=== PATIENT | female | born 1935 | race Caucasian/White ===

== ENCOUNTER → 2017-10-18 05:46 | Outpatient (REF) | payer MEDICARE, OTHER, SELFPAY | END | disposition home or self-care (01) | LOC: CVS 05:46 | PROVIDERS: Family Provider Family Medicine; PCP Family Medicine; Visit Provider Internal Medicine Cardiovascular Disease | DX: I47.1 Supraventricular tachycardia (principal); E78.5 Hyperlipidemia, unspecified; R55 Syncope and collapse | CPT/HCPCS: 93270 ==

== ENCOUNTER → 2018-03-06 15:02 | Outpatient (CLI) | payer MEDICARE, OTHER, SELFPAY ==
[2018-03-06 18:15] LABS: ALB/GLOB Ratio 0.8 RATIO (0.9-2.4); AST(SGOT) 15 U/L (15-37); Alanine Aminotransfer ALT/SGPT 19 U/L (13-56); Albumin, Serum 3.2 g/dL (3.2-5.0); Alkaline Phosphatase 104 U/L (45-117); Anion Gap 9 (5-15); BUN 20 mg/dL (7-18); BUN/Creat Ratio 25.6 RATIO (10-20); Calcium,Total 8.8 mg/dL (8.5-10.1); Chloride 105 mmol/L (98-107); Creatinine, Serum 0.78 mg/dL (0.55-1.02); EST Glomerular Filtration Rate 75 mL/min (>60); Est Glom Filt Rate - Afr Amer 91 mL/min (>60); Globulin 4.1 g/dL (2.2-4.2); Glucose 84 mg/dL (74-106); Potassium 4.3 mmol/L (3.5-5.1); Protein, Total 7.3 g/dL (6.4-8.2); Sodium Level 140 mmol/L (136-145); Thyroid Stim Hormone (TSH) 0.18 uIU/mL (0.358-3.74)
[2018-03-07 11:59] LABS: Vitamin D,25 Hydroxy 37.8 ng/mL (29.95-100.01)
== END ==
PROVIDERS: Family Provider Family Medicine; PCP Family Medicine; Visit Provider Internal Medicine Endocrinology, Diabetes & Metabolism
DX: E03.8 Other specified hypothyroidism (principal); E55.9 Vitamin D deficiency, unspecified
CPT/HCPCS: 36415; 80053; 82306; 84443

== ENCOUNTER → 2018-05-06 16:15 | Outpatient (CLI) | payer MEDICARE, OTHER, SELFPAY ==
--- NOTE | 2018-05-06 16:15 | DT_ITS ---
This patient was seen during an EMR downtime May 05, 2018 - May 12, 2018. This patient may have a combination of paper and electronic documentation or all paper documentation. All documentation is viewable within the e-chart portion of [facility] for each patient visit.
[2018-05-12 20:27] LABS: T4 Free Direct 1.04 ng/dL (0.76-1.46); Thyroid Stim Hormone (TSH) 1.36 uIU/mL (0.358-3.74)
== END ==
PROVIDERS: Family Provider Family Medicine; PCP Family Medicine; Visit Provider Internal Medicine Endocrinology, Diabetes & Metabolism
DX: E03.8 Other specified hypothyroidism (principal)
CPT/HCPCS: 36415; 84439; 84443

== ENCOUNTER → 2018-06-14 08:58 | Outpatient (CLI) | payer MEDICARE, OTHER, SELFPAY ==
--- NOTE | 2018-06-14 09:04 | CT_ITS ---
STUDY: CT MAXILLOFACIAL SINUSES REASON FOR EXAM: Female, 82 years old. Sinusitis RADIATION DOSAGE (If Supplied By Facility): CTDIvol = ( 29.38 ) mGy, DLP = ( 349.11 ) mGycm TECHNIQUE: The patient was scanned in a multi detector CT scanner. High resolution axial imaging was performed without the administration of intravenous contrast material. Sagittal and coronal images were reconstructed. Individualized dose optimization techniques were used for this CT. COMPARISON: None. FINDINGS: FRONTAL SINUSES: Clear. ETHMOIDAL SINUSES: There is a single small mucous retention cyst of the mid left ethmoid sinus with minimal ethmoid mucoperiosteal thickening. MAXILLARY SINUSES: There is mild mucoperiosteal thickening of the maxillary sinuses. SPHENOIDAL SINUSES: Mild mucoperiosteal thickening with some bubbly mucoid material in the left sphenoid sinus. The mastoid air cells and middle ear cavities are clear. Craniofacial osseous structures unremarkable. No acute intracranial process is evident in limited evaluation. The extra cranial soft tissues including orbital contents appear normal. CT/Sinus/Facial Bone IMPRESSION: Mild chronic paranasal sinus disease. Electronically Signed: Jose Wallace, at 10:55 EDT Tel , Service support ,
--- NOTE | 2018-06-14 09:04 | RAD_ITS ---
STUDY: X-RAY CHEST REASON FOR EXAM: Female, 82 years old. Cough TECHNIQUE: PA and lateral chest COMPARISON: 07/31/2017 FINDINGS: Pulmonary features of COPD/emphysema, stable. Lungs otherwise clear. No effusion or pneumothorax. Implanted cardiac monitoring device. No cardiomegaly. Normal mediastinal silhouette, toy and pleural margins. No acute osseous or upper abdominal process. Mild kyphoscoliosis. Osteopenia. 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 Electronically Signed: Jose Wallace, at 15:55 EDT Tel , Service support ,
== END ==
PROVIDERS: Family Provider Family Medicine; PCP Family Medicine; Visit Provider Specialist
DX: J32.9 Chronic sinusitis, unspecified (principal); J43.9 Emphysema, unspecified
CPT/HCPCS: 70486; 71046

== ENCOUNTER → 2018-06-20 08:14 | Outpatient (CLI) | payer MEDICARE, OTHER, SELFPAY ==
--- NOTE | 2018-06-20 08:16 | BI_ITS ---
MAMMOGRAPHY - BILATERAL SCREENING REASON FOR EXAM: Female, 82 years old. Routine annual screening examination. PERTINENT HISTORY: Grandmother with breast cancer. TECHNIQUE: Digital bilateral breast driss (3D mammographic acquisition) in the CC and MLO projections. 2-D mediolateral oblique (MLO) and craniocaudad (CC) views of both breasts were obtained. CAD: Full Field Digital Mammography with Computer Added Detection was performed. COMPARISON: Comparison is made with prior study dated June 18, 2017 and June 11, 2016. FINDINGS: Breast Composition: The breasts are almost entirely fatty. There are no dominant masses or suspicious calcifications. Stable asymmetry where more breast tissue is seen in the retroareolar region of the right breast as compared to the left side. This is unchanged. A loop recording device is seen along the deep inferior medial portion of the left breast. A tissue clip marker is once again seen in the superior lateral aspect of the left breast. No other significant abnormalities are identified. There has been no significant change since the prior study. BI/SCREENING MAMM (CAD), BILAT IMPRESSION: Stable bilateral screening mammogram. Yearly follow-up mammogram recommended. (A) ASSESSMENT CATEGORY: BIRADS Category 2: Benign. A letter regarding these results will be sent to the patient by the facility within 30 days. Approximately 10% of breast cancers are not detected by mammography. A normal mammogram should not delay biopsy of a clinically suspicious abnormality. [id number] Electronically Signed: Simeon Tipton MD at 10:48 EDT Tel [phone], Service support ,
== END ==
PROVIDERS: Family Provider Family Medicine; PCP Family Medicine; Visit Provider Family Medicine
DX: Z12.31 Encounter for screening mammogram for malignant neoplasm of breast (principal)
CPT/HCPCS: 77063; 77067

== ENCOUNTER 2018-10-14 06:14 | Day surgery (SDC) | payer MEDICARE, OTHER, SELFPAY ==
[2018-10-14] VITALS (7 sets, daily range): BP systolic 118–142; BP diastolic 64–87; PULSE 18–84; RESP 14–18; TEMP 36.4–36.8; O2SAT 96–100; BMI 26.2
--- NOTE | 2018-10-14 07:53 | OP.ENDO_ITS ---
Patient Name: Sachi Grace Procedure Date: 10/14/2018 7:31 AM Date of : 1935 Age: 83 Procedure: Colonoscopy Indications: High risk colon cancer surveillance: Personal history of colonic polyps, Family history of colon cancer in a first-degree relative Providers: Lon Tabares MD Referring MD: Lon Tabares MD Medicines: See the Anesthesia note for documentation of the administered medications Patient Profile: Last Colonoscopy: August 2013. Complications: No immediate complications. Procedure: Pre-Anesthesia Assessment: - Prior to the procedure, a History and Physical was performed, and patient medications and allergies were reviewed. The patient's tolerance of previous anesthesia was also reviewed. The risks and benefits of the procedure and the sedation options and risks were discussed with the patient. All questions were answered, and informed consent was obtained. Prior Anticoagulants: The patient has taken aspirin, last dose was day of procedure. ASA Grade Assessment: II - A patient with mild systemic disease. After reviewing the risks and benefits, the patient was deemed in satisfactory condition to undergo the procedure. After I obtained informed consent, the scope was passed under direct vision. Throughout the procedure, the patient's blood pressure, pulse, and oxygen saturations were monitored continuously. The pediatric colonoscope was introduced through the anus and advanced to the cecum, identified by appendiceal orifice and ileocecal valve. The colonoscopy was performed without difficulty. The patient tolerated the procedure well. The quality of the bowel preparation was good. The ileocecal valve was photographed. Scope In: 7:33:40 AM Scope Withdrawal Time 0 hours 5 minutes 58 seconds Scope Out: 7:43:59 AM Total Procedure Duration Time 0 hours 10 minutes 19 seconds Findings: Hemorrhoids were found on perianal exam. Multiple diverticula were found in the entire colon. The exam was otherwise without abnormality. Impression: - Hemorrhoids found on perianal exam. - Diverticulosis in the entire examined colon. - The examination was otherwise normal. - No specimens collected. Recommendation: - Discharge patient to home. - Resume previous diet. - Continue present medications. - Repeat colonoscopy in 5 years for surveillance. - Resume aspirin at prior dose today. Procedure Code(s): --- Professional --- 58308, Colonoscopy, flexible; diagnostic, including collection of specimen(s) by brushing or washing, when performed (separate procedure) Diagnosis Code(s): --- Professional --- Z86.010, Personal history of colonic polyps K64.9, Unspecified hemorrhoids Z80.0, Family history of malignant neoplasm of digestive organs K57.30, Diverticulosis of large intestine without perforation or abscess without bleeding CPT copyright 2017 [employer]. All rights reserved. The codes documented in this report are preliminary and upon motor and controls tester review may be revised to meet current compliance requirements. Lon Tabares MD 10/14/2018 7:53:20 AM This report has been signed electronically. Number of Addenda: 0 Note Initiated On: 10/14/2018 7:31 AM
== END 2018-10-14 08:27 | disposition home or self-care (01) ==
LOC: EN 06:15 → AC 06:16
PROVIDERS: Family Provider Family Medicine; PCP Family Medicine; Referring Provider Surgery; Visit Provider Surgery
PROC: 0DJD8ZZ Inspection of Lower Intestinal Tract, Via Natural or Artificial Opening Endoscopic (ICD-10-PCS; CPT 45378; principal; 2018-10-14 07:25)
DX: Z86.010 Personal history of colon polyps (principal); K57.30 Diverticulosis of large intestine without perforation or abscess without bleeding; K64.9 Unspecified hemorrhoids; Z80.0 Family history of malignant neoplasm of digestive organs; I47.1 Supraventricular tachycardia; E03.9 Hypothyroidism, unspecified; E78.2 Mixed hyperlipidemia; F41.9 Anxiety disorder, unspecified; Z90.49 Acquired absence of other specified parts of digestive tract; Z79.82 Long term (current) use of aspirin; Z79.899 Other long term (current) drug therapy
CPT/HCPCS: 45378; J7120

== ENCOUNTER 2019-05-15 09:15 | Day surgery (SDC) | payer MEDICARE, OTHER, SELFPAY ==
--- NOTE | 2019-05-15 09:22 | EKG12_ITS ---
Test Reason : PREOP Blood Pressure : / mmHG Vent. Rate : 072 BPM Atrial Rate : 072 BPM P-R Int : 216 ms QRS Dur : 084 ms QT Int : 400 ms P-R-T Axes : 067 045 053 degrees QTc Int : 438 ms Sinus rhythm with 1st degree A-V block Low voltage QRS Borderline ECG When compared with ECG of 09-MAY-2014 17:26, No significant change was found Confirmed by KATHLEEN HILL ([id number]), web editor EMILY DON ([id number]) on 05/18/2019 1:44:22 PM Referred By: Tony Ruffin Confirmed By:MITRA HILL
[2019-05-15 09:50] VITALS: BP 132/69; PULSE 70; RESP 16; TEMP 36.7; O2SAT 100; BMI 26.6
[2019-05-15 10:03] LABS: Anion Gap 7 (5-15); BUN 17 mg/dL (7-18); BUN/Creat Ratio 25.5 RATIO (10-20); Calcium,Total 9.2 mg/dL (8.5-10.1); Chloride 104 mmol/L (98-107); Creatinine, Serum 0.67 mg/dL (0.55-1.02); EST Glomerular Filtration Rate 90 mL/min (>60); Est Glom Filt Rate - Afr Amer 109 mL/min (>60); Estimated Creatinine Clearance 30.62 ml/min; Glucose 85 mg/dL (74-106); Potassium 3.9 mmol/L (3.5-5.1); Sodium Level 141 mmol/L (136-145)
--- NOTE | 2019-05-15 10:25 | CT_ITS ---
STUDY: CT MAXILLOFACIAL SINUSES REASON FOR EXAM: Female, 83 years old. Headache, facial pain RADIATION DOSAGE (If Supplied By Facility): CTDIvol = ( 33.06 ) mGy, DLP = ( 804.92 ) mGycm TECHNIQUE: The patient was scanned in a multi detector CT scanner. High resolution axial imaging was performed without the administration of intravenous contrast material. Sagittal and coronal images were reconstructed. Individualized dose optimization techniques were used for this CT. COMPARISON: 2011 FINDINGS: FRONTAL SINUSES: Normal aeration, without mucosal inflammatory disease. ETHMOIDAL SINUSES: Normal aeration, with moderate mucosal inflammatory disease MAXILLARY SINUSES: Normal aeration, without moderate mucosal inflammatory disease. SPHENOIDAL SINUSES: Normal aeration, without moderate mucosal inflammatory disease. There is patency of the bilateral maxillary infundibuli with normal uncinate processes, ethmoid bullae, and hiatus semilunaris. Normal bilateral middle turbinates. Normal bilateral inferior turbinates. Normal midline nasal septum. There is patency of the bilateral nasal airways. The visualized osseous structures are normal. The visualized bilateral orbital contents are normal. CT/Sinus/Facial Bone IMPRESSION: Diffuse mucosal thickening in the ethmoid, sphenoid, and maxillary sinuses. Electronically Signed: Chapin Jones MD at 11:54 EDT , Service support ,
--- NOTE | 2019-05-15 11:30 | ETH_PTH ---
PATIENT: MAIA PAYAN [place] [facility] [id number] AGE/SX: 83/F ROOM: RE05/15/[address]: Dr. Tony Ruffin MD : 1935 BED: DIS: 05/15/2019 SPEC #: [id number] RECD: 05/15/19 16:03 STATUS: GARTH ANALI #: [id number] MIRIAM: 05/15/19 11:[address]: Tony Ruffin DEPT: SURGICAL PATHOLOGY RECD BY: Cheng Ernst ENTERED: 05/18/19 10:11 SP TYPE: ETH TISS OTHR DR: Dr. Jesus Tabares III, MD Tissues: A - Ethmoid sinus, NOS B - Ethmoid sinus, NOS C - Ethmoid sinus, NOS Procedures: Decalcification bone/plaque Surgery Specimen Level IV HEADER OPERATION: Endoscopy with removal sphenoid sinus tissue, nasal sinus PRE-OP DIAGNOSIS: Chronic sphenoidal sinusitis; chronic ethmoidal sinusitis TISSUE SUBMITTED: A - Left sinus contents, B - Right sinus contents, C - Left and right sinus contents MICROSCOPIC DIAGNOSIS A. Left sinus contents: Blood, mucinous material, a few inflammatory cells and rare respiratory epithelial cells present. B. Right sinus contents: Fragments of respiratory mucosa with chronic inflammation, increased eosinophils and plasma cells, consistent with chronic sinusitis. Small fragment of bone present. C. Left and right sinus contents: Fragments of bone and respiratory mucosa with moderate chronic inflammation and increased plasma cells, consistent with chronic sinusitis. CE:bryan 05/21/19 MICROSCOPIC DESCRIPTION Slides are reviewed. GROSS DESCRIPTION A - Received in fixative is one container labeled with the patient's name and designated left sinus contents. The specimen consists of multiple irregular fragments of dark cortez soft tissue that in aggregate measure 5 x 3 x 3 cm. Top Waddy portions are submitted in four cassettes. B - Received in fixative is one container labeled with the patient's name and designated right sinus contents. The specimen consists of multiple irregular fragments of dark cortez soft tissue that in aggregate measure 8 x 3.5 x 2 cm. Top Waddy portions are submitted in two cassettes. C - Received in fixative is one container labeled with the patient's name and designated left and right sinus contents. The specimen consists of multiple irregular fragments of gritty cortez tissue that in aggregate measure 2 x 1 x 0.3 cm. The specimen is totally submitted in one cassette after decalcification. / AM:bryan 05/18/19 TC:3 CPT: 99195 x3, 78453
--- NOTE | 2019-05-15 13:12 | PCM.OPRPT ---
Problem List (1) Chronic maxillary sinusitis Status: Chronic (2) Chronic ethmoidal sinusitis Status: Chronic (3) Chronic sphenoidal sinusitis Status: Chronic (4) Decreased sense of taste Status: Chronic Report of Operation Date of Procedure: 05/15/19 Pre-Operative Diagnosis: Chronic sinusitis with polyposis and loss of sense of taste Post-Operative Diagnosis: same Surgery/Procedure Performed:: Bilateral endoscopic maxillary antrostomies, total ethmoidectomies, sphenoidotomies with removal of polyps Description of Surgical Findings:: Sachi is an 83-year-old female who presents with long-standing inability to taste food once it is placed in her mouth. She reports that she is able to smell normally. She is failed to have any improvement despite nasal steroids, saline rinses, and antibiotic therapy. Endoscopic evaluation showed large polyps from the posterior ethmoid and sphenoid sinuses which are felt to be contributing to the reduced airflow from the oral cavity resulting in her loss of sense of taste and the above procedures often hopes of improvement of these complaints. Procedure went as follows: The patient was identified in the preoperative holding and brought to the operating room, was placed under general anesthesia and intubated. When appropriate anesthesia was obtained, the navigational head gear was placed and confirmed to be operational in accordance with the manufacturing machine operator's directions. Pledgets soaked in a 50-50 mixture of oxymetazoline and 4% topical lidocaine were placed to decongest the nasal mucosa. These were then removed and beginning on the left side using a 0? endoscope the nasal cavity examined. The insertion of the middle turbinate and uncinate process was then injected with 1% lidocaine with 100,000 epinephrine for a total of 2 mL, and a similar injection was then carried on the contralateral side. Upon returning to the left side, the middle turbinate was medialized with a Geneva elevator. This allowed examination of the maxillary sinus ostia which was then probed with a double ball seeker. The uncinate process was then outfractured with a J curette and transected with a backbiting forceps. This was then removed with the microdebrider creating a wide maxillary antrostomy. The ethmoid bulla was then entered and a total ethmoidectomy was then carried out working posteriorly to anterior. There is no to be significant polyps posteriorly within the nasal cavity. Any polyps, scar, and mucous secretions were removed. The sphenoid sinus ostium was then identified and opened widely with any polyps, secretions, or other debris removed. Pledgets soaked in oxymetazoline were then placed for hemostasis and attention turned to the contralateral side. Similar procedure and findings were then carried out. Floseal hemostatic agent was then applied. An NG tube was then placed to decompress the stomach and the patient returned to anesthesia, revived and extubated having tolerated the procedure well. Type of Anesthesia:: General Anesthesiologist: Tony Vásquez Special Medications: none Specimen's removed: sinus contents and polyps Drains: none Estimated Blood Loss (mL): 300 mL Fluids Replaced: 800 mL Grafts/Implants Used: none - Complications none - Admit VTE Documentation VTE Present on Admission: No VTE Mechan Device Prophylaxis: SCD's VTE Pharm Prophylaxis ordered?: No
[2019-05-15 13:19] VITALS: BP 126/70; BP 132/69; PULSE 72; RESP 18; TEMP 35.9; O2SAT 99
--- NOTE | 2019-05-15 13:19 | DCINST_ITS ---
- Discharge Diagnoses Current Active Problems: Current Active and Chronic Problems (Last Reviewed 10/07/18 @ 14:16 by Nova Walter) Chronic maxillary sinusitis (Chronic) Chronic ethmoidal sinusitis (Chronic) Chronic sphenoidal sinusitis (Chronic) Decreased sense of taste (Chronic) You will use the following diet at home:: Regular Discharge Activity: Return to Normal Activity Call your doctor if your incision/area has: Sudden Increased Bleeding Call your doctor if you observe: Fever of 101 or Higher, Uncontrolled pain Allergies/Adverse Reactions: Allergies Sulfa (Sulfonamide Antibiotics) Allergy (Verified 05/13/19 15:46) Swelling codeine Adverse Reaction (Verified 05/13/19 15:46) Nausea hydrocodone bitartrate [From Vicodin] Adverse Reaction (Verified 05/13/19 15:46) Nausea oxycodone HCl [From Percocet] Adverse Reaction (Verified 05/13/19 15:46) Nausea tetracycline Adverse Reaction (Verified 05/13/19 15:46) Nausea/Vom/Diarrhea Dust & mold Adverse Reaction (Severe, Uncoded 10/14/18 06:31) Unknown Medications to take at Discharge RX: Acetaminophen [Tylenol] 500 mg PO Q4H PRN PRN 05/04/14 Albuterol Inhaler [Ventolin Hfa] 1 puff INHALATION Q4H PRN PRN 05/09/14 clonazepam 0.25 mg disintegrating tablet 0.25 mg PO DAILY tab 11/22/17 nortriptyline 25 mg capsule 30 mg PO QHS 11/22/17 vit C 250 mg-E 200 unit-zinc 40 mg-copper 1 bm-zhoffr-jhzhiz capsule 1 tab PO BID cap 11/22/17 fluorometholone 0.25 % eye drops,suspension 1 drp OPHTHALMIC Q6H PRN 01/31/18 levothyroxine 75 mcg tablet 75 mcg PO QDAY tab 01/31/18 polyethylene glycol 3350 17 gram/dose oral powder 17 g PO QDAY PRN 01/31/18 Mometasone Furoate [Asmanex 110 mcg Twisthaler] 110 mcg INHALATION DAILY 05/13/19 Primary Care Physician: Jesus Tabares III, MD [Primary Care Provider] - Test Results: Test results from this visit will be discussed in further detail at your follow- up appointment, if applicable. Please Follow Up With: Tony Ruffin MD When: 2 weeks
[2019-05-15 13:30] VITALS: BP 129/87; BP 132/69; PULSE 66; RESP 18; TEMP 36.1; O2SAT 96
[2019-05-15 13:44] VITALS: BP 114/80; BP 132/69; PULSE 67; RESP 18; TEMP 36.2; O2SAT 98
[2019-05-15 15:15] VITALS: BP 132/69; BP 139/57; PULSE 71; RESP 18; TEMP 36.4; O2SAT 100
[2019-05-15] MEDS: Acetaminophen 500 MG Tablet PO (15:47)
[2019-05-15 16:36] VITALS: BP 128/59; BP 132/69; PULSE 70; RESP 16; TEMP 36.6; O2SAT 100
== END 2019-05-15 16:38 | disposition home or self-care (01) ==
LOC: SDC 09:17 → AC 09:18
PROVIDERS: Family Provider Family Medicine; PCP Family Medicine; Referring Provider Otolaryngology; Visit Provider Otolaryngology
DX: J32.0 Chronic maxillary sinusitis (principal); J32.3 Chronic sphenoidal sinusitis; J32.2 Chronic ethmoidal sinusitis; J33.8 Other polyp of sinus; F41.9 Anxiety disorder, unspecified; R43.2 Parageusia; Z85.828 Personal history of other malignant neoplasm of skin
CPT/HCPCS: 31237; 31259; 70486; 80048; 88305; 88311; 93005; J7120; J2405

== ENCOUNTER → 2019-06-12 10:42 | Outpatient (CLI) | payer MEDICARE, OTHER, SELFPAY ==
[2019-05-15 09:50] VITALS: BMI 26.6
[2019-06-12 13:02] LABS: Anion Gap 6 (5-15); BUN 17 mg/dL (7-18); BUN/Creat Ratio 27.8 RATIO (10-20); Chloride 105 mmol/L (98-107); Creatinine, Serum 0.61 mg/dL (0.55-1.02); EST Glomerular Filtration Rate 99 mL/min (>60); Est Glom Filt Rate - Afr Amer 120 mL/min (>60); Glucose 77 mg/dL (74-106); Potassium 4.3 mmol/L (3.5-5.1); Sodium Level 138 mmol/L (136-145)
[2019-06-16 12:18] LABS: Nortriptyline Level 35 ng/mL (50-150)
== END ==
PROVIDERS: Family Provider Family Medicine; PCP Family Medicine; Referring Provider Psychiatry & Neurology Psychiatry; Visit Provider Psychiatry & Neurology Psychiatry
DX: R00.2 Palpitations (principal)
CPT/HCPCS: 36415; 80048; 80335

== ENCOUNTER → 2019-06-26 08:37 | Outpatient (CLI) | payer MEDICARE, OTHER, SELFPAY ==
--- NOTE | 2019-06-26 08:40 | BI_ITS ---
MAMMOGRAPHY - BILATERAL SCREENING 3-D TOMOSYNTHESIS REASON FOR EXAM: Female, 83 years old. Bilateral Screening 3-D tomosynthesis PERTINENT HISTORY: Grandmother with breast cancer.. TECHNIQUE: 2-D mammograms and 3-D Tomosynthesis of the breast (s) were performed. CAD was performed. COMPARISON: 06/20/2018 FINDINGS: The breast composition is almost entirely fat. Scattered benign calcifications are seen. No dense spiculated masses or suspicious microcalcifications are identified. No architectural distortion is identified. There is no skin thickening or retraction. There has been no significant change since the prior study. BI/SCREEN MAMM (CAD) W/FREEDOM BILAT IMPRESSION: No mammographic signs of malignancy. Routine yearly mammograms recommended. ASSESSMENT CATEGORY: BIRADS Category 1: Negative. A letter regarding these results will be sent to the patient by the facility within 30 days. FOLLOW UP RECOMMENDATION: Yearly follow up mammogram recommended. (A) Approximately 10% of breast cancers are not detected by mammography. A normal mammogram should not delay biopsy of a clinically suspicious abnormality. Electronically Signed: Chapin Jones MD at 9:59 EDT , Service support ,
== END ==
PROVIDERS: Family Provider Family Medicine; PCP Family Medicine; Referring Provider Family Medicine; Visit Provider Family Medicine
DX: Z12.31 Encounter for screening mammogram for malignant neoplasm of breast (principal); Z80.3 Family history of malignant neoplasm of breast
CPT/HCPCS: 77063; 77067

== ENCOUNTER 2020-04-04 09:54 | Outpatient (RCR) | payer MEDICARE, OTHER, SELFPAY ==
--- NOTE | 2020-04-04 11:25 | HP.PTEVAL ---
Patient's Visit Information MAIA PAYAN is a 84 year old F referred to Physical Therapy by Tony Ruffin MD with a diagnosis of BPPV LEFT. Date of Evaluation: 04/04/20 Physical Therapist: AILEEN Davidson - Visit Plan Frequency: 1x/Week Duration: 4 Weeks Plan: 1X/ week for advancement of VOR exercises, balance exercises if needed, habituation exercises and re check hallpike if needed with HEP - Subjective Pt has been dizzy and nauseated for 3 weeks. She got up one morning and was dizzy. She went to Dr Ruffin and he thought it was crystals and he gave her some exercises and it made her worse so she stopped after 5 days. He then sent her to PT. Her eyes are bothering her... she gets dizzy watching action on the TV, playing Project Frog on the computer and reading. SHe is on no meds right now. She has asthma and hard to breathe with her mask on. She seldom has a YIN. Sunlight bothers her eyes. Pt reports that he balance is ok. She is nauseated all the time. She did faint 2 months ago but not related to this. He bed does not bother her at all with rolling. When she goes and wipes her butt to the L she gets dizzy. SHe has stiff neck. - Objective -Hallpike R and L for nystagmus or dizziness. pt had upset stomach the entire time. Smooth pursuit.... could only follow on first attempt for about 15 seconds and then had a hard time focusing on the pen tip and increase nausea. VOR X 1 in sitting pt could shake her head slowly horizontal for about 10 seconds and then she got nauseated. On second attempt is was 15 seconds... Third attempt 25 seconds with not feeling any issue with her stomach..... - Goals Goal 1:: I HEP Goal Time Frame: 4-6 Weeks Goal 2:: Be able to complete VOR X 1 in standing without any stomach upset. Goal Time Frame: 4-6 Weeks Goal 3:: Be able to walk and turn head X 4 directions without any nausea Goal Time Frame: 4-6 Weeks Goal 4:: abolish dizziness and feeling of nausea Goal Time Frame: 4-6 Weeks - Rehabilitation Potential Rehabilitation Potential: Good - Anticipated Interventions Patient/Client Instruction: Educate patient on: Condition, Plan of Care For the Purpose of:: To improve muscle performance and motor function, To improve ability to perform ADL's, To increase tolerance to activity/condition/position, To improve performance and independence with ADL's, To improve gait and locomotor functions Therapeutic Exercise to Include: Strength training, Balance training, Gait and locomotor training, Neuromotor development, Active ROM For the Purpose of:: To decrease pain, To increase ROM, To improve nutrient delivery to tissue, To improve muscle performance and motor function, To improve ability to perform ADL's, To improve balance, To improve safety with gait Thank you for the opportunity to evaluate your patient. For Medicare and Medicare HMO plans, please review the plan of care and approve it. It will need to be FAXED BACK to us at [phone] for Medicare purposes. For Medicare only, by signing this I certify the plan of care. Please let me know if there are questions or concerns regarding this plan of care. Physician Signature: Date:
== END 2020-04-04 19:00 | disposition home or self-care (01) ==
LOC: PT 09:54
PROVIDERS: PCP Family Medicine; Referring Provider Otolaryngology; Visit Provider Otolaryngology
DX: H81.12 Benign paroxysmal vertigo, left ear (principal)
CPT/HCPCS: 97161

== ENCOUNTER → 2020-04-22 12:34 | Outpatient (CLI) | payer MEDICARE, OTHER, SELFPAY ==
[2020-04-22 15:59] LABS: Vitamin D,25 Hydroxy 27.7 ng/mL
[2020-04-22 16:01] LABS: ALB/GLOB Ratio 0.7 RATIO (0.9-2.4); AST(SGOT) 21 U/L (15-37); Alanine Aminotransfer ALT/SGPT 18 U/L (13-56); Albumin, Serum 3.1 g/dL (3.2-5.0); Alkaline Phosphatase 107 U/L (45-117); Anion Gap 7 (5-15); BUN 13 mg/dL (7-18); BUN/Creat Ratio 20.9 RATIO (10-20); Calcium,Total 9.1 mg/dL (8.5-10.1); Chloride 104 mmol/L (98-107); Creatinine, Serum 0.62 mg/dL (0.55-1.02); EST Glomerular Filtration Rate 97 mL/min (>60); Est Glom Filt Rate - Afr Amer 117 mL/min (>60); Globulin 4.2 g/dL (2.2-4.2); Glucose 78 mg/dL (74-106); Protein, Total 7.3 g/dL (6.4-8.2); Sodium Level 138 mmol/L (136-145); Thyroid Stim Hormone (TSH) 1.31 uIU/mL (0.358-3.74)
== END ==
PROVIDERS: PCP Family Medicine; Referring Provider Internal Medicine Endocrinology, Diabetes & Metabolism; Visit Provider Internal Medicine Endocrinology, Diabetes & Metabolism
DX: E03.8 Other specified hypothyroidism (principal); E55.9 Vitamin D deficiency, unspecified
CPT/HCPCS: 36415; 80053; 82306; 84443

== ENCOUNTER → 2020-05-31 17:05 | Outpatient (CLI) | payer MEDICARE, OTHER, SELFPAY ==
--- NOTE | 2020-05-31 17:08 | RAD_ITS ---
STUDY: X-RAY CHEST REASON FOR EXAM: Female, 84 years old. dermatitis TECHNIQUE: Frontal and lateral views of the chest. COMPARISON: 06/14/2018 FINDINGS: Cardiac monitoring device on the left. The lungs are clear and expanded. There is no demonstrated pleural abnormality. Normal size heart. Normal mediastinum and toy. Normal visualized pulmonary arteries. Normal visualized aortic arch and descending thoracic aorta. Normal visualized thoracic spine. Normal visualized ribs, clavicles, and shoulders. There is no demonstrated abnormality of the visualized soft tissue structures of the upper abdomen. RAD/Chest PA and Lateral IMPRESSION: No acute pulmonary findings. Electronically Signed: Graham Olson MD at 19:01 EDT Tel , Service support ,
[2020-05-31 17:12] LABS: Bacteria 0 SEEN /hpf (None Seen); Mucous, Urine 0 SEEN /hpf (<or=2+)
[2020-05-31 18:00] LABS: Color, Urine Yellow (Yellow); Glucose, Dipstick Normal (Normal); Ketone-Dipstick Negative (Negative); Leukocyte Esterase-Dipstick 100 /ul (Negative); Nitrite-Dipstick Negative (Negative); Occult Blood-Urine 10 /ul (Negative); Protein-Dipstick Negative (Negative); Urine Bilirubin Dipstick Negative (Negative); Urine Clarity Sl. Cloudy (Clear); Urine Urobilinogen Normal (Normal)
[2020-05-31 18:18] LABS: Red Blood Cells-Urine 0-5 SEEN /hpf (0-5); White Blood Cells 10-25 SEEN /hpf (0-5)
[2020-05-31 18:19] LABS: Squamous Epithelial Cells - UA 0-5 SEEN /hpf (5-10)
[2020-06-05 09:07] LABS: Immunoglobulin A 380 mg/dL (64-422); Immunoglobulin G 975 mg/dL (586-1602); Immunoglobulin M 66 mg/dL (26-217); PROEL- A/G Ratio 1.1 (0.7-1.7); PROEL- Albumin 3.7 g/dL (2.9-4.4); PROEL- Alpha-1 Globulin 0.3 g/dL (0.0-0.4); PROEL- Alpha-2 Globulin 0.9 g/dL (0.4-1.0); PROEL- Beta Globulin 1.3 g/dL (0.7-1.3); PROEL- Globulin, Total 3.5 g/dL (2.2-3.9); PROEL- TOTAL PROTEIN 7.2 g/dL (6.0-8.5)
[2020-06-05 23:45] LABS: Immunoglobulin E 41 IU/mL (6-495)
== END ==
PROVIDERS: PCP Family Medicine; Referring Provider Dermatology Pediatric Dermatology; Visit Provider Dermatology Pediatric Dermatology
DX: L30.9 Dermatitis, unspecified (principal)
CPT/HCPCS: 36415; 71046; 81001; 82784; 82785; 84165

== ENCOUNTER → 2020-06-28 13:52 | Outpatient (CLI) | payer MEDICARE, OTHER, SELFPAY ==
--- NOTE | 2020-06-28 13:56 | BI_ITS ---
MAMMOGRAPHY - BILATERAL SCREENING REASON FOR EXAM: Female, 84 years old. Routine annual screening examination. PERTINENT HISTORY: Grandmother with breast cancer. Remote left stereotactic breast biopsy. TECHNIQUE: Digital bilateral breast freedom (3D mammographic acquisition) in the CC and MLO projections. 2-D mediolateral oblique (MLO) and craniocaudad (CC) views of both breasts were obtained. CAD: Full Field Digital Mammography with Computer Added Detection was performed. COMPARISON: Comparison is made with prior study dated 06-26-19 and 06-20-18. FINDINGS: Breast Composition: The breasts are almost entirely fatty. There are no dominant masses or suspicious calcifications. Stable asymmetric breast tissue where more breast tissue is seen in the retroareolar region of the right breast as compared to the left side. A loop recording device is once again seen overlying the inferior medial portion of the left breast. No other significant abnormalities are identified. There has been no significant change since the prior study. BI/SCREEN MAMM (CAD) W/FREEDOM BILAT IMPRESSION: Stable bilateral screening mammogram. Yearly follow-up mammogram recommended. (A) ASSESSMENT CATEGORY: BIRADS Category 2: Benign. A letter regarding these results will be sent to the patient by the facility within 30 days. Approximately 10% of breast cancers are not detected by mammography. A normal mammogram should not delay biopsy of a clinically suspicious abnormality. [id number] Electronically Signed: Simeon Tipton, at 15:04 EDT , Service support ,
== END ==
PROVIDERS: PCP Family Medicine; Referring Provider Registered Nurse; Visit Provider Family Medicine
DX: Z12.31 Encounter for screening mammogram for malignant neoplasm of breast (principal)
CPT/HCPCS: 77063; 77067

== ENCOUNTER 2020-07-18 20:34 | Emergency (ER) | payer MEDICARE, OTHER, SELFPAY ==
[2020-07-18 20:35] VITALS: BP 156/77; PULSE 84; RESP 17; TEMP 37.1; O2SAT 98; BMI 25.4
--- NOTE | 2020-07-18 21:25 | ED.VIS.GEN ---
History of Present Illness Chief Complaint: Abd Pain Narrative: 84-year-old female presenting for evaluation of left-sided abdominal pain. She noticed that there was a protruding area in her stomach on this left side since April. She states that it does not ever really go back in. She states that today after eating she had pain in this area. It has not stopped since then. Patient states she is making normal urine and stool. She is eating and drinking normally. She is not had any fever, chills, nausea, vomiting. She states that her only medical problems are anxiety and low thyroid. - Past Medical History (1) Syncope and collapse Status: Chronic (2) Chronic sphenoidal sinusitis Status: Chronic Past Medical History - Allergies and Home Meds Allergies/Adverse Reactions: Allergies Sulfa (Sulfonamide Antibiotics) Allergy (Verified 07/18/20 20:38) Swelling codeine Adverse Reaction (Verified 07/18/20 20:38) Nausea hydrocodone bitartrate [From Vicodin] Adverse Reaction (Verified 07/18/20 20:38) Nausea oxycodone HCl [From Percocet] Adverse Reaction (Verified 07/18/20 20:38) Nausea tetracycline Adverse Reaction (Verified 07/18/20 20:38) Nausea/Vom/Diarrhea Dust & mold Adverse Reaction (Severe, Uncoded 07/18/20 20:38) Unknown Primary Care Physician: Aiyana Tabares III, MD [Primary Care Provider] - Prior records reviewed: Yes Past Medical History: - - Reviewed Surgical History: noncontributory Smoking Status: Never smoker Review of Systems General: Denies: Chills, Fever, Sweats Eyes: Denies: Visual changes - bilaterally, Diplopia ENT: Denies: Rhinorrhea, Sore throat Cardiovascular: Denies: Chest pain, Palpitations Respiratory: Denies: Dyspnea, Cough, Dyspnea on exertion Gastrointestinal: Reports: Abdominal pain, - - Left-sided abdominal wall mass.. Denies: Nausea, Vomiting, Diarrhea, Melena, Hematochezia Genitourinary: Denies: Dysuria, Hematuria, Frequency Musculoskeletal: Denies: Back pain, Extremity Pain Skin: Denies: Rash, Wounds Neurological: Denies: Headache, Weakness, Numbness Physical Exam Vital Signs/Narrative: Vital Signs Temp Pulse Resp BP Pulse Ox 07/18/20 20:35 98.7 F 84 17 156/77 H 98 Inital Vital Signs reviewed: Yes General: Well nourished, Well developed Head: Normocephalic Eyes: Perrl, EOMI ENT: Moist mucous membranes Cardiovascular: Regular rate, Regular rhythm Respiratory: No distress Abdomen: Soft, - - Tenderness to palpation mid and left upper abdomen. Abdomen is non-peritoneal. There is no other tenderness elicited. Extremities: No edema Skin: Normal color, No rash Neurological: Alert, Oriented x3 Psychological: Normal affect Diagnostic/Tx/Re-eval Laboratory Data 07/18/20 07/18/20 07/18/20 20:46 20:46 21:45 WBC 9.9 RBC 4.45 Hgb 12.5 Hct 39.6 MCV 89.0 MCH 28.1 MCHC 31.6 L RDW Std Deviation 52.4 H RDW Coeff of Collin 16.2 H Plt Count 374 MPV 10.3 Immature Gran % (Auto) 0.400 Neut % (Auto) 73.9 H Lymph % (Auto) 7.1 L Wheeler % (Auto) 12.9 H Eos % (Auto) 5.1 H Baso % (Auto) 0.6 Absolute Neuts (auto) 7.3 Absolute Lymphs (auto) 0.70 L Nucleated RBC % 0 Sodium 140 Potassium 4.1 Chloride 105 Carbon Dioxide 31.0 Anion Gap 4 L BUN 19 H Creatinine 0.75 Estim Creat Clear Calc 31.60 Est GFR (MDRD) Af Amer 94 Est GFR (MDRD) Non-Af 78 BUN/Creatinine Ratio 25.2 H Glucose 101 Lactic Acid 1.3 Calcium 9.3 Total Bilirubin 0.40 AST 19 ALT 20 Alkaline Phosphatase 114 Total Protein 7.8 Albumin 3.4 Globulin 4.4 H Albumin/Globulin Ratio 0.8 L Urine Color Urine Clarity Urine pH Ur Specific [place] Urine Protein Urine Glucose (UA) Urine Ketones Urine Occult Blood Urine Nitrite Urine Bilirubin Urine Urobilinogen Ur Leukocyte Esterase Urine RBC Urine WBC Ur Squamous Epith Cells Urine Bacteria Urine Mucus 07/18/20 22:00 WBC RBC Hgb Hct MCV MCH MCHC RDW Std Deviation RDW Coeff of Collin Plt Count MPV Immature Gran % (Auto) Neut % (Auto) Lymph % (Auto) Wheeler % (Auto) Eos % (Auto) Baso % (Auto) Absolute Neuts (auto) Absolute Lymphs (auto) Nucleated RBC % Sodium Potassium Chloride Carbon Dioxide Anion Gap BUN Creatinine Estim Creat Clear Calc Est GFR (MDRD) Af Amer Est GFR (MDRD) Non-Af BUN/Creatinine Ratio Glucose Lactic Acid Calcium Total Bilirubin AST ALT Alkaline Phosphatase Total Protein Albumin Globulin Albumin/Globulin Ratio Urine Color Straw Urine Clarity Clear Urine pH 8.0 Ur Specific [place] 1.015 Urine Protein Negative Urine Glucose (UA) Normal Urine Ketones Negative Urine Occult Blood 10 H Urine Nitrite Negative Urine Bilirubin Negative Urine Urobilinogen Normal Ur Leukocyte Esterase 100 H Urine RBC 0-5 SEEN Urine WBC 0-5 SEEN Ur Squamous Epith Cells 0 SEEN Urine Bacteria 1+ Urine Mucus 0 SEEN - Medical Decision Making Was seen and evaluated for abdominal pain. She believes she might have a hernia. She is tender in the region she is pointing to although I do not feel a aiyana hernia. Patient's lab work is all normal. Lactic acid is negative. Patient given morphine and Zofran for pain and nausea. She was then given Ativan to go to CT due to anxiety. CT scan is pending currently. Patient will be signed out to coming ED physician for follow-up on CT. Impression: 1. Abdominal pain ED Disposition - Plan for ED Patient: Referrals: Aiyana Tabares III, MD [Primary Care Provider] -
--- NOTE | 2020-07-18 21:36 | CT_ITS ---
HISTORY: ABD PAIN RELATED TO HERNIA, HX APPY, COLON SX EXAMINATION: CT Abdomen And Pelvis W/ Contrast Injection TECHNIQUE: Helically acquired images were obtained of the abdomen and pelvis following IV contrast. A radiation dose optimization technique was used for this scan. IV Contrast dosage and agent: 100mL [id number] Oral contrast: Yes COMPARISON: None FINDINGS: Lower thorax: Clear. No pleural effusion or pericardial effusion. No radiopaque gallstones and no biliary dilatation. Normal liver, spleen, and pancreas. Both kidneys appear normal for age. No hydronephrosis or pyelonephritis. The adrenal glands are not enlarged. Abdominal aorta is atherosclerotic and normal in caliber. No ascites or retroperitoneal lymph node enlargement. GI tract: No obstruction. Constipation pattern with colonic large stool content. Nonvisualization of the appendix. Pelvis: Atrophic uterus. Poor distention of the urinary bladder. No free fluid or lymph node enlargement. Bilateral small fat-containing inguinal hernias. Bones: No acute osseous abnormality. Benign hemangiomas of the L1 and L3 vertebrae. Lumbar spine multilevel degenerative disc disease and facet joint arthritis. Ventral abdominal Wall: Upper midline abdomen small fat-containing ventral wall hernia. CT/Abdomen/Pelvis WITH Contrast IMPRESSION: 1. Constipation pattern. No acute abdominal disease identified. 2. Bilateral small fat-containing inguinal hernias together with small fat-containing hernia of the upper midline ventral wall. 3. Additional nonacute findings, as above. Individualized dose optimization techniques were used for this CT. at 0049 Reported and signed by: Bharath Benito MD Electronically Signed: Bharath Benito, at 0:48 EDT Tel , Service support ,
[2020-07-18] MEDS: Morphine 2 MG/ML Syringe IV (21:47)
[2020-07-18] MEDS: Ondansetron 4 MG/2 ML Vial IV (21:47)
[2020-07-18 21:59] LABS: Absolute Neutrophil Count 7.3 X10^3/uL (2.0-7.7); Basophil# 0.06 X10^3/uL; Basophil% 0.6 % (0-1); Eosinophils% 5.1 % (0-5); Hematocrit 39.6 % (37-47); Hemoglobin 12.5 g/dL (12.0-15.0); Lymphocyte % 7.1 % (19-41); Mean Corp Hgb Conc 31.6 g/dL (32-36); Mean Corpuscular Hgb 28.1 pg (27.0-32.0); Mean Platelet Vol. 10.3 fl (6.2-12.0); Monocyte# 1.27 X10^3/uL; Monocyte% 12.9 % (0-10); NRBC Flagged by Analyzer 0 % (0-5); Neutrophil # 7.28 X10^3/uL (2.7-7.7); Neutrophil % 73.9 % (47-70); Platelet Count 374 K/mm3 (150-450); RBC Distribution Width CV 16.2 % (11.6-14.6); RBC Distribution Width SD 52.4 fl (35.1-43.9); Red Blood Count 4.45 M/mm3 (4.2-5.4); White Blood Count 9.9 K/mm3 (4.4-11.0)
[2020-07-18 22:03] LABS: ALB/GLOB Ratio 0.8 RATIO (0.9-2.4); AST(SGOT) 19 U/L (15-37); Alanine Aminotransfer ALT/SGPT 20 U/L (13-56); Albumin, Serum 3.4 g/dL (3.2-5.0); Alkaline Phosphatase 114 U/L (45-117); Anion Gap 4 (5-15); BUN 19 mg/dL (7-18); BUN/Creat Ratio 25.2 RATIO (10-20); Calcium,Total 9.3 mg/dL (8.5-10.1); Chloride 105 mmol/L (98-107); Creatinine, Serum 0.75 mg/dL (0.55-1.02); EST Glomerular Filtration Rate 78 mL/min (>60); Est Glom Filt Rate - Afr Amer 94 mL/min (>60); Globulin 4.4 g/dL (2.2-4.2); Glucose 101 mg/dL (74-106); Potassium 4.1 mmol/L (3.5-5.1); Protein, Total 7.8 g/dL (6.4-8.2); Sodium Level 140 mmol/L (136-145)
[2020-07-18 22:03] LABS: Mucous, Urine 0 SEEN /hpf (<or=2+); Squamous Epithelial Cells - UA 0 SEEN /hpf (5-10)
[2020-07-18 22:05] LABS: Color, Urine Straw (Yellow); Glucose, Dipstick Normal (Normal); Ketone-Dipstick Negative (Negative); Leukocyte Esterase-Dipstick 100 /ul (Negative); Nitrite-Dipstick Negative (Negative); Occult Blood-Urine 10 /ul (Negative); Protein-Dipstick Negative (Negative); Specific Gravity, Urine 1.015 (1.002-1.030); Urine Bilirubin Dipstick Negative (Negative); Urine Clarity Clear (Clear); Urine Urobilinogen Normal (Normal)
[2020-07-18 22:13] LABS: Bacteria 1+ /hpf (None Seen); Red Blood Cells-Urine 0-5 SEEN /hpf (0-5); White Blood Cells 0-5 SEEN /hpf (0-5)
[2020-07-18 22:36] LABS: Lactic Acid 1.3 mmol/L (0.4-1.9)
[2020-07-18] MEDS: LORazepam 2 MG/ML Syringe 0.5 MG IV (23:17)
--- NOTE | 2020-07-19 01:06 | ED.VIS.GEN ---
History of Present Illness Chief Complaint: Abd Pain Past Medical History - Allergies and Home Meds Allergies/Adverse Reactions: Allergies Sulfa (Sulfonamide Antibiotics) Allergy (Verified 07/18/20 20:38) Swelling codeine Adverse Reaction (Verified 07/18/20 20:38) Nausea hydrocodone bitartrate [From Vicodin] Adverse Reaction (Verified 07/18/20 20:38) Nausea oxycodone HCl [From Percocet] Adverse Reaction (Verified 07/18/20 20:38) Nausea tetracycline Adverse Reaction (Verified 07/18/20 20:38) Nausea/Vom/Diarrhea Dust & mold Adverse Reaction (Severe, Uncoded 07/18/20 20:38) Unknown Primary Care Physician: Jesus Tabares III, MD [Primary Care Provider] - Surgical History: noncontributory Smoking Status: Never smoker ED Disposition - Plan for ED Patient: Disposition: Home or Assisted Living Diagnosis: Hernia Instructions: What Is a Hiatal Hernia? Referrals: Lon Tabares MD [STAFF PHYSICIAN] - Jesus Tabares III, MD [Primary Care Provider] -
[2020-07-19 01:19] VITALS: BP 145/80; PULSE 72; RESP 16; O2SAT 98
== END 2020-07-19 01:20 | disposition home or self-care (01) ==
PROVIDERS: Student in an Organized Health Care Education/Training Program; Emergency Provider Emergency Medicine; PCP Family Medicine
DX: R10.9 Unspecified abdominal pain (principal)
CPT/HCPCS: 74177; 80053; 81001; 83605; 85025; 96374; 96375; 99283; Q9967; A4216; J2405

== ENCOUNTER → 2020-08-02 07:40 | Outpatient (CLI) | payer MEDICARE, OTHER, SELFPAY ==
[2020-07-26 14:45] VITALS: BMI 25.4
[2020-08-02 10:15] LABS: Hematocrit 36.6 % (37-47); Hemoglobin 11.8 g/dL (12.0-15.0); Mean Corp Hgb Conc 32.2 g/dL (32-36); Mean Corpuscular Hgb 29.1 pg (27.0-32.0); Mean Corpuscular Volume 90.1 fL (81-99); Mean Platelet Vol. 10.3 fl (6.2-12.0); Platelet Count 384 K/mm3 (150-450); RBC Distribution Width CV 16.8 % (11.6-14.6); RBC Distribution Width SD 54.9 fl (35.1-43.9); Red Blood Count 4.06 M/mm3 (4.2-5.4); White Blood Count 6.4 K/mm3 (4.4-11.0)
[2020-08-02 10:46] LABS: Anion Gap 4 (5-15); BUN 16 mg/dL (7-18); BUN/Creat Ratio 24.7 RATIO (10-20); Calcium,Total 8.9 mg/dL (8.5-10.1); Chloride 105 mmol/L (98-107); Creatinine, Serum 0.65 mg/dL (0.55-1.02); EST Glomerular Filtration Rate 92 mL/min (>60); Est Glom Filt Rate - Afr Amer 112 mL/min (>60); Glucose 71 mg/dL (74-106); Potassium 3.9 mmol/L (3.5-5.1); Sodium Level 138 mmol/L (136-145)
[2020-08-05 04:20] LABS: Nortriptyline Level 35 ng/mL (50-150)
== END ==
PROVIDERS: PCP Family Medicine; Referring Provider Psychiatry & Neurology Psychiatry; Visit Provider Psychiatry & Neurology Psychiatry
DX: Z79.899 Other long term (current) drug therapy (principal)
CPT/HCPCS: 36415; 80048; 80335; 85027

== ENCOUNTER → 2020-08-22 06:41 | Outpatient (CLI) | payer MEDICARE, OTHER, SELFPAY ==
[2020-08-10 13:31] VITALS: BMI 25.5
--- NOTE | 2020-08-22 06:41 | ECHOD_ITS ---
Reason For Study: MVP Procedure This was a 2D Doppler, Color Flow transthoracic echocardiogram. The exam was of adequate technical quality. Exam performed in department. Left Ventricle Normal LV size. Sigmoid septum. Left ventricular systolic function is normal. The estimated ejection fraction is 65 %. No evidence for diastolic dysfunction. No regional wall motion abnormalities noted. Right Ventricle Normal RV size. Normal systolic function. Atria The left atrium is mildly enlarged. Normal right atrium. No doppler evidence for ASD. Mitral Valve There is no mitral annular calcification. Anterior leaflet diffuse mitral valve thickening. The mitral valve chordae are thickened and/or calcified. Mild mitral valve prolapse. Mild (1+) eccentric mitral valve insufficiency. Tricuspid Valve Mild diffuse thickening of the tricuspid valve. Mild to moderate (1-2+) tricuspid valve insufficiency. Right ventricular systolic pressure estimated to be 39 mmHg. Aortic Valve Trisinus/trileaflet aortic valve. Mild diffuse aortic valve thickening. Pulmonic Valve The pulmonic valve is not well visualized. Trivial pulmonic valve insufficiency. Great Vessels Normal sized aortic root. Pericardium/Pleural No pericardial effusion. MMode/2D Measurements & Calculations LVIDd: 4.1 cm IVSd: 0.57 cm Ao root diam: 3.6 cm LVIDs: 2.7 cm LVPWd: 0.63 cm RVDd: 3.5 cm FS: 33.5 % LAV(MOD-bp): 48.4 ml LA A4 area: 13.8 cm2 LA dimension(2D): 3.6 cm LAV(MOD-bp) Indexed: 30.3 ml/m2 LAV(MOD-sp2): 53.4 ml LAV(MOD-sp4): 36.9 ml RA A4 area: 13.9 cm2 Time Measurements MV dec time: 0.22 sec Doppler Measurements & Calculations MV E max dangelo: 85.9 cm/sec Lat Peak E' Dangelo: 9.9 cm/sec Med Peak E' Dangelo: 7.9 cm/sec MV A max dangelo: 100.6 cm/sec E/E' lat: 8.7 E/E' med: 10.9 MV E/A: 0.85 MV V2 max: 113.7 cm/sec Ao V2 max: 155.4 cm/sec LV V1 max: 85.2 cm/sec MV max P.2 mmHg Ao max P.7 mmHg LV V1 max P.9 mmHg MV V2 mean: 73.5 cm/sec MV mean P.4 mmHg MV V2 VTI: 34.0 cm TR max dangelo: 299.3 cm/sec MV P1/2t-pr_phl: 54.8 msec TR max P.8 mmHg Interpretation Summary Left ventricular systolic function is normal. The estimated ejection fraction is 65 %. Sigmoid septum. The left atrium is mildly enlarged. Anterior leaflet diffuse mitral valve thickening. The mitral valve chordae are thickened and/or calcified. Mild mitral valve prolapse. Mild (1+) eccentric mitral valve insufficiency. Mild diffuse thickening of the tricuspid valve. Mild to moderate (1-2+) tricuspid valve insufficiency. Mild diffuse aortic valve thickening. Trivial pulmonic valve insufficiency. Right ventricular systolic pressure estimated to be 39 mmHg. No evidence for diastolic dysfunction. Ordering Physician: Nawaf Jurado Referring Physician: DEMETRIS PETERS III Performed By: Dottie Calloway, HUGO, RVT
== END ==
PROVIDERS: PCP Family Medicine; Referring Provider Internal Medicine Cardiovascular Disease; Visit Provider Internal Medicine Cardiovascular Disease
DX: Z01.818 Encounter for other preprocedural examination (principal); I34.1 Nonrheumatic mitral (valve) prolapse; I47.1 Supraventricular tachycardia; E78.5 Hyperlipidemia, unspecified; R55 Syncope and collapse; R06.09 Other forms of dyspnea; Z98.890 Other specified postprocedural states
CPT/HCPCS: 93306

== ENCOUNTER → 2020-08-31 12:23 | Outpatient (CLI) | payer MEDICARE, OTHER, SELFPAY ==
[2020-08-10 13:31] VITALS: BMI 25.5
--- NOTE | 2020-08-31 12:24 | STE_ITS ---
Reason For Study: PREOP EVALUATION Stress Results Protocol: Dobutamine Stress Protocol Maximum Predicted HR: 135 bpm Target HR: 115 bpm % Maximum Predicted HR: 87 % DurationHeart Rate Stage (mm:ss) (bpm) BP Dose BASELINE 76 143/80 STAGE 1 3:00 81 135/7510.00 STAGE 2 3:41 112 141/6920.00 STAGE 3 1:17 118 / 30.00 RECOVERY 89 137/78 Stress Duration: 7:58 mm:ss Maximum Stress HR: 118 bpm Baseline Echocardiogram Findings Stress Echo Wall motion Data Resting WM Intermediate WM Stress WM Interpretation Summary Dobutamine stress echocardiogram. Preoperative evaluation. 85-year-old lady with a history of SVT ablation. Rest protocol. Resting EKG demonstrates normal sinus rhythm with a rate of 80 bpm normal intervals are noted resting blood pressure is 143/80 mmHg right bundle branch block is noted. Dobutamine was infused starting at 10 mcg/kg/min increasing in 3-minute increments to a peak of 30 mcg/kg/min. The maximum heart rate attained was 118 bpm which was 87% of max impacted heart rate the maximum workload was 1 metabolic equivalent. The patient maintained sinus rhythm throughout the recording. At rest there were no ST or T wave changes noted to suggest ischemia at peak infusion nonspecific ST-T wave changes were noted. The peak blood pressure was 141/69. No clinical angina was noted no arrhythmias were noted. Stress echocardiographic images. The resting echocardiogram demonstrated an ejection fraction of 60%. During low dose infusion there was reduction in low ventricular cavity size and at peak infusion there was near cavity obliteration. The peak ejection fraction was approximately 75%. There was thickening of all mcgrath with reduction in left ventricular cavity size. No angina was noted. The above is not suggestive of ischemia. Conclusion: Normal pharmacologic dobutamine stress echo with no evidence of ischemia. Right bundle branch block noted. Ordering Physician: Nawaf Jurado Referring Physician: Nawaf Jurado Performed By: Leesa Gunderson, HUGO
== END ==
PROVIDERS: PCP Family Medicine; Referring Provider Internal Medicine Cardiovascular Disease; Visit Provider Internal Medicine Cardiovascular Disease
DX: Z01.818 Encounter for other preprocedural examination (principal); R06.00 Dyspnea, unspecified; R55 Syncope and collapse; I47.1 Supraventricular tachycardia; Z98.890 Other specified postprocedural states
CPT/HCPCS: 93017; 93350; J7040; A4216

== ENCOUNTER 2020-09-26 05:52 | Day surgery (SDC) | payer MEDICARE, OTHER, SELFPAY ==
[2020-08-10 13:31] VITALS: BMI 25.5
--- NOTE | 2020-09-20 09:31 | EKG12_ITS ---
Test Reason : PREOP Blood Pressure : / mmHG Vent. Rate : 073 BPM Atrial Rate : 073 BPM P-R Int : 198 ms QRS Dur : 122 ms QT Int : 412 ms P-R-T Axes : 043 009 036 degrees QTc Int : 453 ms Normal sinus rhythm Right bundle branch block Abnormal ECG Confirmed by RICARDO AMARAL, JUJU ([id number]), digital editor EHSAN SONG ([id number]) on 09/21/2020 7:21:41 AM Referred By: Lon Tabares Confirmed By:JUJU SILVA MD
[2020-09-20 10:17] LABS: Hematocrit 40.1 % (37-47); Hemoglobin 12.2 g/dL (12.0-15.0); Mean Corp Hgb Conc 30.4 g/dL (32-36); Mean Corpuscular Hgb 26.9 pg (27.0-32.0); Mean Corpuscular Volume 88.5 fL (81-99); Mean Platelet Vol. 9.4 fl (6.2-12.0); Platelet Count 369 K/mm3 (150-450); RBC Distribution Width SD 49.3 fl (35.1-43.9); Red Blood Count 4.53 M/mm3 (4.2-5.4); White Blood Count 6.6 K/mm3 (4.4-11.0)
[2020-09-20 10:48] LABS: Anion Gap 4 (5-15); BUN 14 mg/dL (7-18); BUN/Creat Ratio 22.5 RATIO (10-20); Calcium,Total 9.1 mg/dL (8.5-10.1); Chloride 104 mmol/L (98-107); Creatinine, Serum 0.62 mg/dL (0.55-1.02); EST Glomerular Filtration Rate 97 mL/min (>60); Est Glom Filt Rate - Afr Amer 117 mL/min (>60); Glucose 71 mg/dL (74-106); Potassium 4.1 mmol/L (3.5-5.1); Sodium Level 139 mmol/L (136-145)
[2020-09-20 10:54] LABS: Thyroid Stim Hormone (TSH) 1.62 uIU/mL (0.358-3.74)
[2020-09-22 09:42] VITALS: BMI 25.7
[2020-09-26] VITALS (8 sets, daily range): BP systolic 101–143; BP diastolic 56–91; PULSE 51–83; RESP 16; TEMP 36.1–36.8; O2SAT 97–100; BMI 25.4
--- NOTE | 2020-09-26 06:19 | PCM.HP.BLA ---
Problem List (1) Ventral incisional hernia without obstruction or gangrene Status: Acute History and Physical Date of Admission: 09/26/20 [facility] [address] [place], [place] [id number] OFFICE VISIT Date of Service: 09/22/20 MR#:[id number] Name: MAIA PAYAN [facility] #:[id number] : 1935 Provider: TABITHA Hairston Age/Sex: 85/F Location:[facility] [address] Status:Signed Intake Vital Signs 09/22/20 Height 5 ft 1 in 09/22/20 Weight: 136 lb 09/22/20 BP 114/70 09/22/20 Blood Pressure Location Rt brachial 09/22/20 Position Sitting 09/22/20 Respiration 16 09/22/20 Pulse 77 09/22/20 Pulse Source Monitor 09/22/20 Temp 98.2 F 09/22/20 Temp Source Temporal 09/22/20 Pulse Oximetry (%) 99 09/22/20 Oxygen Delivery Method room air Intake Visit Reasons: update H&P for hernia with Cash Applications Clerk Required: No Is patient in pain?: No Allergies cocamidopropyl betaine Allergy (Intermediate, Verified 09/22/20 09:43) Rash Sulfa (Sulfonamide Antibiotics) Allergy (Verified 09/22/20 09:43) Swelling codeine Adverse Reaction (Verified 09/22/20 09:43) Nausea hydrocodone bitartrate [From Vicodin] Adverse Reaction (Verified 09/22/20 09:43) Nausea oxycodone HCl [From Percocet] Adverse Reaction (Verified 09/22/20 09:43) Nausea tetracycline Adverse Reaction (Verified 09/22/20 09:43) Nausea/Vom/Diarrhea Dust & mold Adverse Reaction (Severe, Uncoded 09/22/20 09:43) Unknown Medications Albuterol Inhaler [Ventolin Hfa] 1 puff INHALATION Q4H PRN PRN 05/09/14 [History Confirmed 09/22/20] clonazepam 0.25 mg disintegrating tablet 0.25 mg PO DAILY tab 11/22/17 [History Confirmed 09/22/20] nortriptyline 25 mg capsule 25 mg PO QHS 11/22/17 [History Confirmed 09/22/20] vit C 250 mg-E 200 unit-zinc 40 mg-copper 1 ip-bqtctf-jvwtyt capsule 1 tab PO BID cap 11/22/17 [History Confirmed 09/22/20] polyethylene glycol 3350 17 gram/dose oral powder 17 g PO QDAY PRN 01/31/18 [History Confirmed 09/22/20] Mometasone Furoate [Asmanex 110 mcg Twisthaler] 110 mcg INHALATION DAILY 05/13/19 [History Confirmed 09/22/20] Acetaminophen [Tylenol Tablet] 500 mg PO Q4H PRN PRN tab 05/15/19 [Rx Confirmed 09/22/20] Dupilumab [Dupixent Pen] 300 mg SQ .QOWEEK 09/19/20 [History Confirmed 09/22/20] Vit C/E/Zn/Coppr/Lutein/Zeaxan [Preservision Areds 2 Softgel] 2 ea PO DAILY 09/19/20 [History Confirmed 09/22/20] levothyroxine 50 mcg tablet 50 mcg PO DAILY tab 09/22/20 [History Confirmed 09/22/20] PFSH Medical History Ventral incisional hernia without obstruction or gangrene (Acute) Chronic maxillary sinusitis (Chronic) Chronic ethmoidal sinusitis (Chronic) Chronic sphenoidal sinusitis (Chronic) Decreased sense of taste (Chronic) Family history of colon cancer in father (Acute) Pre-op evaluation (Acute) Hyperlipidemia (Chronic) Syncope and collapse (Chronic) Mixed hyperlipidemia (Chronic) PSVT (paroxysmal supraventricular tachycardia) (Chronic) Asthma (Chronic) Hypothyroidism (Chronic) Palpitations (Chronic) Chest discomfort (Acute) Surgical History History of bilateral knee replacement (Acute) Hx of rotator cuff surgery (Acute) History of tonsillectomy (Resolved) History of appendectomy (Resolved) H/O prior ablation treatment (Resolved) S/P partial colectomy (Acute) S/P carpal tunnel release (Acute) History of loop recorder (Chronic) Family History Father Colon cancer CAD (coronary artery disease) Mother CAD (coronary artery disease) Sister CVA (cerebral vascular accident) Brother Cancer Lung cancer Social History (Updated 09/26/20 @ 06:18 by Alix GARCIA PAThierry) Smoking Status: Never smoker alcohol intake: never substance use type: does not use caffeine: No what type of physical activity do you participate in: bicycling frequency: daily duration: 15-30 minutes/day seatbelt use: always do you feel safe at home: Yes HPI HPI Surgical H&P: Yes HPI: MAIA PAYAN, is a 85 F who presents to the office today for an update history and physical. Patient denies recent hospitalizations or illnesses since her last office visit with Dr. Tabares. She denies increased pain or discomfort at the hernia site. She denies recent change in bowels. She denies notes having a loop recorder. She denies previous myocardial infarction, stroke, and blood clots. She denies previous complications from anesthesia. She notes a side effect of nausea from anesthesia. Patient had followed up with Dr. Jurado who cleared the patient from a cardiac standpoint for surgery. Patient's previous history per Dr. Tabares: MAIA PAYAN, is a 84 F who presents to the office today for surgical consultation regarding an episode of incarcerated ventral incisional hernia that required emergency room visit on July 18, 2020. The patient is referred by Dr. Swenson had a written copy my surgical consult recommendations were returned to Dr. Alvin Swenson. That was able to be reduced in the emergency room. Fortunately her lactic acid level was 1.3 and her CBC was normal. She had a CT scan demonstrating a epigastric midline ventral hernia. The description is very brief however on my review it appears that there is actually likely more than 1 defect and disruption of the fascia at that site. There is also a separate ventral midline hernia inferior to that most likely consistent with a umbilical hernia. There is also description of bilateral fat-containing inguinal hernias. These are not symptomatic to her. Since the time that her hernia was reduced in the emergency room she has been more comfortable. The patient goes on to describe however recently 2 episodes of syncope. The most recent just 5 days ago causing a laceration to her left arm. She did not seek emergency attention at that time simply had a neighbor who is a physician put Steri-Strips on. She states that she has had another syncopal episode January 2020. She states 2 years ago she had a syncopal episode and at that point claims that she had a cardiac work-up and had a loop recorder placed. As far she is aware she has not been provided an etiology CT [facility] [address] [place] [address] Abdomen/Pelvis WITH Contrast MR#: [id number] Name: MAIA PAYAN [facility] #:[id number] : 1935F 84 From: Bharath Benito MD PCP:Dr. Jesus Tabares III, MD Status:REG ER Study:Abdomen/Pelvis WITH Contrast Date of Exam:07/18/20 Exam#[id number] Ordering Dr: Alvin Swenson DO HISTORY: ABD PAIN RELATED TO HERNIA, HX APPY, COLON SX EXAMINATION: CT Abdomen And Pelvis W/ Contrast Injection TECHNIQUE: Helically acquired images were obtained of the abdomen and pelvis following IV contrast. A radiation dose optimization technique was used for this scan. IV Contrast dosage and agent: 100mL [id number] Oral contrast: Yes COMPARISON: None FINDINGS: Lower thorax: Clear. No pleural effusion or pericardial effusion. No radiopaque gallstones and no biliary dilatation. Normal liver, spleen, and pancreas. Both kidneys appear normal for age. No hydronephrosis or pyelonephritis. The adrenal glands are not enlarged. Abdominal aorta is atherosclerotic and normal in caliber. No ascites or retroperitoneal lymph node enlargement. GI tract: No obstruction. Constipation pattern with colonic large stool content. Nonvisualization of the appendix. Pelvis: Atrophic uterus. Poor distention of the urinary bladder. No free fluid or lymph node enlargement. Bilateral small fat-containing inguinal hernias. Bones: No acute osseous abnormality. Benign hemangiomas of the L1 and L3 vertebrae. Lumbar spine multilevel degenerative disc disease and facet joint arthritis. Ventral abdominal Wall: Upper midline abdomen small fat-containing ventral wall hernia. CT/Abdomen/Pelvis WITH Contrast IMPRESSION: 1. Constipation pattern. No acute abdominal disease identified. 2. Bilateral small fat-containing inguinal hernias together with small fat-containing hernia of the upper midline ventral wall. 3. Additional nonacute findings, as above. Individualized dose optimization techniques were used for this CT. at 0049 Reported and signed by: Bharath Benito MD Electronically Signed: Bharath Benito, at 0:48 EDT Tel , Service support , ROS General General: No weight change, appetite, fatigue, colon cancer, breast cancer or weakness HEENT HEENT: No difficulty swallowing, eye injury, eye surgery, swollen glands or hoarseness Endo Endocrine: No thyroid disease, diabetes mellitus, thyroid cancer, Hair loss, heat intolerance or cold intolerance Skin Skin: Yes rash; no changing moles Musc Musculoskeletal: Yes arthritis; no back problems, rheumatoid arthritis, gout or joint pain Cardio Cardiovascular: No murmur, pacemaker, heart disease, atrial fibrillation, high blood pressure, heart attack, heart stent, palpitations, shortness of breat with exertion or chest pain Psych Psychiatric: Yes anxiety; no depression or hearing voices Resp Respiratory: No shortness of breath, No sleep apnea, No cough, No COPD, Yes asthma, No emphysema, No wheezing Gastro Gastrointestinal: No abdominal pain, No nausea or vomiting, No diarrhea, No constipation, No blood in stool, No acid reflux, No hemorrhoids, No ulcers, No gallbladder problem, No black,tarry stools Jac Hematologic: No blood thinners, No blood disorders, No bleeding, No anemia, No blood clots Neuro Neurologic: No system reviewed and no additional complaints, except as docu, No as per HPI, No abnormal walking, No abnormal hearing, No abnormal movements, No abnormal speech, No behavioral changes, No burning sensations, No confusion, No seizure-like activity, No unsteadiness, No dizziness, No localized weakness, No frequent falls, No headache(s), No lack of coordination, No loss of vision, No memory loss, No numbness, No other visual disturbances, No radiating pain, No restless legs, No sensory deficit, No fainting, No tingling, No tremor(s), No weakness, No other Exam Const General: cooperative, comfortable, no acute distress [facility] Head: normal to inspection Eyes General: appearance normal, both eyes and all related structures Neck Neck: normal visual inspection Neck mass: No Resp Effort & Inspection: normal respiratory effort Auscultation: clear to auscultation bilaterally Cardio Rate: regular rate Rhythm: regular rhythm Heart Sounds: no murmurs GI Inspection: normal to inspection Palpation: soft Other: Midline incision from previous colectomy for diverticular disease. Palpable hernia at the left epigastrium, weakness at the umbilicus. Hernia is reducible. Musc Cervical Spine: normal cervical lordosis Skin General: no rashes or lesions noted Neuro General: no focal motor deficits Extrem General: normal to inspection Psych Appearance: grossly normal Affect: normal affect Assessment & Plan Problems 1. Ventral incisional hernia without obstruction or gangrene K43.[address] Tabares will plan to perform an open probable laparoscopic conversion ventral incisional hernia repair, lysis of adhesions and inspection of the entire abdomen with additional hernia repairs if noted. Patient has had the opportunity to ask and have questions answered. Patient verbally understands and agrees with the plan. Details, risks and benefits of the procedure were reviewed with the patient. Coding Level of Care Code No Charge Diagnoses Ventral incisional hernia without obstruction or gangrene K43.2 Comment Update H&P 09/26/20 0618<Electronically signed by Alix GARCIA PA-C> Date Alix GARCIA PA-C
--- NOTE | 2020-09-26 06:59 | PCM.DC.GS ---
Discharge Diet: Light diet - advance as tolerated - if you have questions about your diet instructions, please talk to you doctor. Discharge Activity: May Not Drive - for 1 week or while taking narcotic pain medicine. May shower in (days): 1 Lifting Restrictions: 10 pounds Call your doctor if your incision/area has: Continuous Slow Oozing, Sudden Increased Bleeding, Increased Pain/ Swelling, Increased Redness, Foul Smelling Discharge Call your doctor if you observe: Fever of 101 or Higher Suture Line Care: Avoid Pulling/Pushing, Avoid Pinching/Bending Additional Dressing/Incision Instructions:: Change or remove dressing in 4 days. Leave steri-strips in place for 1 week. Allergies/Adverse Reactions: Allergies cocamidopropyl betaine Allergy (Intermediate, Verified 09/22/20 09:43) Rash Sulfa (Sulfonamide Antibiotics) Allergy (Verified 09/22/20 09:43) Swelling codeine Adverse Reaction (Verified 09/22/20 09:43) Nausea hydrocodone bitartrate [From Vicodin] Adverse Reaction (Verified 09/22/20 09:43) Nausea oxycodone HCl [From Percocet] Adverse Reaction (Verified 09/22/20 09:43) Nausea tetracycline Adverse Reaction (Verified 09/22/20 09:43) Nausea/Vom/Diarrhea Dust & mold Adverse Reaction (Severe, Uncoded 09/22/20 09:43) Unknown Medications to take at Discharge Albuterol Inhaler [Ventolin Hfa] 1 puff INHALATION Q4H PRN PRN 05/09/14 clonazepam 0.25 mg disintegrating tablet 0.25 mg PO DAILY tab 11/22/17 nortriptyline 25 mg capsule 25 mg PO QHS 11/22/17 vit C 250 mg-E 200 unit-zinc 40 mg-copper 1 ao-lhdxaj-cxneen capsule 1 tab PO BID cap 11/22/17 polyethylene glycol 3350 17 gram/dose oral powder 17 g PO QDAY PRN 01/31/18 Mometasone Furoate [Asmanex 110 mcg Twisthaler] 110 mcg INHALATION DAILY 05/13/19 Acetaminophen [Tylenol Tablet] 500 mg PO Q4H PRN PRN tab 05/15/19 Dupilumab [Dupixent Pen] 300 mg SQ .QOWEEK 09/19/20 Vit C/E/Zn/Coppr/Lutein/Zeaxan [Preservision Areds 2 Softgel] 2 ea PO DAILY 09/19/20 levothyroxine 50 mcg tablet 50 mcg PO DAILY tab 09/22/20 Primary Care Physician: Jesus Tabares III, MD [Primary Care Provider] - Test Results: Test results from this visit will be discussed in further detail at your follow-up appointment, if applicable. Please Follow Up With: Lon Tabares MD - [phone] When: Call to make an appointment to be seen in about 10 days.
[2020-09-26] MEDS: BUPIVACAINE LIPOSOME/PF 20 ML VIAL OPERA.SITE (07:00)
[2020-09-26] MEDS: 0.9% Normal Saline (Pres. free 10 ML Vial (07:00)
[2020-09-26] MEDS: Lactated Ringers 1,000 ML 100 ML IV ×2 (07:00→10:16)
[2020-09-26] MEDS: Bupivacaine Mpf 0.5% 30 ML VIAL (07:01)
[2020-09-26] MEDS: Cefazolin 2 GM in 0.9% Normal Saline 100 ML IV (07:16)
[2020-09-26] MEDS: Bupivacaine 0.25% 30 ML Vial (08:31)
--- NOTE | 2020-09-26 08:47 | OP.PCM_ITS ---
Problem List (1) Ventral incisional hernia without obstruction or gangrene Status: Acute Report of Operation Date of Procedure: 09/26/20 Pre-Operative Diagnosis: Epigastric multidefect ventral incisional hernia and umbilical hernia Post-Operative Diagnosis: Epigastric multidefect ventral incisional hernia and umbilical hernia Surgery/Procedure Performed:: Hybrid open and laparoscopic ventral incisional herniorrhaphy and umbilical herniorrhaphy with Ventralex ST hernia patch. [id number]. Lot [id number]. Expiry date 01/29/2022. 0.25% Marcaine bilateral tap block Description of Surgical Findings:: Timeout and informed consent was obtained. 85-year-old female was taken to the operating placed supine on the table and underwent general endotracheal intubation and anesthesia. Ancef 2 g were given intravenously. The abdomen was sterilely prepped draped. Ioban draping was used as well. At the palpable area supraumbilically 0.25% Marcaine was instilled and a vertical incision was created sharp dissection carried down through the subcu tissue a fascial defect identified the sac was incised and Aceves catheter was inserted the abdomen was insufflated with CO2 to a pressure of 10 mmHg pressure under laparoscopic visualization a 5 mm port was placed on the right upper quadrant. Inspection initially did not reveal any additional defects. The falciform ligament was transected using hot cautery. Fortunately is no evidence of bowel involvement in the hernia. I then allowed the abdomen to deflate through an antiviral valve. I was gaining access to the preperitoneal space when it became apparent that there was an additional defect left of the midline. This measured about 1.5 cm in diameter. There was a known infra incisional hernia umbilical hernia as well. I gained access to the umbilical hernia and internally placed a icizrg-ur-sybql suture of 0 Nurolon. That secured that nicely. I took the 0 Nurolon and secured in a aihhfj-pi-mqghp fashion the separate fascial defect to the left of the midline. I then placed a [address] mesh. The tails were secured with interrupted 0 Nurolon and then the fascia was approximated transversely with the same using sutures to grab the mesh. I then converted back to a laparoscopic visualization and at the periphery of the mesh secured with a secure strap. I then partially covered the mesh with the available pr eperitoneal tissue. Excellent positioning and securement of the mesh was achieved. Then utilizing 0.25% Marcaine I performed a tap block laparoscopically. That was done with the 0.25% Marcaine. Bilaterally this was performed. The abdomen was allowed to deflate of the CO2. The subcutaneous tissue was approximated running 0 Vicryl. Skin edges approximated with a running subicular 4-0 Monocryl. I placed an additional port site in the low mid abdomen during the procedure to facilitate visualization and manipulation. Both port sites closed. Sponge and instrument and needle counts were reported the surgeon to be correct. Blood loss minimal. Specimens none. Drains none. Blood loss minimal. The patient was taken to recovery area in satisfactory edition without apparent complication. Lon Tabares M.D., F.A.C.S. Type of Anesthesia:: General Anesthesiologist: Jose Bravo
[2020-09-26] MEDS: Acetaminophen 325 MG Tablet 650 MG PO (11:29)
== END 2020-09-26 12:56 | disposition home or self-care (01) ==
LOC: SDC 05:53 → AC 05:53
PROVIDERS: Anesthesiology; PCP Family Medicine; Referring Provider Surgery; Visit Provider Surgery
PROC: 0WQF4ZZ Repair Abdominal Wall, Percutaneous Endoscopic Approach (ICD-10-PCS; CPT 49560; principal; 2020-09-26 07:15)
DX: K43.2 Incisional hernia without obstruction or gangrene (principal); K42.9 Umbilical hernia without obstruction or gangrene; K59.00 Constipation, unspecified; I45.10 Unspecified right bundle-branch block; J45.909 Unspecified asthma, uncomplicated; E03.9 Hypothyroidism, unspecified; E78.2 Mixed hyperlipidemia; Z95.818 Presence of other cardiac implants and grafts; Z88.5 Allergy status to narcotic agent; Z88.1 Allergy status to other antibiotic agents; Z79.51 Long term (current) use of inhaled steroids; Z79.899 Other long term (current) drug therapy; Z20.828 Contact with and (suspected) exposure to other viral communicable diseases
CPT/HCPCS: 00752; 49560; 49568; 49585; 36415; 80048; 84443; 85027; 87635; 93005; C9803; J7120; C1781; J2405; J3490; U0003

== ENCOUNTER → 2021-07-04 12:56 | Outpatient (CLI) | payer MEDICARE, OTHER, SELFPAY ==
[2020-09-26 06:33] VITALS: BMI 25.4
--- NOTE | 2021-07-04 12:58 | BI_ITS ---
MAMMOGRAPHY - BILATERAL SCREENING REASON FOR EXAM: Female, 85 years old. Routine annual screening examination. PERTINENT HISTORY: Screening TECHNIQUE: Digital bilateral breast freedom (3D mammographic acquisition) in the CC and MLO projections. 2-D mediolateral oblique (MLO) and craniocaudad (CC) views of both breasts were obtained. CAD: Full Field Digital Mammography with Computer Added Detection was performed. COMPARISON: Previous mammogram from 06/20/2020 FINDINGS: Breast Composition: Fatty There are no dominant masses or suspicious calcifications. No other significant abnormalities are identified. A loop recorder is noted in the medial aspect of the left breast. BI/SCRN MAMM (CAD)W/FREEDOM BILAT IMPRESSION: Stable bilateral screening mammogram. Yearly follow-up mammogram recommended. (A) ASSESSMENT CATEGORY: BIRADS Category 1: Negative. A letter regarding these results will be sent to the patient by the facility within 30 days. Approximately 10% of breast cancers are not detected by mammography. A normal mammogram should not delay biopsy of a clinically suspicious abnormality. [id number] Electronically Signed: Joby Quevedo DO at 14:57 EDT Tel , Service support ,
== END ==
PROVIDERS: PCP Family Medicine; Referring Provider Family Medicine; Visit Provider Family Medicine
DX: Z12.31 Encounter for screening mammogram for malignant neoplasm of breast (principal)
CPT/HCPCS: 77063; 77067

== ENCOUNTER → 2022-11-07 | Outpatient (CLI) | payer MEDICARE, OTHER, SELFPAY ==
--- NOTE | 2022-11-07 13:43 | BI_ITS ---
MAMMOGRAPHY - BILATERAL SCREENING REASON FOR EXAM: Female, 87 years old. Routine annual screening examination. PERTINENT HISTORY: Grandmother with breast cancer. History of prior left stereotactic breast biopsy. TECHNIQUE: Digital bilateral breast freedom (3D mammographic acquisition) in the CC and MLO projections. 2-D mediolateral oblique (MLO) and craniocaudad (CC) views of both breasts were obtained. CAD: Full Field Digital Mammography with Computer Added Detection was performed. COMPARISON: Comparison is made with prior study dated 07/04/2021 and 06/28/2020. FINDINGS: Breast Composition: The breasts are almost entirely fatty. There are no dominant masses or suspicious calcifications. Stable asymmetry of breast tissue with more breast tissue is seen in the retroareolar region of the right breast as compared to the left side. Once again, a loop recording device is seen in overlying the inferior medial portion of the left breast. Once again, a tissue clip marker is seen in the anterior slightly upper lateral aspect of the left breast. No other significant abnormalities are identified. There has been no significant change since the prior study. BI/SCRN MAMM (CAD)W/FREEDOM BILAT IMPRESSION: Stable bilateral screening mammogram. Yearly follow-up mammogram recommended. (A) ASSESSMENT CATEGORY: BIRADS Category 2: Benign. A letter regarding these results will be sent to the patient by the facility within 30 days. Approximately 10% of breast cancers are not detected by mammography. A normal mammogram should not delay biopsy of a clinically suspicious abnormality. [id number] Electronically Signed: Simeon Tipton MD at 14:16 EST ,
== END | disposition home or self-care (01) ==
PROVIDERS: PCP Physician Assistant; Referring Provider Physician Assistant; Visit Provider Physician Assistant
DX: Z12.31 Encounter for screening mammogram for malignant neoplasm of breast (principal); Z80.3 Family history of malignant neoplasm of breast
CPT/HCPCS: 77063; 77067

== ENCOUNTER → 2023-11-08 | Outpatient (CLI) | payer MEDICARE, OTHER, SELFPAY ==
--- NOTE | 2023-11-08 09:41 | BI_ITS ---
MAMMOGRAPHY - BILATERAL SCREENING REASON FOR EXAM: Female, 88 years old. Routine annual screening examination. PERTINENT HISTORY: Grandmother with breast cancer. Remote Left stereotactic breast biopsy. TECHNIQUE: Digital bilateral breast freedom (3D mammographic acquisition) in the CC and MLO projections. 2-D mediolateral oblique (MLO) and craniocaudad (CC) views of both breasts were obtained. CAD: Full Field Digital Mammography with Computer Added Detection was performed. COMPARISON: Comparison is made with prior study November 07, 2022 and July 04, 2021. FINDINGS: Breast Composition: The breasts are almost entirely fatty. There are no dominant masses or suspicious calcifications. Once again, a loop recorder device is seen in the inferior medial aspect of the left breast. Stable asymmetry of breast tissue where more breast tissue is seen in the retroareolar region of the right breast as compared to the left side. A tissue clip marker is seen in the anterior slightly upper lateral aspect of the left breast No other significant abnormalities are identified. There has been no significant change since the prior study. BI/SCRN MAMM (CAD)W/FREEDOM BILAT IMPRESSION: Stable bilateral screening mammogram. Yearly follow-up mammogram recommended. (A) ASSESSMENT CATEGORY: BIRADS Category 2: Benign. A letter regarding these results will be sent to the patient by the facility within 30 days. Approximately 10% of breast cancers are not detected by mammography. A normal mammogram should not delay biopsy of a clinically suspicious abnormality. [id number] Electronically Signed: Simeon Tipton MD at 11:20 EST ,
== END | disposition home or self-care (01) ==
LOC: OPBI 09:38
PROVIDERS: PCP Physician Assistant; Referring Provider Physician Assistant; Visit Provider Physician Assistant
DX: Z12.31 Encounter for screening mammogram for malignant neoplasm of breast (principal)
CPT/HCPCS: 77063; 77067

== ENCOUNTER 2023-11-15 10:05 | Day surgery (SDC) | payer MEDICARE, OTHER, SELFPAY ==
--- NOTE | 2023-11-14 17:10 | NURSING ---
pt called in about colonoscopy for vera. 11/15 and arrival time- nothing noted on schedule. discussed with dr garza- pt has been prepped and clear liquids for the last two days. leny surgery charge nurse called and she will look at schedule and call pt in the am for an arrival time.
--- NOTE | 2023-11-15 10:24 | PCM.HP.BLA ---
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 Is patient in pain?: No Allergies cocamidopropyl betaine Allergy (Intermediate, Verified 10/08/23 13:04) RashSulfa (Sulfonamide Antibiotics) Allergy (Verified 10/08/23 13:04) SwellingEnvironmental Allergies: Uncoded [dust] Adverse Reaction (Severe, Verified 10/08/23 13:04) NEEDS FOLLOW-UPmold Adverse Reaction (Severe, Verified 10/08/23 13:04) NEEDS FOLLOW-UPmetoprolol Adverse Reaction (Intermediate, Verified 10/08/23 13:04) I feel awfulcodeine Adverse Reaction (Verified 10/08/23 13:04) Nauseahydrocodone bitartrate [From Vicodin] Adverse Reaction (Verified 10/08/23 13:04) Nauseaoxycodone HCl [From Percocet] Adverse Reaction (Verified 10/08/23 13:04) Nauseatetracycline Adverse Reaction (Verified 10/08/23 13:04) Nausea/Vom/Diarrhea Medications albuterol sulfate 90 mcg/actuation aerosol inhaler 1 puff inhalation Q4H PRN PRN Wheezing 05/09/14 [History Confirmed 10/08/23] vit C 250 mg-vit E 90 mg-zinc 40 mg-copper 1 nq-uywdqe-mrodab capsule (PreserVision AREDS-2) 1 tab PO BID 11/22/17 [History Confirmed 10/08/23] polyethylene glycol 3350 17 gram/dose oral powder (Miralax) 17 g PO QDAY PRN Constipation 01/31/18 [History Confirmed 10/08/23] acetaminophen 325 mg tablet 500 mg (1.5385 x 325 mg) PO Q4H PRN PRN Mild-Moderate Pain (1-5/10) 05/15/19 [Rx Confirmed 10/08/23] levothyroxine 50 mcg tablet 50 mcg PO DAILY 09/22/20 [History Confirmed 10/08/23] clonazepam 0.5 mg tablet 0.5 mg PO QHS #30 tabs 07/16/23 [Rx Confirmed 10/08/23] ferrous sulfate 325 mg (65 mg iron) tablet (FeroSul) mg PO 07/16/23 [History Confirmed 10/08/23] nortriptyline 10 mg capsule 30 mg (3 x 10 mg) PO QHS 90 days #270 caps 07/16/23 [Rx Confirmed 10/08/23] nortriptyline 10 mg capsule mg PO 07/16/23 [History Confirmed 10/08/23] PFSH Medical History (Updated 10/08/23 @ 05:[address] Lon Tabares MD) Asthma Chest discomfort Chronic ethmoidal sinusitis Chronic maxillary sinusitis Chronic sphenoidal sinusitis Decreased sense of taste Family history of colon cancer in father Hyperlipidemia Hypothyroidism Medication monitoring encounter Mixed hyperlipidemia Palpitations Panic disorder Pre-op evaluation PSVT (paroxysmal supraventricular tachycardia) Syncope and collapse Ventral incisional hernia without obstruction or gangrene Surgical History (Updated 10/08/23 @ 13:02 by Nova Walter) H/O prior ablation treatment History of appendectomy History of bilateral knee replacement History of loop recorder History of tonsillectomy Hx of rotator cuff surgery S/P carpal tunnel release S/P partial colectomy S/P ventral herniorrhaphy Family History Father Colon cancer CAD (coronary artery disease)Mother CAD (coronary artery disease)Sister CVA (cerebral vascular accident)Brother Cancer Lung cancer Social History Smoking Status: Never smoker alcohol intake: never substance use type: does not use caffeine: No what type of physical activity do you participate in: bicycling frequency: daily duration: 15-30 minutes/day seatbelt use: always do you feel safe at home: Yes HPI HPI HPI: 88-year-old female presents to discuss follow-up colonoscopy. Because of a multi defect ventral incisional hernia and umbilical hernia on September 26, 2020 I performed a hybrid open laparoscopic repair. Previously on October 14, 2018 and performed a colonoscopy as she has a family history of colon cancer in her father and she has a personal history of colon polyps. I found hemorrhoids and diverticulosis. Consider possible repeat at 5 years pending patient health. She is enjoying good health. She was on iron supplementation causing some severe constipation but having had the iron stopped that is improved. Sometimes she has smaller caliber stools. Her history is notable for father had colon cancer. She has previously had a polyp removed on a previous colonoscopy. ROS General General: No weight change, appetite, fatigue, colon cancer, breast cancer or weakness HEENT HEENT: Yes eye injury and eye surgery; No difficulty swallowing, swollen glands or hoarseness Endo Endocrine: Yes thyroid disease; No diabetes mellitus, thyroid cancer, Hair loss, heat intolerance or cold intolerance Skin Skin: No rash or changing moles Breast Breast: No left breast lump, right breast lump, nipple discharge, breast pain, abnormal mammogram, abnormal US or breast enlargement Musc Musculoskeletal: Yes arthritis; No back problems, rheumatoid arthritis, gout or joint pain Cardio Cardiovascular: No murmur, pacemaker, heart disease, atrial fibrillation, high blood pressure, heart attack, heart stent, palpitations, shortness of breat with exertion or chest pain Psych Psychiatric: Yes anxiety; No depression or hearing voices Resp Respiratory: No shortness of breath, No sleep apnea, No cough, No COPD, Yes asthma, No emphysema and No wheezing Gastro Gastrointestinal: No abdominal pain, No nausea or vomiting, No diarrhea, Yes constipation, No blood in stool, No acid reflux, No hemorrhoids, No ulcers, No gallbladder problem and No black,tarry stools Jac Hematologic: No blood thinners, No blood disorders, No bleeding, No anemia and No blood clots Neuro Neurologic: No system reviewed and no additional complaints, except as documented, No as per HPI, No abnormal gait, No abnormal hearing, No abnormal movements, No abnormal speech, No behavioral changes, No burning sensations, No confusion, No convulsions, No disequilibrium, No dizziness, No localized weakness, No frequent falls, No headache(s), No lack of coordination, No loss of vision, No memory loss, Yes numbness, No other visual disturbances, No radicular pain, No restless legs, No sensory deficit, No syncope, Yes tingling, No tremor(s), No weakness and No other Exam Const General: cooperative, healthy appearing, comfortable and no acute distress [facility] Head: normal to inspection Eyes General: appearance normal, both eyes and all related structures Neck Neck: normal visual inspection Resp Effort & Inspection: normal respiratory effort Auscultation: clear to auscultation bilaterally Cardio Rate: regular rate Rhythm: regular rhythm GI Inspection: normal to inspection Palpation: soft and no hepatosplenomegaly Musc Cervical Spine: normal cervical lordosis Skin General: no rashes or lesions noted Neuro General: patient alert and patient awake Extrem General: no calf tenderness Other: 2+ bilateral extremity edema Psych Appearance: grossly normal Assessment and Plan Assessment and Plan (1) S/P partial colectomy: Status: Acute (2) Family history of colon cancer in father: Status: Acute (3) Personal history of colonic polyps: Status: Acute Plan: After discussion with the patient and her she is interested in pursuing a colonoscopy with possible biopsy or polypectomy as indicated. She is aware of technique, benefit, risk, alternatives however she is currently continue to enjoy very good quality of life. We will schedule and proceed at her discretion. I appreciate the ongoing opportunity of assisting with her surgical care. Copy: TABITHA Robison M.D., F.A.C.S I have examined the patient and the H&P has been reviewed. There are no clinical changes since date of exam. Lon Tabares M.D., F.A.C.S.
[2023-11-15] MEDS: Lactated Ringers 1,000 ML 15 ML IV (10:26)
[2023-11-15 10:34] VITALS: BP 126/92; PULSE 66; RESP 16; TEMP 36.1; O2SAT 98; BMI 19.4
[2023-11-15 12:12] VITALS: BP 119/79; BP 126/92; PULSE 75; RESP 16; TEMP 36.4; O2SAT 100
--- NOTE | 2023-11-15 12:12 | OP.COLON_ITS ---
Patient Name: Sachi Grace Procedure Date: 11/15/2023 11:45 AM Date of : 1935 Age: 88 Procedure: Colonoscopy Indications: High risk colon cancer surveillance: Personal history of colonic polyps, Family history of colon cancer in a first-degree relative before age 60 years Providers: Lon Tabares MD Medicines: See the Anesthesia note for documentation of the administered medications Patient Profile: Last Colonoscopy: 5 years ago. Complications: No immediate complications. Procedure: Pre-Anesthesia Assessment: - Prior to the procedure, a History and Physical was performed, and patient medications and allergies were reviewed. The patient's tolerance of previous anesthesia was also reviewed. The risks and benefits of the procedure and the sedation options and risks were discussed with the patient. All questions were answered, and informed consent was obtained. Prior Anticoagulants: The patient has taken no anticoagulant or antiplatelet agents. ASA Grade Assessment: II - A patient with mild systemic disease. After reviewing the risks and benefits, the patient was deemed in satisfactory condition to undergo the procedure. After I obtained informed consent, the scope was passed under direct vision. Throughout the procedure, the patient's blood pressure, pulse, and oxygen saturations were monitored continuously. The Colonoscope was introduced through the anus and advanced to the cecum, identified by appendiceal orifice and ileocecal valve. The colonoscopy was performed without difficulty. The patient tolerated the procedure well. The quality of the bowel preparation was good. The ileocecal valve and the appendiceal orifice were photographed. Scope In: 11:56:07 AM Scope Withdrawal Time 0 hours 8 minutes 9 seconds Scope Out: 12:07:53 PM Total Procedure Duration Time 0 hours 11 minutes 46 seconds Findings: Hemorrhoids were found on perianal exam. A few diverticula were found in the sigmoid colon. The exam was otherwise without abnormality. Impression: - Hemorrhoids found on perianal exam. - Diverticulosis in the sigmoid colon. - The examination was otherwise normal. - No specimens collected. Recommendation: - Discharge patient to home. - Resume previous diet. - Continue present medications. - Repeat colonoscopy is not recommended due to current age (66 years or older) for screening purposes. Procedure Code(s): --- Professional --- 78139, Colonoscopy, flexible; diagnostic, including collection of specimen(s) by brushing or washing, when performed (separate procedure) Diagnosis Code(s): --- Professional --- Z86.010, Personal history of colonic polyps K64.9, Unspecified hemorrhoids Z80.0, Family history of malignant neoplasm of digestive organs K57.30, Diverticulosis of large intestine without perforation or abscess without bleeding CPT copyright 2021 [employer]. All rights reserved. The codes documented in this report are preliminary and upon auditing coder review may be revised to meet current compliance requirements. Lon Tabares MD 11/15/2023 12:12:19 PM This report has been signed electronically. Number of Addenda: 0 Note Initiated On: 11/15/2023 11:45 AM
--- NOTE | 2023-11-15 12:12 | OP.CCLET_ITS ---
11/15/2023 Kevin Andersen Re : Colonoscopy procedure for Sachi Grace Dear Ganesh This procedure was performed on Wednesday, November 15, 2023. My impressions and recommendations are as follows: Impressions : - Hemorrhoids found on perianal exam. - Diverticulosis in the sigmoid colon. - The examination was otherwise normal. - No specimens collected. Recommendations : - Discharge patient to home. - Resume previous diet. - Continue present medications. - Repeat colonoscopy is not recommended due to current age (66 years or older) for screening purposes. My findings are described in the full procedure note, which is enclosed. If I can be of further assistance, please feel free to contact me at Doctor phone number(s): Work: . Sincerely, Lon Tabares MD 11/15/2023 12:12:19 PM This report has been signed electronically.
[2023-11-15 12:15] VITALS: BP 119/79; BP 126/92; PULSE 78; RESP 16; O2SAT 100
[2023-11-15 12:20] VITALS: BP 119/90; BP 126/92; PULSE 80; RESP 16; O2SAT 100
[2023-11-15 12:23] VITALS: BP 122/77; BP 126/92; PULSE 69; RESP 16; TEMP 37.1; O2SAT 100
[2023-11-15 12:33] VITALS: BP 126/92
== END 2023-11-15 12:53 | disposition home or self-care (01) ==
LOC: EN 10:06 → AC 10:07
PROVIDERS: PCP Physician Assistant; Referring Provider Physician Assistant; Visit Provider Surgery
PROC: 0DJD8ZZ Inspection of Lower Intestinal Tract, Via Natural or Artificial Opening Endoscopic (ICD-10-PCS; CPT 45378; principal; 2023-11-15 11:25)
DX: Z12.11 Encounter for screening for malignant neoplasm of colon (principal); K57.30 Diverticulosis of large intestine without perforation or abscess without bleeding; K64.9 Unspecified hemorrhoids; E03.9 Hypothyroidism, unspecified; M79.7 Fibromyalgia; Z90.49 Acquired absence of other specified parts of digestive tract; Z79.899 Other long term (current) drug therapy; Z86.010 Personal history of colon polyps; Z80.0 Family history of malignant neoplasm of digestive organs
CPT/HCPCS: 45378; J7120; J2405

== ENCOUNTER → 2024-01-30 | Outpatient (CLI) | payer MEDICARE, OTHER, SELFPAY ==
--- NOTE | 2024-01-30 17:25 | STRESSREP ---
Stress Test Report Pharmacologic myocardial perfusion stress test. 88-year-old with history of palpitations Resting EKG demonstrates sinus rhythm with a rate of 70 bpm. Resting blood pressure is 108/62 mmHg. 0.4 mg of regadenoson was infused per usual protocol followed by rapid intravenous saline flush injection. Continuous EKG monitoring was performed. The maximum heart rate was 91 bpm which was 68 %of max impacted heart rate the maximum workload was 1 metabolic equivalent. At rest there were no ST or T wave changes noted to suggest ischemia and at peak infusion nonspecific ST changes were noted which did not meet the criteria for ischemia. No clinical angina is noted. The final blood pressure was 112/70 mmHg. Myocardial perfusion protocol. 11.6 mCi of technetium 99m sestamibi was injected at rest. 0.4 mg of regadenoson was infused per usual protocol. At peak infusion 33.8 mCi of technetium 99m sestamibi was injected stress images were obtained stress and rest images were reconstructed and compared in the short axis vertical long and horizontal long axis. Gated images were also obtained. Perfusion SPECT analysis: Review of the stress images demonstrate normal uptake of tracer noted in all areas of the myocardium. The resting images similar demonstrated normal uptake of tracer noted in all areas of the myocardium. No areas of reversibility are noted to suggest ischemia and no previous infarct is noted. Gated SPECT analysis: The gated ejection fraction is 93%. Conclusion: Normal pharmacologic myocardial perfusion stress test. Preserved ejection fraction.
== END | disposition home or self-care (01) ==
PROVIDERS: PCP Physician Assistant; Referring Provider Clinical Nurse Specialist Adult Health; Visit Provider Clinical Nurse Specialist Adult Health
DX: R06.02 Shortness of breath (principal); R00.2 Palpitations
CPT/HCPCS: 78452; 93017; A9500; A4216; J2785

== ENCOUNTER 2024-02-19 15:27 | Emergency (ER) | payer MEDICARE, OTHER, SELFPAY ==
[2024-02-19 15:28] VITALS: BP 145/78; PULSE 74; RESP 18; TEMP 36.6; O2SAT 95
[2024-02-19 16:26] LABS: Absolute Lymphocyte Count 0.71 X10^3/uL (0.83-4.51); Absolute Neutrophil Count 2.5 X10^3/uL (2.0-7.7); Basophil# 0.02 X10^3/uL; Basophil% 0.5 % (0-1); Eosinophil# 0.24 X10^3/uL; Eosinophils% 5.9 % (0-5); Hemoglobin 12.9 g/dL (12.0-15.0); Lymphocyte # 0.71 X10^3/ul (0.83-4.51); Lymphocyte % 17.4 % (19-41); Mean Corp Hgb Conc 32.3 g/dL (32-36); Mean Corpuscular Hgb 28.4 pg (27.0-32.0); Mean Corpuscular Volume 88.1 fL (81-99); Mean Platelet Vol. 9.2 fl (6.2-12.0); Monocyte# 0.59 X10^3/uL; Monocyte% 14.4 % (0-10); NRBC Flagged by Analyzer 0 % (0-5); Neutrophil # 2.52 X10^3/uL (2.7-7.7); Neutrophil % 61.6 % (47-70); Platelet Count 332 K/mm3 (150-450); RBC Distribution Width CV 14.7 % (11.6-14.6); RBC Distribution Width SD 47.8 fl (35.1-43.9); Red Blood Count 4.54 M/mm3 (4.2-5.4); White Blood Count 4.1 K/mm3 (4.4-11.0)
[2024-02-19 16:51] LABS: ALB/GLOB Ratio 0.9 RATIO (0.9-2.4); AST(SGOT) 33 U/L (15-37); Alanine Aminotransfer ALT/SGPT 25 U/L (13-56); Albumin, Serum 3.7 g/dL (3.2-5.0); Alkaline Phosphatase 85 U/L (45-117); Anion Gap 5 (5-15); BUN 9 mg/dL (7-18); BUN/Creat Ratio 15.3 RATIO (10-20); Calcium,Total 9.3 mg/dL (8.5-10.1); Chloride 104 mmol/L (98-107); Creatinine, Serum 0.59 mg/dL (0.55-1.02); EST Glomerular Filtration Rate 102 mL/min (>60); Est Glom Filt Rate - Afr Amer 124 mL/min (>60); Globulin 3.9 g/dL (2.2-4.2); Glucose 86 mg/dL (74-106); Potassium 4.3 mmol/L (3.5-5.1); Protein, Total 7.6 g/dL (6.4-8.2); Sodium Level 139 mmol/L (136-145)
--- NOTE | 2024-02-19 17:03 | EDS_ITS ---
HPI History of Present Illness Chief Complaint: General Illness Detail of Chief Complaint: Generalized weakness, anxiety, intractable nausea and constipation Informant: patient and spouse/S.O. Onset/Context/Timing Onset: Month(s) Context: Gradual Onset Timing: Continuous and Waxes and wanes Quality: Nausea without vomiting or diarrhea, reported anxiety and constipation Location: GI and psychological Current Severity: Moderate Maximum Severity: Moderate Worsened by: Nothing Relieved by: Nothing Associated Symptoms Associated Symptoms: Anxiety per patient Narrative Narrative: Patient is a 88-year-old woman who was seen and had flexible sigmoidoscopy by Dr. Lon Tabares this past November. There was no significant abnormality other than hemorrhoids. Patient has seen her PCP. She has been told that her nausea is due to anxiety. She stopped the BuSpar she was prescribed. She took her last dose Saturday. She also stopped the Zofran she was prescribed because reportedly it did not work and she felt it made her symptoms worse. Her last dose was this past as well. Patient denies fever, chills night sweats. She does endorse 6 pound weight loss over the past several weeks because of nausea and decreased appetite. She denies change in color, consistency or caliber of her stool. She denies cardiac or respiratory symptoms. She denies abdominal pain. She denies vomiting or diarrhea. Denies black or maroon-colored stool. She denies dysuria, frequency, urgency or hematuria. She denies low back pain or flank pain. She denies swelling of her legs, discoloration or pain. Prior similar symptoms: Yes Recent Illness/Hospitalization: Yes [facility] Medical History Arthritis Asthma Chest discomfort Chronic ethmoidal sinusitis Chronic maxillary sinusitis Chronic sphenoidal sinusitis Decreased sense of taste Family history of colon cancer in father Fibromyalgia History of diverticulitis History of ulceration Hyperlipidemia Hypothyroidism Medication monitoring encounter Mixed hyperlipidemia Palpitations Panic disorder Pre-op evaluation PSVT (paroxysmal supraventricular tachycardia) Syncope and collapse Ventral incisional hernia without obstruction or gangrene Wears partial dentures Home Medications albuterol sulfate 90 mcg/actuation aerosol inhaler 1 puff inhalation Q4H PRN PRN Wheezing 05/09/14 [History Last Taken 09/26/20 05:30] vit C 250 mg-vit E 90 mg-zinc 40 mg-copper 1 [id number]-eodvvf capsule (PreserVision AREDS-2) 1 tab PO BID 11/22/17 [History Last Taken Unknown] polyethylene glycol 3350 17 gram/dose oral powder (Miralax) 17 g PO QDAY PRN Constipation 01/31/18 [History Last Taken Unknown] acetaminophen 325 mg tablet 500 mg (1.5385 x 325 mg) PO Q4H PRN PRN Mild-Moderate Pain (1-5/10) 05/15/19 [Rx Last Taken Unknown] levothyroxine 50 mcg tablet 50 mcg PO DAILY 09/22/20 [History Last Taken 09/26/20 05:30] ropinirole 0.5 mg tablet 0.75 mg PO DAILY 11/11/23 [History Last Taken Unknown] clonazepam 0.5 mg tablet 0.5 mg PO QHS #30 tabs 01/14/24 [Rx Last Taken Unknown] propranolol 10 mg tablet 10 mg PO BID PRN anxiety #60 tabs 01/14/24 [Rx Last Taken Unknown] escitalopram oxalate 5 mg tablet 2.5 mg (1/2 x 5 mg) PO DAILY 30 days #15 tabs 02/12/24 [Rx Last Taken Unknown] clorazepate dipotassium 3.75 mg tablet 3.75 mg PO TID 5 days #15 tabs 02/19/24 [Rx Last Taken Unknown] Allergy/AdvReac Type Severity Reaction Status Date / Time cocamidopropyl betaine Allergy Intermediate Rash Verified 02/19/24 15:33 Sulfa (Sulfonamide Allergy Swelling Verified 02/19/24 15:33 Antibiotics) Environmental Allergies: AdvReac Severe NEEDS Verified 02/19/24 15:33 Uncoded FOLLOW-UP [dust] mold AdvReac Severe NEEDS Verified 02/19/24 15:33 FOLLOW-UP metoprolol AdvReac Intermediate I feel Verified 02/19/24 15:33 awful codeine AdvReac Nausea Verified 02/19/24 15:33 diphenhydramine AdvReac Nausea Verified 02/19/24 15:33 [From Benadryl] hydrocodone bitartrate AdvReac Nausea Verified 02/19/24 15:33 [From Vicodin] oxycodone HCl [From Percocet] AdvReac Nausea Verified 02/19/24 15:33 tetracycline AdvReac Nausea/Vom/ Verified 02/19/24 15:33 Diarrhea Family History Father Colon cancer CAD (coronary artery disease) Mother CAD (coronary artery disease) Sister CVA (cerebral vascular accident) Brother Cancer Lung cancer Surgical History H/O prior ablation treatment History of appendectomy History of bilateral knee replacement History of loop recorder History of tonsillectomy Hx of rotator cuff surgery S/P carpal tunnel release S/P partial colectomy S/P ventral herniorrhaphy Social History (Updated 02/19/24 @ 17:[address] Naren Sheridan MD) household members: spouse Smoking Status: Never smoker alcohol intake: never substance use type: does not use caffeine: No what type of physical activity do you participate in: bicycling frequency: daily duration: 15-30 minutes/day seatbelt use: always do you feel safe at home: Yes ROS ROS ED Constitutional Constitutional ED: Denies chills, fever(s), subjective, sweats or weight loss Eyes Eyes: Denies blurry vision, change in vision or diplopia ENT ENT ED: Denies ear pain, rhinorrhea or sore throat Cardiovascular Cardiovascular: Denies chest pain, orthopnea, palpitations, paroxysmal nocturnal dyspnea or racing heartbeat Respiratory/Chest Respiratory/Chest: Denies cough, dyspnea, dyspnea on exertion, orthopnea or paroxysmal nocturnal dyspnea Gastrointestinal Gastrointestinal: Reports constipation, nausea and other Details: Reports constipation however she states this morning she had a normal bowel movement. Furthermore she states if she takes a full cap of Metamucil/MiraLAX she has diarrhea if she does only teaspoon she has no results. ; Denies abdominal pain, diarrhea, melena or vomiting Genitourinary Genitourinary ED: Denies dysuria, hematuria or urinary frequency Musculoskeletal Musculoskeletal: Denies back pain, myalgias or neck pain Integumentary Denies rash Neurologic Neurologic: Denies headache(s), paresthesias or weakness Psychiatric Psychiatric: Reports anxiety and other Details: Reports anxiety for the past 3 years. She states it has been worse for the past 3 years. She has had anxiety for some time. EXAM Physical Exam Const Vital Signs: 02/19/24 15:28 02/19/24 17:18 02/19/24 17:31 Temperature 97.8 F Temperature Source Temporal Pulse Rate 74 73 Respiratory Rate 18 14 Respiratory Effort Normal Non-Labored Respiratory Pattern Normal Blood Pressure 145/78 H 144/79 H Blood Pressure Mean 100 100 Pulse Ox 95 96 Oxygen Delivery Method Room Air Room Air Positive well nourished and well developed General Appearance ED: well developed and NAD; Negative for pallor HEENT Reports moist mucous membranes HEENT Narrative: Head is atraumatic and normocephalic. Nares patent. Posterior pharynx normal. Mucosa moist. Eyes PERRL and EOMs intact bilaterally General Eye ED: Negative for pale conjunctiva or scleral icterus Neck no lymphadenopathy, supple and no JVD Chest Wall inspection of chest normal and palpation of chest normal Resp normal respiratory effort and clear to auscultation bilaterally Cardio regular rate, regular rhythm, S1 normal heart sound, S2 normal heart sound and no murmurs GI normal to inspection, nondistended, normoactive bowel sounds, non-tender, non- distended and no masses; Negative for hepatosplenomegaly GI Narrative: There is no palpable pulsatile mass. Back/Spine no CVA tenderness Extremity normal to inspection General Extremety ED: Negative for edema or tenderness General Extremity: Negative for edema Neuro oriented x3 and CN's II-XII intact bilaterally Sensorium / Orientation: alert Psych Mood & Affect: depressed Skin no rashes or lesions noted, no wounds and skin turgor normal General Skin Exam: Negative for jaundice or pallor MDM MDM MDM Narrative Medical decision making narrative: With reported weight loss poor appetite will obtain basic metabolic panel to assess renal function, electrolytes. Liver profile was obtained to assess alkaline phosphatase and albumin. CBC to assess white count and more importantly H&H. Prior records were reviewed and document in the [facility] narrative History & Record Review Additional record(s) reviewed:: Prior outpatient record, Prior ED visit and Prior labs Lab Data Attestation: I reviewed the patient's lab results. Lab results narrative: CBC is normal. Electrolyte panel is normal. Liver enzymes are normal. Labs: Laboratory Results - last 24 hr 02/19/24 16:10 WBC 4.1 L RBC 4.54 Hgb 12.9 Hct 40.0 MCV 88.1 MCH 28.4 MCHC 32.3 RDW Std Deviation 47.8 H RDW Coeff of Collin 14.7 H Plt Count 332 MPV 9.2 Immature Gran % (Auto) 0.200 Neut % (Auto) 61.6 Lymph % (Auto) 17.4 L Citrus % (Auto) 14.4 H Eos % (Auto) 5.9 H Baso % (Auto) 0.5 Absolute Neuts (auto) 2.5 Absolute Lymphs (auto) 0.71 L Nucleated RBC % 0 Sodium 139 Potassium 4.3 Chloride 104 Carbon Dioxide 30.0 Anion Gap 5 BUN 9 Creatinine 0.59 Est GFR (MDRD) Af Amer 124 Est GFR (MDRD) Non-Af 102 BUN/Creatinine Ratio 15.3 Glucose 86 Calcium 9.3 Total Bilirubin 0.60 AST 33 ALT 25 Alkaline Phosphatase 85 Total Protein 7.6 Albumin 3.7 Globulin 3.9 Albumin/Globulin Ratio 0.9 Treatment and Re-Evaluation :: Patient was treated with Reglan for her nausea. At 1715 went to see patient to see how she was doing problems informed that she just received the Reglan. She was informed of her laboratory results. Patient was reassessed at 1757. She states she has had no improvement after Reglan. She believes this to be anxiety. Will prescribe Discharge Plan Triage Chief Complaint: General Illness ED Provider: Naren Sheridan Dx/Rx/DC Orders Clinical Impression: History of anxiety, Chronic constipation, Chronic nausea Instructions: ED Anxiety Reaction Prescriptions: New clorazepate dipotassium 3.75 mg tablet 3.75 mg PO TID 5 Days Qty: 15 0RF No Action vit C,W-Tw-zvkxe-lutein-zeaxan [PreserVision AREDS-2] 264-524-19-1 px-hkqi-xy-mg capsule 1 tab PO BID polyethylene glycol 3350 [Miralax] 17 gram/dose powder 17 g PO QDAY PRN (Reason: Constipation) levothyroxine 50 mcg tablet 50 mcg PO DAILY Patient Comments: 1.5 TABS SUN AND TH 1 TAB ALL OTHER DAYS propranolol 10 mg tablet 10 mg PO BID PRN (Reason: anxiety) Qty: 60 0RF clonazepam 0.5 mg tablet 0.5 mg PO QHS Qty: 30 2RF escitalopram oxalate 5 mg tablet 2.5 mg PO DAILY 30 Days Qty: 15 2RF albuterol sulfate 1 INHALER inhaler 1 puff INHALATION Q4H PRN PRN (Reason: Wheezing) acetaminophen 325 MG tablet 500 mg PO Q4H PRN PRN (Reason: Mild-Moderate Pain (1-04/10)) 0RF ropinirole 0.5 mg tablet 0.75 mg PO DAILY Primary Care Provider: Kevin Andersen Referrals: Kevin Andersen, PA [Primary Care Provider] - Disposition Disposition: Home, Self Care
[2024-02-19] MEDS: Metoclopramide 10 MG/2 ML Vial 5 MG IV (17:13)
[2024-02-19 17:31] VITALS: BP 144/79; PULSE 73; RESP 14; O2SAT 96
[2024-02-19 18:21] VITALS: BP 132/71; PULSE 70; RESP 16; TEMP 36.4; O2SAT 98
== END 2024-02-19 18:24 | disposition home or self-care (01) ==
PROVIDERS: Emergency Provider Emergency Medicine; PCP Physician Assistant; Visit Provider Emergency Medicine
DX: F41.9 Anxiety disorder, unspecified (principal); K59.09 Other constipation; R11.0 Nausea; Z79.899 Other long term (current) drug therapy
CPT/HCPCS: 80053; 85025; 96374; 99282; A4216

== ENCOUNTER → 2024-11-10 | Outpatient (CLI) | payer MEDICARE, OTHER, SELFPAY ==
--- NOTE | 2024-11-10 09:38 | BI_ITS ---
MAMMOGRAPHY - BILATERAL SCREENING REASON FOR EXAM: Female, 89 years old. Routine annual screening examination. PERTINENT HISTORY: Grandmother with breast cancer. Prior left stereotactic breast biopsy. TECHNIQUE: Digital bilateral breast freedom (3D mammographic acquisition) in the CC and MLO projections. 2-D mediolateral oblique (MLO) and craniocaudad (CC) views of both breasts were obtained. CAD: Full Field Digital Mammography with Computer Added Detection was performed. COMPARISON: Comparison is made with prior study dated November 08, 2023 and November 07, 2022. FINDINGS: Breast Composition: The breasts are almost entirely fatty. There are no dominant masses or suspicious calcifications. Stable asymmetry of breast tissue with more breast tissue is seen in the retroareolar region of the right breast as compared to the left side. A tissue clip marker is seen along the anterior slightly upper lateral aspect of the left breast. A loop recorder device is once again seen overlying the inferior medial aspect of the left breast. No other significant abnormalities are identified. There has been no significant change since the prior study. BI/SCRN MAMM (CAD)W/FREEDOM BILAT IMPRESSION: Stable bilateral screening mammogram. Yearly follow-up mammogram recommended. (A) ASSESSMENT CATEGORY: BIRADS Category 2: Benign. A letter regarding these results will be sent to the patient by the facility within 30 days. Approximately 10% of breast cancers are not detected by mammography. A normal mammogram should not delay biopsy of a clinically suspicious abnormality. [id number] Electronically Signed: Simeon Tipton MD at 10:19 EST ,
== END | disposition home or self-care (01) ==
LOC: OPBI 09:37
PROVIDERS: PCP Physician Assistant; Referring Provider Clinical Nurse Specialist Adult Health; Visit Provider Clinical Nurse Specialist Adult Health
DX: Z12.31 Encounter for screening mammogram for malignant neoplasm of breast (principal)
CPT/HCPCS: 77063; 77067

== ENCOUNTER 2024-12-10 19:33 | Emergency (ER) | payer MEDICARE, OTHER, SELFPAY ==
[2024-12-10 19:34] VITALS: BP 148/84; PULSE 118; RESP 18; TEMP 36.5; O2SAT 96; BMI 24.9
--- NOTE | 2024-12-10 20:36 | CT_ITS ---
EXAM: CT ABDOMEN AND PELVIS WITH INTRAVENOUS CONTRAST CLINICAL INDICATION: Pain TECHNIQUE: Helically acquired images were obtained of the abdomen and pelvis with intravenous contrast. This CT exam was performed using one or more of the following dose reduction techniques: automated exposure control, adjustment of the mA and/or kV according to patient size, and/or use of iterative reconstruction technique. CONTRAST: IV 75mL Isovue-370 COMPARISON: No relevant prior studies available. FINDINGS: LOWER THORAX: Coronary artery calcifications and/or stents. Centrilobular emphysema. No cardiomegaly. No significant pericardial effusion. ABDOMEN: LIVER: No significant abnormality. Homogeneous. No focal mass. GALLBLADDER AND BILE DUCTS: No significant abnormality. No calcified gallstones. No gallbladder distention or wall edema. No intra- or extrahepatic biliary ductal dilation. PANCREAS: Pancreatic atrophy and pancreatic ductal dilatation. In the body of the pancreas, there is a 2.8 cm cystic lesion with ill-defined margins. SPLEEN: No significant abnormality. Normal size without focal cystic or solid mass. ADRENALS: No significant abnormality. No nodules. KIDNEYS AND URETERS: No significant abnormality. Normal renal size and position. No hydronephrosis. STOMACH AND BOWEL: Moderate to large amount of colorectal stool retention. Colonic diverticulosis without evidence of acute diverticulitis. No stomach or bowel distention. PELVIS: APPENDIX: No evidence of acute appendicitis. BLADDER: No significant abnormality. REPRODUCTIVE: Normal as visualized. No mass. ABDOMEN and PELVIS: INTRAPERITONEAL SPACE: No significant abnormality. No ascites or other fluid collection. No free air. BONES/JOINTS: Extensive degenerative changes in the spine and degenerative changes of the visualized appendicular structures. No suspicious lytic or blastic abnormality. SOFT TISSUES: Small fat-containing bilateral inguinal hernias. VASCULATURE: Atherosclerosis. LYMPH NODES: No significant abnormality. No enlarged lymph nodes. CT/Abdomen/Pelvis W IV Cont ONLY IMPRESSION: 1. Pancreatic atrophy and pancreatic ductal dilatation. In the body of the pancreas, there is a 2.8 cm cystic lesion with ill-defined margins. ACR White Paper guidelines (Joe et al. JACR 2017; 14(7):911-923) suggest endoscopic ultrasound with fine needle aspiration and surgical consultation. 2. Moderate to large amount of colorectal stool retention. 3. Centrilobular emphysema. 4. Colonic diverticulosis without evidence of acute diverticulitis. Electronically Signed: Denny Rm DO at 21:57 EST ,
--- NOTE | 2024-12-10 20:38 | EDS_ITS ---
HPI HPI - GI History of Present Illness Chief Complaint: Abd Pain Informant: patient Abdominal Pain/Flank Pain Onset: Weeks Context: Gradual Onset Timing: Intermittent Quality: Aching Location: Epigastric Worsened by: Food Relieved by: Nothing Nausea/Vomiting/Emesis GI Symptom: Positive for Nausea; Negative for Vomiting Diarrhea/Melena/Hematochezia GI Symptom: Negative for Diarrhea, Melena or Hematochezia Associated Symptoms Associated Symptoms: Negative for Dysuria, Frequency or Hematuria Narrative Narrative: Patient presents with abdominal pain that has been getting worse over the past couple weeks. Patient states it is gradually getting worse. Patient states it is intermittent. Patient describes her pain as aching. Patient states her pain is over the upper abdomen. Patient states that sometimes food makes it worse. Patient admits to some nausea but denies any vomiting. Patient denies any diarrhea, melena, or hematochezia. Patient states she recently completed treatment for H. pylori infection. Patient admits to some constipation. Patient denies any urinary complaints. 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 Family history of colon cancer in father Pre-op evaluation Hyperlipidemia Syncope and collapse Mixed hyperlipidemia PSVT (paroxysmal supraventricular tachycardia) Chest discomfort Palpitations Hypothyroidism Asthma Home Medications ?Medication ?Instructions ?Recorded ?Last Taken ?Type albuterol sulfate 90 mcg/actuation 1 puff inhalation Q4H PRN PRN 05/09/14 09/26/20 05:30 History aerosol inhaler Wheezing vit C 250 mg-vit E 90 mg-zinc 40 1 tab PO BID 11/22/17 Unknown History mg-copper 1 [id number] capsule (PreserVision AREDS-2) polyethylene glycol 3350 17 17 g PO QDAY PRN Constipation 01/31/18 Unknown History gram/dose oral powder (Miralax) acetaminophen 325 mg tablet 500 mg (1.5385 x 325 mg) PO Q4H 05/15/19 Unknown Rx PRN PRN Mild-Moderate Pain (1-5/10) levothyroxine 50 mcg tablet 50 mcg PO DAILY 09/22/20 09/26/20 05:30 History ropinirole 0.5 mg tablet 0.75 mg PO DAILY 11/11/23 Unknown History nortriptyline 10 mg capsule 10 mg PO BID #120 caps 09/24/24 Unknown Rx CBD Oral (INFORMATIONAL USE 11/10/24 Unknown History ONLY-PT USES ORAL CBD) clonazepam 0.5 mg tablet 0.5 mg PO QHS #30 tabs 11/10/24 Unknown Rx gabapentin 100 mg capsule 100 mg PO TID 11/10/24 Unknown History Allergy/AdvReac Type Severity Reaction Status Date / Time cocamidopropyl betaine Allergy Intermediate Rash Verified 12/10/24 19:37 Sulfa (Sulfonamide Allergy Swelling Verified 12/10/24 19:37 Antibiotics) Environmental Allergies: AdvReac Severe NEEDS Verified 12/10/24 19:37 Uncoded (dust) FOLLOW-UP mold AdvReac Severe NEEDS Verified 12/10/24 19:37 FOLLOW-UP metoprolol AdvReac Intermediate I feel Verified 12/10/24 19:37 awful codeine AdvReac Nausea Verified 12/10/24 19:37 diphenhydramine (From AdvReac Nausea Verified 12/10/24 19:37 Benadryl) hydrocodone bitartrate (From AdvReac Nausea Verified 12/10/24 19:37 Vicodin) oxycodone HCl (From Percocet) AdvReac Nausea Verified 12/10/24 19:37 tetracycline AdvReac Nausea/Vom/ Verified 12/10/24 19:37 Diarrhea Family History Father Colon cancer CAD (coronary artery disease) Mother CAD (coronary artery disease) Sister CVA (cerebral vascular accident) Brother Cancer Lung cancer Surgical History S/P ventral herniorrhaphy History of bilateral knee replacement Hx of rotator cuff surgery S/P carpal tunnel release S/P partial colectomy History of loop recorder H/O prior ablation treatment History of appendectomy History of tonsillectomy Social History household members: spouse Smoking Status: Never smoker alcohol intake: never substance use type: does not use caffeine: No what type of physical activity do you participate in: bicycling frequency: daily duration: 15-30 minutes/day seatbelt use: always do you feel safe at home: Yes ROS ROS ED Constitutional Constitutional ED: Reports chills; Denies fever(s) Eyes Eyes: Denies blurry vision or change in vision ENT ENT ED: Denies rhinorrhea or sore throat Cardiovascular Cardiovascular: Denies chest pain or palpitations Respiratory/Chest Respiratory/Chest: Denies cough or dyspnea Gastrointestinal Gastrointestinal: Reports abdominal pain, constipation and nausea; Denies diarrhea, melena or vomiting Genitourinary Genitourinary ED: Denies dysuria or hematuria Musculoskeletal Musculoskeletal: Denies back pain or neck pain Integumentary Denies abscess or rash Neurologic Neurologic: Denies headache(s) or weakness Allergic/Immunologic Allergic/Immunologic ED: Denies mouth swelling or urticaria EXAM Physical Exam Const Vital Signs: 12/10/24 19:34 12/10/24 21:33 Temperature 97.7 F L Temperature Source Oral Pulse Rate 118 H 78 Respiratory Rate 18 16 Blood Pressure 148/84 H 142/85 H Blood Pressure Mean 105 104 Pulse Ox 96 97 Oxygen Delivery Method Room Air Room Air Positive well nourished and well developed General Appearance ED: well developed and NAD HEENT Reports moist mucous membranes Neck supple and no JVD Resp normal respiratory effort and clear to auscultation bilaterally Cardio regular rate and regular rhythm GI non-distended Palpation: soft and tender epigastric, LUQ and RUQ; Negative for guarding or rebound tenderness present Neuro CN's II-XII intact bilaterally, moves all extremities and no sensory deficits noted Sensorium / Orientation: alert Motor Exam: strength 5/5 throughout Psych mental status grossly normal MDM MDM MDM Narrative Medical decision making narrative: Differential diagnosis includes gastritis, peptic ulcer disease, pancreatitis, cholecystitis, cholelithiasis, gastroesophageal reflux disease, colitis, diverticulitis, urinary tract infection, and viral illness. CBC will be obtained to assess for leukocytosis and anemia. Comprehensive metabolic profile will be obtained to assess for hepatic function, renal function, and electrolyte abnormality. Urinalysis will be obtained assess for urinary tract infection and hematuria. Lipase will be obtained to assess for pancreatitis. CT scan of the abdomen and pelvis will be obtained to assess for bowel obstruction, perforation, cholecystitis, and pancreatitis. Lab Data Attestation: I reviewed the patient's lab results. Lab results narrative: CBC was reviewed and was within normal limits. Comprehensive metabolic profile was reviewed and was within normal limits. Lipase was reviewed and was normal at 25. Urinalysis was reviewed. There is no evidence of urinary tract infection or hematuria. Labs: Laboratory Results - last 24 hr 12/10/24 12/10/24 21:00 21:05 WBC 5.2 RBC 4.43 Hgb 12.8 Hct 39.3 MCV 88.7 MCH 28.9 MCHC 32.6 RDW Std Deviation 50.5 H RDW Coeff of [place] 15.4 H Plt Count 353 MPV 9.2 Immature Gran % (Auto) 0.200 Neut % (Auto) 62.8 Lymph % (Auto) 13.3 L [place] % (Auto) 15.7 H Eos % (Auto) 6.8 H Baso % (Auto) 1.2 H Absolute Neuts (auto) 3.3 Absolute Lymphs (auto) 0.69 L Nucleated RBC % 0 Sodium 136 Potassium 3.8 Chloride 100 Carbon Dioxide 31.0 Anion Gap 5 BUN 13 Creatinine 0.65 Estim Creat Clear Calc 39.61 Est GFR (MDRD) Af Amer 110 Est GFR (MDRD) Non-Af 91 BUN/Creatinine Ratio 19.9 Glucose 100 Calcium 9.1 Total Bilirubin 0.30 AST 47 H ALT 39 Alkaline Phosphatase 95 Total Protein 7.5 Albumin 3.4 Globulin 4.1 Albumin/Globulin Ratio 0.8 L Lipase 25 Urine Color Yellow Urine Clarity Clear Urine pH 7.0 Ur Specific [place] 1.010 Urine Protein 15 H Urine Glucose (UA) Normal Urine Ketones Negative Urine Occult Blood 10 H Urine Nitrite Negative Urine Bilirubin Negative Urine Urobilinogen Normal Ur Leukocyte Esterase 100 H Urine RBC 0-5 SEEN Urine WBC 0-5 SEEN Ur Squamous Epith Cells 0 SEEN Urine Bacteria 0 SEEN Urine Mucus 0 SEEN Radiography Diagnostic Testing: Clinical Impression(s) from Imaging Studies Abdomen/Pelvis CT 12/10/24 20:36 IMPRESSION: 1. Pancreatic atrophy and pancreatic ductal dilatation. In the body of the pancreas, there is a 2.8 cm cystic lesion with ill-defined margins. ACR White Paper guidelines (amado Diaz al. JACR 2017; 14(7):911-923) suggest endoscopic ultrasound with fine needle aspiration and surgical consultation. 2. Moderate to large amount of colorectal stool retention. 3. Centrilobular emphysema. 4. Colonic diverticulosis without evidence of acute diverticulitis. Electronically Signed: Denny Rm, at 21:57 EST , CT scan of the abdomen pelvis was obtained. There is pancreatic atrophy and d uctal dilatation. There is a 2.8 cm cystic lesion with ill-defined margins. There is moderate to large amount of stool retention. There is diverticulosis but no evidence of diverticulitis. This was interpreted by the radiologist and was also independently reviewed by myself. Treatment and Re-Evaluation :: Patient was given a GI cocktail here. Patient was advised of her findings. Patient states she had a prior MRI which showed the pancreatic cyst. Patient was instructed to follow-up with her primary care physician in 5 to 7 days. Patient understood and was agreeable with the plan. All questions were answered. Discharge Plan Triage Chief Complaint: Abd Pain ED Provider: Tony Villanueva Dx/Rx/DC Orders Clinical Impression: Abdominal pain, Asthma, Hypothyroidism Instructions: ED Abdominal Pain Unkn Cause Fem Prescriptions: No Action vit C,P-Rz-oehmo-lutein-zeaxan [PreserVision AREDS-2] 844-835-51-1 lz-whcr-hm-mg capsule 1 tab PO BID polyethylene glycol 3350 [Miralax] 17 gram/dose powder 17 g PO QDAY PRN (Reason: Constipation) levothyroxine 50 mcg tablet 50 mcg PO DAILY Patient Comments: 1.5 TABS SUN AND TH 1 TAB ALL OTHER DAYS gabapentin 100 mg capsule 100 mg PO TID (DME) CBD Oral (INFORMATIONAL USE ONLY-PT USES ORAL CBD) Oil See Rx Instructions .ROUTE Rx Instructions: As directed clonazepam 0.5 mg tablet 0.5 mg PO QHS Qty: 30 1RF albuterol sulfate 1 INHALER inhaler 1 puff INHALATION Q4H PRN PRN (Reason: Wheezing) acetaminophen 325 MG tablet 500 mg PO Q4H PRN PRN (Reason: Mild-Moderate Pain (1-5/10)) 0RF ropinirole 0.5 mg tablet 0.75 mg PO DAILY nortriptyline 10 mg capsule 10 mg PO BID Qty: 120 1RF Primary Care Provider: Anitra Hummel Referrals: Anitra Hummel, LEXIE [Primary Care Provider] - 5-7 Days Kevin Andersen PA [Non-Staff] - 5-7 Days Print Language: Bulgarian Disposition Disposition: Home, Self Care
[2024-12-10] MEDS: 0.9% Normal Saline (1000mL) 1,000 ML 999 ML IV (20:59)
[2024-12-10] MEDS: Lidocaine 2% Viscous15 ML UDC 15 ML PO (20:59)
[2024-12-10] MEDS: Mag Hydrox/Al Hydrox/Simeth 30 ML UDC PO (20:59)
[2024-12-10 21:10] LABS: Bacteria 0 SEEN /hpf (None Seen); Mucous, Urine 0 SEEN /hpf (<or=2+); Squamous Epithelial Cells - UA 0 SEEN /hpf (5-10)
[2024-12-10 21:11] LABS: Absolute Lymphocyte Count 0.69 X10^3/uL (0.83-4.51); Absolute Neutrophil Count 3.3 X10^3/uL (2.0-7.7); Basophil# 0.06 X10^3/uL; Basophil% 1.2 % (0-1); Eosinophil# 0.35 X10^3/uL; Eosinophils% 6.8 % (0-5); Hematocrit 39.3 % (37-47); Hemoglobin 12.8 g/dL (12.0-15.0); Lymphocyte # 0.69 X10^3/ul (0.83-4.51); Lymphocyte % 13.3 % (19-41); Mean Corp Hgb Conc 32.6 g/dL (32-36); Mean Corpuscular Hgb 28.9 pg (27.0-32.0); Mean Corpuscular Volume 88.7 fL (81-99); Mean Platelet Vol. 9.2 fl (6.2-12.0); Monocyte# 0.81 X10^3/uL; Monocyte% 15.7 % (0-10); NRBC Flagged by Analyzer 0 % (0-5); Neutrophil # 3.25 X10^3/uL (2.7-7.7); Neutrophil % 62.8 % (47-70); Platelet Count 353 K/mm3 (150-450); RBC Distribution Width CV 15.4 % (11.6-14.6); RBC Distribution Width SD 50.5 fl (35.1-43.9); Red Blood Count 4.43 M/mm3 (4.2-5.4); White Blood Count 5.2 K/mm3 (4.4-11.0)
[2024-12-10 21:17] LABS: Color, Urine Yellow (Yellow); Glucose, Dipstick Normal (Normal); Ketone-Dipstick Negative (Negative); Leukocyte Esterase-Dipstick 100 /ul (Negative); Nitrite-Dipstick Negative (Negative); Occult Blood-Urine 10 /ul (Negative); Protein-Dipstick 15 mg/dl (Negative); Urine Bilirubin Dipstick Negative (Negative); Urine Clarity Clear (Clear); Urine Urobilinogen Normal (Normal)
[2024-12-10 21:24] LABS: Red Blood Cells-Urine 0-5 SEEN /hpf (0-5); White Blood Cells 0-5 SEEN /hpf (0-5)
[2024-12-10 21:28] LABS: ALB/GLOB Ratio 0.8 RATIO (0.9-2.4); AST(SGOT) 47 U/L (15-37); Alanine Aminotransfer ALT/SGPT 39 U/L (13-56); Albumin, Serum 3.4 g/dL (3.2-5.0); Alkaline Phosphatase 95 U/L (45-117); Anion Gap 5 (5-15); BUN 13 mg/dL (7-18); BUN/Creat Ratio 19.9 RATIO (10-20); Calcium,Total 9.1 mg/dL (8.5-10.1); Chloride 100 mmol/L (98-107); Creatinine, Serum 0.65 mg/dL (0.55-1.02); EST Glomerular Filtration Rate 91 mL/min (>60); Est Glom Filt Rate - Afr Amer 110 mL/min (>60); Estimated Creatinine Clearance 39.61 ml/min; Globulin 4.1 g/dL (2.2-4.2); Glucose 100 mg/dL (74-106); Lipase 25 U/L (13-75); Potassium 3.8 mmol/L (3.5-5.1); Protein, Total 7.5 g/dL (6.4-8.2); Sodium Level 136 mmol/L (136-145)
[2024-12-10 21:33] VITALS: BP 142/85; PULSE 78; RESP 16; O2SAT 97
[2024-12-10 22:32] VITALS: BP 132/74; PULSE 85; RESP 16; TEMP 36.6; O2SAT 97
== END 2024-12-10 22:33 | disposition home or self-care (01) ==
PROVIDERS: Emergency Provider Emergency Medicine; PCP Clinical Nurse Specialist Adult Health; Visit Provider Emergency Medicine
DX: R10.9 Unspecified abdominal pain (principal); J45.909 Unspecified asthma, uncomplicated; E03.9 Hypothyroidism, unspecified
CPT/HCPCS: 74177; 80053; 81001; 83690; 85025; 96360; 99282; Q9967

== ENCOUNTER 2025-05-12 15:07 | Outpatient (RCR) | payer MEDICARE, OTHER, SELFPAY | END 2025-05-31 23:59 | LOC: NS 15:07 | PROVIDERS: PCP Clinical Nurse Specialist Adult Health; Visit Provider Internal Medicine Medical Oncology | DX: Z71.3 Dietary counseling and surveillance (principal); C25.9 Malignant neoplasm of pancreas, unspecified ==

== ENCOUNTER 2025-05-14 20:58 | Emergency (ER) | payer MEDICARE, OTHER, SELFPAY ==
[2025-05-14 20:59] VITALS: BP 160/91; PULSE 92; RESP 16; TEMP 36.4; O2SAT 100; BMI 21.9
[2025-05-14 22:10] LABS: Absolute Lymphocyte Count 0.59 X10^3/uL (0.83-4.51); Absolute Neutrophil Count 2.7 X10^3/uL (2.0-7.7); Basophil# 0.05 X10^3/uL; Basophil% 1.1 % (0-1); Eosinophil# 0.33 X10^3/uL; Eosinophils% 7.6 % (0-5); Hematocrit 33.6 % (37-47); Hemoglobin 11.3 g/dL (12.0-15.0); Lymphocyte # 0.59 X10^3/ul (0.83-4.51); Lymphocyte % 13.5 % (19-41); Mean Corp Hgb Conc 33.6 g/dL (32-36); Mean Corpuscular Hgb 30.6 pg (27.0-32.0); Mean Corpuscular Volume 91.1 fL (81-99); Mean Platelet Vol. 8.9 fl (6.2-12.0); Monocyte# 0.68 X10^3/uL; Monocyte% 15.6 % (0-10); NRBC Flagged by Analyzer 0 % (0-5); Neutrophil # 2.69 X10^3/uL (2.7-7.7); Neutrophil % 61.5 % (47-70); POSITIVE DIFFERENTIAL YES; Platelet Count 338 K/mm3 (150-450); RBC Distribution Width CV 14.8 % (11.6-14.6); RBC Distribution Width SD 49.6 fl (35.1-43.9); Red Blood Count 3.69 M/mm3 (4.2-5.4); White Blood Count 4.4 K/mm3 (4.4-11.0)
--- OUTSIDE RECORDS SUMMARY | 2025-05-14 22:11 | XMS RPT_ITS | CCD ---
Author Organization [facility] Care Team Providers Care Account Service Associate Name Role Phone VITEBSKIY, KRYS Referring Unavailable CEBUL, DEMETRIS Primary Care Unavailable VITEBSKIY, KRYS Referring Unavailable CEBUL, DEMETRIS Primary Care Unavailable VITEBSKIY, KRYS Referring Unavailable CEBUL, DEMETRIS Primary Care Unavailable VITEBSKIY, KRYS Referring Unavailable CEBUL, DEMETRIS Primary Care Unavailable VITEBSKIY, KRYS Referring Unavailable CEBUL, DEMETRIS Primary Care Unavailable VITEBSKIY, KRYS Referring Unavailable CEBUL, DEMETRIS Primary Care Unavailable VITEBSKIY, KRYS Referring Unavailable CEBUL, DEMETRIS Primary Care Unavailable VITEBSKIY, KRYS Referring Unavailable CEBUL, DEMETRIS Primary Care Unavailable VITEBSKIY, KRYS Referring Unavailable CEBUL, DEMETRIS Primary Care Unavailable VITEBSKIY, KRYS Referring Unavailable CEBUL, DEMETRIS Primary Care Unavailable VITEBSKIY, KRYS Referring Unavailable CEBUL, DEMETRIS Primary Care Unavailable VITEBSKIY, KRYS Referring Unavailable CEBUL, DEMETRIS Primary Care Unavailable SHASHANK FARIA Referring Unavailable CEBUL, DEMETRIS Primary Care Unavailable Cebul, Demetris A Primary Care Provider Troy Mckeon MD Primary Care Provider Troy Mckeon MD Primary Care Provider Troy Mckeon MD Primary Care Provider Kevin Andersen PA-C Primary Care Provider [phone] Kevin Andersen PA-C Primary Care Provider [phone] Kevin Andersen PA-C Primary Care Provider [phone] Raysa COOK MD, Demetris Avery Primary Care Provider Letha vailable Suppan COMPUTER SYSTEM SPECIALIST.AUTOMOBILE RENTAL AGENT, Anitra A Primary Care Provi vlad Yanely Andersen PA-C Primary Care Provider Unavailable Suppan COMPUTER SYSTEM SPECIALIST.AUTOMOBILE RENTAL AGENT, Anitra A Primary Care Provi vlad Suppan COMPUTER SYSTEM SPECIALIST.AUTOMOBILE RENTAL AGENT, Anitra A Primary Care Provi vlad Unavailable Primary Care Provider Unavailabl e Suppan, Anitra A Primary Care Provider Oneyda Kaplan RN Unavailable Unavailabl e QUINTEN FRANCO Attending Unavailable QUINTEN FRANCO Admitting Unavailable SUPPAN, ANITRA Primary Care Unavailable CLIFF TRONCOSO Attending Unavailable MARQUES KING. Referring Unavailable Suppan, Anitra Referring Unavailable Suppan, Anitra Attending Unavailable Kevin Granado Primary Care Unavailable Tony Villanueva Attending Unavailable Suppan, Anitra Primary Care Unavailable Grupo Mohan Referring Unavailable Suppan, Anitra Primary Care Unavailable Marques King Attending Unavailable Suppan, Anitra Referring Unavailable Grupo Mohan Attending Unavailable Suppan, Anitra Primary Care Unavailable Suppan, Anitra Primary Care Unavailable Suppan, Anitra Referring Unavailable Marques King Attending Unavailable Suppan, Anitra Primary Care Unavailable Suppan, Anitra Referring Unavailable Marques King Attending Unavailable Suppan, Anitra Primary Care Unavailable Suppan, Anitra Referring Unavailable Av De Lunae Attending Unavailable Annamarie, Andi Referring Unavailable Suppan, Anitra Primary Care Unavailable Annamarie Andi Attending Unavailable Suppan, Anitra Primary Care Unavailable Annamarie, Andi Attending Unavailable Annamarie, Andi Referring Unavailable Suppan, Anitra Primary Care Unavailable Annamarie, Andi Attending Unavailable Ananmarie, Andi Referring Unavailable Suppan, Anitra Primary Care Unavailable Annamarie, Andi Attending Unavailable Annamarie, Andi Referring Unavailable Suppan, Anitra Primary Care Unavailable Annamarie, Andi Attending Unavailable Whitney Mays Attending Unavailable Suppan, Anitra Primary Care Unavailable Kevin Granado Primary Care Unavailable Hugh De Anda Attending Unavailable Suppan, Anitra Referring Unavailable Kendra Hahn NP Attending Unavailable Suppan, Anitra Primary Care Unavailable Suppan, Anitra Primary Care Unavailable Hugh De Anda Attending Unavailable Grupo Mohan Referring Unavailable Grupo Mohan Attending Unavailable Suppan, Anitra Primary Care Unavailable Suppan, Anitra Primary Care Unavailable Andi De Luna Unavailable Marques King Referring Unavailable Marques King Attending Unavailable SUPPAN, ANITRA A Primary Care Unavailable SUPPAN, ANITRA A Attending Unavailable SUPPAN, ANITRA A Primary Care Unavailable DAWIT PHELAN Attending Unavailable SUPPAN, ANITRA A Primary Care Unavailable DAWIT PHELAN Referring Unavailable SUPPAN, ANITRA A Primary Care Unavailable SUPPAN, ANITRA A Primary Care Unavailable SUPPAN, ANITRA A Attending Unavailable YANELY ANDERSEN Primary Care Unavailable SUPPAN, ANITRA A Attending Unavailable YANELY ANDERSEN Primary Care Unavailable SUPPAN, ANITRA A Referring Unavailable YANELY ANDERSEN Primary Care Unavailable SUPPAN, ANITRA A Attending Unavailable SUPPAN, ANITRA A Primary Care Unavailable SUPPAN, ANITRA A Attending Unavailable YANELY ANDERSEN Primary Care Unavailable LINDSEY STAPLETON Attending Unavailable SUPPAN, ANITRA A Primary Care Unavailable SUPPAN, ANITRA A Referring Unavailable SUPPAN, ANITRA A Primary Care Unavailable SHIRA ORDONEZ Attending Unavailable SUPPAN, ANITRA A Primary Care Unavailable SUPPAN, ANITRA A Referring Unavailable DASIA FUNES Attending Unavaila ble YANELY ANDERSEN Primary Care Unavailable SUPPAN, ANITRA A Referring Unavailable SHOSHANA CHAMBERS Attending Unavailable YANELY ANDERSEN Primary Care Unavailable SHOSHANA CHAMBERS Referring Unavailable YANELY ANDERSEN Primary Care Unavailable SUPPAN, ANITRA A Primary Care Unavailable SUPPAN, ANITRA A Attending Unavailable SUPPAN, ANITRA A Primary Care Unavailable SELF Referring Unavailable SUPPAN, ANITRA A Primary Care Unavailable GRUPO MOHAN Referring Unavailable SUPPAN, ANITRA A Primary Care Unavailable SUPPAN, ANITRA A Primary Care Unavailable SUPPAN, ANITRA A Attending Unavailable SUPPAN, ANITRA A Primary Care Unavailable SUPPAN, ANITRA A Referring Unavailable SUPPAN, ANITRA A Primary Care Unavailable SUPPAN, ANITRA A Referring Unavailable YANEYL ANDERSEN Primary Care Unavailable SUPPAN, ANITRA A Referring Unavailable ANDERSEN, YANELY MARY Primary Care Unavailable MARY JO STAPLETONISTEN Referring Unavailable ANITRA MANCERA Primary Care Unavailable Allergies Allergy Classification Reported Allergen(s) Allergy Type Date of Onset Reaction(s) Facility (20 sources) Acetaminophen / HYDROcodone; Translations: [HYDROCODONE-ACETA MINOPHEN] Drug Allergy 05-04-20 13 Nausea Only, GI Upset, Other [facility] Repository (20 sources) Acetaminophen / oxyCODONE; Translations: [OXYCODONE-ACETAMI NOPHEN] Drug Allergy 04-22-20 13 Nausea Only, GI Upset, Other [facility] Repository (20 sources) Codeine; Translations: [CODEINE] Drug Allergy 03-19-20 07 Swelling, GI Upset, Other [facility] Repository (20 sources) Sulfonamides (Antibiotic); Translations: [SULFA (SULFONAMIDE ANTIBIOTICS)] Propensity to adverse reactions (disorder) 03-19-20 07 Hives, Swelling [facility] Repository (2 sources) Sulfonamides (Antibiotic) Propensity to adverse reactions to drug 03-19-20 07 Hives, Swelling [place], [place] (2 sources) Tetracyclines & Related Propensity to adverse reactions to drug 08-07-20 19 Nausea Only [place], [place] (20 sources) Tetracycline; Translations: [TETRACYCLINE] Drug Allergy 04-29-20 19 GI Upset [facility] (20 sources) Cocamidopropyl Betaine; Translations: [COCAMIDOPROPYL BETAINE] Drug Intolerance 07-27-20 20 Rash [facility] (2 sources) HYDROcodone; Translations: [hydrocodone bitartrate] Drug Allergy 10-06-[address] [facility] Repository (1 source) Mold Extract Drug Allergy 09-07-[address] [facility] Work Phone: (2 sources) oxyCODONE; Translations: [oxycodone HCl] Drug Allergy 10-06-[address] [facility] Repository (2 sources) Environmental Allergies: Uncoded; Translations: [Environmental Allergies: Uncoded] Propensity to adverse reactions 09-07-[address] [facility] Repository (20 sources) busPIRone; Translations: [BUSPIRONE] Drug Allergy 04-21-20 24 Intolerance, Other [facility] (20 sources) pantoprazole; Translations: [PANTOPRAZOLE] Drug Allergy 12-18-19 25 GI Upset, Other [facility] (4 sources) Sulfonamides (Antibiotic) Propensity to adverse reactions 03-19-20 07 Hives, Swelling [facility] (4 sources) Tetracycline (class of antibiotic) Drug Intolerance 04-29-20 19 Other, Nausea Only [facility] (4 sources) Cocamidopropyl Betaine Propensity to adverse reactions 07-27-20 Rash [facility] (1 source) diphenhydrAMINE Drug Allergy 04-14-20 [facility] Repository (1 source) Metoprolol Drug Allergy 04-14-20 [facility] Repository (1 source) Mold Extract Drug Allergy 04-14-20 [facility] Repository (1 source) Tetracycline Drug Allergy 04-14-20 [facility] Repository (1 source) cocamidopropyl betaine Drug allergy (disorder) 04-14-20 [facility] Repository Medications Current Medications Medication Drug Class(es) Dates Sig (Normalized) Sig (Original) acetaminophen 325 mg oral tablet (20 sources) Start: 05-15-2019 take 500 mg by mouth every four hours as needed Acetaminophen Active 500 MG PO EVERY 4 HOURS NEEDED May 14, 2019 11:00pm Start: 04-12-2010 take 2 tablets by [facility] every eight hours as needed ACETAMINOPHEN 500 MG TAB Take 1,000 mg by mouth every 8 hours as needed for pain. 0 04/12/2010 Active Start: 04-12-2010 ACETAMINOPHEN 500 MG TAB Take one(1) tablet every four(4) to six(6) hours as needed for pain. 0 04/12/2010 Active acetaminophen (T ylenol) 500 MG tablet Take 500 mg by mouth if needed. Active Comment on above: Take one(1) tablet e very four(4) to six(6) hours as needed for pain. 200 actuat albuterol 0.09 mg/actuat metered dose inhaler (14 sources) beta2-Adrenergic Agonist Start: 11-08-2017 albuterol sulfate HFA (VENTOLIN HFA) 108 (90 Base) MCG/ACT inhaler Ventolin HFA 90 mcg/actuation aerosol inhaler 0 11/08/2017 Active Start: 11-08-2017 End: 10-01-2022 take 2 puff(s) by inhalation every four hours as needed for wheezing albuterol HFA (PROVENTIL HFA, VENTOLIN HFA) 90 mcg/actuation inhaler Inhale 2 Puffs as instructed every 4 hours as needed for Wheezing/Shortness of Breath. 1 Inhaler 11 11/08/2017 10/01/2022 Discontinued Start: 05-09-2014 take 1 puff(s) by in halation every four hours as needed Albuterol Sulfate Active 1 PUFF INHALATION EVERY 4 HOURS NEEDED May 08, 2014 11:00pm Comment on above: Inhale 2 Puffs as in structed every 4 hours as needed for Wheezing/Shortness of Breath. ALPRAZolam 0.5 mg oral tablet (7 sources) Benzodiazepine Start: 06-05-2024 End: 06-05-2024 ALPRAZolam (XANAX) 0.5 mg tablet Indications: Anxiety Take 2 tablets by mouth one time only for 1 dose. Take 30 minutes prior to MRI. 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 14 tablet 0 12/25/2022 01/01/2023 Active Comment on above: Take 1 tablet by mouth twice daily for 7 days. amylase 82967 unt / lipase 3000 unt / protease 9500 unt delayed release oral capsule (1 source) Start: 05-13-2025 End: 11-09-2025 take 1 capsule by mouth three times daily at mealtime ddalhy-kgisjxkl-iqvoxcp (CREON) 3,000-9,500- 15,000 unit delayed release capsule Indications: Pancreatic insufficiency (HCC) Take 1 capsule by mouth three times a day with meals. 90 capsule 5 05/13/2025 11/09/2025 Active ascorbic acid 113 mg / beta carotene 7160 mg / cuprous oxide 0.4 mg / dl-alpha tocopheryl acetate 100 unt / zinc oxide 17.4 mg oral tablet (20 sources) Vitamin C Start: 09-23-2015 take 1 tablet by mouth once daily vit A,C,K-Rrzj-Tufoql (PRESERVISION AREDS) 7,160-113-100 yqyg-ac-lujq tab Take 1 tablet by mouth once daily. 0 09/23/2015 Active Start: 09-23-2015 vit A,C,E-Zinc -Copper (PRESERVISION AREDS) 7,160-113-100 qhvg-kd-zbbw tab Take by mouth. 0 09/23/2015 Active Comment on above: Take by mouth. B Pzhnguk-Btoyah-GS (GNP B-100 Complex) tablet controlled-release (4 sources) Start: 08-21-2024 End: 08-21-2025 take 1 tablet by mouth once daily B Cqulqfn-Pfrcmm-[place] (GNP B-100 Complex) tablet controlled-release Take 100 mg by mouth daily. 08/21/2024 08/21/2025 Active clonazePAM 0.25 mg disintegrating oral tablet (20 sources) Benzodiazepine Start: 05-04-2014 End: 11-22-2017 take 0.25 mg by mouth once daily Clonazepam Active 0.25 MG PO DAILY November 22, 2017 8:13am take 1 tablet by laura th every twenty-four hours as needed clonazePAM (KLONOPIN) 0.5 mg tablet Take 0.5 mg by mouth at bedtime as needed. Dr Dupree Active End: 04-11-2021 take 1 tablet by mouth every twelve hours as needed clonazePAM orally disintegrating (KLONOPIN WAFER) 0.25 mg disintegrating tablet Take 0.25 mg by mouth twice daily as needed. 04/11/2021 Discontinued (Dosage adjustment) clonazePAM (KLON OPIN) 0.5 MG tablet 0.25 mg daily. 0 Active Comment on above: Take 0.5 mg by mouth at bedtime as needed. Dr Dupree doxycycline hyclate 100 mg oral capsule (2 sources) Tetracycline-class Drug Start: 11-26-20 End: 12-06-19 take 1 capsule by mouth twice daily doxycycline hyclate (VIBRAMYCIN) 100 mg capsule Indications: H pylori ulcer Take 1 capsule (100 mg) by mouth two times a day for 10 days. 20 capsule 11/26/2024 12/06/2024 Active 2 ml dupilumab 150 mg/ml auto-injector (2 sources) Interleukin-4 Receptor alpha Antagonist Start: 09-19-20 End: 04-11-20 Dupilumab Active 300 MG SQ .QOWEEK September 18, 2020 11:00pm enteric contrast (will be provided with radiology test) (2 sources) Start: 04-02-20 End: 04-03-20 enteric contrast (will be provided with radiology test) Indications: Acute constipation , Abnormal weight loss , Constipation, unspecified constipation type For CT ABD/PEL W IVCON Routine order Administer, As Directed One Time Only, via Oral, Rectal, both Oral and Rectal, Enteric Tube, Stoma or Indwelling Catheter, Enteric Contrast as designated per enteric contrast guidelines 1 Each 0 04/02/2024 04/03/2024 Active fluconazole 100 mg oral tablet (4 sources) Azole Antifungal Start: 08-04-20 End: 09-17-20 take 1 tablet by mouth once fluconazole (DIFLUCAN) 100 mg tablet Take 1 tablet by mouth every afternoon. 08/04/2024 09/17/2024 Discontinued (Course of therapy completed) fluticasone propionate (ARMONAIR DIGIHALER) 232 mcg/actuation inhaler (20 sources) Start: 03-24-20 take 1 puff(s) by inhalation twice daily fluticasone propionate (ARMONAIR DIGIHALER) 232 mcg/actuation inhaler Inhale 1 Puff as instructed two times a day. 03/24/2024 Active Start: 03-24-2024 take 1 puff(s) by in halation twice daily fluticasone propionate (ARMONAIR DIGIHALER) 232 mcg/actuation inhaler Inhale 1 Puff as instructed two times a day. 0 03/24/2024 Active fluticasone, sensor, (ArmonAir Digihaler) 232 MCG/ACT inhaler (4 sources) Start: 03-24-2024 take 1 puff(s) by inhalation twice daily fluticasone, sensor, (ArmonAir Digihaler) 232 MCG/ACT inhaler Inhale 1 puff twice a day. 03/24/2024 Active 200 actuat levalbuterol 0.045 mg/actuat metered dose inhaler (20 sources) beta2-Adrenerg ic Agonist Start: 03-24-2024 take 1-2 puff(s) by inhalation every four hours as needed for wheezing levalbuterol tartrate HFA 45 mcg/actuation inhaler Inhale 1-2 Puffs as instructed every 4 hours as needed for wheezing/shortness of breath. 03/24/2024 Active Start: 03-24-2024 take 1-2 puff(s) by inhalation every four hours as needed levalbuterol (Xopenex) 45 MCG/ACT inhaler Inhale 1-2 puffs every 4 hours as needed. 03/24/2024 Active levothyroxine sodium 0.075 mg oral tablet (20 sources) l-Thyroxine Start: 02-08-2025 take 1 tablet by mouth once daily before breakfast levothyroxine (SYNTHROID) 75 mcg tablet Take 75 mcg by mouth daily before breakfast. 02/08/2025 Active Start: 05-01-2024 End: 05-13-2025 levothyroxine (SYNTHROID) 50 mcg tablet Take 50 mcg by mouth. Take 50 mcg on Saturday, and 75 mcg all other days of the week, per ENDO 05/01/2024 05/13/2025 Discontinued (Duplicate Entry) Start: 09-22-2020 take 50 ug by mouth once daily Levothyroxine Active 50 MCG PO DAILY September 21, 2020 11:00pm Start: 01-31-2018 End: 09-22-2020 take 50 ug by mouth once daily Levothyroxine Discontin ued 50 MCG PO daily January 31, 2018 12:00am September 22, 2020 8:45am Start: 10-04-2017 End: 06-18-2024 take 1 tablet by mouth once daily for thyroid dysfunction levothyroxine (SYNTHROID) 75 mcg tablet Indications: Acquired hypothyroidism Take 1 tablet by mouth once daily. Take on empty stomach. For Thyroid 30 tablet 11 10/04/2017 05/29/2023 Discontinued Start: 05-04-2014 End: 01-31-2018 take 50 ug by mouth once daily Levothyroxine Discontin ued 50 MCG PO DAILY May 03, 2014 11:00pm January 31, 2018 9:56am Comment on above: Take 1 tablet by laura th once daily. Take on empty stomach. For Thyroid Take 75 mcg on empty stomach Thurs & Sun; 50 mcg on an empty stomach all other days methylPREDNISolone 4 mg oral tablet (1 source) Corticosteroid Start : 08-07 methylPREDNISolone (MEDROL DOSEPACK) 4 MG tablet Take 1 tablet by mouth See Admin Instructions Take as directed on package. 1 kit 0 08/07/2019 Active metroNIDAZOLE 250 mg oral tablet (2 sources) Nitroimidazole Antimicrobial Start : 11-26 End: 12-06 take 1 tablet by mouth four times daily metroNIDAZOLE (FLAGYL) 250 mg tablet Indications: H pylori ulcer Take 1 tablet by mouth four times daily for 10 days. 40 tablet 11/26/2024 12/06/2024 Active 30 actuat mometasone furoate 0.11 mg/actuat dry powder inhaler (2 sources) Corticosteroid Start : 05-13 take 110 ug by inhalation once daily Mometasone Active 110 MCG INHALATION DAILY May 12, 2019 11:00pm Mometasone Furoa te (ASMANEX HFA IN) Inhale into the lungs daily 0 Active Multiple Vitamins-Minerals (PRESERVISION AREDS 2 PO) (1 source) Multiple Vitamins-Minerals (PRESERVISION AREDS 2 PO) Take by mouth 0 Active nitrofurantoin, macrocrystals 25 mg / nitrofurantoin, monohydrate 75 mg oral capsule (6 sources) Nitrofuran Antibacterial Start: 2024 End: 2024 take 1 capsule by mouth twice daily at mealtime nitrofurantoin monohydrate and macrocrystal (MACROBID) 100 mg capsule Indications: Urinary urgency Take 1 capsule by mouth two times a day with meals for 5 days. 10 capsule 03/15/2025 03/20/2025 Active ondansetron 4 mg oral tablet (20 sources) Serotonin-3 Receptor Antagonist Start: 2024 End: 2024 take 1 tablet by mouth every eight hours as needed for nausea ondansetron (ZOFRAN) 4 mg tablet Indications: 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) Take 1 tablet by mouth every 8 hours as needed for nausea/vomiting. 90 tablet 2 03/15/2025 06/13/2025 Active Start: 11-23-2024 End: 12-23-2024 take 1 tablet by mouth every eight hours as needed for nausea ondansetron (ZOFRAN) 4 mg tablet Indications: Belching , Epigastric pain Take 1 tablet by mouth every 8 hours as needed for nausea/vomiting. 60 tablet 11/23/2024 12/23/2024 Active Start: 02-07-2024 End: 05-07-2024 take 1 tablet by mouth every six hours as needed for nausea and nausea ondansetron orally disintegrating (ZOFRAN ODT) 4 mg disintegrating tablet Indications: Nausea Take 1 tablet by mouth every 6 hours as needed for nausea/vomiting. 60 tablet 2 02/07/2024 03/24/2024 Discontinued Start: 05-09-2014 End: 11-07-2017 take 4 mg by mouth every eight hours as needed Ondansetron Discontinued 4 MG PO EVERY 8 HOURS NEEDED May 08, 2014 11:00pm November 07, 2017 1:49pm Comment on above: Take 1 tablet by laura every 6 hours as needed for nausea/vomiting. polyethylene glycol 3350 75967 mg powder for oral solution (1 source) Osmotic Laxative Start: 02-01-20 18 Polyethylene Glycol 3350 (Miralax) 17 gram/dose powder Active 17 GM PO daily January 31, 2018 12:00am polyethylene glycol 3350 176529 mg / potassium chloride 2970 mg / sodium bicarbonate 6740 mg / sodium chloride 5860 mg / sodium sulfate 65673 mg powder for oral solution (1 source) Osmotic Laxative Start: 04-02-20 24 End: 04-02-20 24 peg 3350-Electrolytes (GOLYTELY) 236-22.74-6.74 -5.86 gram suspension Indications: Acute constipation , Abnormal weight loss , Constipation, unspecified constipation type Take 4,000 mL by mouth one time only for 1 dose. Refer to printed prep instructions from your provider. 4000 mL 0 04/02/2024 04/02/2024 Active rOPINIRole 0.5 mg oral tablet (20 sources) Nonergot Dopamine Agonist Start: 02-16-20 25 take 1.5 tablets by mouth once daily at bedtime rOPINIRole (REQUIP) 0.5 mg tablet Indications: RLS (restless legs syndrome) Take 1.5 tablets by mouth daily at bedtime. 135 tablet 1 02/15/2025 Active Start: 08-19-2023 End: 01-22-2025 take 1.5 tablets by mouth once daily at bedtime rOPINIRole (REQUIP) 0.5 mg tablet Indications: RLS (restless legs syndrome) Take 1.5 tablets by mouth daily at bedtime. 135 tablet 1 11/16/2024 01/22/2025 Discontinued (Discontinued by Patient) Start: 08-14-2022 End: 08-19-2023 take 1 tablet by mouth once daily at bedtime rOPINIRole (REQUIP) 0.5 mg tablet Indications: RLS (restless legs syndrome) Take 1 tablet by mouth daily at bedtime. 30 tablet 2 08/14/2022 12/13/2022 Discontinued Start: 08-14-2022 End: 08-14-2022 take 2 tablets by mouth once daily at bedtime rOPINIRole (REQUIP) 0.25 mg tablet Take 2 tablets by mouth daily at bedtime. 30 tablet 5 08/14/2022 08/14/2022 Discontinued Start: 03-05-2022 End: 08-14-2022 take 0.5 tablet by mouth once daily at bedtime rOPINIRole (REQUIP) 0.25 mg tablet Take 0.5 tablets by mouth daily at bedtime. 30 tablet 5 07/30/2022 08/14/2022 Discontinued Comment on above: Take 0.5 tablets by mouth daily at bedtime. Take 1 tablet by laura th daily at bedtime. Take 2 tablets by mo uth daily at bedtime. Take 1.5 tablets by mouth daily at bedtime. Vit B Complex 100 Combo No.2 (B-100 COMPLEX) 100 mg TbER (20 sources) Start: 08-21-2024 End: 08-21-2025 take 1 tablet by mouth once daily Vit B Complex 100 Combo No.2 (B-100 COMPLEX) 100 mg TbER Indications: Burning mouth syndrome Take 1 tablet by mouth once daily. 30 tablet 11 08/21/2024 08/21/2025 Active Vit C,Z-Zv-Mmagc-Lutein -Zeaxan (1 source) Start: 09-19-2020 Vit C,X-Gr-Xpuyr-Lutein -Zeaxan Active 2 EACH PO DAILY September 18, 2020 11:00pm Vit C,R-Lk-Zwmef-Lutein -Zeaxan (Preservision Areds-2) 533-904-24-1 rw-kscb-va-mg capsule (1 source) Start: 11-22-2017 take 1 tablet by mouth twice daily Vit C,Y-Jp-Djdwo-Lutein -Zeaxan (Preservision Areds-2) 722-252-87-1 dp-fbmd-mt-mg capsule Active 1 TABLET PO TWICE A DAY November 22, 2017 12:00am Completed/Discontinued Medications Medication Drug Class(es) Dates Sig (Normalized) Sig (Original) amoxicillin 500 mg oral capsule (10 sources) Penicillin-class Antibacterial Start: 04-05-2022 End: 10-01-2022 amoxicillin (POLYMOX, AMOXIL) 500 mg capsule Indications: History of knee replacement, total, bilateral 2000mg by mouth 1 hour prior to procedure 4 capsule 1 04/05/2022 10/01/2022 Discontinued (Course of therapy completed) Comment on above: 2000mg by mouth 1 ho ur prior to procedure ascorbic acid 500 mg oral tablet (5 sources) Vitamin C take 1 tablet by mouth twice daily ascorbic acid, vitamin C, (VITAMIN C) 500 mg tablet Take 500 mg by mouth twice daily. 0 Active Comment on above: Take 500 mg by mouth twice daily. aspirin 81 mg delayed release oral tablet (14 sources) Platelet Aggregation Inhibitor, Nonsteroidal Anti-inflammatory Drug Start: 01-17-2024 End: 04-02-2024 take 1 tablet by mouth once daily aspirin, enteric coated (ASPIRIN, ENTERIC COATED) 81 mg EC tablet Indications: Palpitations , Shortness of breath Take 1 tablet by mouth once daily. 30 tablet 01/17/2024 04/02/2024 Discontinued take 1 tablet by mouth once donald y aspirin 81 MG tablet Take 81 mg by mouth daily 0 Active Comment on above: Take 1 tablet by laura th once daily. azithromycin 250 mg oral tablet (2 sources) Macrolide Antimicrobial Start: End: azithromycin (ZITHROMAX Z-LUDY) 250 mg tablet Take 2 tablets day one, then, 1 tablet daily until gone. 6 tablet 10/01/2022 10/06/2022 Comment on above: Take 2 tablets day o ne, then, 1 tablet daily until gone. bismuth subsalicylate 262 mg chewable tablet (4 sources) Bismuth Start: 024 End: take 2 tablets by mouth four times daily bismuth subsalicylate (PEPTO-BISMOL) 262 mg chewable tablet Indications: H pylori ulcer Take 2 tablets by mouth four times daily for 10 days. 80 tablet 11/26/2024 12/18/2024 Discontinued (Course of therapy completed) cholecalciferol 0.025 mg oral capsule (20 sources) Vitamin D End: Cholecalciferol, Vitamin D3, (VITAMIN D) 25 mcg (1,000 unit) cap Take 1,000 Units by mouth once daily. 05/13/2025 Discontinued (Discontinued by Patient) cholecalciferol (D 1000) 25 MCG (1000 UT) capsule Take 1,000 Units by mouth daily. Active Comment on above: Take 1,000 Units by mouth once daily. cholecalciferol, vitamin D3, (VITAMIN D3 ORAL) (10 sources) End: 10-01-2022 cholecalciferol, vitamin D3, (VITAMIN D3 ORAL) Take 2,000 Units by mouth. 0 10/01/2022 Discontinued (Discontinued by Patient) cholecalciferol, vitamin D3, (VITAMIN D3 ORAL) Take 2,000 Units by mouth. 0 Active Comment on above: Take 2,000 Units by mouth. dilTIAZem (9 sources) Calcium Channel Grzegorz Start: 11-13-2022 End: 11-13-2022 dilTIAZem ointment 2% (CPD) Indications: Acute midline low back pain without sciatica by RECTAL route twice daily. 30 g 11/13/2022 11/13/2022 Discontinued Start: 11-13-2022 End: 01-22-2023 dilTIAZem ointment 2% (CPD) Indications: Acute midline low back pain without sciatica by RECTAL route twice daily. 30 g 0 11/13/2022 01/22/2023 Discontinued Start: 11-13-2022 dilTIAZem oint ment 2% (CPD) Indications: Acute midline low back pain without sciatica by RECTAL route twice daily. 30 g 0 11/13/2022 Active Start: 11-13-2022 End: 11-13-2022 dilTIAZem ointment 2% (CPD) Indications: Acute midline low back pain without sciatica by RECTAL route twice daily. 30 g 0 11/13/2022 11/13/2022 Discontinued Comment on above: by RECTAL route twic e daily. docusate sodium 100 mg oral tablet (1 source) Start: 2017 End: 2017 take 100 mg by mouth twice daily Docusate Sodium Discontinued 100 MG PO TWICE A DAY December 26, 2017 12:00am January 31, 2018 9:55am escitalopram 5 mg oral tablet (2 sources) Serotonin Reuptake Inhibitor Start: 2024 End: 2024 take 2.5 mg by mouth once daily escitalopram oxalate (LEXAPRO) 5 mg tablet Take 2.5 mg by mouth once daily. 04/12/2025 05/13/2025 Discontinued (Discontinued by Patient) ferrous gluconate 324 mg oral tablet (5 sources) Start: 2022 take 1 tablet by mouth once daily ferrous gluconate 324 mg (37.5 mg iron) tablet Take 1 tablet by mouth once daily. 90 tablet 1 07/05/2023 Active Comment on above: Take 1 tablet by laura th once daily. ferrous sulfate 325 mg oral tablet (20 sources) Start: 2021 End: 2022 take 1 tablet by mouth once daily at breakfast ferrous sulfate 325 mg (65 mg iron) tablet Take 1 tablet by mouth daily with breakfast. 30 tablet 1 10/15/2022 12/13/2022 Discontinued Comment on above: Take 1 tablet by laura th daily with breakfast. fluorometholone 2.5 mg/ml ophthalmic suspension (2 sources) Corticosteroid Start: 2017 End: 2019 Fluorometholone (Fml Forte) 0.25 % drops,suspension Discontinued 1 DRP OPHTHALMIC EVERY 6 HOURS January 31, 2018 9:55am August 10, 2020 12:34pm Start: 11-22-2017 End: 01-31-2018 Fluorometholone (Fml Forte) 0.25 % drops,suspension Discontinued 1 DRP OPHTHALMIC EVERY 6 HOURS November 22, 2017 12:00am January 31, 2018 9:57am FLUoxetine 10 mg oral capsule (1 source) Serotonin Reuptake Inhibitor Start: 06-22-2020 End: 04-11-2021 take 1 capsule by mouth once daily FLUoxetine (PROZAC) 10 mg capsule Take 1 capsule by mouth once daily. 30 capsule 11 06/22/2020 04/11/2021 Discontinued (Discontinued by Patient) fluticasone propionate 0.05 mg/actuat metered dose nasal spray (20 sources) Corticosteroid Start: 12-25-2022 End: 01-22-2023 take 2 spray(s) by mouth once daily fluticasone (FLONASE) 50 mcg/actuation nasal spray Use 2 Sprays in each nostril once daily. Rinse mouth after use. 1 Each 0 12/25/2022 01/22/2023 Discontinued End: 04-11-2021 take 2 spray(s) nasal route once daily Fluticasone Furoate (FLONASE SENSIMIST) 27.5 mcg/actuation nasal spray Use 2 Sprays in each nostril once daily. 04/11/2021 Discontinued (Discontinued by Patient) End: 04-02-2024 fluticasone propionate (ARMO BOONE DIGIHALER INHALATION) Inhale as instructed. 04/02/2024 Discontinued End: 04-02-2024 fluticasone propionate (ARMO BOONE DIGIHALER INHALATION) Inhale as instructed. 0 04/02/2024 Discontinued fluticasone prop ionate (ARMONAIR DIGIHALER INHALATION) Inhale as instructed. 0 Active take 1 spray(s) nasa l route once daily fluticasone (FLONASE) 50 MCG/ACT nasal spray 1 spray by Each Nostril route daily 0 Active Comment on above: Inhale as instructed . Use 2 Sprays in each nostril once daily. Rinse mouth after use. 60 actuat formoterol fumarate 0.005 mg/actuat / mometasone furoate 0.1 mg/actuat metered dose inhaler (13 sources) Corticosteroid, beta2-Adrenergic Agonist Start: 021 End: take 2 puff(s) by inhalation twice daily mometasone-formotero l (DULERA) 100-5 mcg/actuation inhaler Inhale 2 Puffs as instructed twice daily. 06/14/2021 11/06/2022 Discontinued Comment on above: Inhale 2 Puffs as in structed twice daily. gabapentin 100 mg oral capsule (8 sources) Anti-epileptic Agent Start: 09 End: take 1 capsule by mouth three times daily gabapentin (NEURONTIN) 100 mg capsule Indications: Burning mouth syndrome Take 1 capsule by mouth three times a day for 180 days. 90 capsule 5 11/05/2024 11/23/2024 Discontinued (Discontinued by Patient) hydrocortisone 25 mg/ml topical cream (5 sources) Corticosteroid Start: End: apply 15 g rectal route twice daily hydrocortisone (ANUSOL-HC) 2.5 % rectal cream by RECTAL route twice daily. 15 g 1 11/09/2022 12/09/2022 Comment on above: by RECTAL route twic e daily. ibuprofen 200 mg oral tablet (1 source) Nonsteroidal Anti-inflammatory Drug Start: End: take 200 mg by mouth every six hours as needed Ibuprofen Discontinued 200 MG PO EVERY 6 HOURS NEEDED May 14, 2019 11:00pm August 10, 2020 12:34pm iv contrast (will be provided with radiology test) (4 sources) Start: End: iv contrast (will be provided with radiology test) Indications: Abnormal weight loss , Pancreatic lesion MRI PANC/JENNIFER Inject, intravenously, once for 1 dose. No IV access, insert saline lock prior to the beginning of sedation, infusion, injection of imaging exam. Discontinue saline lock post exam. If Pt. has a central line or IVAD, may access for administration according to line specific nursing protocol. Once exam is complete flush line and de-access according to line specific nursing protocol in the MR contrast administration guidelines link. 1 Each 0 04/28/2024 04/29/2024 Start: 04-28-2024 End: 04-29-2024 iv contrast (will be provide d with radiology test) Indications: Abnormal weight loss , Pancreatic lesion MRI PANC/JENNIFER Inject, intravenously, once for 1 dose. No IV access, insert saline lock prior to the beginning of sedation, infusion, injection of imaging exam. Discontinue saline lock post exam. If Pt. has a central line or IVAD, may access for administration according to line specific nursing protocol. Once exam is complete flush line and de-access according to line specific nursing protocol in the MR contrast administration guidelines link. 1 Each 0 04/28/2024 04/29/2024 Active Start: 04-02-2024 End: 04-03-2024 iv contrast (will be provide d with radiology test) Indications: Acute constipation , Abnormal weight loss , Constipation, unspecified constipation type CT ABD/PEL -Inject, intravenously, once for 1 dose.No IV access, insert saline lock prior to the beginning of sedation, infusion, injection of imaging exam. Discontinue saline lock post exam. If Pt. has a central line or IVAD, may access for administration according to line specific nursing protocol. Once exam is complete flush line and de-access according to line specific nursing protocol in the CT contrast administration guidelines link. 1 Each 0 04/02/2024 04/03/2024 Active lactulose 667 mg/ml oral solution (7 sources) Osmotic Laxative Start: 02-06-2024 End: 08-04-2024 take 30 mL by mouth once daily lactulose 10 gram/15 mL solution Indications: Chronic constipation Take 30 mL by mouth once daily. 473 mL 5 02/06/2024 04/02/2024 Discontinued Comment on above: Take 30 mL by mouth once daily. 10 ml lidocaine hydrochloride 20 mg/ml injection (2 sources) Antiarrhythmic, Amide Local Anesthetic Start: 02-10-2025 End: 02-10-2025 IntraVENous, As needed, Starting on Sat02/10/25 at 1204, Anesthesia Intraprocedure Start: 08-21-2024 End: 09-05-2024 LIDOCAINE VISCOUS 2 % soluti on Indications: Burning mouth syndrome Take 15 mL by mouth as needed for up to 15 days. 300 mL 1 08/21/2024 09/05/2024 Active LORazepam 0.5 mg oral tablet (1 source) Benzodiazepine Start: 05-09-2014 End: 11-07-2017 take 0.5 mg by mouth three times daily as needed Lorazepam Discontinued 0.5 MG PO 3 TIMES DAILY NEEDED May 08, 2014 11:00pm November 07, 2017 1:46pm MEDICATION, NON-DATABASE (20 sources) End: 05-13-2025 MEDICATION, NON-DATABASE CBD oil 05/13/2025 Discontinued (Clinical Decision) MEDICATION, NON- DATABASE CBD oil Active MEDICATION, NON- DATABASE CBD oil 0 Active melatonin 10 mg oral capsule (19 sources) End: 08-21-2024 melatonin 10 mg cap Take by mouth. 08/21/2024 Discontinued (Discontinued by Patient) Jilekyrkfnuh-Ar-Fcq n-Minerals (1 source) Start: 05-04-2014 End: 01-31-2018 take 1 tablet by mouth once daily Oeogfglbclin-Td-Kw on-Minerals Discontinued 1 TABLET PO DAILY May 03, 2014 11:00pm January 31, 2018 9:56am naproxen sodium 220 mg oral tablet (10 sources) Nonsteroidal Anti-inflammatory Drug End: 10-01-2022 take 1 tablet by mouth once daily naproxen sodium (ALEVE) 220 mg tablet Take 220 mg by mouth once daily. 0 10/01/2022 Discontinued (Discontinued by Patient) Comment on above: Take 220 mg by mouth once daily. nortriptyline 10 mg oral capsule (20 sources) Tricyclic Antidepressant Start: 11-23-2024 End: 11-23-2024 take 2 capsules by mouth once daily at bedtime nortriptyline (PAMELOR) 10 mg capsule Indications: neuropathic pain Take 20 mg by mouth daily at bedtime. 11/23/2024 11/23/2024 Start: 03-03-2024 End: 11-12-2024 take 2 capsules by mouth once daily at bedtime nortriptyline (PAMELOR) 10 mg capsule Indications: neuropathic pain Take 20 mg by mouth daily at bedtime. 03/03/2024 11/12/2024 Discontinued (Discontinued by Patient) Start: 03-03-2024 take 5 capsules by m outh once daily at bedtime nortriptyline (PAMELOR) 10 mg capsule Indications: neuropathic pain Take 50 mg by mouth daily at bedtime. 03/03/2024 Active Start: 03-03-2024 take 1 capsule by mo uth every twelve hours nortriptyline (PAMELOR) 10 mg capsule Take 1 capsule by mouth every 12 hours. 03/03/2024 Active Start: 05-13-2023 End: 01-01-2024 take 3 tablets by mouth once daily at bedtime nortriptyline (PAMELOR) 10 mg capsule Take 10 mg by mouth. 3 tabs daily at bedtime 0 05/13/2023 01/01/2024 Discontinued Start: 11-22-2017 End: 05-29-2023 take 1 capsule by mouth at bedtime nortriptyline (PAMELOR) 25 MG capsule TAKE 1 CAPSULE BY MOUTH AT BEDTIME 2 06/16/2019 Active take 1 capsule by mo uth once daily nortriptyline (Pamelor) 10 MG capsule Take 10 mg by mouth Nightly. Active Comment on above: Take 25 mg by mouth daily at bedtime. Take 25 mg by mouth daily at bedtime. Taking 30 mg Take 10 mg by mouth. 3 tabs daily at bedtime Take 1 capsule by mo ut every 12 hours. nystatin [id number] unt/ml oral suspension (1 source) Polyene Antifungal Start: 1 End: nystatin (MYCOSTATIN) 100,000 unit/mL suspension Take 5 mL by mouth four times daily. 1tsp swish in mouth for several minutes, then swallow (or expectorate) 4 times daily until gone. 200 mL 03/10/2021 04/11/2021 Discontinued (Course of therapy completed) pantoprazole 40 mg delayed release oral tablet (6 sources) Proton Pump Inhibitor Start: 4 End: 5 take 1 tablet by mouth once daily pantoprazole DR (PROTONIX) 40 mg tablet Indications: Belching , Epigastric pain Take 1 tablet by mouth once daily. 30 tablet 2 11/23/2024 12/18/2024 Discontinued (Discontinued by Patient) piperacillin-tazobact am (Zosyn) 3,375 mg in sodium chloride 0.9 % 50 mL IVPB Mini-Bag Plus (1 source) Start: 5 End: 5 3,375 mg, IntraVENous, at 100 mL/hr, Administer over 0.5 Hours, Once, On Sat02/10/25 at 1200, For 1 dose, Mini-Bag Plus bag, Suspected Indication (Select all that apply): Surgical Site Infection Polyethylene Glycols (20 sources) End: polyethylene glycol 3350 (CLEARLAX ORAL) Take by mouth. 02/06/2024 Discontinued (Changing Therapy/Dosage Form) End: 02-06-2024 polyethylene glycol 3350 (CL EARLAX ORAL) Take by mouth. 0 02/06/2024 Discontinued (Changing Therapy/Dosage Form) polyethylene gly col 3350 (CLEARLAX ORAL) Take by mouth. 0 Active Polyethylene Gly col 3350 (CLEARLAX PO) Take by mouth as needed 0 Active Comment on above: Take by mouth. predniSONE 20 mg oral tablet (2 sources) Start: 2 End: 2 take 2 tablets by mouth once daily predniSONE (DELTASONE) 20 mg tablet Take 2 tablets by mouth once daily for 5 days. 10 tablet 10/01/2022 10/06/2022 Comment on above: Take 2 tablets by [facility] once daily for 5 days. 100 ml propofol 10 mg/ml injection (2 sources) General Anesthetic Start: 5 End: 5 IntraVENous, Continuous PRN, Starting on Sat02/10/25 at 1204, Anesthesia Intraprocedure Start: 02-10-2025 End: 02-10-2025 IntraVENous, As needed, Star ting on Sat02/10/25 at 1204, Anesthesia Intraprocedure propranolol hydrochloride 10 mg oral tablet (20 sources) beta-Adrenergic Grzegorz Start: 03-15-2025 End: 06-13-2025 take 1 tablet by mouth three times daily as needed propranolol (INDERAL) 10 mg tablet Indications: Anxiety with depression Take 1 tablet by mouth three times a day as needed. For palpitations 90 tablet 2 03/15/2025 05/13/2025 Discontinued (Discontinued by Patient) Start: 01-14-2024 End: 04-02-2024 propranolol (INDERAL) 10 mg tablet 01/14/2024 04/02/2024 Discontinued sertraline 25 mg oral tablet (5 sources) Serotonin Reuptake Inhibitor Start: 01-22-2023 End: 05-29-2023 sertraline (ZOLOFT) 25 mg tablet Indications: Generalized anxiety disorder First week 1/2 tab daily and then increase to 1 whole tab daily 30 tablet 2 01/22/2023 05/29/2023 Discontinued Comment on above: First week 1/2 tab d aily and then increase to 1 whole tab daily 1000 ml sodium chloride 9 mg/ml injection (1 source) Start: 02-10-2025 End: 02-10-2025 IntraVENous, Continuous PRN, Starting on Sat02/10/25 at 1201, Anesthesia Intraprocedure tenapanor 50 mg oral tablet (10 sources) Start: 04-07-2024 End: 01-02-2025 take 1 tablet by mouth twice daily at mealtime tenapanor (IBSRELA) 50 mg tablet Indications: Acute constipation , Irritable bowel syndrome with constipation Take 1 tablet (50 mg) by mouth two times a day. With food. 180 tablet 2 04/07/2024 06/16/2024 Discontinued (Discontinued by Patient) tiZANidine 4 mg oral tablet (8 sources) Central alpha-2 Adrenergic Agonist Start: 11-13-2022 End: 01-22-2023 take 0.5 tablet by mouth every eight hours as needed for muscle spasms tiZANidine (ZANAFLEX) 4 mg tablet Indications: Acute midline low back pain without sciatica Take 0.5 tablets by mouth every 8 hours as needed (muscle spasms). 15 tablet 1 11/13/2022 01/22/2023 Discontinued (Course of therapy completed) Comment on above: Take 0.5 tablets by mouth every 8 hours as needed (muscle spasms). triamcinolone acetonide 0.001 mg/mg oral paste (17 sources) Corticosteroid Start: 10-03-2023 End: 04-02-2024 triamcinolone (KENALOG IN ORABASE) 0.1 % paste 0.25 Inches by DENTAL route two times a day. 2 g 10/03/2023 04/02/2024 Discontinued Comment on above: 0.25 Inches by DENTA L route two times a day. Problems Active Problems Problem Classification Problem Date Documented Da te Episodic/Chronic Anal and rectal conditions (2 sources) Rectal pain; Translations: [Other specified diseases of anus and rectum] Episodic Anxiety disorders (20 sources) Generalized anxiety disorder; Translations: [Generalized anxiety disorder] Onset: 9 09-16-2019 Chronic Asthma (20 sources) Mild intermittent asthma; Translations: [Mild intermittent asthma, uncomplicated] Onset: 6 09-16-2019 Chronic Cancer of pancreas (5 sources) Malignant tumor of head of pancreas; Translations: [Malignant neoplasm of head of pancreas] Onset: 5 03-15-2025 Chronic Cardiac dysrhythmias (20 sources) Paroxysmal supraventricular tachycardia; Translations: [Supraventricular tachycardia] Onset: 9 Resolved: 7 09-16-2019 Chronic Deficiency and other anemia (5 sources) Iron deficiency anemia; Translations: [Iron deficiency anemia, unspecified] Episodic Deficiency and other anemia (1 source) Iron deficiency anemia secondary to inadequate dietary iron intake; Translations: [Other iron deficiency anemias] Episodic Disorders of lipid metabolism (20 sources) Hyperlipidemia; Translations: [Hyperlipidemia, unspecified] Onset: 9 09-16-2019 Chronic Diverticulosis and diverticulitis (20 sources) Diverticulosis of large intestine; Translations: [Diverticulosis of large intestine without perforation or abscess without bleeding] Onset: 9 05-22-2017 Chronic Diverticulosis and diverticulitis (1 source) Diverticulosis of large intestine; Translations: [Diverticulosis of large intestine] Onset: 9 09-16-2019 Gastroduodenal ulcer (except hemorrhage) (20 sources) Peptic ulcer; Translations: [Peptic ulcer, site unspecified, unspecified as acute or chronic, without hemorrhage or perforation] Resolved: 7 03-19-2007 Chronic Genitourinary symptoms and ill-defined conditions (2 sources) Urgent desire to urinate; Translations: [Urgency of urination] Onset: 5 03-15-2025 Episodic Intestinal infection (2 sources) Infection caused by Helicobacter pylori; Translations: [Other specified bacterial intestinal infections] 12-18-2024 Episodic Nonspecific chest pain (1 source) Chest discomfort; Translations: [Other chest pain] Episodic Nutritional deficiencies (2 sources) Vitamin D deficiency; Translations: [Vitamin D deficiency, unspecified] Onset: 4 11-03-2024 Chronic Nutritional deficiencies (3 sources) Iron deficiency; Translations: [Iron deficiency] Episodic Open wounds of extremities (1 source) Laceration of upper limb; Translations: [Laceration without foreign body of left upper arm, initial encounter] 03-17-2024 Episodic Osteoarthritis (20 sources) Bilateral primary osteoarthritis of knee; Translations: [Bilateral osteoarthritis of knees] Onset: 4 Resolved: 6 09-16-2019 Chronic Other bone disease and musculoskeletal deformities (1 source) Disorder of skeletal system; Translations: [Disorder of bone and cartilage] Onset: 9 09-16-2019 Chronic Other bone disease and musculoskeletal deformities (20 sources) Disorder of skeletal system; Translations: [Disorder of bone, unspecified] Onset: 9 12-23-2015 Episodic Other connective tissue disease (20 sources) History of total knee arthroplasty; Translations: [Presence of unspecified artificial knee joint] Onset: 6 09-16-2019 Chronic Other connective tissue disease (2 sources) History of bilateral total knee replacement; Translations: [Presence of artificial knee joint, bilateral] Chronic Other connective tissue disease (1 source) Cramp in lower limb; Translations: [Cramp and spasm] 03-18-2025 Episodic Other connective tissue disease (1 source) Cramp and spasm; Translations: [Leg cramps] Onset: 5 Episodic Other gastrointestinal disorders (4 sources) Decreased stool caliber; Translations: [Other fecal abnormalities] Episodic Other gastrointestinal disorders (3 sources) Altered bowel function; Translations: [Change in bowel habit] 07-02-2023 Episodic Other gastrointestinal disorders (6 sources) Acute constipation; Translations: [Constipation, unspecified] 02-07-2024 Episodic Other gastrointestinal disorders (2 sources) Chronic constipation; Translations: [Other constipation] 02-06-2024 Episodic Other gastrointestinal disorders (2 sources) Burping; Translations: [Eructation] 11-23-2024 Episodic Other hematologic conditions (2 sources) ESR raised; Translations: [Elevated erythrocyte sedimentation rate] Episodic Other hereditary and degenerative nervous system conditions (20 sources) Restless legs; Translations: [Restless legs syndrome] 07-26-2021 Chronic Other lower respiratory disease (3 sources) Lower respiratory tract infection; Translations: [Unspecified acute lower respiratory infection] Episodic Other lower respiratory disease (3 sources) Dyspnea; Translations: [Shortness of breath] Episodic Other nervous system disorders (1 source) Mononeuropathy; 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, unspecified] 11-23-2024 Chronic Other nervous system disorders (1 source) Neoplasm related pain (acute) (chronic); Translations: [Neoplasm related pain (acute) (chronic)] Onset: 5 Chronic Other nervous system disorders (1 source) Mononeuropathy, unspecified; 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] Onset: 4 Chronic Other nervous system disorders (1 source) Hypogeusia; Translations: [Parageusia] Episodic Other nervous system disorders (3 sources) Paresthesia; Translations: [Paresthesia of skin] 08-19-2023 Episodic Other non-traumatic joint disorders (1 source) Multiple joint pain; Translations: [Pain in unspecified joint] 07-02-2023 Episodic Other nutritional; endocrine; and metabolic disorders (3 sources) Abnormal weight loss; Translations: [Abnormal weight loss] 04-02-2024 Episodic Other nutritional; endocrine; and metabolic disorders (1 source) Anorexia; Translations: [Anorexia] Onset: 5 Episodic Other upper respiratory infections (20 sources) Chronic maxillary sinusitis; Translations: [Chronic maxillary sinusitis] Onset: 8 Resolved: 7 Chronic Pancreatic disorders (not diabetes) (11 sources) Disorder of pancreas; Translations: [Disease of pancreas, unspecified] Onset: 4 06-26-2024 Episodic Residual codes; unclassified (1 source) Menopause present; Translations: [Asymptomatic menopausal state] Episodic Residual codes; unclassified (1 source) Family history of disorder; Translations: [Family history of diseases of the blood and blood-forming organs and certain disorders involving the immune mechanism] 08-19-2023 Episodic Spondylosis; intervertebral disc disorders; other back problems (20 sources) Degeneration of lumbar intervertebral disc; Translations: [Other intervertebral disc degeneration, lumbar region] Onset: 1 01-01-2024 Chronic Substance-related disorders (20 sources) Benzodiazepine dependence; Translations: [Sedative, hypnotic or anxiolytic dependence, uncomplicated] Onset: 3 05-29-2023 Chronic Thyroid disorders (20 sources) Hypothyroidism; Translations: [Multinodular goiter] Onset: 6 09-16-2019 Chronic Unclassified (2 sources) New Patient; Translations: [New Patient] Onset: 5 Unclassified (1 source) Acute bilateral low back pain without sciatica; Translations: [Acute bilateral low back pain without sciatica] Onset: 4 Past or Other Problems Problem Classification Problem Date Documented Da te Episodic/Chronic Abdominal hernia (20 sources) Hernia of anterior abdominal wall; Translations: [Ventral hernia without obstruction or gangrene] Onset: 04-18-2020 04-18-2020 Episodic Abdominal pain (3 sources) Epigastric pain; Translations: [Epigastric pain] Onset: 11-23-2024 11-23-2024 Episodic Allergic reactions (20 sources) Contact dermatitis; Translations: [Unspecified contact dermatitis, unspecified cause] Onset: 04-18-2020 04-18-2020 Episodic Cardiac dysrhythmias (20 sources) Tachycardia; Translations: [Tachycardia, unspecified] Onset: 01-01-2024 Episodic Conditions associated with dizziness or vertigo (20 sources) Meniere's disease; Translations: [Meniere's disease, unspecified ear] Onset: 05-20-2008 Resolved: 03-16-2016 03-16-2016 Chronic Conditions associated with dizziness or vertigo (20 sources) Benign paroxysmal positional vertigo; Translations: [Benign paroxysmal vertigo, unspecified ear] Onset: 05-13-2009 Resolved: 12-23-2015 04-22-2020 Episodic Diseases of mouth; excluding dental (20 sources) Burning mouth syndrome ; Translations: [Glossodynia] Onset: 02-23-2016 Resolved: 05-22-2017 Episodic Gastroduodenal ulcer (except hemorrhage) (2 sources) Acute peptic ulcer without hemorrhage AND without perforation; Translations: [Acute peptic ulcer, site unspecified, without hemorrhage or perforation] Onset: 11-23-2024 11-23-2024 Episodic Gout and other crystal arthropathies (20 sources) Gout; Translations: [Gout, unspecified] Resolved: 12-23-2015 12-23-2015 Chronic Malaise and fatigue (2 sources) Fatigue; Translations: [Other fatigue] Onset: 06-16-2024 06-16-2024 Episodic Nausea and vomiting (20 sources) Nausea; Translations: [Nausea] Onset: 03-20-2018 Resolved: 04-29-2019 02-07-2024 Episodic Neoplasms of unspecified nature or uncertain behavior (3 sources) 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; Translations: [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] Onset: 07-08-2024 06-16-2024 Episodic Other circulatory disease (20 sources) Syncope due to orthostatic hypotension; Translations: [Orthostatic hypotension] Onset: 07-27-2020 07-27-2020 Episodic Other connective tissue disease (20 sources) Disorder of bursa of shoulder region; Translations: [Bursopathy, unspecified] Onset: 01-24-2012 01-01-2024 Episodic Other connective tissue disease (20 sources) Neurological deficit; Translations: [Other symptoms and signs involving the nervous system] Onset: 01-01-2024 01-01-2024 Episodic Other connective tissue disease (20 sources) Muscle pain; Translations: [Myalgia and myositis] Resolved: 05-22-2017 05-22-2017 Episodic Other gastrointestinal disorders (20 sources) Constipation; Translations: [Constipation, unspecified] Onset: 04-30-2006 Resolved: 03-16-2016 03-16-2016 Episodic Other gastrointestinal disorders (1 source) Eructation; Translations: [Belching] Onset: 11-23-2024 Episodic Other inflammatory condition of skin (20 sources) Itching ; Translations: [Pruritus, unspecified] Onset: 07-27-2020 07-27-2020 Episodic Other liver diseases (1 source) Abnormal levels of other serum enzymes; Translations: [Abnormal serum level of lipase] Onset: 11-23-2024 Episodic Other nervous system disorders (20 sources) Sensory disorder of smell and/or taste; Translations: [Unspecified disturbances of smell and taste] Onset: 02-13-2008 Resolved: 05-22-2017 05-22-2017 Episodic Other nervous system disorders (20 sources) Loss of taste; Translations: [Parageusia] Onset: 02-23-2016 Resolved: 05-22-2017 05-22-2017 Episodic Other non-traumatic joint disorders (3 sources) Pain in right knee; Translations: [Pain in joint, lower leg] Onset: 11-23-2024 11-23-2024 Episodic Other non-traumatic joint disorders (1 source) Pain in left knee; Translations: [Pain in both knees, unspecified chronicity] Onset: 11-23-2024 Episodic Other nutritional; endocrine; and metabolic disorders (1 source) Abnormal weight loss; Translations: [Abnormal weight loss] Onset: 06-26-2024 Episodic Other screening for suspected conditions (not mental disorders or infectious disease) (9 sources) Patient encounter status; Translations: [Encounter for screening mammogram for malignant neoplasm of breast] Onset: 11-03-2024 10-03-2023 Episodic Residual codes; unclassified (20 sources) History of partial resection of colon; Translations: [Acquired absence of other specified parts of digestive tract] Onset: 10-08-2023 01-01-2024 Episodic Residual codes; unclassified (20 sources) Family history of cancer of colon; Translations: [Family history of malignant neoplasm of digestive organs] Onset: 10-08-2023 01-01-2024 Episodic Spondylosis; intervertebral disc disorders; other back problems (20 sources) Acute low back pain; Translations: [Acute midline low back pain without sciatica] Onset: 05-13-2009 Resolved: 12-23-2015 Episodic Sprains and strains (20 sources) Sprain of lateral collateral ligament of knee; Translations: [Sprain of lateral collateral ligament of unspecified knee, initial encounter] Onset: 05-27-2012 01-01-2024 Episodic Syncope (20 sources) Syncope and collapse; Translations: [Syncope and collapse] Onset: 04-30-2014 Resolved: 12-23-2015 11-27-2021 Episodic Syncope (1 source) Syncope Onset: 04-23-2018 Results Test Name Value Interpretation Reference Range Facility [facility] 05-11-2025 [facility] SACHI GRACE ([id number]) 1935 F NFR Date Time Provider Department 05/11/25 ANITRA MANCERA [facility] During your visit today, we recorded the following information about you: Anitra Mancera, COMPUTER SYSTEM SPECIALIST.[facility] 05/11/2025 9:07 AM Signed Patient saw pulmonary PATIENT CARE TECHNICIAN. She underwent a pulmonary function test: FEV1/FVC 83% of predicted, FEF % of predicted, FVC 96% of predicted reflecting mild obstruction. Patient was given levalbuterol prescription. Allergies As of Date: 05/11/2025 Noted Allergy Reaction VICODIN (HYDROCODONE-ACETAMINOPHE*01/2013 8 - GI Upset BUSPIRONE 04/21/2024 5 - Intolerance Comments: Anxious, jittery, felt worse, RLS worse. COCAMIDOPROPYL BETAINE 07/27/2020 2 - Rash Comments: itching, rash CODEINE 03/19/2007 8 - GI Upset PANTOPRAZOLE 12/18/2024 8 - GI Upset Comments: Bloating, constipation, increase in abd pain PERCOCET (OXYCODONE-ACETAMINOPHEN)04/02 8 - GI Upset SULFA (SULFONAMIDE ANTIBIOTICS) 03/19/2007 4 - Hives 7 - Swelling Comments: lips swelled up TETRACYCLINE 04/29/2019 8 - GI Upset Date Reviewed: 05/04/2025 Reviewed by: Regina Boyer, YARY - Fully Assessed Prescriptions as of 05/11/2025 - escitalopram oxalate (LEXAPRO) 5 mg tablet Take 2.5 mg by mouth once daily. - levothyroxine (SYNTHROID) 75 mcg tablet Take 75 mcg by mouth daily before breakfast. - ondansetron (ZOFRAN) 4 mg tablet Take 1 tablet by mouth every 8 hours as needed for nausea/vomiting. - propranolol (INDERAL) 10 mg tablet Take 1 tablet by mouth three times a day as needed. For palpitations - rOPINIRole (REQUIP) 0.5 mg tablet Take 1.5 tablets by mouth daily at bedtime. - Vit B Complex 100 Combo No.2 (B-100 COMPLEX) 100 mg TbER Take 1 tablet by mouth once daily. - levothyroxine (SYNTHROID) 50 mcg tablet Take 50 mcg by mouth. Take 50 mcg on Saturday, and 75 mcg all other days of the week, per ENDO - MEDICATION, NON-DATABASE CBD oil - fluticasone propionate (ARMONAIR DIGIHALER) 232 mcg/actuation inhaler Inhale 1 Puff as instructed two times a day. - levalbuterol tartrate HFA 45 mcg/actuation inhaler Inhale 1-2 Puffs as instructed every 4 hours as needed for wheezing/shortness of breath. - Cholecalciferol, Vitamin D3, (VITAMIN D) 25 mcg (1,000 unit) cap Take 1,000 Units by mouth once daily. - clonazePAM (KLONOPIN) 0.5 mg tablet Take 0.5 mg by mouth at bedtime as needed. Dr Dupree - vit A,C,Z-Viaz-Bksocc (PRESERVISION AREDS) 7,160-113-100 ffgy-qc-vhjs tab Take 1 tablet by mouth once daily. - ACETAMINOPHEN 500 MG TAB Take 1,000 mg by mouth every 8 hours as needed for pain. Problem List As Of Date 05/11/2025 Noted Resolved Unspecified constipation [K59.00] 04/30/2006 03/16/2016 PEPTIC ULCER NOS [K27.9] 03/19/2007 GENERALIZED ANXIETY DIS [F41.1] Generalized osteoarthrosis, unspecified site [M* 12/23/2015 Myalgia and myositis [VYW4291] 05/22/2017 Diverticulosis of large intestine [K57.30] Disorder of bone and cartilage [M89.9, M94.9] Hypothyroidism [E03.9] Hyperlipidemia LDL goal <130 [E78.5] Gout, unspecified [M10.9] 12/23/2015 PEPTIC ULCER NOS [K27.9] 03/19/2007 PAROX ATRIAL TACHYCARDIA [I47.10] 03/19/2007 Disturbances of sensation of smell and taste [R*02/13/2008 05/22/2017 Chronic maxillary sinusitis [J32.0] 02/13/2008 05/22/2017 Meniere's disease, unspecified [H81.09] 05/20/2008 03/16/2016 Dizziness and giddiness [R42] 05/13/2009 12/23/2015 Cervicalgia [M54.2] 05/13/2009 12/23/2015 Osteoarthritis of both knees [M17.0] Multinodular goiter [E04.2] Syncope and collapse [R55] 04/30/2014 12/23/2015 History of knee replacement, total [Z96.659] 12/23/2015 Ageusia [R43.2] 02/23/2016 05/22/2017 Glossitis [K14.0] 02/23/2016 05/22/2017 Mild intermittent asthma without complication [*03/16/2016 Paroxysmal supraventricular tachycardia (HCC) [* Nausea [R11.0] 03/20/2018 04/29/2019 Hernia of anterior abdominal wall [K43.9] 04/18/2020 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] 04/18/2020 BPPV (benign paroxysmal positional vertigo), un*04/22/2020 Itching [L29.9] 07/27/2020 Orthostatic syncope [I95.1] 07/27/2020 RLS (restless legs syndrome) [G25.81] Asthma [J45.909] Benzodiazepine dependence (HCC) [F13.20] 05/29/2023 Anxiety [F41.9] 01/01/2024 Diagnosed: 01/01/2024 Chronic ethmoidal sinusitis [J32.2] 01/01/2024 Diagnosed: 01/01/2024 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*05/27/2012 Diagnosed: 01/01/2024 Disorder of bursae of shoulder region [M71.9] 01/24/2012 Diagnosed: 01/01/2024 Encounter for pre-operative examination [Z01.81*01/01/2024 Diagnosed: 01/01/2024 Family history of malignant neoplasm of colon [*10/08/2023 Diagnosed: 01/01/2024 History of appendectomy [Z90.49] 01/01/2024 Diagnosed: 01/01/2024 Hernia [K46.9] 01/01/2024 Diagnosed: 01/01/2024 History of partial surgical removal of colon [Z*10/08/2023 Diagnosed: more content not included)... Normal [facility] Carbohydrate AG 19-9on 05-05 CA 19-9 463 U/mL High 0-35 [facility] Comment on above: Result Comment: [employer] Electrochemiluminescence Immunoassay (ECLIA) Values obtained with different assay methods or kits cannot be used interchangeably. Results cannot be interpreted as absolute evidence of the presence or absence of malignant disease. Performed at: [address] [id number] Branch Operation Evaluation Manager: Quintin Barba PhD, Phone: [phone] Performed By: #### L 1266.1597 #### [facility] [address] [place], [address] CNOVon 05-04-2025 CNOV Office Visit (ENWSTR ) SACHI GRACE ([id number]) 1935 F NFR Date Time Provider Department 05/04/25 10:00 AM DASIA FUNESWSTR During your visit today, we recorded the following information about you: Pulse Respiration Blood pressure Weight 92/minute 17/minute 110/64 53.2 kg Height 1.549 m Dasia Funes MD 05/04/2025 4:37 PM Signed [facility] Initial Clinic Visit Note CONSULTING PROVIDER: Anitra Mancera APRN. RUSTY My final recommendations will be communicated back to the requesting provider by way of shared Medical record or a letter via [place] mail Subjective: Sachi Grace is a 89 year old female here to establish care for hypothyroidism. She is accompanied by her today Also reports to have a hx of thyroid nodules - Diagnosed approximately 25 years ago. How hypothyroidism was discovered: 25 years ago - Managed by Dr. Angulo at [facility] Endocrinology since diagnosis. - Current medication dosage has been consistent for over a year. Current treatment: 75 mcg of levothyroxine daily Prior treatment: does not remember General symptoms: - Recent weight loss of 17 lbs attributed to pancreatic cancer (as per chart review, ductal adenocarcinoma of pancreas). She underwent radiation for this, surgery not feasible, and no chemotherapy recommended - No recent changes in appetite or bowel habits Reports she might not be around for long but it is difficult for her to see Dr. Angulo due to distance and hence is transferring care - No known family history of thyroid issues. REVIEW OF SYSTEMS: GENERAL:No weight loss, malaise or fevers HEENT:Negative for frequent or significant headaches, No changes in hearing or vision, no nose bleeds or other nasal problems NECK:Negative for lumps, goiter, pain and significant neck swelling RESPIRATORY: Negative for cough, hemoptysis, wheezing or shortness of breath CARDIOVASCULAR: Negative for chest pain, leg swelling or palpitations GASTROINTESTINAL: No nausea, vomiting, or persistent diarrhea GENITOURINARY: no dysuria, Polyuria, no changes in urinary frequency MUSCULOSKELETAL:no muscle aches, arthralgia NEUROLOGIC: no numbness, tingling, no Paresthesias, no headaches SKIN:Negative for lesions, rash, and itching PSYCHIATRIC: Negative for sleep disturbance, mood disorder and recent psychosocial stressors. HEMATOLOGIC/LYMPHATIC/IMMUNOL OGIC:Negative for prolonged bleeding, bruising easily ENDOCRINE: Negative for cold or heat intolerance or goiter ALLERGIES: ALLERGIES Allergen Reactions Vicodin [Hydrocodon* GI Upset Buspirone Intolerance Anxious, jittery, felt worse, RLS worse. Cocamidopropyl Beta* Rash itching, rash Codeine GI Upset Pantoprazole GI Upset Bloating, constipation, increase in abd pain Percocet [Oxycodone* GI Upset Sulfa (Sulfonamide * Hives, Swelling lips swelled up Tetracycline GI Upset MEDICATIONS: Current Outpatient Medications on File Prior to Visit Medication Sig escitalopram oxalate (LEXAPRO) 5 mg tablet Take 2.5 mg by mouth once daily. levothyroxine (SYNTHROID) 75 mcg tablet Take 75 mcg by mouth daily before breakfast. ondansetron (ZOFRAN) 4 mg tablet Take 1 tablet by mouth every 8 hours as needed for nausea/vomiting. propranolol (INDERAL) 10 mg tablet Take 1 tablet by mouth three times a day as needed. For palpitations Vit B Complex 100 Combo No.2 (B-100 COMPLEX) 100 mg TbER Take 1 tablet by mouth once daily. MEDICATION, NON-DATABASE CBD oil fluticasone propionate (ARMONAIR DIGIHALER) 232 mcg/actuation inhaler Inhale 1 Puff as instructed two times a day. levalbuterol tartrate HFA 45 mcg/actuation inhaler Inhale 1-2 Puffs as instructed every 4 hours as needed for wheezing/shortness of breath. Cholecalciferol, Vitamin D3, (VITAMIN D) 25 mcg (1,000 unit) cap Take 1,000 Units by mouth once daily. clonazePAM (KLONOPIN) 0.5 mg tablet Take 0.5 mg by mouth at bedtime as needed. Dr Dupree vit A,C,L-Vopm-Kvkmpz (PRESERVISION AREDS) 7,160-113-100 tnxx-vs-ornr tab Take 1 tablet by mouth once daily. ACETAMINOPHEN 500 MG TAB Take 1,000 mg by mouth every 8 hours as needed for pain. rOPINIRole (REQUIP) 0.5 mg tablet Take 1.5 tablets by mouth daily at bedtime. levothyroxine (SYNTHROID) 50 mcg tablet Take 50 mcg by mouth. Take 50 mcg on Saturday, and 75 mcg all other days of the week, per ENDO (Patient not taking: Reported on 05/04/2025) No current facility-administered medications on file prior to visit. PAST MEDICAL HISTORY: PAST MEDICAL HISTORY Diagnosis Date Anosmia loss of taste, not smell Asthma (HCC) moderate persistant Bilateral sensorineural hearing loss Disorder of bone and cartilage, unspecified osteopenia, on actonel (Wietecha) Diverticulitis s/p partial colectomy Family history of colon cancer in father Jacoby (more content not included)... Normal [facility] Urine Cultureon 04-16-2025 URC #1 Below infection l evel. PROBABLE PROTEUS SPECIES. #2 Below infection level. Gram negative laurel [place] Count <1000 Mixed Gram Positive Organisms Mixed Gram Positive Organisms MIXC Mixed contaminants. Submit a new specimen if indicated. Normal [facility] Comment on above: Performed By: #### M 100.2200 ####[facility] [id number] [place], [address] Oncology Visit Reporton 04-[address] [facility] [address] [place] [address] OFFICE VISIT Date of Service: 04/14/25 0957 MR#: [id number] Acct: [id number] Name: SACHI GRACE Lila Rep #: [id number] : 1935 From: Kendra Hahn NP PATIENT CARE TECHNICIAN -C Age/Sex: 89/F Location[place] [facility] Status: Signed HPI Subjective Date of Service 04/14/25 Chief Complaint Acute visit- nausea History of Present Illness 89-year-old woman was found to have head/body pancreatic mass. Presented with abdominal pain to [facility], CT of the abdomen and pelvis on 12/10/2024 showed 2.8 cm mass with ill-defined margins in the body of the pancreas. She was seen by GI on 01/01/2025 and was referred for EUS and biopsy. She had EUS and biopsy at [facility] on 02/10/2025 which showed 3.6 cm pancreatic head mass with invasion into the portal vein SMV and SMA which was staged as T4 by endoscopic standards, no abdominal lymph adenopathy or evidence of liver metastasis. Pathology of head of pancreas FNA was positive for malignant cells, with cellular features consistent with ductal adenocarcinoma. She was referred for further management of pancreatic cancer. PET/CT on 03/02/2025 showed Hypermetabolic mass in the head of pancreas. CA19-9 was 602 on 02/24/2025. Saw Surgical Oncologist on 03/16/2025. Patient elected palliative radiation therapy. Received 2500 cGy delivered in 5 fractions with a simultaneous boost to the GTV of 3000 cGy in 5 fractions 04/05/25-04/09/25. Interval History The patient is presenting to clinic accompanied by for an acute visit at her request with c/o nausea, anorexia, and generalized weakness and fatigue. Reports nausea has been mild and intermittent for months associated with decreased appetite. No vomiting. + taste disturbance for years, cause unknown. However, nausea became severe on 04/12/25. Nutritional intake the last 24 hours has been limited to 1/2 banana, 1 c milk, 1 c ritchie soup, 1/2 baked potato, small piece of sausage. Has not been able to take Ensure/Boost as they increase nausea. PO fluid intake minimal, < 20 oz per day. Admits to urinary frequency (which is unusual for her and increase in the frequency of urinary incontinence. C/o bilat mid back pain x 2 weeks. C/o light colored, malodorous stool. Typically producing 1-4 BMs per day. Denies diarrhea. Has not taken Percocet at all. Denies abd pain at this time. Denies fever/chills, sweats, headache, dizziness, CP, palpitations,swelling of her extremities. [facility] Medical History (Updated 04/14/25 @ 13:17 by Kendra Hahn NP, PATIENT CARE TECHNICIAN-C) Costovertebral angle tenderness Anorexia Back pain RUY (generalized anxiety disorder) Panic Wears partial dentures Fibromyalgia Arthritis History of ulceration History of diverticulitis Panic disorder Medication monitoring encounter Ventral incisional hernia without obstruction or gangrene Decreased sense of taste Chronic sphenoidal sinusitis Chronic ethmoidal sinusitis Chronic maxillary sinusitis Family history of colon cancer in father Pre-op evaluation Hyperlipidemia Syncope and collapse Mixed hyperlipidemia PSVT (paroxysmal supraventricular tachycardia) Chest discomfort Palpitations Hypothyroidism Asthma Surgical History S/P ventral herniorrhaphy History of bilateral knee replacement Hx of rotator cuff surgery S/P carpal tunnel release S/P partial colectomy History of loop recorder H/O prior ablation treatment History of appendectomy History of tonsillectomy Family History Father Colon cancer CAD (coronary artery disease) Mother CAD (coronary artery disease) Sister CVA (cerebral vascular accident) Brother Cancer Lung cancer Social History household members: spouse Smoking Status: Never smoker alcohol intake: never substance use type: does not use caffeine: No what type of physical activity do you participate in: bicycling frequency: daily duration: 15-30 minutes/day seatbelt use: always do you feel safe at home: Yes ROS ROS Narrative Negative except as documented in the interval HPI Intake Vital Signs 04/07/25 10:40 04/14/25 10:01 Height 5 ft 1 in 5 ft 1 in Weight: 119 lb 7 oz 119 lb 3 oz BMI 22.5 22.5 BP 147/88 H 137/81 H Blood Pressure Location Lt brachial Lt brachial Position Sitting Sitting Respiration 16 18 Pulse 75 78 Pulse Source Monitor Monitor Temp 98.0 F 98.3 F Temperature Source Temporal Artery Temporal Artery Pulse Oximetry (%) 97 97 Oxygen Delivery Method room air room air Intake Is patient in pain?: No (stomach/back) Allergies cocamidopropyl betaine Allergy (Intermediate, Verified 04/14/25 10:18) Rash Sulfa (Sulfon (more content not included)... Normal [facility] Urinalysis, Routine (Dipstic k)on 04-14-2025 BILIRUBIN URINE Negative Normal Negative [facility] Comment on above: Order Comment: MARICEL BECKOR TO SPECIFY Performed By: #### L 400.2010 #### [facility] [address] [place], [place], [id number] Clarity (U) Sl. Cloudy Normal Clear [facility] Comment on above: Order Comment: COLLE CTOR TO SPECIFY Performed By: #### L 400.2010 #### [facility] [address] [place], [address] Color (U) Yellow Normal Yellow [facility] Comment on above: Order Comment: COLLE CTOR TO SPECIFY Performed By: #### L 400.2010 #### [facility] [address] [place], [address] GLUCOSE, UR Normal Normal Normal [facility] Comment on above: Order Comment: COLLE CTOR TO SPECIFY Performed By: #### L 400.2010 #### [facility] [address] [place], [address] KETONE UR 15 mg/dl Abnormal Negative [facility] Comment on above: Order Comment: COLLE CTOR TO SPECIFY Performed By: #### L 400.2010 #### [facility] [address] [place], [address] LEUK ESTERASE Negative Normal Negative [facility] Comment on above: Order Comment: COLLE CTOR TO SPECIFY Performed By: #### L 400.2010 #### [facility] [address] [place], [address] Nitrite Ql (U) Negative Normal Negative [facility] Comment on above: Order Comment: COLLE CTOR TO SPECIFY Performed By: #### L 400.2010 #### [facility] [address] [place], [address] OCCULT BLOOD-UR 10 /ul Abnormal Negative [facility] Comment on above: Order Comment: COLLE CTOR TO SPECIFY Performed By: #### L 400.2010 #### [facility] [address] [place], [address] pH UR 7.0 Normal 5.0 - 8.0 [facility] Comment on above: Order Comment: COLLE CTOR TO SPECIFY Performed By: #### L 400.2010 #### [facility] [address] [place], [address] PROT DIPSTX 15 mg/dl Abnormal Negative [facility] Comment on above: Order Comment: MARICEL CTOR TO SPECIFY Performed By: #### L 400.2010 #### [facility] [address] [place], [place], [address] SP.GR. DIPSTX 1.010 Normal 1.002-1.030 [facility] Comment on above: Order Comment: MARICEL CTOR TO SPECIFY Performed By: #### L 400.2010 #### [facility] [address] [place], [place], [address] UROBILI Normal Normal Normal [facility] Comment on above: Order Comment: MARICEL CTOR TO SPECIFY Performed By: #### L 400.2010 #### [facility] [address] [place], [place], [address] Radiation Oncology Visiton 0 04-09-2025 Radiation Oncology Visit [facility] [address] [place] [address] OFFICE VISIT Date of Service: 04/09/25 0956 MR#: [id number] Acct: [id number] Name: SACHI GRACE Rep #: [id number] : 1935 From: Andi De Luna DO Age/Sex: 89/F [place] [facility] [place] Status: Signed End of Treatment Summary: Diagnosis: Sachi Grace is an 89 year-old female diagnosed with clinical stage III (cT4 cN0 M0) status post CT abdomen/pelvis with contrast (12/10/2024), MRI of the abdomen with and without contrast (01/15/2025), completion of the upper EUS and biopsy of pancreatic mass (02/10/2025), PET scan (03/02/2025), evaluation by surgery (03/16/2025), and follow-up to discuss treatment options with medical oncology (03/17/2025). Oncologic History: 12/10/2024: Patient was evaluated in the emergency room due to having abdominal pain.??? CT abdomen/pelvis with contrast was performed.??? This demonstrated that there is a 2.8 cystic lesion in the body of the pancreas with ill-defined margins.??? No other abnormalities are appreciated. 01/15/2025: Patient completed MRI of the abdomen without and with IV contrast.??? This demonstrated a cystic mass with restricted diffusion and progressive enhancement in the pancreatic head measuring approximately 3.4 x 3 cm which is highly suspicious for pancreatic adenocarcinoma.??? This mass has 360 degrees interface and severe narrowing of the portal mesenteric confluence and SMV and also has 180 degrees interface with the SMA and approximately 90 degrees interface with the abdominal aorta and causes pancreatic ductal obstruction and upstream dilation.??? No metastatic disease is appreciated and no other abnormalities are noted. 02/10/2025: Patient completed upper EUS.??? A rounded mass was identified in the pancreatic head which was hypoechoic with mixed solid and cystic components and measured 35 x 36 mm.??? There is evidence of potential invasion of the superior mesenteric artery and the portal vein as well as the superior mesenteric vein.??? No other abnormalities are appreciated.??? Pancreatic head biopsy was positive for malignant cells consistent with ductal adenocarcinoma. 03/02/2025: Patient completed PET scan.??? This demonstrated increased hypermetabolic activity located to the mass in the pancreatic head worrisome for pancreatic malignancy, incidental discovery of 3 hypermetabolic thyroid nodules.??? No evidence of metastatic disease. 03/16/2025: Patient was seen by hepatobiliary surgery and surgical oncology.??? Stage is having T4 N0 clinical disease and discussed neoadjuvant chemotherapy followed by surgical resection. 03/17/2025: Patient had follow-up with medical oncology and options were discussed.??? Patient desires not to proceed with definitive management but prefers palliative treatment only. Radiation Treatment History: None The patient completed a course of external beam radiotherapy in our department. This treatment was delivered for palliative intent. Treatment was given according to the following parameters: SACHI GRACE received palliative radiation therapy consisting of 2500 cGy delivered in 5 fractions with a simultaneous boost to the GTV of 3000 cGy delivered in 5 fractions. She was treated with a VMAT plan. The patient did not receive concurrent chemotherapy. Date of First Treatment: 04/05/2025 Date of Last Treatment: 04/09/2025 Total Elapsed Days (including weekend and holidays): 4 Missed Treatments: none Response and Tolerance: The patient tolerated this course of radiotherapy well overall. The following radiation related toxicities developed during the course of radiation therapy: * Grade 1 nausea which was treated with zofran * Grade 1 fatigue Total weight change during therapy: N/A Disposition: The patient tolerated the planned course of radiation therapy well without unexpected toxicity in an appropriate time course. I reviewed management of potential toxicities and discussed expected timing for toxicity resolution. I will have SACHI follow-up in one month for a routine visit. SACHI will maintain follow up with all other providers. SACHI was instructed to call with any further questions or concerns in the interim. If we can provide any further information on this patient's course of care, please do not hesitate to ask. We would like to thank you very much for allowing us to participate in the care of this maya ent. Sincerely, Andi De Luna DO, MS Director Of Instruction, Department of Radiation Oncology [facility] 04/09/25 1048 Date Andi De Luna DO Cosigner Signature: Date (if applicable) CC: CONSUMER LOAN OFFICER Anitra Emerson Dr. (more content not included)... Normal [facility] Radiation Oncology Visiton 0 04-07-2025 Radiation Oncology Visit [facility] [address] [place] [address] OFFICE VISIT Date of Service: 04/07/25 1039 MR#: [id number] Acct: [id number] Name: SACHI GRACE Lila Rep #: [id number] : 1935 From: Andi De Luna DO Age/Sex: 89/F Location[facility] Status: Signed Intake Vital Signs 03/24/25 13:05 04/07/25 10:40 Height 5 ft 1 in 5 ft 1 in Weight: 119 lb 7 oz BMI 22.5 BP 147/88 H Blood Pressure Location Lt brachial Position Sitting Respiration 16 Pulse 75 Pulse Source Monitor Temp 98.0 F Temperature Source Temporal Artery Pulse Oximetry (%) 97 Oxygen Delivery Method room air Intake Visit Reasons: OTV Allergies cocamidopropyl betaine Allergy (Intermediate, Verified 04/07/25 10:39) Rash Sulfa (Sulfonamide Antibiotics) Allergy (Verified 04/07/25 10:39) Swelling Environmental Allergies: Uncoded (dust) Adverse Reaction (Severe, Verified 04/07/25 10:39) NEEDS FOLLOW-UP mold Adverse Reaction (Severe, Verified 04/07/25 10:39) NEEDS FOLLOW-UP metoprolol Adverse Reaction (Intermediate, Verified 04/07/25 10:39) I feel awful codeine Adverse Reaction (Verified 04/07/25 10:39) Nausea diphenhydramine (From Benadryl) Adverse Reaction (Verified 04/07/25 10:39) Nausea hydrocodone bitartrate (From Vicodin) Adverse Reaction (Verified 04/07/25 10:39) Nausea oxycodone HCl (From Percocet) Adverse Reaction (Verified 04/07/25 10:39) Nausea tetracycline Adverse Reaction (Verified 04/07/25 10:39) Nausea/Vom/Diarrhea Medications ???Medication ???Instructions ???Recorded ???Confirmed ???Type albuterol sulfate 90 mcg/actuation 1 puff inhalation Q4H PRN PRN 04/07/25 History aerosol inhaler Wheezing vit C 250 mg-vit E 90 mg-zinc 40 1 tab PO BID 11/22/17 04/07/25 His tory mg-copper 1 dw-zgefkx-tmdofx capsule (PreserVision AREDS-2) polyethylene glycol 3350 17 17 g PO QDAY PRN Constipation 03/0 01/1904/07/25 History gram/dose oral powder (Miralax) acetaminophen 325 mg tablet 500 mg (1.5385 x 325 mg) PO Q4H 04/07/25 Rx PRN PRN Mild-Moderate Pain (1-5/10) CBD Oral (INFORMATIONAL USE 11/10/24 04/07/25 History ONLY-PT USES ORAL CBD) nortriptyline 10 mg capsule 10 mg PO BID #120 caps 01/20/25 Rx levalbuterol tartrate 45 2 puff inhalation Q4 PRN 02/24/25 04/07/25 History mcg/actuation aerosol inhaler levothyroxine 50 mcg tablet 75 mcg PO DAILY 02/24/25 04/07/25 History ropinirole 0.5 mg tablet 0.5 mg PO DAILY 02/24/25 04/07/25 History lorazepam 0.5 mg tablet 0.5 mg PO BID PRN anxiety #60 tabs 03/12/25 04/07/25 Rx nitrofurantoin 1 cap PO BID 03/17/25 04/07/25 His tory monohydrate/macrocrystals 100 mg capsule ondansetron 8 mg disintegrating 8 mg PO Q12H PRN nausea and 04/07/25 Rx tablet vomiting #30 tabs Have you fallen in the past year?: No PFSH PFSH Medical History RUY (generalized anxiety disorder) Panic Wears partial dentures Fibromyalgia Arthritis History of ulceration History of diverticulitis Panic disorder Medication monitoring encounter Ventral incisional hernia without obstruction or gangrene Decreased sense of taste Chronic sphenoidal sinusitis Chronic ethmoidal sinusitis Chronic maxillary sinusitis Family history of colon cancer in father Pre-op evaluation Hyperlipidemia Syncope and collapse Mixed hyperlipidemia PSVT (paroxysmal supraventricular tachycardia) Chest discomfort Palpitations Hypothyroidism Asthma Home Medications ???Medication ???Instructions ???Recorded ???Last Taken ???Type albuterol sulfate 90 mcg/actuation 1 puff inhalation Q4H PRN PRN 09/26/20 05:30 History aerosol inhaler Wheezing vit C 250 mg-vit E 90 mg-zinc 40 1 tab PO BID 11/22/17 Unknown Hist ory mg-copper 1 mz-vipycd-nnvwkz capsule (PreserVision AREDS-2) polyethylene glycol 3350 17 17 g PO QDAY PRN Constipation 01/19 Unknown History gram/dose oral powder (Miralax) acetaminophen 325 mg tablet 500 mg (1.5385 x 325 mg) PO Q4H Unknown Rx PRN PRN Mild-Moderate Pain (1-5/10) CBD Oral (INFORMATIONAL USE 11/10/24 Unknown History ONLY-PT USES ORAL CBD) nortriptyline 10 mg capsule 10 mg PO BID #120 caps 01/20/25 Un known Rx levalbuterol tartrate 45 2 puff inhalation Q4 PRN 02/24/25 Unknown History mcg/actuation aerosol inhaler levothyroxine 50 mcg tablet 75 mcg PO DAILY 02/24/25 Unknown H istory ropinirole 0.5 mg tablet 0.5 mg PO DAILY 02/24/25 Unknown H istory lorazepam 0.5 mg tablet 0.5 mg PO BID PRN anxiety #60 tabs 03/12/25 Unknown Rx nitrofurantoin 1 cap PO BID 03/17/25 Unknown Hist ory monohydrate/macrocrystals 100 mg capsule ondansetron 8 mg disintegrat (more content not included)... [facility] Visit (FAMPWS ) SACHI GRACE ([id number]) 1935 F NFR Date Time Provider Department 03/31/25 1:20 PM SHIRA ORDONEZ During your visit today, we recorded the following information about you: Pulse Respiration Blood pressure Weight 77/minute 18/minute 98/66 55.1 kg Shira Ordonez APRN.CNP 03/31/2025 1:54 PM Signed 03/31/2025 Patient presents with: Pain, Back: Low back pain x2 weeks, recently diagnosed with pancreatic cancer SUBJECTIVE: This is a 89 year old that is here today for Above Complaints. 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 Dupree-every 6 months Gout, unspecified late 1990s great toe, several episodes Hypothyroidism, unspecified Multinodular goiter Dr Boateng Osteoarthritis of both knees Other and unspecified hyperlipidemia diet therapy as of 03/08 Paroxysmal supraventricular tachycardia (HCC) ablation 01/2002 ( in [place], [facility]), follows with Dr. Moreno (prn only) RLS (restless legs syndrome) Tinnitus, unspecified ear Unspecified constipation ALLERGIES Vicodin [Hydrocodone-Acetaminophen], Buspirone, Cocamidopropyl Betaine, Codeine, Pantoprazole, Percocet [Oxycodone-Acetaminophen], Sulfa (Sulfonamide Antibiotics), and Tetracycline MEDICATIONS Current Outpatient Medications Medication Sig ondansetron (ZOFRAN) 4 mg tablet Take 1 tablet by mouth every 8 hours as needed for nausea/vomiting. propranolol (INDERAL) 10 mg tablet Take 1 tablet by mouth three times a day as needed. For palpitations rOPINIRole (REQUIP) 0.5 mg tablet Take 1.5 tablets by mouth daily at bedtime. Vit B Complex 100 Combo No.2 (B-100 COMPLEX) 100 mg TbER Take 1 tablet by mouth once daily. levothyroxine (SYNTHROID) 50 mcg tablet Take 50 mcg by mouth. Take 50 mcg on Saturday, and 75 mcg all other days of the week, per ENDO MEDICATION, NON-DATABASE CBD oil fluticasone propionate (ARMONAIR DIGIHALER) 232 mcg/actuation inhaler Inhale 1 Puff as instructed two times a day. levalbuterol tartrate HFA 45 mcg/actuation inhaler Inhale 1-2 Puffs as instructed every 4 hours as needed for wheezing/shortness of breath. Cholecalciferol, Vitamin D3, (VITAMIN D) 25 mcg (1,000 unit) cap Take 1,000 Units by mouth once daily. clonazePAM (KLONOPIN) 0.5 mg tablet Take 0.5 mg by mouth at bedtime as needed. Dr Joon vit A,C,H-Xmuc-Nybted (PRESERVISION AREDS) 7,160-113-100 wamr-dv-btxw tab Take by mouth. ACETAMINOPHEN 500 MG TAB Take one(1) tablet every four(4) to six(6) hours as needed for pain. No current facility-administered medications for this visit. Medications and allergies reviewed by this provider. SOCIAL HISTORY Social History Tobacco Use Smoking status: Never Smokeless tobacco: Never Vaping Use Vaping status: Never Used Substance Use Topics Alcohol use: No Drug use: No REVIEW OF SYSTEMS All other reviewed and negative other than HPI. OBJECTIVE: BP 98/66 Pulse 77 Resp 18 Wt 55.1 kg (121 lb 6.4 oz) BMI 23.71 kg/m? . Vital signs reviewed by this provider. APPEARANCE Well appearing, alert, in no acute distress, well-hydrated, well nourished. EYES PERRLA, conjunctiva and sclera normal. BACK: Normal exam, no pain to palpation, good flexion and extension, negative SLR test. No changes in skin NEURO Awake, alert and oriented x 3, Reflexes symmetrical, Normal gait, No involuntary motions., and negative findings: muscle tone normal, muscle strength normal, sensation to light touch and pinprick normal, reflexes normal and symmetric, plantar response downgoing bilaterally SKIN Skin color, texture, turgor normal, no suspicious rashes or lesions to expose skin Shingrix Vaccine(1 of 2) Never done Advance Directive Discussion due on 12/02/2024 Covid-19 Vaccine( season) due on 04/12/2025 Depression Screening due on 03/15/2026 Diabetes Screening due on 03/18/2028 DTaP,Tdap,Td Vaccine(3 - Td or Tdap) due on 03/17/2034 Influenza Vaccine Completed RSV Vaccine Completed Pneumococcal Vaccine: 50+ Completed Bone Density Screening Addressed ASSESSMENT/PLAN: 1. Acute bilateral low back pain without sciatica - ICD9: 724.2, 338.19, ICD10: M54.50 - possible related to (more content not included)... Normal [facility] Ur[facility] complete panel (U )on 03-29-2025 Bacteria LM.HPF (Urine sed) [#/Area] Negative Normal Negative [facility] Comment on above: Order Comment: Speci men Type: URINE SPECIMENOrdering Facility: [facility] Address: [address] [place] [address] Performed By: #### 2 4356-8 ####[facility] LABCLIA [id number] [address], [place] [address] [place] Bilirubin Ql (U) Negative Normal Negative [facility] Comment on above: Order Comment: Speci men Type: URINE SPECIMENOrdering Facility: [facility] Address: [address] [place] [address] Performed By: #### 2 4356-8 ####[facility] LABCLIA [id number] [place] [address] [place] Clarity (Unsp spec) Clear Normal Clear [facility] Comment on above: Order Comment: Speci men Type: URINE SPECIMENOrdering Facility: [facility] Address: [address] [place] [address] Performed By: #### 2 4356-8 ####[facility] LABCLIA [id number] [place] [address] [place] Color (U) Yellow Normal Yellow [facility] Comment on above: Order Comment: Speci men Type: URINE SPECIMENOrdering Facility: [facility] Address: [address] [place] [address] Performed By: #### 2 4356-8 ####[facility] LABCLIA [id number] [place] [address] [place] Epithelial cells LM.HPF (Urine sed) [#/Area] None Seen Normal [facility] Comment on above: Order Comment: Speci men Type: URINE SPECIMENOrdering Facility: [facility] Address: [address] [place] [address] Performed By: #### 2 4356-8 ####[facility] LABCLIA [id number] [place] [id number] [place] Glucose Test strip (U) [Mass/Vol] Negative Normal Negative [facility] Comment on above: Order Comment: Speci men Type: URINE SPECIMENOrdering Facility: [facility] Address: [address] [place] [address] Performed By: #### 2 4356-8 ####[facility] LABCLIA [id number] [facility] [address] [place] [address] [place] Hemoglobin Ql (U) Negative Normal Negative [facility] Comment on above: Order Comment: Speci men Type: URINE SPECIMENOrdering Facility: [facility] Address: [address] [place] [address] Performed By: #### 2 4356-8 ####[facility] LABCLIA [id number] [address], [place] [address] [place] Hyaline casts (Urine sed) [#/Area] 0 /[LPF] Normal 0 /LPF [facility] Comment on above: Order Comment: Speci men Type: URINE SPECIMENOrdering Facility: [facility] Address: [address] [place] [address] Performed By: #### 2 4356-8 ####[facility] LABCLIA [id number] [address], [place] [address] [place] Ketones Ql (U) Negative Normal Negative [facility] Comment on above: Order Comment: Speci men Type: URINE SPECIMENOrdering Facility: [facility] Address: [address] [place] [address] Performed By: #### 2 4356-8 ####[facility] LABCLIA [id number] [address] [place] [address] [place] Leukocyte esterase Test strip Ql (U) Trace Abnormal Negative [facility] Comment on above: Order Comment: Speci men Type: URINE SPECIMENOrdering Facility: [facility] Address: [address] [place], [place] [id number] Performed By: #### 2 4356-8 ####[facility] LABCLIA [id number] [place] [address] [place] Nitrite Ql (U) Negative Normal Negative [facility] Comment on above: Order Comment: Speci men Type: URINE SPECIMENOrdering Facility: [facility] Address: [address] [place] [address] Performed By: #### 2 4356-8 ####[facility] LABIA [id number] [place] [address] [place] pH (U) 6.5 [pH] Normal <8.5 [facility] Comment on above: Order Comment: Speci men Type: URINE SPECIMENOrdering Facility: [facility] Address: [address] [place] [address] Performed By: #### 2 4356-8 ####[facility] LABIA [id number] [place] [address] [place] Protein (U) [Mass/Vol] Negative Normal Negative [facility] Comment on above: Order Comment: Speci men Type: URINE SPECIMENOrdering Facility: [facility] Address: [address] [place] [address] Performed By: #### 2 4356-8 ####[facility] LABIA [id number] [place] [address] [place] RBC LM.HPF (Urine sed) [#/Area] 0-2 /HPF Normal 0-2 /HPF [facility] Comment on above: Order Comment: Speci men Type: URINE SPECIMENOrdering Facility: [facility] Address: [address] [place] [address] Performed By: #### 2 4356-8 ####[facility] LABIA [id number] [place] [address] [place] Specific gravity (U) [Rel density] 1.013 Normal 1.005-1.030 [facility] Comment on above: Order Comment: Speci men Type: URINE SPECIMENOrdering Facility: [facility] Address: [address] [place] [address] Performed By: #### 2 4356-8 ####[facility] LABIA [id number] [place] [id number] [place] Urobilinogen Ql (U) 1.0 EU/dL Normal 0.2-1.0 EU/dL [facility] Comment on above: Order Comment: Speci men Type: URINE SPECIMENOrdering Facility: [facility] Address: [address] [place] [address] Performed By: #### 2 4356-8 ####[facility] LABIA [id number] [place] [id number] [place] WBC LM.HPF (Urine sed) [#/Area] 0-5 /HPF Normal 0-5 /HPF [facility] Comment on above: Order Comment: Speci men Type: URINE SPECIMENOrdering Facility: [facility] Address: [address] [place] [address] Performed By: #### 2 4356-8 ####[facility] LABIA [id number] [place] [id number] [place] Radiation Oncology Visiton 0 03-24-2025 Radiation Oncology Visit [facility] [address] [place] [address] OFFICE VISIT Date of Service: 03/24/25 1300 MR#: [id number] Acct: [id number] Name: SACHI GRACE Rep #: [id number] : 1935 From: Andi De Luna DO Age/Sex: 89/F Location: [facility] [place] Status: Signed Intake Vital Signs 03/17/25 13:29 03/24/25 13:05 Height 5 ft 1 in 5 ft 1 in Weight: 121 lb 8 oz 120 lb 8 oz BMI 22.9 22.7 BP 116/73 116/73 Blood Pressure Location Lt brachial Lt brachial Position Sitting Sitting Respiration 18 18 Pulse 98 92 Pulse Source Monitor Monitor Temp 98.3 F 99.2 F H Temperature Source Temporal Artery Temporal Artery Pulse Oximetry (%) 96 94 Oxygen Delivery Method room air room air Intake Visit Reasons: CONSULT - PANCREATIC CANCER Is patient in pain?: No Allergies cocamidopropyl betaine Allergy (Intermediate, Verified 03/24/25 13:05) Rash Sulfa (Sulfonamide Antibiotics) Allergy (Verified 03/24/25 13:05) Swelling Environmental Allergies: Uncoded (dust) Adverse Reaction (Severe, Verified 03/24/25 13:05) NEEDS FOLLOW-UP mold Adverse Reaction (Severe, Verified 03/24/25 13:05) NEEDS FOLLOW-UP metoprolol Adverse Reaction (Intermediate, Verified 03/24/25 13:05) I feel awful codeine Adverse Reaction (Verified 03/24/25 13:05) Nausea diphenhydramine (From Benadryl) Adverse Reaction (Verified 03/24/25 13:05) Nausea hydrocodone bitartrate (From Vicodin) Adverse Reaction (Verified 03/24/25 13:05) Nausea oxycodone HCl (From Percocet) Adverse Reaction (Verified 03/24/25 13:05) Nausea tetracycline Adverse Reaction (Verified 03/24/25 13:05) Nausea/Vom/Diarrhea Medications ???Medication ???Instructions ???Recorded ???Confirmed ???Type albuterol sulfate 90 mcg/actuation 1 puff inhalation Q4H PRN PRN 03/24/25 History aerosol inhaler Wheezing vit C 250 mg-vit E 90 mg-zinc 40 1 tab PO BID 11/22/17 03/24/25 His tory mg-copper 1 hl-rzflpq-xoefbs capsule (PreserVision AREDS-2) polyethylene glycol 3350 17 17 g PO QDAY PRN Constipation 03/0 01/1903/24/25 History gram/dose oral powder (Miralax) acetaminophen 325 mg tablet 500 mg (1.5385 x 325 mg) PO Q4H 03/24/25 Rx PRN PRN Mild-Moderate Pain (1-5/10) CBD Oral (INFORMATIONAL USE 11/10/24 03/24/25 History ONLY-PT USES ORAL CBD) nortriptyline 10 mg capsule 10 mg PO BID #120 caps 01/20/25 Rx levalbuterol tartrate 45 2 puff inhalation Q4 PRN 02/24/25 03/24/25 History mcg/actuation aerosol inhaler levothyroxine 50 mcg tablet 75 mcg PO DAILY 02/24/25 03/24/25 History ropinirole 0.5 mg tablet 0.5 mg PO DAILY 02/24/25 03/24/25 History lorazepam 0.5 mg tablet 0.5 mg PO BID PRN anxiety #60 tabs 03/12/25 03/24/25 Rx nitrofurantoin 1 cap PO BID 03/17/25 03/24/25 His tory monohydrate/macrocrystals 100 mg capsule ondansetron 8 mg disintegrating 8 mg PO Q12H PRN nausea and 03/24/25 Rx tablet vomiting #30 tabs Have you fallen in the past year?: No PFSH PFSH Medical History RUY (generalized anxiety disorder) Panic Wears partial dentures Fibromyalgia Arthritis History of ulceration History of diverticulitis Panic disorder Medication monitoring encounter Ventral incisional hernia without obstruction or gangrene Decreased sense of taste Chronic sphenoidal sinusitis Chronic ethmoidal sinusitis Chronic maxillary sinusitis Family history of colon cancer in father Pre-op evaluation Hyperlipidemia Syncope and collapse Mixed hyperlipidemia PSVT (paroxysmal supraventricular tachycardia) Chest discomfort Palpitations Hypothyroidism Asthma Home Medications ???Medication ???Instructions ???Recorded ???Last Taken ???Type albuterol sulfate 90 mcg/actuation 1 puff inhalation Q4H PRN PRN 09/26/20 05:30 History aerosol inhaler Wheezing vit C 250 mg-vit E 90 mg-zinc 40 1 tab PO BID 11/22/17 Unknown Hist ory mg-copper 1 th-hrqfwu-weujzu capsule (PreserVision AREDS-2) polyethylene glycol 3350 17 17 g PO QDAY PRN Constipation 01/19 Unknown History gram/dose oral powder (Miralax) acetaminophen 325 mg tablet 500 mg (1.5385 x 325 mg) PO Q4H Unknown Rx PRN PRN Mild-Moderate Pain (1-5/10) CBD Oral (INFORMATIONAL USE 11/10/24 Unknown History ONLY-PT USES ORAL CBD) nortriptyline 10 mg capsule 10 mg PO BID #120 caps 01/20/25 Un known Rx levalbuterol tartrate 45 2 puff inhalation Q4 PRN 02/24/25 Unknown History mcg/actuation aerosol inhaler levothyroxine 50 mcg tablet 75 mcg PO DAILY 02/24/25 Unknown H istory ropinirole 0.5 mg tablet 0.5 mg PO DAILY 02/24/25 Unknown H istory lorazepam 0.5 mg tablet 0.5 mg PO BID PRN anxiety #60 tabs 03/12/25 Unknown R (more content not included)... Normal [facility] PATH SENDOUT (SENDOUT)o n 03-22-2025 [facility] MISCELLANEOUS LAB TEST RESULT Normal [facility] Comment on above: Result Comment: KARIN Esquivel COMMENTS: CPT Codes: K86.9; K86.89 Results are attached to pathology report, case # [id number], and scanned into [employer]. Performed By: #### L [id number] ####Knit Goods Mender: ARIEL MARY ([id number])[address] CNOVon 03-18-2025 CNOV Office Visit (FAMPWS ) SACHI GRACE ([id number]) 1935 F NFR Date Time Provider Department 03/18/25 2:20 PM DAWIT PHELAN FAMPWS During your visit today, we recorded the following information about you: Pulse Blood pressure Weight 88/minute 124/78 55 kg Dawit Phelan APRN.AUTOMOBILE RENTAL AGENT 03/18/2025 2:41 PM Signed Chief Complaint Patient presents with: Follow Up HPI Sachi Grace is a 89 year old female who presents here today for Above Complaints.. Patient presents for continued dry mouth, back pain worse at night. Patient was diagnosed with UTI and started on macrobid 03/15. Patient was also recently diagnosed with pancreatic cancer and will be starting radiation. Also reports leg cramps during the night. Past medical history, appointments, medications, allergies reviewed. 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 Dupree-every 6 months Gout, unspecified late great toe, several episodes Hypothyroidism, unspecified Multinodular goiter Dr Boateng Osteoarthritis of both knees Other and unspecified hyperlipidemia diet therapy as of 03/08 Paroxysmal supraventricular tachycardia (HCC) ablation 01/2002 ( in [place], [facility]), follows with Dr. Moreno (prn only) RLS (restless legs syndrome) Tinnitus, unspecified ear Unspecified constipation Previous Surgical History PAST SURGICAL HISTORY Procedure Laterality Date APPENDECTOMY ARTHRP KNE CONDYLEANDPLATU MEDIALANDLAT COMPARTMENTS 2011 Knee replacement, total bilateral CARPAL TUNNEL 2004 bilateral COLONOSCOPY FLX DX W/COLLJ SPEC WHEN PFRMD 12/14/2002 Colonoscopy COLONOSCOPY FLX DX W/COLLJ SPEC WHEN PFRMD 06/10/2007 COLONOSCOPY FLX DX W/COLLJ SPEC WHEN PFRMD 08/04/2013 Colonoscopy COLONOSCOPY FLX DX W/COLLJ SPEC WHEN PFRMD 10/14/2018 [facility]. [facility]-Repeat 5 years COLONOSCOPY SCREENING 11/15/2023 R Cebul no repeat due to age CORRECT BUNION,SIMPLE left ECHOCARDIOGRAM 10/18/2017 EGD 1985 bleeding ulcer EPS: SVT/VT ABLATION 2001 [facility] ESOPHAGOGASTRODUODENOSCOPY TRANSORAL DIAGNOSTIC 03/24/2018 EGD HERNIA REPAIR HX 09/2020 ventral hernia repair HOLTER 24 HR 10/2017 LOOP RECORDER IMPLANT 01/23/2018 NASAL/SINUS ENDOSCOPY WITH SPHENOIDOTOMY Bilateral 05/15/2019 Dr. Ruffin NASAL/SINUS ENDOSCPY W/MAXILL ANTROSTOMY Bilateral 05/15/2019 Dr. Ruffin NASAL/SINUS ENDOSCPY W/TOTAL ETHMOIDECTOMY Bilateral 05/15/2019 Dr. Ruffin OPEN REPAIR OF ROTATOR CUFF ACUTE 04/2005 Dr. Mejias PAST SURGICAL HISTORY OF 10/1997 partial colectomy ([place], [facility]) PAST SURGICAL HISTORY OF 2011 nerves cut in my back STEREO LOC FOR CORE BRST BX LT 04/24/2010 left STRESS TEST 12/17/2017 TONSILLECTOMY PRIMARY/SECONDARY Family History FAMILY HISTORY Problem Relation Age of Onset Heart Mother rheumatic; 73 Colon Cancer Father dx'd age 50's Coronary Artery Disease Father age 40s, CABG (among the first done at in [place]) Stroke Sister at 58 of ruptured aneurysm Cancer Brother at 55 (tobacco, agent orange) DVT Sister Patient Allergies ALLERGIES Allergen Reactions Vicodin [Hydrocodon* GI Upset Buspirone Intolerance Anxious, jittery, felt worse, RLS worse. Cocamidopropyl Beta* Rash itching, rash Codeine GI Upset Pantoprazole GI Upset Bloating, constipation, increase in abd pain Percocet [Oxycodone* GI Upset Sulfa (Sulfonamide * Hives, Swelling lips swelled up Tetracycline GI Upset Current Medications Current Outpatient Medications on File Prior to Visit Medication Sig ondansetron (ZOFRAN) 4 mg tablet Take 1 tablet by mouth every 8 hours as needed for nausea/vomiting. propranolol (INDERAL) 10 mg tablet Take 1 tablet by mouth three times a day as needed. For palpitations nitrofurantoin monohydrate and macrocrystal (MACROBID) 100 mg capsule Take 1 capsule by mouth two times a day with meals for 5 days. rOPINIRole (REQUIP) 0.5 mg tablet Take 1.5 tablets by mouth daily at bedtime. Vit B Complex 100 Combo No.2 (B-100 COMPLEX) 100 mg TbER Take 1 tablet by mouth once daily. levothyroxine (SYNTHROID) 50 mcg tablet Take 50 mcg by mouth. Take 50 mcg on Saturday, and 75 mcg all other days of the week, per ENDO MEDICATION, NON-DATABASE CBD oil fluticasone propionate (ARMONAIR DIGIHALER) 232 mcg/actuation inhaler Inhale 1 Puff as instructed two times a day. levalbuterol tartrate HFA 45 mcg/actuation inhaler Inhale 1-2 Puffs as instructed every 4 hours as needed for wheezing/shortness of breath. Cholecalciferol, Vitamin D3, (VITAMIN D) 25 (more content not included)... Normal [facility] CNPNon [facility]-18-20[facility] SAHCI GRACE ([id number]) 1935 F NFR Date Time Provider Department 03/18/25 ANITRA MANCERA During your visit today, we recorded the following information about you: Anitra Mancera, COMPUTER SYSTEM SPECIALIST.AUTOMOBILE RENTAL AGENT 03/18/2025 2:43 PM Signed Patient was seen by hematology for pancreatic mass. Presented with abdominal pain to [facility], CT of the abdomen and pelvis done December 10, 2024 showed 2.8 cm mass ill-defined margins in the body of the pancreas. She was seen by GI on January 01, 2025 and referred for EUS and biopsy. That was done at [facility] on February 10, 2025 showed a 3.6 cm pancreatic head mass with invasion into the portal vein, S MV and SMA which was staged to T4 by endoscopic standard, no abdominal lymphadenopathy or evidence of liver metastasis. Pathology of the head of the pancreas fine-needle aspiration positive for malignant cells. Cellular features consistent with ductal adenocarcinoma. Referred for management of pancreatic cancer. PET and CT on March 02 showed hypermetabolic mass in the head of the pancreas CA 19-9 was 602 on February 24. Patient saw surgical oncologist on March 16 and comes for follow-up. Getting nausea and bloating. 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 CA 19-9 was 602. Neoadjuvant chemotherapy followed surgery/radiation combined with chemotherapy and radiation or chemotherapy. After meeting with the surgeon she has decided to not do surgery or chemotherapy and wants palliative radiation therapy. Patient will continue Percocet 5 mg every 6 hours as needed and to start Zofran as needed. CHARBEL avery today. Allergies As of Date: 03/18/2025 Noted Allergy Reaction VICODIN (HYDROCODONE-ACETAMINOPHE*01/2013 8 - GI Upset BUSPIRONE 04/21/2024 5 - Intolerance Comments: Anxious, jittery, felt worse, RLS worse. COCAMIDOPROPYL BETAINE 07/27/2020 2 - Rash Comments: itching, rash CODEINE 03/19/2007 8 - GI Upset PANTOPRAZOLE 12/18/2024 8 - GI Upset Comments: Bloating, constipation, increase in abd pain PERCOCET (OXYCODONE-ACETAMINOPHEN)04/02 8 - GI Upset SULFA (SULFONAMIDE ANTIBIOTICS) 03/19/2007 4 - Hives 7 - Swelling Comments: lips swelled up TETRACYCLINE 04/29/2019 8 - GI Upset Date Reviewed: 03/18/2025 Reviewed by: Federica Aggarwal MA - Fully Assessed Prescriptions as of 03/18/2025 - ondansetron (ZOFRAN) 4 mg tablet Take 1 tablet by mouth every 8 hours as needed for nausea/vomiting. - propranolol (INDERAL) 10 mg tablet Take 1 tablet by mouth three times a day as needed. For palpitations - nitrofurantoin monohydrate and macrocrystal (MACROBID) 100 mg capsule Take 1 capsule by mouth two times a day with meals for 5 days. - rOPINIRole (REQUIP) 0.5 mg tablet Take 1.5 tablets by mouth daily at bedtime. - Vit B Complex 100 Combo No.2 (B-100 COMPLEX) 100 mg TbER Take 1 tablet by mouth once daily. - levothyroxine (SYNTHROID) 50 mcg tablet Take 50 mcg by mouth. Take 50 mcg on Saturday, and 75 mcg all other days of the week, per ENDO - MEDICATION, NON-DATABASE CBD oil - fluticasone propionate (ARMONAIR DIGIHALER) 232 mcg/actuation inhaler Inhale 1 Puff as instructed two times a day. - levalbuterol tartrate HFA 45 mcg/actuation inhaler Inhale 1-2 Puffs as instructed every 4 hours as needed for wheezing/shortness of breath. - Cholecalciferol, Vitamin D3, (VITAMIN D) 25 mcg (1,000 unit) cap Take 1,000 Units by mouth once daily. - clonazePAM (KLONOPIN) 0.5 mg tablet Take 0.5 mg by mouth at bedtime as needed. Dr Dupree - vit A,C,U-Hrvv-Koxind (PRESERVISION AREDS) 7,160-113-100 hmkt-uc-pwyp tab Take by mouth. - ACETAMINOPHEN 500 MG TAB Take one(1) tablet every four(4) to six(6) hours as needed for pain. 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 Normal [facility] Comprehensive metabolic 2000 panelon 03-18-2025 Albumin [Mass/Vol] 4.2 g/dL Normal 3.9-4.9 [facility] Comment on above: Order Comment: Speci men Type: BLOOD SPECIMEN Ordering Facility: [facility] Address: [address] [place], [place] [address] [address] Performed By: #### 1 9123-9, 00319-3 #### [facility] CLIA [id number] [address] [place] [address] [place] ALP [Catalytic activity/Vol] 78 U/L Normal 34-123 [facility] Comment on above: Order Comment: Speci men Type: BLOOD SPECIMEN Ordering Facility: [facility] Address: [address] [place] [address] Performed By: #### 1 9123-9, 71284-2 #### [facility] CLIA [id number] [address] [place], [place] [address] [place] ALT [Catalytic activity/Vol] 21 U/L Normal 7-38 [facility] Comment on above: Order Comment: Speci men Type: BLOOD SPECIMEN Ordering Facility: [facility] Address: [address] [place] [address] Performed By: #### 1 9123-9, 16300-8 #### [facility] CLIA [id number] [address] [place] [address] [place] Anion gap [Moles/Vol] 11 mmol/L Normal 8-15 [facility] Comment on above: Order Comment: Speci men Type: BLOOD SPECIMEN Ordering Facility: [facility] Address: [address] [place] [address] Performed By: #### 1 9123-9, 88584-7 #### [facility] CLIA [id number] [address] [place] [address] [place] AST [Catalytic activity/Vol] 29 U/L Normal 13-35 [facility] Comment on above: Order Comment: Speci men Type: BLOOD SPECIMEN Ordering Facility: [facility] Address: [address] [place] [address] Performed By: #### 1 9123-9, 49290-0 #### [facility] CLIA [id number] [address] [place], [place] [address] [place] Bilirubin [Mass/Vol] 0.4 mg/dL Normal 0.2-1.3 [facility] Comment on above: Order Comment: Speci men Type: BLOOD SPECIMEN Ordering Facility: [facility] Address: [address] [place] [address] Performed By: #### 1 9123-9, #### [facility] CLIA [id number] [address] [place] [address] [place] Calcium [Mass/Vol] 9.8 mg/dL Normal 8.5-10.2 [facility] Comment on above: Order Comment: Speci men Type: BLOOD SPECIMEN Ordering Facility: [facility] Address: [address] [place] [address] Performed By: #### 1 9123-9, #### [facility] CLIA [id number] [address] [place] [address] [place] Chloride [Moles/Vol] 96 mmol/L Low 98-107 [facility] Comment on above: Order Comment: Speci men Type: BLOOD SPECIMEN Ordering Facility: [facility] Address: [address] [place] [address] Performed By: #### 1 9123-9, #### [facility] CLIA [id number] [address] [place] [address] [place] CO2 [Moles/Vol] 27 mmol/L Normal 22-30 [facility] Comment on above: Order Comment: Speci men Type: BLOOD SPECIMEN Ordering Facility: [facility] Address: [address] [place] [address] Performed By: #### 1 9123-9, #### [facility] CLIA [id number] [address] [place] [address] [place] Creatinine [Mass/Vol] 0.59 mg/dL Normal 0.58-0.96 [facility] Comment on above: Order Comment: Speci men Type: BLOOD SPECIMEN Ordering Facility: [facility] Address: [address] [place], [place] [address] Performed By: #### 1 9123-9, 42857-5 #### [facility] CLIA [id number] [address] [place] [address] [place] Creatinine and Glomerular filtration rate.predicted panel (S/P/Bld) 86 mL/min/1.73m??? Normal >=60 [facility] Comment on above: Order Comment: Pearl color[place] Type: BLOOD SPECIMEN Ordering Facility: [facility] Address: [address] [place] [address] Result Comment: Solitario mated Glomerular Filtration Rate (eGFR) is calculated using the 2020 CKD-EPI creatinine equation. This equation utilizes serum creatinine, sex, and age as parameters. The creatinine assay has traceable calibration to isotope dilution-mass spectrometry. Refer to KDIGO guidelines for clinical interpretation. In patients with unstable renal function, e.g. those with acute kidney injury, the eGFR may not accurately reflect actual GFR. Performed By: #### 1 9123-9, 93750-5 #### [facility] CLIA [id number] [address] [place] [address] [place] Glucose [Mass/Vol] 94 mg/dL Normal 74-99 [facility] Comment on above: Order Comment: Pearl colorado Type: BLOOD SPECIMEN Ordering Facility: [facility] Address: [address] [place] [address] Result Comment: The [place] Diabetes Association (ADA) provides guidance for cutoff values for fasting glucose and random glucose. The ADA defines fasting as no caloric intake for at least 8 hours. Fasting plasma glucose results between 100 to 125 mg/dL indicate increased risk for diabetes (prediabetes). Fasting plasma glucose results greater than or equal to 126 mg/dL meet the criteria for diagnosis of diabetes. In the absence of unequivocal hyperglycemia, results should be confirmed by repeat testing. In a patient with classic symptoms of hyperglycemia or hyperglycemic crisis, random plasma glucose results greater than or equal to 200 mg/dL meet the criteria for diagnosis of diabetes. Reference: Standards of Medical Care in Diabetes 2016, [place] [employer] Association. Diabetes Care. 2016.39(Suppl 1). Performed By: #### 1 9123-9, #### [facility] CLIA [id number] [address] [place] [address] [place] Potassium [Moles/Vol] 4.6 mmol/L Normal 3.7-5.1 [facility] Comment on above: Order Comment: Speci men Type: BLOOD SPECIMEN Ordering Facility: [facility] Address: [address] [place] [address] Performed By: #### 1 9123-9, #### [facility] CLIA [id number] [address] [place], [place] [address] [place] Protein [Mass/Vol] 6.8 g/dL Normal 6.3-8.0 [facility] Comment on above: Order Comment: Speci men Type: BLOOD SPECIMEN Ordering Facility: [facility] Address: [address] [place] [address] Performed By: #### 1 [address]12[address], #### [facility] CLIA [id number] [address] [place], [place] [address] [place] Sodium [Moles/Vol] 134 mmol/L Low 136-144 [facility] Comment on above: Order Comment: Speci men Type: BLOOD SPECIMEN Ordering Facility: [facility] Address: [address] [place] [address] Performed By: #### 1 9123-9, #### [facility] CLIA [id number] [address] [place], [place] [address] [place] Urea nitrogen [Mass/Vol] 15 mg/dL Normal 7-21 [facility] Comment on above: Order Comment: Speci men Type: BLOOD SPECIMEN Ordering Facility: [facility] Address: [address] [place] [address] Performed By: #### 1 9123-9, #### [facility] CLIA [id number] [address] [place] [address] [place] Magnesium SerPl-mCncon 03-18 Magnesium [Mass/Vol] 2.2 mg/dL Normal 1.7-2.3 [facility] Comment on above: Order Comment: Speci men Type: BLOOD SPECIMEN Ordering Facility: [facility] Address: [address] [place] [address] Performed By: #### 1 9123-9, 59118-7 #### [facility] CLIA [id number] [address] [place] [address] [place] NATERAon 03-17-2025 NATURA SEE SCANNED REPORT Normal [facility] Comment on above: Performed By: #### L 900.0098 ####[facility] [address] [facility] [place], [address] Oncology Visit Reporton 03-02 Oncology Visit Report [facility] [address] [facility] [facility] [place] [address] OFFICE VISIT Date of Service: 03/17/25 1329 MR#: [id number] Acct: [id number] Name: SACHI GRACE Lila Rep #: [id number] : 1935 From: Marques King MD Age/Sex: 89/F Location[place] [facility] Status: Signed HPI Subjective Date of Service 03/17/25 Chief Complaint F/u for Pancreatic cancer. History of Present Illness 89-year-old woman was found to have head/body pancreatic mass. Presented with abdominal pain to [facility], CT of the abdomen and pelvis on 12/10/2024 showed 2.8 cm mass with ill-defined margins in the body of the pancreas. She was seen by GI on 01/01/2025 and was referred for EUS and biopsy. She had EUS and biopsy at [facility] on 02/10/2025 which showed 3.6 cm pancreatic head mass with invasion into the portal vein SMV and SMA which was staged as T4 by endoscopic standards, no abdominal lymph adenopathy or evidence of liver metastasis. Pathology of head of pancreas FNA was positive for malignant cells, with cellular features consistent with ductal adenocarcinoma. She was referred for further management of pancreatic cancer. PET/CT on 03/02/2025 showed Hypermetabolic mass in the head of pancreas. CA19-9 was 602 on 02/24/2025. Saw Surgical Oncologist on 03/16/2025 and comes for follow up. Still getting nausea, bloating. [facility] Medical History RUY (generalized anxiety disorder) Panic Wears partial dentures Fibromyalgia Arthritis History of ulceration History of diverticulitis Panic disorder Medication monitoring encounter Ventral incisional hernia without obstruction or gangrene Decreased sense of taste Chronic sphenoidal sinusitis Chronic ethmoidal sinusitis Chronic maxillary sinusitis Family history of colon cancer in father Pre-op evaluation Hyperlipidemia Syncope and collapse Mixed hyperlipidemia PSVT (paroxysmal supraventricular tachycardia) Chest discomfort Palpitations Hypothyroidism Asthma Surgical History S/P ventral herniorrhaphy History of bilateral knee replacement Hx of rotator cuff surgery S/P carpal tunnel release S/P partial colectomy History of loop recorder H/O prior ablation treatment History of appendectomy History of tonsillectomy Family History Father Colon cancer CAD (coronary artery disease) Mother CAD (coronary artery disease) Sister CVA (cerebral vascular accident) Brother Cancer Lung cancer Social History household members: spouse Smoking Status: Never smoker alcohol intake: never substance use type: does not use caffeine: No what type of physical activity do you participate in: bicycling frequency: daily duration: 15-30 minutes/day seatbelt use: always do you feel safe at home: Yes Intake Vital Signs 03/04/25 09:42 03/17/25 13:29 Height 5 ft 1 in 5 ft 1 in Weight: 55.14 kg 55.111 kg BMI 22.9 22.9 BP 122/76 H 116/73 Blood Pressure Location Lt brachial Lt brachial Position Sitting Sitting Respiration 16 18 Pulse 92 98 Pulse Source Monitor Monitor Temp 98.4 F 98.3 F Temperature Source Temporal Artery Temporal Artery Pulse Oximetry (%) 99 96 Oxygen Delivery Method room air room air Intake Is patient in pain?: No Allergies cocamidopropyl betaine Allergy (Intermediate, Verified 03/17/25 13:33) Rash Sulfa (Sulfonamide Antibiotics) Allergy (Verified 03/17/25 13:33) Swelling Environmental Allergies: Uncoded (dust) Adverse Reaction (Severe, Verified 03/17/25 13:33) NEEDS FOLLOW-UP mold Adverse Reaction (Severe, Verified 03/17/25 13:33) NEEDS FOLLOW-UP metoprolol Adverse Reaction (Intermediate, Verified 03/17/25 13:33) I feel awful codeine Adverse Reaction (Verified 03/17/25 13:33) Nausea diphenhydramine (From Benadryl) Adverse Reaction (Verified 03/17/25 13:33) Nausea hydrocodone bitartrate (From Vicodin) Adverse Reaction (Verified 03/17/25 13:33) Nausea oxycodone HCl (From Percocet) Adverse Reaction (Verified 03/17/25 13:33) Nausea tetracycline Adverse Reaction (Verified 03/17/25 13:33) Nausea/Vom/Diarrhea Medications ???Medication ???Instructions ???Recorded ???Confirmed ???Type albuterol sulfate 90 mcg/actuation 1 puff inhalation Q4H PRN PRN 03/17/25 History aerosol inhaler Wheezing vit C 250 mg-vit E 90 mg-zinc 40 1 tab PO BID 11/22/17 03/17/25 His tory mg-copper 1 [id number]-asvukp capsule (PreserVision AREDS-2) polyethylene glycol 3350 17 17 g PO QDAY PRN Constipation 03/0 01/1903/17/25 History gram/dose oral powder (Miralax) acetaminophen 325 mg tablet 500 mg (1.5385 x 325 mg) PO Q4H 03/17 (more content not included)... Normal [facility] 37on 03-16-2025 37 -Patient nauseated, pain, anxiety, cries frequently -healthy, never smoked nor drink, remains active, self sufficient -family history of cancer, colon, breast and lung -treatment options for pancreatic cancer -chemotherapy, to see if cancer shrinks -surgery, seven hour surgery (hospital stay up to two weeks) -Palliative Care (Quality of Life) -Discuss with family, follow up with Dr. Prah -follow up as needed Normal [facility] 03-16-2025 CNPN Telephone (FAMPWS) SACHI GRACE ([id number]) 1935 F NFR Date Time Provider Department 03/16/25 ANITRA MANCERA FAMPWS During your visit today, we recorded the following information about you: Halima Diaz RN 03/16/2025 2:44 PM Signed Patient was seen by provider yesterday for anxiety/depression. During visit it was noted patient had abnormal urine test and was placed on macrobid. (There was not enough urine for culture). Pt to recheck urine once Macrobid is complete Patient calling in and states she has noticed a terrible back ache and pain in both of her sides over the last few days and wonders if it is related to the urine infection or also related to her pancreatic cancer. Rates it about 6 out of 10. Took tylenol about 30 minutes ago. No other new or worsening sx's. This nurse advised pt to continue taking all medications, including the macrobid, as prescribed, and to call provider's office if pain worsens. Also informed patient that provider would be updated of this call. Please call patient if provider has additional advise. YARY Patel Jacqueline A, COMPUTER SYSTEM SPECIALIST.[facility] 03/16/2025 2:56 PM Signed There was no blood in her urine. She did have a small amount of leukocytes indicating probable infection. The protein level was slightly elevated, meaning some dehydration. I do not think she has any kidney stones or anything like that since there is no blood in her urine. Could be related to the pancreatic cancer. If it was low in her pelvis, may be a bladder infection. Yarelis Oliva MA 03/16/2025 3:01 PM Signed Pt notified. Pain is around the belt line. Pain to touch and soreness. Pain with laying down. She is still on the Macrobid currently, started yesterday has had 2 pills so far. Call pt back with any further advise or recommendations. SABRINA Wan Jacqueline A, APRN.[employer] 03/16/2025 3:45 PM Signed Sounds like abdominal bloating. I know that she has had some of that with the pancreatic cancer. If she develops vomiting or pain is extremely uncomfortable, go to the emergency room. She was to see surgeon today. Wondering how that went or what they recommended? Zulma Benites MA 03/16/2025 5:22 PM Signed Spoke with patient and relayed provider message. She verbalizes understanding. Surgeon said she needs 3 month of chemo before she can have surgery. She sees oncologist tomorrow. Zulma Benites MA March 16, 2025 5:22 PM Allergies As of Date: 03/16/2025 Noted Allergy Reaction VICODIN (HYDROCODONE-ACETAMINOPHE*01/2013 8 - GI Upset BUSPIRONE 04/21/2024 5 - Intolerance Comments: Anxious, jittery, felt worse, RLS worse. COCAMIDOPROPYL BETAINE 07/27/2020 2 - Rash Comments: itching, rash CODEINE 03/19/2007 8 - GI Upset PANTOPRAZOLE 12/18/2024 8 - GI Upset Comments: Bloating, constipation, increase in abd pain PERCOCET (OXYCODONE-ACETAMINOPHEN)04/02 8 - GI Upset SULFA (SULFONAMIDE ANTIBIOTICS) 03/19/2007 4 - Hives 7 - Swelling Comments: lips swelled up TETRACYCLINE 04/29/2019 8 - GI Upset Date Reviewed: 03/15/2025 Reviewed by: Zulma Benites MA - Fully Assessed Reason for Visit: Patient Update [1234] Prescriptions as of 03/16/2025 - ondansetron (ZOFRAN) 4 mg tablet Take 1 tablet by mouth every 8 hours as needed for nausea/vomiting. - propranolol (INDERAL) 10 mg tablet Take 1 tablet by mouth three times a day as needed. For palpitations - nitrofurantoin monohydrate and macrocrystal (MACROBID) 100 mg capsule Take 1 capsule by mouth two times a day with meals for 5 days. - rOPINIRole (REQUIP) 0.5 mg tablet Take 1.5 tablets by mouth daily at bedtime. - Vit B Complex 100 Combo No.2 (B-100 COMPLEX) 100 mg TbER Take 1 tablet by mouth once daily. - levothyroxine (SYNTHROID) 50 mcg tablet Take 50 mcg by mouth. Take 50 mcg on Saturday, and 75 mcg all other days of the week, per ENDO - MEDICATION, NON-DATABASE CBD oil - fluticasone propionate (ARMONAIR DIGIHALER) 232 mcg/actuation inhaler Inhale 1 Puff as instructed two times a day. - levalbuterol tartrate HFA 45 mcg/actuation inhaler Inhale 1-2 Puffs as instructed every 4 hours as needed for wheezing/shortness of breath. - Cholecalciferol, Vitamin D3, (VITAMIN D) 25 mcg (1,000 unit) cap Take 1,000 Units by mouth once daily. - clonazePAM (KLONOPIN) 0.5 mg tablet Take 0.5 mg by mouth at bedtime as needed. Dr Dupree - vit A,C,X-Hvic-Bsqmij (PRESERVISION AREDS) 7,160-113-100 qcav-qk-xmry tab Take by mouth. - ACETAMINOPHEN 500 MG TAB Take one(1) tablet every four(4) to six(6) hours as needed for pain. Problem List As Of Date 03/16/2025 Noted Resolved Unspecified constipation [K59.00] 04/30/2006 03/16/2016 PEPTIC ULCER NOS [K27.9] 03/19/2007 GENERALIZED ANXIETY DIS [F41.1] Generalized osteoarthrosis, unspecified site [M* 12/23/2015 Myalgia and myositis [TBU9979] 05/22/2017 Diverticulosi (more content not included)... Normal [facility] Office Visiton 03-16-2025 Follow-up visit [id number] Dariana Grace 1935 F Date Provider Department Center 03/16/2025 [id number], AMIT [facility] HEP None No family history on file Level of Service:20849 RI OFFICE/OUTPATIENT NEW MODERATE MDM 45 MINUTES Reason for Visit and Comments: New Patient [542] - Evaluation of malignant neoplasm of head of pancreas, Pet Imaging pushed to [facility]-Referred (Dr. King) [facility] Progress Noteon 03-16-2025 Progress Note Met patient in Dr Sa aranda's office after OV. Introduced myself, reviewed my role and supportive care services. Needs assessment. Gave Ensure Max Pro samples and Clear Ensures. Gave recipe book, super shake and small frequent meals. States she has pain, early satiety and bloating when eating. Has had issues with constipation. Will be seeing Dr King tomorrow in [place]. Encouraged to get care there since it is so close to where she lives. Patient has been very anxious and tearful. Explained this is normal. She is seeing a counselor. Not sure what she wants to do for treatment at this time. Emotional support given. Encouraged to discuss genetic testing with Dr King and if they need to get appointment [facility] come here. Gave contact information and encouraged to reach out to me if there is anything she needs. Family at chair side and they were also given contact information. [facility] CNOVon 03-15-2025 CNOV Office Visit (FAMPWS ) SACHI GRACE ([id number]) 1935 F NFR Date Time Provider Department 03/15/25 10:20 AM ANITRA MANCERA FAMPWS During your visit today, we recorded the following information about you: Temperature Pulse Blood pressure Weight 98.5 degrees 94/minute 104/58 54 kg Anitra Mancera APRN.[employer] 03/15/2025 10:41 AM Addendum This is a 89 year old female who presents today with: Patient presents with: Acute Visit: Dry mouth, heart racing last night(115 bpm), one episode of diarrhea this morning. Feels like she might be having a panic attack. HISTORY OF PRESENT ILLNESS: Sachi Grace is a 89 year old female. Patient presents with: Acute Visit: Dry mouth, heart racing last night(115 bpm), one episode of diarrhea this morning. Feels like she might be having a panic attack. 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 Increased clonazepam. Can't tolerate because it makes her too sleepy. Dry mouth. Not getting restful sleep. + Nausea. No vomiting. + diarrhea today. + Chills. No fever. 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 Dupree-every 6 months Gout, unspecified late great toe, several episodes Hypothyroidism, unspecified Multinodular goiter Dr Boateng Osteoarthritis of both knees Other and unspecified hyperlipidemia diet therapy as of 03/08 Paroxysmal supraventricular tachycardia (HCC) ablation 01/2002 ( in [place], [facility]), follows with Dr. Moreno (prn only) RLS (restless legs syndrome) Tinnitus, unspecified ear Unspecified constipation PAST SURGICAL HISTORY Procedure Laterality Date APPENDECTOMY ARTHRP KNE CONDYLEANDPLATU MEDIALANDLAT COMPARTMENTS 2011 Knee replacement, total bilateral CARPAL TUNNEL 2004 bilateral COLONOSCOPY FLX DX W/COLLJ SPEC WHEN PFRMD 12/14/2002 Colonoscopy COLONOSCOPY FLX DX W/COLLJ SPEC WHEN PFRMD 06/10/2007 COLONOSCOPY FLX DX W/COLLJ SPEC WHEN PFRMD 08/04/2013 Colonoscopy COLONOSCOPY FLX DX W/COLLJ SPEC WHEN PFRMD 10/14/2018 [facility]. [facility]-Repeat 5 years COLONOSCOPY SCREENING 11/15/2023 R Ceb[facility] no repeat due to age CORRECT BUNION,SIMPLE left ECHOCARDIOGRAM 10/18/2017 EGD 1985 bleeding ulcer EPS: SVT/VT ABLATION 2001 [facility] ESOPHAGOGASTRODUODENOSCOPY TRANSORAL DIAGNOSTIC 03/24/2018 EGD HERNIA REPAIR HX 09/2020 ventral hernia repair HOLTER 24 HR 10/2017 LOOP RECORDER IMPLANT 01/23/2018 NASAL/SINUS ENDOSCOPY WITH SPHENOIDOTOMY Bilateral 05/15/2019 Dr. Ruffin NASAL/SINUS ENDOSCPY W/MAXILL ANTROSTOMY Bilateral 05/15/2019 Dr. Ruffin NASAL/SINUS ENDOSCPY W/TOTAL ETHMOIDECTOMY Bilateral 05/15/2019 Dr. Ruffin OPEN REPAIR OF ROTATOR CUFF ACUTE 04/2005 Dr. Mejias PAST SURGICAL HISTORY OF 10/1997 partial colectomy ([place], [facility]) PAST SURGICAL HISTORY OF 2011 nerves cut in my back STEREO LOC FOR CORE BRST BX LT 04/24/2010 left STRESS TEST 12/17/2017 TONSILLECTOMY PRIMARY/SECONDARY ALLERGIES Vicodin [Hydrocodone-Acetaminophen], Buspirone, Cocamidopropyl Betaine, Codeine, Pantoprazole, Percocet [Oxycodone-Acetaminophen], Sulfa (Sulfonamide Antibiotics), and Tetracycline MEDICATIONS Current Outpatient Medications Medication Sig rOPINIRole (REQUIP) 0.5 mg tablet Take 1.5 tablets by mouth daily at bedtime. Vit B Complex 100 Combo No.2 (B-100 COMPLEX) 100 mg TbER Take 1 tablet by mouth once daily. levothyroxine (SYNTHROID) 50 mcg tablet Take 50 mcg by mouth. Take 50 mcg on Saturday, and 75 mcg all other days of the week, per ENDO MEDICATION, NON-DATABASE CBD oil fluticasone propionate (ARMONAIR DIGIHALER) 232 mcg/actuation inhaler Inhale 1 Puff as instructed two times a day. levalbuterol tartrate HFA 45 mcg/actuation inhaler Inhale 1-2 Puffs as instructed every 4 hours as needed for wheezing/shortness of breath. Cholecalciferol, Vitamin D3, (VITAMIN D) 25 mcg (1,000 unit) cap Take 1,000 Units by mouth once daily. clonazePAM (KLONOPIN) 0.5 mg tablet Take 0.5 mg by mouth at bedtime as needed. Dr Dupree vit A,C,H-Ojji-Cwdfgm (PRESERVISION AREDS) 7,160-113-100 cmjf-si-rfgw tab Take by mouth. ACETAMINOPHEN 500 MG TAB Take one(1) tablet every four(4) to six(6) hours as needed for pain. No current facility-administered medications for this visit. FAMILY HISTORY Problem Relation Age of Onset Heart Mother rheumatic; 73 Colon Cancer Father dx'd age 50's Coronary Artery Disease Father age 40s, CABG (among the first done at in [place]) Stroke Sister di (more content not included)... Normal [facility] CNOV Office Visit (WSTR ) SACHI GRACE ([id number]) 1935 F NFR Date Time Provider Department 03/15/25 9:45 AM [facility] During your visit today, we recorded the following information about you: Nathalia Jay APRN.[employer]ENTAL [employer]ENT 03/15/2025 9:41 AM Signed Patient came in tearful. Patient says she was recently diagnosed with pancreatic cancer. Patient says she wakes up with a lot of anxiety throughout the night. Patient says she feels like her heart is racing and her mouth is dry. Patient said they did increase one of her anxiety medications but it is not helping. At this time patient should be evaluated by primary care for possible treatments to help patient. Patient agreeable was able to get her in at 10 AM. Allergies As of Date: 03/15/2025 Noted Allergy Reaction VICODIN (HYDROCODONE-ACETAMINOPHE*01/2013 8 - GI Upset BUSPIRONE 04/21/2024 5 - Intolerance Comments: Anxious, jittery, felt worse, RLS worse. COCAMIDOPROPYL BETAINE 07/27/2020 2 - Rash Comments: itching, rash CODEINE 03/19/2007 8 - GI Upset PANTOPRAZOLE 12/18/2024 8 - GI Upset Comments: Bloating, constipation, increase in abd pain PERCOCET (OXYCODONE-ACETAMINOPHEN)04/02 8 - GI Upset SULFA (SULFONAMIDE ANTIBIOTICS) 03/19/2007 4 - Hives 7 - Swelling Comments: lips swelled up TETRACYCLINE 04/29/2019 8 - GI Upset Date Reviewed: 12/18/2024 Reviewed by: Zulma Benites MA - Fully Assessed Primary Visit Diagnosis:Anxious mood [F41.9] Prescriptions as of 03/15/2025 - rOPINIRole (REQUIP) 0.5 mg tablet Take 1.5 tablets by mouth daily at bedtime. - Vit B Complex 100 Combo No.2 (B-100 COMPLEX) 100 mg TbER Take 1 tablet by mouth once daily. - levothyroxine (SYNTHROID) 50 mcg tablet Take 50 mcg by mouth. Take 50 mcg on Saturday, and 75 mcg all other days of the week, per ENDO - MEDICATION, NON-DATABASE CBD oil - fluticasone propionate (ARMONAIR DIGIHALER) 232 mcg/actuation inhaler Inhale 1 Puff as instructed two times a day. - levalbuterol tartrate HFA 45 mcg/actuation inhaler Inhale 1-2 Puffs as instructed every 4 hours as needed for wheezing/shortness of breath. - Cholecalciferol, Vitamin D3, (VITAMIN D) 25 mcg (1,000 unit) cap Take 1,000 Units by mouth once daily. - clonazePAM (KLONOPIN) 0.5 mg tablet Take 0.5 mg by mouth at bedtime as needed. Dr Dupree - vit A,C,R-Qzij-Ptolhi (PRESERVISION AREDS) 7,160-113-100 yfsx-wv-htyl tab Take by mouth. - ACETAMINOPHEN 500 MG TAB Take one(1) tablet every four(4) to six(6) hours as needed for pain. Problem List As Of Date 03/15/2025 Noted Resolved Unspecified constipation [K59.00] 04/30/2006 03/16/2016 PEPTIC ULCER NOS [K27.9] 03/19/2007 GENERALIZED ANXIETY DIS [F41.1] Generalized osteoarthrosis, unspecified site [M* 12/23/2015 Myalgia and myositis [[id number]] 05/22/2017 Diverticulosis of large intestine [K57.30] Disorder of bone and cartilage [M89.9, M94.9] Hypothyroidism [E03.9] Hyperlipidemia LDL goal <130 [E78.5] Gout, unspecified [M10.9] 12/23/2015 PEPTIC ULCER NOS [K27.9] 03/19/2007 PAROX ATRIAL TACHYCARDIA [I47.10] 03/19/2007 Disturbances of sensation of smell and taste [R*02/13/2008 05/22/2017 Chronic maxillary sinusitis [J32.0] 02/13/2008 05/22/2017 Meniere's disease, unspecified [H81.09] 05/20/2008 03/16/2016 Dizziness and giddiness [R42] 05/13/2009 12/23/2015 Cervicalgia [M54.2] 05/13/2009 12/23/2015 Osteoarthritis of both knees [M17.0] Multinodular goiter [E04.2] Syncope and collapse [R55] 04/30/2014 12/23/2015 History of knee replacement, total [Z96.659] 12/23/2015 Ageusia [R43.2] 02/23/2016 05/22/2017 Glossitis [K14.0] 02/23/2016 05/22/2017 Mild intermittent asthma without complication [*03/16/2016 Paroxysmal supraventricular tachycardia (HCC) [* Nausea [R11.0] 03/20/2018 04/29/2019 Hernia of anterior abdominal wall [K43.9] 04/18/2020 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] 04/18/2020 BPPV (benign paroxysmal positional vertigo), un*04/22/2020 Itching [L29.9] 07/27/2020 Orthostatic syncope [I95.1] 07/27/2020 RLS (restless legs syndrome) [G25.81] Asthma [J45.909] Benzodiazepine dependence (HCC) [F13.20] 05/29/2023 Anxiety [F41.9] 01/01/2024 Diagnosed: 01/01/2024 Chronic ethmoidal sinusitis [J32.2] 01/01/2024 Diagnosed: 01/01/2024 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*05/27/2012 Diagnosed: 01/01/2024 Disorder of bursae of shoulder region [M71.9] 01/24/2012 Diagnosed: 01/01/2024 Encounter for pre-operative examination [Z01.81*01/01/2024 Diagnosed: 01/01/2024 Family history of malignant neoplasm of colon [*10/08/2023 Diagnosed: 01/01/2024 History of appendectomy [Z90.49] 01/01/2024 Diagnosed: 01/01/2024 Hernia [K46.9] 01/01/2024 Diagnosed: 01/01/2024 History of partial surgical removal of colon [Z*10/08/2023 Diagnosed: 01/01/2024 Low back pain [M54.50] 09/18/2011 Diagnosed: 01/01/2024 Lumbosacral spondylosis witho (more content not included)... Normal [facility] UA DIP, URINE (POC)on 2024 BILIRUBIN UA (POCT) Negative Negative [facility] CLARITY UA (POCT) Clear [facility] COLOR UA (POCT) Yellow [facility] GLUCOSE UA (POCT) Negative Negative mg/dL [facility] Hemoglobin Ql (U) Negative Negative [facility] Interpretation and review of laboratory results Abnormal [facility] KETONE UA (POCT) Negative Negative mg/dL [facility] LEUKOCYTES UA (POCT) Small Abnormal Negative [facility] NITRITE UA (POCT) Negative Negative [facility] PH UA (POCT) 6 4.5 - 8.0 [facility] Protein Ql (U) 30 mg/dL Abnormal Negative [facility] SPECIFIC GRAVITY UA (POCT) 1.015 1.005 - 1.030 [facility] UROBILINOGEN UA (POCT) 0.2 Normal E.U./dL [facility] Location:[address], [place], [place], [id number] [place] [address] POINT OF CARE [facility] 36on 03-09-2025 36 Message received req uesting a sooner appointment with Dr. Troncoso. Appointment moved up to 03/16/25 @ 10:30 am. New appointment date & time provided to the patient, verbalizes understanding. roll line operator updated with new appointment date & time. Normal [facility] Oncology Visit Reporton Oncology Visit Report [facility] [address] [place] [address] OFFICE VISIT Date of Service: 03/04/25 0938 MR#: [id number] Acct: [id number] Name: SACHI GRACE Lila Rep #: [id number] : 1935 From: Marques King MD Age/Sex: 89/F [place] [facility] [place] Status: Signed [facility] Subjective Date of Service 03/04/25 Chief Complaint Referred for Pancreatic cancer. History of Present Illness 89-year-old woman was found to have head/body pancreatic mass. Presented with abdominal pain to [place] [facility], CT of the abdomen and pelvis on 12/10/2024 showed 2.8 cm mass with ill-defined margins in the body of the pancreas. She was seen by GI on 01/01/2025 and was referred for EUS and biopsy. She had EUS and biopsy at [facility] on 02/10/2025 which showed 3.6 cm pancreatic head mass with invasion into the portal vein SMV and SMA which was staged as T4 by endoscopic standards, no abdominal lymph adenopathy or evidence of liver metastasis. Pathology of head of pancreas FNA was positive for malignant cells, with cellular features consistent with ductal adenocarcinoma. She was referred for further management of pancreatic cancer. She had PET/CT and CA19-9 done and comes for follow up. [facility] Medical History RUY (generalized anxiety disorder) Panic Wears partial dentures Fibromyalgia Arthritis History of ulceration History of diverticulitis Panic disorder Medication monitoring encounter Ventral incisional hernia without obstruction or gangrene Decreased sense of taste Chronic sphenoidal sinusitis Chronic ethmoidal sinusitis Chronic maxillary sinusitis Family history of colon cancer in father Pre-op evaluation Hyperlipidemia Syncope and collapse Mixed hyperlipidemia PSVT (paroxysmal supraventricular tachycardia) Chest discomfort Palpitations Hypothyroidism Asthma Surgical History S/P ventral herniorrhaphy History of bilateral knee replacement Hx of rotator cuff surgery S/P carpal tunnel release S/P partial colectomy History of loop recorder H/O prior ablation treatment History of appendectomy History of tonsillectomy Family History Father Colon cancer CAD (coronary artery disease) Mother CAD (coronary artery disease) Sister CVA (cerebral vascular accident) Brother Cancer Lung cancer Social History household members: spouse Smoking Status: Never smoker alcohol intake: never substance use type: does not use caffeine: No what type of physical activity do you participate in: bicycling frequency: daily duration: 15-30 minutes/day seatbelt use: always do you feel safe at home: Yes Intake Vital Signs 02/24/25 08:41 03/03/25 10:06 03/04/25 09:39 03/04/25 09:42 Height 5 ft 1 in 5 ft 1 in 5 ft 1 in 5 ft 1 in Weight: 55.14 kg BMI 22.9 BP 122/76 H Blood Pressure Location Lt brachial Position Sitting Respiration 16 Pulse 92 Pulse Source Monitor Temp 98.4 F Temperature Source Temporal Artery Pulse Oximetry (%) 99 Oxygen Delivery Method room air Intake Is patient in pain?: No Allergies cocamidopropyl betaine Allergy (Intermediate, Verified 03/04/25 09:41) Rash Sulfa (Sulfonamide Antibiotics) Allergy (Verified 03/04/25 09:41) Swelling Environmental Allergies: Uncoded (dust) Adverse Reaction (Severe, Verified 03/04/25 09:41) NEEDS FOLLOW-UP mold Adverse Reaction (Severe, Verified 03/04/25 09:41) NEEDS FOLLOW-UP metoprolol Adverse Reaction (Intermediate, Verified 03/04/25 09:41) I feel awful codeine Adverse Reaction (Verified 03/04/25 09:41) Nausea diphenhydramine (From Benadryl) Adverse Reaction (Verified 03/04/25 09:41) Nausea hydrocodone bitartrate (From Vicodin) Adverse Reaction (Verified 03/04/25 09:41) Nausea oxycodone HCl (From Percocet) Adverse Reaction (Verified 03/04/25 09:41) Nausea tetracycline Adverse Reaction (Verified 03/04/25 09:41) Nausea/Vom/Diarrhea Medications ???Medication ???Instructions ???Recorded ???Confirmed ???Type albuterol sulfate 90 mcg/actuation 1 puff inhalation Q4H PRN PRN 03/04/25 History aerosol inhaler Wheezing vit C 250 mg-vit E 90 mg-zinc 40 1 tab PO BID 11/22/17 03/04/25 His tory mg-copper 1 wg-gocoqp-vnhzak capsule (PreserVision AREDS-2) polyethylene glycol 3350 17 17 g PO QDAY PRN Constipation 03/01/1903/04/25 History gram/dose oral powder (Miralax) acetaminophen 325 mg tablet 500 mg (1.5385 x 325 mg) PO Q4H 03/04/25 Rx PRN PRN Mild-Moderate Pain (1-5/10) CBD Oral (INFORMATIONAL USE 11/10/24 03/04/25 History ONLY-PT USES ORAL CBD) nortriptyline 10 mg capsule 10 mg PO BID #120 caps 01/02 (more content not included)... Normal [facility] MR/BMS.BPon 03-03-2025 MR/BMS.BP [facility] [address], [address] [place] [address] OFFICE VISIT Date of Service: 03/03/25 MR#: [id number] Acct: [id number] Name: SACHI GRACE Rep #: [id number] : 1935 Provider: Dr. Hugh Moss se, Age/Sex: 89/F [place] [facility] [place] Status: Signed Intake Vital Signs 02/24/25 08:41 03/03/25 10:06 Height 5 ft 1 in 5 ft 1 in Weight: 122 lb 3 oz BMI 23.1 BP 138/84 H Blood Pressure Location Lt brachial Position Sitting Respiration 18 Pulse 94 Pulse Source Monitor BP Intake Visit Reasons: follow up Accompanied by: Allergies cocamidopropyl betaine Allergy (Intermediate, Verified 03/03/25 10:08) Rash Sulfa (Sulfonamide Antibiotics) Allergy (Verified 03/03/25 10:08) Swelling Environmental Allergies: Uncoded (dust) Adverse Reaction (Severe, Verified 03/03/25 10:08) NEEDS FOLLOW-UP mold Adverse Reaction (Severe, Verified 03/03/25 10:08) NEEDS FOLLOW-UP metoprolol Adverse Reaction (Intermediate, Verified 03/03/25 10:08) I feel awful codeine Adverse Reaction (Verified 03/03/25 10:08) Nausea diphenhydramine (From Benadryl) Adverse Reaction (Verified 03/03/25 10:08) Nausea hydrocodone bitartrate (From Vicodin) Adverse Reaction (Verified 03/03/25 10:08) Nausea oxycodone HCl (From Percocet) Adverse Reaction (Verified 03/03/25 10:08) Nausea tetracycline Adverse Reaction (Verified 03/03/25 10:08) Nausea/Vom/Diarrhea Medications ???Medication ???Instructions ???Recorded ???Confirmed ???Type albuterol sulfate 90 mcg/actuation 1 puff inhalation Q4H PRN PRN 03/03/25 History aerosol inhaler Wheezing vit C 250 mg-vit E 90 mg-zinc 40 1 tab PO BID 11/22/17 03/03/25 His tory mg-copper 1 yw-xzdzrg-cibxvs capsule (PreserVision AREDS-2) polyethylene glycol 3350 17 17 g PO QDAY PRN Constipation 01/1903/03/25 History gram/dose oral powder (Miralax) acetaminophen 325 mg tablet 500 mg (1.5385 x 325 mg) PO Q4H 03/03/25 Rx PRN PRN Mild-Moderate Pain (1-5/10) CBD Oral (INFORMATIONAL USE 11/10/24 03/03/25 History ONLY-PT USES ORAL CBD) nortriptyline 10 mg capsule 10 mg PO BID #120 caps 01/20/25 Rx levalbuterol tartrate 45 2 puff inhalation Q4 PRN 02/24/25 03/03/25 History mcg/actuation aerosol inhaler levothyroxine 50 mcg tablet 75 mcg PO DAILY 02/24/25 03/03/25 History lorazepam 0.5 mg tablet 0.5 mg PO .COMPLEX PRN anxiety #1 02/24/25 03/03/25 Rx TAB oxycodone-acetaminophen 5 mg-325 1 tab PO Q4-6H PRN pain 15 days 03/03/25 Rx mg tablet (Percocet) #30 tabs ropinirole 0.5 mg tablet 0.5 mg PO DAILY 02/24/25 03/03/25 History clonazepam 0.5 mg tablet 0.5 mg PO BID PRN panic #60 tabs 0 03/03/25 03/03/25 Rx Have you fallen in the past year?: No PFSH Medical History Wears partial dentures Fibromyalgia Arthritis History of ulceration History of diverticulitis Panic disorder Medication monitoring encounter Ventral incisional hernia without obstruction or gangrene Decreased sense of taste Chronic sphenoidal sinusitis Chronic ethmoidal sinusitis Chronic maxillary sinusitis Family history of colon cancer in father Pre-op evaluation Hyperlipidemia Syncope and collapse Mixed hyperlipidemia PSVT (paroxysmal supraventricular tachycardia) Chest discomfort Palpitations Hypothyroidism Asthma Surgical History S/P ventral herniorrhaphy History of bilateral knee replacement Hx of rotator cuff surgery S/P carpal tunnel release S/P partial colectomy History of loop recorder H/O prior ablation treatment History of appendectomy History of tonsillectomy Family History Father Colon cancer CAD (coronary artery disease) Mother CAD (coronary artery disease) Sister CVA (cerebral vascular accident) Brother Cancer Lung cancer Social History household members: spouse Smoking Status: Never smoker alcohol intake: never substance use type: does not use caffeine: No what type of physical activity do you participate in: bicycling frequency: daily duration: 15-30 minutes/day seatbelt use: always do you feel safe at home: Yes HPI History of Present Illness History provided by: patient HPI: Sachi Grace is an 89 year old female who presents today for follow up evaluation. Patient presents today with her , Shashank. Patient presents today secondary to having recently been diagnosed with pancreatic cancer. Had a PET scan yesterday and is awaiting results. Follows with Dr. King tomorrow regarding this. Has been crying much more recently since being diagnosed with cancer. (more content not included)... Normal [facility] PET/CT Tumor Base -Thigh Ini ton 03-02-2025 PET/CT Tumor Base -Thigh Init [facility] Imaging Services [address] [place] [address] PET/CT Tumor Base -Thigh Init MR#: [id number] Acct: [id number] Name: SACHI GRACE Rep #: [id number] : 1935 F 89 From: Subhash Hwang DO PCP: Anitra Mancera, CONSUMER LOAN OFFICER Status: REG RCR Study: PET/CT Tumor Base -Thigh Init Date of Exam: Exam# [id number] Ordering Dr: Marques King MD EXAM: PET-CT of the skull base to the mid thigh CLINICAL HISTORY: Pancreatic cancer COMPARISON: CT abdomen and pelvis TECHNIQUE: Agent: F 18 fluorodeoxyglucose. Dose: 14.49 mCi Blood glucose: 99 mg/dL CT images for attenuation correction and anatomic localization followed by PET images from the skull base to the thighs were obtained. No previous PET scans. No prior images. Report of CT of abdomen and pelvis from 12/10/2024 was reviewed. FINDINGS: Neck: Soft tissue chest wall background activity is 0.73 SUV. Mediastinal blood pool background activity is 1.55 SUV 3 hypermetabolic foci are seen in the thyroid gland. 2 left thyroid nodules are identified with hypermetabolism of for 4.7 SUV single right thyroid nodule displays 3.3 SUV. Remaining soft tissues of the neck and glandular structures are without areas of abnormal increased metabolism. Chest: No hilar or mediastinal adenopathy. No hypermetabolic pulmonary nodules or masses are identified. Abdomen/pelvis: Focus of increased uptake is seen in the region of the pancreatic head measuring 5.4 SUV there is normal distribution of the radiotracer within the gastrointestinal and genitourinary system otherwise without focal areas of abnormal metabolism no evidence of adenopathy. PET/PET/CT Tumor Base -Thigh Init IMPRESSION: 1. Markedly abnormal hypermetabolic mass in the pancreatic head worrisome for primary pancreatic malignancy. 2. Incidental discovery of 3 hypermetabolic thyroid nodules Reading Location: [facility], [facility]1983 CC: [facility] Anitra Mancera; Dr. Marques King MD Horse Racer: Signed Normal [facility] Carbohydrate AG 19-9on 02-25 CA 19-9 602 U/mL High 0-35 [facility] Comment on above: Result Comment: [employer] Electrochemiluminescence Immunoassay (ECLIA) Values obtained with different assay methods or kits cannot be used interchangeably. Results cannot be interpreted as absolute evidence of the presence or absence of malignant disease. Performed at: [employer] [address] [id number] Branch Operation Evaluation Manager: Quintin Barba PhD, Phone: [phone] Performed By: #### L [id number] #### [facility] [address] [place], [place] [address]. [place], [place], [address] 36on 02-24-[address] Lagunas ' office phoned regarding patient. Dr. King would like to discuss patient with you today. Could you please call him @ [phone]. Press option 2 and someone will come and get him. Patient had an EUS by Dr. Franco on 02/10/2025/FNA path positive ductal adenocarcinoma Normal [facility] [address] Dr. King would like to speak with you regarding this patient. Can you please call him @ [phone] press option 2 and someone will get him. Patient had EUS by Dr. Franco on 02/10/2025 [facility] Oncology Visit Reporton 01-31 Oncology Visit Report [facility] [address] [place], [place] [address] OFFICE VISIT Date of Service: 02/24/25 0833 MR#: [id number] Acct: [id number] Name: SACHI GRACE Rep #: [id number] : 1935 From: Marques King MD Age/Sex: 89/F Location[place] [facility] Status: Signed HPI Subjective Date of Service 02/24/25 Chief Complaint Referred for Pancreatic cancer. History of Present Illness 89-year-old woman was found to have head/body pancreatic mass. Presented with abdominal pain to [facility], CT of the abdomen and pelvis on 12/10/2024 showed 2.8 cm mass with ill-defined margins in the body of the pancreas. She was seen by GI on 01/01/2025 and was referred for EUS and biopsy. She had EUS and biopsy at [facility] on 02/10/2025 which showed 3.6 cm pancreatic head mass with invasion into the portal vein SMV and SMA which was staged as T4 by endoscopic standards, no abdominal lymph adenopathy or evidence of liver metastasis. Pathology of head of pancreas FNA was positive for malignant cells, with cellular features consistent with ductal adenocarcinoma. She is now referred for further management of pancreatic cancer. Still has central abdominal pain on and off, has nausea, no vomiting or diarrhea or constipation. [facility] Medical History Wears partial dentures Fibromyalgia Arthritis History of ulceration History of diverticulitis Panic disorder Medication monitoring encounter Ventral incisional hernia without obstruction or gangrene Decreased sense of taste Chronic sphenoidal sinusitis Chronic ethmoidal sinusitis Chronic maxillary sinusitis Family history of colon cancer in father Pre-op evaluation Hyperlipidemia Syncope and collapse Mixed hyperlipidemia PSVT (paroxysmal supraventricular tachycardia) Chest discomfort Palpitations Hypothyroidism Asthma Surgical History S/P ventral herniorrhaphy History of bilateral knee replacement Hx of rotator cuff surgery S/P carpal tunnel release S/P partial colectomy History of loop recorder H/O prior ablation treatment History of appendectomy History of tonsillectomy Family History Father Colon cancer CAD (coronary artery disease) Mother CAD (coronary artery disease) Sister CVA (cerebral vascular accident) Brother Cancer Lung cancer Social History household members: spouse Smoking Status: Never smoker alcohol intake: never substance use type: does not use caffeine: No what type of physical activity do you participate in: bicycling frequency: daily duration: 15-30 minutes/day seatbelt use: always do you feel safe at home: Yes Intake Vital Signs 12/10/24 19:34 02/24/25 08:38 02/24/25 08:40 02/24/25 08:41 Height 5 ft 1 in 5 ft 1 in 5 ft 1 in 5 ft 1 in Weight: 55.423 kg 55.423 kg BMI 23.1 23.1 BP 130/82 H Blood Pressure Location Rt brachial Position Sitting Respiration 18 Pulse 92 Pulse Source Monitor Temp 98.3 F Temperature Source Temporal Artery Pulse Oximetry (%) 97 Oxygen Delivery Method room air Intake Is patient in pain?: Yes (belly) Pain scale (1-10): 7 Allergies cocamidopropyl betaine Allergy (Intermediate, Verified 02/24/25 08:34) Rash Sulfa (Sulfonamide Antibiotics) Allergy (Verified 02/24/25 08:34) Swelling Environmental Allergies: Uncoded (dust) Adverse Reaction (Severe, Verified 02/24/25 08:34) NEEDS FOLLOW-UP mold Adverse Reaction (Severe, Verified 02/24/25 08:34) NEEDS FOLLOW-UP metoprolol Adverse Reaction (Intermediate, Verified 02/24/25 08:34) I feel awful codeine Adverse Reaction (Verified 02/24/25 08:34) Nausea diphenhydramine (From Benadryl) Adverse Reaction (Verified 02/24/25 08:34) Nausea hydrocodone bitartrate (From Vicodin) Adverse Reaction (Verified 02/24/25 08:34) Nausea oxycodone HCl (From Percocet) Adverse Reaction (Verified 02/24/25 08:34) Nausea tetracycline Adverse Reaction (Verified 02/24/25 08:34) Nausea/Vom/Diarrhea Medications ???Medication ???Instructions ???Recorded ???Confirmed ???Type albuterol sulfate 90 mcg/actuation 1 puff inhalation Q4H PRN PRN 02/24/25 History aerosol inhaler Wheezing vit C 250 mg-vit E 90 mg-zinc 40 1 tab PO BID 11/22/17 02/24/25 His tory mg-copper 1 mg-djdvus-vzttme capsule (PreserVision AREDS-2) polyethylene glycol 3350 17 17 g PO QDAY PRN Constipation 03/01/1902/24/25 History gram/dose oral powder (Miralax) acetaminophen 325 mg tablet 500 mg (1.5385 x 325 mg) PO Q4H 02/24/25 Rx PRN PRN Mild-Moderate Pain (1-5/10) CBD Oral (INFORMATIONAL USE 11/10/24 01/01/25 History ONLY-PT USES O (more content not included)... Normal [facility] 02-15-2025 [facility] Telephone (FAMPWS) SACHI GRACE ([id number]) 1935 F NFR Date Time Provider Department 02/15/25 ANITRA MANCERA During your visit today, we recorded the following information about you: Zulma Benites MA 02/15/2025 9:54 AM Signed PCP was asking for update on patient about GI consult. Spoke with patient, she had biopsy done at [facility]. She said she has pancreatic cancer. She is going to see [facility] oncology office. They are waiting for final pathology results to make her appointment. Zulma Benites MA February 15, 2025 9:54 AM Allergies As of Date: 02/15/2025 Noted Allergy Reaction VICODIN (HYDROCODONE-ACETAMINOPHE*01/2013 8 - GI Upset BUSPIRONE 04/21/2024 5 - Intolerance Comments: Anxious, jittery, felt worse, RLS worse. COCAMIDOPROPYL BETAINE 07/27/2020 2 - Rash Comments: itching, rash CODEINE 03/19/2007 8 - GI Upset PANTOPRAZOLE 12/18/2024 8 - GI Upset Comments: Bloating, constipation, increase in abd pain PERCOCET (OXYCODONE-ACETAMINOPHEN)04/02 8 - GI Upset SULFA (SULFONAMIDE ANTIBIOTICS) 03/19/2007 4 - Hives 7 - Swelling Comments: lips swelled up TETRACYCLINE 04/29/2019 8 - GI Upset Date Reviewed: 12/18/2024 Reviewed by: Zulma Benites MA - Fully Assessed Reason for Visit: Patient Update [1234] Prescriptions as of 02/15/2025 - rOPINIRole (REQUIP) 0.5 mg tablet Take 1.5 tablets by mouth daily at bedtime. - Vit B Complex 100 Combo No.2 (B-100 COMPLEX) 100 mg TbER Take 1 tablet by mouth once daily. - levothyroxine (SYNTHROID) 50 mcg tablet Take 50 mcg by mouth. Take 50 mcg on Saturday, and 75 mcg all other days of the week, per ENDO - MEDICATION, NON-DATABASE CBD oil - fluticasone propionate (ARMONAIR DIGIHALER) 232 mcg/actuation inhaler Inhale 1 Puff as instructed two times a day. - levalbuterol tartrate HFA 45 mcg/actuation inhaler Inhale 1-2 Puffs as instructed every 4 hours as needed for wheezing/shortness of breath. - Cholecalciferol, Vitamin D3, (VITAMIN D) 25 mcg (1,000 unit) cap Take 1,000 Units by mouth once daily. - clonazePAM (KLONOPIN) 0.5 mg tablet Take 0.5 mg by mouth at bedtime as needed. Dr Dupree - vit A,C,Z-Xdnp-Hqtrot (PRESERVISION AREDS) 7,160-113-100 zbxx-pd-wokp tab Take by mouth. - ACETAMINOPHEN 500 MG TAB Take one(1) tablet every four(4) to six(6) hours as needed for pain. Problem List As Of Date 02/15/2025 Noted Resolved Unspecified constipation [K59.00] 04/30/2006 03/16/2016 PEPTIC ULCER NOS [K27.9] 03/19/2007 GENERALIZED ANXIETY DIS [F41.1] Generalized osteoarthrosis, unspecified site [M* 12/23/2015 Myalgia and myositis [[id number]] 05/22/2017 Diverticulosis of large intestine [K57.30] Disorder of bone and cartilage [M89.9, M94.9] Hypothyroidism [E03.9] Hyperlipidemia LDL goal <130 [E78.5] Gout, unspecified [M10.9] 12/23/2015 PEPTIC ULCER NOS [K27.9] 03/19/2007 PAROX ATRIAL TACHYCARDIA [I47.10] 03/19/2007 Disturbances of sensation of smell and taste [R*02/13/2008 05/22/2017 Chronic maxillary sinusitis [J32.0] 02/13/2008 05/22/2017 Meniere's disease, unspecified [H81.09] 05/20/2008 03/16/2016 Dizziness and giddiness [R42] 05/13/2009 12/23/2015 Cervicalgia [M54.2] 05/13/2009 12/23/2015 Osteoarthritis of both knees [M17.0] Multinodular goiter [E04.2] Syncope and collapse [R55] 04/30/2014 12/23/2015 History of knee replacement, total [Z96.659] 12/23/2015 Ageusia [R43.2] 02/23/2016 05/22/2017 Glossitis [K14.0] 02/23/2016 05/22/2017 Mild intermittent asthma without complication [*03/16/2016 Paroxysmal supraventricular tachycardia (HCC) [* Nausea [R11.0] 03/20/2018 04/29/2019 Hernia of anterior abdominal wall [K43.9] 04/18/2020 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] 04/18/2020 BPPV (benign paroxysmal positional vertigo), un*04/22/2020 Itching [L29.9] 07/27/2020 Orthostatic syncope [I95.1] 07/27/2020 RLS (restless legs syndrome) [G25.81] Asthma [J45.909] Benzodiazepine dependence (HCC) [F13.20] 05/29/2023 Anxiety [F41.9] 01/01/2024 Diagnosed: 01/01/2024 Chronic ethmoidal sinusitis [J32.2] 01/01/2024 Diagnosed: 01/01/2024 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*05/27/2012 Diagnosed: 01/01/2024 Disorder of bursae of shoulder region [M71.9] 01/24/2012 Diagnosed: 01/01/2024 Encounter for pre-operative examination [Z01.81*01/01/2024 Diagnosed: 01/01/2024 Family history of malignant neoplasm of colon [*10/08/2023 Diagnosed: 01/01/2024 History of appendectomy [Z90.49] 01/01/2024 Diagnosed: 01/01/2024 Hernia [K46.9] 01/01/2024 Diagnosed: 01/01/2024 History of partial surgical removal of colon [Z*10/08/2023 Diagnosed: 01/01/2024 Low back pain [M54.50] 09/18/2011 Diagnosed: 01/01/2024 Lumbosacral spondylosis without myelopathy [M47*11/01/2011 Diagnosed: 01/01/2024 Neurological deficit present [R29.818] 01/01/2024 Diagnosed: 01/01/2024 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] 07/20/2014 (more content not included)... Normal [address] 02-10-2025 29 Addendum created 11/25 1333 by Devin Ehsan Azucena, COMPUTER SYSTEM SPECIALIST - TEST DESIGN ENGINEER Clinical Note Signed Normal [facility] T4 Free SerPl-mCncon 01-26- 025 Free T4 [Mass/Vol] 1.5 ng/dL Normal 0.9-1.7 [facility] Comment on above: Order Comment: Pearl [place] Type: BLOOD SPECIMENOrdering Facility: [facility] Address: [address] [place] [address] [place] [address] Performed By: #### 3 024-7, 3016-3 ####[facility]ationsJ[facility] LABORATORYCLIA [id number] [place] [id number] [place] TSH SerPl-aCncon 01-26-2025 TSH Qn 0.871 m[IU]/L Normal 0.270-4.200 [facility] Comment on above: Order Comment: Pearl [place] Type: BLOOD SPECIMENOrdering Facility: [facility] Address: [address] [place] [address] [place] [address] Performed By: #### 3 024-7, 3016-3 ####[facility]ationsJ[facility] LABORATORYCLIA [id number] [address] [place] CNPNon 01-21-2025 CNPN Telephone (4CQ) SACHI GRACE ([id number]) 1935 F NFR Date Time Provider Department 01/21/25 ANITRA MANCERA 4CQ During your visit today, we recorded the following information about you: Halima Hernandez 01/21/2025 4:10 PM Signed Patient is calling stating she seen [facility] and they are stating patient is to call PCP office for additional testing and they was to fax notes to our office. Please advise patient Zulma Benites MA 01/21/2025 4:55 PM Signed Office did not receive records from GI Zulma Benites MA January 21, 2025 4:55 PM Alix Garcia, YARY 01/22/2025 4:19 PM Signed Pt called in asking about MRI results. I let her know providers office has not received them yet. She states they told her they have sent them twice. She states she will call them to send them again. Zulma Benites MA 01/22/2025 5:12 PM Signed MRI results scanned Anitra Mancera APRN.RUSTY 01/22/2025 5:25 PM Signed MRI results reviewed with her. Concerning cyst and solid- possible cancer. [facility] referring her to somewhere in [place]. Appreciates call. Allergies As of Date: 01/21/2025 Noted Allergy Reaction VICODIN (HYDROCODONE-ACETAMINOPHE*01/2013 8 - GI Upset BUSPIRONE 04/21/2024 5 - Intolerance Comments: Anxious, jittery, felt worse, RLS worse. COCAMIDOPROPYL BETAINE 07/27/2020 2 - Rash Comments: itching, rash CODEINE 03/19/2007 8 - GI Upset PANTOPRAZOLE 12/18/2024 8 - GI Upset Comments: Bloating, constipation, increase in abd pain PERCOCET (OXYCODONE-ACETAMINOPHEN)04/02 8 - GI Upset SULFA (SULFONAMIDE ANTIBIOTICS) 03/19/2007 4 - Hives 7 - Swelling Comments: lips swelled up TETRACYCLINE 04/29/2019 8 - GI Upset Date Reviewed: 12/18/2024 Reviewed by: Zulma Benites MA - Fully Assessed Reason for Visit: Patient Question [3867] Prescriptions as of 01/22/2025 - Vit B Complex 100 Combo No.2 (B-100 COMPLEX) 100 mg TbER Take 1 tablet by mouth once daily. - levothyroxine (SYNTHROID) 50 mcg tablet Take 50 mcg by mouth. Take 50 mcg on Saturday, and 75 mcg all other days of the week, per ENDO - MEDICATION, NON-DATABASE CBD oil - fluticasone propionate (ARMONAIR DIGIHALER) 232 mcg/actuation inhaler Inhale 1 Puff as instructed two times a day. - levalbuterol tartrate HFA 45 mcg/actuation inhaler Inhale 1-2 Puffs as instructed every 4 hours as needed for wheezing/shortness of breath. - Cholecalciferol, Vitamin D3, (VITAMIN D) 25 mcg (1,000 unit) cap Take 1,000 Units by mouth once daily. - clonazePAM (KLONOPIN) 0.5 mg tablet Take 0.5 mg by mouth at bedtime as needed. Dr Dupree - vit A,C,B-Qvbj-Ezlkdc (PRESERVISION AREDS) 7,160-113-100 qtyt-gc-wedf tab Take by mouth. - ACETAMINOPHEN 500 MG TAB Take one(1) tablet every four(4) to six(6) hours as needed for pain. Problem List As Of Date 01/21/2025 Noted Resolved Unspecified constipation [K59.00] 04/30/2006 03/16/2016 PEPTIC ULCER NOS [K27.9] 03/19/2007 GENERALIZED ANXIETY DIS [F41.1] Generalized osteoarthrosis, unspecified site [M* 12/23/2015 Myalgia and myositis [[id number]] 05/22/2017 Diverticulosis of large intestine [K57.30] Disorder of bone and cartilage [M89.9, M94.9] Hypothyroidism [E03.9] Hyperlipidemia LDL goal <130 [E78.5] Gout, unspecified [M10.9] 12/23/2015 PEPTIC ULCER NOS [K27.9] 03/19/2007 PAROX ATRIAL TACHYCARDIA [I47.10] 03/19/2007 Disturbances of sensation of smell and taste [R*02/13/2008 05/22/2017 Chronic maxillary sinusitis [J32.0] 02/13/2008 05/22/2017 Meniere's disease, unspecified [H81.09] 05/20/2008 03/16/2016 Dizziness and giddiness [R42] 05/13/2009 12/23/2015 Cervicalgia [M54.2] 05/13/2009 12/23/2015 Osteoarthritis of both knees [M17.0] Multinodular goiter [E04.2] Syncope and collapse [R55] 04/30/2014 12/23/2015 History of knee replacement, total [Z96.659] 12/23/2015 Ageusia [R43.2] 02/23/2016 05/22/2017 Glossitis [K14.0] 02/23/2016 05/22/2017 Mild intermittent asthma without complication [*03/16/2016 Paroxysmal supraventricular tachycardia (HCC) [* Nausea [R11.0] 03/20/2018 04/29/2019 Hernia of anterior abdominal wall [K43.9] 04/18/2020 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] 04/18/2020 BPPV (benign paroxysmal positional vertigo), un*04/22/2020 Itching [L29.9] 07/27/2020 Orthostatic syncope [I95.1] 07/27/2020 RLS (restless legs syndrome) [G25.81] Asthma [J45.909] Benzodiazepine dependence (HCC) [F13.20] 05/29/2023 Anxiety [F41.9] 01/01/2024 Diagnosed: 01/01/2024 Chronic ethmoidal sinusitis [J32.2] 01/01/2024 Diagnosed: 01/01/2024 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*05/27/2012 Diagnosed: 01/01/2024 Disorder of bursae of shoulder region [M71.9] 01/24/2012 Diagnosed: 01/01/2024 Encounter for pre-operative examination [Z01.81*01/01/2024 Diagnosed: 01/01/2024 Family history of malignant neoplasm of colon [*10/08/2023 Diagnosed: 01/01/2024 History of appendect (more content not included)... Normal [facility] MRI ABDOMEN WO/W IVCONon MRI ABDOMEN WO/W IVCON * * *Final Report* * * DATE OF EXAM: Jan 15 2025 9:35AM [facility] 0689 - MRI ABDOMEN WO/W IVCON / PROCEDURE REASON: k. 86.2 cyst of pancreas * * * * Physician Interpretation * * * * MRI ABDOMEN WITHOUT AND WITH IV CONTRAST , 3D REFORMATTED IMAGES CLINICAL HISTORY: Pancreatic cystic lesion TECHNIQUE: Magnet: 1.5T scanner. Multiplanar MRI of the abdomen with multiple sequences, including both pre- and post-contrast imaging. Additional MR cholangiopancreatography sequences were performed. Image post-processing {Maximum intensity Projection (MIP)} images were created at an off-line workstation by the interpreting physician or with concurrent physician supervision, with images created, reviewed and archived. Contrast: Intravenous: 6 ml of Elucirem COMPARISON: MRI 06/26/2024 RESULT: Liver: Normal morphology. No hepatic steatosis. Small T2 hyperintense lesion in segment 4 measuring 0.8 cm (4:23) with progressive enhancement, most compatible with a hemangioma. It is unchanged from prior. Biliary: No intrahepatic or extrahepatic bile duct dilation. No biliary filling defect. Mildly dilated gallbladder, without cholelithiasis or findings of acute cholecystitis. Spleen: No mass. No splenomegaly. Pancreas: No solid and cystic mass with restricted diffusion and progressive enhancement in the pancreatic head measuring approximately 3.4 x 3 cm (4:39), highly suspicious for pancreatic ductal adenocarcinoma. The mass has a 360 degrees interface with severe narrowing of the portal mesenteric confluence and SMV. It also has a likely 180 degrees interface with the SMA. Because an approximately 90 degrees interface with the abdominal aorta. It causes pancreatic ductal obstruction with upstream dilation. Adrenals: No mass. Kidneys: No solid or cystic mass. No hydronephrosis. GI: No dilated bowel or wall thickening along imaged segments. Lymph nodes: No abdominal lymphadenopathy. Mesentery / Peritoneum / Retroperitoneum: No ascites or mass. Vasculature: The celiac axis and SMA are patent. Tumor vascular interfaces as above. Abdominal aortic atherosclerosis without aneurysm. Bones/Soft Tissues: Unchanged vertebral body hemangioma. Lower chest: Unremarkable. IMPRESSION: 1. Cystic and solid mass in the pancreatic head with diffusion restriction and progressive enhancement, highly suspicious for pancreatic ductal adenocarcinoma. Extensive tumor vascular interfaces as above, with severe narrowing of the portal mesenteric confluence and SMV. 2. No metastatic disease in the abdomen. Horse Racer: [facility] Transcribe Date/Time: Jan 21 2025 10:12A Dictated by : SILVIO ROBLES MD This examination was interpreted and the report reviewed and electronically signed by: SILVIO ROBLES MD on Jan 21 2025 10:33AM EST [id number] Normal [facility] 01-14-2025 ANA CRISTINA Telephone (FAMPWS) SACHI GRACE ([id number]) 1935 F NFR Date Time Provider Department 01/14/25 ANITRA MANCERA During your visit today, we recorded the following information about you: Bridgette Shaw 01/14/2025 8:50 AM Signed Patient calling for status update on MRI being ordered. Please contact patient to advise. Sharon Stoddard 01/14/2025 11:23 AM Signed Spoke with patient and scheduled MRI for 01/15/25 at 9:00 AM. Sharon Stoddard Allergies As of Date: 01/14/2025 Noted Allergy Reaction VICODIN (HYDROCODONE-ACETAMINOPHE*01/2013 8 - GI Upset BUSPIRONE 04/21/2024 5 - Intolerance Comments: Anxious, jittery, felt worse, RLS worse. COCAMIDOPROPYL BETAINE 07/27/2020 2 - Rash Comments: itching, rash CODEINE 03/19/2007 8 - GI Upset PANTOPRAZOLE 12/18/2024 8 - GI Upset Comments: Bloating, constipation, increase in abd pain PERCOCET (OXYCODONE-ACETAMINOPHEN)04/02 8 - GI Upset SULFA (SULFONAMIDE ANTIBIOTICS) 03/19/2007 4 - Hives 7 - Swelling Comments: lips swelled up TETRACYCLINE 04/29/2019 8 - GI Upset Date Reviewed: 12/18/2024 Reviewed by: Zulma Benites MA - Fully Assessed Reason for Visit: Orders [681] Cmt: MRI Prescriptions as of 01/14/2025 - rOPINIRole (REQUIP) 0.5 mg tablet Take 1.5 tablets by mouth daily at bedtime. - Vit B Complex 100 Combo No.2 (B-100 COMPLEX) 100 mg TbER Take 1 tablet by mouth once daily. - levothyroxine (SYNTHROID) 50 mcg tablet Take 50 mcg by mouth. Take 50 mcg on Saturday, and 75 mcg all other days of the week, per ENDO - MEDICATION, NON-DATABASE CBD oil - fluticasone propionate (ARMONAIR DIGIHALER) 232 mcg/actuation inhaler Inhale 1 Puff as instructed two times a day. - levalbuterol tartrate HFA 45 mcg/actuation inhaler Inhale 1-2 Puffs as instructed every 4 hours as needed for wheezing/shortness of breath. - Cholecalciferol, Vitamin D3, (VITAMIN D) 25 mcg (1,000 unit) cap Take 1,000 Units by mouth once daily. - clonazePAM (KLONOPIN) 0.5 mg tablet Take 0.5 mg by mouth at bedtime as needed. Dr Dupree - vit A,C,P-Sxbe-Jdghdv (PRESERVISION AREDS) 7,160-113-100 rzzp-ud-apnw tab Take by mouth. - ACETAMINOPHEN 500 MG TAB Take one(1) tablet every four(4) to six(6) hours as needed for pain. Problem List As Of Date 01/14/2025 Noted Resolved Unspecified constipation [K59.00] 04/30/2006 03/16/2016 PEPTIC ULCER NOS [K27.9] 03/19/2007 GENERALIZED ANXIETY DIS [F41.1] Generalized osteoarthrosis, unspecified site [M* 12/23/2015 Myalgia and myositis [[id number]] 05/22/2017 Diverticulosis of large intestine [K57.30] Disorder of bone and cartilage [M89.9, M94.9] Hypothyroidism [E03.9] Hyperlipidemia LDL goal <130 [E78.5] Gout, unspecified [M10.9] 12/23/2015 PEPTIC ULCER NOS [K27.9] 03/19/2007 PAROX ATRIAL TACHYCARDIA [I47.10] 03/19/2007 Disturbances of sensation of smell and taste [R*02/13/2008 05/22/2017 Chronic maxillary sinusitis [J32.0] 02/13/2008 05/22/2017 Meniere's disease, unspecified [H81.09] 05/20/2008 03/16/2016 Dizziness and giddiness [R42] 05/13/2009 12/23/2015 Cervicalgia [M54.2] 05/13/2009 12/23/2015 Osteoarthritis of both knees [M17.0] Multinodular goiter [E04.2] Syncope and collapse [R55] 04/30/2014 12/23/2015 History of knee replacement, total [Z96.659] 12/23/2015 Ageusia [R43.2] 02/23/2016 05/22/2017 Glossitis [K14.0] 02/23/2016 05/22/2017 Mild intermittent asthma without complication [*03/16/2016 Paroxysmal supraventricular tachycardia (HCC) [* Nausea [R11.0] 03/20/2018 04/29/2019 Hernia of anterior abdominal wall [K43.9] 04/18/2020 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] 04/18/2020 BPPV (benign paroxysmal positional vertigo), un*04/22/2020 Itching [L29.9] 07/27/2020 Orthostatic syncope [I95.1] 07/27/2020 RLS (restless legs syndrome) [G25.81] Asthma [J45.909] Benzodiazepine dependence (HCC) [F13.20] 05/29/2023 Anxiety [F41.9] 01/01/2024 Diagnosed: 01/01/2024 Chronic ethmoidal sinusitis [J32.2] 01/01/2024 Diagnosed: 01/01/2024 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*05/27/2012 Diagnosed: 01/01/2024 Disorder of bursae of shoulder region [M71.9] 01/24/2012 Diagnosed: 01/01/2024 Encounter for pre-operative examination [Z01.81*01/01/2024 Diagnosed: 01/01/2024 Family history of malignant neoplasm of colon [*10/08/2023 Diagnosed: 01/01/2024 History of appendectomy [Z90.49] 01/01/2024 Diagnosed: 01/01/2024 Hernia [K46.9] 01/01/2024 Diagnosed: 01/01/2024 History of partial surgical removal of colon [Z*10/08/2023 Diagnosed: 01/01/2024 Low back pain [M54.50] 09/18/2011 Diagnosed: 01/01/2024 Lumbosacral spondylosis without myelopathy [M47*11/01/2011 Diagnosed: 01/01/2024 Neurological deficit present [R29.818] 01/01/2024 Diagnosed: 01/01/2024 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] 07/20/2014 Diagnosed: 01/01/2024 Palpitations [R00.2] 01/01/2024 Diagnosed: 01/01/2024 Sprain of (more content not included)... Normal [facility] Gastroenterology Visit Repor ton 01-01-2025 Gastroenterology Visit Report [facility] [address] [place] [address] OFFICE VISIT Date of Service: 01/01/25 MR#: [id number] Acct: [id number] Name: SACHI GRACE Rep #: [id number] : 1935 Provider: JOSE Wesley Age/Sex: 89/F [place] [facility] [place] Status: Signed Intake Vital Signs 12/10/24 19:34 Height 5 ft 1 in Intake Visit Reasons: Pancreatic cyst Chief Complaint: bloating Allergies cocamidopropyl betaine Allergy (Intermediate, Verified 01/01/25 12:45) Rash Sulfa (Sulfonamide Antibiotics) Allergy (Verified 01/01/25 12:45) Swelling Environmental Allergies: Uncoded (dust) Adverse Reaction (Severe, Verified 01/01/25 12:45) NEEDS FOLLOW-UP mold Adverse Reaction (Severe, Verified 01/01/25 12:45) NEEDS FOLLOW-UP metoprolol Adverse Reaction (Intermediate, Verified 01/01/25 12:45) I feel awful codeine Adverse Reaction (Verified 01/01/25 12:45) Nausea diphenhydramine (From Benadryl) Adverse Reaction (Verified 01/01/25 12:45) Nausea hydrocodone bitartrate (From Vicodin) Adverse Reaction (Verified 01/01/25 12:45) Nausea oxycodone HCl (From Percocet) Adverse Reaction (Verified 01/01/25 12:45) Nausea tetracycline Adverse Reaction (Verified 01/01/25 12:45) Nausea/Vom/Diarrhea Medications ???Medication ???Instructions ???Recorded ???Confirmed ???Type albuterol sulfate 90 mcg/actuation 1 puff inhalation Q4H PRN PRN 01/01/25 History aerosol inhaler Wheezing vit C 250 mg-vit E 90 mg-zinc 40 1 tab PO BID 11/22/17 01/01/25 His tory mg-copper 1 tq-sjjzmn-myhztd capsule (PreserVision AREDS-2) polyethylene glycol 3350 17 17 g PO QDAY PRN Constipation 03/0 01/1901/01/25 History gram/dose oral powder (Miralax) acetaminophen 325 mg tablet 500 mg (1.5385 x 325 mg) PO Q4H 01/01/25 Rx PRN PRN Mild-Moderate Pain (1-5/10) levothyroxine 50 mcg tablet 50 mcg PO DAILY 09/22/20 01/01/25 History ropinirole 0.5 mg tablet 0.75 mg PO DAILY 11/11/23 01/01/25 History nortriptyline 10 mg capsule 10 mg PO BID #120 caps 09/24/24 Rx CBD Oral (INFORMATIONAL USE 11/10/24 01/01/25 History ONLY-PT USES ORAL CBD) clonazepam 0.5 mg tablet 0.5 mg PO QHS #30 tabs 11/10/24 Rx gabapentin 100 mg capsule 100 mg PO TID 11/10/24 01/01/25 Hi story alprazolam 0.5 mg tablet 0.5 mg PO ONCE #1 TAB 01/01/25 Rx Have you fallen in the past year?: No PFSH Medical History Wears partial dentures Fibromyalgia Arthritis History of ulceration History of diverticulitis Panic disorder Medication monitoring encounter Ventral incisional hernia without obstruction or gangrene Decreased sense of taste Chronic sphenoidal sinusitis Chronic ethmoidal sinusitis Chronic maxillary sinusitis Family history of colon cancer in father Pre-op evaluation Hyperlipidemia Syncope and collapse Mixed hyperlipidemia PSVT (paroxysmal supraventricular tachycardia) Chest discomfort Palpitations Hypothyroidism Asthma Surgical History S/P ventral herniorrhaphy History of bilateral knee replacement Hx of rotator cuff surgery S/P carpal tunnel release S/P partial colectomy History of loop recorder H/O prior ablation treatment History of appendectomy History of tonsillectomy Family History Father Colon cancer CAD (coronary artery disease) Mother CAD (coronary artery disease) Sister CVA (cerebral vascular accident) Brother Cancer Lung cancer Social History household members: spouse Smoking Status: Never smoker alcohol intake: never substance use type: does not use caffeine: No what type of physical activity do you participate in: bicycling frequency: daily duration: 15-30 minutes/day seatbelt use: always do you feel safe at home: Yes HPI HPI Chief Complaint: bloating Details: SACHI GRACE, is a 89 F who presents to the office today for establishment with [facility] 1 w/ complaints of aching upper abd pain. Recently finished tx for H.pylori infection. Endorses some constipation. 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 Pt is aware and prior MRI showed this as well. GI cocktail given and discharged. CT abd/pelvis 12.10.24; 1. Pancreatic atrophy and pancreatic ductal dilatation. In the body of the pancreas, there is a 2.8 cm cystic lesion with ill-defined margins. ACR White Paper guidelines (Joe, et al. JACR 2017; 14(7):911-923) suggest endoscopic ultrasound with fine needle aspiration and surgical consultation. 2. Moderate to large amount of colorectal stool retention. 3. Centrilobular emphys (more content not included)... Normal [facility] 12[facility]30-2024 [facility] (F[facility]) SACHI GRACE ([id number]) 1935 F NFR Date Time Provider Department 12/30/24 9:45 AM [place] NURSE FAMPWS During your visit today, we recorded the following information about you: Arcelia Vu LPN 12/30/2024 10:18 AM Signed Patient presented for H. Pylori Breath testing per Dayna Mancera CNP. Obtained baseline sample at 9:56am. Patient then drank Pranactin-Citric solution. Waited full 15 minutes and obtained second sample at 10:16am. Patient tolerated testing well with no problems. LOT # [id number] EXP 05/31/2025 Arcelia Vu LPN Referring Provider: SELF [200] Allergies As of Date: 12/30/2024 Noted Allergy Reaction VICODIN (HYDROCODONE-ACETAMINOPHE*01/2013 8 - GI Upset BUSPIRONE 04/21/2024 5 - Intolerance Comments: Anxious, jittery, felt worse, RLS worse. COCAMIDOPROPYL BETAINE 07/27/2020 2 - Rash Comments: itching, rash CODEINE 03/19/2007 8 - GI Upset PANTOPRAZOLE 12/18/2024 8 - GI Upset Comments: Bloating, constipation, increase in abd pain PERCOCET (OXYCODONE-ACETAMINOPHEN)04/02 8 - GI Upset SULFA (SULFONAMIDE ANTIBIOTICS) 03/19/2007 4 - Hives 7 - Swelling Comments: lips swelled up TETRACYCLINE 04/29/2019 8 - GI Upset Date Reviewed: 12/18/2024 Reviewed by: Zulma Benites MA - Fully Assessed Reason for Visit: H. Pylori Breath Test [477] Visit Diagnosis:H. pylori infection [A04.8] Order(s):BREATH TEST FOR HELICOBACTER PYLORI [SQHPYLBR] Order #: [id number]. #:[id number] Prescriptions as of 12/30/2024 - rOPINIRole (REQUIP) 0.5 mg tablet Take 1.5 tablets by mouth daily at bedtime. - Vit B Complex 100 Combo No.2 (B-100 COMPLEX) 100 mg TbER Take 1 tablet by mouth once daily. - levothyroxine (SYNTHROID) 50 mcg tablet Take 50 mcg by mouth. Take 50 mcg on Saturday, and 75 mcg all other days of the week, per ENDO - MEDICATION, NON-DATABASE CBD oil - fluticasone propionate (ARMONAIR DIGIHALER) 232 mcg/actuation inhaler Inhale 1 Puff as instructed two times a day. - levalbuterol tartrate HFA 45 mcg/actuation inhaler Inhale 1-2 Puffs as instructed every 4 hours as needed for wheezing/shortness of breath. - Cholecalciferol, Vitamin D3, (VITAMIN D) 25 mcg (1,000 unit) cap Take 1,000 Units by mouth once daily. - clonazePAM (KLONOPIN) 0.5 mg tablet Take 0.5 mg by mouth at bedtime as needed. Dr Dupree - vit A,C,M-Jzpg-Wlmvzw (PRESERVISION AREDS) 7,160-113-100 afga-xi-kkfj tab Take by mouth. - ACETAMINOPHEN 500 MG TAB Take one(1) tablet every four(4) to six(6) hours as needed for pain. Problem List As Of Date 12/30/2024 Noted Resolved Unspecified constipation [K59.00] 04/30/2006 03/16/2016 PEPTIC ULCER NOS [K27.9] 03/19/2007 GENERALIZED ANXIETY DIS [F41.1] Generalized osteoarthrosis, unspecified site [M* 12/23/2015 Myalgia and myositis [[id number]] 05/22/2017 Diverticulosis of large intestine [K57.30] Disorder of bone and cartilage [M89.9, M94.9] Hypothyroidism [E03.9] Hyperlipidemia LDL goal <130 [E78.5] Gout, unspecified [M10.9] 12/23/2015 PEPTIC ULCER NOS [K27.9] 03/19/2007 PAROX ATRIAL TACHYCARDIA [I47.10] 03/19/2007 Disturbances of sensation of smell and taste [R*02/13/2008 05/22/2017 Chronic maxillary sinusitis [J32.0] 02/13/2008 05/22/2017 Meniere's disease, unspecified [H81.09] 05/20/2008 03/16/2016 Dizziness and giddiness [R42] 05/13/2009 12/23/2015 Cervicalgia [M54.2] 05/13/2009 12/23/2015 Osteoarthritis of both knees [M17.0] Multinodular goiter [E04.2] Syncope and collapse [R55] 04/30/2014 12/23/2015 History of knee replacement, total [Z96.659] 12/23/2015 Ageusia [R43.2] 02/23/2016 05/22/2017 Glossitis [K14.0] 02/23/2016 05/22/2017 Mild intermittent asthma without complication [*03/16/2016 Paroxysmal supraventricular tachycardia (HCC) [* Nausea [R11.0] 03/20/2018 04/29/2019 Hernia of anterior abdominal wall [K43.9] 04/18/2020 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] 04/18/2020 BPPV (benign paroxysmal positional vertigo), un*04/22/2020 Itching [L29.9] 07/27/2020 Orthostatic syncope [I95.1] 07/27/2020 RLS (restless legs syndrome) [G25.81] Asthma [J45.909] Benzodiazepine dependence (HCC) [F13.20] 05/29/2023 Anxiety [F41.9] 01/01/2024 Diagnosed: 01/01/2024 Chronic ethmoidal sinusitis [J32.2] 01/01/2024 Diagnosed: 01/01/2024 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*05/27/2012 Diagnosed: 01/01/2024 Disorder of bursae of shoulder region [M71.9] 01/24/2012 Diagnosed: 01/01/2024 Encounter for pre-operative examination [Z01.81*01/01/2024 Diagnosed: 01/01/2024 Family history of malignant neoplasm of colon [*10/08/2023 Diagnosed: 01/01/2024 History of appendectomy [Z90.49] 01/01/2024 Diagnosed: 01/01/2024 Hernia [K46.9] 01/01/2024 Diagnosed: 01/01/2024 History of partial surgical removal of colon [Z*10/08/2023 Diagnosed: 01/01/2024 Low back pain [M54.50] 09/18/2011 Diagnosed: 01/01/2024 Lumbosacr (more content not included)... Normal [facility] Urea Breath Test-aCncon 12-03 CO2 post dose urea Qn (Exhl gas) Negative Normal Negative [facility] Comment on above: Order Comment: Speci men Type: BREATH Ordering Facility: [facility] Address: [address] [place] [address] Result Comment: Urea Breath Test is used as an aid in diagnosis of current infection with Helicobacter pylori. False positive results may occur in infection with Helicobacter heilmannii or contamination with other urease-producing bacteria. False negative results may be seen in patients with hypochlorhydria. Clinical correlation is required. Performed By: #### 2 [id number] #### [facility] CLIA [id number] [address] [place] [address] [place] 12-22-20[facility] SACHI GRACE ([id number]) 1935 F NFR Date Time Provider Department 12/22/24 ANITRA MANCERA [facility] During your visit today, we recorded the following information about you: Skylar Spears LPN 12/22/2024 2:12 PM Signed Pt called and asked to have referral and supporting information be faxed to Dr. Rm at [facility]. {Pt has apt on 01-01-25. Done. Skylar Spears LPN Allergies As of Date: 12/22/2024 Noted Allergy Reaction VICODIN (HYDROCODONE-ACETAMINOPHE*01/2013 8 - GI Upset BUSPIRONE 04/21/2024 5 - Intolerance Comments: Anxious, jittery, felt worse, RLS worse. COCAMIDOPROPYL BETAINE 07/27/2020 2 - Rash Comments: itching, rash CODEINE 03/19/2007 8 - GI Upset PANTOPRAZOLE 12/18/2024 8 - GI Upset Comments: Bloating, constipation, increase in abd pain PERCOCET (OXYCODONE-ACETAMINOPHEN)04/02 8 - GI Upset SULFA (SULFONAMIDE ANTIBIOTICS) 03/19/2007 4 - Hives 7 - Swelling Comments: lips swelled up TETRACYCLINE 04/29/2019 8 - GI Upset Date Reviewed: 12/18/2024 Reviewed by: Zulma Benites MA - Fully Assessed Reason for Visit: fax referral to [facility] Dr. Rm [Other] Prescriptions as of 12/22/2024 - ondansetron (ZOFRAN) 4 mg tablet Take 1 tablet by mouth every 8 hours as needed for nausea/vomiting. - rOPINIRole (REQUIP) 0.5 mg tablet Take 1.5 tablets by mouth daily at bedtime. - Vit B Complex 100 Combo No.2 (B-100 COMPLEX) 100 mg TbER Take 1 tablet by mouth once daily. - levothyroxine (SYNTHROID) 50 mcg tablet Take 50 mcg by mouth. Take 50 mcg on Saturday, and 75 mcg all other days of the week, per ENDO - MEDICATION, NON-DATABASE CBD oil - fluticasone propionate (ARMONAIR DIGIHALER) 232 mcg/actuation inhaler Inhale 1 Puff as instructed two times a day. - levalbuterol tartrate HFA 45 mcg/actuation inhaler Inhale 1-2 Puffs as instructed every 4 hours as needed for wheezing/shortness of breath. - Cholecalciferol, Vitamin D3, (VITAMIN D) 25 mcg (1,000 unit) cap Take 1,000 Units by mouth once daily. - clonazePAM (KLONOPIN) 0.5 mg tablet Take 0.5 mg by mouth at bedtime as needed. Dr Dupree - vit A,C,Q-Hnrt-Iraqlw (PRESERVISION AREDS) 7,160-113-100 gwac-wf-jqpg tab Take by mouth. - ACETAMINOPHEN 500 MG TAB Take one(1) tablet every four(4) to six(6) hours as needed for pain. Problem List As Of Date 12/22/2024 Noted Resolved Unspecified constipation [K59.00] 04/30/2006 03/16/2016 PEPTIC ULCER NOS [K27.9] 03/19/2007 GENERALIZED ANXIETY DIS [F41.1] Generalized osteoarthrosis, unspecified site [M* 12/23/2015 Myalgia and myositis [[id number]] 05/22/2017 Diverticulosis of large intestine [K57.30] Disorder of bone and cartilage [M89.9, M94.9] Hypothyroidism [E03.9] Hyperlipidemia LDL goal <130 [E78.5] Gout, unspecified [M10.9] 12/23/2015 PEPTIC ULCER NOS [K27.9] 03/19/2007 PAROX ATRIAL TACHYCARDIA [I47.10] 03/19/2007 Disturbances of sensation of smell and taste [R*02/13/2008 05/22/2017 Chronic maxillary sinusitis [J32.0] 02/13/2008 05/22/2017 Meniere's disease, unspecified [H81.09] 05/20/2008 03/16/2016 Dizziness and giddiness [R42] 05/13/2009 12/23/2015 Cervicalgia [M54.2] 05/13/2009 12/23/2015 Osteoarthritis of both knees [M17.0] Multinodular goiter [E04.2] Syncope and collapse [R55] 04/30/2014 12/23/2015 History of knee replacement, total [Z96.659] 12/23/2015 Ageusia [R43.2] 02/23/2016 05/22/2017 Glossitis [K14.0] 02/23/2016 05/22/2017 Mild intermittent asthma without complication [*03/16/2016 Paroxysmal supraventricular tachycardia (HCC) [* Nausea [R11.0] 03/20/2018 04/29/2019 Hernia of anterior abdominal wall [K43.9] 04/18/2020 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] 04/18/2020 BPPV (benign paroxysmal positional vertigo), un*04/22/2020 Itching [L29.9] 07/27/2020 Orthostatic syncope [I95.1] 07/27/2020 RLS (restless legs syndrome) [G25.81] Asthma [J45.909] Benzodiazepine dependence (HCC) [F13.20] 05/29/2023 Anxiety [F41.9] 01/01/2024 Diagnosed: 01/01/2024 Chronic ethmoidal sinusitis [J32.2] 01/01/2024 Diagnosed: 01/01/2024 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*05/27/2012 Diagnosed: 01/01/2024 Disorder of bursae of shoulder region [M71.9] 01/24/2012 Diagnosed: 01/01/2024 Encounter for pre-operative examination [Z01.81*01/01/2024 Diagnosed: 01/01/2024 Family history of malignant neoplasm of colon [*10/08/2023 Diagnosed: 01/01/2024 History of appendectomy [Z90.49] 01/01/2024 Diagnosed: 01/01/2024 Hernia [K46.9] 01/01/2024 Diagnosed: 01/01/2024 History of partial surgical removal of colon [Z*10/08/2023 Diagnosed: 01/01/2024 Low back pain [M54.50] 09/18/2011 Diagnosed: 01/01/2024 Lumbosacral spondylosis without myelopathy [M47*11/01/2011 Diagnosed: 01/01/2024 Neurological deficit present [R29.818] 01/01/2024 Diagnosed: 01/01/2024 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] 07/20/2014 Diagnosed: (more content not included)... Normal [facility] CNPNon 12-21-2024 CNPN Telephone (FAMPWS) SACHI GRACE ([id number]) 1935 F NFR Date Time Provider Department 12/21/24 [facility] During your visit today, we recorded the following information about you: Marcia Sue RN 12/21/2024 11:39 AM Signed Patient calls to request an appointment with Dr. Flores to review her abdominal bloating. Patient has tried Gas-X as recommended at last appointment with no relief. Patient reports that abdomen remains bloated and hard in the middle and above the navel. Bowels are moving daily and appetite is good. No change in symptoms patient just doesn't feel like she is receiving any treatment. Reviewed previous TE and OV notes and patient's consult to general surgery is scheduled February 15, 2025 and patient is seeing gastro February 09, 2025. Offered several appointments to patient and patient declined all appointments until January 12, [address] Flores. Patient requested to be added to the wait list despite declining numerous appointments offered. Placed on wait list per request. Patient to call back if any questions or concerns until then. Marcia Sue RN Allergies As of Date: 12/21/2024 Noted Allergy Reaction VICODIN (HYDROCODONE-ACETAMINOPHE*01/2013 8 - GI Upset BUSPIRONE 04/21/2024 5 - Intolerance Comments: Anxious, jittery, felt worse, RLS worse. COCAMIDOPROPYL BETAINE 07/27/2020 2 - Rash Comments: itching, rash CODEINE 03/19/2007 8 - GI Upset PANTOPRAZOLE 12/18/2024 8 - GI Upset Comments: Bloating, constipation, increase in abd pain PERCOCET (OXYCODONE-ACETAMINOPHEN)04/02 8 - GI Upset SULFA (SULFONAMIDE ANTIBIOTICS) 03/19/2007 4 - Hives 7 - Swelling Comments: lips swelled up TETRACYCLINE 04/29/2019 8 - GI Upset Date Reviewed: 12/18/2024 Reviewed by: Zulma Benites MA - Fully Assessed Reason for Visit: Patient Update [1234] Prescriptions as of 12/21/2024 - ondansetron (ZOFRAN) 4 mg tablet Take 1 tablet by mouth every 8 hours as needed for nausea/vomiting. - rOPINIRole (REQUIP) 0.5 mg tablet Take 1.5 tablets by mouth daily at bedtime. - Vit B Complex 100 Combo No.2 (B-100 COMPLEX) 100 mg TbER Take 1 tablet by mouth once daily. - levothyroxine (SYNTHROID) 50 mcg tablet Take 50 mcg by mouth. Take 50 mcg on Saturday, and 75 mcg all other days of the week, per ENDO - MEDICATION, NON-DATABASE CBD oil - fluticasone propionate (ARMONAIR DIGIHALER) 232 mcg/actuation inhaler Inhale 1 Puff as instructed two times a day. - levalbuterol tartrate HFA 45 mcg/actuation inhaler Inhale 1-2 Puffs as instructed every 4 hours as needed for wheezing/shortness of breath. - Cholecalciferol, Vitamin D3, (VITAMIN D) 25 mcg (1,000 unit) cap Take 1,000 Units by mouth once daily. - clonazePAM (KLONOPIN) 0.5 mg tablet Take 0.5 mg by mouth at bedtime as needed. Dr Dupree - vit A,C,I-Jgka-Dtjwkt (PRESERVISION AREDS) 7,160-113-100 tbrb-sh-gamc tab Take by mouth. - ACETAMINOPHEN 500 MG TAB Take one(1) tablet every four(4) to six(6) hours as needed for pain. Problem List As Of Date 12/21/2024 Noted Resolved Unspecified constipation [K59.00] 04/30/2006 03/16/2016 PEPTIC ULCER NOS [K27.9] 03/19/2007 GENERALIZED ANXIETY DIS [F41.1] Generalized osteoarthrosis, unspecified site [M* 12/23/2015 Myalgia and myositis [[id number]] 05/22/2017 Diverticulosis of large intestine [K57.30] Disorder of bone and cartilage [M89.9, M94.9] Hypothyroidism [E03.9] Hyperlipidemia LDL goal <130 [E78.5] Gout, unspecified [M10.9] 12/23/2015 PEPTIC ULCER NOS [K27.9] 03/19/2007 PAROX ATRIAL TACHYCARDIA [I47.10] 03/19/2007 Disturbances of sensation of smell and taste [R*02/13/2008 05/22/2017 Chronic maxillary sinusitis [J32.0] 02/13/2008 05/22/2017 Meniere's disease, unspecified [H81.09] 05/20/2008 03/16/2016 Dizziness and giddiness [R42] 05/13/2009 12/23/2015 Cervicalgia [M54.2] 05/13/2009 12/23/2015 Osteoarthritis of both knees [M17.0] Multinodular goiter [E04.2] Syncope and collapse [R55] 04/30/2014 12/23/2015 History of knee replacement, total [Z96.659] 12/23/2015 Ageusia [R43.2] 02/23/2016 05/22/2017 Glossitis [K14.0] 02/23/2016 05/22/2017 Mild intermittent asthma without complication [*03/16/2016 Paroxysmal supraventricular tachycardia (HCC) [* Nausea [R11.0] 03/20/2018 04/29/2019 Hernia of anterior abdominal wall [K43.9] 04/18/2020 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] 04/18/2020 BPPV (benign paroxysmal positional vertigo), un*04/22/2020 Itching [L29.9] 07/27/2020 Orthostatic syncope [I95.1] 07/27/2020 RLS (restless legs syndrome) [G25.81] Asthma [J45.909] Benzodiazepine dependence (HCC) [F13.20] 05/29/2023 Anxiety [F41.9] 01/01/2024 Diagnosed: 01/01/2024 Chronic ethmoidal sinusitis [J32.2] 01/01/2024 Diagnosed: 01/01/2024 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*05/27/2012 Diagnosed: 01/01/2024 Disorder of bursae of shoulder region [M7 (more content not included)... Normal [facility] CNOVon 12-18-2024 CNOV Office Visit (FAMPWS ) SACHI GRACE ([id number]) 1935 F NFR Date Time Provider Department 12/18/24 9:40 AM ANITRA MANCERA FAMPWS During your visit today, we recorded the following information about you: Temperature Pulse Blood pressure Weight 98.2 degrees 79/minute 118/76 58.4 kg Anitra Mancera APRN.[employer] 12/18/2024 10:20 AM Signed This is a 89 year old female who presents today with: Patient presents with: Abdominal Pain: Bloating, pain, nausea HISTORY OF PRESENT ILLNESS: Sachi Grace is a 89 year old female. Patient presents with: Abdominal Pain: Bloating, pain, nausea Patient seen at [facility] ER for the persistent nausea. She did undergo evaluation for tenderness epigastric, left upper quadrant and right upper quadrant pain. Negative guarding or rebound tenderness. WBC 5.2, hemoglobin 12.8, hematocrit 39.3, platelet count 353. Absolute lymphocytes slightly low at 0.69 Sodium 136, potassium 3.8, BUN 13, creatinine 0.65, glucose 100. Calcium 9.1 AST 47, ALT 39, alkaline phosphatase [address] of the abdomen and pelvis showed pancreatic atrophy and pancreatic duct dilatation. In the body of the pancreas there is a 2.8 cm cystic lesion with ill defined margins. Endoscopic ultrasound with fine-needle aspiration surgical consultation is recommended. Also noted a moderate to large amount of stool. Centrilobular emphysema. Diverticulosis without diverticulitis. Usually takes fiber and Miralax. Still having nausea and bloating. No vomiting. No pain all day yesterday. After eating, stomach ache. Pantoprazole making pain worse. She stopped it 3 days ago and pain is better. No fever but chilling. 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 Dupree-every 6 months Gout, unspecified late great toe, several episodes Hypothyroidism, unspecified Multinodular goiter Dr Boateng Osteoarthritis of both knees Other and unspecified hyperlipidemia diet therapy as of 03/08 Paroxysmal supraventricular tachycardia (HCC) ablation 01/2002 ( in [place], [facility]), follows with Dr. Moreno (prn only) RLS (restless legs syndrome) Tinnitus, unspecified ear Unspecified constipation PAST SURGICAL HISTORY Procedure Laterality Date APPENDECTOMY ARTHRP KNE CONDYLEANDPLATU MEDIALANDLAT COMPARTMENTS 2012 Knee replacement, total bilateral CARPAL TUNNEL 2005 bilateral COLONOSCOPY FLX DX W/COLLJ SPEC WHEN PFRMD 12/14/2002 Colonoscopy COLONOSCOPY FLX DX W/COLLJ SPEC WHEN PFRMD 06/10/2007 COLONOSCOPY FLX DX W/COLLJ SPEC WHEN PFRMD 08/04/2013 Colonoscopy COLONOSCOPY FLX DX W/COLLJ SPEC WHEN PFRMD 10/14/2018 [facility]-R. Cebul-Repeat 5 years COLONOSCOPY SCREENING 11/15/2023 R Cebul no repeat due to age CORRECT BUNION,SIMPLE left ECHOCARDIOGRAM 10/18/2017 EGD 1985 bleeding ulcer EPS: SVT/VT ABLATION 2001 [facility] ESOPHAGOGASTRODUODENOSCOPY TRANSORAL DIAGNOSTIC 03/24/2018 EGD HERNIA REPAIR HX 09/2020 ventral hernia repair HOLTER 24 HR 10/2017 LOOP RECORDER IMPLANT 01/23/2018 NASAL/SINUS ENDOSCOPY WITH SPHENOIDOTOMY Bilateral 05/15/2019 Dr. Ruffin NASAL/SINUS ENDOSCPY W/MAXILL ANTROSTOMY Bilateral 05/15/2019 Dr. Ruffin NASAL/SINUS ENDOSCPY W/TOTAL ETHMOIDECTOMY Bilateral 05/15/2019 Dr. Ruffin OPEN REPAIR OF ROTATOR CUFF ACUTE 04/2005 Dr. Mejias PAST SURGICAL HISTORY OF 10/1997 partial colectomy ([place], [facility]) PAST SURGICAL HISTORY OF 2011 nerves cut in my back STEREO LOC FOR CORE BRST BX LT 04/24/2010 left STRESS TEST 12/17/2017 TONSILLECTOMY PRIMARY/SECONDARY ALLERGIES Vicodin [Hydrocodone-Acetaminophen], Buspirone, Cocamidopropyl Betaine, Codeine, Percocet [Oxycodone-Acetaminophen], Sulfa (Sulfonamide Antibiotics), and Tetracycline MEDICATIONS Current Outpatient Medications Medication Sig ondansetron (ZOFRAN) 4 mg tablet Take 1 tablet by mouth every 8 hours as needed for nausea/vomiting. rOPINIRole (REQUIP) 0.5 mg tablet Take 1.5 tablets by mouth daily at bedtime. Vit B Complex 100 Combo No.2 (B-100 COMPLEX) 100 mg TbER Take 1 tablet by mouth once daily. levothyroxine (SYNTHROID) 50 mcg tablet Take 50 mcg by mouth. Take 50 mcg on Saturday, and 75 mcg all other days of the week, per ENDO MEDICATION, NON-DATABASE CBD oil fluticasone propionate (ARMONAIR DIGIHALER) 232 mcg/actuation inhaler Inhale 1 Puff as instructed two times a day. levalbuterol tartrate HFA 45 mcg/actuation inhaler Inhale 1-2 Puffs as instructed every 4 hours as needed for wheezing/shortness of breath. Cholecalciferol, Madina (more content not included)... Normal [facility] CNPLydia 12-15-2024 CNPN Telephone (FAMPWS) SACHI GRACE ([id number]) 1935 F NFR Date Time Provider Department 12/15/24 ANITRA MANCERA During your visit today, we recorded the following information about you: Halima Diaz RN 01/06/2025 9:35 AM Signed Opened in error. Halima Diaz RN Allergies As of Date: 12/15/2024 Noted Allergy Reaction VICODIN (HYDROCODONE-ACETAMINOPHE*01/2013 8 - GI Upset BUSPIRONE 04/21/2024 5 - Intolerance Comments: Anxious, jittery, felt worse, RLS worse. COCAMIDOPROPYL BETAINE 07/27/2020 2 - Rash Comments: itching, rash CODEINE 03/19/2007 8 - GI Upset PERCOCET (OXYCODONE-ACETAMINOPHEN)04/02 8 - GI Upset SULFA (SULFONAMIDE ANTIBIOTICS) 03/19/2007 4 - Hives 7 - Swelling Comments: lips swelled up TETRACYCLINE 04/29/2019 8 - GI Upset Date Reviewed: 11/27/2024 Reviewed by: Anitra Mancera APRN.AUTOMOBILE RENTAL AGENT - Fully Assessed Prescriptions as of 01/06/2025 - rOPINIRole (REQUIP) 0.5 mg tablet Take 1.5 tablets by mouth daily at bedtime. - Vit B Complex 100 Combo No.2 (B-100 COMPLEX) 100 mg TbER Take 1 tablet by mouth once daily. - levothyroxine (SYNTHROID) 50 mcg tablet Take 50 mcg by mouth. Take 50 mcg on Saturday, and 75 mcg all other days of the week, per ENDO - MEDICATION, NON-DATABASE CBD oil - fluticasone propionate (ARMONAIR DIGIHALER) 232 mcg/actuation inhaler Inhale 1 Puff as instructed two times a day. - levalbuterol tartrate HFA 45 mcg/actuation inhaler Inhale 1-2 Puffs as instructed every 4 hours as needed for wheezing/shortness of breath. - Cholecalciferol, Vitamin D3, (VITAMIN D) 25 mcg (1,000 unit) cap Take 1,000 Units by mouth once daily. - clonazePAM (KLONOPIN) 0.5 mg tablet Take 0.5 mg by mouth at bedtime as needed. Dr Dupree - vit A,C,X-Hiau-Afvcwg (PRESERVISION AREDS) 7,160-113-100 rclt-fy-pjjn tab Take by mouth. - ACETAMINOPHEN 500 MG TAB Take one(1) tablet every four(4) to six(6) hours as needed for pain. Problem List As Of Date 12/15/2024 Noted Resolved Unspecified constipation [K59.00] 04/30/2006 03/16/2016 PEPTIC ULCER NOS [K27.9] 03/19/2007 GENERALIZED ANXIETY DIS [F41.1] Generalized osteoarthrosis, unspecified site [M* 12/23/2015 Myalgia and myositis [TLO6302] 05/22/2017 Diverticulosis of large intestine [K57.30] Disorder of bone and cartilage [M89.9, M94.9] Hypothyroidism [E03.9] Hyperlipidemia LDL goal <130 [E78.5] Gout, unspecified [M10.9] 12/23/2015 PEPTIC ULCER NOS [K27.9] 03/19/2007 PAROX ATRIAL TACHYCARDIA [I47.10] 03/19/2007 Disturbances of sensation of smell and taste [R*02/13/2008 05/22/2017 Chronic maxillary sinusitis [J32.0] 02/13/2008 05/22/2017 Meniere's disease, unspecified [H81.09] 05/20/2008 03/16/2016 Dizziness and giddiness [R42] 05/13/2009 12/23/2015 Cervicalgia [M54.2] 05/13/2009 12/23/2015 Osteoarthritis of both knees [M17.0] Multinodular goiter [E04.2] Syncope and collapse [R55] 04/30/2014 12/23/2015 History of knee replacement, total [Z96.659] 12/23/2015 Ageusia [R43.2] 02/23/2016 05/22/2017 Glossitis [K14.0] 02/23/2016 05/22/2017 Mild intermittent asthma without complication [*03/16/2016 Paroxysmal supraventricular tachycardia (HCC) [* Nausea [R11.0] 03/20/2018 04/29/2019 Hernia of anterior abdominal wall [K43.9] 04/18/2020 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] 04/18/2020 BPPV (benign paroxysmal positional vertigo), un*04/22/2020 Itching [L29.9] 07/27/2020 Orthostatic syncope [I95.1] 07/27/2020 RLS (restless legs syndrome) [G25.81] Asthma [J45.909] Benzodiazepine dependence (HCC) [F13.20] 05/29/2023 Anxiety [F41.9] 01/01/2024 Diagnosed: 01/01/2024 Chronic ethmoidal sinusitis [J32.2] 01/01/2024 Diagnosed: 01/01/2024 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*05/27/2012 Diagnosed: 01/01/2024 Disorder of bursae of shoulder region [M71.9] 01/24/2012 Diagnosed: 01/01/2024 Encounter for pre-operative examination [Z01.81*01/01/2024 Diagnosed: 01/01/2024 Family history of malignant neoplasm of colon [*10/08/2023 Diagnosed: 01/01/2024 History of appendectomy [Z90.49] 01/01/2024 Diagnosed: 01/01/2024 Hernia [K46.9] 01/01/2024 Diagnosed: 01/01/2024 History of partial surgical removal of colon [Z*10/08/2023 Diagnosed: 01/01/2024 Low back pain [M54.50] 09/18/2011 Diagnosed: 01/01/2024 Lumbosacral spondylosis without myelopathy [M47*11/01/2011 Diagnosed: 01/01/2024 Neurological deficit present [R29.818] 01/01/2024 Diagnosed: 01/01/2024 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] 07/20/2014 Diagnosed: 01/01/2024 Palpitations [R00.2] 01/01/2024 Diagnosed: 01/01/2024 Sprain of lateral collateral ligament of knee [*05/27/2012 Diagnosed: 01/01/2024 Thoracic and lumbosacral neuritis [M54.14, M54.*09/18/2011 Diagnosed: 01/01/2024 Encounter Status:Closed by HALIMA DIAZ on 01/06/25 Normal [facility] Abdomen/Pelvis W IV Cont ONL Yon 12-10-2024 Abdomen/Pelvis W IV Cont ONLY [facility] Imaging Services [address] [place], [place] [address] Abdomen/Pelvis W IV Cont ONLY MR#: [id number] Acct: [id number] Name: SACHI GRACE Rep #: [id number] : 1935 F 89 From: Denny magdaleno DO PCP: Anitra Mancera, CONSUMER LOAN OFFICER Status: REG ER Study: Abdomen/Pelvis W IV Cont ONLY Date of Exam: Exam# [id number] Ordering Dr: Tony Villanueva DO [id number] EXAM: CT ABDOMEN AND PELVIS WITH INTRAVENOUS CONTRAST CLINICAL INDICATION: Pain TECHNIQUE: Helically acquired images were obtained of the abdomen and pelvis with intravenous contrast. This CT exam was performed using one or more of the following dose reduction techniques: automated exposure control, adjustment of the mA and/or kV according to patient size, and/or use of iterative reconstruction technique. CONTRAST: IV 75mL Isovue-370 COMPARISON: No relevant prior studies available. FINDINGS: LOWER THORAX: Coronary artery calcifications and/or stents. Centrilobular emphysema. No cardiomegaly. No significant pericardial effusion. ABDOMEN: LIVER: No significant abnormality. Homogeneous. No focal mass. GALLBLADDER AND BILE DUCTS: No significant abnormality. No calcified gallstones. No gallbladder distention or wall edema. No intra- or extrahepatic biliary ductal dilation. PANCREAS: Pancreatic atrophy and pancreatic ductal dilatation. In the body of the pancreas, there is a 2.8 cm cystic lesion with ill-defined margins. SPLEEN: No significant abnormality. Normal size without focal cystic or solid mass. ADRENALS: No significant abnormality. No nodules. KIDNEYS AND URETERS: No significant abnormality. Normal renal size and position. No hydronephrosis. STOMACH AND BOWEL: Moderate to large amount of colorectal stool retention. Colonic diverticulosis without evidence of acute diverticulitis. No stomach or bowel distention. PELVIS: APPENDIX: No evidence of acute appendicitis. BLADDER: No significant abnormality. REPRODUCTIVE: Normal as visualized. No mass. ABDOMEN and PELVIS: INTRAPERITONEAL SPACE: No significant abnormality. No ascites or other fluid collection. No free air. BONES/JOINTS: Extensive degenerative changes in the spine and degenerative changes of the visualized appendicular structures. No suspicious lytic or blastic abnormality. SOFT TISSUES: Small fat-containing bilateral inguinal hernias. VASCULATURE: Atherosclerosis. LYMPH NODES: No significant abnormality. No enlarged lymph nodes. CT/Abdomen/Pelvis W IV Cont ONLY IMPRESSION: 1. Pancreatic atrophy and pancreatic ductal dilatation. In the body of the pancreas, there is a 2.8 cm cystic lesion with ill-defined margins. ACR White Paper guidelines (Joe et al. JACR 2017; 14(7):911-923) suggest endoscopic ultrasound with fine needle aspiration and surgical consultation. 2. Moderate to large amount of colorectal stool retention. 3. Centrilobular emphysema. 4. Colonic diverticulosis without evidence of acute diverticulitis. Electronically Signed: Denny Rm DO at 21:57 EST , CC: LEXIE Mancera; Dr. Tony Villanueva DO Horse Racer: Signed Normal [facility] CBC W/Diff, Automatedon Absolute Lymph 0.69 X10 3/uL Low 0.83-4.51 [facility] Comment on above: Performed By: #### L 100.0100, L500.4050, L501.2450 #### [facility] [address] [place], [address] Absolute Neut 3.3 X10 3/uL Normal 2.0-7.7 [facility] Comment on above: Performed By: #### L 100.0100, L500.4050, L501.2450 #### [facility] [address] [place], [address] Basophils/100 WBC (Bld) 1.2 % High 0-1 [facility] Comment on above: Performed By: #### L 100.0100, L500.4050, L501.2450 #### [facility] [address] [place], [address] Eosinophils/100 WBC (Bld) 6.8 % High 0-5 [facility] Comment on above: Performed By: #### L 100.0100, L500.4050, L501.2450 #### [facility] [address] [place], [address] Erythrocyte distribution width (RBC) [Ratio] 15.4 % High 11.6-14.6 [facility] Comment on above: Performed By: #### L 100.0100, L500.4050, L501.2450 #### [facility] [address] [place], [address] Hematocrit (Bld) [Volume fraction] 39.3 % Normal 37-47 [facility] Comment on above: Performed By: #### L 100.0100, L500.4050, L501.2450 #### [facility] [address] [place], [address] Hemoglobin (Bld) [Mass/Vol] 12.8 g/dL Normal 12.0-15.0 [facility] Comment on above: Performed By: #### L 100.0100, L500.4050, L501.2450 #### [facility] [address] [place], [address] IG% 0.200 Normal 0.0-0.9 [facility] Comment on above: Result Comment: IG% - Immature Granulocytes (promyelocytes, myelocytes and metamyelocytes) > 1% indicates that a LEFT SHIFT is Present. Performed By: #### L 100.0100, L500.4050, L501.2450 #### [facility] [address] [place], [address] Lymphocytes/100 WBC (Bld) 13.3 % Low 19-41 [facility] Comment on above: Performed By: #### L 100.0100, L500.4050, L501.2450 #### [facility] [address] [place], [address] MCH (RBC) [Entitic mass] 28.9 pg Normal 27.0-32.0 [facility] Comment on above: Performed By: #### L 100.0100, L500.4050, L501.2450 #### [facility] [address] [place], [address] MCHC (RBC) [Mass/Vol] 32.6 g/dL Normal 32-36 [facility] Comment on above: Performed By: #### L 100.0100, L500.4050, L501.2450 #### [facility] [address] [place], [address] MCV (RBC) [Entitic vol] 88.7 fL Normal 81-99 [facility] Comment on above: Performed By: #### L 100.0100, L500.4050, L501.2450 #### [facility] [address] [place], [address] Monocytes/100 WBC (Bld) 15.7 % High 0-10 [facility] Comment on above: Performed By: #### L 100.0100, L500.4050, L501.2450 #### [facility] [address] [place], [address] Neutrophils/100 WBC (Bld) 62.8 % Normal 47-70 [facility] Comment on above: Performed By: #### L 100.0100, L500.4050, L501.2450 #### [facility] [address] [place], [address] Nucleated RBC (Bld) [#/Vol] 0 10*3/uL Normal 0-5 [facility] Comment on above: Performed By: #### L 100.0100, L500.4050, L501.2450 #### [facility] [address] [place], [address] Platelet mean volume (Bld) [Entitic vol] 9.2 fL Normal 6.2-12.0 [facility] Comment on above: Performed By: #### L 100.0100, L500.4050, L501.2450 #### [facility] [address] [place], [address] Platelets (Bld) [#/Vol] 353 10*3/uL Normal 150-450 [facility] Comment on above: Performed By: #### L 100.0100, L500.4050, L501.2450 #### [facility] [address] [place], [address] RBC (Bld) [#/Vol] 4.43 10*6/uL Normal 4.2-5.4 [facility] Comment on above: Performed By: #### L 100.0100, L500.4050, L501.2450 #### [facility] [address] [place], [address] RDW SD 50.5 fl High 35.1-43.9 [facility] Comment on above: Performed By: #### L 100.0100, L500.4050, L501.2450 #### [facility] [address] [place], [address] WBC (Bld) [#/Vol] 5.2 10*3/uL Normal 4.4-11.0 [facility] Comment on above: Performed By: #### L 100.0100, L500.4050, L501.2450 #### [facility] [address] [place], [address] [place] 12-10-2024 RUSTYN Telephone (FAMPWS) SACHI GRACE ([id number]) 1935 F NFR Date Time Provider Department 12/10/24 ANITRA MANCERA During your visit today, we recorded the following information about you: Kevin Vang, YARY 12/10/2024 11:35 AM Signed Pt reports she is concerned b/c her abdomin is bloated and hard between the ribs and the naval, since Sat or . Reports it is usually flat. Reports she completed all the medication prescribed for H-pylori / ulcer that Dayna prescribed. Is still taking pantoprazole. Completed the antibiotic on . Takes fiber every night (missed 2 days b/c concerned about the bloating- took it last night). Reports she had a normal BM today, is voiding ok, no fever, eating plenty- eats a little bit of everything. Not passing gas, but burping a lot. Asking provider to advise patient. Reports she has appt with Dayna on Sat12/18/24. Anitra Mancera, COMPUTER SYSTEM SPECIALIST.AUTOMOBILE RENTAL AGENT 12/10/2024 12:13 PM Signed Go to ER. Ulcer could perforate. Would need Ct scan Zulma Benites MA 12/10/2024 12:59 PM Signed Left message on home number, attempted to call cell, no answer, no voicemail. Kevin Vang RN 12/10/2024 2:03 PM Signed Left vm for patient to return call to triage nurse for provider instructions. Kevin Vang, YARY 12/10/2024 4:30 PM Signed Left vm for patient to return call to triage nurse for providers instructions. Kevin Vang, YARY 12/10/2024 5:01 PM Signed Left vm for pt to return call. Alix Garcia RN 12/10/2024 6:52 PM Signed Pt called and is notified of providers message and instructions. Pt voices understanding and will be going to [facility] ER. Alix Garcia RN Allergies As of Date: 12/10/2024 Noted Allergy Reaction VICODIN (HYDROCODONE-ACETAMINOPHE*01/2013 8 - GI Upset BUSPIRONE 04/21/2024 5 - Intolerance Comments: Anxious, jittery, felt worse, RLS worse. COCAMIDOPROPYL BETAINE 07/27/2020 2 - Rash Comments: itching, rash CODEINE 03/19/2007 8 - GI Upset PERCOCET (OXYCODONE-ACETAMINOPHEN)04/02 8 - GI Upset SULFA (SULFONAMIDE ANTIBIOTICS) 03/19/2007 4 - Hives 7 - Swelling Comments: lips swelled up TETRACYCLINE 04/29/2019 8 - GI Upset Date Reviewed: 11/27/2024 Reviewed by: Anitra Mancera APRN.AUTOMOBILE RENTAL AGENT - Fully Assessed Reason for Visit: Patient concern [Other] Prescriptions as of 12/10/2024 - bismuth subsalicylate (PEPTO-BISMOL) 262 mg chewable tablet Take 2 tablets by mouth four times daily for 10 days. - pantoprazole DR (PROTONIX) 40 mg tablet Take 1 tablet by mouth once daily. - ondansetron (ZOFRAN) 4 mg tablet Take 1 tablet by mouth every 8 hours as needed for nausea/vomiting. - rOPINIRole (REQUIP) 0.5 mg tablet Take 1.5 tablets by mouth daily at bedtime. - Vit B Complex 100 Combo No.2 (B-100 COMPLEX) 100 mg TbER Take 1 tablet by mouth once daily. - levothyroxine (SYNTHROID) 50 mcg tablet Take 50 mcg by mouth. Take 50 mcg on Saturday, and 75 mcg all other days of the week, per ENDO - MEDICATION, NON-DATABASE CBD oil - fluticasone propionate (ARMONAIR DIGIHALER) 232 mcg/actuation inhaler Inhale 1 Puff as instructed two times a day. - levalbuterol tartrate HFA 45 mcg/actuation inhaler Inhale 1-2 Puffs as instructed every 4 hours as needed for wheezing/shortness of breath. - Cholecalciferol, Vitamin D3, (VITAMIN D) 25 mcg (1,000 unit) cap Take 1,000 Units by mouth once daily. - clonazePAM (KLONOPIN) 0.5 mg tablet Take 0.5 mg by mouth at bedtime as needed. Dr Dupree - vit A,C,W-Mhii-Ffwufk (PRESERVISION AREDS) 7,160-113-100 aizo-jy-krrd tab Take by mouth. - ACETAMINOPHEN 500 MG TAB Take one(1) tablet every four(4) to six(6) hours as needed for pain. 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] 03/19/2007 Disturbances of sensation of smell and taste [R*02/13/2008 05/22/2017 Chronic maxillary sinusitis [J32.0] 02/13/2008 05/22/2017 Meniere's disease, unspecified [H81.09] 05/20/2008 03/16/2016 Dizziness and giddiness [R42] 05/13/2009 12/23/2015 Cervicalgia [M54.2] 05/13/2009 12/23/2015 Osteoarthritis of both knees [M17.0] Multinodular goiter [E04.2] Syncope and collapse [R55] 04/30/2014 12/23/2015 History of knee replacement, total [Z96.659] 12/23/2015 Ageusia [R43.2] 02/23/2016 05/22/2017 Glossitis [K14.0] 02/23/2016 05/22/2017 Mild intermittent asthma without complication [*03/16/2016 Paroxysmal supraventricular tachycardia (HCC) [* N (more content not included)... Normal [facility] Metabolic Prof tello 12-10-2024 Albumin [Mass/Vol] 3.4 g/dL Normal 3.2-5.0 [facility] Comment on above: Performed By: #### L 100.0100, L500.4050, L501.2450 ####[facility] [address] [place], [address] Albumin/Globulin [Mass ratio] 0.8 {ratio} Low 0.9-2.4 [facility] Comment on above: Performed By: #### L 100.0100, L500.4050, L501.2450 ####[facility] [address] [place], [address] ALK P 95 U/L Normal 45-117 [facility] Comment on above: Performed By: #### L 100.0100, L500.4050, L501.2450 ####[facility] [address] [place], [address] ALT [Catalytic activity/Vol] 39 U/L Normal 13-56 [facility] Comment on above: Performed By: #### L 100.0100, L500.4050, L501.2450 ####[facility] [address] [place], [address] AST [Catalytic activity/Vol] 47 U/L High 15-37 [facility] Comment on above: Performed By: #### L 100.0100, L500.4050, L501.2450 ####[facility] [address] [place], [address] Bilirubin [Mass/Vol] 0.30 mg/dL Normal 0.20-1.00 [facility] Comment on above: Result Comment: For patients on eltrombopag therapy, use of Dimension [place] TBIL is not recommended. Performed By: #### L 100.0100, L500.4050, L501.2450 ####[facility] [address] [place], [address] BUN/CRE 19.9 RATIO Normal 10-20 [facility] Comment on above: Performed By: #### L 100.0100, L500.4050, L501.2450 ####[facility] [address] [place], [address] CA,Total 9.1 mg/dL Normal 8.5-10.1 [facility] Comment on above: Performed By: #### L 100.0100, L500.4050, L501.2450 ####[facility] [address] [place], [address] Chloride [Moles/Vol] 100 mmol/L Normal 98-107 [facility] Comment on above: Performed By: #### L 100.0100, L500.4050, L501.2450 ####[facility] [address] [place], [address] CO2 [Moles/Vol] 31.0 mmol/L Normal 21.0-32.0 [facility] Comment on above: Performed By: #### L 100.0100, L500.4050, L501.2450 ####[facility] [address] [place], [address] Creatinine [Mass/Vol] 0.65 mg/dL Normal 0.55-1.02 [facility] Comment on above: Result Comment: The validity of the calculated GFR GFRAA in patients over 70 years has not been determined. Clinical correlation is essential. Performed By: #### L 100.0100, L500.4050, L501.2450 ####[facility] [address] [place], [address] ECRCL 39.61 ml/min Normal [facility] Comment on above: Performed By: #### L 100.0100, L500.4050, L501.2450 ####[facility] [address] [place], [address] EST GFR - AA 110 mL/min Normal >60 [facility] Comment on above: Result Comment: Afri can [place] GFR Calc Performed By: #### L 100.0100, L500.4050, L501.2450 ####[facility] [address] [place], [address] GAP 5 Normal 5-15 [facility] Comment on above: Performed By: #### L 100.0100, L500.4050, L501.2450 ####[facility] [address] [place], [address] GFR/1.73 sq M.predicted among non-blacks MDRD (S/P/Bld) [Vol rate/Area] 91 mL/min/{1.73_m2} Normal >60 [facility] Comment on above: Result Comment: Non- GFR Calc Performed By: #### L 100.0100, L500.4050, L501.2450 ####[facility] [address] [place], [address] Globulin (S) [Mass/Vol] 4.1 g/dL Normal 2.2-4.2 [facility] Comment on above: Performed By: #### L 100.0100, L500.4050, L501.2450 ####[facility] [address] [place], [address] Glucose [Mass/Vol] 100 mg/dL Normal 74-106 [facility] Comment on above: Result Comment: Fast ing Glucose result from 100 to 125 mg/dL suggests IMPAIRED HOMEOSTASIS per A.D.A. criteria. Performed By: #### L 100.0100, L500.4050, L501.2450 ####[facility] [address] [place], [address] Potassium [Moles/Vol] 3.8 mmol/L Normal 3.5-5.1 [facility] Comment on above: Performed By: #### L 100.0100, L500.4050, L501.2450 ####[facility] [address] [place], [address] Sodium [Moles/Vol] 136 mmol/L Normal 136-145 [facility] Comment on above: Performed By: #### L 100.0100, L500.4050, L501.2450 ####[facility] [address] [place], [address] T PROT 7.5 g/dL Normal 6.4-8.2 [facility] Comment on above: Performed By: #### L 100.0100, L500.4050, L501.2450 ####[facility] [address] [place], [address] Urea nitrogen [Mass/Vol] 13 mg/dL Normal 7-18 [facility] Comment on above: Performed By: #### L 100.0100, L500.4050, L501.2450 ####[facility] [address] [place], [address] Emergency Department Summary on 12-10-2024 Emergency Department Summary [facility] Medical Records Department [address] [place] [address] Emergency Department Summary 12/10/24 MR#: [id number] Acct: [id number] Name: SACHI GRACE Rep #: [id number] : 1935 89 From: Tony Villanueva DO PCP: Anitra Mancera, [employer]ICER Status:DEP ER Location: ED HPI HPI - GI History of Present Illness Chief Complaint: Abd Pain Informant: patient Abdominal Pain/Flank Pain Onset: Weeks Context: Gradual Onset Timing: Intermittent Quality: Aching Location: Epigastric Worsened by: Food Relieved by: Nothing Nausea/Vomiting/Emesis GI Symptom: Positive for Nausea; Negative for Vomiting Diarrhea/Melena/Hematochezia GI Symptom: Negative for Diarrhea, Melena or Hematochezia Associated Symptoms Associated Symptoms: Negative for Dysuria, Frequency or Hematuria Narrative Narrative: Patient presents with abdominal pain that has been getting worse over the past couple weeks. Patient states it is gradually getting worse. Patient states it is intermittent. Patient describes her pain as aching. Patient states her pain is over the upper abdomen. Patient states that sometimes food makes it worse. Patient admits to some nausea but denies any vomiting. Patient denies any diarrhea, melena, or hematochezia. Patient states she recently completed treatment for H. pylori infection. Patient admits to some constipation. Patient denies any urinary complaints. [facility] Medical History Wears partial dentures Fibromyalgia Arthritis History of ulceration History of diverticulitis Panic disorder Medication monitoring encounter Ventral incisional hernia without obstruction or gangrene Decreased sense of taste Chronic sphenoidal sinusitis Chronic ethmoidal sinusitis Chronic maxillary sinusitis Family history of colon cancer in father Pre-op evaluation Hyperlipidemia Syncope and collapse Mixed hyperlipidemia PSVT (paroxysmal supraventricular tachycardia) Chest discomfort Palpitations Hypothyroidism Asthma Home Medications ???Medication ???Instructions ???Recorded ???Last Taken ???Type albuterol sulfate 90 mcg/actuation 1 puff inhalation Q4H PRN PRN 05/09/14 09/26/20 05:30 History aerosol inhaler Wheezing vit C 250 mg-vit E 90 mg-zinc 40 1 tab PO BID 11/22/17 Unknown History mg-copper 1 tq-jmeefn-ccyeri capsule (PreserVision AREDS-2) polyethylene glycol 3350 17 17 g PO QDAY PRN Constipation 01/31/18 Unknown History gram/dose oral powder (Miralax) acetaminophen 325 mg tablet 500 mg (1.5385 x 325 mg) PO Q4H 05/15/19 Unknown Rx PRN PRN Mild-Moderate Pain (1-5/10) levothyroxine 50 mcg tablet 50 mcg PO DAILY 09/22/20 09/26/20 05:30 History ropinirole 0.5 mg tablet 0.75 mg PO DAILY 11/11/23 Unknown History nortriptyline 10 mg capsule 10 mg PO BID #120 caps 09/24/24 Unknown Rx CBD Oral (INFORMATIONAL USE 11/10/24 Unknown History ONLY-PT USES ORAL CBD) clonazepam 0.5 mg tablet 0.5 mg PO QHS #30 tabs 11/10/24 Unknown Rx gabapentin 100 mg capsule 100 mg PO TID 11/10/24 Unknown History Allergy/AdvReac Type Severity Reaction Status Date / Time cocamidopropyl betaine Allergy Intermediate Rash Verified 12/10/24 19:37 Sulfa (Sulfonamide Allergy Swelling Verified 12/10/24 19:37 Antibiotics) Environmental Allergies: AdvReac Severe NEEDS Verified 12/10/24 19:37 Uncoded (dust) FOLLOW-UP mold AdvReac Severe NEEDS Verified 12/10/24 19:37 FOLLOW-UP metoprolol AdvReac Intermediate I feel Verified 12/10/24 19:37 awful codeine AdvReac Nausea Verified 12/10/24 19:37 diphenhydramine (From AdvReac Nausea Verified 12/10/24 19:37 Benadryl) hydrocodone bitartrate (From AdvReac Nausea Verified 12/10/24 19:37 Vicodin) oxycodone HCl (From Percocet) AdvReac Nausea Verified 12/10/24 19:37 tetracycline AdvReac Nausea/Vom/ Verified 12/10/24 19:37 Diarrhea Family History Father Colon cancer CAD (coronary artery disease) Mother CAD (coronary artery disease) Sister CVA (cerebral vascular accident) Brother Cancer Lung cancer Surgical History S/P ventral herniorrhaphy History of bilateral knee replacement Hx of rotator cuff surgery S/P carpal tunnel release S/P partial colectomy History of loop recorder H/O prior ablation treatment History of appendectomy History of tonsillectomy Social History household members: spouse Smoking Status: Never smoker alcohol intake: never substance use type: does not use caffeine: No what type of physical activity do you participate in: bicycling frequency: daily duration: 15-30 minutes/day seatbelt use: always do you feel safe at h (more content not included)... Normal [facility] Lipaseon 12-10-2024 Lipase [Catalytic activity/Vol] 25 U/L Normal 13-75 [facility] Comment on above: Result Comment: Sandeep bhandari note: LIPASE revised reference range effective 23. New Lipase methodology. Expected to produce lower values than the previous assay method. NEW Reference Range: 13 - 75 U/L Performed By: #### L 100.0100, L500.4050, L501.2450 ####[facility] [address] [place], [address] Urinalysis, Completeon 12-10 RBC 0-5 SEEN Normal 0-5 [facility] Comment on above: Order Comment: CLEAN CATCH Performed By: #### L 400.0001 #### [facility] [address] [place], [address] WBC 0-5 SEEN Normal 0-5 [facility] Comment on above: Order Comment: CLEAN CATCH Performed By: #### L 400.0001 #### [facility] [address] [place], [address] BACTERIA 0 SEEN Normal None Seen [facility] Comment on above: Order Comment: CLEAN CATCH Performed By: #### L 400.0001 #### [facility] [address] [place], [address] EPI,SQUAMOUS 0 SEEN Normal 5-10 [facility] Comment on above: Order Comment: CLEAN CATCH Performed By: #### L 400.0001 #### [facility] [address] [place], [address] Mucus Ql (Urine sed) [address] [facility] Comment on above: Order Comment: CLEAN CATCH Performed By: #### L 400.0001 #### [facility] [address] [place], [address] CNPLydia 11-30-2024 CNPN Telephone (FAMPWS) SACHI GRACE ([id number]) 1935 F NFR Date Time Provider Department 11/30/24 ANITRA MANCERAHUSSAIN During your visit today, we recorded the following information about you: Arlen Black LPN 11/30/2024 10:39 AM Signed Patient calling with complaints of nausea after starting the doxycycline, which she did stop taking. Did mention had a similar reaction to tetracycline in the past and this is on her list of allergies. She is asking if she should be on a different antibiotic and has been able to take amoxicillin in the past with no adverse reactions. ANITRA MANCERA 11/30/2024 1:01 PM Signed Nausea is not an allergy. I gave her Zofran to take for nausea when she takes the doxycycline. It does not matter what antibiotic she has taken in the past, we have to take 1 that specifically is indicated for ulcers and that is the 2 that I gave her. I would just refer her to GI. We cannot get rid of her ulcer or her H. pylori without the appropriate medication. Lily Soriano LPN 11/30/2024 2:07 PM Signed Spoke with patient and explained that she needs to stick with the treatment. Some of her symptoms may even be coming from the H pylori. Patient is going to try to stick with the treatment and will let us know if she can't do it. Allergies As of Date: 11/30/2024 Noted Allergy Reaction VICODIN (HYDROCODONE-ACETAMINOPHE*01/2013 8 - GI Upset BUSPIRONE 04/21/2024 5 - Intolerance Comments: Anxious, jittery, felt worse, RLS worse. COCAMIDOPROPYL BETAINE 07/27/2020 2 - Rash Comments: itching, rash CODEINE 03/19/2007 8 - GI Upset PERCOCET (OXYCODONE-ACETAMINOPHEN)04/02 8 - GI Upset SULFA (SULFONAMIDE ANTIBIOTICS) 03/19/2007 4 - Hives 7 - Swelling Comments: lips swelled up TETRACYCLINE 04/29/2019 8 - GI Upset Date Reviewed: 11/27/2024 Reviewed by: ANITRA MANCERA - Fully Assessed Reason for Visit: Medication Problem [65] Primary Visit Diagnosis:H pylori ulcer [K27.9, B96.81] Order(s):CONSULT TO GASTROENTEROLOGY [0324] Order #: [id number]: 1 FUTURE Prescriptions as of 11/30/2024 - bismuth subsalicylate (PEPTO-BISMOL) 262 mg chewable tablet Take 2 tablets by mouth four times daily for 10 days. - doxycycline hyclate (VIBRAMYCIN) 100 mg capsule Take 1 capsule (100 mg) by mouth two times a day for 10 days. - metroNIDAZOLE (FLAGYL) 250 mg tablet Take 1 tablet by mouth four times daily for 10 days. - pantoprazole DR (PROTONIX) 40 mg tablet Take 1 tablet by mouth once daily. - ondansetron (ZOFRAN) 4 mg tablet Take 1 tablet by mouth every 8 hours as needed for nausea/vomiting. - rOPINIRole (REQUIP) 0.5 mg tablet Take 1.5 tablets by mouth daily at bedtime. - Vit B Complex 100 Combo No.2 (B-100 COMPLEX) 100 mg TbER Take 1 tablet by mouth once daily. - levothyroxine (SYNTHROID) 50 mcg tablet Take 50 mcg by mouth. Take 50 mcg on Saturday, and 75 mcg all other days of the week, per ENDO - MEDICATION, NON-DATABASE CBD oil - fluticasone propionate (ARMONAIR DIGIHALER) 232 mcg/actuation inhaler Inhale 1 Puff as instructed two times a day. - levalbuterol tartrate HFA 45 mcg/actuation inhaler Inhale 1-2 Puffs as instructed every 4 hours as needed for wheezing/shortness of breath. - Cholecalciferol, Vitamin D3, (VITAMIN D) 25 mcg (1,000 unit) cap Take 1,000 Units by mouth once daily. - clonazePAM (KLONOPIN) 0.5 mg tablet Take 0.5 mg by mouth at bedtime as needed. Dr Dupree - vit A,C,X-Iaqx-Zknmxu (PRESERVISION AREDS) 7,160-113-100 mhgj-wu-lmwd tab Take by mouth. - ACETAMINOPHEN 500 MG TAB Take one(1) tablet every four(4) to six(6) hours as needed for pain. Problem List As Of Date 11/30/2024 Noted Resolved Unspecified constipation [K59.00] 04/30/2006 03/16/2016 PEPTIC ULCER NOS [K27.9] 03/19/2007 GENERALIZED ANXIETY DIS [F41.1] Generalized osteoarthrosis, unspecified site [M* 12/23/2015 Myalgia and myositis [ATA1526] 05/22/2017 Diverticulosis of large intestine [K57.30] Disorder of bone and cartilage [M89.9, M94.9] Hypothyroidism [E03.9] Hyperlipidemia LDL goal <130 [E78.5] Gout, unspecified [M10.9] 12/23/2015 PEPTIC ULCER NOS [K27.9] 03/19/2007 PAROX ATRIAL TACHYCARDIA [I47.10] 03/19/2007 Disturbances of sensation of smell and taste [R*02/13/2008 05/22/2017 Chronic maxillary sinusitis [J32.0] 02/13/2008 05/22/2017 Meniere's disease, unspecified [H81.09] 05/20/2008 03/16/2016 Dizziness and giddiness [R42] 05/13/2009 12/23/2015 Cervicalgia [M54.2] 05/13/2009 12/23/2015 Osteoarthritis of both knees [M17.0] Multinodular goiter [E04.2] Syncope and collapse [R55] 04/30/2014 12/23/2015 History of knee replacement, total [Z96.659] 12/23/2015 Ageusia [R43.2] 02/23/2016 05/22/2017 Glossitis [K14.0] 02/23/2016 05/22/2017 Mild intermittent asthma without complication [*03/16/2016 Paroxysmal supraventricular tachycardia (HCC) [* Nausea [ (more content not included)... Normal [facility] CNOVon 11-27-2024 CNOV Office Visit (FAMPWS ) SACHI GRACE ([id number]) 1935 F NFR Date Time Provider Department 11/27/24 11:00 AM ANITRA MANCERA During your visit today, we recorded the following information about you: Temperature Pulse Blood pressure Weight 97.5 degrees 74/minute 102/58 59 kg Anitra Mancera APRN.CNP 11/27/2024 11:42 AM Signed This is a 89 year old female who presents today with: Patient presents with: Follow Up HISTORY OF PRESENT ILLNESS: Sachi Grace is a 89 year old female. Patient presents with: Follow Up Has not picked up antibiotics or started pepto-bismol. Will pick them up today Stomach pain is improved. Some nausea. No fever but chills Mouth is sore but bearable. Burning pain. Area where incision was upper lip, is painful. Eating ok. Gained 3 lb. Since Saturday Constipation from holding stool softener and laxative Sleep is broken by getting up at night once to urinate Dr. Dupree retired and now following with Dr. 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 Dupree-every 6 months Gout, unspecified late great toe, several episodes Hypothyroidism, unspecified Multinodular goiter Dr Boateng Osteoarthritis of both knees Other and unspecified hyperlipidemia diet therapy as of 03/08 Paroxysmal supraventricular tachycardia (HCC) ablation 01/2002 ( in [facility]), follows with Dr. Moreno (prn only) RLS (restless legs syndrome) Tinnitus, unspecified ear Unspecified constipation PAST SURGICAL HISTORY Procedure Laterality Date APPENDECTOMY ARTHRP KNE CONDYLEANDPLATU MEDIALANDLAT COMPARTMENTS 2012 Knee replacement, total bilateral CARPAL TUNNEL 2005 bilateral COLONOSCOPY FLX DX W/COLLJ SPEC WHEN PFRMD 12/14/2002 Colonoscopy COLONOSCOPY FLX DX W/COLLJ SPEC WHEN PFRMD 06/10/2007 COLONOSCOPY FLX DX W/COLLJ SPEC WHEN PFRMD 08/04/2013 Colonoscopy COLONOSCOPY FLX DX W/COLLJ SPEC WHEN PFRMD 10/14/2018 [facility]-R. [place]-Repeat 5 years COLONOSCOPY SCREENING 11/15/2023 R Cebul no repeat due to age CORRECT BUNION,SIMPLE left ECHOCARDIOGRAM 10/18/2017 EGD 1985 bleeding ulcer EPS: SVT/VT ABLATION 2001 [facility] ESOPHAGOGASTRODUODENOSCOPY TRANSORAL DIAGNOSTIC 03/24/2018 EGD HERNIA REPAIR HX 09/2020 ventral hernia repair HOLTER 24 HR 10/2017 LOOP RECORDER IMPLANT 01/23/2018 NASAL/SINUS ENDOSCOPY WITH SPHENOIDOTOMY Bilateral 05/15/2019 Dr. Ruffin NASAL/SINUS ENDOSCPY W/MAXILL ANTROSTOMY Bilateral 05/15/2019 Dr. Ruffin NASAL/SINUS ENDOSCPY W/TOTAL ETHMOIDECTOMY Bilateral 05/15/2019 Dr. Ruffin OPEN REPAIR OF ROTATOR CUFF ACUTE 04/2005 Dr. Mejias PAST SURGICAL HISTORY OF 10/1997 partial colectomy ([place], [facility]) PAST SURGICAL HISTORY OF 2011 nerves cut in my back STEREO LOC FOR CORE BRST BX LT 04/24/2010 left STRESS TEST 12/17/2017 TONSILLECTOMY PRIMARY/SECONDARY ALLERGIES Vicodin [Hydrocodone-Acetaminophen], Buspirone, Cocamidopropyl Betaine, Codeine, Percocet [Oxycodone-Acetaminophen], Sulfa (Sulfonamide Antibiotics), and Tetracycline MEDICATIONS Current Outpatient Medications Medication Sig bismuth subsalicylate (PEPTO-BISMOL) 262 mg chewable tablet Take 2 tablets by mouth four times daily for 10 days. doxycycline hyclate (VIBRAMYCIN) 100 mg capsule Take 1 capsule (100 mg) by mouth two times a day for 10 days. metroNIDAZOLE (FLAGYL) 250 mg tablet Take 1 tablet by mouth four times daily for [address] (PROTONIX) 40 mg tablet Take 1 tablet by mouth once daily. ondansetron (ZOFRAN) 4 mg tablet Take 1 tablet by mouth every 8 hours as needed for nausea/vomiting. rOPINIRole (REQUIP) 0.5 mg tablet Take 1.5 tablets by mouth daily at bedtime. Vit B Complex 100 Combo No.2 (B-100 COMPLEX) 100 mg TbER Take 1 tablet by mouth once daily. levothyroxine (SYNTHROID) 50 mcg tablet Take 50 mcg by mouth. Take 50 mcg on Saturday, and 75 mcg all other days of the week, per ENDO MEDICATION, NON-DATABASE CBD oil fluticasone propionate (ARMONAIR DIGIHALER) 232 mcg/actuation inhaler Inhale 1 Puff as instructed two times a day. levalbuterol tartrate HFA 45 mcg/actuation inhaler Inhale 1-2 Puffs as instructed every 4 hours as needed for wheezing/shortness of breath. Cholecalciferol, Vitamin D3, (VITAMIN D) 25 mcg (1,000 unit) cap Take 1,000 Units by mouth once daily. clonazePAM (KLONOPIN) 0.5 mg tablet Take 0.5 mg by mouth at bedtime as needed. Dr Joon Avery,Ann,T-Zorj-Twhkbv (PRESERVISION AREDS) 7,160-113-100 hkcv-jl-umth tab Take by mouth. ACETAMINOPHEN 500 MG TAB Take one (more content not included)... Normal [facility] 11-26-2024 ANA CRISTINA Telephone (MARY) SACHI GRACE ([id number]) 1935 F NFR Date Time Provider Department 11/26/24 ANITRA MANCERA During your visit today, we recorded the following information about you: Anitra Mancera APRN.CNP 11/26/2024 7:47 AM Signed Please let patient know that she is positive for H. pylori, the bacteria that causes ulcers. I have to give her 2 different antibiotics that she will take both for 10 days. Doxycycline twice a day for 10 days and metronidazole 4 times a day for 10 days. She will also take bismuth chews. Take all of them with the pantoprazole to heal the ulcer and eradicate that bacteria. She has nausea medicine if she needs to take that along with it. Lily Soriano LPN 11/26/2024 11:54 AM Signed States that her stools are still black. Asking what she should do for this? She does have appt to follow up with you tomorrow. Aintra Mancera APRN.CNP 11/26/2024 11:56 AM Signed We need to treat the H. pylori. She may be having a little bit of bleeding or it may be the Pepto-Bismol. We need to get the stomach to heal. Zulma Benites MA 11/26/2024 12:06 PM Signed Patient notified of provider message and will come to the appointment tomorrow Allergies As of Date: 11/26/2024 Noted Allergy Reaction VICODIN (HYDROCODONE-ACETAMINOPHE*01/2013 8 - GI Upset BUSPIRONE 04/21/2024 5 - Intolerance Comments: Anxious, jittery, felt worse, RLS worse. COCAMIDOPROPYL BETAINE 07/27/2020 2 - Rash Comments: itching, rash CODEINE 03/19/2007 8 - GI Upset PERCOCET (OXYCODONE-ACETAMINOPHEN)04/02 8 - GI Upset SULFA (SULFONAMIDE ANTIBIOTICS) 03/19/2007 4 - Hives 7 - Swelling Comments: lips swelled up TETRACYCLINE 04/29/2019 8 - GI Upset Date Reviewed: 11/23/2024 Reviewed by: Anitra Mancera APRN.[employer] - Fully Assessed Reason for Visit: Results [95] Primary Visit Diagnosis:H pylori ulcer [K27.9, B96.81] Order(s):bismuth subsalicylate (PEPTO-BISMOL) 262 mg chewable tabletTake 2 tablets by mouth four times daily for 10 days.Disp: 80 tabletRfl: 0 doxycycline hyclate (VIBRAMYCIN) 100 mg capsuleTake 1 capsule (100 mg) by mouth two times a day for 10 days.Disp: 20 capsuleRfl: 0 metroNIDAZOLE (FLAGYL) 250 mg tabletTake 1 tablet by mouth four times daily for 10 days.Disp: 40 tabletRfl: 0 Prescriptions as of 11/26/2024 - bismuth subsalicylate (PEPTO-BISMOL) 262 mg chewable tablet Take 2 tablets by mouth four times daily for 10 days. - doxycycline hyclate (VIBRAMYCIN) 100 mg capsule Take 1 capsule (100 mg) by mouth two times a day for 10 days. - metroNIDAZOLE (FLAGYL) 250 mg tablet Take 1 tablet by mouth four times daily for 10 days. - pantoprazole DR (PROTONIX) 40 mg tablet Take 1 tablet by mouth once daily. - ondansetron (ZOFRAN) 4 mg tablet Take 1 tablet by mouth every 8 hours as needed for nausea/vomiting. - rOPINIRole (REQUIP) 0.5 mg tablet Take 1.5 tablets by mouth daily at bedtime. - Vit B Complex 100 Combo No.2 (B-100 COMPLEX) 100 mg TbER Take 1 tablet by mouth once daily. - levothyroxine (SYNTHROID) 50 mcg tablet Take 50 mcg by mouth. Take 50 mcg on Saturday, and 75 mcg all other days of the week, per ENDO - MEDICATION, NON-DATABASE CBD oil - fluticasone propionate (ARMONAIR DIGIHALER) 232 mcg/actuation inhaler Inhale 1 Puff as instructed two times a day. - levalbuterol tartrate HFA 45 mcg/actuation inhaler Inhale 1-2 Puffs as instructed every 4 hours as needed for wheezing/shortness of breath. - Cholecalciferol, Vitamin D3, (VITAMIN D) 25 mcg (1,000 unit) cap Take 1,000 Units by mouth once daily. - clonazePAM (KLONOPIN) 0.5 mg tablet Take 0.5 mg by mouth at bedtime as needed. Dr Dupree - vit A,C,Y-Facn-Yobpev (PRESERVISION AREDS) 7,160-113-100 lght-rx-xcqy tab Take by mouth. - ACETAMINOPHEN 500 MG TAB Take one(1) tablet every four(4) to six(6) hours as needed for pain. Problem List As Of Date 11/26/2024 Noted Resolved Unspecified constipation [K59.00] 04/30/2006 03/16/2016 PEPTIC ULCER NOS [K27.9] 03/19/2007 GENERALIZED ANXIETY DIS [F41.1] Generalized osteoarthrosis, unspecified site [M* 12/23/2015 Myalgia and myositis [QEW8078] 05/22/2017 Diverticulosis of large intestine [K57.30] Disorder of bone and cartilage [M89.9, M94.9] Hypothyroidism [E03.9] Hyperlipidemia LDL goal <130 [E78.5] Gout, unspecified [M10.9] 12/23/2015 PEPTIC ULCER NOS [K27.9] 03/19/2007 PAROX ATRIAL TACHYCARDIA [I47.10] 03/19/2007 Disturbances of sensation of smell and taste [R*02/13/2008 05/22/2017 Chronic maxillary sinusitis [J32.0] 02/13/2008 05/22/2017 Meniere's disease, unspecified [H81.09] 05/20/2008 03/16/2016 Dizziness and giddiness [R42] 05/13/2009 12/23/2015 Cervicalgia [M54.2] 05/13/2009 12/23/2015 Osteoarthritis of both knees [M17.0] Multinodular goiter [E04.2] Syncope and collapse [R55] 04/30/2014 12/23/2015 History of knee replacement, (more content not included)... Normal [facility] Amylase SerPl-cCncon 024 Amylase [Catalytic activity/Vol] 40 U/L Normal 30-104 [facility] Comment on above: Order Comment: Speci men Type: BLOOD SPECIMEN Ordering Facility: [facility] Address: [address] [place] [address] Performed By: #### 3 016-3, 87228-4, 17740-9, LIPNF #### [facility] CLIA [id number] [address] [place] [address] [place] Basic metabolic 2000 panelon 11-23-2024 Anion gap [Moles/Vol] 12 mmol/L Normal 8-15 [facility] Comment on above: Order Comment: Speci men Type: BLOOD SPECIMEN Ordering Facility: [facility] Address: [address] [place] [address] Performed By: #### 3 016-3, 86555-3, 08099-8, LIPNF #### [facility] CLIA [id number] [address] [place] [address] [place] Calcium [Mass/Vol] 9.4 mg/dL Normal 8.5-10.2 [facility] Comment on above: Order Comment: Speci men Type: BLOOD SPECIMEN Ordering Facility: [facility] Address: [address] [place] [address] Performed By: #### 3 016-3, 07865-1, 89159-8, LIPNF #### [facility] CLIA [id number] [address] [place] [address] [place] Chloride [Moles/Vol] 101 mmol/L Normal 98-107 [facility] Comment on above: Order Comment: Speci men Type: BLOOD SPECIMEN Ordering Facility: [facility] Address: [address] [place] [address] Performed By: #### 3 016-3, 23077-4, 09191-8, LIPNF #### [facility] CLIA [id number] [address] [place] [address] [place] CO2 [Moles/Vol] 27 mmol/L Normal 22-30 [facility] Comment on above: Order Comment: Speci men Type: BLOOD SPECIMEN Ordering Facility: [facility] Address: [address] [place] [address] Performed By: #### 3 016-3, 26683-7, 19782-1, LIPNF #### [facility] CLIA [id number] [address] [place] [address] [place] Creatinine [Mass/Vol] 0.53 mg/dL Low 0.58-0.96 [facility] Comment on above: Order Comment: Speci men Type: BLOOD SPECIMEN Ordering Facility: [facility] Address: [address] [place] [address] Performed By: #### 3 016-3, , , LIPNF #### [facility] CLIA [id number] [address] [place] [address] [place] Creatinine and Glomerular filtration rate.predicted panel (S/P/Bld) 89 mL/min/1.73m??? Normal >=60 [facility] Comment on above: Order Comment: Speci men Type: BLOOD SPECIMEN Ordering Facility: [facility] Address: [address] [place] [address] Result Comment: Solitario mated Glomerular Filtration Rate (eGFR) is calculated using the 2020 CKD-EPI creatinine equation. This equation utilizes serum creatinine, sex, and age as parameters. The creatinine assay has traceable calibration to isotope dilution-mass spectrometry. Refer to KDIGO guidelines for clinical interpretation. In patients with unstable renal function, e.g. those with acute kidney injury, the eGFR may not accurately reflect actual GFR. Performed By: #### 3 016-3, , , LIPNF #### [facility] CLIA [id number] [address] [place] [address] [place] Glucose [Mass/Vol] 92 mg/dL Normal 74-99 [facility] Comment on above: Order Comment: Pearl colorado Type: BLOOD SPECIMEN Ordering Facility: [facility] Address: [address] [place] [address] Result Comment: The [place] Diabetes [employer] (ADA) provides guidance for cutoff values for fasting glucose and random glucose. The ADA defines fasting as no caloric intake for at least 8 hours. Fasting plasma glucose results between 100 to 125 mg/dL indicate increased risk for diabetes (prediabetes). Fasting plasma glucose results greater than or equal to 126 mg/dL meet the criteria for diagnosis of diabetes. In the absence of unequivocal hyperglycemia, results should be confirmed by repeat testing. In a patient with classic symptoms of hyperglycemia or hyperglycemic crisis, random plasma glucose results greater than or equal to 200 mg/dL meet the criteria for diagnosis of diabetes. Reference: Standards of Medical Care in Diabetes 2016, [place] [employer]. Diabetes Care. 2016.39(Suppl 1). Performed By: #### 3 016-3, 93402-8, , LIPNF #### [facility] CLIA [id number] [address] [place] [address] [place] Potassium [Moles/Vol] 4.2 mmol/L Normal 3.7-5.1 [facility] Comment on above: Order Comment: Pearl colorado Type: BLOOD SPECIMEN Ordering Facility: [facility] Address: [address] [place] [address] Performed By: #### 3 016-3, 85598-2, , LIPNF #### [facility] CLIA [id number] [address] [place] [address] [place] Sodium [Moles/Vol] 140 mmol/L Normal 136-144 [facility] Comment on above: Order Comment: Speci men Type: BLOOD SPECIMEN Ordering Facility: [facility] Address: [address] [place] [address] Performed By: #### 3 016-3, 61165-4, 42898-5, LIPNF #### [facility] CLIA [id number] [address] [place] [address] [place] Urea nitrogen [Mass/Vol] 12 mg/dL Normal 7-21 [facility] Comment on above: Order Comment: Speci men Type: BLOOD SPECIMEN Ordering Facility: [facility] Address: [address] [place] [address] Performed By: #### 3 016-3, 02961-2, 95008-2, LIPNF #### [facility] CLIA [id number] [address] [place] [address] [place] CBC W Auto Differential pane l (Bld)on 11-23-2024 Basophils (Bld) [#/Vol] 0.03 10*3/uL [facility] Basophils/100 WBC (Bld) 0.6 % [facility] Differential cell count method Nom (Bld) Auto [facility] Eosinophils (Bld) [#/Vol] 0.26 10*3/uL [facility] Eosinophils/100 WBC (Bld) 5.6 % [facility] Erythrocyte distribution width (RBC) [Ratio] 14.6 % 11.5 - 15.0 % [facility] Hematocrit (Bld) [Volume fraction] 40.7 % 36.0 - 46.0 % [facility] Hemoglobin (Bld) [Mass/Vol] 12.8 g/dL 11.5 - 15.5 g/dL [facility] Immature granulocytes (Bld) [#/Vol] [facility] Immature granulocytes/100 WBC (Bld) 0.2 % [facility] Interpretation and review of laboratory results Abnormal [facility] Lymphocytes (Bld) [#/Vol] 0.73 10*3/uL Low [facility] Lymphocytes/100 WBC (Bld) 15.6 % [facility] MCH (RBC) [Entitic mass] 28.4 pg 26.0 - 34.0 pg [facility] MCHC (RBC) [Mass/Vol] 31.4 g/dL 30.5 - 36.0 g/dL [facility] MCV (RBC) [Entitic vol] 90.4 fL 80.0 - 100.0 fL [facility] Monocytes (Bld) [#/Vol] 0.60 10*3/uL [facility] Monocytes/100 WBC (Bld) 12.8 % [facility] Neutrophils (Bld) [#/Vol] 3.04 10*3/uL [facility] Neutrophils/100 WBC (Bld) 65.2 % [facility] Nucleated RBC (Bld) [#/Vol] NINF [facility] Nucleated RBC/100 WBC (Bld) [Ratio] 0.0 % /100 WBC [facility] Platelet mean volume (Bld) [Entitic vol] 9.7 fL 9.0 - 12.7 fL [facility] Platelets (Bld) [#/Vol] 378 10*3/uL [facility] RBC (Bld) [#/Vol] 4.50 10*6/uL 3.90 - 5.2 0 m/uL [facility] WBC (Bld) [#/Vol] 4.67 10*3/uL [facility] Basophils (Bld) [#/Vol] 0.03 10*3/uL Normal <0.11 [facility] Comment on above: Order Comment: Speci men Type: BLOOD SPECIMEN Ordering Facility: [facility] Address: [address] [place] [address] Performed By: #### 3 016-3, 51319-4, 83188-3, LIPNF #### [facility] CLIA [id number] [address] [place] [address] [place] Basophils/100 WBC (Bld) 0.6 % Normal [facility] Comment on above: Order Comment: Speci men Type: BLOOD SPECIMEN Ordering Facility: [facility] Address: [address] [place] [address] Performed By: #### 3 016-3, 52687-2, 81037-4, LIPNF #### [facility] CLIA [id number] [address] [place] [address] [place] Differential cell count method Nom (Bld) Auto Normal [facility] Comment on above: Order Comment: Speci men Type: BLOOD SPECIMEN Ordering Facility: [facility] Address: [address] [place] [address] Performed By: #### 3 016-3, 22178-1, 65541-5, LIPNF #### [facility] CLIA [id number] [address] [place] [address] [place] Eosinophils (Bld) [#/Vol] 0.26 10*3/uL Normal <0.46 [facility] Comment on above: Order Comment: Speci men Type: BLOOD SPECIMEN Ordering Facility: [facility] Address: [address] [place] [address] Performed By: #### 3 016-3, 24857-5, 98781-0, LIPNF #### [facility] CLIA [id number] [address] [place] [address] [place] Eosinophils/100 WBC (Bld) 5.6 % Normal [facility] Comment on above: Order Comment: Speci men Type: BLOOD SPECIMEN Ordering Facility: [facility] Address: [address] [place] [address] Performed By: #### 3 016-3, 76146-9, 02283-8, LIPNF #### [facility] CLIA [id number] [address] [place] [address] [place] Erythrocyte distribution width (RBC) [Ratio] 14.6 % Normal 11.5-15.0 [facility] Comment on above: Order Comment: Speci men Type: BLOOD SPECIMEN Ordering Facility: [facility] Address: [address] [place] [address] Performed By: #### 3 016-3, 49001-3, 15375-5, LIPNF #### [facility] CLIA [id number] [address] [place] [address] [place] Hematocrit (Bld) [Volume fraction] 40.7 % Normal 36.0-46.0 [facility] Comment on above: Order Comment: Speci men Type: BLOOD SPECIMEN Ordering Facility: [facility] Address: [address] [place] [address] Performed By: #### 3 016-3, 18676-3, 13097-1, LIPNF #### [facility] CLIA [id number] [address] [place] [address] [place] Hemoglobin (Bld) [Mass/Vol] 12.8 g/dL Normal 11.5-15.5 [facility] Comment on above: Order Comment: Speci men Type: BLOOD SPECIMEN Ordering Facility: [facility] Address: [address] [place] [address] Performed By: #### 3 016-3, 66076-7, 96681-2, LIPNF #### [facility] CLIA [id number] [address] [place] [address] [place] Immature granulocytes (Bld) [#/Vol] 10*3/uL Normal <0.10 [facility] Comment on above: Order Comment: Speci men Type: BLOOD SPECIMEN Ordering Facility: [facility] Address: [address] [place] [address] Performed By: #### 3 016-3, 91759-9, 04747-8, LIPNF #### [facility] CLIA [id number] [address] [place] [address] [place] Immature granulocytes/100 WBC (Bld) 0.2 % Normal [facility] Comment on above: Order Comment: Speci men Type: BLOOD SPECIMEN Ordering Facility: [facility] Address: [address] [place] [address] Performed By: #### 3 016-3, 72903-2, 07871-1, LIPNF #### [facility] CLIA [id number] [address] [place] [address] [place] Lymphocytes (Bld) [#/Vol] 0.73 10*3/uL Low 1.00-4.00 [facility] Comment on above: Order Comment: Speci men Type: BLOOD SPECIMEN Ordering Facility: [facility] Address: [address] [place] [address] Performed By: #### 3 016-3, , 88332-8, LIPNF #### [facility] CLIA [id number] [address] [place] [address] [place] Lymphocytes/100 WBC (Bld) 15.6 % Normal [facility] Comment on above: Order Comment: Speci men Type: BLOOD SPECIMEN Ordering Facility: [facility] Address: [address] [place] [address] Performed By: #### 3 016-3, , , LIPNF #### [facility] CLIA [id number] [address] [place] [address] [place] MCH (RBC) [Entitic mass] 28.4 pg Normal 26.0-34.0 [facility] Comment on above: Order Comment: Speci men Type: BLOOD SPECIMEN Ordering Facility: [facility] Address: [address] [place] [address] Performed By: #### 3 016-3, , , LIPNF #### [facility] CLIA [id number] [address] [place] [address] [place] MCHC (RBC) [Mass/Vol] 31.4 g/dL Normal 30.5-36.0 [facility] Comment on above: Order Comment: Speci men Type: BLOOD SPECIMEN Ordering Facility: [facility] Address: [address] [place] [address] Performed By: #### 3 016-3, 16715-2, 90827-0, LIPNF #### [facility] CLIA [id number] [address] [place] [address] [place] MCV (RBC) [Entitic vol] 90.4 fL Normal 80.0-100.0 [facility] Comment on above: Order Comment: Speci men Type: BLOOD SPECIMEN Ordering Facility: [facility] Address: [address] [place] [address] Performed By: #### 3 016-3, 05841-1, 73295-6, LIPNF #### [facility] CLIA [id number] [address] [place] [address] [place] Monocytes (Bld) [#/Vol] 0.60 10*3/uL Normal <0.87 [facility] Comment on above: Order Comment: Speci men Type: BLOOD SPECIMEN Ordering Facility: [facility] Address: [address] [place] [address] Performed By: #### 3 016-3, , , LIPNF #### [facility] CLIA [id number] [address] [place] [address] [place] Monocytes/100 WBC (Bld) 12.8 % Normal [facility] Comment on above: Order Comment: Speci men Type: BLOOD SPECIMEN Ordering Facility: [facility] Address: [address] [place] [address] Performed By: #### 3 016-3, 20883-0, 56889-3, LIPNF #### [facility] CLIA [id number] [address] [place] [address] [place] Neutrophils (Bld) [#/Vol] 3.04 10*3/uL Normal 1.45-7.50 [facility] Comment on above: Order Comment: Speci men Type: BLOOD SPECIMEN Ordering Facility: [facility] Address: [address] [place] [address] Performed By: #### 3 016-3, , , LIPNF #### [facility] CLIA [id number] [address] [place] [address] [place] Neutrophils/100 WBC (Bld) 65.2 % Normal [facility] Comment on above: Order Comment: Speci men Type: BLOOD SPECIMEN Ordering Facility: [facility] Address: [address] [place] [address] Performed By: #### 3 016-3, , , LIPNF #### [facility] CLIA [id number] [address] [place] [address] [place] Nucleated RBC (Bld) [#/Vol] 10*3/uL Normal <0.01 [facility] Comment on above: Order Comment: Speci men Type: BLOOD SPECIMEN Ordering Facility: [facility] Address: [address] [place] [address] Performed By: #### 3 016-3, , , LIPNF #### [facility] CLIA [id number] [address] [place] [address] [place] Nucleated RBC/100 WBC (Bld) [Ratio] 0.0 /100 WBC Normal [facility] Comment on above: Order Comment: Speci men Type: BLOOD SPECIMEN Ordering Facility: [facility] Address: [address] [place] [address] Performed By: #### 3 016-3, , , LIPNF #### [facility] CLIA [id number] [address] [place] [address] [place] Platelet mean volume (Bld) [Entitic vol] 9.7 fL Normal 9.0-12.7 [facility] Comment on above: Order Comment: Speci men Type: BLOOD SPECIMEN Ordering Facility: [facility] Address: [address] [place] [address] Performed By: #### 3 016-3, , , LIPNF #### [facility] CLIA [id number] [address] [place] [address] [place] Platelets (Bld) [#/Vol] 378 10*3/uL Normal 150-400 [facility] Comment on above: Order Comment: Speci men Type: BLOOD SPECIMEN Ordering Facility: [facility] Address: [address] [place] [address] Performed By: #### 3 016-3, , , LIPNF #### [facility] CLIA [id number] [address] [place] [address] [place] RBC (Bld) [#/Vol] 4.50 10*6/uL Normal 3.90-5.20 [facility] Comment on above: Order Comment: Speci men Type: BLOOD SPECIMEN Ordering Facility: [facility] Address: [address] [place] [address] Performed By: #### 3 016-3, , , LIPNF #### [facility] CLIA [id number] [address] [place] [address] [place] WBC (Bld) [#/Vol] 4.67 10*3/uL Normal 3.70-11.00 [facility] Comment on above: Order Comment: Speci men Type: BLOOD SPECIMEN Ordering Facility: [facility] Address: [address] [place] [address] Performed By: #### 3 016-3, , , LIPNF #### [facility] CLIA [id number] [address] [place] [address] [place] CNOVon 11-23-2024 CNOV Office Visit (FAMPWS ) SACHI GRACE ([id number]) 1935 F NFR Date Time Provider Department 11/23/24 11:20 AM ANITRA MANCERA During your visit today, we recorded the following information about you: Temperature Pulse Blood pressure Weight 97.9 degrees 72/minute 114/68 57.6 kg Anitra Mancera, [employer] 11/23/2024 11:57 AM Signed This is a 89 year old female who presents today with: Patient presents with: Abdominal Pain: Abdominal pain for 1 week, nausea since Saturday. Dark stools HISTORY OF PRESENT ILLNESS: Sachi Grace is a 89 year old female. Patient presents with: Abdominal Pain: Abdominal pain for 1 week, nausea since Saturday. Dark stools Epigastric pain. Belching often. Ulcer in 1984. Took a dose of pepto-bismol last night and stool darker than usual this morning. Epigstric pain increases after she eats. Pain started over a week ago. No fever, but chills No vomiting. No dyspnea. Feet are numb. 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 Dupree-every 6 months Gout, unspecified late great toe, several episodes Hypothyroidism, unspecified Multinodular goiter Dr Boateng Osteoarthritis of both knees Other and unspecified hyperlipidemia diet therapy as of 03/08 Paroxysmal supraventricular tachycardia (HCC) ablation 01/2002 ( in [place], [facility]), follows with Dr. Moreno (prn only) RLS (restless legs syndrome) Tinnitus, unspecified ear Unspecified constipation PAST SURGICAL HISTORY Procedure Laterality Date APPENDECTOMY ARTHRP KNE CONDYLEANDPLATU MEDIALANDLAT COMPARTMENTS 2012 Knee replacement, total bilateral CARPAL TUNNEL 2005 bilateral COLONOSCOPY FLX DX W/COLLJ SPEC WHEN PFRMD 12/14/2002 Colonoscopy COLONOSCOPY FLX DX W/COLLJ SPEC WHEN PFRMD 06/10/2007 COLONOSCOPY FLX DX W/COLLJ SPEC WHEN PFRMD 08/04/2013 Colonoscopy COLONOSCOPY FLX DX W/COLLJ SPEC WHEN PFRMD 10/14/2018 [facility]-R. Cebul-Repeat 5 years COLONOSCOPY SCREENING 11/15/2023 R Cebul no repeat due to age CORRECT BUNION,SIMPLE left ECHOCARDIOGRAM 10/18/2017 EGD 1985 bleeding ulcer EPS: SVT/VT ABLATION 2001 [facility] ESOPHAGOGASTRODUODENOSCOPY TRANSORAL DIAGNOSTIC 03/24/2018 EGD HERNIA REPAIR HX 09/2020 ventral hernia repair HOLTER 24 HR 10/2017 LOOP RECORDER IMPLANT 01/23/2018 NASAL/SINUS ENDOSCOPY WITH SPHENOIDOTOMY Bilateral 05/15/2019 Dr. Ruffin NASAL/SINUS ENDOSCPY W/MAXILL ANTROSTOMY Bilateral 05/15/2019 Dr. Ruffin NASAL/SINUS ENDOSCPY W/TOTAL ETHMOIDECTOMY Bilateral 05/15/2019 Dr. Ruffin OPEN REPAIR OF ROTATOR CUFF ACUTE 04/2005 Dr. Mejias PAST SURGICAL HISTORY OF 10/1997 partial colectomy ([place], [facility]) PAST SURGICAL HISTORY OF 2011 nerves cut in my back STEREO LOC FOR CORE BRST BX LT 04/24/2010 left STRESS TEST 12/17/2017 TONSILLECTOMY PRIMARY/SECONDARY ALLERGIES Vicodin [Hydrocodone-Acetaminophen], Buspirone, Cocamidopropyl Betaine, Codeine, Percocet [Oxycodone-Acetaminophen], Sulfa (Sulfonamide Antibiotics), and Tetracycline MEDICATIONS Current Outpatient Medications Medication Sig nortriptyline (PAMELOR) 10 mg capsule Take 20 mg by mouth daily at bedtime. rOPINIRole (REQUIP) 0.5 mg tablet Take 1.5 tablets by mouth daily at bedtime. Vit B Complex 100 Combo No.2 (B-100 COMPLEX) 100 mg TbER Take 1 tablet by mouth once daily. levothyroxine (SYNTHROID) 50 mcg tablet Take 50 mcg by mouth. Take 50 mcg on Saturday, and 75 mcg all other days of the week, per ENDO MEDICATION, NON-DATABASE CBD oil fluticasone propionate (ARMONAIR DIGIHALER) 232 mcg/actuation inhaler Inhale 1 Puff as instructed two times a day. levalbuterol tartrate HFA 45 mcg/actuation inhaler Inhale 1-2 Puffs as instructed every 4 hours as needed for wheezing/shortness of breath. Cholecalciferol, Vitamin D3, (VITAMIN D) 25 mcg (1,000 unit) cap Take 1,000 Units by mouth once daily. clonazePAM (KLONOPIN) 0.5 mg tablet Take 0.5 mg by mouth at bedtime as needed. Dr Dupree vit A,C,M-Jrbi-Atdcbe (PRESERVISION AREDS) 7,160-113-100 nyhe-dj-weyc tab Take by mouth. ACETAMINOPHEN 500 MG TAB Take one(1) tablet every four(4) to six(6) hours as needed for pain. gabapentin (NEURONTIN) 100 mg capsule Take 1 capsule by mouth three times a day for 180 days. (Patient not taking: Reported on 11/23/2024) No current facility-administered medications for this visit. FAMILY HISTORY Problem Relation Age of Onset Heart Mother rheumatic; 73 Colon Cancer Father dx'd age 50's Coronary Artery Diseas (more content not included)... Normal [facility] H. pylori IgG IA Qlon 2023 H. PYLORI IGG, QUAL Positive Abnormal Negative [facility] Comment on above: Order Comment: Speci stanislav Type: BLOOD SPECIMEN Ordering Facility: [facility] Address: [address] [place] [address] Result Comment: The result suggests recent or past infection with H. pylori. Clinical correlation is required. Where clinically warranted, follow up testing is suggested including Urea Breath Test or H. pylori stool antigen test. Performed By: #### 3 016-3, 59956-5, 38169-1, LIPNF #### [facility] CLIA [id number] [address] [place], [place] [address] [address] [place] Iron and Iron binding capaci ty panelon 11-23-2024 Iron [Mass/Vol] 46 ug/dL Normal 41-186 [facility] Comment on above: Order Comment: Pearl colorado Type: BLOOD SPECIMEN Ordering Facility: [facility] Address: [address] [place] [address] Performed By: #### 3 016-3, 83719-0, 84895-7, LIPNF #### [facility] CLIA [id number] [address] [place] [address] [place] Iron binding capacity [Mass/Vol] 264 ug/dL Normal 232-386 [facility] Comment on above: Order Comment: Speci men Type: BLOOD SPECIMEN Ordering Facility: [facility] Address: [address] [place] [address] Performed By: #### 3 016-3, 77205-2, 72011-0, LIPNF #### [facility] CLIA [id number] [address] [place] [address] [place] Iron/TIBC [Molar ratio] 17.4 % Normal 15.0-57.0 [facility] Comment on above: Order Comment: Speci men Type: BLOOD SPECIMEN Ordering Facility: [facility] Address: [address] [place] [address] Performed By: #### 3 016-3, 62745-1, 09714-2, LIPNF #### [facility] CLIA [id number] [address] [place] [address] [place] Lipase SerPl-cCncon 11-23-20 24 Lipase [Catalytic activity/Vol] 23 U/L Normal 16-61 [facility] Comment on above: Order Comment: Speci men Type: BLOOD SPECIMEN Ordering Facility: [facility] Address: [address] [place] [address] Performed By: #### 3 016-3, 86304-7, 48741-7, LIPNF #### [facility] CLIA [id number] [address] [place] [address] [place] XR KNEE 4V AP/PA/LAT/MERCH B ILon 11-23-2024 XR KNEE 4V AP/PA/LAT/MERCH JENNIFER * * *Final Report* * * DATE OF EXAM: Nov 23 2024 12:45PM WOX [id number] - XR KNEE 4V AP/PA/LAT/MERCH JENNIFER / PROCEDURE REASON: multiple diagnoses * * * * Physician Interpretation * * * * EXAMINATION / TECHNIQUE: XR KNEE 4V AP/PA/LAT/MERCH JENNIFER HISTORY: Pt. states bilat knee pain. No injury. Pain in both knees, unspecified chronicity Pain in both knees, unspecified chronicity . COMPARISON: None RESULT: Right knee: Total knee arthroplasty with satisfactory alignment. No hardware migration or significant perihardware lucency. Possible thinning of the polyethylene spacer. No significant joint effusion. Vascular calcifications of the leg. Left knee: Total knee arthroplasty with satisfactory alignment. No hardware migration or significant perihardware lucency. No significant joint effusion. Vascular calcifications of the leg. IMPRESSION: Right knee: Possible thinning of the polyethylene spacer of the right knee arthroplasty. Further workup as clinically warranted. Left knee: Total arthroplasty without radiographic evidence of complication. Horse Racer: PSCB Transcribe Date/Time: Nov 29 2024 4:53P Dictated by : LEANA CONTRERAS MD This examination was interpreted and the report reviewed and electronically signed by: LEANA CONTRERAS MD on Nov 29 2024 4:59PM EST [id number] Normal [facility] 11[facility]11[facility]20[facility] SACHI GRACE ([id number]) 1935 F NFR Date Time Provider Department 11/11/24 ANITRA MANCERA [facility] During your visit today, we recorded the following information about you: Skylar Spears LPN 11/11/2024 8:51 AM Signed 1)FYI: Pt wanted you to know last week pt's Nortriptyline was increased to 50 mg at bed time. Pt felt this was to much so last Saturday she took 30 mg and also on Saturday she took 30 mg and had to get up during the night and passed out. Pt reports she stopped the Nortriptyline and just taking the Gabapentin and doing fine. 2) Pt requesting a referral to Endocrinolgy. She has a doctor she sees in [place] and has an apt today. Pt will keep this apt but with her age she does not want to continue to travel to [place] and wants to go to Dr. Dempsey. Please review and approve referral, then contact pt back and help her get an apt . Skylar Spears, Anitra Xiao APRN.RUSTY 11/12/2024 7:59 AM Signed Order placed for endo Please facilitate Allergies As of Date: 11/11/2024 Noted Allergy Reaction VICODIN (HYDROCODONE-ACETAMINOPHE*01/2013 8 - GI Upset BUSPIRONE 04/21/2024 5 - Intolerance Comments: Anxious, jittery, felt worse, RLS worse. COCAMIDOPROPYL BETAINE 07/27/2020 2 - Rash Comments: itching, rash CODEINE 03/19/2007 8 - GI Upset PERCOCET (OXYCODONE-ACETAMINOPHEN)04/02 8 - GI Upset SULFA (SULFONAMIDE ANTIBIOTICS) 03/19/2007 4 - Hives 7 - Swelling Comments: lips swelled up TETRACYCLINE 04/29/2019 8 - GI Upset Date Reviewed: 11/03/2024 Reviewed by: Anitra Mancera APRN.AUTOMOBILE RENTAL AGENT - Fully Assessed Reason for Visit: Referral Request [124] Primary Visit Diagnosis:Hypothyroidism, acquired [E03.9] Order(s):CONSULT TO ENDOCRINOLOGY [9007] Order #: [id number]: 1 FUTURE Prescriptions as of 11/16/2024 - rOPINIRole (REQUIP) 0.5 mg tablet Take 1.5 tablets by mouth daily at bedtime. - gabapentin (NEURONTIN) 100 mg capsule Take 1 capsule by mouth three times a day for 180 days. - Vit B Complex 100 Combo No.2 (B-100 COMPLEX) 100 mg TbER Take 1 tablet by mouth once daily. - levothyroxine (SYNTHROID) 50 mcg tablet Take 50 mcg by mouth. Take 50 mcg on Saturday, and 75 mcg all other days of the week, per ENDO - MEDICATION, NON-DATABASE CBD oil - fluticasone propionate (ARMONAIR DIGIHALER) 232 mcg/actuation inhaler Inhale 1 Puff as instructed two times a day. - levalbuterol tartrate HFA 45 mcg/actuation inhaler Inhale 1-2 Puffs as instructed every 4 hours as needed for wheezing/shortness of breath. - Cholecalciferol, Vitamin D3, (VITAMIN D) 25 mcg (1,000 unit) cap Take 1,000 Units by mouth once daily. - clonazePAM (KLONOPIN) 0.5 mg tablet Take 0.5 mg by mouth at bedtime as needed. Dr Dupree - vit A,C,I-Bztj-Xddvgv (PRESERVISION AREDS) 7,160-113-100 vdce-ub-umto tab Take by mouth. - ACETAMINOPHEN 500 MG TAB Take one(1) tablet every four(4) to six(6) hours as needed for pain. Problem List As Of Date 11/11/2024 Noted Resolved Unspecified constipation [K59.00] 04/30/2006 03/16/2016 PEPTIC ULCER NOS [K27.9] 03/19/2007 GENERALIZED ANXIETY DIS [F41.1] Generalized osteoarthrosis, unspecified site [M* 12/23/2015 Myalgia and myositis [[id number]] 05/22/2017 Diverticulosis of large intestine [K57.30] Disorder of bone and cartilage [M89.9, M94.9] Hypothyroidism [E03.9] Hyperlipidemia LDL goal <130 [E78.5] Gout, unspecified [M10.9] 12/23/2015 PEPTIC ULCER NOS [K27.9] 03/19/2007 PAROX ATRIAL TACHYCARDIA [I47.10] 03/19/2007 Disturbances of sensation of smell and taste [R*02/13/2008 05/22/2017 Chronic maxillary sinusitis [J32.0] 02/13/2008 05/22/2017 Meniere's disease, unspecified [H81.09] 05/20/2008 03/16/2016 Dizziness and giddiness [R42] 05/13/2009 12/23/2015 Cervicalgia [M54.2] 05/13/2009 12/23/2015 Osteoarthritis of both knees [M17.0] Multinodular goiter [E04.2] Syncope and collapse [R55] 04/30/2014 12/23/2015 History of knee replacement, total [Z96.659] 12/23/2015 Ageusia [R43.2] 02/23/2016 05/22/2017 Glossitis [K14.0] 02/23/2016 05/22/2017 Mild intermittent asthma without complication [*03/16/2016 Paroxysmal supraventricular tachycardia (HCC) [* Nausea [R11.0] 03/20/2018 04/29/2019 Hernia of anterior abdominal wall [K43.9] 04/18/2020 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] 04/18/2020 BPPV (benign paroxysmal positional vertigo), un*04/22/2020 Itching [L29.9] 07/27/2020 Orthostatic syncope [I95.1] 07/27/2020 RLS (restless legs syndrome) [G25.81] Asthma [J45.909] Benzodiazepine dependence (HCC) [F13.20] 05/29/2023 Anxiety [F41.9] 01/01/2024 Diagnosed: 01/01/2024 Chronic ethmoidal sinusitis [J32.2] 01/01/2024 Diagnosed: 01/01/2024 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*05/27/2012 Diagnosed: 01/01/2024 Disorder of bursae of shoulder region [M71.9] 01/24/2012 Diagnosed: 01/01/2024 Encounter for pre-ope (more content not included)... Normal [facility] 11-10-2024 [facility] Tele[facility] ([facility]) SACHI GRACE ([id number]) 1935 F NFR Date Time Provider Department 11/10/24 [facility] During your visit today, we recorded the following information about you: Grupo Cervantes MA 11/10/2024 2:36 PM Signed Scan on 11/10/2024 10:26 AM by Provider, External, PABarbC: Mammography Anitra Mancera APRN.[facility] 11/10/2024 2:44 PM Signed Please let pt. Know that mammogram was negative. Recheck in 1 year. Alix Garcia RN 11/10/2024 3:45 PM Signed Called and left a voicemail for the Patient to call back and ask for a nurse to receive the providers message. YARY Moreno Laurie Lynn, LPN 11/11/2024 8:35 AM Signed Spoke with pt and information listed below given. Pt verbalizes understanding. Skylar Speasr LPN Allergies As of Date: 11/10/2024 Noted Allergy Reaction VICODIN (HYDROCODONE-ACETAMINOPHE*01/2013 8 - GI Upset BUSPIRONE 04/21/2024 5 - Intolerance Comments: Anxious, jittery, felt worse, RLS worse. COCAMIDOPROPYL BETAINE 07/27/2020 2 - Rash Comments: itching, rash CODEINE 03/19/2007 8 - GI Upset PERCOCET (OXYCODONE-ACETAMINOPHEN)04/02 8 - GI Upset SULFA (SULFONAMIDE ANTIBIOTICS) 03/19/2007 4 - Hives 7 - Swelling Comments: lips swelled up TETRACYCLINE 04/29/2019 8 - GI Upset Date Reviewed: 11/03/2024 Reviewed by: Anitra Mancera APRN.AUTOMOBILE RENTAL AGENT - Fully Assessed Reason for Visit: Results [95] Prescriptions as of 11/11/2024 - gabapentin (NEURONTIN) 100 mg capsule Take 1 capsule by mouth three times a day for 180 days. - Vit B Complex 100 Combo No.2 (B-100 COMPLEX) 100 mg TbER Take 1 tablet by mouth once daily. - levothyroxine (SYNTHROID) 50 mcg tablet Take 50 mcg by mouth. Take 50 mcg on Saturday, and 75 mcg all other days of the week, per ENDO - rOPINIRole (REQUIP) 0.5 mg tablet Take 1.5 tablets by mouth daily at bedtime. - MEDICATION, NON-DATABASE CBD oil - fluticasone propionate (ARMONAIR DIGIHALER) 232 mcg/actuation inhaler Inhale 1 Puff as instructed two times a day. - levalbuterol tartrate HFA 45 mcg/actuation inhaler Inhale 1-2 Puffs as instructed every 4 hours as needed for wheezing/shortness of breath. - nortriptyline (PAMELOR) 10 mg capsule Take 20 mg by mouth daily at bedtime. - Cholecalciferol, Vitamin D3, (VITAMIN D) 25 mcg (1,000 unit) cap Take 1,000 Units by mouth once daily. - clonazePAM (KLONOPIN) 0.5 mg tablet Take 0.5 mg by mouth at bedtime as needed. Dr Dupree - vit A,C,Z-Nwwv-Keogia (PRESERVISION AREDS) 7,160-113-100 fwhk-je-xvnw tab Take by mouth. - ACETAMINOPHEN 500 MG TAB Take one(1) tablet every four(4) to six(6) hours as needed for pain. Problem List As Of Date 11/10/2024 Noted Resolved Unspecified constipation [K59.00] 04/30/2006 03/16/2016 PEPTIC ULCER NOS [K27.9] 03/19/2007 GENERALIZED ANXIETY DIS [F41.1] Generalized osteoarthrosis, unspecified site [M* 12/23/2015 Myalgia and myositis [[id number]] 05/22/2017 Diverticulosis of large intestine [K57.30] Disorder of bone and cartilage [M89.9, M94.9] Hypothyroidism [E03.9] Hyperlipidemia LDL goal <130 [E78.5] Gout, unspecified [M10.9] 12/23/2015 PEPTIC ULCER NOS [K27.9] 03/19/2007 PAROX ATRIAL TACHYCARDIA [I47.10] 03/19/2007 Disturbances of sensation of smell and taste [R*02/13/2008 05/22/2017 Chronic maxillary sinusitis [J32.0] 02/13/2008 05/22/2017 Meniere's disease, unspecified [H81.09] 05/20/2008 03/16/2016 Dizziness and giddiness [R42] 05/13/2009 12/23/2015 Cervicalgia [M54.2] 05/13/2009 12/23/2015 Osteoarthritis of both knees [M17.0] Multinodular goiter [E04.2] Syncope and collapse [R55] 04/30/2014 12/23/2015 History of knee replacement, total [Z96.659] 12/23/2015 Ageusia [R43.2] 02/23/2016 05/22/2017 Glossitis [K14.0] 02/23/2016 05/22/2017 Mild intermittent asthma without complication [*03/16/2016 Paroxysmal supraventricular tachycardia (HCC) [* Nausea [R11.0] 03/20/2018 04/29/2019 Hernia of anterior abdominal wall [K43.9] 04/18/2020 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] 04/18/2020 BPPV (benign paroxysmal positional vertigo), un*04/22/2020 Itching [L29.9] 07/27/2020 Orthostatic syncope [I95.1] 07/27/2020 RLS (restless legs syndrome) [G25.81] Asthma [J45.909] Benzodiazepine dependence (HCC) [F13.20] 05/29/2023 Anxiety [F41.9] 01/01/2024 Diagnosed: 01/01/2024 Chronic ethmoidal sinusitis [J32.2] 01/01/2024 Diagnosed: 01/01/2024 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*05/27/2012 Diagnosed: 01/01/2024 Disorder of bursae of shoulder region [M71.9] 01/24/2012 Diagnosed: 01/01/2024 Encounter for pre-operative examination [Z01.81*01/01/2024 Diagnosed: 01/01/2024 Family history of malignant neoplasm of colon [*10/08/2023 Diagnosed: 01/01/2024 History of appendectomy [Z90.49] 01/01/2024 Diagnosed: 01/01/2024 Hernia [K46.9] 01/01/2024 Diagnosed: 01/01/2024 History of partial surgical (more content not included)... Normal [facility] MR/BMS.BPon 11-10-2024 MR/BMS.BP [address], [address] [place] [id number] OFFICE VISIT Date of Service: 11/10/24 MR#: [id number] Acct: [id number] Name: SACHI GRACE Rep #: [id number] : 1935 Provider: Dr. Hugh Moss se, DO Age/Sex: 89/F [place] [facility] [place] Status: Signed Intake Vital Signs 03/31/24 09:51 11/10/24 15:33 Height 5 ft 8 in 5 ft 8 in BP 139/81 H Blood Pressure Location Rt brachial Position Sitting Respiration 18 Pulse 84 Pulse Source Monitor BP Intake Visit Reasons: follow up Accompanied by: Self Allergies cocamidopropyl betaine Allergy (Intermediate, Verified 11/10/24 15:35) Rash Sulfa (Sulfonamide Antibiotics) Allergy (Verified 11/10/24 15:35) Swelling Environmental Allergies: Uncoded (dust) Adverse Reaction (Severe, Verified 11/10/24 15:35) NEEDS FOLLOW-UP mold Adverse Reaction (Severe, Verified 11/10/24 15:35) NEEDS FOLLOW-UP metoprolol Adverse Reaction (Intermediate, Verified 11/10/24 15:35) I feel awful codeine Adverse Reaction (Verified 11/10/24 15:35) Nausea diphenhydramine (From Benadryl) Adverse Reaction (Verified 11/10/24 15:35) Nausea hydrocodone bitartrate (From Vicodin) Adverse Reaction (Verified 11/10/24 15:35) Nausea oxycodone HCl (From Percocet) Adverse Reaction (Verified 11/10/24 15:35) Nausea tetracycline Adverse Reaction (Verified 11/10/24 15:35) Nausea/Vom/Diarrhea Medications ???Medication ???Instructions ???Recorded ???Confirmed ???Type albuterol sulfate 90 mcg/actuation 1 puff inhalation Q4H PRN PRN 05/09/14 11/10/24 History aerosol inhaler Wheezing vit C 250 mg-vit E 90 mg-zinc 40 1 tab PO BID 11/22/17 03/03/24 History mg-copper 1 uj-xgkzmp-soywzr capsule (PreserVision AREDS-2) polyethylene glycol 3350 17 17 g PO QDAY PRN Constipation 01/31/18 03/03/24 History gram/dose oral powder (Miralax) acetaminophen 325 mg tablet 500 mg (1.5385 x 325 mg) PO Q4H 05/15/19 11/10/24 Rx PRN PRN Mild-Moderate Pain (1-5/10) levothyroxine 50 mcg tablet 50 mcg PO DAILY 09/22/20 11/10/24 History ropinirole 0.5 mg tablet 0.75 mg PO DAILY 11/11/23 11/10/24 History nortriptyline 10 mg capsule 10 mg PO BID #120 caps 09/24/24 11/10/24 Rx CBD Oral (INFORMATIONAL USE 11/10/24 11/10/24 History ONLY-PT USES ORAL CBD) clonazepam 0.5 mg tablet 0.5 mg PO QHS #30 tabs 11/10/24 11/10/24 Rx gabapentin 100 mg capsule 100 mg PO TID 11/10/24 11/10/24 History Have you fallen in the past year?: Yes PFSH Medical History Arthritis Asthma Chest discomfort Chronic ethmoidal sinusitis Chronic maxillary sinusitis Chronic sphenoidal sinusitis Decreased sense of taste Family history of colon cancer in father Fibromyalgia History of diverticulitis History of ulceration Hyperlipidemia Hypothyroidism Medication monitoring encounter Mixed hyperlipidemia Palpitations Panic disorder Pre-op evaluation PSVT (paroxysmal supraventricular tachycardia) Syncope and collapse Ventral incisional hernia without obstruction or gangrene Wears partial dentures Surgical History H/O prior ablation treatment History of appendectomy History of bilateral knee replacement History of loop recorder History of tonsillectomy Hx of rotator cuff surgery S/P carpal tunnel release S/P partial colectomy S/P ventral herniorrhaphy Family History Father Colon cancer CAD (coronary artery disease) Mother CAD (coronary artery disease) Sister CVA (cerebral vascular accident) Brother Cancer Lung cancer Social History household members: spouse Smoking Status: Never smoker alcohol intake: never substance use type: does not use caffeine: No what type of physical activity do you participate in: bicycling frequency: daily duration: 15-30 minutes/day seatbelt use: always do you feel safe at home: Yes HPI History of Present Illness History provided by: patient HPI: Sachi Grace is an 89 year old female who presents today for follow up evaluation. Patient reports that she has gone to a lot of doctor's appointments since June. 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 Feels like the roof of her mouth hurts and her tongue is tender. Feels like this is all the time, and thinks that this is related to lip resection. Recently her PA increased her nortriptyline from 20 mg to 50 mg. Sachi thought that this was too much of an increase in her mind so only took 30 mg. With the increased dose she was dizzy and even had an episode of reported syncope. Now has (more content not included)... Normal [facility] SCRN MAMM (CAD)W/DRISS BILATo n 11-10-2024 SCRN MAMM (CAD)W/DRISS BILAT [facility] Imaging Services [address] [place] [address] SCRN MAMM (CAD)W/DRISS BILAT MR#: [id number] Acct: [id number] Name: SACHI GRACE Rep #: [id number] : 1935 F 89 From: Simeon castellanos MD PCP: JOSE tSreeter Status: [facility] Study: SCRN MAMM (CAD)W/DRISS BILAT Date of Exam: 11/01 Exam# [id number] Ordering Dr: Anitra Mancera [id number] MAMMOGRAPHY - BILATERAL SCREENING REASON FOR EXAM: Female, 89 years old. Routine annual screening examination. PERTINENT HISTORY: Grandmother with breast cancer. Prior left stereotactic breast biopsy. TECHNIQUE: Digital bilateral breast driss (3D mammographic acquisition) in the CC and MLO projections. 2-D mediolateral oblique (MLO) and craniocaudad (CC) views of both breasts were obtained. CAD: Full Field Digital Mammography with Computer Added Detection was performed. COMPARISON: Comparison is made with prior study dated November 08, 2023 and November 07, 2022. FINDINGS: Breast Composition: The breasts are almost entirely fatty. There are no dominant masses or suspicious calcifications. Stable asymmetry of breast tissue with more breast tissue is seen in the retroareolar region of the right breast as compared to the left side. A tissue clip marker is seen along the anterior slightly upper lateral aspect of the left breast. A loop recorder device is once again seen overlying the inferior medial aspect of the left breast. No other significant abnormalities are identified. There has been no significant change since the prior study. BI/SCRN MAMM (CAD)W/DRISS BILAT IMPRESSION: Stable bilateral screening mammogram. Yearly follow-up mammogram recommended. (A) ASSESSMENT CATEGORY: BIRADS Category 2: Benign. A letter regarding these results will be sent to the patient by the facility within 30 days. Approximately 10% of breast cancers are not detected by mammography. A normal mammogram should not delay biopsy of a clinically suspicious abnormality. [id number] Electronically Signed: Simeon Tipton MD at 10:19 EST , CC: LEXIE Mancera; JOSE Streeter Horse Racer: Signed Normal [facility] 11-05-2024 [facility] Telephone (FAMP[facility]) SACHI GRACE ([id number]) 1935 F NFR Date Time Provider Department 11/05/24 ANITRA MANCERA During your visit today, we recorded the following information about you: Bridgette Shaw 11/05/2024 10:13 AM Signed Patient calling wanting to make sure that the TSH, CMP, and Vitamin D lab results have been sent to Dr. Angulo. External order in scanned docs from 11/03/24. Zulma Benites MA 11/05/2024 11:04 AM Signed Unsure how to check. I can see order was scanned. I just faxed results to provider. Zulma Benites MA November 05, 2024 11:04 AM Allergies As of Date: 11/05/2024 Noted Allergy Reaction VICODIN (HYDROCODONE-ACETAMINOPHE*01/2013 8 - GI Upset BUSPIRONE 04/21/2024 5 - Intolerance Comments: Anxious, jittery, felt worse, RLS worse. COCAMIDOPROPYL BETAINE 07/27/2020 2 - Rash Comments: itching, rash CODEINE 03/19/2007 8 - GI Upset PERCOCET (OXYCODONE-ACETAMINOPHEN)04/02 8 - GI Upset SULFA (SULFONAMIDE ANTIBIOTICS) 03/19/2007 4 - Hives 7 - Swelling Comments: lips swelled up TETRACYCLINE 04/29/2019 8 - GI Upset Date Reviewed: 11/03/2024 Reviewed by: Anitra Mancera APRN.AUTOMOBILE RENTAL AGENT - Fully Assessed Reason for Visit: Release Of Medical Records [2017] Cmt: Lab Results Prescriptions as of 11/05/2024 - Vit B Complex 100 Combo No.2 (B-100 COMPLEX) 100 mg TbER Take 1 tablet by mouth once daily. - levothyroxine (SYNTHROID) 50 mcg tablet Take 50 mcg by mouth. Take 50 mcg on Saturday, and 75 mcg all other days of the week, per ENDO - rOPINIRole (REQUIP) 0.5 mg tablet Take 1.5 tablets by mouth daily at bedtime. - MEDICATION, NON-DATABASE CBD oil - fluticasone propionate (ARMONAIR DIGIHALER) 232 mcg/actuation inhaler Inhale 1 Puff as instructed two times a day. - levalbuterol tartrate HFA 45 mcg/actuation inhaler Inhale 1-2 Puffs as instructed every 4 hours as needed for wheezing/shortness of breath. - nortriptyline (PAMELOR) 10 mg capsule Take 20 mg by mouth daily at bedtime. - Cholecalciferol, Vitamin D3, (VITAMIN D) 25 mcg (1,000 unit) cap Take 1,000 Units by mouth once daily. - clonazePAM (KLONOPIN) 0.5 mg tablet Take 0.5 mg by mouth at bedtime as needed. Dr Joon Day vit A,C,D-Itqw-Penefx (PRESERVISION AREDS) 7,160-113-100 vsbv-gc-jnym tab Take by mouth. - ACETAMINOPHEN 500 MG TAB Take one(1) tablet every four(4) to six(6) hours as needed for pain. Problem List As Of Date 11/05/2024 Noted Resolved Unspecified constipation [K59.00] 04/30/2006 03/16/2016 PEPTIC ULCER NOS [K27.9] 03/19/2007 GENERALIZED ANXIETY DIS [F41.1] Generalized osteoarthrosis, unspecified site [M* 12/23/2015 Myalgia and myositis [[id number]] 05/22/2017 Diverticulosis of large intestine [K57.30] Disorder of bone and cartilage [M89.9, M94.9] Hypothyroidism [E03.9] Hyperlipidemia LDL goal <130 [E78.5] Gout, unspecified [M10.9] 12/23/2015 PEPTIC ULCER NOS [K27.9] 03/19/2007 PAROX ATRIAL TACHYCARDIA [I47.10] 03/19/2007 Disturbances of sensation of smell and taste [R*02/13/2008 05/22/2017 Chronic maxillary sinusitis [J32.0] 02/13/2008 05/22/2017 Meniere's disease, unspecified [H81.09] 05/20/2008 03/16/2016 Dizziness and giddiness [R42] 05/13/2009 12/23/2015 Cervicalgia [M54.2] 05/13/2009 12/23/2015 Osteoarthritis of both knees [M17.0] Multinodular goiter [E04.2] Syncope and collapse [R55] 04/30/2014 12/23/2015 History of knee replacement, total [Z96.659] 12/23/2015 Ageusia [R43.2] 02/23/2016 05/22/2017 Glossitis [K14.0] 02/23/2016 05/22/2017 Mild intermittent asthma without complication [*03/16/2016 Paroxysmal supraventricular tachycardia (HCC) [* Nausea [R11.0] 03/20/2018 04/29/2019 Hernia of anterior abdominal wall [K43.9] 04/18/2020 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] 04/18/2020 BPPV (benign paroxysmal positional vertigo), un*04/22/2020 Itching [L29.9] 07/27/2020 Orthostatic syncope [I95.1] 07/27/2020 RLS (restless legs syndrome) [G25.81] Asthma [J45.909] Benzodiazepine dependence (HCC) [F13.20] 05/29/2023 Anxiety [F41.9] 01/01/2024 Diagnosed: 01/01/2024 Chronic ethmoidal sinusitis [J32.2] 01/01/2024 Diagnosed: 01/01/2024 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*05/27/2012 Diagnosed: 01/01/2024 Disorder of bursae of shoulder region [M71.9] 01/24/2012 Diagnosed: 01/01/2024 Encounter for pre-operative examination [Z01.81*01/01/2024 Diagnosed: 01/01/2024 Family history of malignant neoplasm of colon [*10/08/2023 Diagnosed: 01/01/2024 History of appendectomy [Z90.49] 01/01/2024 Diagnosed: 01/01/2024 Hernia [K46.9] 01/01/2024 Diagnosed: 01/01/2024 History of partial surgical removal of colon [Z*10/08/2023 Diagnosed: 01/01/2024 Low back pain [M54.50] 09/18/2011 Diagnosed: 01/01/2024 Lumbosacral spondylosis without myelopathy [M47*11/01/2011 Diagnosed: 01/01/2024 Neurological deficit present [R29.818] 01/01/2024 Diagnosed: 01/01/20 (more content not included)... Normal [facility] Telephone (FAMPWS) SACHI GRACE ([id number]) 1935 F NFR Date Time Provider Department 11/05/24 ANITRA MANCERA During your visit today, we recorded the following information about you: Emi Santiago 11/05/2024 11:44 AM Signed Patient is requesting medication that is : Patient last seen: 11-03-24 Future visit scheduled: yes PHARMACY: Sherrell/Anitra Navarro APRN.CNP 11/05/2024 3:53 PM Signed Sent Allergies As of Date: 11/05/2024 Noted Allergy Reaction VICODIN (HYDROCODONE-ACETAMINOPHE*01/2013 8 - GI Upset BUSPIRONE 04/21/2024 5 - Intolerance Comments: Anxious, jittery, felt worse, RLS worse. 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 - Vit B Complex 100 Combo No.2 (B-100 COMPLEX) 100 mg TbER Take 1 tablet by mouth once daily. - levothyroxine (SYNTHROID) 50 mcg tablet Take 50 mcg by mouth. Take 50 mcg on Saturday, and 75 mcg all other days of the week, per ENDO - rOPINIRole (REQUIP) 0.5 mg tablet Take 1.5 tablets by mouth daily at bedtime. - MEDICATION, NON-DATABASE CBD oil - fluticasone propionate (ARMONAIR DIGIHALER) 232 mcg/actuation inhaler Inhale 1 Puff as instructed two times a day. - levalbuterol tartrate HFA 45 mcg/actuation inhaler Inhale 1-2 Puffs as instructed every 4 hours as needed for wheezing/shortness of breath. - nortriptyline (PAMELOR) 10 mg capsule Take 20 mg by mouth daily at bedtime. - Cholecalciferol, Vitamin D3, (VITAMIN D) 25 mcg (1,000 unit) cap Take 1,000 Units by mouth once daily. - clonazePAM (KLONOPIN) 0.5 mg tablet Take 0.5 mg by mouth at bedtime as needed. Dr Dupree - vit A,C,O-Uhyo-Lhuijk (PRESERVISION AREDS) 7,160-113-100 uswd-cm-uqwi tab Take by mouth. - ACETAMINOPHEN 500 MG TAB Take one(1) tablet every four(4) to six(6) hours as needed for pain. Problem List As Of Date 11/05/2024 Noted Resolved Unspecified constipation [K59.00] 04/30/2006 03/16/2016 PEPTIC ULCER NOS [K27.9] 03/19/2007 GENERALIZED ANXIETY DIS [F41.1] Generalized osteoarthrosis, unspecified site [M* 12/23/2015 Myalgia and myositis [[id number]] 05/22/2017 Diverticulosis of large intestine [K57.30] Disorder of bone and cartilage [M89.9, M94.9] Hypothyroidism [E03.9] Hyperlipidemia LDL goal <130 [E78.5] Gout, unspecified [M10.9] 12/23/2015 PEPTIC ULCER NOS [K27.9] 03/19/2007 PAROX ATRIAL TACHYCARDIA [I47.10] 03/19/2007 Disturbances of sensation of smell and taste [R*02/13/2008 05/22/2017 Chronic maxillary sinusitis [J32.0] 02/13/2008 05/22/2017 Meniere's disease, unspecified [H81.09] 05/20/2008 03/16/2016 Dizziness and giddiness [R42] 05/13/2009 12/23/2015 Cervicalgia [M54.2] 05/13/2009 12/23/2015 Osteoarthritis of both knees [M17.0] Multinodular goiter [E04.2] Syncope and collapse [R55] 04/30/2014 12/23/2015 History of knee replacement, total [Z96.659] 12/23/2015 Ageusia [R43.2] 02/23/2016 05/22/2017 Glossitis [K14.0] 02/23/2016 05/22/2017 Mild intermittent asthma without complication [*03/16/2016 Paroxysmal supraventricular tachycardia (HCC) [* Nausea [R11.0] 03/20/2018 04/29/2019 Hernia of anterior abdominal wall [K43.9] 04/18/2020 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] 04/18/2020 BPPV (benign paroxysmal positional vertigo), un*04/22/2020 Itching [L29.9] 07/27/2020 Orthostatic syncope [I95.1] 07/27/2020 RLS (restless legs syndrome) [G25.81] Asthma [J45.909] Benzodiazepine dependence (HCC) [F13.20] 05/29/2023 Anxiety [F41.9] 01/01/2024 Diagnosed: 01/01/2024 Chronic ethmoidal sinusitis [J32.2] 01/01/2024 Diagnosed: 01/01/2024 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*05/27/2012 Diagnosed: 01/01/2024 Disorder of bursae of shoulder region [M71.9] 01/24/2012 Diagnosed: 01/01/2024 Encounter for pre-operative examination [Z01.81*01/01/2024 Diagnosed: 01/01/2024 Family history of malignant neoplasm of colon [*10/08/2023 Diagnosed: 01/01/2024 History of appendectomy [Z90.49] 01/01/2024 Diagnosed: 01/01/2024 Hernia [K46.9] 01/01/2024 Diagnosed: 01/01/2024 History of partial surgical removal of colon [Z*10/08/2023 Diagnosed: 01/01/2024 Low back pain [M54.50] 09/18/2011 Diagnosed: 01/01/2024 Lumbosacral spondylos (more content not included)... Normal [facility] Telephone (FAMPWS) SACHI GRACE ([id number]) 1935 F NFR Date Time Provider Department [facility]/05[facility] During your visit today, we recorded the following information about you: Sharon Paul RN 11/05/2024 10:10 AM Signed Patient calls and states that she increased nortriptyline from 20 mg to 30 mg on Saturday night and Saturday night. Patient reports that last night (Saturday) she got dizzy and she fell. Patient has left arm bruising. Patient denies hitting head and other injuries. Patient does not want to take increase dose of medication due to this. Patient is asking about Gabapentin. Please review and advise, YARY Krueger Jacqueline A, COMPUTER SYSTEM SPECIALIST.[facility] 11/05/2024 10:41 AM Signed Ok. She has not tolerated gabapentin in past either. She can retry and let me know if working but had the same complaints on gabapentin Zulma Benites MA 11/05/2024 11:16 AM Signed Patient notified of provider message that it is ok to retry Gabapentin, but let her know if she has similar reaction, to call back. She is agreeable and verbalizes understanding. Zulma Benites MA November 05, 2024 11:15 AM Allergies As of Date: 11/05/2024 Noted Allergy Reaction VICODIN (HYDROCODONE-ACETAMINOPHE*01/2013 8 - GI Upset BUSPIRONE 04/21/2024 5 - Intolerance Comments: Anxious, jittery, felt worse, RLS worse. COCAMIDOPROPYL BETAINE 07/27/2020 2 - Rash Comments: itching, rash CODEINE 03/19/2007 8 - GI Upset PERCOCET (OXYCODONE-ACETAMINOPHEN)04/02 8 - GI Upset SULFA (SULFONAMIDE ANTIBIOTICS) 03/19/2007 4 - Hives 7 - Swelling Comments: lips swelled up TETRACYCLINE 04/29/2019 8 - GI Upset Date Reviewed: 11/03/2024 Reviewed by: Anitra Mancera APRN.CNP - Fully Assessed Reason for Visit: Patient Update [1234] Prescriptions as of 11/05/2024 - Vit B Complex 100 Combo No.2 (B-100 COMPLEX) 100 mg TbER Take 1 tablet by mouth once daily. - levothyroxine (SYNTHROID) 50 mcg tablet Take 50 mcg by mouth. Take 50 mcg on Saturday, and 75 mcg all other days of the week, per ENDO - rOPINIRole (REQUIP) 0.5 mg tablet Take 1.5 tablets by mouth daily at bedtime. - MEDICATION, NON-DATABASE CBD oil - fluticasone propionate (ARMONAIR DIGIHALER) 232 mcg/actuation inhaler Inhale 1 Puff as instructed two times a day. - levalbuterol tartrate HFA 45 mcg/actuation inhaler Inhale 1-2 Puffs as instructed every 4 hours as needed for wheezing/shortness of breath. - nortriptyline (PAMELOR) 10 mg capsule Take 20 mg by mouth daily at bedtime. - Cholecalciferol, Vitamin D3, (VITAMIN D) 25 mcg (1,000 unit) cap Take 1,000 Units by mouth once daily. - clonazePAM (KLONOPIN) 0.5 mg tablet Take 0.5 mg by mouth at bedtime as needed. Dr Dupree - vit A,C,E-Jcfj-Tnhcop (PRESERVISION AREDS) 7,160-113-100 dwlz-yg-wwvj tab Take by mouth. - ACETAMINOPHEN 500 MG TAB Take one(1) tablet every four(4) to six(6) hours as needed for pain. Problem List As Of Date 11/05/2024 Noted Resolved Unspecified constipation [K59.00] 04/30/2006 03/16/2016 PEPTIC ULCER NOS [K27.9] 03/19/2007 GENERALIZED ANXIETY DIS [F41.1] Generalized osteoarthrosis, unspecified site [M* 12/23/2015 Myalgia and myositis [TRH1624] 05/22/2017 Diverticulosis of large intestine [K57.30] Disorder of bone and cartilage [M89.9, M94.9] Hypothyroidism [E03.9] Hyperlipidemia LDL goal <130 [E78.5] Gout, unspecified [M10.9] 12/23/2015 PEPTIC ULCER NOS [K27.9] 03/19/2007 PAROX ATRIAL TACHYCARDIA [I47.10] 03/19/2007 Disturbances of sensation of smell and taste [R*02/13/2008 05/22/2017 Chronic maxillary sinusitis [J32.0] 02/13/2008 05/22/2017 Meniere's disease, unspecified [H81.09] 05/20/2008 03/16/2016 Dizziness and giddiness [R42] 05/13/2009 12/23/2015 Cervicalgia [M54.2] 05/13/2009 12/23/2015 Osteoarthritis of both knees [M17.0] Multinodular goiter [E04.2] Syncope and collapse [R55] 04/30/2014 12/23/2015 History of knee replacement, total [Z96.659] 12/23/2015 Ageusia [R43.2] 02/23/2016 05/22/2017 Glossitis [K14.0] 02/23/2016 05/22/2017 Mild intermittent asthma without complication [*03/16/2016 Paroxysmal supraventricular tachycardia (HCC) [* Nausea [R11.0] 03/20/2018 04/29/2019 Hernia of anterior abdominal wall [K43.9] 04/18/2020 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] 04/18/2020 BPPV (benign paroxysmal positional vertigo), un*04/22/2020 Itching [L29.9] 07/27/2020 Orthostatic syncope [I95.1] 07/27/2020 RLS (restless legs syndrome) [G25.81] Asthma [J45.909] Benzodiazepine dependence (HCC) [F13.20] 05/29/2023 Anxiety [F41.9] 01/01/2024 Diagnosed: 01/01/2024 Chronic ethmoidal sinusitis [J32.2] 01/01/2024 Diagnosed: 01/01/2024 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 Normal [facility] 25(OH)D3 SerPl-mCncon 2023 25-hydroxyvitamin D3 [Mass/Vol] 39.5 ng/mL Normal 31.0-80.0 [facility] Comment on above: Order Comment: Speci men Type: BLOOD SPECIMEN Ordering Facility: [facility] Address: [address] [place] [address] Performed By: #### 3 016-3, 38577-8, 58204-9, LIPNF #### [facility] CLIA [id number] [address] [place] [address] [place] CBC W Auto Differential pane l (Bld)on 11-03-2024 Basophils (Bld) [#/Vol] 0.05 10*3/uL Normal <0.11 [facility] Comment on above: Order Comment: Speci men Type: BLOOD SPECIMEN Ordering Facility: [facility] Address: [address] [place] [address] Performed By: #### 3 016-3, 80242-5, 43950-6, LIPNF #### [facility] CLIA [id number] [address] [place] [address] [place] Basophils/100 WBC (Bld) 1.0 % Normal [facility] Comment on above: Order Comment: Speci men Type: BLOOD SPECIMEN Ordering Facility: [facility] Address: [address] [place] [address] Performed By: #### 3 016-3, 43495-2, 57322-6, LIPNF #### [facility] CLIA [id number] [address] [place] [address] [place] Differential cell count method Nom (Bld) Auto Normal [facility] Comment on above: Order Comment: Speci men Type: BLOOD SPECIMEN Ordering Facility: [facility] Address: [address] [place] [address] Performed By: #### 3 016-3, 42593-7, 64600-0, LIPNF #### [facility] CLIA [id number] [address] [place] [address] [place] Eosinophils (Bld) [#/Vol] 0.58 10*3/uL High <0.46 [facility] Comment on above: Order Comment: Speci men Type: BLOOD SPECIMEN Ordering Facility: [facility] Address: [address] [place] [address] Performed By: #### 3 016-3, , 86176-0, LIPNF #### [facility] CLIA [id number] [address] [place] [address] [place] Eosinophils/100 WBC (Bld) 11.1 % Normal [facility] Comment on above: Order Comment: Speci men Type: BLOOD SPECIMEN Ordering Facility: [facility] Address: [address] [place] [address] Performed By: #### 3 016-3, , , LIPNF #### [facility] CLIA [id number] [address] [place] [address] [place] Erythrocyte distribution width (RBC) [Ratio] 14.4 % Normal 11.5-15.0 [facility] Comment on above: Order Comment: Speci men Type: BLOOD SPECIMEN Ordering Facility: [facility] Address: [address] [place] [address] Performed By: #### 3 016-3, , , LIPNF #### [facility] CLIA [id number] [address] [place] [address] [place] Hematocrit (Bld) [Volume fraction] 40.0 % Normal 36.0-46.0 [facility] Comment on above: Order Comment: Speci men Type: BLOOD SPECIMEN Ordering Facility: [facility] Address: [address] [place] [address] Performed By: #### 3 016-3, , 12978-2, LIPNF #### [facility] CLIA [id number] [address] [place] [address] [place] Hemoglobin (Bld) [Mass/Vol] 12.4 g/dL Normal 11.5-15.5 [facility] Comment on above: Order Comment: Speci men Type: BLOOD SPECIMEN Ordering Facility: [facility] Address: [address] [place] [address] Performed By: #### 3 016-3, , 97083-9, LIPNF #### [facility] CLIA [id number] [address] [place] [address] [place] Immature granulocytes (Bld) [#/Vol] 10*3/uL Normal <0.10 [facility] Comment on above: Order Comment: Speci men Type: BLOOD SPECIMEN Ordering Facility: [facility] Address: [address] [place] [address] Performed By: #### 3 016-3, , , LIPNF #### [facility] CLIA [id number] [address] [place] [address] [place] Immature granulocytes/100 WBC (Bld) 0.2 % Normal [facility] Comment on above: Order Comment: Speci men Type: BLOOD SPECIMEN Ordering Facility: [facility] Address: [address] [place] [address] Performed By: #### 3 016-3, , 09199-0, LIPNF #### [facility] CLIA [id number] [address] [place] [address] [place] Lymphocytes (Bld) [#/Vol] 0.92 10*3/uL Low 1.00-4.00 [facility] Comment on above: Order Comment: Speci men Type: BLOOD SPECIMEN Ordering Facility: [facility] Address: [address] [place] [address] Performed By: #### 3 016-3, , , LIPNF #### [facility] CLIA [id number] [address] [place] [address] [place] Lymphocytes/100 WBC (Bld) 17.6 % Normal [facility] Comment on above: Order Comment: Speci men Type: BLOOD SPECIMEN Ordering Facility: [facility] Address: [address] [place] [address] Performed By: #### 3 016-3, , , LIPNF #### [facility] CLIA [id number] [address] [place] [address] [place] MCH (RBC) [Entitic mass] 27.6 pg Normal 26.0-34.0 [facility] Comment on above: Order Comment: Speci men Type: BLOOD SPECIMEN Ordering Facility: [facility] Address: [address] [place] [address] Performed By: #### 3 016-3, , , LIPNF #### [facility] CLIA [id number] [address] [place] [address] [place] MCHC (RBC) [Mass/Vol] 31.0 g/dL Normal 30.5-36.0 [facility] Comment on above: Order Comment: Speci men Type: BLOOD SPECIMEN Ordering Facility: [facility] Address: [address] [place] [address] Performed By: #### 3 016-3, , , LIPNF #### [facility] CLIA [id number] [address] [place] [address] [place] MCV (RBC) [Entitic vol] 88.9 fL Normal 80.0-100.0 [facility] Comment on above: Order Comment: Speci men Type: BLOOD SPECIMEN Ordering Facility: [facility] Address: [address] [place] [address] Performed By: #### 3 016-3, , , LIPNF #### [facility] CLIA [id number] [address] [place] [address] [place] Monocytes (Bld) [#/Vol] 0.78 10*3/uL Normal <0.87 [facility] Comment on above: Order Comment: Speci men Type: BLOOD SPECIMEN Ordering Facility: [facility] Address: [address] [place] [address] Performed By: #### 3 016-3, , , LIPNF #### [facility] CLIA [id number] [address] [place] [address] [place] Monocytes/100 WBC (Bld) 14.9 % Normal [facility] Comment on above: Order Comment: Speci men Type: BLOOD SPECIMEN Ordering Facility: [facility] Address: [address] [place] [address] Performed By: #### 3 016-3, , , LIPNF #### [facility] CLIA [id number] [address] [place] [address] [place] Neutrophils (Bld) [#/Vol] 2.88 10*3/uL Normal 1.45-7.50 [facility] Comment on above: Order Comment: Speci men Type: BLOOD SPECIMEN Ordering Facility: [facility] Address: [address] [place] [address] Performed By: #### 3 016-3, , , LIPNF #### [facility] CLIA [id number] [address] [place] [address] [place] Neutrophils/100 WBC (Bld) 55.2 % Normal [facility] Comment on above: Order Comment: Speci men Type: BLOOD SPECIMEN Ordering Facility: [facility] Address: [address] [place] [address] Performed By: #### 3 016-3, , 83360-3, LIPNF #### [facility] CLIA [id number] [address] [place] [address] [place] Nucleated RBC (Bld) [#/Vol] 10*3/uL Normal <0.01 [facility] Comment on above: Order Comment: Speci men Type: BLOOD SPECIMEN Ordering Facility: [facility] Address: [address] [place] [address] Performed By: #### 3 016-3, 18565-6, , LIPNF #### [facility] CLIA [id number] [address] [place] [address] [place] Nucleated RBC/100 WBC (Bld) [Ratio] 0.0 /100 WBC Normal [facility] Comment on above: Order Comment: Speci men Type: BLOOD SPECIMEN Ordering Facility: [facility] Address: [address] [place] [address] Performed By: #### 3 016-3, , , LIPNF #### [facility] CLIA [id number] [address] [place] [address] [place] Platelet mean volume (Bld) [Entitic vol] 9.9 fL Normal 9.0-12.7 [facility] Comment on above: Order Comment: Speci men Type: BLOOD SPECIMEN Ordering Facility: [facility] Address: [address] [place] [address] Performed By: #### 3 016-3, , , LIPNF #### [facility] CLIA [id number] [address] [place] [address] [place] Platelets (Bld) [#/Vol] 350 10*3/uL Normal 150-400 [facility] Comment on above: Order Comment: Speci men Type: BLOOD SPECIMEN Ordering Facility: [facility] Address: [address] [place] [address] Performed By: #### 3 016-3, , 98807-6, LIPNF #### [facility] CLIA [id number] [address] [place] [address] [place] RBC (Bld) [#/Vol] 4.50 10*6/uL Normal 3.90-5.20 [facility] Comment on above: Order Comment: Speci men Type: BLOOD SPECIMEN Ordering Facility: [facility] Address: [address] [place] [address] Performed By: #### 3 016-3, 56045-6, 60074-7, LIPNF #### [facility] CLIA [id number] [address] [place] [address] [place] WBC (Bld) [#/Vol] 5.22 10*3/uL Normal 3.70-11.00 [facility] Comment on above: Order Comment: Speci men Type: BLOOD SPECIMEN Ordering Facility: [facility] Address: [address] [place] [address] Performed By: #### 3 016-3, 39970-8, 85776-8, LIPNF #### [facility] CLIA [id number] [address] [place] [address] OF NURYS CNOVon 11-03-2024 CNOV Office Visit (FAMPWS ) SACHI GRACE ([id number]) 1935 F NFR Date Time Provider Department 11/03/24 2:40 PM ANITRA MANCERA FAMPWS During your visit today, we recorded the following information about you: Pulse Respiration Blood pressure Weight 64/minute 16/minute 122/68 57.6 kg Anitra Mancera, COMPUTER SYSTEM SPECIALIST.[employer]ENT[employer] 11/03/2024 3:14 PM Signed This is a 89 year old female who presents today with: Patient presents with: Mouth/Lip Problem: Burning Mouth HISTORY OF PRESENT ILLNESS: Sachi Grace is a 89 year old female. Patient presents with: Mouth/Lip Problem: Burning Mouth Saw ENT, told he doesn't think mouth pain is burning mouth. Burning sensation upper lip, + behind teeth, and tip tongue. Ongoing since July. Nystatin doesn't help. Pain varies in intensity. Eating makes it worse. Drinking doesn't seem to affect it. Cold makes it worse. 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 Dupree-every 6 months Gout, unspecified late great toe, several episodes Hypothyroidism, unspecified Multinodular goiter Dr Boateng Osteoarthritis of both knees Other and unspecified hyperlipidemia diet therapy as of 03/08 Paroxysmal supraventricular tachycardia (HCC) ablation 01/2002 ( in [place], [facility]), follows with Dr. Moreno (prn only) RLS (restless legs syndrome) Tinnitus, unspecified ear Unspecified constipation PAST SURGICAL HISTORY Procedure Laterality Date APPENDECTOMY ARTHRP KNE CONDYLEANDPLATU MEDIALANDLAT COMPARTMENTS 2012 Knee replacement, total bilateral CARPAL TUNNEL 2005 bilateral COLONOSCOPY FLX DX W/COLLJ SPEC WHEN PFRMD 12/14/2002 Colonoscopy COLONOSCOPY FLX DX W/COLLJ SPEC WHEN PFRMD 06/10/2007 COLONOSCOPY FLX DX W/COLLJ SPEC WHEN PFRMD 08/04/2013 Colonoscopy COLONOSCOPY FLX DX W/COLLJ SPEC WHEN PFRMD 10/14/2018 [facility]. [facility]-Repeat 5 years COLONOSCOPY SCREENING 11/15/2023 R Cebul no repeat due to age CORRECT BUNION,SIMPLE left ECHOCARDIOGRAM 10/18/2017 EGD 1985 bleeding ulcer EPS: SVT/VT ABLATION 2001 [facility] ESOPHAGOGASTRODUODENOSCOPY TRANSORAL DIAGNOSTIC 03/24/2018 EGD HERNIA REPAIR HX 09/2020 ventral hernia repair HOLTER 24 HR 10/2017 LOOP RECORDER IMPLANT 01/23/2018 NASAL/SINUS ENDOSCOPY WITH SPHENOIDOTOMY Bilateral 05/15/2019 Dr. Ruffin NASAL/SINUS ENDOSCPY W/MAXILL ANTROSTOMY Bilateral 05/15/2019 Dr. Ruffin NASAL/SINUS ENDOSCPY W/TOTAL ETHMOIDECTOMY Bilateral 05/15/2019 Dr. Ruffin OPEN REPAIR OF ROTATOR CUFF ACUTE 04/2005 Dr. Mejias PAST SURGICAL HISTORY OF 10/1997 partial colectomy ([place], [facility]) PAST SURGICAL HISTORY OF 2011 nerves cut in my back STEREO LOC FOR CORE BRST BX LT 04/24/2010 left STRESS TEST 12/17/2017 TONSILLECTOMY PRIMARY/SECONDARY ALLERGIES Vicodin [Hydrocodone-Acetaminophen], Buspirone, Cocamidopropyl Betaine, Codeine, Percocet [Oxycodone-Acetaminophen], Sulfa (Sulfonamide Antibiotics), and Tetracycline MEDICATIONS Current Outpatient Medications Medication Sig Vit B Complex 100 Combo No.2 (B-100 COMPLEX) 100 mg TbER Take 1 tablet by mouth once daily. levothyroxine (SYNTHROID) 50 mcg tablet Take 50 mcg by mouth. Take 50 mcg on Saturday, and 75 mcg all other days of the week, per ENDO rOPINIRole (REQUIP) 0.5 mg tablet Take 1.5 tablets by mouth daily at bedtime. MEDICATION, NON-DATABASE CBD oil fluticasone propionate (ARMONAIR DIGIHALER) 232 mcg/actuation inhaler Inhale 1 Puff as instructed two times a day. levalbuterol tartrate HFA 45 mcg/actuation inhaler Inhale 1-2 Puffs as instructed every 4 hours as needed for wheezing/shortness of breath. nortriptyline (PAMELOR) 10 mg capsule Take 1 capsule by mouth every 12 hours. Cholecalciferol, Vitamin D3, (VITAMIN D) 25 mcg (1,000 unit) cap Take 1,000 Units by mouth once daily. clonazePAM (KLONOPIN) 0.5 mg tablet Take 0.5 mg by mouth at bedtime as needed. Dr Dupree vit A,C,E-Uhrf-Oecbow (PRESERVISION AREDS) 7,160-113-100 qyqy-jz-wzlb tab Take by mouth. ACETAMINOPHEN 500 MG TAB Take one(1) tablet every four(4) to six(6) hours as needed for pain. No current facility-administered medications for this visit. FAMILY HISTORY Problem Relation Age of Onset Heart Mother rheumatic; 73 Colon Cancer Father dx'd age 50's Coronary Artery Disease Father age 40s, CABG (among the first done at in [place]) Stroke Sister at 58 of ruptured aneurysm Cancer Brother at 55 (tobacco, agent orange) DVT Sister Social History Tobacco Use Smoking status: Never Smokeless tobacco: Never Vaping (more content not included)... Normal [facility] Comprehensive metabolic 2000 panelon 11-03-2024 Albumin [Mass/Vol] 4.0 g/dL Normal 3.9-4.9 [facility] Comment on above: Order Comment: Speci men Type: BLOOD SPECIMEN Ordering Facility: [facility] Address: [address] [place] [address] Performed By: #### 3 016-3, 99455-9, 77416-5, LIPNF #### [facility] CLIA [id number] [address] [place] [address] [place] ALP [Catalytic activity/Vol] 102 U/L Normal 34-123 [facility] Comment on above: Order Comment: Speci men Type: BLOOD SPECIMEN Ordering Facility: [facility] Address: [address] [place] [address] Performed By: #### 3 016-3, 08563-6, 83813-1, LIPNF #### [facility] CLIA [id number] [address] [place] [address] [place] ALT [Catalytic activity/Vol] 17 U/L Normal 7-38 [facility] Comment on above: Order Comment: Speci men Type: BLOOD SPECIMEN Ordering Facility: [facility] Address: [address] [place] [address] Performed By: #### 3 016-3, 83510-2, 46465-9, LIPNF #### [facility] CLIA [id number] [address] [place] [address] [place] Anion gap [Moles/Vol] 11 mmol/L Normal 8-15 [facility] Comment on above: Order Comment: Speci men Type: BLOOD SPECIMEN Ordering Facility: [facility] Address: [address] [place] [place] [address] Performed By: #### 3 016-3, 41436-0, 42855-9, LIPNF #### [facility] CLIA [id number] [address] [place] [address] [place] AST [Catalytic activity/Vol] 25 U/L Normal 13-35 [facility] Comment on above: Order Comment: Speci men Type: BLOOD SPECIMEN Ordering Facility: [facility] Address: [address] [place] [address] Performed By: #### 3 016-3, 83437-6, 46388-2, LIPNF #### [facility] CLIA [id number] [address] [place] [address] [place] Bilirubin [Mass/Vol] 0.3 mg/dL Normal 0.2-1.3 [facility] Comment on above: Order Comment: Speci men Type: BLOOD SPECIMEN Ordering Facility: [facility] Address: [address] [place] [address] Performed By: #### 3 016-3, 01176-2, 17869-4, LIPNF #### [facility] CLIA [id number] [address] [place] [address] [place] Calcium [Mass/Vol] 9.4 mg/dL Normal 8.5-10.2 [facility] Comment on above: Order Comment: Speci men Type: BLOOD SPECIMEN Ordering Facility: [facility] Address: [address] [place] [address] Performed By: #### 3 016-3, 67630-9, 78371-6, LIPNF #### [facility] CLIA [id number] [address] [place] [address] [place] Chloride [Moles/Vol] 98 mmol/L Normal 98-107 [facility] Comment on above: Order Comment: Speci men Type: BLOOD SPECIMEN Ordering Facility: [facility] Address: [address] [place] [address] Performed By: #### 3 016-3, 25457-0, 86583-1, LIPNF #### [facility] CLIA [id number] [address] [place] [address] [place] CO2 [Moles/Vol] 27 mmol/L Normal 22-30 [facility] Comment on above: Order Comment: Speci men Type: BLOOD SPECIMEN Ordering Facility: [facility] Address: [address] [place] [address] Performed By: #### 3 016-3, 90056-9, 55806-5, LIPNF #### [facility] CLIA [id number] [address] [place] [address] [place] Creatinine [Mass/Vol] 0.62 mg/dL Normal 0.58-0.96 [facility] Comment on above: Order Comment: Speci men Type: BLOOD SPECIMEN Ordering Facility: [facility] Address: [address] [place] [address] Performed By: #### 3 016-3, 95930-3, 14919-8, LIPNF #### [facility] CLIA [id number] [address] [place] [address] [place] Creatinine and Glomerular filtration rate.predicted panel (S/P/Bld) 85 mL/min/1.73m??? Normal >=60 [facility] Comment on above: Order Comment: Speci men Type: BLOOD SPECIMEN Ordering Facility: [facility] Address: [address] [place] [address] Result Comment: Solitario mated Glomerular Filtration Rate (eGFR) is calculated using the 2020 CKD-EPI creatinine equation. This equation utilizes serum creatinine, sex, and age as parameters. The creatinine assay has traceable calibration to isotope dilution-mass spectrometry. Refer to KDIGO guidelines for clinical interpretation. In patients with unstable renal function, e.g. those with acute kidney injury, the eGFR may not accurately reflect actual GFR. Performed By: #### 3 016-3, 46825-2, 18036-7, LIPNF #### [facility] CLIA [id number] [address] [place] [address] [place] Glucose [Mass/Vol] 87 mg/dL Normal 74-99 [facility] Comment on above: Order Comment: Speci men Type: BLOOD SPECIMEN Ordering Facility: [facility] Address: [address] [place] [address] Result Comment: The [place] Diabetes Association (ADA) provides guidance for cutoff values for fasting glucose and random glucose. The ADA defines fasting as no caloric intake for at least 8 hours. Fasting plasma glucose results between 100 to 125 mg/dL indicate increased risk for diabetes (prediabetes). Fasting plasma glucose results greater than or equal to 126 mg/dL meet the criteria for diagnosis of diabetes. In the absence of unequivocal hyperglycemia, results should be confirmed by repeat testing. In a patient with classic symptoms of hyperglycemia or hyperglycemic crisis, random plasma glucose results greater than or equal to 200 mg/dL meet the criteria for diagnosis of diabetes. Reference: Standards of Medical Care in Diabetes 2016, [place] Diabetes Association. Diabetes Care. 2016.39(Suppl 1). Performed By: #### 3 016-3, 04573-5, , LIPNF #### [facility] CLIA [id number] [address] [place] [address] [place] Potassium [Moles/Vol] 4.6 mmol/L Normal 3.7-5.1 [facility] Comment on above: Order Comment: Pearl men Type: BLOOD SPECIMEN Ordering Facility: [facility] Address: [address] [place] [address] Performed By: #### 3 016-3, 12985-6, , LIPNF #### [facility] CLIA [id number] [address] [place] [address] [place] Protein [Mass/Vol] 7.1 g/dL Normal 6.3-8.0 [facility] Comment on above: Order Comment: Pearl colorado Type: BLOOD SPECIMEN Ordering Facility: [facility] Address: [address] [place] [address] Performed By: #### 3 016-3, 19910-2, 71841-3, LIPNF #### [facility] CLIA [id number] [address] [place] [address] [place] Sodium [Moles/Vol] 136 mmol/L Normal 136-144 [facility] Comment on above: Order Comment: Speci men Type: BLOOD SPECIMEN Ordering Facility: [facility] Address: [address] [place] [address] Performed By: #### 3 016-3, 34789-9, , LIPNF #### [facility] CLIA [id number] [address] [place] [address] [place] Urea nitrogen [Mass/Vol] 18 mg/dL Normal 7-21 [facility] Comment on above: Order Comment: Speci men Type: BLOOD SPECIMEN Ordering Facility: [facility] Address: [address] [place] [address] Performed By: #### 3 016-3, 15974-9, , LIPNF #### [facility] CLIA [id number] [address] [place] [address] [place] HbA1c (Bld)on 11-03-2024 Average glucose Estimated from glycated hemoglobin (Bld) [Mass/Vol] 105 mg/dL Normal [facility] Comment on above: Order Comment: Speci men Type: BLOOD SPECIMENOrdering Facility: [facility] Address: [address] [place] [address] Result Comment: eAG: (Estimated average glucose) is a calculated value from HgbA1c and is electroplating sales representative of the average blood glucose level in the last 2-3 month period. Performed By: #### 5 5454-3 ####[facility] [id number] [place] [address] [place] HbA1c (Bld) [Mass fraction] 5.3 % Normal 4.3-5.6 [facility] Comment on above: Order Comment: Speci men Type: BLOOD SPECIMENOrdering Facility: [facility] Address: [address] [place] [address] Result Comment: [place] Diabetes Association guidelines indicate that patients with HgbA1c in the range 5.7-6.4% are at increased risk for development of diabetes, and intervention by lifestyle modification may be beneficial. HgbA1c greater or equal to 6.5% is considered diagnostic of diabetes. Performed By: #### 5 5454-3 ####[facility] [id number] [place] [address] [place] LIPID PANEL, NONFASTINGon Cholesterol [Mass/Vol] 189 mg/dL Normal <200 [facility] Comment on above: Order Comment: Pearl colorado Type: BLOOD SPECIMEN Ordering Facility: [facility] Address: [address] [place] [address] Result Comment: <200 mg/dL, Desirable 200-239 mg/dL, Borderline high >239 mg/dL, High Performed By: #### 3 016-3, 18198-4, 46269-6, LIPNF #### [facility] CLIA [id number] [address] [place] [address] [place] HDL CHOLESTEROL, NF 68 mg/dL Normal >39 [facility] Comment on above: Order Comment: Pearl colorado Type: BLOOD SPECIMEN Ordering Facility: [facility] Address: [address] [place] [address] Result Comment: 40-5 9 mg/dL, Acceptable >59 mg/dL, High: Negative risk factor for coronary heart disease <40 mg/dL, Low: Positive risk factor for coronary heart disease Performed By: #### 3 016-3, 63087-0, 55938-4, LIPNF #### [facility] CLIA [id number] [facility] [place] [address] [place] LDL CHOLESTEROL, NF 101 mg/dL High <100 [facility] Comment on above: Order Comment: Pearl colorado Type: BLOOD SPECIMEN Ordering Facility: [facility] Address: [address] [place] [address] Result Comment: <100 mg/dL, Optimal 100-129 mg/dL, Near optimal/above optimal 130-159 mg/dL, Borderline high 160-189 mg/dL, High >189 mg/dL, Very high Secondary prevention optimal LDL Cholesterol levels are recommended to be < 70 mg/dL Performed By: #### 3 016-3, 39029-3, , LIPNF #### [facility] CLIA [id number] [address] [place], [place] [address] [address] STATES OF [facility] LDL/HDL RATIO, NF 1.49 mg/dL Normal <2.54 [facility] Comment on above: Order Comment: Pearl colorado Type: BLOOD SPECIMEN Ordering Facility: [facility] Address: [address] [place] [address] Result Comment: Yasir dodson: 1. National Cholesterol Education Program ATP III Guideline At-A-Glance Quick Desk Reference: National Heart, Lung, and Blood [place]. National Institutes of Health. 2001: NIH Publication No. 01-3305. 2. An International Atherosclerosis Society position paper: global recommendations for the management of dyslipidemia: executive summary, Atherosclerosis. 2014: 232(2):410-413. Performed By: #### 3 016-3, 43069-9, , LIPNF #### [facility] CLIA [id number] [address] [place] [address] [place] NON HDL CHOL, NF 121 mg/dL Normal <130 [facility] Comment on above: Order Comment: Pearl colorado Type: BLOOD SPECIMEN Ordering Facility: [facility] Address: [address] [place] [address] Result Comment: <130 mg/dL, Optimal 130-159 mg/dL, Near optimal/above optimal 160-189 mg/dL, Borderline high 190-219 mg/dL, High >219 mg/dL, Very high Secondary prevention optimal non HDL Cholesterol levels are recommended to be <100 mg/dL Performed By: #### 3 016-3, 18629-9, 67571-7, LIPNF #### [facility] CLIA [id number] [address] [place], [place] [id number] [address] [place] T CHOL/HDL RATIO NF 2.78 mg/dL Normal <5.10 [facility] Comment on above: Order Comment: Speci men Type: BLOOD SPECIMEN Ordering Facility: [facility] Address: [address] [place] [address] Performed By: #### 3 016-3, 18686-6, 00388-1, LIPNF #### [facility] CLIA [id number] [address] [place] [address] [place] TRIGLYCERIDES, NF 98 mg/dL Normal <150 [facility] Comment on above: Order Comment: Speci men Type: BLOOD SPECIMEN Ordering Facility: [facility] Address: [address] [place] [address] Result Comment: <150 mg/dL, Normal 150-199 mg/dL, Borderline high 200-499 mg/dL, High >499 mg/dL, Very high Performed By: #### 3 016-3, , , LIPNF #### [facility] CLIA [id number] [address] [place] [address] [place] VLDL CHOLESTEROL, NF 20 mg/dL Normal <30 [facility] Comment on above: Order Comment: Speci men Type: BLOOD SPECIMEN Ordering Facility: [facility] Address: [address] [place] [address] Performed By: #### 3 016-3, , , LIPNF #### [facility] CLIA [id number] [address] [place] [address] [place] Magnesium SerPl-mCncon 11-03 Magnesium [Mass/Vol] 2.3 mg/dL Normal 1.7-2.3 [facility] Comment on above: Order Comment: Speci men Type: BLOOD SPECIMEN Ordering Facility: [facility] Address: [address] [place] [address] Performed By: #### 3 016-3, 86199-0, , LIPNF #### [facility] CLIA [id number] [address] [place] [address] [place] TSH SerPl-aCncon 11-03-2024 TSH Qn 3.220 m[IU]/L Normal 0.270-4.200 [facility] Comment on above: Order Comment: Speci men Type: BLOOD SPECIMEN Ordering Facility: [facility] Address: [address] [place] [address] Performed By: #### 3 016-3, 58089-1, 31903-5, LIPNF #### [facility] CLIA [id number] [address] [place] [address] [place] Vit B12 SerPl-mCncon 024 Cobalamin (Vitamin B12) [Mass/Vol] 843 pg/mL Normal 232-1245 [facility] Comment on above: Order Comment: Specranda colorado Type: BLOOD SPECIMEN Ordering Facility: [facility] Address: [address] [place] [address] Performed By: #### 3 016-3, 29175-5, 93973-3, LIPNF #### [facility] CLIA [id number] [address] [place] [address] [place] CNPLydia 11-02-2024 [facility] SACHI GRACE ([id number]) 1935 F NFR Date Time Provider Department 11/02/24 ANITRA MANCERA During your visit today, we recorded the following information about you: Kevin Vang, RN 11/02/2024 4:55 PM Signed Patient reports she's had a sore burning mouth since July. Reports she saw Lucero Mancera, then referred to dentist- dentist referred her to minute clerk for basic traffic- and referred to another doctor. Reports she's had nystatin for weeks, finished it today- did nothing. Reports she took fluconazole pills for 7 days- did nothing. Reports she did a mouth rinse with dexa-something, which had a steroid in it- didn't help. Reports she uses a special tooth paste b/c all the other ones have Cocamidopropyl betaine in them- which she is allergic to. 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 States she couldn't even see the spot, and the drafter plumbing removed a spot the size of a dime. Patient scheduled appt with Lucero Mancera for tomorrow to discuss next steps. Allergies As of Date: 11/02/2024 Noted Allergy Reaction VICODIN (HYDROCODONE-ACETAMINOPHE*01/2013 8 - GI Upset BUSPIRONE 04/21/2024 5 - Intolerance Comments: Anxious, jittery, felt worse, RLS worse. COCAMIDOPROPYL BETAINE 07/27/2020 2 - Rash Comments: itching, rash CODEINE 03/19/2007 8 - GI Upset PERCOCET (OXYCODONE-ACETAMINOPHEN)04/02 8 - GI Upset SULFA (SULFONAMIDE ANTIBIOTICS) 03/19/2007 4 - Hives 7 - Swelling Comments: lips swelled up TETRACYCLINE 04/29/2019 8 - GI Upset Date Reviewed: 08/21/2024 Reviewed by: Anitra Mancera APRN.AUTOMOBILE RENTAL AGENT - Fully Assessed Reason for Visit: Sore burning mouth since July [Other] Prescriptions as of 11/05/2024 - Vit B Complex 100 Combo No.2 (B-100 COMPLEX) 100 mg TbER Take 1 tablet by mouth once daily. - levothyroxine (SYNTHROID) 50 mcg tablet Take 50 mcg by mouth. Take 50 mcg on Saturday, and 75 mcg all other days of the week, per ENDO - rOPINIRole (REQUIP) 0.5 mg tablet Take 1.5 tablets by mouth daily at bedtime. - MEDICATION, NON-DATABASE CBD oil - fluticasone propionate (ARMONAIR DIGIHALER) 232 mcg/actuation inhaler Inhale 1 Puff as instructed two times a day. - levalbuterol tartrate HFA 45 mcg/actuation inhaler Inhale 1-2 Puffs as instructed every 4 hours as needed for wheezing/shortness of breath. - nortriptyline (PAMELOR) 10 mg capsule Take 50 mg by mouth daily at bedtime. - Cholecalciferol, Vitamin D3, (VITAMIN D) 25 mcg (1,000 unit) cap Take 1,000 Units by mouth once daily. - clonazePAM (KLONOPIN) 0.5 mg tablet Take 0.5 mg by mouth at bedtime as needed. Dr Dupree - vit A,C,P-Dwjn-Ykqdpa (PRESERVISION AREDS) 7,160-113-100 urcq-vy-klyy tab Take by mouth. - ACETAMINOPHEN 500 MG TAB Take one(1) tablet every four(4) to six(6) hours as needed for pain. Problem List As Of Date 11/02/2024 Noted Resolved Unspecified constipation [K59.00] 04/30/2006 03/16/2016 PEPTIC ULCER NOS [K27.9] 03/19/2007 GENERALIZED ANXIETY DIS [F41.1] Generalized osteoarthrosis, unspecified site [M* 12/23/2015 Myalgia and myositis [[id number]] 05/22/2017 Diverticulosis of large intestine [K57.30] Disorder of bone and cartilage [M89.9, M94.9] Hypothyroidism [E03.9] Hyperlipidemia LDL goal <130 [E78.5] Gout, unspecified [M10.9] 12/23/2015 PEPTIC ULCER NOS [K27.9] 03/19/2007 PAROX ATRIAL TACHYCARDIA [I47.10] 03/19/2007 Disturbances of sensation of smell and taste [R*02/13/2008 05/22/2017 Chronic maxillary sinusitis [J32.0] 02/13/2008 05/22/2017 Meniere's disease, unspecified [H81.09] 05/20/2008 03/16/2016 Dizziness and giddiness [R42] 05/13/2009 12/23/2015 Cervicalgia [M54.2] 05/13/2009 12/23/2015 Osteoarthritis of both knees [M17.0] Multinodular goiter [E04.2] Syncope and collapse [R55] 04/30/2014 12/23/2015 History of knee replacement, total [Z96.659] 12/23/2015 Ageusia [R43.2] 02/23/2016 05/22/2017 Glossitis [K14.0] 02/23/2016 05/22/2017 Mild intermittent asthma without complication [*03/16/2016 Paroxysmal supraventricular tachycardia (HCC) [* Nausea [R11.0] 03/20/2018 04/29/2019 Hernia of anterior abdominal wall [K43.9] 04/18/2020 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] 04/18/2020 BPPV (benign paroxysmal positional vertigo), un*04/22/2020 Itching [L29.9] 07/27/2020 Orthostatic syncope [I95.1] 07/27/2020 RLS (restless legs syndrome) [G25.81] Asthma [J45.909] Benzodiazepine dependence (HCC) [F13.20] 05/29/2023 Anxiety [F41.9] 01/01/2024 Diagnosed: 01/01/2024 Chronic ethmoidal sinusitis [J32.2] 01/01/2024 Diagnosed: 01/01/2024 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 [facility] ([facility]) SACHI GRACE ([id number]) 1935 F NFR Date Time Provider Department 09/16/24 [facility] During your visit today, we recorded the following information about you: Soha Azevedo LPN 09/16/2024 9:37 AM Signed Pt. is taking Gabapentin for burning mouth syndrome. She feels dizziness and palpitations at times. Should she continue to take this. Not really helping with pain. Seeing a specialist in 3 weeks. Please advise. Anitra Mancera APRN.CNP 09/17/2024 7:58 AM Signed Yes. Go ahead and stop. We can't reduce it if it hasn't helped. Sorry. Alix Garcia, YARY 09/17/2024 8:29 AM Signed Pt called and is notified of providers message and instructions. Pt voices understanding and states she is going to stop the Gabapentin. Looks like it was already removed from her medication list. Alix Garcia RN Allergies As of Date: 09/16/2024 Noted Allergy Reaction VICODIN (HYDROCODONE-ACETAMINOPHE*01/2013 8 - GI Upset BUSPIRONE 04/21/2024 5 - Intolerance Comments: Anxious, jittery, felt worse, RLS worse. COCAMIDOPROPYL BETAINE 07/27/2020 2 - Rash Comments: itching, rash CODEINE 03/19/2007 8 - GI Upset PERCOCET (OXYCODONE-ACETAMINOPHEN)04/02 8 - GI Upset SULFA (SULFONAMIDE ANTIBIOTICS) 03/19/2007 4 - Hives 7 - Swelling Comments: lips swelled up TETRACYCLINE 04/29/2019 8 - GI Upset Date Reviewed: 08/21/2024 Reviewed by: Anitra Mancera APRN.AUTOMOBILE RENTAL AGENT - Fully Assessed Reason for Visit: Patient Question [2057] Prescriptions as of 09/17/2024 - Vit B Complex 100 Combo No.2 (B-100 COMPLEX) 100 mg TbER Take 1 tablet by mouth once daily. - levothyroxine (SYNTHROID) 50 mcg tablet Take 50 mcg by mouth. Take 50 mcg on Saturday, and 75 mcg all other days of the week, per ENDO - rOPINIRole (REQUIP) 0.5 mg tablet Take 1.5 tablets by mouth daily at bedtime. - MEDICATION, NON-DATABASE CBD oil - fluticasone propionate (ARMONAIR DIGIHALER) 232 mcg/actuation inhaler Inhale 1 Puff as instructed two times a day. - levalbuterol tartrate HFA 45 mcg/actuation inhaler Inhale 1-2 Puffs as instructed every 4 hours as needed for wheezing/shortness of breath. - nortriptyline (PAMELOR) 10 mg capsule Take 1 capsule by mouth every 12 hours. - Cholecalciferol, Vitamin D3, (VITAMIN D) 25 mcg (1,000 unit) cap Take 1,000 Units by mouth once daily. - clonazePAM (KLONOPIN) 0.5 mg tablet Take 0.5 mg by mouth at bedtime as needed. Dr Dupree - vit A,C,U-Nkwn-Vhkzwd (PRESERVISION AREDS) 7,160-113-100 rtws-tv-ywwi tab Take by mouth. - ACETAMINOPHEN 500 MG TAB Take one(1) tablet every four(4) to six(6) hours as needed for pain. Problem List As Of Date 09/16/2024 Noted Resolved Unspecified constipation [K59.00] 04/30/2006 03/16/2016 PEPTIC ULCER NOS [K27.9] 03/19/2007 GENERALIZED ANXIETY DIS [F41.1] Generalized osteoarthrosis, unspecified site [M* 12/23/2015 Myalgia and myositis [BNI2645] 05/22/2017 Diverticulosis of large intestine [K57.30] Disorder of bone and cartilage [M89.9, M94.9] Hypothyroidism [E03.9] Hyperlipidemia LDL goal <130 [E78.5] Gout, unspecified [M10.9] 12/23/2015 PEPTIC ULCER NOS [K27.9] 03/19/2007 PAROX ATRIAL TACHYCARDIA [I47.10] 03/19/2007 Disturbances of sensation of smell and taste [R*02/13/2008 05/22/2017 Chronic maxillary sinusitis [J32.0] 02/13/2008 05/22/2017 Meniere's disease, unspecified [H81.09] 05/20/2008 03/16/2016 Dizziness and giddiness [R42] 05/13/2009 12/23/2015 Cervicalgia [M54.2] 05/13/2009 12/23/2015 Osteoarthritis of both knees [M17.0] Multinodular goiter [E04.2] Syncope and collapse [R55] 04/30/2014 12/23/2015 History of knee replacement, total [Z96.659] 12/23/2015 Ageusia [R43.2] 02/23/2016 05/22/2017 Glossitis [K14.0] 02/23/2016 05/22/2017 Mild intermittent asthma without complication [*03/16/2016 Paroxysmal supraventricular tachycardia (HCC) [* Nausea [R11.0] 03/20/2018 04/29/2019 Hernia of anterior abdominal wall [K43.9] 04/18/2020 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] 04/18/2020 BPPV (benign paroxysmal positional vertigo), un*04/22/2020 Itching [L29.9] 07/27/2020 Orthostatic syncope [I95.1] 07/27/2020 RLS (restless legs syndrome) [G25.81] Asthma [J45.909] Benzodiazepine dependence (HCC) [F13.20] 05/29/2023 Anxiety [F41.9] 01/01/2024 Diagnosed: 01/01/2024 Chronic ethmoidal sinusitis [J32.2] 01/01/2024 Diagnosed: 01/01/2024 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*05/27/2012 Diagnosed: 01/01/2024 Disorder of bursae of shoulder region [M71.9] 01/24/2012 Diagnosed: 01/01/2024 Encounter for pre-operative examination [Z01.81*01/01/2024 Diagnosed: 01/01/2024 Family history of malignant neoplasm of colon [*10/08/2023 Diagnosed: 01/01/2024 History of appendectomy [Z90.49] 01/01/2024 Diagnosed: 01/01/2024 Hernia [K46.9] 01/01/2024 Diagnosed: 01/01/2024 History of partial surgical r (more content not included)... Normal [facility] 09-09-2024 [facility] Telephone ([facility]) SACHI GRACE ([id number]) 1935 F NFR Date Time Provider Department 09/09/24 ANITRA MANCERA During your visit today, we recorded the following information about you: Jenn Nelson 09/09/2024 2:37 PM Signed Pt called states she gets her Mammograms done at the [facility]. She would like the order sent over there. Lily Soriano LPN 09/09/2024 3:07 PM Signed Please file so we can route to [facility]. Anitra Mancera APRN.CNP 09/10/2024 7:53 AM Signed Mammogram ordered Jeyson Snowden MA 09/10/2024 9:22 AM Signed Order faxed to [facility] [phone] Patient notified via voicemail Jeyson Snowden MA Allergies As of Date: 09/09/2024 Noted Allergy Reaction VICODIN (HYDROCODONE-ACETAMINOPHE*01/2013 8 - GI Upset BUSPIRONE 04/21/2024 5 - Intolerance Comments: Anxious, jittery, felt worse, RLS worse. COCAMIDOPROPYL BETAINE 07/27/2020 2 - Rash Comments: itching, rash CODEINE 03/19/2007 8 - GI Upset PERCOCET (OXYCODONE-ACETAMINOPHEN)04/02 8 - GI Upset SULFA (SULFONAMIDE ANTIBIOTICS) 03/19/2007 4 - Hives 7 - Swelling Comments: lips swelled up TETRACYCLINE 04/29/2019 8 - GI Upset Date Reviewed: 08/21/2024 Reviewed by: Anitra Mancera APRN.AUTOMOBILE RENTAL AGENT - Fully Assessed Reason for Visit: Orders [681] Primary Visit Diagnosis:Encounter for screening mammogram for malignant neoplasm of breast [Z12.31] Order(s):KIP SCREENING Ingrid LOJA [[id number]] Order #: [id number] FUTURE Prescriptions as of 09/10/2024 - gabapentin (NEURONTIN) 100 mg capsule Take 1 capsule by mouth three times a day for 180 days. - Vit B Complex 100 Combo No.2 (B-100 COMPLEX) 100 mg TbER Take 1 tablet by mouth once daily. - fluconazole (DIFLUCAN) 100 mg tablet Take 1 tablet by mouth every afternoon. - levothyroxine (SYNTHROID) 50 mcg tablet Take 50 mcg by mouth. Take 50 mcg on Saturday, and 75 mcg all other days of the week, per ENDO - rOPINIRole (REQUIP) 0.5 mg tablet Take 1.5 tablets by mouth daily at bedtime. - MEDICATION, NON-DATABASE CBD oil - fluticasone propionate (ARMONAIR DIGIHALER) 232 mcg/actuation inhaler Inhale 1 Puff as instructed two times a day. - levalbuterol tartrate HFA 45 mcg/actuation inhaler Inhale 1-2 Puffs as instructed every 4 hours as needed for wheezing/shortness of breath. - nortriptyline (PAMELOR) 10 mg capsule Take 1 capsule by mouth every 12 hours. - Cholecalciferol, Vitamin D3, (VITAMIN D) 25 mcg (1,000 unit) cap Take 1,000 Units by mouth once daily. - clonazePAM (KLONOPIN) 0.5 mg tablet Take 0.5 mg by mouth at bedtime as needed. Dr Dupree - vit A,C,Q-Csmf-Unwbcz (PRESERVISION AREDS) 7,160-113-100 ptwy-hc-undq tab Take by mouth. - ACETAMINOPHEN 500 MG TAB Take one(1) tablet every four(4) to six(6) hours as needed for pain. Problem List As Of Date 09/09/2024 Noted Resolved Unspecified constipation [K59.00] 04/30/2006 03/16/2016 PEPTIC ULCER NOS [K27.9] 03/19/2007 GENERALIZED ANXIETY DIS [F41.1] Generalized osteoarthrosis, unspecified site [M* 12/23/2015 Myalgia and myositis [MBI1207] 05/22/2017 Diverticulosis of large intestine [K57.30] Disorder of bone and cartilage [M89.9, M94.9] Hypothyroidism [E03.9] Hyperlipidemia LDL goal <130 [E78.5] Gout, unspecified [M10.9] 12/23/2015 PEPTIC ULCER NOS [K27.9] 03/19/2007 PAROX ATRIAL TACHYCARDIA [I47.10] 03/19/2007 Disturbances of sensation of smell and taste [R*02/13/2008 05/22/2017 Chronic maxillary sinusitis [J32.0] 02/13/2008 05/22/2017 Meniere's disease, unspecified [H81.09] 05/20/2008 03/16/2016 Dizziness and giddiness [R42] 05/13/2009 12/23/2015 Cervicalgia [M54.2] 05/13/2009 12/23/2015 Osteoarthritis of both knees [M17.0] Multinodular goiter [E04.2] Syncope and collapse [R55] 04/30/2014 12/23/2015 History of knee replacement, total [Z96.659] 12/23/2015 Ageusia [R43.2] 02/23/2016 05/22/2017 Glossitis [K14.0] 02/23/2016 05/22/2017 Mild intermittent asthma without complication [*03/16/2016 Paroxysmal supraventricular tachycardia (HCC) [* Nausea [R11.0] 03/20/2018 04/29/2019 Hernia of anterior abdominal wall [K43.9] 04/18/2020 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] 04/18/2020 BPPV (benign paroxysmal positional vertigo), un*04/22/2020 Itching [L29.9] 07/27/2020 Orthostatic syncope [I95.1] 07/27/2020 RLS (restless legs syndrome) [G25.81] Asthma [J45.909] Benzodiazepine dependence (HCC) [F13.20] 05/29/2023 Anxiety [F41.9] 01/01/2024 Diagnosed: 01/01/2024 Chronic ethmoidal sinusitis [J32.2] 01/01/2024 Diagnosed: 01/01/2024 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*05/27/2012 Diagnosed: 01/01/2024 Disorder of bursae of shoulder region [M71.9] 01/24/2012 Diagnosed: 01/01/2024 Encounter for pre-operative examination [Z01.81*01/01/2024 Diagnosed: 01/01/2024 Family history of malignant neoplasm of colon [*10/08/2023 Diagnosed: 01/01/2024 History o (more content not included)... Normal [facility] CNOVon 08-21-2024 CNOV Office Visit (FAMPWS ) SACHI GRACE ([id number]) 1935 F NFR Date Time Provider Department 08/21/24 9:20 AM ANITRA MANCERA During your visit today, we recorded the following information about you: Pulse Respiration Blood pressure Weight 68/minute 16/minute 110/68 58.2 kg Anitar Mancera, COMPUTER SYSTEM SPECIALIST.AUTOMOBILE RENTAL AGENT 08/21/2024 9:45 AM Signed This is a 89 year old female who presents today with: Patient presents with: Mouth/Lip Problem HISTORY OF PRESENT ILLNESS: Sachi Grace is a 89 year old female. Patient presents with: Mouth/Lip Problem Tongue was burning and dentist treated with nystatin. Seemed to get better. 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 Now entire mouth and lips are burning. 05/11 burning. Given Diflucan, that did not help. Has an appt. With oral surgeon but not until October. On clonazepam by Dr. De Anda. 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 Dupree-every 6 months Gout, unspecified late great toe, several episodes Hypothyroidism, unspecified Multinodular goiter Dr Boateng Osteoarthritis of both knees Other and unspecified hyperlipidemia diet therapy as of 03/08 Paroxysmal supraventricular tachycardia (HCC) ablation 01/2002 ( in [place], [facility]), follows with Dr. Moreno (prn only) RLS (restless legs syndrome) Tinnitus, unspecified ear Unspecified constipation PAST SURGICAL HISTORY Procedure Laterality Date APPENDECTOMY ARTHRP KNE CONDYLEANDPLATU MEDIALANDLAT COMPARTMENTS 2012 Knee replacement, total bilateral CARPAL TUNNEL 2004 bilateral COLONOSCOPY FLX DX W/COLLJ SPEC WHEN PFRMD 12/14/2002 Colonoscopy COLONOSCOPY FLX DX W/COLLJ SPEC WHEN PFRMD 06/10/2007 COLONOSCOPY FLX DX W/COLLJ SPEC WHEN PFRMD 08/04/2013 Colonoscopy COLONOSCOPY FLX DX W/COLLJ SPEC WHEN PFRMD 10/14/2018 [facility]. [facility]-Repeat 5 years COLONOSCOPY SCREENING 11/15/2023 R Cebul no repeat due to age CORRECT BUNION,SIMPLE left ECHOCARDIOGRAM 10/18/2017 EGD 1985 bleeding ulcer EPS: SVT/VT ABLATION 2001 [facility] ESOPHAGOGASTRODUODENOSCOPY TRANSORAL DIAGNOSTIC 03/24/2018 EGD HERNIA REPAIR HX 09/2020 ventral hernia repair [facility]TER 24 HR 10/2017 LOOP RECORDER IMPLANT 01/23/2018 NASAL/SINUS ENDOSCOPY WITH SPHENOIDOTOMY Bilateral 05/15/2019 Dr. Ruffin NASAL/SINUS ENDOSCPY W/MAXILL ANTROSTOMY Bilateral 05/15/2019 Dr. Ruffin NASAL/SINUS ENDOSCPY W/TOTAL ETHMOIDECTOMY Bilateral 05/15/2019 Dr. Ruffin OPEN REPAIR OF ROTATOR CUFF ACUTE 04/2005 Dr. Mejias PAST SURGICAL HISTORY OF 10/1997 partial colectomy ([place], [facility]) PAST SURGICAL HISTORY OF 2011 nerves cut in my back STEREO LOC FOR CORE BRST BX LT 04/24/2010 left STRESS TEST 12/17/2017 TONSILLECTOMY PRIMARY/SECONDARY ALLERGIES Vicodin [Hydrocodone-Acetaminophen], Buspirone, Cocamidopropyl Betaine, Codeine, Percocet [Oxycodone-Acetaminophen], Sulfa (Sulfonamide Antibiotics), and Tetracycline MEDICATIONS Current Outpatient Medications Medication Sig levothyroxine (SYNTHROID) 50 mcg tablet Take 50 mcg by mouth. Take 50 mcg on Saturday, and 75 mcg all other days of the week, per ENDO rOPINIRole (REQUIP) 0.5 mg tablet Take 1.5 tablets by mouth daily at bedtime. MEDICATION, NON-DATABASE CBD oil fluticasone propionate (ARMONAIR DIGIHALER) 232 mcg/actuation inhaler Inhale 1 Puff as instructed two times a day. levalbuterol tartrate HFA 45 mcg/actuation inhaler Inhale 1-2 Puffs as instructed every 4 hours as needed for wheezing/shortness of breath. nortriptyline (PAMELOR) 10 mg capsule Take 1 capsule by mouth every 12 hours. Cholecalciferol, Vitamin D3, (VITAMIN D) 25 mcg (1,000 unit) cap Take 1,000 Units by mouth once daily. clonazePAM (KLONOPIN) 0.5 mg tablet Take 0.5 mg by mouth at bedtime as needed. Dr Dupree vit A,C,S-Ljgg-Dvfonf (PRESERVISION AREDS) 7,160-113-100 eqki-iu-tunt tab Take by mouth. ACETAMINOPHEN 500 MG TAB Take one(1) tablet every four(4) to six(6) hours as needed for pain. fluconazole (DIFLUCAN) 100 mg tablet Take 1 tablet by mouth every afternoon. (Patient not taking: Reported on 08/21/2024) melatonin 10 mg cap Take by mouth. (Patient not taking: Reported on 08/21/2024) No current facility-administered medications for this visit. FAMILY HISTORY Problem Relation Age of Onset Heart Mother rheumatic; 73 Colon Cancer Father dx'd age 50's Coronary Artery Disease Father age 40s, CABG (among the first done at in [place]) Stroke Sister at 58 of ruptured aneurysm Cancer Brother at 55 (tobacco, agent orange) (more content not included)... Normal [facility] CNOVon 08-12-2024 CNOV Office Visit ([facility]ST[facility] ) SACHI GRACE ([id number]) 1935 F NFR Date Time Provider Department 08/12/24 1:50 PM LINDSEY STAPLETON GSTNOR During your visit today, we recorded the following information about you: Pulse Blood pressure Weight Height 80/minute 108/62 57.2 kg 1.524 m Lindsey Stapleton PA-C 08/12/2024 2:06 PM Signed CHIEF COMPLAINT: Patient presents with: Constipation HPI Sachi Grace is a 89 year old female here today for Constipation. Surg hx pos for partial colectomy (2/2 diverticulitis), appendectomy, ventral hernia repair. Seen last for h/o constipation, weight loss. Tried Linzess 145 mcg w/o improvement so was advised to change to Ibsrela. Pt contacted office 04/2024 and reported she didn't want to try new medication at that time. Weight is stable. Currently taking Miralax in the morning, fiber powder in pm with good relief. Bms are daily, formed consistency, no blood. Father w/ hx of colon CA dx in 60s MRCP 06/2024 IMPRESSION: 1.4 CM CYSTIC LESION WITH SEPTATIONS IN THE PANCREATIC HEAD. A FOLLOW-UP STUDY COULD BE OBTAINED IN ONE YEAR TO ASSESS FOR ANY CHANGE IN SIZE. CT abd 04/2024 IMPRESSION: No acute findings in the abdomen or pelvis. 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 Stable asymmetrically RIGHT adnexa compared to LEFT, stable from prior. Consider further evaluation dedicated pelvic ultrasound. KUB 03/2024 moderate/large stool burden IMPRESSION: NO ACUTE ABDOMINAL PATHOLOGY VISUALIZED Colon 11/2023 [facility] Impression: - Hemorrhoids found on perianal exam. - Diverticulosis in the sigmoid colon. - The examination was otherwise normal. - No specimens collected. OV 04/2024 Sachi Grace is a 88 year old female with PMHx pos for asthma, fibromyalgia, SVT who presents for Constipation (XR 03/24/24. Dulcolax somewhat helps). Surg hx pos for partial colectomy (2/2 diverticulitis), appendectomy, ventral hernia repair. Admits to constipation since 12/2023, states prior to change in Bms was typically going regularly. Stopped buspar 01/2024 due to suspected S/Es constipation but reports constipation persisted even after discontinuation. Lost 7 lbs since sx started and includes weight has been difficult for her to maintain. Will go several weeks without a BM. Has recently started probiotics 2 days ago. Previously tried fibers, regular Miralax w/o any improvement. Notes excessive flatulence daily. Denies abd pain, N/V, bloating, melena. Current Outpatient Medications Medication Sig fluconazole (DIFLUCAN) 100 mg tablet Take 1 tablet by mouth every afternoon. levothyroxine (SYNTHROID) 50 mcg tablet Take 50 mcg by mouth. Take 50 mcg on Saturday, and 75 mcg all other days of the week, per ENDO rOPINIRole (REQUIP) 0.5 mg tablet Take 1.5 tablets by mouth daily at bedtime. melatonin 10 mg cap Take by mouth. MEDICATION, NON-DATABASE CBD oil fluticasone propionate (ARMONAIR DIGIHALER) 232 mcg/actuation inhaler Inhale 1 Puff as instructed two times a day. levalbuterol tartrate HFA 45 mcg/actuation inhaler Inhale 1-2 Puffs as instructed every 4 hours as needed for wheezing/shortness of breath. nortriptyline (PAMELOR) 10 mg capsule Take 1 capsule by mouth every 12 hours. Cholecalciferol, Vitamin D3, (VITAMIN D) 25 mcg (1,000 unit) cap Take 1,000 Units by mouth once daily. clonazePAM (KLONOPIN) 0.5 mg tablet Take 0.5 mg by mouth at bedtime as needed. Dr Dupree vit A,C,Y-Ndrh-Ngvgqg (PRESERVISION AREDS) 7,160-113-100 tqsn-bg-yjmb tab Take by mouth. ACETAMINOPHEN 500 MG TAB Take one(1) tablet every four(4) to six(6) hours as needed for pain. No current facility-administered medications for this visit. ALLERGIES Allergen Reactions Vicodin [Hydrocodon* GI Upset Buspirone Intolerance Anxious, jittery, felt worse, RLS worse. Cocamidopropyl Beta* Rash itching, rash Codeine GI Upset Percocet [Oxycodone* GI Upset Sulfa (Sulfonamide * Hives, Swelling lips swelled up Tetracycline GI Upset Social History Tobacco Use Smoking status: Never Smokeless tobacco: Never Vaping Use Vaping status: Never Used Substance Use Topics Alcohol use: No Drug use: No PAST MEDICAL HISTORY No date: Anosmia Comment: loss of taste, not smell No date: Asthma Comment: moderate persistant No date: Bilateral sensorineural hearing loss No date: Disorder of bone and cartilage, unspecified Comment: osteopenia, on actonel (Wietecha) No date: Diverticulitis Comment: s/p partial colectomy No date: Family history of colon cancer in father No date: Fibromyalgia 1994: Generalized anxiety disorder Comment: Dr. Dupree-every 6 months late : Gout, unspecified Comment: great toe, several episodes No date: Hypothyroidism, unspecified No date: Multinodular goiter Comment: (more content not included)... [facility] TSH SerPl-aCncon 07-29-2024 TSH Qn 1.820 m[IU]/L Normal 0.270-4.200 [facility] Comment on above: Order Comment: Speci men Type: BLOOD SPECIMENOrdering Facility: [facility] Address: [facility] [place] [address] Performed By: #### 3 016-3 ####[facility] LAB[facility]IA [id number] [place] [address] [place] 125on 07-09-2024 Cancer Ag 125 Qn 10 [arb'U]/mL NINF - 39 U/mL [facility] Comment on above: CA 125 test methodol ogy used is the Electrochemiluminescence Immunoassay by [facility]. Results obtained with different methods or kits cannot be used interchangeably. The reference interval is based on the 95th percentile of 240 apparently healthy premenopausal and postmenopausal women. At a cutoff value of 65 U/mL, the test sensitivity to distinguish ovarian carcinoma (FIGO stage I to IV) versus benign gynecological disease is 79%, with a specificity of 82%. Reference: Cancer Antigen 125 (CA 125 II) [package insert V 1.0 Tunisian]. [facility], [place], [place] (September 2015) Cancer Ag 125 Qnon Interpretation and review of laboratory results Normal [facility] CNOVon 07-08-2024 CNOV Office Visit (OBGYWM ) SACHI GRACE ([id number]) 1935 F NFR Date Time Provider Department 07/08/24 2:00 PM SHOSHANA CHAMBERS OBMARVINWKevin During your visit today, we recorded the following information about you: Blood pressure Weight 112/74 58.5 kg Shoshana Chambers APRN.AILYN 07/17/2024 8:29 AM Signed Sachi Grace is a 88 year old female who presents for problem visit HPI: Patient presents today for follow-up ultrasound and MRI. On MRI there is a stable asymmetric right adnexa compared to the left but stable from prior imaging. Patient denies any pain, any vaginal bleeding, or other concerns today. Denies any bloating, early satiety. Referral due to imaging. 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 Dupree-every 6 months late : Gout, unspecified Comment: great toe, several episodes No date: Hypothyroidism, unspecified No date: Multinodular goiter Comment: Dr Boateng No date: Osteoarthritis of both knees No date: Other and unspecified hyperlipidemia Comment: diet therapy as of 03/08 No date: Paroxysmal supraventricular tachycardia (HCC) Comment: ablation 01/2002 ( in [place], [facility]), follows with Dr. Moreno (prn only) No date: RLS (restless legs syndrome) No date: Tinnitus, unspecified ear No date: Unspecified constipation PAST SURGICAL HISTORY No date: APPENDECTOMY 2012: ARTHRP KNE CONDYLEANDPLATU MEDIALANDLAT COMPARTMENTS Comment: Knee replacement, total bilateral 2005: CARPAL TUNNEL Comment: bilateral 12/14/2002: COLONOSCOPY FLX DX W/COLLJ SPEC WHEN PFRMD Comment: Colonoscopy 06/10/2007: COLONOSCOPY FLX DX W/COLLJ SPEC WHEN PFRMD 08/04/2013: COLONOSCOPY FLX DX W/COLLJ SPEC WHEN PFRMD Comment: Colonoscopy 10/14/2018: COLONOSCOPY FLX DX W/COLLJ SPEC WHEN [facility]: COLONOSCOPY SCREENING Comment: Alvin Tabares no repeat due to age No date: CORRECT BUNION,SIMPLE Comment: left 10/18/2017: ECHOCARDIOGRAM 1985: EGD Comment: bleeding ulcer 2001: EPS: SVT/VT ABLATION Comment: [facility] 03/24/2018: ESOPHAGOGASTRODUODENOSCOPY TRANSORAL DIAGNOSTIC Comment: EGD 09/2020: HERNIA REPAIR HX Comment: ventral hernia repair 10/2017: [facility] 24 HR 01/23/2018: LOOP RECORDER IMPLANT 05/15/2019: NASAL/SINUS ENDOSCOPY WITH SPHENOIDOTOMY; Bilateral Comment: Dr. Ruffin 05/15/2019: NASAL/SINUS ENDOSCPY W/MAXILL ANTROSTOMY; Bilateral Comment: Dr. Ruffin 05/15/2019: NASAL/SINUS ENDOSCPY W/TOTAL ETHMOIDECTOMY; Bilateral Comment: Dr. Ruffin 04/2005: OPEN REPAIR OF ROTATOR CUFF ACUTE Comment: Dr. Mejias 10/1997: PAST SURGICAL HISTORY OF Comment: partial colectomy ([place], [facility]) 2011: PAST SURGICAL HISTORY OF Comment: nerves cut in my back 04/24/2010: STEREO LOC FOR CORE BRST BX LT Comment: left 12/17/2017: STRESS TEST No date: TONSILLECTOMY PRIMARY/SECONDARY FAMILY HISTORY Problem Relation Age of Onset Heart Mother rheumatic; 73 Colon Cancer Father dx'd age 50's Coronary Artery Disease Father age 40s, CABG (among the first done at in [place]) Stroke Sister at 58 of ruptured aneurysm Cancer Brother at 55 (tobacco, agent orange) DVT Sister Social History Tobacco Use Smoking status: Never Smokeless tobacco: Never Vaping Use Vaping Use: Never used Substance Use Topics Alcohol use: No Drug use: No Current Outpatient Medications Medication Sig levothyroxine (SYNTHROID) 50 mcg tablet Take 50 mcg by mouth. Take 50 mcg on Saturday, and 75 mcg all other days of the week, per ENDO rOPINIRole (REQUIP) 0.5 mg tablet Take 1.5 tablets by mouth daily at bedtime. melatonin 10 mg cap Take by mouth. MEDICATION, NON-DATABASE CBD oil fluticasone propionate (ARMONAIR DIGIHALER) 232 mcg/actuation inhaler Inhale 1 Puff as instructed two times a day. levalbuterol tartrate HFA 45 mcg/actuation inhaler Inhale 1-2 Puffs as instructed every 4 hours as needed for wheezing/shortness of breath. nortriptyline (PAMELOR) 10 mg capsule Take 1 capsule by mouth every 12 hours. Cholecalciferol, Vitamin D3, (VITAMIN D) 25 mcg (1,000 unit) cap Take 1,000 Units by mouth (more content not included)... Normal [facility] Cancer Ag125 SerPl-aCncon Cancer Ag 125 Qn 10 [arb'U]/mL Normal <39 [facility] Comment on above: Order Comment: Speci men Type: BLOOD SPECIMEN Ordering Facility: [facility] Address: [address] [place] [address] Result Comment: CA 1 25 test methodology used is the Electrochemiluminescence Immunoassay by [facility]. Results obtained with different methods or kits cannot be used interchangeably. The reference interval is based on the 95th percentile of 240 apparently healthy premenopausal and postmenopausal women. At a cutoff value of 65 U/mL, the test sensitivity to distinguish ovarian carcinoma (FIGO stage I to IV) versus benign gynecological disease is 79%, with a specificity of 82%. Reference: Cancer Antigen 125 (CA 125 II) [package insert V 1.0 [place]ian]. [facility], [place], [place] (September 2015) Performed By: #### 3 016-3, 92327-2, 96910-0, LIPNF #### [facility] CLIA [id number] [address] [place] [address] [place] MRI 3D POST PROCESSINGon MRI 3D POST PROCESSING * * *Final Report* * * DATE OF EXAM: Jun 26 2024 9:50AM JEFFREY 0280 - MRI 3D POST PROCESSING / PROCEDURE REASON: multiple diagnoses * * * * Physician Interpretation * * * * MRI/MRCP ABDOMEN WITHOUT AND WITH CONTRAST, WITH 3-D RECONSTRUCTIONS 06/26/2024 9:50 AM HISTORY: Abnormal weight loss Pancreatic lesion TECHNIQUE: Multisequential, multiplanar MR imaging of the abdomen was performed both prior to and following the administration of intravenous gadolinium-based contrast. 3D image post-processing was performed at the request of the referring physician, on the MR scanner workstation under physician supervision. Contrast: IV: 12 mL of Dotarem COMPARISON: CT abdomen and pelvis 04/23/2024 RESULT: Pancreas: 1.4 cm cystic lesion with septations in the head of the pancreas (4:39). There are a few subcentimeter cystic lesions in the body and tail of the pancreas. No duct dilation. No divisum. Biliary: No duct dilation or filling defect. Gallbladder is unremarkable. 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 Normal morphology. Spleen: No mass. No splenomegaly. Adrenals: No mass. Kidneys: The kidneys enhance symmetrically. No hydronephrosis. No enhancing renal mass. GI tract: No bowel dilatation or wall thickening. Lymph nodes: No abdominal lymphadenopathy Mesentery/peritoneum: No mass or ascites Vasculature: No abdominal aortic aneurysm. Celiac axis and SMA are patent. Portal vein and branches, splenic vein, superior mesenteric vein and hepatic veins are patent. - - IMPRESSION: 1.4 CM CYSTIC LESION WITH SEPTATIONS IN THE PANCREATIC HEAD. A FOLLOW-UP STUDY COULD BE OBTAINED IN ONE YEAR TO ASSESS FOR ANY CHANGE IN SIZE. [facility] Trans[facility] Date/Time: Jun 30 2024 7:49A Dictated by : ARCELIA DENISE MD This examination was interpreted and the report reviewed and electronically signed by: ARCELIA DENISE MD on Jun 30 2024 8:11AM EST [id number] Normal [facility] MRI PANC/JENNIFER WO/W IVCONon MRI PANC/JENNIFER WO/W IVCON * * *Final Report* * * DATE OF EXAM: Jun 26 2024 9:50AM [facility] 0730 - MRI PANC/JENNIFER WO/W IVCON / PROCEDURE REASON: multiple diagnoses * * * * Physician Interpretation * * * * MRI/MRCP ABDOMEN WITHOUT AND WITH CONTRAST, WITH 3-D RECONSTRUCTIONS 06/26/2024 9:50 AM HISTORY: Abnormal weight loss Pancreatic lesion TECHNIQUE: Multisequential, multiplanar MR imaging of the abdomen was performed both prior to and following the administration of intravenous gadolinium-based contrast. 3D image post-processing was performed at the request of the referring physician, on the MR scanner workstation under physician supervision. Contrast: IV: 12 mL of Dotarem COMPARISON: CT abdomen and pelvis 04/23/2024 RESULT: Pancreas: 1.4 cm cystic lesion with septations in the head of the pancreas (4:39). There are a few subcentimeter cystic lesions in the body and tail of the pancreas. No duct dilation. No divisum. Biliary: No duct dilation or filling defect. Gallbladder is unremarkable. 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 Normal morphology. Spleen: No mass. No splenomegaly. Adrenals: No mass. Kidneys: The kidneys enhance symmetrically. No hydronephrosis. No enhancing renal mass. GI tract: No bowel dilatation or wall thickening. Lymph nodes: No abdominal lymphadenopathy Mesentery/peritoneum: No mass or ascites Vasculature: No abdominal aortic aneurysm. Celiac axis and SMA are patent. Portal vein and branches, splenic vein, superior mesenteric vein and hepatic veins are patent. - - IMPRESSION: 1.4 CM CYSTIC LESION WITH SEPTATIONS IN THE PANCREATIC HEAD. A FOLLOW-UP STUDY COULD BE OBTAINED IN ONE YEAR TO ASSESS FOR ANY CHANGE IN SIZE. Horse Racer: BINTA Transcribe Date/Time: Jun 30 2024 7:49A Dictated by : ARCELIA DENISE MD This examination was interpreted and the report reviewed and electronically signed by: ARCELIA DENISE MD on Jun 30 2024 8:11AM EST [id number] Normal [facility] 06-18-2024 [facility] Telephone ([facility]) SACHI GRACE ([id number]) 1935 F NFR Date Time Provider Department 06/18/24 ANITRA MANCERA [facility] During your visit today, we recorded the following information about you: Anitra Mancera APRN.[facility] 06/18/2024 12:46 PM Signed Please let patient know that she is still getting a little too much levothyroxine. Take 2 tablets every only with 1 tablet on all other days of the week. We will recheck her TSH when she sees gastroenterology in August. She may have it drawn the same day. Yarelis Oliva MA 06/18/2024 1:48 PM Signed Message left for pt to call back for results. Halima Hyman MA, RN 06/18/2024 4:25 PM Signed Patient returned call and given message below. She reports her Endo specialist in [place] contacted her yesterday and made changes to her thyroid medication and she plans to follow that. She states she is now taking one and a half pills 6 days per week and one pill on Sundays onlyMs. YARY Patel Lisa, MA 06/18/2024 5:19 PM Signed Pt has 50 mcg tablet dispensed by the [facility], so that would make dosage 75 mcg 6 days a week and 50 mcg on Saturday. Med chart updated Allergies As of Date: 06/18/2024 Noted Allergy Reaction VICODIN (HYDROCODONE-ACETAMINOPHE*01/2013 8 - GI Upset BUSPIRONE 04/21/2024 5 - Intolerance Comments: Anxious, jittery, felt worse, RLS worse. COCAMIDOPROPYL BETAINE 07/27/2020 2 - Rash Comments: itching, rash CODEINE 03/19/2007 8 - GI Upset PERCOCET (OXYCODONE-ACETAMINOPHEN)04/02 8 - GI Upset SULFA (SULFONAMIDE ANTIBIOTICS) 03/19/2007 4 - Hives 7 - Swelling Comments: lips swelled up TETRACYCLINE 04/29/2019 8 - GI Upset Date Reviewed: 06/16/2024 Reviewed by: Anitra Mancera APRN.AUTOMOBI[employer] RENTAL [employer]ENT - Fully Assessed Reason for Visit: Results [95] Visit Diagnosis:Acquired hypothyroidism [E03.9] Order(s):THYROID STIMULATING HORMONE [SQTSH] Order #: [id number] FUTURE Prescriptions as of 06/18/2024 - levothyroxine (SYNTHROID) 50 mcg tablet Take 50 mcg by mouth. Take 50 mcg on Saturday, and 75 mcg all other days of the week, per ENDO - rOPINIRole (REQUIP) 0.5 mg tablet Take 1.5 tablets by mouth daily at bedtime. - melatonin 10 mg cap Take by mouth. - MEDICATION, NON-DATABASE CBD oil - fluticasone propionate (ARMONAIR DIGIHALER) 232 mcg/actuation inhaler Inhale 1 Puff as instructed two times a day. - levalbuterol tartrate HFA 45 mcg/actuation inhaler Inhale 1-2 Puffs as instructed every 4 hours as needed for wheezing/shortness of breath. - nortriptyline (PAMELOR) 10 mg capsule Take 1 capsule by mouth every 12 hours. - Cholecalciferol, Vitamin D3, (VITAMIN D) 25 mcg (1,000 unit) cap Take 1,000 Units by mouth once daily. - clonazePAM (KLONOPIN) 0.5 mg tablet Take 0.5 mg by mouth at bedtime as needed. Dr Dupree - vit A,C,M-Pjfz-Mzvlja (PRESERVISION AREDS) 7,160-113-100 lnot-ps-vkhe tab Take by mouth. - ACETAMINOPHEN 500 MG TAB Take one(1) tablet every four(4) to six(6) hours as needed for pain. Problem List As Of Date 06/18/2024 Noted Resolved Unspecified constipation [K59.00] 04/30/2006 03/16/2016 PEPTIC ULCER NOS [K27.9] 03/19/2007 GENERALIZED ANXIETY DIS [F41.1] Generalized osteoarthrosis, unspecified site [M* 12/23/2015 Myalgia and myositis [IHC9083] 05/22/2017 Diverticulosis of large intestine [K57.30] Disorder of bone and cartilage [M89.9, M94.9] Hypothyroidism [E03.9] Hyperlipidemia LDL goal <130 [E78.5] Gout, unspecified [M10.9] 12/23/2015 PEPTIC ULCER NOS [K27.9] 03/19/2007 PAROX ATRIAL TACHYCARDIA [I47.10] 03/19/2007 Disturbances of sensation of smell and taste [R*02/13/2008 05/22/2017 Chronic maxillary sinusitis [J32.0] 02/13/2008 05/22/2017 Meniere's disease, unspecified [H81.09] 05/20/2008 03/16/2016 Dizziness and giddiness [R42] 05/13/2009 12/23/2015 Cervicalgia [M54.2] 05/13/2009 12/23/2015 Osteoarthritis of both knees [M17.0] Multinodular goiter [E04.2] Syncope and collapse [R55] 04/30/2014 12/23/2015 History of knee replacement, total [Z96.659] 12/23/2015 Ageusia [R43.2] 02/23/2016 05/22/2017 Glossitis [K14.0] 02/23/2016 05/22/2017 Mild intermittent asthma without complication [*03/16/2016 Paroxysmal supraventricular tachycardia (HCC) [* Nausea [R11.0] 03/20/2018 04/29/2019 Hernia of anterior abdominal wall [K43.9] 04/18/2020 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] 04/18/2020 BPPV (benign paroxysmal positional vertigo), un*04/22/2020 Itching [L29.9] 07/27/2020 Orthostatic syncope [I95.1] 07/27/2020 RLS (restless legs syndrome) [G25.81] Asthma [J45.909] Benzodiazepine dependence (HCC) [F13.20] 05/29/2023 Anxiety [F41.9] 01/01/2024 Chronic ethmoidal sinusitis [J32.2] 01/01/2024 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 Normal [facility] Basic metabolic 2000 panelon 06-16-2024 Anion gap [Moles/Vol] 11 mmol/L Normal 8-15 [facility] Comment on above: Order Comment: Speci men Type: BLOOD SPECIMENOrdering Facility: [facility] Address: [address] [place] [address] Performed By: #### 2 4321-2, 3016-3 ####[facility] LABCLIA [id number] [facility] [place] [address] [place] Calcium [Mass/Vol] 9.7 mg/dL Normal 8.5-10.2 [facility] Comment on above: Order Comment: Speci men Type: BLOOD SPECIMENOrdering Facility: [facility] Address: [address] [id number] Performed By: #### 2 4321-2, 6-3 ####[facility] LABCLIA [id number] [facility] [place] [address] [place] Chloride [Moles/Vol] 99 mmol/L Normal 98-107 [facility] Comment on above: Order Comment: Speci men Type: BLOOD SPECIMENOrdering Facility: [facility] Address: [address] [place] [address] Performed By: #### 2 4321-2, 3015-3 ####[facility] LABCLIA [id number] [place] [address] [place] CO2 [Moles/Vol] 27 mmol/L Normal 22-30 [facility] Comment on above: Order Comment: Speci men Type: BLOOD SPECIMENOrdering Facility: [facility] Address: [address] [place], [place] [address] Performed By: #### 2 4321-2, 3015-3 ####[facility] LABCLIA [id number] [place] [address] [place] Creatinine [Mass/Vol] 0.59 mg/dL Normal 0.58-0.96 [facility] Comment on above: Order Comment: Speci men Type: BLOOD SPECIMENOrdering Facility: [facility] Address: [address] [place] [address] Performed By: #### 2 4321-2, 6-3 ####[facility] LABCLIA [id number] [place] [address] [place] Creatinine and Glomerular filtration rate.predicted panel (S/P/Bld) 87 mL/min/1.73m??? Normal >=60 [facility] Comment on above: Order Comment: Speci men Type: BLOOD SPECIMENOrdering Facility: [facility] Address: [address] [place] [address] Result Comment: Solitario mated Glomerular Filtration Rate (eGFR) is calculated using the 2020 CKD-EPI creatinine equation. This equation utilizes serum creatinine, sex, and age as parameters. The creatinine assay has traceable calibration to isotope dilution-mass spectrometry. Refer to KDIGO guidelines for clinical interpretation. In patients with unstable renal function, e.g. those with acute kidney injury, the eGFR may not accurately reflect actual GFR. Performed By: #### 2 4321-2, 3016-3 ####[facility] LABIA [id number] [place] [address] [place] Glucose [Mass/Vol] 78 mg/dL Normal 74-99 [facility] Comment on above: Order Comment: [place] Type: BLOOD SPECIMENOrdering Facility: [facility] Address: [address] [place] [address] Result Comment: The [place] Diabetes Association (ADA) provides guidance for cutoff values for fasting glucose and random glucose. The ADA defines fasting as no caloric intake for at least 8 hours. Fasting plasma glucose results between 100 to 125 mg/dL indicate increased risk for diabetes (prediabetes). Fasting plasma glucose results greater than or equal to 126 mg/dL meet the criteria for diagnosis of diabetes. In the absence of unequivocal hyperglycemia, results should be confirmed by repeat testing. In a patient with classic symptoms of hyperglycemia or hyperglycemic crisis, random plasma glucose results greater than or equal to 200 mg/dL meet the criteria for diagnosis of diabetes. Reference: Standards of Medical Care in Diabetes 2016, [place] [employer] Association. Diabetes Care. 2016.39(Suppl 1). Performed By: #### 2 4321-2, 3016-3 ####[facility] LABIA [id number] [place] [id number] [place] Potassium [Moles/Vol] 4.6 mmol/L Normal 3.7-5.1 [facility] Comment on above: Order Comment: Pearl [place] Type: BLOOD SPECIMENOrdering Facility: [facility] Address: [address] [place] [address] Performed By: #### 2 4321-2, 3016-3 ####[facility] LABCLIA [id number] [place] [address] [place] Sodium [Moles/Vol] 137 mmol/L Normal 136-144 [facility] Comment on above: Order Comment: Speci men Type: BLOOD SPECIMENOrdering Facility: [facility] Address: [address] [place] [address] Performed By: #### 2 4321-2, 6-3 ####[facility] LABCLIA [id number] [place] [address] [place] Urea nitrogen [Mass/Vol] 14 mg/dL Normal 7-21 [facility] Comment on above: Order Comment: Speci men Type: BLOOD SPECIMENOrdering Facility: [facility] Address: [address] [place] [address] Performed By: #### 2 4321-2, 3015-3 ####[facility] LABCLIA [id number] [place] [address] [place] CBC W Auto Differential pane l (Bld)on 06-16-2024 Basophils (Bld) [#/Vol] 0.06 10*3/uL [facility] Basophils/100 WBC (Bld) 1.3 % [facility] Differential cell count method Nom (Bld) Auto [facility] Eosinophils (Bld) [#/Vol] 0.52 10*3/uL High [facility] Eosinophils/100 WBC (Bld) 11.2 % [facility] Erythrocyte distribution width (RBC) [Ratio] 15.1 % High 11.5 - 15.0 % [facility] Hematocrit (Bld) [Volume fraction] 41.1 % 36.0 - 46.0 % [facility] Hemoglobin (Bld) [Mass/Vol] 13.0 g/dL 11.5 - 15.5 g/dL [facility] Immature granulocytes (Bld) [#/Vol] [facility] Immature granulocytes/100 WBC (Bld) 0.2 % [facility] Interpretation and review of laboratory results Abnormal [facility] Lymphocytes (Bld) [#/Vol] 0.77 10*3/uL Low [facility] Lymphocytes/100 WBC (Bld) 16.6 % [facility] MCH (RBC) [Entitic mass] 28.4 pg 26.0 - 34.0 pg [facility] MCHC (RBC) [Mass/Vol] 31.6 g/dL 30.5 - 36.0 g/dL [facility] MCV (RBC) [Entitic vol] 89.9 fL 80.0 - 100.0 fL [facility] Monocytes (Bld) [#/Vol] 0.74 10*3/uL [facility] Monocytes/100 WBC (Bld) 15.9 % [facility] Neutrophils (Bld) [#/Vol] 2.55 10*3/uL [facility] Neutrophils/100 WBC (Bld) 54.8 % [facility] Nucleated RBC (Bld) [#/Vol] NINF [facility] Nucleated RBC/100 WBC (Bld) [Ratio] 0.0 % /100 WBC [facility] Platelet mean volume (Bld) [Entitic vol] 10.0 fL 9.0 - 12.7 fL [facility] Platelets (Bld) [#/Vol] 356 10*3/uL [facility] RBC (Bld) [#/Vol] 4.57 10*6/uL 3.90 - 5.2 0 m/uL [facility] WBC (Bld) [#/Vol] 4.65 10*3/uL [facility] Basophils (Bld) [#/Vol] 0.06 10*3/uL Normal <0.11 [facility] Comment on above: Order Comment: Speci men Type: BLOOD SPECIMEN Ordering Facility: [facility] Address: [address] [place] [address] Performed By: #### 3 016-3, 58146-2, 75841-8, LIPNF #### [facility] CLIA [id number] [address] [place] [address] [place] Basophils/100 WBC (Bld) 1.3 % Normal [facility] Comment on above: Order Comment: Speci men Type: BLOOD SPECIMEN Ordering Facility: [facility] Address: [address] [place] [address] Performed By: #### 3 016-3, 28232-1, 74736-3, LIPNF #### [facility] CLIA [id number] [address] [place] [address] [place] Differential cell count method Nom (Bld) Auto Normal [facility] Comment on above: Order Comment: Speci men Type: BLOOD SPECIMEN Ordering Facility: [facility] Address: [address] [place] [address] Performed By: #### 3 016-3, 58870-9, 35677-5, LIPNF #### [facility] CLIA [id number] [address] [place] [address] [place] Eosinophils (Bld) [#/Vol] 0.52 10*3/uL High <0.46 [facility] Comment on above: Order Comment: Speci men Type: BLOOD SPECIMEN Ordering Facility: [facility] Address: [address] [place] [address] Performed By: #### 3 016-3, 54323-3, 73493-2, LIPNF #### [facility] CLIA [id number] [address] [place] [address] [place] Eosinophils/100 WBC (Bld) 11.2 % Normal [facility] Comment on above: Order Comment: Speci men Type: BLOOD SPECIMEN Ordering Facility: [facility] Address: [address] [place] [address] Performed By: #### 3 016-3, 48777-7, 94419-1, LIPNF #### [facility] CLIA [id number] [address] [place] [address] [place] Erythrocyte distribution width (RBC) [Ratio] 15.1 % High 11.5-15.0 [facility] Comment on above: Order Comment: Speci men Type: BLOOD SPECIMEN Ordering Facility: [facility] Address: [address] [place] [address] Performed By: #### 3 016-3, 30326-5, 82397-2, LIPNF #### [facility] CLIA [id number] [address] [place] [address] [place] Hematocrit (Bld) [Volume fraction] 41.1 % Normal 36.0-46.0 [facility] Comment on above: Order Comment: Speci men Type: BLOOD SPECIMEN Ordering Facility: [facility] Address: [address] [place] [address] Performed By: #### 3 016-3, 87057-0, 40906-4, LIPNF #### [facility] CLIA [id number] [address] [place] [address] [place] Hemoglobin (Bld) [Mass/Vol] 13.0 g/dL Normal 11.5-15.5 [facility] Comment on above: Order Comment: Speci men Type: BLOOD SPECIMEN Ordering Facility: [facility] Address: [address] [place] [address] Performed By: #### 3 016-3, 15660-0, 81640-0, LIPNF #### [facility] CLIA [id number] [address] [place] [address] [place] Immature granulocytes (Bld) [#/Vol] 10*3/uL Normal <0.10 [facility] Comment on above: Order Comment: Speci men Type: BLOOD SPECIMEN Ordering Facility: [facility] Address: [address] [place] [address] Performed By: #### 3 016-3, 86027-5, 40344-6, LIPNF #### [facility] CLIA [id number] [address] [place] [address] [place] Immature granulocytes/100 WBC (Bld) 0.2 % Normal [facility] Comment on above: Order Comment: Speci men Type: BLOOD SPECIMEN Ordering Facility: [facility] Address: [address] [place] [address] Performed By: #### 3 016-3, 15506-4, 06658-6, LIPNF #### [facility] CLIA [id number] [address] [place] [address] [place] Lymphocytes (Bld) [#/Vol] 0.77 10*3/uL Low 1.00-4.00 [facility] Comment on above: Order Comment: Speci men Type: BLOOD SPECIMEN Ordering Facility: [facility] Address: [address] [place] [address] Performed By: #### 3 016-3, , 35411-6, LIPNF #### [facility] CLIA [id number] [address] [place] [address] [place] Lymphocytes/100 WBC (Bld) 16.6 % Normal [facility] Comment on above: Order Comment: Speci men Type: BLOOD SPECIMEN Ordering Facility: [facility] Address: [address] [place] [address] Performed By: #### 3 016-3, 31428-6, , LIPNF #### [facility] CLIA [id number] [address] [place] [address] [place] MCH (RBC) [Entitic mass] 28.4 pg Normal 26.0-34.0 [facility] Comment on above: Order Comment: Speci men Type: BLOOD SPECIMEN Ordering Facility: [facility] Address: [address] [place] [address] Performed By: #### 3 016-3, , , LIPNF #### [facility] CLIA [id number] [address] [place] [address] [place] MCHC (RBC) [Mass/Vol] 31.6 g/dL Normal 30.5-36.0 [facility] Comment on above: Order Comment: Speci men Type: BLOOD SPECIMEN Ordering Facility: [facility] Address: [address] [place] [address] Performed By: #### 3 016-3, 42044-1, 61693-5, LIPNF #### [facility] CLIA [id number] [address] [place] [address] [place] MCV (RBC) [Entitic vol] 89.9 fL Normal 80.0-100.0 [facility] Comment on above: Order Comment: Speci men Type: BLOOD SPECIMEN Ordering Facility: [facility] Address: [address] [place] [address] Performed By: #### 3 016-3, 82101-8, 24221-9, LIPNF #### [facility] CLIA [id number] [address] [place] [address] [place] Monocytes (Bld) [#/Vol] 0.74 10*3/uL Normal <0.87 [facility] Comment on above: Order Comment: Speci men Type: BLOOD SPECIMEN Ordering Facility: [facility] Address: [address] [place] [address] Performed By: #### 3 016-3, , , LIPNF #### [facility] CLIA [id number] [address] [place] [address] [place] Monocytes/100 WBC (Bld) 15.9 % Normal [facility] Comment on above: Order Comment: Speci men Type: BLOOD SPECIMEN Ordering Facility: [facility] Address: [address] [place] [address] Performed By: #### 3 016-3, 05943-8, 19442-6, LIPNF #### [facility] CLIA [id number] [address] [place] [address] [place] Neutrophils (Bld) [#/Vol] 2.55 10*3/uL Normal 1.45-7.50 [facility] Comment on above: Order Comment: Speci men Type: BLOOD SPECIMEN Ordering Facility: [facility] Address: [address] [place] [address] Performed By: #### 3 016-3, , , LIPNF #### [facility] CLIA [id number] [address] [place] [address] [place] Neutrophils/100 WBC (Bld) 54.8 % Normal [facility] Comment on above: Order Comment: Speci men Type: BLOOD SPECIMEN Ordering Facility: [facility] Address: [address] [place] [address] Performed By: #### 3 016-3, , , LIPNF #### [facility] CLIA [id number] [address] [place] [address] [place] Nucleated RBC (Bld) [#/Vol] 10*3/uL Normal <0.01 [facility] Comment on above: Order Comment: Speci men Type: BLOOD SPECIMEN Ordering Facility: [facility] Address: [address] [place] [address] Performed By: #### 3 016-3, , , LIPNF #### [facility] CLIA [id number] [address] [place] [address] [place] Nucleated RBC/100 WBC (Bld) [Ratio] 0.0 /100 WBC Normal [facility] Comment on above: Order Comment: Speci men Type: BLOOD SPECIMEN Ordering Facility: [facility] Address: [address] [place] [address] Performed By: #### 3 016-3, , , LIPNF #### [facility] CLIA [id number] [address] [place] [address] [place] Platelet mean volume (Bld) [Entitic vol] 10.0 fL Normal 9.0-12.7 [facility] Comment on above: Order Comment: Speci men Type: BLOOD SPECIMEN Ordering Facility: [facility] Address: [address] [place] [address] Performed By: #### 3 016-3, , , LIPNF #### [facility] CLIA [id number] [address] [place] [address] [place] Platelets (Bld) [#/Vol] 356 10*3/uL Normal 150-400 [facility] Comment on above: Order Comment: Speci men Type: BLOOD SPECIMEN Ordering Facility: [facility] Address: [address] [place] [address] Performed By: #### 3 016-3, , , LIPNF #### [facility] CLIA [id number] [address] [place] [address] [place] RBC (Bld) [#/Vol] 4.57 10*6/uL Normal 3.90-5.20 [facility] Comment on above: Order Comment: Speci men Type: BLOOD SPECIMEN Ordering Facility: [facility] Address: [address] [place] [address] Performed By: #### 3 016-3, , , LIPNF #### [facility] CLIA [id number] [address] [place] [address] [place] WBC (Bld) [#/Vol] 4.65 10*3/uL Normal 3.70-11.00 [facility] Comment on above: Order Comment: Speci men Type: BLOOD SPECIMEN Ordering Facility: [facility] Address: [address] [place] [address] Performed By: #### 3 016-3, , , LIPNF #### [facility] CLIA [id number] [address] [place] [address] [place] CNOVon 06-16-2024 CNOV Office Visit (FAMPWS ) SACHI GRACE ([id number]) 1935 F NFR Date Time Provider Department 06/16/24 9:20 AM ANITRA MANCERA During your visit today, we recorded the following information about you: Pulse Respiration Blood pressure Weight 84/minute 18/minute 114/72 58.1 kg Anitra Mancera, COMPUTER SYSTEM SPECIALIST.AUTOMOBILE RENTAL AGENT 06/16/2024 9:47 AM Signed This is a 88 year old female who presents today with: Patient presents with: Follow Up: Review CT results HISTORY OF PRESENT ILLNESS: Sachi Grace is a 88 year old female. Patient presents with: Follow Up: Review CT results Bowels moving every day, little pieces. No pain. CT showed right adnexal neoplasm, pt. Aware. Weight loss- 8 lb., no appetite. No fever or chills. No bloating or belching. No pain in back. Tired. Lost sense of taste the last 5 years, smell is disappearing. 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 Dupree-every 6 months Gout, unspecified late great toe, several episodes Hypothyroidism, unspecified Multinodular goiter Dr Boateng Osteoarthritis of both knees Other and unspecified hyperlipidemia diet therapy as of 03/08 Paroxysmal supraventricular tachycardia (HCC) ablation 01/2002 ( in [place], [facility]), follows with Dr. Moreno (prn only) RLS (restless legs syndrome) Tinnitus, unspecified ear Unspecified constipation PAST SURGICAL HISTORY Procedure Laterality Date APPENDECTOMY ARTHRP KNE CONDYLEANDPLATU MEDIALANDLAT COMPARTMENTS 2012 Knee replacement, total bilateral CARPAL TUNNEL 2005 bilateral COLONOSCOPY FLX DX W/COLLJ SPEC WHEN PFRMD 12/14/2002 Colonoscopy COLONOSCOPY FLX DX W/COLLJ SPEC WHEN PFRMD 06/10/2007 COLONOSCOPY FLX DX W/COLLJ SPEC WHEN PFRMD 08/04/2013 Colonoscopy COLONOSCOPY FLX DX W/COLLJ SPEC WHEN PFRMD 10/14/2018 [facility]. [place]-Repeat 5 years COLONOSCOPY SCREENING 11/15/2023 R Cebul no repeat due to age CORRECT BUNION,SIMPLE left ECHOCARDIOGRAM 10/18/2017 EGD 1985 bleeding ulcer EPS: SVT/VT ABLATION 2001 [facility] ESOPHAGOGASTRODUODENOSCOPY TRANSORAL DIAGNOSTIC 03/24/2018 EGD HERNIA REPAIR HX 09/2020 ventral hernia repair HOLTER 24 HR 10/2017 LOOP RECORDER IMPLANT 01/23/2018 NASAL/SINUS ENDOSCOPY WITH SPHENOIDOTOMY Bilateral 05/15/2019 Dr. Ruffin NASAL/SINUS ENDOSCPY W/MAXILL ANTROSTOMY Bilateral 05/15/2019 Dr. Ruffin NASAL/SINUS ENDOSCPY W/TOTAL ETHMOIDECTOMY Bilateral 05/15/2019 Dr. Ruffin OPEN REPAIR OF ROTATOR CUFF ACUTE 04/2005 Dr. Mejias PAST SURGICAL HISTORY OF 10/1997 partial colectomy ([place], [facility]) PAST SURGICAL HISTORY OF 2011 nerves cut in my back STEREO LOC FOR CORE BRST BX LT 04/24/2010 left STRESS TEST 12/17/2017 TONSILLECTOMY PRIMARY/SECONDARY ALLERGIES Vicodin [Hydrocodone-Acetaminophen], Buspirone, Cocamidopropyl Betaine, Codeine, Percocet [Oxycodone-Acetaminophen], Sulfa (Sulfonamide Antibiotics), and Tetracycline MEDICATIONS Current Outpatient Medications Medication Sig rOPINIRole (REQUIP) 0.5 mg tablet Take 1.5 tablets by mouth daily at bedtime. melatonin 10 mg cap Take by mouth. MEDICATION, NON-DATABASE CBD oil fluticasone propionate (ARMONAIR DIGIHALER) 232 mcg/actuation inhaler Inhale 1 Puff as instructed two times a day. levalbuterol tartrate HFA 45 mcg/actuation inhaler Inhale 1-2 Puffs as instructed every 4 hours as needed for wheezing/shortness of breath. nortriptyline (PAMELOR) 10 mg capsule Take 1 capsule by mouth every 12 hours. Cholecalciferol, Vitamin D3, (VITAMIN D) 25 mcg (1,000 unit) cap Take 1,000 Units by mouth once daily. levothyroxine (SYNTHROID) 75 mcg tablet Take 75 mcg on empty stomach Thurs AND Sun; 50 mcg on an empty stomach all other days clonazePAM (KLONOPIN) 0.5 mg tablet Take 0.5 mg by mouth at bedtime as needed. Dr Joon Avery,Ann,K-Xfre-Lguiqa (PRESERVISION AREDS) 7,160-113-100 lqon-en-ijyv tab Take by mouth. ACETAMINOPHEN 500 MG TAB Take one(1) tablet every four(4) to six(6) hours as needed for pain. tenapanor (IBSRELA) 50 mg tablet Take 1 tablet (50 mg) by mouth two times a day. With food. No current facility-administered medications for this visit. FAMILY HISTORY Problem Relation Age of Onset Heart Mother rheumatic; 73 Colon Cancer Father dx'd age 50's Coronary Artery Disease Father age 40s, CABG (among the first done at in [place]) Stroke Sister at 58 of ruptured aneurysm Cancer Brother at 55 (tobacco, agent orange) DVT Sister Social History Tobacco Use Smoking status: Never Smokeless tobacco: Nev (more content not included)... Normal [facility] CNPNon 06-16-2024 CNPN Telephone (FAMPWS) VERNON GRACEETTA ([id number]) 1935 F NFR Date Time Provider Department 06/16/24 ANITRA MANCERA During your visit today, we recorded the following information about you: Zulma Benites MA 06/16/2024 2:45 PM Signed ----- Message from Anitra Mancera APRN.AUTOMOBILE RENTAL AGENT sent at 06/16/2024 2:35 PM EDT ----- Please let patient know that right ovary is enlarged but no mass noted. I see that she has an appointment with gynecology on the . Please keep that and have them weigh in on it. Zulma Benites MA 06/16/2024 4:12 PM Signed Patient was made aware of the results. Patient verbalizes understanding. Zulma Benites Ma Allergies As of Date: 06/16/2024 Noted Allergy Reaction VICODIN (HYDROCODONE-ACETAMINOPHE*01/2013 8 - GI Upset BUSPIRONE 04/21/2024 5 - Intolerance Comments: Anxious, jittery, felt worse, RLS worse. COCAMIDOPROPYL BETAINE 07/27/2020 2 - Rash Comments: itching, rash CODEINE 03/19/2007 8 - GI Upset PERCOCET (OXYCODONE-ACETAMINOPHEN)04/02 8 - GI Upset SULFA (SULFONAMIDE ANTIBIOTICS) 03/19/2007 4 - Hives 7 - Swelling Comments: lips swelled up TETRACYCLINE 04/29/2019 8 - GI Upset Date Reviewed: 06/16/2024 Reviewed by: Anitra Mancera APRN.AUTOMOBILE RENTAL AGENT - Fully Assessed Reason for Visit: Results [95] Prescriptions as of 06/16/2024 - rOPINIRole (REQUIP) 0.5 mg tablet Take 1.5 tablets by mouth daily at bedtime. - melatonin 10 mg cap Take by mouth. - MEDICATION, NON-DATABASE CBD oil - fluticasone propionate (ARMONAIR DIGIHALER) 232 mcg/actuation inhaler Inhale 1 Puff as instructed two times a day. - levalbuterol tartrate HFA 45 mcg/actuation inhaler Inhale 1-2 Puffs as instructed every 4 hours as needed for wheezing/shortness of breath. - nortriptyline (PAMELOR) 10 mg capsule Take 1 capsule by mouth every 12 hours. - Cholecalciferol, Vitamin D3, (VITAMIN D) 25 mcg (1,000 unit) cap Take 1,000 Units by mouth once daily. - levothyroxine (SYNTHROID) 75 mcg tablet Take 75 mcg on empty stomach Th AND Sat; 50 mcg on an empty stomach all other days - clonazePAM (KLONOPIN) 0.5 mg tablet Take 0.5 mg by mouth at bedtime as needed. Dr Dupree - vit A,C,M-Fflj-Ebopvw (PRESERVISION AREDS) 7,160-113-100 onox-uw-kipl tab Take by mouth. - ACETAMINOPHEN 500 MG TAB Take one(1) tablet every four(4) to six(6) hours as needed for pain. Problem List As Of Date 06/16/2024 Noted Resolved Unspecified constipation [K59.00] 04/30/2006 03/16/2016 PEPTIC ULCER NOS [K27.9] 03/19/2007 GENERALIZED ANXIETY DIS [F41.1] Generalized osteoarthrosis, unspecified site [M* 12/23/2015 Myalgia and myositis [AVO2793] 05/22/2017 Diverticulosis of large intestine [K57.30] Disorder of bone and cartilage [M89.9, M94.9] Hypothyroidism [E03.9] Hyperlipidemia LDL goal <130 [E78.5] Gout, unspecified [M10.9] 12/23/2015 PEPTIC ULCER NOS [K27.9] 03/19/2007 PAROX ATRIAL TACHYCARDIA [I47.10] 03/19/2007 Disturbances of sensation of smell and taste [R*02/13/2008 05/22/2017 Chronic maxillary sinusitis [J32.0] 02/13/2008 05/22/2017 Meniere's disease, unspecified [H81.09] 05/20/2008 03/16/2016 Dizziness and giddiness [R42] 05/13/2009 12/23/2015 Cervicalgia [M54.2] 05/13/2009 12/23/2015 Osteoarthritis of both knees [M17.0] Multinodular goiter [E04.2] Syncope and collapse [R55] 04/30/2014 12/23/2015 History of knee replacement, total [Z96.659] 12/23/2015 Ageusia [R43.2] 02/23/2016 05/22/2017 Glossitis [K14.0] 02/23/2016 05/22/2017 Mild intermittent asthma without complication [*03/16/2016 Paroxysmal supraventricular tachycardia (HCC) [* Nausea [R11.0] 03/20/2018 04/29/2019 Hernia of anterior abdominal wall [K43.9] 04/18/2020 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] 04/18/2020 BPPV (benign paroxysmal positional vertigo), un*04/22/2020 Itching [L29.9] 07/27/2020 Orthostatic syncope [I95.1] 07/27/2020 RLS (restless legs syndrome) [G25.81] Asthma [J45.909] Benzodiazepine dependence (HCC) [F13.20] 05/29/2023 Anxiety [F41.9] 01/01/2024 Chronic ethmoidal sinusitis [J32.2] 01/01/2024 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*05/27/2012 Disorder of bursae of shoulder region [M71.9] 01/24/2012 Encounter for pre-operative examination [Z01.81*01/01/2024 Family history of malignant neoplasm of colon [*10/08/2023 History of appendectomy [Z90.49] 01/01/2024 Hernia [K46.9] 01/01/2024 History of partial surgical removal of colon [Z*10/08/2023 Low back pain [M54.50] 09/18/2011 Lumbosacral spondylosis without myelopathy [M47*11/01/2011 Neurological deficit present [R29.818] 01/01/2024 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] 07/20/2014 Palpitations [R00.2] 01/01/2024 Sprain of lateral collateral ligament of knee [*05/27/2012 Thoracic and lumbosacral neuritis [M54.14, M54.*09/18/2011 Encounter Status:Closed by ZULMA BENITES on 06/16/24 Normal [facility] TSH SerPl-aCncon 06-16-2024 TSH Qn 4.830 m[IU]/L High 0.270-4.200 [facility] Comment on above: Order Comment: Speci men Type: BLOOD SPECIMEN Ordering Facility: [facility] Address: [address] [place] [address] Performed By: #### 2 [id number], [id number] #### [facility] CLIA [id number] [address] [place] [address] [place] [address] [place] US FEM PEL NON-OB NON-TORS N O TVon 06-16-2024 FEM PEL NON-OB NON-TORS NO TV * * *Final Report* * * DATE OF EXAM: Jun 16 2024 2:02PM WRU 1243 - US FEM PEL NON-OB NON-TORS NO TV / 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 Details of the uterus are obscured by overlying bowel gas and small size. The endometrium measures 0.4 cm in thickness, also suboptimally seen detailed. The right ovary measures 3.4 x 2.7 x 2.6 cm and the left ovary was not visible as it was obscured by overlying bowel gas. The bladder is distended without focal abnormality. IMPRESSION: Limited examination due to small uterine size and overlying bowel gas shadowing. No mass lesion is identified. The right ovary may be prominent in size without focal lesion. The left ovary is not visualized. Horse Racer: [facility] Transcribe Date/Time: Jun 16 2024 2:10P Dictated by : GIRISH RANGEL MD This examination was interpreted and the report reviewed and electronically signed by: GIRISH RANGEL MD on Jun 16 2024 2:13PM EST [id number] Normal [facility] US Pelvison 06-16-2024 Radiology Study observation (narrative) [facility] IMPRESSION: Limited examination due to small uterine size and overlying bowel gas shadowing. No mass lesion is identified. The right ovary may be prominent in size without focal lesion. The left ovary is not visualized. 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 Details of the uterus are obscured by overlying bowel gas and small size. The endometrium measures 0.4 cm in thickness, also suboptimally seen detailed. The right ovary measures 3.4 x 2.7 x 2.6 cm and the left ovary was not visible as it was obscured by overlying bowel gas. The bladder is distended without focal abnormality. 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 Details of the uterus are obscured by overlying bowel gas and small size. The endometrium measures 0.4 cm in thickness, also suboptimally seen detailed. The right ovary measures 3.4 x 2.7 x 2.6 cm and the left ovary was not visible as it was obscured by overlying bowel gas. The bladder is distended without focal abnormality. IMPRESSION IMPRESSION: Limited examination due to small uterine size and overlying bowel gas shadowing. No mass lesion is identified. The right ovary may be prominent in size without focal lesion. The left ovary is not visualized. Horse Racer: [facility] Transcribe Date/Time: Jun 16 2024 2:10P Dictated by : GIRISH RANGEL MD This examination was interpreted and the report reviewed and electronically signed by: GIRISH RANGEL MD on Jun 16 2024 2:13PM [facility] US PelvisOrdered By: Ant Pro vider on 06-16-2024 [facility] CNPLydia 06-05-2024 CNPN Telephone (GSTNOR) SACHI GRACE ([id number]) 1935 F NFR Date Time Provider Department 06/05/24 LINDSEY STAPLETON GSTNOR During your visit today, we recorded the following information about you: Javid Mcghee MA 06/05/2024 11:42 AM Signed Spoke with patient about CT results. She will contact the Farm Technician prior to having MRI done. She also states that she usually has 2 0.5 tabs of Xanax prior to MRI's. This can be srnt to the [facility] in [place]. Thank you Lindsey Stapleton PA-C 06/05/2024 11:50 AM Signed Script sent to pharmacy TABITHA Freire Kristen, PA-C 06/05/2024 11:50 AM Signed Addended by: LINDSEY STAPLETON on: 06/05/2024 11:50 AM Modules accepted: Orders Allergies As of Date: 06/05/2024 Noted Allergy Reaction VICODIN (HYDROCODONE-ACETAMINOPHE*01/2013 8 - GI Upset BUSPIRONE 04/21/2024 5 - Intolerance Comments: Anxious, jittery, felt worse, RLS worse. COCAMIDOPROPYL BETAINE 07/27/2020 2 - Rash Comments: itching, rash CODEINE 03/19/2007 8 - GI Upset PERCOCET (OXYCODONE-ACETAMINOPHEN)04/02 8 - GI Upset SULFA (SULFONAMIDE ANTIBIOTICS) 03/19/2007 4 - Hives 7 - Swelling Comments: lips swelled up TETRACYCLINE 04/29/2019 8 - GI Upset Date Reviewed: 04/22/2024 Reviewed by: Mandy Caba, RT(R) - Fully Assessed Reason for Visit: Results [95] Primary Visit Diagnosis:Anxiety [F41.9] Order(s):ALPRAZolam (XANAX) 0.5 mg tabletTake 2 tablets by mouth one time only for 1 dose. Take 30 minutes prior to MRI.Disp: 2 tabletRfl: 0 Prescriptions as of 06/05/2024 - ALPRAZolam (XANAX) 0.5 mg tablet Take 2 tablets by mouth one time only for 1 dose. Take 30 minutes prior to MRI. - rOPINIRole (REQUIP) 0.5 mg tablet Take 1.5 tablets by mouth daily at bedtime. - tenapanor (IBSRELA) 50 mg tablet Take 1 tablet (50 mg) by mouth two times a day. With food. - melatonin 10 mg cap Take by mouth. - MEDICATION, NON-DATABASE CBD oil - fluticasone propionate (ARMONAIR DIGIHALER) 232 mcg/actuation inhaler Inhale 1 Puff as instructed two times a day. - levalbuterol tartrate HFA 45 mcg/actuation inhaler Inhale 1-2 Puffs as instructed every 4 hours as needed for wheezing/shortness of breath. - nortriptyline (PAMELOR) 10 mg capsule Take 1 capsule by mouth every 12 hours. - Cholecalciferol, Vitamin D3, (VITAMIN D) 25 mcg (1,000 unit) cap Take 1,000 Units by mouth once daily. - levothyroxine (SYNTHROID) 75 mcg tablet Take 75 mcg on empty stomach Th AND Sat; 50 mcg on an empty stomach all other days - clonazePAM (KLONOPIN) 0.5 mg tablet Take 0.5 mg by mouth at bedtime as needed. Dr Dupree - vit A,C,E-Kyqc-Pcnuhn (PRESERVISION AREDS) 7,160-113-100 xeds-yt-srzt tab Take by mouth. - ACETAMINOPHEN 500 MG TAB Take one(1) tablet every four(4) to six(6) hours as needed for pain. Problem List As Of Date 06/05/2024 Noted Resolved Unspecified constipation [K59.00] 04/30/2006 03/16/2016 PEPTIC ULCER NOS [K27.9] 03/19/2007 GENERALIZED ANXIETY DIS [F41.1] Generalized osteoarthrosis, unspecified site [M* 12/23/2015 Myalgia and myositis [HLG7042] 05/22/2017 Diverticulosis of large intestine [K57.30] Disorder of bone and cartilage [M89.9, M94.9] Hypothyroidism [E03.9] Hyperlipidemia LDL goal <130 [E78.5] Gout, unspecified [M10.9] 12/23/2015 PEPTIC ULCER NOS [K27.9] 03/19/2007 PAROX ATRIAL TACHYCARDIA [I47.10] 03/19/2007 Disturbances of sensation of smell and taste [R*02/13/2008 05/22/2017 Chronic maxillary sinusitis [J32.0] 02/13/2008 05/22/2017 Meniere's disease, unspecified [H81.09] 05/20/2008 03/16/2016 Dizziness and giddiness [R42] 05/13/2009 12/23/2015 Cervicalgia [M54.2] 05/13/2009 12/23/2015 Osteoarthritis of both knees [M17.0] Multinodular goiter [E04.2] Syncope and collapse [R55] 04/30/2014 12/23/2015 History of knee replacement, total [Z96.659] 12/23/2015 Ageusia [R43.2] 02/23/2016 05/22/2017 Glossitis [K14.0] 02/23/2016 05/22/2017 Mild intermittent asthma without complication [*03/16/2016 Paroxysmal supraventricular tachycardia (HCC) [* Nausea [R11.0] 03/20/2018 04/29/2019 Hernia of anterior abdominal wall [K43.9] 04/18/2020 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] 04/18/2020 BPPV (benign paroxysmal positional vertigo), un*04/22/2020 Itching [L29.9] 07/27/2020 Orthostatic syncope [I95.1] 07/27/2020 RLS (restless legs syndrome) [G25.81] Asthma [J45.909] Benzodiazepine dependence (HCC) [F13.20] 05/29/2023 Anxiety [F41.9] 01/01/2024 Chronic ethmoidal sinusitis [J32.2] 01/01/2024 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*05/27/2012 Disorder of bursae of shoulder region [M71.9] 01/24/2012 Encounter for pre-operative examination [Z01.81*01/01/2024 Family history of malignant neoplasm of colon [*10/08/2023 History of appendectomy [Z90.49] 01/01/2024 Hernia [K46.9] 01/01/2024 History of partial surgical removal of colon [Z*10/08/2023 Low back pain [M54 (more content not included)... [facility]ine [facility] Uprigh ton 03-27-2024 IMPRESSION: NO ACUTE ABDOMINAL PATHOLOGY VISUALIZED Horse Racer: [facility] Transcribe Date/Time: Mar 27 2024 4:22P Dictated by : ARCELIA DENISE MD This examination was interpreted and the report reviewed and electronically signed by: ARCELIA DENISE MD on Mar 27 2024 4:23PM EST DIVISION OF RADIOLOGY * * *Final Report* * * DATE OF EXAM: Mar 24 2024 12:22PM WOX [id number] - XR ABDOMEN 1V SUPINE / PROCEDURE REASON: Acute constipation * * * * Physician Interpretation * * * * Indication: Constipation Comparison: X-ray abdomen 05/26/2023 2 x-rays of the abdomen are obtained. There is a non-obstructed bowel gas pattern. Moderate fecal material in the colon. There is no hepatomegaly or splenomegaly. No abnormal calcifications are visualized. There are no acute osseous abnormalities. DIVISION OF RADIOLOGY Provider, [facility] - 03/27/2024 * * *Final Report* * * DATE OF EXAM: Mar 24 2024 12:22PM WOX [id number] - XR ABDOMEN 1V SUPINE / PROCEDURE REASON: Acute constipation * * * * Physician Interpretation * * * * Indication: Constipation Comparison: X-ray abdomen 05/26/2023 2 x-rays of the abdomen are obtained. There is a non-obstructed bowel gas pattern. Moderate fecal material in the colon. There is no hepatomegaly or splenomegaly. No abnormal calcifications are visualized. There are no acute osseous abnormalities. IMPRESSION IMPRESSION: NO ACUTE ABDOMINAL PATHOLOGY VISUALIZED [facility] Transcribe Date/Time: Mar 27 2024 4:22P Dictated by : ARCELIA DENISE MD This examination was interpreted and the report reviewed and electronically signed by: ARCELIA DENISE MD on Mar 27 2024 4:23PM EST [facility] XR Abdomen Supine and Uprigh tOrdered By: [facility]cf Provider on 03-27-2024 [facility] XR Abdomen Supine and Uprigh ton 03-24-2024 Radiology Study observation (narrative) [facility] EMG(NEURO/NI)on 09-23-2023 [facility] CBC W Auto Differential pane l (Bld)on 07-02-2023 Basophils (Bld) [#/Vol] 0.08 10*3/uL <0.11 k/uL [facility] Basophils/100 WBC (Bld) 1.2 % [facility] Differential cell count method Nom (Bld) Auto [facility] Eosinophils (Bld) [#/Vol] 0.34 10*3/uL <0.46 k/uL [facility] Eosinophils/100 WBC (Bld) 5.3 % [facility] Erythrocyte distribution width (RBC) [Ratio] 14.8 % 11.5 - 15.0 % [facility] Hematocrit (Bld) [Volume fraction] 39.9 % 36.0 - 46.0 % [facility] Hemoglobin (Bld) [Mass/Vol] 12.6 g/dL 11.5 - 15.5 g/dL [facility] Immature granulocytes (Bld) [#/Vol] 0.03 10*3/uL <0.10 k/uL [facility] Immature granulocytes/100 WBC (Bld) 0.5 % [facility] Lymphocytes (Bld) [#/Vol] 0.80 10*3/uL Low 1.00 - 4.00 k/uL [facility] Lymphocytes/100 WBC (Bld) 12.4 % [facility] MCH (RBC) [Entitic mass] 27.9 pg 26.0 - 34.0 pg [facility] MCHC (RBC) [Mass/Vol] 31.6 g/dL 30.5 - 36.0 g/dL [facility] MCV (RBC) [Entitic vol] 88.5 fL 80.0 - 100.0 fL [facility] Monocytes (Bld) [#/Vol] 0.72 10*3/uL <0.87 k/uL [facility] Monocytes/100 WBC (Bld) 11.2 % [facility] Neutrophils (Bld) [#/Vol] 4.48 10*3/uL 1.45 - 7.50 k/uL [facility] Neutrophils/100 WBC (Bld) 69.4 % [facility] Nucleated RBC (Bld) [#/Vol] <0.01 k/uL [facility] Nucleated RBC/100 WBC (Bld) [Ratio] 0.0 /100 WBC [facility] Platelet mean volume (Bld) [Entitic vol] 9.0 fL 9.0 - 12.7 fL [facility] Platelets (Bld) [#/Vol] 431 10*3/uL High 150 - 400 k/uL [facility] RBC (Bld) [#/Vol] 4.51 10*6/uL 3.90 - 5.2 0 m/uL [facility] WBC (Bld) [#/Vol] 6.45 10*3/uL 3.70 - 11.00 k/uL [facility] Comprehensive metabolic 2000 panelon 07-02-2023 Albumin [Mass/Vol] 3.8 g/dL Low 3.9 - 4.9 g/dL [facility] ALP [Catalytic activity/Vol] 109 U/L 34 - 123 U/L [facility] ALT [Catalytic activity/Vol] 7 U/L 7 - 38 U/L [facility] Anion gap [Moles/Vol] 12 mmol/L 9 - 18 mmol/L [facility] AST [Catalytic activity/Vol] 16 U/L 13 - 35 U/L [facility] Bilirubin [Mass/Vol] 0.5 mg/dL 0.2 - 1.3 mg/dL [facility] Calcium [Mass/Vol] 9.7 mg/dL 8.5 - 10. 2 mg/dL [facility] Chloride [Moles/Vol] 101 mmol/L 97 - 105 mmol/L [facility] CO2 [Moles/Vol] 26 mmol/L 22 - 30 mmol/L [facility] Creatinine [Mass/Vol] 0.58 mg/dL 0.58 - 0.96 mg/dL [facility] Estimated Glomerular Filtration Rate 88 mL/min/1.73m >=60 mL/min/1.73 m [facility] Glucose [Mass/Vol] 107 mg/dL High 74 - 99 mg/dL [facility] Potassium [Moles/Vol] 4.1 mmol/L 3.7 - 5.1 mmol/L [facility] Protein [Mass/Vol] 7.1 g/dL 6.3 - 8.0 g/dL [facility] Sodium [Moles/Vol] 139 mmol/L 136 - 144 mmol/L [facility] Urea nitrogen [Mass/Vol] 14 mg/dL 7 - 21 mg/dL [facility] ESR Westergren method (Bld) [Velocity]on 07-02-2023 ESR (Bld) [Velocity] 57 mm/h High 0 - 20 mm/hr [facility] URIC ACID BLOODon 07-02-2023 Urate [Mass/Vol] 3.8 mg/dL 2.5 - 6.6 mg/dL [facility] XR Abdomen Supine and Uprigh ton 05-31-2023 IMPRESSION: Nonspecific nonobstructive bowel gas pattern. Horse Racer: [facility] Transcribe Date/Time: May 31 2023 8:58P Dictated by : DEMETRIS CARR MD This examination was interpreted and the report reviewed and electronically signed by: DEMETRIS CARR MD on May 31 2023 9:08PM [facility] DIVISION OF RADIOLOGY * * *Final Report* * * DATE OF EXAM: May 28 2023 12:39PM WOX [id number] - XR ABDOMEN 1V SUPINE / PROCEDURE REASON: Pencilling of stools * * * * Physician Interpretation * * * * CLINICAL: TECHNIQUE: Single KUB of the abdomen. FINDINGS: A nonspecific nonobstructive bowel gas pattern is present. No pathologic calcifications are seen. The osseous structures are grossly normal. DIVISION OF RADIOLOGY Provider, [facility] - 05/31/2023 * * *Final Report* * * DATE OF EXAM: May 28 2023 12:39PM WOX [id number] - XR ABDOMEN 1V SUPINE / PROCEDURE REASON: Pencilling of stools * * * * Physician Interpretation * * * * CLINICAL: TECHNIQUE: Single KUB of the abdomen. FINDINGS: A nonspecific nonobstructive bowel gas pattern is present. No pathologic calcifications are seen. The osseous structures are grossly normal. IMPRESSION IMPRESSION: Nonspecific nonobstructive bowel gas pattern. Horse Racer: [facility] Transcribe Date/Time: May 31 2023 8:58P Dictated by : DEMETRIS CARR MD This examination was interpreted and the report reviewed and electronically signed by: DEMETRIS CARR MD on May 31 2023 9:08PM EST [facility] XR Abdomen Supine and Uprigh tOrdered By: [facility] Provider on 05-31-2023 [facility] XR Abdomen Supine and Uprigh ton 05-28-2023 Radiology Study observation (narrative) [facility] XR Lumbar spine 3 Viewson IMPRESSION: Lumbar s pine degenerative changes as described above. Horse Racer: [facility] Transcribe Date/Time: Nov 14 2022 4:39P Dictated by : SONALI GARCIA MD This examination was interpreted and the report reviewed and electronically signed by: SONALI GARCIA MD on Nov 14 2022 4:42PM [facility] [facility] DIV[facility] * * *Final Report* * * DATE OF EXAM: Nov 13 2022 4:35PM WOX 5228 - XR LUMBAR 3V AP/LAT/L5-S1 / PROCEDURE REASON: Acute midline low back pain without sciatica * * * * Physician Interpretation * * * * EXAM TITLE: XR LUMBAR 3V AP/LAT/L5-S1 EXAM DATE/TIME: 11/13/2022 4:35 PM COMPARISON: None. CLINICAL INDICATION/HISTORY: Low back pain. TECHNIQUE: AP, lateral and cone down lateral views of the lumbar spine are presented. FINDINGS: There are five ori-isf-hylrqrp lumbar vertebrae. No acute fracture seen. There is mild S shaped deformity. There is grade 1 L3 on L4 anterolisthesis. There appears be L1-2, L2-3, L3-4 and L5-S1 disc space narrowing. Questionable coarse trabeculations in L1 and L3 vertebral bodies, not fully characterized. There is mild osteophyte formation, with facet arthrosis. Kissing spine seen on lateral view. The bones are osteopenic. DIVISION OF RADIOLOGY Provider, [facility] - 11/14/2022 * * *Final Report* * * DATE OF EXAM: Nov 13 2022 4:35PM WOX 5228 - XR LUMBAR 3V AP/LAT/L5-S1 / PROCEDURE REASON: Acute midline low back pain without sciatica * * * * Physician Interpretation * * * * EXAM TITLE: XR LUMBAR 3V AP/LAT/L5-S1 EXAM DATE/TIME: 11/13/2022 4:35 PM COMPARISON: None. CLINICAL INDICATION/HISTORY: Low back pain. TECHNIQUE: AP, lateral and cone down lateral views of the lumbar spine are presented. FINDINGS: There are five zla-vep-mzehlvk lumbar vertebrae. No acute fracture seen. There is mild S shaped deformity. There is grade 1 L3 on L4 anterolisthesis. There appears be L1-2, L2-3, L3-4 and L5-S1 disc space narrowing. Questionable coarse trabeculations in L1 and L3 vertebral bodies, not fully characterized. There is mild osteophyte formation, with facet arthrosis. Kissing spine seen on lateral view. The bones are osteopenic. IMPRESSION IMPRESSION: Lumbar spine degenerative changes as described above. Horse Racer: BINTA Transcribe Date/Time: Nov 14 2022 4:39P Dictated by : SONALI GARCIA MD This examination was interpreted and the report reviewed and electronically signed by: SONALI GARCIA MD on Nov 14 2022 4:42PM EST [facility] XR Lumbar spine 3 ViewsOrder ed By: [facility]cf Provider on 11-14-2022 [facility] XR Lumbar spine 3 Viewson Radiology Study observation (narrative) [facility] FECAL OCCULT BLOOD TESTon Lower GI hemoglobin IA Ql (Stl) Negative Negative [facility] XR CHEST 2V FRONTAL/LATon [facility] XR Chest PA and Lateralon IMPRESSION: No acute radiographic abnormality. Horse Racer: PSCB Transcribe Date/Time: Oct 01 2022 4:51P Dictated by : MARIA ELENA DRAPER MD This examination was interpreted and the report reviewed and electronically signed by: MARIA ELENA DRAPER MD on Oct 01 2022 4:51PM EST DIVISION OF RADIOLOGY * * *Final Report* * * DATE OF EXAM: Oct 01 2022 4:37PM WOX 5291 - XR CHEST 2V FRONTAL/LAT / PROCEDURE REASON: Lower respiratory infection * * * * Physician Interpretation * * * * EXAMINATION: CHEST RADIOGRAPH (2 VIEW FRONTAL & LATERAL) CLINICAL HISTORY: Lower respiratory infection MQ: XC2_6 EXAM DATE/TIME: 10/01/2022 4:37 PM COMPARISON: 04/21/2014 RESULT: Lines, tubes, and devices: None. Lungs and pleura: No consolidation. No lung mass. No pleural effusion. No pneumothorax. Cardiomediastinal silhouette: Normal cardiomediastinal silhouette. Bones and soft tissues: Degenerative change and osteophytosis throughout the dorsal spine. Osteopenia. Stable. DIVISION OF RADIOLOGY Provider, [facility] - 10/01/2022 * * *Final Report* * * DATE OF EXAM: Oct 01 2022 4:37PM WOX 5291 - XR CHEST 2V FRONTAL/LAT / PROCEDURE REASON: Lower respiratory infection * * * * Physician Interpretation * * * * EXAMINATION: CHEST RADIOGRAPH (2 VIEW FRONTAL & LATERAL) CLINICAL HISTORY: Lower respiratory infection MQ: XC2_6 EXAM DATE/TIME: 10/01/2022 4:37 PM COMPARISON: 04/21/2014 RESULT: Lines, tubes, and devices: None. Lungs and pleura: No consolidation. No lung mass. No pleural effusion. No pneumothorax. Cardiomediastinal silhouette: Normal cardiomediastinal silhouette. Bones and soft tissues: Degenerative change and osteophytosis throughout the dorsal spine. Osteopenia. Stable. IMPRESSION IMPRESSION: No acute radiographic abnormality. Horse Racer: BINTA Transcribe Date/Time: Oct 01 2022 4:51P Dictated by : MARIA ELENA DRAPER MD This examination was interpreted and the report reviewed and electronically signed by: MARIA ELENA DRAPER MD on Oct 01 2022 4:51PM EST [facility] Radiology Study observation (narrative) [facility] XR Chest PA and LateralOrder ed By: [facility] Provider on 10-01-2022 [facility] CBC W Auto Differential pane l (Bld)on 08-14-2022 Abs Immature Gran <0.10 k/uL [facility] Basophils (Bld) [#/Vol] 0.06 10*3/uL <0.11 k/uL [facility] Basophils/100 WBC (Bld) 1.1 % [facility] Differential cell count method Nom (Bld) Auto [facility] Eosinophils (Bld) [#/Vol] 0.41 10*3/uL <0.46 k/uL [facility] Eosinophils/100 WBC (Bld) 7.2 % [facility] Erythrocyte distribution width (RBC) [Ratio] 15.5 % High 11.5 - 15.0 % [facility] Hematocrit (Bld) [Volume fraction] 37.5 % 36.0 - 46.0 % [facility] Hemoglobin (Bld) [Mass/Vol] 12.3 g/dL 11.5 - 15.5 g/dL [facility] Immature Gran % 0.2 % [facility] Lymphocytes (Bld) [#/Vol] 0.92 10*3/uL Low 1.00 - 4.00 k/uL [facility] Lymphocytes/100 WBC (Bld) 16.2 % [facility] MCH (RBC) [Entitic mass] 28.3 pg 26.0 - 34.0 pg [facility] MCHC (RBC) [Mass/Vol] 32.8 g/dL 30.5 - 36.0 g/dL [facility] MCV (RBC) [Entitic vol] 86.4 fL 80.0 - 100.0 fL [facility] Monocytes (Bld) [#/Vol] 0.77 10*3/uL <0.87 k/uL [facility] Monocytes/100 WBC (Bld) 13.6 % [facility] Neutrophils (Bld) [#/Vol] 3.51 10*3/uL 1.45 - 7.50 k/uL [facility] Neutrophils/100 WBC (Bld) 61.7 % [facility] Nucleated RBC (Bld) [#/Vol] <0.01 k/uL [facility] Nucleated RBC/100 WBC (Bld) [Ratio] 0.0 /100 WBC [facility] Platelet mean volume (Bld) [Entitic vol] 9.2 fL 9.0 - 12.7 fL [facility] Platelets (Bld) [#/Vol] 344 10*3/uL 150 - 400 k/uL [facility] RBC (Bld) [#/Vol] 4.34 10*6/uL 3.90 - 5.2 0 m/uL [facility] WBC (Bld) [#/Vol] 5.68 10*3/uL 3.70 - 11.00 k/uL [facility] CNPNon 04-12-2021 CNPN Telephone (AGCARDPOB ) SACHI GRACE ([id number]) 1935 F NFR Date Time Provider Department 04/12/21 KRYS REEDKSANDROVICHAGCARDPOB During your visit today, we recorded the following information about you: Precious Fuentes RN 04/12/2021 11:11 AM Signed ----- Message from Kevin Goss RN sent at 04/11/2021 1:28 PM EDT ----- Patient called in today stating she has had problems with her monitor in the past. Does not want to have Loop Recorder followed any longer. Dr Reed said this monitor should last 3 years and she has done follow up for 3 years. Does not want to continue. Advised we could still get data from this Loop Recorder ,if needed,because battery status in Jan was OK. Will not make another appt. Tatum PRINGLE Allergies As of Date: 04/12/2021 Noted Allergy Reaction VICODIN (HYDROCODONE-ACETAMINOPHE*01/2013 8 - GI Upset COCAMIDOPROPYL BETAINE 07/27/2020 2 - Rash Comments: itching, rash CODEINE 03/19/2007 8 - GI Upset PERCOCET (OXYCODONE-ACETAMINOPHEN)04/02 8 - GI Upset SULFA (SULFONAMIDE ANTIBIOTICS) 03/19/2007 4 - Hives 7 - Swelling Comments: lips swelled up TETRACYCLINE 04/29/2019 8 - GI Upset Date Reviewed: 04/02/2021 Reviewed by: Sena Mcfarlane APRN.[employer]ENT[employer]ENT - Fully Assessed Reason for Visit: Follow Up [171] Prescriptions as of 04/12/2021 Sig: CLONAZEPAM 0.5 MG TABLET Take 0.5 mg by mouth at bedti* NAPROXEN SODIUM 220 MG TABLET Take 220 mg by mouth once fidel* VITAMIN D3 ORAL Take 2,000 Units by mouth. FLUCONAZOLE 150 MG TABLET Take 1 tablet by mouth once d* PREDNISONE 10 MG TABLET three(3) tablets daily for th* NORTRIPTYLINE 25 MG CAPSULE Take 25 mg by mouth daily at * ALBUTEROL SULFATE HFA 90 MCG/* Inhale 2 Puffs as instructed * LEVOTHYROXINE 75 MCG TABLET Take 1 tablet by mouth once d* Patient taking differently: Take 50 mcg by mouth once fidel* VITAMINS A,C,O-YCDO-QNZIKA 7* Take by mouth. ACETAMINOPHEN 500 MG TABLET Take one(1) tablet every four* Problem List As Of Date 04/12/2021 Noted Resolved Unspecified constipation [K59.00] 04/30/2006 03/16/2016 PEPTIC ULCER NOS [K27.9] 03/19/2007 GENERALIZED ANXIETY DIS [F41.1] Generalized osteoarthrosis, unspecified site [M* 12/23/2015 Myalgia and myositis [[id number]] 05/22/2017 Diverticulosis of large intestine [K57.30] Disorder of bone and cartilage [M89.9, M94.9] Hypothyroidism [E03.9] Hyperlipidemia LDL goal <130 [E78.5] Gout, unspecified [M10.9] 12/23/2015 PEPTIC ULCER NOS [K27.9] 03/19/2007 PAROX ATRIAL TACHYCARDIA [I47.1] 03/19/2007 Disturbances of sensation of smell and taste [R*02/13/2008 05/22/2017 Chronic maxillary sinusitis [J32.0] 02/13/2008 05/22/2017 Meniere's disease, unspecified [H81.09] 05/20/2008 03/16/2016 Dizziness and giddiness [R42] 05/13/2009 12/23/2015 Cervicalgia [M54.2] 05/13/2009 12/23/2015 Osteoarthritis of both knees [M17.0] Multinodular goiter [E04.2] Syncope and collapse [R55] 04/30/2014 12/23/2015 History of knee replacement, total [Z96.659] 12/23/2015 Ageusia [R43.2] 02/23/2016 05/22/2017 Glossitis [K14.0] 02/23/2016 05/22/2017 Mild intermittent asthma without complication [*03/16/2016 Paroxysmal supraventricular tachycardia (HCC) [* Nausea [R11.0] 03/20/2018 04/29/2019 Hernia of anterior abdominal wall [K43.9] 04/18/2020 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] 04/18/2020 BPPV (benign paroxysmal positional vertigo), un*04/22/2020 Itching [L29.9] 07/27/2020 Orthostatic syncope [I95.1] 07/27/2020 Encounter Status:Closed by PRECIOUS FUENTES on 04/12/21 Normal [facility] XR Abdomen Supine and Uprigh ton 04-03-2021 IMPRESSION: Refer to the result. Horse Racer: PSCB Transcribe Date/Time: Apr 03 2021 9:11A Dictated by : JEYSON NATHAN MD This examination was interpreted and the report reviewed and electronically signed by: JEYSON NATHAN MD on Apr 03 2021 9:13AM [facility] DIVISION OF RADIOLOGY * * *Final Report* * * DATE OF EXAM: Apr 03 2021 9:09AM WOX 5289 - XR ABDOMEN 1V SUPINE / PROCEDURE REASON: Change in bowel movement * * * * Physician Interpretation * * * * EXAMINATION: XR ABDOMEN 1V SUPINE CLINICAL HISTORY: pt states for the last couple of weeks is having very small bowel movements no other complaints Change in bowel movement Technique: XR ABDOMEN 1V SUPINE --abdomen with 1 views on 2 images Comparison: Correlation was made with CT abdomen and pelvis 05/04/2020 RESULT: Nonspecific bowel gas pattern. No gaseously dilated loops of bowel are appreciated with gas overlying the level the rectum. The included lung bases are clear. No acute osseous abnormality. DIVISION OF RADIOLOGY Provider, [facility] - 04/03/2021 * * *Final Report* * * DATE OF EXAM: Apr 03 2021 9:09AM WOX 5289 - XR ABDOMEN 1V SUPINE / PROCEDURE REASON: Change in bowel movement * * * * Physician Interpretation * * * * EXAMINATION: XR ABDOMEN 1V SUPINE CLINICAL HISTORY: pt states for the last couple of weeks is having very small bowel movements no other complaints Change in bowel movement Technique: XR ABDOMEN 1V SUPINE --abdomen with 1 views on 2 images Comparison: Correlation was made with CT abdomen and pelvis 05/04/2020 RESULT: Nonspecific bowel gas pattern. No gaseously dilated loops of bowel are appreciated with gas overlying the level the rectum. The included lung bases are clear. No acute osseous abnormality. IMPRESSION IMPRESSION: Refer to the result. Horse Racer: PSCRodrigue Transcribe Date/Time: Apr 03 2021 9:11A Dictated by : JEYSON NATHAN MD This examination was interpreted and the report reviewed and electronically signed by: JEYSON NATHAN MD on Apr 03 2021 9:13AM EST [facility] Radiology Study observation (narrative) [facility] XR Abdomen Supine and Uprigh tOrdered By: Ccf Provider on 04-03-2021 [facility] CNNURSEon 01-19-2021 CNNURSE Nurse Visit (COVAMD) SACHI GRACE ([id number]) 1935 F NFR Date Time Provider Department 01/19/21 SHYANNE CUADRA, SHASHANK DENISE During your visit today, we recorded the following information about you: Allergies As of Date: 01/19/2021 Noted Allergy Reaction VICODIN (HYDROCODONE-ACETAMINOPHE*01/2013 8 - GI Upset COCAMIDOPROPYL BETAINE 07/27/2020 2 - Rash Comments: itching, rash CODEINE 03/19/2007 8 - GI Upset PERCOCET (OXYCODONE-ACETAMINOPHEN)04/02 8 - GI Upset SULFA (SULFONAMIDE ANTIBIOTICS) 03/19/2007 4 - Hives 7 - Swelling Comments: lips swelled up TETRACYCLINE 04/29/2019 8 - GI Upset Date Reviewed: 11/01/2020 Reviewed by: Dolores Brown (Julia) JULIA Gaytan - Fully Assessed Order(s):[employer] SARS-COV-2 VACCINE 2D DOSE APPT [[id number]] Order #: [id number] Prescriptions as of 01/19/2021 Sig: CLONAZEPAM 0.25 MG DISINTEGRA* Take 0.25 mg by mouth twice d* DUPIXENT 300 MG/2 ML SUBCUTAN* Inject 300 mg subcutaneously * FLUOXETINE 10 MG CAPSULE Take 1 capsule by mouth once * Patient not taking: Reported on 11/01/2020 NORTRIPTYLINE 25 MG CAPSULE Take 25 mg by mouth daily at * FLUTICASONE FUROATE 27.5 MCG/* Use 2 Sprays in each nostril * ALBUTEROL SULFATE HFA 90 MCG/* Inhale 2 Puffs as instructed * LEVOTHYROXINE 75 MCG TABLET Take 1 tablet by mouth once d* Patient taking differently: Take 50 mcg by mouth once fidel* VITAMINS A,C,P-EUUJ-YAAYUZ 7* Take by mouth. ACETAMINOPHEN 500 MG TABLET Take one(1) tablet every four* Problem List As Of Date 01/19/2021 Noted Resolved Unspecified constipation [K59.00] 04/30/2006 03/16/2016 PEPTIC ULCER NOS [K27.9] 03/19/2007 GENERALIZED ANXIETY DIS [F41.1] Generalized osteoarthrosis, unspecified site [M* 12/23/2015 Myalgia and myositis [[id number]] 05/22/2017 Diverticulosis of large intestine [K57.30] Disorder of bone and cartilage [M89.9, M94.9] Hypothyroidism [E03.9] Hyperlipidemia LDL goal <130 [E78.5] Gout, unspecified [M10.9] 12/23/2015 PEPTIC ULCER NOS [K27.9] 03/19/2007 PAROX ATRIAL TACHYCARDIA [I47.1] 03/19/2007 Disturbances of sensation of smell and taste [R*02/13/2008 05/22/2017 Chronic maxillary sinusitis [J32.0] 02/13/2008 05/22/2017 Meniere's disease, unspecified [H81.09] 05/20/2008 03/16/2016 Dizziness and giddiness [R42] 05/13/2009 12/23/2015 Cervicalgia [M54.2] 05/13/2009 12/23/2015 Osteoarthritis of both knees [M17.0] Multinodular goiter [E04.2] Syncope and collapse [R55] 04/30/2014 12/23/2015 History of knee replacement, total [Z96.659] 12/23/2015 Ageusia [R43.2] 02/23/2016 05/22/2017 Glossitis [K14.0] 02/23/2016 05/22/2017 Mild intermittent asthma without complication [*03/16/2016 Paroxysmal supraventricular tachycardia (HCC) [* Nausea [R11.0] 03/20/2018 04/29/2019 Hernia of anterior abdominal wall [K43.9] 04/18/2020 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] 04/18/2020 BPPV (benign paroxysmal positional vertigo), un*04/22/2020 Itching [L29.9] 07/27/2020 Orthostatic syncope [I95.1] 07/27/2020 Encounter Status:Open [facility] CR Spine Lumbosacral 2 or 3 Viewson 09-17-2019 CR Spine Lumbosacral 2 or 3 Views Patient Name: SACHI GRACE Diagnostic Radiology Exam Date/Time 09/16/2019 13:58:52 EDT Exam CR Spine Lumbosacral 2 or 3 Views Ordering Physician MD ELDER DONALD L. 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 The bone mineral density is diminished. There are 5 lumbar type vertebrae. The vertebral body heights are within normal limits. There is disc space narrowing at L3-L4 and L5-S1. There is 9 mm of anterolisthesis at L3-L4 and 5 mm of anterolisthesis of L5-S1. IMPRESSION: Arthritic changes. Osseous demineralization. No acute process Report Dictated on Workstation: [id number] Final Dictating Physician: DO ALONSO ALFRED Signed Date and Time: 09/17/2019 10:00 am Signed by: DO ALONSO ALFRED Transcribed Date and Time: 09/17/2019 10:01 [facility] CR Hip w/ Pelvis 1 View Rig ton 09-02-2019 CR Hip w/ Pelvis 1 View Right Patient Name: SACHI GRACE Diagnostic Radiology Exam Date/Time 08/07/2019 09:07:07 EDT Exam CR Hip w/ Pelvis 1 View Right n Ordering Physician MD ELDER DONALD L. Accession Number [id number] CPT4 Codes 84015 () Reason For Exam pain Addendum Pelvis one view and right hip one view Report Dictated on Workstation: [email or web address] Final Addendum Addendum Dictating Physician: MD VELASCO MALAY Signed Date and Time: 09/02/2019 1:45 pm Signed by: MD VELASCO MALAY Transcribed Date and Time: 09/02/2019 1:47 Report Pelvis one view and right hip two views HISTORY: Pain No fracture or dislocation. 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 Report Dictated on Workstation: [email or web address] Final Dictating Physician: MD VELASCO MALAY Signed Date and Time: 08/07/2019 1:41 pm Signed by: MD VELASCO MALAY Transcribed Date and Time: 08/07/2019 1:42 Normal [facility] CR Knee 1 or 2 Views Righton 08-07-2019 CR Knee 1 or 2 Views Right Patient Name: SACHI GRACE Diagnostic Radiology Exam Date/Time 08/07/2019 09:07:07 EDT Exam CR Knee 1 or 2 Views Right Ordering Physician MD ELDER DONALD L. Accession Number [id number] CPT4 Codes 63151 () Reason For Exam pain Report Bilateral knees standing one view and right knee two views HISTORY: Pain Bilateral knee prostheses. No evidence of prosthesis loosening. No fracture or dislocation. No right knee joint effusion. IMPRESSION: No abnormal findings. Report Dictated on Workstation: [email or web address] Final Dictating Physician: MD VELASCO MALAY Signed Date and Time: 08/07/2019 1:42 pm Signed by: MD VELASCO MALAY Transcribed Date and Time: 08/07/2019 1:43 Normal [facility] CR Knee Standing Bilateralon 08-07-2019 CR Knee Standing Bilateral Patient Name: SACHI GRACE Diagnostic Radiology Exam Date/Time 08/07/2019 09:07:07 EDT Exam CR Knee Standing AP Bilateral Ordering Physician MD ELDER DONALD L. Accession Number [id number] CPT4 Codes 91791 () Reason For Exam pain Report Bilateral knees standing one view and right knee two views HISTORY: Pain Bilateral knee prostheses. No evidence of prosthesis loosening. No fracture or dislocation. No right knee joint effusion. IMPRESSION: No abnormal findings. Report Dictated on Workstation: [email or web address] Final Dictating Physician: MD VELASCO MALAY Signed Date and Time: 08/07/2019 1:42 pm Signed by: MD VELASCO MALAY Transcribed Date and Time: 08/07/2019 1:43 Normal [facility] XR HIP 1 VW W PELVIS RIGHTon 08-07-2019 Patient Name: SACHI GRACE ---Diagnostic Radiology--- Exam Date/Time 08/07/2019 09:07:07 EDT Exam CR Hip w/ Pelvis 1 View Right n Ordering Physician MD GUALBERTO, BC Arriaga Accession Number [id number] CPT4 Codes 04182 () Reason For Exam pain Report Pelvis one view and right hip two views HISTORY: Pain No fracture or dislocation. 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 Report Dictated on Workstation: [email or web address] --- Final --- Dictating Physician: MD VELASCO MALAY Signed Date and Time: 08/07/2019 1:41 pm Signed by: MD VELASCO MALAY Transcribed Date and Time: 08/07/2019 1:42 [facility] [place], [facility] Incoming Radiology Results From [facility] - 08/07/2019 1:42 PM EDT Patient Name: SACHI GRACE ---Diagnostic Radiology--- Exam Date/Time 08/07/2019 09:07:07 EDT Exam CR Hip w/ Pelvis 1 View Right n Ordering Physician MD GUALBERTO, BC Parrish. Accession Number [id number] CPT4 Codes 06447 () Reason For Exam pain Report Pelvis one view and right hip two views HISTORY: Pain No fracture or dislocation. 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 Report Dictated on Workstation: [email or web address] --- Final --- Dictating Physician: MD VELASCO MALAY Signed Date and Time: 08/07/2019 1:41 pm Signed by: MD VELASCO MALAY Transcribed Date and Time: 08/07/2019 1:42 [facility], [place] XR KNEE RIGHT (1-2 VIEWS)on 08-07-2019 Patient Name: SACHI GRACE ---Diagnostic Radiology--- Exam Date/Time 08/07/2019 09:07:07 EDT Exam CR Knee 1 or 2 Views Right Ordering Physician MD ELDER DONALD L. Accession Number [id number] CPT4 Codes 15594 () Reason For Exam pain Report Bilateral knees standing one view and right knee two views HISTORY: Pain Bilateral knee prostheses. No evidence of prosthesis loosening. No fracture or dislocation. No right knee joint effusion. IMPRESSION: No abnormal findings. Report Dictated on Workstation: [email or web address] --- Final --- Dictating Physician: MD VELASCO MALAY Signed Date and Time: 08/07/2019 1:42 pm Signed by: MD VELASCO MALAY Transcribed Date and Time: 08/07/2019 1:43 [facility] [place] [facility], [facility] Incoming Radiology Results From [facility] - 08/07/2019 1:43 PM EDT Patient Name: SACHI GRACE ---Diagnostic Radiology--- Exam Date/Time 08/07/2019 09:07:07 EDT Exam CR Knee 1 or 2 Views Right Ordering Physician MD ELDER DONALD L. Accession Number [id number] CPT4 Codes 44007 () Reason For Exam pain Report Bilateral knees standing one view and right knee two views HISTORY: Pain Bilateral knee prostheses. No evidence of prosthesis loosening. No fracture or dislocation. No right knee joint effusion. IMPRESSION: No abnormal findings. Report Dictated on Workstation: [email or web address] --- Final --- Dictating Physician: MD VELASCO MALAY Signed Date and Time: 08/07/2019 1:42 pm Signed by: MD VELASCO MALAY Transcribed Date and Time: 08/07/2019 1:43 [facility], [place] XR Knee Bilateral Standingon 08-07-2019 Patient Name: SACHI GRACE ---Diagnostic Radiology--- Exam Date/Time 08/07/2019 09:07:07 EDT Exam CR Knee Standing AP Bilateral Ordering Physician MD ELDER DONALD L. Accession Number [id number] CPT4 Codes 27568 () Reason For Exam pain Report Bilateral knees standing one view and right knee two views HISTORY: Pain Bilateral knee prostheses. No evidence of prosthesis loosening. No fracture or dislocation. No right knee joint effusion. IMPRESSION: No abnormal findings. Report Dictated on Workstation: [email or web address] --- Final --- Dictating Physician: MD VELASCO MALAY Signed Date and Time: 08/07/2019 1:42 pm Signed by: MD VELASCO MALAY Transcribed Date and Time: 08/07/2019 1:43 [place], [place] [facility] Incoming Radiology Results From [facility] - 08/07/2019 1:43 PM EDT Patient Name: SACHI GRACE ---Diagnostic Radiology--- Exam Date/Time 08/07/2019 09:07:07 EDT Exam CR Knee Standing AP Bilateral Ordering Physician MD GUALBERTO, BC Arriaga Accession Number [id number] CPT4 Codes 36353 () Reason For Exam pain Report Bilateral knees standing one view and right knee two views HISTORY: Pain Bilateral knee prostheses. No evidence of prosthesis loosening. No fracture or dislocation. No right knee joint effusion. IMPRESSION: No abnormal findings. Report Dictated on Workstation: [email or web address] --- Final --- Dictating Physician: MD VELASCO MALAY Signed Date and Time: 08/07/2019 1:42 pm Signed by: MD VELASCO MALAY Transcribed Date and Time: 08/07/2019 1:43 [facility] Vital Signs Date Time Vital Sign Value Performing Clinician Lo negron 03-31-2025 13:27-0400 Body mass index (BMI) [Ratio] 23.71 kg/m2 Shira Podlogar COMPUTER SYSTEM SPECIALIST.RUSTY Work Phone: [facility] 03-31-2025 13:27-0400 Body weight 55.07 kg Shira Podlogar COMPUTER SYSTEM SPECIALIST.RUSTY Work Phone: [facility] 03-31-2025 13:27-0400 Diastolic blood pressure 66 mm[Hg] Shira Podlogar COMPUTER SYSTEM SPECIALIST.RUSTY Work Phone: [facility] 03-31-2025 13:27-0400 Heart rate 77 /min Shira Podlogar COMPUTER SYSTEM SPECIALIST.RSUTY Work Phone: [facility] 03-31-2025 13:27-0400 Respiratory rate 18 /min Shira Ordonez COMPUTER SYSTEM SPECIALIST.AUTOMOBILE RENTAL AGENT Work Phone: [facility] 03-31-2025 13:27-0400 Systolic blood pressure 98 mm[Hg] Shira Ordonez COMPUTER SYSTEM SPECIALIST.AUTOMOBILE RENTAL AGENT Work Phone: [facility] 03-18-2025 14:17-0400 Body mass index (BMI) [Ratio] 23.68 kg/m2 Dawit Phelan COMPUTER SYSTEM SPECIALIST.AUTOMOBILE RENTAL AGENT Work Phone: [facility] 03-18-2025 14:17-0400 Body weight 55 kg Dawit Phelan COMPUTER SYSTEM SPECIALIST.AUTOMOBILE RENTAL AGENT Work Phone: [facility] 03-18-2025 14:17-0400 Diastolic blood pressure 78 mm[Hg] Dawit Phelan COMPUTER SYSTEM SPECIALIST.AUTOMOBILE RENTAL AGENT Work Phone: [facility] 03-18-2025 14:17-0400 Heart rate 88 /min Dawit Phelan COMPUTER SYSTEM SPECIALIST.AUTOMOBILE RENTAL AGENT Work Phone: [facility] 03-18-2025 14:17-0400 Systolic blood pressure 124 mm[Hg] Dawit Phelan COMPUTER SYSTEM SPECIALIST.AUTOMOBILE RENTAL AGENT Work Phone: [facility] 03-16-2025 10:27-0400 Body height 154.9 cm Cilff Troncoso MD Work Phone: [facility] 03-16-2025 10:27-0400 Body mass index (BMI) [Ratio] 22.67 kg/m2 Cliff Troncoso MD Work Phone: [facility] 03-16-2025 10:27-0400 Body temperature 97.9 [degF] Cliff Troncoso MD Work Phone: [facility] [employer] 03-16-2025 10:27-0400 Body weight 54.43 kg Cliff Troncoso MD Work Phone: [facility] 03-16-2025 10:27-0400 Diastolic blood pressure 85 mm[Hg] Cliff Troncoso MD Work Phone: [facility] 03-16-2025 10:27-0400 Heart rate 91 /min Cliff Troncoso MD Work Phone: [facility] 03-16-2025 10:27-0400 Systolic blood pressure 125 mm[Hg] Cliff Troncoso MD Work Phone: [facility] 03-15-2025 10:04-0400 Body mass index (BMI) [Ratio] 23.24 kg/m2 Anitra Suppan COMPUTER SYSTEM SPECIALIST.AUTOMOBILE RENTAL AGENT Work Phone: [facility] 03-15-2025 10:04-0400 Body temperature 98.49 [degF] Anitra Suppan COMPUTER SYSTEM SPECIALIST.AUTOMOBILE RENTAL AGENT Work Phone: [facility] 03-15-2025 10:04-0400 Body weight 53.98 kg Anitra Suppan COMPUTER SYSTEM SPECIALIST.AUTOMOBILE RENTAL AGENT Work Phone: [facility] 03-15-2025 10:04-0400 Diastolic blood pressure 58 mm[Hg] Anitra Suppan COMPUTER SYSTEM SPECIALIST.AUTOMOBILE RENTAL AGENT Work Phone: [facility] 03-15-2025 10:04-0400 Heart rate 94 /min Anitra Suppan COMPUTER SYSTEM SPECIALIST.AUTOMOBILE RENTAL AGENT Work Phone: [facility] 03-15-2025 10:04-0400 SaO2% (BldA) [Mass fraction] 97 % Anitra Suppan COMPUTER SYSTEM SPECIALIST.AUTOMOBILE RENTAL AGENT Work Phone: [facility] 03-15-2025 10:04-0400 Systolic blood pressure 104 mm[Hg] Anitra Suppan COMPUTER SYSTEM SPECIALIST.AUTOMOBILE RENTAL AGENT Work Phone: [facility] 02-10-2025 13:00-0400 Diastolic blood pressure 78 mm[Hg] Quinten Franco MD Work Phone: [facility] 02-10-2025 13:00-0400 Heart rate 80 /min Quinten Franco MD Work Phone: [facility] 02-10-2025 13:00-0400 Respiratory rate 20 /min Quinten Franco MD Work Phone: [facility] 02-10-2025 13:00-0400 SaO2% (BldA) [Mass fraction] 96 % Quinten Franco MD Work Phone: [facility] 02-10-2025 13:00-0400 Systolic blood pressure 135 mm[Hg] Quinten Franco MD Work Phone: [facility] 02-10-2025 12:40-0400 Body temperature 97.59 [degF] Quinten Franco MD Work Phone: [facility] 02-10-2025 10:41-0400 Body height 154.9 cm Quinten Franco MD Work Phone: [facility] 02-10-2025 10:41-0400 Body mass index (BMI) [Ratio] 23.62 kg/m2 Quinten Franco MD Work Phone: [facility] 02-10-2025 10:41-0400 Body weight 56.7 kg Quinten Franco MD Work Phone: [facility] 12-18-2024 09:37-0500 Body mass index (BMI) [Ratio] 25.14 kg/m2 Anitra Suppmariia COMPUTER SYSTEM SPECIALIST.AUTOMOBILE RENTAL AGENT Work Phone: [facility] 12-18-2024 09:37-0500 Body temperature 98.2 [degF] Anitra Suppan COMPUTER SYSTEM SPECIALIST.AUTOMOBILE RENTAL AGENT Work Phone: [facility] 12-18-2024 09:37-0500 Body weight 58.4 kg Anitra Suppmariia COMPUTER SYSTEM SPECIALIST.AUTOMOBILE RENTAL AGENT Work Phone: [facility] 12-18-2024 09:37-0500 Diastolic blood pressure 76 mm[Hg] Anitra Suppan COMPUTER SYSTEM SPECIALIST.AUTOMOBILE RENTAL AGENT Work Phone: [facility] 12-18-2024 09:37-0500 Heart rate 79 /min Anitra Suppmariia COMPUTER SYSTEM SPECIALIST.AUTOMOBILE RENTAL AGENT Work Phone: [facility] 12-18-2024 09:37-0500 SaO2% (BldA) [Mass fraction] 95 % Anitra Suppan COMPUTER SYSTEM SPECIALIST.AUTOMOBILE RENTAL AGENT Work Phone: [facility] 12-18-2024 09:37-0500 Systolic blood pressure 118 mm[Hg] Anitra Suppan COMPUTER SYSTEM SPECIALIST.AUTOMOBILE RENTAL AGENT Work Phone: [facility] 11-27-2024 11:03-0500 Body mass index (BMI) [Ratio] 25.39 kg/m2 Anitra Suppan COMPUTER SYSTEM SPECIALIST.AUTOMOBILE RENTAL AGENT Work Phone: [facility] 11-27-2024 11:03-0500 Body temperature 97.5 [degF] Anitra Suppan COMPUTER SYSTEM SPECIALIST.AUTOMOBILE RENTAL AGENT Work Phone: [facility] 11-27-2024 11:03-0500 Body weight 58.97 kg Anitra Suppan COMPUTER SYSTEM SPECIALIST.AUTOMOBILE RENTAL AGENT Work Phone: [facility] 11-27-2024 11:03-0500 Diastolic blood pressure 58 mm[Hg] Anitra Suppan COMPUTER SYSTEM SPECIALIST.AUTOMOBILE RENTAL AGENT Work Phone: [facility] 11-27-2024 11:03-0500 Heart rate 74 /min Anitra Suppan COMPUTER SYSTEM SPECIALIST.AUTOMOBILE RENTAL AGENT Work Phone: [facility] 11-27-2024 11:03-0500 SaO2% (BldA) [Mass fraction] 93 % Anitra Suppan COMPUTER SYSTEM SPECIALIST.AUTOMOBILE RENTAL AGENT Work Phone: [facility] 11-27-2024 11:03-0500 Systolic blood pressure 102 mm[Hg] Anitra Suppan COMPUTER SYSTEM SPECIALIST.AUTOMOBILE RENTAL AGENT Work Phone: [facility] 11-23-2024 11:26-0500 Body mass index (BMI) [Ratio] 24.8 kg/m2 Anitra Suppan COMPUTER SYSTEM SPECIALIST.AUTOMOBILE RENTAL AGENT Work Phone: [facility] 11-23-2024 11:26-0500 Body temperature 97.9 [degF] Anitra Suppan COMPUTER SYSTEM SPECIALIST.AUTOMOBILE RENTAL AGENT Work Phone: [facility] 11-23-2024 11:26-0500 Body weight 57.61 kg Anitra Suppan COMPUTER SYSTEM SPECIALIST.AUTOMOBILE RENTAL AGENT Work Phone: [facility] 11-23-2024 11:26-0500 Diastolic blood pressure 68 mm[Hg] Anitra Suppan COMPUTER SYSTEM SPECIALIST.AUTOMOBILE RENTAL AGENT Work Phone: [facility] 11-23-2024 11:26-0500 Heart rate 72 /min Anitra Suppan COMPUTER SYSTEM SPECIALIST.AUTOMOBILE RENTAL AGENT Work Phone: [facility] 11-23-2024 11:26-0500 SaO2% (BldA) [Mass fraction] 94 % Anitra Suppan COMPUTER SYSTEM SPECIALIST.AUTOMOBILE RENTAL AGENT Work Phone: [facility] 11-23-2024 11:26-0500 Systolic blood pressure 114 mm[Hg] Anitra Suppan COMPUTER SYSTEM SPECIALIST.AUTOMOBILE RENTAL AGENT Work Phone: [facility] 11-03-2024 14:44-0500 Body mass index (BMI) [Ratio] 24.8 kg/m2 Anitra Suppan COMPUTER SYSTEM SPECIALIST.AUTOMOBILE RENTAL AGENT Work Phone: [facility] 11-03-2024 14:44-0500 Body weight 57.61 kg Anitra Suppan COMPUTER SYSTEM SPECIALIST.AUTOMOBILE RENTAL AGENT Work Phone: [facility] 11-03-2024 14:44-0500 Diastolic blood pressure 68 mm[Hg] Anitra Suppan COMPUTER SYSTEM SPECIALIST.AUTOMOBILE RENTAL AGENT Work Phone: [facility] 11-03-2024 14:44-0500 Heart rate 64 /min Anitra Suppan COMPUTER SYSTEM SPECIALIST.AUTOMOBILE RENTAL AGENT Work Phone: [facility] 11-03-2024 14:44-0500 Respiratory rate 16 /min Anitra Suppan COMPUTER SYSTEM SPECIALIST.AUTOMOBILE RENTAL AGENT Work Phone: [facility] 11-03-2024 14:44-0500 Systolic blood pressure 122 mm[Hg] Anitra Suppan COMPUTER SYSTEM SPECIALIST.AUTOMOBILE RENTAL AGENT Work Phone: [facility] 08-21-2024 09:24-0400 Body mass index (BMI) [Ratio] 25.06 kg/m2 Anitra Suppan COMPUTER SYSTEM SPECIALIST.AUTOMOBILE RENTAL AGENT Work Phone: [facility] 08-21-2024 09:24-0400 Body weight 58.2 kg Anitra Suppan COMPUTER SYSTEM SPECIALIST.AUTOMOBILE RENTAL AGENT Work Phone: [facility] 08-21-2024 09:24-0400 Diastolic blood pressure 68 mm[Hg] Anitra Suppan COMPUTER SYSTEM SPECIALIST.AUTOMOBILE RENTAL AGENT Work Phone: [facility] 08-21-2024 09:24-0400 Heart rate 68 /min Anitra Suppan COMPUTER SYSTEM SPECIALIST.AUTOMOBILE RENTAL AGENT Work Phone: [facility] 08-21-2024 09:24-0400 Respiratory rate 16 /min Anitra Suppan COMPUTER SYSTEM SPECIALIST.AUTOMOBILE RENTAL AGENT Work Phone: [facility] 08-21-2024 09:24-0400 Systolic blood pressure 110 mm[Hg] Anitra Suppan COMPUTER SYSTEM SPECIALIST.AUTOMOBILE RENTAL AGENT Work Phone: [facility] 08-12-2024 13:32-0400 Body height 152.4 cm Lindsey Kalka PA-C Work Phone: [facility] 08-12-2024 13:32-0400 Body mass index (BMI) [Ratio] 24.61 kg/m2 Lindsey Kalka PA-C Work Phone: [facility] 08-12-2024 13:32-0400 Body weight 57.15 kg Lindsey Kalka PA-C Work Phone: [facility] 08-12-2024 13:32-0400 Diastolic blood pressure 62 mm[Hg] Lindsey Kalka PA-C Work Phone: [facility] 08-12-2024 13:32-0400 Heart rate 80 /min Lindsey Kalka PA-C Work Phone: [facility] 08-12-2024 13:32-0400 Systolic blood pressure 108 mm[Hg] Lindsey Kalka PA-C Work Phone: [facility] 07-08-2024 13:58-0400 Body mass index (BMI) [Ratio] 25.19 kg/m2 Shoshana Chambers APRN.CNM Work Phone: [facility] 07-08-2024 13:58-0400 Body weight 58.51 kg Shoshana Chambers COMPUTER SYSTEM SPECIALIST.CNM Work Phone: [facility] 07-08-2024 13:58-0400 Diastolic blood pressure 74 mm[Hg] Shoshana Chambers COMPUTER SYSTEM SPECIALIST.CNM Work Phone: [facility] 07-08-2024 13:58-0400 Systolic blood pressure 112 mm[Hg] Shoshana Chambers COMPUTER SYSTEM SPECIALIST.CNM Work Phone: [facility] 06-16-2024 09:20-0400 Body mass index (BMI) [Ratio] 25 kg/m2 Anitra Suppan COMPUTER SYSTEM SPECIALIST.AUTOMOBILE RENTAL AGENT Work Phone: [facility] 06-16-2024 09:20-0400 Body weight 58.06 kg Anitra Suppan COMPUTER SYSTEM SPECIALIST.AUTOMOBILE RENTAL AGENT Work Phone: [facility] 06-16-2024 09:20-0400 Diastolic blood pressure 72 mm[Hg] Anitra Suppan COMPUTER SYSTEM SPECIALIST.AUTOMOBILE RENTAL AGENT Work Phone: [facility] 06-16-2024 09:20-0400 Heart rate 84 /min Anitra Suppan COMPUTER SYSTEM SPECIALIST.AUTOMOBILE RENTAL AGENT Work Phone: [facility] 06-16-2024 09:20-0400 Respiratory rate 18 /min Anitra Suppan COMPUTER SYSTEM SPECIALIST.AUTOMOBILE RENTAL AGENT Work Phone: [facility] 06-16-2024 09:20-0400 SaO2% (BldA) [Mass fraction] 99 % Anitra Suppan COMPUTER SYSTEM SPECIALIST.AUTOMOBILE RENTAL AGENT Work Phone: [facility] 06-16-2024 09:20-0400 Systolic blood pressure 114 mm[Hg] Anitra Suppan COMPUTER SYSTEM SPECIALIST.AUTOMOBILE RENTAL AGENT Work Phone: [facility] 04-21-2024 14:12-0400 Body mass index (BMI) [Ratio] 25.58 kg/m2 NA Andersen PA-C Work Phone: [facility] 04-21-2024 14:12-0400 Body weight 59.42 kg NA Andersen PA-C Work Phone: [facility] 04-21-2024 14:12-0400 Diastolic blood pressure 65 mm[Hg] NA Andersen PA-C Work Phone: [facility] 04-21-2024 14:12-0400 Heart rate 82 /min NA Andersen PA-C Work Phone: [facility] 04-21-2024 14:12-0400 Respiratory rate 16 /min NA Andersen PA-C Work Phone: [facility] 04-21-2024 14:12-0400 SaO2% (BldA) [Mass fraction] 95 % NA Andersen PA-C Work Phone: [facility] 04-21-2024 14:12-0400 Systolic blood pressure 110 mm[Hg] NA Andersen PA-C Work Phone: [facility] 04-02-2024 09:34-0400 Body height 152.4 cm Lindsey Kalka PA-C Work Phone: [facility] 04-02-2024 09:34-0400 Body mass index (BMI) [Ratio] 25 kg/m2 Lindsey Kalka PA-C Work Phone: [facility] 04-02-2024 09:34-0400 Body weight 58.06 kg Lindsey Kalka PA-C Work Phone: [facility] 04-02-2024 09:34-0400 Diastolic blood pressure 72 mm[Hg] Lindsey Kalka PA-C Work Phone: [facility] 04-02-2024 09:34-0400 Heart rate 82 /min Lindsey Kalka PA-C Work Phone: [facility] 04-02-2024 09:34-0400 Systolic blood pressure 112 mm[Hg] Lindsey Kalka PA-C Work Phone: [facility] 03-24-2024 11:05-0400 Body mass index (BMI) [Ratio] 25.03 kg/m2 NA Andersen PA-C Work Phone: [facility] 03-24-2024 11:05-0400 Body weight 58.97 kg NA Andersen PA-C Work Phone: [facility] 03-24-2024 11:05-0400 Diastolic blood pressure 70 mm[Hg] NA Andersen PA-C Work Phone: [facility] 03-24-2024 11:05-0400 Heart rate 74 /min NA Andersen PA-C Work Phone: [facility] 03-24-2024 11:05-0400 Respiratory rate 18 /min NA Andersen PA-C Work Phone: [facility] 03-24-2024 11:05-0400 SaO2% (BldA) [Mass fraction] 98 % NA Andersen PA-C Work Phone: [facility] 03-24-2024 11:05-0400 Systolic blood pressure 110 mm[Hg] NA Andersen PA-C Work Phone: [facility] 03-17-2024 18:51-0400 Body temperature 97.9 [degF] Shoshana Perry COMPUTER SYSTEM SPECIALIST.AUTOMOBILE RENTAL AGENT Work Phone: [facility] 03-17-2024 18:51-0400 Body weight 60.5 kg Shoshana Perry COMPUTER SYSTEM SPECIALIST.AUTOMOBILE RENTAL AGENT Work Phone: [facility] 03-17-2024 18:51-0400 Diastolic blood pressure 83 mm[Hg] Shoshana Perry COMPUTER SYSTEM SPECIALIST.AUTOMOBILE RENTAL AGENT Work Phone: [facility] 03-17-2024 18:51-0400 Heart rate 87 /min Shoshana Perry COMPUTER SYSTEM SPECIALIST.AUTOMOBILE RENTAL AGENT Work Phone: [facility] 03-17-2024 18:51-0400 Respiratory rate 18 /min Shoshana Perry COMPUTER SYSTEM SPECIALIST.AUTOMOBILE RENTAL AGENT Work Phone: [facility] 03-17-2024 18:51-0400 SaO2% (BldA) [Mass fraction] 93 % Shoshana Perry COMPUTER SYSTEM SPECIALIST.AUTOMOBILE RENTAL AGENT Work Phone: [facility] 03-17-2024 18:51-0400 Systolic blood pressure 139 mm[Hg] Shoshana Perry COMPUTER SYSTEM SPECIALIST.AUTOMOBILE RENTAL AGENT Work Phone: [facility] 02-07-2024 10:37-0500 Body temperature 97.9 [degF] Anitra Suppan COMPUTER SYSTEM SPECIALIST.CONSUMER LOAN OFFICER Work Phone: [facility] 02-07-2024 10:37-0500 Body weight 60.33 kg Anitra Suppan COMPUTER SYSTEM SPECIALIST.CONSUMER LOAN OFFICER Work Phone: [facility] 02-07-2024 10:37-0500 Diastolic blood pressure 62 mm[Hg] Anitra Suppan COMPUTER SYSTEM SPECIALIST.CONSUMER LOAN OFFICER Work Phone: [facility] 02-07-2024 10:37-0500 Heart rate 71 /min Anitra Suppan COMPUTER SYSTEM SPECIALIST.CONSUMER LOAN OFFICER Work Phone: [facility] 02-07-2024 10:37-0500 Respiratory rate 18 /min Anitra Suppan COMPUTER SYSTEM SPECIALIST.CONSUMER LOAN OFFICER Work Phone: [facility] 02-07-2024 10:37-0500 SaO2% (BldA) [Mass fraction] 97 % Anitra Suppan COMPUTER SYSTEM SPECIALIST.CONSUMER LOAN OFFICER Work Phone: [facility] 02-07-2024 10:37-0500 Systolic blood pressure 112 mm[Hg] Anitra Suppan COMPUTER SYSTEM SPECIALIST.CONSUMER LOAN OFFICER Work Phone: [facility] 01-17-2024 15:01-0500 Body weight 61.24 kg Anitra Suppan COMPUTER SYSTEM SPECIALIST.CONSUMER LOAN OFFICER Work Phone: [facility] 01-17-2024 15:01-0500 Diastolic blood pressure 66 mm[Hg] Anitra Suppan COMPUTER SYSTEM SPECIALIST.CONSUMER LOAN OFFICER Work Phone: [facility] 01-17-2024 15:01-0500 Heart rate 74 /min Anitra Suppan COMPUTER SYSTEM SPECIALIST.CONSUMER LOAN OFFICER Work Phone: [facility] 01-17-2024 15:01-0500 SaO2% (BldA) [Mass fraction] 95 % Anitra Suppan COMPUTER SYSTEM SPECIALIST.CONSUMER LOAN OFFICER Work Phone: [facility] 01-17-2024 15:01-0500 Systolic blood pressure 128 mm[Hg] Anitra Ortizmariia CHACKOCONSUMER LOAN OFFICER Work Phone: [facility] 08-19-2023 18:51-0400 Body weight 60.78 kg Graham Flores MD Work Phone: [facility] 08-19-2023 18:51-0400 Diastolic blood pressure 82 mm[Hg] Graham Flores MD Work Phone: [facility] 08-19-2023 18:51-0400 Heart rate 80 /min Graham Flores MD Work Phone: [facility] 08-19-2023 18:51-0400 Systolic blood pressure 122 mm[Hg] Graham Flores MD Work Phone: [facility] 07-02-2023 10:21-0400 Body weight 61.69 kg NA Andersen PA-C Work Phone: [facility] 07-02-2023 10:21-0400 Diastolic blood pressure 62 mm[Hg] NA Andersen PA-C Work Phone: [facility] 07-02-2023 10:21-0400 Heart rate 79 /min NA Andersen PA-C Work Phone: [facility] 07-02-2023 10:21-0400 Respiratory rate 16 /min NA Andersen PA-C Work Phone: [facility] 07-02-2023 10:21-0400 SaO2% (BldA) [Mass fraction] 95 % NA Andersen PA-C Work Phone: [facility] 07-02-2023 10:21-0400 Systolic blood pressure 112 mm[Hg] NA Andersen PA-C Work Phone: [facility] 05-28-2023 11:36-0400 Body weight 61.69 kg NA Andersen PA-C Work Phone: [facility] 05-28-2023 11:36-0400 Diastolic blood pressure 72 mm[Hg] NA Andersen PA-C Work Phone: [facility] 05-28-2023 11:36-0400 Heart rate 74 /min NA Andersen PA-C Work Phone: [facility] 05-28-2023 11:36-0400 Respiratory rate 16 /min NA Andersen PA-C Work Phone: [facility] 05-28-2023 11:36-0400 SaO2% (BldA) [Mass fraction] 98 % NA Andersen PA-C Work Phone: [facility] 05-28-2023 11:36-0400 Systolic blood pressure 118 mm[Hg] NA Andersen PA-C Work Phone: [facility] 01-22-2023 11:45-0500 Body weight 62.14 kg NA Andersen PA-C Work Phone: [facility] 01-22-2023 11:45-0500 Diastolic blood pressure 70 mm[Hg] NA Andersen PA-C Work Phone: [facility] 01-22-2023 11:45-0500 Heart rate 70 /min NA Andersen PA-C Work Phone: [facility] 01-22-2023 11:45-0500 Respiratory rate 16 /min NA Andersen PA-C Work Phone: [facility] 01-22-2023 11:45-0500 SaO2% (BldA) [Mass fraction] 94 % NA Andersen PA-C Work Phone: [facility] 01-22-2023 11:45-0500 Systolic blood pressure 130 mm[Hg] NA Andersen PA-C Work Phone: [facility] 01-04-2023 16:36-0500 Body height 153.5 cm NA Andersen PA-C Work Phone: [facility] 01-04-2023 16:36-0500 Body weight 62.6 kg NA Andersen PA-C Work Phone: [facility] 01-04-2023 16:36-0500 Diastolic blood pressure 74 mm[Hg] NA Andersen PA-C Work Phone: [facility] 01-04-2023 16:36-0500 Heart rate 66 /min NA Andersen PA-C Work Phone: [facility] 01-04-2023 16:36-0500 Respiratory rate 16 /min NA Andersen PA-C Work Phone: [facility] 01-04-2023 16:36-0500 Systolic blood pressure 120 mm[Hg] NA Andersen PA-C Work Phone: [facility] 12-25-2022 11:10-0500 Body temperature 97.81 [degF] Kimberly Athy PA-C Work Phone: [facility] 12-25-2022 11:10-0500 Body weight 61.87 kg Kimberly Athy PA-C Work Phone: [facility] 12-25-2022 11:10-0500 Diastolic blood pressure 78 mm[Hg] Kimberly Athy PA-C Work Phone: [facility] 12-25-2022 11:10-0500 Heart rate 83 /min Kimberly Athy PA-C Work Phone: [facility] 12-25-2022 11:10-0500 Respiratory rate 18 /min Kimberly Athy PA-C Work Phone: [facility] 12-25-2022 11:10-0500 SaO2% (BldA) [Mass fraction] 97 % Kimberly Athy PA-C Work Phone: [facility] 12-25-2022 11:10-0500 Systolic blood pressure 134 mm[Hg] Kimberly Athy PA-C Work Phone: [facility] 11-13-2022 15:38-0500 Body height 152.4 cm NA Andersen PA-C Work Phone: [facility] 11-13-2022 15:38-0500 Body temperature 98.01 [degF] NA Andersen PA-C Work Phone: [facility] 11-13-2022 15:38-0500 Body weight 61.69 kg NA Andersen PA-C Work Phone: [facility] 11-13-2022 15:38-0500 Diastolic blood pressure 82 mm[Hg] NA Andersen PA-C Work Phone: [facility] 11-13-2022 15:38-0500 Heart rate 81 /min NA Andersen PA-C Work Phone: [facility] 11-13-2022 15:38-0500 SaO2% (BldA) [Mass fraction] 97 % NA Andersen PA-C Work Phone: [facility] 11-13-2022 15:38-0500 Systolic blood pressure 130 mm[Hg] NA Andersen PA-C Work Phone: [facility] 11-06-2022 11:59-0500 Body weight 61.69 kg NA Andersen PA-C Work Phone: [facility] 11-06-2022 11:59-0500 Diastolic blood pressure 70 mm[Hg] NA Andersen PA-C Work Phone: [facility] 11-06-2022 11:59-0500 Heart rate 85 /min NA Andersen PA-C Work Phone: [facility] 11-06-2022 11:59-0500 Respiratory rate 16 /min NA Andersen PA-C Work Phone: [facility] 11-06-2022 11:59-0500 SaO2% (BldA) [Mass fraction] 97 % NA Andersen PA-C Work Phone: [facility] 11-06-2022 11:59-0500 Systolic blood pressure 136 mm[Hg] NA Andersen PA-C Work Phone: [facility] 10-01-2022 15:43-0400 Body temperature 98.01 [degF] NA Andersen PA-C Work Phone: [facility] 10-01-2022 15:43-0400 Body weight 62.14 kg NA Andersen PA-C Work Phone: [facility] 10-01-2022 15:43-0400 Diastolic blood pressure 72 mm[Hg] NA Andersen PA-C Work Phone: [facility] 10-01-2022 15:43-0400 Heart rate 74 /min NA Andersen PA-C Work Phone: [facility] 10-01-2022 15:43-0400 Respiratory rate 20 /min NA Andersen PA-C Work Phone: [facility] 10-01-2022 15:43-0400 SaO2% (BldA) [Mass fraction] 97 % NA Andersen PA-C Work Phone: [facility] 10-01-2022 15:43-0400 Systolic blood pressure 138 mm[Hg] NA Andersen PA-C Work Phone: [facility] 08-14-2022 10:45-0400 Body weight 61.87 kg Shira Podlogar COMPUTER SYSTEM SPECIALIST.AUTOMOBILE RENTAL AGENT Work Phone: [facility] 08-14-2022 10:45-0400 Diastolic blood pressure 78 mm[Hg] Shira Podlogar COMPUTER SYSTEM SPECIALIST.AUTOMOBILE RENTAL AGENT Work Phone: [facility] 08-14-2022 10:45-0400 Heart rate 78 /min Shira Podlogar COMPUTER SYSTEM SPECIALIST.AUTOMOBILE RENTAL AGENT Work Phone: [facility] 08-14-2022 10:45-0400 Respiratory rate 16 /min Shira Podlogar COMPUTER SYSTEM SPECIALIST.AUTOMOBILE RENTAL AGENT Work Phone: [facility] 08-14-2022 10:45-0400 SaO2% (BldA) [Mass fraction] 96 % Shira Podlogar COMPUTER SYSTEM SPECIALIST.AUTOMOBILE RENTAL AGENT Work Phone: [facility] 08-14-2022 10:45-0400 Systolic blood pressure 114 mm[Hg] Shira Podlogar COMPUTER SYSTEM SPECIALIST.AUTOMOBILE RENTAL AGENT Work Phone: [facility] 04-06-2022 09:49-0400 Body weight 61.51 kg Shira Podlogar COMPUTER SYSTEM SPECIALIST.AUTOMOBILE RENTAL AGENT Work Phone: [facility] 04-06-2022 09:49-0400 Heart rate 75 /min Shira Podlogar COMPUTER SYSTEM SPECIALIST.AUTOMOBILE RENTAL AGENT Work Phone: [facility] 04-06-2022 09:49-0400 Respiratory rate 18 /min Shira Podlogar COMPUTER SYSTEM SPECIALIST.AUTOMOBILE RENTAL AGENT Work Phone: [facility] 04-06-2022 09:49-0400 SaO2% (BldA) [Mass fraction] 99 % Shira Podlogar COMPUTER SYSTEM SPECIALIST.AUTOMOBILE RENTAL AGENT Work Phone: [facility] Encounters Encounter Date Encounter Type Care Provider Facility Start: 05-13-2025 End: 05-13-2025 Telephone encounter Anitra A Suppan COMPUTER SYSTEM SPECIALIST.AUTOMOBILE RENTAL AGENT Work Phone: [facility] Start: 05-11-2025 End: 05-11-2025 Telephone encounter Anitra A Suppan COMPUTER SYSTEM SPECIALIST.AUTOMOBILE RENTAL AGENT Work Phone: [facility] Start: 05-04-2025 End: 05-04-2025 ambulatory Anitra Suppan Facility:[facility] Start: 04-14-2025 End: 04-14-2025 ambulatory Anitra Suppan Facility:[facility] Start: 04-09-2025 ambulatory Anitra Suppan Facil ity:[facility] Start: 04-07-2025 End: 04-07-2025 ambulatory Andi Seville Facility:[facility] Start: 03-31-2025 End: 03-31-2025 ambulatory ANITRA A SUPPAN Facility:[facility] Start: 03-31-2025 End: 03-31-2025 Patient encounter procedure Shira Podlogar COMPUTER SYSTEM SPECIALIST.AUTOMOBILE RENTAL AGENT Work Phone: [facility] Comment on above: Acute bilateral low back pain without sciatica (Primary Dx) Start: 03-31-2025 ambulatory Anitra Suppan [facility] Start: 03-30-2025 ambulatory Anitra Suppan [facility] Start: 03-29-2025 End: 03-29-2025 ambulatory ANITRA A SUPPAN Facility:[facility] Start: 03-26-2025 ambulatory Anitra Suppan [facility] Start: 03-24-2025 End: 03-24-2025 ambulatory Anitra Suppan [facility] Start: 03-19-2025 End: 03-20-2025 Follow-up encounter Dawit Phelan APRN.CNP Work Phone: [facility] [place] Comment on above: Results Start: 03-18-2025 End: 03-18-2025 Patient encounter procedure Dawit Phelan APRN.AUTOMOBILE RENTAL AGENT Work Phone: [facility] [place] Comment on above: Dry mouth (Primary D x); Leg cramps Start: 03-18-2025 End: 03-18-2025 ambulatory ANITRA A SUPPAN Facility:[facility] Start: 03-18-2025 End: 03-18-2025 Telephone encounter Anitra A Suppan RIGO.AUTOMOBILE RENTAL AGENT Work Phone: [facility] [place] Start: 03-17-2025 End: 03-17-2025 ambulatory Anitra Suppan [facility] Start: 03-16-2025 End: 03-16-2025 Telephone encounter Anitra A Suppan RIGO.AUTOMOBILE RENTAL AGENT Work Phone: [facility] [place] Comment on above: Patient Update Start: 03-16-2025 End: 03-16-2025 Office outpatient new 45 minutes Cliff Troncoso MD Work Phone: [facility] [place] Comment on above: Pancreatic adenocarc inoma (HCC) (Primary Dx) Start: 03-16-2025 End: 03-16-2025 ambulatory ANITRA SUPPAN [facility] Start: 03-15-2025 End: 03-15-2025 Office outpatient visit 15 minutes Anitra A Suppan COMPUTER SYSTEM SPECIALIST.AUTOMOBILE RENTAL AGENT Work Phone: [facility] [place] Comment on above: Anxiety with depress ion (Primary Dx); 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); Screening for depression; Urinary urgency Start: 03-15-2025 End: 03-15-2025 ambulatory ANITRA A SUPPAN Facility:[facility] Start: 03-15-2025 End: 03-15-2025 Patient encounter procedure Nathalia Jay APRN.AUTOMOBILE RENTAL AGENT Work Phone: [facility] Comment on above: Anxious mood (Primar y Dx) Start: 03-04-2025 End: 03-04-2025 ambulatory Anitra Suppan [facility] Start: 03-03-2025 End: 03-03-2025 ambulatory Anitra Suppan [facility] Start: 02-24-2025 End: 02-24-2025 Patient encounter procedure Sena Hahn MA [facility] [place] Start: 02-24-2025 End: 02-24-2025 ambulatory Sena Shivani Hahn MA [facility] Start: 02-18-2025 ambulatory Vellaura Mays Facility :[facility] Start: 02-15-2025 End: 02-15-2025 Refill Anitra A Suppan COMPUTER SYSTEM SPECIALIST.AUTOMOBILE RENTAL AGENT Work Phone: [facility] Comment on above: Refill Request Patient Update Start: 02-10-2025 End: 02-10-2025 Anesthesia consultation Flaquito Pineda MD Work Phone: [facility] Endoscopy Start: 02-10-2025 End: 02-10-2025 ambulatory QUINTEN FRANCO [facility] Start: 02-10-2025 End: 02-10-2025 Subsequent hospital visit by physician Quinten Franco MD Work Phone: [facility] Endoscopy Comment on above: Other specified dise ases of pancreas Start: 02-10-2025 ambulatory [employer] Facili ty:[facility] Start: 01-26-2025 End: 01-26-2025 ambulatory ANITRA A SUPPAN Facility:[facility] Start: 01-21-2025 End: 01-22-2025 Telephone encounter Anitra A Suppan COMPUTER SYSTEM SPECIALIST.AUTOMOBILE RENTAL AGENT Work Phone: [address] [place] [address] Comment on above: Patient Question Start: 01-15-2025 End: 01-15-2025 ambulatory ANITRA A SUPPAN Facility:[facility] Start: 01-15-2025 End: 01-15-2025 Subsequent hospital visit by physician Mri [employer] [facility] (I-Stat/1.5t) Work Phone: Radiology Start: 01-14-2025 End: 01-14-2025 Telephone encounter Anitra A Suppan COMPUTER SYSTEM SPECIALIST.AUTOMOBILE RENTAL AGENT Work Phone: [facility] Comment on above: Orders (MRI) Start: 01-05-2025 End: 01-05-2025 ambulatory Sena Hahn MA [facility] [place] [facility] Start: 01-05-2025 End: 01-05-2025 Patient encounter procedure Sena Hahn MA [facility] [place] Comment on above: Population Health Na vigation Outreach (ACO WORKBENC NAIN PCSA) Start: 01-01-2025 End: 01-01-2025 ambulatory Anitra Suppan [facility] Start: 12-30-2024 End: 12-30-2024 ambulatory ANITRA A SUPPAN Facility:[facility] Start: 12-30-2024 End: 12-30-2024 Nursing evaluation of patient and report Mi Nurse Work Phone: [facility] Comment on above: H. pylori infection Start: 12-22-2024 End: 12-22-2024 Telephone encounter Anitra A Suppan COMPUTER SYSTEM SPECIALIST.AUTOMOBILE RENTAL AGENT Work Phone: [facility] Comment on above: fax referral to [facility] Dr. Rm Start: 12-18-2024 End: 12-18-2024 ambulatory ANITRA A SUPPAN Facility:[facility] Start: 12-18-2024 End: 12-18-2024 Office outpatient visit 15 minutes Anitra A Suppan COMPUTER SYSTEM SPECIALIST.AUTOMOBILE RENTAL AGENT Work Phone: [facility] Comment on above: Pancreatic cyst (Erma ashtyn Dx); H. pylori infection Start: 12-15-2024 End: 01-06-2025 Telephone encounter Anitra A Suppan COMPUTER SYSTEM SPECIALIST.AUTOMOBILE RENTAL AGENT Work Phone: [facility] Start: 12-10-2024 End: 12-10-2024 Emergency department patient visit Tony Villanueva Facility:[facility] Start: 12-10-2024 End: 12-10-2024 Telephone encounter Anitra A Suppan COMPUTER SYSTEM SPECIALIST.AUTOMOBILE RENTAL AGENT Work Phone: [facility] Comment on above: Patient concern Start: 11-27-2024 End: 11-27-2024 ambulatory ANITRA A SUPPAN Facility:[facility] Start: 11-27-2024 End: 11-27-2024 Office outpatient visit 15 minutes Anitra A Suppan COMPUTER SYSTEM SPECIALIST.AUTOMOBILE RENTAL AGENT Work Phone: [facility] [place] Comment on above: PUD (peptic ulcer di sease) (Primary Dx); H pylori ulcer; Belching; Hypothyroidism, acquired; Burning mouth syndrome Start: 11-26-2024 End: 11-26-2024 Telephone encounter Anitra A Suppan COMPUTER SYSTEM SPECIALIST.AUTOMOBILE RENTAL AGENT Work Phone: [facility] Comment on above: Results Start: 11-23-2024 End: 11-23-2024 Subsequent hospital visit by physician Nazanin [facility] [place] Work Phone: Radiology Comment on above: Pain in both knees, unspecified chronicity [M25.561, M25.562] Start: 11-23-2024 End: 11-23-2024 Office outpatient visit 15 minutes Anitra A Suppan COMPUTER SYSTEM SPECIALIST.AUTOMOBILE RENTAL AGENT Work Phone: [facility] Comment on above: Mononeuropathy (Prim cole Dx); Abnormal serum level of lipase; Belching; Epigastric pain; Acute peptic ulcer, site unspecified, without hemorrhage or perforation; Pain in both knees, unspecified chronicity Start: 11-23-2024 End: 11-23-2024 ambulatory ANITRA A SUPPAN Facility:[facility] Start: 11-16-2024 End: 11-16-2024 Refill Anitra A Suppan COMPUTER SYSTEM SPECIALIST.AUTOMOBILE RENTAL AGENT Work Phone: [facility] Comment on above: Refill Request Start: 11-11-2024 End: 11-16-2024 Telephone encounter Anitra A Suppan COMPUTER SYSTEM SPECIALIST.AUTOMOBILE RENTAL AGENT Work Phone: [facility] Comment on above: Referral Request Start: 11-10-2024 End: 11-10-2024 ambulatory Kevin GARCIA Facility:[facility] Start: 11-10-2024 End: 11-10-2024 Telephone encounter Anitra A Suppan COMPUTER SYSTEM SPECIALIST.AUTOMOBILE RENTAL AGENT Work Phone: [facility] Comment on above: Results Start: 11-10-2024 End: 11-10-2024 ambulatory Anitra Suppan Facility:[facility] Start: 11-05-2024 End: 11-05-2024 Telephone encounter Anitra Mancera COMPUTER SYSTEM SPECIALIST.AUTOMOBILE RENTAL AGENT Work Phone: [facility] Comment on above: Patient Update Release Of Medical R ecords (Lab Results) requesting medicatio n that is Start: 11-03-2024 End: 11-03-2024 Office outpatient visit 15 minutes Anitra A Suppan COMPUTER SYSTEM SPECIALIST.AUTOMOBILE RENTAL AGENT Work Phone: [facility] Comment on above: Multinodular goiter (Primary Dx); Painful mouth; Screening for lipid disorders; Screening for diabetes mellitus; Vitamin D deficiency; Dyslipidemia Start: 11-03-2024 End: 11-03-2024 ambulatory ANITRA A SUPPAN Facility:[facility] Start: 11-02-2024 End: 11-05-2024 Telephone encounter Anitra Mancera COMPUTER SYSTEM SPECIALIST.AUTOMOBILE RENTAL AGENT Work Phone: [facility] Comment on above: Sore burning mouth s tiff [place] Start: 09-16-2024 End: 09-17-2024 Telephone encounter Anitra A Shaheed COMPUTER SYSTEM SPECIALIST.AUTOMOBILE RENTAL AGENT Work Phone: [facility] Comment on above: Patient Question Start: 09-09-2024 End: 09-10-2024 Telephone encounter Anitra A Angelan COMPUTER SYSTEM SPECIALIST.AUTOMOBILE RENTAL AGENT Work Phone: [facility] Comment on above: Orders Start: 08-21-2024 End: 08-21-2024 ambulatory YANELY ANDERSEN Facility:[facility] Start: 08-21-2024 End: 08-21-2024 Office outpatient visit 15 minutes Anitra A Suppan COMPUTER SYSTEM SPECIALIST.AUTOMOBILE RENTAL AGENT Work Phone: [facility] Comment on above: Burning mouth syndro me (Primary Dx) Start: 08-12-2024 End: 08-12-2024 ambulatory YANELY ANDERSEN Facility:[facility] Start: 08-12-2024 End: 08-12-2024 Patient encounter procedure Lindsey Stapleton PA-C Work Phone: [facility] [place] Comment on above: Chronic constipation (Primary Dx); Pancreatic lesion Start: 07-29-2024 End: 07-29-2024 ambulatory YANELY ANDERSEN Facility:[facility] Start: 07-08-2024 End: 07-08-2024 ambulatory YANELY ANDERSEN Facility:[facility] Start: 07-08-2024 End: 07-08-2024 Patient encounter procedure Shoshana Chambers APRN.CNM Work Phone: OB/Gynecology Comment on above: 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 Start: 06-26-2024 End: 06-26-2024 ambulatory YANELY ANDERSEN Facility:[facility] Start: 06-26-2024 End: 06-26-2024 [facility] Work Phone: Radiology Comment on above: Abnormal weight loss [R63.4] Start: 06-18-2024 Telephone encounter Anitra Mancera COMPUTER SYSTEM SPECIALIST.AUTOMOBILE RENTAL AGENT Work Phone: [facility] [place] Comment on above: Results Start: 06-16-2024 End: 06-16-2024 ambulatory YANELY ANDERSEN Facility:[facility] Start: 06-16-2024 Telephone encounter Anitra Mancera COMPUTER SYSTEM SPECIALIST.AUTOMOBILE RENTAL AGENT Work Phone: [facility] [place] Comment on above: Results Start: 06-16-2024 End: 06-16-2024 [facility] Work Phone: Radiology Comment on above: 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] Start: 06-16-2024 End: 06-16-2024 ambulatory YANELY ANDERSEN Facility:[facility] Start: 06-16-2024 End: 06-16-2024 Office outpatient visit 15 minutes Anitra Mancera COMPUTER SYSTEM SPECIALIST.AUTOMOBILE RENTAL AGENT Work Phone: [facility] [place] Comment on above: 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); Hypothyroidism, acquired; Fatigue, unspecified type Start: 06-09-2024 E-mail encounter fro m caregiver Jeyson Mcdowell COMPUTER SYSTEM SPECIALIST.AUTOMOBILE RENTAL AGENT Work Phone: [facility] Start: 06-09-2024 Follow-up encounter Jeyson Mcdowell COMPUTER SYSTEM SPECIALIST.AUTOMOBILE RENTAL AGENT Work Phone: [facility] Comment on above: Actionable Finding F ollow up Start: 06-05-2024 Telephone encounter Lindsey nagy PA-C [facility] Comment on above: Results Start: 05-18-2024 Refill Kevin Mary calvin PA-C Work Phone: [facility] [place] Comment on above: Refill Request Start: 04-30-2024 Telephone encounter Lindsey [facility]agy PA-C [facility]: Ardely[facility] Start: 04-29-2024 Telephone encounter Kevin Mary Andersen PA-C Work Phone: [facility] [place] Comment on above: Results Start: 04-28-2024 Telephone encounter Lindseykenney nagy PA-C [facility] Comment on above: Results Start: 04-23-2024 End: 04-23-2024 Subsequent hospital visit by physician Ct Prep [facility] Comment on above: Acute constipation [ K59.00] Start: 04-21-2024 End: 04-21-2024 Patient encounter procedure Kevin Mary Andersen PA-C Work Phone: [facility] [place] Comment on above: Acute constipation ( Primary Dx); Anxiety due to invasive procedure; RLS (restless legs syndrome); Benzodiazepine dependence (HCC) Start: 04-03-2024 Telephone encounter Lindsey nagy PA-C [facility] Comment on above: Prep instructions Start: 04-02-2024 End: 04-02-2024 Patient encounter procedure Lindsey Stapleton PA-C [facility] Comment on above: Acute constipation ( Primary Dx); Abnormal weight loss; Constipation, unspecified constipation type Start: 03-24-2024 End: 03-24-2024 Subsequent hospital visit by physician Nazanin [facility] [place] Work Phone: Radiology Comment on above: Acute constipation [ K59.00] Start: 03-24-2024 End: 03-24-2024 Patient encounter procedure Kevin Andersen PA-C Work Phone: [facility] [place] Comment on above: Acute constipation ( Primary Dx); SVT (supraventricular tachycardia) (HCC); RUY (generalized anxiety disorder); Benzodiazepine dependence (HCC) Start: 03-17-2024 End: 03-17-2024 Patient encounter procedure Shoshana Perry APRN.AUTOMOBILE RENTAL AGENT Work Phone: [facility] Comment on above: Arm laceration, left , initial encounter (Primary Dx); Encounter for immunization Start: 03-11-2024 Telephone encounter Kevin Andersen PA-C Work Phone: [facility] [place] Comment on above: Patient Question Start: 02-07-2024 End: 02-07-2024 Office outpatient visit 15 minutes Anitra Mancera APRN.CONSUMER LOAN OFFICER Work Phone: [facility] [place] Comment on above: SVT (supraventricula r tachycardia) (HCC) (Primary Dx); Acute constipation; Nausea Start: 02-06-2024 Telephone encounter Anitra Mancera APRN.CONSUMER LOAN OFFICER Work Phone: [facility] [place] Start: 02-05-2024 ambulatory Kevin calvin PA-C Work Phone: [facility] [place] Comment on above: Patient Question (St ill constipated/) Start: 01-31-2024 Telephone encounter Anitra Mancera APRN.CONSUMER LOAN OFFICER Work Phone: [facility] [place] Comment on above: Results Start: 01-30-2024 Telephone encounter Anitra Mancera APRN.CONSUMER LOAN OFFICER Work Phone: [facility] [place] Start: 01-18-2024 Telephone encounter Kevin Andersen PA-C Work Phone: [facility] [place] Comment on above: Electronic Communica tion Start: 01-17-2024 End: 01-17-2024 Office outpatient visit 15 minutes Anitra Mancera APRN.CONSUMER LOAN OFFICER Work Phone: [facility] [place] Comment on above: Palpitations (Primar y Dx); Shortness of breath Start: 01-15-2024 Telephone encounter Kevin Mary GARCIA-C Work Phone: [facility] [place] Comment on above: Patient Update (From 01/01/24) Start: 01-01-2024 Preprocedural examination done Graham Flores MD Work Phone: [facility] Start: 12-27-2023 Telephone encounter Graham Flores MD Work Phone: [facility] [place] Comment on above: Patient Update Start: 11-15-2023 Refill Kevin Mary GARCIA-C Work Phone: [facility] [place] Comment on above: Refill Request Start: 10-03-2023 Telephone encounter Kevin Mary GARCIA-C Work Phone: [facility] [place] Comment on above: Orders Start: 09-23-2023 End: 09-23-2023 ambulatory Emg 850) Neurology Start: 09-23-2023 End: 09-23-2023 Patient encounter procedure Emg 1 Neur [facility] (Max Weight: 850) [facility] Start: 08-20-2023 Telephone encounter Kevin GARCIA-C Work Phone: [facility] [place] Comment on above: Patient Request Start: 08-19-2023 End: 08-19-2023 Patient encounter procedure Graham Flores MD Work Phone: [facility] [place] Comment on above: RLS (restless legs s yndrome) (Primary Dx); History of total bilateral knee replacement; Paresthesia; Family history of iron deficiency Start: 07-30-2023 Telephone encounter Kevin GARCIA-C Work Phone: [facility] [place] Comment on above: constipation problem ; Patient Question Start: 07-05-2023 Telephone encounter Kevin Andersen JOSEBarbAnn Work Phone: [facility] [place] Comment on above: Patient Question Start: 07-02-2023 End: 07-02-2023 Patient encounter procedure Kevin GEORGESAnn Work Phone: [facility] [place] Comment on above: Pencilling of stools (Primary Dx); Altered bowel habits; Generalized anxiety disorder; Benzodiazepine dependence (HCC); Orthostatic syncope; BPPV (benign paroxysmal positional vertigo), unspecified laterality; Paroxysmal supraventricular tachycardia (HCC); Mild intermittent asthma without complication; Acquired hypothyroidism; Polyarthralgia; Iron deficiency anemia, unspecified iron deficiency anemia type; RLS (restless legs syndrome) Start: 06-10-2023 Telephone encounter Kevin Andersen JOSEBarbAnn Work Phone: [facility] [place] Comment on above: Refill Request; Refe rral Request (Dr. Tabares Referral) Start: 06-03-2023 Telephone encounter Kevin Andersen JOSEBarbAnn Work Phone: [facility] [place] Comment on above: Constipation Start: 05-30-2023 Telephone encounter Kevin Andersen JOSEBarbAnn Work Phone: [facility] [place] Comment on above: Appointment; Results Start: 05-28-2023 End: 05-28-2023 Subsequent hospital visit by physician Nazanin [facility] [place] Work Phone: Radiology Comment on above: Pencilling of stools [R19.5] Start: 05-28-2023 End: 05-28-2023 Patient encounter procedure Kevin Andersen JOSEBarbAnn Work Phone: [facility] [place] Comment on above: Pencilling of stools (Primary Dx); Acquired hypothyroidism; Elevated sed rate Start: 05-24-2023 Telephone encounter Kevin Andersen JOSEBarbAnn Work Phone: [facility] [place] Comment on above: Results Start: 02-13-2023 Telephone encounter Kevin Andersen JOSEBarbAnn Work Phone: [facility] [place] Comment on above: Patient Question Start: 01-22-2023 End: 01-22-2023 Patient encounter procedure Kevin Andersen PA-C Work Phone: [facility] [place] Comment on above: Generalized anxiety disorder (Primary Dx); Palpitations; Lightheadedness; SOB (shortness of breath) Start: 01-07-2023 Telephone encounter Kevin Andersen PA-C Work Phone: [facility] [place] Comment on above: Orders Start: 01-04-2023 End: 01-04-2023 Patient encounter procedure Kevin Mary Andersen PA-C Work Phone: [facility] [place] Comment on above: Disorder of bone and cartilage (Primary Dx); Moderate persistent asthma without complication; Paroxysmal supraventricular tachycardia (HCC); Orthostatic syncope; Hyperlipidemia LDL goal <130; Acute midline low back pain without sciatica; Rectal pain; Iron deficiency anemia, unspecified iron deficiency anemia type; Lower respiratory infection; Acquired hypothyroidism; Anxiety with depression; BPPV (benign paroxysmal positional vertigo), unspecified laterality; RLS (restless legs syndrome); BMS (burning mouth syndrome); Hernia of anterior abdominal wall; History of total bilateral knee replacement; Asymptomatic menopausal state ; Iron deficiency anemia secondary to inadequate dietary iron intake ; Iron deficiency Start: 12-25-2022 End: 12-25-2022 Patient encounter procedure Kimberly Gómez PA-C Work Phone: [facility] Comment on above: Bacterial sinusitis (Primary Dx) Start: 12-13-2022 Refill Kevin calvin PA-C Work Phone: [facility] [place] Comment on above: Refill Request Start: 11-19-2022 Telephone encounter Kevin Andersen PA-C Work Phone: [facility] [place] Comment on above: Results Start: 11-13-2022 End: 11-13-2022 Subsequent hospital visit by physician Nazanin [facility] [place] Work Phone: Radiology Comment on above: Acute midline low ba ck pain without sciatica [M54.50] Start: 11-13-2022 End: 11-13-2022 Patient encounter procedure Kevin Andersen PA-C Work Phone: [facility] [place] Comment on above: Acute midline low ba ck pain without sciatica (Primary Dx); Rectal pain Start: 11-13-2022 Telephone encounter Kevin Andersen TABITHA Work Phone: [facility] [place] Comment on above: Medication Problem Start: 11-09-2022 Telephone encounter Kevin Andersen TABITHA Work Phone: [facility] [place] Comment on above: Patient Update Start: 11-07-2022 Telephone encounter Kevin Andersen TABITHA Work Phone: [facility] [place] Comment on above: Medication Update Start: 11-07-2022 End: 11-07-[address] [facility] Work Phone: Start: 11-07-2022 End: 11-07-[address] [facility] Start: 11-06-2022 End: 11-06-2022 Patient encounter procedure Kevin Miranda Ganesh LU Work Phone: [facility] [place] Comment on above: Rapid heart rate (Pr imary Dx); SOB (shortness of breath); Iron deficiency Start: 10-15-2022 Refill Kevin Castillo nikunj LU Work Phone: [facility] [place] Comment on above: Refill Request Start: 10-04-2022 Telephone encounter Kevin Andersen TABITHA Work Phone: [facility] [place] Comment on above: Patient Update; Maya ent Question Start: 10-01-2022 End: 10-01-2022 Subsequent hospital visit by physician Nazanin [facility] Work Phone: Radiology Comment on above: Lower respiratory in fection [J22] Start: 10-01-2022 End: 10-01-2022 Patient encounter procedure Kevin Mary Ganesh LU Work Phone: [facility] [place] Comment on above: Lower respiratory in fection (Primary Dx); Iron deficiency anemia, unspecified iron deficiency anemia type Start: 08-17-2022 Telephone encounter Shira arnold APRN.CNP Work Phone: [facility] [place] Comment on above: Results Start: 08-14-2022 End: 08-14-2022 Patient encounter procedure Shira Ordonez COMPUTER SYSTEM SPECIALIST.AUTOMOBILE RENTAL AGENT Work Phone: [facility] [place] Comment on above: RLS (restless legs s yndrome) (Primary Dx); Iron deficiency; Generalized anxiety disorder Start: 08-09-2022 Telephone encounter Jonnie Mckeon MD Work Phone: [facility] [place] Comment on above: Patient Question Start: 07-30-2022 Refill Troy Mckeon MD Work Phone: [facility] [place] Comment on above: Medication Problem Start: 06-19-2022 Telephone encounter Jonnie Mckeon MD Work Phone: [facility] [place] Comment on above: Mammogram Order Start: 04-23-2022 Telephone encounter Megan GILW Work Phone: Psycholgy Comment on above: Returning Patient's Call Start: 04-18-2022 Telephone encounter Megan Saab AUTOMOTIVE MECHANIC Work Phone: Psycholgy Comment on above: outreach Start: 04-06-2022 Chart abstracting Megan Saab AUTOMOTIVE MECHANIC Work Phone: Psycholgy Start: 04-06-2022 End: 04-06-2022 Patient encounter procedure Shira Ordonez COMPUTER SYSTEM SPECIALIST.AUTOMOBILE RENTAL AGENT Work Phone: [facility] [place] Comment on above: Anxiety with depress ion (Primary Dx) Start: 04-03-2021 End: 04-03-2021 Subsequent hospital visit by physician Nazanin [facility] [place] Work Phone: Radiology Comment on above: Change in bowel move ment [R19.8] Start: 09-16-2019 End: 09-16-2019 Subsequent hospital visit by physician Bc Elder Work Phone: [facility] Start: 08-07-2019 End: 08-07-2019 Subsequent hospital visit by physician Bc Elder Work Phone: [facility] Start: 04-18-2019 Patient encounter procedure SHASHANK FARIA Facility:[facility] Start: 03-19-2019 End: 03-19-2019 Patient encounter procedure KRYS VITEBSKIY Facility:[facility] Start: 02-17-2019 End: 02-17-2019 Patient encounter procedure KRYS VITEBSKIY Facility:[facility] Start: 01-18-2019 End: 01-19-2019 Patient encounter procedure KRYS VITEBSKIY Facility:[facility] Start: 12-19-2018 End: 12-20-2018 Patient encounter procedure KRYS VITEBSKIY Facility:[facility] Start: 11-19-2018 End: 11-20-2018 Patient encounter procedure KRYS VITEBSKIY Facility:[facility] Start: 10-20-2018 End: 10-21-2018 Patient encounter procedure KRYS VITBASILSKIY Facility:[facility] Start: 09-20-2018 End: 09-21-2018 Patient encounter procedure KRYS VITEBSKIY Facility:[facility] Start: 08-21-2018 End: 08-22-2018 Patient encounter procedure KRYS SITASKIY Facility:[facility] Start: 07-22-2018 End: 07-23-2018 Patient encounter procedure KRYS VITBASILSKIY Facility:[facility] Start: 06-22-2018 Patient encounter procedure KRYS VITBASILSKIY Facility:[facility] Start: 05-23-2018 End: 05-23-2018 Patient encounter procedure KRYS VITEBSKIY Facility:[facility] Start: 04-23-2018 Patient encounter procedure KRYS SITASKIY Facility:[facility] Start: 01-31-[address] [facility] Work Phone: Start: 04-30-2012 Evaluation and management of inpatient [facility]- Procedures Date Procedure Procedure Detail Performing Clinician Start: 03-15-2025 Urnls dip stick/tablet rgnt auto w/o microscopy Anitra Mancera APRN.AUTOMOBILE RENTAL AGENT Work Phone: Start: 03-15-2025 Adult depression screening assessment Nathalia Jay APRN.AUTOMOBILE RENTAL AGENT Work Phone: Start: 01-26-2025 Thyrotropin [Units/volume] in Serum or Plasma Quinten Franco MD Work Phone: Start: 06-16-2024 Us pelvic nonobstetric real-time image complete Anitra Mancera APRN.AUTOMOBILE RENTAL AGENT Work Phone: Start: 03-24-2024 Radiologic exam abdomen 1 view M Mary Ganesh PA-C Work Phone: Start: 01-17-2024 Ecg routine ecg w/least 12 lds i&r only Anitra Mancera APRN.CONSUMER LOAN OFFICER Work Phone: Start: 01-01-2024 History of appendectomy History of appendectomy Graham Flores MD Work Phone: Start: 09-23-2023 Nerve conduction studies 5-6 studies Graham Flores MD Work Phone: Start: 05-28-2023 Radiologic exam abdomen 1 view M Mary Andersen PA-C Work Phone: Start: 01-22-2023 Ecg routine ecg w/least 12 lds i&r only [facility] Start: 11-13-2022 Radex spine lumbosacral 2/3 views M Mary Andersen PA-C Work Phone: Start: 11-07-2022 Screening mammography Start: 11-06-2022 Ecg routine ecg w/least 12 lds i&r only [facility] Start: 10-05-2022 Blood occult fecal hgb deter ia qual feces 1-3 M Mary Andersen PA-C Work Phone: Start: 10-01-2022 Radiologic exam chest 2 views M Mary Andersen PA-C Work Phone: Start: 04-03-2021 Radiologic exam abdomen 1 view Sena Mcfarlane APRN.AUTOMOBILE RENTAL AGENT Work Phone: Start: 08-07-2019 Radex hip unilateral with pelvis 1 view Bc Elder Work Phone: Start: 08-07-2019 Radiologic exam both knees standing anteropost Bc Elder Work Phone: Start: 08-07-2019 Radiologic examination knee 1/2 views Bc Elder Work Phone: H/O: surgery History of loop recorder H/O: surgery H/O prior ablati on treatment History of appendectomy History of append ectomy History of decompres live of median nerve S/P carpal tunnel release History of operative procedure on knee History of bilateral knee replacement History of repair of musculotendinous cuff of shoulder Hx of rotator cuff surgery History of tonsillectomy History of tonsillectomy Laboratory test resu lt abnormal Abnormal serum level of lipase Anitra Mancera COMPUTER SYSTEM SPECIALIST.AUTOMOBILE RENTAL AGENT Work Phone: Plan of Treatment Date Care Activity Detail Author Start: 03-17-2034 DTaP/Tdap/Td Vaccines (3 - Td or Tdap) DTaP/Tdap/Td Vaccines (3 - Td or Tdap) [facility] Start: 03-17-2034 Urine microalbumin profile DTaP,Tdap,Td Vaccine (3 - Td or Tdap) [facility] Start: 03-18-2028 Diabetes Screening Diabetes Screening [facility] Start: 11-23-2027 Diabetes Screening Diabetes Screening [facility] Start: 11-03-2027 Diabetes Screening Diabetes Screening [facility] Start: 06-16-2027 Diabetes Screening Diabetes Screening [facility] Start: 04-23-2027 Diabetes Screening Diabetes Screening [facility] Start: 01-01-2027 Diabetes Screening Diabetes Screening [facility] Start: 10-29-2026 Diabetes Screening Diabetes Screening [facility] Start: 07-02-2026 DIABETES SCREEN DIABETES SCREEN [facility] Start: 07-02-2026 Diabetes Screening Diabetes Screening [facility] Start: 05-01-2026 DIABETES SCREEN DIABETES SCREEN [facility] Start: 03-15-2026 Depression Screening Depression Screening [facility] Start: 01-26-2026 Thyroid stimulating hormone measurement TSH Level [facility] Start: 01-08-2026 DIABETES SCREEN DIABETES SCREEN [facility] Start: 01-01-2026 DIABETES SCREEN DIABETES SCREEN [facility] Start: 12-23-2025 DTaP/Tdap/Td vaccine (2 - Td) DTaP/Tdap/Td vaccine (2 - Td) [email or web address] Start: 12-23-2025 Urine microalbumin profile [facility] Start: 11-06-2025 DIABETES SCREEN DIABETES SCREEN [facility] Start: 09-18-2025 DIABETES SCREEN DIABETES SCREEN [facility] Start: 09-07-2025 End: 09-07-2025 Patient encounter procedure 09/07/2025 10:40 AM EDT Office Visit Endocrinology [address] [place] [address] Dasia Funes MD [address] [place] [address] Hypothyroidism follow up Endocrinology Comment on above: Hypothyroidism follow up Start: 06-14-2025 End: 06-14-2025 Patient encounter procedure 06/14/2025 10:40 AM EDT Office Visit [facility] [place] [address] [place] [address] Anitra Mancera APRN.AUTOMOBILE RENTAL AGENT [address] [place] [address] 3 month exam, pancreatic cancer [facility] Comment on above: 3 month exam, pancreatic cancer Start: 05-31-2025 Influenza vaccination Influenza Vaccine (#1) [place] [facility] Comment on above: Postponed from 08/02/2024 (Declined at t his time) Start: 05-14-2025 End: 05-14-2025 Patient encounter procedure 05/14/2025 11:40 AM EDT Office Visit Endocrinology [address] [place] [address] Dasia Funes MD [address] [place] [address] follow up to further discuss Hypothyroidism Endocrinology Comment on above: follow up to further discuss Hypothyroid ism Start: 05-08-2025 DIABETES SCREEN DIABETES SCREEN [facility] Start: 05-04-2025 End: 05-04-2025 Patient encounter procedure 05/04/2025 10:00 AM EDT Office Visit Endocrinology [address] [place] [address] Dasia Funes MD [address] [place] [address] Hypothyroidism, acquired [E03.9] Endocrinology Comment on above: Hypothyroidism, acquired [E03.9] Start: 04-12-2025 Covid-19 Vaccine ( season) Covid-19 Vaccine () [facility] Start: 03-29-2025 End: 06-28-2025 Urinalysis complete panel - Urine URINALYSIS (WITH MICROSCOPIC) WITH CULTURE IF INDICATED Lab Routine Urinary urgency Expected: 03/29/2025, Expires: 06/28/2025 [facility] Work Phone: Comment on above: Expected: 03/29/2025, Expires: Start: 03-29-2025 End: 03-29-2025 ambulatory 03/29/2025 10:15 AM EDT Results Only [facility] [address] [place] [address] [facility] Start: 03-18-2025 End: 06-17-2025 Comprehensive metabolic 2000 panel - Serum or Plasma [facility] Work Phone: Comment on above: Expected: 03/18/2025, Expires: Start: 03-18-2025 End: 06-17-2025 Magnesium [Mass/volume] in Serum or Plasma [facility] Comment on above: Expected: 03/18/2025, Expires: Start: 02-15-2025 End: 02-15-2025 Patient encounter procedure General Surgery Comment on above: 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 Ongoing nausea and bloating. Completed TX for positive H pylori. [facility] ER CT scan read by radiology and recommended surgical FNA Pancreas Cystic Lesi on - Refer from PCP Start: 02-10-2025 End: 02-10-2025 Esophagoscopy flexible transoral ultrasound exam ESOPHAGOSCOPIC ULTRASOUND EXAM Other specified diseases of pancreas 02/10/2025 11:55 AM EDT [facility] Gastroenterology Start: 02-09-2025 End: 02-09-2025 Patient encounter procedure 02/09/2025 1:50 PM EDT Office Visit Gastroenterology [place] [address] [place] [id number] Lindsey Stapleton PA-C [address] [place] [address] 6 month follow up office visit, chronic constipation, pancreatic lesion Gastroenterology [facility] Comment on above: 6 month follow up office visit, chronic constipation, pancreatic lesion Start: 02-05-2025 DIABETES SCREEN DIABETES SCREEN [facility] Start: 01-15-2025 End: 01-15-2025 Patient encounter procedure 01/15/2025 9:00 AM EST Appointment Radiology [address] [place], [place] [id number] CYST OF PANCREAS - OUTSIDE ORDER SCANNED INTO [facility] Comment on above: CYST OF PANCREAS - OUTSIDE ORDER SCANNED INTO [facility] Start: 01-01-2025 Shingrix Vaccine (1 of 2) Shingrix Vaccine (1 of 2) [facility] Comment on above: Postponed from 1985 (Declined at t his time) Start: 12-30-2024 End: 12-30-2024 Nursing evaluation of patient and report 12/30/2024 9:45 AM EST Nurse Visit [facility] [address] [place], [place] [id number] [place] [address] [facility] [place] [id number] H. pylori infection [A04.8] [facility] Comment on above: H. pylori infection [A04.8] Start: 12-18-2024 End: 03-19-2025 Helicobacter pylori [Quantitative] in Stomach by urea breath test BREATH TEST FOR HELICOBACTER PYLORI Lab Routine H. pylori infection Expected: 12/18/2024, Expires: 03/19/2025 [facility] Work Phone: Comment on above: Expected: 12/18/2024, Expires: Start: 12-18-2024 End: 12-18-2024 Patient encounter procedure 12/18/2024 10:00 AM EST Office Visit [facility] [address] [place] [address] Anitra Mancera APRN.AUTOMOBILE RENTAL AGENT [address] [place] [address] [facility] month f/u Start: 12-02-2024 Advance Directive Discussion Advance Directive Discussion [facility] Start: 11-27-2024 End: 11-27-2024 Patient encounter procedure 11/27/2024 11:00 AM EST Office Visit [facility] [place] [address] [place] [address] Anitra Mancera APRN.AUTOMOBILE RENTAL AGENT [address] [place] [address] 4 week medication/mouth f/u [facility] Comment on above: 4 week medication/mouth f/u Start: 11-23-2024 End: 02-22-2025 Amylase [Enzymatic activity/volume] in Serum or Plasma [facility] Comment on above: Expected: 11/23/2024, Expires: Start: 11-23-2024 End: 02-22-2025 Basic metabolic 2000 panel - Serum or Plasma [facility] Work Phone: Comment on above: Expected: 11/23/2024, Expires: Start: 11-23-2024 End: 02-22-2025 Helicobacter pylori IgG Ab [Presence] in Serum or Plasma by Immunoassay [facility] Comment on above: Expected: 11/23/2024, Expires: Start: 11-23-2024 End: 02-22-2025 Iron and Iron binding capacity panel - Serum or Plasma [facility] Comment on above: Expected: 11/23/2024, Expires: Start: 11-23-2024 End: 02-22-2025 Lipase [Enzymatic activity/volume] in Serum or Plasma [facility] Comment on above: Expected: 11/23/2024, Expires: Start: 11-23-2024 End: 12-23-2025 XR Knee - bilateral 4 Views [facility] Comment on above: Expected: 11/23/2024, Expires: 6 Start: 11-03-2024 End: 02-02-2025 25-hydroxyvitamin D3 [Mass/volume] in Serum or Plasma [facility] Comment on above: Expected: 11/03/2024, Expires: 5 Start: 11-03-2024 End: 02-02-2025 CBC W Auto Differential panel - Blood [facility] Work Phone: Comment on above: Expected: 11/03/2024, Expires: Start: 11-03-2024 End: 02-02-2025 Cobalamin (Vitamin B12) [Mass/volume] in Serum or Plasma [facility] Comment on above: Expected: 11/03/2024, Expires: Start: 11-03-2024 End: 02-02-2025 Comprehensive metabolic 2000 panel - Serum or Plasma [facility] Comment on above: Expected: 11/03/2024, Expires: 5 Start: 11-03-2024 End: 02-02-2025 Hemoglobin A1c in Blood [facility] Comment on above: Expected: 11/03/2024, Expires: Start: 11-03-2024 End: 02-02-2025 LIPID PANEL, NONFASTING [facility] Comment on above: Expected: 11/03/2024, Expires: Start: 11-03-2024 End: 02-02-2025 Magnesium [Mass/volume] in Serum or Plasma [facility] Comment on above: Expected: 11/03/2024, Expires: Start: 10-03-2024 Covid-19 Vaccine () Covid-19 Vaccine () [facility] Comment on above: Postponed from 08/02/2023 (Declined at t his time) Start: 08-21-2024 End: 08-21-2024 Patient encounter procedure 08/21/2024 9:20 AM EDT Office Visit [facility] [place] [address] [place] [address] Anitra Mancera APRN.AUTOMOBILE RENTAL AGENT [address] [place], [place] [address] burning mouth syndrome, 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 [facility] Comment on above: burning mouth syndrome, unable to see sp ecialist until October Start: 08-19-2024 End: 11-18-2024 Thyrotropin [Units/volume] in Serum or Plasma THYROID STIMULATING HORMONE Lab Routine Acquired hypothyroidism Expected: 08/19/2024, Expires: 11/18/2024 [facility] Work Phone: Comment on above: Expected: 08/19/2024, Expires: Start: 08-12-2024 End: 08-12-2024 Patient encounter procedure 08/12/2024 1:50 PM EDT Office Visit Gastroenterology [place] [address] [facility] [place] [phone] Lindsey Stapleton PA-C [address] [place] [address] 2 month follow up, (first avialable ok'd Lindsey Stapleton), acute constipation, abnormal weight loss, ct done at [facility] Gastroenterology [place] Comment on above: 2 month follow up, (first avialable ok'd Lindsey Stapleton), acute constipation, abnormal weight loss, ct done at [facility] Start: 08-02-2024 COVID-19 Vaccine ( season) COVID-19 Vaccine ( season) [facility] Start: 08-02-2024 Covid-19 Vaccine ( season) Covid-19 Vaccine ( season) [facility] Start: 08-02-2024 Covid-19 Vaccine ( season) Covid-19 Vaccine () [facility] Start: 08-02-2024 Influenza [facility] Start: 07-08-2024 End: 07-08-2024 Patient encounter procedure 07/08/2024 2:00 PM EDT Office Visit OB/Gynecology [address] [place] [address] Shoshana Chambers APRN.CNM [address] 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] Start: 06-26-2024 End: 06-26-2024 Patient encounter procedure 06/26/2024 9:20 AM EDT Appointment Radiology [address] [place] [address] MRI PANC/JENNIFER WO/W IVCON Radiology Comment on above: MRI PANC/JENNIFER WO/W IVCON Start: 06-16-2024 End: 09-15-2024 Basic metabolic 2000 panel - Serum or Plasma [facility] Comment on above: Expected: 06/16/2024, Expires: Start: 06-16-2024 End: 09-15-2024 Thyrotropin [Units/volume] in Serum or Plasma [facility] Work Phone: Comment on above: Expected: 06/16/2024, Expires: Start: 04-23-2024 End: 04-23-2024 Patient encounter procedure Cat Scan Comment on above: Acute constipation [K59.00] Start: 04-21-2024 End: 04-21-2024 Patient encounter procedure 04/21/2024 2:00 PM EDT Office Visit [facility] [place] [address] [place] [address] Kevin Andersen PA-C [address] [facility] [address] 4 week follow up [facility] Comment on above: 4 week follow up Start: 04-12-2024 Covid-19 Vaccine () Covid-19 Vaccine () [facility] Start: 04-02-2024 End: 07-02-2024 CREATININE BLD CREATININE BLD Lab Routine Acute constipation Abnormal weight loss Constipation, unspecified constipation type Expected: 04/02/2024, Expires: 07/02/2024 [facility] Comment on above: Expected: 04/02/2024, Expires: Start: 04-02-2024 End: 04-02-2024 Patient encounter procedure 04/02/2024 9:40 AM EDT Office Visit Gastroenterology [place] [address] [place] [phone] Lindsey Stapleton PA-C [address] [facility] [place] [place] [address] Acute constipation [K59.00] Gastroenterology [place] Comment on above: Acute constipation [K59.00] Start: 12-02-2023 Behavioral Health Screening Behavioral Health Screening [facility] Start: 08-19-2023 End: 10-19-2023 CBC W Auto Differential panel - Blood CBC + DIFF Lab Routine Family history of iron deficiency Expected: 08/19/2023, Expires: 10/19/2023 [facility] Work Phone: Comment on above: Expected: 08/19/2023, Expires: 3 Start: 08-19-2023 End: 10-19-2023 Iron and Iron binding capacity panel - Serum or Plasma IRON + TIBC Lab Routine Family history of iron deficiency Expected: 08/19/2023, Expires: 10/19/2023 [facility] Work Phone: Comment on above: Expected: 08/19/2023, Expires: 3 Start: 08-02-2023 Covid-19 Vaccine () Covid-19 Vaccine () [facility] Start: 08-02-2023 Influenza vaccination [facility] Start: 07-02-2023 End: 09-01-2023 JUAN J BY IFA WITH REFLEX [facility] Work Phone: Comment on above: Expected: 07/02/2023, Expires: Start: 07-02-2023 End: 09-01-2023 C reactive protein [Mass/volume] in Serum or Plasma [facility] Work Phone: Comment on above: Expected: 07/02/2023, Expires: Start: 07-02-2023 End: 09-01-2023 Ferritin [Mass/volume] in Serum or Plasma [facility] Work Phone: Comment on above: Expected: 07/02/2023, Expires: Start: 07-02-2023 End: 09-01-2023 Iron and Iron binding capacity panel - Serum or Plasma [facility] Work Phone: Comment on above: Expected: 07/02/2023, Expires: Start: 02-07-2023 COVID-19 VACCINE (6 - Pfizer series) COVID-19 VACCINE (6 - Pfizer series) [facility] Start: 01-04-2023 End: 03-06-2023 CBC W Auto Differential panel - Blood CBC + DIFF Lab Routine RLS (restless legs syndrome) Anxiety with depression Acquired hypothyroidism Paroxysmal supraventricular tachycardia (HCC) Expected: 01/04/2023, Expires: 03/06/2023 [facility] Work Phone: Comment on above: Expected: 01/04/2023, Expires: 3 Start: 01-04-2023 End: 03-06-2023 Comprehensive metabolic 2000 panel - Serum or Plasma COMP METABOLIC PANEL Lab Routine RLS (restless legs syndrome) Anxiety with depression Acquired hypothyroidism Paroxysmal supraventricular tachycardia (HCC) Expected: 01/04/2023, Expires: 03/06/2023 [facility] Work Phone: Comment on above: Expected: 01/04/2023, Expires: 3 Start: 01-04-2023 End: 03-06-2023 Ferritin [Mass/volume] in Serum or Plasma FERRITIN BLD Lab Routine RLS (restless legs syndrome) Iron deficiency Expected: 01/04/2023, Expires: 03/06/2023 [facility] Work Phone: Comment on above: Expected: 01/04/2023, Expires: 3 Start: 01-04-2023 End: 03-06-2023 Iron and Iron binding capacity panel - Serum or Plasma IRON + TIBC Lab Routine RLS (restless legs syndrome) Iron deficiency anemia secondary to inadequate dietary iron intake Expected: 01/04/2023, Expires: 03/06/2023 [facility] Work Phone: Comment on above: Expected: 01/04/2023, Expires: 3 Start: 01-04-2023 End: 03-06-2023 Magnesium [Mass/volume] in Serum or Plasma MAGNESIUM BLD Lab Routine RLS (restless legs syndrome) Paroxysmal supraventricular tachycardia (HCC) Expected: 01/04/2023, Expires: 03/06/2023 [facility] Work Phone: Comment on above: Expected: 01/04/2023, Expires: 3 Start: 01-04-2023 End: 03-06-2023 Thyrotropin [Units/volume] in Serum or Plasma TSH BLD Lab Routine Acquired hypothyroidism Expected: 01/04/2023, Expires: 03/06/2023 [facility] Work Phone: Comment on above: Expected: 01/04/2023, Expires: 3 Start: 12-02-2022 ADVANCE DIRECTIVE DISCUSSION ADVANCE DIRECTIVE DISCUSSION [facility] Start: 12-02-2022 DEPRESSION ASSESSMENT DEPRESSION ASSESSMENT [facility] Start: 11-06-2022 End: 01-06-2023 Basic metabolic 2000 panel - Serum or Plasma [facility] Work Phone: Comment on above: Expected: 11/06/2022, Expires: 3 Start: 11-06-2022 End: 01-06-2023 CBC W Auto Differential panel - Blood [facility] Work Phone: Comment on above: Expected: 11/06/2022, Expires: 3 Start: 11-06-2022 End: 01-06-2023 Ferritin [Mass/volume] in Serum or Plasma [facility] Work Phone: Comment on above: Expected: 11/06/2022, Expires: 3 Start: 11-06-2022 End: 01-06-2023 Iron and Iron binding capacity panel - Serum or Plasma [facility] Work Phone: Comment on above: Expected: 11/06/2022, Expires: 3 Start: 11-06-2022 End: 01-06-2023 Magnesium [Mass/volume] in Serum or Plasma [facility] Work Phone: Comment on above: Expected: 11/06/2022, Expires: 3 Start: 11-06-2022 End: 01-06-2023 Natriuretic peptide.B prohormone N-Terminal [Mass/volume] in Serum or Plasma [facility] Work Phone: Comment on above: Expected: 11/06/2022, Expires: 3 Start: 11-06-2022 End: 01-06-2023 Thyrotropin [Units/volume] in Serum or Plasma [facility] Work Phone: Comment on above: Expected: 11/06/2022, Expires: 3 Start: 10-01-2022 End: 12-01-2022 CBC W Auto Differential panel - Blood [facility] Work Phone: Comment on above: Expected: 10/01/2022, Expires: 2 Start: 10-01-2022 End: 12-01-2022 Ferritin [Mass/volume] in Serum or Plasma [facility] Work Phone: Comment on above: Expected: 10/01/2022, Expires: 2 Start: 10-01-2022 End: 12-01-2022 Iron and Iron binding capacity panel - Serum or Plasma [facility] Work Phone: Comment on above: Expected: 10/01/2022, Expires: 2 Start: 09-28-2022 End: 11-28-2022 Ferritin [Mass/volume] in Serum or Plasma FERRITIN BLD Lab Routine Iron deficiency anemia, unspecified iron deficiency anemia type Expected: 09/28/2022, Expires: 11/28/2022 [facility] Work Phone: Comment on above: Expected: 09/28/2022, Expires: 2 Start: 08-29-2022 End: 10-29-2022 Iron and Iron binding capacity panel - Serum or Plasma IRON + TIBC Lab Routine Iron deficiency anemia, unspecified iron deficiency anemia type Expected: 08/29/2022, Expires: 10/29/2022 [facility] Work Phone: Comment on above: Expected: 08/29/2022, Expires: 2 Start: 08-14-2022 End: 10-14-2022 Ferritin [Mass/volume] in Serum or Plasma [facility] Work Phone: Comment on above: Expected: 08/14/2022, Expires: 2 Start: 08-14-2022 End: 10-14-2022 Iron and Iron binding capacity panel - Serum or Plasma [facility] Work Phone: Comment on above: Expected: 08/14/2022, Expires: 2 Start: 08-02-2022 Influenza vaccination INFLUENZA (#1) [facility] Start: 06-01-2022 COVID-19 VACCINE (5 - Booster for Pfizer series) COVID-19 VACCINE (5 - Booster for Pfizer series) [facility] Start: 12-02-2021 ADVANCE DIRECTIVE DISCUSSION ADVANCE DIRECTIVE DISCUSSION [facility] Start: 12-02-2021 DEPRESSION ASSESSMENT DEPRESSION ASSESSMENT [facility] Start: 08-07-2019 Annual Wellness Visit (AWV) Annual Wellness Visit (AWV) [place], [place] Start: 08-02-2019 Influenza vaccination Flu vaccine (#1) [place], [place] Start: 2010 RSV Immunization for Adults (1 - 1-dose 75+ series) RSV Immunization for Adults (1 - 1-dose 75+ series) [facility] Start: 2000 DEXA (modify frequency per FRAX score) DEXA (modify frequency per FRAX score) [place], [place] Start: 2000 Pneumococcal 65+ years Vaccine (1 of 2 - PCV13) Pneumococcal 65+ years Vaccine (1 of 2 - PCV13) [place], [place] Start: 2000 Pneumococcal 65+ years Vaccine (2 of 2 - PPSV23) Pneumococcal 65+ years Vaccine (2 of 2 - PPSV23) [place], [place] Start: 08-02-2000 Medicare Annual Wellness Visit Medicare Annual Wellness Visit [facility] Start: 1998 Annual Wellness Visit (AWV) Annual Wellness Visit (AWV) [place], [place] Start: 1995 RSV Vaccine (1 - 1-dose 60+ series) RSV Vaccine (1 - 1-dose 60+ series) [facility] Start: 1985 Shingles Vaccine (1 of 2) Shingles Vaccine (1 of 2) [place], [place] Start: 1985 SHINGRIX VACCINE (1 of 2) SHINGRIX VACCINE (1 of 2) [facility] Start: 1985 Zoster Vaccines (1 of 2) Zoster Vaccines (1 of 2) [facility] Start: 1954 DTaP/Tdap/Td vaccine (1 - Tdap) DTaP/Tdap/Td vaccine (1 - Tdap) [place], [place] Start: 1953 Depression Screening Depression Screening [facility] Start: 1953 SPIROMETRY SPIROMETRY [facility] Start: 1947 Depression Monitoring Depression Monitoring [facility] Start: 1935 Medicare Annual Wellness (AWV) Medicare Annual Wellness (AWV) [facility] Start: 1935 Screening for osteoporosis Bone Density Scan [facility] Start: 1935 Thyroid Nodule Ultrasound Thyroid Nodule Ultrasound [facility] Start: 1935 TSH testing TSH testing [place], [place] End: 05-02-2025 CT Abdomen and Pelvis W contrast IV CT ABD/PEL W IVCON Radiology Routine Acute constipation Abnormal weight loss Constipation, unspecified constipation type 1 Occurrences starting 04/02/2024 until 05/02/2025 [facility] Work Phone: Comment on above: 1 Occurrences starting 04/02/2024 until 05/02/2025 CT Abdomen and Pelvi s W contrast IV CT ABD/PEL W IVCON Radiology Routine Acute constipation Abnormal weight loss Constipation, unspecified constipation type 04/23/2024 10:23 AM EDT [facility] Work Phone: End: 10-09-2025 DBT Breast - bilateral screening KIP SCREENING W DRISS Radiology Routine Encounter for screening mammogram for malignant neoplasm of breast 1 Occurrences starting 09/10/2024 until 10/09/2025 [facility] Work Phone: Comment on above: 1 Occurrences starting 09/10/2024 until 10/09/2025 End: 02-03-2024 DXA-AXIAL SKELETON DXA-AXIAL SKELETON Radiology Routine Asymptomatic menopausal state 1 Occurrences starting 01/04/2023 until 02/03/2024 [facility] Work Phone: Comment on above: 1 Occurrences starting 01/04/2023 until 02/03/2024 End: 11-06-2023 ECG COMPLETE ECG COMPLETE ECG Routine Rapid heart rate SOB (shortness of breath) 1 Occurrences starting 11/06/2022 until 11/06/2023 [facility] Work Phone: Comment on above: 1 Occurrences starting 11/06/2022 until 11/06/2023 ECG COMPLETE ECG COMPLETE ECG 11/06/2022 12:25 PM EST [facility] End: 01-22-2024 ECG COMPLETE ECG COMPLETE ECG Routine Palpitations Lightheadedness SOB (shortness of breath) 1 Occurrences starting 01/22/2023 until 01/22/2024 [facility] Work Phone: Comment on above: 1 Occurrences starting 01/22/2023 until 01/22/2024 ECG COMPLETE ECG COMPLETE ECG 01/22/2023 12:48 PM EST [facility] ECG COMPLETE ECG COMPLETE ECG Routine Palpitations 01/17/2024 3:18 PM EST [facility] Work Phone: End: 01-17-2025 Echocardiography ECHO Cardiology Routine Palpitations Shortness of breath 1 Occurrences starting 01/17/2024 until 01/17/2025 [facility] Work Phone: Comment on above: 1 Occurrences starting 01/17/2024 until 01/17/2025 End: 08-19-2024 EMG(NEURO/NI) EMG(NEURO/NI) EMG Routine Paresthesia 1 Occurrences starting 08/19/2023 until 08/19/2024 [facility] Work Phone: Comment on above: 1 Occurrences starting 08/19/2023 until 08/19/2024 Fine needle aspiration [facility] Work Phone: Comment on above: Release Upon Ordering for 1 Occurrences starting 02/10/2025, 1 completed Helicobacter pylori [Quantitative] in Stomach by urea breath test BREATH TEST FOR HELICOBACTER PYLORI Lab Routine H. pylori infection 12/30/2024 10:17 AM EST [facility] Work Phone: HEMOCCULT SINGLE B/O HEMOCCULT S LONG B/O Lab Routine Rectal pain Ordered: 11/13/2022 [facility] Work Phone: Comment on above: Ordered: 11/13/2022 Hemoglobin.gastroint solitario nal.lower [Presence] in Stool by Immunoassay FECAL OCCULT BLOOD TEST Lab Routine Family history of iron deficiency Ordered: 08/19/2023 [facility] Work Phone: Comment on above: Ordered: 08/19/2023 End: 11-01-2024 KIP SCREENING KIP SCREENING Radiology Routine Encounter for screening mammogram for malignant neoplasm of breast 1 Occurrences starting 10/03/2023 until 11/01/2024 [facility] Work Phone: Comment on above: 1 Occurrences starting 10/03/2023 until 11/01/2024 MR Biliary ducts and Pancreatic duct WO and W contrast IV MRI PANC/JENNIFER WO/W IVCON Radiology Routine Abnormal weight loss Pancreatic lesion 06/26/2024 10:29 AM EDT [facility] Work Phone: MR Unspecified body region 3D post processing MRI 3D POST PROCESSING Radiology Routine Abnormal weight loss Pancreatic lesion 06/26/2024 10:29 AM EDT [facility] End: 02-15-2025 NM Heart Perfusion W stress and W radionuclide IV NM CARDIAC PERF STRESS/PHARM Radiology Routine Palpitations Shortness of breath 1 Occurrences starting 01/17/2024 until 02/15/2025 [facility] Work Phone: Comment on above: 1 Occurrences starting 01/17/2024 until 02/15/2025 OUTSIDE VENDOR CARDI AC OUTPATIENT EXTENDED RHYTHM RECORDING (WITHOUT TELEMETRY) OUTSIDE VENDOR CARDIAC OUTPATIENT EXTENDED RHYTHM RECORDING (WITHOUT TELEMETRY) Holter Routine Palpitations Lightheadedness SOB (shortness of breath) Ordered: 01/22/2023 [facility] Work Phone: Comment on above: Ordered: 01/22/2023 End: 12-13-2023 Radex spine lumbosacral 2/3 views XR LUMBAR GENERAL 3V AP/LAT/L5-S1 Radiology Routine Acute midline low back pain without sciatica 1 Occurrences starting 11/13/2022 until 12/13/2023 [facility] Work Phone: Comment on above: 1 Occurrences starting 11/13/2022 until 12/13/2023 Radex spine lumbosac ral 2/3 views XR LUMBAR GENERAL 3V AP/LAT/L5-S1 Radiology Routine Acute midline low back pain without sciatica 11/13/2022 4:35 PM EST [facility] Work Phone: End: 06-26-2024 XR ABDOMEN 1V SUPINE XR ABDOMEN 1V SUPINE Radiology Routine Pencilling of stools 1 Occurrences starting 05/28/2023 until 06/26/2024 [facility] Work Phone: Comment on above: 1 Occurrences starting 05/28/2023 until 06/26/2024 XR ABDOMEN 1V SUPINE XR ABDOMEN 1V SUPINE Radiology Routine Pencilling of stools 05/28/2023 12:39 PM EDT [facility] Work Phone: End: 04-23-2025 XR Abdomen Supine and Upright XR ABDOMEN 1V SUPINE Radiology Routine Acute constipation 1 Occurrences starting 03/24/2024 until 04/23/2025 [facility] Work Phone: Comment on above: 1 Occurrences starting 03/24/2024 until 04/23/2025 XR Abdomen Supine an d Upright XR ABDOMEN 1V SUPINE Radiology Routine Acute constipation 03/24/2024 12:22 PM EDT [facility] End: 09-16-2019 XR LUMBAR SPINE (2-3 VIEWS) XR LUMBAR SPINE (2-3 VIEWS) Imaging Routine Once for 1 Occurrences starting 09/16/2019 until 09/16/2019 [place] Comment on above: Once for 1 Occurrences starting 09/16/20 19 until 09/16/2019 XR LUMBAR SPINE (2-3 VIEWS) XR LUMBAR SPINE (2-3 VIEWS) Imaging Routine 09/16/2019 1:45 PM EDT [facility] Immunizations Immunization Date Immunization Notes Care Provider Annette shell 10-13-2024 COVID-19 vaccine, ag e 12+ yr (Metastorm COMIRNATJDCPhosphate) Anitra Suppan COMPUTER SYSTEM SPECIALIST.[facility] Work Phone: [facility] 09-01-2024 influenza, high dose seasonal, preservative-free Anitra Suppan COMPUTER SYSTEM SPECIALIST.AUTOMOBILE RENTAL [employer]ENT Work Phone: [facility] 03-17-2024 TD(adult) unspecifie d formulation Shoshana Perry COMPUTER SYSTEM SPECIALIST.AUTOMOBILE RENTAL AGENT Work Phone: [facility] Work Phone: 03-17-2024 tetanus and diphther ia toxoids, adsorbed, preservative free, for adult use (5 Lf of tetanus toxoid and 2 Lf of diphtheria toxoid) Shoshana Perry COMPUTER SYSTEM SPECIALIST.AUTOMOBILE RENTAL AGENT Work Phone: [facility] 12-18-2023 respiratory syncytia l virus (RSV) vaccine, bivalent (ABRYSVO) Graham Flores MD Work Phone: [facility] 09-03-2023 influenza (HD-IIV4) vaccine, age 65+ yr, high dose, quadrivalent, PF (FLUZONE HIGH-DOSE) NA Ganesh LU Work Phone: [facility] 09-03-2023 influenza virus vaccine, unspecified formulation Lindsey Stapleton PA-C Work Phone: [facility] 09-11-2022 influenza (HD-IIV4) vaccine, age 65+ yr, high dose, quadrivalent, PF (FLUZONE HIGH-DOSE) NA Andersen PA-C Work Phone: [facility] 09-11-2022 influenza, high dose seasonal, preservative-free NA Andersen PA-C Work Phone: [facility] 09-11-2022 influenza virus vaccine, unspecified formulation NA Andersen PA-C Work Phone: [facility] 04-06-2022 COVID-19 vaccine, ag e 12+ yr (PFIZER-BIONTECH - HODGES TOP) Megan Saab AUTOMOTIVE MECHANIC Work Phone: [facility] 08-30-2021 influenza (HD-IIV4) vaccine, age 65+ yr, high dose, quadrivalent, PF (FLUZONE HIGH-DOSE) NA Andersen PA-C Work Phone: [facility] 01-19-2021 COVID-19 vaccine, ag e 12+ yr (PFIZER-BIONTECH - PURPLE TOP) Megan Saab AUTOMOTIVE MECHANIC Work Phone: [facility] 12-29-2020 COVID-19 vaccine, ag e 12+ yr (PFIZER-BIONTECH - PURPLE TOP) Megan Saab AUTOMOTIVE MECHANIC Work Phone: [facility] Work Phone: 08-30-2020 influenza (HD-IIV4) vaccine, age 65+ yr, high dose, quadrivalent, PF (FLUZONE HIGH-DOSE) NA Andersen PA-C Work Phone: [facility] 08-30-2020 influenza, high dose seasonal, preservative-free Megan Saab AUTOMOTIVE MECHANIC Work Phone: [facility] 09-20-2019 influenza, high dose seasonal, preservative-free Megan Saab AUTOMOTIVE MECHANIC Work Phone: [facility] 09-20-2019 pneumococcal polysaccharide vaccine, 23 valent Megan Saab AUTOMOTIVE MECHANIC Work Phone: [facility] 09-11-2018 influenza, high dose seasonal, preservative-free Megan Saab AUTOMOTIVE MECHANIC Work Phone: [facility] 09-11-2018 pneumococcal conjuga te vaccine, 13 valent Megan Saab AUTOMOTIVE MECHANIC Work Phone: [facility] 08-15-2017 influenza, high dose seasonal, preservative-free Megan Saab AUTOMOTIVE MECHANIC Work Phone: [facility] 10-14-2016 influenza, high dose seasonal, preservative-free Megan Saab AUTOMOTIVE MECHANIC Work Phone: [facility] 12-23-2015 pneumococcal conjuga te vaccine, 13 valent Megan Saab AUTOMOTIVE MECHANIC Work Phone: [facility] 12-23-2015 tetanus toxoid, redu leticia diphtheria toxoid, and acellular pertussis vaccine, adsorbed Megan Saab AUTOMOTIVE MECHANIC Work Phone: [facility] 09-01-2015 influenza, high dose seasonal, preservative-free NA Andersen PA-C Work Phone: [facility] 07-10-2015 influenza, high dose seasonal, preservative-free Megan Saab AUTOMOTIVE MECHANIC Work Phone: [facility] Work Phone: 09-25-2013 influenza, seasonal, injectable NA Andersen PA-C Work Phone: [facility] 10-18-2008 influenza virus vaccine, whole virus NA Andersen PA-C Work Phone: [facility] 2000 pneumococcal polysaccharide vaccine, 23 valent Megan Saab AUTOMOTIVE MECHANIC Work Phone: [facility] Payers Date Payer Category Payer Self-pay [id number] 2019 Other [employer] [place] [id number] 2019 Private Health Insurance [place] [id number] 2019-Present [phone] [place] [address] Indemnity [id number] 2019 Private Health Insurance [id number] 2019 Private Health Insurance [facility] [id number] 2019 Medicare MEDICARE MEDICAR E PART A AND B xxxxxxxxxxx 2019-Present [phone] [place] [address] xxxxxxxxxxx [id number] 2019 Private Health Insurance [employer] [place] CO [employer] [place] COMP xxxxxxxxx 2019-Present [address] [place] [address] xxxxxxxxx [id number] 2000 Medicare MEDICARE MEDICAR E A AND B [id number] 2000-Present [phone] [place] [address] Medicare [id number] 2000 Medicare [id number] 2000 Medicare [id number] 1935 Unknown [id number] 2.16.840.1.539386.3.579.2 .278 1935 Unknown [id number] 2.16.840.1.018498.3.579.2 .278 1935 Unknown [id number] 2.16.840.1.737960.3.579.2 .278 1935 Unknown [id number] 2.16.840.1.292095.3.579.2 .278 1935 Unknown [id number] 2.16.840.1.061644.3.579.2 .278 1935 Unknown [id number] 2.840.1.417153.3.579.2 .278 1935 Unknown [id number] 2.16.840.1.432436.3.579.2 .278 1935 Unknown [id number] 2.16.840.1.057674.3.579.2 .278 1935 Unknown [id number] 2.16.840.1.638339.3.579.2 .278 1935 Unknown [id number] 2.840.1.516210.3.579.2 .278 1935 Unknown [id number] 2.16.840.1.596889.3.579.2 .278 1935 Unknown [id number] 2.16.840.1.996705.3.579.2 .278 1935 Unknown [id number] 2.16.840.1.283738.3.579.2 .278 Medicare [id number] Private Health Insurance [id number] Unknown [id number] 2.16840.1.554493.3.579.2 .462 Unknown [id number] 2.16.840.1.009129.3.579.2 .462 Unknown [id number] 2.16.840.1.890485.3.579.2 .462 Unknown [id number] 2.16.840.1.015122.3.579.2 .462 Unknown [id number] 2.16.840.1.137505.3.579.2 .462 Unknown [id number] 2.16.840.1.211476.3.579.2 .462 Unknown [id number] 2.16.840.1.921107.3.579.2 .462 Unknown [id number] 2.16.840.1.430747.3.579.2 .462 Unknown [id number] 2.16.840.1.295367.3.579.2 .462 Unknown [id number] 2.16.840.1.924821.3.579.2 .462 Unknown [id number] 2.16.840.1.103607.3.579.2 .462 Unknown [id number] 2.16.840.1.184117.3.579.2 .462 Unknown [id number] 2.16.840.1.342984.3.579.2 .462 Unknown [id number] 2.16.840.1.413145.3.579.2 .462 Unknown [id number] 2.16840.1.342448.3.579.2 .462 Unknown [id number] 2.16840.1.728094.3.579.2 .462 Unknown [id number] 2.16840.1.773935.3.579.2 .462 Unknown [id number] 2.16840.1.651985.3.579.2 .462 Social History Date Type Detail Facility Start: 08-07-2019 End: 05-04-2025 Tobacco smoking status RUST Never smoker [facility] Work Phone: Start: 08-07-2019 End: 05-28-2023 Alcohol intake Never [facility] Start: 08-07-2019 End: 11-02-2022 History SDOH [facility] Start: 1935 [facility] Start: 01-31-2022 End: 05-04-2025 Alcohol intake Current non-drinker of alcohol (finding) [facility] Start: 06-14-2021 End: 11-02-2022 History SDOH Social Connections Phone 3 [facility] Start: 06-14-2021 End: 11-02-2022 History SDOH Social Connections Membership 2 [facility] Start: 06-14-2021 End: 11-02-2022 History SDOH Physical Activity DPW 0 [facility] Start: 06-14-2021 End: 11-02-2022 History SDOH Stress 5 [facility] Start: 06-14-2021 Education 12 [facility] Start: 1935 Sex Assigned At Female C [facility] Work Phone: Start: 03-03-2021 End: 10-01-2022 Exposure to SARS-CoV-2 (event) Not sure [facility] Work Phone: Start: 05-04-2013 End: 05-04-2025 Tobacco use and exposure Smokeless tobacco non-user [facility] Start: 07-30-2022 End: 08-09-2022 Exposure to SARS-CoV-2 (event) Unable to assess [facility] Work Phone: Start: 10-01-2022 End: 11-02-2022 History SDOH Social Connections Phone 98 [facility] Start: 11-02-2022 History SDOH Stress 4 [facility] Start: 09-26-2020 Tobacco smoking stat us AZIS Unknown if ever smoked [facility] Work Phone: Start: 05-04-2014 None [facility] Work Phone: Start: 05-04-2014 Spouse/ Signif icant Other [facility] Work Phone: Start: 09-19-2020 Non-smoker [facility] Work Phone: Start: 11-02-2022 End: 05-28-2023 History of Social function [facility] In a typical week, h ow many times do you talk on the telephone with family, friends, or neighbors? Patient refused [facility] Are you now , , , , never or living with a partner? [facility] How often to you hav e a drink containing alcohol? Never [facility] Do you feel stress - tense, restless, nervous, or anxious, or unable to sleep at night because your mind is troubled all the time - these days [OSQ] Rather much [facility] (I/We) worried wheth er (my/our) food would run out before (I/we) got money to buy more. Never true [facility] Start: 04-14-2020 Gender identity Identifies as female gender (finding) [facility] Work Phone: Start: 04-14-2020 Sexual orientation Heterosexual (fin alek) [facility] Work Phone: Do you feel stress - tense, restless, nervous, or anxious, or unable to sleep at night because your mind is troubled all the time - these days [OSQ] To some extent [facility] Do you feel stress - tense, restless, nervous, or anxious, or unable to sleep at night because your mind is troubled all the time - these days [OSQ] Very much [facility] Start: 02-10-2025 End: 03-16-2025 Alcoholic beverage intake Lifetime non-drinker (finding) [facility] Start: 07-02-2022 Sex Female (finding) [facility] NEGATED: Highlighted rowStart: NINF History of tobacco use Passive smoker [facility] Medical Equipment Procedure Code Equipment Code Equipment Origin al Text Equipment Identifier Dates Repair, hernia, ventral or umbilical, laparoscopic MESH,VENTLEX ST ,LG 8CM FDA Start: 09-26-2020 Repair, hernia, ventral or umbilical, laparoscopic TACKER,SECURE STRAP FDA Start: 09-26-2020 FESS (functional endoscopic sinus surgery) SEALANT,FLOSEAL HEMOSTATIC 5ML FDA Start: 05-15-2019 Functional Status Date Assessment Result Facility 06-22-2014 Are you deaf, or do you have serious difficulty hearing No 06/22/2014 10:26 AM EDT Pita Dumont MA [facility] 06-22-2014 Are you blind, or do you have serious difficulty seeing, even when wearing glasses No 06/22/2014 10:26 AM EDT Pita Dumont MA [facility] 06-22-2014 Do you have serious difficulty walking or climbing stairs No 06/22/2014 10:26 AM EDT Pita Dumont MA [facility] 06-22-2014 Do you have difficul ty dressing or bathing No 06/22/2014 10:26 AM EDT Pita Dumont MA [facility] 06-22-2014 Because of a physica l, mental, or emotional condition, do you have difficulty doing errands alone such as visiting a physician's office or shopping No 06/22/2014 10:26 AM EDT Pita Dumont MA [facility] Mental Status Date Assessment Result Facility 06-22-2014 Because of a physica l, mental, or emotional condition, do you have serious difficulty concentrating, remembering, or making decisions No 06/22/2014 10:26 AM EDT Pita Dumont MA [facility] Clinical Notes 03-20-2018 to 05-13-2025 Telephone Encounter - Anitra Mancera APRN.[facility] - 05/13/2025 5:22 PM EDTTelephone Encounter - Anitra Mancera APRN.[employer]ENTAL [employer] - 05/13/2025 5:22 PM Tyler Troncoso MD - 03/16/2025 10:30 AM EDT Note Date & Type Note Facility 05-13-2025 Telephone encounter Note Patient saw esthetician makeup artist/oncologist at [facility] on May 12, 2025 Dr. Vigil for follow-up on her pancreatic mass. In December 2024 mass was 2.8 cm mass with ill-defined margins in the body of the pancreas. On February 10, 2025 the mass was 3.6 cm but the head of the pancreas with invasion into the portal vein S MV and SMA which was staged as T4 by endoscopic standard. No abdominal lymphadenopathy or evidence of liver metastasis. 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 She was referred for further management. PET scan done March 02, 2025 showed hypermetabolic mass in the head of the pancreas. CA 19-9 was 602 on February 24. Surgical oncology March 16, 2025. Patient elected palliative radiation therapy. She received 2500 small CGY delivered in 5 fractions with simultaneous boost to the GTV. Abdominal pain has resolved. Has loose stools 6-7 times a day, losing weight, eating well. Anxious. Diagnosis: Malignant neoplasm head of pancreas Cancer related pain Pancreatic insufficiency. CBC with differential, CMP, LDH, carbohydrate AG 19-9 Creon [id number] unit Creon 3 times daily with 1 refill [facility] 05-13-2025 Miscellaneous Notes Patient saw esthetician makeup artist/oncologist at [facility] on May 12, 2025 Dr. Vigil for follow-up on her pancreatic mass. In December 2024 mass was 2.8 cm mass with ill-defined margins in the body of the pancreas. On February 10, 2025 the mass was 3.6 cm but the head of the pancreas with invasion into the portal vein S MV and SMA which was staged as T4 by endoscopic standard. No abdominal lymphadenopathy or evidence of liver metastasis. 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 She was referred for further management. PET scan done March 02, 2025 showed hypermetabolic mass in the head of the pancreas. CA 19-9 was 602 on February 24. Surgical oncology March 16, 2025. Patient elected palliative radiation therapy. She received 2500 small CGY delivered in 5 fractions with simultaneous boost to the GTV. Abdominal pain has resolved. Has loose stools 6-7 times a day, losing weight, eating well. Anxious. Diagnosis: Malignant neoplasm head of pancreas Cancer related pain Pancreatic insufficiency. CBC with differential, CMP, LDH, carbohydrate AG 19-9 Creon [id number] unit Creon 3 times daily with 1 refill documented in this encounter [facility] 05-11-2025 Telephone encounter Note Patient saw pulmonary PATIENT CARE TECHNICIAN. She underwent a pulmonary function test: FEV1/FVC 83% of predicted, FEF % of predicted, FVC 96% of predicted reflecting mild obstruction. Patient was given levalbuterol prescription. [facility] 05-11-2025 Miscellaneous Notes Patient saw pulmonary PATIENT CARE TECHNICIAN. She underwent a pulmonary function test: FEV1/FVC 83% of predicted, FEF % of predicted, FVC 96% of predicted reflecting mild obstruction. Patient was given levalbuterol prescription. documented in this encounter [facility] 05-04-2025 Note HNO ID: [id number] Author: DASIA FUNES MD Service: ? Author Type: Physician Type: Progress Notes Filed: 05/04/2025 16:37 Note Text: [facility] Initial Clinic Visit Note CONSULTING PROVIDER: Anitra Mancera APRN. CNP My final recommendations will be communicated back to the requesting provider by way of shared Medical record or a letter via [place] mail Subjective: Sachi Grace is a 89 year old female here to establish care for hypothyroidism. She is accompanied by her today Also reports to have a hx of thyroid nodules - Diagnosed approximately 25 years ago. How hypothyroidism was discovered: 25 years ago - Managed by Dr. Angulo at [facility] Endocrinology since diagnosis. - Current medication dosage has been consistent for over a year. Current treatment: 75 mcg of levothyroxine daily Prior treatment: does not remember General symptoms: - Recent weight loss of 17 lbs attributed to pancreatic cancer (as per chart review, ductal adenocarcinoma of pancreas). She underwent radiation for this, surgery not feasible, and no chemotherapy recommended - No recent changes in appetite or bowel habits Reports she might not be around for long but it is difficult for her to see Dr. Angulo due to distance and hence is transferring care - No known family history of thyroid issues. REVIEW OF SYSTEMS: GENERAL:No weight loss, malaise or fevers HEENT:Negative for frequent or significant headaches, No changes in hearing or vision, no nose bleeds or other nasal problems NECK:Negative for lumps, goiter, pain and significant neck swelling RESPIRATORY: Negative for cough, hemoptysis, wheezing or shortness of breath CARDIOVASCULAR: Negative for chest pain, leg swelling or palpitations GASTROINTESTINAL: No nausea, vomiting, or persistent diarrhea GENITOURINARY: no dysuria, Polyuria, no changes in urinary frequency MUSCULOSKELETAL:no muscle aches, arthralgia NEUROLOGIC: no numbness, tingling, no Paresthesias, no headaches SKIN:Negative for lesions, rash, and itching PSYCHIATRIC: Negative for sleep disturbance, mood disorder and recent psychosocial stressors. HEMATOLOGIC/LYMPHATIC/IMMUNOLOGI C:Negative for prolonged bleeding, bruising easily ENDOCRINE: Negative for cold or heat intolerance or goiter ALLERGIES: ALLERGIES Allergen Reactions Vicodin [Hydrocodon* GI Upset Buspirone Intolerance Anxious, jittery, felt worse, RLS worse. Cocamidopropyl Beta* Rash itching, rash Codeine GI Upset Pantoprazole GI Upset Bloating, constipation, increase in abd pain Percocet [Oxycodone* GI Upset Sulfa (Sulfonamide * Hives, Swelling lips swelled up Tetracycline GI Upset MEDICATIONS: Current Outpatient Medications on File Prior to Visit Medication Sig escitalopram oxalate (LEXAPRO) 5 mg tablet Take 2.5 mg by mouth once daily. levothyroxine (SYNTHROID) 75 mcg tablet Take 75 mcg by mouth daily before breakfast. ondansetron (ZOFRAN) 4 mg tablet Take 1 tablet by mouth every 8 hours as needed for nausea/vomiting. propranolol (INDERAL) 10 mg tablet Take 1 tablet by mouth three times a day as needed. For palpitations Vit B Complex 100 Combo No.2 (B-100 COMPLEX) 100 mg TbER Take 1 tablet by mouth once daily. MEDICATION, NON-DATABASE CBD oil fluticasone propionate (ARMONAIR DIGIHALER) 232 mcg/actuation inhaler Inhale 1 Puff as instructed two times a day. levalbuterol tartrate HFA 45 mcg/actuation inhaler Inhale 1-2 Puffs as instructed every 4 hours as needed for wheezing/shortness of breath. Cholecalciferol, Vitamin D3, (VITAMIN D) 25 mcg (1,000 unit) cap Take 1,000 Units by mouth once daily. clonazePAM (KLONOPIN) 0.5 mg tablet Take 0.5 mg by mouth at bedtime as needed. Dr Dupree vit A,C,M-Pdnq-Chxtjd (PRESERVISION AREDS) 7,160-113-100 dlai-jo-sawj tab Take 1 tablet by mouth once daily. ACETAMINOPHEN 500 MG TAB Take 1,000 mg by mouth every 8 hours as needed for pain. rOPINIRole (REQUIP) 0.5 mg tablet Take 1.5 tablets by mouth daily at bedtime. levothyroxine (SYNTHROID) 50 mcg tablet Take 50 mcg by mouth. Take 50 mcg on Saturday, and 75 mcg all other days of the week, per ENDO (Patient not taking: Reported on 05/04/2025) No current facility-administered medications on file prior to visit. 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 Dupree-every 6 months Gout, unspecified late great toe, several episodes Hypothyroidism, unspecified Multinodular goiter Dr Boateng Osteoarthritis of both knees Other and unspecified hyperlipidemia diet therapy as of 03/08 Paroxysmal s (more content not included)... [facility] 03-31-2025 Note HNO ID: [id number] Author: SHIRA ORDONEZ APRN.[employer] Service: ? Author Type: Nurse Practitioner Type: Progress Notes Filed: 03/31/2025 13:54 Note Text: 03/31/2025 Patient presents with: Pain, Back: Low back pain x2 weeks, recently diagnosed with pancreatic cancer SUBJECTIVE: This is a 89 year old that is here today for Above Complaints. 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 Dupree-every 6 months Gout, unspecified late great toe, several episodes Hypothyroidism, unspecified Multinodular goiter Dr Boateng Osteoarthritis of both knees Other and unspecified hyperlipidemia diet therapy as of 03/08 Paroxysmal supraventricular tachycardia (HCC) ablation 01/2002 ( in [place], [facility]), follows with Dr. Moreno (prn only) RLS (restless legs syndrome) Tinnitus, unspecified ear Unspecified constipation ALLERGIES Vicodin [Hydrocodone-Acetaminophen], Buspirone, Cocamidopropyl Betaine, Codeine, Pantoprazole, Percocet [Oxycodone-Acetaminophen], Sulfa (Sulfonamide Antibiotics), and Tetracycline MEDICATIONS Current Outpatient Medications Medication Sig ondansetron (ZOFRAN) 4 mg tablet Take 1 tablet by mouth every 8 hours as needed for nausea/vomiting. propranolol (INDERAL) 10 mg tablet Take 1 tablet by mouth three times a day as needed. For palpitations rOPINIRole (REQUIP) 0.5 mg tablet Take 1.5 tablets by mouth daily at bedtime. Vit B Complex 100 Combo No.2 (B-100 COMPLEX) 100 mg TbER Take 1 tablet by mouth once daily. levothyroxine (SYNTHROID) 50 mcg tablet Take 50 mcg by mouth. Take 50 mcg on Saturday, and 75 mcg all other days of the week, per ENDO MEDICATION, NON-DATABASE CBD oil fluticasone propionate (ARMONAIR DIGIHALER) 232 mcg/actuation inhaler Inhale 1 Puff as instructed two times a day. levalbuterol tartrate HFA 45 mcg/actuation inhaler Inhale 1-2 Puffs as instructed every 4 hours as needed for wheezing/shortness of breath. Cholecalciferol, Vitamin D3, (VITAMIN D) 25 mcg (1,000 unit) cap Take 1,000 Units by mouth once daily. clonazePAM (KLONOPIN) 0.5 mg tablet Take 0.5 mg by mouth at bedtime as needed. Dr Dupree vit A,C,D-Ozoo-Dzfiry (PRESERVISION AREDS) 7,160-113-100 idax-kc-sswl tab Take by mouth. ACETAMINOPHEN 500 MG TAB Take one(1) tablet every four(4) to six(6) hours as needed for pain. No current facility-administered medications for this visit. Medications and allergies reviewed by this provider. SOCIAL HISTORY Social History Tobacco Use Smoking status: Never Smokeless tobacco: Never Vaping Use Vaping status: Never Used Substance Use Topics Alcohol use: No Drug use: No REVIEW OF SYSTEMS All other reviewed and negative other than HPI. OBJECTIVE: BP 98/66 Pulse 77 Resp 18 Wt 55.1 kg (121 lb 6.4 oz) BMI 23.71 kg/m? . Vital signs reviewed by this provider. APPEARANCE Well appearing, alert, in no acute distress, well-hydrated, well nourished. EYES PERRLA, conjunctiva and sclera normal. BACK: Normal exam, no pain to palpation, good flexion and extension, negative SLR test. No changes in skin NEURO Awake, alert and oriented x 3, Reflexes symmetrical, Normal gait, No involuntary motions., and negative findings: muscle tone normal, muscle strength normal, sensation to light touch and pinprick normal, reflexes normal and symmetric, plantar response downgoing bilaterally SKIN Skin color, texture, turgor normal, no suspicious rashes or lesions to expose skin Shingrix Vaccine(1 of 2) Never done Advance Directive Discussion due on 12/02/2024 Covid-19 Vaccine( season) due on 04/12/2025 Depression Screening due on 03/15/2026 Diabetes Screening due on 03/18/2028 DTaP,Tdap,Td Vaccine(3 - Td or Tdap) due on 03/17/2034 Influenza Vaccine Completed RSV Vaccine Completed Pneumococcal Vaccine: 50+ Completed Bone Density Screening Addressed ASSESSMENT/PLAN: 1. Acute bilateral low back pain without sciatica - ICD9: 724.2, 338.19, ICD10: M54.50 - possible related to pancreatic cancer - no red flag symptoms or exam finds - red flag symptoms discussed, verbalizes understanding - she can a whole tab of percocet to see of that helps, discussed max dose of tylenol in a day, verbalizes understanding - also discussed not t (more content not included)... [facility] 03-31-2025 History of Presen t illness Narrative 03/31/2025 Patient presents with: Pain, Back: Low back pain x2 weeks, recently diagnosed with pancreatic cancer SUBJECTIVE: This is a 89 year old that is here today for Above Complaints. 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 Dupree-every 6 months Gout, unspecified late great toe, several episodes Hypothyroidism, unspecified Multinodular goiter Dr Boateng Osteoarthritis of both knees Other and unspecified hyperlipidemia diet therapy as of 03/08 Paroxysmal supraventricular tachycardia (HCC) ablation 01/2002 ( in [place], [facility]), follows with Dr. Moreno (prn only) RLS (restless legs syndrome) Tinnitus, unspecified ear Unspecified constipation ALLERGIES Vicodin [Hydrocodone-Acetaminophen], Buspirone, Cocamidopropyl Betaine, Codeine, Pantoprazole, Percocet [Oxycodone-Acetaminophen], Sulfa (Sulfonamide Antibiotics), and Tetracycline MEDICATIONS Current Outpatient Medications Medication Sig ondansetron (ZOFRAN) 4 mg tablet Take 1 tablet by mouth every 8 hours as needed for nausea/vomiting. propranolol (INDERAL) 10 mg tablet Take 1 tablet by mouth three times a day as needed. For palpitations rOPINIRole (REQUIP) 0.5 mg tablet Take 1.5 tablets by mouth daily at bedtime. Vit B Complex 100 Combo No.2 (B-100 COMPLEX) 100 mg TbER Take 1 tablet by mouth once daily. levothyroxine (SYNTHROID) 50 mcg tablet Take 50 mcg by mouth. Take 50 mcg on Saturday, and 75 mcg all other days of the week, per ENDO MEDICATION, NON-DATABASE CBD oil fluticasone propionate (ARMONAIR DIGIHALER) 232 mcg/actuation inhaler Inhale 1 Puff as instructed two times a day. levalbuterol tartrate HFA 45 mcg/actuation inhaler Inhale 1-2 Puffs as instructed every 4 hours as needed for wheezing/shortness of breath. Cholecalciferol, Vitamin D3, (VITAMIN D) 25 mcg (1,000 unit) cap Take 1,000 Units by mouth once daily. clonazePAM (KLONOPIN) 0.5 mg tablet Take 0.5 mg by mouth at bedtime as needed. Dr Dupree vit A,C,E-Xxgt-Pdhtew (PRESERVISION AREDS) 7,160-113-100 kxft-im-tcwr tab Take by mouth. ACETAMINOPHEN 500 MG TAB Take one(1) tablet every four(4) to six(6) hours as needed for pain. No current facility-administered medications for this visit. Medications and allergies reviewed by this provider. SOCIAL HISTORY Social History Tobacco Use Smoking status: Never Smokeless tobacco: Never Vaping Use Vaping status: Never Used Substance Use Topics Alcohol use: No Drug use: No REVIEW OF SYSTEMS All other reviewed and negative other than HPI. OBJECTIVE: BP 98/66 Pulse 77 Resp 18 Wt 55.1 kg (121 lb 6.4 oz) BMI 23.71 kg/m . Vital signs reviewed by this provider. APPEARANCE Well appearing, alert, in no acute distress, well-hydrated, well nourished. EYES PERRLA, conjunctiva and sclera normal. BACK: Normal exam, no pain to palpation, good flexion and extension, negative SLR test. No changes in skin NEURO Awake, alert and oriented x 3, Reflexes symmetrical, Normal gait, No involuntary motions., and negative findings: muscle tone normal, muscle strength normal, sensation to light touch and pinprick normal, reflexes normal and symmetric, plantar response downgoing bilaterally SKIN Skin color, texture, turgor normal, no suspicious rashes or lesions to expose skin Shingrix Vaccine(1 of 2) Never done Advance Directive Discussion due on 12/02/2024 Covid-19 Vaccine() due on 04/12/2025 Depression Screening due on 03/15/2026 Diabetes Screening due on 03/18/2028 DTaP,Tdap,Td Vaccine(3 - Td or Tdap) due on 03/17/2034 Influenza Vaccine Completed RSV Vaccine Completed Pneumococcal Vaccine: 50+ Completed Bone Density Screening Addressed ASSESSMENT/PLAN: 1. Acute bilateral low back pain without sciatica - ICD9: 724.2, 338.19, ICD10: M54.50 - possible related to pancreatic cancer - no red flag symptoms or exam finds - red flag symptoms discussed, verbalizes understanding - she can a whole tab of percocet to see of that helps, discussed max dose of tylenol in a day, verbalizes understanding - also discussed not to take percocet with klonopin, verbalizes understanding - discussed possibly trying PT- she declines at this time - follow-up with PCP care team as needed Shira Ordonez APRN.[employer] Prescription instructions reviewed with patient as applicable. Patient advised if symptoms do not improve or if symptoms worsen sooner, to contact their primary care physician. Potential red flag symptoms discussed with the patient. Reviewed appropriate action plan to take if red flag symptoms occur. Patient agreeable to treatment plan. Medical Decision Making: Problems: Moderate: New problem with uncertain prognosis Risk: Moderate: Moderate risk from testing/treatment Medical Decision Making Level: 4 - Moderate documented in this encounter [facility] 03-20-2025 Telephone encounter Note Patient informed and verbalized understanding. [employer] Cerv[employer] MA [facility] 03-20-2025 Miscellaneous Notes Patient informed and verbalized understanding. [employer]erv[employer] MA Please let patient know her labs show a slightly low sodium level but she her labs are other navarrete normal. documented in this encounter [facility] 03-19-2025 Telephone encounter Note Please let patient know her labs show a slightly low sodium level but she her labs are other navarrete normal. T [facility] Work Phone: 03-18-2025 Telephone encounter Note Patient was seen by hematology for pancreatic mass. Presented with abdominal pain to [facility], CT of the abdomen and pelvis done December 10, 2024 showed 2.8 cm mass ill-defined margins in the body of the pancreas. She was seen by GI on January 01, 2025 and referred for EUS and biopsy. That was done at [facility] on February 10, 2025 showed a 3.6 cm pancreatic head mass with invasion into the portal vein, S MV and SMA which was staged to T4 by endoscopic standard, no abdominal lymphadenopathy or evidence of liver metastasis. Pathology of the head of the pancreas fine-needle aspiration positive for malignant cells. Cellular features consistent with ductal adenocarcinoma. Referred for management of pancreatic cancer. PET and CT on March 02 showed hypermetabolic mass in the head of the pancreas CA 19-9 was 602 on February 24. Patient saw surgical oncologist on March 16 and comes for follow-up. Getting nausea and bloating. 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 CA 19-9 was 602. Neoadjuvant chemotherapy followed surgery/radiation combined with chemotherapy and radiation or chemotherapy. After meeting with the surgeon she has decided to not do surgery or chemotherapy and wants palliative radiation therapy. Patient will continue Percocet 5 mg every 6 hours as needed and to start Zofran as needed. CHARBEL avery today. T [facility] 03-18-2025 Miscellaneous Notes Patient was seen by hematology for pancreatic mass. Presented with abdominal pain to [facility], CT of the abdomen and pelvis done December 10, 2024 showed 2.8 cm mass ill-defined margins in the body of the pancreas. She was seen by GI on January 01, 2025 and referred for EUS and biopsy. That was done at [facility] on February 10, 2025 showed a 3.6 cm pancreatic head mass with invasion into the portal vein, S MV and SMA which was staged to T4 by endoscopic standard, no abdominal lymphadenopathy or evidence of liver metastasis. Pathology of the head of the pancreas fine-needle aspiration positive for malignant cells. Cellular features consistent with ductal adenocarcinoma. Referred for management of pancreatic cancer. PET and CT on March 02 showed hypermetabolic mass in the head of the pancreas CA 19-9 was 602 on February 24. Patient saw surgical oncologist on March 16 and comes for follow-up. Getting nausea and bloating. 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 CA 19-9 was 602. Neoadjuvant chemotherapy followed surgery/radiation combined with chemotherapy and radiation or chemotherapy. After meeting with the surgeon she has decided to not do surgery or chemotherapy and wants palliative radiation therapy. Patient will continue Percocet 5 mg every 6 hours as needed and to start Zofran as needed. CHARBEL avery today. documented in this encounter [facility] 03-18-2025 Note HNO ID: [id number] Author: DAWIT PHELAN APRN.RUSTY Service: ? Author Type: Nurse Practitioner Type: Progress Notes Filed: 03/18/2025 14:41 Note Text: Chief Complaint Patient presents with: Follow Up HPI Sachi Grace is a 89 year old female who presents here today for Above Complaints.. Patient presents for continued dry mouth, back pain worse at night. Patient was diagnosed with UTI and started on macrobid 03/15. Patient was also recently diagnosed with pancreatic cancer and will be starting radiation. Also reports leg cramps during the night. Past medical history, appointments, medications, allergies reviewed. 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 Dupree-every 6 months Gout, unspecified late great toe, several episodes Hypothyroidism, unspecified Multinodular goiter Dr Boateng Osteoarthritis of both knees Other and unspecified hyperlipidemia diet therapy as of 03/08 Paroxysmal supraventricular tachycardia (HCC) ablation 01/2002 ( in [place], [facility]), follows with Dr. Moreno (prn only) RLS (restless legs syndrome) Tinnitus, unspecified ear Unspecified constipation Previous Surgical History PAST SURGICAL HISTORY Procedure Laterality Date APPENDECTOMY ARTHRP KNE CONDYLEANDPLATU MEDIALANDLAT COMPARTMENTS 2012 Knee replacement, total bilateral CARPAL TUNNEL 2005 bilateral COLONOSCOPY FLX DX W/COLLJ SPEC WHEN PFRMD 12/14/2002 Colonoscopy COLONOSCOPY FLX DX W/COLLJ SPEC WHEN PFRMD 06/10/2007 COLONOSCOPY FLX DX W/COLLJ SPEC WHEN PFRMD 08/04/2013 Colonoscopy COLONOSCOPY FLX DX W/COLLJ SPEC WHEN PFRMD 10/14/2018 [facility]-Repeat 5 years COLONOSCOPY SCREENING 11/15/2023 R Cebul no repeat due to age CORRECT BUNION,SIMPLE left ECHOCARDIOGRAM 10/18/2017 EGD 1985 bleeding ulcer EPS: SVT/VT ABLATION 2001 [facility] ESOPHAGOGASTRODUODENOSCOPY TRANSORAL DIAGNOSTIC 03/24/2018 EGD HERNIA REPAIR HX 09/2020 ventral hernia repair HOLTER 24 HR 10/2017 LOOP RECORDER IMPLANT 01/23/2018 NASAL/SINUS ENDOSCOPY WITH SPHENOIDOTOMY Bilateral 05/15/2019 Dr. Ruffin NASAL/SINUS ENDOSCPY W/MAXILL ANTROSTOMY Bilateral 05/15/2019 Dr. Ruffin NASAL/SINUS ENDOSCPY W/TOTAL ETHMOIDECTOMY Bilateral 05/15/2019 Dr. Ruffin OPEN REPAIR OF ROTATOR CUFF ACUTE 04/2005 Dr. Mejias PAST SURGICAL HISTORY OF 10/1997 partial colectomy ([place], [facility]) PAST SURGICAL HISTORY OF 2011 nerves cut in my back STEREO LOC FOR CORE BRST BX LT 04/24/2010 left STRESS TEST 12/17/2017 TONSILLECTOMY PRIMARY/SECONDARY Family History FAMILY HISTORY Problem Relation Age of Onset Heart Mother rheumatic; 73 Colon Cancer Father dx'd age 50's Coronary Artery Disease Father age 40s, CABG (among the first done at in [place]) Stroke Sister at 58 of ruptured aneurysm Cancer Brother at 55 (tobacco, agent orange) DVT Sister Patient Allergies ALLERGIES Allergen Reactions Vicodin [Hydrocodon* GI Upset Buspirone Intolerance Anxious, jittery, felt worse, RLS worse. Cocamidopropyl Beta* Rash itching, rash Codeine GI Upset Pantoprazole GI Upset Bloating, constipation, increase in abd pain Percocet [Oxycodone* GI Upset Sulfa (Sulfonamide * Hives, Swelling lips swelled up Tetracycline GI Upset Current Medications Current Outpatient Medications on File Prior to Visit Medication Sig ondansetron (ZOFRAN) 4 mg tablet Take 1 tablet by mouth every 8 hours as needed for nausea/vomiting. propranolol (INDERAL) 10 mg tablet Take 1 tablet by mouth three times a day as needed. For palpitations nitrofurantoin monohydrate and macrocrystal (MACROBID) 100 mg capsule Take 1 capsule by mouth two times a day with meals for 5 days. rOPINIRole (REQUIP) 0.5 mg tablet Take 1.5 tablets by mouth daily at bedtime. Vit B Complex 100 Combo No.2 (B-100 COMPLEX) 100 mg TbER Take 1 tablet by mouth once daily. levothyroxine (SYNTHROID) 50 mcg tablet Take 50 mcg by mouth. Take 50 mcg on Saturday, and 75 mcg all other days of the week, per ENDO MEDICATION, NON-DATABASE CBD oil fluticasone propionate (ARMONAIR DIGIHALER) 232 mcg/actuation inhaler Inhale 1 Puff as instructed two times a day. levalbuterol tartrate HFA 45 mcg/actuation inhaler Inhale 1-2 Puffs as instructed every 4 hours as needed for wheezing/shortness of breath. Cholecalciferol, Vitamin D3, (VITAMIN D) 25 mcg (1,000 unit) cap Take 1,000 Units by mouth once daily. clonazePAM (KLONOPIN) 0.5 mg tablet Take 0.5 mg by mouth at bedtime as needed. Dr Dupree vit A,C,T-Sgsq-Qfnkub (PRESERVISION AREDS) 7,160-113-100 qlqr-bq-qfdt tab Take by m (more content not included)... [facility] 03-18-2025 History of Presen t illness Narrative Chief Complaint Patient presents with: Follow Up HPI Sachi Grace is a 89 year old female who presents here today for Above Complaints.. Patient presents for continued dry mouth, back pain worse at night. Patient was diagnosed with UTI and started on macrobid 03/15. Patient was also recently diagnosed with pancreatic cancer and will be starting radiation. Also reports leg cramps during the night. Past medical history, appointments, medications, allergies reviewed. 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 Dupree-every 6 months Gout, unspecified late great toe, several episodes Hypothyroidism, unspecified Multinodular goiter Dr Boateng Osteoarthritis of both knees Other and unspecified hyperlipidemia diet therapy as of 03/08 Paroxysmal supraventricular tachycardia (HCC) ablation 01/2002 ( in [place], [facility]), follows with Dr. Moreno (prn only) RLS (restless legs syndrome) Tinnitus, unspecified ear Unspecified constipation Previous Surgical History PAST SURGICAL HISTORY Procedure Laterality Date APPENDECTOMY ARTHRP KNE CONDYLE&PLATU MEDIAL&LAT COMPARTMENTS 2012 Knee replacement, total bilateral CARPAL TUNNEL 2004 bilateral COLONOSCOPY FLX DX W/COLLJ SPEC WHEN PFRMD 12/14/2002 Colonoscopy COLONOSCOPY FLX DX W/COLLJ SPEC WHEN PFRMD 06/10/2007 COLONOSCOPY FLX DX W/COLLJ SPEC WHEN PFRMD 08/04/2013 Colonoscopy COLONOSCOPY FLX DX W/COLLJ SPEC WHEN PFRMD 10/14/2018 [facility]. [place]-Repeat 5 years COLONOSCOPY SCREENING 11/15/2023 R Cebul no repeat due to age CORRECT BUNION,SIMPLE left ECHOCARDIOGRAM 10/18/2017 EGD 1985 bleeding ulcer EPS: SVT/VT ABLATION 2001 [facility] ESOPHAGOGASTRODUODENOSCOPY TRANSORAL DIAGNOSTIC 03/24/2018 EGD HERNIA REPAIR HX 09/2020 ventral hernia repair HOLTER 24 HR 10/2017 LOOP RECORDER IMPLANT 01/23/2018 NASAL/SINUS ENDOSCOPY WITH SPHENOIDOTOMY Bilateral 05/15/2019 Dr. Ruffin NASAL/SINUS ENDOSCPY W/MAXILL ANTROSTOMY Bilateral 05/15/2019 Dr. Ruffin NASAL/SINUS ENDOSCPY W/TOTAL ETHMOIDECTOMY Bilateral 05/15/2019 Dr. Ruffin OPEN REPAIR OF ROTATOR CUFF ACUTE 04/2005 Dr. Mejias PAST SURGICAL HISTORY OF 10/1997 partial colectomy ([place], [facility]) PAST SURGICAL HISTORY OF 2011 nerves cut in my back STEREO LOC FOR CORE BRST BX LT 04/24/2010 left STRESS TEST 12/17/2017 TONSILLECTOMY PRIMARY/SECONDARY <AGE 12 Family History FAMILY HISTORY Problem Relation Age of Onset Heart Mother rheumatic; 73 Colon Cancer Father dx'd age 50's Coronary Artery Disease Father age 40s, CABG (among the first done at in [place]) Stroke Sister at 58 of ruptured aneurysm Cancer Brother at 55 (tobacco, agent orange) DVT Sister Patient Allergies ALLERGIES Allergen Reactions Vicodin [Hydrocodon* GI Upset Buspirone Intolerance Anxious, jittery, felt worse, RLS worse. Cocamidopropyl Beta* Rash itching, rash Codeine GI Upset Pantoprazole GI Upset Bloating, constipation, increase in abd pain Percocet [Oxycodone* GI Upset Sulfa (Sulfonamide * Hives, Swelling lips swelled up Tetracycline GI Upset Current Medications Current Outpatient Medications on File Prior to Visit Medication Sig ondansetron (ZOFRAN) 4 mg tablet Take 1 tablet by mouth every 8 hours as needed for nausea/vomiting. propranolol (INDERAL) 10 mg tablet Take 1 tablet by mouth three times a day as needed. For palpitations nitrofurantoin monohydrate and macrocrystal (MACROBID) 100 mg capsule Take 1 capsule by mouth two times a day with meals for 5 days. rOPINIRole (REQUIP) 0.5 mg tablet Take 1.5 tablets by mouth daily at bedtime. Vit B Complex 100 Combo No.2 (B-100 COMPLEX) 100 mg TbER Take 1 tablet by mouth once daily. levothyroxine (SYNTHROID) 50 mcg tablet Take 50 mcg by mouth. Take 50 mcg on Saturday, and 75 mcg all other days of the week, per ENDO MEDICATION, NON-DATABASE CBD oil fluticasone propionate (ARMONAIR DIGIHALER) 232 mcg/actuation inhaler Inhale 1 Puff as instructed two times a day. levalbuterol tartrate HFA 45 mcg/actuation inhaler Inhale 1-2 Puffs as instructed every 4 hours as needed for wheezing/shortness of breath. Cholecalciferol, Vitamin D3, (VITAMIN D) 25 mcg (1,000 unit) cap Take 1,000 Units by mouth once daily. clonazePAM (KLONOPIN) 0.5 mg tablet Take 0.5 mg by mouth at bedtime as needed. Dr Dupree vit A,C,H-Xwgk-Ojrkpr (PRESERVISION AREDS) 7,160-113-100 pykp-kx-qghw tab Take by mouth. ACETAMINOPHEN 500 MG TAB Take one(1) tablet every four(4) to six(6) hours as needed for pain. No current facility-administered medications on file prior to visit. Social History Social History Tobacco Use Smoking status: Never Smokeless tobacco: Never Vaping Use Vaping status: Never Used Substance Use Topics Alcohol use: No Drug use: No Review of Symptoms REVIEW OF SYSTEMS SEE HPI EXAM: BP 124/78 Pulse 88 Wt 55 kg (121 lb 4.1 oz) BMI 23.68 kg/m General Appearance: Well appearing, alert, in no acute distress, well-hydrated, well nourished.. Nose/Sinuses: Positive findings: clear rhinorrhea, dry mucous membranes. Oropharynx: Negative findings: lips normal without lesions, dry mucous membranes. Abdomen: Positive findings: tenderness moderate generalized. Health Maintenance List Spirometry Never done Shingrix Vaccine(1 of 2) Never done Advance Directive Discussion due on 12/02/2024 Covid-19 Vaccine( season) due on 04/12/2025 Depression Screening due on 03/15/2026 Diabetes Screening due on 11/23/2027 DTaP,Tdap,Td Vaccine(3 - Td or Tdap) due on 03/17/2034 Influenza Vaccine Completed RSV Vaccine Completed Pneumococcal Vaccine: 50+ Completed Bone Density Screening Addressed ASSESSMENT/PLAN: 1. Dry mouth - ICD9: 527.7, ICD10: R68.2 (primary diagnosis) - COMPREHENSIVE METABOLIC PANEL - MAGNESIUM 2. Leg cramps - ICD9: 729.82, ICD10: R25.2 - COMPREHENSIVE METABOLIC PANEL - MAGNESIUM Encouraged patient to start electrolyte solution daily along with increasing PO water intake, verbalized understanding. Dawit Phelan APRN.AUTOMOBILE RENTAL AGENT documented in this encounter [facility] 03-16-2025 Telephone encounter Note Spoke with patient and relayed provider message. She verbalizes understanding. Surgeon said she needs 3 month of chemo before she can have surgery. She sees oncologist tomorrow. Zulma Benites MA March 16, 2025 5:22 PM [facility] 03-16-2025 Miscellaneous Notes Spoke with patient and relayed provider message. She verbalizes understanding. Surgeon said she needs 3 month of chemo before she can have surgery. She sees oncologist tomorrow. Zulma Benites MA March 16, 2025 5:22 PM Sounds like abdominal bloating. I know that she has had some of that with the pancreatic cancer. If she develops vomiting or pain is extremely uncomfortable, go to the emergency room. She was to see surgeon today. Wondering how that went or what they recommended? Pt notified. Pain is around the belt line. Pain to touch and soreness. Pain with laying down. She is still on the Macrobid currently, started yesterday has had 2 pills so far. Call pt back with any further advise or recommendations. Yarelis Oliva MA There was no blood in her urine. She did have a small amount of leukocytes indicating probable infection. The protein level was slightly elevated, meaning some dehydration. I do not think she has any kidney stones or anything like that since there is no blood in her urine. Could be related to the pancreatic cancer. If it was low in her pelvis, may be a bladder infection. Patient was seen by provider yesterday for anxiety/depression. During visit it was noted patient had abnormal urine test and was placed on macrobid. (There was not enough urine for culture). Pt to recheck urine once Macrobid is complete Patient calling in and states she has noticed a terrible back ache and pain in both of her sides over the last few days and wonders if it is related to the urine infection or also related to her pancreatic cancer. Rates it about 6 out of 10. Took tylenol about 30 minutes ago. No other new or worsening sx's. This nurse advised pt to continue taking all medications, including the macrobid, as prescribed, and to call provider's office if pain worsens. Also informed patient that provider would be updated of this call. Please call patient if provider has additional advise. Halima Diaz RN documented in this encounter [facility] 03-16-2025 Telephone encounter Note Sounds like abdominal bloating. I know that she has had some of that with the pancreatic cancer. If she develops vomiting or pain is extremely uncomfortable, go to the emergency room. She was to see surgeon today. Wondering how that went or what they recommended? [facility] 03-16-2025 Telephone encounter Note Pt notified. Pain is around the belt line. Pain to touch and soreness. Pain with laying down. She is still on the Macrobid currently, started yesterday has had 2 pills so far. Call pt back with any further advise or recommendations. Yarelis Oliva MA [facility] 03-16-2025 Telephone encounter Note There was no blood in her urine. She did have a small amount of leukocytes indicating probable infection. The protein level was slightly elevated, meaning some dehydration. I do not think she has any kidney stones or anything like that since there is no blood in her urine. Could be related to the pancreatic cancer. If it was low in her pelvis, may be a bladder infection. [facility] 03-16-2025 Telephone encounter Note Patient was seen by provider yesterday for anxiety/depression. During visit it was noted patient had abnormal urine test and was placed on macrobid. (There was not enough urine for culture). Pt to recheck urine once Macrobid is complete Patient calling in and states she has noticed a terrible back ache and pain in both of her sides over the last few days and wonders if it is related to the urine infection or also related to her pancreatic cancer. Rates it about 6 out of 10. Took tylenol about 30 minutes ago. No other new or worsening sx's. This nurse advised pt to continue taking all medications, including the macrobid, as prescribed, and to call provider's office if pain worsens. Also informed patient that provider would be updated of this call. Please call patient if provider has additional advise. Halima Diaz RN [facility] 03-16-2025 History of Presen t illness Narrative Hepatobiliary Surgery (HPB) & Surgical Oncology Consultation Chief complaint: abdominal pain HPI: 89 F with borderline resectable pancreatic adenocarcinoma 03/16/2025 -89-year-old female presenting with borderline resectable pancreatic carcinoma. Patient presented to her family medical doctor last May with chronic abdominal pain. 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 She has progressively had weight loss, loss of appetite and progressive pain. Eventually she had further workup with an endoscopic ultrasound which demonstrated a 3.6 cm lesion in the head of the pancreas with portal vein involvement biopsy positive for adenocarcinoma. She is here for evaluation. She states that she is in fairly good health. No medical problems. No hospitalizations over the past 20 years. Carries all to his daily living including mowing her lawn and taking care of her home. She also looks after her at home. Has less energy than before but otherwise feels well. PMH: Past Medical History: Diagnosis Date Asthma Fibromyalgia Thyroid activity decreased PSH: Past Surgical History: Procedure Laterality Date APPENDECTOMY ARM SURGERY (HISTORICAL) CARPAL TUNNEL RELEASE Bilateral CHOLECYSTECTOMY COLON SURGERY ROTATOR CUFF REPAIR TOTAL KNEE ARTHROPLASTY Bilateral FH: No family history on file. Social: Social Drivers of Health Tobacco Use: Low Risk (03/16/2025) Patient History Smoking Tobacco Use: Never Smokeless Tobacco Use: Never Passive Exposure: Not on file Alcohol Use: Not At Risk (04/16/2024) Received from [facility] AUDIT-C Frequency of Alcohol Consumption: Never Average Number of Drinks: Patient does not drink Frequency of Binge Drinking: Never Financial Resource Strain: Patient Declined (04/16/2024) Received from [facility] Overall Financial Resource Strain (CARDIA) Difficulty of Paying Living Expenses: Patient declined Food Insecurity: Patient Declined (04/16/2024) Received from [facility] Hunger Vital Sign Worried About Running Out of Food in the Last Year: Patient declined Ran Out of Food in the Last Year: Patient declined Transportation Needs: Unknown (04/16/2024) Received from [facility] PRAPARE - Transportation Lack of Transportation (Medical): Patient declined Lack of Transportation (Non-Medical): Not on file Physical Activity: Patient Declined (04/16/2024) Received from [facility] Exercise Vital Sign Days of Exercise per Week: Patient declined Minutes of Exercise per Session: Patient declined Stress: Stress Concern Present (04/16/2024) Received from [facility] [employer] [place] [employer] - Occupational Stress Questionnaire Feeling of Stress : To some extent Social Connections: Patient Declined (04/16/2024) Received from [facility] Social Connection and Isolation Panel [NHANES] Frequency of Communication with Friends and Family: Patient declined Frequency of Social Gatherings with Friends and Family: Patient declined Attends Temple Services: Patient declined Active Member of Clubs or Organizations: Patient declined Attends Club or Organization Meetings: Patient declined Marital Status: Patient declined Intimate Partner Violence: Not on file Depression: At risk (03/15/2025) Received from [facility] PHQ-2 PHQ-2 score: 4 Housing Stability: Patient Declined (04/16/2024) Received from [facility] Housing Stability Vital Sign Unable to Pay for Housing in the Last Year: Patient declined Number of Places Lived in the Last Year: Not on file Unstable Housing in the Last Year: Patient declined Utilities: Patient Declined (04/16/2024) Received from [facility] Utilities Threatened with loss of utilities: Patient declined Health Literacy: Not on file Medications: Medication Documentation Review Audit Reviewed by Soha Uriostegui MA (Hydrocrane Operator) on 03/16/25 at 1033 Medication Order Taking? Sig Documenting Provider Last Dose Status acetaminophen (Tylenol) 500 MG tablet [id number] Yes Take 500 mg by mouth if needed. Historical ProviderMD Active B Foyewxr-Cjreis-QS (GNP B-100 Complex) tablet controlled-release [id number] Take 100 mg by mouth daily. Patient not taking: Reported on 03/16/2025 Historical ProviderMD Active cholecalciferol (D 1000) 25 MCG (1000 UT) capsule [id number] Take 1,000 Units by mouth daily. Patient not taking: Reported on 03/16/2025 Historical ProviderMD Active clonazePAM (KlonoPIN) 0.5 MG tablet [id number] Yes Take 0.5 mg by mouth Nightly as needed. Historical ProviderMD Active fluticasone, sensor, (ArmonAir Digihaler) 232 MCG/ACT inhaler [id number] Yes Inhale 1 puff twice a day. Historical ProviderMD Active levalbuterol (Xopenex) 45 MCG/ACT inhaler [id number] Yes Inhale 1-2 puffs every 4 hours as needed. Historical ProviderMD Active levothyroxine (Synthroid, Levoxyl) 50 MCG tablet [id number] Yes Take 50 mcg by mouth. Historical ProviderMD Active nitrofurantoin, macrocrystal-monohydrate, (Macrobid) 100 MG capsule [id number] Yes Take 100 mg by mouth. Historical ProviderMD Active nortriptyline (Pamelor) 10 MG capsule [id number] Yes Take 10 mg by mouth Nightly. Historical ProviderMD Active rOPINIRole (Requip) 0.5 MG tablet [id number] Yes Take 0.5 mg by mouth Once. Historical ProviderMD Active Allergies: Allergies Allergen Reactions Sulfa Antibiotics Hives and Swelling lips swelled up Hydrocodone-Acetaminophen Other and Nausea Only Buspirone Other Anxious, jittery, felt worse, RLS worse. Codeine Other and Swelling Swelling of lips Oxycodone-Acetaminophen Other and Nausea Only Pantoprazole Other Bloating, constipation, increase in abd pain Tetracyclines & Related Other and Nausea Only Cocamidopropyl Betaine Rash itching, rash ROS: Negative unless otherwise noted in HPI Physical Exam: General - patient awake alert oriented x 3 no acute distress Cardiovascular - normal rate and rhythm pulses intact Respiratory -airway intact, respirations no tachypnea or use of accessory muscles Abdominal - abdomen is soft nontender nondistended Musculoskeletal - normal range of motion of bilateral upper and lower extremities Lymphatic - no palpable lymphadenopathy Neurologic -gross motor and sensory intact Skin/wound -normal inspection of skin without any rashes Diagnostics: No results found for: GLUCOSE, CALCIUM, NA, K, CO2, CL, BUN, CREATININE No results found for: WBC, HGB, HCT, MCV, PLT No results found for: ALT, AST, GGT, ALKPHOS, BILITOT No results found for: PTT No results found for: INR, PROTIME Assessment/Plan: 89 F with borderline resectable pancreatic adenocarcinoma 03/16/2025 -cross-sectional imaging personally reviewed by myself as well as the endoscopic ultrasound which reveals lesion in the head of the pancreas with SMV portal vein involvement consistent with a borderline resectable pancreatic adenocarcinoma. Generally speaking the standard of care would be for neoadjuvant chemotherapy followed by surgical resection and candidates that are suitable for this. Patient is 89 years old but fully functional without many comorbidities. We had a long discussion regarding the risks and benefits of proceeding down the therapeutic route. Patient is not entirely sure how she would like to proceed. Her options did include the after mentioned maximal treatment effort versus the palliative care scenario which would focus on quality of life should she wish to avoid extravagant treatment and perhaps undue suffering. Patient will be meeting with medical oncology tomorrow. Will decide on how she would like to proceed in the ensuing days to weeks. I have spent 45 minutes reviewing the patient's record performing medically appropriate history and examination, and independently interpreting results, communicating results to patient, reviewing separately obtained history, counseling and education of the patient documenting clinical information and coordination of care for the patient. Cliff Troncoso MD FACS Hepatobiliary Surgery (HPB) and Surgical Oncology Department of Surgery [facility] documented in this encounter [facility] 03-16-2025 Instructions Ellyn Vuong MA - 03/16/2025 10:30 AM EDT -Patient nauseated, pain, anxiety, cries frequently -healthy, never smoked nor drink, remains active, self sufficient -family history of cancer, colon, breast and lung -treatment options for pancreatic cancer -chemotherapy, to see if cancer shrinks -surgery, seven hour surgery (hospital stay up to two weeks) -Palliative Care (Quality of Life) -Discuss with family, follow up with Dr. King -follow up as needed documented in this encounter [facility] 03-16-2025 Note Hepatobiliary Surger y (HPB) & Surgical Oncology Consultation Chief complaint: abdominal pain HPI: 89 F with borderline resectable pancreatic adenocarcinoma 03/16/2025 -89-year-old female presenting with borderline resectable pancreatic carcinoma. Patient presented to her family medical doctor last May with chronic abdominal pain. 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 She has progressively had weight loss, loss of appetite and progressive pain. Eventually she had further workup with an endoscopic ultrasound which demonstrated a 3.6 cm lesion in the head of the pancreas with portal vein involvement biopsy positive for adenocarcinoma. She is here for evaluation. She states that she is in fairly good health. No medical problems. No hospitalizations over the past 20 years. Carries all to his daily living including mowing her lawn and taking care of her home. She also looks after her at home. Has less energy than before but otherwise feels well. PMH: Past Medical History: Diagnosis Date Asthma Fibromyalgia Thyroid activity decreased PSH: Past Surgical History: Procedure Laterality Date APPENDECTOMY ARM SURGERY (HISTORICAL) CARPAL TUNNEL RELEASE Bilateral CHOLECYSTECTOMY COLON SURGERY ROTATOR CUFF REPAIR TOTAL KNEE ARTHROPLASTY Bilateral FH: No family history on file. Social: Social Drivers of Health Tobacco Use: Low Risk (03/16/2025) Patient History Smoking Tobacco Use: Never Smokeless Tobacco Use: Never Passive Exposure: Not on file Alcohol Use: Not At Risk (04/16/2024) Received from [facility] AUDIT-C Frequency of Alcohol Consumption: Never Average Number of Drinks: Patient does not drink Frequency of Binge Drinking: Never Financial Resource Strain: Patient Declined (04/16/2024) Received from [facility] Overall Financial Resource Strain (CARDIA) Difficulty of Paying Living Expenses: Patient declined Food Insecurity: Patient Declined (04/16/2024) Received from [facility] Hunger Vital Sign Worried About Running Out of Food in the Last Year: Patient declined Ran Out of Food in the Last Year: Patient declined Transportation Needs: Unknown (04/16/2024) Received from [facility] PRAPARE - Transportation Lack of Transportation (Medical): Patient declined Lack of Transportation (Non-Medical): Not on file Physical Activity: Patient Declined (04/16/2024) Received from [facility] Exercise Vital Sign Days of Exercise per Week: Patient declined Minutes of Exercise per Session: Patient declined Stress: Stress Concern Present (04/16/2024) Received from [facility] [employer] [employer] - Occupational Stress Questionnaire Feeling of Stress : To some extent Social Connections: Patient Declined (04/16/2024) Received from [facility] Social Connection and Isolation Panel [NHANES] Frequency of Communication with Friends and Family: Patient declined Frequency of Social Gatherings with Friends and Family: Patient declined Attends Temple Services: Patient declined Active Member of Clubs or Organizations: Patient declined Attends Club or Organization Meetings: Patient declined Marital Status: Patient declined Intimate Partner Violence: Not on file Depression: At risk (03/15/2025) Received from [facility] PHQ-2 PHQ-2 score: 4 Housing Stability: Patient Declined (04/16/2024) Received from [facility] Housing Stability Vital Sign Unable to Pay for Housing in the Last Year: Patient declined Number of Places Lived in the Last Year: Not on file Unstable Housing in the Last Year: Patient declined Utilities: Patient Declined (04/16/2024) Received from [facility] Utilities Threatened with loss of utilities: Patient declined Health Literacy: Not on file Medications: Medication Documentation Review Audit Reviewed by Soha Uriostegui MA (Hydrocrane Operator) on 03/16/25 at 1033 Medication Order Taking? Sig Documenting Provider Last Dose Status acetaminophen (Tylenol) 500 MG tablet [id number] Yes Take 500 mg by mouth if needed. Historical Provider, MD Vega B Zxwfolm-Molypo-WZ (GNP B-100 Complex) tablet controlled-release [id number] Take 100 mg by mouth daily. Patient not taking: Reported on 03/16/2025 Historical Provider, MD Active cholecalciferol (D 1000) 25 MCG (1000 UT) capsule [id number] Take 1,000 Units by mouth daily. Patient not taking: Reported on 03/16/2025 Historical Provider, Active clonazePAM (KlonoPIN) 0.5 MG tablet [id number] Yes Take 0.5 mg by mouth Nightly as needed. Historical Provider, Active fluticasone, sensor, (ArmonAir Digihaler) 232 MCG/ACT inhaler [id number] Yes Inhale 1 puff twice a day. Historical Provider, Active levalbuterol (Xopenex) 45 MCG/ACT inhaler [id number] Yes Inhale 1-2 puffs every 4 hours as needed. Historical Provider, Active levothyroxine (Synthroid, Levoxyl) 50 MCG tablet [id number] Y (more content not included)... [facility] 03-15-2025 Note Addended by: ANITRA MANCERA on: 03/15/2025 10:41 AM Modules accepted: Orders [facility] 03-15-2025 Miscellaneous Notes Addended by: ANITRA MANCERA on: 03/15/2025 10:41 AM Modules accepted: Orders documented in this encounter [facility] 03-15-2025 Instructions Anitra Mancera APRN.CNP - 03/15/2025 10:26 AM EDT 1) ondansetron 4 mg every 8 hours as needed for nausea 2) propranolol 10 mg up to 3 x day as needed for palpitations and anxiety 3) check urine and culture 4) Follow up in 3 months documented in this encounter [facility] 03-15-2025 Note HNO ID: [id number] Author: ANITRA MANCERA APRN.AUTOMOBILE RENTAL AGENT Service: ? Author Type: Nurse Practitioner Type: Progress Notes Filed: 03/15/2025 10:41 Note Text: This is a 89 year old female who presents today with: Patient presents with: Acute Visit: Dry mouth, heart racing last night(115 bpm), one episode of diarrhea this morning. Feels like she might be having a panic attack. HISTORY OF PRESENT ILLNESS: Sachi Grace is a 89 year old female. Patient presents with: Acute Visit: Dry mouth, heart racing last night(115 bpm), one episode of diarrhea this morning. Feels like she might be having a panic attack. 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 Increased clonazepam. Can't tolerate because it makes her too sleepy. Dry mouth. Not getting restful sleep. + Nausea. No vomiting. + diarrhea today. + Chills. No fever. 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 Dupree-every 6 months Gout, unspecified late great toe, several episodes Hypothyroidism, unspecified Multinodular goiter Dr Boateng Osteoarthritis of both knees Other and unspecified hyperlipidemia diet therapy as of 03/08 Paroxysmal supraventricular tachycardia (HCC) ablation 01/2002 ( in [place], [facility]), follows with Dr. Moreno (prn only) RLS (restless legs syndrome) Tinnitus, unspecified ear Unspecified constipation PAST SURGICAL HISTORY Procedure Laterality Date APPENDECTOMY ARTHRP KNE CONDYLEANDPLATU MEDIALANDLAT COMPARTMENTS 2012 Knee replacement, total bilateral CARPAL TUNNEL 2005 bilateral COLONOSCOPY FLX DX W/COLLJ SPEC WHEN PFRMD 12/14/2002 Colonoscopy COLONOSCOPY FLX DX W/COLLJ SPEC WHEN PFRMD 06/10/2007 COLONOSCOPY FLX DX W/COLLJ SPEC WHEN PFRMD 08/04/2013 Colonoscopy COLONOSCOPY FLX DX W/COLLJ SPEC WHEN PFRMD 10/14/2018 [facility]-Repeat 5 years COLONOSCOPY SCREENING 11/15/2023 R Cebul no repeat due to age CORRECT BUNION,SIMPLE left ECHOCARDIOGRAM 10/18/2017 EGD 1985 bleeding ulcer EPS: SVT/VT ABLATION 2001 [facility] ESOPHAGOGASTRODUODENOSCOPY TRANSORAL DIAGNOSTIC 03/24/2018 EGD HERNIA REPAIR HX 09/2020 ventral hernia repair HOLTER 24 HR 10/2017 LOOP RECORDER IMPLANT 01/23/2018 NASAL/SINUS ENDOSCOPY WITH SPHENOIDOTOMY Bilateral 05/15/2019 Dr. Ruffin NASAL/SINUS ENDOSCPY W/MAXILL ANTROSTOMY Bilateral 05/15/2019 Dr. Ruffin NASAL/SINUS ENDOSCPY W/TOTAL ETHMOIDECTOMY Bilateral 05/15/2019 Dr. Ruffin OPEN REPAIR OF ROTATOR CUFF ACUTE 04/2005 Dr. Mejias PAST SURGICAL HISTORY OF 10/1997 partial colectomy ([place], [facility]) PAST SURGICAL HISTORY OF 2011 nerves cut in my back STEREO LOC FOR CORE BRST BX LT 04/24/2010 left STRESS TEST 12/17/2017 TONSILLECTOMY PRIMARY/SECONDARY ALLERGIES Vicodin [Hydrocodone-Acetaminophen], Buspirone, Cocamidopropyl Betaine, Codeine, Pantoprazole, Percocet [Oxycodone-Acetaminophen], Sulfa (Sulfonamide Antibiotics), and Tetracycline MEDICATIONS Current Outpatient Medications Medication Sig rOPINIRole (REQUIP) 0.5 mg tablet Take 1.5 tablets by mouth daily at bedtime. Vit B Complex 100 Combo No.2 (B-100 COMPLEX) 100 mg TbER Take 1 tablet by mouth once daily. levothyroxine (SYNTHROID) 50 mcg tablet Take 50 mcg by mouth. Take 50 mcg on Saturday, and 75 mcg all other days of the week, per ENDO MEDICATION, NON-DATABASE CBD oil fluticasone propionate (ARMONAIR DIGIHALER) 232 mcg/actuation inhaler Inhale 1 Puff as instructed two times a day. levalbuterol tartrate HFA 45 mcg/actuation inhaler Inhale 1-2 Puffs as instructed every 4 hours as needed for wheezing/shortness of breath. Cholecalciferol, Vitamin D3, (VITAMIN D) 25 mcg (1,000 unit) cap Take 1,000 Units by mouth once daily. clonazePAM (KLONOPIN) 0.5 mg tablet Take 0.5 mg by mouth at bedtime as needed. Dr Dupree vit A,C,N-Gtsh-Xaelpu (PRESERVISION AREDS) 7,160-113-100 ddmw-gu-vkxx tab Take by mouth. ACETAMINOPHEN 500 MG TAB Take one(1) tablet every four(4) to six(6) hours as needed for pain. No current facility-administered medications for this visit. FAMILY HISTORY Problem Relation Age of Onset Heart Mother rheumatic; 73 Colon Cancer Father dx'd age 50's Coronary Artery Disease Father age 40s, CABG (among the first done at in [place]) Stroke Sister at 58 of ruptured aneurysm Cancer Brother at 55 (tobacco, agent orange) DVT Sister Social History Tobacco Use Smoking status: Never Smokeless tobacco: Never Vaping Use Vaping status: Never Used Substance Use Topics Alcohol use: No Drug use: No (more content not included)... [facility] 03-15-2025 History of Presen t illness Narrative This is a 89 year old female who presents today with: Patient presents with: Acute Visit: Dry mouth, heart racing last night(115 bpm), one episode of diarrhea this morning. Feels like she might be having a panic attack. HISTORY OF PRESENT ILLNESS: Sachi Grace is a 89 year old female. Patient presents with: Acute Visit: Dry mouth, heart racing last night(115 bpm), one episode of diarrhea this morning. Feels like she might be having a panic attack. 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 Increased clonazepam. Can't tolerate because it makes her too sleepy. Dry mouth. Not getting restful sleep. + Nausea. No vomiting. + diarrhea today. + Chills. No fever. 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 Dupree-every 6 months Gout, unspecified late great toe, several episodes Hypothyroidism, unspecified Multinodular goiter Dr Boateng Osteoarthritis of both knees Other and unspecified hyperlipidemia diet therapy as of 03/08 Paroxysmal supraventricular tachycardia (HCC) ablation 01/2002 ( in [place], [facility]), follows with Dr. Moreno (prn only) RLS (restless legs syndrome) Tinnitus, unspecified ear Unspecified constipation PAST SURGICAL HISTORY Procedure Laterality Date APPENDECTOMY ARTHRP KNE CONDYLE&PLATU MEDIAL&LAT COMPARTMENTS 2011 Knee replacement, total bilateral CARPAL TUNNEL 2005 bilateral COLONOSCOPY FLX DX W/COLLJ SPEC WHEN PFRMD 12/14/2002 Colonoscopy COLONOSCOPY FLX DX W/COLLJ SPEC WHEN PFRMD 06/10/2007 COLONOSCOPY FLX DX W/COLLJ SPEC WHEN PFRMD 08/04/2013 Colonoscopy COLONOSCOPY FLX DX W/COLLJ SPEC WHEN PFRMD 10/14/2018 [facility]. C[facility]-Repeat 5 years COLONOSCOPY SCREENING 11/15/2023 R Cebul no repeat due to age CORRECT BUNION,SIMPLE left ECHOCARDIOGRAM 10/18/2017 EGD 1985 bleeding ulcer EPS: SVT/VT ABLATION 2001 [facility] ESOPHAGOGASTRODUODENOSCOPY TRANSORAL DIAGNOSTIC 03/24/2018 EGD HERNIA REPAIR HX 09/2020 ventral hernia repair HOLTER 24 HR 10/2017 LOOP RECORDER IMPLANT 01/23/2018 NASAL/SINUS ENDOSCOPY WITH SPHENOIDOTOMY Bilateral 05/15/2019 Dr. Ruffin NASAL/SINUS ENDOSCPY W/MAXILL ANTROSTOMY Bilateral 05/15/2019 Dr. Ruffin NASAL/SINUS ENDOSCPY W/TOTAL ETHMOIDECTOMY Bilateral 05/15/2019 Dr. Ruffin OPEN REPAIR OF ROTATOR CUFF ACUTE 04/2005 Dr. Mejias PAST SURGICAL HISTORY OF 10/1997 partial colectomy ([place], [facility]) PAST SURGICAL HISTORY OF 2011 nerves cut in my back STEREO LOC FOR CORE BRST BX LT 04/24/2010 left STRESS TEST 12/17/2017 TONSILLECTOMY PRIMARY/SECONDARY <AGE 12 ALLERGIES Vicodin [Hydrocodone-Acetaminophen], Buspirone, Cocamidopropyl Betaine, Codeine, Pantoprazole, Percocet [Oxycodone-Acetaminophen], Sulfa (Sulfonamide Antibiotics), and Tetracycline MEDICATIONS Current Outpatient Medications Medication Sig rOPINIRole (REQUIP) 0.5 mg tablet Take 1.5 tablets by mouth daily at bedtime. Vit B Complex 100 Combo No.2 (B-100 COMPLEX) 100 mg TbER Take 1 tablet by mouth once daily. levothyroxine (SYNTHROID) 50 mcg tablet Take 50 mcg by mouth. Take 50 mcg on Saturday, and 75 mcg all other days of the week, per ENDO MEDICATION, NON-DATABASE CBD oil fluticasone propionate (ARMONAIR DIGIHALER) 232 mcg/actuation inhaler Inhale 1 Puff as instructed two times a day. levalbuterol tartrate HFA 45 mcg/actuation inhaler Inhale 1-2 Puffs as instructed every 4 hours as needed for wheezing/shortness of breath. Cholecalciferol, Vitamin D3, (VITAMIN D) 25 mcg (1,000 unit) cap Take 1,000 Units by mouth once daily. clonazePAM (KLONOPIN) 0.5 mg tablet Take 0.5 mg by mouth at bedtime as needed. Dr Joon nolasco A,C,I-Rrxm-Kjqrkk (PRESERVISION AREDS) 7,160-113-100 omou-be-drcq tab Take by mouth. ACETAMINOPHEN 500 MG TAB Take one(1) tablet every four(4) to six(6) hours as needed for pain. No current facility-administered medications for this visit. FAMILY HISTORY Problem Relation Age of Onset Heart Mother rheumatic; 73 Colon Cancer Father dx'd age 50's Coronary Artery Disease Father age 40s, CABG (among the first done at in [place]) Stroke Sister at 58 of ruptured aneurysm Cancer Brother at 55 (tobacco, agent orange) DVT Sister Social History Tobacco Use Smoking status: Never Smokeless tobacco: Never Vaping Use Vaping status: Never Used Substance Use Topics Alcohol use: No Drug use: No EXAM: BP 104/58 Pulse 94 Temp 36.9 C (98.5 F) (Right Tympanic) Wt 54 kg (119 lb) SpO2 97% BMI 23.24 kg/m PHYSICAL EXAM: Physical Exam Vitals reviewed. Constitutional: Appearance: Normal appearance. HENT: Head: Normocephalic. Cardiovascular: Rate and Rhythm: Normal rate and regular rhythm. Pulses: Normal pulses. Heart sounds: Normal heart sounds. Pulmonary: Effort: Pulmonary effort is normal. Breath sounds: Normal breath sounds. Abdominal: General: Bowel sounds are normal. Palpations: Abdomen is soft. Tenderness: There is no abdominal tenderness. There is no guarding or rebound. Musculoskeletal: General: Normal range of motion. Right lower leg: No edema. Left lower leg: No edema. Comments: Walks w/o assistive device, moves all ext. Without difficulty Skin: General: Skin is warm and dry. Neurological: Mental Status: She is alert and oriented to person, place, and time. LABS: urinalysis & culture ASSESSMENT/PLAN: 1. Anxiety with depression - ICD9: 300.4, ICD10: F41.8 (primary diagnosis) Worsened by cancer Dx - PROPRANOLOL 10 MG TABLET as needed for palpiations and anxiety 2. 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) - ICD9: 157.0, ICD10: C25.0 Having surgical consult tomorrow - ONDANSETRON HCL 4 MG TABLET as needed for nausea or vomiting 3. Screening for depression - ICD9: V79.0, ICD10: Z13.31 ongoing - DEPRESSION SCREENING 4. Urinary urgency - ICD9: 788.63, ICD10: R39.15 Check urine - UA DIP, URINE (POC) positive for leukocytes,, negative for nitrates- treat with Macrobid for 5 days - BACTERIAL CULTURE, URINE not enough urine for culture, recheck urine once Macrobid is complete Discussed treatment plan and patient voices understanding. Patient's questions answered appropriately. Medications and potential side effects were discussed and patient voices understanding. Return to the office as scheduled or as needed for worsening/no improvement. Anitra Mancera APRN.RUSTY documented in this encounter [facility] 03-15-2025 Note HNO ID: [id number] Author: NATHALIA JAY APRN.CNP Service: ? Author Type: Nurse Practitioner Type: Progress Notes Filed: 03/15/2025 09:41 Note Text: Patient came in tearful. Patient says she was recently diagnosed with pancreatic cancer. Patient says she wakes up with a lot of anxiety throughout the night. Patient says she feels like her heart is racing and her mouth is dry. Patient said they did increase one of her anxiety medications but it is not helping. At this time patient should be evaluated by primary care for possible treatments to help patient. Patient agreeable was able to get her in at 10 AM. [facility] 03-15-2025 History of Presen t illness Narrative Patient came in tearful. Patient says she was recently diagnosed with pancreatic cancer. Patient says she wakes up with a lot of anxiety throughout the night. Patient says she feels like her heart is racing and her mouth is dry. Patient said they did increase one of her anxiety medications but it is not helping. At this time patient should be evaluated by primary care for possible treatments to help patient. Patient agreeable was able to get her in at 10 AM. documented in this encounter [facility] 02-24-2025 Note HNO ID: [id number] Author: SENA HAHN MA Service: ? Author Type: Hydrocrane Operator Type: Progress Notes Filed: 02/24/2025 16:08 Note Text: POPULATION HEALTH NAVIGATION OUTREACH Action/LabotecRanda Karimi called and she was dx with pancreatic cancer. Patient declined. Reason for Outreach Care Gap/HCC or Scheduling Wellness Visits Care Gaps due: Medicare Annual Wellness Visit Patient Contacted: Spoke to patient/parent/or legal guardian Patient identified by name and : Yes Care Gap/HCC/Scheduling Wellness actions taken: Patient declined: Patient Declines Navigation Scheduling / Outreach HCC related Navigation Signature: Sena Hahn MA February 24, 2025 4:06 PM [facility] 02-24-2025 History of Presen t illness Narrative POPULATION HEALTH NAVIGATION OUTREACH Action/FYI Sachi called and she was dx with pancreatic cancer. Patient declined. Reason for Outreach Care Gap/HCC or Scheduling Wellness Visits Care Gaps due: Medicare Annual Wellness Visit Patient Contacted: Spoke to patient/parent/or legal guardian Patient identified by name and : Yes Care Gap/HCC/Scheduling Wellness actions taken: Patient declined: Patient Declines Navigation Scheduling / Outreach HCC related Navigation Signature: Sena Hahn MA February 24, 2025 4:06 PM POPULATION HEALTH NAVIGATION OUTREACH Action/FYI NO ANSWER MYCHART MESSAGE SENT Topic Due (Y or N) Comments Medicare Wellness Y PCP Follow up Colorectal Cancer Screening Controlling Blood Pressure A1C HCC Y Flu Vaccine Care Everywhere Reviewed MyChart Activation Updated Appointment Note Reason for Outreach Care Gap/HCC or Scheduling Wellness Visits Care Gaps due: Medicare Annual Wellness Visit Patient Contacted: Unable or unnecessary to reach patient: Unable to leave message MyChart message sent HCC related Navigation Signature: Sena Hahn MA February 24, 2025 3:07 PM documented in this encounter [facility] 02-24-2025 Note HNO ID: [id number] Author: SENA HAHN MA Service: ? Author Type: Hydrocrane Operator Type: Progress Notes Filed: 02/24/2025 16:06 Note Text: POPULATION HEALTH NAVIGATION OUTREACH Action/FYI NO ANSWER MYCHART MESSAGE SENT Topic Due (Y or N) Comments Medicare Wellness Y PCP Follow up Colorectal Cancer Screening Controlling Blood Pressure A1C HCC Y Flu Vaccine Care Everywhere Reviewed MyChart Activation Updated Appointment Note Reason for Outreach Care Gap/HCC or Scheduling Wellness Visits Care Gaps due: Medicare Annual Wellness Visit Patient Contacted: Unable or unnecessary to reach patient: Unable to leave message MyChart message sent HCC related Navigation Signature: Sena Hahn MA February 24, 2025 3:07 PM [facility] 02-24-2025 Note Patient Outreach (NE TNAV) SACHI GRACE ([id number]) 1935 F NFR Date Time Provider Department 02/24/25 SENA HAHN NETNAV During your visit today, we recorded the following information about you: Sena Hahn MA 02/24/2025 4:06 PM Addendum POPULATION HEALTH NAVIGATION OUTREACH Action/FYI NO ANSWER MYCHART MESSAGE SENT Topic Due (Y or N) Comments Medicare Wellness Y PCP Follow up Colorectal Cancer Screening Controlling Blood Pressure A1C HCC Y Flu Vaccine Care Everywhere Reviewed MyChart Activation Updated Appointment Note Reason for Outreach Care Gap/HCC or Scheduling Wellness Visits Care Gaps due: Medicare Annual Wellness Visit Patient Contacted: Unable or unnecessary to reach patient: Unable to leave message MyChart message sent HCC related Navigation Signature: Sena Hahn MA February 24, 2025 3:07 PM Sena Hahn MA 02/24/2025 4:08 PM Signed POPULATION HEALTH NAVIGATION OUTREACH Action/FYI Sachi called and she was dx with pancreatic cancer. Patient declined. Reason for Outreach Care Gap/HCC or Scheduling Wellness Visits Care Gaps due: Medicare Annual Wellness Visit Patient Contacted: Spoke to patient/parent/or legal guardian Patient identified by name and : Yes Care Gap/HCC/Scheduling Wellness actions taken: Patient declined: Patient Declines Navigation Scheduling / Outreach HCC related Navigation Signature: Sena Hahn MA February 24, 2025 4:06 PM Allergies As of Date: 02/24/2025 Noted Allergy Reaction VICODIN (HYDROCODONE-ACETAMINOPHE*2012 8 - GI Upset BUSPIRONE 04/21/2024 5 - Intolerance Comments: Anxious, jittery, felt worse, RLS worse. COCAMIDOPROPYL BETAINE 07/27/2020 2 - Rash Comments: itching, rash CODEINE 03/19/2007 8 - GI Upset PANTOPRAZOLE 12/18/2024 8 - GI Upset Comments: Bloating, constipation, increase in abd pain PERCOCET (OXYCODONE-ACETAMINOPHEN) 013 8 - GI Upset SULFA (SULFONAMIDE ANTIBIOTICS) 03/19/2007 4 - Hives 7 - Swelling Comments: lips swelled up TETRACYCLINE 04/29/2019 8 - GI Upset Date Reviewed: 12/18/2024 Reviewed by: Zulma Benites MA - Fully Assessed Prescriptions as of 02/24/2025 - rOPINIRole (REQUIP) 0.5 mg tablet Take 1.5 tablets by mouth daily at bedtime. - Vit B Complex 100 Combo No.2 (B-100 COMPLEX) 100 mg TbER Take 1 tablet by mouth once daily. - levothyroxine (SYNTHROID) 50 mcg tablet Take 50 mcg by mouth. Take 50 mcg on Saturday, and 75 mcg all other days of the week, per ENDO - MEDICATION, NON-DATABASE CBD oil - fluticasone propionate (ARMONAIR DIGIHALER) 232 mcg/actuation inhaler Inhale 1 Puff as instructed two times a day. - levalbuterol tartrate HFA 45 mcg/actuation inhaler Inhale 1-2 Puffs as instructed every 4 hours as needed for wheezing/shortness of breath. - Cholecalciferol, Vitamin D3, (VITAMIN D) 25 mcg (1,000 unit) cap Take 1,000 Units by mouth once daily. - clonazePAM (KLONOPIN) 0.5 mg tablet Take 0.5 mg by mouth at bedtime as needed. Dr Dupree - vit A,C,K-Ekfq-Xgxvbj (PRESERVISION AREDS) 7,160-113-100 voxt-va-epia tab Take by mouth. - ACETAMINOPHEN 500 MG TAB Take one(1) tablet every four(4) to six(6) hours as needed for pain. Problem List As Of Date 02/24/2025 Noted Resolved Unspecified constipation [K59.00] 04/30/2006 03/16/2016 PEPTIC ULCER NOS [K27.9] 03/19/2007 GENERALIZED ANXIETY DIS [F41.1] Generalized osteoarthrosis, unspecified site [M* 12/23/2015 Myalgia and myositis [TSX1954] 05/22/2017 Diverticulosis of large intestine [K57.30] Disorder of bone and cartilage [M89.9, M94.9] Hypothyroidism [E03.9] Hyperlipidemia LDL goal <130 [E78.5] Gout, unspecified [M10.9] 12/23/2015 PEPTIC ULCER NOS [K27.9] 03/19/2007 PAROX ATRIAL TACHYCARDIA [I47.10] 03/19/2007 Disturbances of sensation of smell and taste [R*02/13/2008 05/22/2017 Chronic maxillary sinusitis [J32.0] 02/13/2008 05/22/2017 Meniere's disease, unspecified [H81.09] 05/20/2008 03/16/2016 Dizziness and giddiness [R42] 05/13/2009 12/23/2015 Cervicalgia [M54.2] 05/13/2009 12/23/2015 Osteoarthritis of both knees [M17.0] Multinodular goiter [E04.2] Syncope and collapse [R55] 04/30/2014 12/23/2015 History of knee replacement, total [Z96.659] 12/23/2015 Ageusia [R43.2] 02/23/2016 05/22/2017 Glossitis [K14.0] 02/23/2016 05/22/2017 Mild intermittent asthma without complication [*03/16/2016 Paroxysmal supraventricular tachycardia (HCC) [* Nausea [R11.0] 03/20/2018 04/29/2019 Hernia of anterior abdominal wall [K43.9] 04/18/2020 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 [facility] 02-15-2025 Telephone encounter Note PCP was asking for update on patient about GI consult. Spoke with patient, she had biopsy done at [facility]. She said she has pancreatic cancer. She is going to see [facility] oncology office. They are waiting for final pathology results to make her appointment. Zulma Benites MA February 15, 2025 9:54 AM [facility] 02-15-2025 Miscellaneous Notes PCP was asking for update on patient about GI consult. Spoke with patient, she had biopsy done at [facility]. She said she has pancreatic cancer. She is going to see [facility] oncology office. They are waiting for final pathology results to make her appointment. Zulma Benites MA February 15, 2025 9:54 AM documented in this encounter [facility] 02-15-2025 Telephone encounter Note The following approved medication requests have been transmitted electronically. Requested Prescriptions Pending Prescriptions Disp Refills rOPINIRole (REQUIP) 0.5 mg tablet 135 tablet 1 Sig: Take 1.5 tablets by mouth daily at bedtime. Anitra Mancera APRN.CNP [facility] 02-15-2025 Miscellaneous Notes The following approved medication requests have been transmitted electronically. Requested Prescriptions Pending Prescriptions Disp Refills rOPINIRole (REQUIP) 0.5 mg tablet 135 tablet 1 Sig: Take 1.5 tablets by mouth daily at bedtime. Anitra Mancera APRN.CNP Patient calls to request refill or ropinirole 0.5 mg take 1.5 mg tablet daily at bedtime. Medication discontinued. Note says patient discontinued. Patient says that is not true she has been taking medication and wants it refilled. Pended per request. Last OV: 01/21/2025 Next OV: None Marcia Sue RN documented in this encounter [facility] 02-15-2025 Telephone encounter Note Patient calls to request refill or ropinirole 0.5 mg take 1.5 mg tablet daily at bedtime. Medication discontinued. Note says patient discontinued. Patient says that is not true she has been taking medication and wants it refilled. Pended per request. Last OV: 01/21/2025 Next OV: None Marcia Sue RN [facility] 02-10-2025 Procedure anesthe elidia Narrative Procedure Name Responsible Anesthesiologist Anesthesia Start Time Anesthesia Stop Time ESOPHAGOSCOPIC ULTRASOUND EXAM Flaquito Pineda MD 02/10/25 1201 02/10/25 1240 Events Date Time Event Comment 02/10/2025 1128 1155 In Room 1201 An Start 1201 An Start Data 1201 Start Auxiliary O2 1204 An Induction The patient was reevaluated immediately before moderate or deep sedation use and before anesthesia induction. 1237 an stop data 1238 Out of Room 1240 An Stop Meds Name Total lidocaine PF (Xylocaine-MPF) local injec tion 2 % 50 mg propofol (Diprivan) injection 10 mg/mL 1 00 mg piperacillin-tazobactam (Zos yn) 3,375 mg in sodium chloride 0.9 % 50 mL IVPB Mini-Bag Plus 3,375 mg propofol (Diprivan) infusion 10 mg/mL 15 3.09 mg sodium chloride 0.9 % infusion 200 mL * Agents Name O2 N2O Air * Blood No blood administrations on file. Lines, Drains, and Airways Type Details Placement Removal Peripheral IV Placement Date: 02/10/25; Placement Time: 1043; Catheter Size: 22 G; Orientation: Posterior, Right; Location: Forearm; Site Prep: Alcohol; Local Anesth: None; Inserted by: EARLENE; Insertion Attempts: 1; Difficult Venous Access? No; Removal Date: 02/10/25; Removal Time: 1320 02/10/25 1043 by Troy Yap RN 02/10/25 1320 by Alyse Campos RN [id number]* Addendum Note - RIGO Mora CRNA - 02/10/2025 1:33 PM EDT Addendum created 02/10/25 1333 by RIGO Mora CRNA Clinical Note Signed [id number] Miscellaneous Notes* Addendum Note - RIGO Mora CRNA - 02/10/2025 1:33 PM EDT Addendum created 02/10/25 1333 by RIGO Mora CRNA Clinical Note Signed * Anesthesia Discharge Note - RIGO Mora CRNA - 02/10/2025 12:47 PM EDT Patient: Sachi Grace Procedure Summary Date: 02/10/25 Room / Location: [place] [id number] / [facility] Gastroenterology Anesthesia Start: 1201 Anesthesia Stop: 1240 Procedure: ESOPHAGOSCOPIC ULTRASOUND EXAM Diagnosis: Other specified diseases of pancreas Providers: Quinten Franco MD Responsible Provider: Flaquito Pineda MD Anesthesia Type: TIVA ASA Status: 2 Anesthesia Type: TIVA Vitals Value Taken Time BP 120/60 02/10/25 1240 Temp 36.4 C (97.6 F) 02/10/25 1240 Pulse 79 02/10/25 1240 Resp 18 02/10/25 1240 SpO2 97 % 02/10/25 1240 Anesthesia Post Evaluation Patient location during evaluation: PACU Patient participation: complete - patient participated Level of consciousness: awake and alert Pain management: satisfactory to patient Airway patency: patent Dental Injury: no Cardiovascular status: acceptable, blood pressure returned to baseline and hemodynamically stable Respiratory status: acceptable and spontaneous ventilation Hydration status: euvolemic Nausea/Vomiting: controlled No notable events documented. Patient can be discharged once all PACU criteria has been met. documented in this [facility]03-12-2025 Note* Anesthesia Discharge Note - RIGO Mora CRNA - 02/10/2025 12:47 PM EDT Patient: Sachi Grace Procedure Summary Date: 02/10/25 Room / Location: [place] [address] / [facility] Gastroenterology Anesthesia Start: 1201 Anesthesia Stop: 1240 Procedure: ESOPHAGOSCOPIC ULTRASOUND EXAM Diagnosis: Other specified diseases of pancreas Providers: Quinten Franco MD Responsible Provider: Flaquito Pineda MD Anesthesia Type: TIVA ASA Status: 2 Anesthesia Type: TIVA Vitals Value Taken Time BP 120/60 02/10/25 1240 Temp 36.4 C (97.6 F) 02/10/25 1240 Pulse 79 02/10/25 1240 Resp 18 02/10/25 1240 SpO2 97 % 02/10/25 1240 Anesthesia Post Evaluation Patient location during evaluation: PACU Patient participation: complete - patient participated Level of consciousness: awake and alert Pain management: satisfactory to patient Airway patency: patent Dental Injury: no Cardiovascular status: acceptable, blood pressure returned to baseline and hemodynamically stable Respiratory status: acceptable and spontaneous ventilation Hydration status: euvolemic Nausea/Vomiting: controlled No notable events documented. Patient can be discharged once all PACU criteria has been met. [id number] NotePatient: Sachi Grace Procedure Summary Date: 02/10/25 Room / Location: [address] Gastroenterology Anesthesia Start: 1201 Anesthesia Stop: 1240 Procedure: ESOPHAGOSCOPIC ULTRASOUND EXAM Diagnosis: Other specified diseases of pancreas Providers: Quinten Franco MD Responsible Provider: Flaquito Pineda MD Anesthesia Type: TIVA ASA Status: 2 Anesthesia Type: TIVA Vitals Value Taken Time BP 120/60 02/10/25 1240 Temp 36.4 ?C (97.6 ?F) 02/10/25 1240 Pulse 79 02/10/25 1240 Resp 18 02/10/25 1240 SpO2 97 % 02/10/25 1240 Anesthesia Post Evaluation Patient location during evaluation: PACU Patient participation: complete - patient participated Level of consciousness: awake and alert Pain management: satisfactory to patient Airway patency: patent Dental Injury: no Cardiovascular status: acceptable, blood pressure returned to baseline and hemodynamically stable Respiratory status: acceptable and spontaneous ventilation Hydration status: euvolemic Nausea/Vomiting: controlled No notable events documented. Patient can be discharged once all PACU criteria has been met.[facility]03-12-2025 Anesthesiology Postoperative evaluation and management note * Anesthesia Postprocedure Evaluation - RIGO Mora CRNA - 02/10/2025 12:46 PM EDT Patient: Sachi Grace Procedure Summary Date: 02/10/25 Room / Location: [place] [address] / [facility] Gastroenterology Anesthesia Start: 1200 Anesthesia Stop: 124 Procedure: ESOPHAGOSCOPIC ULTRASOUND EXAM Diagnosis: Other specified diseases of pancreas Providers: Quinten Franco MD Responsible Provider: Flaquito Pineda MD Anesthesia Type: TIVA ASA Status: 2 Anesthesia Type: TIVA Vitals Value Taken Time BP 120/60 02/10/25 1240 Temp 36.4 C (97.6 F) 02/10/25 1240 Pulse 79 02/10/25 1240 Resp 18 02/10/25 1240 SpO2 97 % 02/10/25 1240 Anesthesia Post Evaluation Patient location during evaluation: PACU Patient participation: complete - patient participated Level of consciousness: awake and alert Pain management: satisfactory to patient Airway patency: patent Two or more strategies used to mitigate risk of obstructive sleep apnea Cardiovascular status: acceptable and hemodynamically stable Respiratory status: acceptable Hydration status: acceptable No notable events documented. MIPS #430 PONV Patient did not receive an inhalational anesthetic (XX430) MIPS # 424 Perioperative Temperature Management Anesthesia time was less than 60 minutes (4256F) MIPS #477 Multimodal Pain Management Not emergent case Patient was not administered multimodal pain management (G2149) Patient reports no pain in PACU (G2149) MIPS #404 Anesthesiology Smoking Abstinence The patient is not a current smoker (e.g. cigarette, cigar, pipe, e- cigarette/vaping/marijuana) If no stop here (XX404) I completed my handoff to the receiving clinician during which we: 1. Identified the patient 2. Identified the responsible provider 3. Reviewed the pertinent medical history 4. Discussed the surgical course 5. Reviewed intra-op anesthesia management and issues during anesthesia 6. Set expectations for post-procedure period 7. Allowed opportunity for questions and acknowledgement of understanding. [facility]03-12-2025 NotePatient: Sachi Grace Procedure Summary Date: 02/10/25 Room / Location: [place] [address] / [facility] Gastroenterology Anesthesia Start: 1200 Anesthesia Stop: 1240 Procedure: ESOPHAGOSCOPIC ULTRASOUND EXAM Diagnosis: Other specified diseases of pancreas Providers: Quinten Franco MD Responsible Provider: Flaquito Pineda MD Anesthesia Type: TIVA ASA Status: 2 Anesthesia Type: TIVA Vitals Value Taken Time BP 120/60 02/10/25 1240 Temp 36.4 ?C (97.6 ?F) 02/10/25 1240 Pulse 79 02/10/25 1240 Resp 18 02/10/25 1240 SpO2 97 % 02/10/25 1240 Anesthesia Post Evaluation Patient location during evaluation: PACU Patient participation: complete - patient participated Level of consciousness: awake and alert Pain management: satisfactory to patient Airway patency: patent Two or more strategies used to mitigate risk of obstructive sleep apnea Cardiovascular status: acceptable and hemodynamically stable Respiratory status: acceptable Hydration status: acceptable No notable events documented. MIPS #430 PONV Patient did not receive an inhalational anesthetic (XX430) MIPS # 424 Perioperative Temperature Management Anesthesia time was less than 60 minutes (4256F) MIPS #477 Multimodal Pain Management Not emergent case Patient was not administered multimodal pain management (G2149) Patient reports no pain in PACU (G2149) MIPS #404 Anesthesiology Smoking Abstinence The patient is not a current smoker (e.g. cigarette, cigar, pipe, e-cigarette/vaping/marijuana) If no stop here (XX404) I completed my handoff to the receiving clinician during which we: 1. Identified the patient 2. Identified the responsible provider 3. Reviewed the pertinent medical history 4. Discussed the surgical course 5. Reviewed intra-op anesthesia management and issues during anesthesia 6. Set expectations for post-procedure period 7. Allowed opportunity for questions and acknowledgement of understanding.[facility]03-12-2025 Surgical operation note* Anesthesia Postprocedure Evaluation - Devin Zeng APRN - ANNA - 02/10/2025 12:46 PM EDT Patient: Sachi Grace Procedure Summary Date: 02/10/25 Room / Location: [facility] / [facility] Gastroenterology Anesthesia Start: 1201 Anesthesia Stop: 1240 Procedure: ESOPHAGOSCOPIC ULTRASOUND EXAM Diagnosis: Other specified diseases of pancreas Providers: Quinten Franco MD Responsible Provider: Flaquito Pineda MD Anesthesia Type: TIVA ASA Status: 2 Anesthesia Type: TIVA Vitals Value Taken Time BP 120/60 02/10/25 1240 Temp 36.4 C (97.6 F) 02/10/25 1240 Pulse 79 02/10/25 1240 Resp 18 02/10/25 1240 SpO2 97 % 02/10/25 1240 Anesthesia Post Evaluation Patient location during evaluation: PACU Patient participation: complete - patient participated Level of consciousness: awake and alert Pain management: satisfactory to patient Airway patency: patent Two or more strategies used to mitigate risk of obstructive sleep apnea Cardiovascular status: acceptable and hemodynamically stable Respiratory status: acceptable Hydration status: acceptable No notable events documented. MIPS #430 PONV Patient did not receive an inhalational anesthetic (XX430) MIPS # 424 Perioperative Temperature Management Anesthesia time was less than 60 minutes (4256F) MIPS #477 Multimodal Pain Management Not emergent case Patient was not administered multimodal pain management (G2149) Patient reports no pain in PACU (G2149) MIPS #404 Anesthesiology Smoking Abstinence The patient is not a current smoker (e.g. cigarette, cigar, pipe, e- cigarette/vaping/marijuana) If no stop here (XX404) I completed my handoff to the receiving clinician during which we: 1. Identified the patient 2. Identified the responsible provider 3. Reviewed the pertinent medical history 4. Discussed the surgical course 5. Reviewed intra-op anesthesia management and issues during anesthesia 6. Set expectations for post-procedure period 7. Allowed opportunity for questions and acknowledgement of understanding. * Anesthesia Preprocedure Evaluation - RIGO Mora CRNA - 02/10/2025 11:27 AM EDT Patient: Sachi Grace Procedure Information Date/Time: 02/10/25 1130 Procedure: ESOPHAGOSCOPIC ULTRASOUND EXAM Location: [place] [address] / [facility] Gastroenterology Providers: Quinten Franco MD Relevant Problems Cardio (+) Hyperlipidemia LDL goal <130 (+) Paroxysmal supraventricular tachycardia (HCC) Endo (+) Hypothyroidism Neuro/Psych (+) Generalized anxiety disorder Pulmonary (+) Mild intermittent asthma without complication Past Medical History: Past Medical History: No date: Asthma No date: Fibromyalgia No date: Thyroid activity decreased Past Surgical History: Past Surgical History: No date: APPENDECTOMY No date: ARM SURGERY (HISTORICAL) No date: CARPAL TUNNEL RELEASE; Bilateral No date: CHOLECYSTECTOMY No date: COLON SURGERY No date: ROTATOR CUFF REPAIR No date: TOTAL KNEE ARTHROPLASTY; Bilateral Social History: TOBACCO: reports that she has never smoked. She has never used smokeless tobacco. ETOH: reports no history of alcohol use. Social History Substance and Sexual Activity Drug Use Never Family History: No family history on file. Screening: Postmenopausal Clinical information reviewed: Tobacco Allergies Meds Med Hx Surg Hx OB Status Fam Hx Soc Hx Physical Exam Airway Mallampati: II TM distance: >3 FB Neck ROM: full Mouth Open: normal Cardiovascular Dental (+) Upper Partials, Poor Pulmonary Abdominal Anesthesia Plan patient is NPO appropriate Any family history or previous problems with anesthesia no ASA 2 TIVA Any family history or previous problems with anesthesia no The patient is not a current smoker. Anesthetic plan and risks discussed with patient. LILIBETH Screening Labs: No results found for: WBC, HGB, HCT, MCV, PLT No results found for: SODIUM, NA, POTASSIUM, K, CHLORIDE, CL, CO2, BUN, CREATININE, GLUCOSE, CALCIUM, PROT, BILIRUBINFL, ALKPHOS, AST, ALT, EGFR, GLOB No echocardiogram results found for the past 14 days No results found for this or any previous visit. Equipment Requests: Additional Equipment Requests documented in this [facility]03-12-2025 History and physical note* Quinten Franco MD - 02/10/2025 11:49 AM EDT Images from the original note were not included. GASTROENTEROLOGY PREPROCEDURE H&P 02/10/2025 Patient: Sachi Grace : 1935 Primary Care Physician: No primary care provider on file. HISTORY OF PRESENT ILLNESS: Sachi Grace is a 89 y.o. female who is referred by [facility] for further evaluation with EUSof a pancreatic mass seen on MRI. She reports a 2-3 month history of abdominal pain, nausea, and weight loss. No jaundice or elevated LFTs. REVIEW OF SYSTEMS: A complete 10 point review of systems was obtained. Please see the HPI for pertinent positives and negatives. All other systems reviewed were found to be negative or noncontributory. PAST MEDICAL HISTORY: Past Medical History: Diagnosis Date Asthma Fibromyalgia Thyroid activity decreased PAST SURGICAL HISTORY: Past Surgical History: Procedure Laterality Date APPENDECTOMY ARM SURGERY (HISTORICAL) CARPAL TUNNEL RELEASE Bilateral CHOLECYSTECTOMY COLON SURGERY ROTATOR CUFF REPAIR TOTAL KNEE ARTHROPLASTY Bilateral SOCIAL HISTORY: TOBACCO: reports that she has never smoked. She has never used smokeless tobacco. ETOH: reports no history of alcohol use. DRUGS: reports no history of drug use. FAMILY HISTORY: No family history on file. MEDICATIONS: Prior to Admission medications Medication Sig Start Date End Date Taking? Authorizing Provider acetaminophen (Tylenol) 500 MG tablet Take 500 mg by mouth if needed. Yes Historical Provider, clonazePAM (KlonoPIN) 0.5 MG tablet Take 0.5 mg by mouth Nightly as needed. Yes Historical Provider, fluticasone sensor, (ArmonAir Digihaler) 232 MCG/ACT inhaler Inhale 1 puff twice a day. 03/24/24 Yes Historical Provider, levalbuterol (Xopenex) 45 MCG/ACT inhaler Inhale 1-2 puffs every 4 hours as needed. 03/24/24 Yes Historical Provider, levothyroxine (Synthroid, Levoxyl) 50 MCG tablet Take 50 mcg by mouth. 05/01/24 Yes Historical Provider, nortriptyline (Pamelor) 10 MG capsule Take 10 mg by mouth Nightly. Yes Historical Provider, rOPINIRole (Requip) 0.5 MG tablet Take 0.5 mg by mouth Once. Yes Historical Provider, B Gvqplnq-Cfvzhj-BJ (GNP B-100 Complex) tablet controlled-release Take 100 mg by mouth daily. Patient not taking: Reported on 02/10/2025 08/21/24 08/21/25 Historical Provider, cholecalciferol (D 1000) 25 MCG (1000 UT) capsule Take 1,000 Units by mouth daily. Patient not taking: Reported on 02/10/2025 Historical Provider, No current facility-administered medications for this encounter. ALLERGIES: Allergies Allergen Reactions Sulfa Antibiotics Hives and Swelling lips swelled up Hydrocodone-Acetaminophen Other and Nausea Only Buspirone Other Anxious, jittery, felt worse, RLS worse. Codeine Other and Swelling Swelling of lips Oxycodone-Acetaminophen Other and Nausea Only Pantoprazole Other Bloating, constipation, increase in abd pain Tetracyclines & Related Other and Nausea Only Cocamidopropyl Betaine Rash itching, rash OBJECTIVE: Vitals: Blood pressure (!) 146/83, pulse 86, temperature 36.4 C (97.6 F), temperature source Temporal, resp. rate 18, height 5' 1 (1.549 m), weight 125 lb (56.7 kg), SpO2 97%. General appearance: Alert and oriented, NAD, conversational HEENT: NC/AT, PERRL, sclera anicteric Neck: Supple, normal ROM Respiratory: Normal respiratory effort. CTA Cardiovascular: Regular rate and rhythm Abdomen: Soft, non-tender, non-distended Skin: Skin color, texture, turgor normal. No rashes or lesions. Neurologic: Grossly intact LABS: Reviewed IMAGING/PROCEDURES Reviewed ASSESSMENT Sachi Grace is a 89 y.o. 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 Here for EUS PLAN EGD/EUS The benefits, alternatives, and risks of the procedure(s) including (but not exclusive to) pain, sore throat, bleeding, perforation, infection, nausea, vomiting, aspiration, hypoxia/hypotension/allergic reaction(s) due to sedatives, phlebitis, need for hospitalization, need for transfusions, need for antibiotic therapy, need for surgery, and likelihood of missing a lesion, were explained to the patient/guardian/responsible accompanying adult who is agreeable. Quinten Franco MD [employer] Phone: [phone] 749-464703-12-2025 NoteGASTROENTEROLOGY PREPROCEDURE H&P 02/10/2025 Patient: Sachi Grace : 1935 Primary Care Physician: No primary care provider on file. HISTORY OF PRESENT ILLNESS: Sachi Grace is a 89 y.o. female who is referred by [facility] for further evaluation with EUS of a pancreatic mass seen on MRI. She reports a 2-3 month history of abdominal pain, nausea, and weight loss. No jaundice or elevated LFTs. REVIEW OF SYSTEMS: A complete 10 point review of systems was obtained. Please see the HPI for pertinent positives and negatives. All other systems reviewed were found to be negative or noncontributory. PAST MEDICAL HISTORY: Past Medical History: Diagnosis Date Asthma Fibromyalgia Thyroid activity decreased PAST SURGICAL HISTORY: Past Surgical History: Procedure Laterality Date APPENDECTOMY ARM SURGERY (HISTORICAL) CARPAL TUNNEL RELEASE Bilateral CHOLECYSTECTOMY COLON SURGERY ROTATOR CUFF REPAIR TOTAL KNEE ARTHROPLASTY Bilateral SOCIAL HISTORY: TOBACCO: reports that she has never smoked. She has never used smokeless tobacco. ETOH: reports no history of alcohol use. DRUGS: reports no history of drug use. FAMILY HISTORY: No family history on file. MEDICATIONS: Prior to Admission medications Medication Sig Start Date End Date Taking? Authorizing Provider acetaminophen (Tylenol) 500 MG tablet Take 500 mg by mouth if needed. Yes Historical Provider, clonazePAM (KlonoPIN) 0.5 MG tablet Take 0.5 mg by mouth Nightly as needed. Yes Historical Provider, fluticasone sensor, (ArmonAir Digihaler) 232 MCG/ACT inhaler Inhale 1 puff twice a day. 03/24/24 Yes Historical Provider, levalbuterol (Xopenex) 45 MCG/ACT inhaler Inhale 1-2 puffs every 4 hours as needed. 03/24/24 Yes Historical Provider, levothyroxine (Synthroid, Levoxyl) 50 MCG tablet Take 50 mcg by mouth. 05/01/24 Yes Historical Provider, nortriptyline (Pamelor) 10 MG capsule Take 10 mg by mouth Nightly. Yes Historical Provider, rOPINIRole (Requip) 0.5 MG tablet Take 0.5 mg by mouth Once. Yes Historical Provider, B Skliygj-Dkpnzm-QA (GNP B-100 Complex) tablet controlled-release Take 100 mg by mouth daily. Patient not taking: Reported on 02/10/2025 08/21/24 08/21/25 Historical Provider, cholecalciferol (D 1000) 25 MCG (1000 UT) capsule Take 1,000 Units by mouth daily. Patient not taking: Reported on 02/10/2025 Historical Provider, No current facility-administered medications for this encounter. ALLERGIES: Allergies Allergen Reactions Sulfa Antibiotics Hives and Swelling lips swelled up Hydrocodone-Acetaminophen Other and Nausea Only Buspirone Other Anxious, jittery, felt worse, RLS worse. Codeine Other and Swelling Swelling of lips Oxycodone-Acetaminophen Other and Nausea Only Pantoprazole Other Bloating, constipation, increase in abd pain Tetracyclines & Related Other and Nausea Only Cocamidopropyl Betaine Rash itching, rash OBJECTIVE: Vitals: Blood pressure (!) 146/83, pulse 86, temperature 36.4 ?C (97.6 ?F), temperature source Temporal, resp. rate 18, height 5' 1 (1.549 m), weight 125 lb (56.7 kg), SpO2 97%. General appearance: Alert and oriented, NAD, conversational HEENT: NC/AT, PERRL, sclera anicteric Neck: Supple, normal ROM Respiratory: Normal respiratory effort. CTA Cardiovascular: Regular rate and rhythm Abdomen: Soft, non-tender, non-distended Skin: Skin color, texture, turgor normal. No rashes or lesions. Neurologic: Grossly intact LABS: Reviewed IMAGING/PROCEDURES Reviewed ASSESSMENT Sachi Grace is a 89 y.o. 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 Here for EUS PLAN EGD/EUS The benefits, alternatives, and risks of the procedure(s) including (but not exclusive to) pain, sore throat, bleeding, perforation, infection, nausea, vomiting, aspiration, hypoxia/hypotension/allergic reaction(s) due to sedatives, phlebitis, need for hospitalization, need for transfusions, need for antibiotic therapy, need for surgery, and likelihood of missing a lesion, were explained to the patient/guardian/responsible accompanying adult who is agreeable. Quinten Franco [facility]03-12-2025 History and physical note* Quinten Franco MD - 02/10/2025 11:49 AM EDT Images from the original note were not included. GASTROENTEROLOGY PREPROCEDURE H&P 02/10/2025 Patient: Sachi Grace : 1935 Primary Care Physician: No primary care provider on file. HISTORY OF PRESENT ILLNESS: Sachi Grace is a 89 y.o. female who is referred by [facility] for further evaluation with EUSof a pancreatic mass seen on MRI. She reports a 2-3 month history of abdominal pain, nausea, and weight loss. No jaundice or elevated LFTs. REVIEW OF SYSTEMS: A complete 10 point review of systems was obtained. Please see the HPI for pertinent positives and negatives. All other systems reviewed were found to be negative or noncontributory. PAST MEDICAL HISTORY: Past Medical History: Diagnosis Date Asthma Fibromyalgia Thyroid activity decreased PAST SURGICAL HISTORY: Past Surgical History: Procedure Laterality Date APPENDECTOMY ARM SURGERY (HISTORICAL) CARPAL TUNNEL RELEASE Bilateral CHOLECYSTECTOMY COLON SURGERY ROTATOR CUFF REPAIR TOTAL KNEE ARTHROPLASTY Bilateral SOCIAL HISTORY: TOBACCO: reports that she has never smoked. She has never used smokeless tobacco. ETOH: reports no history of alcohol use. DRUGS: reports no history of drug use. FAMILY HISTORY: No family history on file. MEDICATIONS: Prior to Admission medications Medication Sig Start Date End Date Taking? Authorizing Provider acetaminophen (Tylenol) 500 MG tablet Take 500 mg by mouth if needed. Yes Historical Provider, clonazePAM (KlonoPIN) 0.5 MG tablet Take 0.5 mg by mouth Nightly as needed. Yes Historical Provider, fluticasone sensor, (ArmonAir Digihaler) 232 MCG/ACT inhaler Inhale 1 puff twice a day. 03/24/24 Yes Historical Provider, levalbuterol (Xopenex) 45 MCG/ACT inhaler Inhale 1-2 puffs every 4 hours as needed. 03/24/24 Yes Historical Provider, levothyroxine (Synthroid, Levoxyl) 50 MCG tablet Take 50 mcg by mouth. 05/01/24 Yes Historical Provider, nortriptyline (Pamelor) 10 MG capsule Take 10 mg by mouth Nightly. Yes Historical Provider, rOPINIRole (Requip) 0.5 MG tablet Take 0.5 mg by mouth Once. Yes Historical Provider, B Xfjxcpk-Pcmgzs-IK (GNP B-100 Complex) tablet controlled-release Take 100 mg by mouth daily. Patient not taking: Reported on 02/10/2025 08/21/24 08/21/25 Historical Provider, cholecalciferol (D 1000) 25 MCG (1000 UT) capsule Take 1,000 Units by mouth daily. Patient not taking: Reported on 02/10/2025 Historical Provider, No current facility-administered medications for this encounter. ALLERGIES: Allergies Allergen Reactions Sulfa Antibiotics Hives and Swelling lips swelled up Hydrocodone-Acetaminophen Other and Nausea Only Buspirone Other Anxious, jittery, felt worse, RLS worse. Codeine Other and Swelling Swelling of lips Oxycodone-Acetaminophen Other and Nausea Only Pantoprazole Other Bloating, constipation, increase in abd pain Tetracyclines & Related Other and Nausea Only Cocamidopropyl Betaine Rash itching, rash OBJECTIVE: Vitals: Blood pressure (!) 146/83, pulse 86, temperature 36.4 C (97.6 F), temperature source Temporal, resp. rate 18, height 5' 1 (1.549 m), weight 125 lb (56.7 kg), SpO2 97%. General appearance: Alert and oriented, NAD, conversational HEENT: NC/AT, PERRL, sclera anicteric Neck: Supple, normal ROM Respiratory: Normal respiratory effort. CTA Cardiovascular: Regular rate and rhythm Abdomen: Soft, non-tender, non-distended Skin: Skin color, texture, turgor normal. No rashes or lesions. Neurologic: Grossly intact LABS: Reviewed IMAGING/PROCEDURES Reviewed ASSESSMENT Sachi Grace is a 89 y.o. 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 Here for EUS PLAN EGD/EUS The benefits, alternatives, and risks of the procedure(s) including (but not exclusive to) pain, sore throat, bleeding, perforation, infection, nausea, vomiting, aspiration, hypoxia/hypotension/allergic reaction(s) due to sedatives, phlebitis, need for hospitalization, need for transfusions, need for antibiotic therapy, need for surgery, and likelihood of missing a lesion, were explained to the patient/guardian/responsible accompanying adult who is agreeable. Quinten Franco MD documented in this [facility]03-12-2025 [facility] Name: Sachi Grace Procedure Date: 02/10/2025 11:46 AM Gender: Female Date of : 1935 Age: 89 Admit Type: Outpatient Note Status: Finalized Endoscopist: Quinten Franco MD, [id number] Procedure: Upper EUS Indications: Suspected mass in pancreas on CT scan This is an 89 y/o F who has been having abdominal pain, nausea and weight loss since November. She had MRI abd/pelvis for further evaluation with findings of a suspected mass in the head of the pancreas. No prior h/o pancreatitis and no known FH of pancreatic cancer. She is referred for EUS. Findings: ENDOSCOPIC FINDING: : The examined esophagus was normal. There is no endoscopic evidence of Burrell's esophagus, esophagitis, stenosis or ulcerations in the entire esophagus. The Z-line was regular and was found 40 cm from the incisors. The entire examined stomach was normal. There is no endoscopic evidence of bleeding, ulceration or tumor in the stomach. The duodenal bulb, first portion of the duodenum and second portion of the duodenum were normal. ENDOSONOGRAPHIC FINDING: : A round mass was identified in the pancreatic head. The mass was hypoechoic, with mixed solid and cystic components. The mass measured 35 mm by 36 mm in maximal cross-sectional diameter. The endosonographic borders were well-defined. There was sonographic evidence suggesting invasion into the superior mesenteric artery (manifested by encasement), the portal vein (manifested by encasement) and the superior mesenteric vein (manifested by interface loss greater than or equal to 15 mm). The remainder of the pancreas was examined. The endosonographic appearance of parenchyma and the upstream pancreatic duct indicated duct dilation, a maximum duct diameter of 6 mm and parenchymal atrophy. Fine needle biopsy was performed. Color Doppler imaging was utilized prior to needle puncture to confirm a lack of significant vascular structures within the needle path. Five passes were made with the 22 gauge Acquire biopsy needle using a transduodenal approach. A visible core of tissue was obtained. Preliminary cytologic examination and touch preps were performed. Preliminary cytology is suspicious for malignancy (final results are pending). Verification of patient identification for the specimen was done. Estimated blood loss was minimal. There was no sign of significant endosonographic abnormality in the common bile duct. The maximum diameter of the duct was 6 mm. An unremarkable gallbladder was identified. There was no sign of significant endosonographic abnormality in the visualized portion of the liver. No focal pathology was identified. No abdominal lymphadenopathy was seen. Impression: - Normal esophagus. - Z-line regular, 40 cm from the incisors. - Normal stomach. - Normal duodenal bulb, first portion of the duodenum and second portion of the duodenum. 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 This was staged T4 by endosonographic criteria. Fine needle biopsy performed. - There is upstream ductal dilation and pancreatic atrophy. - There was no evidence of significant pathology in the visualized portion of the liver. - No biliary ductal dilation. - No abdominal lymphadenopathy was seen Recommendation: - The patient will be observed post-procedure, until all discharge criteria are met. - Discharge patient to home. - Observe patient's clinical course following today's procedure with therapeutic intervention. - Watch for complications post-procedure, including fevers, infection, bleeding and perforation. - Resume regular diet today. - Continue present medications. - Await cytology results. - Return to JOSE Shane in the GI clinic at appointment to be scheduled for follow-up. - Follow-up with your PCP. - The findings and recommendations were discussed with the patient and their family. - Patient has a contact number available for emergencies. The signs and symptoms of potential delayed complications were discussed with the patient. Return to normal activities tomorrow. Written discharge instructions were provided to the patient. Referring MD: JOSE Shane, Anitra Mancera Medicines: Monitored Anesthesia Care Procedure: Pre-Anesthesia Assessment: - Prior to the procedure, a History and Physical was performed, and patient medications and allergies were reviewed. The patient's tolerance of previous anesthesia was also reviewed. The risks and benefits of the procedure and the sedation options and risks were discussed with the patient. All questions were answered, and informed consent was obtained. Prior Anticoagulants: The patient has taken no anticoagulant or antiplatelet agents. ASA Grade Assessment: III - (more content not included)... [facility]03-12-2025 Procedure note* Op Note - Quinten Franco MD - 02/10/2025 11:46 AM [facility] Name: Sachi Grace Procedure Date: 02/10/2025 11:46 AM Gender: Female Date of : 1935 Age: 89 Admit Type: Outpatient Note Status: Finalized Endoscopist: Quinten Fracno MD, [id number] Procedure: Upper EUS Indications: Suspected mass in pancreas on CT scan This is an 89 y/o F who has been having abdominal pain, nausea and weight loss since November. She had MRI abd/pelvis for further evaluation with findings of a suspected mass in the head of the pancreas. No prior h/o pancreatitis and no known FH of pancreatic cancer. She is referred for EUS. Findings: ENDOSCOPIC FINDING: : The examined esophagus was normal. There is no endoscopic evidence of Burrell's esophagus, esophagitis, stenosis or ulcerations in the entire esophagus. The Z-line was regular and was found 40 cm from the incisors. The entire examined stomach was normal. There is no endoscopic evidence of bleeding, ulceration or tumor in the stomach. The duodenal bulb, first portion of the duodenum and second portion of the duodenum were normal. ENDOSONOGRAPHIC FINDING: : A round mass was identified in the pancreatic head. The mass was hypoechoic, with mixed solid and cystic components. The mass measured 35 mm by 36 mm in maximal cross-sectional diameter. The endosonographic borders were well-defined. There was sonographic evidence suggesting invasion into the superior mesenteric artery (manifested by encasement), the portal vein (manifested by encasement) and the superior mesenteric vein (manifested by interface loss greater than or equal to 15 mm). The remainder of the pancreas was examined. The endosonographic appearance of parenchyma and the upstream pancreatic duct indicated duct dilation, a maximum duct diameter of 6 mm and parenchymal atrophy. Fine needle biopsy was performed. Color Doppler imaging was utilized prior to needle puncture to confirm a lack of significant vascular structures within the needle path. Five passes were made with the 22 gauge Acquire biopsy needle using a transduodenal approach. A visible core of tissue was obtained. Preliminary cytologic examination and touch preps were performed. Preliminary cytology is suspicious for malignancy (final results are pending). Verification of patient identification for the specimen was done. Estimated blood loss was minimal. There was no sign of significant endosonographic abnormality in the common bile duct. The maximum diameter of the duct was 6 mm. An unremarkable gallbladder was identified. There was no sign of significant endosonographic abnormality in the visualized portion of the liver. No focal pathology was identified. No abdominal lymphadenopathy was seen. Impression: - Normal esophagus. - Z-line regular, 40 cm from the incisors. - Normal stomach. - Normal duodenal bulb, first portion of the duodenum and second portion of the duodenum. 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 This was staged T4 by endosonographic criteria. Fine needle biopsy performed. - There is upstream ductal dilation and pancreatic atrophy. - There was no evidence of significant pathology in the visualized portion of the liver. - No biliary ductal dilation. - No abdominal lymphadenopathy was seen Recommendation: - The patient will be observed post-procedure, until all discharge criteria are met. - Discharge patient to home. - Observe patient's clinical course following today's procedure with therapeutic intervention. - Watch for complications post-procedure, including fevers, infection, bleeding and perforation. - Resume regular diet today. - Continue present medications. - Await cytology results. - Return to JOSE Shane in the GI clinic at appointment to be scheduled for follow-up. - Follow-up with your PCP. - The findings and recommendations were discussed with the patient and their family. - Patient has a contact number available for emergencies. The signs and symptoms of potential delayed complications were discussed with the patient. Return to normal activities tomorrow. Written discharge instructions were provided to the patient. Referring MD: JOSE Shane, Anitra Mancera Medicines: Monitored Anesthesia Care Procedure: Pre-Anesthesia Assessment: - Prior to the procedure, a History and Physical was performed, and patient medications and allergies were reviewed. The patient's tolerance of previous anesthesia was also reviewed. The risks and benefits of the procedure and the sedation options and risks were discussed with the patient. All questions were answered, and informed consent was obtained. Prior Anticoagulants: The patient has taken no anticoagulant or antiplatelet agents. ASA Grade Assessment: III - A patient with severe systemic disease. After reviewing the risks and benefits, the patient was deemed in satisfactory condition to undergo the procedure. After obtaining informed consent, the endoscope was passed under direct vision. Throughout the procedure, the patient's blood pressure, pulse, and oxygen saturations were monitored continuously. The Endoscope was introduced through the mouth, and advanced to the second part of duodenum. The Endosonoscope was introduced through the mouth, and advanced to the second part of duodenum. After obtaining informed consent, the endoscope was passed under direct vision. Throughout the procedure, the patient's blood pressure, pulse, and oxygen saturations were monitored continuously.The upper EUS was accomplished without difficulty. The patient tolerated the procedure well. Complications: No immediate complications. Procedure Code(s): --- Professional --- 67126, Esophagogastroduodenoscopy, flexible, transoral; with transendoscopic ultrasound-guided intramural or transmural fine needle aspiration/biopsy(s) (includes endoscopic ultrasound examination of the esophagus, stomach, and either the duodenum or a surgically altered stomach where the jejunum is examined distal to the anastomosis) --- Technical --- 28231, Esophagogastroduodenoscopy, flexible, transoral; with transendoscopic ultrasound-guided intramural or transmural fine needle aspiration/biopsy(s) (includes endoscopic ultrasound examination of the esophagus, stomach, and either the duodenum or a surgically altered stomach where the jejunum is examined distal to the anastomosis) Diagnosis Code(s): --- Professional --- K86.89, Other specified diseases of pancreas R93.3, Abnormal findings on diagnostic imaging of other parts of digestive tract --- Technical --- K86.89, Other specified diseases of pancreas R93.3, Abnormal findings on diagnostic imaging of other parts of digestive tract CPT copyright 2021 [employer]. All rights reserved. The codes documented in this report are preliminary and upon business objects consultant review may be revised to meet current compliance requirements. Attending Participation: I personally performed the entire procedure. Quinten Franco MD 02/10/2025 12:54:01 PM This report has been signed electronically. Number of Addenda: 0 Note Initiated On: 02/10/2025 11:46 AM [id number] Miscellaneous Notes* Op Note - Quinten Franco MD - 02/10/2025 11:46 AM EDT [facility] Patient Name: Sachi Grace Procedure Date: 02/10/2025 11:46 AM Gender: Female Date of : 1935 Age: 89 Admit Type: Outpatient Note Status: Finalized Endoscopist: Quinten Franco MD, [id number] Procedure: Upper EUS Indications: Suspected mass in pancreas on CT scan This is an 89 y/o F who has been having abdominal pain, nausea and weight loss since November. She had MRI abd/pelvis for further evaluation with findings of a suspected mass in the head of the pancreas. No prior h/o pancreatitis and no known FH of pancreatic cancer. She is referred for EUS. Findings: ENDOSCOPIC FINDING: : The examined esophagus was normal. There is no endoscopic evidence of Burrell's esophagus, esophagitis, stenosis or ulcerations in the entire esophagus. The Z-line was regular and was found 40 cm from the incisors. The entire examined stomach was normal. There is no endoscopic evidence of bleeding, ulceration or tumor in the stomach. The duodenal bulb, first portion of the duodenum and second portion of the duodenum were normal. ENDOSONOGRAPHIC FINDING: : A round mass was identified in the pancreatic head. The mass was hypoechoic, with mixed solid and cystic components. The mass measured 35 mm by 36 mm in maximal cross-sectional diameter. The endosonographic borders were well-defined. There was sonographic evidence suggesting invasion into the superior mesenteric artery (manifested by encasement), the portal vein (manifested by encasement) and the superior mesenteric vein (manifested by interface loss greater than or equal to 15 mm). The remainder of the pancreas was examined. The endosonographic appearance of parenchyma and the upstream pancreatic duct indicated duct dilation, a maximum duct diameter of 6 mm and parenchymal atrophy. Fine needle biopsy was performed. Color Doppler imaging was utilized prior to needle puncture to confirm a lack of significant vascular structures within the needle path. Five passes were made with the 22 gauge Acquire biopsy needle using a transduodenal approach. A visible core of tissue was obtained. Preliminary cytologic examination and touch preps were performed. Preliminary cytology is suspicious for malignancy (final results are pending). Verification of patient identification for the specimen was done. Estimated blood loss was minimal. There was no sign of significant endosonographic abnormality in the common bile duct. The maximum diameter of the duct was 6 mm. An unremarkable gallbladder was identified. There was no sign of significant endosonographic abnormality in the visualized portion of the liver. No focal pathology was identified. No abdominal lymphadenopathy was seen. Impression: - Normal esophagus. - Z-line regular, 40 cm from the incisors. - Normal stomach. - Normal duodenal bulb, first portion of the duodenum and second portion of the duodenum. 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 This was staged T4 by endosonographic criteria. Fine needle biopsy performed. - There is upstream ductal dilation and pancreatic atrophy. - There was no evidence of significant pathology in the visualized portion of the liver. - No biliary ductal dilation. - No abdominal lymphadenopathy was seen Recommendation: - The patient will be observed post-procedure, until all discharge criteria are met. - Discharge patient to home. - Observe patient's clinical course following today's procedure with therapeutic intervention. - Watch for complications post-procedure, including fevers, infection, bleeding and perforation. - Resume regular diet today. - Continue present medications. - Await cytology results. - Return to JOSE Shane in the GI clinic at appointment to be scheduled for follow-up. - Follow-up with your PCP. - The findings and recommendations were discussed with the patient and their family. - Patient has a contact number available for emergencies. The signs and symptoms of potential delayed complications were discussed with the patient. Return to normal activities tomorrow. Written discharge instructions were provided to the patient. Referring MD: JOSE Shane, Anitra Mancera Medicines: Monitored Anesthesia Care Procedure: Pre-Anesthesia Assessment: - Prior to the procedure, a History and Physical was performed, and patient medications and allergies were reviewed. The patient's tolerance of previous anesthesia was also reviewed. The risks and benefits of the procedure and the sedation options and risks were discussed with the patient. All questions were answered, and informed consent was obtained. Prior Anticoagulants: The patient has taken no anticoagulant or antiplatelet agents. ASA Grade Assessment: III - A patient with severe systemic disease. After reviewing the risks and benefits, the patient was deemed in satisfactory condition to undergo the procedure. After obtaining informed consent, the endoscope was passed under direct vision. Throughout the procedure, the patient's blood pressure, pulse, and oxygen saturations were monitored continuously. The Endoscope was introduced through the mouth, and advanced to the second part of duodenum. The Endosonoscope was introduced through the mouth, and advanced to the second part of duodenum. After obtaining informed consent, the endoscope was passed under direct vision. Throughout the procedure, the patient's blood pressure, pulse, and oxygen saturations were monitored continuously.The upper EUS was accomplished without difficulty. The patient tolerated the procedure well. Complications: No immediate complications. Procedure Code(s): --- Professional --- 27829, Esophagogastroduodenoscopy, flexible, transoral; with transendoscopic ultrasound-guided intramural or transmural fine needle aspiration/biopsy(s) (includes endoscopic ultrasound examination of the esophagus, stomach, and either the duodenum or a surgically altered stomach where the jejunum is examined distal to the anastomosis) --- Technical --- 68070, Esophagogastroduodenoscopy, flexible, transoral; with transendoscopic ultrasound-guided intramural or transmural fine needle aspiration/biopsy(s) (includes endoscopic ultrasound examination of the esophagus, stomach, and either the duodenum or a surgically altered stomach where the jejunum is examined distal to the anastomosis) Diagnosis Code(s): --- Professional --- K86.89, Other specified diseases of pancreas R93.3, Abnormal findings on diagnostic imaging of other parts of digestive tract --- Technical --- K86.89, Other specified diseases of pancreas R93.3, Abnormal findings on diagnostic imaging of other parts of digestive tract CPT copyright 2021 [employer]. All rights reserved. The codes documented in this report are preliminary and upon business objects consultant review may be revised to meet current compliance requirements. Attending Participation: I personally performed the entire procedure. Quinten Franco MD 02/10/2025 12:54:01 PM This report has been signed electronically. Number of Addenda: 0 Note Initiated On: 02/10/2025 11:46 AM documented in this [facility]03-12-2025 Anesthesiology Preoperative evaluation and management note* Anesthesia Preprocedure Evaluation - Devin Zeng APRN - TEST DESIGN ENGINEER - 02/10/2025 11:27 AM EDT Patient: Sachi Grace Procedure Information Date/Time: 02/10/25 1130 Procedure: ESOPHAGOSCOPIC ULTRASOUND EXAM Location: [place] [address] / [facility] Gastroenterology Providers: Quinten Franco MD Relevant Problems Cardio (+) Hyperlipidemia LDL goal <130 (+) Paroxysmal supraventricular tachycardia (HCC) Endo (+) Hypothyroidism Neuro/Psych (+) Generalized anxiety disorder Pulmonary (+) Mild intermittent asthma without complication Past Medical History: Past Medical History: No date: Asthma No date: Fibromyalgia No date: Thyroid activity decreased Past Surgical History: Past Surgical History: No date: APPENDECTOMY No date: ARM SURGERY (HISTORICAL) No date: CARPAL TUNNEL RELEASE; Bilateral No date: CHOLECYSTECTOMY No date: COLON SURGERY No date: ROTATOR CUFF REPAIR No date: TOTAL KNEE ARTHROPLASTY; Bilateral Social History: TOBACCO: reports that she has never smoked. She has never used smokeless tobacco. ETOH: reports no history of alcohol use. Social History Substance and Sexual Activity Drug Use Never Family History: No family history on file. Screening: Postmenopausal Clinical information reviewed: Tobacco Allergies Meds Med Hx Surg Hx OB Status Fam Hx Soc Hx Physical Exam Airway Mallampati: II TM distance: >3 FB Neck ROM: full Mouth Open: normal Cardiovascular Dental (+) Upper Partials, Poor Pulmonary Abdominal Anesthesia Plan patient is NPO appropriate Any family history or previous problems with anesthesia no ASA 2 TIVA Any family history or previous problems with anesthesia no The patient is not a current smoker. Anesthetic plan and risks discussed with patient. LILIBETH Screening Labs: No results found for: WBC, HGB, HCT, MCV, PLT No results found for: SODIUM, NA, POTASSIUM, K, CHLORIDE, CL, CO2, BUN, CREATININE, GLUCOSE, CALCIUM, PROT, BILIRUBINFL, ALKPHOS, AST, ALT, EGFR, GLOB No echocardiogram results found for the past 14 days No results found for this or any previous visit. Equipment Requests: Additional Equipment Requests [facility] [id number] NotePatient: Sachi Grace Procedure Information Date/Time: 02/10/25 1130 Procedure: ESOPHAGOSCOPIC ULTRASOUND EXAM Location: [place] [address] / [facility] Gastroenterology Providers: Quinten Franco MD Relevant Problems Cardio (+) Hyperlipidemia LDL goal <130 (+) Paroxysmal supraventricular tachycardia (HCC) Endo (+) Hypothyroidism Neuro/Psych (+) Generalized anxiety disorder Pulmonary (+) Mild intermittent asthma without complication Past Medical History: Past Medical History: No date: Asthma No date: Fibromyalgia No date: Thyroid activity decreased Past Surgical History: Past Surgical History: No date: APPENDECTOMY No date: ARM SURGERY (HISTORICAL) No date: CARPAL TUNNEL RELEASE; Bilateral No date: CHOLECYSTECTOMY No date: COLON SURGERY No date: ROTATOR CUFF REPAIR No date: TOTAL KNEE ARTHROPLASTY; Bilateral Social History: TOBACCO: reports that she has never smoked. She has never used smokeless tobacco. ETOH: reports no history of alcohol use. Social History Substance and Sexual Activity Drug Use Never Family History: No family history on file. Screening: Postmenopausal Clinical information reviewed: Tobacco Allergies Meds Med Hx Surg Hx OB Status Fam Hx Soc Hx Physical Exam Airway Mallampati: II TM distance: >3 FB Neck ROM: full Mouth Open: normal Cardiovascular Dental (+) Upper Partials, Poor Pulmonary Abdominal Anesthesia Plan patient is NPO appropriate Any family history or previous problems with anesthesia no ASA 2 TIVA Any family history or previous problems with anesthesia no The patient is not a current smoker. Anesthetic plan and risks discussed with patient. LILIBETH Screening Labs: No results found for: WBC, HGB, HCT, MCV, PLT No results found for: SODIUM, NA, POTASSIUM, K, CHLORIDE, CL, CO2, BUN, CREATININE, GLUCOSE, CALCIUM, PROT, BILIRUBINFL, ALKPHOS, AST, ALT, EGFR, GLOB No echocardiogram results found for the past 14 days No results found for this or any previous visit. Equipment [facility]s: [facility] Telephone encounter Note* Telephone Encounter - Anitra Mancera APRN.CNP - 01/22/2025 5:23 PM EST MRI results reviewed with her. Concerning cyst and solid- possible cancer. [facility] referring her somewhere in [place]. Appreciates call. [facility]02-21-2025 Miscellaneous Notes* Telephone Encounter - Anitra Mancera APRN.CNP - 01/22/2025 5:23 PM EST MRI results reviewed with her. Concerning cyst and solid- possible cancer. [facility] referring herto somewhere in [place]. Appreciates call. * Telephone Encounter - Zulma Benites MA - 01/22/2025 5:12 PM EST MRI results scanned * Telephone Encounter - Alix Garcia RN - 01/22/2025 4:18 PM EST Pt called in asking about MRI results. I let her know providers office has not received them yet. She states they told her they have sent them twice. She states she will call them to send them again. * Telephone Encounter - Zulma Benites MA - 01/21/2025 4:54 PM EST Office did not receive records from TAYLOR Benites MA January 21, 2025 4:55 PM * Telephone Encounter - Halima Hernandez - 01/21/2025 4:08 PM EST Patient is calling stating she seen [facility] and they are stating patient is tocall PCP office for additional testing and they was to fax notes to our office. Please advise [facility] Telephone encounter Note * Telephone Encounter - Zulma Benites MA - 01/22/2025 5:12 PM EST MRI results scanned [facility]02-21-2025 Telephone encounter Note* Telephone Encounter - Alix Garcia RN - 01/22/2025 4:18 PM EST Pt called in asking about MRI results. I let her know providers office has not received them yet. She states they told her they have sent them twice. She states she will call them to send them again. [facility]02-20-2025 Telephone encounter Note* Telephone Encounter - Zulma Benites MA - 01/21/2025 4:54 PM EST Office did not receive records from TAYLOR Benites MA January 21, 2025 4:55 PM [facility]02-20-2025 Telephone encounter Note* Telephone Encounter - Halima Hernandez - 01/21/2025 4:08 PM EST Patient is calling stating she seen [facility] and they are stating patient is tocall PCP office for additional testing and they was to fax notes to our office. Please advise patient [facility]02-14-2025 History of Present illness Narrative* Zulma Packer RT(Alvin) - 01/15/2025 9:00 AM EST Radiology Service Progress Note DATE OF SERVICE: January 15, 2025 TIME: 9:10 AM PATIENT IDENTITY VERIFICATION COMPLETED USING TWO (2) STANDARD IDENTIFIERS: Name and Date of confirmed by patient verbally. FALL SCREENING: Has the patient had 2 falls in the last year or 1 fall with injury or currently using an Ambulatory Assistive Device (Walker, Cane, Wheelchair, Crutches, etc.)? No PATIENT GENDER DATA: Assigned female at . status: : No status:NO. PATIENT RELEVANT IMPLANT DATA REVIEWED: Yes PATIENT PRESENTS WITH AN IMPLANTABLE OR ATTACHED SPECIAL LIBRARY LIBRARIAN: No ALLERGIES: Reviewed and unchanged CONTRAST ALLERGY: NO. EXAM: MRI - CONTRAST TYPE: GROUP II PERIPHERAL IV DATA: Ambulatory: A peripheral IV was started in the Left antecubital site with a Angio cath: 22 gauge. RADIOLOGY DEPARTMENT: MR; Exam(s) Completed: Body: Pancreas/Biliary SIGNATURE: RT Salvador(Alvin) PATIENT NAME: Sachi Grace DATE: January 15, 2025 TIME: 9:10 AM documented [facility] NoteHNO ID: [id number] Author: ZULMA PACKER RT(Alvin) Service: ? Author Type: Technologist Type: Progress Notes Filed: 01/15/2025 09:11 Note Text: Radiology Service Progress Note DATE OF SERVICE: January 15, 2025 TIME: 9:10 AM PATIENT IDENTITY VERIFICATION COMPLETED USING TWO (2) STANDARD IDENTIFIERS: Name and Date of confirmed by patient verbally. FALL SCREENING: Has the patient had 2 falls in the last year or 1 fall with injury or currently using an Ambulatory Assistive Device (Walker, Cane, Wheelchair, Crutches, etc.)? No PATIENT GENDER DATA: Assigned female at . status: : No status: NO. PATIENT RELEVANT IMPLANT DATA REVIEWED: Yes PATIENT PRESENTS WITH AN IMPLANTABLE OR ATTACHED SPECIAL LIBRARY LIBRARIAN: No ALLERGIES: Reviewed and unchanged CONTRAST ALLERGY: NO. EXAM: MRI - CONTRAST TYPE: GROUP II PERIPHERAL IV DATA: Ambulatory: A peripheral IV was started in the Left antecubital site with a Angio cath: 22 gauge. RADIOLOGY DEPARTMENT: MR; Exam(s) Completed: Body: Pancreas/Biliary SIGNATURE: RT Salvador(R) PATIENT NAME: Sachi Grace DATE: January 15, 2025 TIME: 9:10 [facility]02-13-2025 Telephone encounter Note* Telephone Encounter - Sharon Stoddard - 01/14/2025 11:22 AM EST Spoke with patient and scheduled MRI for 01/15/25 at 9:00 AM. Sharon Stoddard [facility]02-13-2025 Miscellaneous Notes* Telephone Encounter - Sharon Stoddard - 01/14/2025 11:22 AM EST Spoke with patient and scheduled MRI for 01/15/25 at 9:00 AM. Sharon Stoddard * Telephone Encounter - Bridgette Shaw - 01/14/2025 8:50 AM EST Patient calling for status update on MRI being ordered. Please contact patient to advise. [facility] Telephone encounter Note * Telephone Encounter - Bridgette Shaw - 01/14/2025 8:50 AM EST Patient calling for status update on MRI being ordered. Please contact patient to advise. [facility]02-05-2025 Telephone encounter Note* Telephone Encounter - Halima Diaz RN - 01/06/2025 8:48 AM EST Opened in error. Halima Diaz RN [facility]02-05-2025 Miscellaneous Notes* Telephone Encounter - Halima Diaz RN - 01/06/2025 8:48 AM EST Opened in error. Halima Diaz RN documented in this encounterThe [facility]25 NoteHNO ID: [id number] Author: SENA HAHN MA Service: ? Author Type: Hydrocrane Operator Type: Progress Notes Filed: 01/05/2025 08:57 Note Text: POPULATION HEALTH NAVIGATION OUTREACH Action/JOSLYNRanda Sachi returned call. She declined wellness exam Reason for Outreach Care Gap/HCC or Scheduling Wellness Visits Care Gaps due: Medicare Annual Wellness Visit Patient Contacted: Spoke to patient/parent/or legal guardian Patient identified by name and : Yes Care Gap/HCC/Scheduling Wellness actions taken: Patient declined: Doesn't feel it's necessary Navigation Signature: Sena Hahn MA January 05, 2025 8:55 [facility]02-04-2025 History of Present illness Narrative* Sena Hahn MA - 01/05/2025 8:55 AM EST POPULATION HEALTH NAVIGATION OUTREACH Action/FYI Sachi returned call. She declined wellness exam Reason for Outreach Care Gap/HCC or Scheduling Wellness Visits Care Gaps due: Medicare Annual Wellness Visit Patient Contacted: Spoke to patient/parent/or legal guardian Patient identified by name and : Yes Care Gap/HCC/Scheduling Wellness actions taken: Patient declined: Doesn't feel it's necessary Navigation Signature: Sena Hahn MA January 05, 2025 8:55 AM * Sena Hahn MA - 01/05/2025 7:31 AM EST POPULATION HEALTH NAVIGATION OUTREACH Action/FYI LVM Topic Due (Y or N) Comments Medicare Wellness Y PCP Follow up Mammogram Colorectal Cancer Screening A1C Dilated Retinal Exam ([place]) KED (UACR and eGFR) HCC Y Flu Vaccine Care Everywhere Reviewed MyChart Activation Updated Appointment Note Reason for Outreach Care Gap/HCC or Scheduling Wellness Visits Care Gaps due: Medicare Annual Wellness Visit Patient Contacted: Unable or unnecessary to reach patient: Left message HCC related Navigation Signature: Sena Hahn MA January 05, 2025 7:31 AM documented in [facility] encounterThe [facility]25 NoteHNO ID: [id number] Author: SENA HAHN MA Service: ? Author Type: Hydrocrane Operator Type: Progress Notes Filed: 01/05/2025 08:57 Note Text: POPULATION HEALTH NAVIGATION OUTREACH Action/FYI LVM Topic Due (Y or N) Comments Medicare Wellness Y PCP Follow up Mammogram Colorectal Cancer Screening A1C Dilated Retinal Exam ([place]) KED (UACR and eGFR) HCC Y Flu Vaccine Care Everywhere Reviewed MyChart Activation Updated Appointment Note Reason for Outreach Care Gap/HCC or Scheduling Wellness Visits Care Gaps due: Medicare Annual Wellness Visit Patient Contacted: Unable or unnecessary to reach patient: Left message HCC related Navigation Signature: Sena Hahn MA January 05, 2025 7:31 [facility]02-04-2025 NotePatient Outreach (NETNAV) [place] ([id number]) 1935 F NFR Date Time Provider Department 01/05/25 SENA HAHN NETNAV During your visit today, we recorded the following information about you: Sena Hahn MA 01/05/2025 8:57 AM Signed POPULATION HEALTH NAVIGATION OUTREACH Action/Randa [facility] Topic Due (Y or N) Comments Medicare Wellness Y PCP Follow up Mammogram Colorectal Cancer Screening A1C Dilated Retinal Exam ([place]) KED (UACR and eGFR) HCC Y Flu Vaccine Care Everywhere Reviewed MyChart Activation Updated Appointment Note Reason for Outreach Care Gap/HCC or Scheduling Wellness Visits Care Gaps due: Medicare Annual Wellness Visit Patient Contacted: Unable or unnecessary to reach patient: Left message HCC related Navigation Signature: Sena Hahn MA January 05, 2025 7:31 AM Sena Hahn MA 01/05/2025 8:57 AM Signed POPULATION HEALTH NAVIGATION OUTREACH Action/EVELIO Karimi returned call. She declined wellness exam Reason for Outreach Care Gap/HCC or Scheduling Wellness Visits Care Gaps due: Medicare Annual Wellness Visit Patient Contacted: Spoke to patient/parent/or legal guardian Patient identified by name and : Yes Care Gap/HCC/Scheduling Wellness actions taken: Patient declined: Doesn't feel it's necessary Navigation Signature: Sena Hahn MA January 05, 2025 8:55 AM Allergies As of Date: 01/05/2025 Noted Allergy Reaction VICODIN (HYDROCODONE-ACETAMINOPHE*05/04/2013 8 - GI Upset BUSPIRONE 04/21/2024 5 - Intolerance Comments: Anxious, jittery, felt worse, RLS worse. COCAMIDOPROPYL BETAINE 07/27/2020 2 - Rash Comments: itching, rash CODEINE 03/19/2007 8 - GI Upset PANTOPRAZOLE 12/18/2024 8 - GI Upset Comments: Bloating, constipation, increase in abd pain PERCOCET (OXYCODONE-ACETAMINOPHEN)04/22/2013 8 - GI Upset SULFA (SULFONAMIDE ANTIBIOTICS) 03/19/2007 4 - Hives 7 - Swelling Comments: lips swelled up TETRACYCLINE 04/29/2019 8 - GI Upset Date Reviewed: 12/18/2024 Reviewed by: Zulma Benites MA - Fully Assessed Reason for Visit: Population Health Navigation Outreach [3910] Cmt: ARYA GILLETTE PCSA Prescriptions as of 01/05/2025 - rOPINIRole (REQUIP) 0.5 mg tablet Take 1.5 tablets by mouth daily at bedtime. - Vit B Complex 100 Combo No.2 (B-100 COMPLEX) 100 mg TbER Take 1 tablet by mouth once daily. - levothyroxine (SYNTHROID) 50 mcg tablet Take 50 mcg by mouth. Take 50 mcg on Saturday, and 75 mcg all other days of the week, per ENDO - MEDICATION, NON-DATABASE CBD oil - fluticasone propionate (ARMONAIR DIGIHALER) 232 mcg/actuation inhaler Inhale 1 Puff as instructed two times a day. - levalbuterol tartrate HFA 45 mcg/actuation inhaler Inhale 1-2 Puffs as instructed every 4 hours as needed for wheezing/shortness of breath. - Cholecalciferol, Vitamin D3, (VITAMIN D) 25 mcg (1,000 unit) cap Take 1,000 Units by mouth once daily. - clonazePAM (KLONOPIN) 0.5 mg tablet Take 0.5 mg by mouth at bedtime as needed. Dr Dupree - vit A,C,N-Octc-Nenjmp (PRESERVISION AREDS) 7,160-113-100 rpde-hq-oqzl tab Take by mouth. - ACETAMINOPHEN 500 MG TAB Take one(1) tablet every four(4) to six(6) hours as needed for pain. Problem List As Of Date 01/05/2025 Noted Resolved Unspecified constipation [K59.00] 04/30/2006 03/16/2016 PEPTIC ULCER NOS [K27.9] 03/19/2007 GENERALIZED ANXIETY DIS [F41.1] Generalized osteoarthrosis, unspecified site [M* 12/23/2015 Myalgia and myositis [RVC6106] 05/22/2017 Diverticulosis of large intestine [K57.30] Disorder of bone and cartilage [M89.9, M94.9] Hypothyroidism [E03.9] Hyperlipidemia LDL goal <130 [E78.5] Gout, unspecified [M10.9] 12/23/2015 PEPTIC ULCER NOS [K27.9] 03/19/2007 PAROX ATRIAL TACHYCARDIA [I47.10] 03/19/2007 Disturbances of sensation of smell and taste [R*02/13/2008 05/22/2017 Chronic maxillary sinusitis [J32.0] 02/13/2008 05/22/2017 Meniere's disease, unspecified [H81.09] 05/20/2008 03/16/2016 Dizziness and giddiness [R42] 05/13/2009 12/23/2015 Cervicalgia [M54.2] 05/13/2009 12/23/2015 Osteoarthritis of both knees [M17.0] Multinodular goiter [E04.2] Syncope and collapse [R55] 04/30/2014 12/23/2015 History of knee replacement, total [Z96.659] 12/23/2015 Ageusia [R43.2] 02/23/2016 05/22/2017 Glossitis [K14.0] 02/23/2016 05/22/2017 Mild intermittent asthma without complication [*03/16/2016 Paroxysmal supraventricular tachycardia (HCC) [* Nausea [R11.0] 03/20/2018 04/29/2019 Hernia of anterior abdominal wall [K43.9] 04/18/2020 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 Author Type: LICENSED NURSE Type: Progress Notes Filed: 12/30/2024 10:18 Note Text: Patient presented for H. Pylori Breath testing per Dayna Mancera CNP. Obtained baseline sample at 9:56am. Patient then drank Pranactin-Citric solution. Waited full 15 minutes and obtained second sample at 10:16am. Patient tolerated testing well with no problems. LOT # [id number] EXP 05/31/2025 [facility] History of Present illness Narrative* Arcelia Vu LPN - 12/30/2024 9:56 AM EST Patient presented for H. Pylori Breath testing per Dayna Mancera CNP. Obtained baseline sample at 9:56am. Patient then drank Pranactin-Citric solution. Waited full 15 minutes and obtained second sample at 10:16am. Patient tolerated testing well with no problems. LOT # [id number] EXP 05/31/2025 Arcelia Vu LPN [facility] Telephone encounter Note * Telephone Encounter - Skylar Spears LPN - 12/22/2024 2:11 PM EST Pt called and asked to have referral and supporting information be faxed to Dr. Rm at [facility]. {Pt has apt on 01-01-25. Done. Skylar Spears LPN [facility]01-21-2025 Miscellaneous Notes* Telephone Encounter - Skylar Spears LPN - 12/22/2024 2:11 PM EST Pt called and asked to have referral and supporting information be faxed to Dr. Rm at [facility]. {Pt has apt on 01-01-25. Done. Skylar Spears LPN documented in this encounterCleveland [id number] Instructions* Patient Instructions* Anitra Mancera APRN.CNP - 12/18/2024 10:20 AM EST - CONSULT TO GENERAL SURGERY - BREATH TEST FOR HELICOBACTER PYLORI - Follow up in 3 months documented in [facility]The [facility]25 NoteHNO ID: [id number] Author: ANITRA MANCERA APRN.CNP Service: ? Author Type: Physician Type: Progress Notes Filed: 12/18/2024 10:20 Note Text: This is a 89 year old female who presents today with: Patient presents with: Abdominal Pain: Bloating, pain, nausea HISTORY OF PRESENT ILLNESS: Sachi Grace is a 89 year old female. Patient presents with: Abdominal Pain: Bloating, pain, nausea Patient seen at [facility] ER for the persistent nausea. She did undergo evaluation for tenderness epigastric, left upper quadrant and right upper quadrant pain. Negative guarding or rebound tenderness. WBC 5.2, hemoglobin 12.8, hematocrit 39.3, platelet count 353. Absolute lymphocytes slightly low at 0.69 Sodium 136, potassium 3.8, BUN 13, creatinine 0.65, glucose 100. Calcium 9.1 AST 47, ALT 39, alkaline phosphatase [address] of the abdomen and pelvis showed pancreatic atrophy and pancreatic duct dilatation. In the body of the pancreas there is a 2.8 cm cystic lesion with ill defined margins. Endoscopic ultrasound with fine-needle aspiration surgical consultation is recommended. Also noted a moderate to large amount of stool. Centrilobular emphysema. Diverticulosis without diverticulitis. Usually takes fiber and Miralax. Still having nausea and bloating. No vomiting. No pain all day yesterday. After eating, stomach ache. Pantoprazole making pain worse. She stopped it 3 days ago and pain is better. No fever but chilling. 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 Dupree-every 6 months Gout, unspecified late great toe, several episodes Hypothyroidism, unspecified Multinodular goiter Dr Boateng Osteoarthritis of both knees Other and unspecified hyperlipidemia diet therapy as of 03/08 Paroxysmal supraventricular tachycardia (HCC) ablation 01/2002 ( in [facility]), follows with Dr. Moreno (prn only) RLS (restless legs syndrome) Tinnitus, unspecified ear Unspecified constipation PAST SURGICAL HISTORY Procedure Laterality Date APPENDECTOMY ARTHRP KNE CONDYLEANDPLATU MEDIALANDLAT COMPARTMENTS 2012 Knee replacement, total bilateral CARPAL TUNNEL 2005 bilateral COLONOSCOPY FLX DX W/COLLJ SPEC WHEN PFRMD 12/14/2002 Colonoscopy COLONOSCOPY FLX DX W/COLLJ SPEC WHEN PFRMD 06/10/2007 COLONOSCOPY FLX DX W/COLLJ SPEC WHEN PFRMD 08/04/2013 Colonoscopy COLONOSCOPY FLX DX W/COLLJ SPEC WHEN PFRMD 10/14/2018 [facility]-Repeat 5 years COLONOSCOPY SCREENING 11/15/2023 R Cebul no repeat due to age CORRECT BUNION,SIMPLE left ECHOCARDIOGRAM 10/18/2017 EGD 1985 bleeding ulcer EPS: SVT/VT ABLATION 2001 [facility] ESOPHAGOGASTRODUODENOSCOPY TRANSORAL DIAGNOSTIC 03/24/2018 EGD HERNIA REPAIR HX 09/2020 ventral hernia repair HOLTER 24 HR 10/2017 LOOP RECORDER IMPLANT 01/23/2018 NASAL/SINUS ENDOSCOPY WITH SPHENOIDOTOMY Bilateral 05/15/2019 Dr. Ruffin NASAL/SINUS ENDOSCPY W/MAXILL ANTROSTOMY Bilateral 05/15/2019 Dr. Ruffin NASAL/SINUS ENDOSCPY W/TOTAL ETHMOIDECTOMY Bilateral 05/15/2019 Dr. Ruffin OPEN REPAIR OF ROTATOR CUFF ACUTE 04/2005 Dr. Mejias PAST SURGICAL HISTORY OF 10/1997 partial colectomy ([place], [facility]) PAST SURGICAL HISTORY OF 2011 nerves cut in my back STEREO LOC FOR CORE BRST BX LT 04/24/2010 left STRESS TEST 12/17/2017 TONSILLECTOMY PRIMARY/SECONDARY ALLERGIES Vicodin [Hydrocodone-Acetaminophen], Buspirone, Cocamidopropyl Betaine, Codeine, Percocet [Oxycodone-Acetaminophen], Sulfa (Sulfonamide Antibiotics), and Tetracycline MEDICATIONS Current Outpatient Medications Medication Sig ondansetron (ZOFRAN) 4 mg tablet Take 1 tablet by mouth every 8 hours as needed for nausea/vomiting. rOPINIRole (REQUIP) 0.5 mg tablet Take 1.5 tablets by mouth daily at bedtime. Vit B Complex 100 Combo No.2 (B-100 COMPLEX) 100 mg TbER Take 1 tablet by mouth once daily. levothyroxine (SYNTHROID) 50 mcg tablet Take 50 mcg by mouth. Take 50 mcg on Saturday, and 75 mcg all other days of the week, per ENDO MEDICATION, NON-DATABASE CBD oil fluticasone propionate (ARMONAIR DIGIHALER) 232 mcg/actuation inhaler Inhale 1 Puff as instructed two times a day. levalbuterol tartrate HFA 45 mcg/actuation inhaler Inhale 1-2 Puffs as instructed every 4 hours as needed for wheezing/shortness of breath. Cholecalciferol, Vitamin D3, (VITAMIN D) 25 mcg (1,000 unit) cap Take 1,000 Units by mouth once daily. clonazePAM (KLONOPIN) 0.5 mg tablet Take 0.5 mg by mouth at bedtime as needed. Dr Dupree vit A,C,P-Lelz-Geszex (PRESERVISION AREDS) 7,160-113-100 jqud-xu-yihj tab Take by mouth. ACETAMINOPHE (more content not included)...[facility]01-17-2025 History of Present illness Narrative* Anitra Mancera APRN.[facility] - 12/18/2024 9:39 AM EST This is a 89 year old female who presents today with: Patient presents with: Abdominal Pain: Bloating, pain, nausea HISTORY OF PRESENT ILLNESS: Sachi Grace is a 89 year old female. Patient presents with: Abdominal Pain: Bloating, pain, nausea Patient seen at [facility] ER for the persistent nausea. She did undergo evaluationfor tenderness epigastric, left upper quadrant and right upper quadrant pain. Negative guarding or rebound tenderness. WBC 5.2, hemoglobin 12.8, hematocrit 39.3, platelet count 353. Absolute lymphocytes slightly low at 0.69 Sodium 136, potassium 3.8, BUN 13, creatinine 0.65, glucose 100. Calcium 9.1 AST 47, ALT 39, alkaline phosphatase [address] of the abdomen and pelvis showed pancreatic atrophy and pancreatic duct dilatation. In the body of the pancreas there is a 2.8 cm cystic lesion with ill defined margins. Endoscopic ultrasound withfine-needle aspiration surgical consultation is recommended. Also noted a moderate to large amount of stool. Centrilobular emphysema. Diverticulosis without diverticulitis. Usually takes fiber and Miralax. Still having nausea and bloating. No vomiting. No pain all day yesterday. After eating, stomach ache. Pantoprazole making pain worse.She stopped it 3 days ago and pain is better. No fever but chilling. 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 Dupree-every 6 months Gout, unspecified late great toe, several episodes Hypothyroidism, unspecified Multinodular goiter Dr Boateng Osteoarthritis of both knees Other and unspecified hyperlipidemia diet therapy as of 03/08 Paroxysmal supraventricular tachycardia (HCC) ablation 01/2002 ( in [place], [facility]), follows with Dr. Moreno (prn only) RLS (restless legs syndrome) Tinnitus, unspecified ear Unspecified constipation PAST SURGICAL HISTORY Procedure Laterality Date APPENDECTOMY ARTHRP KNE CONDYLE&PLATU MEDIAL&LAT COMPARTMENTS 2011 Knee replacement, total bilateral CARPAL TUNNEL 2005 bilateral COLONOSCOPY FLX DX W/COLLJ SPEC WHEN PFRMD 12/14/2002 Colonoscopy COLONOSCOPY FLX DX W/COLLJ SPEC WHEN PFRMD 06/10/2007 COLONOSCOPY FLX DX W/COLLJ SPEC WHEN PFRMD 08/04/2013 Colonoscopy COLONOSCOPY FLX DX W/COLLJ SPEC WHEN PFRMD 10/14/2018 [facility]-Repeat 5 years COLONOSCOPY SCREENING 11/15/2023 R Cebul no repeat due to age CORRECT BUNION,SIMPLE left ECHOCARDIOGRAM 10/18/2017 EGD 1985 bleeding ulcer EPS: SVT/VT ABLATION 2001 [facility] ESOPHAGOGASTRODUODENOSCOPY TRANSORAL DIAGNOSTIC 03/24/2018 EGD HERNIA REPAIR HX 09/2020 ventral hernia repair HOLTER 24 HR 10/2017 LOOP RECORDER IMPLANT 01/23/2018 NASAL/SINUS ENDOSCOPY WITH SPHENOIDOTOMY Bilateral 05/15/2019 Dr. Ruffin NASAL/SINUS ENDOSCPY W/MAXILL ANTROSTOMY Bilateral 05/15/2019 Dr. Ruffin NASAL/SINUS ENDOSCPY W/TOTAL ETHMOIDECTOMY Bilateral 05/15/2019 Dr. Ruffin OPEN REPAIR OF ROTATOR CUFF ACUTE 04/2005 Dr. Mejias PAST SURGICAL HISTORY OF 10/1997 partial colectomy ([place], [facility]) PAST SURGICAL HISTORY OF 2011 nerves cut in my back STEREO LOC FOR CORE BRST BX LT 04/24/2010 left STRESS TEST 12/17/2017 TONSILLECTOMY PRIMARY/SECONDARY <AGE 12 ALLERGIES Vicodin [Hydrocodone-Acetaminophen], Buspirone, Cocamidopropyl Betaine, Codeine, Percocet[Oxycodone-Acetaminophen], Sulfa (Sulfonamide Antibiotics), and Tetracycline MEDICATIONS Current Outpatient Medications Medication Sig ondansetron (ZOFRAN) 4 mg tablet Take 1 tablet by mouth every 8 hours as needed for nausea/vomiting. rOPINIRole (REQUIP) 0.5 mg tablet Take 1.5 tablets by mouth daily at bedtime. Vit B Complex 100 Combo No.2 (B-100 COMPLEX) 100 mg TbER Take 1 tablet by mouth once daily. levothyroxine (SYNTHROID) 50 mcg tablet Take 50 mcg by mouth. Take 50 mcg on Saturday, and 75 mcg allother days of the week, per ENDO MEDICATION, NON-DATABASE CBD oil fluticasone propionate (ARMONAIR DIGIHALER) 232 mcg/actuation inhaler Inhale 1 Puff as instructed two times a day. levalbuterol tartrate HFA 45 mcg/actuation inhaler Inhale 1-2 Puffs as instructed every 4 hours as needed for wheezing/shortness of breath. Cholecalciferol, Vitamin D3, (VITAMIN D) 25 mcg (1,000 unit) cap Take 1,000 Units by mouth once daily. clonazePAM (KLONOPIN) 0.5 mg tablet Take 0.5 mg by mouth at bedtime as needed. Dr Dupree vit A,C,N-Nnnl-Pyhyrp (PRESERVISION AREDS) 7,160-113-100 oghm-xb-bqvr tab Take by mouth. ACETAMINOPHEN 500 MG TAB Take one(1) tablet every four(4) to six(6) hours as needed for pain. bismuth subsalicylate (PEPTO-BISMOL) 262 mg chewable tablet Take 2 tablets by mouth four times daily for [address] (PROTONIX) 40 mg tablet Take 1 tablet by mouth once daily. (Patient not taking: Reported on 12/18/2024) No current facility-administered medications for this visit. FAMILY HISTORY Problem Relation Age of Onset Heart Mother rheumatic; 73 Colon Cancer Father dx'd age 50's Coronary Artery Disease Father age 40s, CABG (among the first done at in [place]) Stroke Sister at 58 of ruptured aneurysm Cancer Brother at 55 (tobacco, agent orange) DVT Sister Social History Tobacco Use Smoking status: Never Smokeless tobacco: Never Vaping Use Vaping status: Never Used Substance Use Topics Alcohol use: No Drug use: No EXAM: BP 118/76 Pulse 79 Temp 36.8 C (98.2 F) Wt 58.4 kg (128 lb 12 oz) SpO2 95% BMI 25.14 kg/m PHYSICAL EXAM: Physical Exam Vitals reviewed. Constitutional: Appearance: Normal appearance. Cardiovascular: Rate and Rhythm: Normal rate and regular rhythm. Pulses: Normal pulses. Heart sounds: Normal heart sounds. Pulmonary: Effort: Pulmonary effort is normal. Breath sounds: Normal breath sounds. Abdominal: Comments: Epigastric bloating- firm. No RUQ or LUQ tenderness today. Positive ROLO. Musculoskeletal: General: Normal range of motion. Comments: Walks w/o assistive device Skin: General: Skin is warm and dry. Neurological: Mental Status: She is alert and oriented to person, place, and time. LABS: ASSESSMENT/PLAN: 1. 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 Also noting pancreastic duct dilatation - CONSULT TO GENERAL SURGERY 2. H. pylori infection - ICD9: 041.86, ICD10: A04.8 Completed therapy- off all medications for this including pantoprazole - BREATH TEST FOR HELICOBACTER PYLORI Discussed treatment plan and patient voices understanding. Patient's questions answered appropriately. Medications and potential side effects were discussed and patient voices understanding. Return to the office as scheduled or as needed for worsening/no improvement. Anitra Mancera, RIGO.AUTOMOBILE RENTAL AGENT [facility] Telephone encounter Note * Telephone Encounter - Alix Garcia RN - 12/10/2024 6:51 PM EST Pt called and is notified of providers message and instructions. Pt voices understanding and will be going to [facility] ER. Alix Garcia RN [facility]01-09-2025 Miscellaneous Notes* Telephone Encounter - Alix Garcia RN - 12/10/2024 6:51 PM EST Pt called and is notified of providers message and instructions. Pt voices understanding and will be going to [facility] ER. Alix Garcia RN * Telephone Encounter - Kevin Vang RN - 12/10/2024 5:01 PM EST Left vm for pt to return call. * Telephone Encounter - Kevin Vang RN - 12/10/2024 4:29 PM EST Left vm for patient to return call to triage nurse for providers instructions. * Telephone Encounter - Kevin Vang RN - 12/10/2024 2:02 PM EST Left vm for patient to return call to triage nurse for provider instructions. * Telephone Encounter - Zulma Benites MA - 12/10/2024 12:59 PM EST Left message on home number, attempted to call cell, no answer, no voicemail. * Telephone Encounter - Anitra Mancera APRN.RUSTY - 12/10/2024 12:12 PM EST Go to ER. Ulcer could perforate. Would need Ct scan * Telephone Encounter - Kevin Vang RN - 12/10/2024 11:28 AM EST Pt reports she is concerned b/c her abdomin is bloated and hard between the ribs and the naval, since Sat or . Reports it is usually flat. Reports she completed all the medication prescribed for H-pylori / ulcer that Dayna prescribed. Isstill taking pantoprazole. Completed the antibiotic on . Takes fiber every night (missed 2 daysb/c concerned about the bloating- took it last night). Reports she had a normal BM today, is voiding ok, no fever, eating plenty- eats a little bit of everything. Not passing gas, but burping a lot. Asking provider to advise patient. Reports she has appt with Dayna on Sat12/18/24. documented in [facility] Telephone encounter Note * Telephone Encounter - Kevin Vang RN - 12/10/2024 5:01 PM EST Left vm for pt to return call. [facility] Telephone encounter Note* Telephone Encounter - Kevin Vang RN - 12/10/2024 4:29 PM EST Left vm for patient to return call to triage nurse for providers instructions. [facility]01-09-2025 Telephone encounter Note* Telephone Encounter - Kevin Vang RN - 12/10/2024 2:02 PM EST Left vm for patient to return call to triage nurse for provider instructions. [facility]01-09-2025 Telephone encounter Note* Telephone Encounter - Zulma Benites MA - 12/10/2024 12:59 PM EST Left message on home number, attempted to call cell, no answer, no voicemail. [facility]01-09-2025 Telephone encounter Note* Telephone Encounter - Anitra Mancera APRN.RUSTY - 12/10/2024 12:12 PM EST Go to ER. Ulcer could perforate. Would need Ct scan [facility]01-09-2025 Telephone encounter Note* Telephone Encounter - Kevin Vang RN - 12/10/2024 11:28 AM EST Pt reports she is concerned b/c her abdomin is bloated and hard between the ribs and the naval, since Sat or . Reports it is usually flat. Reports she completed all the medication prescribed for H-pylori / ulcer that Dayna prescribed. Isstill taking pantoprazole. Completed the antibiotic on . Takes fiber every night (missed 2 daysb/c concerned about the bloating- took it last night). Reports she had a normal BM today, is voiding ok, no fever, eating plenty- eats a little bit of everything. Not passing gas, but burping a lot. Asking provider to advise patient. Reports she has appt with Dayna on Sat12/18/24. [facility]12-27-2024 Instructions* Patient Instructions* Anitra Mancera APRN.CNP - 11/27/2024 11:41 AM EST 1) Start metronidazole and doxycyline- may use ondansetron if needed for nausea to complete both antibiotics for 10 days 2) Use bismuth chews for 10 days- 4 x day\ 3) continue pantoprazole for another 30 days 4) See you in Dec. documented in [facility] encounterThe [facility]12-27-[facility]24 NoteHNO ID: [id number] Author: ANITRA MANCERA APRN.CNP Service: ? Author Type: Clinical Nurse Specialist Type: Progress Notes Filed: 11/27/2024 11:42 Note Text: This is a 89 year old female who presents today with: Patient presents with: Follow Up HISTORY OF PRESENT ILLNESS: Sachi Grace is a 89 year old female. Patient presents with: Follow Up Has not picked up antibiotics or started pepto-bismol. Will pick them up today Stomach pain is improved. Some nausea. No fever but chills Mouth is sore but bearable. Burning pain. Area where incision was upper lip, is painful. Eating ok. Gained 3 lb. Since Saturday Constipation from holding stool softener and laxative Sleep is broken by getting up at night once to urinate Dr. Dupree retired and now following with Dr. 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 Dupree-every 6 months Gout, unspecified late great toe, several episodes Hypothyroidism, unspecified Multinodular goiter Dr Boateng Osteoarthritis of both knees Other and unspecified hyperlipidemia diet therapy as of 03/08 Paroxysmal supraventricular tachycardia (HCC) ablation 01/2002 ( in [facility]), follows with Dr. Moreno (prn only) RLS (restless legs syndrome) Tinnitus, unspecified ear Unspecified constipation PAST SURGICAL HISTORY Procedure Laterality Date APPENDECTOMY ARTHRP KNE CONDYLEANDPLATU MEDIALANDLAT COMPARTMENTS 2012 Knee replacement, total bilateral CARPAL TUNNEL 2005 bilateral COLONOSCOPY FLX DX W/COLLJ SPEC WHEN PFRMD 12/14/2002 Colonoscopy COLONOSCOPY FLX DX W/COLLJ SPEC WHEN PFRMD 06/10/2007 COLONOSCOPY FLX DX W/COLLJ SPEC WHEN PFRMD 08/04/2013 Colonoscopy COLONOSCOPY FLX DX W/COLLJ SPEC WHEN PFRMD 10/14/2018 [facility]-Selam Tabares-Repeat 5 years COLONOSCOPY SCREENING 11/15/2023 R Cebul no repeat due to age CORRECT BUNION,SIMPLE left ECHOCARDIOGRAM 10/18/2017 EGD 1985 bleeding ulcer EPS: SVT/VT ABLATION 2001 [facility] ESOPHAGOGASTRODUODENOSCOPY TRANSORAL DIAGNOSTIC 03/24/2018 EGD HERNIA REPAIR HX 09/2020 ventral hernia repair HOLTER 24 HR 10/2017 LOOP RECORDER IMPLANT 01/23/2018 NASAL/SINUS ENDOSCOPY WITH SPHENOIDOTOMY Bilateral 05/15/2019 Dr. Ruffin NASAL/SINUS ENDOSCPY W/MAXILL ANTROSTOMY Bilateral 05/15/2019 Dr. Ruffin NASAL/SINUS ENDOSCPY W/TOTAL ETHMOIDECTOMY Bilateral 05/15/2019 Dr. Ruffin OPEN REPAIR OF ROTATOR CUFF ACUTE 04/2005 Dr. Mejias PAST SURGICAL HISTORY OF 10/1997 partial colectomy ([place], [facility]) PAST SURGICAL HISTORY OF 2011 nerves cut in my back STEREO LOC FOR CORE BRST BX LT 04/24/2010 left STRESS TEST 12/17/2017 TONSILLECTOMY PRIMARY/SECONDARY ALLERGIES Vicodin [Hydrocodone-Acetaminophen], Buspirone, Cocamidopropyl Betaine, Codeine, Percocet [Oxycodone-Acetaminophen], Sulfa (Sulfonamide Antibiotics), and Tetracycline MEDICATIONS Current Outpatient Medications Medication Sig bismuth subsalicylate (PEPTO-BISMOL) 262 mg chewable tablet Take 2 tablets by mouth four times daily for 10 days. doxycycline hyclate (VIBRAMYCIN) 100 mg capsule Take 1 capsule (100 mg) by mouth two times a day for 10 days. metroNIDAZOLE (FLAGYL) 250 mg tablet Take 1 tablet by mouth four times daily for [address] (PROTONIX) 40 mg tablet Take 1 tablet by mouth once daily. ondansetron (ZOFRAN) 4 mg tablet Take 1 tablet by mouth every 8 hours as needed for nausea/vomiting. rOPINIRole (REQUIP) 0.5 mg tablet Take 1.5 tablets by mouth daily at bedtime. Vit B Complex 100 Combo No.2 (B-100 COMPLEX) 100 mg TbER Take 1 tablet by mouth once daily. levothyroxine (SYNTHROID) 50 mcg tablet Take 50 mcg by mouth. Take 50 mcg on Saturday, and 75 mcg all other days of the week, per ENDO MEDICATION, NON-DATABASE CBD oil fluticasone propionate (ARMONAIR DIGIHALER) 232 mcg/actuation inhaler Inhale 1 Puff as instructed two times a day. levalbuterol tartrate HFA 45 mcg/actuation inhaler Inhale 1-2 Puffs as instructed every 4 hours as needed for wheezing/shortness of breath. Cholecalciferol, Vitamin D3, (VITAMIN D) 25 mcg (1,000 unit) cap Take 1,000 Units by mouth once daily. clonazePAM (KLONOPIN) 0.5 mg tablet Take 0.5 mg by mouth at bedtime as needed. Dr Dupree vit A,C,T-Tupr-Jvzfii (PRESERVISION AREDS) 7,160-113-100 kjrh-ia-wvne tab Take by mouth. ACETAMINOPHEN 500 MG TAB Take one(1) tablet every four(4) to six(6) hours as needed for pain. No current facility-administered medications for this visit. FAMILY HISTORY Problem Relation Age of Onset Heart Mother rheumatic; 73 Colon Cancer Father dx'd age 50's Coronary Artery Dis (more content not included)...[facility] 11-27-2024 History of Present illness Narrative* Anitra Mancera APRN.AUTOMOBILE RENTAL AGENT - 11/27/2024 11:12 AM EST This is a 89 year old female who presents today with: Patient presents with: Follow Up HISTORY OF PRESENT ILLNESS: Sachi Grace is a 89 year old female. Patient presents with: Follow Up Has not picked up antibiotics or started pepto-bismol. Will pick them up today Stomach pain is improved. Some nausea. No fever but chills Mouth is sore but bearable. Burning pain. Area where incision was upper lip, is painful. Eating ok. Gained 3 lb. Since Saturday Constipation from holding stool softener and laxative Sleep is broken by getting up at night once to urinate Dr. Dupree retired and now following with Dr. 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 Dupree-every 6 months Gout, unspecified late great toe, several episodes Hypothyroidism, unspecified Multinodular goiter Dr Boateng Osteoarthritis of both knees Other and unspecified hyperlipidemia diet therapy as of 03/08 Paroxysmal supraventricular tachycardia (HCC) ablation 01/2002 ( in [place], [facility]), follows with Dr. Moreno (prn only) RLS (restless legs syndrome) Tinnitus, unspecified ear Unspecified constipation PAST SURGICAL HISTORY Procedure Laterality Date APPENDECTOMY ARTHRP KNE CONDYLE&PLATU MEDIAL&LAT COMPARTMENTS 2011 Knee replacement, total bilateral CARPAL TUNNEL 2005 bilateral COLONOSCOPY FLX DX W/COLLJ SPEC WHEN PFRMD 12/14/2002 Colonoscopy COLONOSCOPY FLX DX W/COLLJ SPEC WHEN PFRMD 06/10/2007 COLONOSCOPY FLX DX W/COLLJ SPEC WHEN PFRMD 08/04/2013 Colonoscopy COLONOSCOPY FLX DX W/COLLJ SPEC WHEN PFRMD 10/14/2018 [facility]. [facility]-Repeat 5 years COLONOSCOPY SCREENING 11/15/2023 R Cebul no repeat due to age CORRECT BUNION,SIMPLE left ECHOCARDIOGRAM 10/18/2017 EGD 1985 bleeding ulcer EPS: SVT/VT ABLATION 2001 [facility] ESOPHAGOGASTRODUODENOSCOPY TRANSORAL DIAGNOSTIC 03/24/2018 EGD HERNIA REPAIR HX 09/2020 ventral hernia repair HOLTER 24 HR 10/2017 LOOP RECORDER IMPLANT 01/23/2018 NASAL/SINUS ENDOSCOPY WITH SPHENOIDOTOMY Bilateral 05/15/2019 Dr. Ruffin NASAL/SINUS ENDOSCPY W/MAXILL ANTROSTOMY Bilateral 05/15/2019 Dr. Ruffin NASAL/SINUS ENDOSCPY W/TOTAL ETHMOIDECTOMY Bilateral 05/15/2019 Dr. Ruffin OPEN REPAIR OF ROTATOR CUFF ACUTE 04/2005 Dr. Mejias PAST SURGICAL HISTORY OF 10/1997 partial colectomy ([place], [facility]) PAST SURGICAL HISTORY OF 2011 nerves cut in my back STEREO LOC FOR CORE BRST BX LT 04/24/2010 left STRESS TEST 12/17/2017 TONSILLECTOMY PRIMARY/SECONDARY <AGE 12 ALLERGIES Vicodin [Hydrocodone-Acetaminophen], Buspirone, Cocamidopropyl Betaine, Codeine, Percocet[Oxycodone-Acetaminophen], Sulfa (Sulfonamide Antibiotics), and Tetracycline MEDICATIONS Current Outpatient Medications Medication Sig bismuth subsalicylate (PEPTO-BISMOL) 262 mg chewable tablet Take 2 tablets by mouth four times daily for 10 days. doxycycline hyclate (VIBRAMYCIN) 100 mg capsule Take 1 capsule (100 mg) by mouth two times a day for 10 days. metroNIDAZOLE (FLAGYL) 250 mg tablet Take 1 tablet by mouth four times daily for [address] (PROTONIX) 40 mg tablet Take 1 tablet by mouth once daily. ondansetron (ZOFRAN) 4 mg tablet Take 1 tablet by mouth every 8 hours as needed for nausea/vomiting. rOPINIRole (REQUIP) 0.5 mg tablet Take 1.5 tablets by mouth daily at bedtime. Vit B Complex 100 Combo No.2 (B-100 COMPLEX) 100 mg TbER Take 1 tablet by mouth once daily. levothyroxine (SYNTHROID) 50 mcg tablet Take 50 mcg by mouth. Take 50 mcg on Saturday, and 75 mcg allother days of the week, per ENDO MEDICATION, NON-DATABASE CBD oil fluticasone propionate (ARMONAIR DIGIHALER) 232 mcg/actuation inhaler Inhale 1 Puff as instructed two times a day. levalbuterol tartrate HFA 45 mcg/actuation inhaler Inhale 1-2 Puffs as instructed every 4 hours as needed for wheezing/shortness of breath. Cholecalciferol, Vitamin D3, (VITAMIN D) 25 mcg (1,000 unit) cap Take 1,000 Units by mouth once daily. clonazePAM (KLONOPIN) 0.5 mg tablet Take 0.5 mg by mouth at bedtime as needed. Dr Dupree vit A,C,J-Pclh-Seyqzg (PRESERVISION AREDS) 7,160-113-100 oglx-zh-efdx tab Take by mouth. ACETAMINOPHEN 500 MG TAB Take one(1) tablet every four(4) to six(6) hours as needed for pain. No current facility-administered medications for this visit. FAMILY HISTORY Problem Relation Age of Onset Heart Mother rheumatic; 73 Colon Cancer Father dx'd age 50's Coronary Artery Disease Father age 40s, CABG (among the first done at in [place]) Stroke Sister at 58 of ruptured aneurysm Cancer Brother at 55 (tobacco, agent orange) DVT Sister Social History Tobacco Use Smoking status: Never Smokeless tobacco: Never Vaping Use Vaping status: Never Used Substance Use Topics Alcohol use: No Drug use: No EXAM: BP 102/58 Pulse 74 Temp 36.4 C (97.5 F) (Tympanic) Wt 59 kg (130 lb) SpO2 93% BMI 25.39 kg/m PHYSICAL EXAM: Physical Exam Vitals reviewed. Constitutional: Appearance: Normal appearance. HENT: Head: Normocephalic. Cardiovascular: Rate and Rhythm: Normal rate and regular rhythm. Pulses: Normal pulses. Heart sounds: Normal heart sounds. Pulmonary: Effort: Pulmonary effort is normal. Breath sounds: Normal breath sounds. Abdominal: General: Bowel sounds are normal. Palpations: Abdomen is soft. Tenderness: There is no abdominal tenderness. There is no guarding or rebound. Musculoskeletal: General: Normal range of motion. Right lower leg: No edema. Left lower leg: No edema. Skin: General: Skin is warm and dry. Neurological: Mental Status: She is alert and oriented to person, place, and time. LABS: ASSESSMENT/PLAN: 1. PUD (peptic ulcer disease) - ICD9: 533.90, ICD10: K27.9 (primary diagnosis) Treating with pantoprazole daily 2. H pylori ulcer - ICD9: 533.90, 041.86, ICD10: K27.9, B96.81 Treating with doxy, bismuth, and flagyl 3. Belching - ICD9: 787.3, ICD10: R14.2 Resolved 4. Hypothyroidism, acquired - ICD9: 244.9, ICD10: E03.9 - Instructed patient on importance of taking on an empty stomach either first thing in the morning or at bedtime. 5. 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 Patient's questions answered appropriately. Medications and potential side effects were discussed and patient voices understanding. Return to the office as scheduled or as needed for worsening/no improvement. Anitra Mancera APRN.CNP documented in [facility]12-[facility] Telephone encounter Note * Telephone Encounter - Zulma Benites MA - 11/26/2024 12:06 PM EST Patient notified of provider message and will come to the appointment tomorrow [facility]12-26-20[facility] Miscellaneous Notes* Telephone Encounter - Zulma Benites MA - 11/26/2024 12:06 PM EST Patient notified of provider message and will come to the appointment tomorrow * Telephone Encounter - Anitra Mancera APRN.CNP - 11/26/2024 11:55 AM EST We need to treat the H. pylori. She may be having a little bit of bleeding or it may be the Pepto-Bismol. We need to get the stomach to heal. * Telephone Encounter - Lily Soriano LPN - 11/26/2024 11:51 AM EST States that her stools are still black. Asking what she should do for this? She does have appt to follow up with you tomorrow. * Telephone Encounter - Anitra Mancera APRN.CNP - 11/26/2024 7:44 AM EST Please let patient know that she is positive for H. pylori, the bacteria that causes ulcers. I haveto give her 2 different antibiotics that she will take both for 10 days. Doxycycline twice a day for 10 days and metronidazole 4 times a day for 10 days. She will also take bismuth chews. Take all ofthem with the pantoprazole to heal the ulcer and eradicate that bacteria. She has nausea medicine if she needs to take that along with it. documented in this encounterThe [facility]12-26-[facility]24 Telephone encounter Note * Telephone Encounter - Anitra Mancera APRN.CNP - 11/26/2024 11:55 AM EST We need to treat the H. pylori. She may be having a little bit of bleeding or it may be the Pepto-Bismol. We need to get the stomach to heal. [facility] Telephone encounter Note* Telephone Encounter - Lily Soriano LPN - 11/26/2024 11:51 AM EST States that her stools are still black. Asking what she should do for this? She does have appt to follow up with you tomorrow. [facility] Telephone encounter Note* Telephone Encounter - Anitra Mancera APRN.CNP - 11/26/2024 7:44 AM EST Please let patient know that she is positive for H. pylori, the bacteria that causes ulcers. I haveto give her 2 different antibiotics that she will take both for 10 days. Doxycycline twice a day for 10 days and metronidazole 4 times a day for 10 days. She will also take bismuth chews. Take all ofthem with the pantoprazole to heal the ulcer and eradicate that bacteria. She has nausea medicine if she needs to take that along with it. [facility]12[facility] History of Present illness Narrative* Ed Nichols RT(R) - 11/23/2024 12:30 PM EST Radiology Service Progress Note PATIENT NAME: Sachi Grace DATE OF SERVICE: November 23, 2024 TIME: 12:34 PM PATIENT IDENTITY VERIFICATION COMPLETED USING TWO (2) IDENTIFIERS: Name and Date of confirmedby patient verbally. FALL SCREENING: Has the patient had 2 falls in the last year or 1 fall with injury or currently using an Ambulatory Assistive Device (Walker, Cane, Wheelchair, Crutches, etc.)? No PATIENT GENDER DATA: Female. status: : No status: NO. PATIENT RELEVANT IMPLANT DATA REVIEWED: Not Applicable PATIENT PRESENTS WITH AN IMPLANTABLE OR ATTACHED SPECIAL LIBRARY LIBRARIAN: No RADIOLOGY DEPARTMENT: General X-ray: Exam(s) Completed: Lower Extremity X- Ray(s): Knee, AP / Lat / Tunne / Merchant Bilateral and Wt. Bearing PERIPHERAL IV DATA: Not applicable SIGNED BY: RT Ania(R) November 23, 2024 12:34 PM documented in this encounterThe [facility]12-23-2024 NoteHNO ID: [id number] Author: ED NICHOLS RT(Alvin) Service: ? Author Type: Technologist Type: Progress Notes Filed: 11/23/2024 12:45 Note Text: Radiology Service Progress Note PATIENT NAME: Sachi Grace DATE OF SERVICE: November 23, 2024 TIME: 12:34 PM PATIENT IDENTITY VERIFICATION COMPLETED USING TWO (2) IDENTIFIERS: Name and Date of confirmed by patient verbally. FALL SCREENING: Has the patient had 2 falls in the last year or 1 fall with injury or currently using an Ambulatory Assistive Device (Walker, Cane, Wheelchair, Crutches, etc.)? No PATIENT GENDER DATA: Female. status: : No status: NO. PATIENT RELEVANT IMPLANT DATA REVIEWED: Not Applicable PATIENT PRESENTS WITH AN IMPLANTABLE OR ATTACHED SPECIAL LIBRARY LIBRARIAN: No RADIOLOGY DEPARTMENT: General X-ray: Exam(s) Completed: Lower Extremity X-Ray(s): Knee, AP / Lat / Tunne / Merchant Bilateral and Wt. Bearing PERIPHERAL IV DATA: Not applicable SIGNED BY: RT Ania(R) November 23, 2024 12:34 [facility]12-23-2024 Instructions* Patient Instructions* Anitra Mancera APRN.CNP - 11/23/2024 11:50 AM EST 1) Labs today 2) Xray on knees 3) Pantoprazole 40 mg daily 4) Ondasetron 4 mg as needed up to 3 x day 5) Has appt. Saturday documented in this encounterThe [facility]12-23-2024 NoteHNO ID: [id number] Author: ANITRA MANCERA APRN.CNP Service: ? Author Type: Clinical Nurse Specialist Type: Progress Notes Filed: 11/23/2024 11:57 Note Text: This is a 89 year old female who presents today with: Patient presents with: Abdominal Pain: Abdominal pain for 1 week, nausea since Saturday. Dark stools HISTORY OF PRESENT ILLNESS: Sachi Grace is a 89 year old female. Patient presents with: Abdominal Pain: Abdominal pain for 1 week, nausea since Saturday. Dark stools Epigastric pain. Belching often. Ulcer in 1984. Took a dose of pepto-bismol last night and stool darker than usual this morning. Epigstric pain increases after she eats. Pain started over a week ago. No fever, but chills No vomiting. No dyspnea. Feet are numb. 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 Dupree-every 6 months Gout, unspecified late great toe, several episodes Hypothyroidism, unspecified Multinodular goiter Dr Boateng Osteoarthritis of both knees Other and unspecified hyperlipidemia diet therapy as of 03/08 Paroxysmal supraventricular tachycardia (HCC) ablation 01/2002 ( in [place], [facility]), follows with Dr. Moreno (prn only) RLS (restless legs syndrome) Tinnitus, unspecified ear Unspecified constipation PAST SURGICAL HISTORY Procedure Laterality Date APPENDECTOMY ARTHRP KNE CONDYLEANDPLATU MEDIALANDLAT COMPARTMENTS 2012 Knee replacement, total bilateral CARPAL TUNNEL 2005 bilateral COLONOSCOPY FLX DX W/COLLJ SPEC WHEN PFRMD 12/14/2002 Colonoscopy COLONOSCOPY FLX DX W/COLLJ SPEC WHEN PFRMD 06/10/2007 COLONOSCOPY FLX DX W/COLLJ SPEC WHEN PFRMD 08/04/2013 Colonoscopy COLONOSCOPY FLX DX W/COLLJ SPEC WHEN PFRMD 10/14/2018 [facility] Stuartl-Repeat 5 years COLONOSCOPY SCREENING 11/15/2023 R Cebul no repeat due to age CORRECT BUNION,SIMPLE left ECHOCARDIOGRAM 10/18/2017 EGD 1985 bleeding ulcer EPS: SVT/VT ABLATION 2001 [facility] ESOPHAGOGASTRODUODENOSCOPY TRANSORAL DIAGNOSTIC 03/24/2018 EGD HERNIA REPAIR HX 09/2020 ventral hernia repair HOLTER 24 HR 10/2017 LOOP RECORDER IMPLANT 01/23/2018 NASAL/SINUS ENDOSCOPY WITH SPHENOIDOTOMY Bilateral 05/15/2019 Dr. Ruffin NASAL/SINUS ENDOSCPY W/MAXILL ANTROSTOMY Bilateral 05/15/2019 Dr. Ruffin NASAL/SINUS ENDOSCPY W/TOTAL ETHMOIDECTOMY Bilateral 05/15/2019 Dr. Ruffin OPEN REPAIR OF ROTATOR CUFF ACUTE 04/2005 Dr. Mejias PAST SURGICAL HISTORY OF 10/1997 partial colectomy ([place], [facility]) PAST SURGICAL HISTORY OF 2011 nerves cut in my back STEREO LOC FOR CORE BRST BX LT 04/24/2010 left STRESS TEST 12/17/2017 TONSILLECTOMY PRIMARY/SECONDARY ALLERGIES Vicodin [Hydrocodone-Acetaminophen], Buspirone, Cocamidopropyl Betaine, Codeine, Percocet [Oxycodone-Acetaminophen], Sulfa (Sulfonamide Antibiotics), and Tetracycline MEDICATIONS Current Outpatient Medications Medication Sig nortriptyline (PAMELOR) 10 mg capsule Take 20 mg by mouth daily at bedtime. rOPINIRole (REQUIP) 0.5 mg tablet Take 1.5 tablets by mouth daily at bedtime. Vit B Complex 100 Combo No.2 (B-100 COMPLEX) 100 mg TbER Take 1 tablet by mouth once daily. levothyroxine (SYNTHROID) 50 mcg tablet Take 50 mcg by mouth. Take 50 mcg on Saturday, and 75 mcg all other days of the week, per ENDO MEDICATION, NON-DATABASE CBD oil fluticasone propionate (ARMONAIR DIGIHALER) 232 mcg/actuation inhaler Inhale 1 Puff as instructed two times a day. levalbuterol tartrate HFA 45 mcg/actuation inhaler Inhale 1-2 Puffs as instructed every 4 hours as needed for wheezing/shortness of breath. Cholecalciferol, Vitamin D3, (VITAMIN D) 25 mcg (1,000 unit) cap Take 1,000 Units by mouth once daily. clonazePAM (KLONOPIN) 0.5 mg tablet Take 0.5 mg by mouth at bedtime as needed. Dr Joon Avery,C,M-Nsdj-Cynjmb (PRESERVISION AREDS) 7,160-113-100 xerd-os-hojp tab Take by mouth. ACETAMINOPHEN 500 MG TAB Take one(1) tablet every four(4) to six(6) hours as needed for pain. gabapentin (NEURONTIN) 100 mg capsule Take 1 capsule by mouth three times a day for 180 days. (Patient not taking: Reported on 11/23/2024) No current facility-administered medications for this visit. FAMILY HISTORY Problem Relation Age of Onset Heart Mother rheumatic; 73 Colon Cancer Father dx'd age 50's Coronary Artery Disease Father age 40s, CABG (among the first done at in [place]) Stroke Sister at 58 of ruptured aneurysm Cancer Brother at 55 (tobacco, agent orange) DVT Sister Social History Tobacco Use Smoking status: Never Smokeless tobacco: Never Vapi (more content not included)...[facility]12[facility] History of Present illness Narrative* Anitra Mancera APRN.AUTOMOBILE RENTAL AGENT - 11/23/2024 11:35 AM EST This is a 89 year old female who presents today with: Patient presents with: Abdominal Pain: Abdominal pain for 1 week, nausea since Saturday. Dark stools HISTORY OF PRESENT ILLNESS: Sachi Grace is a 89 year old female. Patient presents with: Abdominal Pain: Abdominal pain for 1 week, nausea since Saturday. Dark stools Epigastric pain. Belching often. Ulcer in 1984. Took a dose of pepto-bismol last night and stool darker than usual this morning. Epigstric pain increases after she eats. Pain started over a week ago. No fever, but chills No vomiting. No dyspnea. Feet are numb. 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 Dupree-every 6 months Gout, unspecified late great toe, several episodes Hypothyroidism, unspecified Multinodular goiter Dr Boateng Osteoarthritis of both knees Other and unspecified hyperlipidemia diet therapy as of 03/08 Paroxysmal supraventricular tachycardia (HCC) ablation 01/2002 ( in [place], [facility]), follows with Dr. Moreno (prn only) RLS (restless legs syndrome) Tinnitus, unspecified ear Unspecified constipation PAST SURGICAL HISTORY Procedure Laterality Date APPENDECTOMY ARTHRP KNE CONDYLE&PLATU MEDIAL&LAT COMPARTMENTS 2011 Knee replacement, total bilateral CARPAL TUNNEL 2005 bilateral COLONOSCOPY FLX DX W/COLLJ SPEC WHEN PFRMD 12/14/2002 Colonoscopy COLONOSCOPY FLX DX W/COLLJ SPEC WHEN PFRMD 06/10/2007 COLONOSCOPY FLX DX W/COLLJ SPEC WHEN PFRMD 08/04/2013 Colonoscopy COLONOSCOPY FLX DX W/COLLJ SPEC WHEN PFRMD 10/14/2018 [facility]-Repeat 5 years COLONOSCOPY SCREENING 11/15/2023 R Cebul no repeat due to age CORRECT BUNION,SIMPLE left ECHOCARDIOGRAM 10/18/2017 EGD 1985 bleeding ulcer EPS: SVT/VT ABLATION 2001 [facility] ESOPHAGOGASTRODUODENOSCOPY TRANSORAL DIAGNOSTIC 03/24/2018 EGD HERNIA REPAIR HX 09/2020 ventral hernia repair HOLTER 24 HR 10/2017 LOOP RECORDER IMPLANT 01/23/2018 NASAL/SINUS ENDOSCOPY WITH SPHENOIDOTOMY Bilateral 05/15/2019 Dr. Ruffin NASAL/SINUS ENDOSCPY W/MAXILL ANTROSTOMY Bilateral 05/15/2019 Dr. Ruffin NASAL/SINUS ENDOSCPY W/TOTAL ETHMOIDECTOMY Bilateral 05/15/2019 Dr. Ruffin OPEN REPAIR OF ROTATOR CUFF ACUTE 04/2005 Dr. Mejias PAST SURGICAL HISTORY OF 10/1997 partial colectomy ([place], [facility]) PAST SURGICAL HISTORY OF 2011 nerves cut in my back STEREO LOC FOR CORE BRST BX LT 04/24/2010 left STRESS TEST 12/17/2017 TONSILLECTOMY PRIMARY/SECONDARY <AGE 12 ALLERGIES Vicodin [Hydrocodone-Acetaminophen], Buspirone, Cocamidopropyl Betaine, Codeine, Percocet[Oxycodone-Acetaminophen], Sulfa (Sulfonamide Antibiotics), and Tetracycline MEDICATIONS Current Outpatient Medications Medication Sig nortriptyline (PAMELOR) 10 mg capsule Take 20 mg by mouth daily at bedtime. rOPINIRole (REQUIP) 0.5 mg tablet Take 1.5 tablets by mouth daily at bedtime. Vit B Complex 100 Combo No.2 (B-100 COMPLEX) 100 mg TbER Take 1 tablet by mouth once daily. levothyroxine (SYNTHROID) 50 mcg tablet Take 50 mcg by mouth. Take 50 mcg on Saturday, and 75 mcg allother days of the week, per ENDO MEDICATION, NON-DATABASE CBD oil fluticasone propionate (ARMONAIR DIGIHALER) 232 mcg/actuation inhaler Inhale 1 Puff as instructed two times a day. levalbuterol tartrate HFA 45 mcg/actuation inhaler Inhale 1-2 Puffs as instructed every 4 hours as needed for wheezing/shortness of breath. Cholecalciferol, Vitamin D3, (VITAMIN D) 25 mcg (1,000 unit) cap Take 1,000 Units by mouth once daily. clonazePAM (KLONOPIN) 0.5 mg tablet Take 0.5 mg by mouth at bedtime as needed. Dr Dupree vit A,C,A-Tnoq-Mvbglb (PRESERVISION AREDS) 7,160-113-100 qprf-at-kxnt tab Take by mouth. ACETAMINOPHEN 500 MG TAB Take one(1) tablet every four(4) to six(6) hours as needed for pain. gabapentin (NEURONTIN) 100 mg capsule Take 1 capsule by mouth three times a day for 180 days. (Patient not taking: Reported on 11/23/2024) No current facility-administered medications for this visit. FAMILY HISTORY Problem Relation Age of Onset Heart Mother rheumatic; 73 Colon Cancer Father dx'd age 50's Coronary Artery Disease Father age 40s, CABG (among the first done at in [place]) Stroke Sister at 58 of ruptured aneurysm Cancer Brother at 55 (tobacco, agent orange) DVT Sister Social History Tobacco Use Smoking status: Never Smokeless tobacco: Never Vaping Use Vaping status: Never Used Substance Use Topics Alcohol use: No Drug use: No EXAM: BP 114/68 Pulse 72 Temp 36.6 C (97.9 F) (Tympanic) Wt 57.6 kg (127 lb) SpO2 94% BMI 24.80kg/m PHYSICAL EXAM: Physical Exam Vitals reviewed. Constitutional: Appearance: Normal appearance. Cardiovascular: Rate and Rhythm: Normal rate and regular rhythm. Pulses: Normal pulses. Heart sounds: Normal heart sounds. Pulmonary: Effort: Pulmonary effort is normal. Breath sounds: Normal breath sounds. Abdominal: General: Bowel sounds are normal. There is no distension. Palpations: Abdomen is soft. Tenderness: There is no abdominal tenderness. There is no guarding or rebound. Musculoskeletal: Comments: Both knees hurting medially, no instability Neurological: Mental Status: She is alert and oriented to person, place, and time. LABS: ASSESSMENT/PLAN: 1. 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 Abnormal serum level of lipase - ICD9: 790.5, ICD10: R74.8 Epigastric pain 3. Belching - ICD9: 787.3, ICD10: R14.2 Check labs form PUD - COMPLETE BLOOD COUNT AND DIFFERENTIAL - BASIC METABOLIC PANEL - H PYLORI IGG AB - LIPASE - AMYLASE - PANTOPRAZOLE 40 MG TABLET,DELAYED RELEASE - IRON AND TIBC - ONDANSETRON HCL 4 MG TABLET 4. Epigastric pain - ICD9: 789.06, ICD10: R10.13 Differential Diagnosis includes GERD, PUD, and Gastritis - Continue treatment with Pantoprazole 40 mg QD - COMPLETE BLOOD COUNT AND DIFFERENTIAL - BASIC METABOLIC PANEL - H PYLORI IGG AB - LIPASE - AMYLASE - PANTOPRAZOLE 40 MG TABLET,DELAYED RELEASE - IRON AND TIBC - ONDANSETRON HCL 4 MG TABLET 5. Acute peptic ulcer, site unspecified, without hemorrhage or perforation - ICD9: 533.30, ICD10: K27.3 Check labs - IRON AND TIBC 6. Pain in both knees, unspecified chronicity - ICD9: 719.46, ICD10: M25.561, M25.562 Check Xrays - XR KNEE GENERAL 4V AP BOTH/PA BOTH/LAT/MERC BILATERAL Discussed treatment plan and patient voices understanding. Patient's questions answered appropriately. Medications and potential side effects were discussed and patient voices understanding. Return to the office as scheduled or as needed for worsening/no improvement. Anitra Mancera APRN.CNP [facility] Tele[facility] Note * Telephone Encounter - Anitra Mancera APRN.CNP - 11/16/2024 11:38 AM EST The following approved medication requests have been transmitted electronically. Requested Prescriptions Pending Prescriptions Disp Refills rOPINIRole (REQUIP) 0.5 mg tablet 135 tablet 1 Sig: Take 1.5 tablets by mouth daily at bedtime. Anitra Mancera APRN.CNP [facility]12-16-2024 Miscellaneous Notes* Telephone Encounter - Anitra Mancera APRN.CNP - 11/16/2024 11:38 AM EST The following approved medication requests have been transmitted electronically. Requested Prescriptions Pending Prescriptions Disp Refills rOPINIRole (REQUIP) 0.5 mg tablet 135 tablet 1 Sig: Take 1.5 tablets by mouth daily at bedtime. Anitra Mancera APRN.CNP * Telephone Encounter - Emi Santiago - 11/16/2024 8:37 AM EST Prescription Refill Information The patient has been identified by name and date of : Yes Caregiver verified no other encounters exist for this prescription request: Yes Caregiver confirmed with patient/requestor that no other refills are due, in the near future, with this provider at this time: Yes The last office visit in the department: 11-03-24 Does the patient have a future office visit with this provider/department: Yes Requested Prescriptions Pending Prescriptions Disp Refills rOPINIRole (REQUIP) 0.5 mg tablet 135 tablet 1 Sig: Take 1.5 tablets by mouth daily at bedtime. Emi Santiago November 16, 2024 8:38 AM [facility] Telephone encounter Note * Telephone Encounter - Emi Santiago - 11/16/2024 8:37 AM EST Prescription Refill Information The patient has been identified by name and date of : Yes Caregiver verified no other encounters exist for this prescription request: Yes Caregiver confirmed with patient/requestor that no other refills are due, in the near future, with this provider at this time: Yes The last office visit in the department: 11-03-24 Does the patient have a future office visit with this provider/department: Yes Requested Prescriptions Pending Prescriptions Disp Refills rOPINIRole (REQUIP) 0.5 mg tablet 135 tablet 1 Sig: Take 1.5 tablets by mouth daily at bedtime. Emi Santiago November 16, 2024 8:38 AM [facility]12-12-[facility] Telephone encounter Note* Telephone Encounter - Anitra Mancera APRN.CNP - 11/12/2024 7:57 AM EST Order placed for endo Please facilitate [facility]12-12-[facility] Miscellaneous Notes* Telephone Encounter - Anitra Mancera APRN.CNP - 11/12/2024 7:57 AM EST Order placed for endo Please facilitate * Telephone Encounter - Skylar Spears LPN - 11/11/2024 8:35 AM EST 1)FYI: Pt wanted you to know last week pt's Nortriptyline was increased to 50 mg at bed time. Pt felt this was to much so last Saturday she took 30 mg and also on Saturday she took 30 mg and had to get up during the night and passed out. Pt reports she stopped the Nortriptyline and just taking the Gabapentin and doing fine. 2) Pt requesting a referral to Endocrinolgy. She has a doctor she sees in [place] and has an apt today. Pt will keep this apt but with her age she does not want to continue to travel to [place] and wants to go to Dr. Dempsey. Please review and approve referral, then contact pt back and help her get an apt . Skylar Spears LPN [facility]12[facility] Telephone encounter Note * Telephone Encounter - Skylar Spears LPN - 11/11/2024 8:35 AM EST 1)FYI: Pt wanted you to know last week pt's Nortriptyline was increased to 50 mg at bed time. Pt felt this was to much so last Saturday she took 30 mg and also on Saturday she took 30 mg and had to get up during the night and passed out. Pt reports she stopped the Nortriptyline and just taking the Gabapentin and doing fine. 2) Pt requesting a referral to Endocrinolgy. She has a doctor she sees in [place] and has an apt today. Pt will keep this apt but with her age she does not want to continue to travel to [place] and wants to go to Dr. Dempsey. Please review and approve referral, then contact pt back and help her get an apt . Skylar Spears LPN [facility]12-10-2024 Telephone encounter Note* Telephone Encounter - Alix Garcia RN - 11/10/2024 3:45 PM EST Called and left a voicemail for the Patient to call back and ask for a nurse to receive the providers message. Alix Garcia RN [facility]12-10-2024 Miscellaneous Notes* Telephone Encounter - Alix Garcia RN - 11/10/2024 3:45 PM EST Called and left a voicemail for the Patient to call back and ask for a nurse to receive the providers message. Alix Garcia RN * Telephone Encounter - Anitra Mancera APRN.CNP - 11/10/2024 2:43 PM EST Please let pt. Know that mammogram was negative. Recheck in 1 year. * Telephone Encounter - Grupo Cervantes MA - 11/10/2024 2:19 PM EST Scan on 11/10/2024 10:26 AM by Provider, TABITHA Arce: Mammography documented [facility]The [facility]12-[facility] Telephone encounter Note * Telephone Encounter - Anitra Mancera APRN.CNP - 11/10/2024 2:43 PM EST Please let pt. Know that mammogram was negative. Recheck in 1 year. [facility]12-10-[facility] Telephone encounter Note* Telephone Encounter - Grupo Cervantes MA - 11/10/2024 2:19 PM EST Scan on 11/10/2024 10:26 AM by Provider, TABITHA Arce: Mammography [facility]12-05-[facility] Telephone encounter Note* Telephone Encounter - Anitra Mancera APRN.CNP - 11/05/2024 3:53 PM EST Sent [facility]12-05-20[facility] Miscellaneous Notes* Telephone Encounter - Anitra Mancera APRN.CNP - 11/05/2024 3:53 PM EST Sent * Telephone Encounter - Emi Santiago - 11/05/2024 11:41 AM EST Patient is requesting medication that is : Patient last seen: 11-03-24 Future visit scheduled: yes PHARMACY: [facility] [facility]12[facility] Telephone encounter Note * Telephone Encounter - Emi Santiago - 11/05/2024 11:41 AM EST Patient is requesting medication that is : Patient last seen: 11-03-24 Future visit scheduled: yes PHARMACY: [facility] [facility] Telephone encounter Note* Telephone Encounter - Zulma Benites MA - 11/05/2024 11:11 AM EST Patient notified of provider message that it is ok to retry Gabapentin, but let her know if she hassimilar reaction, to call back. She is agreeable and verbalizes understanding. Zulma Benites MA November 05, 2024 11:15 AM [facility] Miscellaneous Notes* Telephone Encounter - Zulma Benites MA - 11/05/2024 11:11 AM EST Patient notified of provider message that it is ok to retry Gabapentin, but let her know if she hassimilar reaction, to call back. She is agreeable and verbalizes understanding. Zulma Benites MA November 05, 2024 11:15 AM * Telephone Encounter - Anitra Mancera APRN.RUSTY - 11/05/2024 10:40 AM EST Ok. She has not tolerated gabapentin in past either. She can retry and let me know if working but had the same complaints on gabapentin * Telephone Encounter - Sharon Paul RN - 11/05/2024 10:07 AM EST Patient calls and states that she increased nortriptyline from 20 mg to 30 mg on Saturday night and Saturday night. Patient reports that last night (Saturday) she got dizzy and she fell. Patient hasleft arm bruising. Patient denies hitting head and other injuries. Patient does not want to take increase dose of medication due to this. Patient is asking about Gabapentin. Please review and advise, Sharon Paul RN [facility]12-[facility] Telephone encounter Note * Telephone Encounter - Zulma Benites MA - 11/05/2024 11:03 AM EST Unsure how to check. I can see order was scanned. I just faxed results to provider. Zulma Benites MA November 05, 2024 11:04 AM [facility] Miscellaneous Notes* Telephone Encounter - Zulma Benites MA - 11/05/2024 11:03 AM EST Unsure how to check. I can see order was scanned. I just faxed results to provider. Zulma Benites MA November 05, 2024 11:04 AM * Telephone Encounter - Bridgette Shaw - 11/05/2024 10:12 AM EST Patient calling wanting to make sure that the TSH, CMP, and Vitamin D lab results have been sent toDr. Angulo. External order in scanned docs from 11/03/24. documented in [facility] encounterThe [facility]12-[facility] Telephone encounter Note * Telephone Encounter - Anitra Mancera APRN.CNP - 11/05/2024 10:40 AM EST Ok. She has not tolerated gabapentin in past either. She can retry and let me know if working but had the same complaints on gabapentin [facility] Telephone encounter Note* Telephone Encounter - Bridgette Shaw - 11/05/2024 10:12 AM EST Patient calling wanting to make sure that the TSH, CMP, and Vitamin D lab results have been sent toDr. Angulo. External order in scanned docs from 11/03/24. [facility] Tele[facility] encounter Note* Telephone Encounter - Sharon Paul RN - 11/05/2024 10:07 AM EST Patient calls and states that she increased nortriptyline from 20 mg to 30 mg on Saturday night and Saturday night. Patient reports that last night (Saturday) she got dizzy and she fell. Patient hasleft arm bruising. Patient denies hitting head and other injuries. Patient does not want to take increase dose of medication due to this. Patient is asking about Gabapentin. Please review and advise, Sharon Paul RN [facility]12-03-2024 Instructions* Patient Instructions* Anitra Mancera APRN.CNP - 11/03/2024 3:14 PM EST 1) nortriptyline 50 mg at bedtime 2) labs today documented in [facility] encounterThe [facility]12-[facility]24 NoteHNO ID: [id number] Author: ANITRA MANCERA APRN.RUSTY Service: ? Author Type: Clinical Nurse Specialist Type: Progress Notes Filed: 11/03/2024 15:14 Note Text: This is a 89 year old female who presents today with: Patient presents with: Mouth/Lip Problem: Burning Mouth HISTORY OF PRESENT ILLNESS: Sachi Grace is a 89 year old female. Patient presents with: Mouth/Lip Problem: Burning Mouth Saw ENT, told he doesn't think mouth pain is burning mouth. Burning sensation upper lip, + behind teeth, and tip tongue. Ongoing since July. Nystatin doesn't help. Pain varies in intensity. Eating makes it worse. Drinking doesn't seem to affect it. Cold makes it worse. 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 Dupree-every 6 months Gout, unspecified late great toe, several episodes Hypothyroidism, unspecified Multinodular goiter Dr Boateng Osteoarthritis of both knees Other and unspecified hyperlipidemia diet therapy as of 03/08 Paroxysmal supraventricular tachycardia (HCC) ablation 01/2002 ( in [place], [facility]), follows with Dr. Moreno (prn only) RLS (restless legs syndrome) Tinnitus, unspecified ear Unspecified constipation PAST SURGICAL HISTORY Procedure Laterality Date APPENDECTOMY ARTHRP KNE CONDYLEANDPLATU MEDIALANDLAT COMPARTMENTS 2011 Knee replacement, total bilateral CARPAL TUNNEL 2005 bilateral COLONOSCOPY FLX DX W/COLLJ SPEC WHEN PFRMD 12/14/2002 Colonoscopy COLONOSCOPY FLX DX W/COLLJ SPEC WHEN PFRMD 06/10/2007 COLONOSCOPY FLX DX W/COLLJ SPEC WHEN PFRMD 08/04/2013 Colonoscopy COLONOSCOPY FLX DX W/COLLJ SPEC WHEN PFRMD 10/14/2018 [facility]-Repeat 5 years COLONOSCOPY SCREENING 11/15/2023 R [place] no repeat due to age CORRECT BUNION,SIMPLE left ECHOCARDIOGRAM 10/18/2017 EGD 1985 bleeding ulcer EPS: SVT/VT ABLATION 2001 [facility] ESOPHAGOGASTRODUODENOSCOPY TRANSORAL DIAGNOSTIC 03/24/2018 EGD HERNIA REPAIR HX 09/2020 ventral hernia repair HOLTER 24 HR 10/2017 LOOP RECORDER IMPLANT 01/23/2018 NASAL/SINUS ENDOSCOPY WITH SPHENOIDOTOMY Bilateral 05/15/2019 Dr. Ruffin NASAL/SINUS ENDOSCPY W/MAXILL ANTROSTOMY Bilateral 05/15/2019 Dr. Ruffin NASAL/SINUS ENDOSCPY W/TOTAL ETHMOIDECTOMY Bilateral 05/15/2019 Dr. Ruffin OPEN REPAIR OF ROTATOR CUFF ACUTE 04/2005 Dr. Mejias PAST SURGICAL HISTORY OF 10/1997 partial colectomy ([place], [facility]) PAST SURGICAL HISTORY OF 2011 nerves cut in my back STEREO LOC FOR CORE BRST BX LT 04/24/2010 left STRESS TEST 12/17/2017 TONSILLECTOMY PRIMARY/SECONDARY ALLERGIES Vicodin [Hydrocodone-Acetaminophen], Buspirone, Cocamidopropyl Betaine, Codeine, Percocet [Oxycodone-Acetaminophen], Sulfa (Sulfonamide Antibiotics), and Tetracycline MEDICATIONS Current Outpatient Medications Medication Sig Vit B Complex 100 Combo No.2 (B-100 COMPLEX) 100 mg TbER Take 1 tablet by mouth once daily. levothyroxine (SYNTHROID) 50 mcg tablet Take 50 mcg by mouth. Take 50 mcg on Saturday, and 75 mcg all other days of the week, per ENDO rOPINIRole (REQUIP) 0.5 mg tablet Take 1.5 tablets by mouth daily at bedtime. MEDICATION, NON-DATABASE CBD oil fluticasone propionate (ARMONAIR DIGIHALER) 232 mcg/actuation inhaler Inhale 1 Puff as instructed two times a day. levalbuterol tartrate HFA 45 mcg/actuation inhaler Inhale 1-2 Puffs as instructed every 4 hours as needed for wheezing/shortness of breath. nortriptyline (PAMELOR) 10 mg capsule Take 1 capsule by mouth every 12 hours. Cholecalciferol, Vitamin D3, (VITAMIN D) 25 mcg (1,000 unit) cap Take 1,000 Units by mouth once daily. clonazePAM (KLONOPIN) 0.5 mg tablet Take 0.5 mg by mouth at bedtime as needed. Dr Joon nolasco A,C,B-Vuds-Yiljgo (PRESERVISION AREDS) 7,160-113-100 lpzy-nz-cwih tab Take by mouth. ACETAMINOPHEN 500 MG TAB Take one(1) tablet every four(4) to six(6) hours as needed for pain. No current facility-administered medications for this visit. FAMILY HISTORY Problem Relation Age of Onset Heart Mother rheumatic; 73 Colon Cancer Father dx'd age 50's Coronary Artery Disease Father age 40s, CABG (among the first done at in [place]) Stroke Sister at 58 of ruptured aneurysm Cancer Brother at 55 (tobacco, agent orange) DVT Sister Social History Tobacco Use Smoking status: Never Smokeless tobacco: Never Vaping Use Vaping status: Never Used Substance Use Topics Alcohol use: No Drug use: No EXAM: BP 122/68 Pulse 64 Resp 16 Wt 57.6 kg (127 lb) BMI 24.80 kg/m? PHYSICAL EXAM: Physical Exam Vitals reviewed. Constitutional: Appearance: Normal appe (more content not included)...[facility] 11-03-2024 History of Present illness Narrative* Anitra Mancera APRN.AUTOMOBILE RENTAL AGENT - 11/03/2024 2:50 PM EST This is a 89 year old female who presents today with: Patient presents with: Mouth/Lip Problem: Burning Mouth HISTORY OF PRESENT ILLNESS: Sachi Grace is a 89 year old female. Patient presents with: Mouth/Lip Problem: Burning Mouth Saw ENT, told he doesn't think mouth pain is burning mouth. Burning sensation upper lip, + behindteeth, and tip tongue. Ongoing since July. Nystatin doesn't help. Pain varies in intensity. Eating makes it worse. Drinking doesn't seem to affect it. Cold makes it worse. 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 Dupree-every 6 months Gout, unspecified late great toe, several episodes Hypothyroidism, unspecified Multinodular goiter Dr Boateng Osteoarthritis of both knees Other and unspecified hyperlipidemia diet therapy as of 03/08 Paroxysmal supraventricular tachycardia (HCC) ablation 01/2002 ( in [place], [facility]), follows with Dr. Moreno (prn only) RLS (restless legs syndrome) Tinnitus, unspecified ear Unspecified constipation PAST SURGICAL HISTORY Procedure Laterality Date APPENDECTOMY ARTHRP KNE CONDYLE&PLATU MEDIAL&LAT COMPARTMENTS 2012 Knee replacement, total bilateral CARPAL TUNNEL 2004 bilateral COLONOSCOPY FLX DX W/COLLJ SPEC WHEN PFRMD 12/14/2002 Colonoscopy COLONOSCOPY FLX DX W/COLLJ SPEC WHEN PFRMD 06/10/2007 COLONOSCOPY FLX DX W/COLLJ SPEC WHEN PFRMD 08/04/2013 Colonoscopy COLONOSCOPY FLX DX W/COLLJ SPEC WHEN PFRMD 10/14/2018 [facility]-R. Cebul-Repeat 5 years COLONOSCOPY SCREENING 11/15/2023 R Cebul no repeat due to age CORRECT BUNION,SIMPLE left ECHOCARDIOGRAM 10/18/2017 EGD 1985 bleeding ulcer EPS: SVT/VT ABLATION 2001 [facility] ESOPHAGOGASTRODUODENOSCOPY TRANSORAL DIAGNOSTIC 03/24/2018 EGD HERNIA REPAIR HX 09/2020 ventral hernia repair HOLTER 24 HR 10/2017 LOOP RECORDER IMPLANT 01/23/2018 NASAL/SINUS ENDOSCOPY WITH SPHENOIDOTOMY Bilateral 05/15/2019 Dr. Ruffin NASAL/SINUS ENDOSCPY W/MAXILL ANTROSTOMY Bilateral 05/15/2019 Dr. Ruffin NASAL/SINUS ENDOSCPY W/TOTAL ETHMOIDECTOMY Bilateral 05/15/2019 Dr. Ruffin OPEN REPAIR OF ROTATOR CUFF ACUTE 04/2005 Dr. Mejias PAST SURGICAL HISTORY OF 10/1997 partial colectomy ([place], [facility]) PAST SURGICAL HISTORY OF 2011 nerves cut in my back STEREO LOC FOR CORE BRST BX LT 04/24/2010 left STRESS TEST 12/17/2017 TONSILLECTOMY PRIMARY/SECONDARY <AGE 12 ALLERGIES Vicodin [Hydrocodone-Acetaminophen], Buspirone, Cocamidopropyl Betaine, Codeine, Percocet[Oxycodone-Acetaminophen], Sulfa (Sulfonamide Antibiotics), and Tetracycline MEDICATIONS Current Outpatient Medications Medication Sig Vit B Complex 100 Combo No.2 (B-100 COMPLEX) 100 mg TbER Take 1 tablet by mouth once daily. levothyroxine (SYNTHROID) 50 mcg tablet Take 50 mcg by mouth. Take 50 mcg on Saturday, and 75 mcg allother days of the week, per ENDO rOPINIRole (REQUIP) 0.5 mg tablet Take 1.5 tablets by mouth daily at bedtime. MEDICATION, NON-DATABASE CBD oil fluticasone propionate (ARMONAIR DIGIHALER) 232 mcg/actuation inhaler Inhale 1 Puff as instructed two times a day. levalbuterol tartrate HFA 45 mcg/actuation inhaler Inhale 1-2 Puffs as instructed every 4 hours as needed for wheezing/shortness of breath. nortriptyline (PAMELOR) 10 mg capsule Take 1 capsule by mouth every 12 hours. Cholecalciferol, Vitamin D3, (VITAMIN D) 25 mcg (1,000 unit) cap Take 1,000 Units by mouth once daily. clonazePAM (KLONOPIN) 0.5 mg tablet Take 0.5 mg by mouth at bedtime as needed. Dr Dupree vit A,C,U-Byqt-Nazzup (PRESERVISION AREDS) 7,160-113-100 jjps-ti-fkui tab Take by mouth. ACETAMINOPHEN 500 MG TAB Take one(1) tablet every four(4) to six(6) hours as needed for pain. No current facility-administered medications for this visit. FAMILY HISTORY Problem Relation Age of Onset Heart Mother rheumatic; 73 Colon Cancer Father dx'd age 50's Coronary Artery Disease Father age 40s, CABG (among the first done at in [place]) Stroke Sister at 58 of ruptured aneurysm Cancer Brother at 55 (tobacco, agent orange) DVT Sister Social History Tobacco Use Smoking status: Never Smokeless tobacco: Never Vaping Use Vaping status: Never Used Substance Use Topics Alcohol use: No Drug use: No EXAM: BP 122/68 Pulse 64 Resp 16 Wt 57.6 kg (127 lb) BMI 24.80 kg/m PHYSICAL EXAM: Physical Exam Vitals reviewed. Constitutional: Appearance: Normal appearance. HENT: Head: Normocephalic. Mouth/Throat: Comments: No redness, lesions, ecchymosis or drainage from roof of mouth or tip of tongue Cardiovascular: Rate and Rhythm: Normal rate and regular rhythm. Pulses: Normal pulses. Heart sounds: Normal heart sounds. Pulmonary: Effort: Pulmonary effort is normal. Breath sounds: Normal breath sounds. Abdominal: Palpations: Abdomen is soft. Tenderness: There is no abdominal tenderness. There is no guarding. Musculoskeletal: General: Normal range of motion. Skin: General: Skin is warm and dry. Neurological: Mental Status: She is alert and oriented to person, place, and time. LABS: ASSESSMENT/PLAN: 1. Multinodular goiter - ICD9: 241.1, ICD10: E04.2 (primary diagnosis) Seeing endocrinology - COMPLETE BLOOD COUNT AND DIFFERENTIAL - COMPREHENSIVE METABOLIC PANEL - THYROID STIMULATING HORMONE - VITAMIN D 25 HYDROXY - LIPID PANEL, NONFASTING 2. Painful mouth - ICD9: 528.9, ICD10: K13.79 Intolerant of gabapentin, increase nortriptyline 50 mg at bedtime - VITAMIN B12 - MAGNESIUM - LIPID PANEL, NONFASTING 3. Screening for lipid disorders - ICD9: V77.91, ICD10: Z13.220 Check labs - LIPID PANEL, NONFASTING 4. Screening for diabetes mellitus - ICD9: V77.1, ICD10: Z13.1 Check labs - HEMOGLOBIN A1C - LIPID PANEL, NONFASTING 5. Vitamin D deficiency - ICD9: 268.9, ICD10: E55.9 Check labs - VITAMIN D 25 HYDROXY 6. Dyslipidemia - ICD9: 272.4, ICD10: E78.5 - Control undetermined, due for labs - Counseled on healthy diet and regular exercise - LIPID PANEL, NONFASTING Discussed treatment plan and patient voices understanding. Patient's questions answered appropriately. Medications and potential side effects were discussed and patient voices understanding. Return to the office as scheduled or as needed for worsening/no improvement. Anitra Mancera APRN.RUSTY [facility] Telephone encounter Note * Telephone Encounter - Kevin Vang RN - 11/02/2024 4:48 PM EST Patient reports she's had a sore burning mouth since July. Reports she saw Lcuero Mancera, then referred to dentist- dentist referred her to minute clerk for basic traffic- and referred to another doctor. Reports she's had nystatin for weeks, finished it today- did nothing. Reports she took fluconazole pills for 7 days- did nothing. Reports she did a mouth rinse with dexa-something, which had a steroid in it- didn't help. Reports she uses a special tooth paste b/c all the other ones have Cocamidopropyl betaine in them- which she is allergic to. 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 States she couldn't even see the spot, and the drafter plumbing removed a spot the size of a dime. Patient scheduled appt with Lucero Mancera for tomorrow to discuss next steps. [facility]12-02-2024 Miscellaneous Notes* Telephone Encounter - Kevin Vang RN - 11/02/2024 4:48 PM EST Patient reports she's had a sore burning mouth since July. Reports she saw Lucero Mancera, then referred to dentist- dentist referred her to minute clerk for basic traffic- and referred to another doctor. Reports she's had nystatin for weeks, finished it today- did nothing. Reports she took fluconazole pills for 7 days- did nothing. Reports she did a mouth rinse with dexa-something, which had a steroid in it- didn't help. Reports she uses a special tooth paste b/c all the other ones have Cocamidopropyl betaine in them- which she is allergic to. 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 States she couldn't even see the spot, and the drafter plumbing removed a spot the size of a dime. Patient scheduled appt with Lucero Mancera for tomorrow to discuss next steps. documented [facility]The [facility]10-[facility] Telephone encounter Note * Telephone Encounter - Alix Garcia RN - 09/17/2024 8:28 AM EDT Pt called and is notified of providers message and instructions. Pt voices understanding and statesshe is going to stop the Gabapentin. Looks like it was already removed from her medication list. Alix Garcia RN [facility]10-17-2024 Miscellaneous Notes* Telephone Encounter - Alix Garcia RN - 09/17/2024 8:28 AM EDT Pt called and is notified of providers message and instructions. Pt voices understanding and statesshe is going to stop the Gabapentin. Looks like it was already removed from her medication list. Alix Garcia RN * Telephone Encounter - Anitra Mancera APRN.CNP - 09/17/2024 7:57 AM EDT Yes. Go ahead and stop. We can't reduce it if it hasn't helped. Sorry. * Telephone Encounter - Soha Azevedo LPN - 09/16/2024 9:33 AM EDT Pt. is taking Gabapentin for burning mouth syndrome. She feels dizziness and palpitations at times.Should she continue to take this. Not really helping with pain. Seeing a specialist in 3 weeks. Please advise. documented in [facility]The [facility]10-17-[facility]24 Telephone encounter Note * Telephone Encounter - Anitra Mancera APRN.CNP - 09/17/2024 7:57 AM EDT Yes. Go ahead and stop. We can't reduce it if it hasn't helped. Sorry. [facility] Telephone encounter Note* Telephone Encounter - Soha Azevedo LPN - 09/16/2024 9:33 AM EDT Pt. is taking Gabapentin for burning mouth syndrome. She feels dizziness and palpitations at times.Should she continue to take this. Not really helping with pain. Seeing a specialist in 3 weeks. Please advise. [facility] Work Phone: [phone] 537-956310-10-2024 Telephone encounter Note* Telephone Encounter - Jeyson Snowden MA - 09/10/2024 9:22 AM EDT Order faxed to [facility] [phone] Patient notified via voicemail Jeyson Snowden MA [facility]10-10-2024 Miscellaneous Notes* Telephone Encounter - Jeyson Snowden MA - 09/10/2024 9:22 AM EDT Order faxed to [facility] [phone] Patient notified via voicemail Jeyson Snowden MA * Telephone Encounter - Anitra Mancera APRN.CNP - 09/10/2024 7:53 AM EDT Mammogram ordered * Telephone Encounter - Lily Soriano LPN - 09/09/2024 3:06 PM EDT Please file so we can route to [facility]. * Telephone Encounter - Jenn Nelson - 09/09/2024 2:36 PM EDT Pt called states she gets her Mammograms done at the [facility]. She would like theorder sent over there. documented in [facility] encounterThe [facility]10-10-2024 Telephone encounter Note * Telephone Encounter - Anitra Mancera APRN.CNP - 09/10/2024 7:53 AM EDT Mammogram ordered [facility]10-09-[facility] Telephone encounter Note* Telephone Encounter - Lily Soriano LPN - 09/09/2024 3:06 PM EDT Please file so we can route to [facility]. [facility] Telephone encounter Note* Telephone Encounter - Jenn Nelson - 09/09/2024 2:36 PM EDT Pt called states she gets her Mammograms done at the [facility]. She would like theorder sent over there. [facility] Work Phone: [phone] 773-339909-20-2024 Instructions* Patient Instructions* Anitra Mancera APRN.CNP - 08/21/2024 9:43 AM EDT 1) Gabapentin 100 mg 3 x day- send me a message if we need to increase dose 2) Lidocaine viscus 1 Tbs as needed to numb mouth 3) B complex that contains B6 4) Keep appt. In December documented in [facility] encounterThe [facility]09-20-2024 NoteHNO ID: [id number] Author: ANITRA MANCERA APRN.CNP Service: ? Author Type: Clinical Nurse Specialist Type: Progress Notes Filed: 08/21/2024 09:45 Note Text: This is a 89 year old female who presents today with: Patient presents with: Mouth/Lip Problem HISTORY OF PRESENT ILLNESS: Sachi Grace is a 89 year old female. Patient presents with: Mouth/Lip Problem Tongue was burning and dentist treated with nystatin. Seemed to get better. 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 Now entire mouth and lips are burning. 05/11 burning. Given Diflucan, that did not help. Has an appt. With oral surgeon but not until October. On clonazepam by Dr. De Anda. 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 Dupree-every 6 months Gout, unspecified late great toe, several episodes Hypothyroidism, unspecified Multinodular goiter Dr Boateng Osteoarthritis of both knees Other and unspecified hyperlipidemia diet therapy as of 03/08 Paroxysmal supraventricular tachycardia (HCC) ablation 01/2002 ( in [place], [facility]), follows with Dr. Moreno (prn only) RLS (restless legs syndrome) Tinnitus, unspecified ear Unspecified constipation PAST SURGICAL HISTORY Procedure Laterality Date APPENDECTOMY ARTHRP KNE CONDYLEANDPLATU MEDIALANDLAT COMPARTMENTS 2011 Knee replacement, total bilateral CARPAL TUNNEL 2005 bilateral COLONOSCOPY FLX DX W/COLLJ SPEC WHEN PFRMD 12/14/2002 Colonoscopy COLONOSCOPY FLX DX W/COLLJ SPEC WHEN PFRMD 06/10/2007 COLONOSCOPY FLX DX W/COLLJ SPEC WHEN PFRMD 08/04/2013 Colonoscopy COLONOSCOPY FLX DX W/COLLJ SPEC WHEN PFRMD 10/14/2018 [facility]-Selam Meyersbul-Repeat 5 years COLONOSCOPY SCREENING 11/15/2023 R Cebul no repeat due to age CORRECT BUNION,SIMPLE left ECHOCARDIOGRAM 10/18/2017 EGD 1985 bleeding ulcer EPS: SVT/VT ABLATION 2001 [facility] ESOPHAGOGASTRODUODENOSCOPY TRANSORAL DIAGNOSTIC 03/24/2018 EGD HERNIA REPAIR HX 09/2020 ventral hernia repair HOLTER 24 HR 10/2017 LOOP RECORDER IMPLANT 01/23/2018 NASAL/SINUS ENDOSCOPY WITH SPHENOIDOTOMY Bilateral 05/15/2019 Dr. Ruffin NASAL/SINUS ENDOSCPY W/MAXILL ANTROSTOMY Bilateral 05/15/2019 Dr. Ruffin NASAL/SINUS ENDOSCPY W/TOTAL ETHMOIDECTOMY Bilateral 05/15/2019 Dr. Ruffin OPEN REPAIR OF ROTATOR CUFF ACUTE 04/2005 Dr. Mejias PAST SURGICAL HISTORY OF 10/1997 partial colectomy ([place], [facility]) PAST SURGICAL HISTORY OF 2011 nerves cut in my back STEREO LOC FOR CORE BRST BX LT 04/24/2010 left STRESS TEST 12/17/2017 TONSILLECTOMY PRIMARY/SECONDARY ALLERGIES Vicodin [Hydrocodone-Acetaminophen], Buspirone, Cocamidopropyl Betaine, Codeine, Percocet [Oxycodone-Acetaminophen], Sulfa (Sulfonamide Antibiotics), and Tetracycline MEDICATIONS Current Outpatient Medications Medication Sig levothyroxine (SYNTHROID) 50 mcg tablet Take 50 mcg by mouth. Take 50 mcg on Saturday, and 75 mcg all other days of the week, per ENDO rOPINIRole (REQUIP) 0.5 mg tablet Take 1.5 tablets by mouth daily at bedtime. MEDICATION, NON-DATABASE CBD oil fluticasone propionate (ARMONAIR DIGIHALER) 232 mcg/actuation inhaler Inhale 1 Puff as instructed two times a day. levalbuterol tartrate HFA 45 mcg/actuation inhaler Inhale 1-2 Puffs as instructed every 4 hours as needed for wheezing/shortness of breath. nortriptyline (PAMELOR) 10 mg capsule Take 1 capsule by mouth every 12 hours. Cholecalciferol, Vitamin D3, (VITAMIN D) 25 mcg (1,000 unit) cap Take 1,000 Units by mouth once daily. clonazePAM (KLONOPIN) 0.5 mg tablet Take 0.5 mg by mouth at bedtime as needed. Dr Dupree vit A,C,N-Ewxn-Bzohsm (PRESERVISION AREDS) 7,160-113-100 hvfh-hm-bnqh tab Take by mouth. ACETAMINOPHEN 500 MG TAB Take one(1) tablet every four(4) to six(6) hours as needed for pain. fluconazole (DIFLUCAN) 100 mg tablet Take 1 tablet by mouth every afternoon. (Patient not taking: Reported on 08/21/2024) melatonin 10 mg cap Take by mouth. (Patient not taking: Reported on 08/21/2024) No current facility-administered medications for this visit. FAMILY HISTORY Problem Relation Age of Onset Heart Mother rheumatic; 73 Colon Cancer Father dx'd age 50's Coronary Artery Disease Father age 40s, CABG (among the first done at in [place]) Stroke Sister at 58 of ruptured aneurysm Cancer Brother at 55 (tobacco, agent orange) DVT Sister Social History Tobacco Use Smoking status: Never Smokeless tobacco: Never Vaping Use Vaping status: Never Used Substance Use Topics Alcohol use: No Drug use: No EXAM: BP 110/68 Pulse 68 Resp 16 Wt 58.2 kg (128 lb 4.9 oz) BMI (more content not included)...[facility]09-20-2024 History of Present illness Narrative* Anitra Mancera APRN.AUTOMOBILE RENTAL AGENT - 08/21/2024 9:28 AM EDT This is a 89 year old female who presents today with: Patient presents with: Mouth/Lip Problem HISTORY OF PRESENT ILLNESS: Sachi Grace is a 89 year old female. Patient presents with: Mouth/Lip Problem Tongue was burning and dentist treated with nystatin. Seemed to get better. 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 Now entire mouth and lips are burning. 6/10 burning. Given Diflucan, that did not help. Has an appt. With oral surgeon but not until October. On clonazepam by Dr. Seese. 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 Dupree-every 6 months Gout, unspecified late great toe, several episodes Hypothyroidism, unspecified Multinodular goiter Dr Boateng Osteoarthritis of both knees Other and unspecified hyperlipidemia diet therapy as of 03/08 Paroxysmal supraventricular tachycardia (HCC) ablation 01/2002 ( in [facility]), follows with Dr. Moreno (prn only) RLS (restless legs syndrome) Tinnitus, unspecified ear Unspecified constipation PAST SURGICAL HISTORY Procedure Laterality Date APPENDECTOMY ARTHRP KNE CONDYLE&PLATU MEDIAL&LAT COMPARTMENTS 2011 Knee replacement, total bilateral CARPAL TUNNEL 2004 bilateral COLONOSCOPY FLX DX W/COLLJ SPEC WHEN PFRMD 12/14/2002 Colonoscopy COLONOSCOPY FLX DX W/COLLJ SPEC WHEN PFRMD 06/10/2007 COLONOSCOPY FLX DX W/COLLJ SPEC WHEN PFRMD 08/04/2013 Colonoscopy COLONOSCOPY FLX DX W/COLLJ SPEC WHEN PFRMD 10/14/2018 [facility]-R. Cebul-Repeat 5 years COLONOSCOPY SCREENING 11/15/2023 R Cebul no repeat due to age CORRECT BUNION,SIMPLE left ECHOCARDIOGRAM 10/18/2017 EGD 1985 bleeding ulcer EPS: SVT/VT ABLATION 2001 [facility] ESOPHAGOGASTRODUODENOSCOPY TRANSORAL DIAGNOSTIC 03/24/2018 EGD HERNIA REPAIR HX 09/2020 ventral hernia repair HOLTER 24 HR 10/2017 LOOP RECORDER IMPLANT 01/23/2018 NASAL/SINUS ENDOSCOPY WITH SPHENOIDOTOMY Bilateral 05/15/2019 Dr. Ruffin NASAL/SINUS ENDOSCPY W/MAXILL ANTROSTOMY Bilateral 05/15/2019 Dr. Ruffin NASAL/SINUS ENDOSCPY W/TOTAL ETHMOIDECTOMY Bilateral 05/15/2019 Dr. Ruffin OPEN REPAIR OF ROTATOR CUFF ACUTE 04/2005 Dr. Mejias PAST SURGICAL HISTORY OF 10/1997 partial colectomy ([place], [facility]) PAST SURGICAL HISTORY OF 2011 nerves cut in my back STEREO LOC FOR CORE BRST BX LT 04/24/2010 left STRESS TEST 12/17/2017 TONSILLECTOMY PRIMARY/SECONDARY <AGE 12 ALLERGIES Vicodin [Hydrocodone-Acetaminophen], Buspirone, Cocamidopropyl Betaine, Codeine, Percocet[Oxycodone-Acetaminophen], Sulfa (Sulfonamide Antibiotics), and Tetracycline MEDICATIONS Current Outpatient Medications Medication Sig levothyroxine (SYNTHROID) 50 mcg tablet Take 50 mcg by mouth. Take 50 mcg on Saturday, and 75 mcg allother days of the week, per ENDO rOPINIRole (REQUIP) 0.5 mg tablet Take 1.5 tablets by mouth daily at bedtime. MEDICATION, NON-DATABASE CBD oil fluticasone propionate (ARMONAIR DIGIHALER) 232 mcg/actuation inhaler Inhale 1 Puff as instructed two times a day. levalbuterol tartrate HFA 45 mcg/actuation inhaler Inhale 1-2 Puffs as instructed every 4 hours as needed for wheezing/shortness of breath. nortriptyline (PAMELOR) 10 mg capsule Take 1 capsule by mouth every 12 hours. Cholecalciferol, Vitamin D3, (VITAMIN D) 25 mcg (1,000 unit) cap Take 1,000 Units by mouth once daily. clonazePAM (KLONOPIN) 0.5 mg tablet Take 0.5 mg by mouth at bedtime as needed. Dr Dupree vit A,C,Z-Rwnf-Oxjzoc (PRESERVISION AREDS) 7,160-113-100 mqza-ti-ozuu tab Take by mouth. ACETAMINOPHEN 500 MG TAB Take one(1) tablet every four(4) to six(6) hours as needed for pain. fluconazole (DIFLUCAN) 100 mg tablet Take 1 tablet by mouth every afternoon. (Patient not taking: Reported on 08/21/2024) melatonin 10 mg cap Take by mouth. (Patient not taking: Reported on 08/21/2024) No current facility-administered medications for this visit. FAMILY HISTORY Problem Relation Age of Onset Heart Mother rheumatic; 73 Colon Cancer Father dx'd age 50's Coronary Artery Disease Father age 40s, CABG (among the first done at in [place]) Stroke Sister at 58 of ruptured aneurysm Cancer Brother at 55 (tobacco, agent orange) DVT Sister Social History Tobacco Use Smoking status: Never Smokeless tobacco: Never Vaping Use Vaping status: Never Used Substance Use Topics Alcohol use: No Drug use: No EXAM: BP 110/68 Pulse 68 Resp 16 Wt 58.2 kg (128 lb 4.9 oz) BMI 25.06 kg/m PHYSICAL EXAM: Physical Exam Vitals reviewed. Constitutional: Appearance: Normal appearance. HENT: Head: Normocephalic. Mouth/Throat: Mouth: Mucous membranes are dry. Pharynx: No oropharyngeal exudate or posterior oropharyngeal erythema. Comments: No open sores, redness, swelling. Mouth appears normal. Cardiovascular: Rate and Rhythm: Normal rate and regular rhythm. Pulses: Normal pulses. Heart sounds: Normal heart sounds. Pulmonary: Effort: Pulmonary effort is normal. Breath sounds: Normal breath sounds. Neurological: General: No focal deficit present. Mental Status: She is alert and oriented to person, place, and time. Psychiatric: Mood and Affect: Mood normal. Behavior: Behavior normal. LABS: reviewed previous labs ASSESSMENT/PLAN: 1. 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 Patient's questions answered appropriately. Medications and potential side effects were discussed and patient voices understanding. Return to the office as scheduled or as needed for worsening/no improvement. Anitra Mancera APRN.RUSTY documented in [facility] encounter[facility]09-[facility]24 NoteHNO ID: [id number] Author: LINDSEY STAPLETON PA-C Service: ? Author Type: Physician Industrial Design Engineer Type: Progress Notes Filed: 08/12/2024 14:06 Note Text: CHIEF COMPLAINT: Patient presents with: Constipation HPI Sachi Grace is a 89 year old female here today for Constipation. Surg hx pos for partial colectomy (2/2 diverticulitis), appendectomy, ventral hernia repair. Seen last for h/o constipation, weight loss. Tried Linzess 145 mcg w/o improvement so was advised to change to Ibsrela. Pt contacted office 04/2024 and reported she didn't want to try new medication at that time. Weight is stable. Currently taking Miralax in the morning, fiber powder in pm with good relief. Bms are daily, formed consistency, no blood. Father w/ hx of colon CA dx in 60s MRCP 06/2024 IMPRESSION: 1.4 CM CYSTIC LESION WITH SEPTATIONS IN THE PANCREATIC HEAD. A FOLLOW-UP STUDY COULD BE OBTAINED IN ONE YEAR TO ASSESS FOR ANY CHANGE IN SIZE. CT abd 04/2024 IMPRESSION: No acute findings in the abdomen or pelvis. 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 Stable asymmetrically RIGHT adnexa compared to LEFT, stable from prior. Consider further evaluation dedicated pelvic ultrasound. KUB 03/2024 moderate/large stool burden IMPRESSION: NO ACUTE ABDOMINAL PATHOLOGY VISUALIZED Colon 11/2023 WC Impression: - Hemorrhoids found on perianal exam. - Diverticulosis in the sigmoid colon. - The examination was otherwise normal. - No specimens collected. OV 04/2024 Scahi Grace is a 88 year old female with PMHx pos for asthma, fibromyalgia, SVT who presents for Constipation (XR 03/24/24. Dulcolax somewhat helps). Surg hx pos for partial colectomy (2/2 diverticulitis), appendectomy, ventral hernia repair. Admits to constipation since 12/2023, states prior to change in Bms was typically going regularly. Stopped buspar 01/2024 due to suspected S/Es constipation but reports constipation persisted even after discontinuation. Lost 7 lbs since sx started and includes weight has been difficult for her to maintain. Will go several weeks without a BM. Has recently started probiotics 2 days ago. Previously tried fibers, regular Miralax w/o any improvement. Notes excessive flatulence daily. Denies abd pain, N/V, bloating, melena. Current Outpatient Medications Medication Sig fluconazole (DIFLUCAN) 100 mg tablet Take 1 tablet by mouth every afternoon. levothyroxine (SYNTHROID) 50 mcg tablet Take 50 mcg by mouth. Take 50 mcg on Saturday, and 75 mcg all other days of the week, per ENDO rOPINIRole (REQUIP) 0.5 mg tablet Take 1.5 tablets by mouth daily at bedtime. melatonin 10 mg cap Take by mouth. MEDICATION, NON-DATABASE CBD oil fluticasone propionate (ARMONAIR DIGIHALER) 232 mcg/actuation inhaler Inhale 1 Puff as instructed two times a day. levalbuterol tartrate HFA 45 mcg/actuation inhaler Inhale 1-2 Puffs as instructed every 4 hours as needed for wheezing/shortness of breath. nortriptyline (PAMELOR) 10 mg capsule Take 1 capsule by mouth every 12 hours. Cholecalciferol, Vitamin D3, (VITAMIN D) 25 mcg (1,000 unit) cap Take 1,000 Units by mouth once daily. clonazePAM (KLONOPIN) 0.5 mg tablet Take 0.5 mg by mouth at bedtime as needed. Dr Dupree vit A,C,W-Ozyv-Jvazbj (PRESERVISION AREDS) 7,160-113-100 docf-qd-bxfb tab Take by mouth. ACETAMINOPHEN 500 MG TAB Take one(1) tablet every four(4) to six(6) hours as needed for pain. No current facility-administered medications for this visit. ALLERGIES Allergen Reactions Vicodin [Hydrocodon* GI Upset Buspirone Intolerance Anxious, jittery, felt worse, RLS worse. Cocamidopropyl Beta* Rash itching, rash Codeine GI Upset Percocet [Oxycodone* GI Upset Sulfa (Sulfonamide * Hives, Swelling lips swelled up Tetracycline GI Upset Social History Tobacco Use Smoking status: Never Smokeless tobacco: Never Vaping Use Vaping status: Never Used Substance Use Topics Alcohol use: No Drug use: No PAST MEDICAL HISTORY No date: Anosmia Comment: loss of taste, not smell No date: Asthma Comment: moderate persistant No date: Bilateral sensorineural hearing loss No date: Disorder of bone and cartilage, unspecified Comment: osteopenia, on actonel (Kilo) No date: Diverticulitis Comment: s/p partial colectomy No date: Family history of colon cancer in father No date: Fibromyalgia 1994: Generalized anxiety disorder Comment: Dr. Dupree-every 6 months late : Gout, unspecified Comment: great toe, several episodes No date: Hypothyroidism, unspecified No date: Multinodular goiter Comment: Dr Boateng No date: Osteoarthritis of both knees No date: Other and unspecified hyperlipidemia Comment: diet therapy as of 03/08 No date: Paroxysmal supraventricular tachycardia (HCC) Comment: ablation 01/2002 ( in [place], [facility]), follows with (more content not included)...[facility]09-11-2024 History of Present illness Narrative* Lindsey Stapleton PA-C - 08/12/2024 1:30 PM EDT CHIEF COMPLAINT: Patient presents with: Constipation HPI Sachi Grace is a 89 year old female here today for Constipation. Surg hx pos for partial colectomy (2/2 diverticulitis), appendectomy, ventral hernia repair. Seen last for h/o constipation, weight loss. Tried Linzess 145 mcg w/o improvement so was advised to change to Ibsrela. Pt contacted juigfo68/[id number] and reported she didn't want to try new medication at that time. Weight is stable. Currently taking Miralax in the morning, fiber powder in pm with good relief. Bms are daily, formed consistency, no blood. Father w/ hx of colon CA dx in 60s MRCP 06/2024 IMPRESSION: 1.4 CM CYSTIC LESION WITH SEPTATIONS IN THE PANCREATIC HEAD. A FOLLOW-UP STUDY COULD BE OBTAINED IN ONE YEAR TO ASSESS FOR ANY CHANGE IN SIZE. CT abd 04/2024 IMPRESSION: No acute findings in the abdomen or pelvis. 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 Stable asymmetrically RIGHT adnexa compared to LEFT, stable from prior. Consider further evaluation dedicated pelvic ultrasound. KUB 03/2024 moderate/large stool burden IMPRESSION: NO ACUTE ABDOMINAL PATHOLOGY VISUALIZED Colon 11/2023 [facility] Impression: - Hemorrhoids found on perianal exam. - Diverticulosis in the sigmoid colon. - The examination was otherwise normal. - No specimens collected. OV 04/2024 Sachi Grace is a 88 year old female with PMHx pos for asthma, fibromyalgia, SVT who presents for Constipation (XR 03/24/24. Dulcolax somewhat helps). Surg hx pos for partial colectomy (2/2 diverticulitis), appendectomy, ventral hernia repair. Admits to constipation since 12/2023, states prior to change in Bms was typically going regularly. Stopped buspar 01/2024 due to suspected S/Es constipation but reports constipation persisted even after discontinuation. Lost 7 lbs since sx started and includes weight has been difficult for her to maintain. Will go several weeks without a BM. Has recently started probiotics 2 days ago. Previously tried fibers, regular Miralax w/o any improvement. Notes excessive flatulence daily. Denies abd pain, N/V, bloating, melena. Current Outpatient Medications Medication Sig fluconazole (DIFLUCAN) 100 mg tablet Take 1 tablet by mouth every afternoon. levothyroxine (SYNTHROID) 50 mcg tablet Take 50 mcg by mouth. Take 50 mcg on Saturday, and 75 mcg allother days of the week, per ENDO rOPINIRole (REQUIP) 0.5 mg tablet Take 1.5 tablets by mouth daily at bedtime. melatonin 10 mg cap Take by mouth. MEDICATION, NON-DATABASE CBD oil fluticasone propionate (ARMONAIR DIGIHALER) 232 mcg/actuation inhaler Inhale 1 Puff as instructed two times a day. levalbuterol tartrate HFA 45 mcg/actuation inhaler Inhale 1-2 Puffs as instructed every 4 hours as needed for wheezing/shortness of breath. nortriptyline (PAMELOR) 10 mg capsule Take 1 capsule by mouth every 12 hours. Cholecalciferol, Vitamin D3, (VITAMIN D) 25 mcg (1,000 unit) cap Take 1,000 Units by mouth once daily. clonazePAM (KLONOPIN) 0.5 mg tablet Take 0.5 mg by mouth at bedtime as needed. Dr Dupree vit A,C,F-Syej-Ksrvwx (PRESERVISION AREDS) 7,160-113-100 szrm-ne-lwaq tab Take by mouth. ACETAMINOPHEN 500 MG TAB Take one(1) tablet every four(4) to six(6) hours as needed for pain. No current facility-administered medications for this visit. ALLERGIES Allergen Reactions Vicodin [Hydrocodon* GI Upset Buspirone Intolerance Anxious, jittery, felt worse, RLS worse. Cocamidopropyl Beta* Rash itching, rash Codeine GI Upset Percocet [Oxycodone* GI Upset Sulfa (Sulfonamide * Hives, Swelling lips swelled up Tetracycline GI Upset Social History Tobacco Use Smoking status: Never Smokeless tobacco: Never Vaping Use Vaping status: Never Used Substance Use Topics Alcohol use: No Drug use: No PAST MEDICAL HISTORY No date: Anosmia Comment: loss of taste, not smell No date: Asthma Comment: moderate persistant No date: Bilateral sensorineural hearing loss No date: Disorder of bone and cartilage, unspecified Comment: osteopenia, on actonel (Kilo) No date: Diverticulitis Comment: s/p partial colectomy No date: Family history of colon cancer in father No date: Fibromyalgia 1994: Generalized anxiety disorder Comment: Dr. Dupree-every 6 months late : Gout, unspecified Comment: great toe, several episodes No date: Hypothyroidism, unspecified No date: Multinodular goiter Comment: Dr Boateng No date: Osteoarthritis of both knees No date: Other and unspecified hyperlipidemia Comment: diet therapy as of 03/08 No date: Paroxysmal supraventricular tachycardia (HCC) Comment: ablation 01/2002 (Dr. joseph pandey, [facility]), follows with Dr. Moreno (prn only) No date: RLS (restless legs syndrome) No date: Tinnitus, unspecified ear No date: Unspecified constipation PAST SURGICAL HISTORY No date: APPENDECTOMY 2012: ARTHRP KNE CONDYLE&PLATU MEDIAL&LAT COMPARTMENTS Comment: Knee replacement, total bilateral 2004: CARPAL TUNNEL Comment: bilateral 12/14/2002: COLONOSCOPY FLX DX W/COLLJ SPEC WHEN PFRMD Comment: Colonoscopy 06/10/2007: COLONOSCOPY FLX DX W/COLLJ SPEC WHEN PFRMD 08/04/2013: COLONOSCOPY FLX DX W/COLLJ SPEC WHEN PFRMD Comment: Colonoscopy 10/14/2018: COLONOSCOPY FLX DX W/COLLJ SPEC [facility]: COLONOSCOPY SCREENING Comment: R Cebul no repeat due to age No date: CORRECT BUNION,SIMPLE Comment: left 10/18/2017: ECHOCARDIOGRAM 1985: EGD Comment: bleeding ulcer 2001: EPS: SVT/VT ABLATION Comment: [facility] 03/24/2018: ESOPHAGOGASTRODUODENOSCOPY TRANSORAL DIAGNOSTIC Comment: EGD 09/2020: HERNIA REPAIR HX Comment: ventral hernia repair 10/2017: HOLTER 24 HR 01/23/2018: LOOP RECORDER IMPLANT 05/15/2019: NASAL/SINUS ENDOSCOPY WITH SPHENOIDOTOMY; Bilateral Comment: Dr. Ruffin 05/15/2019: NASAL/SINUS ENDOSCPY W/MAXILL ANTROSTOMY; Bilateral Comment: Dr. Ruffin 05/15/2019: NASAL/SINUS ENDOSCPY W/TOTAL ETHMOIDECTOMY; Bilateral Comment: Dr. Ruffin 04/2005: OPEN REPAIR OF ROTATOR CUFF ACUTE Comment: Dr. Mejias 10/1997: PAST SURGICAL HISTORY OF Comment: partial colectomy ([place], [facility]) 2012: PAST SURGICAL HISTORY OF Comment: nerves cut in my back 04/24/2010: STEREO LOC FOR CORE BRST BX LT Comment: left 12/17/2017: STRESS TEST No date: TONSILLECTOMY PRIMARY/SECONDARY <AGE 12 FAMILY HISTORY Problem Relation Age of Onset Heart Mother rheumatic; 73 Colon Cancer Father dx'd age 50's Coronary Artery Disease Father age 40s, CABG (among the first done at in [place]) Stroke Sister at 58 of ruptured aneurysm Cancer Brother at 55 (tobacco, agent orange) DVT Sister REVIEW OF SYSTEMS Review of Systems HENT: Positive for mouth sores. All other systems reviewed and are negative. PHYSICAL EXAM BP 108/62 Pulse 80 Ht 152.4 cm (5') Wt 57.2 kg (126 lb) BMI 24.61 kg/m Physical Exam Constitutional: General: She is not in acute distress. Appearance: Normal appearance. She is normal weight. She is not ill-appearing, toxic-appearing or diaphoretic. HENT: Head: Normocephalic and atraumatic. Nose: Nose normal. Eyes: General: No scleral icterus. Right eye: No discharge. Left eye: No discharge. Extraocular Movements: Extraocular movements intact. Conjunctiva/sclera: Conjunctivae normal. Pupils: Pupils are equal, round, and reactive to light. Cardiovascular: Rate and Rhythm: Normal rate and regular rhythm. Pulses: Normal pulses. Heart sounds: Normal heart sounds. No murmur heard. No friction rub. No gallop. Pulmonary: Effort: No respiratory distress. Breath sounds: Normal breath sounds. No stridor. No wheezing, rhonchi or rales. Chest: Chest wall: No tenderness. Abdominal: General: Abdomen is flat. Bowel sounds are normal. There is no distension. Palpations: Abdomen is soft. There is no mass. Tenderness: There is no abdominal tenderness. There is no right CVA tenderness, left CVA tenderness, guarding or rebound. Hernia: No hernia is present. Musculoskeletal: General: Normal range of motion. Cervical back: Normal range of motion and neck supple. Skin: General: Skin is warm and dry. Neurological: General: No focal deficit present. Mental Status: She is alert and oriented to person, place, and time. Psychiatric: Mood and Affect: Mood normal. Behavior: Behavior normal. Assessment/Plan (K59.09) Chronic constipation (primary encounter diagnosis) (K86.9) Pancreatic lesion 1. Chronic constipation - Currently taking Miralax in the morning, fiber powder in pm with good relief - Continue plenty of fluid intake 2. Pancreatic lesion - Advised repeat MRI/CT pancreas 06/2025 for continued surveillance. Pt states it is hard for her to come to [facility] due to location from home so will follow up with PCP to obtain order Follow up in office 6 months/PRN. I spent a total of 15 minutes on the date of the service which included preparing to see the patient, odwe-to-fosf patient care, completing clinical documentation, obtaining and/or reviewing separately obtained history, performing a medically appropriate examination, counseling and educating the pat ient/family/caregiver, ordering medications, tests, or procedures, communicating with other HCPs (not separately reported), independently interpreting results (not separately reported), communicatingresults to the patient/family/caregiver, and care coordination (not separately reported). Lindsey Stapleton PA-C August 12, 2024 1:55 PM documented in this encounterThe [facility]24 NoteHNO ID: [id number] Author: SHOSHANA CHAMBERS APRN.CNM Service: ? Author Type: Content Curator Type: Progress Notes Filed: 07/17/2024 08:29 Note Text: Sachi Grace is a 88 year old female who presents for problem visit HPI: Patient presents today for follow-up ultrasound and MRI. On MRI there is a stable asymmetric right adnexa compared to the left but stable from prior imaging. Patient denies any pain, any vaginal bleeding, or other concerns today. Denies any bloating, early satiety. Referral due to imaging. 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 Dupree-every 6 months late : Gout, unspecified Comment: great toe, several episodes No date: Hypothyroidism, unspecified No date: Multinodular goiter Comment: Dr Boateng No date: Osteoarthritis of both knees No date: Other and unspecified hyperlipidemia Comment: diet therapy as of 03/08 No date: Paroxysmal supraventricular tachycardia (HCC) Comment: ablation 01/2002 (Dr. joseph pandey, [facility]), follows with Dr. Moreno (prn only) No date: RLS (restless legs syndrome) No date: Tinnitus, unspecified ear No date: Unspecified constipation PAST SURGICAL HISTORY No date: APPENDECTOMY 2012: ARTHRP KNE CONDYLEANDPLATU MEDIALANDLAT COMPARTMENTS Comment: Knee replacement, total bilateral 2004: CARPAL TUNNEL Comment: bilateral 12/14/2002: COLONOSCOPY FLX DX W/COLLJ SPEC WHEN PFRMD Comment: Colonoscopy 06/10/2007: COLONOSCOPY FLX DX W/COLLJ SPEC WHEN PFRMD 08/04/2013: COLONOSCOPY FLX DX W/COLLJ SPEC WHEN PFRMD Comment: Colonoscopy 10/14/2018: COLONOSCOPY FLX DX W/COLLJ SPEC WHEN [facility]FRMD [facility]20[facility]: COLONOSCOPY SCREENING Comment: R Cebul no repeat due to age No date: CORRECT BUNION,SIMPLE Comment: left 10/18/2017: ECHOCARDIOGRAM 1985: EGD Comment: bleeding ulcer 2001: EPS: SVT/VT ABLATION Comment: [facility] 03/24/2018: ESOPHAGOGASTRODUODENOSCOPY TRANSORAL DIAGNOSTIC Comment: EGD 09/2020: HERNIA REPAIR HX Comment: ventral hernia repair 10/2017: HOLTER 24 HR 01/23/2018: LOOP RECORDER IMPLANT 05/15/2019: NASAL/SINUS ENDOSCOPY WITH SPHENOIDOTOMY; Bilateral Comment: Dr. Ruffin 05/15/2019: NASAL/SINUS ENDOSCPY W/MAXILL ANTROSTOMY; Bilateral Comment: Dr. Ruffin 05/15/2019: NASAL/SINUS ENDOSCPY W/TOTAL ETHMOIDECTOMY; Bilateral Comment: Dr. Ruffin 04/2005: OPEN REPAIR OF ROTATOR CUFF ACUTE Comment: Dr. Mejias 10/1997: PAST SURGICAL HISTORY OF Comment: partial colectomy ([place], [facility]) 2011: PAST SURGICAL HISTORY OF Comment: nerves cut in my back 04/24/2010: STEREO LOC FOR CORE BRST BX LT Comment: left 12/17/2017: STRESS TEST No date: TONSILLECTOMY PRIMARY/SECONDARY FAMILY HISTORY Problem Relation Age of Onset Heart Mother rheumatic; 73 Colon Cancer Father dx'd age 50's Coronary Artery Disease Father age 40s, CABG (among the first done at in [place]) Stroke Sister at 58 of ruptured aneurysm Cancer Brother at 55 (tobacco, agent orange) DVT Sister Social History Tobacco Use Smoking status: Never Smokeless tobacco: Never Vaping Use Vaping Use: Never used Substance Use Topics Alcohol use: No Drug use: No Current Outpatient Medications Medication Sig levothyroxine (SYNTHROID) 50 mcg tablet Take 50 mcg by mouth. Take 50 mcg on Saturday, and 75 mcg all other days of the week, per ENDO rOPINIRole (REQUIP) 0.5 mg tablet Take 1.5 tablets by mouth daily at bedtime. melatonin 10 mg cap Take by mouth. MEDICATION, NON-DATABASE CBD oil fluticasone propionate (ARMONAIR DIGIHALER) 232 mcg/actuation inhaler Inhale 1 Puff as instructed two times a day. levalbuterol tartrate HFA 45 mcg/actuation inhaler Inhale 1-2 Puffs as instructed every 4 hours as needed for wheezing/shortness of breath. nortriptyline (PAMELOR) 10 mg capsule Take 1 capsule by mouth every 12 hours. Cholecalciferol, Vitamin D3, (VITAMIN D) 25 mcg (1,000 unit) cap Take 1,000 Units by mouth once daily. clonazePAM (KLONOPIN) 0.5 mg tablet Take 0.5 mg by mouth at bedtime as needed. Dr Dupree vit A,C,Y-Hwkz-Cpojom (PRESERVISION AREDS) 7,160-113-100 tudc-hz-sgbx tab Take by mouth. ACETAMINOPHEN 500 MG TAB Take one(1 (more content not included)...[facility]08-07-20[facility] History of Present illness Narrative* Shoshana Chambers APRN.KVNGM - 07/08/2024 1:54 PM EDT Sachi Grace is a 88 year old female who presents for problem visit HPI: Patient presents today for follow-up ultrasound and MRI. On MRI there is a stable asymmetric right adnexa compared to the left but stable from prior imaging. Patient denies any pain, any vaginalbleeding, or other concerns today. Denies any bloating, early satiety. Referral due to imaging. 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 Dupree-every 6 months late : Gout, unspecified Comment: great toe, several episodes No date: Hypothyroidism, unspecified No date: Multinodular goiter Comment: Dr Boateng No date: Osteoarthritis of both knees No date: Other and unspecified hyperlipidemia Comment: diet therapy as of 03/08 No date: Paroxysmal supraventricular tachycardia (HCC) Comment: ablation 01/2002 (Dr. joseph pandey, [facility]), follows with Dr. Moreno (prn only) No date: RLS (restless legs syndrome) No date: Tinnitus, unspecified ear No date: Unspecified constipation PAST SURGICAL HISTORY No date: APPENDECTOMY 2012: ARTHRP KNE CONDYLE&PLATU MEDIAL&LAT COMPARTMENTS Comment: Knee replacement, total bilateral 2005: CARPAL TUNNEL Comment: bilateral 12/14/2002: COLONOSCOPY FLX DX W/COLLJ SPEC WHEN PFRMD Comment: Colonoscopy 06/10/2007: COLONOSCOPY FLX DX W/COLLJ SPEC WHEN PFRMD 08/04/2013: COLONOSCOPY FLX DX W/COLLJ SPEC WHEN PFRMD Comment: Colonoscopy 10/14/2018: COLONOSCOPY FLX DX W/COLLJ SPEC WHEN PFRMD Comment: [facility] Tabares-Repeat 5 years 11/15/2023: COLONOSCOPY SCREENING Comment: R Cebul no repeat due to age No date: CORRECT BUNION,SIMPLE Comment: left 10/18/2017: ECHOCARDIOGRAM 1985: EGD Comment: bleeding ulcer 2001: EPS: SVT/VT ABLATION Comment: [facility] 03/24/2018: ESOPHAGOGASTRODUODENOSCOPY TRANSORAL DIAGNOSTIC Comment: EGD 09/2020: HERNIA REPAIR HX Comment: ventral hernia repair 10/2017: HOLTER 24 HR 01/23/2018: LOOP RECORDER IMPLANT 05/15/2019: NASAL/SINUS ENDOSCOPY WITH SPHENOIDOTOMY; Bilateral Comment: Dr. Ruffin 05/15/2019: NASAL/SINUS ENDOSCPY W/MAXILL ANTROSTOMY; Bilateral Comment: Dr. Ruffin 05/15/2019: NASAL/SINUS ENDOSCPY W/TOTAL ETHMOIDECTOMY; Bilateral Comment: Dr. Ruffin 04/2005: OPEN REPAIR OF ROTATOR CUFF ACUTE Comment: Dr. Mejias 10/1997: PAST SURGICAL HISTORY OF Comment: partial colectomy ([place] [facility]) 2011: PAST SURGICAL HISTORY OF Comment: nerves cut in my back 04/24/2010: STEREO LOC FOR CORE BRST BX LT Comment: left 12/17/2017: STRESS TEST No date: TONSILLECTOMY PRIMARY/SECONDARY <AGE 12 FAMILY HISTORY Problem Relation Age of Onset Heart Mother rheumatic; 73 Colon Cancer Father dx'd age 50's Coronary Artery Disease Father age 40s, CABG (among the first done at in [place]) Stroke Sister at 58 of ruptured aneurysm Cancer Brother at 55 (tobacco, agent orange) DVT Sister Social History Tobacco Use Smoking status: Never Smokeless tobacco: Never Vaping Use Vaping Use: Never used Substance Use Topics Alcohol use: No Drug use: No Current Outpatient Medications Medication Sig levothyroxine (SYNTHROID) 50 mcg tablet Take 50 mcg by mouth. Take 50 mcg on Saturday, and 75 mcg allother days of the week, per ENDO rOPINIRole (REQUIP) 0.5 mg tablet Take 1.5 tablets by mouth daily at bedtime. melatonin 10 mg cap Take by mouth. MEDICATION, NON-DATABASE CBD oil fluticasone propionate (ARMONAIR DIGIHALER) 232 mcg/actuation inhaler Inhale 1 Puff as instructed two times a day. levalbuterol tartrate HFA 45 mcg/actuation inhaler Inhale 1-2 Puffs as instructed every 4 hours as needed for wheezing/shortness of breath. nortriptyline (PAMELOR) 10 mg capsule Take 1 capsule by mouth every 12 hours. Cholecalciferol, Vitamin D3, (VITAMIN D) 25 mcg (1,000 unit) cap Take 1,000 Units by mouth once daily. clonazePAM (KLONOPIN) 0.5 mg tablet Take 0.5 mg by mouth at bedtime as needed. Dr Dupree vit A,C,S-Sjoj-Fvmosa (PRESERVISION AREDS) 7,160-113-100 drgo-fe-dytd tab Take by mouth. ACETAMINOPHEN 500 MG TAB Take one(1) tablet every four(4) to six(6) hours as needed for pain. No current facility-administered medications for this visit. Allergies As of Date: 07/08/2024 Allergen Noted Reaction VICODIN [HYDROCODONE-ACETAMINOPHE*05/04/2013 GI Upset BUSPIRONE 04/21/2024 Intolerance COCAMIDOPROPYL BETAINE 07/27/2020 Rash CODEINE 03/19/2007 GI Upset PERCOCET [OXYCODONE-ACETAMINOPHEN]04/22/2013 GI Upset SULFA (SULFONAMIDE ANTIBIOTICS) 03/19/2007 Hives and Swelling TETRACYCLINE 04/29/2019 GI Upset Fully Assessed 07/08/2024 REVIEW OF SYSTEMS Abdomen: No bloating, early satiety, indigestion, or increased flatulence. No abdominal pain, nausea, vomiting, diarrhea, or constipation. Bladder: No dysuria, gross hematuria, urinary frequency, urinary urgency, or incontinence. Breast: No breast lumps, nipple d/c, overlying skin changes, redness or skin retraction. Expanded ROS: N/A Allergies and current medication updated:Yes EXAM: BP 112/74 Wt 129 lb (58.5kg) GENERAL: pleasant, female in no apparent distress HEENT: Normocephalic and atraumatic NECK: Supple and full range of motion DERMATOLOGY: Normal and without lesions CHEST: Normal inspiratory effort ABDOMEN: soft, non-tender, and no masses PELVIC: deferred BIMANUAL: deferred NEURO: alert and oriented x3,exam grossly non-focal EXTREMITIES: normal 04/27/24 MRI Impression IMPRESSION: No acute findings in the abdomen or pelvis. 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 Stable asymmetrically RIGHT adnexa compared to LEFT, stable from prior. Consider further evaluation dedicated pelvic ultrasound. Pelvis: * Right adnexa measures 3.1 x 2.3 cm (5:92) and is asymmetrically enlarged compared to LEFT. * 2.3 x 1.0 cm RIGHT external iliac chain lymph node (5:90) 06/16/24 Pelvic US, no TV Impression IMPRESSION: Limited examination due to small uterine size and overlying bowel gas shadowing. No mass lesion is identified. The right ovary may be prominent in size without focal lesion. The left ovary is not visualized. ASSESSMENT AND PLAN: 1. 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 Consulted with Dr. Art and reviewed imaging and agrees with plan. Patient asymptomatic. Discussed with patientadditional follow-up if symptoms begin. She is agreeable to plan. Shoshana Chambers APRN.CNM documented in [facility] encounterThe [facility]07-[facility] History of Present illness Narrative* Zulma Packer, RT(R) - 06/26/2024 9:20 AM EDT Radiology Service Progress Note DATE OF SERVICE: June 26, 2024 TIME: 9:21 AM PATIENT IDENTITY VERIFICATION COMPLETED USING TWO (2) STANDARD IDENTIFIERS: Name and Date of confirmed by patient verbally. FALL SCREENING: Has the patient had 2 falls in the last year or 1 fall with injury or currently using an Ambulatory Assistive Device (Walker, Cane, Wheelchair, Crutches, etc.)? No PATIENT GENDER DATA: Female. status: : No status: NO. PATIENT RELEVANT IMPLANT DATA REVIEWED: Yes PATIENT PRESENTS WITH AN IMPLANTABLE OR ATTACHED SPECIAL LIBRARY LIBRARIAN: No ALLERGIES: Reviewed and unchanged CONTRAST ALLERGY: NO. EXAM: MRI - CONTRAST TYPE: GROUP II PERIPHERAL IV DATA: Ambulatory: A peripheral IV was started in the Left antecubital site with a Angio cath: 22 gauge. RADIOLOGY DEPARTMENT: MR; Exam(s) Completed: Body: Pancreas/Biliary SIGNATURE: RT Salvador(Alvin) PATIENT NAME: Sachi Grace DATE: June 26, 2024 TIME: 9:21 AM documented in this encounterThe [facility]07-26-[facility]24 NoteHNO ID: [id number] Author: ZULMA PACKER RT (R) Service: ? Author Type: Technologist Type: Progress Notes Filed: 06/26/2024 09:22 Note Text: Radiology Service Progress Note DATE OF SERVICE: June 26, 2024 TIME: 9:21 AM PATIENT IDENTITY VERIFICATION COMPLETED USING TWO (2) STANDARD IDENTIFIERS: Name and Date of confirmed by patient verbally. FALL SCREENING: Has the patient had 2 falls in the last year or 1 fall with injury or currently using an Ambulatory Assistive Device (Walker, Cane, Wheelchair, Crutches, etc.)? No PATIENT GENDER DATA: Female. status: : No status: NO. PATIENT RELEVANT IMPLANT DATA REVIEWED: Yes PATIENT PRESENTS WITH AN IMPLANTABLE OR ATTACHED SPECIAL LIBRARY LIBRARIAN: No ALLERGIES: Reviewed and unchanged CONTRAST ALLERGY: NO. EXAM: MRI - CONTRAST TYPE: GROUP II PERIPHERAL IV DATA: Ambulatory: A peripheral IV was started in the Left antecubital site with a Angio cath: 22 gauge. RADIOLOGY DEPARTMENT: MR; Exam(s) Completed: Body: Pancreas/Biliary SIGNATURE: RT Salvador(Alvin) PATIENT NAME: Sachi Grace DATE: June 26, 2024 TIME: 9:21 [facility]07-18-2024 Telephone encounter Note* Telephone Encounter - Zulma Benites MA - 06/18/2024 5:16 PM EDT Pt has 50 mcg tablet dispensed by the [facility], so that would make dosage 75 mcg 6 days a week and 50 mcg on Saturday. Med chart updated [facility]07-18[facility] Miscellaneous Notes* Telephone Encounter - Zulma Benites MA - 06/18/2024 5:16 PM EDT Pt has 50 mcg tablet dispensed by the [facility], so that would make dosage 75 mcg 6 days a week and 50 mcg on Saturday. Med chart updated * Telephone Encounter - Halima Diaz RN - 06/18/2024 4:22 PM EDT Patient returned call and given message below. She reports her Endo specialist in [place] contacted her yesterday and made changes to her thyroid medication and she plans to follow that. She states she is now taking one and a half pills 6 days per week and one pill on Sundays onlyMs. Halima Diaz RN * Telephone Encounter - Yarelis Oliva MA - 06/18/2024 1:48 PM EDT Message left for pt to call back for results. Yarelis Oliva MA * Telephone Encounter - Anitra Mancera APRN.CNP - 06/18/2024 12:43 PM EDT Please let patient know that she is still getting a little too much levothyroxine. Take 2 tablets every only with 1 tablet on all other days of the week. We will recheck her TSH when she sees gastroenterology in August. She may have it drawn the same day. documented in this encounterThe [facility]07-18-[facility]24 Telephone encounter Note * Telephone Encounter - Halima Diaz RN - 06/18/2024 4:22 PM EDT Patient returned call and given message below. She reports her Endo specialist in [place] contacted her yesterday and made changes to her thyroid medication and she plans to follow that. She states she is now taking one and a half pills 6 days per week and one pill on Sundays onlyMs. Halima Diaz RN [facility] Telephone encounter Note* Telephone Encounter - Yarelis Oliva MA - 06/18/2024 1:48 PM EDT Message left for pt to call back for results. Yarelis Oliva MA [facility]07-18-[facility]24 Telephone encounter Note* Telephone Encounter - Anitra Mancera APRN.CNP - 06/18/2024 12:43 PM EDT Please let patient know that she is still getting a little too much levothyroxine. Take 2 tablets every only with 1 tablet on all other days of the week. We will recheck her TSH when she sees gastroenterology in August. She may have it drawn the same day. [facility] Telephone encounter Note* Telephone Encounter - Zulma Benites MA - 06/16/2024 4:12 PM EDT Patient was made aware of the results. Patient verbalizes understanding. Zulma Benites Ma [facility]07-16-[facility]24 Miscellaneous Notes* Telephone Encounter - Zulma Benites MA - 06/16/2024 4:12 PM EDT Patient was made aware of the results. Patient verbalizes understanding. Zulma Benites Ma * Telephone Encounter - Zulma Benites MA - 06/16/2024 2:45 PM EDT ----- Message from Anitra Mancera APRN.CNP sent at 06/16/2024 2:35 PM EDT ----- Please let patient know that right ovary is enlarged but no mass noted. I see that she has an appointment with gynecology on the seventh. Please keep that and have them weigh in on it. documented in this encounterThe [facility]07-16-[facility]24 Telephone encounter Note * Telephone Encounter - Zulma Benites MA - 06/16/2024 2:45 PM EDT ----- Message from Anitra Mancera APRN.AUTOMOBILE RENTAL AGENT sent at 06/16/2024 2:35 PM EDT ----- Please let patient know that right ovary is enlarged but no mass noted. I see that she has an appointment with gynecology on the seventh. Please keep that and have them weigh in on it. [facility] Progress note* Result Encounter Note - Anitra Mancera APRN.CNP - 06/16/2024 2:35 PM EDT Please let patient know that right ovary is enlarged but no mass noted. I see that she has an appointment with gynecology on the seventh. Please keep that and have them weigh in on it. [facility] Miscellaneous Notes* Result Encounter Note - Anitra Mancera APRN.CNP - 06/16/2024 2:35 PM EDT Please let patient know that right ovary is enlarged but no mass noted. I see that she has an appointment with gynecology on the seventh. Please keep that and have them weigh in on it. documented in this encounterThe [facility]07-16-2024 Instructions* Patient Instructions* Anitra Mancera APRN.CNP - 06/16/2024 9:47 AM EDT 1) Consult DIVIDER OPERATOR 2) Ordered vaginal ultrasound 3) Labs today 4) Follow up in 6 months documented in this encounterThe [facility]07-16-2024 NoteHNO ID: [id number] Author: ANITRA MANCERA APRN.CNP Service: ? Author Type: Clinical Nurse Specialist Type: Progress Notes Filed: 06/16/2024 09:47 Note Text: This is a 88 year old female who presents today with: Patient presents with: Follow Up: Review CT results HISTORY OF PRESENT ILLNESS: Sachi Grace is a 88 year old female. Patient presents with: Follow Up: Review CT results Bowels moving every day, little pieces. No pain. CT showed right adnexal neoplasm, pt. Aware. Weight loss- 8 lb., no appetite. No fever or chills. No bloating or belching. No pain in back. Tired. Lost sense of taste the last 5 years, smell is disappearing. 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 Dupree-every 6 months Gout, unspecified late great toe, several episodes Hypothyroidism, unspecified Multinodular goiter Dr Boateng Osteoarthritis of both knees Other and unspecified hyperlipidemia diet therapy as of 03/08 Paroxysmal supraventricular tachycardia (HCC) ablation 01/2002 ( in [place], [facility]), follows with Dr. Moreno (prn only) RLS (restless legs syndrome) Tinnitus, unspecified ear Unspecified constipation PAST SURGICAL HISTORY Procedure Laterality Date APPENDECTOMY ARTHRP KNE CONDYLEANDPLATU MEDIALANDLAT COMPARTMENTS 2012 Knee replacement, total bilateral CARPAL TUNNEL 2004 bilateral COLONOSCOPY FLX DX W/COLLJ SPEC WHEN PFRMD 12/14/2002 Colonoscopy COLONOSCOPY FLX DX W/COLLJ SPEC WHEN PFRMD 06/10/2007 COLONOSCOPY FLX DX W/COLLJ SPEC WHEN PFRMD 08/04/2013 Colonoscopy COLONOSCOPY FLX DX W/COLLJ SPEC WHEN PFRMD 10/14/2018 [facility]-Selam Stuartl-Repeat 5 years COLONOSCOPY SCREENING 11/15/2023 R [facility]eb[facility] no repeat due to age CORRECT BUNION,SIMPLE left ECHOCARDIOGRAM 10/18/2017 EGD 1985 bleeding ulcer EPS: SVT/VT ABLATION 2001 [facility] ESOPHAGOGASTRODUODENOSCOPY TRANSORAL DIAGNOSTIC 03/24/2018 EGD HERNIA REPAIR HX 09/2020 ventral hernia repair HOLTER 24 HR 10/2017 LOOP RECORDER IMPLANT 01/23/2018 NASAL/SINUS ENDOSCOPY WITH SPHENOIDOTOMY Bilateral 05/15/2019 Dr. Ruffin NASAL/SINUS ENDOSCPY W/MAXILL ANTROSTOMY Bilateral 05/15/2019 Dr. Ruffin NASAL/SINUS ENDOSCPY W/TOTAL ETHMOIDECTOMY Bilateral 05/15/2019 Dr. Ruffin OPEN REPAIR OF ROTATOR CUFF ACUTE 04/2005 Dr. Mejias PAST SURGICAL HISTORY OF 10/1997 partial colectomy ([place], [facility]) PAST SURGICAL HISTORY OF 2011 nerves cut in my back STEREO LOC FOR CORE BRST BX LT 04/24/2010 left STRESS TEST 12/17/2017 TONSILLECTOMY PRIMARY/SECONDARY ALLERGIES Vicodin [Hydrocodone-Acetaminophen], Buspirone, Cocamidopropyl Betaine, Codeine, Percocet [Oxycodone-Acetaminophen], Sulfa (Sulfonamide Antibiotics), and Tetracycline MEDICATIONS Current Outpatient Medications Medication Sig rOPINIRole (REQUIP) 0.5 mg tablet Take 1.5 tablets by mouth daily at bedtime. melatonin 10 mg cap Take by mouth. MEDICATION, NON-DATABASE CBD oil fluticasone propionate (ARMONAIR DIGIHALER) 232 mcg/actuation inhaler Inhale 1 Puff as instructed two times a day. levalbuterol tartrate HFA 45 mcg/actuation inhaler Inhale 1-2 Puffs as instructed every 4 hours as needed for wheezing/shortness of breath. nortriptyline (PAMELOR) 10 mg capsule Take 1 capsule by mouth every 12 hours. Cholecalciferol, Vitamin D3, (VITAMIN D) 25 mcg (1,000 unit) cap Take 1,000 Units by mouth once daily. levothyroxine (SYNTHROID) 75 mcg tablet Take 75 mcg on empty stomach Thurs AND Sat; 50 mcg on an empty stomach all other days clonazePAM (KLONOPIN) 0.5 mg tablet Take 0.5 mg by mouth at bedtime as needed. Dr Joon Avery,C,K-Pzdp-Vosext (PRESERVISION AREDS) 7,160-113-100 [id number]-gq-xzjf tab Take by mouth. ACETAMINOPHEN 500 MG TAB Take one(1) tablet every four(4) to six(6) hours as needed for pain. tenapanor (IBSRELA) 50 mg tablet Take 1 tablet (50 mg) by mouth two times a day. With food. No current facility-administered medications for this visit. FAMILY HISTORY Problem Relation Age of Onset Heart Mother rheumatic; 73 Colon Cancer Father dx'd age 50's Coronary Artery Disease Father age 40s, CABG (among the first done at in [place]) Stroke Sister at 58 of ruptured aneurysm Cancer Brother at 55 (tobacco, agent orange) DVT Sister Social History Tobacco Use Smoking status: Never Smokeless tobacco: Never Vaping Use Vaping Use: Never used Substance Use Topics Alcohol use: No Drug use: No EXAM: BP 114/72 Pulse 84 Resp 18 Wt 58.1 kg (128 lb) SpO2 99% BMI 25.00 kg/m? PHYSICAL EXAM: Physical Exam Vitals reviewed. Constitutional: Ap (more content not included)...[facility]07-16-2024 History of Present illness Narrative* Anitra Mancera APRN.AUTOMOBILE RENTAL AGENT - 06/16/2024 9:24 AM EDT This is a 88 year old female who presents today with: Patient presents with: Follow Up: Review CT results HISTORY OF PRESENT ILLNESS: Sachi Grace is a 88 year old female. Patient presents with: Follow Up: Review CT results Bowels moving every day, little pieces. No pain. CT showed right adnexal neoplasm, pt. Aware. Weight loss- 8 lb., no appetite. No fever or chills. No bloating or belching. No pain in back. Tired. Lost sense of taste the last 5 years, smell is disappearing. 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 Dupree-every 6 months Gout, unspecified late great toe, several episodes Hypothyroidism, unspecified Multinodular goiter Dr Boateng Osteoarthritis of both knees Other and unspecified hyperlipidemia diet therapy as of 03/08 Paroxysmal supraventricular tachycardia (HCC) ablation 01/2002 ( in [place], [facility]), follows with Dr. Moreno (prn only) RLS (restless legs syndrome) Tinnitus, unspecified ear Unspecified constipation PAST SURGICAL HISTORY Procedure Laterality Date APPENDECTOMY ARTHRP KNE CONDYLE&PLATU MEDIAL&LAT COMPARTMENTS 2011 Knee replacement, total bilateral CARPAL TUNNEL 2005 bilateral COLONOSCOPY FLX DX W/COLLJ SPEC WHEN PFRMD 12/14/2002 Colonoscopy COLONOSCOPY FLX DX W/COLLJ SPEC WHEN PFRMD 06/10/2007 COLONOSCOPY FLX DX W/COLLJ SPEC WHEN PFRMD 08/04/2013 Colonoscopy COLONOSCOPY FLX DX W/COLLJ SPEC WHEN PFRMD 10/14/2018 [facility]-Repeat 5 years COLONOSCOPY SCREENING 11/15/2023 R Cebul no repeat due to age CORRECT BUNION,SIMPLE left ECHOCARDIOGRAM 10/18/2017 EGD 1985 bleeding ulcer EPS: SVT/VT ABLATION 2001 [facility] ESOPHAGOGASTRODUODENOSCOPY TRANSORAL DIAGNOSTIC 03/24/2018 EGD HERNIA REPAIR HX 09/2020 ventral hernia repair HOLTER 24 HR 10/2017 LOOP RECORDER IMPLANT 01/23/2018 NASAL/SINUS ENDOSCOPY WITH SPHENOIDOTOMY Bilateral 05/15/2019 Dr. Ruffin NASAL/SINUS ENDOSCPY W/MAXILL ANTROSTOMY Bilateral 05/15/2019 Dr. Ruffin NASAL/SINUS ENDOSCPY W/TOTAL ETHMOIDECTOMY Bilateral 05/15/2019 Dr. Ruffin OPEN REPAIR OF ROTATOR CUFF ACUTE 04/2005 Dr. Mejias PAST SURGICAL HISTORY OF 10/1997 partial colectomy ([place], [facility]) PAST SURGICAL HISTORY OF 2011 nerves cut in my back STEREO LOC FOR CORE BRST BX LT 04/24/2010 left STRESS TEST 12/17/2017 TONSILLECTOMY PRIMARY/SECONDARY <AGE 12 ALLERGIES Vicodin [Hydrocodone-Acetaminophen], Buspirone, Cocamidopropyl Betaine, Codeine, Percocet[Oxycodone-Acetaminophen], Sulfa (Sulfonamide Antibiotics), and Tetracycline MEDICATIONS Current Outpatient Medications Medication Sig rOPINIRole (REQUIP) 0.5 mg tablet Take 1.5 tablets by mouth daily at bedtime. melatonin 10 mg cap Take by mouth. MEDICATION, NON-DATABASE CBD oil fluticasone propionate (ARMONAIR DIGIHALER) 232 mcg/actuation inhaler Inhale 1 Puff as instructed two times a day. levalbuterol tartrate HFA 45 mcg/actuation inhaler Inhale 1-2 Puffs as instructed every 4 hours as needed for wheezing/shortness of breath. nortriptyline (PAMELOR) 10 mg capsule Take 1 capsule by mouth every 12 hours. Cholecalciferol, Vitamin D3, (VITAMIN D) 25 mcg (1,000 unit) cap Take 1,000 Units by mouth once daily. levothyroxine (SYNTHROID) 75 mcg tablet Take 75 mcg on empty stomach Thurs & Sun; 50 mcg on an empty stomach all other days clonazePAM (KLONOPIN) 0.5 mg tablet Take 0.5 mg by mouth at bedtime as needed. Dr Dupree vit A,C,G-Wbkd-Eirmrj (PRESERVISION AREDS) 7,160-113-100 uxpo-iq-kbaj tab Take by mouth. ACETAMINOPHEN 500 MG TAB Take one(1) tablet every four(4) to six(6) hours as needed for pain. tenapanor (IBSRELA) 50 mg tablet Take 1 tablet (50 mg) by mouth two times a day. With food. No current facility-administered medications for this visit. FAMILY HISTORY Problem Relation Age of Onset Heart Mother rheumatic; 73 Colon Cancer Father dx'd age 50's Coronary Artery Disease Father age 40s, CABG (among the first done at in [place]) Stroke Sister at 58 of ruptured aneurysm Cancer Brother at 55 (tobacco, agent orange) DVT Sister Social History Tobacco Use Smoking status: Never Smokeless tobacco: Never Vaping Use Vaping Use: Never used Substance Use Topics Alcohol use: No Drug use: No EXAM: BP 114/72 Pulse 84 Resp 18 Wt 58.1 kg (128 lb) SpO2 99% BMI 25.00 kg/m PHYSICAL EXAM: Physical Exam Vitals reviewed. Constitutional: Appearance: Normal appearance. HENT: Head: Normocephalic. Cardiovascular: Rate and Rhythm: Normal rate and regular rhythm. Heart sounds: Normal heart sounds. Pulmonary: Effort: Pulmonary effort is normal. Breath sounds: Normal breath sounds. Abdominal: General: There is no distension. Palpations: Abdomen is soft. Tenderness: There is no abdominal tenderness. There is no guarding or rebound. Musculoskeletal: General: Normal range of motion. Cervical back: Neck supple. Skin: General: Skin is warm and dry. 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 LABS: TSH due today ASSESSMENT/PLAN: 1. 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 Hypothyroidism, acquired - ICD9: 244.9, ICD10: E03.9 - Instructed patient on importance of taking on an empty stomach either first thing in the morning or at bedtime. - Get TSH - Stable thyroid nodules 3. Fatigue, unspecified type - ICD9: 780.79, ICD10: R53.83 Check TSH Check CBC and BMP 6 months follow up Discussed treatment plan and patient voices understanding. Patient's questions answered appropriately. Medications and potential side effects were discussed and patient voices understanding. Return to the office as scheduled or as needed for worsening/no improvement. Anitra Mancera APRN.AUTOMOBILE RENTAL AGENT documented in [facility]07-[facility] Note* Addendum Note - Lindsey Stapleton PA-C - 06/05/2024 11:50 AM EDTAddended by: LINDSEY STAPLETON on: 06/05/2024 11:50 AM Modules accepted: Orders [facility]07-05-2024 Telephone encounter Note* Telephone Encounter - Lindsey Stapleton PA-C - 06/05/2024 11:50 AM EDT Script sent to pharmacy Lindsey Stapleton PA-C [facility]07-05-2024 Miscellaneous Notes* Addendum Note - Lindsey Stapleton PA-C - 06/05/2024 11:50 AM EDTAddended by: LINDSEY STAPLETON on: 06/05/2024 11:50 AM Modules accepted: Orders * Telephone Encounter - Lindsey Stapleton PA-C - 06/05/2024 11:50 AM EDT Script sent to pharmacy Lindsey Stapleton PA-C * Telephone Encounter - Javid Mcghee MA - 06/05/2024 11:41 AM EDT Spoke with patient about CT results. She will contact the Farm Technician prior to having MRI done. She also states that she usually has 2 0.5 tabs of Xanax prior to MRI's. This can be srnt to the [facility] in [place]. Thank you documented in this encounterThe [facility]07-[facility]24 Telephone encounter Note * Telephone Encounter - Javid Mcghee MA - 06/05/2024 11:41 AM EDT Spoke with patient about CT results. She will contact the Farm Technician prior to having MRI done. She also states that she usually has 2 0.5 tabs of Xanax prior to MRI's. This can be srnt to the [facility] in [place]. Thank you [facility]-17-[facility] Telephone encounter Note* Telephone Encounter - Jenn Tsai - 05/18/2024 9:15 AM EDT Prescription Refill Information Patient is requesting 90 days at a time, instead of 30 days. Request pended to show 90 day script. The patient has been identified by name and date of : Yes Caregiver verified no other encounters exist for this prescription request: Yes Caregiver confirmed with patient/requestor that no other refills are due, in the near future, with this provider at this time: Yes The last office visit in the department: 04-21-24 Does the patient have a future office visit with this provider/department: No Requested Prescriptions Pending Prescriptions Disp Refills rOPINIRole (REQUIP) 0.5 mg tablet 135 tablet 1 Sig: Take 1.5 tablets by mouth daily at bedtime. Jenn Morales May 18, 2024 9:17 AM [facility]-17-20[facility] Miscellaneous Notes* Telephone Encounter - Jenn Tsai - 05/18/2024 9:15 AM EDT Prescription Refill Information Patient is requesting 90 days at a time, instead of 30 days. Request pended to show 90 day script. The patient has been identified by name and date of : Yes Caregiver verified no other encounters exist for this prescription request: Yes Caregiver confirmed with patient/requestor that no other refills are due, in the near future, with this provider at this time: Yes The last office visit in the department: 04-21-24 Does the patient have a future office visit with this provider/department: No Requested Prescriptions Pending Prescriptions Disp Refills rOPINIRole (REQUIP) 0.5 mg tablet 135 tablet 1 Sig: Take 1.5 tablets by mouth daily at bedtime. Jenn M Venancio Morales May 18, 2024 9:17 AM documented in this encounterThe [facility]05-30-2024 Telephone encounter Note * Telephone Encounter - Javid Mcghee MA - 04/30/2024 9:22 AM EDT [email or web address] gave us a call stating that patient is approved for patient assistance. After speaking withthe patient she does not want to start the new medication at this time. A new script will have to be sent to [email or web address] if she wants to start this medication later on. [facility] Miscellaneous Notes* Telephone Encounter - Javid Mcghee MA - 04/30/2024 9:22 AM EDT [email or web address] gave us a call stating that patient is approved for patient assistance. After speaking withthe patient she does not want to start the new medication at this time. A new script will have to be sent to [email or web address] if she wants to start this medication later on. documented in this encounterThe [facility]05-29-[facility]24 Telephone encounter Note * Telephone Encounter - Marcia Sue RN - 04/29/2024 2:46 PM EDT Stacy with Dr. Boateng (endocrinology) calls to request copy of TSH drawn on 04/23/2024. Faxed to [phone] per request. Marcia Sue RN [facility]-29-[facility] Miscellaneous Notes* Telephone Encounter - Marcia Sue RN - 04/29/2024 2:46 PM EDT Stacy with Dr. Boateng (endocrinology) calls to request copy of TSH drawn on 04/23/2024. Faxed to [phone] per request. Marcia Sue RN documented in this encounterThe [facility]05-28-2024 Telephone encounter Note * Telephone Encounter - Javid Mcghee MA - 04/28/2024 1:36 PM EDT Tried to call patient to see if she had questions about her CT results. Unable to LVM due to it notbeing set up. [facility] Miscellaneous Notes* Telephone Encounter - Javid Mcghee MA - 04/28/2024 1:36 PM EDT Tried to call patient to see if she had questions about her CT results. Unable to LVM due to it notbeing set up. documented in this encounterThe [facility]05-[facility] History of Present illness Narrative* Mandy Caba RT(R) - 04/23/2024 10:00 AM EDT Radiology Service Progress Note DATE OF SERVICE: April 23, 2024 TIME: 3:12 PM PATIENT IDENTITY VERIFICATION COMPLETED USING TWO (2) STANDARD IDENTIFIERS: Name and Date of confirmed by patient verbally. FALL SCREENING: Has the patient had 2 falls in the last year or 1 fall with injury or currently using an Ambulatory Assistive Device (Walker, Cane, Wheelchair, Crutches, etc.)? No PATIENT GENDER DATA: Female. status: : No status: NO. PATIENT RELEVANT IMPLANT DATA REVIEWED: Yes PATIENT PRESENTS WITH AN IMPLANTABLE OR ATTACHED SPECIAL LIBRARY LIBRARIAN: No ALLERGIES: Reviewed and unchanged CONTRAST ALLERGY: NO. EXAM: CT -CONTRAST INDUCED NEPHROPATHY RISK FACTORS: Patient age > 60 years CREATININE: Creatinine Date Value Ref Range Status 04/23/2024 0.55 (L) 0.58 - 0.96 mg/dL Final 01/01/2024 0.68 0.58 - 0.96 mg/dL Final 10/29/2023 0.62 0.58 - 0.96 mg/dL Final Estimated Glomerular Filtration Rate Date Value Ref Range Status 04/23/2024 88 >=60 mL/min/1.73m Final Comment: Estimated Glomerular Filtration Rate (eGFR) is calculated using the 2020 CKD-EPI creatinine equation. This equation utilizes serum creatinine, sex, and age as parameters. The creatinine assay has traceable calibration to isotope dilution- mass spectrometry. Refer to KDIGO guidelines for clinical interpretation. In patients with unstable renal function, e.g. those with acute kidney injury, the eGFRmay not accurately reflect actual GFR. eGFR- Date Value Ref Range Status 08/30/2021 >60 Final P.O.C.T. RESULTS: POC done: Yes, See Lab Tab April 23, 2024 TREATMENT: N/A PERIPHERAL IV DATA: Ambulatory: A peripheral IV was started in the Left antecubital site with a Angio cath: 22 gauge. RADIOLOGY DEPARTMENT: CT; Exam(s) Completed: Abdomen/Pelvis SIGNATURE: RT Johan(R) PATIENT NAME: Sachi Grace DATE: April 23, 2024 TIME: 3:12 PM documented in [facility]The [facility] History of Present illness Narrative* Kevin Andersen PA-C - 04/21/2024 2:00 PM EDT 88 year old female with c/o 4 week follow up Saw TAYLOR Stapleton PA-C Started on Go-lytely Scheduled CT abd/pel w IVCON 03/24/2024 XR abd : non-obstructed bowel gas pattern, moderate fecal material in colon. Started Tenapanor 50mg two times a day: didn't help at all, very expensive Currently back to using Miralax and fiber which seems to be working currently. states she was afraid to eat. RLS has been worse lately, taking Ropinerole 1 tab at HS and then 1/2 tab a few hours later. Seeing Dr. Muñoz, had xrays donesaid she needed TKR Went to [facility] Dr. Barajas, told her didn't need surgery. No chest pain, SOB, dyspnea, orthopnea, racing or irregular heartbeats, palpitations, syncopal sx, leg swelling, nausea, diaphoresis or heartburn. 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 Dupree-every 6 months Gout, unspecified late great toe, several episodes Hypothyroidism, unspecified Multinodular goiter Dr Boateng Osteoarthritis of both knees Other and unspecified hyperlipidemia diet therapy as of 03/08 Paroxysmal supraventricular tachycardia (HCC) ablation 01/2002 ( in [place], [facility]), follows with Dr. Moreno (prn only) RLS (restless legs syndrome) Tinnitus, unspecified ear Unspecified constipation PAST SURGICAL HISTORY Procedure Laterality Date APPENDECTOMY ARTHRP KNE CONDYLE&PLATU MEDIAL&LAT COMPARTMENTS 2011 Knee replacement, total bilateral CARPAL TUNNEL 2005 bilateral COLONOSCOPY FLX DX W/COLLJ SPEC WHEN PFRMD 12/14/2002 Colonoscopy COLONOSCOPY FLX DX W/COLLJ SPEC WHEN PFRMD 06/10/2007 COLONOSCOPY FLX DX W/COLLJ SPEC WHEN PFRMD 08/04/2013 Colonoscopy COLONOSCOPY FLX DX W/COLLJ SPEC WHEN PFRMD 10/14/2018 [facility]-Repeat 5 years COLONOSCOPY SCREENING 11/15/2023 R Cebul no repeat due to age CORRECT BUNION,SIMPLE left ECHOCARDIOGRAM 10/18/2017 EGD 1985 bleeding ulcer EPS: SVT/VT ABLATION 2001 [facility] ESOPHAGOGASTRODUODENOSCOPY TRANSORAL DIAGNOSTIC 03/24/2018 EGD HERNIA REPAIR HX 09/2020 ventral hernia repair HOLTER 24 HR 10/2017 LOOP RECORDER IMPLANT 01/23/2018 NASAL/SINUS ENDOSCOPY WITH SPHENOIDOTOMY Bilateral 05/15/2019 Dr. Ruffin NASAL/SINUS ENDOSCPY W/MAXILL ANTROSTOMY Bilateral 05/15/2019 Dr. Ruffin NASAL/SINUS ENDOSCPY W/TOTAL ETHMOIDECTOMY Bilateral 05/15/2019 Dr. Ruffin OPEN REPAIR OF ROTATOR CUFF ACUTE 04/2005 Dr. Mejias PAST SURGICAL HISTORY OF 10/1997 partial colectomy ([place], [facility]) PAST SURGICAL HISTORY OF 2011 nerves cut in my back STEREO LOC FOR CORE BRST BX LT 04/24/2010 left STRESS TEST 12/17/2017 TONSILLECTOMY PRIMARY/SECONDARY <AGE 12 Social History Tobacco Use Smoking status: Never Smokeless tobacco: Never Vaping Use Vaping Use: Never used Substance Use Topics Alcohol use: No Drug use: No ACTIVE PROBLEM LIST Generalized Anxiety Disorder Diverticulosis of Large Intestine Disorder of Bone and Cartilage Hypothyroidism Hyperlipidemia Ldl Goal <130 Osteoarthritis of Both Knees Multinodular Goiter History of Knee Replacement, Total Mild Intermittent Asthma Without Complication Paroxysmal Supraventricular Tachycardia (Hcc) Hernia of Anterior 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 Vertigo), Unspecified Laterality Itching Orthostatic Syncope Rls (Restless Legs Syndrome) Asthma Benzodiazepine Dependence (Hcc) Anxiety 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 With food. 180 tablet 2 melatonin 10 mg cap Take by mouth. MEDICATION, NON-DATABASE CBD oil fluticasone propionate (ARMONAIR DIGIHALER) 232 mcg/actuation inhaler Inhale 1 Puff as instructed two times a day. levalbuterol tartrate HFA 45 mcg/actuation inhaler Inhale 1-2 Puffs as instructed every 4 hours as needed for wheezing/shortness of breath. nortriptyline (PAMELOR) 10 mg capsule Take 1 capsule by mouth every 12 hours. rOPINIRole (REQUIP) 0.5 mg tablet Take 1.5 tablets by mouth daily at bedtime. 45 tablet 5 Cholecalciferol, Vitamin D3, (VITAMIN D) 25 mcg (1,000 unit) cap Take 1,000 Units by mouth once daily. levothyroxine (SYNTHROID) 75 mcg tablet Take 75 mcg on empty stomach Thurs & Sun; 50 mcg on an empty stomach all other days clonazePAM (KLONOPIN) 0.5 mg tablet Take 0.5 mg by mouth at bedtime as needed. Dr Dupree vit A,C,Z-Cnzm-Fbtaaw (PRESERVISION AREDS) 7,160-113-100 [id number]-mx-yptc tab Take by mouth. 0 ACETAMINOPHEN 500 MG TAB Take one(1) tablet every four(4) to six(6) hours as needed for pain. 0 No current facility-administered medications for this visit. Spirometry Never done Behavioral Health Screening Never done Covid-19 Vaccine( season) due on 04/12/2024 EXAM: BP 110/65 Pulse 82 Resp 16 Wt 59.4 kg (131 lb) SpO2 95% BMI 25.58 kg/m Pleasant elderly woman in no acute distress. Alert and oriented all spheres. Normal affect and cognition. Speech normal. No deficits to learning or comprehension. Skin warm, dry, pink to lips and nailbeds. Normal turgor. Respirations regular and unlabored. HEENT: NCAT. No scleral icterus or conjunctival injection. TM's clear. Nose and oropharynx free from injection or lesion. Oral membranes moist and pink. No cervical lymph nodes. Thyroid non-tender, no masses, or enlargement. Carotids pulses 2+/4+ without bruits. Neck veins flat. Chest is normal shape. Lungs are clear to all heredia with good air exchange through out. HRRR without murmur or gallop. No lifts, heaves, or rubs. Abdomen: active bowel sounds throughout, soft, nontender, no masses or organomegaly. No CVAT. Extrem: no clubbing or cyanosis. Edema: none. Extremities are warm and pink with prompt capillary refill. ASSESSMENT/PLAN: 1. Acute constipation - ICD9: 564.00, ICD10: K59.00 (primary diagnosis) Currently doing fine with fiberand Miralax 2. Anxiety due to invasive procedure - ICD9: 300.00, ICD10: F41.9 Prior to scans - ALPRAZOLAM 0.25 MG TABLET 3. RLS (restless legs syndrome) - ICD9: 333.94, ICD10: G25.81 Cautioned increasing Ropinerole may cause augmentation and worse RSL. Has outstanding labs- with monitor iron. Some of this note may have been copied and pasted for the purpose of history context and comparison. All questions listed were asked and adjusted for changes in prior data. Kevin Andersen PA-C documented in this encounterThe [facility] Telephone encounter Note * Telephone Encounter - Lindsey Stapleton PA-C - 04/03/2024 11:45 AM EDT Called pt to check in. She has drank three glasses of prep this morning so far. Advised to now try drinking 8 oz of prep every 30 minutes as tolerated to help induce BM over the next few hours. She is to call me back around 2 to discuss updates. Advised I want her to drink pep slower than standard bowel cleanse to try limit GI upset. Lindsey Stapleton PA-C [facility]05-03-[facility] Miscellaneous Notes* Telephone Encounter - Lindsey Stapleton PA-C - 04/03/2024 11:45 AM EDT Called pt to check in. She has drank three glasses of prep this morning so far. Advised to now try drinking 8 oz of prep every 30 minutes as tolerated to help induce BM over the next few hours. She is to call me back around 2 to discuss updates. Advised I want her to drink pep slower than standard bowel cleanse to try limit GI upset. Lindsey Stapleton PA-C * Telephone Encounter - Javid Mcghee MA - 04/03/2024 8:34 AM EDT Patient called in because she was not sure of how to take the Golytely prep. She wants to know how much and how often she is supposed to take the prep. She is ok with mychart response. Please advise thank you. documented in this encounterThe [facility]05-03-[facility]24 Telephone encounter Note * Telephone Encounter - Javid Mcghee MA - 04/03/2024 8:34 AM EDT Patient called in because she was not sure of how to take the Golytely prep. She wants to know how much and how often she is supposed to take the prep. She is ok with mychart response. Please advise thank you. [facility]-02-[facility] Instructions* Patient Instructions* Lindsey Stapleton PA-C - 04/02/2024 9:55 AM EDT Images from the original note were not included. Start Linzess 145 mcg on empty stomach in morning at least 30 minutes before eating. Bowel Preparation Instructions for: Golytely, Nulytely, Trilyte or Colyte (polyethylene glycol 3350and electrolytes) IF YOU DO NOT FOLLOW THESE DIRECTIONS, YOUR COLONOSCOPY WILL BE CANCELLED. Mak Instructions: Your bowel must be empty so that your doctor can clearly view your colon. Follow all of the instructions in this handout EXACTLY as they are written. Do NOT eat any solid food the ENTIRE day before your colonoscopy. Drink only clear liquids. Buy your bowel preparation at least 5 days before your colonoscopy. TRANSPORTATION on the Day of Your Exam A responsible person MUST be present with you at Check In prior to your colonoscopy and REMAIN in the endoscopy area until you are discharged. You are NOT ALLOWED to drive, take a taxi or bus, or leave the Endoscopy Center ALONE. If you do not have a responsible solo truck driver (family member or friend) with you to take you home, your exam cannot be done with sedation and will be cancelled. Please bring a list of all of your current medications, including any Over-the Counter medications with you. Medications If you take insulin, diabetic medications or blood thinners such as Coumadin (warfarin), Plavix (clopidogrel), Ticlid (ticlopidine hydrochloride), Agrylin (anagrelide), Xarelto (Rivaroxaban), Pradaxa(Dabigatran), Eliquis (Apixaban), and Effient (Prasugrel). You MUST call the doctors who orders those medicines for instructions on altering the dosage before your colonoscopy. All other medications should be taken the day of the exam with a sip of water including ASPIRIN. Five (5) Days Before Your Colonoscopy Do NOT take medicines that stop diarrhea - such as Imodium, Kaopectate, or Pepto Bismol. Do NOT take fiber supplements - such as Metamucil, Citrucel, or Perdiem. Do NOT take products that contain iron - such as multi-vitamins (the label lists what is in the products). Do NOT take Vitamin E. Buy the prescription bowel preparation solution at your local pharmacy or drugstore pharmacy. 11/2019 Bowel Preparation Instructions for: Golytely, Nulytely, Trilyte or Colyte (polyethylene glycol 3350and electrolytes) Three (3) Days Before Your Colonoscopy Do NOT eat high-fiber foods - such as popcorn, beans, seeds (flax, sunflower, quinoa), multigrain bread, nuts, salad/vegetables, or fresh and dried fruit. One (1) Day Before Your Colonoscopy Only drink clear liquids the ENTIRE DAY before your colonoscopy. Do NOT eat any solid foods. Drink at least 8 ounces of clear liquids every hour after waking up. The clear liquids you can drink include: Clear Liquid (NO RED LIQUIDS) DO NOT DRINK Gatorade, Pedialyte or Powerade Clear broth or bouillon Coffee or tea (no milk or non-dairy creamer) Carbonated and non-carbonated soft drinks Yohannes-Aid or other fruit flavored drinks Strained fruit juices (no pulp) Jell-O, popsicles, hard candy Water Alcohol Milk or non-dairy creamers Noodles or vegetables in soup Juice with pulp Liquid you cannot see through Do not use tobacco/vaping products The bowel preparation solution will be consumed in two parts. Mix the solution the evening before your colonoscopy and refrigerate before drinking. You may add the flavor pack that came with the bowel preparation. Do NOT add ice, sugar or any other flavorings to the solution. Part 1 At 6:00 PM - Evening before your colonoscopy Drink an 8-oz glass of bowel preparation every 10 minutes for a total of 8 glasses. You may continue to drink clear liquids until midnight. Part 2 On the day of your colonoscopy you may drink clear liquids up to (three) 3 hours before your procedure. 4 1/2 hours before your colonoscopy Drink an 8-oz glass of bowel preparation every 10 minutes for a total of 8 glasses. Fifteen (15) minutes later, drink an 8-oz glass of clear liquids every 15 minutes for a total of 2 glasses. You may continue to drink clear liquids up to (three) 3 hours before your exam. 2 11/2019 documented in this encounterThe [facility]05-[facility] History of Present illness Narrative* Lindsey Stapleton PA-C - 04/02/2024 9:32 AM EDT CHIEF COMPLAINT: Patient presents with: Constipation: XR 03/24/24. Dulcolax somewhat helps HPI: Sachi Grace is a 88 year old female with PMHx pos for asthma, fibromyalgia, SVT who presents for Constipation (XR 03/24/24. Dulcolax somewhat helps). Surg hx pos for partial colectomy (2/2 diverticulitis), appendectomy, ventral hernia repair. Admits to constipation since 12/2023, states prior to change in Bms was typically going regularly. Stopped buspar 01/2024 due to suspected S/Es constipation but reports constipation persisted even after discontinuation. Lost 7 lbs since sx started and includes weight has been difficult for her to maintain. Will go several weeks without a BM. Has recently started probiotics 2 days ago. Previously tried fibers, regular Miralax w/o any improvement. Notes excessive flatulence daily. Denies abd pain, N/V, bloating, melena. Father w/ hx of colon CA dx in 60s KUB 03/2024 moderate/large stool burden IMPRESSION: NO ACUTE ABDOMINAL PATHOLOGY VISUALIZED Colon 11/2023 [facility] Impression: - Hemorrhoids found on perianal exam. - Diverticulosis in the sigmoid colon. - The examination was otherwise normal. - No specimens collected. Latest Ref Rng 01/01/2024 WBC 3.70 - 11.00 k/uL 4.76 RBC 3.90 - 5.20 m/uL 4.56 Hemoglobin 11.5 - 15.5 g/dL 13.2 Hematocrit 36.0 - 46.0 % 41.1 MCV 80.0 - 100.0 fL 90.1 MCH 26.0 - 34.0 pg 28.9 MCHC 30.5 - 36.0 g/dL 32.1 RDW-CV 11.5 - 15.0 % 15.3 (H) Platelet Count 150 - 400 k/uL 366 MPV 9.0 - 12.7 fL 9.9 Neut% % 53.1 Abs Neut (ANC) 1.45 - 7.50 k/uL 2.53 Lymph% % 20.8 Abs Lymph 1.00 - 4.00 k/uL 0.99 (L) Cloud% % 14.7 Abs Cloud <0.87 k/uL 0.70 Eosin% % 9.5 Abs Eosin <0.46 k/uL 0.45 Baso% % 1.5 Abs Baso <0.11 k/uL 0.07 Immature Gran % % 0.4 IMMATURE GRANS (ABS) <0.10 k/uL <0.03 NRBC /100 WBC 0.0 Absolute nRBC <0.01 k/uL <0.01 DTYPE Auto Protein, Total 6.3 - 8.0 g/dL 7.2 Albumin 3.9 - 4.9 g/dL 4.2 Calcium 8.5 - 10.2 mg/dL 9.6 Bilirubin, Total 0.2 - 1.3 mg/dL 0.7 Alkaline Phosphatase 34 - 123 U/L 85 AST 13 - 35 U/L 26 ALT 7 - 38 U/L 16 Glucose 74 - 99 mg/dL 80 BUN 7 - 21 mg/dL 15 Creatinine 0.58 - 0.96 mg/dL 0.68 Sodium 136 - 144 mmol/L 141 Potassium 3.7 - 5.1 mmol/L 4.2 Chloride 97 - 105 mmol/L 101 CO2 22 - 30 mmol/L 29 Anion Gap 9 - 18 mmol/L 11 eGFR >=60 mL/min/1.73m 84 Iron 41 - 186 ug/dL 72 TIBC 232 - 386 ug/dL 262 Transferrin Saturation 15.0 - 57.0 % 27.5 Magnesium 1.7 - 2.3 mg/dL 2.3 Legend: (H) High (L) Low Record Review: [facility] / Outside records reviewed. PAST MEDICAL HISTORY Diagnosis Date Anosmia loss of taste, not smell Asthma moderate persistant Bilateral sensorineural hearing loss Disorder of bone and cartilage, unspecified osteopenia, on actonel (Kilo) Diverticulitis s/p partial colectomy Family history of colon cancer in father Fibromyalgia Generalized anxiety disorder 1994 Dr. Dupree-every 6 months Gout, unspecified late great toe, several episodes Hypothyroidism, unspecified Multinodular goiter Dr Boateng Osteoarthritis of both knees Other and unspecified hyperlipidemia diet therapy as of 03/08 Paroxysmal supraventricular tachycardia (HCC) ablation 01/2002 ( in [place], [facility]), follows with Dr. Moreno (prn only) RLS (restless legs syndrome) Tinnitus, unspecified ear Unspecified constipation PAST SURGICAL HISTORY Procedure Laterality Date APPENDECTOMY ARTHRP KNE CONDYLE&PLATU MEDIAL&LAT COMPARTMENTS 2011 Knee replacement, total bilateral CARPAL TUNNEL 2005 bilateral COLONOSCOPY FLX DX W/COLLJ SPEC WHEN PFRMD 12/14/2002 Colonoscopy COLONOSCOPY FLX DX W/COLLJ SPEC WHEN PFRMD 06/10/2007 COLONOSCOPY FLX DX W/COLLJ SPEC WHEN PFRMD 08/04/2013 Colonoscopy COLONOSCOPY FLX DX W/COLLJ SPEC WHEN PFRMD 10/14/2018 [facility]-Repeat 5 years COLONOSCOPY SCREENING 11/15/2023 R Ceb[facility] no repeat due to age CORRECT BUNION,SIMPLE left ECHOCARDIOGRAM 10/18/2017 EGD 1985 bleeding ulcer EPS: SVT/VT ABLATION 2001 [facility] ESOPHAGOGASTRODUODENOSCOPY TRANSORAL DIAGNOSTIC 03/24/2018 EGD HERNIA REPAIR HX 09/2020 ventral hernia repair HOLTER 24 HR 10/2017 LOOP RECORDER IMPLANT 01/23/2018 NASAL/SINUS ENDOSCOPY WITH SPHENOIDOTOMY Bilateral 05/15/2019 Dr. Ruffin NASAL/SINUS ENDOSCPY W/MAXILL ANTROSTOMY Bilateral 05/15/2019 Dr. Ruffin NASAL/SINUS ENDOSCPY W/TOTAL ETHMOIDECTOMY Bilateral 05/15/2019 Dr. Ruffin OPEN REPAIR OF ROTATOR CUFF ACUTE 04/2005 Dr. Mejias PAST SURGICAL HISTORY OF 10/1997 partial colectomy ([facility]) PAST SURGICAL HISTORY OF 2011 nerves cut in my back STEREO LOC FOR CORE BRST BX LT 04/24/2010 left STRESS TEST 12/17/2017 TONSILLECTOMY PRIMARY/SECONDARY <AGE 12 Allergies: ALLERGIES Allergen Reactions Vicodin [Hydrocodon* GI Upset Cocamidopropyl Beta* Rash itching, rash Codeine GI Upset Percocet [Oxycodone* GI Upset Sulfa (Sulfonamide * Hives, Swelling lips swelled up Tetracycline GI Upset Medications: melatonin 10 mg cap Take by mouth. MEDICATION, NON-DATABASE CBD oil fluticasone propionate (ARMONAIR DIGIHALER) 232 mcg/actuation inhaler Inhale 1 Puff as instructed two times a day. levalbuterol tartrate HFA 45 mcg/actuation inhaler Inhale 1-2 Puffs as instructed every 4 hours as needed for wheezing/shortness of breath. nortriptyline (PAMELOR) 10 mg capsule Take 1 capsule by mouth every 12 hours. rOPINIRole (REQUIP) 0.5 mg tablet Take 1.5 tablets by mouth daily at bedtime. Cholecalciferol, Vitamin D3, (VITAMIN D) 25 mcg (1,000 unit) cap Take 1,000 Units by mouth once daily. levothyroxine (SYNTHROID) 75 mcg tablet Take 75 mcg on empty stomach Thurs & Sun; 50 mcg on an empty stomach all other days clonazePAM (KLONOPIN) 0.5 mg tablet Take 0.5 mg by mouth at bedtime as needed. Dr Dupree vit A,C,C-Okrq-Kcnqfo (PRESERVISION AREDS) 7,160-113-100 tdcr-pj-ngnv tab Take by mouth. ACETAMINOPHEN 500 MG TAB Take one(1) tablet every four(4) to six(6) hours as needed for pain. FAMILY HISTORY Problem Relation Age of Onset Heart Mother rheumatic; 73 Colon Cancer Father dx'd age 50's Coronary Artery Disease Father age 40s, CABG (among the first done at in [place]) Stroke Sister at 58 of ruptured aneurysm Cancer Brother at 55 (tobacco, agent orange) DVT Sister Employer And Job Title: No employer specified (Retired) Years Of Education Completed: Not specified Marital Status: with 5 children Social History Tobacco Use Smoking status: Never Smokeless tobacco: Never Vaping Use Vaping Use: Never used Substance Use Topics Alcohol use: No Drug use: No Review of Systems: Review of Systems Constitutional: Positive for unexpected weight change. Respiratory: Positive for shortness of breath. Cardiovascular: Positive for palpitations. Gastrointestinal: Change in bowel habits, Gas All other systems reviewed and are negative. Are you taking any blood thinners? No Physical Examination: BP 112/72 Pulse 82 Ht 152.4 cm (5') Wt 58.1 kg (128 lb) BMI 25.00 kg/m Physical Exam Constitutional: General: She is not in acute distress. Appearance: Normal appearance. She is normal weight. She is not ill-appearing, toxic-appearing or diaphoretic. HENT: Head: Normocephalic and atraumatic. Nose: Nose normal. Eyes: General: No scleral icterus. Right eye: No discharge. Left eye: No discharge. Extraocular Movements: Extraocular movements intact. Conjunctiva/sclera: Conjunctivae normal. Pupils: Pupils are equal, round, and reactive to light. Cardiovascular: Rate and Rhythm: Normal rate and regular rhythm. Pulses: Normal pulses. Heart sounds: Normal heart sounds. No murmur heard. No friction rub. No gallop. Pulmonary: Effort: No respiratory distress. Breath sounds: Normal breath sounds. No stridor. No wheezing, rhonchi or rales. Chest: Chest wall: No tenderness. Abdominal: General: Bowel sounds are normal. There is distension (Lower abdominal distension). Palpations: Abdomen is soft. There is no mass. Tenderness: There is no abdominal tenderness. There is no right CVA tenderness, left CVA tenderness, guarding or rebound. Hernia: No hernia is present. Musculoskeletal: General: Normal range of motion. Cervical back: Normal range of motion and neck supple. Skin: General: Skin is warm and dry. Neurological: General: No focal deficit present. Mental Status: She is alert and oriented to person, place, and time. Psychiatric: Mood and Affect: Mood normal. Behavior: Behavior normal. Assessment/Plan (K59.00) Acute constipation (primary encounter diagnosis) (R63.4) Abnormal weight loss (K59.00) Constipation, unspecified constipation type 1. Acute constipation - peg 3350-Electrolytes (GOLYTELY) 236-22.74-6.74 -5.86 gram suspension; Take 4,000 mL by mouth onetime only for 1 dose. Refer to printed prep instructions from your provider. Dispense: 4000 mL; Refill: 0 - CT ABD/PEL W IVCON; Future - iv contrast (will be provided with radiology test); CT ABD/PEL -Inject, intravenously, once for 1dose.No IV access, insert saline lock prior to the beginning of sedation, infusion, injection of imaging exam. Discontinue saline lock post exam. If Pt. has a central line or IVAD, may access for administration according to line specific nursing protocol. Once exam is complete flush line and de-access according to line specific nursing protocol in the CT contrast administration guidelines link. Dispense: 1 Each; Refill: 0 - enteric contrast (will be provided with radiology test); For CT ABD/PEL W IVCON Routine order Administer, As Directed One Time Only, via Oral, Rectal, both Oral and Rectal, Enteric Tube, Stoma or Indwelling Catheter, Enteric Contrast as designated per enteric contrast guidelines Dispense: 1 Each;Refill: 0 - CREATININE BLD; Future - Significant stool burden noted on KUB 03/2024 - Will check CT abd to r/o acute process, GI malignancy - No obstructive sx, flatulent daily. Will plan to provide bowel cleanse with GoLytely. Advised to stay at home for bowel prep and start with small sips regularly to help tolerate solution. Is to call me day of prep as well to give me updates on status - Start 12 day trial Linzess 145 mcg daily after bowel cleanse - Continue plenty of oral hydration as tolerated. Encouraged daily high protein ensure shakes to help with nutritional support 2. Abnormal weight loss - peg 3350-Electrolytes (GOLYTELY) 236-22.74-6.74 -5.86 gram suspension; Take 4,000 mL by mouth onetime only for 1 dose. Refer to printed prep instructions from your provider. Dispense: 4000 mL; Refill: 0 - CT ABD/PEL W IVCON; Future - iv contrast (will be provided with radiology test); CT ABD/PEL -Inject, intravenously, once for 1dose.No IV access, insert saline lock prior to the beginning of sedation, infusion, injection of imaging exam. Discontinue saline lock post exam. If Pt. has a central line or IVAD, may access for administration according to line specific nursing protocol. Once exam is complete flush line and de-access according to line specific nursing protocol in the CT contrast administration guidelines link. Dispense: 1 Each; Refill: 0 - enteric contrast (will be provided with radiology test); For CT ABD/PEL W IVCON Routine order Administer, As Directed One Time Only, via Oral, Rectal, both Oral and Rectal, Enteric Tube, Stoma or Indwelling Catheter, Enteric Contrast as designated per enteric contrast guidelines Dispense: 1 Each;Refill: 0 - CREATININE BLD; Future I spent a total of 30 minutes on the date of the service which included preparing to see the patient, [id number] patient care, completing clinical documentation, obtaining and/or reviewing separately obtained history, performing a medically appropriate examination, counseling and educating the pat ient/family/caregiver, ordering medications, tests, or procedures, communicating with other HCPs (not separately reported), independently interpreting results (not separately reported), communicatingresults to the patient/family/caregiver, and care coordination (not separately reported). Lindsey Stapleton PA-C April 02, 2024 10:03 AM documented in this encounterThe [facility]04-[facility] History of Present illness Narrative* Kaleigh Lamas RT(R) - 03/24/2024 12:10 PM EDT Radiology Service Progress Note PATIENT NAME: Sachi Grace DATE OF SERVICE: March 24, 2024 TIME: 12:04 PM PATIENT IDENTITY VERIFICATION COMPLETED USING TWO (2) IDENTIFIERS: Name and Date of confirmedby patient verbally. FALL SCREENING: Has the patient had 2 falls in the last year or 1 fall with injury or currently using an Ambulatory Assistive Device (Walker, Cane, Wheelchair, Crutches, etc.)? No PATIENT GENDER DATA: Female. status: : No status: NO. PATIENT RELEVANT IMPLANT DATA REVIEWED: Yes PATIENT PRESENTS WITH AN IMPLANTABLE OR ATTACHED SPECIAL LIBRARY LIBRARIAN: No RADIOLOGY DEPARTMENT: General X-ray: Exam(s) Completed: Abdomen X-Ray: Abdomen PERIPHERAL IV DATA: Not applicable SIGNED BY: RT Puja(R) March 24, 2024 12:04 PM documented in this encounterThe [facility]04-23-2024 History of Present illness Narrative* Kevin Andersen PA-C - 03/24/2024 11:00 AM EDT 88 year old female with c/o here for follow-up Bowels are moving. LBM last Saturday with dulcolax suppository. Has no feeling she needs to have a bowel movement. States no BM in months Had diarrhea after taking 2 dulcalox tabs Recent events: 01/10/2024 pharmacologic myocardial perfusion stress test [facility] for palpitations: EKG demonstrated normal sinus rhythm at 70 bpm. Resting blood pressure 108/62. Maximum heart rate 91 bpm, 68% of NTR, [address] or T wave changes to suggest ischemia atpeak infusion. Final blood pressure 112/70. SPECT analysis demonstrated normal tracer uptake in all areas of myocardium without reversibility to suggest ischemia or prior infarct. Gated ejection fraction 93% Current: Notes tachycardia on waking. Slows down after gets up and moves. 01/22/2023 -02/05/2023 ZIO: HR of 60 bpm-144 bpm, and avg HR of 75bpm. Predominant underlying rhythm was Sinus Rhythm. First Degree AV Block was present. 15 Supraventricular Tachycardia runs occurred, the run with the fastest interval lasting 8 beats with a max rate of 144 bpm, the longest lasting 11 beats with an avg rate of 112 bpm. Isolated SVEs were rare (<1.0%), SVE Couplets were rare (<1.0%), and SVE Triplets were rare (<1.0%). Isolated VEs were rare (<1.0%), VE Couplets were rare (<1.0%), and no VE Triplets were present. Ventricular Trigeminy was present. 2 triggered events correspond to sinus and short (5 beats) Nonsustained SVT/PACs. 02/07/2024 visit with Anitra OWEN, from records: Complaining of nausea and constipation despite use of MiraLAX: Switch to lactulose and added Zofran Heart racing in the morning when she wakes up: Holter monitor demonstrated SVT in the past, offeredcardiology consult Allergic rhinitis: Recommended use of home Flonase 02/19/[address] [facility] ER with complaint of generalized illness with weakness, anxiety, intractable nausea, constipation. Notes indicate she had flexible sigmoidoscopy which was normal in November from Dr. Shashank Tabares. Stopped BuSpar which increased her anxiety. Stopped Zofran because it did not work Endorses 6 pound weight loss over the last several weeks because of nausea and decreased appetite without changes in stool pattern, no abdominal pain. Vital signs: 97.8-74-18-145/78-95% Exam documents no acute distress, relatively normal exam. CBC abnormals: WBC 4.1L, RDW 47.8, 1% 70.4 L, mono percent 40.4 H, BLS 5.9H, absolute lymphs 0.71L Chemistries all within normal limits, EGFR 102 Patient was given Reglan without improvement, believes it is related to anxiety. Discharged with prescription for clorazepate potassium 3.75 mg, #15/0 03/19/2024 ENT f/u consult with Argelia Stearns CNP in [place] who she apparently sees routinely from notes: - Responds favorably to Al air 2 three 2 mcg 1 puff as needed, averaging about twice a week. Postnasal drainage settles in throat and chest and this seems to break it up. -Stop montelukast because she has difficulty swallowing pills - Anxiety is not controlled, granddaughter started on CBD drop -Spirometry demonstrated FEV1/FVC of 83% predicted, FEF 25 to 75% of 57% predicted, FVC of 82% predicted indicating mild obstruction. -Collaborative plan with Dr. Jenkins Medications attached to encounter: ArmonAir Digihaler 232 mcg per actuation 1 puff orally 1-2 times daily levalbuterol tartrate 45 mcg per actuation inhaler aerosol 2 puffs inhale orally every 4 hours as needed HISTORIES FAMILY HISTORY Problem Relation Age of Onset Heart Mother rheumatic; 73 Colon Cancer Father dx'd age 50's Coronary Artery Disease Father age 40s, CABG (among the first done at in [place]) Stroke Sister at 58 of ruptured aneurysm Cancer Brother at 55 (tobacco, agent orange) DVT Sister PAST MEDICAL HISTORY Diagnosis Date Anosmia loss of taste, not smell Asthma moderate persistant Bilateral sensorineural hearing loss Disorder of bone and cartilage, unspecified osteopenia, on actonel (Kilo) Diverticulitis s/p partial colectomy Family history of colon cancer in father Fibromyalgia Generalized anxiety disorder 1994 Dr. Dupree-every 6 months Gout, unspecified late great toe, several episodes Hypothyroidism, unspecified Multinodular goiter Dr Boateng Osteoarthritis of both knees Other and unspecified hyperlipidemia diet therapy as of 03/08 Paroxysmal supraventricular tachycardia (HCC) ablation 01/2002 ( in [place], [facility]), follows with Dr. Moreno (prn only) RLS (restless legs syndrome) Tinnitus, unspecified ear Unspecified constipation PAST SURGICAL HISTORY Procedure Laterality Date APPENDECTOMY ARTHRP KNE CONDYLE&PLATU MEDIAL&LAT COMPARTMENTS 2011 Knee replacement, total bilateral CARPAL TUNNEL 2004 bilateral COLONOSCOPY FLX DX W/COLLJ SPEC WHEN PFRMD 12/14/2002 Colonoscopy COLONOSCOPY FLX DX W/COLLJ SPEC WHEN PFRMD 06/10/2007 COLONOSCOPY FLX DX W/COLLJ SPEC WHEN PFRMD 08/04/2013 Colonoscopy COLONOSCOPY FLX DX W/COLLJ SPEC WHEN PFRMD 10/14/2018 [facility]. [facility]-Repeat 5 years COLONOSCOPY SCREENING 11/15/2023 R Cebul no repeat due to age CORRECT BUNION,SIMPLE left ECHOCARDIOGRAM 10/18/2017 EGD 1985 bleeding ulcer EPS: SVT/VT ABLATION 2001 [facility] ESOPHAGOGASTRODUODENOSCOPY TRANSORAL DIAGNOSTIC 03/24/2018 EGD HERNIA REPAIR HX 09/2020 ventral hernia repair HOLTER 24 HR 10/2017 LOOP RECORDER IMPLANT 01/23/2018 NASAL/SINUS ENDOSCOPY WITH SPHENOIDOTOMY Bilateral 05/15/2019 Dr. Ruffin NASAL/SINUS ENDOSCPY W/MAXILL ANTROSTOMY Bilateral 05/15/2019 Dr. Ruffin NASAL/SINUS ENDOSCPY W/TOTAL ETHMOIDECTOMY Bilateral 05/15/2019 Dr. Ruffin OPEN REPAIR OF ROTATOR CUFF ACUTE 04/2005 Dr. Mejias PAST SURGICAL HISTORY OF 10/1997 partial colectomy ([place], [facility]) PAST SURGICAL HISTORY OF 2011 nerves cut in my back STEREO LOC FOR CORE BRST BX LT 04/24/2010 left STRESS TEST 12/17/2017 TONSILLECTOMY PRIMARY/SECONDARY <AGE 12 Social History Tobacco Use Smoking status: Never Smokeless tobacco: Never Vaping Use Vaping Use: Never used Substance Use Topics Alcohol use: No Drug use: No ACTIVE PROBLEM LIST Generalized Anxiety Disorder Diverticulosis of Large Intestine Disorder of Bone and Cartilage Hypothyroidism Hyperlipidemia Ldl Goal <130 Osteoarthritis of Both Knees Multinodular Goiter History of Knee Replacement, Total Mild Intermittent Asthma Without Complication Paroxysmal Supraventricular Tachycardia (Hcc) Hernia of Anterior 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 Vertigo), Unspecified Laterality Itching Orthostatic Syncope Rls (Restless Legs Syndrome) Asthma Benzodiazepine Dependence (Hcc) Anxiety 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 ondansetron orally disintegrating (ZOFRAN ODT) 4 mg disintegrating tablet Take 1 tablet by mouth every 6 hours as needed for nausea/vomiting. 60 tablet 2 lactulose 10 gram/15 mL solution Take 30 mL by mouth once daily. 473 mL 5 propranolol (INDERAL) 10 mg tablet aspirin, enteric coated (ASPIRIN, ENTERIC COATED) 81 mg EC tablet Take 1 tablet by mouth once daily. 30 tablet rOPINIRole (REQUIP) 0.5 mg tablet Take 1.5 tablets by mouth daily at bedtime. 45 tablet 5 triamcinolone (KENALOG IN ORABASE) 0.1 % paste 0.25 Inches by DENTAL route two times a day. 2 g 0 Cholecalciferol, Vitamin D3, (VITAMIN D) 25 mcg (1,000 unit) cap Take 1,000 Units by mouth once daily. levothyroxine (SYNTHROID) 75 mcg tablet Take 75 mcg on empty stomach Thurs & Sun; 50 mcg on an empty stomach all other days fluticasone propionate (ARMONAIR DIGIHALER INHALATION) Inhale as instructed. clonazePAM (KLONOPIN) 0.5 mg tablet Take 0.5 mg by mouth at bedtime as needed. Dr Dupree vit A,C,M-Hoek-Dgnecv (PRESERVISION AREDS) 7,160-113-100 [id number]-[id number] tab Take by mouth. 0 ACETAMINOPHEN 500 MG TAB Take one(1) tablet every four(4) to six(6) hours as needed for pain. 0 No current facility-administered medications for this visit. Spirometry Never done Behavioral Health Screening Never done EXAM: BP 110/70 Pulse 74 Resp 18 Wt 59 kg (130 lb) SpO2 98% BMI 25.03 kg/m 01/17/2024 01/27/2024 02/07/2024 03/17/2024 03/24/2024 Vitals WEIGHT in POUNDS 135 lb 133 lb 133 lb 133 lb 6.1 oz 130 lb WEIGHT in KILOGRAMS 61.236 kg 60.328 kg 60.328 kg 60.5 kg 58.968 kg Pleasant adult in no acute distress. Alert and oriented all spheres. Normal affect and cognition. Speech normal. No deficits to learning or comprehension. Skin warm, dry, pink to lips and nailbeds. Normal turgor. Respirations regular and unlabored. HEENT: NCAT. No scleral icterus or conjunctival injection. TM's clear. Nose and oropharynx free from injection or lesion. Oral membranes moist and pink. No cervical lymph nodes. Thyroid non-tender, no masses, or enlargement. Carotids pulses 2+/4+ without bruits. No JVD with HOB at 30 degrees. Chest is normal shape. Lungs are clear to all heredia with good air exchange through out. HRRR without murmur or gallop. No lifts, heaves, or rubs. Abdomen: active bowel sounds throughout, soft, nontender, no masses or organomegaly. No CVAT. Deferred rectal due to pain with last exam. Extrem: no clubbing or cyanosis. Edema: none. Extremities are warm and pink with prompt capillary refill. ASSESSMENT/PLAN: 1. Acute constipation - ICD9: 564.00, ICD10: K59.00 (primary diagnosis) Claims no BM in 30 days with fiber, miralax, lactulose though identifies on small turd after Fleets enema. Recently started on Nortriptyiline, also on Klonopin, and recently from ER clorazepate which she says she hasn't used. Encouraged discussion with psychiatrist regarding her current constipation issues. - XR ABDOMEN 1V SUPINE - CONSULT TO GASTROENTEROLOGY 2. SVT (supraventricular tachycardia) (HCC) - ICD9: 427.89, ICD10: I47.10 Following with [place] [facility]: recent nuclear pharm stress WNL. Heart flutters when she lays down, asymptomatic otherwise. Discussed levalbuterol with less tachycardia but still can exacerbate. Not taking propranolol 3. RUY (generalized anxiety disorder) - ICD9: 300.02, ICD10: F41.1 Feels it remains uncontrolled. Identifies heart flutters as anxiety, discussed SVT as more likely an aberrant pathway in heart conduction. Should discuss with j2ee consultant. Some of this note may have been copied and pasted for the purpose of history context and comparison. All questions listed were asked and adjusted for changes in prior data. Kevin Andersen PA-C documented in this encounterThe [facility]04-16-[facility] History of Present illness Narrative* Shoshana Perry APRN.AUTOMOBILE RENTAL AGENT - 03/17/2024 6:58 PM EDT This note was created using HypePointsriter. Subjective Sachi Grace is a 88 year old female. 88 year old female with PMH RLS, hyperlipidemia, asthma, and anxiety presents for wound. Acute onset one hour ago Left forearm Cut on ra[place] luna Denies head injury Denies neck pain Denies LOC. States that she used rubbing alcohol Denies blood thinners Last Tdap 2017 The history is provided by the patient. No fuel pilot engineer was used. Laceration The incident occurred 1 to 3 hours ago. Pain location: left forearm. The laceration is 1 cm in size. The pain is at a severity of 5/10. The pain is moderate. The pain has been Constant since onset. She reports no foreign bodies present. Tetanus status: last tetanus 2017. PAST MEDICAL HISTORY Diagnosis Date Anosmia loss of taste, not smell Asthma moderate persistant Bilateral sensorineural hearing loss Disorder of bone and cartilage, unspecified osteopenia, on actonel (Kilo) Diverticulitis s/p partial colectomy Family history of colon cancer in father Fibromyalgia Generalized anxiety disorder 1994 Dr. Dupree-every 6 months Gout, unspecified late great toe, several episodes Hypothyroidism, unspecified Multinodular goiter Dr Boateng Osteoarthritis of both knees Other and unspecified hyperlipidemia diet therapy as of 03/08 Paroxysmal supraventricular tachycardia (HCC) ablation 01/2002 ( in [place], [facility]), follows with Dr. Moreno (prn only) RLS (restless legs syndrome) Tinnitus, unspecified ear Unspecified constipation PAST SURGICAL HISTORY Procedure Laterality Date APPENDECTOMY ARTHRP KNE CONDYLE&PLATU MEDIAL&LAT COMPARTMENTS 2011 Knee replacement, total bilateral CARPAL TUNNEL 2005 bilateral COLONOSCOPY FLX DX W/COLLJ SPEC WHEN PFRMD 12/14/2002 Colonoscopy COLONOSCOPY FLX DX W/COLLJ SPEC WHEN PFRMD 06/10/2007 COLONOSCOPY FLX DX W/COLLJ SPEC WHEN PFRMD 08/04/2013 Colonoscopy COLONOSCOPY FLX DX W/COLLJ SPEC WHEN PFRMD 10/14/2018 [facility]-Repeat 5 years COLONOSCOPY SCREENING 11/15/2023 R [place] no repeat due to age CORRECT BUNION,SIMPLE left ECHOCARDIOGRAM 10/18/2017 EGD 1985 bleeding ulcer EPS: SVT/VT ABLATION 2001 [facility] ESOPHAGOGASTRODUODENOSCOPY TRANSORAL DIAGNOSTIC 03/24/2018 EGD HERNIA REPAIR HX 09/2020 ventral hernia repair HOLTER 24 HR 10/2017 LOOP RECORDER IMPLANT 01/23/2018 NASAL/SINUS ENDOSCOPY WITH SPHENOIDOTOMY Bilateral 05/15/2019 Dr. Ruffin NASAL/SINUS ENDOSCPY W/MAXILL ANTROSTOMY Bilateral 05/15/2019 Dr. Ruffin NASAL/SINUS ENDOSCPY W/TOTAL ETHMOIDECTOMY Bilateral 05/15/2019 Dr. Ruffin OPEN REPAIR OF ROTATOR CUFF ACUTE 04/2005 Dr. Mejias PAST SURGICAL HISTORY OF 10/1997 partial colectomy ([place], [facility]) PAST SURGICAL HISTORY OF 2011 nerves cut in my back STEREO LOC FOR CORE BRST BX LT 04/24/2010 left STRESS TEST 12/17/2017 TONSILLECTOMY PRIMARY/SECONDARY <AGE 12 ALLERGIES Vicodin [Hydrocodone-Acetaminophen], Cocamidopropyl Betaine, Codeine, Percocet [Oxycodone-Acetaminophen], Sulfa (Sulfonamide Antibiotics), and Tetracycline MEDICATIONS nortriptyline (PAMELOR) 10 mg capsule Take 1 capsule by mouth every 12 hours. ondansetron orally disintegrating (ZOFRAN ODT) 4 mg disintegrating tablet Take 1 tablet by mouth every 6 hours as needed for nausea/vomiting. lactulose 10 gram/15 mL solution Take 30 mL by mouth once daily. propranolol (INDERAL) 10 mg tablet aspirin, enteric coated (ASPIRIN, ENTERIC COATED) 81 mg EC tablet Take 1 tablet by mouth once daily. rOPINIRole (REQUIP) 0.5 mg tablet Take 1.5 tablets by mouth daily at bedtime. triamcinolone (KENALOG IN ORABASE) 0.1 % paste 0.25 Inches by DENTAL route two times a day. Cholecalciferol, Vitamin D3, (VITAMIN D) 25 mcg (1,000 unit) cap Take 1,000 Units by mouth once daily. levothyroxine (SYNTHROID) 75 mcg tablet Take 75 mcg on empty stomach Thurs & Sun; 50 mcg on an empty stomach all other days fluticasone propionate (ARMONAIR DIGIHALER INHALATION) Inhale as instructed. clonazePAM (KLONOPIN) 0.5 mg tablet Take 0.5 mg by mouth at bedtime as needed. Dr Joon Avery,C,O-Evmm-Qollvt (PRESERVISION AREDS) 7,160-113-100 [id number]-ji-fxyw tab Take by mouth. ACETAMINOPHEN 500 MG TAB Take one(1) tablet every four(4) to six(6) hours as needed for pain. FAMILY HISTORY Problem Relation Age of Onset Heart Mother rheumatic; 73 Colon Cancer Father dx'd age 50's Coronary Artery Disease Father age 40s, CABG (among the first done at in [place]) Stroke Sister at 58 of ruptured aneurysm Cancer Brother at 55 (tobacco, agent orange) DVT Sister Social History Tobacco Use Smoking status: Never Smokeless tobacco: Never Vaping Use Vaping Use: Never used Substance Use Topics Alcohol use: No Drug use: No Review of Systems Constitutional: Negative for activity change, appetite change, chills, fatigue and fever. Eyes: Negative for pain, discharge, redness and itching. Respiratory: Negative for apnea, cough, choking and chest tightness. Cardiovascular: Negative for chest pain, palpitations and leg swelling. Gastrointestinal: Negative for abdominal pain, diarrhea, nausea and vomiting. Musculoskeletal: Negative for back pain. Skin: Positive for wound. Negative for color change and pallor. Allergic/Immunologic: Negative for environmental allergies, food allergies and immunocompromised state. Neurological: Negative for dizziness, facial asymmetry, light-headedness and headaches. Hematological: Negative for adenopathy. Does not bruise/bleed easily. Psychiatric/Behavioral: Negative for agitation and behavioral problems. Objective BP 139/83 Pulse 87 Temp 36.6 C (97.9 F) Resp 18 Wt 60.5 kg (133 lb 6.1 oz) SpO2 93% BMI25.68 kg/m Physical Exam Vitals and nursing note reviewed. Constitutional: General: She is not in acute distress. Appearance: Normal appearance. She is normal weight. She is not ill-appearing, toxic-appearing or diaphoretic. HENT: Head: Normocephalic and atraumatic. Right Ear: Ear canal and external ear normal. Left Ear: Ear canal and external ear normal. Nose: Nose normal. No congestion or rhinorrhea. Mouth/Throat: Mouth: Mucous membranes are moist. Pharynx: No oropharyngeal exudate or posterior oropharyngeal erythema. Eyes: General: Right eye: No discharge. Left eye: No discharge. Extraocular Movements: Extraocular movements intact. Conjunctiva/sclera: Conjunctivae normal. Pupils: Pupils are equal, round, and reactive to light. Cardiovascular: Rate and Rhythm: Normal rate and regular rhythm. Pulses: Normal pulses. Heart sounds: Normal heart sounds. No murmur heard. No friction rub. Pulmonary: Effort: Pulmonary effort is normal. No respiratory distress. Breath sounds: Normal breath sounds. No stridor. No wheezing, rhonchi or rales. Chest: Chest wall: No tenderness. Abdominal: General: Abdomen is flat. There is no distension. Palpations: Abdomen is soft. There is no mass. Tenderness: There is no abdominal tenderness. There is no right CVA tenderness, left CVA tenderness, guarding or rebound. Hernia: No hernia is present. Musculoskeletal: General: No swelling, tenderness, deformity or signs of injury. Normal range of motion. Cervical back: Normal range of motion and neck supple. No rigidity. Right lower leg: No edema. Left lower leg: No edema. Lymphadenopathy: Cervical: No cervical adenopathy. Skin: General: Skin is warm and dry. Capillary Refill: Capillary refill takes less than 2 seconds. Coloration: Skin is not jaundiced or pale. Findings: Erythema present. No bruising, lesion or rash. Comments: Left forearm with superficial laceration. No FB No active bleeding. Neurological: General: No focal deficit present. Mental Status: She is alert and oriented to person, place, and time. Cranial Nerves: No cranial nerve deficit. Sensory: No sensory deficit. Motor: No weakness. Coordination: Coordination normal. Gait: Gait normal. Psychiatric: Mood and Affect: Mood normal. Behavior: Behavior normal. Thought Content: Thought content normal. Judgment: Judgment normal. Assessment and Plan ASSESSMENT/PLAN: 1. Arm laceration, left, initial encounter - ICD9: 884.0, ICD10: S41.112A (primary diagnosis) Superficial Wound cleansed ATB ointment applied 2. Encounter for immunization - ICD9: V03.89, ICD10: Z23 Tenivac updated Shoshana Perry APRN.AUTOMOBILE RENTAL AGENT documented in this encounterThe [facility]04-10-[facility]24 Miscellaneous Notes* Telephone Encounter - Jeyson Snowden MA - 03/11/2024 1:58 PM EDT Patient was notified Jeyson Snowden MA * Telephone Encounter - Graham Flores MD - 03/11/2024 1:50 PM EDT It has not been studied so difficult to say but is unlikley. 90 is a little higher than she normally runs but is still a normal heart rate. If any chest pain, shortness of breath or palpitations, would need seen * Telephone Encounter - Sharon Paul RN - 03/11/2024 1:38 PM EDT Patient calls and states that heart rate is in the 90s. Patient has issues with anxiety so a friendrecommended that she try CBD drop. Patient reports that she took half a drop on Saturday, Saturday, and Saturday. Patient took a whole drop on Saturday and Saturday. Patient asking if CBD could be causing this? Please review and advise, Sharon Paul, RN documented in this encounterThe [facility]03-08-2024 Instructions* Patient Instructions* Anitra Mancera APRN.CNS - 02/07/2024 11:14 AM EST 1) Stop miralax 2) Take lactulose 1 Tbsp daily for constipation 3) Zofran 4mg every 6 hr as needed for nausea 4) Flonase OTC for nasal congestion documented in this encounterThe [facility]03-08-2024 History of Present illness Narrative* Anitra Mancera APRN.CNS - 02/07/2024 10:47 AM EST This is a 88 year old female who presents today with: Patient presents with: Constipation Sinusitis HISTORY OF PRESENT ILLNESS: Sachi Grace is a 88 year old female. Patient presents with: Constipation Sinusitis Heart racing in the morning when she awakens. 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 Dupree-every 6 months Gout, unspecified late great toe, several episodes Hypothyroidism, unspecified Multinodular goiter Dr Boateng Osteoarthritis of both knees Other and unspecified hyperlipidemia diet therapy as of 03/08 Paroxysmal supraventricular tachycardia (HCC) ablation 01/2002 ( in [place], [facility]), follows with Dr. Moreno (prn only) RLS (restless legs syndrome) Tinnitus, unspecified ear Unspecified constipation PAST SURGICAL HISTORY Procedure Laterality Date APPENDECTOMY ARTHRP KNE CONDYLE&PLATU MEDIAL&LAT COMPARTMENTS 2011 Knee replacement, total bilateral CARPAL TUNNEL 2004 bilateral COLONOSCOPY FLX DX W/COLLJ SPEC WHEN PFRMD 12/14/2002 Colonoscopy COLONOSCOPY FLX DX W/COLLJ SPEC WHEN PFRMD 06/10/2007 COLONOSCOPY FLX DX W/COLLJ SPEC WHEN PFRMD 08/04/2013 Colonoscopy COLONOSCOPY FLX DX W/COLLJ SPEC WHEN PFRMD 10/14/2018 [facility]. [place]-Repeat 5 years COLONOSCOPY SCREENING 11/15/2023 R [place] no repeat due to age CORRECT BUNION,SIMPLE left ECHOCARDIOGRAM 10/18/2017 EGD 1985 bleeding ulcer EPS: SVT/VT ABLATION 2001 [facility] ESOPHAGOGASTRODUODENOSCOPY TRANSORAL DIAGNOSTIC 03/24/2018 EGD HERNIA REPAIR HX 09/2020 ventral hernia repair HOLTER 24 HR 10/2017 LOOP RECORDER IMPLANT 01/23/2018 NASAL/SINUS ENDOSCOPY WITH SPHENOIDOTOMY Bilateral 05/15/2019 Dr. Ruffin NASAL/SINUS ENDOSCPY W/MAXILL ANTROSTOMY Bilateral 05/15/2019 Dr. Ruffin NASAL/SINUS ENDOSCPY W/TOTAL ETHMOIDECTOMY Bilateral 05/15/2019 Dr. Ruffin OPEN REPAIR OF ROTATOR CUFF ACUTE 04/2005 Dr. Mejias PAST SURGICAL HISTORY OF 10/1997 partial colectomy ([place], [facility]) PAST SURGICAL HISTORY OF 2011 nerves cut in my back STEREO LOC FOR CORE BRST BX LT 04/24/2010 left STRESS TEST 12/17/2017 TONSILLECTOMY PRIMARY/SECONDARY <AGE 12 ALLERGIES Vicodin [Hydrocodone-Acetaminophen], Cocamidopropyl Betaine, Codeine, Percocet [Oxycodone-Acetaminophen], Sulfa (Sulfonamide Antibiotics), and Tetracycline MEDICATIONS Current Outpatient Medications Medication Sig propranolol (INDERAL) 10 mg tablet aspirin, enteric coated (ASPIRIN, ENTERIC COATED) 81 mg EC tablet Take 1 tablet by mouth once daily. rOPINIRole (REQUIP) 0.5 mg tablet Take 1.5 tablets by mouth daily at bedtime. triamcinolone (KENALOG IN ORABASE) 0.1 % paste 0.25 Inches by DENTAL route two times a day. Cholecalciferol, Vitamin D3, (VITAMIN D) 25 mcg (1,000 unit) cap Take 1,000 Units by mouth once daily. levothyroxine (SYNTHROID) 75 mcg tablet Take 75 mcg on empty stomach Thurs & Sun; 50 mcg on an empty stomach all other days fluticasone propionate (ARMONAIR DIGIHALER INHALATION) Inhale as instructed. clonazePAM (KLONOPIN) 0.5 mg tablet Take 0.5 mg by mouth at bedtime as needed. Dr Joon nolasco A,C,Q-Hgkq-Ljsidb (PRESERVISION AREDS) 7,160-113-100 ernv-tp-deem tab Take by mouth. ACETAMINOPHEN 500 MG TAB Take one(1) tablet every four(4) to six(6) hours as needed for pain. lactulose 10 gram/15 mL solution Take 30 mL by mouth once daily. No current facility-administered medications for this visit. FAMILY HISTORY Problem Relation Age of Onset Heart Mother rheumatic; 73 Colon Cancer Father dx'd age 50's Coronary Artery Disease Father age 40s, CABG (among the first done at in [place]) Stroke Sister at 58 of ruptured aneurysm Cancer Brother at 55 (tobacco, agent orange) DVT Sister Social History Tobacco Use Smoking status: Never Smokeless tobacco: Never Vaping Use Vaping Use: Never used Substance Use Topics Alcohol use: No Drug use: No EXAM: BP 112/62 Pulse 71 Temp 36.6 C (97.9 F) (Left Tympanic) Resp 18 Wt 60.3 kg (133 lb) SpO2 97% BMI 25.61 kg/m PHYSICAL EXAM: General Appearance: Well appearing, alert, in no acute distress, well-hydrated, well nourished. HEENT: ears free of cerumen, no erythema, nasal turbinates smooth and slightly red Head: Normocephalic, no masses, lesions, tenderness or abnormalities. Lungs: Lungs clear to auscultation. No wheezing, rhonchi, rales.. Heart: RRR without murmur, gallop, or rubs. No ectopy. Abdomen: Normal abdominal exam, Abdomen soft, non-tender. Bowel sounds normal. No masses, organomegaly. Musculoskeletal: No joint swelling, deformity, or tenderness. Holter monitor showed SVT- 15 events, 8-11 beats ASSESSMENT/PLAN: 1. SVT (supraventricular tachycardia) (HCC) - ICD9: 427.89, ICD10: I47.10 (primary diagnosis) - Offered cardiology reconsult 2. Acute constipation - ICD9: 564.00, ICD10: K59.00 - BM today- treated with d/c miralax - Will switch to lactulose 1 Tbsp daily 3. Nausea - ICD9: 787.02, ICD10: R11.0 Chronic - Treat with Zofran prn 4. Allergic rhinitis - Has OTC Flonase at home Discussed treatment plan and patient voices understanding. Patient's questions answered appropriately. Medications and potential side effects were discussed and patient voices understanding. Return to the office as scheduled or as needed for worsening/no improvement. Anitra Mancera APRN.CNS The patient indicates understanding of these issues and agrees with the plan. documented in [facility]The [facility]03-[facility]24 Miscellaneous Notes* Telephone Encounter - Zulma Benites Ma - 02/06/2024 6:44 PM EST Pt is scheduled for tomorrow for provider, will discuss at visit * Telephone Encounter - Zulma Benites Ma - 02/06/2024 2:14 PM EST No answer * Telephone Encounter - Zulma Benites Ma - 02/06/2024 9:18 AM EST Called cell, no answer, voicemail not set up * Telephone Encounter - Zulma Benites Ma - 02/06/2024 8:58 AM EST Attempted to call home line, line busy * Telephone Encounter - Anitra Mancera APRN.CNS - 02/06/2024 8:01 AM EST I would like to switch her to lactulose 1 Tablespoon daily and refer to stock manager. She canstop other bowel treatments other than drinking her water. Stop miralax. documented in this encounterThe [facility]03-06-2024 Miscellaneous Notes* Telephone Encounter - Marcia Sue RN - 02/05/2024 4:29 PM EST Patient triaged for chronic constipation. Stools are pencil like. Current treatment is not effective. Patient reports that she is taking Miralax but not metamucil as recommended. I don't see metamucil on current medication list. Nurse triage completed. Protocol recommends see provider within 3 days. Care advice reviewed. Patient verbalizes understanding. Patient going to try milk of magnesia per care advice. Requested an appointment for Saturday. Scheduled per request. Reason for Disposition Pencil-like, narrow stools Answer Assessment - Initial Assessment Questions 1. STOOL PATTERN OR FREQUENCY: Patient reports that she continues to have infrequent bowel movements that are smaller than she previously had. Patient reports that stool is 1 inch in length and pencil thickness in diameter. Last bowel movement this afternoon 2. STRAINING: No straining. 3. RECTAL PAIN: No rectal pain 4. STOOL COMPOSITION: No hardness. No firmness. She reports she just feels like her colon quit working. 5. BLOOD ON STOOLS:No 6. CHRONIC CONSTIPATION: Yes, years. Takes Miralax and Metamucil but quit taking the Metamucil because she thought maybe it was causing constipation. 7. CHANGES IN DIET OR HYDRATION: No diet changes. Drinks about 6 oz glasses of fluids daily. 8. MEDICINES: Buspirone 9. LAXATIVES: Miralax daily. Stopped the Metamucil 10. ACTIVITY: No change in activity level. 11. CAUSE: Patient not certain 12. OTHER SYMPTOMS: No abdominal pain, bloating, fever, or vomiting. Reports a queasy stomach at times and anxiety which is on-going. 13. MEDICAL HISTORY: Diverticulosis. Family history of malignant neoplasm of colon. No history of hemorrhoids, rectal fissures, or rectal surgery or rectal abscess. 11/2023 Colonoscopy with external hemorrhoids and diverticulosis of the sigmoid colon. Protocols used: [id number] * Telephone Encounter - Precious Burden - 02/05/2024 3:02 PM EST Patient called requesting to speak to a nurse as she is still constipated Please advise documented in this encounterThe [facility]03-01-2024 Miscellaneous Notes* Telephone Encounter - Zulma Benites Ma - 01/31/2024 2:23 PM EST Patient was made aware of the results. Patient verbalizes understanding. Zulma Benites Ma * Telephone Encounter - Zulma Benites Ma - 01/31/2024 2:21 PM EST ----- Message from Anitra Mancera APRN.CNS sent at 01/30/2024 5:18 PM EST ----- Echocardiogram showed a good strong heart. Tricuspid and mitral valves have a little bit of leakingdue to age. Cannot determine how effectively the heart is relaxing. This likely is not the reason for her shortness of breath. documented in this encounterThe [facility]03-01-2024 Miscellaneous Notes* Telephone Encounter - Alix Garcia RN - 01/31/2024 1:30 PM EST Pt called and is notified of providers results. Pt voices understanding. Alix Garcia RN * Telephone Encounter - Anitra Mancera APRN.CNS - 01/31/2024 1:09 PM EST Please let patient know that her stress test was normal. Heart function is very good and strong. Noareas of her heart that are lacking blood flow. This was a normal test. documented in this encounterThe [facility]02-29-2024 Miscellaneous Notes* Telephone Encounter - Anitra Mancera APRN.CNS - 01/30/2024 5:20 PM EST Nurse to call patient regarding echocardiogram results. Heart function good and strong. Stress testis still pending. documented in this encounterThe [facility]02-17-2024 Miscellaneous Notes* Telephone Encounter - Zulma Benites Ma - 01/18/2024 9:50 AM EST Will fax message to [facility] and advise that patient would like Joby Zhang to take over care, but keep current appointments scheduled until notified otherwise. Zulma Benites Ma * Telephone Encounter - Bart Lazar - 01/18/2024 9:20 AM EST Patient is requesting to do Nuc Med stress test with at [facility], please call [phone] for fax number to send order. Thank you. documented in this encounterThe [facility] Hospital02-16-2024 Instructions* Patient Instructions* Anitra Mancera APRN.CNS - 01/17/2024 3:43 PM EST 1) aspirin 81 mg daily 2) may hold propranolol due to wheezing 3) echocardiogram schedule 4) stress test needs scheduled 5) follow up in 1 month documented in this encounterThe [facility]02-16-2024 History of Present illness Narrative* Anitra Mancera APRN.CNS - 01/17/2024 3:12 PM EST This is a 88 year old female who presents today with: Patient presents with: Palpitations: 3 weeks. Worse with exertion Shortness of Breath: With exertion HISTORY OF PRESENT ILLNESS: Sachi Grace is a 88 year old female. Patient presents with: Palpitations: 3 weeks. Worse with exertion Shortness of Breath: With exertion Pt. Informed nurse that psychiatrist gave her propranolol short acting on the . She did not take it today because she wasn't having blood pressure or heart rate problems. During her intake, she complained of terrible racing heart. Her rate and rhythm did not reflect tachycardia. Palpitations started [address] Hirsch and wore a monitor. Dx. with anxiety. Nothing has helped. Recent episodes started 3 weeks ago. These are different. + Nauseated. No weakness. No headache. Nodiaphoresis. Not dizzy but a little lightheadedness. Activity makes it worse. Anxiety makes it worse, too. Nothing makes it better, maybe relieved with rest. Does not take a baby aspirin. + SOB with episodes. REVIEW OF SYSTEMS HEENT: Negative for frequent or significant headaches, No changes in hearing or vision. RESPIRATORY: Some dry cough, no hemoptysis, yes wheezing, yes dyspnea or shortness of breath CARDIOVASCULAR: Negative for chest pain, yes leg swelling, no orthopnea, yes palpitations GI: Yes nausea, no vomiting MUSCULOSKELETAL: Long history of fibromyalgia MOOD: Negative for depression, yes anxiety PAST MEDICAL HISTORY: PAST MEDICAL HISTORY Diagnosis Date Anosmia loss of taste, not smell Asthma moderate persistant Bilateral sensorineural hearing loss Disorder of bone and cartilage, unspecified osteopenia, on actonel (Kilo) Diverticulitis s/p partial colectomy Family history of colon cancer in father Fibromyalgia Generalized anxiety disorder 1994 Dr. Dupree-every 6 months Gout, unspecified late great toe, several episodes Hypothyroidism, unspecified Multinodular goiter Dr Boateng Osteoarthritis of both knees Other and unspecified hyperlipidemia diet therapy as of 03/08 Paroxysmal supraventricular tachycardia ablation 01/2002 ( in [place], [facility]), follows with Dr. Moreno (prn only) RLS (restless legs syndrome) Tinnitus, unspecified ear Unspecified constipation PAST SURGICAL HISTORY Procedure Laterality Date APPENDECTOMY ARTHRP KNE CONDYLE&PLATU MEDIAL&LAT COMPARTMENTS 2011 Knee replacement, total bilateral CARPAL TUNNEL 2004 bilateral COLONOSCOPY FLX DX W/COLLJ SPEC WHEN PFRMD 12/14/2002 Colonoscopy COLONOSCOPY FLX DX W/COLLJ SPEC WHEN PFRMD 06/10/2007 COLONOSCOPY FLX DX W/COLLJ SPEC WHEN PFRMD 08/04/2013 Colonoscopy COLONOSCOPY FLX DX W/COLLJ SPEC WHEN PFRMD 10/14/2018 [facility]. [place]-Repeat 5 years COLONOSCOPY SCREENING 11/15/2023 R [place] no repeat due to age CORRECT BUNION,SIMPLE left ECHOCARDIOGRAM 10/18/2017 EGD 1985 bleeding ulcer EPS: SVT/VT ABLATION 2001 [facility] ESOPHAGOGASTRODUODENOSCOPY TRANSORAL DIAGNOSTIC 03/24/2018 EGD HERNIA REPAIR HX 09/2020 ventral hernia repair HOLTER 24 HR 10/2017 LOOP RECORDER IMPLANT 01/23/2018 NASAL/SINUS ENDOSCOPY WITH SPHENOIDOTOMY Bilateral 05/15/2019 Dr. Ruffin NASAL/SINUS ENDOSCPY W/MAXILL ANTROSTOMY Bilateral 05/15/2019 Dr. Ruffin NASAL/SINUS ENDOSCPY W/TOTAL ETHMOIDECTOMY Bilateral 05/15/2019 Dr. Ruffin OPEN REPAIR OF ROTATOR CUFF ACUTE 04/2005 Dr. Mejias PAST SURGICAL HISTORY OF 10/1997 partial colectomy ([place], [facility]) PAST SURGICAL HISTORY OF 2011 nerves cut in my back STEREO LOC FOR CORE BRST BX LT 04/24/2010 left STRESS TEST 12/17/2017 TONSILLECTOMY PRIMARY/SECONDARY <AGE 12 ALLERGIES Vicodin [Hydrocodone-Acetaminophen], Cocamidopropyl Betaine, Codeine, Percocet [Oxycodone-Acetaminophen], Sulfa (Sulfonamide Antibiotics), and Tetracycline MEDICATIONS Current Outpatient Medications Medication Sig rOPINIRole (REQUIP) 0.5 mg tablet Take 1.5 tablets by mouth daily at bedtime. triamcinolone (KENALOG IN ORABASE) 0.1 % paste 0.25 Inches by DENTAL route two times a day. Cholecalciferol, Vitamin D3, (VITAMIN D) 25 mcg (1,000 unit) cap Take 1,000 Units by mouth once daily. levothyroxine (SYNTHROID) 75 mcg tablet Take 75 mcg on empty stomach Thurs & Sun; 50 mcg on an empty stomach all other days fluticasone propionate (ARMONAIR DIGIHALER INHALATION) Inhale as instructed. polyethylene glycol 3350 (CLEARLAX ORAL) Take by mouth. clonazePAM (KLONOPIN) 0.5 mg tablet Take 0.5 mg by mouth at bedtime as needed. Dr Joon nolasco A,C,B-Uyjh-Esorhm (PRESERVISION AREDS) 7,160-113-100 fjdn-nj-iviz tab Take by mouth. ACETAMINOPHEN 500 MG TAB Take one(1) tablet every four(4) to six(6) hours as needed for pain. propranolol (INDERAL) 10 mg tablet (Patient not taking: Reported on 01/17/2024) No current facility-administered medications for this visit. FAMILY HISTORY Problem Relation Age of Onset Heart Mother rheumatic; 73 Colon Cancer Father dx'd age 50's Coronary Artery Disease Father age 40s, CABG (among the first done at in [place]) Stroke Sister at 58 of ruptured aneurysm Cancer Brother at 55 (tobacco, agent orange) DVT Sister Social History Tobacco Use Smoking status: Never Smokeless tobacco: Never Vaping Use Vaping Use: Never used Substance Use Topics Alcohol use: No Drug use: No EKG shows first-degree AV block, heart rate 80, early R wave progression, may be LVH. No ischemic changes EXAM: BP 128/66 Pulse 74 Wt 61.2 kg (135 lb) SpO2 95% BMI 25.99 kg/m PHYSICAL EXAM: General Appearance: well appearing, alert and oriented. Skin: no suspicious lesion, no rash, no open sores Head: normocephalic, no obvious masses, lesions, tenderness or abnormalities. Neck: trachea midline, no regional lymphadenopathy. Lungs: Chest rise & fall symmetrical, expiratory wheezing throughout. Abdomen: normal bowel sounds, no mass, non-tender Heart: S1S2, no gallop, soft systolic ejection murmur at lower sternal border and 1+ lower extremity edema Ext: no clubbing, cyanosis or edema. Mood: Anxious, speech clear, answers questions appropriately LABS: Reviewed recent labs ASSESSMENT/PLAN: 1. Palpitations - ICD9: 785.1, ICD10: R00.2 (primary diagnosis) These palpitations are not related to a heart rate change. Associated with shortness of breath and nausea. Occur with activity and subside with rest - ECG COMPLETE - ECHO PED W/O CONTRAST - NM CARDIAC PERF STRESS/PHARM - REGADENOSON 0.4 MG/5 ML INTRAVENOUS SYRINGE - AMINOPHYLLINE 250 MG/10 ML INTRAVENOUS SOLUTION - METOPROLOL TARTRATE 5 MG/5 ML INTRAVENOUS SOLUTION - ASPIRIN 81 MG TABLET,DELAYED RELEASE - ECHO - PERFLUTREN LIPID MICROSPHERES 1.1 MG/ML INJECTION IN NS 10 ML - SODIUM CHLORIDE 0.9 % (FLUSH) INJECTION SYRINGE 2. Shortness of breath - ICD9: 786.05, ICD10: R06.02 Expiratory wheezing throughout. - History of asthma, hold propranolol until follow-up poststress test - NM CARDIAC PERF STRESS/PHARM - ASPIRIN 81 MG TABLET,DELAYED RELEASE - ECHO Discussed treatment plan and patient voices understanding. Patient's questions answered appropriately. Medications and potential side effects were discussed and patient voices understanding. Return to the office as scheduled or as needed for worsening/no improvement. Anitra Mancera APRN.CONSUMER LOAN OFFICER The patient indicates understanding of these issues and agrees with the plan. documented in this encounterThe [facility]02-14-2024 Miscellaneous Notes* Telephone Encounter - Lily Soriano LPN - 01/15/2024 4:15 PM EST Patient is scheduled on Saturday per her request. * Telephone Encounter - Graham Flores MD - 01/15/2024 4:04 PM EST Needs to talk about psych about the anxiety meds. We had discussed considering redoing her cardiac work up while here, she had declined. If she wants, reschedule with one of us to discuss. * Telephone Encounter - Precious Chambers LPN - 01/15/2024 3:56 PM EST Pt seen in the office 01/01/24. Pt calling to report she is still feeling the same, no improvement at all. States she still feels her heart pounding in her chest, SOB, nausea & feels shaky. And has numbness in toes. No new symptoms. Pt reports her BP yest am was 95/52 & later in the day was 116/72. Pt saw Dr De Anda yesterday & was started on propanolol 10mg twice daily as needed for anxiety. Pt states she took one tab this am & it did nothing. Also taking Buspar 5mg twice daily & clonazepam, pt states it helps some but not much. Sleeps until about 3 am then is up. Please advise. Precious Chambers LPN documented in this encounterThe [facility] Hospital01-26-2024 Miscellaneous Notes* Telephone Encounter - Bart Kyle LPN - 12/27/2023 11:44 AM EST Pt scheduled with PATIENT CARE TECHNICIAN for consultation regarding ongoing symptoms. Phoned pt for clarification. Pt states she has been dealing with anxiety symptoms- racing heart, shortness of breath, shaky feeling for 3 years. She denies CP. Pt states she starts to feel this way when she is sitting down playing [employer], she states I just get worked up. She states she has had cardiac work up and it's been negative. She also notes that she sees psych and is on 6 different pills. Pt states she would prefer appt with Dr. Flores if possible. Advised there is nothing available today. 1st available is Saturday. Pt would like appt on Saturday with Dr. Flores. Appt scheduled. Advised pt that if she were to develop any CP or worsening of symptoms to go directly to ER. Bart Kyle LPN documented in this encounterThe [facility]12-15-2023 Miscellaneous Notes* Telephone Encounter - Venancio MoralesLoniJenn M - 11/15/2023 9:33 AM EST Pharmacy verified in [facility] Patient has been identified by name and date of : Yes Patient aware RX will be sent to pharmacy. No need to notify patient. Patient phones for refill(s): Requested Prescriptions Pending Prescriptions Disp Refills rOPINIRole (REQUIP) 0.5 mg tablet 45 tablet 2 Sig: Take 1.5 tablets by mouth daily at bedtime. Date of last office visit : 10/03/2023 Date of next office visit : Visit date not found Last 2 Encounter Wt Readings: Date: Wt: 10/03/2023 61.2 kg (135 lb) 08/19/2023 60.8 kg (134 lb) Not applicable Please advise. Jenn Craft Pss documented in this encounterThe [facility] Hospital11-03-2023 Miscellaneous Notes* Telephone Encounter - Sharon Paul RN - 10/04/2023 10:00 AM EDT Order faxed to [facility]. Sharon Paul RN * Telephone Encounter - Kevin Andersen PA-C - 10/03/2023 6:44 PM EDT Telephone on 10/03/23 KIP SCREENING Please send to [facility] ThanksYao PA-C * Telephone Encounter - Sharon Paul RN - 10/03/2023 4:25 PM EDT Patient calls and is asking for mammogram order to be placed and faxed to [facility]. Please review and advise, Sharon Paul RN documented in this encounterThe [facility] Hospital10-23-2023 History of Present illness Narrative* Berlin Ruiz MD - 09/23/2023 9:02 AM EDT UNIVERSAL PROTOCOL / SAFETY CHECKLIST Procedure to be Performed: EMG Sign In: A Moment of CARE was completed. Personnel directly involved with the procedure wore the appropriate PPE (Personal Protective Equipment). Patient/Surrogate Stated/Verified: PATIENT VERIFIED(optional for EMERGENT procedures): Patient name, Date of , Relevant allergies, and The intended procedure Time Out Communication: Intended patient and procedure match the source documents. Correct side/site marked and visible. Sign Out: SIGN OUT (optional for EMERGENT procedures): Post-procedure follow-up management communicated and Plan of Care Visit completed when applicable. [facility] Mora [facility] Berlin Ruiz MD documented in this encounterThe [facility] Hospital09-19-2023 Miscellaneous Notes* Telephone Encounter - Halima Diaz RN - 08/20/2023 3:04 PM EDT Patient calling to request EMG order be faxed to [facility]. Faxed as requested. Halima Diaz RN documented in this encounterThe Christ Hospital09-18-2023 History of Present illness Narrative* Graham Flores MD - 08/19/2023 6:45 PM EDT Patient presents with: restless legs HPI: Patient presents today for office visit for follow up. Reports that iron levels are low and has restless legs. Trouble taking iron pills as they cause constipation. Trouble with swelling in bilateral knees. Swell during the day and better in the morning.Numbness in great toe and 2-3 beside it bilateral feet. Numbness in her toes has been there since May. No numbness in her feet. No weakness in the legs. Is in both toes equally. Has seen eleonora for her knees. Yao Andersen recently did work up for arthralgia. Was referred to rheumatology. Would recommend that she keep that. Saw Dr. Lopez today who hanna fluid out for her knees and he sent the fluid out. He thinks her knee replacements may be wearing out. He also thinks her feet numbness is coming from her back. Discussed that we could her emg. Iron was low last year. However, her current iron is ok so is unlikely to be causing any issues. She stopped the iron on her own due to constipation a few weeks ago. Without the iron her bowels are working well. No heartburn or stomach pain. No bloody or black stools. Seeing Dr. Tabares in October. Did not do her ifobt as ordered. Treating her iron deficiency made no difference in the RLS so doubt it is related. She did discuss apparently over the phone increasing her ropinarole to 0.75 mg a day but has run out. She does feel that dose helps. Sees psych and is on requip, pamelor and klonopin MEDICATIONS: Current Outpatient Medications Medication Sig ferrous gluconate 324 mg (37.5 mg iron) tablet Take 1 tablet by mouth once daily. rOPINIRole (REQUIP) 0.5 mg tablet Take 1 tablet by mouth daily at bedtime. levothyroxine (SYNTHROID) 75 mcg tablet Take 75 mcg on empty stomach Thurs & Sun; 50 mcg on an empty stomach all other days nortriptyline (PAMELOR) 10 mg capsule Take 10 mg by mouth. 3 tabs daily at bedtime fluticasone propionate (ARMONAIR DIGIHALER INHALATION) Inhale as instructed. polyethylene glycol 3350 (CLEARLAX ORAL) Take by mouth. clonazePAM (KLONOPIN) 0.5 mg tablet Take 0.5 mg by mouth at bedtime as needed. Dr Dupree vit A,C,M-Uedn-Pzrxgu (PRESERVISION AREDS) 7,160-113-100 ydtq-ge-tsja tab Take by mouth. ACETAMINOPHEN 500 MG TAB Take one(1) tablet every four(4) to six(6) hours as needed for pain. No current facility-administered medications for this visit. ALLERGIES: ALLERGIES Allergen Reactions Vicodin [Hydrocodon* GI Upset Cocamidopropyl Beta* Rash itching, rash Codeine GI Upset Percocet [Oxycodone* GI Upset Sulfa (Sulfonamide * Hives, Swelling lips swelled up Tetracycline GI Upset PAST MEDICAL HISTORY Diagnosis Date Anosmia loss of taste, not smell Asthma moderate persistant Bilateral sensorineural hearing loss Disorder of bone and cartilage, unspecified osteopenia, on actonel (Kilo) Diverticulitis s/p partial colectomy Family history of colon cancer in father Fibromyalgia Generalized anxiety disorder 1994 Dr. Dupree-every 6 months Gout, unspecified late great toe, several episodes Hypothyroidism, unspecified Multinodular goiter Dr Boateng Osteoarthritis of both knees Other and unspecified hyperlipidemia diet therapy as of 4/07 Paroxysmal supraventricular tachycardia (HCC) ablation 01/2002 ( in [place], [facility]), follows with Dr. Moreno (prn only) RLS (restless legs syndrome) Tinnitus, unspecified ear Unspecified constipation PAST SURGICAL HISTORY Procedure Laterality Date APPENDECTOMY ARTHRP KNE CONDYLE&PLATU MEDIAL&LAT COMPARTMENTS 2012 Knee replacement, total bilateral CARPAL TUNNEL 2005 bilateral COLONOSCOPY FLX DX W/COLLJ SPEC WHEN PFRMD 12/14/2002 Colonoscopy COLONOSCOPY FLX DX W/COLLJ SPEC WHEN PFRMD 06/10/2007 COLONOSCOPY FLX DX W/COLLJ SPEC WHEN PFRMD 08/04/2013 Colonoscopy COLONOSCOPY FLX DX W/COLLJ SPEC WHEN PFRMD 10/14/2018 [facility] Tabares-Repeat 5 years CORRECT BUNION,SIMPLE left ECHOCARDIOGRAM 10/18/2017 EGD 1985 bleeding ulcer EPS: SVT/VT ABLATION 2001 [facility] ESOPHAGOGASTRODUODENOSCOPY TRANSORAL DIAGNOSTIC 03/24/2018 EGD HERNIA REPAIR HX 09/2020 ventral hernia repair HOLTER 24 HR 10/2017 LOOP RECORDER IMPLANT 01/23/2018 NASAL/SINUS ENDOSCOPY WITH SPHENOIDOTOMY Bilateral 05/15/2019 Dr. Ruffin NASAL/SINUS ENDOSCPY W/MAXILL ANTROSTOMY Bilateral 05/15/2019 Dr. Ruffin NASAL/SINUS ENDOSCPY W/TOTAL ETHMOIDECTOMY Bilateral 05/15/2019 Dr. Ruffin OPEN REPAIR OF ROTATOR CUFF ACUTE 04/2005 Dr. Mejias PAST SURGICAL HISTORY OF 10/1997 partial colectomy ([place], [facility]) PAST SURGICAL HISTORY OF 2011 nerves cut in my back STEREO LOC FOR CORE BRST BX LT 04/24/2010 left STRESS TEST 12/17/2017 TONSILLECTOMY PRIMARY/SECONDARY <AGE 12 FAMILY HISTORY Problem Relation Age of Onset Heart Mother rheumatic; 73 Colon Cancer Father dx'd age 50's Coronary Artery Disease Father age 40s, CABG (among the first done at in [place]) Stroke Sister at 58 of ruptured aneurysm Cancer Brother at 55 (tobacco, agent orange) DVT Sister Social History Tobacco Use Smoking status: Never Smokeless tobacco: Never Vaping Use Vaping Use: Never used Substance Use Topics Alcohol use: No Drug use: No Reviewed current medications, allergies, past medical history, surgical history, family history andsocial history today. REVIEW OF SYSTEMS All other reviewed and negative other than HPI. VITALS: BP 122/82 Pulse 80 Wt 60.8 kg (134 lb) BMI 25.80 kg/m Last 4 Encounter Wt Readings: Date: Wt: 07/02/2023 61.7 kg (136 lb) 05/28/2023 61.7 kg (136 lb) 04/27/2023 62.9 kg (138 lb 9.6 oz) 01/22/2023 62.1 kg (137 lb) PHYSICAL EXAMINATION: General appearance: Well appearing, alert, in no acute distress, well-hydrated, well nourished. Skin: Skin color, texture, turgor normal, no suspicious rashes or lesions Head: Normocephalic, no masses, lesions, tenderness or abnormalities Lungs: Lungs clear to auscultation. No wheezing, rhonchi, rales Heart: RRR without murmur, gallop, or rubs. No ectopy Abdomen: Normal abdominal exam, Abdomen soft, non-tender. Bowel sounds normal. No masses, organomegaly Extremities: No deformities, skin discoloration, clubbing or cyanosis. Good capillary refill. Slight edema. Knees unremarkable. Musculoskeletal: No joint swelling, deformity, or tenderness Peripheral pulses: Normal Neuro: subjective decreased sensation to monofilament in both feet over medial side of plantar aspect of foot. Hammer toe on left. ASSESSMENT/PLAN: 1. RLS (restless legs syndrome) - ICD9: 333.94, ICD10: G25.81 (primary diagnosis) - can continue to higher dose. Related that if her iron has been ok that it is unlikely to be the cause. - ROPINIROLE 0.5 MG TABLET 2. History of total bilateral knee replacement - ICD9: V43.65, ICD10: Z96.653 - defer to Dr. Muñoz. 3. Paresthesia - ICD9: 782.0, ICD10: R20.2 - offered her emg - EMG(NEURO/NI) 4. Family history of iron deficiency - ICD9: V18.2, ICD10: Z83.2 - see Dr Tabares. - FECAL OCCULT BLOOD TEST - CBC + DIFF - IRON + TIBC Graham Flores MD documented in [facility] encounterThe [facility] Miscellaneous Notes* Telephone Encounter - Runkle, Lily MEDICAL BILLING COORDINATOR - 07/31/2023 1:46 PM EDT Spoke with patient and she will try this. Discussed foods to try eating. When should she checked iron levels again? * Telephone Encounter - Kevin Andersen PA-C - 07/31/2023 12:05 PM EDT As provided last discharge papers, try to increase food sources for iron. Try taking the iron supplement 3 times a week. If unable we can consider iron transfusions. ' Thanks, Yao Andersen PA-C * Telephone Encounter - Arin Lewis LPN - 07/30/2023 4:50 PM EDT Patient calling she had taken the new iron Ferrous gluconate and had gotten constipated and bowels stopped working. She stopped taking the iron on 07/25 and now her bowels are working again with her usual routine things, fiber and clear lax. Patient asking what did you want her to take for iron ? Patient [facility]. Please advise documented in this encounterThe [facility]08-04-2023 Miscellaneous Notes* Telephone Encounter - Zulma Benites Ma - 07/05/2023 5:11 PM EDT Pt notified of provider message * Telephone Encounter - Kevin Andersen PA-C - 07/05/2023 4:47 PM EDT Trial ferrous gluconate. Consult rheum per patient request Telephone on 07/05/23 CONSULT TO RHEUM/IMMUN DISEASE The following approved medication requests have been transmitted electronically. Requested Prescriptions Signed Prescriptions Disp Refills ferrous gluconate 324 mg (37.5 mg iron) tablet 90 tablet 1 Sig: Take 1 tablet by mouth once daily. Authorizing Provider: Kevin ANDERSEN PA-C * Telephone Encounter - Cathryn Rodriguez RN - 07/05/2023 10:35 AM EDT Pt calling in saying she saw her iron results on MyChart and noticed they were low again. States she had been on iron for 2 years but recently she had constipation issues which have resolved since she stopped it. Concerned about low iron and asking what Yao wants her to take now. Also wanting to let him know her restless legs are worse and that the swelling on her knees is getting worse and bothering her more. Wonders who she should see for that. States she has had bilat TKR but her orthopedicsurgeon has retired. Saw Dr. Muñoz recently but he said her sed rate was high and it came back higher. Pt wondering about a rubber tubing backer. documented in this encounterThe [facility]08-01-2023 Instructions* Patient Instructions* Kevni Andersen PA-C - 07/02/2023 10:52 AM EDT Foods Rich in Iron Foods Rich in Iron Please eat three servings a day from the foods listed below. You should note that the iron from fruits, vegetables, cereals, and eggs is not absorbed as efficiently as iron from meat, fish, and poultry. Adding vitamin C to your diet helps iron absorption from these foods. You may therefore want to take up to 1000 mg of vitamin C to help your body absorb the iron in your diet. The following foods, in the proportions listed, will provide you with more than 15 mg of iron. Apricots (dried) 5 halves-Beans (cooked) 1/2 cup-Beef (cooked) 2 oz-Beet greens (cooked) 1/2 cup-Bracey nuts 5 medium-Cereals 1 oz-Chicken (cooked) 3 oz - Cider (sweet) 10 oz - Clams 1 oz -Egg (Whole) 2- Ham (cooked) 2 oz - Heart (cooked) 2 oz- Kidney (cooked) 1 oz- Rick (cooked) 2 oz- Liver (cooked) 1 oz- Liver sausage 1 oz- Maple syrup 3 tbsp. Molasses 2 tbsp.- Oysters 1 oz- Peaches (dried) 3 halves- Peas (cooked) 1/2 cup- Pork (cooked) 2 oz-Prunes 4 medium - Prune juice 1/4 cup - Raisins 1 1/2 oz- Sardines 2 oz- Scallops 2 oz- Shrimp 2 oz- Spinach (cooked) 1/2 cup- Strawberries 1 cup- Tomato juice 3/4 cup- Tongue 2 oz- Tuna 1/2 cup- [place] (cooked) 1 oz- Veal (cooked) 1 oz- Watermelon (6 x11/2) 1 slice-Wheat Germ 2 tbsp. Iron supplements are absorbed best when taken between meals, not with food, with liquids other thanmilk, coffee, or tea. Taking them at bedtime often helps reduce the chance of nausea. They should not be taken within 2 hours before or 4 hours after taking acid reducing medications (including all antacids, PPIs like Prilosec, Protonix, Nexium, or Prevacid, or H2 blockers such Pepcid, Tagamet, or Axid). documented in this encounterThe [facility]08-01-2023 History of Present illness Narrative* Kevin Andersen PA-C - 07/02/2023 10:20 AM EDT 87 year old female with c/o here for follow up Tired. Old. Doesn't sleep well. RLS more bothersome Taking ropinerole as directed Elevated sed rate: told by Dr. Muñoz that I should be looking for source No pain in knees, just stiff Has pain in both CMC joints, left hip, left shoulder. No swelling, erythema. Penciling of stools Altered bowel habits Stools are back to normal off iron, took 3-4 days. Generalized anxiety disorder Benzodiazepine dependence (hcc) Anxiety not good. Same pill for [address] De Anda [place] psychiatry Dr. Mckenzie retired. Identifies has been on Klonopin a long time. We discussed tapering but would be challenging. Orthostatic syncope Bppv (benign paroxysmal positional vertigo), unspecified laterality Paroxysmal supraventricular tachycardia (hcc) Gets lightheaded but no syncope. No vertigo Occasionally car sick. Does get some palpitations with anxiety Mild intermittent asthma without complication Has been really good, no issues. No using fluticasone Acquired hypothyroidism Compliant with synthroid as directed AC . 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 Dupree-every 6 months Gout, unspecified late great toe, several episodes Hypothyroidism, unspecified Multinodular goiter Dr Boateng Osteoarthritis of both knees Other and unspecified hyperlipidemia diet therapy as of 03/08 Paroxysmal supraventricular tachycardia (HCC) ablation 01/2002 ( in [place], [facility]), follows with Dr. Moreno (prn only) RLS (restless legs syndrome) Tinnitus, unspecified ear Unspecified constipation PAST SURGICAL HISTORY Procedure Laterality Date APPENDECTOMY ARTHRP KNE CONDYLE&PLATU MEDIAL&LAT COMPARTMENTS 2012 Knee replacement, total bilateral CARPAL TUNNEL 2005 bilateral COLONOSCOPY FLX DX W/COLLJ SPEC WHEN PFRMD 12/14/2002 Colonoscopy COLONOSCOPY FLX DX W/COLLJ SPEC WHEN PFRMD 06/10/2007 COLONOSCOPY FLX DX W/COLLJ SPEC WHEN PFRMD 08/04/2013 Colonoscopy COLONOSCOPY FLX DX W/COLLJ SPEC WHEN PFRMD 10/14/2018 [facility]-Repeat 5 years CORRECT BUNION,SIMPLE left ECHOCARDIOGRAM 10/18/2017 EGD 1985 bleeding ulcer EPS: SVT/VT ABLATION 2001 [facility] ESOPHAGOGASTRODUODENOSCOPY TRANSORAL DIAGNOSTIC 03/24/2018 EGD HERNIA REPAIR HX 09/2020 ventral hernia repair HOLTER 24 HR 10/2017 LOOP RECORDER IMPLANT 01/23/2018 NASAL/SINUS ENDOSCOPY WITH SPHENOIDOTOMY Bilateral 05/15/2019 Dr. Ruffin NASAL/SINUS ENDOSCPY W/MAXILL ANTROSTOMY Bilateral 05/15/2019 Dr. Ruffin NASAL/SINUS ENDOSCPY W/TOTAL ETHMOIDECTOMY Bilateral 05/15/2019 Dr. Ruffin OPEN REPAIR OF ROTATOR CUFF ACUTE 04/2005 Dr. Mejias PAST SURGICAL HISTORY OF 10/1997 partial colectomy ([place], [facility]) PAST SURGICAL HISTORY OF 2011 nerves cut in my back STEREO LOC FOR CORE BRST BX LT 04/24/2010 left STRESS TEST 12/17/2017 TONSILLECTOMY PRIMARY/SECONDARY <AGE 12 Social History Tobacco Use Smoking status: Never Smokeless tobacco: Never Vaping Use Vaping Use: Never used Substance Use Topics Alcohol use: No Drug use: No ACTIVE PROBLEM LIST Generalized Anxiety Disorder Diverticulosis of Large Intestine Disorder of Bone and Cartilage Hypothyroidism Hyperlipidemia Ldl Goal <130 Osteoarthritis of Both Knees Multinodular Goiter History of Knee Replacement, Total Mild Intermittent Asthma Without Complication Paroxysmal Supraventricular Tachycardia (Hcc) Hernia of Anterior 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 Vertigo), Unspecified Laterality Itching Orthostatic Syncope Rls (Restless Legs Syndrome) Asthma Benzodiazepine Dependence (Hcc) Current Outpatient Medications Medication Sig Dispense Refill ferrous sulfate 325 mg (65 mg iron) tablet Take 1 tablet by mouth daily with breakfast. 90 tablet 1 rOPINIRole (REQUIP) 0.5 mg tablet Take 1 tablet by mouth daily at bedtime. 90 tablet 1 levothyroxine (SYNTHROID) 75 mcg tablet Take 75 mcg on empty stomach Thurs & Sun; 50 mcg on an empty stomach all other days nortriptyline (PAMELOR) 10 mg capsule Take 10 mg by mouth. 3 tabs daily at bedtime fluticasone propionate (ARMONAIR DIGIHALER INHALATION) Inhale as instructed. polyethylene glycol 3350 (CLEARLAX ORAL) Take by mouth. (Patient not taking: Reported on 04/27/2023) clonazePAM (KLONOPIN) 0.5 mg tablet Take 0.5 mg by mouth at bedtime as needed. Dr Dupree vit A,C,N-Ribx-Samnkg (PRESERVISION AREDS) [id number],160-113-100 ukih-iy-dcuy tab Take by mouth. 0 ACETAMINOPHEN 500 MG TAB Take one(1) tablet every four(4) to six(6) hours as needed for pain. 0 No current facility-administered medications for this visit. SPIROMETRY Never done SHINGRIX VACCINE(1 of 2) Never done ADVANCE DIRECTIVE DISCUSSION Never done COVID-19 VACCINE(6 - Pfizer series) due on 02/07/2023 EXAM: BP 112/62 Pulse 79 Resp 16 Wt 61.7 kg (136 lb) SpO2 95% BMI 26.18 kg/m Pleasant older womn in no acute distress. Alert and oriented all spheres. Normal affect and cognition. Speech normal. No deficits to learning or comprehension. Skin warm, dry, pink to lips and nailbeds. Normal turgor. Respirations regular and unlabored. HEENT: NCAT. No scleral icterus or conjunctival injection. TM's clear. Nose and oropharynx free from injection or lesion. Oral membranes moist and pink. No cervical lymph nodes. Thyroid non-tender, no masses, or enlargement. Carotids pulses 2+/4+ without bruits. Neck veins flat. Abdomen: active bowel sounds throughout, soft, nontender, no masses or organomegaly. No CVAT. Extrem: no clubbing or cyanosis. Edema: none. Extremities are warm and pink with prompt capillary refill. Arthritic nodules in bilateral fingers. CMC joints bilaterally restricted. Left knee with popliteal swelling, no other swelling either knee. Walks stiffly. ASSESSMENT/PLAN: 1. Pencilling of stools - ICD9: 787.7, ICD10: R19.5 (primary diagnosis) Resolved with stopping iron 2. Altered bowel habits - ICD9: 787.99, ICD10: R19.4 Improved, back to normal 3. Generalized anxiety disorder - ICD9: 300.02, ICD10: F41.1 Following with psych 4. Benzodiazepine dependence (HCC) - ICD9: 304.10, ICD10: F13.20 As above 5. Orthostatic syncope - ICD9: 458.0, ICD10: I95.1 No syncope in last few years. Some lightheadedness. No falls. 6. BPPV (benign paroxysmal positional vertigo), unspecified laterality - ICD9: 386.11, ICD10: H81.10 Occasional brief almost vertigo experiences without loss of balance 7. Paroxysmal supraventricular tachycardia (HCC) - ICD9: 427.0, ICD10: I47.1 Controlled. No recent sx. 8. Mild intermittent asthma without complication - ICD9: 493.90, ICD10: J45.20 - Mild intermittent asthma stable - Continue current medications - Avoidance of triggers recommended 9. Acquired hypothyroidism - ICD9: 244.9, ICD10: E03.9 - Instructed patient on importance of taking on an empty stomach either first thing in the morning or at bedtime. Stable 10. Polyarthralgia - ICD9: 719.49, ICD10: M25.50 Screen borderline/ moderate ESR elevation though sings most consistent with OA, DJD - SED RATE WESTERGREN - COMP METABOLIC PANEL - JUAN J BY IFA WITH REFLEX - URIC ACID BLOOD - C-REACTIVE PROTEIN (CRP) 11. Iron deficiency anemia, unspecified iron deficiency anemia type - ICD9: 280.9, ICD10: D50.9 Recheck of iron - CBC + DIFF - IRON + TIBC - FERRITIN BLD 12. RLS (restless legs syndrome) - ICD9: 333.94, ICD10: G25.81 Continue ropinerole which helps. Encourage dietary iron sources. If iron low consider FeSO4 three days a week or alternative iron options - CBC + DIFF - IRON + TIBC - FERRITIN BLD Follow 3 months or as needed Kevin Andersen PA-C Some of this note may have been copied and pasted for the purpose of history context and comparison. documented in this encounterThe [facility]07-11-[facility]23 Telephone encounter Note * Telephone Encounter - Zulma Benites MA - 06/11/2023 3:53 PM EDT Pt did an enema on Saturday. Has small BM's everyday. Does not have the urge to go, which is concerning her. She will discontinue the iron. She still wants the referral to Dr Tabares. She was told to repeat colonoscopy in 5 years, last one 10/14/18. Referral faxed [place] [id number] Miscellaneous Notes* Telephone Encounter - Zulma Benites MA - 06/11/2023 3:53 PM EDT Pt did an enema on Saturday. Has small BM's everyday. Does not have the urge to go, which is concerning her. She will discontinue the iron. She still wants the referral to Dr Tabares. She was told to repeat colonoscopy in 5 years, last one 10/14/18. Referral faxed * Telephone Encounter - Kevin Andersen PA-C - 06/11/2023 1:25 PM EDT I have received no recent information. Did she do any of the recommended interventions 06/07/2023? What has her bowel pattern been in the last week. How many stools has she had, including little tiny ones? We could consider stopping iron and following levels. Iron constipates. Telephone on 06/10/23 CONSULT TO GENERAL SURGERY Rls (restless legs syndrome) Benzodiazepine dependence (hcc) (primary encounter diagnosis) Pencilling of stools Altered bowel habits The following approved medication requests have been transmitted electronically. Requested Prescriptions Signed Prescriptions Disp Refills ferrous sulfate 325 mg (65 mg iron) tablet 90 tablet 1 Sig: Take 1 tablet by mouth daily with breakfast. Authorizing Provider: Kevin ANDERSEN Ordering User: BRIDGETTE BHARDWAJ rOPINIRole (REQUIP) 0.5 mg tablet 90 tablet 1 Sig: Take 1 tablet by mouth daily at bedtime. Authorizing Provider: Kevin ANDERSEN Ordering User: BRIDGETTE BHARDWAJ PA-C * Telephone Encounter - Sharon Paul RN - 06/11/2023 9:11 AM EDT Patient calls and states that at last appointment provider had discussed with her about seeing Dr. Tabares for her bowel issues. Patient asking if referral can be placed and then faxed to . Please review and advise, Sharon Paul RN * Telephone Encounter - Bridgette Bhardwaj APRN.CNP - 06/10/2023 12:19 PM EDT The following approved medication requests have been transmitted electronically. Requested Prescriptions Pending Prescriptions Disp Refills ferrous sulfate 325 mg (65 mg iron) tablet 90 tablet 1 Sig: Take 1 tablet by mouth daily with breakfast. rOPINIRole (REQUIP) 0.5 mg tablet 90 tablet 1 Sig: Take 1 tablet by mouth daily at bedtime. Bridgette Bhardwaj APRN.RUSTY * Telephone Encounter - Soha Azevedo LPN - 06/10/2023 9:09 AM EDT Pt. would like a referral to Dr. Tabares's office for her bowels that was discussed during office visit. Please call Pt. back wisth information. documented in this encounterThe [facility]07-[facility]23 Telephone encounter Note * Telephone Encounter - Kevin Andersen PA-C - 06/11/2023 1:25 PM EDT I have received no recent information. Did she do any of the recommended interventions 06/07/2023? What has her bowel pattern been in the last week. How many stools has she had, including little tiny ones? We could consider stopping iron and following levels. Iron constipates. Telephone on 06/10/23 CONSULT TO GENERAL SURGERY Rls (restless legs syndrome) Benzodiazepine dependence (hcc) (primary encounter diagnosis) Pencilling of stools Altered bowel habits The following approved medication requests have been transmitted electronically. Requested Prescriptions Signed Prescriptions Disp Refills ferrous sulfate 325 mg (65 mg iron) tablet 90 tablet 1 Sig: Take 1 tablet by mouth daily with breakfast. Authorizing Provider: Keivn ANDERSEN Ordering User: TANNHOF, BRIDGETTE rOPINIRole (REQUIP) 0.5 mg tablet 90 tablet 1 Sig: Take 1 tablet by mouth daily at bedtime. Authorizing Provider: Kevin ANDERSEN Ordering User: BRIDGETTE BHARDWAJ PA-C T [facility] Telephone encounter Note* Telephone Encounter - Sharon Paul RN - 06/11/2023 9:11 AM EDT Patient calls and states that at last appointment provider had discussed with her about seeing Dr. Tabares for her bowel issues. Patient asking if referral can be placed and then faxed to . Please review and advise, Sharon Paul RN T [facility] Telephone encounter Note* Telephone Encounter - Bridgette Bhardwaj APRN.CNP - 06/10/2023 12:19 PM EDT The following approved medication requests have been transmitted electronically. Requested Prescriptions Pending Prescriptions Disp Refills ferrous sulfate 325 mg (65 mg iron) tablet 90 tablet 1 Sig: Take 1 tablet by mouth daily with breakfast. rOPINIRole (REQUIP) 0.5 mg tablet 90 tablet 1 Sig: Take 1 tablet by mouth daily at bedtime. Bridgette Bhardwaj APRN.RUSTY T [facility] Work Phone: 1(101) 920-296207-10-2023 Telephone encounter Note* Telephone Encounter - Soha Azevedo LPN - 06/10/2023 9:09 AM EDT Pt. would like a referral to Dr. Tabares's office for her bowels that was discussed during office visit. Please call Pt. back wisth information. [facility]07-07-2023 Miscellaneous Notes* Telephone Encounter - Cathryn Rodriguez RN - 06/07/2023 4:58 PM EDT Called pt and let her know the below advice and regimens were copied and sent to her through her MyChart. * Telephone Encounter - Precious Stapleton LPN - 06/07/2023 4:55 PM EDT Phoned patient and reviewed the message with her and advised her to write the instructions down. Patient voiced understanding and stated she wrote instructions down and read them back. * Telephone Encounter - Kevin Andersen PA-C - 06/07/2023 4:32 PM EDT My advice remains the same. If she is not bloated, nauseated, or in pain and has a normal appetite,continue current regimen. If she is determined to make herself have a BM she can follow this regimen: Magnesium Citrate 1/2 bottle now and repeat in 8h if no BM If no BM over night, Dulcolax suppository or [place]. If no BM in 8 hours: Fleet's enema. If no BM and unconfortable go to ED. Thanks, Yao Andersen PA-C * Telephone Encounter - Cathryn Rodriguez RN - 06/07/2023 4:13 PM EDT Pt calling in again very concerned about her bowels. States last normal BM was last Sat. Pt denies cramping, pain or bloating. States her abdomen is soft on palpation. Feels slightly nauseated but she feels this is due to her nerves. She is very upset because she has no urge to go, she is eating 3 good meals a day and is wondering where all her stool is going. She is passing gas and burping. States today she had to strain extremely hard to get out some soft brown stool about the size of her finger. She is supposed to be taking fiber twice daily which she has been doing up until todayas she did not take a morning dose because she took Miralax for the first time since Saturday. Re instructed pt several times that she is to continue her fiber both morning and evening and is to take Miralax every other day. Pt is very concerned and upset and wonders if she needs a laxative or something else ordered to get her bowels moving again? * Telephone Encounter - Bart Kyle LPN - 06/03/2023 6:33 PM EDT Left message to return call to office. Bart Kyle LPN * Telephone Encounter - Kevin Andersen PA-C - 06/03/2023 5:51 PM EDT My advice has not changed. See prior message Thanks, Kevin Andersen PA-C * Telephone Encounter - Skylar Spears LPN - 06/03/2023 4:32 PM EDT Pt called back. She received the message left on Her machine. Pt resumed Miralax yesterday and today. And she restarted fiber. Pt has increased her water intake.Pt wondering where the stool may be going since she has only had 2 small pcs come out since last Sat. Last Saturday she had a good BM. She is eating 3 regular meals since last Saturday. Again pt isconcerned with the stool not coming out. Please advise. Skylar Spears LPN documented [facility]The [facility] Miscellaneous Notes* Telephone Encounter - Zulma Benites Ma - 06/03/2023 1:59 PM EDT Detailed message left as advised by pt * Telephone Encounter - Kevin Andersen PA-C - 06/03/2023 1:09 PM EDT She was told to hold ClearLax a day or two to see if stool would stiffen up. I did not tell her to stop fiber but to continue it. Please advise memory and difficulty following instructions is concerning. This was written on her discharge instruction sheet. Please have her resume fiber as previously taking, and Clearlax every other day. Notify if bloating, loss of appetite or increasing pain. Please have her write down and repeat instructions. Thanks, Yao Andersen PA-C * Telephone Encounter - Skylar Spears LPN - 06/03/2023 10:56 AM EDT Pt called in and reports she was seen on 05/28/23. Pt was instructed to stop her Miralax and fiber. Pt has not had a BM since last Saturday05-27-23. Pt reports she may of had a couple small pcs of stool come out. She reports straining but nothing happening. Pt is not having pain, no urgency to go and not feeling full. Pt reports she has been told she has a lazy colon. Pt not sure what to do. Please advise. Skylar Spears LPN documented in [facility]The [facility]06-[facility] Miscellaneous Notes* Telephone Encounter - Cathryn Rodriguez RN - 05/30/2023 11:34 AM EDT Pt returned call and given results of x ray. Pt does not want to schedule 3 month f/u at this time.She will call back or schedule on her MyChart. Cathryn Rodriguez RN * Telephone Encounter - Zulma Benites Ma - 05/30/2023 8:37 AM EDT Left message for patient to return call. Please schedule 40 min f/u Zulma Benites Ma * Telephone Encounter - Zulma Benites Ma - 05/30/2023 8:35 AM EDT Please schedule follow up in 3 months and let her know flatplate abd shows a lot of gas and stool but no signs of obstruction. Thanks, Yao Andersen PA-C documented in this encounterThe [facility]06-27-[facility]23 History of Present illness Narrative* Kaleigh Lamas RT(R) - 05/28/2023 12:30 PM EDT Radiology Service Progress Note PATIENT NAME: Sachi Grace DATE OF SERVICE: May 28, 2023 TIME: 12:26 PM PATIENT IDENTITY VERIFICATION COMPLETED USING TWO (2) IDENTIFIERS: Name and Date of confirmedby patient verbally. FALL SCREENING: Has the patient had 2 falls in the last year or 1 fall with injury or currently using an Ambulatory Assistive Device (Walker, Cane, Wheelchair, Crutches, etc.)? No PATIENT GENDER DATA: Female. status: : No status: NO. PATIENT RELEVANT IMPLANT DATA REVIEWED: Yes RADIOLOGY DEPARTMENT: General X-ray: Exam(s) Completed: Abdomen X-Ray: Abdomen PERIPHERAL IV DATA: Not applicable SIGNED BY: RT Puja(R) May 28, 2023 12:26 PM documented in this encounterThe [facility]06-27-2023 Instructions* Patient Instructions* Kevin Andersen PA-C - 05/28/2023 12:07 PM EDT Hold off on Clear Lax a day or two ands see if there is a change in the stool. documented in this encounterThe [facility]06-27-[facility]23 History of Present illness Narrative* Kevin Andersen PA-C - 05/28/2023 11:40 AM EDT 87 year old female with c/o bowel problems, worried she has diverticulitis. Claims this was found on her last colonoscopy with Dr. Tabares 2017 Hx diverticulitis in 1996 and colon polypps. Some days having pencil sized soft stools about Taking fiber every night and Clearlax in the morning. Was going everyday. Change coming on for several weeks. Hasn't been eating because bowels aren't working, has normal appetite. Feels concerned about eating because bowels BMs are smaller No abdominal pain, bloating, nausea, rectal pain. Strains to empty due to somewhat mushy/ soft texture but has small 1 x3 in formed stools. Has had very similar events in past with same pattern with 03/09/2020 CT abd/pel demonstrating diverticulosis without diverticulitis 10/30/[address] Selam Tabares: - Non-bleeding internal hemorrhoids. - Diverticulosis in the distal descending colon. - Patent end-to-end colo-colonic anastomosis. No specimens taken. 03/08/2023 f/u with cardiology Joby Zhang [facility] States he noted swelling of legs, not found in records in records. Notes identify she continues c/o syncopal events standing in the middle of the night but on my questioning, she admits dizziness but not loss of consciousness, usually getting up at night. No loss of consciousness reported, gets dizzy. Currently doing well. Mentions concern elevated ESR, CRP from outside script- ? endo Sees Dr. Mal Boateng [facility] Latest Ref Rng & Units 05/01/2023 05/22/2023 WBC 3.70 - 11.00 k/uL 5.31 RBC 3.90 - 5.20 m/uL 4.18 Hemoglobin 11.5 - 15.5 g/dL 12.0 Hematocrit 36.0 - 46.0 % 36.4 MCV 80.0 - 100.0 fL 87.1 MCH 26.0 - 34.0 pg 28.7 MCHC 30.5 - 36.0 g/dL 33.0 RDW-CV 11.5 - 15.0 % 15.1 (H) Platelet Count 150 - 400 k/uL 347 MPV 9.0 - 12.7 fL 9.0 Neut% % 62.2 Abs Neut (ANC) 1.45 - 7.50 k/uL 3.30 Lymph% % 13.7 Abs Lymph 1.00 - 4.00 k/uL 0.73 (L) Cloud% % 13.6 Abs Cloud <0.87 k/uL 0.72 Eosin% % 9.2 Abs Eosin <0.46 k/uL 0.49 (H) Baso% % 0.9 Abs Baso <0.11 k/uL 0.05 Immature Gran % % 0.4 IMMATURE GRANS (ABS) <0.10 k/uL <0.03 NRBC /100 WBC 0.0 Absolute nRBC <0.01 k/uL <0.01 DTYPE Auto Protein, Total 6.3 - 8.0 g/dL 6.6 Albumin 3.9 - 4.9 g/dL 3.8 (L) Calcium 8.5 - 10.2 mg/dL 9.0 Bilirubin, Total 0.2 - 1.3 mg/dL 0.5 Alkaline Phosphatase 34 - 123 U/L 106 AST 13 - 35 U/L 16 ALT 7 - 38 U/L 6 (L) Glucose 74 - 99 mg/dL 84 BUN 7 - 21 mg/dL 14 Creatinine 0.58 - 0.96 mg/dL 0.59 Sodium 136 - 144 mmol/L 137 Potassium 3.7 - 5.1 mmol/L 4.4 Chloride 97 - 105 mmol/L 100 CO2 22 - 30 mmol/L 28 Anion Gap 9 - 18 mmol/L 9 eGFR >=60 mL/min/1.73m 87 TSH 0.270 - 4.200 mIU/L 3.390 Free T4 0.9 - 1.7 ng/dL 1.3 Vitamin D 25 Hydroxy 31.0 - 80.0 ng/mL 47.0 CRP <0.9 mg/dL 2.5 (H) WSR 0 - 20 mm/hr 48 (H) HISTORIES FAMILY HISTORY Problem Relation Age of Onset Heart Mother rheumatic; 73 Colon Cancer Father dx'd age 50's Coronary Artery Disease Father age 40s, CABG (among the first done at in [place]) Stroke Sister at 58 of ruptured aneurysm Cancer Brother at 55 (tobacco, agent orange) DVT Sister PAST MEDICAL HISTORY Diagnosis Date Anosmia loss of taste, not smell Asthma moderate persistant Bilateral sensorineural hearing loss Disorder of bone and cartilage, unspecified osteopenia, on actonel (Kilo) Diverticulitis s/p partial colectomy Family history of colon cancer in father Fibromyalgia Generalized anxiety disorder 1994 Dr. Dupree-every 6 months Gout, unspecified late great toe, several episodes Hypothyroidism, unspecified Multinodular goiter Dr Boateng Osteoarthritis of both knees Other and unspecified hyperlipidemia diet therapy as of 03/08 Paroxysmal supraventricular tachycardia (HCC) ablation 01/2002 ( in [place], [facility]), follows with Dr. Moreno (prn only) RLS (restless legs syndrome) Tinnitus, unspecified ear Unspecified constipation PAST SURGICAL HISTORY Procedure Laterality Date APPENDECTOMY ARTHRP KNE CONDYLE&PLATU MEDIAL&LAT COMPARTMENTS 2011 Knee replacement, total bilateral CARPAL TUNNEL 2004 bilateral COLONOSCOPY FLX DX W/COLLJ SPEC WHEN PFRMD 12/14/2002 Colonoscopy COLONOSCOPY FLX DX W/COLLJ SPEC WHEN PFRMD 06/10/2007 COLONOSCOPY FLX DX W/COLLJ SPEC WHEN PFRMD 08/04/2013 Colonoscopy COLONOSCOPY FLX DX W/COLLJ SPEC WHEN PFRMD 10/14/2018 [facility]-Selam Tabares-Repeat 5 years CORRECT BUNION,SIMPLE left ECHOCARDIOGRAM 10/18/2017 EGD 1985 bleeding ulcer EPS: SVT/VT ABLATION 2001 [facility] ESOPHAGOGASTRODUODENOSCOPY TRANSORAL DIAGNOSTIC 03/24/2018 EGD HERNIA REPAIR HX 09/2020 ventral hernia repair HOLTER 24 HR 10/2017 LOOP RECORDER IMPLANT 01/23/2018 NASAL/SINUS ENDOSCOPY WITH SPHENOIDOTOMY Bilateral 05/15/2019 Dr. Ruffin NASAL/SINUS ENDOSCPY W/MAXILL ANTROSTOMY Bilateral 05/15/2019 Dr. Ruffin NASAL/SINUS ENDOSCPY W/TOTAL ETHMOIDECTOMY Bilateral 05/15/2019 Dr. Ruffin OPEN REPAIR OF ROTATOR CUFF ACUTE 04/2005 Dr. Mejias PAST SURGICAL HISTORY OF 10/1997 partial colectomy ([place], [facility]) PAST SURGICAL HISTORY OF 2011 nerves cut in my back STEREO LOC FOR CORE BRST BX LT 04/24/2010 left STRESS TEST 12/17/2017 TONSILLECTOMY PRIMARY/SECONDARY <AGE 12 Social History Tobacco Use Smoking status: Never Smokeless tobacco: Never Vaping Use Vaping Use: Never used Substance Use Topics Alcohol use: No Drug use: No ACTIVE PROBLEM LIST Generalized Anxiety Disorder Diverticulosis of Large Intestine Disorder of Bone and Cartilage Hypothyroidism Hyperlipidemia Ldl Goal <130 Osteoarthritis of Both Knees Multinodular Goiter History of Knee Replacement, Total Mild Intermittent Asthma Without Complication Paroxysmal Supraventricular Tachycardia (Hcc) 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 30 tablet 5 rOPINIRole (REQUIP) 0.5 mg tablet Take 1 tablet by mouth daily at bedtime. 30 tablet 5 fluticasone propionate (ARMONAIR DIGIHALER INHALATION) Inhale as instructed. polyethylene glycol 3350 (CLEARLAX ORAL) Take by mouth. (Patient not taking: Reported on 04/27/2023) clonazePAM (KLONOPIN) 0.5 mg tablet Take 0.5 mg by mouth at bedtime as needed. Dr Dupree nortriptyline (PAMELOR) 25 mg capsule Take 25 mg by mouth daily at bedtime. Taking 30 mg levothyroxine (SYNTHROID) 75 mcg tablet Take 1 tablet by mouth once daily. Take on empty stomach. For Thyroid (Patient taking differently: Take 75 mcg by mouth once daily. Take 75 mcg on empty stomach Thurs & Sun; 50 mcg on an empty stomach all other days) 30 tablet 11 vit A,C,A-Mgfy-Imjprt (PRESERVISION AREDS) 7,160-113-100 dqck-xp-trpt tab Take by mouth. 0 ACETAMINOPHEN 500 MG TAB Take one(1) tablet every four(4) to six(6) hours as needed for pain. 0 No current facility-administered medications for this visit. SPIROMETRY Never done SHINGRIX VACCINE(1 of 2) Never done ADVANCE DIRECTIVE DISCUSSION Never done EXAM: BP 118/72 Pulse 74 Resp 16 Wt 61.7 kg (136 lb) SpO2 98% BMI 26.18 kg/m Pleasant elderly woman in no acute distress. Alert and oriented all spheres. Normal affect and cognition. Speech normal. No deficits to learning or comprehension. Skin warm, dry, pink to lips and nailbeds. Normal turgor. Respirations regular and unlabored. HEENT: NCAT. No scleral icterus or conjunctival injection. TM's clear. Nose and oropharynx free from injection or lesion. Oral membranes moist and pink. No cervical lymph nodes. Thyroid non-tender, no masses, or enlargement. Carotids pulses 2+/4+ without bruits. No JVD with HOB at 30 degrees. Chest is normal shape. Lungs are clear to all heredia with good air exchange through out. HRRR without murmur or gallop. No lifts, heaves, or rubs. Abdomen: active bowel sounds throughout, soft, nontender, no masses or organomegaly. No CVAT. Extrem: no clubbing or cyanosis. Edema: none. Extremities are warm and pink with prompt capillary refill. ASSESSMENT/PLAN: 1. Pencilling of stools - ICD9: 787.7, ICD10: R19.5 (primary diagnosis) Check flatplate abd. Educated on the difference between diverticulitis and diverticulosis. Counseled on patient's concerns regarding her bowel change, withholding food as not a good option. As long as she is not having pain or bloating she should continue to eat normally. Because stools are mushy I would recommend that she hold ClearLax every other day until stools start to firm. She has no current symptoms of diverticulitis of which I reassured her. If she starts to have pain, loss of appetite, fever or chills she is to notify me immediately. - XR ABDOMEN 1V SUPINE 2. Acquired hypothyroidism - ICD9: 244.9, ICD10: E03.9 Updated current medication regimen on review of endocrinology notes. - LEVOTHYROXINE 75 MCG TABLET 3. Elevated sed rate - ICD9: 790.1, ICD10: R70.0 Borderline range, patient has been in this range in the past multiple times, at this point I do notthink it is serious but we will continue to follow. Orders from Ca Andersen, PA-C documented in this encounterThe [facility]06-23-[facility]23 Miscellaneous Notes* Telephone Encounter - Soha Azevedo LPN - 05/24/2023 9:42 AM EDT Pt. calling wanting Lab results done by Ortho. Explained that she should call the provider that ordered tests for results.Pt. will call Ortho. documented in this encounterThe [facility]03-15-2023 Miscellaneous Notes* Telephone Encounter - Bart Kyle LPN - 02/13/2023 2:41 PM EDT Pt notified. She verbalized understanding. Bart Kyle LPN * Telephone Encounter - Kevin Andersen PA-C - 02/13/2023 12:14 PM EDT I think it would be good for cardiology to review for stress test. 2. There are very RARE instances with pamelor with QT prolongation (relaxation phase of heart) which can cause the heart to stop suddenly or go into a dangerous rhythm, unlikely at these low doses. (I believe we reviewed this at her visit). I usually check periodically to see if there is a change in QTc on EKG: she is normal so not likelyto have an issue but we will check periodically. There are also cautions with Pamelor and Klonopin being mixed together with debility. Thanks, Yao Andersen PA-C * Telephone Encounter - Sharon Paul RN - 02/13/2023 10:06 AM EDT Patient calls and states that she did see provider's message in regards to Zio Monitor Patient states that she was reading that if she is on nortriptyline then she should not be taking Zoloft. Patient asking if this is correct or is Zoloft safe to take with nortriptyline? Patient states she thoughtthat provider wanted her to get a stress test done? Patient does have an appointment with [facility] next week. Please review and advise, Sharon Paul RN documented in this encounterThe [facility]02-21-2023 Instructions* Patient Instructions* M Mary Andersen PA-C - 01/22/2023 12:32 PM EST Chest pain: When to seek help -- If you have chest pain that is new, severe, prolonged, or if chest pain causesconcern, call 911 immediately. The emergency medical services (EMS) personnel in your community areprepared to respond rapidly, and will take you to the nearest hospital. For a patient having a heart attack, every minute is important. Remember, the faster you get to a hospital, the sooner you can receive treatment. Do not drive yourself to the hospital and do not ask someone else to drive you. Calling 911 is safer than driving for two reasons: From the moment EMS personnel arrive, they can begin evaluating and treating chest pain. If you drive to the hospital, treatment cannot begin until you arrive in the emergency department. If a dangerous complication of a heart attack (eg, a serious irregular heart rhythm) occurs on the way to the hospital, EMS personnel are trained to treat the problem immediately. While waiting for the squad, rest sitting or laying down and try to remain calm. If you are not allergic: chew 4 Baby Aspirin or 2 adult aspirin. Aspirin has been shown to reduce incidence and severity with heart attacks. Heart Palpitations What are palpitations? Palpitations are an uncomfortable awareness of your heartbeat. You may feel that your heart is beating harder or faster than usual or that it is skipping beats. Palpitations are common and often normal. They are a symptom, not a disease. However, it is important to figure out what is causing them. How do they occur? Palpitations may be brought on by: exercise stress, anxiety, or fear smoking alcohol too much caffeine from coffee, estefania, or tea anemia heart problems, such as mitral valve prolapse a thyroid problem medicines, such as diet pills and decongestants premenstrual syndrome (PMS) a lack of certain vitamins or minerals low blood sugar, or an insulin reaction in diabetics. What are the symptoms? Symptoms may include: a thumping, pounding, or racing feeling in your chest or neck fluttering sensation in your chest feeling of irregular beating or skipped beats. How are they diagnosed? Your healthcare provider will review your symptoms and examine you. You may have an electrocardiogram (ECG) or other tests to help find the cause. You may be given a heart monitor to wear at home. You may have an ultrasound test of the heart called an echocardiogram or an exercise stress test to see if heart problems are causing the palpitations. How are they treated? Treatment of palpitations depends on the cause. Most often, no treatment is needed because the heart is otherwise normal. Drinking less coffee or alcohol or none at all may be all you need to do. Trying to reduce the stress in your life may help. Some medicines can decrease or prevent the palpitations. Talk with your healthcare provider about this. How can I take care of myself? Take the medicine prescribed and follow your healthcare provider's advice for lifestyle changes. Keep a record of when, how often, and for how long you have each episode of palpitations. It is helpful for your provider to know if the palpitations start suddenly or gradually and whether they stopsuddenly or gradually. Note what you are doing and whether you notice any other symptoms when you have palpitations. Don't smoke. Tell your provider if you need help quitting. Don't drink alcohol. Talk with your provider if you have problems with this. If you are overweight, talk to your provider about losing weight. Exercise regularly, according to your provider's advice. Learn to relax. Reduce stress and anxiety in your life. Call your healthcare provider right away if: You have palpitations that last a few hours. They occur often. You also have sweating; shortness of breath; lightheadedness; nausea; vomiting; or pain in the chest, arm, back, or jaw. If the palpitations happen often, particularly if you also have chest pain, breathlessness, or dizziness, you may have another medical problem that your healthcare provider can identify and treat. Published by [employer]. This content is reviewed periodically and is subject to change as new health information becomes available. The information is intended to inform and educate and is not a replacement for medical evaluation, advice, diagnosis or treatment by a healthcare professional. Developed by Leonor Chua MD, for [employer] Copyright 2007 [employer] and/or one of its subsidiaries. All Rights Reserved. Special Instructions: Zoledronic acid: Patient drug information Access [employer] Online for additional drug information, tools, and databases. Copyright [employer]. All rights reserved. Contributor Disclosures (For additional information see Zoledronic acid: Drug information and see Zoledronic acid: Pediatric drug information) You must carefully read the Consumer Information Use and Disclaimer below in order to understand and correctly use this information. Brand Names: Reclast; Zometa [DSC] Brand Names: [place] Aclasta; JAMP-Zoledronic Acid; PMS-Zoledronic Acid [DSC]; TARO-Zoledronic Acid; Zoledronic Acid - Z; Zometa What is this drug used for? It is used to treat high calcium levels in patients with cancer. It is used when treating some cancers. It is used to treat Paget's disease. It is used to prevent or treat soft, brittle bones (osteoporosis). It may be given to you for other reasons. Talk with the doctor. What do I need to tell my doctor BEFORE I take this drug? If you are allergic to this drug; any part of this drug; or any other drugs, foods, or substances. Tell your doctor about the allergy and what signs you had. If you have any of these health problems: Kidney disease, low calcium levels, malabsorption syndrome, or underactive parathyroid gland. If you have had thyroid surgery, parathyroid surgery, or your small bowel removed. If you are taking another drug that has the same drug in it. If you are using another drug like this one. If you are not sure, ask your doctor or pharmacist. If you are or may be . Do not take this drug if you are . If you are breast-feeding. Do not breast-feed while you take this drug. You may also need to avoid breast-feeding for some time after your last dose. Talk with your doctor to see if you need to avoidbreast-feeding after your last dose. This is not a list of all drugs or health problems that interact with this drug. Tell your doctor and pharmacist about all of your drugs (prescription or OTC, natural products, vitamins) and health problems. You must check to make sure that it is safe for you to take this drug with all of your drugs and health problems. Do not start, stop, or change the dose of any drug withoutchecking with your doctor. What are some things I need to know or do while I take this drug? For all uses of this drug: Tell all of your health care providers that you take this drug. This includes your doctors, nurses,pharmacists, and dentists. Worsening of asthma has happened in people taking drugs like this one. Talk with the doctor. This drug may raise the chance of a broken leg. Talk with the doctor. Have blood work checked as you have been told by the doctor. Talk with the doctor. Have a bone density test as you have been told by your doctor. Talk with your doctor. Take calcium and vitamin D as you were told by your doctor. This drug may cause jawbone problems. The risk may be higher with longer use, cancer, dental problems, ill-fitting dentures, anemia, blood clotting problems, or infection. It may also be higher if you have dental work, chemo, radiation, or take other drugs that may cause jawbone problems. Many drugs can do this. Talk with your doctor if any of these apply to you, or if you have questions. Call your doctor right away if you have jaw swelling or pain. Have a dental exam before starting this drug. Take good care of your teeth. See a dentist often. You will need to be sure that you are not dehydrated before getting this drug. Check with your doctor to see if you need to drink extra fluids before getting this drug. If you are 65 or older, use this drug with care. You could have more side effects. This drug may cause fertility problems. This may affect being able to have children. Talk with the doctor. A test may need to be done before you start this drug to show that you are NOT . You may need to use control while taking this drug and for some time after the last dose. Talkwith your doctor about using control. If you get , call your doctor right away. Using this drug for bone health: This drug works best when used with calcium/vitamin D and weight-bearing workouts like walking or PT (physical therapy). Follow the diet and workout plan that your doctor told you about. What are some side effects that I need to call my doctor about right away? WARNING/CAUTION: Even though it may be rare, some people may have very bad and sometimes deadly side effects when taking a drug. Tell your doctor or get medical help right away if you have any of thefollowing signs or symptoms that may be related to a very bad side effect: For all uses of this drug: Signs of an allergic reaction, like rash; hives; itching; red, swollen, blistered, or peeling skin with or without fever; wheezing; tightness in the chest or throat; trouble breathing, swallowing, ortalking; unusual hoarseness; or swelling of the mouth, face, lips, tongue, or throat. Signs of fluid and electrolyte problems like mood changes, confusion, muscle pain or weakness, a heartbeat that does not feel normal, very bad dizziness or passing out, fast heartbeat, more thirst, seizures, feeling very tired or weak, not hungry, unable to pass urine or change in the amount of urine produced, dry mouth, dry eyes, or very bad upset stomach or throwing up. Signs of kidney problems like unable to pass urine, change in how much urine is passed, blood in the urine, or a big weight gain. Very bad bone, joint, or muscle pain. Any new or strange groin, hip, or thigh pain. Shortness of breath. A burning, numbness, or tingling feeling that is not normal. Chest pain. Change in eyesight, eye pain, or very bad eye irritation. Trouble swallowing. Very bad pain when swallowing. Swelling in the arms or legs. Using this drug during cancer treatment: Signs of a urinary tract infection (UTI) like blood in the urine, burning or pain when passing urine, feeling the need to pass urine often or right away, fever, lower stomach pain, or pelvic pain. Fever, chills, or sore throat; any unexplained bruising or bleeding; or feeling very tired or weak. Vaginal itching or discharge. Feeling agitated. Low mood (depression). What are some other side effects of this drug? All drugs may cause side effects. However, many people have no side effects or only have minor sideeffects. Call your doctor or get medical help if any of these side effects or any other side effects bother you or do not go away: For all uses of this drug: Feeling dizzy, tired, or weak. Constipation, diarrhea, stomach pain, upset stomach, or throwing up. Heartburn. Headache. Flu-like signs. Back, bone, joint, muscle, or neck pain. Pain in arms or legs. Using this drug during cancer treatment: Trouble sleeping. Not hungry. Weight loss. Cough. Anxiety. Hair loss. These are not all of the side effects that may occur. If you have questions about side effects, call your doctor. Call your doctor for medical advice about side effects. You may report side effects to your national health agency. How is this drug best taken? Use this drug as ordered by your doctor. Read all information given to you. Follow all instructionsclosely. For all uses of this drug: It is given as an infusion into a vein over a period of time. Drink lots of noncaffeine liquids unless told to drink less liquid by your doctor. Using this drug for bone health: Acetaminophen may be given to lower fever and chills. Drink at least 2 glasses of liquids a few hours before you get this drug. What do I do if I miss a dose? Call your doctor to find out what to do. How do I store and/or throw out this drug? If you need to store this drug at home, talk with your doctor, nurse, or pharmacist about how to store it. General drug facts If your symptoms or health problems do not get better or if they become worse, call your doctor. Do not share your drugs with others and do not take anyone else's drugs. Keep all drugs in a safe place. Keep all drugs out of the reach of children and pets. Throw away unused or drugs. Do not flush down a toilet or pour down a drain unless you are told to do so. Check with your pharmacist if you have questions about the best way to throw out drugs. There may be drug take-back programs in your area. Some drugs may have another patient information leaflet. If you have any questions about this drug,please talk with your doctor, nurse, pharmacist, or other health care provider. If you think there has been an overdose, call your poison control center or get medical care right away. Be ready to tell or show what was taken, how much, and when it happened. Last Reviewed [id number] Consumer Information Use and Disclaimer This generalized information is a limited summary of diagnosis, treatment, and/or medication information. It is not meant to be comprehensive and should be used as a tool to help the user understand and/or assess potential diagnostic and treatment options. It does NOT include all information about conditions, treatments, medications, side effects, or risks that may apply to a specific patient. Itis not intended to be medical advice or a substitute for the medical advice, diagnosis, or treatment of a health care provider based on the health care provider's examination and assessment of a patient's specific and unique circumstances. Patients must speak with a health care provider for complete information about their health, medical questions, and treatment options, including any risks or benefits regarding use of medications. This information does not endorse any treatments or medications as safe, effective, or approved for treating a specific patient. [employer]. and its affiliatesdisclaim any warranty or liability relating to this information or the use thereof. The use of thisinformation is governed by the Terms of Use, available at https://www.woltersSEC Watchuwer.com/en/know/urinctcm-aclkddwkwisro-gvcoa. 2021 [employer]. and its affiliates and/or licensors. All rights reserved. Use of [employer] is subject to the Terms of Use. Topic 35602 Version 160.0 Copyright Clinical Reference Systems 2007 [employer] Copyright 2008 Elsevier Inc. All rights reserved. - www.Phybridge documented in this encounterThe Christ Hospital02-21-[facility]23 History of Present illness Narrative* Kevin Andersen PA-C - 01/22/2023 11:40 AM EST 87 year old female with c/o concern about iron levels. Concerned with palpations dating as far back as 2006 in records. Hx atrial tachycardia s/p ablation [facility] 2001 States was doing okay and the started again about 1 year ago. Diagnosed with iron deficiency anemia in September 2022. Placed on Iron supplements, this helped some with the palpation. About a week ago, palpations got worse again Started to occur all the time. Worse with standing up, walking around. No alleviating factors. (+) Dizziness sometimes, will go away if see sits down and relaxes. (+) SOB, struggles to take a deep breath, worse with movements. Denies chest pain, nausea, vomiting, headaches, new changes in vision. At home this morning blood pressure was 96/66, pulse 78. No falls. Prescribed medications in August 2022 for Anxiety but only took them for 2 days because they cause restless leg syndrome. Component Latest Ref Rng & Units 10/01/2022 11/06/2022 01/08/2023 Iron 41 - 186 ug/dL 36 (L) 46 63 TIBC 232 - 386 ug/dL 262 243 236 Transferrin Saturation 15.0 - 57.0 % 13.7 (L) 18.9 26.7 Ferritin 14.7 - 205.1 ng/mL 87.0 110.0 120.0 HISTORIES FAMILY HISTORY Problem Relation Age of Onset Heart Mother rheumatic; 73 Colon Cancer Father dx'd age 50's Coronary Artery Disease Father age 40s, CABG (among the first done at in [place]) Stroke Sister at 58 of ruptured aneurysm Cancer Brother at 55 (tobacco, agent orange) DVT Sister PAST MEDICAL HISTORY Diagnosis Date Anosmia loss of taste, not smell Asthma moderate persistant Bilateral sensorineural hearing loss Disorder of bone and cartilage, unspecified osteopenia, on actonel ([place]) Diverticulitis s/p partial colectomy Family history of colon cancer in father Fibromyalgia Generalized anxiety disorder 1994 Dr. Dupree-every 6 months Gout, unspecified late great toe, several episodes Hypothyroidism, unspecified Multinodular goiter Dr Boateng Osteoarthritis of both knees Other and unspecified hyperlipidemia diet therapy as of 03/08 Paroxysmal supraventricular tachycardia (HCC) ablation 01/2002 ( in [place], [facility]), follows with Dr. Moreno (prn only) RLS (restless legs syndrome) Tinnitus, unspecified ear Unspecified constipation PAST SURGICAL HISTORY Procedure Laterality Date APPENDECTOMY ARTHRP KNE CONDYLE&PLATU MEDIAL&LAT COMPARTMENTS 2012 Knee replacement, total bilateral CARPAL TUNNEL 2005 bilateral COLONOSCOPY FLX DX W/COLLJ SPEC WHEN PFRMD 12/14/2002 Colonoscopy COLONOSCOPY FLX DX W/COLLJ SPEC WHEN PFRMD 06/10/2007 COLONOSCOPY FLX DX W/COLLJ SPEC WHEN PFRMD 08/04/2013 Colonoscopy COLONOSCOPY FLX DX W/COLLJ SPEC WHEN [facility]FRMD [facility] CORRECT BUNION,SIMPLE left ECHOCARDIOGRAM 10/18/2017 EGD 1985 bleeding ulcer EPS: SVT/VT ABLATION 2001 [facility] ESOPHAGOGASTRODUODENOSCOPY TRANSORAL DIAGNOSTIC 03/24/2018 EGD HERNIA REPAIR HX 09/2020 ventral hernia repair HOLTER 24 HR 10/2017 LOOP RECORDER IMPLANT 01/23/2018 NASAL/SINUS ENDOSCOPY WITH SPHENOIDOTOMY Bilateral 05/15/2019 Dr. Ruffin NASAL/SINUS ENDOSCPY W/MAXILL ANTROSTOMY Bilateral 05/15/2019 Dr. Ruffin NASAL/SINUS ENDOSCPY W/TOTAL ETHMOIDECTOMY Bilateral 05/15/2019 Dr. Ruffin OPEN REPAIR OF ROTATOR CUFF ACUTE 04/2005 Dr. Mejias PAST SURGICAL HISTORY OF 10/1997 partial colectomy ([place], [facility]) PAST SURGICAL HISTORY OF 2011 nerves cut in my back STEREO LOC FOR CORE BRST BX LT 04/24/2010 left STRESS TEST 12/17/2017 TONSILLECTOMY PRIMARY/SECONDARY <AGE 12 Social History Tobacco Use Smoking status: Never Smokeless tobacco: Never Vaping Use Vaping Use: Never used Substance Use Topics Alcohol use: No Drug use: No ACTIVE PROBLEM LIST Generalized Anxiety Disorder Diverticulosis of Large Intestine Disorder of Bone and Cartilage Hypothyroidism Hyperlipidemia Ldl Goal <130 Osteoarthritis of Both Knees Multinodular Goiter History of Knee Replacement, Total Mild Intermittent Asthma Without Complication Paroxysmal Supraventricular Tachycardia (Hcc) Hernia of Anterior 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 Rinse mouth after use. 1 Each 0 ferrous sulfate 325 mg (65 mg iron) tablet Take 1 tablet by mouth daily with breakfast. 30 tablet 5 rOPINIRole (REQUIP) 0.5 mg tablet Take 1 tablet by mouth daily at bedtime. 30 tablet 5 tiZANidine (ZANAFLEX) 4 mg tablet Take 0.5 tablets by mouth every 8 hours as needed (muscle spasms). 15 tablet 1 dilTIAZem ointment 2% (CPD) by RECTAL route twice daily. 30 g 0 fluticasone propionate (ARMONAIR DIGIHALER INHALATION) Inhale as instructed. polyethylene glycol 3350 (CLEARLAX ORAL) Take by mouth. clonazePAM (KLONOPIN) 0.5 mg tablet Take 0.5 mg by mouth at bedtime as needed. Dr Dupree nortriptyline (PAMELOR) 25 mg capsule Take 25 mg by mouth daily at bedtime. levothyroxine (SYNTHROID) 75 mcg tablet Take 1 tablet by mouth once daily. Take on empty stomach. For Thyroid (Patient taking differently: Take 75 mcg by mouth once daily. Take 75 mcg on empty stomach Thurs & Sun; 50 mcg on an empty stomach all other days) 30 tablet 11 vit A,C,T-Evru-Wwqsmq (PRESERVISION AREDS) 7,160-113-100 olfl-gj-nnpf tab Take by mouth. 0 ACETAMINOPHEN 500 MG TAB Take one(1) tablet every four(4) to six(6) hours as needed for pain. 0 No current facility-administered medications for this visit. SPIROMETRY Never done SHINGRIX VACCINE(1 of 2) Never done ADVANCE DIRECTIVE DISCUSSION Never done DEPRESSION ASSESSMENT Never done EXAM: BP 130/70 Pulse 70 Resp 16 Wt 62.1 kg (137 lb) SpO2 94% BMI 26.37 kg/m Pleasant older female in no acute distress. Alert and oriented all spheres. Normal affect and cognition. Speech normal. No deficits to learning or comprehension. Skin warm, dry, pink to lips and nailbeds. Normal turgor. Respirations regular and unlabored. HEENT: NCAT. No scleral icterus or conjunctival injection. TM's clear. Nose and oropharynx free from injection or lesion. Oral membranes moist and pink. No cervical lymph nodes. Thyroid non-tender, no masses, or enlargement. Carotids pulses 2+/4+ without bruits. No JVD with HOB at 30 degrees. Chest is normal shape. Lungs are clear to all heredia with good air exchange through out. HRRR without murmur or gallop. No lifts, heaves, or rubs. Extrem: no clubbing or cyanosis. Edema: None. Extremities are warm and pink with prompt capillary refill. EKG: NSR w/ 1st AVB, normal axis pending j2ee consultant review ASSESSMENT/PLAN: 1. Generalized anxiety disorder - ICD9: 300.02, ICD10: F41.1 (primary diagnosis) Anxious about new medication trials. Reviewed sertraline which I expect to have low risk of RLS. Will start 12.5mg x 1 week and then increase to 25mg daily. Should review with Dr. Dupree, psych who is reported ly retiring but still seeing her. - SERTRALINE 25 MG TABLET 2. Palpitations - ICD9: 785.1, ICD10: R00.2 Mildly symptomatic - ECG COMPLETE - OUTSIDE VENDOR CARDIAC OUTPATIENT EXTENDED RHYTHM RECORDING (WITHOUT TELEMETRY) - CONSULT TO CARDIOLOGY 3. Lightheadedness - ICD9: 780.4, ICD10: R42 - ECG COMPLETE - OUTSIDE VENDOR CARDIAC OUTPATIENT EXTENDED RHYTHM RECORDING (WITHOUT TELEMETRY) - CONSULT TO CARDIOLOGY 4. SOB (shortness of breath) - ICD9: 786.05, ICD10: R06.02 - ECG COMPLETE - OUTSIDE VENDOR CARDIAC OUTPATIENT EXTENDED RHYTHM RECORDING (WITHOUT TELEMETRY) - CONSULT TO CARDIOLOGY No prodrome for CHF or COPD. Kevin Andersen PA-C documented in this encounterThe [facility] Hospital02-07-2023 Miscellaneous Notes* Telephone Encounter - Bridgette Melendez - 01/08/2023 9:05 AM ESTSummary: Bone Density Called PT to schedule bone density, PT did not want to schedule, says she is going to get one done in May at another doctors office. Thanks, GALINA Ewing * Telephone Encounter - Zulma Benites Ma - 01/07/2023 12:52 PM EST Images from the original note were not included. Kevin Andersen PA-C [facility] Ganesh Longoria Please schedule BMD Thanks, Yao Andersen PA-C documented in this encounterThe Christ Hospital02-03-2023 Instructions* Patient Instructions* Kevin Andersen PA-C - 01/04/2023 4:53 PM EST BONE MINERAL DENSITY PATIENT INSTRUCTIONS Bone mineral density testing measures the amount of calcium in certain parts of your bones. This information determines how strong your bones are. The test is used to detect osteoporosis, a disease in which the bone's mineral content and density are low, increasing a person's risk of fractures. Thelumbar spine (lower back) and the hip are the skeletal sites usually examined. For the test, remember that: 1. You cannot take this test if you are . 2. Eat a normal diet on the day of the test. 3. Take your medications as you normally would. 4. DO NOT take calcium supplements (such as Tums) for 24 hours before the test. 5. On the day of the test, leave valuables (jewelry or credit cards) at home. 6. The test should be performed prior to oral, rectal or IV contrast studies, or at least 7 days after any of these studies. For the test, you may be asked to wear a hospital gown. You will lie on your back, on a padded table, in a comfortable position. Generally, you can resume your usual activities immediately. documented in this encounterThe [facility] Hospital02-03-2023 History of Present illness Narrative* Kevin Andersen PA-C - 01/04/2023 10:00 AM EST 87 year old female with c/o here to establish care Current concerns: Increase in restless leg symptoms, asking if we could check her iron levels. Notes heart rate has been elevated more than usual 80-90 without other sx or feeling of ectopy. Saturday 2 days ago awoke with pain in the right foot without swelling or erythema. No injury. Seemsto have improved. Acute midline low back pain without sciatica Current medications: Tylenol 500mg 1 tab every 4-6h prn Tizanidine 4mg 0,5mg q8h prn back spasm Currently doing much better: pain has resolved. 11/13/2022 XR LS spine: No acute fracture seen. There is mild S shaped deformity. There is grade 1 L3 on L4 anterolisthesis. There appears be L1-2, L2-3, L3-4 and L5-S1 disc space narrowing. Questionable coarse trabeculations in L1 and L3 vertebral bodies, not fully characterized. There is mild osteophyte formation, with facet arthrosis. Kissing spine seen on lateral view. The bones are osteopenic. Rectal pain and bleeding Current medications: Diltiazem ointment: Did not use because when she tried to put it on with a rubber glove it would not go into the rectum. She was not aware that she could place this directly on the outside and it would absorb through circulation. Has improved nonetheless, no further bleeding, minimal irritation. States pain is completely resolved in the tailbone area. From last visit: Hard to separate out what patient complaints are but in the end 2 separate issues. Rectal pain over last 2 weeks worsening, in anus but feels with sitting or moving. No blood. Has variable stools hard to mushy. No black or tarry stools, no blood or clots. Uses Miralax and additional fiber. Usually gets plenty of fluids. Tailbone/ low back pain, over last week. Achy, rates 8/10 currently.Low back and butt cheeks hurt since last Saturday. No heavy lifting, strain, or falls noted. Back ache started last Saturday. Tylenol not helping. Non- radiating pain, numbness, tingling into legs. No weakness. Hurts with pressure while sitting. Hard to distinguish from rectal pain. No fever, chills, nausea, vomiting, UTI sx. Feels better if bending forward, as in the grocery with a cart. Taking Tylenol 1 tablet a day for pain with a little help. Moderate persistent asthma without complication COPD Echometer Engineer: Dr. Eliel Garcia Interval history: none No pets, no smokers Current medications: Fluticasone propionate (Armonair digihaler) Fluticasone NS 2 sprays each nostril daily Worsening shortness of breath: no Cough: No. Wheezing: occasional. Smoking: No. Compliant with medications: Yes. Using rescue inhaler: no. Patient notes recent sinus infection is nearly recovered, no significant drainage. Paroxysmal supraventricular tachycardia (hcc) Orthostatic syncope Hyperlipidemia ldl goal <130 Cardiovascular interval hx: Had syncopal event with identified PSVT status post ablation 2001. Looprecorder was inserted, has been stable since. Was following at [facility] 11/06/2022 EKG normal sinus rhythm no ischemic changes 01/10/2021: Last noted remote loop recorder interrogation: No activated events, 2 pauses likely related to under sensed QRS. Average heart rate 70 bpm. 08/22/2020 echocardiogram follow-up MVP, Dr. Jurado: LV size and LV SF WNL, sigmoid septum. EF 65%. No LVDD. No regional wall motion abnormalities. RV normal size and systolic function. LA mildly enlarged. RA WNL, no evidence of ASD. MV with anterior leaflet diffuse mitral valve thickening, mitral valve chordae thickened and/or calcified. Mild mitral valve prolapse, 1+ MVi. TV: Mild diffuse thickening tricuspid valve, 1-2+ TVi, RVSP estimated 39 mmHg. AV trileaflet, mild aortic valve thickening. PV not well visualized, trivial PVi Normal sized aortic root. No pericardial effusion. 08/31/2020 dobutamine stress test echo without contrast, Dr. Jurado: M HR 135 bpm, 87% of predicted, duration 7.58 mm SS, maximum stress heart rate 118. Ejection fraction 60%, peak exercise 75%. Thickening of mcgrath with reduction in left ventricular cavity size, no angina. Not suggestive of ischemia. Did have a follow-up with Dr. Jurado [place] [facility] Current meds: none Use of NTG: N/A Chest pain, arm, jaw pain, neck, or upper back pain suggestive of angina: No. SOB: No Dyspnea with exertion: mild if steps or inclines orthopnea: No Cough : occasional racing or irregular heartbeats: No- doesn't feel when heart is fast. palpitations: No syncopal sx: No Headache: No Unexplainable fatigue No Leg swelling: No Nausea: No diaphoresis: No Heartburn: No Claudication: No Smoking: No Following Low cholesterol, high fiber diet? Does pay attention If on statin: muscle aches? N/A If on statin: GI sx or diarrhea? No Additional history none. Lab review: Component Latest Ref Rng & Units 10/01/2022 11/06/2022 WBC 3.70 - 11.00 k/uL 5.78 5.95 RBC 3.90 - 5.20 m/uL 4.44 4.49 Hemoglobin 11.5 - 15.5 g/dL 12.4 12.8 Hematocrit 36.0 - 46.0 % 39.9 39.5 MCV 80.0 - 100.0 fL 89.9 88.0 MCH 26.0 - 34.0 pg 27.9 28.5 MCHC 30.5 - 36.0 g/dL 31.1 32.4 RDW-CV 11.5 - 15.0 % 15.4 (H) 15.6 (H) Platelet Count 150 - 400 k/uL 372 404 (H) MPV 9.0 - 12.7 fL 9.8 9.6 Neut% % 60.3 66.0 Abs Neut (ANC) 1.45 - 7.50 k/uL 3.48 3.93 Lymph% % 19.2 16.0 Abs Lymph 1.00 - 4.00 k/uL 1.11 0.95 (L) Cloud% % 12.6 11.8 Abs Cloud <0.87 k/uL 0.73 0.70 Eosin% % 6.6 4.9 Abs Eosin <0.46 k/uL 0.38 0.29 Baso% % 1.0 1.0 Abs Baso <0.11 k/uL 0.06 0.06 Immature Gran % % 0.3 0.3 IMMATURE GRANS (ABS) <0.10 k/uL <0.03 <0.03 NRBC /100 WBC 0.0 0.0 Absolute nRBC <0.01 k/uL <0.01 <0.01 DTYPE Auto Auto Nucleated Reds 0 /100 WBC Diff Type Iron 41 - 186 ug/dL 36 (L) 46 TIBC 232 - 386 ug/dL 262 243 Transferrin Saturation 15.0 - 57.0 % 13.7 (L) 18.9 Ferritin 14.7 - 205.1 ng/mL 87.0 110.0 Component Latest Ref Rng & Units 11/01/2020 11/06/2022 Protein, Total 6.3 - 8.0 g/dL 7.3 Albumin 3.9 - 4.9 g/dL 4.1 Calcium 8.5 - 10.2 mg/dL 9.7 9.5 Bilirubin, Total 0.2 - 1.3 mg/dL 0.5 Alkaline Phosphatase 34 - 123 U/L 116 AST 13 - 35 U/L 23 Glucose 74 - 99 mg/dL 73 (L) 73 (L) BUN 7 - 21 mg/dL 13 12 Creatinine 0.58 - 0.96 mg/dL 0.56 (L) 0.58 Sodium 136 - 144 mmol/L 141 140 Potassium 3.7 - 5.1 mmol/L 4.2 4.4 Chloride 97 - 105 mmol/L 101 101 CO2 22 - 30 mmol/L 28 25 Anion Gap 9 - 18 mmol/L 12 14 ALT 7 - 38 U/L 11 eGFR- >60 eGFR-All Other Races . >60 eGFR >=60 mL/min/1.73m 88 Iron deficiency anemia, unspecified iron deficiency anemia type Current medications: Ferrous sulfate 325mg daily As above Acquired hypothyroidism Current medication: Levothyroxine 75mc daily Taking as directed on an empty stomach? Yes. Thyroid pain: No. Mass effect: No. Change in energy level/ fatigue? No. Sleep disturbance ?No. Temperature Intolerance: cold No, hot No. In females, menstrual cycle issues? N/a, If yes: Change in bowel habits? No. If yes: Constipation? No. If yes: Diarrhea? No. If yes: Weight changes?No. Memory issues: no more than expected. Diaphoresis: No. Numbness, tingling none Radiological imaging with contrast dyes within the last 3 months? No. History of radiation exposure to head or neck area? No. Change in hair or skin? No. If yes: Other symptoms: Last 2 Encounter Wt Readings: Date: Wt: 12/25/2022 61.9 kg (136 lb 6.4 oz) 11/13/2022 61.7 kg (136 lb) Last thyroid labs: TSH Date Value 01/01/2023 3.530 mIU/L 11/06/2022 3.090 mIU/L 11/01/2021 2.040 uU/mL 08/30/2021 4.960 uU/mL ) Anxiety with depression Current medications: Pamelor 25mg daily HS Clonazepam 0.5mg as needed HS (Dr. Dupree) Continues with Dr. Dupree Also in [facility] Feels she is stable and controlled. 09/07/22 [facility]/Counseling Dr. Yanely Reddy Depression, major, recurrent, moderate (Discharge Diagnosis) - 09/07/22 Neurological signs (Discharge Diagnosis) - 09/07/22 Generalized anxiety disorder (Discharge Diagnosis) - 09/07/22 Benzodiazepine dependence (Discharge Diagnosis) - 09/07/22 Bppv (benign paroxysmal positional vertigo), unspecified laterality Intermittent, no current sx. 04/07/2009 Dr. Georgette Ferrer, vestibular testing at [facility]: Could not tolerate oculomotor orrotary chair testing, normal caloric testing, almost indiscernible left torsion was seen in the [place] and [place]. No nystagmus with neck torsion test. Positive persistent beating nystagmus head hanging right orientation. Normal caloric testing. Rls (restless legs syndrome) Current medications: Ropinerole 0.5mg daily HS Controlled with medication and iron Bms (burning mouth syndrome) resolved Constipation Current medications: Polyethylene glycol 3350 Has been increasing fiber in diet History of total bilateral knee replacement Disorder of bone and cartilage No DXA scan in file. Patient was treated in the past for imaging results demonstrating osteopenia on Actonel Abdominal wall hernia: Not bothersome 07/18/2020 CT abd/ pel [facility] ED: Constipation pattern, no abdominal disease identified, bilateral small fat-containing inguinal hernias together with small fat-containing hernia upper midline ventral wall HISTORIES FAMILY HISTORY Problem Relation Age of Onset Heart Mother rheumatic; 73 Colon Cancer Father dx'd age 50's Coronary Artery Disease Father age 40s, CABG (among the first done at in [place]) Stroke Sister at 58 of ruptured aneurysm Cancer Brother at 55 (tobacco, agent orange) DVT Sister PAST MEDICAL HISTORY Diagnosis Date Anosmia loss of taste, not smell Asthma moderate persistant Bilateral sensorineural hearing loss Disorder of bone and cartilage, unspecified osteopenia, on actonel ([place]ub[place]) Diverticulitis s/p partial colectomy Family history of colon cancer in father Fibromyalgia Generalized anxiety disorder 1994 Dr. Dupree-every 6 months Gout, unspecified late great toe, several episodes Hypothyroidism, unspecified Multinodular goiter Dr Boateng Osteoarthritis of both knees Other and unspecified hyperlipidemia diet therapy as of 03/08 Paroxysmal supraventricular tachycardia (HCC) ablation 01/2002 ( in [place], [facility]), follows with Dr. Moreno (prn only) RLS (restless legs syndrome) Tinnitus, unspecified ear Unspecified constipation PAST SURGICAL HISTORY Procedure Laterality Date APPENDECTOMY ARTHRP KNE CONDYLE&PLATU MEDIAL&LAT COMPARTMENTS 2012 Knee replacement, total bilateral CARPAL TUNNEL 2005 bilateral COLONOSCOPY FLX DX W/COLLJ SPEC WHEN PFRMD 12/14/2002 Colonoscopy COLONOSCOPY FLX DX W/COLLJ SPEC WHEN PFRMD 06/10/2007 COLONOSCOPY FLX DX W/COLLJ SPEC WHEN PFRMD 08/04/2013 Colonoscopy COLONOSCOPY FLX DX W/COLLJ SPEC WHEN PFRMD 10/14/2018 [facility]-Selam Tabares-Repeat 5 years CORRECT BUNION,SIMPLE left ECHOCARDIOGRAM 10/18/2017 EGD 1985 bleeding ulcer EPS: SVT/VT ABLATION 2001 [facility] ESOPHAGOGASTRODUODENOSCOPY TRANSORAL DIAGNOSTIC 03/24/2018 EGD HERNIA REPAIR HX 09/2020 ventral hernia repair HOLTER 24 HR 10/2017 LOOP RECORDER IMPLANT 01/23/2018 NASAL/SINUS ENDOSCOPY WITH SPHENOIDOTOMY Bilateral 05/15/2019 Dr. Ruffin NASAL/SINUS ENDOSCPY W/MAXILL ANTROSTOMY Bilateral 05/15/2019 Dr. Ruffin NASAL/SINUS ENDOSCPY W/TOTAL ETHMOIDECTOMY Bilateral 05/15/2019 Dr. Ruffin OPEN REPAIR OF ROTATOR CUFF ACUTE 04/2005 Dr. Mejias PAST SURGICAL HISTORY OF 10/1997 partial colectomy ([place], [facility]) PAST SURGICAL HISTORY OF 2011 nerves cut in my back STEREO LOC FOR CORE BRST BX LT 04/24/2010 left STRESS TEST 12/17/2017 TONSILLECTOMY PRIMARY/SECONDARY <AGE 12 Social History Tobacco Use Smoking status: Never Smokeless tobacco: Never Vaping Use Vaping Use: Never used Substance Use Topics Alcohol use: No Drug use: No ACTIVE PROBLEM LIST Generalized Anxiety Disorder Diverticulosis of Large Intestine Disorder of Bone and Cartilage Hypothyroidism Hyperlipidemia Ldl Goal <130 Osteoarthritis of Both Knees Multinodular Goiter History of Knee Replacement, Total Mild Intermittent Asthma Without Complication Paroxysmal Supraventricular Tachycardia (Hcc) Hernia of Anterior 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 Rinse mouth after use. 1 Each 0 ferrous sulfate 325 mg (65 mg iron) tablet Take 1 tablet by mouth daily with breakfast. 30 tablet 5 rOPINIRole (REQUIP) 0.5 mg tablet Take 1 tablet by mouth daily at bedtime. 30 tablet 5 tiZANidine (ZANAFLEX) 4 mg tablet Take 0.5 tablets by mouth every 8 hours as needed (muscle spasms). 15 tablet 1 dilTIAZem ointment 2% (CPD) by RECTAL route twice daily. 30 g 0 fluticasone propionate (ARMONAIR DIGIHALER INHALATION) Inhale as instructed. polyethylene glycol 3350 (CLEARLAX ORAL) Take by mouth. clonazePAM (KLONOPIN) 0.5 mg tablet Take 0.5 mg by mouth at bedtime as needed. Dr Dupree nortriptyline (PAMELOR) 25 mg capsule Take 25 mg by mouth daily at bedtime. levothyroxine (SYNTHROID) 75 mcg tablet Take 1 tablet by mouth once daily. Take on empty stomach. For Thyroid (Patient taking differently: Take 75 mcg by mouth once daily. Take 75 mcg on empty stomach Thurs & Sun; 50 mcg on an empty stomach all other days) 30 tablet 11 vit A,C,P-Cxgl-Cihpbs (PRESERVISION AREDS) 7,160-113-100 ywtq-mc-iniz tab Take by mouth. 0 ACETAMINOPHEN 500 MG TAB Take one(1) tablet every four(4) to six(6) hours as needed for pain. 0 No current facility-administered medications for this visit. SPIROMETRY Never done SHINGRIX VACCINE(1 of 2) Never done ADVANCE DIRECTIVE DISCUSSION Never done DEPRESSION ASSESSMENT Never done EXAM: BP 120/74 Pulse 66 Resp 16 Ht 153.5 cm (5' 0.43) Wt 62.6 kg (138 lb) BMI 26.57 kg/m Pleasant well-appearing older adult woman in no acute distress. Alert and oriented all spheres. Normal affect and cognition. Speech normal. No deficits to learning or comprehension. Skin warm, dry, pink to lips and nailbeds. Normal turgor. Respirations regular and unlabored. HEENT: NCAT. No scleral icterus or conjunctival injection. TM's clear. Nose and oropharynx free from injection or lesion. Oral membranes moist and pink. No cervical lymph nodes. Thyroid non-tender, no masses, or enlargement. Carotids pulses 2+/4+ without bruits. No JVD with HOB at 30 degrees. Chest is normal shape. Lungs are clear to all heredia with good air exchange through out. HRRR without murmur or gallop. No lifts, heaves, or rubs. Abdomen: active bowel sounds throughout, soft, nontender, no masses or organomegaly. No CVAT. Back is nontender, no pain over the coccyx as was certainly evident. Extrem: no clubbing or cyanosis. Edema: none. Extremities are warm and pink with prompt capillary refill. ASSESSMENT/PLAN: 1. Moderate persistent asthma without complication - ICD9: 493.90, ICD10: J45.40 Moderate persistent Asthma stable - Continue current meds - Avoidance of triggers recommended Follows with pulmonology 2. Paroxysmal supraventricular tachycardia (HCC) - ICD9: 427.0, ICD10: I47.1 No recent symptoms. Implanted loop recorder Has had follow-up with Dr. Jurado, [place] [facility], previously at [facility]. 3. Orthostatic syncope - ICD9: 458.0, ICD10: I95.1 Patient states he managing well, monitors fluid and salt intake. 4. Hyperlipidemia LDL goal <130 - ICD9: 272.4, ICD10: E78.5 - good control - Continue current medication. - Encouraged following a low fat, low cholesterol diet. 5. Acute midline low back pain without sciatica - ICD9: 724.2, ICD10: M54.50 Improved 6. Rectal pain - ICD9: 569.42, ICD10: K62.89 Improved, still having some irritation, recommended external use of Cardizem paste which will help to dilate veins for healing. 7. Iron deficiency anemia, unspecified iron deficiency anemia type - ICD9: 280.9, ICD10: D50.9 Currently controlled, will place orders for recheck. 8. Lower respiratory infection - ICD9: 519.8, ICD10: J22 Resolved, no evidence of pneumonia on x-ray. 9. Acquired hypothyroidism - ICD9: 244.9, ICD10: E03.9 - Instructed patient on importance of taking on an empty stomach either first thing in the morning or at bedtime. Stable 10. Anxiety with depression - ICD9: 300.4, ICD10: F41.8 Controlled with current medication, follows with psychiatry 11. BPPV (benign paroxysmal positional vertigo), unspecified laterality - ICD9: 386.11, ICD10: H81.10 Vertigo testing indicates BPPV 12. RLS (restless legs syndrome) - ICD9: 333.94, ICD10: G25.81 Controlled on current ropinirole and iron supplementation, evaluate as above. 13. BMS (burning mouth syndrome) - ICD9: 529.6, ICD10: K14.6 Resolved 14. Hernia of anterior abdominal wall - ICD9: 553.20, ICD10: K43.9 Nonpainful 15. History of total bilateral knee replacement - ICD9: V43.65, ICD10: Z96.653 Stable 16. Asymptomatic menopausal state - ICD9: V49.81, ICD10: Z78.0 Needs to have follow-up for osteoporosis screening. Not sure when treatment stopped but has not been evaluated in several years. - DXA-AXIAL SKELETON Office Visit on 01/04/23 DXA-AXIAL SKELETON CBC + DIFF COMP METABOLIC PANEL MAGNESIUM BLD IRON + TIBC FERRITIN BLD TSH BLD 20 minutes spent in visit, 30 minutes spent in record review, updated problem list, development of problem list, completing documentation. Kevin Andersen PA-C documented in this encounterThe [facility]01-24-[facility]23 History of Present illness Narrative* Kimberly Gómez PA-C - 12/25/2022 2:25 PM EST This note was created using NoteWriter. Subjective Sachi Grace is a 87 year old female. HPI Patient presents with sinus pressure and congestion over the past 2 weeks. She tried a cough medicine and antihistamine zeos-uop-fidwawe without relief. She has had a cough intermittently. No fever. Denies chronic sinusitis. No chest pain or shortness of breath. Denies sick contacts. She does have history of asthma, has not been wheezing with this illness. Review of Systems Constitutional: Negative. HENT: Positive for congestion, postnasal drip, rhinorrhea, sinus pressure and sinus pain. Negative for ear pain and sore throat. Respiratory: Positive for cough. Negative for shortness of breath and wheezing. Cardiovascular: Negative. Gastrointestinal: Negative. Genitourinary: Negative. Musculoskeletal: Negative. All other systems reviewed and are negative. PAST MEDICAL HISTORY Diagnosis Date Anosmia loss of taste, not smell Asthma moderate persistant Bilateral sensorineural hearing loss Disorder of bone and cartilage, unspecified osteopenia, on actonel ([place]) Diverticulitis s/p partial colectomy Family history of colon cancer in father Fibromyalgia Generalized anxiety disorder 1994 Dr. Dupree-every 6 months Gout, unspecified late great toe, several episodes Hypothyroidism, unspecified Multinodular goiter Dr Boateng Osteoarthritis of both knees Other and unspecified hyperlipidemia diet therapy as of 03/08 Paroxysmal supraventricular tachycardia (HCC) ablation 01/2002 ( in [place], [facility]), follows with Dr. Moreno (prn only) RLS (restless legs syndrome) Tinnitus, unspecified ear Unspecified constipation Current Outpatient Medications Medication Sig Dispense Refill ferrous sulfate 325 mg (65 mg iron) tablet Take 1 tablet by mouth daily with breakfast. 30 tablet 5 rOPINIRole (REQUIP) 0.5 mg tablet Take 1 tablet by mouth daily at bedtime. 30 tablet 5 tiZANidine (ZANAFLEX) 4 mg tablet Take 0.5 tablets by mouth every 8 hours as needed (muscle spasms). 15 tablet 1 dilTIAZem ointment 2% (CPD) by RECTAL route twice daily. 30 g 0 fluticasone propionate (ARMONAIR DIGIHALER INHALATION) Inhale as instructed. polyethylene glycol 3350 (CLEARLAX ORAL) Take by mouth. clonazePAM (KLONOPIN) 0.5 mg tablet Take 0.5 mg by mouth at bedtime as needed. Dr Dupree nortriptyline (PAMELOR) 25 mg capsule Take 25 mg by mouth daily at bedtime. levothyroxine (SYNTHROID) 75 mcg tablet Take 1 tablet by mouth once daily. Take on empty stomach. For Thyroid (Patient taking differently: Take 75 mcg by mouth once daily. Take 75 mcg on empty stomach Thurs & Sun; 50 mcg on an empty stomach all other days) 30 tablet 11 vit A,C,H-Iclx-Unyjan (PRESERVISION AREDS) 7,160-113-100 qptm-sc-eprt tab Take by mouth. 0 ACETAMINOPHEN 500 MG TAB Take one(1) tablet every four(4) to six(6) hours as needed for pain. 0 amoxicillin-clavulanic acid (AUGMENTIN) 875-125 mg per tablet Take 1 tablet by mouth twice daily for 7 days. 14 tablet 0 fluticasone (FLONASE) 50 mcg/actuation nasal spray Use 2 Sprays in each nostril once daily. Rinse mouth after use. 1 Each 0 No current facility-administered medications for this visit. PAST SURGICAL HISTORY Procedure Laterality Date APPENDECTOMY ARTHRP KNE CONDYLE&PLATU MEDIAL&LAT COMPARTMENTS 2011 Knee replacement, total bilateral CARPAL TUNNEL 2005 bilateral COLONOSCOPY FLX DX W/COLLJ SPEC WHEN PFRMD 12/14/2002 Colonoscopy COLONOSCOPY FLX DX W/COLLJ SPEC WHEN PFRMD 06/10/2007 COLONOSCOPY FLX DX W/COLLJ SPEC WHEN PFRMD 08/04/2013 Colonoscopy COLONOSCOPY FLX DX W/COLLJ SPEC WHEN [facility]FRMD [facility] CORRECT BUNION,SIMPLE left ECHOCARDIOGRAM 10/18/2017 EGD 1985 bleeding ulcer EPS: SVT/VT ABLATION 2001 [facility] ESOPHAGOGASTRODUODENOSCOPY TRANSORAL DIAGNOSTIC 03/24/2018 EGD HERNIA REPAIR HX 09/2020 ventral hernia repair HOLTER 24 HR 10/2017 LOOP RECORDER IMPLANT 01/23/2018 NASAL/SINUS ENDOSCOPY WITH SPHENOIDOTOMY Bilateral 05/15/2019 Dr. Ruffin NASAL/SINUS ENDOSCPY W/MAXILL ANTROSTOMY Bilateral 05/15/2019 Dr. Ruffin NASAL/SINUS ENDOSCPY W/TOTAL ETHMOIDECTOMY Bilateral 05/15/2019 Dr. Ruffin OPEN REPAIR OF ROTATOR CUFF ACUTE 04/2005 Dr. Mejias PAST SURGICAL HISTORY OF 10/1997 partial colectomy ([place], [facility]) PAST SURGICAL HISTORY OF 2011 nerves cut in my back STEREO LOC FOR CORE BRST BX LT 04/24/2010 left STRESS TEST 12/17/2017 TONSILLECTOMY PRIMARY/SECONDARY <AGE 12 FAMILY HISTORY Problem Relation Age of Onset Heart Mother rheumatic; 73 Colon Cancer Father dx'd age 50's Coronary Artery Disease Father age 40s, CABG (among the first done at in [place]) Stroke Sister at 58 of ruptured aneurysm Cancer Brother at 55 (tobacco, agent orange) DVT Sister Social History Tobacco Use Smoking status: Never Smokeless tobacco: Never Vaping Use Vaping Use: Never used Substance Use Topics Alcohol use: No Drug use: No Objective BP 134/78 Pulse 83 Temp 36.6 C (97.8 F) (Tympanic) Resp 18 Wt 61.9 kg (136 lb 6.4 oz) SpO2 97% BMI 26.64 kg/m Physical Exam Vitals reviewed. Constitutional: Appearance: Normal appearance. HENT: Head: Normocephalic and atraumatic. Right Ear: Tympanic membrane, ear canal and external ear normal. Left Ear: Tympanic membrane, ear canal and external ear normal. Nose: Congestion present. Right Sinus: Frontal sinus tenderness present. No maxillary sinus tenderness. Left Sinus: Frontal sinus tenderness present. No maxillary sinus tenderness. Mouth/Throat: Mouth: Mucous membranes are moist. Pharynx: Oropharynx is clear. Cardiovascular: Rate and Rhythm: Normal rate and regular rhythm. Heart sounds: Normal heart sounds. Pulmonary: Effort: Pulmonary effort is normal. Breath sounds: Normal breath sounds. Musculoskeletal: Cervical back: Neck supple. Skin: General: Skin is warm and dry. Findings: No rash. Neurological: General: No focal deficit present. Mental Status: She is alert. Assessment and Plan ASSESSMENT/PLAN: 1. Bacterial sinusitis - ICD9: 473.9, 041.9, ICD10: J32.9, B96.89 - Will begin treatment with Augmentin 875 mg PO BID for 7 days- normal kidney function reviewed latest labs - Supportive care with plenty of fluids, rest, and analgesia prn. - Follow up in 3-5 days if symptoms persist or worsen. Kimberly Gómez PA-C documented in this encounterThe [facility]01-12-2023 Miscellaneous Notes* Telephone Encounter - Zulma Benites Ma - 12/13/2022 11:18 AM EST Patient has been identified by name and date of : Yes Requested Prescriptions Pending Prescriptions Disp Refills ferrous sulfate 325 mg (65 mg iron) tablet 30 tablet 1 Sig: Take 1 tablet by mouth daily with breakfast. rOPINIRole (REQUIP) 0.5 mg tablet 30 tablet 2 Sig: Take 1 tablet by mouth daily at bedtime. RX INSTRUCTIONS: Patient aware RX will be sent to pharmacy. No need to notify patient. Zulma Benites Ma * Telephone Encounter - Carol Lazar Pss - 12/13/2022 10:58 AM EST Patient has been identified by name and date of : Yes Last office visit in this department: 11/13/2022 RX INSTRUCTIONS: Patient aware RX will be sent to pharmacy. No need to notify patient. Patient requesting 90 day supply Patient phones requesting refills as follows: Requested Prescriptions Pending Prescriptions Disp Refills ferrous sulfate 325 mg (65 mg iron) tablet 30 tablet 1 Sig: Take 1 tablet by mouth daily with breakfast. rOPINIRole (REQUIP) 0.5 mg tablet 30 tablet 2 Sig: Take 1 tablet by mouth daily at bedtime. Please review and advise. Carol Lazar Pss documented in this encounterThe [facility] Hospital12-19-2022 Miscellaneous Notes* Telephone Encounter - Arin Lewis LPN - 11/19/2022 8:41 AM EST Patient returned call and went over results, notes from Yao GARCIA with understanding. Patient said she will discuss further at her appt in Jan. * Telephone Encounter - Halima Diaz RN - 11/19/2022 8:36 AM EST Images from the original note were not included. Message left for patient to call PCP office for results below. Halima Diaz RN Result Notes M Mary Andersen PA-C 11/17/2022 8:30 AM EST Please advise x-ray of spine demonstrates moderate degenerative disc changes and arthritis with spurring and thickening of facets. Has 1 particular area where 1 vertebrae is kissing another meaningthat there is no joint space. Bones are osteoporotic. I would recommend that we check a bone density study, and consider treatment to prevent fracture inthe future. We can discuss this at our next visit or sooner if she wants to make an appointment. Yao Bradley PA-C documented in this encounterThe Christ Hospital12-13-2022 Miscellaneous Notes* Telephone Encounter - Zulma Benites Ma - 11/13/2022 5:12 PM EST Detailed message left for pt * Telephone Encounter - Kevin Andersen PA-C - 11/13/2022 5:02 PM EST Sorry, I remembered incorrectly. Will send to [facility] pharmacy The following approved medication requests have been transmitted electronically. Requested Prescriptions Signed Prescriptions Disp Refills dilTIAZem ointment 2% (CPD) 30 g 0 Sig: by RECTAL route twice daily. Authorizing Provider: Kevin ANDERSEN PA-C Thanks, Yao Andersen PA-C * Telephone Encounter - Anali Ace LPN - 11/13/2022 4:52 PM EST Ryan with [facility] calls to report diltiazem ointment 2% appears to be a compound rx and they do not do those. Ryan reports Moe at [facility] does compound rx and it could be sent there otherwisea different medication will need to be ordered. Anali Ace LPN documented in this encounterThe Christ Hospital12-13-2022 History of Present illness Narrative* Kaleigh Lamas, RT(R) - 11/13/2022 4:30 PM EST Radiology Service Progress Note PATIENT NAME: Sachi Grace DATE OF SERVICE: November 13, 2022 TIME: 4:24 PM PATIENT IDENTITY VERIFICATION COMPLETED USING TWO (2) IDENTIFIERS: Name and Date of confirmedby patient verbally. FALL SCREENING: Has the patient had 2 falls in the last year or 1 fall with injury or currently using an Ambulatory Assistive Device (Walker, Cane, Wheelchair, Crutches, etc.)? No PATIENT GENDER DATA: Female. status: : No status: NO. PATIENT RELEVANT IMPLANT DATA REVIEWED: Yes RADIOLOGY DEPARTMENT: General X-ray: Exam(s) Completed: Spine X-Ray(s): Lumbar AP / LAT / L5-S1 PERIPHERAL IV DATA: Not applicable SIGNED BY: RT Puja(R) November 13, 2022 4:24 PM documented in this encounterThe Christ Hospital12-13-2022 Instructions* Patient Instructions* Kevin Andersen PA-C - 11/13/2022 4:15 PM EST Images from the original note were not included. Try to avoid activities which increase pain. Position for comfort with pillows under or between legs to decrease stress on low back and hip when in bed. Sleeping conditions are very important to backhealth. You need to sleep on a surface that supports your hips in a neutral position. Sagging in the hip or shoulder areas will contribute to muscle irritation. Using a low footstool when sitting upright may also reduce low back pain. Try to arrange seating toallow support in the area where your back curves, especially while watching TV or playing video games. Sitting or standing with a hunched posture will cause or aggravate muscle pain in the neck and low back. Ice or moist heat or both may help with pain and stiffness. Apply for 10-15min as needed. Zanaflex is a muscle relaxer which can cause drowsiness and may be habit forming if used regularly for extended periods. You should not drink alcohol, drive, or operate dangerous machinery while taking this medication. Piriforimis stretches per handout. [facility] Anal fissure Definition An anal fissure is a small split or tear in the thin moist tissue (mucosa) lining the lower rectum (anus). Causes Anal fissures are extremely common in young infants but may occur at any age. Studies suggest 80% of infants will have had an anal fissure by the end of the first year. The rate of anal fissures decreases rapidly with age. Fissures are much less common among school-aged children than infants. In adults, fissures may be caused by constipation, the passing of large, hard stools, or by prolonged diarrhea. In older adults, anal fissures may be caused by decreased blood flow to the area. Anal fissures are also common in women after childbirth and persons with Crohn's disease. Symptoms Anal fissures may cause painful bowel movements and bleeding. There may be blood on the outside of the stool or on the toilet tissue (or baby wipes) following a bowel movement. Other symptoms may include: A crack in the skin that can be seen when the area is stretched slightly (the fissure is almost always in the middle) Constipation Exams and Tests The health care provider will perform a rectal exam and look at a sample of the rectal (anal) tissue. Treatment Most fissures heal on their own and do not require treatment, aside from good diaper hygiene in babies. However, some fissures may require treatment. The following home care methods usually heal most anal fissures. Cleansing more gently Diet changes -- eating more bulk, substances that absorb water while in the intestinal tract Muscle relaxants applied to the skin Numbing cream, if pain interferes with normal bowel movement Petroleum jelly applied to the area Sitz bath Stool softeners If the anal fissues do not go away with home care methods, treatment may involve: Botox injections into muscle in the anus (anal sphincter) Minor surgery to relax the anal muscle [place] (Prognosis) Anal fissures generally heal quickly without further problems. However, people who develop fissuresare more likely to have them in the future. Possible Complications Occasionally, a fissure becomes chronic and will not heal. Chronic fissures may require minor surgery to relax the sphincter. When to Contact a Medical Professional Call your health care provider if symptoms associated with anal fissure are present, or if the fissure does not heal appropriately with treatment. Prevention To prevent anal fissures in infants, be sure to change diapers frequently. To prevent fissures at any age: Keep the anal area dry Wipe with soft materials or a moistened cloth or cotton pad Promptly treat any constipation or diarrhea Avoid irritating the rectum References Marry G. Anal fissure. In: Mendoza FF, ed. Mendoza's Clinical Advisor 2008: Instant Diagnosis and Treatment. 1st ed. [facility]: Zi; 2007. Review Date: 06/17/2008 Reviewed By: Estrellita Irvin MD, Department of Gastroenterology, [facility], [place], [place]. Review provided by [employer] Also reviewed by Leeroy Slade MD, [facility], [employer], [employer] The information provided herein should not be used during any medical emergency or for the diagnosis or treatment of any medical condition. A licensed medical professional should be consulted for diagnosis and treatment of any and all medical conditions. Call 911 for all medical emergencies. Links to other sites are provided for information only -- they do not constitute endorsements of those other sites. 1996- 2009 [employer] Inc[employer] Any duplication or distribution of the information contained herein is strictly prohibited. Special Instructions: Murphy urbina Copyright [employer] 2009 [employer]. Copyright 2010 [employer] All rights reserved. - [email or web address].[employer] documented in this encounterThe Christ Hospital12-13-2022 History of Present illness Narrative* Kevin Andersen PA-C - 11/13/2022 3:42 PM EST 87 year old female with c/o pain in rectum but feels on the outside. Over about 2 weeks, progressively worse. Hard to separate out what patient complaints are but in the end 2 separate issues. Rectal pain over last 2 weeks worsening, in anus but feels with sitting or moving. No blood. Has variable stools hard to mushy. No black or tarry stools, no blood or clots. Uses Miralax and additional fiber. Usually gets plenty of fluids. Tailbone/ low back pain, over last week. Achy, rates 8/10 currently.Low back and butt cheeks hurt since last Saturday. No heavy lifting, strain, or falls noted. Back ache started last Saturday. Tylenol not helping. Non- radiating pain, numbness, tingling into legs. No weakness. Hurts with pressure while sitting. Hard to distinguish from rectal pain. No fever, chills, nausea, vomiting, UTI sx. Feels better if bending forward, as in the grocery with a cart. Taking Tylenol 1 tablet a day for pain with a little help. 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 Dupree-every 6 months Gout, unspecified late great toe, several episodes Hypothyroidism, unspecified Multinodular goiter Dr Boateng Osteoarthritis of both knees Other and unspecified hyperlipidemia diet therapy as of 03/08 Paroxysmal supraventricular tachycardia (HCC) ablation 01/2002 ( in [place], [facility]), follows with Dr. Moreno (prn only) RLS (restless legs syndrome) Tinnitus, unspecified ear Unspecified constipation PAST SURGICAL HISTORY Procedure Laterality Date APPENDECTOMY ARTHRP KNE CONDYLE&PLATU MEDIAL&LAT COMPARTMENTS 2012 Knee replacement, total bilateral CARPAL TUNNEL 2005 bilateral COLONOSCOPY FLX DX W/COLLJ SPEC WHEN PFRMD 12/14/2002 Colonoscopy COLONOSCOPY FLX DX W/COLLJ SPEC WHEN PFRMD 06/10/2007 COLONOSCOPY FLX DX W/COLLJ SPEC WHEN PFRMD 08/04/2013 Colonoscopy COLONOSCOPY FLX DX W/COLLJ SPEC WHEN PFRMD 10/14/2018 [facility] Tabares-Repeat 5 years CORRECT BUNION,SIMPLE left ECHOCARDIOGRAM 10/18/2017 EGD 1985 bleeding ulcer EPS: SVT/VT ABLATION 2001 [facility] ESOPHAGOGASTRODUODENOSCOPY TRANSORAL DIAGNOSTIC 03/24/2018 EGD HERNIA REPAIR HX 09/2020 ventral hernia repair HOLTER 24 HR 10/2017 LOOP RECORDER IMPLANT 01/23/2018 NASAL/SINUS ENDOSCOPY WITH SPHENOIDOTOMY Bilateral 05/15/2019 Dr. Ruffin NASAL/SINUS ENDOSCPY W/MAXILL ANTROSTOMY Bilateral 05/15/2019 Dr. Ruffin NASAL/SINUS ENDOSCPY W/TOTAL ETHMOIDECTOMY Bilateral 05/15/2019 Dr. Ruffin OPEN REPAIR OF ROTATOR CUFF ACUTE 04/2005 Dr. Mejias PAST SURGICAL HISTORY OF 10/1997 partial colectomy ([place], [facility]) PAST SURGICAL HISTORY OF 2011 nerves cut in my back STEREO LOC FOR CORE BRST BX LT 04/24/2010 left STRESS TEST 12/17/2017 TONSILLECTOMY PRIMARY/SECONDARY <AGE 12 Social History Tobacco Use Smoking status: Never Smokeless tobacco: Never Vaping Use Vaping Use: Never used Substance Use Topics Alcohol use: No Drug use: No ACTIVE PROBLEM LIST Generalized Anxiety Disorder Diverticulosis of Large Intestine Disorder of Bone and Cartilage Hypothyroidism Hyperlipidemia Ldl Goal <130 Osteoarthritis of Both Knees Multinodular Goiter History of Knee Replacement, Total Mild Intermittent Asthma Without Complication Paroxysmal Supraventricular Tachycardia (Hcc) Hernia of Anterior 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 15 g 1 fluticasone propionate (ARMONAIR DIGIHALER INHALATION) Inhale as instructed. ferrous sulfate 325 mg (65 mg iron) tablet Take 1 tablet by mouth daily with breakfast. 30 tablet 1 rOPINIRole (REQUIP) 0.5 mg tablet Take 1 tablet by mouth daily at bedtime. 30 tablet 2 polyethylene glycol 3350 (CLEARLAX ORAL) Take by mouth. clonazePAM (KLONOPIN) 0.5 mg tablet Take 0.5 mg by mouth at bedtime as needed. Dr Dupree nortriptyline (PAMELOR) 25 mg capsule Take 25 mg by mouth daily at bedtime. levothyroxine (SYNTHROID) 75 mcg tablet Take 1 tablet by mouth once daily. Take on empty stomach. For Thyroid (Patient taking differently: Take 75 mcg by mouth once daily. Take 75 mcg on empty stomach Thurs & Sun; 50 mcg on an empty stomach all other days) 30 tablet 11 vit A,C,Z-Xapz-Swtjee (PRESERVISION AREDS) 7,160-113-100 pczf-mz-fnwu tab Take by mouth. 0 ACETAMINOPHEN 500 MG TAB Take one(1) tablet every four(4) to six(6) hours as needed for pain. 0 No current facility-administered medications for this visit. SPIROMETRY Never done SHINGRIX VACCINE(1 of 2) Never done ADVANCE DIRECTIVE DISCUSSION Never done DEPRESSION ASSESSMENT Never done EXAM: BP 130/82 Pulse 81 Temp 36.7 C (98 F) Ht 152.4 cm (5') Wt 61.7 kg (136 lb) SpO2 97% BMI26.56 kg/m Pleasant well appearing older woman in no acute distress. Alert and oriented all spheres. Normal affect and cognition. Speech normal. No deficits to learning or comprehension. Skin warm, dry, pink to lips and nailbeds. Normal turgor. Respirations regular and unlabored. Chest is normal shape. Lungs are clear to all heredia with good air exchange through out. HRRR without murmur or gallop. No lifts, heaves, or rubs. Spine non-tender over midline. + tenderness in piriformis trigger points bilaterally. Extrem: no clubbing or cyanosis. Edema: none. Extremities are warm and pink with prompt capillary refill. DTRs 1/4+ bilaterally knee jerk and Achilles. SLR easily to 90 degrees bilaterally. No pain with internal or external ROM hips. Rectal exam chaperoned: normal tone, tender fissure at 6:00 in lithotomy view. No other masses. Hemaprompt negative with QC checked ASSESSMENT/PLAN: 1. Acute midline low back pain without sciatica - ICD9: 724.2, ICD10: M54.50 (primary diagnosis) Suspect DDD, piriformis strain Recommend tylenol Arthrtitis maximum dosing Cautious use Zanaflex 2-4mg q8h prn Ice/ moist heat, lineaments, OTC analgesics as needed. Stretching and posture reviewed. Handout on seated piriformis stretching - XR LUMBAR GENERAL 3V AP/LAT/L5-S1 2. Rectal pain - ICD9: 569.42, ICD10: K62.89 Suspect fissure. Reviewed healthy bowel habits, use of wet wipes, blotting not wiping. - DILTIAZEM 2% OINTMENT (CPD) - HEMOCCULT SINGLE B/O F/u as needed Kevin Andersen PA-C documented in [facility] encounterThe [facility]12-[facility]22 Miscellaneous Notes* Telephone Encounter - Zulma Benites Ma - 11/09/2022 5:23 PM EST Patient notified, appt scheduled * Telephone Encounter - Kevin Andersen PA-C - 11/09/2022 5:13 PM EST My notes indicated that it was on waking and quickly went away with getting up and moving. Will need to examine if sx are changing. The following approved medication requests have been transmitted electronically. Requested Prescriptions Signed Prescriptions Disp Refills hydrocortisone (ANUSOL-HC) 2.5 % rectal cream 15 g 1 Sig: by RECTAL route twice daily. Authorizing Provider: Kevin ANDERSEN PA-C * Telephone Encounter - Halima Diaz RN - 11/09/2022 9:41 AM EST Patient calling and states she saw Yao Andersen on 11/06/22 and informed him that she was experiencing rectal pain. States she is having more frequent rectal pain now-almost constantly, and it is a dull pain. Not severe. Also states she began with low back pain at but does not have it now-states it comes and goes. States her back is painful when sitting in a car. Denies abdominal pain or changes in bowels. Appetite good. Has not taken any OTC medications. Please advise patient. Thank you. documented in this encounterThe [facility]12-09-2022 Miscellaneous Notes* Telephone Encounter - Halima Diaz RN - 11/09/2022 9:40 AM EST Patient returned call and given provider's message below. Danica Diaz RN * Telephone Encounter - Zulma Benites Ma - 11/08/2022 4:37 PM EST Left message for patient to return call. Zulma Benites Ma * Telephone Encounter - Kevin Andersen PA-C - 11/08/2022 4:00 PM EST Let her know this is unlikely to raise heart rate or cause palpitations. Thanks, Yao Andersen PA-C * Telephone Encounter - Sharon Paul RN - 11/07/2022 9:27 AM EST Patient calls and states that the inhaler that she is on is [employer] Digihaler. Sharon Paul RN documented in this encounterThe [facility]12-06-2022 History of Present illness Narrative* Kevin Andersen PA-C - 11/06/2022 11:40 AM EST 87 year old female with c/o here to discuss iron levels, RLS which are worsening. Rapid heart beat and SOB started again in Over last week No trouble sleeping Wakes up and heart starts pounding. Let's up awhile is she's up and doing something. No falls or syncopal episodes No chest pain. Not lightheaded or dizzy. No stomach issues. Takes fiber supplement at night. Rectum hurts on waking until up and walking and then improves. Stools are little and odd shaped sometimes but othertimes normal. No black or tarry, no blood No rectal or urinary incontinence. Walks 3 miles everyday. 10/01/2022 CXR: WNL Component Latest Ref Rng & Units 08/14/2022 10/01/2022 10/05/2022 WBC 3.70 - 11.00 k/uL 5.68 5.78 RBC 3.90 - 5.20 m/uL 4.34 4.44 Hemoglobin 11.5 - 15.5 g/dL 12.3 12.4 Hematocrit 36.0 - 46.0 % 37.5 39.9 MCV 80.0 - 100.0 fL 86.4 89.9 MCH 26.0 - 34.0 pg 28.3 27.9 MCHC 30.5 - 36.0 g/dL 32.8 31.1 RDW-CV 11.5 - 15.0 % 15.5 (H) 15.4 (H) Platelet Count 150 - 400 k/uL 344 372 MPV 9.0 - 12.7 fL 9.2 9.8 Neut% % 61.7 60.3 Abs Neut (ANC) 1.45 - 7.50 k/uL 3.51 3.48 Lymph% % 16.2 19.2 Abs Lymph 1.00 - 4.00 k/uL 0.92 (L) 1.11 Cloud% % 13.6 12.6 Abs Cloud <0.87 k/uL 0.77 0.73 Eosin% % 7.2 6.6 Abs Eosin <0.46 k/uL 0.41 0.38 Baso% % 1.1 1.0 Abs Baso <0.11 k/uL 0.06 0.06 Immature Gran % % 0.2 0.3 IMMATURE GRANS (ABS) <0.10 k/uL <0.03 <0.03 NRBC /100 WBC 0.0 0.0 Absolute nRBC <0.01 k/uL <0.01 <0.01 DTYPE Auto Auto Iron 41 - 186 ug/dL 32 (L) 36 (L) TIBC 232 - 386 ug/dL 257 262 Transferrin Saturation 15.0 - 57.0 % 12.5 (L) 13.7 (L) Ferritin 14.7 - 205.1 ng/mL 87.0 Occult Blood, Stool Negative Negative HISTORIES FAMILY HISTORY Problem Relation Age of Onset Heart Mother rheumatic; 73 Colon Cancer Father dx'd age 50's Coronary Artery Disease Father age 40s, CABG (among the first done at in [place]) Stroke Sister at 58 of ruptured aneurysm Cancer Brother at 55 (tobacco, agent orange) DVT Sister PAST MEDICAL HISTORY Diagnosis Date Anosmia loss of taste, not smell Asthma moderate persistant Bilateral sensorineural hearing loss Disorder of bone and cartilage, unspecified osteopenia, on actonel (Kilo) Diverticulitis s/p partial colectomy Family history of colon cancer in father Fibromyalgia Generalized anxiety disorder 1994 Dr. Dupree-every 6 months Gout, unspecified late great toe, several episodes Hypothyroidism, unspecified Multinodular goiter Dr Boateng Osteoarthritis of both knees Other and unspecified hyperlipidemia diet therapy as of 03/08 Paroxysmal supraventricular tachycardia (HCC) ablation 01/2002 ( in [place], [facility]), follows with Dr. Moreno (prn only) RLS (restless legs syndrome) Tinnitus, unspecified ear Unspecified constipation PAST SURGICAL HISTORY Procedure Laterality Date APPENDECTOMY ARTHRP KNE CONDYLE&PLATU MEDIAL&LAT COMPARTMENTS 2011 Knee replacement, total bilateral CARPAL TUNNEL 2004 bilateral COLONOSCOPY FLX DX W/COLLJ SPEC WHEN PFRMD 12/14/2002 Colonoscopy COLONOSCOPY FLX DX W/COLLJ SPEC WHEN PFRMD 06/10/2007 COLONOSCOPY FLX DX W/COLLJ SPEC WHEN PFRMD 08/04/2013 Colonoscopy COLONOSCOPY FLX DX W/COLLJ SPEC WHEN [facility]FR[facility] CORRECT BUNION,SIMPLE left ECHOCARDIOGRAM 10/18/2017 EGD 1985 bleeding ulcer EPS: SVT/VT ABLATION 2001 [facility] ESOPHAGOGASTRODUODENOSCOPY TRANSORAL DIAGNOSTIC 03/24/2018 EGD HERNIA REPAIR HX 09/2020 ventral hernia repair HOLTER 24 HR 10/2017 LOOP RECORDER IMPLANT 01/23/2018 NASAL/SINUS ENDOSCOPY WITH SPHENOIDOTOMY Bilateral 05/15/2019 Dr. Ruffin NASAL/SINUS ENDOSCPY W/MAXILL ANTROSTOMY Bilateral 05/15/2019 Dr. Ruffin NASAL/SINUS ENDOSCPY W/TOTAL ETHMOIDECTOMY Bilateral 05/15/2019 Dr. Ruffin OPEN REPAIR OF ROTATOR CUFF ACUTE 04/2005 Dr. Mejias PAST SURGICAL HISTORY OF 10/1997 partial colectomy ([place], [facility]) PAST SURGICAL HISTORY OF 2011 nerves cut in my back STEREO LOC FOR CORE BRST BX LT 04/24/2010 left STRESS TEST 12/17/2017 TONSILLECTOMY PRIMARY/SECONDARY <AGE 12 Social History Tobacco Use Smoking status: Never Smokeless tobacco: Never Vaping Use Vaping Use: Never used Substance Use Topics Alcohol use: No Drug use: No ACTIVE PROBLEM LIST Generalized Anxiety Disorder Diverticulosis of Large Intestine Disorder of Bone and Cartilage Hypothyroidism Hyperlipidemia Ldl Goal <130 Osteoarthritis of Both Knees Multinodular Goiter History of Knee Replacement, Total Mild Intermittent Asthma Without Complication Paroxysmal Supraventricular Tachycardia (Hcc) 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 30 tablet 1 rOPINIRole (REQUIP) 0.5 mg tablet Take 1 tablet by mouth daily at bedtime. 30 tablet 2 polyethylene glycol 3350 (CLEARLAX ORAL) Take by mouth. mometasone-formoterol (DULERA) 100-5 mcg/actuation inhaler Inhale 2 Puffs as instructed twice daily. (Patient not taking: No sig reported) clonazePAM (KLONOPIN) 0.5 mg tablet Take 0.5 mg by mouth at bedtime as needed. Dr Dupree nortriptyline (PAMELOR) 25 mg capsule Take 25 mg by mouth daily at bedtime. levothyroxine (SYNTHROID) 75 mcg tablet Take 1 tablet by mouth once daily. Take on empty stomach. For Thyroid (Patient taking differently: Take 75 mcg by mouth once daily. Take 75 mg on empty stomachTues, Thurs, Sat & Sun; Take 50mg on an empty stomach Mon, Wed, Fri) 30 tablet 11 vit A,C,Q-Muwj-Rhweww (PRESERVISION AREDS) 7,160-113-100 lwzo-qw-nlny tab Take by mouth. 0 ACETAMINOPHEN 500 MG TAB Take one(1) tablet every four(4) to six(6) hours as needed for pain. 0 No current facility-administered medications for this visit. SPIROMETRY Never done SHINGRIX VACCINE(1 of 2) Never done ADVANCE DIRECTIVE DISCUSSION Never done DEPRESSION ASSESSMENT Never done COVID-19 VACCINE(5 - Booster for Pfizer series) due on 06/01/2022 BP 136/70 Pulse 85 Resp 16 Wt 61.7 kg (136 lb) SpO2 97% BMI 26.12 kg/m Pleasant well appearing elderly woman in usual demeanor and keen mind, in no acute distress. Alert and oriented all spheres. Normal affect and cognition. Speech normal. No deficits to learning or comprehension. Skin warm, dry, pink to lips and nailbeds. Normal turgor. Respirations regular and unlabored. No retractions Chest is normal shape. Lungs are clear to all heredia with good air exchange through out. HRRR without murmur or gallop. No lifts, heaves, or rubs. Extrem: no clubbing or cyanosis. Edema: none. Extremities are warm and pink with prompt capillary refill. EKG NSR, vr 82, normal axis, no st or t-wave changes. No significant change outside of lead placement variation from 10/02/2017 ASSESSMENT/PLAN: 1. Rapid heart rate - ICD9: 785.0, ICD10: R00.0 (primary diagnosis) C/o rapid heart rate during exam but HR in mid 80s, regular. No variation in VS. Will rule out metabolic issues - ECG COMPLETE - CBC + DIFF - BASIC METABOLIC PNL - NT PRO BNP - TSH BLD - IRON + TIBC - FERRITIN BLD - MAGNESIUM BLD 2. SOB (shortness of breath) - ICD9: 786.05, ICD10: R06.02 Gasping triggered by rapid heart rate - ECG COMPLETE - CBC + DIFF - BASIC METABOLIC PNL - NT PRO BNP - TSH BLD - IRON + TIBC - FERRITIN BLD - MAGNESIUM BLD 3. Iron deficiency - ICD9: 280.9, ICD10: E61.1 - CBC + DIFF - IRON + TIBC - FERRITIN BLD Kevin Andersen PA-C documented in this encounterThe [facility]11-14-2022 Miscellaneous Notes* Telephone Encounter - Arin Lewis JULIA - 10/15/2022 4:45 PM EST Patient calling with her last lab work the iron level did not come up much. Patient said she just eats normally, and takes the iron. Patient asking if you want her to do any other testing to see why her level has not come up more? She is requesting rx refill since she is almost out. Please advise Patient has been identified by name and date of : Yes Patient phones for refill(s): Requested Prescriptions Pending Prescriptions Disp Refills ferrous sulfate 325 mg (65 mg iron) tablet 30 tablet 1 Sig: Take 1 tablet by mouth daily with breakfast. Date of last office visit in primary care: 10/01/2022, has appt 01/04. Last 2 Encounter Wt Readings: Date: Wt: 10/01/2022 62.1 kg (137 lb) 08/14/2022 61.9 kg (136 lb 6.4 oz) Previous labs/tests for medication: Blood Counts: WBC (k/uL) Date Value 10/01/2022 5.78 06/14/2021 4.91 RBC (m/uL) Date Value 10/01/2022 4.44 06/14/2021 4.24 Hematocrit (%) Date Value 10/01/2022 39.9 06/14/2021 37.7 Hemoglobin (g/dL) Date Value 10/01/2022 12.4 06/14/2021 11.9 Platelet Count (k/uL) Date Value 10/01/2022 372 06/14/2021 368 Please advise. Thank you. Arin Lewis LPN documented in this encounterThe [facility]11-03-2022 Miscellaneous Notes* Telephone Encounter - Lily Soriano LPN - 10/04/2022 5:40 PM EDT Patient agreeable to IFOBT will machine operator hop picker in lobby. * Telephone Encounter - Kevin Andersen PA-C - 10/04/2022 4:48 PM EDT Iron can be low from diet, malabsorption issues, bleeding. She hasn't really had anemia so unlikely bleeding but we could check stool for occult blood if she wants. Telephone on 10/04/22 FECAL OCCULT BLOOD TEST ThanksYao PA-C * Telephone Encounter - Alix Garcia RN - 10/04/2022 9:10 AM EDT Pt called in and reports provider had sent her a [employer] message on 10/02/22 telling her Remeron could be making her RLS worse. Pt reports she hasn't been taking that medication in 2 months. Pt also reports her iron has been low and she has been on medication for 6 weeks and her level has only gone from 32 to 36. She is wanting to know what could be the cause of it still being so low. Please call and advise. documented in this encounterThe [facility]10-31-2022 History of Present illness Narrative* Skye Rowland RT(R) - 10/01/2022 4:30 PM EDT Radiology Service Progress Note PATIENT NAME: Sachi Grace DATE OF SERVICE: October 01, 2022 TIME: 4:35 PM PATIENT IDENTITY VERIFICATION COMPLETED USING TWO (2) IDENTIFIERS: Name and Date of confirmedby patient verbally. FALL SCREENING: Has the patient had 2 falls in the last year or 1 fall with injury or currently using an Ambulatory Assistive Device (Walker, Cane, Wheelchair, Crutches, etc.)? No PATIENT GENDER DATA: Female. status: : No status: NO. PATIENT RELEVANT IMPLANT DATA REVIEWED: Not Applicable RADIOLOGY DEPARTMENT: General X-ray: Exam(s) Completed: Chest X-Ray PERIPHERAL IV DATA: Not applicable SIGNED BY: RT Ryan(R) October 01, 2022 4:35 PM documented in this encounterThe [facility] Hospital10-31-2022 History of Present illness Narrative* Kevin Andersen PA-C - 10/01/2022 3:49 PM EDT 87 year old female with c/o URI sx which started 1 week ago with dry cough, then nose runnny, blowing an dpsitting mucus. Shoulders hurt, buttocks hurt. Non fever. Getting sputum up: clear. No end to drippy nose. Hx moderate persistent asthma No hx pneumonia. Samples from night warehouse selector Dr. Nain Mauricio testing negative. No vomiting, no diarrhea HISTORIES FAMILY HISTORY Problem Relation Age of Onset Heart Mother rheumatic; 73 Colon Cancer Father dx'd age 50's Coronary Artery Disease Father age 40s, CABG (among the first done at in [place]) Stroke Sister at 58 of ruptured aneurysm Cancer Brother at 55 (tobacco, agent orange) DVT Sister PAST MEDICAL HISTORY Diagnosis Date Anosmia loss of taste, not smell Asthma moderate persistant Bilateral sensorineural hearing loss Disorder of bone and cartilage, unspecified osteopenia, on actonel (Kilo) Diverticulitis s/p partial colectomy Family history of colon cancer in father Fibromyalgia Generalized anxiety disorder 1994 Dr. Dupree-every 6 months Gout, unspecified late great toe, several episodes Hypothyroidism, unspecified Multinodular goiter Dr Boateng Osteoarthritis of both knees Other and unspecified hyperlipidemia diet therapy as of 03/08 Paroxysmal supraventricular tachycardia (HCC) ablation 01/2002 ( in [place], [facility]), follows with Dr. Moreno (prn only) RLS (restless legs syndrome) Tinnitus, unspecified ear Unspecified constipation PAST SURGICAL HISTORY Procedure Laterality Date APPENDECTOMY ARTHRP KNE CONDYLE&PLATU MEDIAL&LAT COMPARTMENTS 2011 Knee replacement, total bilateral CARPAL TUNNEL 2005 bilateral COLONOSCOPY FLX DX W/COLLJ SPEC WHEN PFRMD 12/14/2002 Colonoscopy COLONOSCOPY FLX DX W/COLLJ SPEC WHEN PFRMD 06/10/2007 COLONOSCOPY FLX DX W/COLLJ SPEC WHEN PFRMD 08/04/2013 Colonoscopy COLONOSCOPY FLX DX W/COLLJ SPEC WHEN PFRMD 10/14/2018 [facility] Tabares-Repeat 5 years CORRECT BUNION,SIMPLE left ECHOCARDIOGRAM 10/18/2017 EGD 1985 bleeding ulcer EPS: SVT/VT ABLATION 2001 [facility] ESOPHAGOGASTRODUODENOSCOPY TRANSORAL DIAGNOSTIC 03/24/2018 EGD HERNIA REPAIR HX 09/2020 ventral hernia repair HOLTER 24 HR 10/2017 LOOP RECORDER IMPLANT 01/23/2018 NASAL/SINUS ENDOSCOPY WITH SPHENOIDOTOMY Bilateral 05/15/2019 Dr. Ruffin NASAL/SINUS ENDOSCPY W/MAXILL ANTROSTOMY Bilateral 05/15/2019 Dr. Ruffin NASAL/SINUS ENDOSCPY W/TOTAL ETHMOIDECTOMY Bilateral 05/15/2019 Dr. Ruffin OPEN REPAIR OF ROTATOR CUFF ACUTE 04/2005 Dr. Mejias PAST SURGICAL HISTORY OF 10/1997 partial colectomy ([place], [facility]) PAST SURGICAL HISTORY OF 2011 nerves cut in my back STEREO LOC FOR CORE BRST BX LT 04/24/2010 left STRESS TEST 12/17/2017 TONSILLECTOMY PRIMARY/SECONDARY <AGE 12 Social History Tobacco Use Smoking status: Never Smokeless tobacco: Never Vaping Use Vaping Use: Never used Substance Use Topics Alcohol use: No Drug use: No ACTIVE PROBLEM LIST Generalized Anxiety Disorder Diverticulosis of Large Intestine Disorder of Bone and Cartilage Hypothyroidism Hyperlipidemia Ldl Goal <130 Osteoarthritis of Both Knees Multinodular Goiter History of Knee Replacement, Total Mild Intermittent Asthma Without Complication Paroxysmal Supraventricular Tachycardia (Hcc) 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 30 tablet 1 rOPINIRole (REQUIP) 0.5 mg tablet Take 1 tablet by mouth daily at bedtime. 30 tablet 2 polyethylene glycol 3350 (CLEARLAX ORAL) Take by mouth. clonazePAM (KLONOPIN) 0.5 mg tablet Take 0.5 mg by mouth at bedtime as needed. Dr Dupree nortriptyline (PAMELOR) 25 mg capsule Take 25 mg by mouth daily at bedtime. levothyroxine (SYNTHROID) 75 mcg tablet Take 1 tablet by mouth once daily. Take on empty stomach. For Thyroid (Patient taking differently: Take 75 mcg by mouth once daily. Take 75 mg on empty stomachTues, Thurs, Sat & Sun; Take 50mg on an empty stomach Mon, Wed, Fri) 30 tablet 11 vit A,C,C-Eppj-Zkhwos (PRESERVISION AREDS) 7,160-113-100 ncyr-gq-kcno tab Take by mouth. 0 ACETAMINOPHEN 500 MG TAB Take one(1) tablet every four(4) to six(6) hours as needed for pain. 0 mometasone-formoterol (DULERA) 100-5 mcg/actuation inhaler Inhale 2 Puffs as instructed twice daily. (Patient not taking: No sig reported) albuterol HFA (PROVENTIL HFA, VENTOLIN HFA) 90 mcg/actuation inhaler Inhale 2 Puffs as instructed every 4 hours as needed for Wheezing/Shortness of Breath. (Patient not taking: Reported on 04/06/2022 ) 1 Inhaler 11 No current facility-administered medications for this visit. SPIROMETRY Never done SHINGRIX VACCINE(1 of 2) Never done ADVANCE DIRECTIVE DISCUSSION Never done DEPRESSION ASSESSMENT Never done COVID-19 VACCINE(5 - Booster for Pfizer series) due on 06/01/2022 EXAM: BP 138/72 Pulse 74 Temp 36.7 C (98 F) (Left Tympanic) Resp 20 Wt 62.1 kg (137 lb) SpO2 97% BMI 26.32 kg/m Pleasant older woman in no acute distress. Alert and oriented all spheres. Normal affect and cognition. Speech normal. No deficits to learning or comprehension. Skin warm, dry, pink to lips and nailbeds. Normal turgor. Respirations regular and unlabored. HEENT: NCAT. No scleral icterus or conjunctival injection. TM's clear. Nose and oropharynx free from injection or lesion. Oral membranes moist and pink. No cervical lymph nodes. Thyroid non-tender, no masses, or enlargement. Carotids pulses 2+/4+ without bruits. No JVD with HOB at 30 degrees. Chest is normal shape. Lungs are clear to all heredia with good air exchange through out. HRRR without murmur or gallop. No lifts, heaves, or rubs. Extrem: no clubbing or cyanosis. Edema: none. Extremities are warm and pink with prompt capillary refill. ASSESSMENT/PLAN: 1. Lower respiratory infection - ICD9: 519.8, ICD10: J22 (primary diagnosis) clinically Start Z-pack, consider amoxicillin if CXR + Push fluids, good nutrition - XR CHEST 2V FRONTAL/LAT - CBC + DIFF 2. Iron deficiency anemia, unspecified iron deficiency anemia type - ICD9: 280.9, ICD10: D50.9 - CBC + DIFF - IRON + TIBC - FERRITIN BLD F/u to establish care. Kevin Andersen PA-C documented in this encounterThe [facility]09-16-[facility]22 Miscellaneous Notes* Telephone Encounter - Precious Stapleton LPN - 08/17/2022 8:49 AM EDT Phoned patient and updated her with provider's message. Patient voiced understanding. * Telephone Encounter - Shira Ordonez APRN.CNP - 08/17/2022 7:24 AM EDT Iron mildly low without anemia. Recommend iron supplement and recheck in 6-8 weeks. Will sent to pharmacy. May make her constipated- may use over the counter stool softener or miralax as directed on packaging. May take with food as it can be her nauseated. Shira Ordonez APRN.CNP documented in this encounterThe [facility]09-13-[facility]22 History of Present illness Narrative* Shira Ordonez APRN.CNP - 08/14/2022 10:48 AM EDT 08/14/2022 Patient presents with: Discussion: Wants lab work done to see if has any sort of deficiency SUBJECTIVE: This is a 87 year old that is here today for Above Complaints. Started on Remeron last week for anxiety through spring. She continue to have restless legs at night. Doesn't think the Remeron helped. She is unsure if her restless legs are do to anxiety or not. Increased her Requip on her own but still did not help. Wants labs checked to see if she has deficiency in something. [facility] be following up with [facility] next week. PAST MEDICAL HISTORY Diagnosis Date Anosmia loss of taste, not smell Asthma moderate persistant Bilateral sensorineural hearing loss Disorder of bone and cartilage, unspecified osteopenia, on actonel ([place]echa) Diverticulitis s/p partial colectomy Family history of colon cancer in father Fibromyalgia Generalized anxiety disorder 1994 Dr. Dupree-every 6 months Gout, unspecified late great toe, several episodes Hypothyroidism, unspecified Multinodular goiter Dr Boateng Osteoarthritis of both knees Other and unspecified hyperlipidemia diet therapy as of 03/08 Paroxysmal supraventricular tachycardia (HCC) ablation 01/2002 ( in [place], [facility]), follows with Dr. Moreno (prn only) RLS (restless legs syndrome) Tinnitus, unspecified ear Unspecified constipation ALLERGIES Vicodin [Hydrocodone-Acetaminophen], Cocamidopropyl Betaine, Codeine, Percocet [Oxycodone-Acetaminophen], Sulfa (Sulfonamide Antibiotics), and Tetracycline MEDICATIONS Current Outpatient Medications Medication Sig rOPINIRole (REQUIP) 0.25 mg tablet Take 0.5 tablets by mouth daily at bedtime. (Patient taking differently: Take 0.25 mg by mouth daily at bedtime.) amoxicillin (POLYMOX, AMOXIL) 500 mg capsule 2000mg by mouth 1 hour prior to procedure (Patient nottaking: Reported on 04/06/2022 ) polyethylene glycol 3350 (CLEARLAX ORAL) Take by mouth. mometasone-formoterol (DULERA) 100-5 mcg/actuation inhaler Inhale 2 Puffs as instructed twice daily. (Patient not taking: Reported on 01/31/2022 ) clonazePAM (KLONOPIN) 0.5 mg tablet Take 0.5 mg by mouth at bedtime as needed. Dr Dupree naproxen sodium (ALEVE) 220 mg tablet Take 220 mg by mouth once daily. cholecalciferol, vitamin D3, (VITAMIN D3 ORAL) Take 2,000 Units by mouth. nortriptyline (PAMELOR) 25 mg capsule Take 25 mg by mouth daily at bedtime. albuterol HFA (PROVENTIL HFA, VENTOLIN HFA) 90 mcg/actuation inhaler Inhale 2 Puffs as instructed every 4 hours as needed for Wheezing/Shortness of Breath. (Patient not taking: Reported on 04/06/2022 ) levothyroxine (SYNTHROID) 75 mcg tablet Take 1 tablet by mouth once daily. Take on empty stomach. For Thyroid (Patient taking differently: Take 75 mcg by mouth once daily. Take 75 mg on empty stomachTues, Thurs, Sat & Sun; Take 50mg on an empty stomach Mon, Wed, Fri ) vit A,C,S-Yacc-Grqfqg (PRESERVISION AREDS) 7,160-113-100 xrci-jf-muhl tab Take by mouth. ACETAMINOPHEN 500 MG TAB Take one(1) tablet every four(4) to six(6) hours as needed for pain. No current facility-administered medications for this visit. Medications and allergies reviewed by this provider. SOCIAL HISTORY Social History Tobacco Use Smoking status: Never Smokeless tobacco: Never Vaping Use Vaping Use: Never used Substance Use Topics Alcohol use: No Drug use: No REVIEW OF SYSTEMS All other reviewed and negative other than HPI. OBJECTIVE: BP 114/78 Pulse 78 Resp 16 Wt 61.9 kg (136 lb 6.4 oz) SpO2 96% BMI 26.20 kg/m . Vital signs reviewed by this provider. APPEARANCE Well appearing, alert, in no acute distress, well-hydrated, well nourished. PSYCH: Posture and motor behavior: normal posture and motor behavior Dress, grooming, personal hygiene: normal dress and grooming Facial expression: good eye contact Speech: normal speech Mood: cheerful Coherency and relevance of thought: normal thought processes Memory: normal memory Component Latest Ref Rng & Units 05/08/2022 Protein, Total 6.3 - 8.0 g/dL 7.0 Albumin 3.9 - 4.9 g/dL 3.8 (L) Calcium 8.5 - 10.2 mg/dL 9.2 Bilirubin, Total 0.2 - 1.3 mg/dL 0.6 Alkaline Phosphatase 34 - 123 U/L 103 AST 13 - 35 U/L 20 ALT 7 - 38 U/L 10 Glucose 74 - 99 mg/dL 80 BUN 7 - 21 mg/dL 11 Creatinine 0.58 - 0.96 mg/dL 0.59 Sodium 136 - 144 mmol/L 139 Potassium 3.7 - 5.1 mmol/L 4.1 Chloride 97 - 105 mmol/L 103 CO2 22 - 30 mmol/L 27 Anion Gap 9 - 18 mmol/L 9 eGFR >=60 mL/min/1.73m 88 Vitamin D 25 Hydroxy 31.0 - 80.0 ng/mL 32.8 TSH 0.270 - 4.200 mIU/L 2.150 SPIROMETRY Never done SHINGRIX VACCINE(1 of 2) Never done ADVANCE DIRECTIVE DISCUSSION Never done INFLUENZA(1) due on 08/02/2022 DIABETES SCREEN due on 05/08/2025 DTAP,TDAP,TD(2 - Td or Tdap) due on 12/23/2025 COVID-19 VACCINE Completed PNEUMOCOCCAL: 65+ Completed BONE DENSITY Addressed ASSESSMENT/PLAN: 1. RLS (restless legs syndrome) - ICD9: 333.94, ICD10: G25.81 (primary diagnosis) - will have her increase her Requip - she should follow-up with [facility] regarding anxiety - FERRITIN BLD - IRON + TIBC - CBC + DIFF - ROPINIROLE 0.5 MG TABLET - follow-up if symptoms fail to improve 2. Iron deficiency - ICD9: 280.9, ICD10: E61.1 - FERRITIN BLD - IRON + TIBC - CBC + DIFF 3. Generalized anxiety disorder - ICD9: 300.02, ICD10: F41.1 - follow-up with [facility] as scheduled - continue current medications Shira Ordonez APRN.RUSTY Prescription instructions reviewed with patient as applicable. Patient advised if symptoms do not improve or if symptoms worsen sooner, to contact their primary care physician. Potential red flag symptoms discussed with the patient. Reviewed appropriate action plan to take if red flag symptoms occur. Patient agreeable to treatment plan. I spent a total of 25 minutes on the date of the service which included preparing to see the patient, [id number] patient care, completing clinical documentation, obtaining and/or reviewing separately obtained history, performing a medically appropriate examination, counseling and educating the pat ient/family/caregiver, and ordering medications, tests, or procedures. documented in this encounterThe [facility] Hospital09-08-2022 Miscellaneous Notes* Telephone Encounter - Lily Soriano LPN - 08/09/2022 12:01 PM EDT Scheduled visit to discuss. * Telephone Encounter - Graham Flores MD - 08/09/2022 11:51 AM EDT Would recommend ov with one of us * Telephone Encounter - Bridgette Shaw - 08/09/2022 11:16 AM EDT Patient reports that her anxiety and restless leg syndrome has not improved even after medication prescribed by Dr. Mckeon and her psychiatrist. She is wondering if a complete blood work up would show if there is a chemical component or imbalance to her symptoms. Please contact patient to advise on plan of care. Patient authorized leaving a VM if unable to answer the call. documented in this encounterThe [facility] Hospital08-29-2022 Miscellaneous Notes* Telephone Encounter - Jenn Craft Pss - 07/30/2022 10:07 AM EDT Sachi is calling about her ropinirole 0.25mg tablet. She has been having issues with her restless legs and started taking the medication as a whole tablet, instead of a 0.5 tablet. Her script now needs to be changed an called in. Pharmacy : [facility] Sachi: [phone] documented in this encounterThe [facility] Hospital07-19-2022 Miscellaneous Notes* Telephone Encounter - Halima Diaz RN - 06/19/2022 11:19 AM EDT Patient returned call and given provider's message below and patient verbalized understanding. Danica Diaz RN * Telephone Encounter - Alix Garcia RN - 06/19/2022 9:55 AM EDT Called and left a voicemail for the Patient to call back and ask for a nurse to receive the providers message. Alix Garcia RN * Telephone Encounter - Troy Mckeon MD - 06/19/2022 9:41 AM EDT Diagnostic mammogram and US in November was normal. Recommended return to annual screening mammogram, so is not due for repeat imaging until November at the earliest. * Telephone Encounter - Sharon Paul RN - 06/19/2022 9:20 AM EDT Patient call and is requesting an order for Mammogram. Patient asking for order to be faxed to [facility]. Please review and advise, Sharon Paul RN documented in this encounterThe [facility] Hospital05-23-2022 Miscellaneous Notes* Telephone Encounter - IAN Francis - 04/23/2022 10:22 AM EDT BEHAVIORAL HEALTH SOCIAL WORK CONSULT NOTE Service Date: April 23, 2022 Patient was identified by name and Patient: Sachi Grace [id number] [facility] [id number] (home) [phone] (cell) PCP: Troy Mckeon MD [address] [facility] [address] Assessment: [facility] spoke with pt about getting connected with mental health services. Pt declined assistance. Medications: Current Outpatient Medications on File Prior to Visit Medication Sig amoxicillin (POLYMOX, AMOXIL) 500 mg capsule 2000mg by mouth 1 hour prior to procedure (Patient nottaking: Reported on 04/06/2022 ) rOPINIRole (REQUIP) 0.25 mg tablet Take 0.5 tablets by mouth daily at bedtime. polyethylene glycol 3350 (CLEARLAX ORAL) Take by mouth. mometasone-formoterol (DULERA) 100-5 mcg/actuation inhaler Inhale 2 Puffs as instructed twice daily. (Patient not taking: Reported on 01/31/2022 ) clonazePAM (KLONOPIN) 0.5 mg tablet Take 0.5 mg by mouth at bedtime as needed. Dr Dupree naproxen sodium (ALEVE) 220 mg tablet Take 220 mg by mouth once daily. cholecalciferol, vitamin D3, (VITAMIN D3 ORAL) Take 2,000 Units by mouth. nortriptyline (PAMELOR) 25 mg capsule Take 25 mg by mouth daily at bedtime. albuterol HFA (PROVENTIL HFA, VENTOLIN HFA) 90 mcg/actuation inhaler Inhale 2 Puffs as instructed every 4 hours as needed for Wheezing/Shortness of Breath. (Patient not taking: Reported on 04/06/2022 ) levothyroxine (SYNTHROID) 75 mcg tablet Take 1 tablet by mouth once daily. Take on empty stomach. For Thyroid (Patient taking differently: Take 75 mcg by mouth once daily. Take 75 mg on empty stomachTues, Thurs, Sat & Sun; Take 50mg on an empty stomach Mon, Wed, Fri ) vit A,C,M-Lmet-Jbulmc (PRESERVISION AREDS) 7,160-113-100 ctki-od-tzai tab Take by mouth. ACETAMINOPHEN 500 MG TAB Take one(1) tablet every four(4) to six(6) hours as needed for pain. No current facility-administered medications on file prior to visit. Curbside: No Screening Tools: No Substance Use / Abuse: No Outcome / Plan / Referrals: Internal Referrals : No Reason for External Referrals : N/A Intervention: Supportive Listening Education Resources Provided: Patient declined option for recommendations Time Spent: 15 minutes IAN Francis-S documented in this encounterThe [facility] Hospital05-19-2022 Miscellaneous Notes* Telephone Encounter - Melissa Escobar Pss - 04/19/2022 9:30 AM EDT Letter mailed. Melissa Escobar Pss * Telephone Encounter - IAN Francis - 04/18/2022 10:26 AM EDT [facility] called the pt and left message with name and number asking for a return call. [facility] was unable to reach patient via phone. [facility] will send letter out to patient. documented in this encounterThe [facility] Hospital05-06-2022 History of Present illness Narrative* Shira José Luis, RIGO.AUTOMOBILE RENTAL AGENT - 04/06/2022 10:07 AM EDT 04/06/2022 Patient presents with: Anxiety SUBJECTIVE: This is a 86 year old that is here today for Above Complaints. Patient reports worsening anxiety over the last year. Feels jittery a lot. See Dr. Dupree, psychiatrist. She reports she has told him about her worsening anxiety, but he doesn't change any medications. Patient is uncertain why she feels this way. Denies new stressors, SI, HI, or insomnia. Does notattend counseling. THE LAST 2 WEEKS, HAVE YOU BEEN BOTHERED BY ANY OF THE FOLLOWING? - Little interest or pleasure in doing things 3 NEARLY EVERY DAY Feeling down, depressed, or hopeless 0 Trouble falling or staying asleep, or sleeping too much 2 Feeling tired or having little energy 1 (Depends on weather) Poor appetite or overeating 2 (Depends on what she is eating, no weight change) Feeling bad yourself-you are a failure or have let yourself or others 0 Trouble concentrating, like reading the paper or watching TV 0 Moving/speaking slowly (others notice) OR being more fidgety/restless 0 Thoughts that you would be better off or of hurting yourself 0 PHQ TOTAL SCORE = 8 PHQ problems effect on difficulty of work, home, and social activity: 1 - NOT DIFFICULT AT ALL (Feels anxiety is worse when in a social outing ) Feeling nervous, anxious, or on edge 3 Nearly every day (Worse in the evening, heart racing as soonas she wakes up, feels it started after her came home from the hospital) Not being able to stop or control worrying 3 Nearly every day Worrying too much about different things 3 Nearly every day (Worrying about everything) Trouble relaxing 1 Several days (Can read a book to relax but still feels somewhat anxious) Being so restless that it's hard to sit still 1 Several days (Can sit still but heart feels like itis always racing ) Being easily annoyed or irritable 0 Not at all sure Feeling afraid as if something awful might happen 3 Nearly every day (Worried about losing friends and relatives ) RUY-7 Anxiety Score 14 If you checked off any problems, how difficult have these problems made it for you to do your work,take care of things at home, or get along with other people? Not difficult at all PAST MEDICAL HISTORY Diagnosis Date Anosmia loss of taste, not smell Asthma moderate persistant Bilateral sensorineural hearing loss Disorder of bone and cartilage, unspecified osteopenia, on actonel ([place]ilo) Diverticulitis s/p partial colectomy Family history of colon cancer in father Fibromyalgia Generalized anxiety disorder 1994 Dr. Dupree-every 6 months Gout, unspecified late great toe, several episodes Hypothyroidism, unspecified Multinodular goiter Dr Boateng Osteoarthritis of both knees Other and unspecified hyperlipidemia diet therapy as of 03/08 Paroxysmal supraventricular tachycardia (HCC) ablation 01/2002 ( in [place], [facility]), follows with Dr. Moreno (prn only) RLS (restless legs syndrome) Tinnitus, unspecified ear Unspecified constipation ALLERGIES Vicodin [Hydrocodone-Acetaminophen], Cocamidopropyl Betaine, Codeine, Percocet [Oxycodone-Acetaminophen], Sulfa (Sulfonamide Antibiotics), and Tetracycline MEDICATIONS Current Outpatient Medications Medication Sig rOPINIRole (REQUIP) 0.25 mg tablet Take 0.5 tablets by mouth daily at bedtime. polyethylene glycol 3350 (CLEARLAX ORAL) Take by mouth. clonazePAM (KLONOPIN) 0.5 mg tablet Take 0.5 mg by mouth at bedtime as needed. Dr Dupree naproxen sodium (ALEVE) 220 mg tablet Take 220 mg by mouth once daily. nortriptyline (PAMELOR) 25 mg capsule Take 25 mg by mouth daily at bedtime. levothyroxine (SYNTHROID) 75 mcg tablet Take 1 tablet by mouth once daily. Take on empty stomach. For Thyroid (Patient taking differently: Take 75 mcg by mouth once daily. Take 75 mg on empty stomachTues, Thurs, Sat & Sun; Take 50mg on an empty stomach Mon, Wed, Fri ) vit A,C,J-Ralb-Ofmekn (PRESERVISION AREDS) 7,160-113-100 oohp-sl-kxeu tab Take by mouth. ACETAMINOPHEN 500 MG TAB Take one(1) tablet every four(4) to six(6) hours as needed for pain. amoxicillin (POLYMOX, AMOXIL) 500 mg capsule 2000mg by mouth 1 hour prior to procedure (Patient nottaking: Reported on 04/06/2022 ) mometasone-formoterol (DULERA) 100-5 mcg/actuation inhaler Inhale 2 Puffs as instructed twice daily. (Patient not taking: Reported on 01/31/2022 ) cholecalciferol, vitamin D3, (VITAMIN D3 ORAL) Take 2,000 Units by mouth. albuterol HFA (PROVENTIL HFA, VENTOLIN HFA) 90 mcg/actuation inhaler Inhale 2 Puffs as instructed every 4 hours as needed for Wheezing/Shortness of Breath. (Patient not taking: Reported on 04/06/2022 ) No current facility-administered medications for this visit. Medications and allergies reviewed by this provider. SOCIAL HISTORY Social History Tobacco Use Smoking status: Never Smoker Smokeless tobacco: Never Used Vaping Use Vaping Use: Never used Substance Use Topics Alcohol use: No Drug use: No REVIEW OF SYSTEMS All other reviewed and negative other than HPI. OBJECTIVE: Pulse 75 Resp 18 Wt 61.5 kg (135 lb 9.6 oz) SpO2 99% BMI 26.05 kg/m . Vital signs reviewed by this provider. APPEARANCE Well appearing, alert, in no acute distress, well-hydrated, well nourished. HEART RRR with normal S1 and S2, no murmurs, no gallops, no JVD appreciated LUNG clear to auscultation. No wheezes, rhonchi, or rales SKIN Skin color, texture, turgor normal, no suspicious rashes or lesions PSYCH: Posture and motor behavior: normal posture and motor behavior Dress, grooming, personal hygiene: normal dress and grooming Facial expression: good eye contact Speech: normal speech Mood: anxious Coherency and relevance of thought: normal thought processes Memory: normal memory SPIROMETRY Never done SHINGRIX VACCINE(1 of 2) Never done ADVANCE DIRECTIVE DISCUSSION Never done DIABETES SCREEN due on 02/05/2025 DTAP,TDAP,TD(2 - Td or Tdap) due on 12/23/2025 INFLUENZA Completed PNEUMOVAX AGE 65 AND OVER WITH 5YR LOOKBACK Completed COVID-19 VACCINE Completed BONE DENSITY Addressed MENINGOCOCCAL CONJUGATE Aged Out ASSESSMENT/PLAN: 1. Anxiety with depression - ICD9: 300.4, ICD10: F41.8 - discussed with patient it is not appropriate for me to adjust medications being prescribed by another provider - recommend she reach out and schedule appointment with psychiatrist to discuss medications - will have behavioral health reach out to her with resources for counseling which I highly encouraged her to do - CONSULT TO PRIMARY CARE BEHAVIORAL HEALTH ADULT Shira Ordonez APRN.CNP Prescription instructions reviewed with patient as applicable. Patient advised if symptoms do not improve or if symptoms worsen sooner, to contact their primary care physician. Potential red flag symptoms discussed with the patient. Reviewed appropriate action plan to take if red flag symptoms occur. Patient agreeable to treatment plan. documented in this encounterThe [facility] Hospital05-03-2021 History of Present illness Narrative* Skye Rowland RT(R) - 04/03/2021 9:00 AM EDT Radiology Service Progress Note PATIENT NAME: Sachi Grace DATE OF SERVICE: April 03, 2021 TIME: 9:09 AM PATIENT IDENTITY VERIFICATION COMPLETED USING TWO (2) IDENTIFIERS: Name and Date of confirmedby patient verbally. FALL SCREENING: Has the patient had 2 falls in the last year or 1 fall with injury or currently using an Ambulatory Assistive Device (Walker, Cane, Wheelchair, Crutches, etc.)? No PATIENT GENDER DATA: Female. status: : No status: NO. PATIENT RELEVANT IMPLANT DATA REVIEWED: Not Applicable RADIOLOGY DEPARTMENT: General X-ray: Exam(s) Completed: Abdomen X-Ray: Abdomen PERIPHERAL IV DATA: Not applicable SIGNED BY: RT Ryan(R) April 03, 2021 9:09 AM documented in this encounterThe Christ Hospital02-06-2021 NoteProcedure (DIEGO) SACHI GRACE ([id number]) 1935 F NFR Date Time Provider Department 01/07/21 8:00 AM REM DEVICE CK [facility] During your visit today, we recorded the following information about you: Referring Provider: KRYS REED [[id number]] Allergies As of Date: 01/07/2021 Noted Allergy Reaction VICODIN (HYDROCODONE-ACETAMINOPHE*05/04/2013 8 - GI Upset COCAMIDOPROPYL BETAINE 07/27/2020 2 - Rash Comments: itching, rash CODEINE 03/19/2007 8 - GI Upset PERCOCET (OXYCODONE-ACETAMINOPHEN)04/22/2013 8 - GI Upset SULFA (SULFONAMIDE ANTIBIOTICS) 03/19/2007 4 - Hives 7 - Swelling Comments: lips swelled up TETRACYCLINE 04/29/2019 8 - GI Upset Date Reviewed: 11/01/2020 Reviewed by: Dolores Brown (Julia) JULIA Gaytan - Fully Assessed Reason for Visit: Remote ILR Follow Up [1926] Visit Diagnosis:Paroxysmal SVT (supraventricular tachycardia) ([facility]) [I47.1] Prescriptions as of 01/07/2021 Sig: CLONAZEPAM 0.25 MG DISINTEGRA* Take 0.25 mg by mouth twice d* DUPIXENT 300 MG/2 ML SUBCUTAN* Inject 300 mg subcutaneously * FLUOXETINE 10 MG CAPSULE Take 1 capsule by mouth once * Patient not taking: Reported on 11/01/2020 NORTRIPTYLINE 25 MG CAPSULE Take 25 mg by mouth daily at * FLUTICASONE FUROATE 27.5 MCG/* Use 2 Sprays in each nostril * ALBUTEROL SULFATE HFA 90 MCG/* Inhale 2 Puffs as instructed * LEVOTHYROXINE 75 MCG TABLET Take 1 tablet by mouth once d* Patient taking differently: Take 50 mcg by mouth once fidel* VITAMINS A,C,F-QPWL-QBJYHD 7* Take by mouth. ACETAMINOPHEN 500 MG TABLET Take one(1) tablet every four* Problem List As Of Date 01/07/2021 Noted Resolved Unspecified constipation [K59.00] 04/30/2006 03/16/2016 More... PEPTIC ULCER NOS [K27.9] 03/19/2007 More... More... GENERALIZED ANXIETY DIS [F41.1] Generalized osteoarthrosis, unspecified site [M* 12/23/2015 More... Myalgia and myositis [DBZ7316] 05/22/2017 More... Diverticulosis of large intestine [K57.30] More... Disorder of bone and cartilage [M89.9, M94.9] More... Hypothyroidism [E03.9] Hyperlipidemia LDL goal <130 [E78.5] More... Gout, unspecified [M10.9] 12/23/2015 More... PEPTIC ULCER NOS [K27.9] 03/19/2007 More... PAROX ATRIAL TACHYCARDIA [I47.1] 03/19/2007 More... Disturbances of sensation of smell and taste [R*02/13/2008 05/22/2017 Chronic maxillary sinusitis [J32.0] 02/13/2008 05/22/2017 More... Meniere's disease, unspecified [H81.09] 05/20/2008 03/16/2016 More... Dizziness and giddiness [R42] 05/13/2009 12/23/2015 Cervicalgia [M54.2] 05/13/2009 12/23/2015 Osteoarthritis of both knees [M17.0] Multinodular goiter [E04.2] More... Syncope and collapse [R55] 04/30/2014 12/23/2015 More... History of knee replacement, total [Z96.659] 12/23/2015 Ageusia [R43.2] 02/23/2016 05/22/2017 Glossitis [K14.0] 02/23/2016 05/22/2017 Mild intermittent asthma without complication [*03/16/2016 Paroxysmal supraventricular tachycardia (HCC) [* More... Nausea [R11.0] 03/20/2018 04/29/2019 More... Hernia of anterior abdominal wall [K43.9] 04/18/2020 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] 04/18/2020 BPPV (benign paroxysmal positional vertigo), un*04/22/2020 Itching [L29.9] 07/27/2020 Orthostatic syncope [I95.1] 07/27/2020 Encounter Status:Closed by DION CROWELL on 01/10/21[facility]01-07-2021 NoteProcedure ([facility]KEPD) SACHI GRACE ([id number]) 1935 F NFR Date Time Provider Department 12/08/20 8:00 AM REM DEVICE CK [facility] During your visit today, we recorded the following information about you: Referring Provider: KRYS REED [[id number]] Allergies As of Date: 12/08/2020 Noted Allergy Reaction VICODIN (HYDROCODONE-ACETAMINOPHE*05/04/2013 8 - GI Upset COCAMIDOPROPYL BETAINE 07/27/2020 2 - Rash Comments: itching, rash CODEINE 03/19/2007 8 - GI Upset PERCOCET (OXYCODONE-ACETAMINOPHEN)04/22/2013 8 - GI Upset SULFA (SULFONAMIDE ANTIBIOTICS) 03/19/2007 4 - Hives 7 - Swelling Comments: lips swelled up TETRACYCLINE 04/29/2019 8 - GI Upset Date Reviewed: 11/01/2020 Reviewed by: Dolores Brown (Julai) JULIA Gaytan - Fully Assessed Reason for Visit: Remote Pacemaker Follow Up [1925] Visit Diagnosis:Syncope, unspecified syncope type [R55] Prescriptions as of 12/08/2020 Sig: CLONAZEPAM 0.25 MG DISINTEGRA* Take 0.25 mg by mouth twice d* DUPIXENT 300 MG/2 ML SUBCUTAN* Inject 300 mg subcutaneously * FLUOXETINE 10 MG CAPSULE Take 1 capsule by mouth once * Patient not taking: Reported on 11/01/2020 NORTRIPTYLINE 25 MG CAPSULE Take 25 mg by mouth daily at * FLUTICASONE FUROATE 27.5 MCG/* Use 2 Sprays in each nostril * ALBUTEROL SULFATE HFA 90 MCG/* Inhale 2 Puffs as instructed * LEVOTHYROXINE 75 MCG TABLET Take 1 tablet by mouth once d* Patient taking differently: Take 50 mcg by mouth once fidel* VITAMINS A,C,O-LOET-NQGUCS 7* Take by mouth. ACETAMINOPHEN 500 MG TABLET Take one(1) tablet every four* Problem List As Of Date 12/08/2020 Noted Resolved Unspecified constipation [K59.00] 04/30/2006 03/16/2016 More... PEPTIC ULCER NOS [K27.9] 03/19/2007 More... More... GENERALIZED ANXIETY DIS [F41.1] Generalized osteoarthrosis, unspecified site [M* 12/23/2015 More... Myalgia and myositis [[id number]] 05/22/2017 More... Diverticulosis of large intestine [K57.30] More... Disorder of bone and cartilage [M89.9, M94.9] More... Hypothyroidism [E03.9] Hyperlipidemia LDL goal <130 [E78.5] More... Gout, unspecified [M10.9] 12/23/2015 More... PEPTIC ULCER NOS [K27.9] 03/19/2007 More... PAROX ATRIAL TACHYCARDIA [I47.1] 03/19/2007 More... Disturbances of sensation of smell and taste [R*02/13/2008 05/22/2017 Chronic maxillary sinusitis [J32.0] 02/13/2008 05/22/2017 More... Meniere's disease, unspecified [H81.09] 05/20/2008 03/16/2016 More... Dizziness and giddiness [R42] 05/13/2009 12/23/2015 Cervicalgia [M54.2] 05/13/2009 12/23/2015 Osteoarthritis of both knees [M17.0] Multinodular goiter [E04.2] More... Syncope and collapse [R55] 04/30/2014 12/23/2015 More... History of knee replacement, total [Z96.659] 12/23/2015 Ageusia [R43.2] 02/23/2016 05/22/2017 Glossitis [K14.0] 02/23/2016 05/22/2017 Mild intermittent asthma without complication [*03/16/2016 Paroxysmal supraventricular tachycardia (HCC) [* More... Nausea [R11.0] 03/20/2018 04/29/2019 More... Hernia of anterior abdominal wall [K43.9] 04/18/2020 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] 04/18/2020 BPPV (benign paroxysmal positional vertigo), un*04/22/2020 Itching [L29.9] 07/27/2020 Orthostatic syncope [I95.1] 07/27/2020 Encounter Status:Closed by PRECIOUS COPELAND on 12/09/20[facility] 11-08-2020 NoteProcedure (AKEPD) SACHI GRACE ([id number]) 1935 F NFR Date Time Provider Department 11/08/20 8:00 AM REM DEVICE CK AKEPD During your visit today, we recorded the following information about you: Referring Provider: KRYS REED [[id number]] Allergies As of Date: 11/08/2020 Noted Allergy Reaction VICODIN (HYDROCODONE-ACETAMINOPHE*05/04/2013 8 - GI Upset COCAMIDOPROPYL BETAINE 07/27/2020 2 - Rash Comments: itching, rash CODEINE 03/19/2007 8 - GI Upset PERCOCET (OXYCODONE-ACETAMINOPHEN)04/22/2013 8 - GI Upset SULFA (SULFONAMIDE ANTIBIOTICS) 03/19/2007 4 - Hives 7 - Swelling Comments: lips swelled up TETRACYCLINE 04/29/2019 8 - GI Upset Date Reviewed: 11/01/2020 Reviewed by: Dolores Brown (Julia) JULIA Gaytan - Fully Assessed Reason for Visit: Remote Pacemaker Follow Up [1925] Visit Diagnosis:Syncope, unspecified syncope type [R55] Prescriptions as of 11/08/2020 Sig: CLONAZEPAM 0.25 MG DISINTEGRA* Take 0.25 mg by mouth twice d* DUPIXENT 300 MG/2 ML SUBCUTAN* Inject 300 mg subcutaneously * FLUOXETINE 10 MG CAPSULE Take 1 capsule by mouth once * Patient not taking: Reported on 11/01/2020 NORTRIPTYLINE 25 MG CAPSULE Take 25 mg by mouth daily at * FLUTICASONE FUROATE 27.5 MCG/* Use 2 Sprays in each nostril * ALBUTEROL SULFATE HFA 90 MCG/* Inhale 2 Puffs as instructed * LEVOTHYROXINE 75 MCG TABLET Take 1 tablet by mouth once d* Patient taking differently: Take 50 mcg by mouth once fidel* VITAMINS A,C,Q-CANE-WVULGJ 7* Take by mouth. ACETAMINOPHEN 500 MG TABLET Take one(1) tablet every four* Problem List As Of Date 11/08/2020 Noted Resolved Unspecified constipation [K59.00] 04/30/2006 03/16/2016 More... PEPTIC ULCER NOS [K27.9] 03/19/2007 More... More... GENERALIZED ANXIETY DIS [F41.1] Generalized osteoarthrosis, unspecified site [M* 12/23/2015 More... Myalgia and myositis [[id number]] 05/22/2017 More... Diverticulosis of large intestine [K57.30] More... Disorder of bone and cartilage [M89.9, M94.9] More... Hypothyroidism [E03.9] Hyperlipidemia LDL goal <130 [E78.5] More... Gout, unspecified [M10.9] 12/23/2015 More... PEPTIC ULCER NOS [K27.9] 03/19/2007 More... PAROX ATRIAL TACHYCARDIA [I47.1] 03/19/2007 More... Disturbances of sensation of smell and taste [R*02/13/2008 05/22/2017 Chronic maxillary sinusitis [J32.0] 02/13/2008 05/22/2017 More... Meniere's disease, unspecified [H81.09] 05/20/2008 03/16/2016 More... Dizziness and giddiness [R42] 05/13/2009 12/23/2015 Cervicalgia [M54.2] 05/13/2009 12/23/2015 Osteoarthritis of both knees [M17.0] Multinodular goiter [E04.2] More... Syncope and collapse [R55] 04/30/2014 12/23/2015 More... History of knee replacement, total [Z96.659] 12/23/2015 Ageusia [R43.2] 02/23/2016 05/22/2017 Glossitis [K14.0] 02/23/2016 05/22/2017 Mild intermittent asthma without complication [*03/16/2016 Paroxysmal supraventricular tachycardia (HCC) [* More... Nausea [R11.0] 03/20/2018 04/29/2019 More... Hernia of anterior abdominal wall [K43.9] 04/18/2020 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] 04/18/2020 BPPV (benign paroxysmal positional vertigo), un*04/22/2020 Itching [L29.9] 07/27/2020 Orthostatic syncope [I95.1] 07/27/2020 Encounter Status:Closed by PRECIOUS COPELAND on 11/09/20[facility] 10-09-2020 NoteProcedure (AKEPD) SACHI GRACE ([id number]) 1935 F NFR Date Time Provider Department 10/09/20 8:00 AM REM DEVICE CK AKEPD During your visit today, we recorded the following information about you: Referring Provider: KRYS REED [[id number]] Allergies As of Date: 10/09/2020 Noted Allergy Reaction VICODIN (HYDROCODONE-ACETAMINOPHE*05/04/2013 8 - GI Upset COCAMIDOPROPYL BETAINE 07/27/2020 2 - Rash Comments: itching, rash CODEINE 03/19/2007 8 - GI Upset PERCOCET (OXYCODONE-ACETAMINOPHEN)04/22/2013 8 - GI Upset SULFA (SULFONAMIDE ANTIBIOTICS) 03/19/2007 4 - Hives 7 - Swelling Comments: lips swelled up TETRACYCLINE 04/29/2019 8 - GI Upset Date Reviewed: 08/11/2020 Reviewed by: Mandy ([facility]) SABRINA Chan - Fully Assessed Reason for Visit: Remote ILR Follow Up [1926] Visit Diagnosis:Paroxysmal SVT (supraventricular tachycardia) (HCC) [I47.1] Prescriptions as of 10/09/2020 Sig: DUPIXENT 300 MG/2 ML SUBCUTAN* Inject 300 mg subcutaneously * DOXYCYCLINE MONOHYDRATE 100 M* Take 1 tablet by mouth twice * FLUOXETINE 10 MG CAPSULE Take 1 capsule by mouth once * AMOXICILLIN 500 MG CAPSULE 2000mg by mouth 1 hour prior * NORTRIPTYLINE 25 MG CAPSULE Take 25 mg by mouth daily at * FLUTICASONE FUROATE 27.5 MCG/* Use 2 Sprays in each nostril * ALBUTEROL SULFATE HFA 90 MCG/* Inhale 2 Puffs as instructed * LEVOTHYROXINE 75 MCG TABLET Take 1 tablet by mouth once d* Patient taking differently: Take 50 mcg by mouth once fidel* VITAMINS A,C,Z-QZVM-UANDAX 7* Take by mouth. ACETAMINOPHEN 500 MG TABLET Take one(1) tablet every four* Problem List As Of Date 10/09/2020 Noted Resolved Unspecified constipation [K59.00] 04/30/2006 03/16/2016 More... PEPTIC ULCER NOS [K27.9] 03/19/2007 More... More... GENERALIZED ANXIETY DIS [F41.1] Generalized osteoarthrosis, unspecified site [M* 12/23/2015 More... Myalgia and myositis [[id number]] 05/22/2017 More... Diverticulosis of large intestine [K57.30] More... Disorder of bone and cartilage [M89.9, M94.9] More... Hypothyroidism [E03.9] Hyperlipidemia LDL goal <130 [E78.5] More... Gout, unspecified [M10.9] 12/23/2015 More... PEPTIC ULCER NOS [K27.9] 03/19/2007 More... PAROX ATRIAL TACHYCARDIA [I47.1] 03/19/2007 More... Disturbances of sensation of smell and taste [R*02/13/2008 05/22/2017 Chronic maxillary sinusitis [J32.0] 02/13/2008 05/22/2017 More... Meniere's disease, unspecified [H81.09] 05/20/2008 03/16/2016 More... Dizziness and giddiness [R42] 05/13/2009 12/23/2015 Cervicalgia [M54.2] 05/13/2009 12/23/2015 Osteoarthritis of both knees [M17.0] Multinodular goiter [E04.2] More... Syncope and collapse [R55] 04/30/2014 12/23/2015 More... History of knee replacement, total [Z96.659] 12/23/2015 Ageusia [R43.2] 02/23/2016 05/22/2017 Glossitis [K14.0] 02/23/2016 05/22/2017 Mild intermittent asthma without complication [*03/16/2016 Paroxysmal supraventricular tachycardia (HCC) [* More... Nausea [R11.0] 03/20/2018 04/29/2019 More... Hernia of anterior abdominal wall [K43.9] 04/18/2020 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] 04/18/2020 BPPV (benign paroxysmal positional vertigo), un*04/22/2020 Itching [L29.9] 07/27/2020 Orthostatic syncope [I95.1] 07/27/2020 Encounter Status:Closed by DION CROWELL on 10/10/20[facility]10-09-2020 NoteProcedure (AKEPD) SACHI GRACE ([id number]) 1935 F NFR Date Time Provider Department 09/09/20 8:00 AM REM DEVICE CK AKEPD During your visit today, we recorded the following information about you: Referring Provider: KRYS REED [[id number]] Allergies As of Date: 09/09/2020 Noted Allergy Reaction VICODIN (HYDROCODONE-ACETAMINOPHE*05/04/2013 8 - GI Upset COCAMIDOPROPYL BETAINE 07/27/2020 2 - Rash Comments: itching, rash CODEINE 03/19/2007 8 - GI Upset PERCOCET (OXYCODONE-ACETAMINOPHEN)04/22/2013 8 - GI Upset SULFA (SULFONAMIDE ANTIBIOTICS) 03/19/2007 4 - Hives 7 - Swelling Comments: lips swelled up TETRACYCLINE 04/29/2019 8 - GI Upset Date Reviewed: 08/11/2020 Reviewed by: Mandy ([facility]) SABRINA Chan - Fully Assessed Reason for Visit: Remote Pacemaker Follow Up [1925] Visit Diagnosis:Syncope, unspecified syncope type [R55] Prescriptions as of 09/09/2020 Sig: DUPIXENT 300 MG/2 ML SUBCUTAN* Inject 300 mg subcutaneously * DOXYCYCLINE MONOHYDRATE 100 M* Take 1 tablet by mouth twice * FLUOXETINE 10 MG CAPSULE Take 1 capsule by mouth once * AMOXICILLIN 500 MG CAPSULE 2000mg by mouth 1 hour prior * NORTRIPTYLINE 25 MG CAPSULE Take 25 mg by mouth daily at * FLUTICASONE FUROATE 27.5 MCG/* Use 2 Sprays in each nostril * ALBUTEROL SULFATE HFA 90 MCG/* Inhale 2 Puffs as instructed * LEVOTHYROXINE 75 MCG TABLET Take 1 tablet by mouth once d* Patient taking differently: Take 50 mcg by mouth once fidel* VITAMINS A,C,X-JXUD-GPUSGZ 7* Take by mouth. ACETAMINOPHEN 500 MG TABLET Take one(1) tablet every four* Problem List As Of Date 09/09/2020 Noted Resolved Unspecified constipation [K59.00] 04/30/2006 03/16/2016 More... PEPTIC ULCER NOS [K27.9] 03/19/2007 More... More... GENERALIZED ANXIETY DIS [F41.1] Generalized osteoarthrosis, unspecified site [M* 12/23/2015 More... Myalgia and myositis [[id number]] 05/22/2017 More... Diverticulosis of large intestine [K57.30] More... Disorder of bone and cartilage [M89.9, M94.9] More... Hypothyroidism [E03.9] Hyperlipidemia LDL goal <130 [E78.5] More... Gout, unspecified [M10.9] 12/23/2015 More... PEPTIC ULCER NOS [K27.9] 03/19/2007 More... PAROX ATRIAL TACHYCARDIA [I47.1] 03/19/2007 More... Disturbances of sensation of smell and taste [R*02/13/2008 05/22/2017 Chronic maxillary sinusitis [J32.0] 02/13/2008 05/22/2017 More... Meniere's disease, unspecified [H81.09] 05/20/2008 03/16/2016 More... Dizziness and giddiness [R42] 05/13/2009 12/23/2015 Cervicalgia [M54.2] 05/13/2009 12/23/2015 Osteoarthritis of both knees [M17.0] Multinodular goiter [E04.2] More... Syncope and collapse [R55] 04/30/2014 12/23/2015 More... History of knee replacement, total [Z96.659] 12/23/2015 Ageusia [R43.2] 02/23/2016 05/22/2017 Glossitis [K14.0] 02/23/2016 05/22/2017 Mild intermittent asthma without complication [*03/16/2016 Paroxysmal supraventricular tachycardia (HCC) [* More... Nausea [R11.0] 03/20/2018 04/29/2019 More... Hernia of anterior abdominal wall [K43.9] 04/18/2020 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] 04/18/2020 BPPV (benign paroxysmal positional vertigo), un*04/22/2020 Itching [L29.9] 07/27/2020 Orthostatic syncope [I95.1] 07/27/2020 Encounter Status:Closed by PRECIOUS COPELAND on 09/12/20[facility] 08-10-2020 NoteProcedure (AKCHEVY) SACHI GRACE ([id number]) 1935 F NFR Date Time Provider Department 08/10/20 8:00 AM REM DEVICE CK AKEPD During your visit today, we recorded the following information about you: Referring Provider: KRYS REED [[id number]] Allergies As of Date: 08/10/2020 Noted Allergy Reaction VICODIN (HYDROCODONE-ACETAMINOPHE*05/04/2013 8 - GI Upset COCAMIDOPROPYL BETAINE 07/27/2020 2 - Rash Comments: itching, rash CODEINE 03/19/2007 8 - GI Upset PERCOCET (OXYCODONE-ACETAMINOPHEN)04/22/2013 8 - GI Upset SULFA (SULFONAMIDE ANTIBIOTICS) 03/19/2007 4 - Hives 7 - Swelling Comments: lips swelled up TETRACYCLINE 04/29/2019 8 - GI Upset Date Reviewed: 07/30/2020 Reviewed by: Carol Yi Ma - Fully Assessed Reason for Visit: Remote ILR Follow Up [1926] Visit Diagnosis:Syncope, unspecified syncope type [R55] Prescriptions as of 08/10/2020 Sig: DOXYCYCLINE MONOHYDRATE 100 M* Take 1 tablet by mouth twice * FLUOXETINE 10 MG CAPSULE Take 1 capsule by mouth once * AMOXICILLIN 500 MG CAPSULE 2000mg by mouth 1 hour prior * NORTRIPTYLINE 25 MG CAPSULE Take 25 mg by mouth daily at * FLUTICASONE FUROATE 27.5 MCG/* Use 2 Sprays in each nostril * ALBUTEROL SULFATE HFA 90 MCG/* Inhale 2 Puffs as instructed * LEVOTHYROXINE 75 MCG TABLET Take 1 tablet by mouth once d* Patient taking differently: Take 50 mcg by mouth once fidel* VITAMINS A,C,X-OPAQ-MQZSIX 7* Take by mouth. ACETAMINOPHEN 500 MG TABLET Take one(1) tablet every four* Problem List As Of Date 08/10/2020 Noted Resolved Unspecified constipation [K59.00] 04/30/2006 03/16/2016 More... PEPTIC ULCER NOS [K27.9] 03/19/2007 More... More... GENERALIZED ANXIETY DIS [F41.1] Generalized osteoarthrosis, unspecified site [M* 12/23/2015 More... Myalgia and myositis [[id number]] 05/22/2017 More... Diverticulosis of large intestine [K57.30] More... Disorder of bone and cartilage [M89.9, M94.9] More... Hypothyroidism [E03.9] Hyperlipidemia LDL goal <130 [E78.5] More... Gout, unspecified [M10.9] 12/23/2015 More... PEPTIC ULCER NOS [K27.9] 03/19/2007 More... PAROX ATRIAL TACHYCARDIA [I47.1] 03/19/2007 More... Disturbances of sensation of smell and taste [R*02/13/2008 05/22/2017 Chronic maxillary sinusitis [J32.0] 02/13/2008 05/22/2017 More... Meniere's disease, unspecified [H81.09] 05/20/2008 03/16/2016 More... Dizziness and giddiness [R42] 05/13/2009 12/23/2015 Cervicalgia [M54.2] 05/13/2009 12/23/2015 Osteoarthritis of both knees [M17.0] Multinodular goiter [E04.2] More... Syncope and collapse [R55] 04/30/2014 12/23/2015 More... History of knee replacement, total [Z96.659] 12/23/2015 Ageusia [R43.2] 02/23/2016 05/22/2017 Glossitis [K14.0] 02/23/2016 05/22/2017 Mild intermittent asthma without complication [*03/16/2016 Paroxysmal supraventricular tachycardia (HCC) [* More... Nausea [R11.0] 03/20/2018 04/29/2019 More... Hernia of anterior abdominal wall [K43.9] 04/18/2020 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] 04/18/2020 BPPV (benign paroxysmal positional vertigo), un*04/22/2020 Itching [L29.9] 07/27/2020 Orthostatic syncope [I95.1] 07/27/2020 Encounter Status:Closed by SOHA NGUYEN on 08/10/20[facility] 07-11-2020 NoteProcedure (AKEPD) SCHUYLERVERNONSACHI ([id number]) 1935 F NFR Date Time Provider Department 07/11/20 8:00 AM REM DEVICE CK AKEPD During your visit today, we recorded the following information about you: Referring Provider: KRYS REED [[id number]] Allergies As of Date: 07/11/2020 Noted Allergy Reaction VICODIN (HYDROCODONE-ACETAMINOPHE*05/04/2013 8 - GI Upset CODEINE 03/19/2007 8 - GI Upset PERCOCET (OXYCODONE-ACETAMINOPHEN)04/22/2013 8 - GI Upset SULFA (SULFONAMIDE ANTIBIOTICS) 03/19/2007 4 - Hives 7 - Swelling Comments: lips swelled up TETRACYCLINE 04/29/2019 8 - GI Upset Date Reviewed: 06/13/2020 Reviewed by: Breonna Pineda - Fully Assessed Reason for Visit: Remote ILR Follow Up [1926] Visit Diagnosis:Syncope, unspecified syncope type [R55] Prescriptions as of 07/11/2020 Sig: FLUOXETINE 10 MG CAPSULE Take 1 capsule by mouth once * AMOXICILLIN 500 MG CAPSULE 2000mg by mouth 1 hour prior * NORTRIPTYLINE 25 MG CAPSULE Take 25 mg by mouth daily at * FLUTICASONE FUROATE 27.5 MCG/* Use 2 Sprays in each nostril * ALBUTEROL SULFATE HFA 90 MCG/* Inhale 2 Puffs as instructed * LEVOTHYROXINE 75 MCG TABLET Take 1 tablet by mouth once d* Patient taking differently: Take 50 mcg by mouth once fidel* VITAMINS A,C,H-ITVP-FRXOJQ 7* Take by mouth. ACETAMINOPHEN 500 MG TABLET Take one(1) tablet every four* Problem List As Of Date 07/11/2020 Noted Resolved Unspecified constipation [K59.00] 04/30/2006 03/16/2016 More... PEPTIC ULCER NOS [K27.9] 03/19/2007 More... More... GENERALIZED ANXIETY DIS [F41.1] Generalized osteoarthrosis, unspecified site [M* 12/23/2015 More... Myalgia and myositis [[id number]] 05/22/2017 More... Diverticulosis of large intestine [K57.30] More... Disorder of bone and cartilage [M89.9, M94.9] More... Hypothyroidism [E03.9] Hyperlipidemia LDL goal <130 [E78.5] More... Gout, unspecified [M10.9] 12/23/2015 More... PEPTIC ULCER NOS [K27.9] 03/19/2007 More... PAROX ATRIAL TACHYCARDIA [I47.1] 03/19/2007 More... Disturbances of sensation of smell and taste [R*02/13/2008 05/22/2017 Chronic maxillary sinusitis [J32.0] 02/13/2008 05/22/2017 More... Meniere's disease, unspecified [H81.09] 05/20/2008 03/16/2016 More... Dizziness and giddiness [R42] 05/13/2009 12/23/2015 Cervicalgia [M54.2] 05/13/2009 12/23/2015 Osteoarthritis of both knees [M17.0] Multinodular goiter [E04.2] More... Syncope and collapse [R55] 04/30/2014 12/23/2015 More... History of knee replacement, total [Z96.659] 12/23/2015 Ageusia [R43.2] 02/23/2016 05/22/2017 Glossitis [K14.0] 02/23/2016 05/22/2017 Mild intermittent asthma without complication [*03/16/2016 Paroxysmal supraventricular tachycardia (HCC) [* More... Nausea [R11.0] 03/20/2018 04/29/2019 More... Hernia of anterior abdominal wall [K43.9] 04/18/2020 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] 04/18/2020 BPPV (benign paroxysmal positional vertigo), un*04/22/2020 Encounter Status:Closed by KEVIN GOSS on 07/11/20[facility]07[facility]2020 NoteProcedure (AKEPD) SACHI GRACE ([id number]) 1935 F NFR Date Time Provider Department 06/11/20 8:00 AM REM DEVICE CK AKEPD During your visit today, we recorded the following information about you: Referring Provider: KRYS REDE [[id number]] Allergies As of Date: 06/11/2020 Noted Allergy Reaction VICODIN (HYDROCODONE-ACETAMINOPHE*05/04/2013 8 - GI Upset CODEINE 03/19/2007 8 - GI Upset PERCOCET (OXYCODONE-ACETAMINOPHEN)04/22/2013 8 - GI Upset SULFA (SULFONAMIDE ANTIBIOTICS) 03/19/2007 4 - Hives 7 - Swelling Comments: lips swelled up TETRACYCLINE 04/29/2019 8 - GI Upset Date Reviewed: 06/08/2020 Reviewed by: Federica Cardenas Ma - Fully Assessed Reason for Visit: Remote ILR Follow Up [1926] Visit Diagnosis:Supraventricular tachycardia (HCC) [I47.1] Prescriptions as of 06/11/2020 Sig: PREDNISONE 10 MG TABLET Take 3 tablets daily x 3 days* Patient not taking: Reported on 06/13/2020 AMOXICILLIN 500 MG CAPSULE 2000mg by mouth 1 hour prior * NORTRIPTYLINE 25 MG CAPSULE Take 25 mg by mouth daily at * ASMANEX TWISTHALER 220 MCG/AC* Inhale 1 Puff as instructed o* MOMETASONE 0.1 % TOPICAL CREAM Apply 1 application to affect* FLUTICASONE FUROATE 27.5 MCG/* Use 2 Sprays in each nostril * ALBUTEROL SULFATE HFA 90 MCG/* Inhale 2 Puffs as instructed * LEVOTHYROXINE 75 MCG TABLET Take 1 tablet by mouth once d* Patient taking differently: Take 50 mcg by mouth once fidel* VITAMINS A,C,J-DAWJ-DCRPAC 7* Take by mouth. ACETAMINOPHEN 500 MG TABLET Take one(1) tablet every four* GLYCOLAX 17 GRAM/DOSE ORAL PO* 1 cap full in 8 oz of liquid * Problem List As Of Date 06/11/2020 Noted Resolved Unspecified constipation [K59.00] 04/30/2006 03/16/2016 More... PEPTIC ULCER NOS [K27.9] 03/19/2007 More... More... GENERALIZED ANXIETY DIS [F41.1] Generalized osteoarthrosis, unspecified site [M* 12/23/2015 More... Myalgia and myositis [[id number]] 05/22/2017 More... Diverticulosis of large intestine [K57.30] More... Disorder of bone and cartilage [M89.9, M94.9] More... Hypothyroidism [E03.9] Hyperlipidemia LDL goal <130 [E78.5] More... Gout, unspecified [M10.9] 12/23/2015 More... PEPTIC ULCER NOS [K27.9] 03/19/2007 More... PAROX ATRIAL TACHYCARDIA [I47.1] 03/19/2007 More... Disturbances of sensation of smell and taste [R*02/13/2008 05/22/2017 Chronic maxillary sinusitis [J32.0] 02/13/2008 05/22/2017 More... Meniere's disease, unspecified [H81.09] 05/20/2008 03/16/2016 More... Dizziness and giddiness [R42] 05/13/2009 12/23/2015 Cervicalgia [M54.2] 05/13/2009 12/23/2015 Osteoarthritis of both knees [M17.0] Multinodular goiter [E04.2] More... Syncope and collapse [R55] 04/30/2014 12/23/2015 More... History of knee replacement, total [Z96.659] 12/23/2015 Ageusia [R43.2] 02/23/2016 05/22/2017 Glossitis [K14.0] 02/23/2016 05/22/2017 Mild intermittent asthma without complication [*03/16/2016 Paroxysmal supraventricular tachycardia (HCC) [* More... Nausea [R11.0] 03/20/2018 04/29/2019 More... Hernia of anterior abdominal wall [K43.9] 04/18/2020 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] 04/18/2020 BPPV (benign paroxysmal positional vertigo), un*04/22/2020 Encounter Status:Closed by DION CROWELL on 06/13/20[facility]06[facility] NoteProcedure (AKEPD) SACHI GRACE ([id number]) 1935 F NFR Date Time Provider Department 05/12/20 8:00 AM REM DEVICE CK AKEPD During your visit today, we recorded the following information about you: Referring Provider: KRYS REED [[id number]] Allergies As of Date: 05/12/2020 Noted Allergy Reaction VICODIN (HYDROCODONE-ACETAMINOPHE*05/04/2013 8 - GI Upset CODEINE 03/19/2007 8 - GI Upset PERCOCET (OXYCODONE-ACETAMINOPHEN)04/22/2013 8 - GI Upset SULFA (SULFONAMIDE ANTIBIOTICS) 03/19/2007 4 - Hives 7 - Swelling Comments: lips swelled up TETRACYCLINE 04/29/2019 8 - GI Upset Date Reviewed: 04/18/2020 Reviewed by: Mandy ([facility]) SABRINA Chan - Fully Assessed Reason for Visit: Remote Pacemaker Follow Up [1925] Visit Diagnosis:Syncope, unspecified syncope type [R55] Prescriptions as of 05/12/2020 Sig: NORTRIPTYLINE 25 MG CAPSULE Take 25 mg by mouth daily at * NORTRIPTYLINE 10 MG CAPSULE Take 10 mg by mouth daily at * MECLIZINE 12.5 MG TABLET Take 1 tablet by mouth three * ONDANSETRON HCL 4 MG TABLET Take 1 tablet by mouth every * ASMANEX TWISTHALER 220 MCG/AC* Inhale 1 Puff as instructed o* CYPROHEPTADINE 4 MG TABLET Take 1 tablet by mouth three * MOMETASONE 0.1 % TOPICAL CREAM Apply 1 application to affect* AMOXICILLIN 500 MG CAPSULE 2000mg by mouth 1 hour prior * FLUTICASONE FUROATE 27.5 MCG/* Use 2 Sprays in each nostril * ALBUTEROL SULFATE HFA 90 MCG/* Inhale 2 Puffs as instructed * LEVOTHYROXINE 75 MCG TABLET Take 1 tablet by mouth once d* Patient taking differently: Take 50 mcg by mouth once fidel* VITAMINS A,C,V-DUEC-EQMVAF 7* Take by mouth. ACETAMINOPHEN 500 MG TABLET Take one(1) tablet every four* GLYCOLAX 17 GRAM/DOSE ORAL PO* 1 cap full in 8 oz of liquid * Problem List As Of Date 05/12/2020 Noted Resolved Unspecified constipation [K59.00] 04/30/2006 03/16/2016 More... PEPTIC ULCER NOS [K27.9] 03/19/2007 More... More... GENERALIZED ANXIETY DIS [F41.1] Generalized osteoarthrosis, unspecified site [M* 12/23/2015 More... Myalgia and myositis [BCO1582] 05/22/2017 More... Diverticulosis of large intestine [K57.30] More... Disorder of bone and cartilage [M89.9, M94.9] More... Hypothyroidism [E03.9] Hyperlipidemia LDL goal <130 [E78.5] More... Gout, unspecified [M10.9] 12/23/2015 More... PEPTIC ULCER NOS [K27.9] 03/19/2007 More... PAROX ATRIAL TACHYCARDIA [I47.1] 03/19/2007 More... Disturbances of sensation of smell and taste [R*02/13/2008 05/22/2017 Chronic maxillary sinusitis [J32.0] 02/13/2008 05/22/2017 More... Meniere's disease, unspecified [H81.09] 05/20/2008 03/16/2016 More... Dizziness and giddiness [R42] 05/13/2009 12/23/2015 Cervicalgia [M54.2] 05/13/2009 12/23/2015 Osteoarthritis of both knees [M17.0] Multinodular goiter [E04.2] More... Syncope and collapse [R55] 04/30/2014 12/23/2015 More... History of knee replacement, total [Z96.659] 12/23/2015 Ageusia [R43.2] 02/23/2016 05/22/2017 Glossitis [K14.0] 02/23/2016 05/22/2017 Mild intermittent asthma without complication [*03/16/2016 Paroxysmal supraventricular tachycardia (HCC) [* More... Nausea [R11.0] 03/20/2018 04/29/2019 More... Hernia of anterior abdominal wall [K43.9] 04/18/2020 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] 04/18/2020 BPPV (benign paroxysmal positional vertigo), un*04/22/2020 Encounter Status:Closed by PRECIOUS COPELAND on 05/12/20[facility] 03-20-2018 History of Past illness Narrative* Problem Noted Date Resolved Date Nausea 03/20/2018 04/29/2019 Overview: Added automatically from request for surgery [id number] Ageusia 02/23/2016 05/22/2017 Glossitis 02/23/2016 05/22/2017 Syncope and collapse 04/30/2014 12/23/2015 Overview: [place] lightheaded, walked to cough and passed out for a few minutes. Witnessed by . No tongue biting, incontinence or post-ictal type confusion. orthostatic VS, EKG WNL Cardiac echo: CONCLUSIONS: - Exam indication: dyspnea - The left ventricle is normal in size. Left ventricular systolic function is hyperdynamic. EF = 70 5% (visual est.) - The right ventricle is normal in size. Right ventricular systolic function is normal. - Mild MAC with mild anterior mitral leaflet thickening. Trivial MR. - 1+ TR. RVSP 31mmHg. - Mild aortic sclerosis with trivial AI. - Trivial PI. - No prior echocardiographic exam available for comparison. Dizziness and giddiness 05/13/2009 12/23/19 16 Cervicalgia 05/13/2009 12/23/2015 Meniere's disease, unspecified 05/20/2008 0 03/16/2016 Overview: Dr. Torres Casanova, low-sodium diet, consider Dyazide if worse, per 05/09 Disturbances of sensation of smell and taste 05/22/2017 Chronic maxillary sinusitis 02/13/200805/03 Overview: [place]; saw Dr. Casanova re: ? Meniere's 05/09; LOW-SODIUM DIET (2 g, consider Dyazide) Unspecified constipation 04/30/2006 016 Overview: Dr. Juarez Peptic ulcer, unspecified si te, unspecified as acute or chronic, without mention of hemorrhage, perforation, or obstruction 03/19/2007 Overview: CAUSED BY FELDENE for 3 months Generalized osteoarthrosis, unspecified site 12/23/2015 Overview: knees Myalgia and myositis 05/22/2017 Overview: Dr. Guzman made dx () Gout, unspecified 12/23/2015 Overview: great toe, several episodes Peptic ulcer, unspecified si te, unspecified as acute or chronic, without mention of hemorrhage, perforation, or obstruction 03/19/2007 Overview: CAUSED BY FELDENE for 3 months Paroxysmal supraventricular tachycardia 03/19/2007 Overview: ablation 01/2002 (Dr. joseph pandey, [facility]), follows with Dr. Moreno (prn only) documented as of this encounter (statuses as of 04/06/2022) [facility]04-19-2018 History of Past illness Narrative* Problem Noted Date Resolved Date Nausea 03/20/2018 04/29/2019 Overview: Added automatically from request for surgery [id number] Ageusia 02/23/2016 05/22/2017 Glossitis 02/23/2016 05/22/2017 Syncope and collapse 04/30/2014 12/23/2015 Overview: [place] lightheaded, walked to cough and passed out for a few minutes. Witnessed by . No tongue biting, incontinence or post-ictal type confusion. orthostatic VS, EKG WNL Cardiac echo: CONCLUSIONS: - Exam indication: dyspnea - The left ventricle is normal in size. Left ventricular systolic function is hyperdynamic. EF = 70 5% (visual est.) - The right ventricle is normal in size. Right ventricular systolic function is normal. - Mild MAC with mild anterior mitral leaflet thickening. Trivial MR. - 1+ TR. RVSP 31mmHg. - Mild aortic sclerosis with trivial AI. - Trivial PI. - No prior echocardiographic exam available for comparison. Dizziness and giddiness 05/13/2009 12/23/19 16 Cervicalgia 05/13/2009 12/23/2015 Meniere's disease, unspecified 05/20/2008 0 03/16/2016 Overview: Dr. Torres Casanova, low-sodium diet, consider Dyazide if worse, per 05/09 Disturbances of sensation of smell and taste 05/22/2017 Chronic maxillary sinusitis 02/13/200805/03 Overview: [place]; saw Dr. Casanova re: ? Meniere's 05/09; LOW-SODIUM DIET (2 g, consider Dyazide) Unspecified constipation 04/30/2006 016 Overview: Dr. Juarez Peptic ulcer, unspecified si te, unspecified as acute or chronic, without mention of hemorrhage, perforation, or obstruction 03/19/2007 Overview: CAUSED BY FELDENE for 3 months Generalized osteoarthrosis, unspecified site 12/23/2015 Overview: knees Myalgia and myositis 05/22/2017 Overview: Dr. Guzman made dx () Gout, unspecified 12/23/2015 Overview: great toe, several episodes Peptic ulcer, unspecified si te, unspecified as acute or chronic, without mention of hemorrhage, perforation, or obstruction 03/19/2007 Overview: CAUSED BY FELDENE for 3 months Paroxysmal supraventricular tachycardia 03/19/2007 Overview: ablation 01/2002 (Dr. joseph pandey, [facility]), follows with Dr. Moreno (prn only) documented as of this encounter (statuses as of 04/06/2022) [facility]04-19[facility]2018 History of Past illness Narrative* Problem Noted Date Resolved Date Nausea 03/20/2018 04/29/2019 Overview: Added automatically from request for surgery [id number] Ageusia 02/23/2016 05/22/2017 Glossitis 02/23/2016 05/22/2017 Syncope and collapse 04/30/2014 12/23/2015 Overview: [place] lightheaded, walked to cough and passed out for a few minutes. Witnessed by . No tongue biting, incontinence or post-ictal type confusion. orthostatic VS, EKG WNL Cardiac echo: CONCLUSIONS: - Exam indication: dyspnea - The left ventricle is normal in size. Left ventricular systolic function is hyperdynamic. EF = 70 5% (visual est.) - The right ventricle is normal in size. Right ventricular systolic function is normal. - Mild MAC with mild anterior mitral leaflet thickening. Trivial MR. - 1+ TR. RVSP 31mmHg. - Mild aortic sclerosis with trivial AI. - Trivial PI. - No prior echocardiographic exam available for comparison. Dizziness and giddiness 05/13/2009 12/23/19 16 Cervicalgia 05/13/2009 12/23/2015 Meniere's disease, unspecified 05/20/2008 0 03/16/2016 Overview: Dr. Torres Casanova, low-sodium diet, consider Dyazide if worse, per 05/09 Disturbances of sensation of smell and taste 05/22/2017 Chronic maxillary sinusitis 02/13/200805/03 Overview: [place]; saw Dr. Casanova re: ? Meniere's 05/09; LOW-SODIUM DIET (2 g, consider Dyazide) Unspecified constipation 04/30/2006 016 Overview: Dr. Juarez Peptic ulcer, unspecified si te, unspecified as acute or chronic, without mention of hemorrhage, perforation, or obstruction 03/19/2007 Overview: CAUSED BY FELDENE for 3 months Generalized osteoarthrosis, unspecified site 12/23/2015 Overview: knees Myalgia and myositis 05/22/2017 Overview: Dr. Guzman made dx () Gout, unspecified 12/23/2015 Overview: great toe, several episodes Peptic ulcer, unspecified si te, unspecified as acute or chronic, without mention of hemorrhage, perforation, or obstruction 03/19/2007 Overview: CAUSED BY FELDENE for 3 months Paroxysmal supraventricular tachycardia 03/19/2007 Overview: ablation 01/2002 ( in [place], [facility]), follows with Dr. Moreno (prn only) documented as of this encounter (statuses as of 04/19/2022) [facility]2018 History of Past illness Narrative* Problem Noted Date Resolved Date Nausea 03/20/2018 04/29/2019 Overview: Added automatically from request for surgery [id number] Ageusia 02/23/2016 05/22/2017 Glossitis 02/23/2016 05/22/2017 Syncope and collapse 04/30/2014 12/23/2015 Overview: [place] lightheaded, walked to cough and passed out for a few minutes. Witnessed by . No tongue biting, incontinence or post-ictal type confusion. orthostatic VS, EKG WNL Cardiac echo: CONCLUSIONS: - Exam indication: dyspnea - The left ventricle is normal in size. Left ventricular systolic function is hyperdynamic. EF = 70 5% (visual est.) - The right ventricle is normal in size. Right ventricular systolic function is normal. - Mild MAC with mild anterior mitral leaflet thickening. Trivial MR. - 1+ TR. RVSP 31mmHg. - Mild aortic sclerosis with trivial AI. - Trivial PI. - No prior echocardiographic exam available for comparison. Dizziness and giddiness 05/13/2009 12/23/19 16 Cervicalgia 05/13/2009 12/23/2015 Meniere's disease, unspecified 05/20/2008 0 03/16/2016 Overview: Dr. Torres Casanova, low-sodium diet, consider Dyazide if worse, per 05/09 Disturbances of sensation of smell and taste 05/22/2017 Chronic maxillary sinusitis 02/13/200805/03 Overview: [place]; saw Dr. Casanova re: ? Meniere's 05/09; LOW-SODIUM DIET (2 g, consider Dyazide) Unspecified constipation 04/30/2006 016 Overview: Dr. Juarez Peptic ulcer, unspecified si te, unspecified as acute or chronic, without mention of hemorrhage, perforation, or obstruction 03/19/2007 Overview: CAUSED BY FELDENE for 3 months Generalized osteoarthrosis, unspecified site 12/23/2015 Overview: knees Myalgia and myositis 05/22/2017 Overview: Dr. Guzman made dx () Gout, unspecified 12/23/2015 Overview: great toe, several episodes Peptic ulcer, unspecified si te, unspecified as acute or chronic, without mention of hemorrhage, perforation, or obstruction 03/19/2007 Overview: CAUSED BY FELDENE for 3 months Paroxysmal supraventricular tachycardia 03/19/2007 Overview: ablation 01/2002 (Dr. joseph pandey, [facility]), follows with Dr. Moreno (prn only) documented as of this encounter (statuses as of 04/23/2022) [facility]2018 History of Past illness Narrative* Problem Noted Date Resolved Date Nausea 03/20/2018 04/29/2019 Overview: Added automatically from request for surgery [id number] Ageusia 02/23/2016 05/22/2017 Glossitis 02/23/2016 05/22/2017 Syncope and collapse 04/30/2014 12/23/2015 Overview: [place] lightheaded, walked to cough and passed out for a few minutes. Witnessed by . No tongue biting, incontinence or post-ictal type confusion. orthostatic VS, EKG WNL Cardiac echo: CONCLUSIONS: - Exam indication: dyspnea - The left ventricle is normal in size. Left ventricular systolic function is hyperdynamic. EF = 70 5% (visual est.) - The right ventricle is normal in size. Right ventricular systolic function is normal. - Mild MAC with mild anterior mitral leaflet thickening. Trivial MR. - 1+ TR. RVSP 31mmHg. - Mild aortic sclerosis with trivial AI. - Trivial PI. - No prior echocardiographic exam available for comparison. Dizziness and giddiness 05/13/2009 12/23/19 16 Cervicalgia 05/13/2009 12/23/2015 Meniere's disease, unspecified 05/20/2008 0 03/16/2016 Overview: Dr. Torres Casanova, low-sodium diet, consider Dyazide if worse, per 05/09 Disturbances of sensation of smell and taste 05/22/2017 Chronic maxillary sinusitis 02/13/200805/03 Overview: [place]; saw Dr. Casanova re: ? Meniere's 05/09; LOW-SODIUM DIET (2 g, consider Dyazide) Unspecified constipation 04/30/2006 016 Overview: Dr. Juarez Peptic ulcer, unspecified si te, unspecified as acute or chronic, without mention of hemorrhage, perforation, or obstruction 03/19/2007 Overview: CAUSED BY FELDENE for 3 months Generalized osteoarthrosis, unspecified site 12/23/2015 Overview: knees Myalgia and myositis 05/22/2017 Overview: Dr. Guzman made dx () Gout, unspecified 12/23/2015 Overview: great toe, several episodes Peptic ulcer, unspecified si te, unspecified as acute or chronic, without mention of hemorrhage, perforation, or obstruction 03/19/2007 Overview: CAUSED BY FELDENE for 3 months Paroxysmal supraventricular tachycardia 03/19/2007 Overview: ablation 01/2002 ( in [place], [facility]), follows with Dr. Moreno (prn only) documented as of this encounter (statuses as of 06/19/2022) [facility]04[facility]2018 History of Past illness Narrative* Problem Noted Date Resolved Date Nausea 03/20/2018 04/29/2019 Overview: Added automatically from request for surgery [id number] Ageusia 02/23/2016 05/22/2017 Glossitis 02/23/2016 05/22/2017 Syncope and collapse 04/30/2014 12/23/2015 Overview: [place] lightheaded, walked to cough and passed out for a few minutes. Witnessed by . No tongue biting, incontinence or post-ictal type confusion. orthostatic VS, EKG WNL Cardiac echo: CONCLUSIONS: - Exam indication: dyspnea - The left ventricle is normal in size. Left ventricular systolic function is hyperdynamic. EF = 70 5% (visual est.) - The right ventricle is normal in size. Right ventricular systolic function is normal. - Mild MAC with mild anterior mitral leaflet thickening. Trivial MR. - 1+ TR. RVSP 31mmHg. - Mild aortic sclerosis with trivial AI. - Trivial PI. - No prior echocardiographic exam available for comparison. Dizziness and giddiness 05/13/2009 12/23/19 16 Cervicalgia 05/13/2009 12/23/2015 Meniere's disease, unspecified 05/20/2008 0 03/16/2016 Overview: Dr. Torres Casanova, low-sodium diet, consider Dyazide if worse, per 05/09 Disturbances of sensation of smell and taste 05/22/2017 Chronic maxillary sinusitis 02/13/200805/03 Overview: [place]; saw Dr. Casanova re: ? Meniere's 05/09; LOW-SODIUM DIET (2 g, consider Dyazide) Unspecified constipation 04/30/2006 016 Overview: Dr. Juarez Peptic ulcer, unspecified si te, unspecified as acute or chronic, without mention of hemorrhage, perforation, or obstruction 03/19/2007 Overview: CAUSED BY FELDENE for 3 months Generalized osteoarthrosis, unspecified site 12/23/2015 Overview: knees Myalgia and myositis 05/22/2017 Overview: Dr. Guzman made dx () Gout, unspecified 12/23/2015 Overview: great toe, several episodes Peptic ulcer, unspecified si te, unspecified as acute or chronic, without mention of hemorrhage, perforation, or obstruction 03/19/2007 Overview: CAUSED BY FELDENE for 3 months Paroxysmal supraventricular tachycardia 03/19/2007 Overview: ablation 01/2002 (Dr. joseph pandey, [facility]), follows with Dr. Moreno (prn only) documented as of this encounter (statuses as of 07/30/2022) [facility] History of Past illness Narrative* Problem Noted Date Resolved Date Nausea 03/20/2018 04/29/2019 Overview: Added automatically from request for surgery [id number] Ageusia 02/23/2016 05/22/2017 Glossitis 02/23/2016 05/22/2017 Syncope and collapse 04/30/2014 12/23/2015 Overview: [place] lightheaded, walked to cough and passed out for a few minutes. Witnessed by . No tongue biting, incontinence or post-ictal type confusion. orthostatic VS, EKG WNL Cardiac echo: CONCLUSIONS: - Exam indication: dyspnea - The left ventricle is normal in size. Left ventricular systolic function is hyperdynamic. EF = 70 5% (visual est.) - The right ventricle is normal in size. Right ventricular systolic function is normal. - Mild MAC with mild anterior mitral leaflet thickening. Trivial MR. - 1+ TR. RVSP 31mmHg. - Mild aortic sclerosis with trivial AI. - Trivial PI. - No prior echocardiographic exam available for comparison. Dizziness and giddiness 05/13/2009 12/23/19 16 Cervicalgia 05/13/2009 12/23/2015 Meniere's disease, unspecified 05/20/2008 0 03/16/2016 Overview: Dr. Torres Casanova, low-sodium diet, consider Dyazide if worse, per 05/09 Disturbances of sensation of smell and taste 05/22/2017 Chronic maxillary sinusitis 02/13/200805/03 Overview: [place]; saw Dr. Casanova re: ? Meniere's 05/09; LOW-SODIUM DIET (2 g, consider Dyazide) Unspecified constipation 04/30/2006 016 Overview: Dr. Juarez Peptic ulcer, unspecified si te, unspecified as acute or chronic, without mention of hemorrhage, perforation, or obstruction 03/19/2007 Overview: CAUSED BY FELDENE for 3 months Generalized osteoarthrosis, unspecified site 12/23/2015 Overview: knees Myalgia and myositis 05/22/2017 Overview: Dr. Guzman made dx () Gout, unspecified 12/23/2015 Overview: great toe, several episodes Peptic ulcer, unspecified si te, unspecified as acute or chronic, without mention of hemorrhage, perforation, or obstruction 03/19/2007 Overview: CAUSED BY FELDENE for 3 months Paroxysmal supraventricular tachycardia 03/19/2007 Overview: ablation 01/2002 (Dr. joseph pandey, [facility]), follows with Dr. Moreno (prn only) documented as of this encounter (statuses as of 08/09/2022) [facility] History of Past illness Narrative* Problem Noted Date Resolved Date Nausea 03/20/2018 04/29/2019 Overview: Added automatically from request for surgery [id number] [place] 02/23/2016 05/22/2017 Glossitis 02/23/2016 05/22/2017 Syncope and collapse 04/30/2014 12/23/2015 Overview: [place] lightheaded, walked to cough and passed out for a few minutes. Witnessed by . No tongue biting, incontinence or post-ictal type confusion. orthostatic VS, EKG WNL Cardiac echo: CONCLUSIONS: - Exam indication: dyspnea - The left ventricle is normal in size. Left ventricular systolic function is hyperdynamic. EF = 70 5% (visual est.) - The right ventricle is normal in size. Right ventricular systolic function is normal. - Mild MAC with mild anterior mitral leaflet thickening. Trivial MR. - 1+ TR. RVSP 31mmHg. - Mild aortic sclerosis with trivial AI. - Trivial PI. - No prior echocardiographic exam available for comparison. Dizziness and giddiness 05/13/2009 12/23/19 16 Cervicalgia 05/13/2009 12/23/2015 Meniere's disease, unspecified 05/20/2008 0 03/16/2016 Overview: Dr. Torres Casanova, low-sodium diet, consider Dyazide if worse, per 05/09 Disturbances of sensation of smell and taste 05/22/2017 Chronic maxillary sinusitis 02/13/200805/03 Overview: [place]; saw Dr. Casanova re: ? Meniere's 05/09; LOW-SODIUM DIET (2 g, consider Dyazide) Unspecified constipation 04/30/2006 016 Overview: Dr. Juarez Peptic ulcer, unspecified si te, unspecified as acute or chronic, without mention of hemorrhage, perforation, or obstruction 03/19/2007 Overview: CAUSED BY FELDENE for 3 months Generalized osteoarthrosis, unspecified site 12/23/2015 Overview: knees Myalgia and myositis 05/22/2017 Overview: Dr. Guzman made dx () Gout, unspecified 12/23/2015 Overview: great toe, several episodes Peptic ulcer, unspecified si te, unspecified as acute or chronic, without mention of hemorrhage, perforation, or obstruction 03/19/2007 Overview: CAUSED BY FELDENE for 3 months Paroxysmal supraventricular tachycardia 03/19/2007 Overview: ablation 01/2002 ( in [place], [facility]), follows with Dr. Moreno (prn only) documented as of this encounter (statuses as of 08/14/2022) [facility] History of Past illness Narrative* Problem Noted Date Resolved Date Nausea 03/20/2018 04/29/2019 Overview: Added automatically from request for surgery [id number] [place] 02/23/2016 05/22/2017 Glossitis 02/23/2016 05/22/2017 Syncope and collapse 04/30/2014 12/23/2015 Overview: [place] lightheaded, walked to cough and passed out for a few minutes. Witnessed by . No tongue biting, incontinence or post-ictal type confusion. orthostatic VS, EKG WNL Cardiac echo: CONCLUSIONS: - Exam indication: dyspnea - The left ventricle is normal in size. Left ventricular systolic function is hyperdynamic. EF = 70 5% (visual est.) - The right ventricle is normal in size. Right ventricular systolic function is normal. - Mild MAC with mild anterior mitral leaflet thickening. Trivial MR. - 1+ TR. RVSP 31mmHg. - Mild aortic sclerosis with trivial AI. - Trivial PI. - No prior echocardiographic exam available for comparison. Dizziness and giddiness 05/13/2009 12/23/19 16 Cervicalgia 05/13/2009 12/23/2015 Meniere's disease, unspecified 05/20/2008 0 03/16/2016 Overview: Dr. Torres Casanova, low-sodium diet, consider Dyazide if worse, per 05/09 Disturbances of sensation of smell and taste 05/22/2017 Chronic maxillary sinusitis 02/13/200805/03 Overview: [place]; saw Dr. Casanova re: ? Meniere's 05/09; LOW-SODIUM DIET (2 g, consider Dyazide) Unspecified constipation 04/30/2006 016 Overview: Dr. Juarez Peptic ulcer, unspecified si te, unspecified as acute or chronic, without mention of hemorrhage, perforation, or obstruction 03/19/2007 Overview: CAUSED BY FELDENE for 3 months Generalized osteoarthrosis, unspecified site 12/23/2015 Overview: knees Myalgia and myositis 05/22/2017 Overview: Dr. Guzman made dx () Gout, unspecified 12/23/2015 Overview: great toe, several episodes Peptic ulcer, unspecified si te, unspecified as acute or chronic, without mention of hemorrhage, perforation, or obstruction 03/19/2007 Overview: CAUSED BY FELDENE for 3 months Paroxysmal supraventricular tachycardia 03/19/2007 Overview: ablation 01/2002 (Dr. joseph pandey, [facility]), follows with Dr. Moreno (prn only) documented as of this encounter (statuses as of 09/03/2022) [facility] History of Past illness Narrative* Problem Noted Date Resolved Date Nausea 03/20/2018 04/29/2019 Overview: Added automatically from request for surgery [id number] [place] 02/23/2016 05/22/2017 Glossitis 02/23/2016 05/22/2017 Syncope and collapse 04/30/2014 12/23/2015 Overview: [place] lightheaded, walked to cough and passed out for a few minutes. Witnessed by . No tongue biting, incontinence or post-ictal type confusion. orthostatic VS, EKG WNL Cardiac echo: CONCLUSIONS: - Exam indication: dyspnea - The left ventricle is normal in size. Left ventricular systolic function is hyperdynamic. EF = 70 5% (visual est.) - The right ventricle is normal in size. Right ventricular systolic function is normal. - Mild MAC with mild anterior mitral leaflet thickening. Trivial MR. - 1+ TR. RVSP 31mmHg. - Mild aortic sclerosis with trivial AI. - Trivial PI. - No prior echocardiographic exam available for comparison. Dizziness and giddiness 05/13/2009 12/23/19 16 Cervicalgia 05/13/2009 12/23/2015 Meniere's disease, unspecified 05/20/2008 0 03/16/2016 Overview: Dr. Torres Casanova, low-sodium diet, consider Dyazide if worse, per 05/09 Disturbances of sensation of smell and taste 05/22/2017 Chronic maxillary sinusitis 02/13/200805/03 Overview: [place]; saw Dr. Casanova re: ? Meniere's 05/09; LOW-SODIUM DIET (2 g, consider Dyazide) Unspecified constipation 04/30/2006 016 Overview: Dr. Juarez Peptic ulcer, unspecified si te, unspecified as acute or chronic, without mention of hemorrhage, perforation, or obstruction 03/19/2007 Overview: CAUSED BY FELDENE for 3 months Generalized osteoarthrosis, unspecified site 12/23/2015 Overview: knees Myalgia and myositis 05/22/2017 Overview: Dr. Guzman made dx () Gout, unspecified 12/23/2015 Overview: great toe, several episodes Peptic ulcer, unspecified si te, unspecified as acute or chronic, without mention of hemorrhage, perforation, or obstruction 03/19/2007 Overview: CAUSED BY FELDENE for 3 months Paroxysmal supraventricular tachycardia 03/19/2007 Overview: ablation 01/2002 ( in [place], [facility]), follows with Dr. Moreno (prn only) documented as of this encounter (statuses as of 10/02/2022) [facility] Past illness Narrative* Problem Noted Date Resolved Date Nausea 03/20/2018 04/29/2019 Overview: Added automatically from request for surgery [id number] [place] 02/23/2016 05/22/2017 Glossitis 02/23/2016 05/22/2017 Syncope and collapse 04/30/2014 12/23/2015 Overview: [place] lightheaded, walked to cough and passed out for a few minutes. Witnessed by . No tongue biting, incontinence or post-ictal type confusion. orthostatic VS, EKG WNL Cardiac echo: CONCLUSIONS: - Exam indication: dyspnea - The left ventricle is normal in size. Left ventricular systolic function is hyperdynamic. EF = 70 5% (visual est.) - The right ventricle is normal in size. Right ventricular systolic function is normal. - Mild MAC with mild anterior mitral leaflet thickening. Trivial MR. - 1+ TR. RVSP 31mmHg. - Mild aortic sclerosis with trivial AI. - Trivial PI. - No prior echocardiographic exam available for comparison. Dizziness and giddiness 05/13/2009 12/23/19 16 Cervicalgia 05/13/2009 12/23/2015 Meniere's disease, unspecified 05/20/2008 0 03/16/2016 Overview: Dr. Torres Casanova, low-sodium diet, consider Dyazide if worse, per 05/09 Disturbances of sensation of smell and taste 05/22/2017 Chronic maxillary sinusitis 02/13/200805/03 Overview: [place]; saw Dr. Casanova re: ? Meniere's 05/09; LOW-SODIUM DIET (2 g, consider Dyazide) Unspecified constipation 04/30/2006 016 Overview: Dr. Juarez Peptic ulcer, unspecified si te, unspecified as acute or chronic, without mention of hemorrhage, perforation, or obstruction 03/19/2007 Overview: CAUSED BY FELDENE for 3 months Generalized osteoarthrosis, unspecified site 12/23/2015 Overview: knees Myalgia and myositis 05/22/2017 Overview: Dr. Guzman made dx () Gout, unspecified 12/23/2015 Overview: great toe, several episodes Peptic ulcer, unspecified si te, unspecified as acute or chronic, without mention of hemorrhage, perforation, or obstruction 03/19/2007 Overview: CAUSED BY FELDENE for 3 months Paroxysmal supraventricular tachycardia 03/19/2007 Overview: ablation 01/2002 (Dr. joseph pandey, [facility]), follows with Dr. Moreno (prn only) documented as of this encounter (statuses as of 10/16/2022) [facility]04-19-2018 History of Past illness Narrative* Problem Noted Date Resolved Date Nausea 03/20/2018 04/29/2019 Overview: Added automatically from request for surgery [id number] Ageusia 02/23/2016 05/22/2017 Glossitis 02/23/2016 05/22/2017 Syncope and collapse 04/30/2014 12/23/2015 Overview: [place] lightheaded, walked to cough and passed out for a few minutes. Witnessed by . No tongue biting, incontinence or post-ictal type confusion. orthostatic VS, EKG WNL Cardiac echo: CONCLUSIONS: - Exam indication: dyspnea - The left ventricle is normal in size. Left ventricular systolic function is hyperdynamic. EF = 70 5% (visual est.) - The right ventricle is normal in size. Right ventricular systolic function is normal. - Mild MAC with mild anterior mitral leaflet thickening. Trivial MR. - 1+ TR. RVSP 31mmHg. - Mild aortic sclerosis with trivial AI. - Trivial PI. - No prior echocardiographic exam available for comparison. Dizziness and giddiness 05/13/2009 12/23/19 16 Cervicalgia 05/13/2009 12/23/2015 Meniere's disease, unspecified 05/20/2008 0 03/16/2016 Overview: Dr. Torres Casanova, low-sodium diet, consider Dyazide if worse, per 05/09 Disturbances of sensation of smell and taste 05/22/2017 Chronic maxillary sinusitis 02/13/200805/03 Overview: [place]; saw Dr. Casanova re: ? Meniere's 05/09; LOW-SODIUM DIET (2 g, consider Dyazide) Unspecified constipation 04/30/2006 016 Overview: Dr. Juarez Peptic ulcer, unspecified si te, unspecified as acute or chronic, without mention of hemorrhage, perforation, or obstruction 03/19/2007 Overview: CAUSED BY FELDENE for 3 months Generalized osteoarthrosis, unspecified site 12/23/2015 Overview: knees Myalgia and myositis 05/22/2017 Overview: Dr. Guzman made dx () Gout, unspecified 12/23/2015 Overview: great toe, several episodes Peptic ulcer, unspecified si te, unspecified as acute or chronic, without mention of hemorrhage, perforation, or obstruction 03/19/2007 Overview: CAUSED BY FELDENE for 3 months Paroxysmal supraventricular tachycardia 03/19/2007 Overview: ablation 01/2002 (Dr. joseph pandey, [facility]), follows with Dr. Mroeno (prn only) documented as of this encounter (statuses as of 11/06/2022) [facility]04-19[facility]2018 History of Past illness Narrative* Problem Noted Date Resolved Date Nausea 03/20/2018 04/29/2019 Overview: Added automatically from request for surgery [id number] Ageusia 02/23/2016 05/22/2017 Glossitis 02/23/2016 05/22/2017 Syncope and collapse 04/30/2014 12/23/2015 Overview: [place] lightheaded, walked to cough and passed out for a few minutes. Witnessed by . No tongue biting, incontinence or post-ictal type confusion. orthostatic VS, EKG WNL Cardiac echo: CONCLUSIONS: - Exam indication: dyspnea - The left ventricle is normal in size. Left ventricular systolic function is hyperdynamic. EF = 70 5% (visual est.) - The right ventricle is normal in size. Right ventricular systolic function is normal. - Mild MAC with mild anterior mitral leaflet thickening. Trivial MR. - 1+ TR. RVSP 31mmHg. - Mild aortic sclerosis with trivial AI. - Trivial PI. - No prior echocardiographic exam available for comparison. Dizziness and giddiness 05/13/2009 12/23/19 16 Cervicalgia 05/13/2009 12/23/2015 Meniere's disease, unspecified 05/20/2008 0 03/16/2016 Overview: Dr. Torres Casanova, low-sodium diet, consider Dyazide if worse, per 05/09 Disturbances of sensation of smell and taste 05/22/2017 Chronic maxillary sinusitis 02/13/200805/03 Overview: [place]; saw Dr. Casanova re: ? Meniere's 05/09; LOW-SODIUM DIET (2 g, consider Dyazide) Unspecified constipation 04/30/2006 016 Overview: Dr. Juarez Peptic ulcer, unspecified si te, unspecified as acute or chronic, without mention of hemorrhage, perforation, or obstruction 03/19/2007 Overview: CAUSED BY FELDENE for 3 months Generalized osteoarthrosis, unspecified site 12/23/2015 Overview: knees Myalgia and myositis 05/22/2017 Overview: Dr. Guzman made dx () Gout, unspecified 12/23/2015 Overview: great toe, several episodes Peptic ulcer, unspecified si te, unspecified as acute or chronic, without mention of hemorrhage, perforation, or obstruction 03/19/2007 Overview: CAUSED BY FELDENE for 3 months Paroxysmal supraventricular tachycardia 03/19/2007 Overview: ablation 01/2002 ( in [place], [facility]), follows with Dr. Moreno (prn only) documented as of this encounter (statuses as of 11/09/2022) [facility] History of Past illness Narrative* Problem Noted Date Resolved Date Nausea 03/20/2018 04/29/2019 Overview: Added automatically from request for surgery [id number] Ageusia 02/23/2016 05/22/2017 Glossitis 02/23/2016 05/22/2017 Syncope and collapse 04/30/2014 12/23/2015 Overview: [place] lightheaded, walked to cough and passed out for a few minutes. Witnessed by . No tongue biting, incontinence or post-ictal type confusion. orthostatic VS, EKG WNL Cardiac echo: CONCLUSIONS: - Exam indication: dyspnea - The left ventricle is normal in size. Left ventricular systolic function is hyperdynamic. EF = 70 5% (visual est.) - The right ventricle is normal in size. Right ventricular systolic function is normal. - Mild MAC with mild anterior mitral leaflet thickening. Trivial MR. - 1+ TR. RVSP 31mmHg. - Mild aortic sclerosis with trivial AI. - Trivial PI. - No prior echocardiographic exam available for comparison. Dizziness and giddiness 05/13/2009 12/23/19 16 Cervicalgia 05/13/2009 12/23/2015 Meniere's disease, unspecified 05/20/2008 0 03/16/2016 Overview: Dr. Torres Casanova, low-sodium diet, consider Dyazide if worse, per 05/09 Disturbances of sensation of smell and taste 05/22/2017 Chronic maxillary sinusitis 02/13/200805/03 Overview: [place]; saw Dr. Casanova re: ? Meniere's 05/09; LOW-SODIUM DIET (2 g, consider Dyazide) Unspecified constipation 04/30/2006 016 Overview: Dr. Juarez Peptic ulcer, unspecified si te, unspecified as acute or chronic, without mention of hemorrhage, perforation, or obstruction 03/19/2007 Overview: CAUSED BY FELDENE for 3 months Generalized osteoarthrosis, unspecified site 12/23/2015 Overview: knees Myalgia and myositis 05/22/2017 Overview: Dr. Guzman made dx () Gout, unspecified 12/23/2015 Overview: great toe, several episodes Peptic ulcer, unspecified si te, unspecified as acute or chronic, without mention of hemorrhage, perforation, or obstruction 03/19/2007 Overview: CAUSED BY FELDENE for 3 months Paroxysmal supraventricular tachycardia 03/19/2007 Overview: ablation 01/2002 (Dr. joseph pandey, [facility]), follows with Dr. Moreno (prn only) documented as of this encounter (statuses as of 11/09/2022) [facility]2018 History of Past illness Narrative* Problem Noted Date Resolved Date Nausea 03/20/2018 04/29/2019 Overview: Added automatically from request for surgery [id number] Ageusia 02/23/2016 05/22/2017 Glossitis 02/23/2016 05/22/2017 Syncope and collapse 04/30/2014 12/23/2015 Overview: [place] lightheaded, walked to cough and passed out for a few minutes. Witnessed by . No tongue biting, incontinence or post-ictal type confusion. orthostatic VS, EKG WNL Cardiac echo: CONCLUSIONS: - Exam indication: dyspnea - The left ventricle is normal in size. Left ventricular systolic function is hyperdynamic. EF = 70 5% (visual est.) - The right ventricle is normal in size. Right ventricular systolic function is normal. - Mild MAC with mild anterior mitral leaflet thickening. Trivial MR. - 1+ TR. RVSP 31mmHg. - Mild aortic sclerosis with trivial AI. - Trivial PI. - No prior echocardiographic exam available for comparison. Dizziness and giddiness 05/13/2009 12/23/19 16 Cervicalgia 05/13/2009 12/23/2015 Meniere's disease, unspecified 05/20/2008 0 03/16/2016 Overview: Dr. Torres Casanova, low-sodium diet, consider Dyazide if worse, per 05/09 Disturbances of sensation of smell and taste 05/22/2017 Chronic maxillary sinusitis 02/13/200805/03 Overview: [place]; saw Dr. Casanova re: ? Meniere's 05/09; LOW-SODIUM DIET (2 g, consider Dyazide) Unspecified constipation 04/30/2006 016 Overview: Dr. Juarez Peptic ulcer, unspecified si te, unspecified as acute or chronic, without mention of hemorrhage, perforation, or obstruction 03/19/2007 Overview: CAUSED BY FELDENE for 3 months Generalized osteoarthrosis, unspecified site 12/23/2015 Overview: knees Myalgia and myositis 05/22/2017 Overview: Dr. Guzman made dx () Gout, unspecified 12/23/2015 Overview: great toe, several episodes Peptic ulcer, unspecified si te, unspecified as acute or chronic, without mention of hemorrhage, perforation, or obstruction 03/19/2007 Overview: CAUSED BY FELDENE for 3 months Paroxysmal supraventricular tachycardia 03/19/2007 Overview: ablation 01/2002 ( in [place], [facility]), follows with Dr. Moreno (prn only) documented as of this encounter (statuses as of 11/13/2022) [facility] History of Past illness Narrative* Problem Noted Date Resolved Date Nausea 03/20/2018 04/29/2019 Overview: Added automatically from request for surgery [id number] Ageusia 02/23/2016 05/22/2017 Glossitis 02/23/2016 05/22/2017 Syncope and collapse 04/30/2014 12/23/2015 Overview: [place] lightheaded, walked to cough and passed out for a few minutes. Witnessed by . No tongue biting, incontinence or post-ictal type confusion. orthostatic VS, EKG WNL Cardiac echo: CONCLUSIONS: - Exam indication: dyspnea - The left ventricle is normal in size. Left ventricular systolic function is hyperdynamic. EF = 70 5% (visual est.) - The right ventricle is normal in size. Right ventricular systolic function is normal. - Mild MAC with mild anterior mitral leaflet thickening. Trivial MR. - 1+ TR. RVSP 31mmHg. - Mild aortic sclerosis with trivial AI. - Trivial PI. - No prior echocardiographic exam available for comparison. Dizziness and giddiness 05/13/2009 12/23/19 16 Cervicalgia 05/13/2009 12/23/2015 Meniere's disease, unspecified 05/20/2008 0 03/16/2016 Overview: Dr. Torres Casanova, low-sodium diet, consider Dyazide if worse, per 05/09 Disturbances of sensation of smell and taste 05/22/2017 Chronic maxillary sinusitis 02/13/200805/03 Overview: [place]; saw Dr. Casanova re: ? Meniere's 05/09; LOW-SODIUM DIET (2 g, consider Dyazide) Unspecified constipation 04/30/2006 016 Overview: Dr. Juarez Peptic ulcer, unspecified si te, unspecified as acute or chronic, without mention of hemorrhage, perforation, or obstruction 03/19/2007 Overview: CAUSED BY FELDENE for 3 months Generalized osteoarthrosis, unspecified site 12/23/2015 Overview: knees Myalgia and myositis 05/22/2017 Overview: Dr. Guzman made dx () Gout, unspecified 12/23/2015 Overview: great toe, several episodes Peptic ulcer, unspecified si te, unspecified as acute or chronic, without mention of hemorrhage, perforation, or obstruction 03/19/2007 Overview: CAUSED BY FELDENE for 3 months Paroxysmal supraventricular tachycardia 03/19/2007 Overview: ablation 01/2002 (Dr. joseph pandey, [facility]), follows with Dr. Moreno (prn only) documented as of this encounter (statuses as of 11/14/2022) [facility]2018 History of Past illness Narrative* Problem Noted Date Resolved Date Nausea 03/20/2018 04/29/2019 Overview: Added automatically from request for surgery [id number] Ageusia 02/23/2016 05/22/2017 Glossitis 02/23/2016 05/22/2017 Syncope and collapse 04/30/2014 12/23/2015 Overview: [place] lightheaded, walked to cough and passed out for a few minutes. Witnessed by . No tongue biting, incontinence or post-ictal type confusion. orthostatic VS, EKG WNL Cardiac echo: CONCLUSIONS: - Exam indication: dyspnea - The left ventricle is normal in size. Left ventricular systolic function is hyperdynamic. EF = 70 5% (visual est.) - The right ventricle is normal in size. Right ventricular systolic function is normal. - Mild MAC with mild anterior mitral leaflet thickening. Trivial MR. - 1+ TR. RVSP 31mmHg. - Mild aortic sclerosis with trivial AI. - Trivial PI. - No prior echocardiographic exam available for comparison. Dizziness and giddiness 05/13/2009 12/23/19 16 Cervicalgia 05/13/2009 12/23/2015 Meniere's disease, unspecified 05/20/2008 0 03/16/2016 Overview: Dr. Torres Casanova, low-sodium diet, consider Dyazide if worse, per 05/09 Disturbances of sensation of smell and taste 05/22/2017 Chronic maxillary sinusitis 02/13/200805/03 Overview: [place]; saw Dr. Casanova re: ? Meniere's 05/09; LOW-SODIUM DIET (2 g, consider Dyazide) Unspecified constipation 04/30/2006 016 Overview: Dr. Juarez Peptic ulcer, unspecified si te, unspecified as acute or chronic, without mention of hemorrhage, perforation, or obstruction 03/19/2007 Overview: CAUSED BY FELDENE for 3 months Generalized osteoarthrosis, unspecified site 12/23/2015 Overview: knees Myalgia and myositis 05/22/2017 Overview: Dr. Guzman made dx () Gout, unspecified 12/23/2015 Overview: great toe, several episodes Peptic ulcer, unspecified si te, unspecified as acute or chronic, without mention of hemorrhage, perforation, or obstruction 03/19/2007 Overview: CAUSED BY FELDENE for 3 months Paroxysmal supraventricular tachycardia 03/19/2007 Overview: ablation 01/2002 (Dr. joseph pandey, [facility]), follows with Dr. Moreno (prn only) documented as of this encounter (statuses as of 11/19/2022) [facility] History of Past illness Narrative* Problem Noted Date Resolved Date Nausea 03/20/2018 04/29/2019 Overview: Added automatically from request for surgery [id number] Ageusia 02/23/2016 05/22/2017 Glossitis 02/23/2016 05/22/2017 Syncope and collapse 04/30/2014 12/23/2015 Overview: [place] lightheaded, walked to cough and passed out for a few minutes. Witnessed by . No tongue biting, incontinence or post-ictal type confusion. orthostatic VS, EKG WNL Cardiac echo: CONCLUSIONS: - Exam indication: dyspnea - The left ventricle is normal in size. Left ventricular systolic function is hyperdynamic. EF = 70 5% (visual est.) - The right ventricle is normal in size. Right ventricular systolic function is normal. - Mild MAC with mild anterior mitral leaflet thickening. Trivial MR. - 1+ TR. RVSP 31mmHg. - Mild aortic sclerosis with trivial AI. - Trivial PI. - No prior echocardiographic exam available for comparison. Dizziness and giddiness 05/13/2009 12/23/19 16 Cervicalgia 05/13/2009 12/23/2015 Meniere's disease, unspecified 05/20/2008 0 03/16/2016 Overview: Dr. Torres Casanova, low-sodium diet, consider Dyazide if worse, per 05/09 Disturbances of sensation of smell and taste 05/22/2017 Chronic maxillary sinusitis 02/13/200805/03 Overview: [place]; saw Dr. Casanova re: ? Meniere's 05/09; LOW-SODIUM DIET (2 g, consider Dyazide) Unspecified constipation 04/30/2006 016 Overview: Dr. Juarez Peptic ulcer, unspecified si te, unspecified as acute or chronic, without mention of hemorrhage, perforation, or obstruction 03/19/2007 Overview: CAUSED BY FELDENE for 3 months Generalized osteoarthrosis, unspecified site 12/23/2015 Overview: knees Myalgia and myositis 05/22/2017 Overview: Dr. Guzman made dx () Gout, unspecified 12/23/2015 Overview: great toe, several episodes Peptic ulcer, unspecified si te, unspecified as acute or chronic, without mention of hemorrhage, perforation, or obstruction 03/19/2007 Overview: CAUSED BY FELDENE for 3 months Paroxysmal supraventricular tachycardia 03/19/2007 Overview: ablation 01/2002 ( in [place], [facility]), follows with Dr. Moreno (prn only) documented as of this encounter (statuses as of 12/02/2022) [facility] History of Past illness Narrative* Problem Noted Date Resolved Date Nausea 03/20/2018 04/29/2019 Overview: Added automatically from request for surgery [id number] Ageusia 02/23/2016 05/22/2017 Glossitis 02/23/2016 05/22/2017 Syncope and collapse 04/30/2014 12/23/2015 Overview: [place] lightheaded, walked to cough and passed out for a few minutes. Witnessed by . No tongue biting, incontinence or post-ictal type confusion. orthostatic VS, EKG WNL Cardiac echo: CONCLUSIONS: - Exam indication: dyspnea - The left ventricle is normal in size. Left ventricular systolic function is hyperdynamic. EF = 70 5% (visual est.) - The right ventricle is normal in size. Right ventricular systolic function is normal. - Mild MAC with mild anterior mitral leaflet thickening. Trivial MR. - 1+ TR. RVSP 31mmHg. - Mild aortic sclerosis with trivial AI. - Trivial PI. - No prior echocardiographic exam available for comparison. Dizziness and giddiness 05/13/2009 12/23/19 16 Cervicalgia 05/13/2009 12/23/2015 Meniere's disease, unspecified 05/20/2008 0 03/16/2016 Overview: Dr. Torres Casanova, low-sodium diet, consider Dyazide if worse, per 05/09 Disturbances of sensation of smell and taste 05/22/2017 Chronic maxillary sinusitis 02/13/200805/03 Overview: [place]; saw Dr. Casanova re: ? Meniere's 05/09; LOW-SODIUM DIET (2 g, consider Dyazide) Unspecified constipation 04/30/2006 016 Overview: Dr. Juarez Peptic ulcer, unspecified si te, unspecified as acute or chronic, without mention of hemorrhage, perforation, or obstruction 03/19/2007 Overview: CAUSED BY FELDENE for 3 months Generalized osteoarthrosis, unspecified site 12/23/2015 Overview: knees Myalgia and myositis 05/22/2017 Overview: Dr. Guzman made dx () Gout, unspecified 12/23/2015 Overview: great toe, several episodes Peptic ulcer, unspecified si te, unspecified as acute or chronic, without mention of hemorrhage, perforation, or obstruction 03/19/2007 Overview: CAUSED BY FELDENE for 3 months Paroxysmal supraventricular tachycardia 03/19/2007 Overview: ablation 01/2002 (Dr. joseph pandey, [facility]), follows with Dr. Moreno (prn only) documented as of this encounter (statuses as of 12/14/2022) [facility] History of Past illness Narrative* Problem Noted Date Resolved Date Nausea 03/20/2018 04/29/2019 Overview: Added automatically from request for surgery [id number] [place]usia 02/23/2016 05/22/2017 Glossitis 02/23/2016 05/22/2017 Syncope and collapse 04/30/2014 12/23/2015 Overview: [place] lightheaded, walked to cough and passed out for a few minutes. Witnessed by . No tongue biting, incontinence or post-ictal type confusion. orthostatic VS, EKG WNL Cardiac echo: CONCLUSIONS: - Exam indication: dyspnea - The left ventricle is normal in size. Left ventricular systolic function is hyperdynamic. EF = 70 5% (visual est.) - The right ventricle is normal in size. Right ventricular systolic function is normal. - Mild MAC with mild anterior mitral leaflet thickening. Trivial MR. - 1+ TR. RVSP 31mmHg. - Mild aortic sclerosis with trivial AI. - Trivial PI. - No prior echocardiographic exam available for comparison. Dizziness and giddiness 05/13/2009 12/23/19 16 Cervicalgia 05/13/2009 12/23/2015 Meniere's disease, unspecified 05/20/2008 0 03/16/2016 Overview: Dr. Torres Casanova, low-sodium diet, consider Dyazide if worse, per 05/09 Disturbances of sensation of smell and taste 05/22/2017 Chronic maxillary sinusitis 02/13/200805/03 Overview: [place]; saw Dr. Casanova re: ? Meniere's 05/09; LOW-SODIUM DIET (2 g, consider Dyazide) Unspecified constipation 04/30/2006 016 Overview: Dr. Juarez Peptic ulcer, unspecified si te, unspecified as acute or chronic, without mention of hemorrhage, perforation, or obstruction 03/19/2007 Overview: CAUSED BY FELDENE for 3 months Generalized osteoarthrosis, unspecified site 12/23/2015 Overview: knees Myalgia and myositis 05/22/2017 Overview: Dr. Guzman made dx () Gout, unspecified 12/23/2015 Overview: great toe, several episodes Peptic ulcer, unspecified si te, unspecified as acute or chronic, without mention of hemorrhage, perforation, or obstruction 03/19/2007 Overview: CAUSED BY FELDENE for 3 months Paroxysmal supraventricular tachycardia 03/19/2007 Overview: ablation 01/2002 ( in [place], [facility]), follows with Dr. Moreno (prn only) documented as of this encounter (statuses as of 12/25/2022) [facility] History of Past illness Narrative* Problem Noted Date Resolved Date Nausea 03/20/2018 04/29/2019 Overview: Added automatically from request for surgery [id number] [place]usia 02/23/2016 05/22/2017 Glossitis 02/23/2016 05/22/2017 Syncope and collapse 04/30/2014 12/23/2015 Overview: [place] lightheaded, walked to cough and passed out for a few minutes. Witnessed by . No tongue biting, incontinence or post-ictal type confusion. orthostatic VS, EKG WNL Cardiac echo: CONCLUSIONS: - Exam indication: dyspnea - The left ventricle is normal in size. Left ventricular systolic function is hyperdynamic. EF = 70 5% (visual est.) - The right ventricle is normal in size. Right ventricular systolic function is normal. - Mild MAC with mild anterior mitral leaflet thickening. Trivial MR. - 1+ TR. RVSP 31mmHg. - Mild aortic sclerosis with trivial AI. - Trivial PI. - No prior echocardiographic exam available for comparison. Dizziness and giddiness 05/13/2009 12/23/19 16 Cervicalgia 05/13/2009 12/23/2015 Meniere's disease, unspecified 05/20/2008 0 03/16/2016 Overview: Dr. Torres Casanova, low-sodium diet, consider Dyazide if worse, per 05/09 Disturbances of sensation of smell and taste 05/22/2017 Chronic maxillary sinusitis 02/13/200805/03 Overview: [place]; saw Dr. Casanova re: ? Meniere's 05/09; LOW-SODIUM DIET (2 g, consider Dyazide) Unspecified constipation 04/30/2006 016 Overview: Dr. Juarez Peptic ulcer, unspecified si te, unspecified as acute or chronic, without mention of hemorrhage, perforation, or obstruction 03/19/2007 Overview: CAUSED BY FELDENE for 3 months Generalized osteoarthrosis, unspecified site 12/23/2015 Overview: knees Myalgia and myositis 05/22/2017 Overview: Dr. Guzman made dx () Gout, unspecified 12/23/2015 Overview: great toe, several episodes Peptic ulcer, unspecified si te, unspecified as acute or chronic, without mention of hemorrhage, perforation, or obstruction 03/19/2007 Overview: CAUSED BY FELDENE for 3 months Paroxysmal supraventricular tachycardia 03/19/2007 Overview: ablation 01/2002 (Dr. joseph pandey, [facility]), follows with Dr. Moreno (prn only) documented as of this encounter (statuses as of 01/05/2023) [facility] History of Past illness Narrative* Problem Noted Date Resolved Date Nausea 03/20/2018 04/29/2019 Overview: Added automatically from request for surgery [id number] Ageusia 02/23/2016 05/22/2017 Glossitis 02/23/2016 05/22/2017 Syncope and collapse 04/30/2014 12/23/2015 Overview: [place] lightheaded, walked to cough and passed out for a few minutes. Witnessed by . No tongue biting, incontinence or post-ictal type confusion. orthostatic VS, EKG WNL Cardiac echo: CONCLUSIONS: - Exam indication: dyspnea - The left ventricle is normal in size. Left ventricular systolic function is hyperdynamic. EF = 70 5% (visual est.) - The right ventricle is normal in size. Right ventricular systolic function is normal. - Mild MAC with mild anterior mitral leaflet thickening. Trivial MR. - 1+ TR. RVSP 31mmHg. - Mild aortic sclerosis with trivial AI. - Trivial PI. - No prior echocardiographic exam available for comparison. Dizziness and giddiness 05/13/2009 12/23/19 16 Cervicalgia 05/13/2009 12/23/2015 Meniere's disease, unspecified 05/20/2008 0 03/16/2016 Overview: Dr. Torres Casanova, low-sodium diet, consider Dyazide if worse, per 05/09 Disturbances of sensation of smell and taste 05/22/2017 Chronic maxillary sinusitis 02/13/200805/03 Overview: [place]; saw Dr. Casanova re: ? Meniere's 05/09; LOW-SODIUM DIET (2 g, consider Dyazide) Unspecified constipation 04/30/2006 016 Overview: Dr. Juarez Peptic ulcer, unspecified si te, unspecified as acute or chronic, without mention of hemorrhage, perforation, or obstruction 03/19/2007 Overview: CAUSED BY FELDENE for 3 months Generalized osteoarthrosis, unspecified site 12/23/2015 Overview: knees Myalgia and myositis 05/22/2017 Overview: Dr. Guzman made dx () Gout, unspecified 12/23/2015 Overview: great toe, several episodes Peptic ulcer, unspecified si te, unspecified as acute or chronic, without mention of hemorrhage, perforation, or obstruction 03/19/2007 Overview: CAUSED BY FELDENE for 3 months Paroxysmal supraventricular tachycardia 03/19/2007 Overview: ablation 01/2002 (Dr. joseph pandey, [facility]), follows with Dr. Moreno (prn only) documented as of this encounter (statuses as of 01/22/2023) [facility]04-19-2018 History of Past illness Narrative* Problem Noted Date Resolved Date Nausea 03/20/2018 04/29/2019 Overview: Added automatically from request for surgery [id number] Ageusia 02/23/2016 05/22/2017 Glossitis 02/23/2016 05/22/2017 Syncope and collapse 04/30/2014 12/23/2015 Overview: [place] lightheaded, walked to cough and passed out for a few minutes. Witnessed by . No tongue biting, incontinence or post-ictal type confusion. orthostatic VS, EKG WNL Cardiac echo: CONCLUSIONS: - Exam indication: dyspnea - The left ventricle is normal in size. Left ventricular systolic function is hyperdynamic. EF = 70 5% (visual est.) - The right ventricle is normal in size. Right ventricular systolic function is normal. - Mild MAC with mild anterior mitral leaflet thickening. Trivial MR. - 1+ TR. RVSP 31mmHg. - Mild aortic sclerosis with trivial AI. - Trivial PI. - No prior echocardiographic exam available for comparison. Dizziness and giddiness 05/13/2009 12/23/19 16 Cervicalgia 05/13/2009 12/23/2015 Meniere's disease, unspecified 05/20/2008 0 03/16/2016 Overview: Dr. Torres Casanova, low-sodium diet, consider Dyazide if worse, per 05/09 Disturbances of sensation of smell and taste 05/22/2017 Chronic maxillary sinusitis 02/13/200805/03 Overview: [place]; saw Dr. Casanova re: ? Meniere's 05/09; LOW-SODIUM DIET (2 g, consider Dyazide) Unspecified constipation 04/30/2006 016 Overview: Dr. Juarez Peptic ulcer, unspecified si te, unspecified as acute or chronic, without mention of hemorrhage, perforation, or obstruction 03/19/2007 Overview: CAUSED BY FELDENE for 3 months Generalized osteoarthrosis, unspecified site 12/23/2015 Overview: knees Myalgia and myositis 05/22/2017 Overview: Dr. Guzman made dx () Gout, unspecified 12/23/2015 Overview: great toe, several episodes Peptic ulcer, unspecified si te, unspecified as acute or chronic, without mention of hemorrhage, perforation, or obstruction 03/19/2007 Overview: CAUSED BY FELDENE for 3 months Paroxysmal supraventricular tachycardia 03/19/2007 Overview: ablation 01/2002 ( in [place], [facility]), follows with Dr. Moreno (prn only) documented as of this encounter (statuses as of 01/25/2023) [facility]04-19-2018 History of Past illness Narrative* Problem Noted Date Resolved Date Nausea 03/20/2018 04/29/2019 Overview: Added automatically from request for surgery [id number] Ageusia 02/23/2016 05/22/2017 Glossitis 02/23/2016 05/22/2017 Syncope and collapse 04/30/2014 12/23/2015 Overview: [place] lightheaded, walked to cough and passed out for a few minutes. Witnessed by . No tongue biting, incontinence or post-ictal type confusion. orthostatic VS, EKG WNL Cardiac echo: CONCLUSIONS: - Exam indication: dyspnea - The left ventricle is normal in size. Left ventricular systolic function is hyperdynamic. EF = 70 5% (visual est.) - The right ventricle is normal in size. Right ventricular systolic function is normal. - Mild MAC with mild anterior mitral leaflet thickening. Trivial MR. - 1+ TR. RVSP 31mmHg. - Mild aortic sclerosis with trivial AI. - Trivial PI. - No prior echocardiographic exam available for comparison. Dizziness and giddiness 05/13/2009 12/23/19 16 Cervicalgia 05/13/2009 12/23/2015 Meniere's disease, unspecified 05/20/2008 0 03/16/2016 Overview: Dr. Torres Casanova, low-sodium diet, consider Dyazide if worse, per 05/09 Disturbances of sensation of smell and taste 05/22/2017 Chronic maxillary sinusitis 02/13/200805/03 Overview: [place]; saw Dr. Casanova re: ? Meniere's 05/09; LOW-SODIUM DIET (2 g, consider Dyazide) Unspecified constipation 04/30/2006 016 Overview: Dr. Juarez Peptic ulcer, unspecified si te, unspecified as acute or chronic, without mention of hemorrhage, perforation, or obstruction 03/19/2007 Overview: CAUSED BY FELDENE for 3 months Generalized osteoarthrosis, unspecified site 12/23/2015 Overview: knees Myalgia and myositis 05/22/2017 Overview: Dr. Guzman made dx () Gout, unspecified 12/23/2015 Overview: great toe, several episodes Peptic ulcer, unspecified si te, unspecified as acute or chronic, without mention of hemorrhage, perforation, or obstruction 03/19/2007 Overview: CAUSED BY FELDENE for 3 months Paroxysmal supraventricular tachycardia 03/19/2007 Overview: ablation 01/2002 (Dr. joseph pandey, [facility]), follows with Dr. Moreno (prn only) documented as of this encounter (statuses as of 02/13/2023) [facility] History of Past illness Narrative* Problem Noted Date Resolved Date Nausea 03/20/2018 04/29/2019 Overview: Added automatically from request for surgery [id number] Ageusia 02/23/2016 05/22/2017 Glossitis 02/23/2016 05/22/2017 Syncope and collapse 04/30/2014 12/23/2015 Overview: [place] lightheaded, walked to cough and passed out for a few minutes. Witnessed by . No tongue biting, incontinence or post-ictal type confusion. orthostatic VS, EKG WNL Cardiac echo: CONCLUSIONS: - Exam indication: dyspnea - The left ventricle is normal in size. Left ventricular systolic function is hyperdynamic. EF = 70 5% (visual est.) - The right ventricle is normal in size. Right ventricular systolic function is normal. - Mild MAC with mild anterior mitral leaflet thickening. Trivial MR. - 1+ TR. RVSP 31mmHg. - Mild aortic sclerosis with trivial AI. - Trivial PI. - No prior echocardiographic exam available for comparison. Dizziness and giddiness 05/13/2009 12/23/19 16 Cervicalgia 05/13/2009 12/23/2015 Meniere's disease, unspecified 05/20/2008 0 03/16/2016 Overview: Dr. Torres Casanova, low-sodium diet, consider Dyazide if worse, per 05/09 Disturbances of sensation of smell and taste 05/22/2017 Chronic maxillary sinusitis 02/13/200805/03 Overview: [place]; saw Dr. Casanova re: ? Meniere's 05/09; LOW-SODIUM DIET (2 g, consider Dyazide) Unspecified constipation 04/30/2006 016 Overview: Dr. Juarez Peptic ulcer, unspecified si te, unspecified as acute or chronic, without mention of hemorrhage, perforation, or obstruction 03/19/2007 Overview: CAUSED BY FELDENE for 3 months Generalized osteoarthrosis, unspecified site 12/23/2015 Overview: knees Myalgia and myositis 05/22/2017 Overview: Dr. Guzman made dx () Gout, unspecified 12/23/2015 Overview: great toe, several episodes Peptic ulcer, unspecified si te, unspecified as acute or chronic, without mention of hemorrhage, perforation, or obstruction 03/19/2007 Overview: CAUSED BY FELDENE for 3 months Paroxysmal supraventricular tachycardia 03/19/2007 Overview: ablation 01/2002 ( in [place], [facility]), follows with Dr. Moreno (prn only) documented as of this encounter (statuses as of 05/24/2023) [facility]2018 History of Past illness Narrative* Problem Noted Date Resolved Date Nausea 03/20/2018 04/29/2019 Overview: Added automatically from request for surgery [id number] Ageusia 02/23/2016 05/22/2017 Glossitis 02/23/2016 05/22/2017 Syncope and collapse 04/30/2014 12/23/2015 Overview: [place] lightheaded, walked to cough and passed out for a few minutes. Witnessed by . No tongue biting, incontinence or post-ictal type confusion. orthostatic VS, EKG WNL Cardiac echo: CONCLUSIONS: - Exam indication: dyspnea - The left ventricle is normal in size. Left ventricular systolic function is hyperdynamic. EF = 70 5% (visual est.) - The right ventricle is normal in size. Right ventricular systolic function is normal. - Mild MAC with mild anterior mitral leaflet thickening. Trivial MR. - 1+ TR. RVSP 31mmHg. - Mild aortic sclerosis with trivial AI. - Trivial PI. - No prior echocardiographic exam available for comparison. Dizziness and giddiness 05/13/2009 12/23/19 16 Cervicalgia 05/13/2009 12/23/2015 Meniere's disease, unspecified 05/20/2008 0 03/16/2016 Overview: Dr. Torres Casanova, low-sodium diet, consider Dyazide if worse, per 05/09 Disturbances of sensation of smell and taste 05/22/2017 Chronic maxillary sinusitis 02/13/200805/03 Overview: [place]; saw Dr. Casanova re: ? Meniere's 05/09; LOW-SODIUM DIET (2 g, consider Dyazide) Unspecified constipation 04/30/2006 016 Overview: Dr. Juarez Peptic ulcer, unspecified si te, unspecified as acute or chronic, without mention of hemorrhage, perforation, or obstruction 03/19/2007 Overview: CAUSED BY FELDENE for 3 months Generalized osteoarthrosis, unspecified site 12/23/2015 Overview: knees Myalgia and myositis 05/22/2017 Overview: Dr. Guzman made dx () Gout, unspecified 12/23/2015 Overview: great toe, several episodes Peptic ulcer, unspecified si te, unspecified as acute or chronic, without mention of hemorrhage, perforation, or obstruction 03/19/2007 Overview: CAUSED BY FELDENE for 3 months Paroxysmal supraventricular tachycardia 03/19/2007 Overview: ablation 01/2002 (Dr. joseph pandey, [facility]), follows with Dr. Moreno (prn only) documented as of this encounter (statuses as of 05/29/2023) [facility]04[facility]2018 History of Past illness Narrative* Problem Noted Date Resolved Date Nausea 03/20/2018 04/29/2019 Overview: Added automatically from request for surgery [id number] Ageusia 02/23/2016 05/22/2017 Glossitis 02/23/2016 05/22/2017 Syncope and collapse 04/30/2014 12/23/2015 Overview: [place] lightheaded, walked to cough and passed out for a few minutes. Witnessed by . No tongue biting, incontinence or post-ictal type confusion. orthostatic VS, EKG WNL Cardiac echo: CONCLUSIONS: - Exam indication: dyspnea - The left ventricle is normal in size. Left ventricular systolic function is hyperdynamic. EF = 70 5% (visual est.) - The right ventricle is normal in size. Right ventricular systolic function is normal. - Mild MAC with mild anterior mitral leaflet thickening. Trivial MR. - 1+ TR. RVSP 31mmHg. - Mild aortic sclerosis with trivial AI. - Trivial PI. - No prior echocardiographic exam available for comparison. Dizziness and giddiness 05/13/2009 12/23/19 16 Cervicalgia 05/13/2009 12/23/2015 Meniere's disease, unspecified 05/20/2008 0 03/16/2016 Overview: Dr. Torres Casanova, low-sodium diet, consider Dyazide if worse, per 05/09 Disturbances of sensation of smell and taste 05/22/2017 Chronic maxillary sinusitis 02/13/200805/03 Overview: [place]; saw Dr. Casanova re: ? Meniere's 05/09; LOW-SODIUM DIET (2 g, consider Dyazide) Unspecified constipation 04/30/2006 016 Overview: Dr. Juarez Peptic ulcer, unspecified si te, unspecified as acute or chronic, without mention of hemorrhage, perforation, or obstruction 03/19/2007 Overview: CAUSED BY FELDENE for 3 months Generalized osteoarthrosis, unspecified site 12/23/2015 Overview: knees Myalgia and myositis 05/22/2017 Overview: Dr. Guzman made dx () Gout, unspecified 12/23/2015 Overview: great toe, several episodes Peptic ulcer, unspecified si te, unspecified as acute or chronic, without mention of hemorrhage, perforation, or obstruction 03/19/2007 Overview: CAUSED BY FELDENE for 3 months Paroxysmal supraventricular tachycardia 03/19/2007 Overview: ablation 01/2002 (Dr. joseph pandey, [facility]), follows with Dr. Moreno (prn only) documented as of this encounter (statuses as of 05/30/2023) [facility]2018 History of Past illness Narrative* Problem Noted Date Resolved Date Nausea 03/20/2018 04/29/2019 Overview: Added automatically from request for surgery [id number] Ageusia 02/23/2016 05/22/2017 Glossitis 02/23/2016 05/22/2017 Syncope and collapse 04/30/2014 12/23/2015 Overview: [place] lightheaded, walked to cough and passed out for a few minutes. Witnessed by . No tongue biting, incontinence or post-ictal type confusion. orthostatic VS, EKG WNL Cardiac echo: CONCLUSIONS: - Exam indication: dyspnea - The left ventricle is normal in size. Left ventricular systolic function is hyperdynamic. EF = 70 5% (visual est.) - The right ventricle is normal in size. Right ventricular systolic function is normal. - Mild MAC with mild anterior mitral leaflet thickening. Trivial MR. - 1+ TR. RVSP 31mmHg. - Mild aortic sclerosis with trivial AI. - Trivial PI. - No prior echocardiographic exam available for comparison. Dizziness and giddiness 05/13/2009 12/23/19 16 Cervicalgia 05/13/2009 12/23/2015 Meniere's disease, unspecified 05/20/2008 0 03/16/2016 Overview: Dr. Torres Casanova, low-sodium diet, consider Dyazide if worse, per 05/09 Disturbances of sensation of smell and taste 05/22/2017 Chronic maxillary sinusitis 02/13/200805/03 Overview: [place]; saw Dr. Casanova re: ? Meniere's 05/09; LOW-SODIUM DIET (2 g, consider Dyazide) Unspecified constipation 04/30/2006 016 Overview: Dr. Juarez Peptic ulcer, unspecified si te, unspecified as acute or chronic, without mention of hemorrhage, perforation, or obstruction 03/19/2007 Overview: CAUSED BY FELDENE for 3 months Generalized osteoarthrosis, unspecified site 12/23/2015 Overview: knees Myalgia and myositis 05/22/2017 Overview: Dr. Guzman made dx () Gout, unspecified 12/23/2015 Overview: great toe, several episodes Peptic ulcer, unspecified si te, unspecified as acute or chronic, without mention of hemorrhage, perforation, or obstruction 03/19/2007 Overview: CAUSED BY FELDENE for 3 months Paroxysmal supraventricular tachycardia 03/19/2007 Overview: ablation 01/2002 ( in [place], [facility]), follows with Dr. Moreno (prn only) documented as of this encounter (statuses as of 06/03/2023) [facility] History of Past illness Narrative* Problem Noted Date Diagnosed Date Resolved Date Nausea 03/20/2018 04/29/2019 Overview: Added automatically from request for surgery [id number] Ageusia 02/23/2016 05/22/2017 Glossitis 02/23/2016 05/22/2017 Syncope and collapse 04/30/2014 016 Overview: [place] lightheaded, walked to cough and passed out for a few minutes. Witnessed by . No tongue biting, incontinence or post-ictal type confusion. orthostatic VS, EKG WNL Cardiac echo: CONCLUSIONS: - Exam indication: dyspnea - The left ventricle is normal in size. Left ventricular systolic function is hyperdynamic. EF = 70 5% (visual est.) - The right ventricle is normal in size. Right ventricular systolic function is normal. - Mild MAC with mild anterior mitral leaflet thickening. Trivial MR. - 1+ TR. RVSP 31mmHg. - Mild aortic sclerosis with trivial AI. - Trivial PI. - No prior echocardiographic exam available for comparison. Dizziness and giddiness 05/13/200912/03 Cervicalgia 05/13/2009 12/23/2015 Meniere's disease, unspecified 05/20/2008 03/16/2016 Overview: Dr. Torres Casanova, low-sodium diet, consider Dyazide if worse, per 05/09 Disturbances of sensation of smell and taste 05/22/2017 Chronic maxillary sinusitis 02/13/2008 05/22/2017 Overview: [place]; saw Dr. Casanova re: ? Meniere's 05/09; LOW-SODIUM DIET (2 g, consider Dyazide) Unspecified constipation 04/30/2006 Overview: Dr. Juarez Peptic ulcer, unspecified si te, unspecified as acute or chronic, without mention of hemorrhage, perforation, or obstruction 03/19/2007 Overview: CAUSED BY FELDENE for 3 months Generalized osteoarthrosis, unspecified site 12/23/2015 Overview: knees Myalgia and myositis 017 Overview: Dr. Guzman made dx () Gout, unspecified 12/23/2015 Overview: great toe, several episodes Peptic ulcer, unspecified si te, unspecified as acute or chronic, without mention of hemorrhage, perforation, or obstruction 03/19/2007 Overview: CAUSED BY FELDENE for 3 months Paroxysmal supraventricular tachycardia 03/19/2007 Overview: ablation 01/2002 ( in [place], [facility]), follows with Dr. Moreno (prn only) documented as of this encounter (statuses as of 06/08/2023) [facility] History of Past illness Narrative* Problem Noted Date Diagnosed Date Resolved Date Nausea 03/20/2018 04/29/2019 Overview: Added automatically from request for surgery [id number] Ageusia 02/23/2016 05/22/2017 Glossitis 02/23/2016 05/22/2017 Syncope and collapse 04/30/2014 016 Overview: [place] lightheaded, walked to cough and passed out for a few minutes. Witnessed by . No tongue biting, incontinence or post-ictal type confusion. orthostatic VS, EKG WNL Cardiac echo: CONCLUSIONS: - Exam indication: dyspnea - The left ventricle is normal in size. Left ventricular systolic function is hyperdynamic. EF = 70 5% (visual est.) - The right ventricle is normal in size. Right ventricular systolic function is normal. - Mild MAC with mild anterior mitral leaflet thickening. Trivial MR. - 1+ TR. RVSP 31mmHg. - Mild aortic sclerosis with trivial AI. - Trivial PI. - No prior echocardiographic exam available for comparison. Dizziness and giddiness 05/13/200912/03 Cervicalgia 05/13/2009 12/23/2015 Meniere's disease, unspecified 05/20/2008 03/16/2016 Overview: Dr. Torres Casanova, low-sodium diet, consider Dyazide if worse, per 05/09 Disturbances of sensation of smell and taste 8 05/22/2017 Chronic maxillary sinusitis 02/13/2008 05/22/2017 Overview: [place]; saw Dr. Casanova re: ? Meniere's 05/09; LOW-SODIUM DIET (2 g, consider Dyazide) Unspecified constipation 04/30/2006 Overview: Dr. Juarez Peptic ulcer, unspecified si te, unspecified as acute or chronic, without mention of hemorrhage, perforation, or obstruction 03/19/2007 Overview: CAUSED BY FELDENE for 3 months Generalized osteoarthrosis, unspecified site 12/23/2015 Overview: knees Myalgia and myositis 017 Overview: Dr. Guzman made dx () Gout, unspecified 12/23/2015 Overview: great toe, several episodes Peptic ulcer, unspecified si te, unspecified as acute or chronic, without mention of hemorrhage, perforation, or obstruction 03/19/2007 Overview: CAUSED BY FELDENE for 3 months Paroxysmal supraventricular tachycardia 03/19/2007 Overview: ablation 01/2002 ( in [place], [facility]), follows with Dr. Moreno (prn only) documented as of this encounter (statuses as of 07/03/2023) [facility] History of Past illness Narrative* Problem Noted Date Diagnosed Date Resolved Date Nausea 03/20/2018 04/29/2019 Overview: Added automatically from request for surgery [id number] [place]usia 02/23/2016 05/22/2017 Glossitis 02/23/2016 05/22/2017 Syncope and collapse 04/30/2014 016 Overview: [place] lightheaded, walked to cough and passed out for a few minutes. Witnessed by . No tongue biting, incontinence or post-ictal type confusion. orthostatic VS, EKG WNL Cardiac echo: CONCLUSIONS: - Exam indication: dyspnea - The left ventricle is normal in size. Left ventricular systolic function is hyperdynamic. EF = 70 5% (visual est.) - The right ventricle is normal in size. Right ventricular systolic function is normal. - Mild MAC with mild anterior mitral leaflet thickening. Trivial MR. - 1+ TR. RVSP 31mmHg. - Mild aortic sclerosis with trivial AI. - Trivial PI. - No prior echocardiographic exam available for comparison. Dizziness and giddiness 05/13/200912/03 Cervicalgia 05/13/2009 12/23/2015 Meniere's disease, unspecified 05/20/2008 03/16/2016 Overview: Dr. Torres Casanova, low-sodium diet, consider Dyazide if worse, per 05/09 Disturbances of sensation of smell and taste 8 05/22/2017 Chronic maxillary sinusitis 02/13/2008 05/22/2017 Overview: [place]; saw Dr. Casanova re: ? Meniere's 05/09; LOW-SODIUM DIET (2 g, consider Dyazide) Unspecified constipation 04/30/2006 Overview: Dr. Juarez Peptic ulcer, unspecified si te, unspecified as acute or chronic, without mention of hemorrhage, perforation, or obstruction 03/19/2007 Overview: CAUSED BY FELDENE for 3 months Generalized osteoarthrosis, unspecified site 12/23/2015 Overview: knees Myalgia and myositis 017 Overview: Dr. Guzman made dx () Gout, unspecified 12/23/2015 Overview: great toe, several episodes Peptic ulcer, unspecified si te, unspecified as acute or chronic, without mention of hemorrhage, perforation, or obstruction 03/19/2007 Overview: CAUSED BY FELDENE for 3 months Paroxysmal supraventricular tachycardia 03/19/2007 Overview: ablation 01/2002 (Dr. joseph pandey, [facility]), follows with Dr. Moreno (prn only) documented as of this encounter (statuses as of 07/06/2023) [facility] History of Past illness Narrative* Problem Noted Date Diagnosed Date Resolved Date Nausea 03/20/2018 04/29/2019 Overview: Added automatically from request for surgery [id number] Ageusia 02/23/2016 05/22/2017 Glossitis 02/23/2016 05/22/2017 Syncope and collapse 04/30/2014 016 Overview: [place] lightheaded, walked to cough and passed out for a few minutes. Witnessed by . No tongue biting, incontinence or post-ictal type confusion. orthostatic VS, EKG WNL Cardiac echo: CONCLUSIONS: - Exam indication: dyspnea - The left ventricle is normal in size. Left ventricular systolic function is hyperdynamic. EF = 70 5% (visual est.) - The right ventricle is normal in size. Right ventricular systolic function is normal. - Mild MAC with mild anterior mitral leaflet thickening. Trivial MR. - 1+ TR. RVSP 31mmHg. - Mild aortic sclerosis with trivial AI. - Trivial PI. - No prior echocardiographic exam available for comparison. Dizziness and giddiness 05/13/200912/03 Cervicalgia 05/13/2009 12/23/2015 Meniere's disease, unspecified 05/20/2008 03/16/2016 Overview: Dr. Torres Casanova, low-sodium diet, consider Dyazide if worse, per 05/09 Disturbances of sensation of smell and taste 8 05/22/2017 Chronic maxillary sinusitis 02/13/2008 05/22/2017 Overview: [place]; saw Dr. Casanova re: ? Meniere's 05/09; LOW-SODIUM DIET (2 g, consider Dyazide) Unspecified constipation 04/30/2006 Overview: Dr. Juarez Peptic ulcer, unspecified si te, unspecified as acute or chronic, without mention of hemorrhage, perforation, or obstruction 03/19/2007 Overview: CAUSED BY FELDENE for 3 months Generalized osteoarthrosis, unspecified site 12/23/2015 Overview: knees Myalgia and myositis 017 Overview: Dr. Guzman made dx () Gout, unspecified 12/23/2015 Overview: great toe, several episodes Peptic ulcer, unspecified si te, unspecified as acute or chronic, without mention of hemorrhage, perforation, or obstruction 03/19/2007 Overview: CAUSED BY FELDENE for 3 months Paroxysmal supraventricular tachycardia 03/19/2007 Overview: ablation 01/2002 (Dr. joseph pandey, [facility]), follows with Dr. Moreno (prn only) documented as of this encounter (statuses as of 08/13/2023) [facility] History of Past illness Narrative* Problem Noted Date Diagnosed Date Resolved Date Nausea 03/20/2018 04/29/2019 Overview: Added automatically from request for surgery [id number] [place]usia 02/23/2016 05/22/2017 Glossitis 02/23/2016 05/22/2017 Syncope and collapse 04/30/2014 016 Overview: [place] lightheaded, walked to cough and passed out for a few minutes. Witnessed by . No tongue biting, incontinence or post-ictal type confusion. orthostatic VS, EKG WNL Cardiac echo: CONCLUSIONS: - Exam indication: dyspnea - The left ventricle is normal in size. Left ventricular systolic function is hyperdynamic. EF = 70 5% (visual est.) - The right ventricle is normal in size. Right ventricular systolic function is normal. - Mild MAC with mild anterior mitral leaflet thickening. Trivial MR. - 1+ TR. RVSP 31mmHg. - Mild aortic sclerosis with trivial AI. - Trivial PI. - No prior echocardiographic exam available for comparison. Dizziness and giddiness 05/13/200912/03 Cervicalgia 05/13/2009 12/23/2015 Meniere's disease, unspecified 05/20/2008 03/16/2016 Overview: Dr. Torres Casanova, low-sodium diet, consider Dyazide if worse, per 05/09 Disturbances of sensation of smell and taste 8 05/22/2017 Chronic maxillary sinusitis 02/13/2008 05/22/2017 Overview: [place]; saw Dr. Casanova re: ? Meniere's 05/09; LOW-SODIUM DIET (2 g, consider Dyazide) Unspecified constipation 04/30/2006 Overview: Dr. Juarez Peptic ulcer, unspecified si te, unspecified as acute or chronic, without mention of hemorrhage, perforation, or obstruction 03/19/2007 Overview: CAUSED BY FELDENE for 3 months Generalized osteoarthrosis, unspecified site 12/23/2015 Overview: knees Myalgia and myositis 017 Overview: Dr. Guzman made dx () Gout, unspecified 12/23/2015 Overview: great toe, several episodes Peptic ulcer, unspecified si te, unspecified as acute or chronic, without mention of hemorrhage, perforation, or obstruction 03/19/2007 Overview: CAUSED BY FELDENE for 3 months Paroxysmal supraventricular tachycardia 03/19/2007 Overview: ablation 01/2002 ( in [place], [facility]), follows with Dr. Moreno (prn only) documented as of this encounter (statuses as of 08/20/2023) [facility]04-19-2018 History of Past illness Narrative* Problem Noted Date Diagnosed Date Resolved Date Nausea 03/20/2018 04/29/2019 Overview: Added automatically from request for surgery [id number] Ageusia 02/23/2016 05/22/2017 Glossitis 02/23/2016 05/22/2017 Syncope and collapse 04/30/2014 016 Overview: [place] lightheaded, walked to cough and passed out for a few minutes. Witnessed by . No tongue biting, incontinence or post-ictal type confusion. orthostatic VS, EKG WNL Cardiac echo: CONCLUSIONS: - Exam indication: dyspnea - The left ventricle is normal in size. Left ventricular systolic function is hyperdynamic. EF = 70 5% (visual est.) - The right ventricle is normal in size. Right ventricular systolic function is normal. - Mild MAC with mild anterior mitral leaflet thickening. Trivial MR. - 1+ TR. RVSP 31mmHg. - Mild aortic sclerosis with trivial AI. - Trivial PI. - No prior echocardiographic exam available for comparison. Dizziness and giddiness 05/13/200912/03 Cervicalgia 05/13/2009 12/23/2015 Meniere's disease, unspecified 05/20/2008 03/16/2016 Overview: Dr. Torres Casanova, low-sodium diet, consider Dyazide if worse, per 05/09 Disturbances of sensation of smell and taste 8 05/22/2017 Chronic maxillary sinusitis 02/13/2008 05/22/2017 Overview: [place]; saw Dr. Casanova re: ? Meniere's 05/09; LOW-SODIUM DIET (2 g, consider Dyazide) Unspecified constipation 04/30/2006 Overview: Dr. Juarez Peptic ulcer, unspecified si te, unspecified as acute or chronic, without mention of hemorrhage, perforation, or obstruction 03/19/2007 Overview: CAUSED BY FELDENE for 3 months Generalized osteoarthrosis, unspecified site 12/23/2015 Overview: knees Myalgia and myositis 017 Overview: Dr. Guzman made dx () Gout, unspecified 12/23/2015 Overview: great toe, several episodes Peptic ulcer, unspecified si te, unspecified as acute or chronic, without mention of hemorrhage, perforation, or obstruction 03/19/2007 Overview: CAUSED BY FELDENE for 3 months Paroxysmal supraventricular tachycardia 03/19/2007 Overview: ablation 01/2002 (Dr. joseph pandey, [facility]), follows with Dr. Moreno (prn only) documented as of this encounter (statuses as of 08/21/2023) [facility]04-19[facility]2018 History of Past illness Narrative* Problem Noted Date Diagnosed Date Resolved Date Nausea 03/20/2018 04/29/2019 Overview: Added automatically from request for surgery [id number] Ageusia 02/23/2016 05/22/2017 Glossitis 02/23/2016 05/22/2017 Syncope and collapse 04/30/2014 016 Overview: [place] light[place], walked to cough and passed out for a few minutes. Witnessed by . No tongue biting, incontinence or post-ictal type confusion. orthostatic VS, EKG WNL Cardiac echo: CONCLUSIONS: - Exam indication: dyspnea - The left ventricle is normal in size. Left ventricular systolic function is hyperdynamic. EF = 70 5% (visual est.) - The right ventricle is normal in size. Right ventricular systolic function is normal. - Mild MAC with mild anterior mitral leaflet thickening. Trivial MR. - 1+ TR. RVSP 31mmHg. - Mild aortic sclerosis with trivial AI. - Trivial PI. - No prior echocardiographic exam available for comparison. Dizziness and giddiness 05/13/200912/03 Cervicalgia 05/13/2009 12/23/2015 Meniere's disease, unspecified 05/20/2008 03/16/2016 Overview: Dr. Torres Casanova, low-sodium diet, consider Dyazide if worse, per 05/09 Disturbances of sensation of smell and taste 8 05/22/2017 Chronic maxillary sinusitis 02/13/2008 05/22/2017 Overview: [place]; saw Dr. Casanova re: ? Meniere's 05/09; LOW-SODIUM DIET (2 g, consider Dyazide) Unspecified constipation 04/30/2006 Overview: Dr. Juarez Peptic ulcer, unspecified si te, unspecified as acute or chronic, without mention of hemorrhage, perforation, or obstruction 03/19/2007 Overview: CAUSED BY FELDENE for 3 months Generalized osteoarthrosis, unspecified site 12/23/2015 Overview: knees Myalgia and myositis 017 Overview: Dr. Guzman made dx () Gout, unspecified 12/23/2015 Overview: great toe, several episodes Peptic ulcer, unspecified si te, unspecified as acute or chronic, without mention of hemorrhage, perforation, or obstruction 03/19/2007 Overview: CAUSED BY FELDENE for 3 months Paroxysmal supraventricular tachycardia 03/19/2007 Overview: ablation 01/2002 ( in [place], [facility]), follows with Dr. Moreno (prn only) documented as of this encounter (statuses as of 09/23/2023) [facility] History of Past illness Narrative* Problem Noted Date Diagnosed Date Resolved Date Nausea 03/20/2018 04/29/2019 Overview: Added automatically from request for surgery [id number] Ageusia 02/23/2016 05/22/2017 Glossitis 02/23/2016 05/22/2017 Syncope and collapse 04/30/2014 016 Overview: [place] lightheaded, walked to cough and passed out for a few minutes. Witnessed by . No tongue biting, incontinence or post-ictal type confusion. orthostatic VS, EKG WNL Cardiac echo: CONCLUSIONS: - Exam indication: dyspnea - The left ventricle is normal in size. Left ventricular systolic function is hyperdynamic. EF = 70 5% (visual est.) - The right ventricle is normal in size. Right ventricular systolic function is normal. - Mild MAC with mild anterior mitral leaflet thickening. Trivial MR. - 1+ TR. RVSP 31mmHg. - Mild aortic sclerosis with trivial AI. - Trivial PI. - No prior echocardiographic exam available for comparison. Dizziness and giddiness 05/13/200912/03 Cervicalgia 05/13/2009 12/23/2015 Meniere's disease, unspecified 05/20/2008 03/16/2016 Overview: Dr. Torres Casanova, low-sodium diet, consider Dyazide if worse, per 05/09 Disturbances of sensation of smell and taste 8 05/22/2017 Chronic maxillary sinusitis 02/13/2008 05/22/2017 Overview: [place]; saw Dr. Casanova re: ? Meniere's 05/09; LOW-SODIUM DIET (2 g, consider Dyazide) Unspecified constipation 04/30/2006 Overview: Dr. Juarez Peptic ulcer, unspecified si te, unspecified as acute or chronic, without mention of hemorrhage, perforation, or obstruction 03/19/2007 Overview: CAUSED BY FELDENE for 3 months Generalized osteoarthrosis, unspecified site 12/23/2015 Overview: knees Myalgia and myositis 017 Overview: Dr. Guzman made dx () Gout, unspecified 12/23/2015 Overview: great toe, several episodes Peptic ulcer, unspecified si te, unspecified as acute or chronic, without mention of hemorrhage, perforation, or obstruction 03/19/2007 Overview: CAUSED BY FELDENE for 3 months Paroxysmal supraventricular tachycardia 03/19/2007 Overview: ablation 01/2002 (Dr. joseph pandey, [facility]), follows with Dr. Moreno (prn only) documented as of this encounter (statuses as of 10/04/2023) [facility] History of Past illness Narrative* Problem Noted Date Diagnosed Date Resolved Date Nausea 03/20/2018 04/29/2019 Overview: Added automatically from request for surgery [id number] Ageusia 02/23/2016 05/22/2017 Glossitis 02/23/2016 05/22/2017 Syncope and collapse 04/30/2014 016 Overview: [place] light[place], walked to cough and passed out for a few minutes. Witnessed by . No tongue biting, incontinence or post-ictal type confusion. orthostatic VS, EKG WNL Cardiac echo: CONCLUSIONS: - Exam indication: dyspnea - The left ventricle is normal in size. Left ventricular systolic function is hyperdynamic. EF = 70 5% (visual est.) - The right ventricle is normal in size. Right ventricular systolic function is normal. - Mild MAC with mild anterior mitral leaflet thickening. Trivial MR. - 1+ TR. RVSP 31mmHg. - Mild aortic sclerosis with trivial AI. - Trivial PI. - No prior echocardiographic exam available for comparison. Dizziness and giddiness 05/13/200912/03 Cervicalgia 05/13/2009 12/23/2015 Meniere's disease, unspecified 05/20/2008 03/16/2016 Overview: Dr. Torres Casanova, low-sodium diet, consider Dyazide if worse, per 05/09 Disturbances of sensation of smell and taste 8 05/22/2017 Chronic maxillary sinusitis 02/13/2008 05/22/2017 Overview: [place]; saw Dr. Casanova re: ? Meniere's 05/09; LOW-SODIUM DIET (2 g, consider Dyazide) Unspecified constipation 04/30/2006 Overview: Dr. Juarez Peptic ulcer, unspecified si te, unspecified as acute or chronic, without mention of hemorrhage, perforation, or obstruction 03/19/2007 Overview: CAUSED BY FELDENE for 3 months Generalized osteoarthrosis, unspecified site 12/23/2015 Overview: knees Myalgia and myositis 017 Overview: Dr. Guzman made dx () Gout, unspecified 12/23/2015 Overview: great toe, several episodes Peptic ulcer, unspecified si te, unspecified as acute or chronic, without mention of hemorrhage, perforation, or obstruction 03/19/2007 Overview: CAUSED BY FELDENE for 3 months Paroxysmal supraventricular tachycardia 03/19/2007 Overview: ablation 01/2002 ( in [facility]), follows with Dr. Moreno (prn only) documented as of this encounter (statuses as of 11/16/2023) [facility]2018 History of Past illness Narrative* Problem Noted Date Diagnosed Date Resolved Date Nausea 03/20/2018 04/29/2019 Overview: Added automatically from request for surgery [id number] Ageusia 02/23/2016 05/22/2017 Glossitis 02/23/2016 05/22/2017 Syncope and collapse 04/30/2014 016 Overview: [place] lightheaded, walked to cough and passed out for a few minutes. Witnessed by . No tongue biting, incontinence or post-ictal type confusion. orthostatic VS, EKG WNL Cardiac echo: CONCLUSIONS: - Exam indication: dyspnea - The left ventricle is normal in size. Left ventricular systolic function is hyperdynamic. EF = 70 5% (visual est.) - The right ventricle is normal in size. Right ventricular systolic function is normal. - Mild MAC with mild anterior mitral leaflet thickening. Trivial MR. - 1+ TR. RVSP 31mmHg. - Mild aortic sclerosis with trivial AI. - Trivial PI. - No prior echocardiographic exam available for comparison. Dizziness and giddiness 05/13/200912/03 Cervicalgia 05/13/2009 12/23/2015 Meniere's disease, unspecified 05/20/2008 03/16/2016 Overview: Dr. Torres Casanova, low-sodium diet, consider Dyazide if worse, per 05/09 Disturbances of sensation of smell and taste 8 05/22/2017 Chronic maxillary sinusitis 02/13/2008 05/22/2017 Overview: [place]; saw Dr. Casanova re: ? Meniere's 05/09; LOW-SODIUM DIET (2 g, consider Dyazide) Unspecified constipation 04/30/2006 Overview: Dr. Juarez Peptic ulcer, unspecified si te, unspecified as acute or chronic, without mention of hemorrhage, perforation, or obstruction 03/19/2007 Overview: CAUSED BY FELDENE for 3 months Generalized osteoarthrosis, unspecified site 12/23/2015 Overview: knees Myalgia and myositis 017 Overview: Dr. Guzman made dx () Gout, unspecified 12/23/2015 Overview: great toe, several episodes Peptic ulcer, unspecified si te, unspecified as acute or chronic, without mention of hemorrhage, perforation, or obstruction 03/19/2007 Overview: CAUSED BY FELDENE for 3 months Paroxysmal supraventricular tachycardia 03/19/2007 Overview: ablation 01/2002 (Dr. joseph pandey, [facility]), follows with Dr. Moreno (prn only) documented as of this encounter (statuses as of 01/10/2024) [facility]04[facility]2018 History of Past illness Narrative* Problem Noted Date Diagnosed Date Resolved Date Nausea 03/20/2018 04/29/2019 Overview: Added automatically from request for surgery [id number] Ageusia 02/23/2016 05/22/2017 Glossitis 02/23/2016 05/22/2017 Syncope and collapse 04/30/2014 016 Overview: [place] lightheaded, walked to cough and passed out for a few minutes. Witnessed by . No tongue biting, incontinence or post-ictal type confusion. orthostatic VS, EKG WNL Cardiac echo: CONCLUSIONS: - Exam indication: dyspnea - The left ventricle is normal in size. Left ventricular systolic function is hyperdynamic. EF = 70 5% (visual est.) - The right ventricle is normal in size. Right ventricular systolic function is normal. - Mild MAC with mild anterior mitral leaflet thickening. Trivial MR. - 1+ TR. RVSP 31mmHg. - Mild aortic sclerosis with trivial AI. - Trivial PI. - No prior echocardiographic exam available for comparison. Dizziness and giddiness 05/13/200912/03 Cervicalgia 05/13/2009 12/23/2015 Meniere's disease, unspecified 05/20/2008 03/16/2016 Overview: Dr. Torres Casanova, low-sodium diet, consider Dyazide if worse, per 05/09 Disturbances of sensation of smell and taste 8 05/22/2017 Chronic maxillary sinusitis 02/13/2008 05/22/2017 Overview: [place]; saw Dr. Casanova re: ? Meniere's 05/09; LOW-SODIUM DIET (2 g, consider Dyazide) Unspecified constipation 04/30/2006 Overview: Dr. Juarez Peptic ulcer, unspecified si te, unspecified as acute or chronic, without mention of hemorrhage, perforation, or obstruction 03/19/2007 Overview: CAUSED BY FELDENE for 3 months Generalized osteoarthrosis, unspecified site 12/23/2015 Overview: knees Myalgia and myositis 017 Overview: Dr. Guzman made dx () Gout, unspecified 12/23/2015 Overview: great toe, several episodes Peptic ulcer, unspecified si te, unspecified as acute or chronic, without mention of hemorrhage, perforation, or obstruction 03/19/2007 Overview: CAUSED BY FELDENE for 3 months Paroxysmal supraventricular tachycardia 03/19/2007 Overview: ablation 01/2002 (Dr. joseph pandey, [facility]), follows with Dr. Moreno (prn only) documented as of this encounter (statuses as of 01/15/2024) [facility] History of Past illness Narrative* Problem Noted Date Diagnosed Date Resolved Date Nausea 03/20/2018 04/29/2019 Overview: Added automatically from request for surgery [id number] Ageusia 02/23/2016 05/22/2017 Glossitis 02/23/2016 05/22/2017 Syncope and collapse 04/30/2014 016 Overview: [place] lightheaded, walked to cough and passed out for a few minutes. Witnessed by . No tongue biting, incontinence or post-ictal type confusion. orthostatic VS, EKG WNL Cardiac echo: CONCLUSIONS: - Exam indication: dyspnea - The left ventricle is normal in size. Left ventricular systolic function is hyperdynamic. EF = 70 5% (visual est.) - The right ventricle is normal in size. Right ventricular systolic function is normal. - Mild MAC with mild anterior mitral leaflet thickening. Trivial MR. - 1+ TR. RVSP 31mmHg. - Mild aortic sclerosis with trivial AI. - Trivial PI. - No prior echocardiographic exam available for comparison. Dizziness and giddiness 05/13/200912/03 Cervicalgia 05/13/2009 12/23/2015 Meniere's disease, unspecified 05/20/2008 03/16/2016 Overview: Dr. Torres Casanova, low-sodium diet, consider Dyazide if worse, per 05/09 Disturbances of sensation of smell and taste 8 05/22/2017 Chronic maxillary sinusitis 02/13/2008 05/22/2017 Overview: [place]; savana Casanova re: ? Meniere's 05/09; LOW-SODIUM DIET (2 g, consider Dyazide) Unspecified constipation 04/30/2006 Overview: Dr. Juarez Peptic ulcer, unspecified si te, unspecified as acute or chronic, without mention of hemorrhage, perforation, or obstruction 03/19/2007 Overview: CAUSED BY FELDENE for 3 months Generalized osteoarthrosis, unspecified site 12/23/2015 Overview: knees Myalgia and myositis 017 Overview: Dr. Guzman made dx () Gout, unspecified 12/23/2015 Overview: great toe, several episodes Peptic ulcer, unspecified si te, unspecified as acute or chronic, without mention of hemorrhage, perforation, or obstruction 03/19/2007 Overview: CAUSED BY FELDENE for 3 months Paroxysmal supraventricular tachycardia 03/19/2007 Overview: ablation 01/2002 (Dr. joseph pandey, [facility]), follows with Dr. Moreno (prn only) documented as of this encounter (statuses as of 01/17/2024) [facility] History of Past illness Narrative* Problem Noted Date Diagnosed Date Resolved Date Nausea 03/20/2018 04/29/2019 Overview: Added automatically from request for surgery [id number] [place]usia 02/23/2016 05/22/2017 Glossitis 02/23/2016 05/22/2017 Syncope and collapse 04/30/2014 016 Overview: [place] lightheaded, walked to cough and passed out for a few minutes. Witnessed by . No tongue biting, incontinence or post-ictal type confusion. orthostatic VS, EKG WNL Cardiac echo: CONCLUSIONS: - Exam indication: dyspnea - The left ventricle is normal in size. Left ventricular systolic function is hyperdynamic. EF = 70 5% (visual est.) - The right ventricle is normal in size. Right ventricular systolic function is normal. - Mild MAC with mild anterior mitral leaflet thickening. Trivial MR. - 1+ TR. RVSP 31mmHg. - Mild aortic sclerosis with trivial AI. - Trivial PI. - No prior echocardiographic exam available for comparison. Dizziness and giddiness 05/13/200912/03 Cervicalgia 05/13/2009 12/23/2015 Meniere's disease, unspecified 05/20/2008 03/16/2016 Overview: Dr. Torres Casanova, low-sodium diet, consider Dyazide if worse, per 05/09 Disturbances of sensation of smell and taste 8 05/22/2017 Chronic maxillary sinusitis 02/13/2008 05/22/2017 Overview: [place]; saw Dr. Casanova re: ? Meniere's 05/09; LOW-SODIUM DIET (2 g, consider Dyazide) Unspecified constipation 04/30/2006 Overview: Dr. Juarez Peptic ulcer, unspecified si te, unspecified as acute or chronic, without mention of hemorrhage, perforation, or obstruction 03/19/2007 Overview: CAUSED BY FELDENE for 3 months Generalized osteoarthrosis, unspecified site 12/23/2015 Overview: knees Myalgia and myositis 017 Overview: Dr. Guzman made dx () Gout, unspecified 12/23/2015 Overview: great toe, several episodes Peptic ulcer, unspecified si te, unspecified as acute or chronic, without mention of hemorrhage, perforation, or obstruction 03/19/2007 Overview: CAUSED BY FELDENE for 3 months Paroxysmal supraventricular tachycardia 03/19/2007 Overview: ablation 01/2002 (Dr. joseph pandey, [facility]), follows with Dr. Moreno (prn only) documented as of this encounter (statuses as of 01/18/2024) [facility] History of Past illness Narrative* Problem Noted Date Diagnosed Date Resolved Date Nausea 03/20/2018 04/29/2019 Overview: Added automatically from request for surgery [id number] [place] 02/23/2016 05/22/2017 Glossitis 02/23/2016 05/22/2017 Syncope and collapse 04/30/2014 016 Overview: [place] lightheaded, walked to cough and passed out for a few minutes. Witnessed by . No tongue biting, incontinence or post-ictal type confusion. orthostatic VS, EKG WNL Cardiac echo: CONCLUSIONS: - Exam indication: dyspnea - The left ventricle is normal in size. Left ventricular systolic function is hyperdynamic. EF = 70 5% (visual est.) - The right ventricle is normal in size. Right ventricular systolic function is normal. - Mild MAC with mild anterior mitral leaflet thickening. Trivial MR. - 1+ TR. RVSP 31mmHg. - Mild aortic sclerosis with trivial AI. - Trivial PI. - No prior echocardiographic exam available for comparison. Dizziness and giddiness 05/13/200912/03 Cervicalgia 05/13/2009 12/23/2015 Meniere's disease, unspecified 05/20/2008 03/16/2016 Overview: Dr. Torres Casanova, low-sodium diet, consider Dyazide if worse, per 05/09 Disturbances of sensation of smell and taste 8 05/22/2017 Chronic maxillary sinusitis 02/13/2008 05/22/2017 Overview: [place]; saw Dr. Casanova re: ? Meniere's 05/09; LOW-SODIUM DIET (2 g, consider Dyazide) Unspecified constipation 04/30/2006 Overview: Dr. Juarez Peptic ulcer, unspecified si te, unspecified as acute or chronic, without mention of hemorrhage, perforation, or obstruction 03/19/2007 Overview: CAUSED BY FELDENE for 3 months Generalized osteoarthrosis, unspecified site 12/23/2015 Overview: knees Myalgia and myositis 017 Overview: Dr. Guzman made dx (1980s) Gout, unspecified 12/23/2015 Overview: great toe, several episodes Peptic ulcer, unspecified si te, unspecified as acute or chronic, without mention of hemorrhage, perforation, or obstruction 03/19/2007 Overview: CAUSED BY FELDENE for 3 months Paroxysmal supraventricular tachycardia 03/19/2007 Overview: ablation 01/2002 (Dr. joseph pandey, [facility]), follows with Dr. Moreno (prn only) documented as of this encounter (statuses as of 01/31/2024) [facility] History of Past illness Narrative* Problem Noted Date Diagnosed Date Resolved Date Nausea 03/20/2018 04/29/2019 Overview: Added automatically from request for surgery [id number] [place] 02/23/2016 05/22/2017 Glossitis 02/23/2016 05/22/2017 Syncope and collapse 04/30/2014 016 Overview: [place] lightheaded, walked to cough and passed out for a few minutes. Witnessed by . No tongue biting, incontinence or post-ictal type confusion. orthostatic VS, EKG WNL Cardiac echo: CONCLUSIONS: - Exam indication: dyspnea - The left ventricle is normal in size. Left ventricular systolic function is hyperdynamic. EF = 70 5% (visual est.) - The right ventricle is normal in size. Right ventricular systolic function is normal. - Mild MAC with mild anterior mitral leaflet thickening. Trivial MR. - 1+ TR. RVSP 31mmHg. - Mild aortic sclerosis with trivial AI. - Trivial PI. - No prior echocardiographic exam available for comparison. Dizziness and giddiness 05/13/200912/03 Cervicalgia 05/13/2009 12/23/2015 Meniere's disease, unspecified 05/20/2008 03/16/2016 Overview: Dr. Torres Casanova, low-sodium diet, consider Dyazide if worse, per 05/09 Disturbances of sensation of smell and taste 8 05/22/2017 Chronic maxillary sinusitis 02/13/2008 05/22/2017 Overview: [place]; saw Dr. Casanova re: ? Meniere's 05/09; LOW-SODIUM DIET (2 g, consider Dyazide) Unspecified constipation 04/30/2006 Overview: Dr. Juarez Peptic ulcer, unspecified si te, unspecified as acute or chronic, without mention of hemorrhage, perforation, or obstruction 03/19/2007 Overview: CAUSED BY FELDENE for 3 months Generalized osteoarthrosis, unspecified site 12/23/2015 Overview: knees Myalgia and myositis 017 Overview: Dr. Guzman made dx () Gout, unspecified 12/23/2015 Overview: great toe, several episodes Peptic ulcer, unspecified si te, unspecified as acute or chronic, without mention of hemorrhage, perforation, or obstruction 03/19/2007 Overview: CAUSED BY FELDENE for 3 months Paroxysmal supraventricular tachycardia 03/19/2007 Overview: ablation 01/2002 (Dr. joseph pandey, [facility]), follows with Dr. Moreno (prn only) documented as of this encounter (statuses as of 01/31/2024) [facility] History of Past illness Narrative* Problem Noted Date Diagnosed Date Resolved Date Nausea 03/20/2018 04/29/2019 Overview: Added automatically from request for surgery [id number] [place]ia 02/23/2016 05/22/2017 Glossitis 02/23/2016 05/22/2017 Syncope and collapse 04/30/2014 016 Overview: [place] lightheaded, walked to cough and passed out for a few minutes. Witnessed by . No tongue biting, incontinence or post-ictal type confusion. orthostatic VS, EKG WNL Cardiac echo: CONCLUSIONS: - Exam indication: dyspnea - The left ventricle is normal in size. Left ventricular systolic function is hyperdynamic. EF = 70 5% (visual est.) - The right ventricle is normal in size. Right ventricular systolic function is normal. - Mild MAC with mild anterior mitral leaflet thickening. Trivial MR. - 1+ TR. RVSP 31mmHg. - Mild aortic sclerosis with trivial AI. - Trivial PI. - No prior echocardiographic exam available for comparison. Dizziness and giddiness 05/13/200912/03 Cervicalgia 05/13/2009 12/23/2015 Meniere's disease, unspecified 05/20/2008 03/16/2016 Overview: Dr. Torres Casanova, low-sodium diet, consider Dyazide if worse, per 05/09 Disturbances of sensation of smell and taste 8 05/22/2017 Chronic maxillary sinusitis 02/13/2008 05/22/2017 Overview: [place]; saw Dr. Casanova re: ? Meniere's 05/09; LOW-SODIUM DIET (2 g, consider Dyazide) Unspecified constipation 04/30/2006 Overview: Dr. Juarez Peptic ulcer, unspecified si te, unspecified as acute or chronic, without mention of hemorrhage, perforation, or obstruction 03/19/2007 Overview: CAUSED BY FELDENE for 3 months Generalized osteoarthrosis, unspecified site 12/23/2015 Overview: knees Myalgia and myositis 017 Overview: Dr. Guzman made dx () Gout, unspecified 12/23/2015 Overview: great toe, several episodes Peptic ulcer, unspecified si te, unspecified as acute or chronic, without mention of hemorrhage, perforation, or obstruction 03/19/2007 Overview: CAUSED BY FELDENE for 3 months Paroxysmal supraventricular tachycardia 03/19/2007 Overview: ablation 01/2002 ( in [place], [facility]), follows with Dr. Moreno (prn only) documented as of this encounter (statuses as of 02/06/2024) [facility]04-19-2018 History of Past illness Narrative* Problem Noted Date Diagnosed Date Resolved Date Nausea 03/20/2018 04/29/2019 Overview: Added automatically from request for surgery [id number] Ageusia 02/23/2016 05/22/2017 Glossitis 02/23/2016 05/22/2017 Syncope and collapse 04/30/2014 016 Overview: [place] lightheaded, walked to cough and passed out for a few minutes. Witnessed by . No tongue biting, incontinence or post-ictal type confusion. orthostatic VS, EKG WNL Cardiac echo: CONCLUSIONS: - Exam indication: dyspnea - The left ventricle is normal in size. Left ventricular systolic function is hyperdynamic. EF = 70 5% (visual est.) - The right ventricle is normal in size. Right ventricular systolic function is normal. - Mild MAC with mild anterior mitral leaflet thickening. Trivial MR. - 1+ TR. RVSP 31mmHg. - Mild aortic sclerosis with trivial AI. - Trivial PI. - No prior echocardiographic exam available for comparison. Dizziness and giddiness 05/13/200912/03 Cervicalgia 05/13/2009 12/23/2015 Meniere's disease, unspecified 05/20/2008 03/16/2016 Overview: Dr. Torres Casanova, low-sodium diet, consider Dyazide if worse, per 05/09 Disturbances of sensation of smell and taste 8 05/22/2017 Chronic maxillary sinusitis 02/13/2008 05/22/2017 Overview: [place]; savana Casanova re: ? Meniere's 05/09; LOW-SODIUM DIET (2 g, consider Dyazide) Unspecified constipation 04/30/2006 Overview: Dr. Juarez Peptic ulcer, unspecified si te, unspecified as acute or chronic, without mention of hemorrhage, perforation, or obstruction 03/19/2007 Overview: CAUSED BY FELDENE for 3 months Generalized osteoarthrosis, unspecified site 12/23/2015 Overview: knees Myalgia and myositis 017 Overview: Dr. Guzman made dx () Gout, unspecified 12/23/2015 Overview: great toe, several episodes Peptic ulcer, unspecified si te, unspecified as acute or chronic, without mention of hemorrhage, perforation, or obstruction 03/19/2007 Overview: CAUSED BY FELDENE for 3 months Paroxysmal supraventricular tachycardia 03/19/2007 Overview: ablation 01/2002 ( in [place], [facility]), follows with Dr. Moreno (prn only) documented as of this encounter (statuses as of 02/07/2024) [facility]04-19-2018 History of Past illness Narrative* Problem Noted Date Diagnosed Date Resolved Date Nausea 03/20/2018 04/29/2019 Overview: Added automatically from request for surgery [id number] Ageusia 02/23/2016 05/22/2017 Glossitis 02/23/2016 05/22/2017 Syncope and collapse 04/30/2014 016 Overview: [place] lightheaded, walked to cough and passed out for a few minutes. Witnessed by . No tongue biting, incontinence or post-ictal type confusion. orthostatic VS, EKG WNL Cardiac echo: CONCLUSIONS: - Exam indication: dyspnea - The left ventricle is normal in size. Left ventricular systolic function is hyperdynamic. EF = 70 5% (visual est.) - The right ventricle is normal in size. Right ventricular systolic function is normal. - Mild MAC with mild anterior mitral leaflet thickening. Trivial MR. - 1+ TR. RVSP 31mmHg. - Mild aortic sclerosis with trivial AI. - Trivial PI. - No prior echocardiographic exam available for comparison. Dizziness and giddiness 05/13/200912/03 Cervicalgia 05/13/2009 12/23/2015 Meniere's disease, unspecified 05/20/2008 03/16/2016 Overview: Dr. Torres Casanova, low-sodium diet, consider Dyazide if worse, per 05/09 Disturbances of sensation of smell and taste 8 05/22/2017 Chronic maxillary sinusitis 02/13/2008 05/22/2017 Overview: [place]; saw Dr. Casanova re: ? Meniere's 05/09; LOW-SODIUM DIET (2 g, consider Dyazide) Unspecified constipation 04/30/2006 Overview: Dr. Juarez Peptic ulcer, unspecified si te, unspecified as acute or chronic, without mention of hemorrhage, perforation, or obstruction 03/19/2007 Overview: CAUSED BY FELDENE for 3 months Generalized osteoarthrosis, unspecified site 12/23/2015 Overview: knees Myalgia and myositis 017 Overview: Dr. Guzman made dx () Gout, unspecified 12/23/2015 Overview: great toe, several episodes Peptic ulcer, unspecified si te, unspecified as acute or chronic, without mention of hemorrhage, perforation, or obstruction 03/19/2007 Overview: CAUSED BY FELDENE for 3 months Paroxysmal supraventricular tachycardia 03/19/2007 Overview: ablation 01/2002 (Dr. joseph pandey, [facility]), follows with Dr. Moreno (prn only) documented as of this encounter (statuses as of 02/07/2024) [facility]04[facility]2018 History of Past illness Narrative* Problem Noted Date Diagnosed Date Resolved Date Nausea 03/20/2018 04/29/2019 Overview: Added automatically from request for surgery [id number] Ageusia 02/23/2016 05/22/2017 Glossitis 02/23/2016 05/22/2017 Syncope and collapse 04/30/2014 016 Overview: [place] lightheaded, walked to cough and passed out for a few minutes. Witnessed by . No tongue biting, incontinence or post-ictal type confusion. orthostatic VS, EKG WNL Cardiac echo: CONCLUSIONS: - Exam indication: dyspnea - The left ventricle is normal in size. Left ventricular systolic function is hyperdynamic. EF = 70 5% (visual est.) - The right ventricle is normal in size. Right ventricular systolic function is normal. - Mild MAC with mild anterior mitral leaflet thickening. Trivial MR. - 1+ TR. RVSP 31mmHg. - Mild aortic sclerosis with trivial AI. - Trivial PI. - No prior echocardiographic exam available for comparison. Dizziness and giddiness 05/13/200912/03 Cervicalgia 05/13/2009 12/23/2015 Meniere's disease, unspecified 05/20/2008 03/16/2016 Overview: Dr. Torres Casanova, low-sodium diet, consider Dyazide if worse, per 05/09 Disturbances of sensation of smell and taste 8 05/22/2017 Chronic maxillary sinusitis 02/13/2008 05/22/2017 Overview: [place]; saw Dr. Casanova re: ? Meniere's 05/09; LOW-SODIUM DIET (2 g, consider Dyazide) Unspecified constipation 04/30/2006 Overview: Dr. Juarez Peptic ulcer, unspecified si te, unspecified as acute or chronic, without mention of hemorrhage, perforation, or obstruction 03/19/2007 Overview: CAUSED BY FELDENE for 3 months Generalized osteoarthrosis, unspecified site 12/23/2015 Overview: knees Myalgia and myositis 017 Overview: Dr. Guzman made dx () Gout, unspecified 12/23/2015 Overview: great toe, several episodes Peptic ulcer, unspecified si te, unspecified as acute or chronic, without mention of hemorrhage, perforation, or obstruction 03/19/2007 Overview: CAUSED BY FELDENE for 3 months Paroxysmal supraventricular tachycardia 03/19/2007 Overview: ablation 01/2002 ( in [place], [facility]), follows with Dr. Moreno (prn only) documented as of this encounter (statuses as of 03/12/2024) [facility] History of Past illness Narrative* Problem Noted Date Diagnosed Date Resolved Date Nausea 03/20/2018 04/29/2019 Overview: Added automatically from request for surgery [id number] Ageusia 02/23/2016 05/22/2017 Glossitis 02/23/2016 05/22/2017 Syncope and collapse 04/30/2014 016 Overview: [place] lightheaded, walked to cough and passed out for a few minutes. Witnessed by . No tongue biting, incontinence or post-ictal type confusion. orthostatic VS, EKG WNL Cardiac echo: CONCLUSIONS: - Exam indication: dyspnea - The left ventricle is normal in size. Left ventricular systolic function is hyperdynamic. EF = 70 5% (visual est.) - The right ventricle is normal in size. Right ventricular systolic function is normal. - Mild MAC with mild anterior mitral leaflet thickening. Trivial MR. - 1+ TR. RVSP 31mmHg. - Mild aortic sclerosis with trivial AI. - Trivial PI. - No prior echocardiographic exam available for comparison. Dizziness and giddiness 05/13/200912/03 Cervicalgia 05/13/2009 12/23/2015 Meniere's disease, unspecified 05/20/2008 03/16/2016 Overview: Dr. Torres Casanova, low-sodium diet, consider Dyazide if worse, per 05/09 Disturbances of sensation of smell and taste 8 05/22/2017 Chronic maxillary sinusitis 02/13/2008 05/22/2017 Overview: [place]; saw Dr. Casanova re: ? Meniere's 05/09; LOW-SODIUM DIET (2 g, consider Dyazide) Unspecified constipation 04/30/2006 Overview: Dr. Juarez Peptic ulcer, unspecified si te, unspecified as acute or chronic, without mention of hemorrhage, perforation, or obstruction 03/19/2007 Overview: CAUSED BY FELDENE for 3 months Generalized osteoarthrosis, unspecified site 12/23/2015 Overview: knees Myalgia and myositis 017 Overview: Dr. Guzman made dx () Gout, unspecified 12/23/2015 Overview: great toe, several episodes Peptic ulcer, unspecified si te, unspecified as acute or chronic, without mention of hemorrhage, perforation, or obstruction 03/19/2007 Overview: CAUSED BY FELDENE for 3 months Paroxysmal supraventricular tachycardia 03/19/2007 Overview: ablation 01/2002 (Dr. joseph pandey, [facility]), follows with Dr. Moreno (prn only) documented as of this encounter (statuses as of 03/18/2024) [facility] note* Diagnosis Anxiety with depression- Primary documented in this encounter [facility] note* Diagnosis RLS (restless legs syndrome)- Primary Restless legs syndrome (RLS) Iron deficiency Iron deficiency anemia, unspecified Generalized anxiety disorder documented in this encounter [facility] note* Diagnosis Iron deficiency anemia, unspecified iron deficiency anemia type- Primary documented in this encounter [facility] note* Diagnosis Lower respiratory infection- Primary Other diseases of respiratory system, not elsewhere classified Iron deficiency anemia, unspecified iron deficiency anemia type documented in this encounter [facility] note* Diagnosis Rapid heart rate- Primary Tachycardia, unspecified SOB (shortness of breath) Shortness of breath Iron deficiency Iron deficiency anemia, unspecified [facility] Diagnosis Acute midline low back pain without sciatica [facility] Diagnosis Acute midline low back pain without sciatica- Primary Rectal pain Anal or rectal pain documented in this encounter [facility] noteNo assessment information availableWUniversity [facility]als [facility] Work Phone: Evaluation note* Diagnosis Iron deficiency anemia, unspecified iron deficiency anemia type- Primary [facility]* Diagnosis RLS (restless legs syndrome) Restless legs syndrome (RLS) [facility]* Diagnosis Bacterial sinusitis- Primary Unspecified sinusitis (chronic) documented in this encounter [facility] note* Diagnosis Disorder of bone and cartilage- Primary Disorder of bone and cartilage, unspecified Moderate persistent asthma without complication Unspecified asthma Paroxysmal supraventricular tachycardia (HCC) Paroxysmal supraventricular tachycardia Orthostatic syncope Syncope and collapse Hyperlipidemia LDL goal <130 Other and unspecified hyperlipidemia Acute midline low back pain without sciatica Rectal pain Anal or rectal pain Iron deficiency anemia, unspecified iron deficiency anemia type Lower respiratory infection Other diseases of respiratory system, not elsewhere classified Acquired hypothyroidism Unspecified hypothyroidism Anxiety with depression BPPV (benign paroxysmal positional vertigo), unspecified laterality RLS (restless legs syndrome) Restless legs syndrome (RLS) BMS (burning mouth syndrome) Glossodynia Hernia of anterior abdominal wall History of total bilateral knee replacement Asymptomatic menopausal state Asymptomatic postmenopausal status (age-related) (natural) Iron deficiency anemia secondary to inadequate dietary iron intake Iron deficiency anemia secondary to inadequate dietary iron intake Iron deficiency Iron deficiency anemia, unspecified [facility]* Diagnosis Generalized anxiety disorder- Primary Palpitations Lightheadedness Dizziness and giddiness SOB (shortness of breath) Shortness of breath [facility]* Diagnosis Pencilling of stools- Primary Abnormal feces Acquired hypothyroidism Unspecified hypothyroidism Elevated sed rate Elevated sedimentation rate [facility] Diagnosis Pencilling of stools- Primary Abnormal feces Altered bowel habits Other symptoms involving digestive system Generalized anxiety disorder Benzodiazepine dependence (HCC) Sedative, hypnotic or anxiolytic dependence, unspecified Orthostatic syncope Syncope and collapse BPPV (benign paroxysmal positional vertigo), unspecified laterality Paroxysmal supraventricular tachycardia (HCC) Paroxysmal supraventricular tachycardia Mild intermittent asthma without complication Unspecified asthma Acquired hypothyroidism Unspecified hypothyroidism Polyarthralgia Pain in joint, multiple sites Iron deficiency anemia, unspecified iron deficiency anemia type RLS (restless legs syndrome) Restless legs syndrome (RLS) [facility]* Diagnosis Erosive (osteo)arthritis- Primary Elevated sed rate Elevated sedimentation rate documented in this encounter [facility] note* Diagnosis RLS (restless legs syndrome)- Primary Restless legs syndrome (RLS) History of total bilateral knee replacement Paresthesia Disturbance of skin sensation Family history of iron deficiency Family history of anemia documented in this encounter [facility] note* Diagnosis Paresthesia Disturbance of skin sensation documented in this encounter [facility] note* Diagnosis Encounter for screening mammogram for malignant neoplasm of breast- Primary Other screening mammogram [facility]* Diagnosis RLS (restless legs syndrome) Restless legs syndrome (RLS) documented in this encounter [facility] note* Diagnosis Palpitations- Primary Shortness of breath documented in this encounter [facility] note* Diagnosis SVT (supraventricular tachycardia) (HCC)- Primary Other specified cardiac dysrhythmias Acute constipation Unspecified constipation Nausea Nausea alone documented in this encounter [facility] note* Diagnosis Chronic constipation- Primary Unspecified constipation documented in this encounter [facility] note* Diagnosis Arm laceration, left, initial encounter- Primary Encounter for immunization Need for other specified prophylactic vaccination against single bacterial disease documented in this encounter [facility] note* Diagnosis Acute constipation- Primary Unspecified constipation SVT (supraventricular tachycardia) (HCC) Other specified cardiac dysrhythmias RUY (generalized anxiety disorder) Generalized anxiety disorder Benzodiazepine dependence (HCC) Sedative, hypnotic or anxiolytic dependence, unspecified documented in this encounter [facility] note* Diagnosis Acute constipation- Primary Unspecified constipation Abnormal weight loss Loss of weight Constipation, unspecified constipation type documented in this encounter [facility] note* Diagnosis Acute constipation- Primary Unspecified constipation Anxiety due to invasive procedure RLS (restless legs syndrome) Restless legs syndrome (RLS) Benzodiazepine dependence (HCC) Sedative, hypnotic or anxiolytic dependence, unspecified documented in this encounter [facility] note* Diagnosis Acute constipation Unspecified constipation Abnormal weight loss Loss of weight Constipation, unspecified constipation type [facility]* Diagnosis RLS (restless legs syndrome) Restless legs syndrome (RLS) documented in this encounter [facility] note* Diagnosis Benzodiazepine dependence (HCC)- Primary Sedative, hypnotic or anxiolytic dependence, unspecified RLS (restless legs syndrome) Restless legs syndrome (RLS) Pencilling of stools Abnormal feces Altered bowel habits Other symptoms involving digestive system [facility]* Diagnosis Anxiety- Primary Anxiety state, unspecified [facility]* Diagnosis Acquired hypothyroidism Unspecified hypothyroidism [facility]* Diagnosis Abnormal weight loss Loss of weight Pancreatic lesion Unspecified disease of pancreas [facility]* Diagnosis Acute constipation Unspecified constipation [facility]* Diagnosis Chronic constipation- Primary Unspecified constipation Pancreatic lesion Unspecified disease of pancreas [facility] Diagnosis Pencilling of stools Abnormal feces [facility]* Diagnosis Burning mouth syndrome- Primary Glossodynia [facility]* Diagnosis Lower respiratory infection Other diseases of respiratory system, not elsewhere classified documented in this encounter [facility] note* Diagnosis Acute midline low back pain without sciatica [facility]* Diagnosis 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 Hypothyroidism, acquired Unspecified hypothyroidism Fatigue, unspecified type [facility] Diagnosis Change in bowel movement Other symptoms involving digestive system [facility] Diagnosis Encounter for screening mammogram for malignant neoplasm of breast- Primary Other screening mammogram [facility] Diagnosis 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 [facility]* Diagnosis Multinodular goiter- Primary Nontoxic multinodular goiter Painful mouth Other and unspecified diseases of the oral soft tissues Screening for lipid disorders Screening for diabetes mellitus Vitamin D deficiency Unspecified vitamin D deficiency Dyslipidemia Other and unspecified hyperlipidemia [facility]* Diagnosis Burning mouth syndrome Glossodynia [facility]* Diagnosis RLS (restless legs syndrome) Restless legs syndrome (RLS) documented in this encounter [facility] note* Diagnosis Hypothyroidism, acquired- Primary Unspecified hypothyroidism documented in this encounter [facility] note* Diagnosis Mononeuropathy- Primary Mononeuritis of unspecified site Abnormal serum level of lipase Other nonspecific abnormal serum enzyme levels Belching Flatulence, eructation, and gas pain Epigastric pain Abdominal pain, epigastric Acute peptic ulcer, site unspecified, without hemorrhage or perforation Pain in both knees, unspecified chronicity documented in this encounter [facility] note* Diagnosis Pain in both knees, unspecified chronicity documented in this encounter [facility] note* Diagnosis H pylori ulcer- Primary Gastric ulcer, unspecified as acute or chronic, without mention of hemorrhage, perforation, or obstruction documented in this encounter [facility] note* Diagnosis PUD (peptic ulcer disease)- Primary Peptic ulcer, unspecified site, unspecified as acute or chronic, without mention of hemorrhage, perforation, or obstruction H pylori ulcer Gastric ulcer, unspecified as acute or chronic, without mention of hemorrhage, perforation, or obstruction Belching Flatulence, eructation, and gas pain Hypothyroidism, acquired Unspecified hypothyroidism Burning mouth syndrome Glossodynia documented in this encounter [facility] note* Diagnosis Pancreatic cyst- Primary Cyst and pseudocyst of pancreas H. pylori infection Helicobacter pylori (H. pylori) documented in this encounter [facility] note* Diagnosis H. pylori infection Helicobacter pylori (H. 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) Malignant neoplasm of head of pancreas Screening for depression Urinary urgency Urgency of urination documented in this encounter [facility] note* Diagnosis Pancreatic adenocarcinoma (HCC)- Primary Malignant neoplasm of pancreas, part unspecified documented in this encounter [facility] note* Diagnosis Dry mouth- Primary Disturbance of salivary secretion Leg cramps Cramp of limb documented in this encounter [facility] note* Diagnosis Acute bilateral low back pain without sciatica- Primary [facility]* Diagnosis Pancreatic insufficiency (HCC)- Primary Other specified disease of pancreas documented in this encounter [facility] Discharge instructions* Attachments The following attachments cannot be sent through Care Everywhere. * [facility] Outpatient Procedure (Routine) - Closed Specialty Diagnoses / Procedures Referred By Contac t Referred To Contact [facility] Diagnoses Rapid heart rate SOB (shortness of breath) Procedures ECG COMPLETE ECG ROUTINE ECG W/LEAST 12 LDS W/I&R Kevin Andersen PA-C [id number] [place] [address] [facility] [address] [place] [address] Referral ID Status Reason Start Date Expiration Date V isits Requested Visits Authorized [id number] Closed Auto-Generate d Referral 11/06/2022 11/06/2023 1 1 [facility] for referral (narrative)* Diagnostic Procedure Only (Routine) - Closed Specialty Diagnoses / Procedures Referred By Contac t Referred To Contact XR IMAGING Diagnoses Acute midline low back pain without sciatica Procedures XR LUMBAR GENERAL 3V AP/LAT/L5-S1 RADEX SPINE LUMBOSACRAL 2/3 VIEWS Kevin Andersen PA-C [id number] [place] [address] Xr Imaging Referral ID Status Reason Start Date Expiration Date V isits Requested Visits Authorized [id number] Closed Auto-Generate d Referral 11/13/2022 12/13/2023 1 1 [facility] for referral (narrative)* Diagnostic Procedure Only (Routine) - Closed Specialty Diagnoses / Procedures Referred By Contac t Referred To Contact XR IMAGING Diagnoses Pencilling of stools Procedures XR ABDOMEN 1V SUPINE RADIOLOGIC EXAM ABDOMEN 1 VIEW Kevin Andersen PA-C [id number] [place] [address] Xr Imaging Referral ID Status Reason Start Date Expiration Date V isits Requested Visits Authorized [id number] Closed Auto-Generate d Referral 05/28/2023 06/26/2024 1 1 [facility] for referral (narrative)* Outpatient Procedure (Routine) - Pending Review Specialty Diagnoses / Procedures Referred By Contac t Referred To Contact [facility] Diagnoses Paresthesia Procedures EMG(NEURO/NI) NERVE CONDUCTION STUDIES 9-10 STUDIES Graham Flores MD [address] [place] [address] [facility] [place] [address] [place] [address] Referral ID Status Reason Start Date Expiration Date Visits Requested Visits Authorized [id number] Pending Review Auto-Generat ed Referral 08/19/2023 08/19/2024 1 1 [facility] for referral (narrative)* Diagnostic Procedure Only (Routine) - Pending Review Specialty Diagnoses / Procedures Referred By Contac t Referred To Contact BR IMAGING Diagnoses Encounter for screening mammogram for malignant neoplasm of breast Procedures KIP SCREENING SCREENING MAMMOGRAPHY BI 2-VIEW BREAST INC CAD Kevin Andersen PA-C [address] [place] [address] Br Imaging [address] [place] [phone] Referral ID Status Reason Start Date Expiration Date Visits Requested Visits Authorized [id number] Pending Review Auto-Generat ed Referral 10/03/2023 11/01/2024 1 1 [facility] for referral (narrative)* Outpatient Procedure (Routine) - Authorized Specialty Diagnoses / Procedures Referred By Contac t Referred To Contact [facility] Diagnoses Palpitations Shortness of breath Procedures ECHO ECHO TTHRC R-T 2D W/WOM-MODE COMPL SPEC&COLR D Anitra Mancera APRN.CONSUMER LOAN OFFICER [address] [place] [address] [facility] [place] [address] [place] [address] Referral ID Status Reason Start Date Expiration Date Visits Requested Visits Authorized [id number] Authorized Auto-Generat ed Referral 01/17/2024 01/16/2025 1 1 * Diagnostic Procedure Only (Routine) - Authorized Specialty Diagnoses / Procedures Referred By Contact Referred To Contact MOLECULAR & FUNCTIONAL IMAGING Diagnoses Palpitations Shortness of breath Procedures NM CARDIAC PERF STRESS/PHARM MYOCARDIAL SPECT MULTIPLE STUDIES Anitra Mancera APRN.CONSUMER LOAN OFFICER [address] [place] [address] Molecular & Functional Imaging [address] [place] [address] Referral ID Status Reason Start Date Expiration Date Visits Requested Visits Authorized [id number] Authorized Auto-Generat ed Referral 01/17/2024 02/15/2025 1 1 * Outpatient Procedure (Routine) - Pending Review Specialty Diagnoses / Procedures Referred By Contac t Referred To Contact [facility] Diagnoses Palpitations Procedures ECG COMPLETE ECG ROUTINE ECG W/LEAST 12 LDS W/I&R Anitra Mancera APRN.CONSUMER LOAN OFFICER [address] [place] [address] [facility] [place] [address] [place] [address] Referral ID Status Reason Start Date Expiration Date Visits Requested Visits Authorized [id number] Pending Review Auto-Generat ed Referral 01/17/2024 01/16/2025 1 [facility] Procedure Only (Routine) - Closed Specialty Diagnoses / Procedures Referred By Contac t Referred To Contact XR IMAGING Diagnoses Acute constipation Procedures XR ABDOMEN 1V SUPINE RADIOLOGIC EXAM ABDOMEN 1 VIEW Kevin Andersen PA-C [address] [place] [address] [place] [address] Referral ID Status Reason Start Date Expiration Date V isits Requested Visits Authorized [id number] Closed Auto-Generate d Referral 03/24/2024 04/23/2025 1 1 [facility] for referral (narrative)* Diagnostic Procedure Only (Routine) - Closed Specialty Diagnoses / Procedures Referred By Stephanie collado Referred To Contact XR IMAGING Diagnoses Pencilling of stools Procedures XR ABDOMEN 1V SUPINE RADIOLOGIC EXAM ABDOMEN 1 VIEW Kevin Andersen PA-C [address] [place] [address] [place] [address] Referral ID Status Reason Start Date Expiration Date V isits Requested Visits Authorized [id number] Closed Auto-Generate d Referral 05/28/2023 06/26/2024 1 1 [facility] for referral (narrative)* Diagnostic Procedure Only (Routine) - Closed Specialty Diagnoses / Procedures Referred By Stephanie collado Referred To Contact XR IMAGING Diagnoses Acute midline low back pain without sciatica Procedures XR LUMBAR GENERAL 3V AP/LAT/L5-S1 RADEX SPINE LUMBOSACRAL 2/3 VIEWS Kevin Andersen PA-C [address] [place] [address] [place] [address] Referral ID Status Reason Start Date Expiration Date V isits Requested Visits Authorized [id number] Closed Auto-Generate d Referral 11/13/2022 12/13/2023 1 1 [facility] for referral (narrative)* Diagnostic Procedure Only (Routine) - New Request Specialty Diagnoses / Procedures Referred By Stephanie collado Referred To Contact BR IMAGING Diagnoses Encounter for screening mammogram for malignant neoplasm of breast Procedures KIP SCREENING W DRISS SCREENING DIGITAL BREAST TOMOSYNTHESIS BI SCREENING MAMMOGRAPHY BI 2-VIEW BREAST INC CAD Anitra Mancera APRN.AUTOMOBILE RENTAL AGENT [address] [place] [address] Br Imaging [address] [place] [address] Referral ID Status Reason Start Date Expiration Date Visits Requested Visits Authorized [id number] New Request Auto-Generat ed Referral 10/09/2025 1 1 [facility] for referral (narrative)* Diagnostic Procedure Only (Routine) - Closed Specialty Diagnoses / Procedures Referred By Contac t Referred To Contact XR IMAGING Diagnoses Pain in both knees, unspecified chronicity Procedures XR KNEE GENERAL 4V AP BOTH/PA BOTH/LAT/MERC BILATERAL XR KNEE GENERAL 4V AP BOTH/PA BOTH/LAT/MERC BILATERAL RADIOLOGIC EXAM KNEE COMPLETE 4/MORE VIEWS Anitra Mancera APRN.AUTOMOBILE RENTAL AGENT [address] [place] [address] [place] [address] Referral ID Status Reason Start Date Expiration Date V isits Requested Visits Authorized [id number] Closed Auto-Generate d Referral 11/23/2024 12/23/2025 1 1 [facility] for visit Narrative* Outpatient Procedure (Routine) - Closed Specialty Diagnoses / Procedures Referred By Contac t Referred To Contact NE[facility]OLOGICAL [facility]STITUTE Diagnoses Paresthesia Procedures EMG(NEURO/NI) NERVE CONDUCTION STUDIES 9-10 STUDIES Graham Flores MD [address] [place] [address] [facility] [place] [address] [place] [address] Referral ID Status Reason Start Date Expiration Date V isits Requested Visits Authorized [id number] Closed Auto-Generate d Referral 08/19/2023 08/19/2024 1 1 [facility] for visit Narrative* Diagnostic Procedure Only (Routine) - Closed Specialty Diagnoses / Procedures Referred By Contac t Referred To Contact Radiology / [facility] Diagnoses 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] Okay per Zoe Procedures US PELVIS Sahheed, Anitra Avery, COMPUTER SYSTEM SPECIALIST.AUTOMOBILE RENTAL AGENT [address] [place] [address] Radio [facility] [address] [place] [address] Referral ID Status Reason Start Date Expiration Date Visits Re quested Visits Authorized [id number] Closed 06/16/2024 06/16/2024 1 1 [facility] for visit Narrative* Diagnostic Procedure Only (Routine) - Closed Specialty Diagnoses / Procedures Referred By Contac t Referred To Contact XR IMAGING Diagnoses Acute constipation Procedures XR ABDOMEN 1V SUPINE RADIOLOGIC EXAM ABDOMEN 1 VIEW Kevin Andersen PA-C [address] [place] [address] [place] [address] Referral ID Status Reason Start Date Expiration Date V isits Requested Visits Authorized [id number] Closed Auto-Generate d Referral 03/24/2024 04/23/2025 1 1 [facility] for visit Narrative* Diagnostic Procedure Only (Routine) - Closed Specialty Diagnoses / Procedures Referred By Contac t Referred To Contact XR IMAGING Diagnoses Pencilling of stools Procedures XR ABDOMEN 1V SUPINE RADIOLOGIC EXAM ABDOMEN 1 VIEW Kevin Andersen PA-C [address] [place] [address] [place] [address] Referral ID Status Reason Start Date Expiration Date V isits Requested Visits Authorized [id number] Closed Auto-Generate d Referral 05/28/2023 06/26/2024 1 1 [facility] for visit Narrative* Diagnostic Procedure Only (Routine) - Closed Specialty Diagnoses / Procedures Referred By Contac t Referred To Contact XR IMAGING Diagnoses Acute midline low back pain without sciatica Procedures XR LUMBAR GENERAL 3V AP/LAT/L5-S1 RADEX SPINE LUMBOSACRAL 2/3 VIEWS Kevin Andersen, TABITHA [address] [place] [address] [place] [address] Referral ID Status Reason Start Date Expiration Date V isits Requested Visits Authorized [id number] Closed Auto-Generate d Referral 11/13/2022 12/13/2023 1 1 [facility] for visit Narrative* Diagnostic Procedure Only (Routine) - Closed Specialty Diagnoses / Procedures Referred By Contac t Referred To Contact XR IMAGING Diagnoses Pain in both knees, unspecified chronicity Procedures XR KNEE GENERAL 4V AP BOTH/PA BOTH/LAT/MERC BILATERAL XR KNEE GENERAL 4V AP BOTH/PA BOTH/LAT/MERC BILATERAL RADIOLOGIC EXAM KNEE COMPLETE 4/MORE VIEWS Anitra Mancera, COMPUTER SYSTEM SPECIALIST.AUTOMOBILE RENTAL AGENT [address] [place] [address] [place] [address] Referral ID Status Reason Start Date Expiration Date V isits Requested Visits Authorized [id number] Closed Auto-Generate d Referral 11/23/2024 12/23/2025 1 1 [facility] for visit Narrative* Auth/Cert (Routine) Specialty Diagnoses / Procedures Referred By Contac t Referred To Contact Diagnoses Other specified diseases of pancreas Procedures RI ESOPHAGOSCOPY FLEXIBLE TRANSORAL ULTRASOUND EXAM ESOPHAGOSCOPIC ULTRASOUND EXAM Quinten Franco MD [address] [facility] [address] [place] [address] Phone: tel: fax: [facility] Endoscopy [address] [place] [address] Phone: tel: Referral ID Status Reason Start Date Expiration Date Visits Re quested Visits Authorized [id number] 1 1 [facility] Health Summary Purpose Family History Relationship Condition Age at Onset Recorded Date/T bradly father Malignant neoplasm of colon Unknown Coronary artery disease Unknown mother Coronary artery disease Unknown sister Cerebrovascular accident (CVA) Unknown brother Malignant neoplasm Unknown Advance Directives Documents on File Type Date Recorded 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 Advance Directives and Living Will Power of Delicatessen Goods Stock Clerk Documents on File Type Date Recorded 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 Advance Directive(s) 03/24/2018 1:28 PM Advance Directive(s) 01/23/2018 7:10 AM Advance Directive Response Recorded Date/ Time Advance Directives Yes May 04 4 3:19am Living Will Yes July 18 0 7:44pm Power of Delicatessen Goods Stock Clerk Yes [place] [address] 2 020 7:44pm Chief Complaint and Reason for Visit Chief Complaint SCREENING Reason for Referral Specialty Diagnoses / Procedures Referred By Contac t Referred To Contact Cardiology Diagnoses Palpitations Lightheadedness SOB (shortness of breath) Procedures CONSULT TO CARDIOLOGY OFFICE/OUTPATIENT [facility] 60-74 MINUTES Kevin Andersen PA-C [address] [place] [address] Referral ID Status Reason Start Date Expiration Date Visits Requested Visits Authorized [id number] Authorized PCP Requested Referral 01/22/2023 01/22/2024 1 1 Specialty Diagnoses / Procedures Referred By Contac t Referred To Contact [facility] Diagnoses Palpitations Lightheadedness SOB (shortness of breath) Procedures ECG COMPLETE ECG ROUTINE ECG W/LEAST 12 LDS W/I&R Kevin Andersen PA-C [address] [place] [address] [facility] [place] [address] [place] [address] Referral ID Status Reason Start Date Expiration Date V isits Requested Visits Authorized [id number] Closed Auto-Generate d Referral 01/22/2023 01/22/2024 1 1 Specialty Diagnoses / Procedures Referred By Contac t Referred To Contact Rheumatology Diagnoses Erosive (osteo)arthritis Elevated sed rate Procedures CONSULT TO RHEUM/IMMUN DISEASE OFFICE/OUTPATIENT [facility] 60-74 MINUTES Kevin Andersen PA-C [address] [place] [address] Referral ID Status Reason Start Date Expiration Date Visits Requested Visits Authorized [id number] Authorized PCP Requested Referral 07/05/2023 07/04/2024 1 1 Specialty Diagnoses / Procedures Referred By Contac t Referred To Contact Gastroenterology Diagnoses Chronic constipation Procedures CONSULT TO GASTROENTEROLOGY OFFICE/OUTPATIENT [facility] 60 MINUTES Anitra Mancera APRN.CONSUMER LOAN OFFICER [address] [place] [address] Referral ID Status Reason Start Date Expiration Date Visits Requested Visits Authorized [id number] Authorized PCP Requested Referral 02/06/2024 02/05/2025 1 1 Specialty Diagnoses / Procedures Referred By Contac t Referred To Contact Gastroenterology Diagnoses Acute constipation Procedures CONSULT TO GASTROENTEROLOGY OFFICE/OUTPATIENT [facility] MDM 60 MINUTES Kevin Andersen PA-C [address] [place] [address] Referral ID Status Reason Start Date Expiration Date Visits Requested Visits Authorized [id number] Authorized PCP Requested Referral 03/24/2024 03/24/2025 1 1 Specialty Diagnoses / Procedures Referred By Contac t Referred To Contact XR IMAGING Diagnoses Acute constipation Procedures XR ABDOMEN 1V SUPINE RADIOLOGIC EXAM ABDOMEN 1 VIEW Kevin Andersen PA-C [address] [place] [address] [place] [address] Referral ID Status Reason Start Date Expiration Date V isits Requested Visits Authorized [id number] Closed Auto-Generate d Referral 03/24/2024 04/23/2025 1 1 Specialty Diagnoses / Procedures Referred By Contac t Referred To Contact CT IMAGING Diagnoses Acute constipation Abnormal weight loss Constipation, unspecified constipation type Procedures CT ABD/PEL W IVCON CT ABD & PELVIS W/CONTRAST Lindsey Stapleton PA-C [address] [place] [address] [place] [address] Referral ID Status Reason Start Date Expiration Date Visits Requested Visits Authorized [id number] Authorized Auto-Generat ed Referral 04/02/2024 05/02/2025 1 1 Specialty Diagnoses / Procedures Referred By Contac t Referred To Contact General Surgery Diagnoses Benzodiazepine dependence (HCC) Pencilling of stools Altered bowel habits Procedures CONSULT TO GENERAL SURGERY OFFICE/OUTPATIENT [facility] 60-74 MINUTES Kevin Andersen PA-C [address] [place] [address] Referral ID Status Reason Start Date Expiration Date Visits Requested Visits Authorized [id number] Authorized PCP Requested Referral 06/11/2023 06/10/2024 1 1 Specialty Diagnoses / Procedures Referred By Contac t Referred To Contact Gynecology Diagnoses 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 Procedures CONSULT TO GYNECOLOGY OFFICE/OUTPATIENT [facility] MDM 60 MINUTES Anitra Mancera, COMPUTER SYSTEM SPECIALIST.AUTOMOBILE RENTAL AGENT [address] [place] [address] Referral ID Status Reason Start Date Expiration Date Visits Requested Visits Authorized [id number] Authorized PCP Requested Referral Auto-Generate d Referral 06/16/2024 06/16/2025 1 1 Specialty Diagnoses / Procedures Referred By Contac t Referred To Contact Endocrinology Diagnoses Hypothyroidism, acquired Procedures CONSULT TO ENDOCRINOLOGY CONSULT TO ENDOCRINOLOGY OFFICE/OUTPATIENT [facility] 60 MINUTES Anitra Mancera APRN.AUTOMOBILE RENTAL AGENT [address] [place] [address] Referral ID Status Reason Start Date Expiration Date Visits Requested Visits Authorized [id number] Authorized PCP Requested Referral 11/11/2025 1 1 Specialty Diagnoses / Procedures Referred By Contac t Referred To Contact General Surgery Diagnoses Pancreatic cyst Procedures CONSULT TO GENERAL SURGERY CONSULT TO GENERAL SURGERY OFFICE/OUTPATIENT [facility] 60 MINUTES Anitra Mancera APRN.AUTOMOBILE RENTAL AGENT [address] [place] [address] Referral ID Status Reason Start Date Expiration Date Visits Requested Visits Authorized [id number] Authorized PCP Requested Referral 12/18/2024 12/18/2025 1 1 Additional Source Comments INFORMATION SOURCE (unrecogn ized section and content) DATE CREATED AUTHOR 04/03/2019 [facility] DATE CREATED AUTHOR AUTHOR'S ORGANIZ ATION 09/25/2019 [facility] DATE CREATED AUTHOR AUTHOR'S ORGANIZ ATION 03/11/2021 [facility] DATE CREATED AUTHOR AUTHOR'S ORGANIZ ATION 04/14/2021 [facility] DATE CREATED AUTHOR AUTHOR'S ORGANIZ ATION 04/11/2025 [facility] DATE CREATED AUTHOR AUTHOR'S ORGANIZ ATION 05/12/2025 [facility] DATE CREATED AUTHOR AUTHOR'S ORGANIZ ATION 05/12/2025 [facility] Source Comments (unrecognize d section and content) In the event this informatio n is protected by the Federal Confidentiality of Alcohol and Drug Abuse Patient Records regulations: The Federal rules restrict any use of the information to criminally investigate or prosecute any alcohol or drug abuse patient.[facility] the event this information is protected by the Federal Confidentiality of Alcohol and Drug Abuse Patient Records regulations: The Federal rules restrict any use of the information to criminally investigate or prosecute any alcohol or drug abuse patient.[facility] the event this information is protected by the Federal Confidentiality of Alcohol and Drug Abuse Patient Records regulations: The Federal rules restrict any use of the information to criminally investigate or prosecute any alcohol or drug abuse patient.[facility] the event this information is protected by the Federal Confidentiality of Alcohol and Drug Abuse Patient Records regulations: The Federal rules restrict any use of the information to criminally investigate or prosecute any alcohol or drug abuse patient.[facility] the event this information is protected by the Federal Confidentiality of Alcohol and Drug Abuse Patient Records regulations: The Federal rules restrict any use of the information to criminally investigate or prosecute any alcohol or drug abuse patient.[facility] the event this information is protected by the Federal Confidentiality of Alcohol and Drug Abuse Patient Records regulations: The Federal rules restrict any use of the information to criminally investigate or prosecute any alcohol or drug abuse patient.[facility] the event this information is protected by the Federal Confidentiality of Alcohol and Drug Abuse Patient Records regulations: The Federal rules restrict any use of the information to criminally investigate or prosecute any alcohol or drug abuse patient.[facility] the event this information is protected by the Federal Confidentiality of Alcohol and Drug Abuse Patient Records regulations: The Federal rules restrict any use of the information to criminally investigate or prosecute any alcohol or drug abuse patient.[facility] the event this information is protected by the Federal Confidentiality of Alcohol and Drug Abuse Patient Records regulations: The Federal rules restrict any use of the information to criminally investigate or prosecute any alcohol or drug abuse patient.[facility] the event this information is protected by the Federal Confidentiality of Alcohol and Drug Abuse Patient Records regulations: The Federal rules restrict any use of the information to criminally investigate or prosecute any alcohol or drug abuse patient.[facility] the event this information is protected by the Federal Confidentiality of Alcohol and Drug Abuse Patient Records regulations: The Federal rules restrict any use of the information to criminally investigate or prosecute any alcohol or drug abuse patient.[facility] the event this information is protected by the Federal Confidentiality of Alcohol and Drug Abuse Patient Records regulations: The Federal rules restrict any use of the information to criminally investigate or prosecute any alcohol or drug abuse patient.[facility] the event this information is protected by the Federal Confidentiality of Alcohol and Drug Abuse Patient Records regulations: The Federal rules restrict any use of the information to criminally investigate or prosecute any alcohol or drug abuse patient.[facility] the event this information is protected by the Federal Confidentiality of Alcohol and Drug Abuse Patient Records regulations: The Federal rules restrict any use of the information to criminally investigate or prosecute any alcohol or drug abuse patient.[facility] the event this information is protected by the Federal Confidentiality of Alcohol and Drug Abuse Patient Records regulations: The Federal rules restrict any use of the information to criminally investigate or prosecute any alcohol or drug abuse patient.[facility] the event this information is protected by the Federal Confidentiality of Alcohol and Drug Abuse Patient Records regulations: The Federal rules restrict any use of the information to criminally investigate or prosecute any alcohol or drug abuse patient.[facility] the event this information is protected by the Federal Confidentiality of Alcohol and Drug Abuse Patient Records regulations: The Federal rules restrict any use of the information to criminally investigate or prosecute any alcohol or drug abuse patient.[facility] the event this information is protected by the Federal Confidentiality of Alcohol and Drug Abuse Patient Records regulations: The Federal rules restrict any use of the information to criminally investigate or prosecute any alcohol or drug abuse patient.[facility] the event this information is protected by the Federal Confidentiality of Alcohol and Drug Abuse Patient Records regulations: The Federal rules restrict any use of the information to criminally investigate or prosecute any alcohol or drug abuse patient.[facility] the event this information is protected by the Federal Confidentiality of Alcohol and Drug Abuse Patient Records regulations: The Federal rules restrict any use of the information to criminally investigate or prosecute any alcohol or drug abuse patient.[facility] the event this information is protected by the Federal Confidentiality of Alcohol and Drug Abuse Patient Records regulations: The Federal rules restrict any use of the information to criminally investigate or prosecute any alcohol or drug abuse patient.[facility] the event this information is protected by the Federal Confidentiality of Alcohol and Drug Abuse Patient Records regulations: The Federal rules restrict any use of the information to criminally investigate or prosecute any alcohol or drug abuse patient.[facility] the event this information is protected by the Federal Confidentiality of Alcohol and Drug Abuse Patient Records regulations: The Federal rules restrict any use of the information to criminally investigate or prosecute any alcohol or drug abuse patient.[facility] the event this information is protected by the Federal Confidentiality of Alcohol and Drug Abuse Patient Records regulations: The Federal rules restrict any use of the information to criminally investigate or prosecute any alcohol or drug abuse patient.[facility] the event this information is protected by the Federal Confidentiality of Alcohol and Drug Abuse Patient Records regulations: The Federal rules restrict any use of the information to criminally investigate or prosecute any alcohol or drug abuse patient.[facility] the event this information is protected by the Federal Confidentiality of Alcohol and Drug Abuse Patient Records regulations: The Federal rules restrict any use of the information to criminally investigate or prosecute any alcohol or drug abuse patient.[facility] the event this information is protected by the Federal Confidentiality of Alcohol and Drug Abuse Patient Records regulations: The Federal rules restrict any use of the information to criminally investigate or prosecute any alcohol or drug abuse patient.[facility]In the event this information is protected by the Federal Confidentiality of Alcohol and Drug Abuse Patient Records regulations: The Federal rules restrict any use of the information to criminally investigate or prosecute any alcohol or drug abuse patient.[facility] HospitalIn the event this information is protected by the Federal Confidentiality of Alcohol and Drug Abuse Patient Records regulations: The Federal rules restrict any use of the information to criminally investigate or prosecute any alcohol or drug abuse patient.[facility] HospitalIn the event this information is protected by the Federal Confidentiality of Alcohol and Drug Abuse Patient Records regulations: The Federal rules restrict any use of the information to criminally investigate or prosecute any alcohol or drug abuse patient.[facility] HospitalIn the event this information is protected by the Federal Confidentiality of Alcohol and Drug Abuse Patient Records regulations: The Federal rules restrict any use of the information to criminally investigate or prosecute any alcohol or drug abuse patient.[facility] HospitalIn the event this information is protected by the Federal Confidentiality of Alcohol and Drug Abuse Patient Records regulations: The Federal rules restrict any use of the information to criminally investigate or prosecute any alcohol or drug abuse patient.[facility] HospitalIn the event this information is protected by the Federal Confidentiality of Alcohol and Drug Abuse Patient Records regulations: The Federal rules restrict any use of the information to criminally investigate or prosecute any alcohol or drug abuse patient.[facility] HospitalIn the event this information is protected by the Federal Confidentiality of Alcohol and Drug Abuse Patient Records regulations: The Federal rules restrict any use of the information to criminally investigate or prosecute any alcohol or drug abuse patient.[facility] HospitalIn the event this information is protected by the Federal Confidentiality of Alcohol and Drug Abuse Patient Records regulations: The Federal rules restrict any use of the information to criminally investigate or prosecute any alcohol or drug abuse patient.[facility] HospitalIn the event this information is protected by the Federal Confidentiality of Alcohol and Drug Abuse Patient Records regulations: The Federal rules restrict any use of the information to criminally investigate or prosecute any alcohol or drug abuse patient.[facility] HospitalIn the event this information is protected by the Federal Confidentiality of Alcohol and Drug Abuse Patient Records regulations: The Federal rules restrict any use of the information to criminally investigate or prosecute any alcohol or drug abuse patient.[facility]In the event this information is protected by the Federal Confidentiality of Alcohol and Drug Abuse Patient Records regulations: The Federal rules restrict any use of the information to criminally investigate or prosecute any alcohol or drug abuse patient.[facility] HospitalIn the event this information is protected by the Federal Confidentiality of Alcohol and Drug Abuse Patient Records regulations: The Federal rules restrict any use of the information to criminally investigate or prosecute any alcohol or drug abuse patient.[facility] HospitalIn the event this information is protected by the Federal Confidentiality of Alcohol and Drug Abuse Patient Records regulations: The Federal rules restrict any use of the information to criminally investigate or prosecute any alcohol or drug abuse patient.[facility]In the event this information is protected by the Federal Confidentiality of Alcohol and Drug Abuse Patient Records regulations: The Federal rules restrict any use of the information to criminally investigate or prosecute any alcohol or drug abuse patient.[facility] HospitalIn the event this information is protected by the Federal Confidentiality of Alcohol and Drug Abuse Patient Records regulations: The Federal rules restrict any use of the information to criminally investigate or prosecute any alcohol or drug abuse patient.[facility]In the event this information is protected by the Federal Confidentiality of Alcohol and Drug Abuse Patient Records regulations: The Federal rules restrict any use of the information to criminally investigate or prosecute any alcohol or drug abuse patient.[facility] HospitalIn the event this information is protected by the Federal Confidentiality of Alcohol and Drug Abuse Patient Records regulations: The Federal rules restrict any use of the information to criminally investigate or prosecute any alcohol or drug abuse patient.[facility]In the event this information is protected by the Federal Confidentiality of Alcohol and Drug Abuse Patient Records regulations: The Federal rules restrict any use of the information to criminally investigate or prosecute any alcohol or drug abuse patient.[facility] HospitalIn the event this information is protected by the Federal Confidentiality of Alcohol and Drug Abuse Patient Records regulations: The Federal rules restrict any use of the information to criminally investigate or prosecute any alcohol or drug abuse patient.[facility] HospitalIn the event this information is protected by the Federal Confidentiality of Alcohol and Drug Abuse Patient Records regulations: The Federal rules restrict any use of the information to criminally investigate or prosecute any alcohol or drug abuse patient.[facility] HospitalIn the event this information is protected by the Federal Confidentiality of Alcohol and Drug Abuse Patient Records regulations: The Federal rules restrict any use of the information to criminally investigate or prosecute any alcohol or drug abuse patient.[facility] HospitalIn the event this information is protected by the Federal Confidentiality of Alcohol and Drug Abuse Patient Records regulations: The Federal rules restrict any use of the information to criminally investigate or prosecute any alcohol or drug abuse patient.[facility]In the event this information is protected by the Federal Confidentiality of Alcohol and Drug Abuse Patient Records regulations: The Federal rules restrict any use of the information to criminally investigate or prosecute any alcohol or drug abuse patient.[facility]In the event this information is protected by the Federal Confidentiality of Alcohol and Drug Abuse Patient Records regulations: The Federal rules restrict any use of the information to criminally investigate or prosecute any alcohol or drug abuse patient.[facility]In the event this information is protected by the Federal Confidentiality of Alcohol and Drug Abuse Patient Records regulations: The Federal rules restrict any use of the information to criminally investigate or prosecute any alcohol or drug abuse patient.[facility]In the event this information is protected by the Federal Confidentiality of Alcohol and Drug Abuse Patient Records regulations: The Federal rules restrict any use of the information to criminally investigate or prosecute any alcohol or drug abuse patient.[facility]In the event this information is protected by the Federal Confidentiality of Alcohol and Drug Abuse Patient Records regulations: The Federal rules restrict any use of the information to criminally investigate or prosecute any alcohol or drug abuse patient.[facility] HospitalIn the event this information is protected by the Federal Confidentiality of Alcohol and Drug Abuse Patient Records regulations: The Federal rules restrict any use of the information to criminally investigate or prosecute any alcohol or drug abuse patient.[facility] HospitalIn the event this information is protected by the Federal Confidentiality of Alcohol and Drug Abuse Patient Records regulations: The Federal rules restrict any use of the information to criminally investigate or prosecute any alcohol or drug abuse patient.[facility]In the event this information is protected by the Federal Confidentiality of Alcohol and Drug Abuse Patient Records regulations: The Federal rules restrict any use of the information to criminally investigate or prosecute any alcohol or drug abuse patient.[facility]In the event this information is protected by the Federal Confidentiality of Alcohol and Drug Abuse Patient Records regulations: The Federal rules restrict any use of the information to criminally investigate or prosecute any alcohol or drug abuse patient.[facility]In the event this information is protected by the Federal Confidentiality of Alcohol and Drug Abuse Patient Records regulations: The Federal rules restrict any use of the information to criminally investigate or prosecute any alcohol or drug abuse patient.[facility]In the event this information is protected by the Federal Confidentiality of Alcohol and Drug Abuse Patient Records regulations: The Federal rules restrict any use of the information to criminally investigate or prosecute any alcohol or drug abuse patient.[facility] HospitalIn the event this information is protected by the Federal Confidentiality of Alcohol and Drug Abuse Patient Records regulations: The Federal rules restrict any use of the information to criminally investigate or prosecute any alcohol or drug abuse patient.[facility]In the event this information is protected by the Federal Confidentiality of Alcohol and Drug Abuse Patient Records regulations: The Federal rules restrict any use of the information to criminally investigate or prosecute any alcohol or drug abuse patient.[facility]In the event this information is protected by the Federal Confidentiality of Alcohol and Drug Abuse Patient Records regulations: The Federal rules restrict any use of the information to criminally investigate or prosecute any alcohol or drug abuse patient.[facility]In the event this information is protected by the Federal Confidentiality of Alcohol and Drug Abuse Patient Records regulations: The Federal rules restrict any use of the information to criminally investigate or prosecute any alcohol or drug abuse patient.[facility]In the event this information is protected by the Federal Confidentiality of Alcohol and Drug Abuse Patient Records regulations: The Federal rules restrict any use of the information to criminally investigate or prosecute any alcohol or drug abuse patient.[facility]In the event this information is protected by the Federal Confidentiality of Alcohol and Drug Abuse Patient Records regulations: The Federal rules restrict any use of the information to criminally investigate or prosecute any alcohol or drug abuse patient.[facility]In the event this information is protected by the Federal Confidentiality of Alcohol and Drug Abuse Patient Records regulations: The Federal rules restrict any use of the information to criminally investigate or prosecute any alcohol or drug abuse patient.[facility]In the event this information is protected by the Federal Confidentiality of Alcohol and Drug Abuse Patient Records regulations: The Federal rules restrict any use of the information to criminally investigate or prosecute any alcohol or drug abuse patient.[facility]In the event this information is protected by the Federal Confidentiality of Alcohol and Drug Abuse Patient Records regulations: The Federal rules restrict any use of the information to criminally investigate or prosecute any alcohol or drug abuse patient.[facility]In the event this information is protected by the Federal Confidentiality of Alcohol and Drug Abuse Patient Records regulations: The Federal rules restrict any use of the information to criminally investigate or prosecute any alcohol or drug abuse patient.[facility]In the event this information is protected by the Federal Confidentiality of Alcohol and Drug Abuse Patient Records regulations: The Federal rules restrict any use of the information to criminally investigate or prosecute any alcohol or drug abuse patient.[facility]In the event this information is protected by the Federal Confidentiality of Alcohol and Drug Abuse Patient Records regulations: The Federal rules restrict any use of the information to criminally investigate or prosecute any alcohol or drug abuse patient.[facility]In the event this information is protected by the Federal Confidentiality of Alcohol and Drug Abuse Patient Records regulations: The Federal rules restrict any use of the information to criminally investigate or prosecute any alcohol or drug abuse patient.[facility]In the event this information is protected by the Federal Confidentiality of Alcohol and Drug Abuse Patient Records regulations: The Federal rules restrict any use of the information to criminally investigate or prosecute any alcohol or drug abuse patient.[facility]In the event this information is protected by the Federal Confidentiality of Alcohol and Drug Abuse Patient Records regulations: The Federal rules restrict any use of the information to criminally investigate or prosecute any alcohol or drug abuse patient.[facility]In the event this information is protected by the Federal Confidentiality of Alcohol and Drug Abuse Patient Records regulations: The Federal rules restrict any use of the information to criminally investigate or prosecute any alcohol or drug abuse patient.[facility]In the event this information is protected by the Federal Confidentiality of Alcohol and Drug Abuse Patient Records regulations: The Federal rules restrict any use of the information to criminally investigate or prosecute any alcohol or drug abuse patient.[facility]In the event this information is protected by the Federal Confidentiality of Alcohol and Drug Abuse Patient Records regulations: The Federal rules restrict any use of the information to criminally investigate or prosecute any alcohol or drug abuse patient.[facility]In the event this information is protected by the Federal Confidentiality of Alcohol and Drug Abuse Patient Records regulations: The Federal rules restrict any use of the information to criminally investigate or prosecute any alcohol or drug abuse patient.[facility]In the event this information is protected by the Federal Confidentiality of Alcohol and Drug Abuse Patient Records regulations: The Federal rules restrict any use of the information to criminally investigate or prosecute any alcohol or drug abuse patient.[facility]In the event this information is protected by the Federal Confidentiality of Alcohol and Drug Abuse Patient Records regulations: The Federal rules restrict any use of the information to criminally investigate or prosecute any alcohol or drug abuse patient.[facility]In the event this information is protected by the Federal Confidentiality of Alcohol and Drug Abuse Patient Records regulations: The Federal rules restrict any use of the information to criminally investigate or prosecute any alcohol or drug abuse patient.[facility]In the event this information is protected by the Federal Confidentiality of Alcohol and Drug Abuse Patient Records regulations: The Federal rules restrict any use of the information to criminally investigate or prosecute any alcohol or drug abuse patient.[facility]In the event this information is protected by the Federal Confidentiality of Alcohol and Drug Abuse Patient Records regulations: The Federal rules restrict any use of the information to criminally investigate or prosecute any alcohol or drug abuse patient.[facility]In the event this information is protected by the Federal Confidentiality of Alcohol and Drug Abuse Patient Records regulations: The Federal rules restrict any use of the information to criminally investigate or prosecute any alcohol or drug abuse patient.[facility]In the event this information is protected by the Federal Confidentiality of Alcohol and Drug Abuse Patient Records regulations: The Federal rules restrict any use of the information to criminally investigate or prosecute any alcohol or drug abuse patient.[facility]In the event this information is protected by the Federal Confidentiality of Alcohol and Drug Abuse Patient Records regulations: The Federal rules restrict any use of the information to criminally investigate or prosecute any alcohol or drug abuse patient.[facility]In the event this information is protected by the Federal Confidentiality of Alcohol and Drug Abuse Patient Records regulations: The Federal rules restrict any use of the information to criminally investigate or prosecute any alcohol or drug abuse patient.[facility]In the event this information is protected by the Federal Confidentiality of Alcohol and Drug Abuse Patient Records regulations: The Federal rules restrict any use of the information to criminally investigate or prosecute any alcohol or drug abuse patient.[facility]In the event this information is protected by the Federal Confidentiality of Alcohol and Drug Abuse Patient Records regulations: The Federal rules restrict any use of the information to criminally investigate or prosecute any alcohol or drug abuse patient.[facility]In the event this information is protected by the Federal Confidentiality of Alcohol and Drug Abuse Patient Records regulations: The Federal rules restrict any use of the information to criminally investigate or prosecute any alcohol or drug abuse patient.[facility]In the event this information is protected by the Federal Confidentiality of Alcohol and Drug Abuse Patient Records regulations: The Federal rules restrict any use of the information to criminally investigate or prosecute any alcohol or drug abuse patient.[facility]In the event this information is protected by the Federal Confidentiality of Alcohol and Drug Abuse Patient Records regulations: The Federal rules restrict any use of the information to criminally investigate or prosecute any alcohol or drug abuse patient.[facility]In the event this information is protected by the Federal Confidentiality of Alcohol and Drug Abuse Patient Records regulations: The Federal rules restrict any use of the information to criminally investigate or prosecute any alcohol or drug abuse patient.[facility]In the event this information is protected by the Federal Confidentiality of Alcohol and Drug Abuse Patient Records regulations: The Federal rules restrict any use of the information to criminally investigate or prosecute any alcohol or drug abuse patient.[facility]In the event this information is protected by the Federal Confidentiality of Alcohol and Drug Abuse Patient Records regulations: The Federal rules restrict any use of the information to criminally investigate or prosecute any alcohol or drug abuse patient.[facility]In the event this information is protected by the Federal Confidentiality of Alcohol and Drug Abuse Patient Records regulations: The Federal rules restrict any use of the information to criminally investigate or prosecute any alcohol or drug abuse patient.[facility]In the event this information is protected by the Federal Confidentiality of Alcohol and Drug Abuse Patient Records regulations: The Federal rules restrict any use of the information to criminally investigate or prosecute any alcohol or drug abuse patient.[facility]In the event this information is protected by the Federal Confidentiality of Alcohol and Drug Abuse Patient Records regulations: The Federal rules restrict any use of the information to criminally investigate or prosecute any alcohol or drug abuse patient.[facility]In the event this information is protected by the Federal Confidentiality of Alcohol and Drug Abuse Patient Records regulations: The Federal rules restrict any use of the information to criminally investigate or prosecute any alcohol or drug abuse patient.[facility]In the event this information is protected by the Federal Confidentiality of Alcohol and Drug Abuse Patient Records regulations: The Federal rules restrict any use of the information to criminally investigate or prosecute any alcohol or drug abuse patient.[facility]In the event this information is protected by the Federal Confidentiality of Alcohol and Drug Abuse Patient Records regulations: The Federal rules restrict any use of the information to criminally investigate or prosecute any alcohol or drug abuse patient.[facility]In the event this information is protected by the Federal Confidentiality of Alcohol and Drug Abuse Patient Records regulations: The Federal rules restrict any use of the information to criminally investigate or prosecute any alcohol or drug abuse patient.[facility]In the event this information is protected by the Federal Confidentiality of Alcohol and Drug Abuse Patient Records regulations: The Federal rules restrict any use of the information to criminally investigate or prosecute any alcohol or drug abuse patient.[facility]In the event this information is protected by the Federal Confidentiality of Alcohol and Drug Abuse Patient Records regulations: The Federal rules restrict any use of the information to criminally investigate or prosecute any alcohol or drug abuse patient.[facility]In the event this information is protected by the Federal Confidentiality of Alcohol and Drug Abuse Patient Records regulations: The Federal rules restrict any use of the information to criminally investigate or prosecute any alcohol or drug abuse patient.[facility]In the event this information is protected by the Federal Confidentiality of Alcohol and Drug Abuse Patient Records regulations: The Federal rules restrict any use of the information to criminally investigate or prosecute any alcohol or drug abuse patient.[facility]In the event this information is protected by the Federal Confidentiality of Alcohol and Drug Abuse Patient Records regulations: The Federal rules restrict any use of the information to criminally investigate or prosecute any alcohol or drug abuse patient.[facility]In the event this information is protected by the Federal Confidentiality of Alcohol and Drug Abuse Patient Records regulations: The Federal rules restrict any use of the information to criminally investigate or prosecute any alcohol or drug abuse patient.[facility]In the event this information is protected by the Federal Confidentiality of Alcohol and Drug Abuse Patient Records regulations: The Federal rules restrict any use of the information to criminally investigate or prosecute any alcohol or drug abuse patient.[facility]In the event this information is protected by the Federal Confidentiality of Alcohol and Drug Abuse Patient Records regulations: The Federal rules restrict any use of the information to criminally investigate or prosecute any alcohol or drug abuse patient.[facility] Care Teams (unrecognized sec tion and content) Account Service Associate Relationship Specialty Start Date End Date Troy Mckeon MD [address] [place] [address] PCP - General Family Practice 06/01/21 Account Service Associate Relationship Specialty Start Date End Date Troy Mckeon MD [address] [place], [place] [id number] PCP - General Family Practice 06/01/21 Account Service Associate Relationship Specialty Start Date End Date Troy Mckeon MD [address] [place] [address] PCP - General Family Practice 06/01/21 Account Service Associate Relationship Specialty Start Date End Date Troy Mckeon MD [address] [place] [address] PCP - General Family Practice 06/01/21 Account Service Associate Relationship Specialty Start Date End Date Troy Mckeon MD [address] [place] [address] PCP - General Family Practice 06/01/21 Account Service Associate Relationship Specialty Start Date End Date Troy Mckeon MD [address] [place] [address] PCP - General Family Medicine 06/01/21 Account Service Associate Relationship Specialty Start Date End Date Kevin Andersen PA-C [address] [place] [address] PCP - General Family Medicine 10/01/22 Account Service Associate Relationship Specialty Start Date End Date Kevin Andersen PA-C [address] [place] [address] PCP - General Family Medicine 10/01/22 Account Service Associate Relationship Specialty Start Date End Date Kevin Andersen PA-C [address] [place] [address] PCP - General Family Medicine 10/01/22 Account Service Associate Relationship Specialty Start Date End Date Kevin Andersen PA-C [address] [place] [address] PCP - General Family Medicine 10/01/22 Account Service Associate Relationship Specialty Start Date End Date Kevin Andersen PA-C [address] [place] [address] PCP - General Family Medicine 10/01/22 Account Service Associate Relationship Specialty Start Date End Date Kevin Andersen PA-C [address] [place] [address] PCP - General Family Medicine 10/01/22 Account Service Associate Relationship Specialty Start Date End Date Kevin Andersen PA-C [address] [place] [address] PCP - General Family Medicine 10/01/22 Account Service Associate Relationship Specialty Start Date End Date Kevin Andersen PA-C [address] [place] [address] PCP - General Family Medicine 10/01/22 Account Service Associate Relationship Specialty Start Date End Date Kevin Andersen PA-C [address] [place] [address] PCP - General Family Medicine 10/01/22 Account Service Associate Relationship Specialty Start Date End Date Kevin Andersen PA-C [address] [place] [address] PCP - General Family Medicine 10/01/22 Account Service Associate Relationship Specialty Start Date End Date Kevin Andersen PA-C [address] [place] [address] PCP - General Family Medicine 10/01/22 Account Service Associate Relationship Specialty Start Date End Date Kevin Andersen PA-C [address] [place] [address] PCP - General Family Medicine 10/01/22 Account Service Associate Relationship Specialty Start Date End Date Kevin Andersen PA-C [address] [place] [address] PCP - General Family Medicine 10/01/22 Account Service Associate Relationship Specialty Start Date End Date Kevin Andersen PA-C [address] [place] [address] PCP - General Family Medicine 10/01/22 Account Service Associate Relationship Specialty Start Date End Date Kevin Andersen PA-C [address] [place] [address] PCP - General Family Medicine 10/01/22 Account Service Associate Relationship Specialty Start Date End Date Kevin Andersen PA-C [address] [place] [address] PCP - General Family Medicine 10/01/22 Account Service Associate Relationship Specialty Start Date End Date Kevin Andersen PA-C [address] [place] [address] PCP - General Family Medicine 10/01/22 Account Service Associate Relationship Specialty Start Date End Date Kevin Andersen PA-C [address] [place] [address] PCP - General Family Medicine 10/01/22 Account Service Associate Relationship Specialty Start Date End Date Kevin Andersen PA-C [address] [place] [address] PCP - General Family Medicine 10/01/22 Account Service Associate Relationship Specialty Start Date End Date Kevin Andersen PA-C [address] [place] [address] PCP - General Family Medicine 10/01/22 Account Service Associate Relationship Specialty Start Date End Date Kevin Andersen PA-C [address] [place] [address] PCP - General Family Medicine 10/01/22 Account Service Associate Relationship Specialty Start Date End Date Kevin Andersen PA-C [address] [place] [address] PCP - General Family Medicine 10/01/22 Account Service Associate Relationship Specialty Start Date End Date Kevin Andersen PA-C [address] [place] [address] PCP - General Family Medicine 10/01/22 Account Service Associate Relationship Specialty Start Date End Date Kevin Andersen PA-C [address] [place] [address] PCP - General Family Medicine 10/01/22 Account Service Associate Relationship Specialty Start Date End Date Kevin Andersen PA-C [address] [place] [address] PCP - General Family Medicine 10/01/22 Account Service Associate Relationship Specialty Start Date End Date Kevin Andersen PA-C [address] [place] [address] PCP - General Family Medicine 10/01/22 Account Service Associate Relationship Specialty Start Date End Date Kevin Andersen PA-C [address] [place] [address] PCP - General Family Medicine 10/01/22 Account Service Associate Relationship Specialty Start Date End Date Kevin Andersen PA-C [address] [place] [address] PCP - General Family Medicine 10/01/22 Account Service Associate Relationship Specialty Start Date End Date Kevin Andersen PA-C [address] [place] [address] PCP - General Family Medicine 10/01/22 Account Service Associate Relationship Specialty Start Date End Date Kevin Andersen PA-C [address] [place] [address] PCP - General Family Medicine 10/01/22 Account Service Associate Relationship Specialty Start Date End Date Kevin Andersen PA-C [address] [place] [address] PCP - General Family Medicine 10/01/22 Account Service Associate Relationship Specialty Start Date End Date Kevin Andersen PA-C [address] [place] [address] PCP - General Family Medicine 10/01/22 Account Service Associate Relationship Specialty Start Date End Date Kevin Andersen PA-C [address] [place] [address] PCP - General Family Medicine 10/01/22 Account Service Associate Relationship Specialty Start Date End Date Kevin Andersen PA-C [address] [place] [address] PCP - General Family Medicine 10/01/22 Account Service Associate Relationship Specialty Start Date End Date Kevin Andersen PA-C [address] [place] [address] PCP - General Family Medicine 10/01/22 Account Service Associate Relationship Specialty Start Date End Date Kevin Andersen PA-C [address] [place] [address] PCP - General Family Medicine 10/01/22 Account Service Associate Relationship Specialty Start Date End Date Kevin Andersen PA-C [address] [place] [address] PCP - General Family Medicine 10/01/22 Account Service Associate Relationship Specialty Start Date End Date Kevin Andersen PA-C [address] [place] [address] PCP - General Family Medicine 10/01/22 Account Service Associate Relationship Specialty Start Date End Date Kevin Andersen PA-C [address] [place] [address] PCP - General Family Medicine 10/01/22 Account Service Associate Relationship Specialty Start Date End Date Kevin Andersen PA-C [address] [place] [address] PCP - General Family Medicine 10/01/22 Account Service Associate Relationship Specialty Start Date End Date Kevin Andersen PA-C [address] [place] [address] PCP - General Family Medicine 10/01/22 Account Service Associate Relationship Specialty Start Date End Date Kevin Andersen PA-C [address] [place] [address] PCP - General Family Medicine 10/01/22 Account Service Associate Relationship Specialty Start Date End Date Kevin Andersen PA-C [address] [place] [address] PCP - General Family Medicine 10/01/22 Account Service Associate Relationship Specialty Start Date End Date Demetris Tabares III, MD PCP - General Family Medicine 05/04/13 05/31/21 Account Service Associate Relationship Specialty Start Date End Date Kevin Andersen PA-C [address] [place] [address] PCP - General Family Medicine 10/01/22 Account Service Associate Relationship Specialty Start Date End Date Kevin Andersen PA-C [address] [place] [address] PCP - General Family Medicine 10/01/22 Account Service Associate Relationship Specialty Start Date End Date Anitra Mancera, COMPUTER SYSTEM SPECIALIST.AUTOMOBILE RENTAL AGENT [address] [place] [address] PCP - General Family Medicine 11/03/24 Account Service Associate Relationship Specialty Start Date End Date Yanely Andersen PA-C PCP - General Family Medicine 10/01/22 11/02/24 Anitra Mancera, COMPUTER SYSTEM SPECIALIST.AUTOMOBILE RENTAL AGENT [address] [place] [address] PCP - General Family Medicine 11/03/24 Account Service Associate Relationship Specialty Start Date End Date Anitra Mancera, COMPUTER SYSTEM SPECIALIST.AUTOMOBILE RENTAL AGENT [address] [place] [address] PCP - General Family Medicine 11/03/24 Account Service Associate Relationship Specialty Start Date End Date Anitra Mancera COMPUTER SYSTEM SPECIALIST.AUTOMOBILE RENTAL AGENT [address] [place] [address] PCP - General Family Medicine 11/03/24 Account Service Associate Relationship Specialty Start Date End Date Anitra Mancera, COMPUTER SYSTEM SPECIALIST.AUTOMOBILE RENTAL AGENT [address] [place] [address] PCP - General Family Medicine 11/03/24 Account Service Associate Relationship Specialty Start Date End Date Anitra Mancera, COMPUTER SYSTEM SPECIALIST.AUTOMOBILE RENTAL AGENT [address] [place] [address] PCP - General Family Medicine 11/03/24 Account Service Associate Relationship Specialty Start Date End Date Anitra Mancera, COMPUTER SYSTEM SPECIALIST.AUTOMOBILE RENTAL AGENT [address] [place] [address] PCP - General Family Medicine 11/03/24 Account Service Associate Relationship Specialty Start Date End Date Anitra Mancera COMPUTER SYSTEM SPECIALIST.AUTOMOBILE RENTAL AGENT [address] [place] [address] PCP - General Family Medicine 11/03/24 Account Service Associate Relationship Specialty Start Date End Date Anitra Mancera, COMPUTER SYSTEM SPECIALIST.AUTOMOBILE RENTAL AGENT [address] [place] [address] PCP - General Family Medicine 11/03/24 Account Service Associate Relationship Specialty Start Date End Date Anitra Mancera, COMPUTER SYSTEM SPECIALIST.AUTOMOBILE RENTAL AGENT [address] [place] [address] PCP - General Family Medicine 11/03/24 Account Service Associate Relationship Specialty Start Date End Date Anitra Mancera, COMPUTER SYSTEM SPECIALIST.AUTOMOBILE RENTAL AGENT [address] [place] [address] PCP - General Family Medicine 11/03/24 Account Service Associate Relationship Specialty Start Date End Date Anitra Mancera, COMPUTER SYSTEM SPECIALIST.AUTOMOBILE RENTAL AGENT [address] [place] [address] PCP - General Family Medicine 11/03/24 Account Service Associate Relationship Specialty Start Date End Date Anitra Mancera COMPUTER SYSTEM SPECIALIST.AUTOMOBILE RENTAL AGENT [address] [place] [address] PCP - General Family Medicine 11/03/24 Account Service Associate Relationship Specialty Start Date End Date Anitra Mancera, COMPUTER SYSTEM SPECIALIST.AUTOMOBILE RENTAL AGENT [address] [place] [address] PCP - General Family Medicine 11/03/24 Account Service Associate Relationship Specialty Start Date End Date Anitra Mancera COMPUTER SYSTEM SPECIALIST.AUTOMOBILE RENTAL AGENT [address] [place] [address] PCP - General Family Medicine 11/03/24 Account Service Associate Relationship Specialty Start Date End Date Anitra Mancera COMPUTER SYSTEM SPECIALIST.AUTOMOBILE RENTAL AGENT [address] [place] [address] PCP - General Family Medicine 11/03/24 Account Service Associate Relationship Specialty Start Date End Date Anitra Mancera COMPUTER SYSTEM SPECIALIST.AUTOMOBILE RENTAL AGENT [address] [place] [address] PCP - General Family Medicine 11/03/24 Account Service Associate Relationship Specialty Start Date End Date Anitra Mancera, COMPUTER SYSTEM SPECIALIST.AUTOMOBILE RENTAL AGENT [address] [place] [address] PCP - General Family Medicine 11/03/24 Account Service Associate Relationship Specialty Start Date End Date Anitra Mancera COMPUTER SYSTEM SPECIALIST.AUTOMOBILE RENTAL AGENT [address] [place] [address] PCP - General Family Medicine 11/03/24 Account Service Associate Relationship Specialty Start Date End Date Anitra Mancera COMPUTER SYSTEM SPECIALIST.AUTOMOBILE RENTAL AGENT [address] [place], [place] [address] PCP - General Family Medicine 11/03/24 Account Service Associate Relationship Specialty Start Date End Date Anitra Mancera, COMPUTER SYSTEM SPECIALIST.AUTOMOBILE RENTAL AGENT [address] [place], [place] [address] PCP - General Family Medicine 11/03/24 Account Service Associate Relationship Specialty Start Date End Date Anitra Mancera, COMPUTER SYSTEM SPECIALIST.AUTOMOBILE RENTAL AGENT [address] [place], [place] [address] PCP - General Family Medicine 11/03/24 Account Service Associate Relationship Specialty Start Date End Date Anitra Mancera [address] [place] [id number] PCP - General 03/16/25 Oneyda Kaplan, YARY Nurse Navigator Oncology 03/16/25 Account Service Associate Relationship Specialty Start Date End Date Anitra Mancera, COMPUTER SYSTEM SPECIALIST.AUTOMOBILE RENTAL AGENT [address] [place], [place] [address] PCP - General Family Medicine 11/03/24 Account Service Associate Relationship Specialty Start Date End Date Anitra Mancera, COMPUTER SYSTEM SPECIALIST.AUTOMOBILE RENTAL AGENT [address] [place], [place] [address] PCP - General Family Medicine 11/03/24 Account Service Associate Relationship Specialty Start Date End Date Anitra Mancera, COMPUTER SYSTEM SPECIALIST.AUTOMOBILE RENTAL AGENT [address] [place], [place] [address] PCP - General Family Medicine 11/03/24 Reason for Visit (unrecogniz ed section and content) Reason Comments Anxiety Reason Comments outreach Reason Comments Returning Patient's Call Reason Comments Mammogram Order Reason Onset Date Comments Medication Problem 07/30/2022 Reason Comments Patient Question Reason Comments Discussion Wants lab work done to see if has any sort of deficiency Reason Comments Results Reason Comments URI Cough, congestion, b saira aches x 1 week. Home covid test negative x 2. Taking OTC Cold and Flu medicine. Reason Onset Date Comments Refill Request 10/15/2022 Reason Comments Follow Up Increased SOB and pa lpitations Reason Comments Medication Update Reason Comments Patient Update Reason Comments Medication Problem Reason Comments Rectal Problem Rectal pain X 2wks. Does not hurt when having bowel movement. Hurts to sit. No lump or bump noticed. Reason Comments Patient Update Patient Question Reason Onset Date Comments Refill Request 12/13/2022 Reason Comments Cough Pt reported nasal co ngestion, x 2 wks. Reason Comments Anxiety concern Reason Comments Orders Reason Comments Constipation Reason Comments Appointment Results Reason Comments Constipation Reason Comments Follow Up Reason Comments Patient Question Reason Comments constipation problem Patient Question Reason Comments restless legs Reason Comments Patient Request Reason Comments Orders Reason Onset Date Comments Refill Request 11/15/2023 Reason Comments Patient Update From 01/01/24 Reason Comments Palpitations 3 weeks. Worse with exertion Shortness of Breath With exertion Reason Comments Electronic Communication Reason Comments Patient Question Still constipated Reason Comments Constipation Sinusitis Reason Comments Laceration L forearm x1 hour, r ose thorn Reason Comments Follow Up Go over test results Reason Comments Constipation XR 03/24/24. Dulcolax somewhat helps Specialty Diagnoses / Procedures Referred By Stephanie collado Referred To Contact Gastroenterology Diagnoses Acute constipation Procedures CONSULT TO GASTROENTEROLOGY OFFICE/OUTPATIENT [facility] 60 MINUTES Kevin Andersen PA-C [address] [place] [address] Referral ID Status Reason Start Date Expiration Date V isits Requested Visits Authorized [id number] Closed PCP Requested Referral 03/24/2024 03/24/2025 1 1 Reason Comments Prep instructions Reason Comments Follow Up 4 week Specialty Diagnoses / Procedures Referred By Stephanie collado Referred To Contact CT IMAGING Diagnoses Acute constipation Abnormal weight loss Constipation, unspecified constipation type Procedures CT ABD/PEL W IVCON CT ABD & PELVIS W/CONTRAST Lindsey Stapleton PA-C [address] [place] [address] [place] [address] Referral ID Status Reason Start Date Expiration Date V isits Requested Visits Authorized [id number] Closed Auto-Generate d Referral 04/02/2024 05/02/2025 [address] Specialty Diagnoses / [facility] IM[facility] Diagnoses Acute constipation Abnormal weight loss Constipation, unspecified constipation type Procedures CT ABD/PEL W IVCON CT ABD & PELVIS W/CONTRAST Lindsey Stapleton PA-C [address] [place] [address] [place] [address] Reason Comments Ardelyx Reason Onset Date Comments Refill Request 05/18/2024 Reason Onset Date Comments Refill Request 06/10/2023 Referral Request 06/10/2023 Dr. Tabares Refer ral Specialty Diagnoses / Procedures [facility] Referred To Contact MR IMAGING Diagnoses Abnormal weight loss Pancreatic lesion Procedures MRI PANC/JENNIFER WO/W IVCON MRI ABDOMEN W/O & W/CONTRAST MATERIAL Lindsey Stapleton PA-C [address] [place] [address] [place] [address] Referral ID Status Reason Start Date Expiration Date V isits Requested Visits Authorized [id number] Closed Auto-Generate d Referral 04/28/2024 05/28/2025 1 1 Reason Comments Mouth/Lip Problem Reason Comments Follow Up Review CT results Reason Comments Follow Up CT scan and US Specialty Diagnoses / Procedures Referred By 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 Procedures CONSULT TO GYNECOLOGY OFFICE/OUTPATIENT [facility] MDM 60 MINUTES Anitra Mancera, COMPUTER SYSTEM SPECIALIST.AUTOMOBILE RENTAL AGENT [address] [place] [address] Referral ID Status Reason Start Date Expiration Date V isits Requested Visits Authorized [id number] Closed PCP Requested Referral Auto-Generated Referral 06/16/2024 06/16/2025 1 1 Reason Comments Mouth/Lip Problem Burning Mouth Reason Comments Sore burning mouth since July Reason Comments Release Of Medical Records Lab Results Reason Onset Date Comments requesting medication that is 11/05/2024 Reason Onset Date Comments Refill Request 11/16/2024 Reason Comments Referral Request Reason Comments Abdominal Pain Abdominal pain for 1 week, nausea since Saturday. Dark stools Reason Comments Patient concern Reason Comments Abdominal Pain Bloating, pain, naus ea Reason Comments fax referral to [facility] Dr. Rm Reason Comments H. Pylori Breath Test Reason Onset Date Comments Population Health Navigation Outreach 01/05/2025 [facility] Reason Comments Orders MRI Reason Onset Date Comments Refill Request 02/15/2025 Reason Comments Acute Visit Dry mouth, heart rac ing last night(115 bpm), one episode of diarrhea this morning. Feels like she might be having a panic attack. Reason Comments New Patient Evaluation of malign ant neoplasm of head of pancreas, Pet Imaging pushed to [facility]Ref[facility] (Dr. 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 [address] [place] [address] Phone: tel: fax: Cliff Troncoso MD [address] [facility] [address] [place] [address] Phone: tel: fax: Referral ID Status Reason Start Date Expiration Date Visits Re quested Visits Authorized [id number] Closed 03/04/2025 03/03/2026 1 1 Reason Onset Date Comments Results 03/19/2025 Reason Comments Pain, Back Low back pain x2 wee ks, recently diagnosed with pancreatic cancer Goals (unrecognized section and content) Goals may be documented in a n alternate section Scheduled Active and Recently Administ ered Medications (unrecognized section and content) Medication Order 02/08/2025 02/09/2025 02/10/2025 piperacillin-tazobactam (Zosyn) 3,375 mg in sodium chloride 0.9 % 50 mL IVPB Mini-Bag Plus (COMPLETED) 3,375 mg, IntraVENous, at 100 mL/hr, Administer over 0.5 Hours, Once, On Sat02/10/25 at 1200, For 1 dose, Mini-Bag Plus bag, Suspected Indication (Select all that apply): Surgical Site Infection 1201 (New Bag - Prov ider: Devin Zeng, COMPUTER SYSTEM SPECIALIST - TEST DESIGN ENGINEER) FOR RECORDS PERTAINING TO PATIENTS WHO ARE OR HAVE BEEN ENROLLED IN A CHEMICAL DEPENDENCY/SUBSTANCEABUSE PROGRAM, SOME INFORMATION MAY BE OMITTED. This clinical summary was aggregated from multiple sources. Caution should be exercised in using it in the provision of clinical care. This summary normalizes information from multiple sources, and as a consequence, information in this document may materially change the coding, format and clinical context of patient data. In addition, data may be omitted in some cases. CLINICAL DECISIONS SHOULD BE BASED ON THE PRIMARY CLINICAL RECORDS. [facility] [employer] [facility]. provides no warranty or guarantee of the accuracy or completeness of information in this document.
--- NOTE | 2025-05-14 22:35 | EX.ED.DYSGE1 ---
HPI History of Present Illness Chief Complaint: General Illness Informant: patient and spouse/S.O. Narrative Narrative: Presents with upper extremity tremors palpitations for the past month. Patient diagnosed recent pancreatic cancer followed by Dr. King. Patient only doing radiation therapy does not want to do chemo will finish a 5-day course of radiation in April 05 to . She was started on escitalopram 2.5 mg daily afterwards then was given up to 24 mg Zofran for nausea after radiation. States shortly after that started having some tremors palpitations. She has been off these for at least 3 weeks. She is also started on Creon with her pancreatic cancer which started yesterday. States was having symptoms since the medications and still has it since it stopped. She takes Klonopin at night 0.25 mg initially then takes the other half when she wakes up and it helps her tremors. She states in the morning when she takes that she is too drowsy. They have tried lorazepam also causing her drowsiness. She has tried a quarter tab of the 0.5 mg Klonopin states it does not help the symptoms. Denies cough. Denies any abdominal pain she only takes Tylenol 2 tabs every 8 hours which helps her symptoms. She saw her doctor states had thyroid screening that were negative. [facility] Medical History Costovertebral angle tenderness Anorexia Back pain RUY (generalized anxiety disorder) Panic Wears partial dentures Fibromyalgia Arthritis History of ulceration History of diverticulitis Panic disorder Medication monitoring encounter Ventral incisional hernia without obstruction or gangrene Decreased sense of taste Chronic sphenoidal sinusitis Chronic ethmoidal sinusitis Chronic maxillary sinusitis Family history of colon cancer in father Pre-op evaluation Hyperlipidemia Syncope and collapse Mixed hyperlipidemia PSVT (paroxysmal supraventricular tachycardia) Chest discomfort Palpitations Hypothyroidism Asthma Home Medications ?Medication ?Instructions ?Recorded ?Last Taken ?Type albuterol sulfate 90 mcg/actuation 1 puff inhalation Q4H PRN PRN 05/09/14 09/26/20 05:30 History aerosol inhaler Wheezing vit C 250 mg-vit E 90 mg-zinc 40 1 tab PO BID 11/22/17 Unknown History mg-copper 1 gc-dyfidr-brxspj capsule (PreserVision AREDS-2) polyethylene glycol 3350 17 17 g PO QDAY PRN Constipation 01/31/18 Unknown History gram/dose oral powder (Miralax) acetaminophen 325 mg tablet 500 mg (1.5385 x 325 mg) PO Q4H 05/15/19 Unknown Rx PRN PRN Mild-Moderate Pain (1-510) CBD Oral (INFORMATIONAL USE 11/10/24 Unknown History ONLY-PT USES ORAL CBD) nortriptyline 10 mg capsule 10 mg PO BID #120 caps 01/20/25 Unknown Rx levalbuterol tartrate 45 2 puff inhalation Q4 PRN 02/24/25 Unknown History mcg/actuation aerosol inhaler levothyroxine 50 mcg tablet 75 mcg PO DAILY 02/24/25 Unknown History ropinirole 0.5 mg tablet 0.5 mg PO DAILY 02/24/25 Unknown History lorazepam 0.5 mg tablet 0.5 mg PO BID PRN anxiety #60 tabs 03/12/25 Unknown Rx nitrofurantoin 1 cap PO BID 03/17/25 Unknown History monohydrate/macrocrystals 100 mg capsule ondansetron 8 mg disintegrating 8 mg PO Q12H PRN nausea and 03/17/25 Unknown Rx tablet vomiting #30 tabs dexamethasone 0.5 mg tablet 0.5 mg PO QDAY #60 tabs 04/14/25 Unknown Rx xoccmu-mhosrcrs-ruhiaol 1 cap PO TID #90 caps 05/12/25 Unknown Rx 3,000-9,500-15,000 unit capsule, delayed rel (Creon) Allergy/AdvReac Type Severity Reaction Status Date / Time cocamidopropyl betaine Allergy Intermediate Rash Verified 05/14/25 20:59 Sulfa (Sulfonamide Allergy Swelling Verified 05/14/25 20:59 Antibiotics) Environmental Allergies: AdvReac Severe NEEDS Verified 05/14/25 20:59 Uncoded (dust) FOLLOW-UP mold AdvReac Severe NEEDS Verified 05/14/25 20:59 FOLLOW-UP metoprolol AdvReac Intermediate I feel Verified 05/14/25 20:59 awful codeine AdvReac Nausea Verified 05/14/25 20:59 diphenhydramine (From AdvReac Nausea Verified 05/14/25 20:59 Benadryl) hydrocodone bitartrate (From AdvReac Nausea Verified 05/14/25 20:59 Vicodin) oxycodone HCl (From Percocet) AdvReac Nausea Verified 05/14/25 20:59 tetracycline AdvReac Nausea/Vom/ Verified 05/14/25 20:59 Diarrhea Family History Father Colon cancer CAD (coronary artery disease) Mother CAD (coronary artery disease) Sister CVA (cerebral vascular accident) Brother Cancer Lung cancer Surgical History S/P ventral herniorrhaphy History of bilateral knee replacement Hx of rotator cuff surgery S/P carpal tunnel release S/P partial colectomy History of loop recorder H/O prior ablation treatment History of appendectomy History of tonsillectomy Social History household members: spouse Smoking Status: Never smoker alcohol intake: never substance use type: does not use caffeine: No what type of physical activity do you participate in: bicycling frequency: daily duration: 15-30 minutes/day seatbelt use: always do you feel safe at home: Yes ROS ROS ED Constitutional Constitutional ED: Denies chills, fever(s) or sweats ENT ENT ED: Denies sore throat Cardiovascular Cardiovascular: Reports palpitations; Denies chest pain, leg edema or racing heartbeat Respiratory/Chest Respiratory/Chest: Denies cough, dyspnea or dyspnea on exertion Gastrointestinal Gastrointestinal: Denies abdominal pain, diarrhea, nausea or vomiting Genitourinary Genitourinary ED: Denies dysuria, hematuria or urinary frequency Musculoskeletal Musculoskeletal: Denies back pain, extremity pain or neck pain Integumentary Denies rash or wounds Neurologic Neurologic: Reports other Details: Bilateral hand tremors ; Denies headache(s), paresthesias or weakness EXAM Physical Exam Const Vital Signs: 05/14/25 20:59 05/14/25 21:26 Temperature 97.6 F L Temperature Source Oral Pulse Rate 92 Respiratory Rate 16 Respiratory Effort Normal Respiratory Pattern Normal Blood Pressure 160/91 H Blood Pressure Mean 114 Pulse Ox 100 Oxygen Delivery Method Room Air Positive well nourished and well developed General Appearance ED: well developed and NAD HEENT Reports moist mucous membranes normocephalic and atraumatic Eyes General Eye ED: Yes normal appearance of both eyes Neck full ROM Chest Wall Chest: Negative for tenderness Resp normal respiratory effort and normal air movement Effort and Inspection: symmetric chest movement; Negative for respiratory distress Cardio regular rate, regular rhythm and no murmurs Peripheral Pulses: pulses 2+ throughout GI normal to inspection, nondistended, normoactive bowel sounds and non-tender Palpation: Negative for guarding or rebound tenderness present Extremity normal to inspection General Extremety ED: Negative for edema or tenderness General Extremity: Negative for edema Neuro oriented x3 and no sensory deficits noted Neuro Narrative: Tremors with movement of the arms there is no resting tremors. Sensorium / Orientation: awake and alert Skin no rashes or lesions noted and no wounds MDM MDM MDM Narrative Medical decision making narrative: Interventions / MDM: Differential diagnosis: Palpitations, tremors, history of pancreatic cancer Diagnosis considered but do not suspect: N/A My EKG interpretation: Sinus rate of [address] or T wave changes first-degree AV block. Imaging independently reviewed and interpreted by myself: N/A External documents reviewed: [facility] report notes she was given prescription of clonazepam 0.5 mg. She had previous prescription for lorazepam 0.5 mg. Test considered but not ordered:N/A ED course: Patient palpitations ongoing. Sinus rhythm on the monitor. EKG with sinus rhythm first-degree AV block. Will check basic labs. Will reevaluate the patient. 2250: Labs are normal. Patient reassured on findings. She does get symptom relief when she takes half her tablet at night. She has both prescriptions of Ativan and clonazepam. She understands the Ativan is shorter acting. She has tried half of each which does make her drowsy. Quarter tablet each does not have effects. Discussed depending on her symptoms for her choices to take quarter versus a half tab. She states she will try half tab of Ativan tomorrow morning. She will follow-up with her doctors. All questions were answered. Re-evaluation: stable Disposition discussed with patient/family/significant other: Patient and spouse Case discussed with consulting clinician: N/A This note was generated with Bizo dictation software. It may contain incorrect words, spelling, and punctuation that were not noted in checking the note before signing. Lab Data Attestation: I reviewed the patient's lab results. Labs: Laboratory Results - last 24 hr 05/14/25 22:00 WBC 4.4 RBC 3.69 L Hgb 11.3 L Hct 33.6 L MCV 91.1 MCH 30.6 MCHC 33.6 RDW Std Deviation 49.6 H RDW Coeff of Collin 14.8 H Plt Count 338 MPV 8.9 Immature Gran % (Auto) 0.700 Neut % (Auto) 61.5 Lymph % (Auto) 13.5 L [place] % (Auto) 15.6 H Eos % (Auto) 7.6 H Baso % (Auto) 1.1 H Absolute Neuts (auto) 2.7 Absolute Lymphs (auto) 0.59 L Nucleated RBC % 0 Sodium 135 Potassium 3.7 Chloride 101 Carbon Dioxide 22.1 Anion Gap 12 BUN 16 Creatinine 0.64 L Estim Creat Clear Calc 35.97 L Est GFR (MDRD) Non-Af 85 BUN/Creatinine Ratio 25.3 H Glucose 87 Calcium 9.1 Discharge Plan Triage Chief Complaint: General Illness Other Complaint: Palpitations ED Provider: Brian Rivera Dx/Rx/DC Orders Clinical Impression: Action tremor, Palpitations Instructions: Essential Tremor (ET), ED Palpitations Prescriptions: No Action vit C,C-Lw-hpyyq-lutein-zeaxan [PreserVision AREDS-2] [id number] bg-dmdb-re-mg capsule 1 tab PO BID polyethylene glycol 3350 [Miralax] 17 gram/dose powder 17 g PO QDAY PRN (Reason: Constipation) levothyroxine 50 mcg tablet 75 mcg PO DAILY Patient Comments: 1.5 TABS SUN AND TH 1 TAB ALL OTHER DAYS (DME) CBD Oral (INFORMATIONAL USE ONLY-PT USES ORAL CBD) Oil See Rx Instructions .Route Rx Instructions: As directed levalbuterol tartrate 45 mcg/actuation HFA aerosol inhaler 2 puff inhalation Q4 PRN nitrofurantoin monohyd/m-cryst 100 mg capsule 1 cap PO BID ondansetron 8 mg tablet,disintegrating 8 mg PO Q12H PRN (Reason: nausea and vomiting) Qty: 30 0RF dexamethasone 0.5 mg tablet 0.5 mg PO QDAY Qty: 60 0RF albuterol sulfate 1 INHALER inhaler 1 puff INHALATION Q4H PRN PRN (Reason: Wheezing) acetaminophen 325 MG tablet 500 mg PO Q4H PRN PRN (Reason: Mild-Moderate Pain (1-5/10)) 0RF ropinirole 0.5 mg tablet 0.5 mg PO DAILY nortriptyline 10 mg capsule 10 mg PO BID Qty: 120 1RF lorazepam 0.5 mg tablet 0.5 mg PO BID PRN (Reason: anxiety) Qty: 60 1RF Creon 3,000-9,500- 15,000 unit capsule,delayed release(DR/EC) 1 cap PO TID Qty: 90 1RF Rx Instructions: do not exceed 10,000 unit/kg lipase per 24 hrs. with meals Primary Care Provider: Anitra Hummel Referrals: Anitra Hummel, NUCLEAR DESIGN ENGINEER [Primary Care Provider] - 1 Week Activity Restrictions/Additional Instructions: Labs with electrolytes are normal. EKG normal. Try taking your lorazepam half tab in the morning. Use your clonazepam at night. Print Language: Mohawk Disposition Disposition: Home, Self Care
[2025-05-14 22:38] LABS: Anion Gap 12 (5-15); BUN 16 mg/dL (4-19); BUN/Creat Ratio 25.3 RATIO (10-20); Calcium,Total 9.1 mg/dL (7.6-11.0); Carbon Dioxide 22.1 mmol/L (21.0-32.0); Chloride 101 mmol/L (98-108); Creatinine, Serum 0.64 mg/dL (0.70-1.20); EST Glomerular Filtration Rate 85 (>60); Estimated Creatinine Clearance 35.97 ml/min (50-250); Glucose 87 mg/dL (70-99); Potassium 3.7 mmol/L (3.3-5.1); Sodium Level 135 mmol/L (133-145)
[2025-05-14 23:06] VITALS: BP 158/89; PULSE 90; RESP 18; TEMP 36.7; O2SAT 100
== END 2025-05-14 23:24 | disposition home or self-care (01) ==
PROVIDERS: Emergency Provider Emergency Medicine; PCP Clinical Nurse Specialist Adult Health; Visit Provider Emergency Medicine
DX: R00.2 Palpitations (principal); C25.9 Malignant neoplasm of pancreas, unspecified; R25.1 Tremor, unspecified
CPT/HCPCS: 80048; 85025; 93005; 99285

== ENCOUNTER 2025-07-09 20:45 | Emergency (ER) | payer MEDICARE, OTHER, SELFPAY ==
[2025-07-09 20:46] VITALS: BP 143/84; PULSE 91; RESP 16; TEMP 36.8; O2SAT 99; BMI 21.4
[2025-07-09 21:40] VITALS: BP 137/81; BP 140/79; BP 141/81; PULSE 84; PULSE 88; PULSE 95
--- NOTE | 2025-07-09 21:40 | CT_ITS ---
PROCEDURE: CTA HEAD AND NECK W/ CONTRAST 07/09/2025 REASON FOR EXAM: DIZZINESS TECHNIQUE: CTA HEAD AND NECK W/ CONTRAST Multiplanar Sagittal and Coronal images were obtained. CONTRAST: 100 cc of Isovue 370 intravenous contrast. One or more dose reduction techniques were used (e.g., Automated exposure control, adjustment of the mA and/or kV according to patient size, use of iterative reconstruction technique). COMPARISON: None available. FINDINGS: Aortic Arch: Normal size and branching pattern. Mild atherosclerotic plaque. Brachiocephalic and Subclavians: Unremarkable RIGHT Carotid: Right CCA: Unremarkable. Right ICA: Unremarkable. Maximum stenosis (NASCET): 0 % Right ECA: Unremarkable. LEFT Carotid: Left CCA: Unremarkable. Left ICA: Unremarkable. Maximum stenosis (NASCET): 0 % Left ECA: Unremarkable. Vertebrals: Codominant. Arise from the subclavians. Both vertebrals form the basilar. RIGHT Vertebral: Unremarkable. LEFT Vertebral: Unremarkable. Anatomy: [place] of [place] anatomy is normal. Aneurysm or avm: No intracranial aneurysms or large vascular malformations are identified. Anterior cerebral arteries: Unremarkable: Middle cerebral arteries: Unremarkable. Basilar artery: Unremarkable. Posterior cerebral arteries: Unremarkable. Other major branches of the posterior circulation: Unremarkable. Major venous structures: Unremarkable. Other findings: Neck: No lymphadenopathy. Lungs: Lung apices are clear. Bones: No acute fractures. Moderate degenerate changes of the cervical spine. CT/CTA Head AND Neck W/ Contrast IMPRESSION: Unremarkable CT angiogram of the head and neck with no hemodynamically signific ant stenosis or occlusion. Reading [facility]
--- NOTE | 2025-07-09 21:40 | EKG12_ITS ---
Test Reason : DIZZINESS Blood Pressure : */* mmHG Vent. Rate : 90 BPM Atrial Rate : 90 BPM P-R Int : 210 ms QRS Dur : 78 ms QT Int : 368 ms P-R-T Axes : 69 49 56 degrees QTcB Int : 450 ms Sinus rhythm with 1st degree A-V block with Premature atrial complexes Low voltage QRS Borderline ECG Confirmed by BARBARA AMARAL, DANIELA ([id number]), website/blog editor JASON HOLGUIN ([id number]) on 07/12/2025 1:08:10 PM Referred By: FRANNIE Confirmed By: DANIELA JIMENEZ MD
--- NOTE | 2025-07-09 21:40 | CT_ITS ---
PROCEDURE: CTA CHEST W/WO CONTRAST 07/09/2025 REASON FOR EXAM: DIZZINESS, HISTORY OF PANCREATIC CANCER R/O PE TECHNIQUE: CTA CHEST W/WO CONTRAST Multiplanar Sagittal and Coronal images were obtained. CONTRAST: 100 cc of Isovue 370 intravenous contrast. One or more dose reduction techniques were used (e.g., Automated exposure control, adjustment of the mA and/or kV according to patient size, use of iterative reconstruction technique). COMPARISON: PET-CT 03/02/2025 FINDINGS: Hardware: None. Lymph nodes: No enlarged mediastinal, hilar, or axillary lymph nodes. Heart: Not enlarged. No pericardial effusion. Thoracic Aorta: No thoracic aortic aneurysm or dissection. Pulmonary Vessels: No evidence of acute pulmonary emboli through the major subsegmental branches. Lungs and Airways: Mild emphysematous changes are present. No discrete pulmonary mass or focal consolidation. Airways are patent. Pleura: No pleural effusion. No pneumothorax. Upper Abdomen: Partially imaged distended gallbladder. Partially imaged atrophic pancreas with dilatation of the main pancreatic duct. Bones: Degenerative changes of the thoracic spine. Chronic bilateral rib deformities. Increased sclerosis of the bilateral anterior ribs. CT/CTA Chest W/WO Contrast IMPRESSION: 1. No filling defects to suggest a pulmonary embolism. 2. Partially imaged distended gallbladder. 3. Chronic bilateral rib deformities with increased sclerosis. Reading [facility]
--- NOTE | 2025-07-09 21:46 | EDS_ITS ---
HPI History of Present Illness Chief Complaint: Dizziness Narrative Narrative: Chief complaint and HPI: Dizziness. 89-year-old female with past medical history pancreatic cancer currently not undergoing treatment, HLD, hypothyroidism presents for evaluation of dizziness. Patient states she did not receive chemotherapy for her cancer. States she is not obtaining surgery. States her last radiation was in April. Patient states yesterday evening while laying in bed she developed dizziness. She describes the dizziness as feeling off balance. States that it continued and today, mostly associated with movement. She denies any fever, chills, shortness of breath, chest pain, dysuria, diarrhea, URI symptoms. States at baseline she has abdominal pain and nausea from her pancreatic cancer. Review of systems: See HPI Medications: As listed on the chart Allergies: As listed on the chart PFSH: Per chart Vital signs: As listed on the chart. Reviewed. Physical exam: Gen: A&O x3, NAD Head: Normocephalic, atraumatic Eyes: No sclera icterus, conjunctiva clear, PERRL, EOMI, no nystagmus ENT: Mildly dry mucous membranes, No facial asymmetry Neck: Trachea midline, No JVD CV: RRR, no murmurs, no peripheral edema Resp: Lungs CTA BL, no w/r/c GI: Abd soft, mildly distended with tenderness to palpation in the epigastrium- patient's baseline per her report, no r/r/g Musc: Full ROM, no deformity, strength +5/5 in all extremities, no pronator drift, no ataxia Skin: Warm, dry, intact Neuro: Alert, oriented, grossly intact, sensation intact, no focal deficits Psych: Cooperative, appropriate mood and affect [facility] Medical History Costovertebral angle tenderness Anorexia Back pain RUY (generalized anxiety disorder) Panic Wears partial dentures Fibromyalgia Arthritis History of ulceration History of diverticulitis Panic disorder Medication monitoring encounter Ventral incisional hernia without obstruction or gangrene Decreased sense of taste Chronic sphenoidal sinusitis Chronic ethmoidal sinusitis Chronic maxillary sinusitis Family history of colon cancer in father Pre-op evaluation Hyperlipidemia Syncope and collapse Mixed hyperlipidemia PSVT (paroxysmal supraventricular tachycardia) Chest discomfort Palpitations Hypothyroidism Asthma Home Medications ?Medication ?Instructions ?Recorded ?Last Taken ?Type albuterol sulfate 90 mcg/actuation 1 puff inhalation Q 4H PRN PRN 05/09/14 09/26/20 05:30 History aerosol inhaler Wheezing vit C 250 mg-vit E 90 mg-zinc 40 1 tab PO BID 11/22/17 Unknown History mg-copper 1 [id number]-pkbqdw capsule (PreserVision AREDS-2) polyethylene glycol 3350 17 17 g PO QDAY PRN Constipat ion 01/31/18 Unknown History gram/dose oral powder (Miralax) acetaminophen 325 mg tablet 500 mg (1.5385 x 325 mg) P O Q4H 05/15/19 Unknown Rx PRN PRN Mild-Moderate Pain (1-04/10) CBD Oral (INFORMATIONAL USE 11/10/24 Unknown Histo ry ONLY-PT USES ORAL CBD) nortriptyline 10 mg capsule 10 mg PO BID #120 caps Unknown Rx levalbuterol tartrate 45 2 puff inhalation Q4 PRN Unknown History mcg/actuation aerosol inhaler levothyroxine 50 mcg tablet 75 mcg PO DAILY 02/24/25 U nknown History ropinirole 0.5 mg tablet 0.5 mg PO DAILY 02/24/25 Unk nown History lorazepam 0.5 mg tablet 0.5 mg PO BID PRN anxiety #6 0 tabs 03/12/25 Unknown Rx ondansetron 8 mg disintegrating 8 mg PO Q12H PRN nause a and 03/17/25 Unknown Rx tablet vomiting #30 tabs [id number]-scjdjaf 1 cap PO TID #90 caps Unknown Rx 3,000-9,500-15,000 unit capsule, delayed rel (Creon) propranolol 10 mg tablet 5 mg PO BID PRN anxiety 07/08/26 Unknown History Allergy/AdvReac Type Severity Reaction Status Date / Time cocamidopropyl betaine Allergy Intermediate Rash Verified 07/09/25 20:49 Sulfa (Sulfonamide Allergy Swelling Verified 07/09/25 20:49 Antibiotics) Environmental Allergies: AdvReac Severe NEEDS Verified 07/09/25 20:49 Uncoded (dust) FOLLOW-UP mold AdvReac Severe NEEDS Verified 07/09/25 20:49 FOLLOW-UP metoprolol AdvReac Intermediate I feel Verified 07/09/25 20:49 awful codeine AdvReac Nausea Verified 07/09/25 20:49 diphenhydramine (From AdvReac Nausea Verified 07/09/25 20:49 Benadryl) hydrocodone bitartrate (From AdvReac Nausea Verified 07/09/25 20:49 Vicodin) oxycodone HCl (From Percocet) AdvReac Nausea Verified 07/09/25 20:49 tetracycline AdvReac Nausea/Vom/ Verified 07/09/25 20:49 Diarrhea Family History Father Colon cancer CAD (coronary artery disease) Mother CAD (coronary artery disease) Sister CVA (cerebral vascular accident) Brother Cancer Lung cancer Surgical History S/P ventral herniorrhaphy History of bilateral knee replacement Hx of rotator cuff surgery S/P carpal tunnel release S/P partial colectomy History of loop recorder H/O prior ablation treatment History of appendectomy History of tonsillectomy Social History household members: spouse Smoking Status: Never smoker alcohol intake: never substance use type: does not use caffeine: No what type of physical activity do you participate in: bicycling frequency: daily duration: 15-30 minutes/day seatbelt use: always do you feel safe at home: Yes EXAM Physical Exam Const Vital Signs: 07/09/25 20:46 07/09/25 21:40 07/09/25 22:45 Temperature 98.2 F Temperature Source Temporal Pulse Rate 91 85 Pulse Rate [Lying] 84 Pulse Rate [Sitting (for 1 minute prior to obtaining)] 88 Pulse Rate [Standing (for 1 minute prior to obtaining)] 95 Respiratory Rate 16 18 Blood Pressure 143/84 H 152/83 H Blood Pressure [Lying] 140/79 H Blood Pressure [Sitting (for 1 minute prior to obtaining)] 141/81 H Blood Pressure [Standing (for 1 minute prior to obtaining)] 137/81 H Blood Pressure Mean 103 106 Blood Pressure Mean [Lying] 99 Blood Pressure Mean [Sitting (for 1 minute prior to obtaining)] 101 Blood Pressure Mean [Standing (for 1 minute prior to obtaining)] 99 Pulse Ox 99 96 Oxygen Delivery Method Room Air Room Air 07/10/25 00:13 Temperature Temperature Source Pulse Rate 89 Pulse Rate [Lying] Pulse Rate [Sitting (for 1 minute prior to obtaining)] Pulse Rate [Standing (for 1 minute prior to obtaining)] Respiratory Rate 23 H Blood Pressure 147/75 H Blood Pressure [Lying] Blood Pressure [Sitting (for 1 minute prior to obtaining)] Blood Pressure [Standing (for 1 minute prior to obtaining)] Blood Pressure Mean 99 Blood Pressure Mean [Lying] Blood Pressure Mean [Sitting (for 1 minute prior to obtaining)] Blood Pressure Mean [Standing (for 1 minute prior to obtaining)] Pulse Ox 98 Oxygen Delivery Method Room Air MDM MDM MDM Narrative Medical decision making narrative: 89-year-old female with past medical history pancreatic cancer currently not undergoing treatment, HLD, hypothyroidism presents for evaluation of dizziness. Patient states she did not receive chemotherapy for her cancer. States she is not obtaining surgery. States her last radiation was in April. Patient states yesterday evening while laying in bed she developed dizziness. She describes the dizziness as feeling off balance. Differential diagnosis includes but is not limited to brain metastasis, CVA, PE, electrolyte abnormality, dehydration, orthostatic hypotension, UTI, low suspicion for ACS. NS bolus ordered with dizziness workup. Orthostatic vital signs negative. EKG and chest x-ray reviewed. CBC without leukocytosis. Patient has baseline anemia. BMP relatively unremarkable without significant electrolyte abnormality or JULIA. Troponin unremarkable. UA negative for UTI. COVID, flu, RSV negative. CTA of the head without stenosis or occlusion. CTA negative for PE. 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 No pneumonia. At this point in time, no clear etiology to explain patient's dizziness. Patient was ambulated in the emergency department with a walker which she uses at home without difficulty. However she still feels occasionally off balance. I cannot rule out CVA without MRI brain. This was explained to the patient as well as close contact in the room. Patient was offered admission for MRI brain and further CVA workup. She declined. She states she wants to discharge home. I did explain to her that if she did have a CVA that this goes untreated she may have another one that can ultimately result in . She states she understands and accepts the risks. Patient will be discharged home. Return precautions explained. Follow-up with PCP. She confirmed understand the plan. EKG: Interpreted by me/EM physician: EKG shows normal sinus rhythm with first-degree AV block and PACs. No acute ischemic changes. Heart rate 90 Diagnostic: Interpreted by me/EM physician: Chest x-ray without pneumonia, effusion, cardiomegaly, pneumothorax. Radiology in agreement. Impression: 1. Dizziness 2. Pancreatic cancer Lab Data Labs: Laboratory Results - last 24 hr 07/09/25 07/09/25 20:58 22:30 WBC 4.8 RBC 3.94 L Hgb 11.7 L Hct 35.9 L MCV 91.1 MCH 29.7 MCHC 32.6 RDW Std Deviation 46.6 H RDW Coeff of Collin 13.9 Plt Count 360 MPV 9.5 Immature Gran % (Auto) 0.800 Neut % (Auto) 64.9 Lymph % (Auto) 7.4 L [place] % (Auto) 19.2 H Eos % (Auto) 6.9 H Baso % (Auto) 0.8 Absolute Neuts (auto) 3.1 Absolute Lymphs (auto) 0.35 L Nucleated RBC % 0 Sodium 133 Potassium 4.1 Chloride 95 L Carbon Dioxide 23.2 Anion Gap 15 BUN 18 Creatinine 0.52 L Estim Creat Clear Calc 35.97 L Est GFR (MDRD) Non-Af 89 BUN/Creatinine Ratio 34.6 H Glucose 108 H Calcium 9.6 Troponin T High Sens 13 Urine Color Yellow Urine Clarity Clear Urine pH 7.0 Ur Specific [place] 1.010 Urine Protein Negative Urine Glucose (UA) Normal Urine Ketones Negative Urine Occult Blood Negative Urine Nitrite Negative Urine Bilirubin Negative Urine Urobilinogen Normal Ur Leukocyte Esterase 25 H Urine RBC 0 SEEN Urine WBC 0 SEEN Ur Squamous Epith Cells 0 SEEN Urine Bacteria 0 SEEN Urine Mucus 0 SEEN Radiography Diagnostic Testing: Clinical Impression(s) from Imaging Studies Chest CTA 07/09/25 21:40 IMPRESSION: 1. No filling defects to suggest a pulmonary embolism. 2. Partially imaged distended gallbladder. 3. Chronic bilateral rib deformities with increased sclerosis. Reading Location: [facility] Head/Neck CTA 07/09/25 21:40 IMPRESSION: Unremarkable CT angiogram of the head and neck with no hemodynamically significant stenosis or occlusion. Reading Location: [facility] Chest X-Ray 07/09/25 23:12 IMPRESSION: NO ACUTE FINDINGS. Reading Location: [facility] Discharge Plan Triage Chief Complaint: Dizziness ED Provider: Hay Pedroza Dx/Rx/DC Orders Prescriptions: No Action vit C,R-Xk-edjus-lutein-zeaxan [PreserVision AREDS-2] [id number] yv-eeyj-eh-mg capsule 1 tab PO BID polyethylene glycol 3350 [Miralax] 17 gram/dose powder 17 g PO QDAY PRN (Reason: Constipation) levothyroxine 50 mcg tablet 75 mcg PO DAILY Patient Comments: 1.5 TABS SUN AND TH 1 TAB ALL OTHER DAYS (DME) CBD Oral (INFORMATIONAL USE ONLY-PT USES ORAL CBD) Oil See Rx Instructions .Route Rx Instructions: As directed levalbuterol tartrate 45 mcg/actuation HFA aerosol inhaler 2 puff inhalation Q4 PRN ondansetron 8 mg tablet,disintegrating 8 mg PO Q12H PRN (Reason: nausea and vomiting) Qty: 30 0RF propranolol 10 mg tablet 5 mg PO BID PRN (Reason: anxiety) Creon 3,000-9,500- 15,000 unit capsule,delayed release(DR/EC) 1 cap PO TID Qty: 90 3RF Rx Instructions: do not exceed 10,000 unit/kg lipase per 24 hrs. with meals albuterol sulfate 1 INHALER inhaler 1 puff INHALATION Q4H PRN PRN (Reason: Wheezing) acetaminophen 325 MG tablet 500 mg PO Q4H PRN PRN (Reason: Mild-Moderate Pain (1-5/10)) 0RF ropinirole 0.5 mg tablet 0.5 mg PO DAILY nortriptyline 10 mg capsule 10 mg PO BID Qty: 120 1RF lorazepam 0.5 mg tablet 0.5 mg PO BID PRN (Reason: anxiety) Qty: 60 1RF Primary Care Provider: Anitra Hummel Referrals: Anitra Hummel, DOG GROOMER [Primary Care Provider] - Print Language: Bengali
--- OUTSIDE RECORDS SUMMARY | 2025-07-09 21:54 | XMS RPT_ITS | CCD ---
Author Organization [facility] Care Team Providers Care Lumpia Wrapper Maker Name Role Phone VITEBSKIY, KRYS Referring Unavailable [...] CEBUL, DEMETRIS Primary Care Unavailable SHASHANK FARIA A Referring Unavailable CEBUL, DEMETRIS Primary Care Unavailable Cebul, Demetris A Primary Care Provider Troy Mckeon MD Primary Care Provider Troy Mckeon MD Primary Care Provider Troy Mckeon MD Primary Care Provider Kevin Andersen PA-C Primary Care Provider [phone] Kevin Andersen PA-C Primary Care Provider [phone] Kevin Andersen PA-C Primary Care Provider [phone] Raysa COOK MD, Frank A Primary Care Provider Letha vailable Suppan GENERAL SURGEON.TARGET WORKER, Anitra A Primary Care Provi vlad Ganesh LU, Yanely Miranda Primary Care Provider Unavailable Suppan GENERAL SURGEON.TARGET WORKER, Anitra A Primary Care Provi vlad Suppan GENERAL SURGEON.TARGET WORKER, Anitra A Primary Care Provi vlad Unavailable Primary Care Provider Unavailabl e Suppan, Anitra A Primary Care Provider [phone] Oneyda Kaplan RN Unavailable Unavailabl e QUINTEN FRANCO Attending Unavailable QUINTEN FRANCO Admitting Unavailable SUPPAN, ANITRA Primary Care Unavailable CLIFF TRONCOSO Attending Unavailable MARQUES KING. Referring Unavailable SUPPAN, ANITRA A Primary Care Unavailable DAWIT PHELAN Attending Unavailable SUPPAN, ANITRA A Primary Care Unavailable SUPPAN, ANITRA A Primary Care Unavailable GRUPO MOHAN Referring Unavailable SUPPAN, ANITRA A Primary Care Unavailable SHIRA ORDONEZ Attending Unavailable SUPPAN, ANITRA A Primary Care Unavailable DAWIT PHELAN Referring Unavailable SUPPAN, ANITRA A Attending Unavailable SUPPAN, ANITRA A Primary Care Unavailable LINDSEY STAPLETON Attending Unavailable YANELY ANDERSEN Primary Care Unavailable [...] Referring Unavailable YANELY ANDERSEN Primary Care Unavailable SHOSHANA CHAMBERS Attending Unavailable SUPPAN, ANITRA A Primary Care Unavailable SUPPAN, ANITRA A Referring Unavailable SUPPAN, ANITRA A Primary Care Unavailable SUPPAN, ANITRA A Attending Unavailable SUPPAN, ANITRA A Primary Care Unavailable DAWIT PHELAN Attending Unavailable DASIA FUNES Attending Unavaila ble SUPPAN, ANITRA A Primary Care Unavailable SELF Referring Unavailable DASIA FUNES Attending Unavaila ble SUPPAN, ANITRA A Primary Care Unavailable SUPPAN, ANITRA A Referring Unavailable SUPPAN, ANITRA A Primary Care Unavailable SUPPAN, ANITRA A Attending Unavailable SUPPAN, ANITRA A Primary Care Unavailable SUPPAN, ANITRA A Primary Care Unavailable SELF Referring Unavailable SUPPAN, ANITRA A Attending Unavailable SUPPAN, ANITRA A Primary Care Unavailable YANELY ANDERSEN Primary Care Unavailable SHOSHANA CHAMBERS Referring Unavailable YANELY ANDERSEN Primary Care Unavailable SUPPAN, ANITRA A Primary Care Unavailable DAWIT PHELAN Referring Unavailable Suppan, Anitra Referring Unavailable Suppan, Anitra Primary Care Unavailable Kendra Hahn NP Attending Unavailable Suppan, Anitra Referring Unavailable Suppan, Anitra Primary Care Unavailable Marques King Attending Unavailable Andi De Luna Attending Unavailable Andi De Luna Referring Unavailable Suppan, Anitra Primary Care Unavailable Andi De Luna Attending Unavailable Andi De Luna Referring Unavailable Suppan, Anitra Primary Care Unavailable Suppan, Anitra Primary Care Unavailable Tony Villanueva Attending Unavailable Suppan, Anitra Primary Care Unavailable Brian Rivera Attending Unavailable Suppan, Anitra Primary Care Unavailable Marques King Attending Unavailable Grupo Mohan Referring Unavailable Grupo Mohan Attending Unavailable Suppan, Anitra Primary Care Unavailable Suppan, Anitra Primary Care Unavailable Whiteny Mays Attending Unavailable Andi De Luna Referring Unavailable Andi De Luna Attending Unavailable Suppan, Anitra Primary Care Unavailable Kevin Granado Primary Care Unavailable Hugh De Anda Attending Unavailable Suppan, Anitra Referring Unavailable Grupo Mohan Attending Unavailable Suppan, Anitra Primary Care Unavailable Suppan, Anitra Referring Unavailable Suppan, Anitra Primary Care Unavailable Marques King Attending Unavailable Andi De Luna Attending Unavailable Suppan, Anitra Primary Care Unavailable Suppan, Anitra Referring Unavailable Andi De Luna Attending Unavailable Suppan, Anitra Referring Unavailable Suppan, Anitra Primary Care Unavailable Suppan, Anitra Primary Care Unavailable Marques King Attending Unavailable Suppan, Anitra Referring Unavailable Suppan, Anitra Primary Care Unavailable Hugh Gomez Attending Unavailable Suppan, Anitra Referring Unavailable Suppan, Anitra Primary Care Unavailable PraMarques staley Attending Unavailable Suppan, Anitra Referring Unavailable Grupo Mohan Referring Unavailable Suppan, Anitra Primary Care Unavailable PraMarques staley Attending Unavailable Suppan, Anitra Primary Care Unavailable Prah, Marques Attending Unavailable Annamarie, Andi Consulting Unavailable Suppan, Anitra Primary Care Unavailable Marques King Attending Unavailable Marques King Referring Unavailable Suppan, Anitra Referring Unavailable Kevin Granado Primary Care Unavailable Suppan, Anitra Attending Unavailable Annamarie, Andi Attending Unavailable Suppan, Anitra Primary Care Unavailable Annamarie, Andi Attending Unavailable Annamarie, Andi Referring Unavailable Suppan, Anitra Primary Care Unavailable Suppan, Anitra Primary Care Unavailable Hugh De Anda Attending Unavailable Suppan, Anitra Referring Unavailable Suppan, Anitra Primary Care Unavailable Marques King Attending Unavailable Allergies Allergy Classification Reported Allergen(s) Allergy Type Date of Onset Reaction(s) Facility (20 sources) Acetaminophen / HYDROcodone; Translations: [HYDROCODONE-ACETA MINOPHEN] Drug Allergy 05-04-20 13 Nausea Only, GI Upset, Other [facility] Repository (20 sources) Acetaminophen / oxyCODONE; Translations: [OXYCODONE-ACETAMI NOPHEN] Drug Allergy 04-22-20 13 Nausea Only, GI Upset, Other [facility] Repository (20 sources) Codeine; Translations: [CODEINE] Drug Allergy 03-19-20 07 Swelling, GI Upset, Other [facility] Repository (20 sources) Sulfonamides (Antibiotic); Translations: [SULFA (SULFONAMIDE ANTIBIOTICS)] Propensity to adverse reactions (disorder) 03-19-20 07 Hives, Swelling [facility] Repository (2 sources) Sulfonamides (Antibiotic) Propensity to adverse reactions to drug 03-19-20 07 Hives, Swelling [place], [place] (2 sources) Tetracyclines & Related Propensity to adverse reactions to drug 08-07-20 19 Nausea Only [place], [place] (20 sources) Tetracycline; Translations: [TETRACYCLINE] Drug Allergy 04-29-20 19 GI Upset [facility] (20 sources) Cocamidopropyl Betaine; Translations: [COCAMIDOPROPYL BETAINE] Drug Intolerance 07-27-20 Rash [facility] (2 sources) HYDROcodone; Translations: [hydrocodone bitartrate] Drug Allergy 10-06-20 Nausea [facility] Repository (1 source) Mold Extract Drug Allergy 09-07-20 NEEDS FOLLOW-UP [facility] Work Phone: (2 sources) oxyCODONE; Translations: [oxycodone HCl] Drug Allergy 10-06-20 Nausea [facility] Repository (2 sources) Environmental Allergies: Uncoded; Translations: [Environmental Allergies: Uncoded] Propensity to adverse reactions 09-07-20 NEEDS FOLLOW-UP [facility] Repository (20 sources) busPIRone; Translations: [BUSPIRONE] Drug Allergy 04-21-20 24 Intolerance, Other [facility] (20 sources) pantoprazole; Translations: [PANTOPRAZOLE] Drug Allergy 12-18-19 GI Upset, [facility] (4 sources) Sulfonamides (Antibiotic) Propensity to adverse reactions 03-19-20 07 Hives, Swelling [facility] (4 sources) Tetracycline (class of antibiotic) Drug Intolerance 04-29-20 19 Other, Nausea Only [facility] (4 sources) Cocamidopropyl Betaine Propensity to adverse reactions 07-27-20 Rash [facility] (1 source) diphenhydrAMINE Drug Allergy 07-06-20 [facility] (1 source) Metoprolol Drug Allergy 07-06-20 25 [facility] Repository (1 source) Mold Extract Drug Allergy 07-06-20 [facility] Repository (1 source) Tetracycline Drug Allergy 07-06-20 [facility] Rep[facility] (1 source) cocamidopropyl betaine Drug allergy (disorder) 07-06-20 [facility] Repository Medications Current Medications Medication Drug Class(es) Dates Sig (Normalized) Sig (Original) acetaminophen 325 mg oral tablet (20 sources) Start: 05-15-2019 take 500 mg by mouth every four hours as needed Acetaminophen Active 500 MG PO EVERY 4 HOURS NEEDED May 14, 2019 11:00pm Start: 04-12-2010 take 2 tablets by mo [facility] every eight hours as needed ACETAMINOPHEN 500 [...] mouth twice daily for 7 days. amylase 84549 unt / lipase 3000 unt / protease 9500 unt delayed release oral capsule (7 sources) Start: 05-13-2025 End: 11-09-2025 take 1 capsule by mouth three times daily at mealtime xgukmy-chqlwksq-eadkzcm (CREON) 3,000-9,500- 15,000 unit delayed release capsule [...] 1 tablet by mouth once daily vit A,C,T-Obau-Vvsjky (PRESERVISION AREDS) 7,160-113-100 lxsm-sy-qyee tab Take 1 tablet by mouth once daily. 0 09/23/2015 Active Start: 09-23-2015 vit A,C,E-Zinc -Copper (PRESERVISION AREDS) 7,160-113-100 cnhn-si-cruz tab Take by mouth. 0 09/23/2015 Active Comment on above: Take by mouth. B Nhmsuoe-Bqmvzv-ND (GNP B-100 Complex) tablet controlled-release (4 sources) Start: 08-21-2024 End: 08-21-2025 take 1 tablet by mouth once daily B Dmjribh-Rkehdh-RF (GNP B-100 Complex) tablet controlled-release Take 100 mg by mouth daily. 08/21/2024 08/21/2025 Active clonazePAM 0.25 mg disintegrating oral tablet (20 sources) Benzodiazepine Start: 05-04-2014 End: 11-22-2017 take 0.25 mg by mouth once daily Clonazepam Active 0.25 MG PO DAILY November 22, 2017 8:13am take 1 tablet by laura every twenty-four hours as needed clonazePAM (KLONOPIN) [...] 1 puff twice a day. 03/24/2024 Active gabapentin 100 mg oral capsule (12 sources) Anti-epilept ic Agent Start: 06-17-2025 End: 12-14-2025 take 1 capsule by mouth three times daily gabapentin (NEURONTIN) 100 mg capsule Indications: RLS (restless legs syndrome) Take 1 capsule by mouth three times a day for 180 days. 90 capsule 5 06/17/2025 12/14/2025 Active Start: 06-14-2025 End: 12-11-2025 take 1 capsule by mouth once daily at bedtime gabapentin (NEURONTIN) 100 mg capsule Indications: RLS (restless legs syndrome) Take 1 capsule by mouth daily at bedtime for 180 days. 30 capsule 5 06/14/2025 06/17/2025 Discontinued Start: 08-21-2024 End: 05-04-2025 take 1 capsule by mouth three times daily gabapentin (NEURONTIN) 100 mg capsule Indications: Burning mouth syndrome Take 1 capsule by mouth three times a day for 180 days. 90 capsule 5 11/05/2024 11/23/2024 Discontinued (Discontinued by Patient) 200 actuat levalbuterol 0.045 mg/actuat metered dose inhaler (20 sources) beta2-Adrenergic Agonist Start: 03-24-2024 take 1-2 puff(s) by [...] on an empty stomach all other days lipase/protease/amylase (CREON ORAL) (6 sources) take 9000 [IU] by mouth once daily lipase/protease/amylase (CREON ORAL) Take 9,000 Units by mouth once daily. Active methylPREDNISolone 4 mg oral tablet (1 source) [...] 5 days. 10 capsule 03/15/2025 03/20/2025 Active nortriptyline 10 mg oral capsule (20 sources) Tricyclic Antidepressant Start: 2024 take 1 capsule by mouth once daily at bedtime nortriptyline (PAMELOR) 10 mg capsule Take 10 mg by mouth daily at bedtime. 05/05/2025 Active Start: 11-23-2024 End: 11-23-2024 take 2 capsules [...] at bedtime Take 1 capsule by mo uth every 12 hours. ondansetron 4 mg oral tablet (20 sources) Serotonin-3 Receptor Antagonist Start: End: take 1 tablet by mouth every eight [...] above: Take 1 tablet by laura th every 6 hours as needed for nausea/vomiting. polyethylene glycol 3350 27466 mg powder for oral solution (1 source) Osmotic Laxative Start: 02-01-20 18 Polyethylene Glycol 3350 (Miralax) 17 gram/dose powder Active 17 GM PO daily January 31, 2018 12:00am polyethylene glycol 3350 476458 mg / potassium chloride 2970 mg / sodium bicarbonate 6740 mg / sodium chloride 5860 mg / sodium sulfate 47377 mg powder for oral solution (1 source) Osmotic Laxative Start: 04-02-20 End: 04-02-20 24 peg 3350-Electrolytes (GOLYTELY) 236-22.74-6.74 [...] 30 tablet 11 08/21/2024 08/21/2025 Active Vit C,P-Jp-Eoong-Lutein -Zeaxan (1 source) Start: 09-19-2020 Vit C,F-Tf-Jhier-Lutein -Zeaxan Active 2 EACH PO DAILY September 18, 2020 11:00pm Vit C,C-Sd-Sqggr-Lutein -Zeaxan (Preservision Areds-2) 400-842-32-1 gm-wkam-gx-mg capsule (1 source) Start: 11-22-2017 take 1 tablet by mouth twice daily Vit C,Q-Ip-Jgcol-Lutein -Zeaxan (Preservision Areds-2) 544-208-50-1 ls-kmzn-sg-mg capsule Active 1 TABLET PO TWICE A [...] oral capsule (20 sources) Vitamin D End: 025 Cholecalciferol, Vitamin D3, (VITAMIN D) 25 mcg [...] 2018 9:55am escitalopram 5 mg oral tablet (3 sources) Serotonin Reuptake Inhibitor Start: 2024 End: [...] spray (20 sources) Corticosteroid Start: 12-25-2022 End: 02-21-2023 take 2 spray(s) by mouth once daily [...] inhaler (13 sources) Corticosteroid, beta2-Adrenergic Agonist Start: End: take 2 puff(s) by inhalation twice daily mometasone-formotero l (DULERA) 100-5 mcg/actuation inhaler Inhale 2 Puffs as instructed twice daily. 06/14/2021 11/06/2022 Discontinued Comment on above: Inhale 2 Puffs as in structed twice daily. hydrocortisone 25 mg/ml topical cream (5 sources) Corticosteroid Start: End: apply 15 g rectal route twice daily hydrocortisone (ANUSOL-HC) 2.5 % rectal cream by RECTAL route twice daily. 15 g 1 11/09/2022 12/09/2022 Comment on above: by RECTAL route twic e daily. ibuprofen 200 mg oral tablet (1 source) Nonsteroidal Anti-inflammatory Drug Start: 019 End: take 200 mg by mouth every [...] by mouth. 08/21/2024 Discontinued (Discontinued by Patient) Geflnfooonhi-Db-Aor n-Minerals (1 source) Start: 05-04-2014 End: 01-31-2018 take 1 tablet by mouth once daily Vfkxphhfwogx-Yf-Lwj n-Minerals Discontinued 1 TABLET PO DAILY May 03, 2014 11:00pm January 31, 2018 9:56am naproxen sodium 220 mg oral tablet (10 sources) Nonsteroidal Anti-inflammatory Drug End: 10-01-2022 take 1 tablet by mouth once daily naproxen sodium (ALEVE) 220 mg tablet Take 220 mg by mouth once daily. 0 10/01/2022 Discontinued (Discontinued by Patient) Comment on above: Take 220 mg by mouth once daily. nystatin 552084 unt/ml oral suspension (1 source) Polyene Antifungal Start: 03-10-2021 End: 04-11-2021 nystatin (MYCOSTATIN) 100,000 unit/mL suspension Take 5 mL by mouth four times daily. 1tsp swish in mouth for several minutes, then swallow (or expectorate) 4 times daily until gone. 200 mL 03/10/2021 04/11/2021 Discontinued (Course of therapy completed) pantoprazole 40 mg delayed release oral tablet (6 sources) Proton Pump Inhibitor Start: 11-23-2024 End: 02-21-2025 take 1 tablet by mouth once daily pantoprazole DR (PROTONIX) 40 mg tablet Indications: Belching , Epigastric pain Take 1 tablet by mouth once daily. 30 tablet 2 11/23/2024 12/18/2024 Discontinued (Discontinued by Patient) piperacillin-tazoba ctam (Zosyn) 3,375 mg in sodium chloride 0.9 % 50 mL IVPB Mini-Bag Plus (1 source) Start: 02-10-2025 End: 02-10-2025 3,375 mg, IntraVENous, at 100 mL/hr, Administer over 0.5 Hours, Once, On Sat02/10/25 at 1200, For 1 dose, Mini-Bag Plus bag, Suspected Indication (Select all that apply): Surgical Site Infection Polyethylene Glycols (20 sources) End: 02-06-2024 polyethylene glycol 3350 (CLEARLAX ORAL) Take by [...] Comment on above: Take 2 tablets by [facility] once daily for 5 days. 100 ml propofol 10 mg/ml injection (2 sources) General Anesthetic Start: End: IntraVENous, Continuous PRN, Starting on Sat02/10/25 at 1204, Anesthesia Intraprocedure Start: 02-10-2025 End: 02-10-2025 IntraVENous, As needed, Star ting on Sat02/10/25 at 1204, Anesthesia Intraprocedure propranolol hydrochloride 10 mg oral tablet (20 sources) beta-Adrenergic Grzegorz Start: 05-20-2025 End: 06-14-2025 take 5 mg by mouth every twelve hours as needed propranolol (INDERAL) 10 mg tablet Take 5 mg by mouth two times a day as needed (anxiety). 05/20/2025 06/14/2025 Discontinued (Discontinued by Patient) Start: 03-15-2025 End: 06-13-2025 take 1 tablet [...] Problem Date Documented Da te Episodic/Chronic Abdominal pain (4 sources) Epigastric pain; Translations: [Epigastric pain] Onset: 4 11-23-2024 Episodic Anal and rectal conditions (2 sources) Rectal pain; Translations: [Other specified diseases of anus and rectum] Episodic Anxiety disorders (20 sources) Generalized anxiety disorder; Translations: [Generalized anxiety disorder] Onset: 7 09-16-2019 Chronic Asthma (20 sources) Mild intermittent asthma; Translations: [Mild intermittent asthma, uncomplicated] Onset: 6 09-16-2019 Chronic Cancer of pancreas (8 sources) Malignant tumor of head of pancreas; Translations: [Malignant neoplasm of head of pancreas] Onset: 5 03-15-2025 Chronic Cardiac dysrhythmias (20 sources) Paroxysmal supraventricular tachycardia; Translations: [Supraventricular tachycardia] Onset: 8 Resolved: 7 09-16-2019 Chronic Cardiac dysrhythmias (20 sources) Tachycardia; Translations: [Tachycardia, unspecified] Onset: 4 Episodic Deficiency and other anemia (6 sources) Iron deficiency anemia; Translations: [Iron deficiency anemia, unspecified] Episodic Deficiency and other anemia (1 source) Iron deficiency anemia secondary to inadequate dietary iron intake; Translations: [Other iron deficiency anemias] Episodic Deficiency and other anemia (1 source) Iron deficiency anemia, unspecified; Translations: [Iron deficiency anemia, unspecified iron deficiency anemia type] Onset: 5 Episodic Disorders of lipid metabolism (20 sources) Hyperlipidemia; Translations: [Hyperlipidemia, unspecified] Onset: 6 09-16-2019 Chronic Diverticulosis and diverticulitis (20 sources) Diverticulosis of large intestine; Translations: [Diverticulosis of large intestine without perforation or abscess without bleeding] Onset: 9 05-22-2017 Chronic Diverticulosis and diverticulitis (1 source) Diverticulosis of large intestine; Translations: [Diverticulosis of large intestine] Onset: 9 09-16-2019 Essential hypertension (2 sources) Essential hypertension; Translations: [Essential (primary) hypertension] Onset: 5 06-14-2025 Chronic Gastroduodenal ulcer (except hemorrhage) (20 sources) Peptic ulcer; Translations: [Peptic ulcer, site unspecified, unspecified as acute or chronic, without hemorrhage or perforation] Resolved: 7 03-19-2007 Chronic Intestinal infection (2 sources) Infection caused by Helicobacter pylori; Translations: [Other specified bacterial intestinal infections] 12-18-2024 Episodic Malaise and fatigue (1 source) Fatigue; Translations: [Other fatigue] 06-16-2024 Episodic Nausea and vomiting (20 sources) Nausea; Translations: [Nausea] Onset: 8 Resolved: 9 02-07-2024 Episodic Nonspecific chest pain (1 source) Chest [...] Onset: 4 Resolved: 6 09-16-2019 Chronic Other aftercare (1 source) Other group home (current) drug therapy; Translations: [Medication management] Onset: 5 Episodic Other bone disease and musculoskeletal deformities (1 [...] Translations: [Cramp and spasm] 03-18-2025 Episodic Other gastrointestinal disorders (4 sources) Decreased [...] Translations: [Restless legs syndrome] 07-26-2021 Chronic Other hereditary and degenerative nervous system conditions (2 sources) Coarse tremor; Translations: [Other specified forms of tremor] 05-15-2025 Chronic Other hereditary and degenerative nervous system conditions (1 source) Restless legs syndrome; Translations: [RLS (restless legs syndrome)] Onset: 1 Chronic Other hereditary and degenerative nervous system conditions (1 source) Other specified forms of tremor; Translations: [Coarse tremors] Onset: 5 Chronic Other lower respiratory disease (3 sources) [...] maxillary sinusitis] Onset: 8 Resolved: 7 Chronic Other upper respiratory infections (1 source) Acute pharyngitis, unspecified; Translations: [Acute pharyngitis, unspecified] Onset: 5 Episodic Pancreatic disorders (not diabetes) (10 sources) Disorder of pancreas; Translations: [Disease of pancreas, unspecified] Onset: 5 06-26-2024 Episodic Residual codes; unclassified (1 source) [...] degeneration, lumbar region] Onset: 1 01-01-2024 Chronic Spondylosis; intervertebral disc disorders; other back problems (20 sources) Acute low back pain; Translations: [Acute midline low back pain without sciatica] Onset: 9 Resolved: 6 Episodic Substance-related disorders (20 sources) Benzodiazepine dependence; Translations: [Sedative, hypnotic or anxiolytic dependence, uncomplicated] Onset: 3 05-29-2023 Chronic Thyroid disorders (20 sources) Hypothyroidism; Translations: [Multinodular goiter] Onset: 6 09-16-2019 Chronic Unclassified (2 sources) New Patient; Translations: [New Patient] Onset: 5 Unclassified (1 source) Thyroid Problem Onset: 5 Unclassified (1 source) Acute bilateral low back pain without sciatica; Translations: [Acute bilateral low back pain without sciatica] Onset: 4 Past or Other Problems Problem Classification Problem Date Documented Da te Episodic/Chronic Abdominal hernia (20 sources) Hernia of anterior abdominal wall; Translations: [Ventral hernia without obstruction or gangrene] Onset: 04-18-2020 04-18-2020 Episodic Allergic reactions (20 sources) Contact dermatitis; Translations: [Unspecified contact dermatitis, unspecified cause] Onset: 04-18-2020 04-18-2020 Episodic Conditions associated with dizziness or vertigo [...] hemorrhage or perforation] Onset: 11-23-2024 11-23-2024 Episodic Genitourinary symptoms and ill-defined conditions (2 sources) Urgent desire to urinate; Translations: [Urgency of urination] Onset: 03-29-2025 03-15-2025 Episodic Gout and other crystal arthropathies (20 sources) Gout; Translations: [Gout, unspecified] Resolved: 12-23-2015 12-23-2015 Chronic Neoplasms of unspecified nature or uncertain behavior [...] and myositis] Resolved: 05-22-2017 05-22-2017 Episodic Other connective tissue disease (1 source) Cramp and spasm; Translations: [Leg cramps] Onset: 03-18-2025 Episodic Other gastrointestinal disorders (20 sources) Constipation; [...] knees, unspecified chronicity] Onset: 11-23-2024 Episodic Other screening for suspected conditions (not mental disorders or infectious disease) (10 sources) Patient encounter status; Translations: [Encounter for [...] of digestive organs] Onset: 10-08-2023 01-01-2024 Episodic Sprains and strains (20 sources) Sprain of lateral collateral ligament of knee; Translations: [Sprain of lateral collateral ligament of unspecified knee, initial encounter] Onset: 05-27-2012 01-01-2024 Episodic Syncope (20 sources) Syncope and collapse; Translations: [Syncope and collapse] Onset: 04-30-2014 Resolved: 12-23-2015 11-27-2021 Episodic Syncope (1 source) Syncope Onset: 04-23-2018 Results Test Name Value Interpretation Reference Range Facility Oncology Visit Reporton Oncology Visit Report [facility] [address] [place] [address] OFFICE VISIT Date of Service: 07/06/25 1033 MR#: [id number] Acct: [id number] Name: SACHI GRACE Rep #: [id number] : 1935 From: Marques King MD Age/Sex: 89/F Location: [facility] Status: Signed HPI Subjective Date of Service 07/06/25 Chief Complaint F/u for Pancreatic cancer. History of Present Illness 89-year-old woman was found to have head/body pancreatic mass. Presented with abdominal pain to [facility], CT of the abdomen and pelvis on 12/10/2024 showed 2.8 cm mass with ill-defined margins in the body of the pancreas. She was seen by GI on 01/01/2025 and was referred for EUS and biopsy. She had EUS and biopsy at [facility] on 02/10/2025 which showed 3.6 cm [...] of 3000 cGy in 5 fractions 04/05/25-04/09/25. She is on observation. Comes for follow up. Has been getting lower Abdominal pain on and off, eating well, no dysuria/hematuria, stool is now brownish. [facility] Medical History Costovertebral angle tenderness Anorexia Back pain RUY [...] safe at home: Yes Intake Vital Signs 06/09/25 11:00 06/15/25 17:52 07/06/25 10:33 Height 5 ft 1 in 5 ft 1 in 5 ft 1 in Weight: 51.936 kg BMI 21.6 BP 124/76 H Blood Pressure Location Lt brachial Position Sitting Respiration 18 Pulse 94 Pulse Source Monitor Temp 98.5 F Temperature Source Temporal Artery Pulse Oximetry (%) 98 Oxygen Delivery Method room air Intake Is patient in pain?: No Allergies cocamidopropyl betaine Allergy (Intermediate, Verified 07/06/25 10:37) Rash Sulfa (Sulfonamide Antibiotics) Allergy (Verified 07/06/25 10:37) Swelling Environmental Allergies: Uncoded (dust) Adverse Reaction (Severe, Verified 07/06/25 10:37) NEEDS FOLLOW-UP mold Adverse Reaction (Severe, Verified 07/06/25 10:37) NEEDS FOLLOW-UP metoprolol Adverse Reaction (Intermediate, Verified 07/06/25 10:37) I feel awful codeine Adverse Reaction (Verified 07/06/25 10:37) Nausea diphenhydramine (From Benadryl) Adverse Reaction (Verified 07/06/25 10:37) Nausea hydrocodone bitartrate (From Vicodin) Adverse Reaction (Verified 07/06/25 10:37) Nausea oxycodone HCl (From Percocet) Adverse Reaction (Verified 07/06/25 10:37) Nausea tetracycline Adverse Reaction (Verified 07/06/25 10:37) Nausea/Vom/Diarrhea Medications ???Medication ???Instructions ???Recorded ???Confirmed ???Type albuterol sulfate 90 mcg/actuation 1 puff inhalation Q4H PRN PRN 07/06/25 History aerosol inhaler Wheezing vit C 250 mg-vit E 90 mg-zinc 40 1 tab PO BID 11/22/17 07/06/25 His tory mg-c (more content not included)... Normal [facility] Carbohydrate AG 19-9on 06-30 CA 19-9 457 U/mL High 0-35 [facility] Comment on above: Order Comment: JIN MANCERA ORDERED RENE IBC CBCD Result Comment: [employer] Electrochemiluminescence Immunoassay (ECLIA) Values obtained with different assay methods or kits cannot be used interchangeably. Results cannot be interpreted as absolute evidence of the presence or absence of malignant disease. Performed at: [address] [id number] Community Development Officer: Quintin Barba PhD, Phone: [phone] Performed By: #### L 100.0100, L503.6550, L504.2610, L500.4050, L3100.5020, L503.6030 #### [facility] [address] [place], [address] CBC W/Diff, Automatedon 06-02 Absolute Lymph 0.45 X10 3/uL Low 0.83-4.51 [facility] Comment on above: Order Comment: JIN MANCERA ORDERED RENE IBC CBCD Performed By: #### L 100.0100, L503.6550, L504.2610, L500.4050, L3100.5020, L503.6030 #### [facility] [address] [place], [address] Absolute Neut 2.0 X10 3/uL Normal 2.0-7.7 [facility] Comment on above: Order Comment: JIN MANCERA ORDERED RENE IBC CBCD Performed By: #### L 100.0100, L503.6550, L504.2610, L500.4050, L3100.5020, L503.6030 #### [facility] [address] [place], [address] Basophils/100 WBC (Bld) 1.6 % High 0-1 [facility] Comment on above: Order Comment: JIN MANCERA ORDERED RENE IBC CBCD Performed By: #### L 100.0100, L503.6550, L504.2610, L500.4050, L3100.5020, L503.6030 #### [facility] [address] [place], [address] Eosinophils/100 WBC (Bld) 16.3 % High 0-5 [facility] Comment on above: Order Comment: JIN MANCERA ORDERED RENE IBC CBCD Performed By: #### L 100.0100, L503.6550, L504.2610, L500.4050, L3100.5020, L503.6030 #### [facility] [address] [place], [address] Erythrocyte distribution width (RBC) [Ratio] 13.9 % Normal 11.6-14.6 [facility] Comment on above: Order Comment: JIN MANCERA ORDERED RENE IBC CBCD Performed By: #### L 100.0100, L503.6550, L504.2610, L500.4050, L3100.5020, L503.6030 #### [facility] [address] [place], [address] Hematocrit (Bld) [Volume fraction] 36.2 % Low 37-47 [facility] Comment on above: Order Comment: JIN MANCERA ORDERED RENE IBC CBCD Performed By: #### L 100.0100, L503.6550, L504.2610, L500.4050, L3100.5020, L503.6030 #### [facility] [address] [place], [address] Hemoglobin (Bld) [Mass/Vol] 11.8 g/dL Low 12.0-15.0 [facility] Comment on above: Order Comment: JIN MANCERA ORDERED RENE IBC CBCD Performed By: #### L 100.0100, L503.6550, L504.2610, L500.4050, L3100.5020, L503.6030 #### [facility] [address] [place], [address] IG% 0.300 Normal 0.0-0.9 [facility] Comment on above: Order Comment: JIN MANCERA ORDERED RENE IBC CBCD Result Comment: IG% - Immature Granulocytes (promyelocytes, myelocytes and metamyelocytes) > 1% indicates that a LEFT SHIFT is Present. Performed By: #### L 100.0100, L503.6550, L504.2610, L500.4050, L3100.5020, L503.6030 #### [facility] [address] [place], [address] Lymphocytes/100 WBC (Bld) 12.2 % Low 19-41 [facility] Comment on above: Order Comment: JIN MANCERA ORDERED RENE IBC CBCD Performed By: #### L 100.0100, L503.6550, L504.2610, L500.4050, L3100.5020, L503.6030 #### [facility] [address] [place], [address] MCH (RBC) [Entitic mass] 29.6 pg Normal 27.0-32.0 [facility] Comment on above: Order Comment: JIN MANCERA ORDERED RENE IBC CBCD Performed By: #### L 100.0100, L503.6550, L504.2610, L500.4050, L3100.5020, L503.6030 #### [facility] [address] [place], [address] MCHC (RBC) [Mass/Vol] 32.6 g/dL Normal 32-36 [facility] Comment on above: Order Comment: JIN MANCERA ORDERED RENE IBC CBCD Performed By: #### L 100.0100, L503.6550, L504.2610, L500.4050, L3100.5020, L503.6030 #### [facility] [address] [place], [address] MCV (RBC) [Entitic vol] 90.7 fL Normal 81-99 [facility] Comment on above: Order Comment: JIN MANCERA ORDERED RENE IBC CBCD Performed By: #### L 100.0100, L503.6550, L504.2610, L500.4050, L3100.5020, L503.6030 #### [facility] [address] [place], [address] Monocytes/100 WBC (Bld) 15.4 % High 0-10 [facility] Comment on above: Order Comment: JIN MANCERA ORDERED RENE IBC CBCD Performed By: #### L 100.0100, L503.6550, L504.2610, L500.4050, L3100.5020, L503.6030 #### [facility] [address] [place], [address] Neutrophils/100 WBC (Bld) 54.2 % Normal 47-70 [facility] Comment on above: Order Comment: JIN MANCERA ORDERED RENE IBC CBCD Performed By: #### L 100.0100, L503.6550, L504.2610, L500.4050, L3100.5020, L503.6030 #### [facility] [address] [place], [address] Nucleated RBC (Bld) [#/Vol] 0 10*3/uL Normal 0-5 [facility] Comment on above: Order Comment: JIN MANCERA ORDERED RENE IBC CBCD Performed By: #### L 100.0100, L503.6550, L504.2610, L500.4050, L3100.5020, L503.6030 #### [facility] [address] [place], [address] Platelet mean volume (Bld) [Entitic vol] 8.9 fL Normal 6.2-12.0 [facility] Comment on above: Order Comment: JIN MANCERA ORDERED RENE IBC CBCD Performed By: #### L 100.0100, L503.6550, L504.2610, L500.4050, L3100.5020, L503.6030 #### [facility] [address] [place], [address] Platelets (Bld) [#/Vol] 332 10*3/uL Normal 150-450 [facility] Comment on above: Order Comment: JIN MANCERA ORDERED RENE IBC CBCD Performed By: #### L 100.0100, L503.6550, L504.2610, L500.4050, L3100.5020, L503.6030 #### [facility] [address] [place], [address] RBC (Bld) [#/Vol] 3.99 10*6/uL Low 4.2-5.4 [facility] Comment on above: Order Comment: JIN MANCERA ORDERED RENE IBC CBCD Performed By: #### L 100.0100, L503.6550, L504.2610, L500.4050, L3100.5020, L503.6030 #### [facility] [address] [place], [address] RDW SD 46.5 fl High 35.1-43.9 [facility] Comment on above: Order Comment: JIN MANCERA ORDERED RENE IBC CBCD Performed By: #### L 100.0100, L503.6550, L504.2610, L500.4050, L3100.5020, L503.6030 #### [facility] [address] [place], [address] WBC (Bld) [#/Vol] 3.7 10*3/uL Low 4.4-11.0 [facility] Comment on above: Order Comment: JIN MANCERA ORDERED RENE IBC CBCD Performed By: #### L 100.0100, L503.6550, L504.2610, L500.4050, L3100.5020, L503.6030 #### [facility] [address] [place], [address] Comprehensive Metabolic Prof ilon 06-29-2025 Albumin [Mass/Vol] 3.9 g/dL Normal 3.4-4.8 [facility] Comment on above: Order Comment: JIN MANCERA ORDERED RENE IBC CBCD Performed By: #### L 100.0100, L503.6550, L504.2610, L500.4050, L3100.5020, L503.6030 #### [facility] [address] [place], [address] Albumin/Globulin [Mass ratio] 1.4 {ratio} Normal 0.9-2.4 [facility] Comment on above: Order Comment: JIN MANCERA ORDERED RENE IBC CBCD Performed By: #### L 100.0100, L503.6550, L504.2610, L500.4050, L3100.5020, L503.6030 #### [facility] [address] [place], [address] ALK PHOS 93 U/L Normal 35-104 [facility] Comment on above: Order Comment: JIN MANCERA ORDERED RENE IBC CBCD Performed By: #### L 100.0100, L503.6550, L504.2610, L500.4050, L3100.5020, L503.6030 #### [facility] [address] [place], [address] ALT [Catalytic activity/Vol] 16 U/L Normal <=34 [facility] Comment on above: Order Comment: JIN MANCERA ORDERED RENE IBC CBCD Performed By: #### L 100.0100, L503.6550, L504.2610, L500.4050, L3100.5020, L503.6030 #### [facility] [address] [place], [address] AST [Catalytic activity/Vol] 28 U/L Normal <=31 [facility] Comment on above: Order Comment: JIN MANCERA ORDERED RENE IBC CBCD Performed By: #### L 100.0100, L503.6550, L504.2610, L500.4050, L3100.5020, L503.6030 #### [facility] [address] [place], [address] Bilirubin [Mass/Vol] 0.49 mg/dL Normal 0.00-1.30 [facility] Comment on above: Order Comment: JIN MANCERA ORDERED RENE IBC CBCD Performed By: #### L 100.0100, L503.6550, L504.2610, L500.4050, L3100.5020, L503.6030 #### [facility] [address] [place], [address] BUN/CRE 29.5 RATIO High 10-20 [facility] Comment on above: Order Comment: JIN MANCERA ORDERED RENE IBC CBCD Performed By: #### L 100.0100, L503.6550, L504.2610, L500.4050, L3100.5020, L503.6030 #### [facility] [address] [place], [address] Calcium [Mass/Vol] 9.0 mg/dL Normal 7.6-11.0 [facility] Comment on above: Order Comment: JIN MANCERA ORDERED RENE IBC CBCD Performed By: #### L 100.0100, L503.6550, L504.2610, L500.4050, L3100.5020, L503.6030 #### [facility] [address] [place], [address] Chloride [Moles/Vol] 102 mmol/L Normal 98-108 [facility] Comment on above: Order Comment: JIN MANCERA ORDERED RENE IBC CBCD Performed By: #### L 100.0100, L503.6550, L504.2610, L500.4050, L3100.5020, L503.6030 #### [facility] [address] [place], [address] CO2 [Moles/Vol] 24.7 mmol/L Normal 21.0-32.0 [facility] Comment on above: Order Comment: JIN MANCERA ORDERED RENE IBC CBCD Performed By: #### L 100.0100, L503.6550, L504.2610, L500.4050, L3100.5020, L503.6030 #### [facility] [address] [place], [address] Creatinine [Mass/Vol] 0.54 mg/dL Low 0.70-1.20 [facility] Comment on above: Order Comment: JIN MANCERA ORDERED RENE IBC CBCD Performed By: #### L 100.0100, L503.6550, L504.2610, L500.4050, L3100.5020, L503.6030 #### [facility] [address] [place], [address] ECRCL 35.97 ml/min Low 50-250 [facility] Comment on above: Order Comment: JIN MANCERA ORDERED RENE IBC CBCD Performed By: #### L 100.0100, L503.6550, L504.2610, L500.4050, L3100.5020, L503.6030 #### [facility] [address] [place], [address] GAP 11 Normal 5-15 [facility] Comment on above: Order Comment: JIN MANCERA ORDERED RENE IBC CBCD Performed By: #### L 100.0100, L503.6550, L504.2610, L500.4050, L3100.5020, L503.6030 #### [facility] [address] [place], [address] GFR/1.73 sq M.predicted among non-blacks MDRD (S/P/Bld) [Vol rate/Area] 88 mL/min/{1.73_m2} Normal >60 [facility] Comment on above: Order Comment: JIN MANCERA ORDERED RENE IBC CBCD Result Comment: mL/m in/1.73m2 CKD-EPI Creatinine Equation (2020) Performed By: #### L 100.0100, L503.6550, L504.2610, L500.4050, L3100.5020, L503.6030 #### [facility] [address] [place], [address] Globulin (S) [Mass/Vol] 2.7 g/dL Normal 2.2-4.2 [facility] Comment on above: Order Comment: JIN MANCERA ORDERED RENE IBC CBCD Performed By: #### L 100.0100, L503.6550, L504.2610, L500.4050, L3100.5020, L503.6030 #### [facility] [address] [place], [address] Glucose [Mass/Vol] 91 mg/dL Normal 70-99 [facility] Comment on above: Order Comment: JIN MANCERA ORDERED RENE IBC CBCD Performed By: #### L 100.0100, L503.6550, L504.2610, L500.4050, L3100.5020, L503.6030 #### [facility] [address] [place], [address] Potassium [Moles/Vol] 4.4 mmol/L Normal 3.3-5.1 [facility] Comment on above: Order Comment: JIN MANCERA ORDERED RENE IBC CBCD Performed By: #### L 100.0100, L503.6550, L504.2610, L500.4050, L3100.5020, L503.6030 #### [facility] [address] [place], [address] Sodium [Moles/Vol] 138 mmol/L Normal 133-145 [facility] Comment on above: Order Comment: JIN MANCERA ORDERED RENE IBC CBCD Performed By: #### L 100.0100, L503.6550, L504.2610, L500.4050, L3100.5020, L503.6030 #### [facility] [address] [place], [address] T PROT 6.6 g/dL Normal 5.9-8.4 [facility] Comment on above: Order Comment: JIN MANCERA ORDERED RENE IBC CBCD Performed By: #### L 100.0100, L503.6550, L504.2610, L500.4050, L3100.5020, L503.6030 #### [facility] [address] [place], [address] Urea nitrogen [Mass/Vol] 16 mg/dL Normal 4-19 [facility] Comment on above: Order Comment: JIN MANCERA ORDERED RENE IBC CBCD Performed By: #### L 100.0100, L503.6550, L504.2610, L500.4050, L3100.5020, L503.6030 #### [facility] [address] [place], [address] Ferritinon 06-29-2025 Ferritin [Mass/Vol] 169 ng/mL Normal 22-378 [facility] Comment on above: Order Comment: JIN MANCERA ORDERED RENE IBC CBCD Performed By: #### L 100.0100, L503.6550, L504.2610, L500.4050, L3100.5020, L503.6030 #### [facility] [address] [place], [address] Iron+Iron Binding Capacityon 06-29-2025 Iron [Mass/Vol] 61 ug/dL Normal 50-170 [facility] Comment on above: Order Comment: JIN MANCERA ORDERED RENE IBC CBCD Performed By: #### L 100.0100, L503.6550, L504.2610, L500.4050, L3100.5020, L503.6030 #### [facility] [address] [place], [address] IRON SATURATION 25.0 Normal 13-59 [facility] Comment on above: Order Comment: JIN MANCERA ORDERED RENE IBC CBCD Performed By: #### L 100.0100, L503.6550, L504.2610, L500.4050, L3100.5020, L503.6030 #### [facility] [address] [place], [address] TIBC 246 ug/dL Low 250-450 [facility] Comment on above: Order Comment: JIN MANCERA ORDERED RENE IBC CBCD Performed By: #### L 100.0100, L503.6550, L504.2610, L500.4050, L3100.5020, L503.6030 #### [facility] [address] [place], [address] UIBC 185 ug/dL Low 228-428 [facility] Comment on above: Order Comment: JIN MANCERA ORDERED RENE IBC CBCD Performed By: #### L 100.0100, L503.6550, L504.2610, L500.4050, L3100.5020, L503.6030 #### [facility] [address] [place], [place], [address] LDHon 06-29-2025 LDH 175 U/L Normal 84-246 [facility] Comment on above: Order Comment: JIN MANCERA ORDERED RENE [facility] CBCD 1 Performed By: #### L 100.0100, L503.6550, L504.2610, L500.4050, L3100.5020, L503.6030 #### [facility] [address] [place], [address] [facility] ([id number]) 1935 F NFR Date Time Provider Department 06/16/25 ANITRA MANCERA [facility] During your visit today, we recorded the following information about you: Sharon Paul RN 06/16/2025 2:01 PM Signed Patient calls and states that [facility]. [facility] told her to take Gabapentin TID instead of daily. YARY Krueger Jacqueline A, GENERAL SURGEON.[facility] 06/17/2025 8:01 AM Signed Can try it but I think she was not tolerating it 3 x day. Will change order to reflect 3 x day Zulma Ji MA 06/17/2025 9:18 AM Signed Spoke with patient and relayed provider message Allergies As of Date: 06/16/2025 Noted Allergy Reaction VICODIN (HYDROCODONE-ACETAMINOPHE*01/2013 8 - [...] 04/29/2019 8 - GI Upset Date Reviewed: 06/14/2025 Reviewed by: Zulma Ji MA - Fully Assessed Reason for Visit: Patient Update [1234] Visit Diagnosis:RLS (restless legs syndrome) [G25.81] Order(s):gabapentin (NEURONTIN) 100 mg capsuleTake 1 capsule by mouth three times a day for 180 days.Disp: 90 capsuleRfl: 5 Prescriptions as of 06/17/2025 - gabapentin (NEURONTIN) 100 mg capsule Take 1 capsule by mouth three times a day for 180 days. - nortriptyline (PAMELOR) 10 mg capsule Take 10 mg by mouth daily at bedtime. - lipase/protease/amylase (CREON ORAL) Take 9,000 Units by mouth once daily. - ojrhrj-bnnwfqgu-zqwlvee (CREON) 3,000-9,500- 15,000 unit delayed release capsule Take 1 capsule by mouth three times a day with meals. - levothyroxine (SYNTHROID) 75 mcg tablet Take 75 mcg by mouth daily before breakfast. - rOPINIRole (REQUIP) 0.5 mg tablet Take 1.5 tablets by mouth daily at bedtime. - Vit B Complex 100 Combo No.2 (B-100 COMPLEX) 100 mg TbER Take 1 tablet by mouth once daily. - fluticasone propionate (ARMONAIR DIGIHALER) 232 mcg/actuation inhaler Inhale 1 Puff as instructed two times a day. - levalbuterol tartrate HFA 45 mcg/actuation inhaler Inhale 1-2 Puffs as instructed every 4 hours as needed for wheezing/shortness of breath. - clonazePAM (KLONOPIN) 0.5 mg tablet Take 0.5 mg by mouth at bedtime as needed. Dr Dupree - vit A,C,R-Sgbm-Huzoao (PRESERVISION AREDS) 7,160-113-100 kdoe-ql-jihl tab Take 1 tablet by mouth once daily. - ACETAMINOPHEN 500 MG TAB Take 1,000 mg by mouth every 8 hours as needed for pain. 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 Normal [facility] Visit Reporton 0 06-15-2025 Urgent Care Visit Report [facility] [address], [address] [place] [address] OFFICE VISIT Date of Service: 06/15/25 MR#: [id number] Acct: [id number] Name: SACHI GRACE Rep #: [id number] : 1935 Provider: JOSE Fontanez Age/Sex: 89/F Location: [facility] Status: Signed Intake Vital Signs 06/09/25 11:00 06/15/25 17:52 Height 5 ft 1 in 5 ft 1 in Weight: 114 lb 2 oz 115 lb 4 oz BMI 21.5 21.7 BP 116/75 110/60 Blood Pressure Location Lt brachial Position Sitting Sitting Respiration 16 18 Pulse 92 108 H Pulse Source Monitor Temp 98.0 F Temp Source Oral Pulse Oximetry (%) 96 98 Oxygen Delivery Method room air room air Intake Visit Reasons: SORE THROAT Chief Complaint: F/u for Pancreatic cancer. Allergies cocamidopropyl betaine Allergy (Intermediate, Verified 06/15/25 17:45) Rash Sulfa (Sulfonamide Antibiotics) Allergy (Verified 06/15/25 17:45) Swelling Environmental Allergies: Uncoded (dust) Adverse Reaction (Severe, Verified 06/15/25 17:45) NEEDS FOLLOW-UP mold Adverse Reaction (Severe, Verified 06/15/25 17:45) NEEDS FOLLOW-UP metoprolol Adverse Reaction (Intermediate, Verified 06/15/25 17:45) I feel awful codeine Adverse Reaction (Verified 06/15/25 17:45) Nausea diphenhydramine (From Benadryl) Adverse Reaction (Verified 06/15/25 17:45) Nausea hydrocodone bitartrate (From Vicodin) Adverse Reaction (Verified 06/15/25 17:45) Nausea oxycodone HCl (From Percocet) Adverse Reaction (Verified 06/15/25 17:45) Nausea tetracycline Adverse Reaction (Verified 06/15/25 17:45) Nausea/Vom/Diarrhea Medications ???Medication ???Instructions ???Recorded ???Confirmed ???Type albuterol sulfate 90 mcg/actuation 1 puff inhalation Q4H PRN PRN 06/09/25 History aerosol inhaler Wheezing vit C 250 mg-vit E 90 mg-zinc 40 1 tab PO BID 11/22/17 06/15/25 His tory mg-copper 1 lm-xusmea-hsowhv capsule (PreserVision AREDS-2) polyethylene glycol 3350 17 17 g PO QDAY PRN Constipation 03/0 01/1906/09/25 History gram/dose oral powder (Miralax) acetaminophen 325 mg tablet 500 mg (1.5385 x 325 mg) PO Q4H 06/15/25 Rx PRN PRN Mild-Moderate Pain (1-5/10) CBD Oral (INFORMATIONAL USE 11/10/24 06/09/25 History ONLY-PT USES ORAL CBD) nortriptyline 10 mg capsule 10 mg PO BID #120 caps 01/20/25 Rx levalbuterol tartrate 45 2 puff inhalation Q4 PRN 02/24/25 06/15/25 History mcg/actuation aerosol inhaler levothyroxine 50 mcg tablet 75 mcg PO DAILY 02/24/25 06/15/25 History ropinirole 0.5 mg tablet 0.5 mg PO DAILY 02/24/25 06/15/25 History lorazepam 0.5 mg tablet 0.5 mg PO BID PRN anxiety #60 tabs 03/12/25 06/15/25 Rx ondansetron 8 mg disintegrating 8 mg PO Q12H PRN nausea and 06/09/25 Rx tablet vomiting #30 tabs rzzvlt-raomuesh-sjctpes 1 cap PO TID #90 caps 06/09/25 Rx 3,000-9,500-15,000 unit capsule, delayed rel (Creon) propranolol 10 mg tablet 5 mg PO BID PRN anxiety 06/09/25 0 06/09/25 History Have you fallen in the past year?: No Nurse's Note: Patient has a ST. Patient states it started last night and then this am she woke up with it burning and her mouth is burning. Patient states that the roof of her mouth maya and lips. [facility] Medical History Costovertebral angle tenderness Anorexia Back pain RUY [...] type of physical activity do you participate in (more content not included)... [facility] CNOVon 06-14-2025 CNOV Office Visit (FAMPWS ) SACHI GRACE ([id number]) 1935 F NFR Date Time Provider Department 06/14/25 10:40 AM ANITRA MANCERA During your visit today, we recorded the following information about you: Pulse Blood pressure Weight 89/minute 110/66 51.3 kg Anitra Mancera, [employer] 06/14/2025 11:33 AM Signed This is a 89 year old female who presents today with: Patient presents with: F/U 3 Month HISTORY OF PRESENT ILLNESS: Sachi Grace is a 89 year old female. Patient presents with: F/U 3 Month Sachi Grace is an 89-year-old female with a history of pancreatic cancer, asthma, and restless leg syndrome, presenting for weight loss, dyspnea, and edema. Weight Loss: - Taking pancreatic enzymes x5 weeks, with improvement in digestion. - Persistent weight loss despite increased protein intake. - Consuming protein shakes and powder. - Denies nausea or emesis. - Reports anosmia for several years. - Denies dysphagia. Pancreatic Cancer: - Recent high tumor markers. - Undergoing radiation therapy; informed that effects may last for months. - Reports acholic stools. Asthma: - Using inhaler PRN. - Recent increase in wheezing, previously using inhaler 2 puffs every 4-6 hours with minimal relief. - Identified wheezing as a side effect of a psychiatric medication; discontinued medication with subsequent improvement in wheezing. - Reports occasional cough and dyspnea. - Denies orthopnea. Restless Leg Syndrome: - Taking ropinirole 1.5 tablets nightly; 1 tablet before bed and 0.5 tablet at 0230. - Has gabapentin at home but not currently taking it. - Reports worsening symptoms, especially during the day. Edema: - Bilateral lower extremity edema, worse in the evenings. - Reports nocturia. 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 - Experiencing tachycardia and jittery legs. - Taking nortriptyline for anxiety; recent low serum level of 19. - Long-term use of sertraline x30 years. - Upcoming appointment with psychiatrist next week. Fatigue: - Reports significant fatigue. - Denies fever or chills. - Denies weakness or falls. Dietary Deficiencies: - Reports a sore mouth, believes it is related to dietary deficiencies. PAST MEDICAL HISTORY: PAST MEDICAL HISTORY Diagnosis [...] supraventricular tachycardia (HCC) ablation 01/2002 ( in [place], [facility]), follows with Dr. Moreno (prn only) [...] FLX DX W/COLLJ SPEC WHEN PFRMD 10/14/2018 [facility]-Repeat 5 years COLONOSCOPY SCREENING 11/15/2023 R Cebul no repeat due to age CORRECT BUNION,SIMPLE left ECHOCARDIOGRAM 10/18/2017 EGD 1985 bleeding ulcer EPS: SVT/VT ABLATION 2001 [facility] ESOPHAGOGASTRODUODENOSCOPY TRANSORAL DIAGNOSTIC 03/24/2018 EGD HERNIA REPAIR HX 09/2020 ventral hernia repair HOLTER 24 HR 10/2017 LOOP RECORDER IMPLANT 01/23/2018 NASAL/SINUS ENDOSCOPY WITH SPHENOIDOTOMY Bilateral 05/15/2019 Dr. Ruffin NASAL/SINUS ENDOSCPY W/MAXILL ANTROSTOMY Bilateral 05/15/2019 Dr. Ruffin NASAL/SINUS ENDOSCPY W/TOTAL ETHMOIDECTOMY Bilateral 05/15/2019 Dr. Ruffin OPEN REPAIR OF ROTATOR CUFF ACUTE 04/2005 Dr. Mejias PAST SURGICAL HISTORY OF 10/1997 partial colectomy ([place], [facility]) PAST SURGICAL HISTORY OF 2011 nerves cut in my back STEREO LOC FOR CORE BRST BX LT 04/24/2010 left STRESS TEST 12/17/2017 TONSILLECTOMY PRIMARY/SECONDARY ALLERGIES Vicodin [Hydrocodone-Acetaminophen], Buspirone, Cocamidopropyl Betaine, Codeine, Pantoprazole, Percocet [Oxycodone-Acetaminophen], Sulfa (Sulfonamide Antibiotics), and Tetracycline MEDICATIONS Current Outpatient Medications Medication Sig nortriptyline (PAMELOR) 10 mg capsule Take 10 mg by mouth daily at bedtime. lipase/protease/amylase (CREON ORAL) Take 9,000 Units by (more content not included)... Normal [facility] Oncology Visit Reporton Oncology Visit Report [facility] [address] [place] [address] OFFICE VISIT Date of Service: 06/09/25 1100 MR#: [id number] Acct: [id number] Name: SACHI GRACE Lila Rep #: [id number] : 1935 From: Marques King MD Age/Sex: 89/F Location: [facility] Status: Signed HPI Subjective Date of Service 06/09/25 Chief Complaint F/u for Pancreatic cancer. History of Present Illness 89-year-old woman was found to have head/body pancreatic mass. Presented with abdominal pain to [place] [facility], CT of the abdomen and pelvis on 12/10/2024 showed 2.8 cm mass with ill-defined margins in the body of the pancreas. She was seen by GI on 01/01/2025 and was referred for EUS and biopsy. She had EUS and biopsy at [facility] on 02/10/2025 which showed 3.6 cm [...] of 3000 cGy in 5 fractions 04/05/25-04/09/25. She is on observation. Comes for follow up. Abdominal pain/nausea has resolved, esating well. [facility] Medical History Costovertebral angle tenderness Anorexia Back pain RUY [...] safe at home: Yes Intake Vital Signs 05/12/25 14:05 05/21/25 10:02 06/09/25 11:00 Height 5 ft 1 in 5 ft 1 in 5 ft 1 in Weight: 52.163 kg 51.766 kg BMI 21.7 21.5 BP 135/87 H 116/75 Blood Pressure Location Lt brachial Lt brachial Position Sitting Sitting Respiration 16 16 Pulse 77 92 Pulse Source Monitor Monitor Temp 98.2 F Temperature Source Temporal Artery Pulse Oximetry (%) 97 96 Oxygen Delivery Method room air room air Intake Is patient in pain?: No Allergies cocamidopropyl betaine Allergy (Intermediate, Verified 06/09/25 11:07) Rash Sulfa (Sulfonamide Antibiotics) Allergy (Verified 06/09/25 11:07) Swelling Environmental Allergies: Uncoded (dust) Adverse Reaction (Severe, Verified 06/09/25 11:07) NEEDS FOLLOW-UP mold Adverse Reaction (Severe, Verified 06/09/25 11:07) NEEDS FOLLOW-UP metoprolol Adverse Reaction (Intermediate, Verified 06/09/25 11:07) I feel awful codeine Adverse Reaction (Verified 06/09/25 11:07) Nausea diphenhydramine (From Benadryl) Adverse Reaction (Verified 06/09/25 11:07) Nausea hydrocodone bitartrate (From Vicodin) Adverse Reaction (Verified 06/09/25 11:07) Nausea oxycodone HCl (From Percocet) Adverse Reaction (Verified 06/09/25 11:07) Nausea tetracycline Adverse Reaction (Verified 06/09/25 11:07) Nausea/Vom/Diarrhea Medications ???Medication ???Instructions ???Recorded ???Confirmed ???Type albuterol sulfate 90 mcg/actuation 1 puff inhalation Q4H PRN PRN 06/09/25 History aerosol inhaler Wheezing vit C 250 mg-vit E 90 mg-zinc 40 1 tab PO BID 11/22/17 06/09/25 His tory mg-copper 1 mg-l (more content not included)... Normal [facility] Carbohydrate AG 19-9on 06-03 CA 19-9 305 U/mL High 0-35 [facility] Comment on above: Result Comment: [employer] Electrochemiluminescence Immunoassay (ECLIA) Values obtained with different assay methods or kits cannot be used interchangeably. Results cannot be interpreted as absolute evidence of the presence or absence of malignant disease. Performed at: [facility] [address] [place] [id number] Community Development Officer: Quintin Barba PhD, Phone: [phone] Performed By: #### L 100.0100, L500.4050, L504.2610, L3100.0100 ####[facility] [address] [place], [address] CBC W/Diff, Automatedon 07-0 1-5 Absolute Lymph 0.60 X10 3/uL Low 0.83-4.51 [facility] Comment on above: Performed By: #### L 100.0100, L500.4050, L504.2610, L3100.5020 ####[facility] [address] [place], [address] Absolute Neut 3.6 X10 3/uL Normal 2.0-7.7 [facility] Comment on above: Performed By: #### L 100.0100, L500.4050, L504.2610, L3100.5020 ####[facility] [address] [place], [address] Basophils/100 WBC (Bld) 0.9 % Normal 0-1 [facility] Comment on above: Performed By: #### L 100.0100, L500.4050, L504.2610, L3100.5020 ####[facility] [address] [place], [address] Eosinophils/100 WBC (Bld) 10.7 % High 0-5 [facility] Comment on above: Performed By: #### L 100.0100, L500.4050, L504.2610, L3100.5020 ####[facility] [address] [place], [address] Erythrocyte distribution width (RBC) [Ratio] 14.6 % Normal 11.6-14.6 [facility] Comment on above: Performed By: #### L 100.0100, L500.4050, L504.2610, L3100.5020 ####[facility] [address] [place], [address] Hematocrit (Bld) [Volume fraction] 35.8 % Low 37-47 [facility] Comment on above: Performed By: #### L 100.0100, L500.4050, L504.2610, L3100.5020 ####[facility] [address] [place], [address] Hemoglobin (Bld) [Mass/Vol] 11.8 g/dL Low 12.0-15.0 [facility] Comment on above: Performed By: #### L 100.0100, L500.4050, L504.2610, L3100.5020 ####[facility] [address] [place], [address] IG% 0.200 Normal 0.0-0.9 [facility] Comment on above: Result Comment: IG% - Immature Granulocytes (promyelocytes, myelocytes and metamyelocytes) > 1% indicates that a LEFT SHIFT is Present. Performed By: #### L 100.0100, L500.4050, L504.2610, L3100.5020 ####[facility] [address] [place], [address] Lymphocytes/100 WBC (Bld) 10.5 % Low 19-41 [facility] Comment on above: Performed By: #### L 100.0100, L500.4050, L504.2610, L3100.5020 ####[facility] [address] [place], [address] MCH (RBC) [Entitic mass] 30.3 pg Normal 27.0-32.0 [facility] Comment on above: Performed By: #### L 100.0100, L500.4050, L504.2610, L3100.5020 ####[facility] [address] [place], [address] MCHC (RBC) [Mass/Vol] 33.0 g/dL Normal 32-36 [facility] Comment on above: Performed By: #### L 100.0100, L500.4050, L504.2610, L3100.5020 ####[facility] [address] [place], [address] MCV (RBC) [Entitic vol] 92.0 fL Normal 81-99 [facility] Comment on above: Performed By: #### L 100.0100, L500.4050, L504.2610, L3100.5020 ####[facility] [address] [place], [address] Monocytes/100 WBC (Bld) 14.2 % High 0-10 [facility] Comment on above: Performed By: #### L 100.0100, L500.4050, L504.2610, L3100.5020 ####[facility] [address] [place], [address] Neutrophils/100 WBC (Bld) 63.5 % Normal 47-70 [facility] Comment on above: Performed By: #### L 100.0100, L500.4050, L504.2610, L3100.5020 ####[facility] [address] [place], [address] Nucleated RBC (Bld) [#/Vol] 0 10*3/uL Normal 0-5 [facility] Comment on above: Performed By: #### L 100.0100, L500.4050, L504.2610, L3100.5020 ####[facility] [address] [place], [address] Platelet mean volume (Bld) [Entitic vol] 9.2 fL Normal 6.2-12.0 [facility] Comment on above: Performed By: #### L 100.0100, L500.4050, L504.2610, L3100.5020 ####[facility] [address] [place], [address] Platelets (Bld) [#/Vol] 325 10*3/uL Normal 150-450 [facility] Comment on above: Performed By: #### L 100.0100, L500.4050, L504.2610, L3100.5020 ####[facility] [address] [place], [address] RBC (Bld) [#/Vol] 3.89 10*6/uL Low 4.2-5.4 [facility] Comment on above: Performed By: #### L 100.0100, L500.4050, L504.2610, L3100.5020 ####[facility] [address] [place], [address] RDW SD 49.3 fl High 35.1-43.9 [facility] Comment on above: Performed By: #### L 100.0100, L500.4050, L504.2610, L3100.5020 ####[facility] [address] [place], [address] WBC (Bld) [#/Vol] 5.7 10*3/uL Normal 4.4-11.0 [facility] Comment on above: Performed By: #### L 100.0100, L500.4050, L504.2610, L3100.5020 ####[facility] [address] [place], [address] Comprehensive Metabolic Prof [facility] 06-01-2025 Albumin [Mass/Vol] 3.8 g/dL Normal 3.4-4.8 [facility] Comment on above: Performed By: #### L 100.0100, L500.4050, L504.2610, L3100.5020 ####[facility] [address] [place], [address] Albumin/Globulin [Mass ratio] 1.3 {ratio} Normal 0.9-2.4 [facility] Comment on above: Performed By: #### L 100.0100, L500.4050, L504.2610, L3100.5020 ####[facility] [address] [place], [address] ALK PHOS 100 U/L Normal 35-104 [facility] Comment on above: Performed By: #### L 100.0100, L500.4050, L504.2610, L3100.5020 ####[facility] [address] [place], [address] ALT [Catalytic activity/Vol] 16 U/L Normal <=34 [facility] Comment on above: Performed By: #### L 100.0100, L500.4050, L504.2610, L3100.5020 ####[facility] [address] [place], [address] AST [Catalytic activity/Vol] 26 U/L Normal <=31 [facility] Comment on above: Performed By: #### L 100.0100, L500.4050, L504.2610, L3100.5020 ####[facility] [address] [place], [address] Bilirubin [Mass/Vol] 0.62 mg/dL Normal 0.00-1.30 [facility] Comment on above: Performed By: #### L 100.0100, L500.4050, L504.2610, L3100.5020 ####[facility] [address] [place], [address] BUN/CRE 26.7 RATIO High 10-20 [facility] Comment on above: Performed By: #### L 100.0100, L500.4050, L504.2610, L3100.5020 ####[facility] [address] [place], [address] Calcium [Mass/Vol] 9.4 mg/dL Normal 7.6-11.0 [facility] Comment on above: Performed By: #### L 100.0100, L500.4050, L504.2610, L3100.5020 ####[facility] [address] [place], [address] Chloride [Moles/Vol] 101 mmol/L Normal 98-108 [facility] Comment on above: Performed By: #### L 100.0100, L500.4050, L504.2610, L3100.5020 ####[facility] [address] [place], [address] CO2 [Moles/Vol] 25.3 mmol/L Normal 21.0-32.0 [facility] Comment on above: Performed By: #### L 100.0100, L500.4050, L504.2610, L3100.5020 ####[facility] [address] [place], [address] Creatinine [Mass/Vol] 0.52 mg/dL Low 0.70-1.20 [facility] Comment on above: Performed By: #### L 100.0100, L500.4050, L504.2610, L3100.5020 ####[facility] [address] [place], [address] ECRCL 35.97 ml/min Low 50-250 [facility] Comment on above: Performed By: #### L 100.0100, L500.4050, L504.2610, L3100.5020 ####[facility] [address] [place], [address] GAP 10 Normal 5-15 [facility] Comment on above: Performed By: #### L 100.0100, L500.4050, L504.2610, L3100.5020 ####[facility] [address] [place], [address] GFR/1.73 sq M.predicted among non-blacks MDRD (S/P/Bld) [Vol rate/Area] 89 mL/min/{1.73_m2} Normal >60 [facility] Comment on above: Result Comment: mL/m in/1.73m2 CKD-EPI Creatinine Equation (2020) Performed By: #### L 100.0100, L500.4050, L504.2610, L3100.5020 ####[facility] [address] [place], [address] Globulin (S) [Mass/Vol] 2.9 g/dL Normal 2.2-4.2 [facility] Comment on above: Performed By: #### L 100.0100, L500.4050, L504.2610, L3100.5020 ####[facility] [address] [place], [address] Glucose [Mass/Vol] 135 mg/dL High 70-99 [facility] Comment on above: Performed By: #### L 100.0100, L500.4050, L504.2610, L3100.5020 ####[facility] [address] [place], [address] Potassium [Moles/Vol] 4.2 mmol/L Normal 3.3-5.1 [facility] Comment on above: Performed By: #### L 100.0100, L500.4050, L504.2610, L3100.5020 ####[facility] [address] [place], [address] Sodium [Moles/Vol] 137 mmol/L Normal 133-145 [facility] Comment on above: Performed By: #### L 100.0100, L500.4050, L504.2610, L3100.5020 ####[facility] [address] [place], [address] T PROT 6.6 g/dL Normal 5.9-8.4 [facility] Comment on above: Performed By: #### L 100.0100, L500.4050, L504.2610, L3100.5020 ####[facility] [address] [place], [address] Urea nitrogen [Mass/Vol] 14 mg/dL Normal 4-19 [facility] Comment on above: Performed By: #### L 100.0100, L500.4050, L504.2610, L3100.5020 ####[facility] [address] [place], [address] LDHon 06-01-2025 LDH 193 U/L Normal 84-246 [facility] Comment on above: Order Comment: 1 Performed By: #### L 100.0100, L500.4050, L504.2610, L3100.5020 ####[facility] [address] [place], [address] Radiation Oncology Visiton 0 05-21-2025 Radiation Oncology Visit [facility] [address] [place] [address] OFFICE VISIT Date of Service: 05/21/25956 MR#: [id number] Acct: [id number] Name: SACHI GRACE Rep #: [id number] : 1935 From: Andi De Luna DO Age/Sex: 89/F Location: [facility] Status: Signed Intake Vital Signs 04/07/25 10:40 05/14/25 20:59 05/21/25 10:02 Height 5 ft 1 in 5 ft 1 in 5 ft 1 in Weight: 115 lb BMI 21.7 BP 135/87 H Blood Pressure Location Lt brachial Position Sitting Respiration 16 Pulse 77 Pulse Source Monitor Temp 98.2 F Temperature Source Temporal Artery Pulse Oximetry (%) 97 Oxygen Delivery Method room air Intake Visit Reasons: 1 MONTH F/U POST RT Is patient in pain?: No Allergies cocamidopropyl betaine Allergy (Intermediate, Verified 05/21/25 10:00) Rash Sulfa (Sulfonamide Antibiotics) Allergy (Verified 05/21/25 10:00) Swelling Environmental Allergies: Uncoded (dust) Adverse Reaction (Severe, Verified 05/21/25 10:00) NEEDS FOLLOW-UP mold Adverse Reaction (Severe, Verified 05/21/25 10:00) NEEDS FOLLOW-UP metoprolol Adverse Reaction (Intermediate, Verified 05/21/25 10:00) I feel awful codeine Adverse Reaction (Verified 05/21/25 10:00) Nausea diphenhydramine (From Benadryl) Adverse Reaction (Verified 05/21/25 10:00) Nausea hydrocodone bitartrate (From Vicodin) Adverse Reaction (Verified 05/21/25 10:00) Nausea oxycodone HCl (From Percocet) Adverse Reaction (Verified 05/21/25 10:00) Nausea tetracycline Adverse Reaction (Verified 05/21/25 10:00) Nausea/Vom/Diarrhea Medications ???Medication ???Instructions ???Recorded ???Confirmed ???Type albuterol sulfate 90 mcg/actuation 1 puff inhalation Q4H PRN PRN 05/21/25 History aerosol inhaler Wheezing vit C 250 mg-vit E 90 mg-zinc 40 1 tab PO BID 11/22/17 05/21/25 His tory mg-copper 1 gm-byejnc-jyvpro capsule (PreserVision AREDS-2) polyethylene glycol 3350 17 17 g PO QDAY PRN Constipation 03/0 01/1905/21/25 History gram/dose oral powder (Miralax) acetaminophen 325 mg tablet 500 mg (1.5385 x 325 mg) PO Q4H 05/21/25 Rx PRN PRN Mild-Moderate Pain (1-5/10) CBD Oral (INFORMATIONAL USE 11/10/24 05/21/25 History ONLY-PT USES ORAL CBD) nortriptyline 10 mg capsule 10 mg PO BID #120 caps 01/20/25 Rx levalbuterol tartrate 45 2 puff inhalation Q4 PRN 02/24/25 05/21/25 History mcg/actuation aerosol inhaler levothyroxine 50 mcg tablet 75 mcg PO DAILY 02/24/25 05/21/25 History ropinirole 0.5 mg tablet 0.5 mg PO DAILY 02/24/25 05/21/25 History lorazepam 0.5 mg tablet 0.5 mg PO BID PRN anxiety #60 tabs 03/12/25 05/21/25 Rx nitrofurantoin 1 cap PO BID 03/17/25 05/21/25 His tory monohydrate/macrocrystals 100 mg capsule ondansetron 8 mg disintegrating 8 mg PO Q12H PRN nausea and 05/21/25 Rx tablet vomiting #30 tabs xaqjlu-kbslxmnq-yxmemax 1 cap PO TID #90 caps 05/12/25 Rx 3,000-9,500-15,000 unit capsule, delayed rel (Creon) Have you fallen in the past year?: No PFSH PFSH Medical History Costovertebral angle tenderness Anorexia Back pain RUY [...] BID 11/22/17 Unknown Hist ory mg-copper 1 mw-kettpl-ebhcpi capsule (PreserVision AREDS-2) polyethylene glycol 3350 17 [...] ropinirole 0.5 mg tablet 0.5 mg PO DONALD (more content not included)... Normal [facility] CNOVon 05-17-2025 CNOV Office Visit (FAMPWS ) SACHI GRACE ([id number]) 1935 F NFR Date Time Provider Department 05/17/25 10:20 AM DAWIT PHELAN During your visit today, we recorded the following information about you: Pulse Blood pressure Weight 87/minute 122/76 52 kg Dawit Phelan, [employer] 05/17/2025 10:57 AM Signed Chief Complaint Patient presents with: ER F/U HPI Sachi Grace is a 89 year old female who presents here today for Above Complaints. Patient presents for ER follow up for increased anxiety and tremors. Patient was started on zofran and escitalopram which she stopped 3 weeks ago. Patient reports her symptoms have persisted despite stopping both medications. Labs in ER were normal. Has not had nortriptyline level in 2 years. Past medical history, appointments, medications, allergies reviewed. 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 Moreno (prn only) [...] FLX DX W/COLLJ SPEC WHEN PFRMD 10/14/2018 [facility]-Repeat 5 years COLONOSCOPY SCREENING 11/15/2023 R Cebul no repeat due to age CORRECT BUNION,SIMPLE left ECHOCARDIOGRAM 10/18/2017 EGD 1985 bleeding ulcer EPS: SVT/VT ABLATION 2001 [facility] ESOPHAGOGASTRODUODENOSCOPY TRANSORAL DIAGNOSTIC 03/24/2018 EGD HERNIA REPAIR HX 09/2020 ventral hernia repair HOLTER 24 HR 10/2017 LOOP RECORDER IMPLANT 01/23/2018 NASAL/SINUS ENDOSCOPY WITH SPHENOIDOTOMY Bilateral 05/15/2019 Dr. Ruffin NASAL/SINUS ENDOSCPY W/MAXILL ANTROSTOMY Bilateral 05/15/2019 Dr. Ruffin NASAL/SINUS ENDOSCPY W/TOTAL ETHMOIDECTOMY Bilateral 05/15/2019 Dr. Ruffin OPEN REPAIR OF ROTATOR CUFF ACUTE 04/2005 Dr. Mejias PAST SURGICAL HISTORY OF 10/1997 partial colectomy ([place], [facility]) PAST SURGICAL HISTORY OF 2011 nerves cut in my back STEREO LOC FOR CORE BRST BX LT 04/24/2010 left STRESS TEST 12/17/2017 TONSILLECTOMY PRIMARY/SECONDARY Family History FAMILY HISTORY Problem Relation Age of Onset Heart Mother rheumatic; 73 Colon Cancer Father dx'd age 50's Coronary Artery Disease Father age 40s, CABG (among the first done at in [place]) Stroke Sister at 58 of ruptured aneurysm [...] on File Prior to Visit Medication Sig lipase/protease/amylase (CREON ORAL) Take 9,000 Units by mouth once daily. edhmji-gkilltud-wizacnl (CREON) 3,000-9,500- 15,000 unit delayed release capsule Take 1 capsule by mouth three times a day with meals. levothyroxine (SYNTHROID) 75 mcg tablet Take 75 mcg by mouth daily before breakfast. ondansetron (ZOFRAN) 4 mg tablet Take 1 tablet by mouth every 8 hours as needed for nausea/vomiting. rOPINIRole (REQUIP) 0.5 mg tablet Take 1.5 tablets by mouth daily at bedtime. Vit B Complex 100 Combo No.2 (B-100 COMPLEX) 100 mg TbER Take 1 tablet by mouth once daily. fluticasone propionate (ARMONAIR DIGIHALER) 232 mcg/actuation inhaler Inhale 1 Puff as instructed two times a day. levalbuterol tartrate HFA 45 mcg/actuation inhaler Inhale 1-2 Puffs as instructed every 4 hours as needed for wheezing/shortness of breath. clonazePAM (KLONOPIN) 0.5 mg tablet Take 0.5 mg by mouth at bedtime as needed. Dr Dupree vit A,C,N-Ccoq-Gjcwss (PRESERVIS (more content not included)... Normal [facility] Comprehensive metabolic 2000 panelon 05-17-2025 Albumin [Mass/Vol] 4.2 g/dL Normal 3.9-4.9 [facility] Comment on above: Order Comment: Speci men Type: BLOOD SPECIMEN Ordering Facility: [facility] Address: [address] [place] [address] Performed By: #### 2 4323-8, 62840-5, 3015-3, LIPNF #### [facility] CLIA [id number] [address] [place], [place] [address]K [id number] [place] [address] [place] ALP [Catalytic activity/Vol] 79 U/L Normal 34-123 [facility] Comment on above: Order Comment: Speci men Type: BLOOD SPECIMEN Ordering Facility: [facility] Address: [address] [place] [address] Performed By: #### 2 4323-8, 68957-6, 3015-3, LIPNF #### [facility] CLIA [id number] [address] [place], [place] [id number] [place] ALT [Catalytic activity/Vol] 18 U/L Normal 7-38 [facility] Comment on above: Order Comment: Speci men Type: BLOOD SPECIMEN Ordering Facility: [facility] Address: [address] [place] [address] Performed By: #### 2 4323-8, 28957-6, 6-3, LIPNF #### [facility] CLIA [id number] [address] [place] [address] [place] Anion gap [Moles/Vol] 15 mmol/L Normal 8-15 [facility] Comment on above: Order Comment: Speci men Type: BLOOD SPECIMEN Ordering Facility: [facility] Address: [address] [place] [address] Performed By: #### 2 4323-8, 09255-8, 6-3, LIPNF #### [facility] CLIA [id number] [address] [place] [address] [place] AST [Catalytic activity/Vol] 26 U/L Normal 13-35 [facility] Comment on above: Order Comment: Speci men Type: BLOOD SPECIMEN Ordering Facility: [facility] Address: [address] [place] [address] Performed By: #### 2 4323-8, 83252-7, 6-3, LIPNF #### [facility] CLIA [id number] [address] [place] [address] [place] Bilirubin [Mass/Vol] 0.5 mg/dL Normal 0.2-1.3 [facility] Comment on above: Order Comment: Speci men Type: BLOOD SPECIMEN Ordering Facility: [facility] Address: [address] [place] [address] Performed By: #### 2 4323-8, 65760-8, 6-3, LIPNF #### [facility] CLIA [id number] [address] [place] [address] [place] Calcium [Mass/Vol] 9.1 mg/dL Normal 8.5-10.2 [facility] Comment on above: Order Comment: Speci men Type: BLOOD SPECIMEN Ordering Facility: [facility] Address: [address] [place] [address] Performed By: #### 2 4323-8, 33166-4, 6-3, LIPNF #### [facility] CLIA [id number] [address] [place] [address] [place] Chloride [Moles/Vol] 101 mmol/L Normal 98-107 [facility] Comment on above: Order Comment: Speci men Type: BLOOD SPECIMEN Ordering Facility: [facility] Address: [address] [place] [address] Performed By: #### 2 4323-8, 69287-4, 6-3, LIPNF #### [facility] CLIA [id number] [address] [place] [address] [place] CO2 [Moles/Vol] 22 mmol/L Normal 22-30 [facility] Comment on above: Order Comment: Speci men Type: BLOOD SPECIMEN Ordering Facility: [facility] Address: [address] [place] [address] Performed By: #### 2 4323-8, 10915-8, 6-3, LIPNF #### [facility] CLIA [id number] [address] [place] [address] [place] Creatinine [Mass/Vol] 0.51 mg/dL Low 0.58-0.96 [facility] Comment on above: Order Comment: Speci men Type: BLOOD SPECIMEN Ordering Facility: [facility] Address: [address] [place] [address] Performed By: #### 2 4323-8, 47076-2, 6-3, LIPNF #### [facility] CLIA [id number] [address] [place] [address] [place] Creatinine and Glomerular filtration rate.predicted panel (S/P/Bld) 89 mL/min/1.73m??? Normal >=60 [facility] Comment on above: Order Comment: [place] Type: BLOOD SPECIMEN Ordering Facility: [facility] Address: [address] [place] [address] Result Comment: Solitario mated Glomerular Filtration Rate [...] reflect actual GFR. Performed By: #### 2 4323-8, 75727-1, 3016-3, LIPNF #### [facility] CLIA [id number] [address] [place] [address] [place] Glucose [Mass/Vol] 78 mg/dL Normal 74-99 [facility] Comment on above: Order Comment: [place] Type: BLOOD SPECIMEN Ordering Facility: [facility] Address: [address] [place] [address] Result Comment: The [place] Diabetes Association (ADA) provides guidance for cutoff [...] Standards of Medical Care in Diabetes 2016, [place] Diabetes Association. Diabetes Care. 2016.39(Suppl 1). Performed By: #### 2 4323-8, 35564-7, 3016-3, LIPNF #### [facility] CLIA [id number] [address] [place] [address] [place] Potassium [Moles/Vol] 4.3 mmol/L Normal 3.7-5.1 [facility] Comment on above: Order Comment: Speci men Type: BLOOD SPECIMEN Ordering Facility: [facility] Address: [address] [place] [address] Performed By: #### 2 4323-8, 37843-1, 3016-3, LIPNF #### [facility] CLIA [id number] [address] [place] [address] [place] Protein [Mass/Vol] 6.6 g/dL Normal 6.3-8.0 [facility] Comment on above: Order Comment: Speci men Type: BLOOD SPECIMEN Ordering Facility: [facility] Address: [address] [place] [address] Performed By: #### 2 4323-8, 31271-7, 6-3, LIPNF #### [facility] CLIA [id number] [address] [place] [address] [place] Sodium [Moles/Vol] 138 mmol/L Normal 136-144 [facility] Comment on above: Order Comment: Speci men Type: BLOOD SPECIMEN Ordering Facility: [facility] Address: [address] [place] [address] Performed By: #### 2 4323-8, 19117-6, 6-3, LIPNF #### [facility] CLIA [id number] [address] [place] [address] [place] Urea nitrogen [Mass/Vol] 14 mg/dL Normal 7-21 [facility] Comment on above: Order Comment: Speci men Type: BLOOD SPECIMEN Ordering Facility: [facility] Address: [address] [place] [address] Performed By: #### 2 4323-8, 17355-6, 6-3, LIPNF #### [facility] CLIA [id number] [address] [place] [address] [place] Magnesium SerPl-mCncon 06-16 -2025 Magnesium [Mass/Vol] 2.4 mg/dL High 1.7-2.3 [facility] Comment on above: Order Comment: Speci men Type: BLOOD SPECIMEN Ordering Facility: [facility] Address: [address] [place] [address] Performed By: #### 2 4323-8, 62888-8, 3016-3, LIPNF #### [facility] CLIA [id number] [address] [place] [address] [place] NORTRIPTYLINE BLDon 05-17-20 25 NORTRIPTYLINE 19 ng/mL Low 50-150 [facility] Comment on above: Order Comment: Speci men Type: BLOOD SPECIMEN Ordering Facility: [facility] Address: [address] [place] [address] Result Comment: INTE RPRETIVE INFORMATION: Nortriptyline Therapeutic Range: 50-150 ng/mL Toxic: Greater than 500 ng/mL Toxic concentrations may cause anticholinergic effects, cardiac abnormalities and seizures. This test was developed and its performance characteristics determined by [facility]. It has not been cleared or approved by the US Food and Drug Administration. This test was performed in a CLIA certified laboratory and is intended for clinical purposes. Performed By: [email or web address] [address] [place] [id number] Senior Data Scientist: Elijah Quintanilla MD, PhD CLIA Number: [id number] Performed By: #### 2 4323-8, 33326-4, 3016-3, LIPNF #### [facility] CLIA [id number] [address] [place], [place] [id number] [place] Basic Metabolic Profile (BMP )on 05-14-2025 BUN/CRE 25.3 RATIO High 10-20 [facility] Comment on above: Performed By: #### L 100.0100, L500.2500 ####[facility] [address] [place], [address] Calcium [Mass/Vol] 9.1 mg/dL Normal 7.6-11.0 [facility] Comment on above: Performed By: #### L 100.0100, L500.2500 ####[facility] [address] [place], [address] Chloride [Moles/Vol] 101 mmol/L Normal 98-108 [facility] Comment on above: Performed By: #### L 100.0100, L500.2500 ####[facility] [address] [place], [address] CO2 [Moles/Vol] 22.1 mmol/L Normal 21.0-32.0 [facility] Comment on above: Performed By: #### L 100.0100, L500.2500 ####[facility] [address] [place], [address] Creatinine [Mass/Vol] 0.64 mg/dL Low 0.70-1.20 [facility] Comment on above: Performed By: #### L 100.0100, L500.2500 ####[facility] [address] [place], [address] ECRCL 35.97 ml/min Low 50-250 [facility] Comment on above: Performed By: #### L 100.0100, L500.2500 ####[facility] [address] [place], [address] GAP 12 Normal 5-15 [facility] Comment on above: Performed By: #### L 100.0100, L500.2500 ####[facility] [address] [place], [address] GFR/1.73 sq M.predicted among non-blacks MDRD (S/P/Bld) [Vol rate/Area] 85 mL/min/{1.73_m2} Normal >60 [facility] Comment on above: Result Comment: mL/m in/1.73m2 CKD-EPI Creatinine Equation (2020) Performed By: #### L 100.0100, L500.2500 ####[facility] [address] [place], [address] Glucose [Mass/Vol] 87 mg/dL Normal 70-99 [facility] Comment on above: Performed By: #### L 100.0100, L500.2500 ####[facility] [address] [place], [address] Potassium [Moles/Vol] 3.7 mmol/L Normal 3.3-5.1 [facility] Comment on above: Performed By: #### L 100.0100, L500.2500 ####[facility] [address] [place], [address] Sodium [Moles/Vol] 135 mmol/L Normal 133-145 [facility] Comment on above: Performed By: #### L 100.0100, L500.2500 ####[facility] [address] [place], [address] Urea nitrogen [Mass/Vol] 16 mg/dL Normal 4-19 [facility] Comment on above: Performed By: #### L 100.0100, L500.2500 ####[facility] [address] [place], [address] CBC W/Diff, Automatedon 06-1 -2024 Absolute Lymph 0.59 X10 3/uL Low 0.83-4.51 [facility] Comment on above: Performed By: #### L 100.0100, L500.2500 #### [facility] [address] [place], [address] Absolute Neut 2.7 X10 3/uL Normal 2.0-7.7 [facility] Comment on above: Performed By: #### L 100.0100, L500.2500 #### [facility] [address] [place], [address] Basophils/100 WBC (Bld) 1.1 % High 0-1 [facility] Comment on above: Performed By: #### L 100.0100, L500.2500 #### [facility] [address] [place], [address] Eosinophils/100 WBC (Bld) 7.6 % High 0-5 [facility] Comment on above: Performed By: #### L 100.0100, L500.2500 #### [facility] [address] [place], [address] Erythrocyte distribution width (RBC) [Ratio] 14.8 % High 11.6-14.6 [facility] Comment on above: Performed By: #### L 100.0100, L500.2500 #### [facility] [address] [place], [address] Hematocrit (Bld) [Volume fraction] 33.6 % Low 37-47 [facility] Comment on above: Performed By: #### L 100.0100, L500.2500 #### [facility] [address] [place], [address] Hemoglobin (Bld) [Mass/Vol] 11.3 g/dL Low 12.0-15.0 [facility] Comment on above: Performed By: #### L 100.0100, L500.2500 #### [facility] [address] [place], [address] IG% 0.700 Normal 0.0-0.9 [facility] Comment on above: Result Comment: IG% - Immature Granulocytes (promyelocytes, myelocytes and metamyelocytes) > 1% indicates that a LEFT SHIFT is Present. Performed By: #### L 100.0100, L500.2500 #### [facility] [address] [place], [address] Lymphocytes/100 WBC (Bld) 13.5 % Low 19-41 [facility] Comment on above: Performed By: #### L 100.0100, L500.2500 #### [facility] [address] [place], [address] MCH (RBC) [Entitic mass] 30.6 pg Normal 27.0-32.0 [facility] Comment on above: Performed By: #### L 100.0100, L500.2500 #### [facility] [address] [place], [address] MCHC (RBC) [Mass/Vol] 33.6 g/dL Normal 32-36 [facility] Comment on above: Performed By: #### L 100.0100, L500.2500 #### [facility] [address] [place], [address] MCV (RBC) [Entitic vol] 91.1 fL Normal 81-99 [facility] Comment on above: Performed By: #### L 100.0100, L500.2500 #### [facility] [address] [place], [address] Monocytes/100 WBC (Bld) 15.6 % High 0-10 [facility] Comment on above: Performed By: #### L 100.0100, L500.2500 #### [facility] [address] [place], [address] Neutrophils/100 WBC (Bld) 61.5 % Normal 47-70 [facility] Comment on above: Performed By: #### L 100.0100, L500.2500 #### [facility] [address] [place], [address] Nucleated RBC (Bld) [#/Vol] 0 10*3/uL Normal 0-5 [facility] Comment on above: Performed By: #### L 100.0100, L500.2500 #### [facility] [address] [place], [address] Platelet mean volume (Bld) [Entitic vol] 8.9 fL Normal 6.2-12.0 [facility] Comment on above: Performed By: #### L 100.0100, L500.2500 #### [facility] [address] [place], [address] Platelets (Bld) [#/Vol] 338 10*3/uL Normal 150-450 [facility] Comment on above: Performed By: #### L 100.0100, L500.2500 #### [facility] [address] [place], [address] RBC (Bld) [#/Vol] 3.69 10*6/uL Low 4.2-5.4 [facility] Comment on above: Performed By: #### L 100.0100, L500.2500 #### [facility] [address] [place], [address] RDW SD 49.6 fl High 35.1-43.9 [facility] Comment on above: Performed By: #### L 100.0100, L500.2500 #### [facility] [address] [place], [address] WBC (Bld) [#/Vol] 4.4 10*3/uL Normal 4.4-11.0 [facility] Comment on above: Performed By: #### L 100.0100, L500.2500 #### [facility] [address] [place], [address] CNOVon 05-14-2025 CNOV Office Visit (ENWSTR ) SACHI GRACE ([id number]) 1935 F NFR Date Time Provider Department 05/14/25 11:40 AM DASIA FUNES ENWSTR During your visit today, we recorded the following information about you: Temperature Pulse Respiration Weight 97.3 degrees 74/minute 12/minute 52.3 kg Dasia Funes MD 05/15/2025 8:33 PM Addendum [facility] Follow up visit Subjective: Sachi Grace is a 89 year old female who was here on 05/04/25 to establish care for hypothyroidism. Also has a hx of thyroid nodules - Diagnosed approximately 25 years ago. How hypothyroidism was discovered: 25 years ago - Managed by Dr. Angulo at [facility] since diagnosis. - Current medication dosage [...] No known family history of thyroid issues. Interval history: 05/14/25: I reduced the dose of LT4 on last visit, due to low normal TSH given her age Patient reports that she was told by her marketing systems analyst that her palpitations are related to thyroid, and they would not listen to her although patient tried to tell them that it is unlikely to be due to thyroid. 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 She is no longer taking these medication, and when her psychiatrist was approached about this, she was told that the tremors are unrelated to the medications mentioned as she has been off, but patient is not convinced with it, she would like to know my opinion, which is mostly the reason why she is here She reports she knew she did not have to follow up today for thyroid and when my staff offered her to coleman the appt, she wanted to have this appointment for above mentioned reason anyway She reports that her previous psychiatrist would check her serotonin levels from time to time to make sure no abnormalities REVIEW OF SYSTEMS: 10 point ROS was reviewed and negative unless indicated in the HPI ALLERGIES: ALLERGIES Allergen Reactions Vicodin [Hydrocodon* GI [...] at bedtime as needed. Dr Dupree vit A,C,Y-Jauq-Arjpwl (PRESERVISION AREDS) 7,160-113-100 igsv-su-hdec tab Take 1 tablet by mouth once [...] and cartilage, unspecified osteopenia, on actonel (Wietecha) Diverticuli (more content not included)... Normal [facility] Emergency Department Summary on 05-14-2025 Emergency Department Summary [facility] Medical Records Department [address] [place] [address] Emergency Department Summary 05/14/25 MR#: [id number] Acct: [id number] Name: SACHI GRACE Rep #: [id number] : 1935 89 From: Brian Ruvalcaba PCP: Anitra Mancera, B[facility] SORTER Status:REG ER Location: ED HPI History of Present Illness Chief Complaint: General Illness Informant: patient and spouse/S.O. Narrative Narrative: Presents with upper extremity tremors palpitations for the past month. Patient diagnosed recent pancreatic cancer followed by Dr. King. Patient only doing radiation therapy does not want to do chemo will finish a 5-day course of radiation in April 05 to . She was started on escitalopram 2.5 mg daily afterwards then was given up to 24 mg Zofran for nausea after radiation. States shortly after that started having some tremors palpitations. She has been off these for at least 3 weeks. She is also started on Creon with her pancreatic cancer which started yesterday. States was having symptoms since the medications and still has it since it stopped. She takes Klonopin at night 0.25 mg initially then takes the other half when she wakes up and it helps her tremors. She states in the morning when she takes that she is too drowsy. They have tried lorazepam also causing her drowsiness. She has tried a quarter tab of the 0.5 mg Klonopin states it does not help the symptoms. Denies cough. Denies any abdominal pain she only takes Tylenol 2 tabs every 8 hours which helps her symptoms. She saw her doctor states had thyroid screening that were negative. [facility] Medical History Costovertebral angle tenderness Anorexia Back pain RUY [...] BID 11/22/17 Unknown Hist ory mg-copper 1 ey-vhqdij-nwgsve capsule (PreserVision AREDS-2) polyethylene glycol 3350 17 [...] 8 mg PO Q12H PRN nausea and Unknown Rx tablet vomiting #30 tabs dexamethasone 0.5 mg tablet 0.5 mg PO QDAY #60 tabs 04/14/25 U nknown Rx hqmdkp-ifnwinnp-fsgmnyq 1 cap PO TID #90 caps 05/12/25 Unk nown Rx 3,000-9,500-15,000 unit capsule, delayed rel (Creon) Allergy/AdvReac Type Severity Reaction Status Date / Time cocamidopropyl betaine Allergy Intermediate Rash Verified 05/14/25 20:59 Sulfa (Sulfonamide Allergy Swelling Verified 05/14/25 20:59 Antibiotics) Environmental Allergies: AdvReac Severe NEEDS Verified 05/14/25 20:59 Uncoded (dust) FOLLOW-UP mold AdvReac Severe NEEDS Verified 05/14/25 20:59 FOLLOW-UP metoprolol AdvReac Intermediate I feel Verified 05/14/25 20:59 awful codeine AdvReac Nausea Verified 05/14/25 20:59 diphenhydramine (From AdvReac Nausea Verified 05/14/25 20:59 Benadryl) hydrocodone bitartrate (From AdvReac Nausea Verified 05/14/25 20:59 Vicodin) oxycodone HCl (From Percocet) AdvReac Nausea Verified 05/14/25 20:59 tetracycline AdvReac Nausea/Vom/ Verified 05/14/25 20:59 Diarrhea Family History Father Colon cancer CAD (coronary artery disease) Mother CAD (coronary artery disease) Sister (more content not included)... Normal [facility] 05-13-2025 [facility] Telephone (FAMPWS) SACHI GRACE ([id number]) 1935 F NFR Date Time Provider Department 05/13/25 [facility] During your visit today, we recorded the following information about you: Anitra Mancera, RIGO.[facility] 05/13/2025 5:29 PM Signed Patient saw engraver tire mold/oncologist at [facility] on May 12, 2025 Dr. Vigil for [...] differential, CMP, LDH, carbohydrate AG 19-9 Creon [id number] unit Creon 3 times daily with 1 refill Allergies As of Date: 05/13/2025 Noted Allergy Reaction VICODIN (HYDROCODONE-ACETAMINOPHE*01/2013 8 - [...] Date Reviewed: 05/04/2025 Reviewed by: Regina Boyer, RN - Fully Assessed Primary Visit Diagnosis:Pancreatic insufficiency (HCC) [K86.89] Order(s):aoqtzs-hrvlpnol-hpfk ase (CREON) 3,000-9,500- 15,000 unit delayed release capsuleTake 1 capsule by mouth three times a day with meals.Disp: 90 capsuleRfl: 5 Prescriptions as of 05/13/2025 - mohyim-qoljrwnz-nunfsmc (CREON) 3,000-9,500- 15,000 unit delayed release capsule Take 1 capsule by mouth three times a day with meals. - levothyroxine (SYNTHROID) 75 mcg tablet Take [...] 1 tablet by mouth once daily. - fluticasone propionate (ARMONAIR DIGIHALER) 232 mcg/actuation inhaler Inhale 1 Puff as instructed two times a day. - levalbuterol tartrate HFA 45 mcg/actuation inhaler Inhale 1-2 Puffs as instructed every 4 hours as needed for wheezing/shortness of breath. - clonazePAM (KLONOPIN) 0.5 mg tablet Take 0.5 mg by mouth at bedtime as needed. Dr Dupree - vit A,C,M-Jfky-Podamq (PRESERVISION AREDS) 7,160-113-100 xwps-aq-lipr tab Take 1 tablet by mouth once daily. - ACETAMINOPHEN 500 MG TAB Take 1,000 mg by mouth every 8 hours as needed for pain. Problem List As Of Date 05/13/2025 Noted Resolved Unspecified constipation [K59.00] 04/30/2006 03/16/2016 PEPTIC ULCER NOS [K27.9] 03/19/2007 GENERALIZED ANXIETY DIS [F41.1] Generalized osteoarthrosis, unspecified site [M* 12/23/2015 Myalgia and myositis [MRX4901] 05/22/2017 Diverticulosis of large intestine [K57.30] Disorder [...] 04/29/2019 Hernia of anterior abdominal wall [K43.9] more content not included)... Normal [facility] Oncology Visit Reporton 06 Oncology Visit Report [facility] [address] [place] [address]. [place] [address] OFFICE VISIT Date of Service: 05/12/25 1403 MR#: [id number] Acct: [id number] Name: SACHI GRACE Rep #: [id number] : 1935 From: Marques King MD Age/Sex: 89/F Location: [facility] Status: Signed HPI Subjective Date of Service 05/12/25 Chief Complaint F/u for Pancreatic cancer. History of Present Illness 89-year-old woman was found to have head/body pancreatic mass. Presented with abdominal pain to [place] [facility], CT of the abdomen and pelvis on 12/10/2024 showed 2.8 cm mass with ill-defined margins in the body of the pancreas. She was seen by GI on 01/01/2025 and was referred for EUS and biopsy. She had EUS and biopsy at [facility] on 02/10/2025 which showed 3.6 cm [...] of 3000 cGy in 5 fractions 04/05/25-04/09/25. Comes for follow up. Abdominal pain has resolved. Has loose stools, 6-7 times daily, loosing weight, eating well. Feels anxious. [facility] Medical History Costovertebral angle tenderness Anorexia Back pain RUY [...] you feel safe at home: Yes ROS Constitutional Constitutional: Reports systems reviewed and no addt'l complaints, except as documented Eyes Eyes: Reports systems reviewed and no addt'l complaints, except as documented ENT HEENT: Reports systems reviewed and no addt'l complaints, except as documented Cardiovascular Cardiovascular: Reports systems reviewed and no addt'l complaints, except as documented Respiratory/Chest Respiratory/Chest: Reports systems reviewed and no addt'l complaints, except as documented Gastrointestinal Gastrointestinal: Reports systems reviewed and no addt'l complaints, except as documented Genitourinary Genitourinary: Reports systems reviewed and no addt'l complaints, except as documented Musculoskeletal Musculoskeletal: Reports systems reviewed and no addt'l complaints, except as documented Integumentary Integumentary: Reports systems reviewed and no addt'l complaints, except as documented Neurologic Neurologic: Reports systems reviewed and no addt'l complaints, except as documented Psychiatric Psychiatric: Reports systems reviewed and no addt'l complaints, except as documented Endocrine Endocrinology: Reports systems reviewed and no addt'l complaints, except as documented Hematologic/Lymphatic Hematologic/Lymphatic: Reports systems reviewed and no addt'l complaints, except as documented Allergic/Immunologic Allergic/Immunologic: Reports systems reviewed and no addt'l complaints, except as documented Intake Vital Signs 03/17/25 13:29 04/14/25 10:01 05/12/25 14:05 Height 5 ft 1 in 5 ft 1 in 5 ft 1 in Weight: 52.248 kg (more content not included)... [facility] 05-11-2025 [facility] Telephone (MARY) SACHI GRACE ([id number]) 1935 F NFR Date Time Provider Department 05/11/25 ANITRA MANCERA During your visit today, we recorded the following information about you: Anitra Mancera APRN.[facility] 05/11/2025 9:07 AM Signed Patient saw pulmonary COMPRESSOR ENGINEER. She underwent a pulmonary function test: FEV1/FVC [...] Date Reviewed: 05/04/2025 Reviewed by: Regina Boyer, RN - Fully Assessed Prescriptions as of 05/11/2025 [...] bedtime as needed. Dr Dupree - vit A,C,T-Tpfb-Kezqcl (PRESERVISION AREDS) 7,160-113-100 wmlq-pt-ppkk tab Take 1 tablet by mouth once daily. - ACETAMINOPHEN 500 MG TAB Take 1,000 mg by mouth every 8 hours as needed for pain. Problem List As Of Date 05/11/2025 Noted Resolved Unspecified constipation [K59.00] 04/30/2006 03/16/2016 PEPTIC ULCER NOS [K27.9] 03/19/2007 GENERALIZED ANXIETY DIS [F41.1] Generalized osteoarthrosis, unspecified site [M* 12/23/2015 Myalgia and myositis [SFD8448] 05/22/2017 Diverticulosis of large intestine [K57.30] Disorder [...] partial surgical removal of colon [Z*10/08/2023 Diagnosed: (more content not included)... Normal [facility] Carbohydrate AG 19-9on 05-05 CA 19-9 463 U/mL High 0-35 [facility] Comment on above: Result Comment: [facility] [employer] Electrochemiluminescence Immunoassay (ECLIA) Values obtained with different assay methods or kits cannot be used interchangeably. Results cannot be interpreted as absolute evidence of the presence or absence of malignant disease. Performed at: [address] [id number] Community Development Officer: Quintin Barba PhD, Phone: [phone] Performed By: #### L 9128.0161 #### [facility] [place], [address] CNOVon 05-04-2025 CNOV Office Visit (ENWSTR ) SACHI GRACE ([id number]) 1935 F NFR Date Time Provider Department 05/04/25 10:00 AM DASIA FUNES ENWSTR During your visit today, we recorded the [...] ago - Managed by Dr. Angulo at [facility] End[facility]inology since diagnosis. - Current medication dosage [...] at bedtime as needed. Dr Joon nolasco A,C,R-Fsro-Mwkpea (PRESERVISION AREDS) 7,160-113-100 yhjn-nl-vzwo tab Take 1 tablet by mouth once [...] father Jacoby (more content not included)... Normal [facility] Urine Cultureon 04-16-2025 URC #1 Below infection l evel. PROBABLE PROTEUS SPECIES. #2 Below infection level. Gram negative laurel [place] Count <1000 Mixed Gram Positive Organisms Mixed Gram Positive Organisms MIXC Mixed contaminants. Submit a new specimen if indicated. Normal [facility] Comment on above: Performed By: #### L 3100.5020 #### [facility] [address] [place], [address] Oncology Visit Reporton 04-01 Oncology Visit Report [facility] [address] [place] [address] OFFICE VISIT Date of Service: 04/14/25 0957 MR#: [id number] Acct: [id number] Name: SACHI GRACE Lila Rep #: [id number] : 1935 From: Kendra Hahn NP COMPRESSOR ENGINEER -C Age/Sex: 89/F [facility] Status: Signed HPI Subjective Date of Service 04/14/25 Chief Complaint Acute visit- nausea History of Present Illness 89-year-old woman was found to have head/body pancreatic mass. Presented with abdominal pain to [facility], CT of the abdomen and pelvis on 12/10/2024 showed 2.8 cm mass with ill-defined margins in the body of the pancreas. She was seen by GI on 01/01/2025 and was referred for EUS and biopsy. She had EUS and biopsy at [facility] on 02/10/2025 which showed 3.6 cm [...] (Updated 04/14/25 @ 13:17 by Kendra Hahn COMPRESSOR ENGINEER, COMPRESSOR ENGINEER-C) Costovertebral angle tenderness Anorexia Back pain RUY [...] Sulfa (Sulfon (more content not included)... Normal [facility] Urinalysis, Routine (Dipstic k)on 04-14-2025 BILIRUBIN URINE Negative Normal Negative [facility] Comment on above: Order Comment: MARICEL CTOR TO SPECIFY Performed By: #### L 400.2010 ####[facility] [address] [place], [address] Clarity (U) Sl. Cloudy Normal Clear [facility] Comment on above: Order Comment: MARICEL CTOR TO SPECIFY Performed By: #### L 400.2010 ####[facility] [address] [place], [address] Color (U) Yellow Normal Yellow [facility] Comment on above: Order Comment: MARICEL CTOR TO SPECIFY Performed By: #### L 400.2010 ####[facility] [address] [place], [address] GLUCOSE, UR Normal Normal Normal [facility] Comment on above: Order Comment: MARICEL CTOR TO SPECIFY Performed By: #### L 400.2010 ####[facility] [address] [place], [address] KETONE UR 15 mg/dl Abnormal Negative [facility] Comment on above: Order Comment: MARICEL CTOR TO SPECIFY Performed By: #### L 400.2010 ####[facility] [address] [place], [address] LEUK ESTERASE Negative Normal Negative [facility] Comment on above: Order Comment: MARICEL CTOR TO SPECIFY Performed By: #### L 400.2010 ####[facility] [address] [place], [address] Nitrite Ql (U) Negative Normal Negative [facility] Comment on above: Order Comment: MARICEL CTOR TO SPECIFY Performed By: #### L 400.2010 ####[facility] [address] [place], [address] OCCULT BLOOD-UR 10 /ul Abnormal Negative [facility] Comment on above: Order Comment: MARICEL CTOR TO SPECIFY Performed By: #### L 400.2010 ####[facility] [address] [place], [address] pH UR 7.0 Normal 5.0 - 8.0 [facility] Comment on above: Order Comment: MARICEL CTOR TO SPECIFY Performed By: #### L 400.2010 ####[facility] [address] [place], [address] PROT DIPSTX 15 mg/dl Abnormal Negative [facility] Comment on above: Order Comment: MARICEL CTOR TO SPECIFY Performed By: #### L 400.2010 ####[facility] [address] [place], [address] SP.GR. DIPSTX 1.010 Normal 1.002-1.030 [facility] Comment on above: Order Comment: MARICEL CTOR TO SPECIFY Performed By: #### L 400.2010 ####[facility] [address] [place], [address] UROBILI Normal Normal Normal [facility] Comment on above: Order Comment: MARICEL CTOR TO SPECIFY Performed By: #### L 400.2010 ####[facility] [address] [place], [address] Radiation Oncology Visiton 0 04-09-2025 Radiation Oncology Visit [facility] [address] [place] [address] OFFICE VISIT Date of Service: 04/09/25 0956 MR#: [id number] Acct: [id number] Name: SACHI GRACE Rep #: [id number] : 1935 From: Andi De Luna DO Age/Sex: 89/F Location: [facility] Status: Signed End of Treatment Summary: Diagnosis: [...] ent. Sincerely, Andi De Luna DO, MS Exhibit Designer, Department of Radiation Oncology [facility] 04/09/25 1047 Date Andi Kelleyign Signature: Date (if applicable) CC: BEND SORTER Anitra Mancera; (more content not included)... Normal [facility] Radiation Oncology Visiton 0 04-07-2025 Radiation Oncology Visit [facility] [address] [place] [address] OFFICE VISIT Date of Service: 04/07/25 1039 MR#: [id number] Acct: [id number] Name: SACHI GRACE Rep #: [id number] : 1935 From: Andi De Luna DO Age/Sex: 89/F Location: [facility] Status: Signed Intake Vital Signs 03/24/25 [...] BID 11/22/17 04/07/25 His tory mg-copper 1 ni-zfvpmq-unbfeu capsule (PreserVision AREDS-2) polyethylene glycol 3350 17 17 g PO QDAY PRN Constipation /01/1904/07/25 History gram/dose oral powder (Miralax) acetaminophen 325 [...] BID 11/22/17 Unknown Hist ory mg-copper 1 md-onnnyq-jremxn capsule (PreserVision AREDS-2) polyethylene glycol 3350 17 17 g PO QDAY PRN Constipation 01/19 Unknown History gram/dose oral powder (Miralax) acetaminophen 325 mg tablet 500 mg (1.5385 x 325 mg) PO Q4H Unknown Rx PRN PRN Mild-Moderate Pain (1-10) CBD Oral (INFORMATIONAL USE 11/10/24 Unknown History [...] 8 mg disintegrat (more content not included)... [facility] 03-31-2025 [facility] Office Visit (FAMYfnWS ) SACHI GRACE ([id number]) 1935 F NFR Date Time Provider Department [...] supraventricular tachycardia (HCC) ablation 01/2002 ( in [place], [facility]), follows with Dr. Moreno (prn only) [...] at bedtime as needed. Dr Dupree vit A,C,R-Ptfd-Crkdbb (PRESERVISION AREDS) 7,160-113-100 tmuu-wp-lojc tab Take by mouth. ACETAMINOPHEN 500 MG [...] related to (more content not included)... Normal [facility] Urinalysis complete panel (U )on 03-29-2025 Bacteria LM.HPF (Urine sed) [#/Area] Negative Normal Negative [facility] Comment on above: Order Comment: Speci men Type: URINE SPECIMENOrdering Facility: [facility] Address: [address] [place] [address] Performed By: #### 2 4356-8 ####[facility] LABCLIA [id number] [place] [address] [place] Bilirubin Ql (U) Negative Normal Negative [facility] Comment on above: Order Comment: Speci men Type: URINE SPECIMENOrdering Facility: [facility] Address: [address] [place] [address] Performed By: #### 2 4356-8 ####[facility] LABCLIA [id number] [place] [address] [place] Clarity (Unsp spec) Clear Normal Clear [facility] Comment on above: Order Comment: Speci men Type: URINE SPECIMENOrdering Facility: [facility] Address: [address] [place] [address] Performed By: #### 2 4356-8 ####[facility] LABCLIA [id number] [place] [address] [place] Color (U) Yellow Normal Yellow [facility] Comment on above: Order Comment: Speci men Type: URINE SPECIMENOrdering Facility: [facility] Address: [address] [place] [address] Performed By: #### 2 4356-8 ####[facility] LABCLIA [id number] [address] [id number] [address] [place] Epithelial cells LM.HPF (Urine sed) [#/Area] None Seen Normal [facility] Comment on above: Order Comment: Speci men Type: URINE SPECIMENOrdering Facility: [facility] Address: [address] [place] [address] Performed By: #### 2 4356-8 ####[facility] LABCLIA [id number] [place] [address] [place] Glucose Test strip (U) [Mass/Vol] Negative Normal Negative [facility] Comment on above: Order Comment: Speci men Type: URINE SPECIMENOrdering Facility: [facility] Address: [address] [place] [address] Performed By: #### 2 4356-8 ####[facility] LABCLIA [id number] [place] [address] [place] Hemoglobin Ql (U) Negative Normal Negative [facility] Comment on above: Order Comment: Speci men Type: URINE SPECIMENOrdering Facility: [facility] Address: [address] [place] [address] Performed By: #### 2 4356-8 ####[facility] LABCLIA [id number] [address] [place] Hyaline casts (Urine sed) [#/Area] 0 /[LPF] Normal 0 /LPF [facility] Comment on above: Order Comment: Speci men Type: URINE SPECIMENOrdering Facility: [facility] Address: [address] [place] [address] Performed By: #### 2 4356-8 ####[facility] LABCLIA [id number] [address] [place] Ketones Ql (U) Negative Normal Negative [facility] Comment on above: Order Comment: Speci men Type: URINE SPECIMENOrdering Facility: [facility] Address: [address] [place] [address] Performed By: #### 2 4356-8 ####[facility] LABCLIA [id number] [address] [place] [address] [place] Leukocyte esterase Test strip Ql (U) Trace Abnormal Negative [facility] Comment on above: Order Comment: Speci men Type: URINE SPECIMENOrdering Facility: [facility] Address: [address] [place] [address] Performed By: #### 2 4356-8 ####[facility] LABCLIA [id number] [place] [address] [place] Nitrite Ql (U) Negative Normal Negative [facility] Comment on above: Order Comment: Speci men Type: URINE SPECIMENOrdering Facility: [facility] Address: [address] [place] [address] Performed By: #### 2 4356-8 ####[facility] LABCLIA [id number] [place] [address] [place] pH (U) 6.5 [pH] Normal <8.5 [facility] Comment on above: Order Comment: Speci men Type: URINE SPECIMENOrdering Facility: [facility] Address: [address] [place] [address] Performed By: #### 2 4356-8 ####[facility] LABCLIA [id number] [place] [address] [place] Protein (U) [Mass/Vol] Negative Normal Negative [facility] Comment on above: Order Comment: Speci men Type: URINE SPECIMENOrdering Facility: [facility] Address: [address] [place] [address] Performed By: #### 2 4356-8 ####[facility] LABCLIA [id number] [place] [address] [place] RBC LM.HPF (Urine sed) [#/Area] 0-2 /HPF Normal 0-2 /HPF [facility] Comment on above: Order Comment: Speci men Type: URINE SPECIMENOrdering Facility: [facility] Address: [address] [place] [address] Performed By: #### 2 4356-8 ####[facility] [id number] [place] [address] [place] Specific gravity (U) [Rel density] 1.013 Normal 1.005-1.030 [facility] Comment on above: Order Comment: Speci men Type: URINE SPECIMENOrdering Facility: [facility] Address: [address] [place] [address] Performed By: #### 2 4356-8 ####[facility] [id number] [place] [id number] [place] Urobilinogen Ql (U) 1.0 EU/dL Normal 0.2-1.0 EU/dL [facility] Comment on above: Order Comment: Speci men Type: URINE SPECIMENOrdering Facility: [facility] Address: [address] [place] [address] Performed By: #### 2 4356-8 ####[facility] [id number] [place] [id number] [place] WBC LM.HPF (Urine sed) [#/Area] 0-5 /HPF Normal 0-5 /HPF [facility] Comment on above: Order Comment: Speci men Type: URINE SPECIMENOrdering Facility: [facility] Address: [address] [place] [address] Performed By: #### 2 4356-8 ####[facility] [id number] [place] [address] [place] Radiation Oncology Visiton 0 03-24-2025 Radiation Oncology Visit [facility] [address] [facility] [place] [address] OFFICE VISIT Date of Service: 03/24/25 1300 MR#: [id number] Acct: [id number] Name: SACHI GRACE Rep #: [id number] : 1935 From: Andi De Luna DO Age/Sex: 89/F Location: [facility] Status: Signed Intake Vital Signs 03/17/25 13:29 [...] BID 11/22/17 03/24/25 His tory mg-copper 1 ay-ysqhvm-bkdxxp capsule (PreserVision AREDS-2) polyethylene glycol 3350 17 [...] BID 11/22/17 Unknown Hist ory mg-copper 1 ve-xngklz-dsdsvt capsule (PreserVision AREDS-2) polyethylene glycol 3350 17 [...] Unknown R (more content not included)... Normal [facility] PATH SENDOUT (SENDOUT)o n 03-22-2025 [facility] MISCELLANEOUS LAB TEST RESULT Normal [facility] Comment on above: Result Comment: KARIN Esquivel COMMENTS: CPT Codes: K86.9; K86.89 Results are attached to pathology report, case # [id number], and scanned into Paramedical Aide. Performed By: #### L [id number] ####Education General Manager: ARIEL MARY ([phone])[address] CNOVon 03-18-2025 CNOV Office Visit (FAMPWS ) SACHI GRACE ([id number]) 1935 F NFR Date Time Provider Department 03/18/25 2:20 PM DAWIT PHELAN During your visit today, we recorded the following information about you: Pulse Blood pressure Weight 88/minute 124/78 55 kg Dawit Phelan APRN.TARGET WORKER 03/18/2025 2:41 PM Signed Chief Complaint Patient [...] supraventricular tachycardia (HCC) ablation 01/2002 ( in [place], [facility]), follows with Dr. Moreno (prn only) [...] FLX DX W/COLLJ SPEC WHEN PFRMD 10/14/2018 [facility]-RYuly Meyersbul-Repeat 5 years COLONOSCOPY SCREENING 11/15/2023 R Cebul no repeat due to age CORRECT BUNION,SIMPLE left ECHOCARDIOGRAM 10/18/2017 EGD 1985 bleeding ulcer EPS: SVT/VT ABLATION 2001 [facility] ESOPHAGOGASTRODUODENOSCOPY TRANSORAL DIAGNOSTIC 03/24/2018 EGD HERNIA REPAIR HX 09/2020 ventral hernia repair HOLTER 24 HR 10/2017 LOOP RECORDER IMPLANT 01/23/2018 NASAL/SINUS ENDOSCOPY WITH SPHENOIDOTOMY Bilateral 05/15/2019 Dr. Ruffin NASAL/SINUS ENDOSCPY W/MAXILL ANTROSTOMY Bilateral 05/15/2019 Dr. Ruffin NASAL/SINUS ENDOSCPY W/TOTAL ETHMOIDECTOMY Bilateral 05/15/2019 Dr. Ruffin OPEN REPAIR OF ROTATOR CUFF ACUTE 04/2005 Dr. Mejias PAST SURGICAL HISTORY OF 10/1997 partial colectomy ([place], [facility]) PAST SURGICAL HISTORY OF 2011 nerves cut in my back STEREO LOC FOR CORE BRST BX LT 04/24/2010 left STRESS TEST 12/17/2017 TONSILLECTOMY PRIMARY/SECONDARY Family History FAMILY HISTORY Problem Relation Age of Onset Heart Mother rheumatic; 73 Colon Cancer Father dx'd age 50's Coronary Artery Disease Father age 40s, CABG (among the first done at in [place]) Stroke Sister at 58 of ruptured aneurysm [...] D) 25 (more content not included)... Normal [facility] ([id number]) 1935 F NFR Date Time Provider Department 03/18/25 [facility] During your visit today, we recorded the following information about you: Anitra Mancera, GENERAL SURGEON.[facility] 03/18/2025 2:43 PM Signed Patient was seen by hematology for pancreatic mass. Presented with abdominal pain to [facility], CT of the abdomen and pelvis done December 10, 2024 showed 2.8 cm mass ill-defined margins in the body of the pancreas. She was seen by GI on January 01, 2025 and referred for EUS and biopsy. That was done at [facility] on February 10, 2025 showed a [...] bedtime as needed. Dr Dupree - vit A,C,X-Epbu-Ijrvsv (PRESERVISION AREDS) 7,160-113-100 ehgk-of-oxdp tab Take by mouth. - ACETAMINOPHEN 500 MG TAB Take one(1) tablet every four(4) to six(6) hours as needed for pain. Problem List As Of Date 03/18/2025 Noted Resolved Unspecified constipation [K59.00] 04/30/2006 03/16/2016 PEPTIC ULCER NOS [K27.9] 03/19/2007 GENERALIZED ANXIETY DIS [F41.1] Generalized osteoarthrosis, unspecified site [M* 12/23/2015 Myalgia and myositis [CUC3878] 05/22/2017 Diverticulosis of large intestine [K57.30] Disorder [...] knee replacement, total [Z96.659] 12/23/2015 [facility] [R43.2] 02/23/201605/22/ (more content not included)... Normal [facility] Comprehensive metabolic 2000 panelon 03-18-2025 Albumin [Mass/Vol] 4.2 g/dL Normal 3.9-4.9 [facility] Comment on above: Order Comment: Speci men Type: BLOOD SPECIMEN [facility] Facility: [facility] Address: [address] [place] [address] Performed By: #### 1 9123-9, 06586-5 #### [facility] CLIA [id number] [address] [place] [address] [place] ALP [Catalytic activity/Vol] 78 U/L Normal 34-123 [facility] Comment on above: Order Comment: Speci men Type: BLOOD SPECIMEN [facility] Facility: [facility] Address: [address] [place] [address] Performed By: #### 1 9123-9, 64740-8 #### [facility] CLIA [id number] [address] [place] [address] [place] ALT [Catalytic activity/Vol] 21 U/L Normal 7-38 [facility] Comment on above: Order Comment: Speci men Type: BLOOD SPECIMEN [facility]: [facility] Address: [address] [place] [address] Performed By: #### 1 9123-9, 84059-6 #### [facility] CLIA [id number] [address] [place], [place] [address] [place] Anion gap [Moles/Vol] 11 mmol/L Normal 8-15 [facility] Comment on above: Order Comment: Speci men Type: BLOOD SPECIMEN [facility] Facility: [facility] Address: [address] [place] [address] Performed By: #### 1 9123-9, 51127-2 #### [facility] CLIA [id number] [address] [place] [address] [place] AST [Catalytic activity/Vol] 29 U/L Normal 13-35 [facility] Comment on above: Order Comment: Speci men Type: BLOOD SPECIMEN [facility] Facility: [facility] Address: [address] [place] [address] Performed By: #### 1 9123-9, 44045-3 #### [facility] CLIA [id number] [address] [place] [address] [place] Bilirubin [Mass/Vol] 0.4 mg/dL Normal 0.2-1.3 [facility] Comment on above: Order Comment: Speci men Type: BLOOD SPECIMEN [facility] Facility: [facility] Address: [address] [place] [address] Performed By: #### 1 9123-9, 76290-9 #### [facility] CLIA [id number] [address] [place] [address] [place] Calcium [Mass/Vol] 9.8 mg/dL Normal 8.5-10.2 [facility] Comment on above: Order Comment: Speci men Type: BLOOD SPECIMEN [facility] Facility: [facility] Address: [address] [place] [address] Performed By: #### 1 9123-9, #### [facility] CLIA [id number] [address] [place] [address] [place] Chloride [Moles/Vol] 96 mmol/L Low 98-107 [facility] Comment on above: Order Comment: Speci men Type: BLOOD SPECIMEN [facility] Facility: [facility] Address: [address] [place] [address] Performed By: #### 1 9123-9, 26350-3 #### [facility] CLIA [id number] [address] [place] [address] [place] CO2 [Moles/Vol] 27 mmol/L Normal 22-30 [facility] Comment on above: Order Comment: Speci men Type: BLOOD SPECIMEN Ordering Facility: [facility] Address: [address] [place] [address] Performed By: #### 1 9123-9, 76161-0 #### [facility] CLIA [id number] [address] [place] [address] [place] Creatinine [Mass/Vol] 0.59 mg/dL Normal 0.58-0.96 [facility] Comment on above: Order Comment: Pearl men Type: BLOOD SPECIMEN [facility] Facility: [facility] Address: [address] [place] [address] Performed By: #### 1 9123-9, 54830-1 #### [facility] [place] [id number] [address] [place] [address] [place] Creatinine and Glomerular filtration rate.predicted panel (S/P/Bld) 86 mL/min/1.73m??? Normal >=60 [facility] Comment on above: Order Comment: Pearl [place] Type: BLOOD SPECIMEN Order[facility] Facility: [facility] Address: [address] [place] [address] Result Comment: Solitario mated Glomerular Filtration Rate [...] actual GFR. Performed By: #### 1 9123-9, #### [facility] CLIA [id number] [address] [place] [address] [place] Glucose [Mass/Vol] 94 mg/dL Normal 74-99 [facility] Comment on above: Order Comment: Pearl [place] Type: BLOOD SPECIMEN Ordering Facility: [facility] Address: [address] [place] [address] Result Comment: The [place] Diabetes Association (ADA) provides guidance for cutoff [...] Standards of Medical Care in Diabetes 2016, [place] Diabetes Association. Diabetes Care. 2016.39(Suppl 1). Performed By: #### 1 9123-9, #### [facility] CLIA [id number] [address] [place] [address] [place] Potassium [Moles/Vol] 4.6 mmol/L Normal 3.7-5.1 [facility] [place] Comment on above: Order Comment: Pearl colorado Type: BLOOD SPECIMEN Ordering Facility: [facility] Address: [address] [place] [address] Performed By: #### 1 239, #### [facility] CLIA [id number] [address] [place] [address] [place] Protein [Mass/Vol] 6.8 g/dL Normal 6.3-8.0 [facility] Comment on above: Order Comment: Pearl colorado Type: BLOOD SPECIMEN Ordering Facility: [facility] Address: [address] [place] [address] Performed By: #### 1 239, #### [facility] CLIA [id number] [address] [place] [address] [place] Sodium [Moles/Vol] 134 mmol/L Low 136-144 [facility] Comment on above: Order Comment: Kathyai stanislav Type: BLOOD SPECIMEN Ordering Facility: [facility] Address: [address] [place] [address] Performed By: #### 1 9123-9, 81422-5 #### [facility] CLIA [id number] [address] [place] [address] [place] Urea nitrogen [Mass/Vol] 15 mg/dL Normal 7-21 [facility] Comment on above: Order Comment: Speci men Type: BLOOD SPECIMEN Ordering Facility: [facility] Address: [address] [place] [address] Performed By: #### 1 9123-9, 08658-9 #### [facility] CLIA [id number] [address] [place] [address] [place] Magnesium SerPl-mCncon 03-18 Magnesium [Mass/Vol] 2.2 mg/dL Normal 1.7-2.3 [facility] Comment on above: Order Comment: Speci men Type: BLOOD SPECIMEN Ordering Facility: [facility] Address: [address] [place] [address] Performed By: #### 1 9123-9, 23857-7 #### [facility] CLIA [id number] [address] [place] [address] [place] NATERAon 03-17-2025 NATURA SEE SCANNED REPORT Normal [facility] Comment on above: Performed By: #### L 3100.5020 #### [facility] [address] [place], [address] Oncology Visit Reporton 03-02 Oncology Visit Report [facility] [address] [place] [address] OFFICE VISIT Date of Service: 03/17/25 1329 MR#: [id number] Acct: [id number] Name: SACHI GRACE Rep #: [id number] : 1935 From: Marques King MD Age/Sex: 89/F Location: [facility] Status: Signed HPI Subjective Date of Service 03/17/25 Chief Complaint F/u for Pancreatic cancer. History of Present Illness 89-year-old woman was found to have head/body pancreatic mass. Presented with abdominal pain to [place] [facility], CT of the abdomen and pelvis on 12/10/2024 showed 2.8 cm mass with ill-defined margins in the body of the pancreas. She was seen by GI on 01/01/2025 and was referred for EUS and biopsy. She had EUS and biopsy at [facility] on 02/10/2025 which showed 3.6 cm [...] mcg/actuation 1 puff inhalation Q4H PRN PRN /03/17/25 History aerosol inhaler Wheezing vit C 250 mg-vit E 90 mg-zinc 40 1 tab PO BID 11/22/17 03/17/25 His tory mg-copper 1 ys-yijxrc-rznyvv capsule (PreserVision AREDS-2) polyethylene glycol 3350 17 17 g PO QDAY PRN Constipation 03/0 18 03/17/25 History gram/dose oral powder (Miralax) acetaminophen 325 mg tablet 500 mg (1.5385 x 325 mg) PO Q4H /03/17 (more content not included)... Normal [facility] 37on 03-16-2025 37 -Patient nauseated, pain, anxiety, [...] with Dr. King -follow up as needed [facility] 03-16-2025 CNPN Telephone (FAMPWS) SACHI GRACE ([id number]) 1935 F NFR Date Time Provider Department 03/16/25 ANITRA MANCERA During your visit today, we [...] has additional advise. YARY Patel Jacqueline A, APRN.[facility] 03/16/2025 2:56 PM Signed There was no [...] advise or recommendations. SABRINA Wan Jacqueline A, APRN.CNP 03/16/2025 3:45 PM Signed Sounds like abdominal bloating. I know that she has had some of that with the pancreatic cancer. If she develops vomiting or pain is extremely uncomfortable, go to the emergency room. She was to see surgeon today. Wondering how that went or what they recommended? Zulma Ji MA 03/16/2025 5:22 PM Signed Spoke with patient and relayed provider message. She verbalizes understanding. Surgeon said she needs 3 month of chemo before she can have surgery. She sees oncologist tomorrow. Zulma Ji MA March 16, 2025 5:22 PM Allergies [...] Upset Date Reviewed: 03/15/2025 Reviewed by: Zulma Ji MA - Fully Assessed Reason for Visit: [...] bedtime as needed. Dr Dupree - vit A,C,S-Wzoc-Sxfmtd (PRESERVISION AREDS) 7,160-113-100 xelf-zr-sirk tab Take by mouth. - ACETAMINOPHEN 500 MG TAB Take one(1) tablet every four(4) to six(6) hours as needed for pain. Problem List As Of Date 03/16/2025 Noted Resolved Unspecified constipation [K59.00] 04/30/2006 03/16/2016 PEPTIC ULCER NOS [K27.9] 03/19/2007 GENERALIZED ANXIETY DIS [F41.1] Generalized osteoarthrosis, unspecified site [M* 12/23/2015 Myalgia and myositis [WAR8949] 05/22/2017 Diverticulosi (more content not included)... Normal [facility] Office Visiton 03-16-2025 Follow-up visit [id number] Dariana Grace 1935 F Date Provider Department Center 03/16/2025 [id number], AMIT SH[facility] ACH HEP None No family history on file Level of Service:74327 NM OFFICE/OUTPATIENT NEW MODERATE MDM 45 MINUTES Reason for Visit and Comments: New Patient [542] - Evaluation of malignant neoplasm of head of pancreas, Pet Imaging pushed to [facility]-Referred (Dr. King) [facility] Progress Noteon 03-16-2025 Progress Note [...] Will be seeing Dr King tomorrow in [place]. Encouraged to get care there since it [...] and they were also given contact information. Normal [facility] CNOVon 03-15-2025 CNOV Office Visit (FAMPWS ) SACHI GRACE ([id number]) 1935 F NFR Date Time Provider Department 03/15/25 10:20 AM ANITRA MANCERA FAMPWS During your visit today, we recorded the following information about you: Temperature Pulse Blood pressure Weight 98.5 degrees 94/minute 104/58 54 kg Anitra Mancera APRN.RUSTY 03/15/2025 10:41 AM Addendum This is a [...] supraventricular tachycardia (HCC) ablation 01/2002 ( in [facility]), follows with Dr. Moreno (prn only) [...] 1985 bleeding ulcer EPS: SVT/VT ABLATION 2001 [facility] ESOPHAGOGASTRODUODENOSCOPY TRANSORAL DIAGNOSTIC 03/24/2018 EGD HERNIA REPAIR HX 09/2020 ventral hernia repair HOLTER 24 HR 10/2017 LOOP RECORDER IMPLANT 01/23/2018 NASAL/SINUS ENDOSCOPY WITH SPHENOIDOTOMY Bilateral 05/15/2019 Dr. Ruffin NASAL/SINUS ENDOSCPY W/MAXILL ANTROSTOMY Bilateral 05/15/2019 Dr. Ruffin NASAL/SINUS ENDOSCPY W/TOTAL ETHMOIDECTOMY Bilateral 05/15/2019 Dr. Ruffin OPEN REPAIR OF ROTATOR CUFF ACUTE 04/2005 Dr. Mejias PAST SURGICAL HISTORY OF 10/1997 partial colectomy ([place], [facility]) PAST SURGICAL HISTORY OF 2011 nerves [...] mouth at bedtime as needed. Dr Joon Avery,Ann,T-Rjde-Lfegii (PRESERVISION AREDS) 7,160-113-100 hanu-cq-fqjg tab Take by mouth. ACETAMINOPHEN 500 MG TAB Take one(1) tablet every four(4) to six(6) hours as needed for pain. No current facility-administered medications for this visit. FAMILY HISTORY Problem Relation Age of Onset Heart Mother rheumatic; 73 Colon Cancer Father dx'd age 50's Coronary Artery Disease Father age 40s, CABG (among the first done at in [place]) Stroke Sister di (more content not included)... Normal [facility] CNOV Office Visit (WSTR ) SACHI GRACE ([id number]) 1935 F NFR Date Time Provider Department 03/15/25 9:45 AM [facility] During your visit today, we recorded the following information about you: Nathalia Jay APRN.TARGET WORKER 03/15/2025 9:41 AM Signed Patient came in [...] Upset Date Reviewed: 12/18/2024 Reviewed by: Zulma Ji MA - Fully Assessed Primary Visit Diagnosis:Anxious [...] bedtime as needed. Dr Dupree - vit A,C,C-Lnts-Lcavku (PRESERVISION AREDS) 7,160-113-100 mcnv-yn-verv tab Take by mouth. - ACETAMINOPHEN 500 MG TAB Take one(1) tablet every four(4) to six(6) hours as needed for pain. Problem List As Of Date 03/15/2025 Noted Resolved Unspecified constipation [K59.00] 04/30/2006 03/16/2016 PEPTIC ULCER NOS [K27.9] 03/19/2007 GENERALIZED ANXIETY DIS [F41.1] Generalized osteoarthrosis, unspecified site [M* 12/23/2015 Myalgia and myositis [VWF6327] 05/22/2017 Diverticulosis of large intestine [K57.30] Disorder [...] spondylosis witho (more content not included)... Normal [facility] UA DIP, URINE (POC)on 2024 BILIRUBIN UA (POCT) Negative Negative [facility] CLARITY UA (POCT) Clear [facility] COLOR UA (POCT) Yellow [facility] GLUCOSE UA (POCT) Negative Negative mg/dL [facility] Hemoglobin Ql (U) Negative Negative [facility] Interpretation and review of laboratory results Abnormal [facility] KETONE UA (POCT) Negative Negative mg/dL [facility] LEUKOCYTES UA (POCT) Small Abnormal Negative [facility] NITRITE UA (POCT) Negative Negative [facility] PH UA (POCT) 6 4.5 - 8.0 [facility] Protein Ql (U) 30 mg/dL Abnormal Negative [facility] SPECIFIC GRAVITY UA (POCT) 1.015 1.005 - 1.030 [facility] UROBILINOGEN UA (POCT) 0.2 Normal E.U./dL [facility] Location:[facility] [place] [facility], [address] [place] [address], [place], [address] [facility] POINT OF CARE [facility] 36on 03-09-2025 36 Message received req uesting a sooner appointment with Dr. Troncoso. Appointment moved up to 03/16/25 @ 10:30 am. New appointment date & time provided to the patient, verbalizes understanding. 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 Normal [facility] Oncology Visit Reporton 04-0 3-2025 Oncology Visit Report [facility] [address] [place] [address] OFFICE VISIT Date of Service: 03/04/25 0938 MR#: [id number] Acct: [id number] Name: SACHI GRACE Rep #: [id number] : 1935 From: Marques King MD Age/Sex: 89/F Location: [facility] Status: Signed HPI Subjective Date of Service 03/04/25 Chief Complaint Referred for Pancreatic cancer. History of Present Illness 89-year-old woman was found to have head/body pancreatic mass. Presented with abdominal pain to [place] [facility], CT of the abdomen and pelvis on 12/10/2024 showed 2.8 cm mass with ill-defined margins in the body of the pancreas. She was seen by GI on 01/01/2025 and was referred for EUS and biopsy. She had EUS and biopsy at [facility] on 02/10/2025 which showed 3.6 cm [...] BID 11/22/17 03/04/25 His tory mg-copper 1 qq-yxkdci-eyvgbr capsule (PreserVision AREDS-2) polyethylene glycol 3350 17 17 g PO QDAY PRN Constipation 01/1903/04/25 History gram/dose oral powder (Miralax) acetaminophen 325 mg tablet 500 mg (1.5385 x 325 mg) PO Q4H 03/04/25 Rx PRN PRN Mild-Moderate Pain (1-04/10) CBD Oral (INFORMATIONAL USE 11/10/24 03/04/25 History ONLY-PT USES ORAL CBD) nortriptyline 10 mg capsule 10 mg PO BID #120 caps 01/02 (more content not included)... Normal [facility] MR/BMS.BPon 03-03-2025 MR/BMS.BP [address], [address] [place] [address] OFFICE VISIT Date of Service: 03/03/25 MR#: [id number] Acct: [id number] Name: SACHI GRACE Rep #: [id number] : 1935 Provider: Dr. Hugh Moss se, DO Age/Sex: 89/F Location: [facility].BP Status: Signed Intake Vital Signs 02/24/25 08:41 [...] BID 11/22/17 03/03/25 His tory mg-copper 1 gu-xmrbns-pveqvp capsule (PreserVision AREDS-2) polyethylene glycol 3350 17 17 g PO QDAY PRN Constipation 03/01/1903/03/25 History gram/dose oral powder (Miralax) acetaminophen 325 [...] with cancer. (more content not included)... Normal [facility] PET/CT Tumor Base -Thigh Ini casimiro 03-02-2025 [facility] [address] [place] [address] PET/CT Tumor Base -Thigh Init MR#: [id number] Acct: [id number] Name: SACHI GRACE Rep #: [id number] : 1935 F 89 From: Subhash Hwang DO PCP: Anitra Mancera, BEND SORTER Status: REG RCR Study: PET/CT Tumor Base -Thigh Init Date of Exam: Exam# [id number] Ordering Dr: Marques King MD EXAM: PET-CT [...] of 3 hypermetabolic thyroid nodules Reading Location: [facility] CC: BEND SORTER Anitra Mancera; Dr. Marques King MD Security Nurse: Signed Normal [facility] Carbohydrate AG 19-9on 02-25 CA 19-9 602 U/mL High 0-35 [facility] Comment on above: Result Comment: [email or web address] Electrochemiluminescence Immunoassay (ECLIA) Values obtained with different assay methods or kits cannot be used interchangeably. Results cannot be interpreted as absolute evidence of the presence or absence of malignant disease. Performed at: [address] [id number] Community Development Officer: Quintin Barba PhD, Phone: [phone] Performed By: #### L 3100.5020 ####[facility] [address] [place], [place], [address] 36on 02-24-[address] Lagunas ' office phoned regarding patient. Dr. King would like to discuss patient with you today. Could you please call him @ [phone]. Press option 2 and someone will come and get him. Patient had an EUS by Dr. Franco on 02/10/2025/FNA path positive ductal adenocarcinoma Normal [facility] [address] Dr. King would like to speak with you regarding this patient. Can you please call him @ [phone] press option 2 and someone will get him. Patient had EUS by Dr. Franco on 02/10/2025 Normal [facility] Oncology Visit Reporton 01-31 Oncology Visit Report [facility] [address] [place] [address] OFFICE VISIT Date of Service: 02/24/25 0833 MR#: [id number] Acct: [id number] Name: SACHI GRACE Lila Rep #: [id number] : 1935 From: Marques King MD Age/Sex: 89/F Location: [facility] Status: Signed HPI Subjective Date of Service 02/24/25 Chief Complaint Referred for Pancreatic cancer. History of Present Illness 89-year-old woman was found to have head/body pancreatic mass. Presented with abdominal pain to [place] [facility], CT of the abdomen and pelvis on 12/10/2024 showed 2.8 cm mass with ill-defined margins in the body of the pancreas. She was seen by GI on 01/01/2025 and was referred for EUS and biopsy. She had EUS and biopsy at [facility] on 02/10/2025 which showed 3.6 cm [...] BID 11/22/17 02/24/25 His tory mg-copper 1 wc-kjdzbw-rpxwvo capsule (PreserVision AREDS-2) polyethylene glycol 3350 17 17 g PO QDAY PRN Constipation /01/1902/24/25 History gram/dose oral powder (Miralax) acetaminophen 325 mg tablet 500 mg (1.5385 x 325 mg) PO Q4H 02/24/25 Rx PRN PRN Mild-Moderate Pain (1-5/10) CBD Oral (INFORMATIONAL USE 11/10/24 01/01/25 History ONLY-PT USES O (more content not included)... Normal [facility] CNPNon 02-15-2025 CNPN Telephone (FAMPWS) SACHI GRACE ([id number]) 1935 F NFR Date Time Provider Department 02/15/25 ANITRA MANCERA FAMPWS During your visit today, we recorded the following information about you: Zulma Ji MA 02/15/2025 9:54 AM Signed PCP was asking for update on patient about GI consult. Spoke with patient, she had biopsy done at [facility]. She said she has pancreatic cancer. She is going to see [facility] oncology office. They are waiting for final pathology results to make her appointment. Zulma Ji MA February 15, 2025 9:54 AM Allergies [...] Upset Date Reviewed: 12/18/2024 Reviewed by: Zulma Ji MA - Fully Assessed Reason for Visit: [...] bedtime as needed. Dr Dupree - vit A,C,E-Gsyk-Ymexbk (PRESERVISION AREDS) 7,160-113-100 jhao-po-ojag tab Take by mouth. - ACETAMINOPHEN 500 MG TAB Take one(1) tablet every four(4) to six(6) hours as needed for pain. Problem List As Of Date 02/15/2025 Noted Resolved Unspecified constipation [K59.00] 04/30/2006 03/16/2016 PEPTIC ULCER NOS [K27.9] 03/19/2007 GENERALIZED ANXIETY DIS [F41.1] Generalized osteoarthrosis, unspecified site [M* 12/23/2015 Myalgia and myositis [KNE9598] 05/22/2017 Diverticulosis of large intestine [K57.30] Disorder [...] [M19.079] 07/20/2014 (more content not included)... Normal [facility] 29on 02-10-2025 29 Addendum created 11/25 1333 by RIGO Mora CRNA Clinical Note Signed Normal [facility] T4 Free SerPl-ncon 01-26-2 025 Free T4 [Mass/Vol] 1.5 ng/dL Normal 0.9-1.7 [facility] Comment on above: Order Comment: Pearl colorado Type: BLOOD SPECIMENOrdering Facility: [facility] Address: [facility] [place] [address] Performed By: #### 3 024-7, 3016-3 ####[facility] LABORATORYCLIA [id number] [place] [address] [place] TSH SerPl-aCncon 01-26-2025 TSH Qn 0.871 m[IU]/L Normal 0.270-4.200 [facility] Comment on above: Order Comment: Pearl colorado Type: BLOOD SPECIMENOrdering Facility: [facility] Address: [facility] [place] [address] Performed By: #### 3 024-7, 3016-3 ####[facility] LABORATORYCLIA [id number] [place] [address] [place] CNPNon 01-21-2025 CNPN Telephone (4CQ) SACHI GRACE ([id number]) 1935 F NFR Date Time Provider Department 01/21/25 ANITRA MANCERA 4CQ During your visit today, we recorded the following information about you: Madhav Morales Halima 01/21/2025 4:10 PM Signed Patient is calling stating she seen [facility] and they are stating patient is to call PCP office for additional testing and they was to fax notes to our office. Please advise patient Zulma Ji MA 01/21/2025 4:55 PM Signed Office did not receive records from GI Zulma Ji MA January 21, 2025 4:55 PM Alix Garcia, RN 01/22/2025 4:19 PM Signed Pt called in asking about MRI results. I let her know providers office has not received them yet. She states they told her they have sent them twice. She states she will call them to send them again. Zulma Ji MA 01/22/2025 5:12 PM Signed MRI results scanned Anitra Mancera, GENERAL SURGEON.TARGET WORKER 01/22/2025 5:25 PM Signed MRI results reviewed with her. Concerning cyst and solid- possible cancer. [facility] referring her to somewhere in [place]. Appreciates call. Allergies As of Date: 01/21/2025 [...] Upset Date Reviewed: 12/18/2024 Reviewed by: Zulma Ji MA - Fully Assessed Reason for Visit: Patient Question [1477] Prescriptions as of 01/22/2025 - Vit B [...] bedtime as needed. Dr Dupree - vit A,C,X-Gvnh-Cfdqzu (PRESERVISION AREDS) 7,160-113-100 siwj-mp-tyro tab Take by mouth. - ACETAMINOPHEN 500 MG TAB Take one(1) tablet every four(4) to six(6) hours as needed for pain. Problem List As Of Date 01/21/2025 Noted Resolved Unspecified constipation [K59.00] 04/30/2006 03/16/2016 PEPTIC ULCER NOS [K27.9] 03/19/2007 GENERALIZED ANXIETY DIS [F41.1] Generalized osteoarthrosis, unspecified site [M* 12/23/2015 Myalgia and myositis [CXK6337] 05/22/2017 Diverticulosis of large intestine [K57.30] Disorder [...] of appendect (more content not included)... Normal [facility] MRI ABDOMEN WO/W IVCONon MRI ABDOMEN WO/W IVCON * * *Final Report* * * DATE OF EXAM: Jan 15 2025 9:35AM WRM 0689 - MRI ABDOMEN WO/W IVCON / [...] 2. No metastatic disease in the abdomen. Security Nurse: BINTA Transcribe Date/Time: Jan 21 2025 10:12A Dictated by : SILVIO ROBLES MD This examination was interpreted and the report reviewed and electronically signed by: SILIVO ROBLES MD on Jan 21 2025 10:33AM EST [id number] Normal [facility] Telephone (FAMWS) SCHUYLERSACHI ([id number]) 1935 F NFR Date Time Provider Department 01/14/25 [facility] During your visit today, we recorded [...] Upset Date Reviewed: 12/18/2024 Reviewed by: Zulma Ji MA - Fully Assessed Reason for Visit: [...] bedtime as needed. Dr Dupree - vit A,C,P-Dfgb-Ztekhr (PRESERVISION AREDS) 7,160-113-100 zouk-wg-ykrz tab Take by mouth. - ACETAMINOPHEN 500 MG TAB Take one(1) tablet every four(4) to six(6) hours as needed for pain. Problem List As Of Date 01/14/2025 Noted Resolved Unspecified constipation [K59.00] 04/30/2006 03/16/2016 PEPTIC ULCER NOS [K27.9] 03/19/2007 GENERALIZED ANXIETY DIS [F41.1] Generalized osteoarthrosis, unspecified site [M* 12/23/2015 Myalgia and myositis [PVB2010] 05/22/2017 Diverticulosis of large intestine [K57.30] Disorder [...] Sprain of (more content not included)... Normal [facility] Gastroenterology Visit Repor ton 01-01-2025 Gastroenterology Visit Report [facility] [address] [place] [address] OFFICE VISIT Date of Service: 01/01/25 MR#: [id number] Acct: [id number] Name: SCHUYLERSACHI Lila Rep #: [id number] : 1935 Provider: JOSE Wesley Age/Sex: 89/F Location: [facility] Status: Signed Intake Vital Signs 12/10/24 19:34 [...] BID 11/22/17 01/01/25 His tory mg-copper 1 co-fhpsho-skuvmc capsule (PreserVision AREDS-2) polyethylene glycol 3350 17 [...] to the office today for establishment with [facility] ED 1..25 w/ complaints of aching upper abd pain. Recently finished tx for H.pylori infection. Endorses some constipation. 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 Pt is aware and prior MRI showed this as well. GI cocktail given and discharged. CT abd/pelvis 1.9.25; 1. Pancreatic atrophy and pancreatic ductal dilatation. In the body of the pancreas, there is a 2.8 cm cystic lesion with ill-defined margins. ACR White Paper guidelines (Joe et al. JACR 2017; 14(7):911-923) suggest endoscopic ultrasound with fine needle aspiration and surgical consultation. 2. Moderate to large amount of colorectal stool retention. 3. Centrilobular emphys (more content not included)... Normal [facility] CNNURSEon 12-30-2024 [facility] (FAMPWS) SACHI GRACE ([id number]) 1935 F NFR Date Time Provider Department 12/30/24 9:45 AM [place] NURSE MARY During your visit today, we recorded the following information about you: Arcelia Vu LPN 12/30/2024 10:18 AM Signed Patient presented for H. Pylori Breath testing per Dayna Mancera CNP. Obtained baseline sample at 9:56am. Patient then drank Pranactin-Citric solution. Waited full 15 minutes and obtained second sample at 10:16am. Patient tolerated testing well with no problems. LOT # [id number] EXP 05/31/2025 Arcelia Vu LPN Referring Provider: [...] Upset Date Reviewed: 12/18/2024 Reviewed by: Zulma Ji MA - Fully Assessed Reason for Visit: H. Pylori Breath Test [477] Visit Diagnosis:H. pylori infection [A04.8] Order(s):BREATH TEST FOR HELICOBACTER PYLORI [SQHPYLBR] Order #: [id number]. #:[id number] Prescriptions as of 12/30/2024 - rOPINIRole (REQUIP) [...] bedtime as needed. Dr Dupree - vit A,C,M-Qbho-Ohuetn (PRESERVISION AREDS) 7,160-113-100 xweb-jt-axsx tab Take by mouth. - ACETAMINOPHEN 500 MG TAB Take one(1) tablet every four(4) to six(6) hours as needed for pain. Problem List As Of Date 12/30/2024 Noted Resolved Unspecified constipation [K59.00] 04/30/2006 03/16/2016 PEPTIC ULCER NOS [K27.9] 03/19/2007 GENERALIZED ANXIETY DIS [F41.1] Generalized osteoarthrosis, unspecified site [M* 12/23/2015 Myalgia and myositis [ITS0658] 05/22/2017 Diverticulosis of large intestine [K57.30] Disorder [...] 01/01/2024 Lumbosacr (more content not included)... Normal [facility] Urea Breath Test-aCncon - CO2 post dose urea Qn (Exhl gas) Negative Normal Negative [facility] Comment on above: Order Comment: Speci men Type: BREATH Ordering Facility: [facility] Address: [address] [place] [address] Result Comment: Urea Breath Test is used as an aid in diagnosis of current infection with Helicobacter pylori. False positive results may occur in infection with Helicobacter heilmannii or contamination with other urease-producing bacteria. False negative results may be seen in patients with hypochlorhydria. Clinical correlation is required. Performed By: #### 2 9892-7 #### [facility] CLIA [id number] [address] [place] [address] [facility] [place] [facility] [place] 12-22-2024 CNPN Telephone (CATALINAPWS) SACHI GRACE ([id number]) 1935 F NFR Date Time Provider Department 12/22/24 [facility] During your visit today, we recorded the following information about you: Skylar Spears LPN 12/22/2024 2:12 PM Signed Pt called and asked to have referral and supporting information be faxed to Dr. Rm at [facility]. {Pt has apt on 01-01-25. [...] Upset Date Reviewed: 12/18/2024 Reviewed by: Zulma Ji MA - Fully Assessed Reason for Visit: fax referral to [facility] . Friend [Other] Prescriptions as of 12/22/2024 - ondansetron [...] bedtime as needed. Dr Dupree - vit A,C,X-Fvse-Hprilc (PRESERVISION AREDS) 7,160-113-100 qhgs-hd-fwmi tab Take by mouth. - ACETAMINOPHEN 500 MG TAB Take one(1) tablet every four(4) to six(6) hours as needed for pain. Problem List As Of Date 12/22/2024 Noted Resolved Unspecified constipation [K59.00] 04/30/2006 03/16/2016 PEPTIC ULCER NOS [K27.9] 03/19/2007 GENERALIZED ANXIETY DIS [F41.1] Generalized osteoarthrosis, unspecified site [M* 12/23/2015 Myalgia and myositis [ACJ1143] 05/22/2017 Diverticulosis of large intestine [K57.30] Disorder [...] 07/20/2014 Diagnosed: (more content not included)... Normal [facility] CNPLydia [facility] ([id number]) 1935 F NFR Date Time Provider Department 12/21/24 ANITRA MANCERAWS During your visit today, we recorded the [...] Upset Date Reviewed: 12/18/2024 Reviewed by: Zulma Ji MA - Fully Assessed Reason for Visit: [...] bedtime as needed. Dr Dupree - vit A,C,G-Ufld-Jfzooh (PRESERVISION AREDS) 7,160-113-100 bvtl-ih-dqzc tab Take by mouth. - ACETAMINOPHEN 500 MG TAB Take one(1) tablet every four(4) to six(6) hours as needed for pain. Problem List As Of Date 12/21/2024 Noted Resolved Unspecified constipation [K59.00] 04/30/2006 03/16/2016 PEPTIC ULCER NOS [K27.9] 03/19/2007 GENERALIZED ANXIETY DIS [F41.1] Generalized osteoarthrosis, unspecified site [M* 12/23/2015 Myalgia and myositis [CKC2854] 05/22/2017 Diverticulosis of large intestine [K57.30] Disorder [...] region [M7 (more content not included)... Normal [facility] CNOVon 12-18-2024 CNOV Office Visit (FAMPWS ) SACHI GRACE ([id number]) 1935 F NFR Date Time Provider Department 12/18/24 9:40 AM ANITRA MANCERA FAMPWS During your visit today, we recorded the following information about you: Temperature Pulse Blood pressure Weight 98.2 degrees 79/minute 118/76 58.4 kg Anitra Mancera, GENERAL SURGEON.TARGET WORKER 12/18/2024 10:20 AM Signed This is a 89 year old female who presents today with: Patient presents with: Abdominal Pain: Bloating, pain, nausea HISTORY OF PRESENT ILLNESS: Sachi Grace is a 89 year old female. Patient presents with: Abdominal Pain: Bloating, pain, nausea Patient seen at [facility] ER for the persistent nausea. She did [...] supraventricular tachycardia (HCC) ablation 01/2002 ( in [place], [facility]), follows with Dr. Moreno (prn only) [...] FLX DX W/COLLJ SPEC WHEN PFRMD 10/14/2018 [facility]-R. Mirabul-Repeat 5 years COLONOSCOPY SCREENING 11/15/2023 R Cebul no repeat due to age CORRECT BUNION,SIMPLE left ECHOCARDIOGRAM 10/18/2017 EGD 1985 bleeding ulcer EPS: SVT/VT ABLATION 2001 [facility] ESOPHAGOGASTRODUODENOSCOPY TRANSORAL DIAGNOSTIC 03/24/2018 EGD HERNIA REPAIR HX 09/2020 ventral hernia repair HOLTER 24 HR 10/2017 LOOP RECORDER IMPLANT 01/23/2018 NASAL/SINUS ENDOSCOPY WITH SPHENOIDOTOMY Bilateral 05/15/2019 Dr. Ruffin NASAL/SINUS ENDOSCPY W/MAXILL ANTROSTOMY Bilateral 05/15/2019 Dr. Ruffin NASAL/SINUS ENDOSCPY W/TOTAL ETHMOIDECTOMY Bilateral 05/15/2019 Dr. Ruffin OPEN REPAIR OF ROTATOR CUFF ACUTE 04/2005 Dr. Mejias PAST SURGICAL HISTORY OF 10/1997 partial colectomy ([place], [facility]) PAST SURGICAL HISTORY OF 2011 nerves [...] Cholecalciferol, Madina (more content not included)... [facility] SACHI GRACE ([id number]) 1935 F NFR Date Time Provider Department 12/15/24 [facility] During your visit today, we recorded [...] Date Reviewed: 11/27/2024 Reviewed by: Anitra Mancera APRN.TARGET WORKER - Fully Assessed Prescriptions as of 01/06/2025 [...] bedtime as needed. Dr Dupree - vit A,C,U-Umyb-Jkvarp (PRESERVISION AREDS) 7,160-113-100 rfvt-jo-iuqh tab Take by mouth. - ACETAMINOPHEN 500 MG TAB Take one(1) tablet every four(4) to six(6) hours as needed for pain. Problem List As Of Date 12/15/2024 Noted Resolved Unspecified constipation [K59.00] 04/30/2006 03/16/2016 PEPTIC ULCER NOS [K27.9] 03/19/2007 GENERALIZED ANXIETY DIS [F41.1] Generalized osteoarthrosis, unspecified site [M* 12/23/2015 Myalgia and myositis [[id number]] 05/22/2017 Diverticulosis of large intestine [K57.30] Disorder [...] Status:Closed by HALIMA DIAZ on 01/06/25 Normal [facility] Abdomen/Pelvis W IV Cont ONL Yon 12-10-2024 Abdomen/Pelvis W IV Cont ONLY [facility] Imaging Services [address] [place] [address] [id number] Abdomen/Pelvis W IV Cont ONLY MR#: [id number] Acct: [id number] Name: SACHI GRACE Rep #: [id number] : 1935 F 89 From: Denny magdaleno DO PCP: Anitra Mancera, BEND SORTER Status: REG ER Study: Abdomen/Pelvis W IV Cont ONLY Date of Exam: Exam# [id number] Ordering Dr: Tony Villanueva DO [id number] EXAM: CT ABDOMEN AND PELVIS WITH INTRAVENOUS [...] CC: LEXIE Mancera; Dr. Tony Villanueva DO Security Nurse: Signed Normal [facility] CBC W/Diff, Automatedon -0 Absolute Lymph 0.69 X10 3/uL Low 0.83-4.51 [facility] Comment on above: Performed By: #### L 100.0100, L500.4050, L501.2450 ####[facility] [address] [place], [address] Absolute Neut 3.3 X10 3/uL Normal 2.0-7.7 [facility] Comment on above: Performed By: #### L 100.0100, L500.4050, L501.2450 ####[facility] [address] [place], [address] Basophils/100 WBC (Bld) 1.2 % High 0-1 [facility] Comment on above: Performed By: #### L 100.0100, L500.4050, L501.2450 ####[facility] [address] [place], [address] Eosinophils/100 WBC (Bld) 6.8 % High 0-5 [facility] Comment on above: Performed By: #### L 100.0100, L500.4050, L501.2450 ####[facility] [address] [place], [address] Erythrocyte distribution width (RBC) [Ratio] 15.4 % High 11.6-14.6 [facility] Comment on above: Performed By: #### L 100.0100, L500.4050, L501.2450 ####[facility] [address] [place], [address] Hematocrit (Bld) [Volume fraction] 39.3 % Normal 37-47 [facility] Comment on above: Performed By: #### L 100.0100, L500.4050, L501.2450 ####[facility] [address] [place], [address] Hemoglobin (Bld) [Mass/Vol] 12.8 g/dL Normal 12.0-15.0 [facility] Comment on above: Performed By: #### L 100.0100, L500.4050, L501.2450 ####[facility] [address] [place], [address] IG% 0.200 Normal 0.0-0.9 [facility] Comment on above: Result Comment: IG% - Immature Granulocytes (promyelocytes, myelocytes and metamyelocytes) > 1% indicates that a LEFT SHIFT is Present. Performed By: #### L 100.0100, L500.4050, L501.2450 ####[facility] [address] [place], [address] Lymphocytes/100 WBC (Bld) 13.3 % Low 19-41 [facility] Comment on above: Performed By: #### L 100.0100, L500.4050, L501.2450 ####[facility] [address] [place], [address] MCH (RBC) [Entitic mass] 28.9 pg Normal 27.0-32.0 [facility] Comment on above: Performed By: #### L 100.0100, L500.4050, L501.2450 ####[facility] [address] [place], [address] MCHC (RBC) [Mass/Vol] 32.6 g/dL Normal 32-36 [facility] Comment on above: Performed By: #### L 100.0100, L500.4050, L501.2450 ####[facility] [address] [place], [address] MCV (RBC) [Entitic vol] 88.7 fL Normal 81-99 [facility] Comment on above: Performed By: #### L 100.0100, L500.4050, L501.2450 ####[facility] [address] [place], [address] Monocytes/100 WBC (Bld) 15.7 % High 0-10 [facility] Comment on above: Performed By: #### L 100.0100, L500.4050, L501.2450 ####[facility] [address] [place], [address] Neutrophils/100 WBC (Bld) 62.8 % Normal 47-70 [facility] Comment on above: Performed By: #### L 100.0100, L500.4050, L501.2450 ####[facility] [address] [place], [address] Nucleated RBC (Bld) [#/Vol] 0 10*3/uL Normal 0-5 [facility] Comment on above: Performed By: #### L 100.0100, L500.4050, L501.2450 ####[facility] [address] [place], [address] Platelet mean volume (Bld) [Entitic vol] 9.2 fL Normal 6.2-12.0 [facility] Comment on above: Performed By: #### L 100.0100, L500.4050, L501.2450 ####[facility] [address] [place], [address] Platelets (Bld) [#/Vol] 353 10*3/uL Normal 150-450 [facility] Comment on above: Performed By: #### L 100.0100, L500.4050, L501.2450 ####[facility] [address] [place], [address] RBC (Bld) [#/Vol] 4.43 10*6/uL Normal 4.2-5.4 [facility] Comment on above: Performed By: #### L 100.0100, L500.4050, L501.2450 ####[facility] [address] [place], [address] RDW SD 50.5 fl High 35.1-43.9 [facility] Comment on above: Performed By: #### L 100.0100, L500.4050, L501.2450 ####[facility] [address] [place], [address] WBC (Bld) [#/Vol] 5.2 10*3/uL Normal 4.4-11.0 [facility] Comment on above: Performed By: #### L 100.0100, L500.4050, L501.2450 ####[facility] [address] [place], [address] CNPNon 12-10-2024 [facility] SCHUYLERSACHI ([id number]) 1935 F NFR Date Time Provider Department 12/10/24 [facility] During your visit today, we recorded the following information about you: Kevin Vang RN 12/10/2024 11:35 AM Signed Pt reports she [...] appt with Dayna on Sat12/18/24. Anitra Mancera, GENERAL SURGEON.TARGET WORKER 12/10/2024 12:13 PM Signed Go to ER. Ulcer could perforate. Would need Ct scan Zulma Ji MA 12/10/2024 12:59 PM Signed Left message on home number, attempted to call cell, no answer, no voicemail. Kevin Vang RN 12/10/2024 2:03 PM Signed Left vm for patient to return call to triage nurse for provider instructions. Kevin Vang, YARY 12/10/2024 4:30 PM Signed Left vm for patient to return call to triage nurse for providers instructions. Kevin Vang RN 12/10/2024 5:01 PM Signed Left vm for pt to return call. Alix Garcia RN 12/10/2024 6:52 PM Signed Pt called and is notified of providers message and instructions. Pt voices understanding and will be going to [facility] ER. Alix Garcia RN Allergies As [...] Date Reviewed: 11/27/2024 Reviewed by: Anitra Mancera APRN.TARGET WORKER - Fully Assessed Reason for Visit: Patient [...] bedtime as needed. Dr Dupree - vit A,C,S-Rmom-Pzggbt (PRESERVISION AREDS) 7,160-113-100 pnod-hb-grtv tab Take by mouth. - ACETAMINOPHEN 500 MG TAB Take one(1) tablet every four(4) to six(6) hours as needed for pain. Problem List As Of Date 12/10/2024 Noted Resolved Unspecified constipation [K59.00] 04/30/2006 03/16/2016 PEPTIC ULCER NOS [K27.9] 03/19/2007 GENERALIZED ANXIETY DIS [F41.1] Generalized osteoarthrosis, unspecified site [M* 12/23/2015 Myalgia and myositis [HAH0343] 05/22/2017 Diverticulosis of large intestine [K57.30] Disorder [...] [* N (more content not included)... Normal [facility] Metabolic [facility] ilon 12-10-2024 Albumin [Mass/Vol] 3.4 g/dL Normal 3.2-5.0 [facility] Comment on above: Performed By: #### L 100.0100, L500.4050, L501.2450 ####[facility] [address] [place], [address] Albumin/Globulin [Mass ratio] 0.8 {ratio} Low 0.9-2.4 [facility] Comment on above: Performed By: #### L 100.0100, L500.4050, L501.2450 ####[facility] [address] [place], [address] ALK P 95 U/L Normal 45-117 [facility] Comment on above: Performed By: #### L 100.0100, L500.4050, L501.2450 ####[facility] [address] [place], [address] ALT [Catalytic activity/Vol] 39 U/L Normal 13-56 [facility] Comment on above: Performed By: #### L 100.0100, L500.4050, L501.2450 ####[facility] [address] [place], [address] AST [Catalytic activity/Vol] 47 U/L High 15-37 [facility] Comment on above: Performed By: #### L 100.0100, L500.4050, L501.2450 ####[facility] [address] [place], [address] Bilirubin [Mass/Vol] 0.30 mg/dL Normal 0.20-1.00 [facility] Comment on above: Result Comment: For patients on eltrombopag therapy, use of Dimension Chisholm TBIL is not recommended. Performed By: #### L 100.0100, L500.4050, L501.2450 ####[facility] [address] [place], [address] BUN/CRE 19.9 RATIO Normal 10-20 [facility] Comment on above: Performed By: #### L 100.0100, L500.4050, L501.2450 ####[facility] [address] [place], [address] CA,Total 9.1 mg/dL Normal 8.5-10.1 [facility] Comment on above: Performed By: #### L 100.0100, L500.4050, L501.2450 ####[facility] [address] [place], [address] Chloride [Moles/Vol] 100 mmol/L Normal 98-107 [facility] Comment on above: Performed By: #### L 100.0100, L500.4050, L501.2450 ####[facility] [address] [place], [address] CO2 [Moles/Vol] 31.0 mmol/L Normal 21.0-32.0 [facility] Comment on above: Performed By: #### L 100.0100, L500.4050, L501.2450 ####[facility] [address] [place], [address] Creatinine [Mass/Vol] 0.65 mg/dL Normal 0.55-1.02 [facility] Comment on above: Result Comment: The validity of the calculated GFR GFRAA in patients over 70 years has not been determined. Clinical correlation is essential. Performed By: #### L 100.0100, L500.4050, L501.2450 ####[facility] [address] [place], [address] ECRCL 39.61 ml/min Normal [facility] Comment on above: Performed By: #### L 100.0100, L500.4050, L501.2450 ####[facility] [address] [place], [address] EST GFR - AA 110 mL/min Normal >60 [facility] Comment on above: Result Comment: Afri can Brazilian GFR Calc Performed By: #### L 100.0100, L500.4050, L501.2450 ####[facility] [address] [place], [address] GAP 5 Normal 5-15 [facility] Comment on above: Performed By: #### L 100.0100, L500.4050, L501.2450 ####[facility] [address] [place], [address] GFR/1.73 sq M.predicted among non-blacks MDRD (S/P/Bld) [Vol rate/Area] 91 mL/min/{1.73_m2} Normal >60 [facility] Comment on above: Result Comment: Non- GFR Calc Performed By: #### L 100.0100, L500.4050, L501.2450 ####[facility] [address] [place], [address] Globulin (S) [Mass/Vol] 4.1 g/dL Normal 2.2-4.2 [facility] Comment on above: Performed By: #### L 100.0100, L500.4050, L501.2450 ####[facility] [address] [place], [address] Glucose [Mass/Vol] 100 mg/dL Normal 74-106 [facility] Comment on above: Result Comment: Fast ing Glucose result from 100 to 125 mg/dL suggests IMPAIRED HOMEOSTASIS per A.D.A. criteria. Performed By: #### L 100.0100, L500.4050, L501.2450 ####[facility] [address] [place], [address] Potassium [Moles/Vol] 3.8 mmol/L Normal 3.5-5.1 [facility] Comment on above: Performed By: #### L 100.0100, L500.4050, L501.2450 ####[facility] [address] [place], [address] Sodium [Moles/Vol] 136 mmol/L Normal 136-145 [facility] Comment on above: Performed By: #### L 100.0100, L500.4050, L501.2450 ####[facility] [address] [place], [address] T PROT 7.5 g/dL Normal 6.4-8.2 [facility] Comment on above: Performed By: #### L 100.0100, L500.4050, L501.2450 ####[facility] [address] [place], [address] Urea nitrogen [Mass/Vol] 13 mg/dL Normal 7-18 [facility] Comment on above: Performed By: #### L 100.0100, L500.4050, L501.2450 ####[facility] [address] [place], [address] Emergency Department Summary on 12-10-2024 Emergency Department Summary [facility] Medical Records Department [address] [place] [address] Emergency Department Summary 12/10/24 MR#: [id number] Acct: [id number] Name: SACHI GRACE Rep #: [id number] : 1935 89 From: Tony Villanueva DO PCP: Anitra Mancera, BEND SORTER Status:DEP ER Location: ED HPI HPI - [...] some constipation. Patient denies any urinary complaints. [facility] Medical History Wears partial dentures Fibromyalgia Arthritis [...] PO BID 11/22/17 Unknown History mg-copper 1 ps-vygulo-aushha capsule (PreserVision AREDS-2) polyethylene glycol 3350 17 [...] at h (more content not included)... Normal [facility] Lipaseon 12-10-2024 Lipase [Catalytic activity/Vol] 25 U/L Normal 13-75 [facility] Comment on above: Result Comment: Sandeep bhandari note: LIPASE revised reference range effective 23. New Lipase methodology. Expected to produce lower values than the previous assay method. NEW Reference Range: 13 - 75 U/L Performed By: #### L 100.0100, L500.4050, L501.2450 ####[facility] [address] [place], [address] Urinalysis, Completeon 12-10 RBC 0-5 SEEN Normal 0-5 [facility] Comment on above: Order Comment: CLEAN CATCH Performed By: #### L 3100.5020 #### [facility] [address] [place], [address] WBC 0-5 SEEN Normal 0-5 [facility] Comment on above: Order Comment: CLEAN CATCH Performed By: #### L 3100.5020 #### [facility] [address] [place], [address] BACTERIA 0 SEEN Normal None Seen [facility] Comment on above: Order Comment: CLEAN CATCH Performed By: #### L 3100.5020 #### [facility] [address] [place], [address] EPI,SQUAMOUS 0 SEEN Normal 5-10 [facility] Comment on above: Order Comment: CLEAN CATCH Performed By: #### L 3100.5020 #### [facility] [address] [place], [address] Mucus Ql (Urine sed) 0 SEEN Normal [facility] Comment on above: Order Comment: CLEAN CATCH Performed By: #### L 3100.5020 #### [facility] [address] [place], [address] [facility] 11-30-2024 [facility] Telephone (FAMPWS) SCHUYLER,SACHI ([id number]) 1935 F NFR Date Time Provider Department 11/30/24 [facility] During your visit today, we recorded [...] pylori ulcer [K27.9, B96.81] Order(s):CONSULT TO GASTROENTEROLOGY [9010] Order #: [id number]: 1 FUTURE Prescriptions as of 11/30/2024 - [...] bedtime as needed. Dr Dupree - vit A,C,U-Nwbq-Kjpyed (PRESERVISION AREDS) 7,160-113-100 uova-on-yesb tab Take by mouth. - ACETAMINOPHEN 500 MG TAB Take one(1) tablet every four(4) to six(6) hours as needed for pain. Problem List As Of Date 11/30/2024 Noted Resolved Unspecified constipation [K59.00] 04/30/2006 03/16/2016 PEPTIC ULCER NOS [K27.9] 03/19/2007 GENERALIZED ANXIETY DIS [F41.1] Generalized osteoarthrosis, unspecified site [M* 12/23/2015 Myalgia and myositis [UPY6799] 05/22/2017 Diverticulosis of large intestine [K57.30] Disorder [...] Nausea [ (more content not included)... Normal [facility] CNOVon 11-27-2024 CNOV Office Visit (FAMPWS ) SACHI GRACE ([id number]) 1935 F NFR Date Time Provider Department 11/27/24 11:00 AM [facility]ANCERA [facility] During your visit today, we recorded the following information about you: Temperature Pulse Blood pressure Weight 97.5 degrees 74/minute 102/58 59 kg Anitra Mancera APRN.TARGET WORKER 11/27/2024 11:42 AM Signed This is a [...] supraventricular tachycardia (HCC) ablation 01/2002 ( in [facility]), follows with Dr. Moreno (prn only) [...] FLX DX W/COLLJ SPEC WHEN PFRMD 10/14/2018 [facility]-Selam Tabares-Repeat 5 years COLONOSCOPY SCREENING 11/15/2023 R Cebul no repeat due to age CORRECT BUNION,SIMPLE left ECHOCARDIOGRAM 10/18/2017 EGD 1985 bleeding ulcer EPS: SVT/VT ABLATION 2001 [facility] ESOPHAGOGASTRODUODENOSCOPY TRANSORAL DIAGNOSTIC 03/24/2018 EGD HERNIA REPAIR HX 09/2020 ventral hernia repair HOLTER 24 HR 10/2017 LOOP RECORDER IMPLANT 01/23/2018 NASAL/SINUS ENDOSCOPY WITH SPHENOIDOTOMY Bilateral 05/15/2019 Dr. Ruffin NASAL/SINUS ENDOSCPY W/MAXILL ANTROSTOMY Bilateral 05/15/2019 Dr. Ruffin NASAL/SINUS ENDOSCPY W/TOTAL ETHMOIDECTOMY Bilateral 05/15/2019 Dr. Ruffin OPEN REPAIR OF ROTATOR CUFF ACUTE 04/2005 Dr. Mejias PAST SURGICAL HISTORY OF 10/1997 partial colectomy ([place], [facility]) PAST SURGICAL HISTORY OF 2011 nerves [...] at bedtime as needed. Dr Dupree vit A,C,D-Ypfe-Xffjbl (PRESERVISION AREDS) 7,160-113-100 cuci-di-zdez tab Take by mouth. ACETAMINOPHEN 500 MG TAB Take one (more content not included)... Normal [facility] 11-26-2024 [facility] ([id number]) 1935 F NFR Date Time Provider Department 11/26/24 [facility] During your visit today, we recorded the following information about you: Anitra Mancera APRN.[facility] 11/26/2024 7:47 AM Signed Please let patient [...] appt to follow up with you tomorrow. Anitra Mancera APRN.CNP 11/26/2024 11:56 AM Signed We need to treat the H. pylori. She may be having a little bit of bleeding or it may be the Pepto-Bismol. We need to get the stomach to heal. Zulma Ji MA 11/26/2024 12:06 PM Signed Patient notified [...] Date Reviewed: 11/23/2024 Reviewed by: Anitra Mancera APRN.TARGET WORKER - Fully Assessed Reason for Visit: Results [...] bedtime as needed. Dr Dupree - vit A,C,Z-Dbva-Ncfxzg (PRESERVISION AREDS) 7,160-113-100 onkf-mt-fyjb tab Take by mouth. - ACETAMINOPHEN 500 MG TAB Take one(1) tablet every four(4) to six(6) hours as needed for pain. Problem List As Of Date 11/26/2024 Noted Resolved Unspecified constipation [K59.00] 04/30/2006 03/16/2016 PEPTIC ULCER NOS [K27.9] 03/19/2007 GENERALIZED ANXIETY DIS [F41.1] Generalized osteoarthrosis, unspecified site [M* 12/23/2015 Myalgia and myositis [XVU2527] 05/22/2017 Diverticulosis of large intestine [K57.30] Disorder [...] knee replacement, (more content not included)... Normal [facility] Amylase SerPl-cCncon 024 Amylase [Catalytic activity/Vol] 40 U/L Normal 30-104 [facility] Comment on above: Order Comment: Speci men Type: BLOOD SPECIMEN Ordering Facility: [facility] Address: [address] [place] [address] Performed By: #### 2 4323-8, 26612-4, 3016-3, LIPNF #### [facility] CLIA [id number] [address] [place] [address] [place] Basic metabolic 2000 panelon 11-23-2024 Anion gap [Moles/Vol] 12 mmol/L Normal 8-15 [facility] Comment on above: Order Comment: Speci men Type: BLOOD SPECIMEN Ordering Facility: [facility] Address: [address] [place] [address] Performed By: #### 2 4323-8, 85429-9, 3016-3, LIPNF #### [facility] CLIA [id number] [address] [place] [address] [place] Calcium [Mass/Vol] 9.4 mg/dL Normal 8.5-10.2 [facility] Comment on above: Order Comment: Speci men Type: BLOOD SPECIMEN Ordering Facility: [facility] Address: [address] [place] [address] Performed By: #### 2 4323-8, 96563-3, 3016-3, LIPNF #### [facility] CLIA [id number] [address] [place] [address] [place] Chloride [Moles/Vol] 101 mmol/L Normal 98-107 [facility] Comment on above: Order Comment: Speci men Type: BLOOD SPECIMEN Ordering Facility: [facility] Address: [address] [place] [address] Performed By: #### 2 4323-8, 46876-4, 3016-3, LIPNF #### [facility] CLIA [id number] [address] [place] [address] [place] CO2 [Moles/Vol] 27 mmol/L Normal 22-30 [facility] Comment on above: Order Comment: Speci men Type: BLOOD SPECIMEN Ordering Facility: [facility] Address: [address] [place] [address] Performed By: #### 2 4323-8, 11998-9, 3016-3, LIPNF #### [facility] CLIA [id number] [address] [place] [address] [place] Creatinine [Mass/Vol] 0.53 mg/dL Low 0.58-0.96 [facility] Comment on above: Order Comment: Speci men Type: BLOOD SPECIMEN Ordering Facility: [facility] Address: [address] [place] [address] Performed By: #### 2 4323-8, 47391-7, 3016-3, LIPNF #### [facility] CLIA [id number] [address] [place] [address] [place] Creatinine and Glomerular filtration rate.predicted panel (S/P/Bld) 89 mL/min/1.73m??? Normal >=60 [facility] Comment on above: Order Comment: Pearl color[place] Type: BLOOD SPECIMEN Ordering Facility: [facility] Address: [address] [place] [address] Result Comment: Solitario mated Glomerular Filtration Rate [...] reflect actual GFR. Performed By: #### 2 4323-8, 36907-7, 3016-3, LIPNF #### [facility] CLIA [id number] [address] [place] [address] [place] Glucose [Mass/Vol] 92 mg/dL Normal 74-99 [facility] Comment on above: Order Comment: Pearl [place] Type: BLOOD SPECIMEN Ordering Facility: [facility] Address: [address] [place] [address] Result Comment: The [place] Diabetes Association (ADA) provides guidance for cutoff [...] Standards of Medical Care in Diabetes 2016, [place] Diabetes Association. Diabetes Care. 2016.39(Suppl 1). Performed By: #### 2 4323-8, 38564-5, 3016-3, LIPNF #### [facility] CLIA [id number] [address] [place] [address] [place] Potassium [Moles/Vol] 4.2 mmol/L Normal 3.7-5.1 [facility] Comment on above: Order Comment: Speci men Type: BLOOD SPECIMEN Ordering Facility: [facility] Address: [address] [place] [address] Performed By: #### 2 4323-8, 10638-4, 3016-3, LIPNF #### [facility] CLIA [id number] [address] [place] [address] [place] Sodium [Moles/Vol] 140 mmol/L Normal 136-144 [facility] Comment on above: Order Comment: Speci men Type: BLOOD SPECIMEN Ordering Facility: [facility] Address: [address] [place] [address] Performed By: #### 2 4323-8, 06341-9, 6-3, LIPNF #### [facility] CLIA [id number] [address] [place] [address] [place] Urea nitrogen [Mass/Vol] 12 mg/dL Normal 7-21 [facility] Comment on above: Order Comment: Speci men Type: BLOOD SPECIMEN Ordering Facility: [facility] Address: [address] [place] [address] Performed By: #### 2 4323-8, 89365-1, 3016-3, LIPNF #### [facility] CLIA [id number] [address] [place] [address] [place] CBC W Auto Differential pane l (Bld)on 11-23-2024 Basophils (Bld) [#/Vol] 0.03 10*3/uL NINF [facility] Basophils/100 WBC (Bld) 0.6 % [facility] Differential cell count method Nom (Bld) Auto [facility] Eosinophils (Bld) [#/Vol] 0.26 10*3/uL [facility] Eosinophils/100 WBC (Bld) 5.6 % [facility] Erythrocyte distribution width (RBC) [Ratio] 14.6 % 11.5 - 15.0 % [facility] Hematocrit (Bld) [Volume fraction] 40.7 % 36.0 - 46.0 % [facility] Hemoglobin (Bld) [Mass/Vol] 12.8 g/dL 11.5 - 15.5 g/dL [facility] Immature granulocytes (Bld) [#/Vol] [facility] Immature granulocytes/100 WBC (Bld) 0.2 % [facility] Interpretation and review of laboratory results Abnormal [facility] Lymphocytes (Bld) [#/Vol] 0.73 10*3/uL Low [facility] Lymphocytes/100 WBC (Bld) 15.6 % [facility] MCH (RBC) [Entitic mass] 28.4 pg 26.0 - 34.0 pg [facility] MCHC (RBC) [Mass/Vol] 31.4 g/dL 30.5 - 36.0 g/dL [facility] MCV (RBC) [Entitic vol] 90.4 fL 80.0 - 100.0 fL [facility] Monocytes (Bld) [#/Vol] 0.60 10*3/uL [facility] Monocytes/100 WBC (Bld) 12.8 % [facility] Neutrophils (Bld) [#/Vol] 3.04 10*3/uL [facility] Neutrophils/100 WBC (Bld) 65.2 % [facility] Nucleated RBC (Bld) [#/Vol] [facility] Nucleated RBC/100 WBC (Bld) [Ratio] 0.0 % /100 WBC [facility] Platelet mean volume (Bld) [Entitic vol] 9.7 fL 9.0 - 12.7 fL [facility] Platelets (Bld) [#/Vol] 378 10*3/uL [facility] RBC (Bld) [#/Vol] 4.50 10*6/uL 3.90 - 5.2 0 m/uL [facility] WBC (Bld) [#/Vol] 4.67 10*3/uL [facility] Basophils (Bld) [#/Vol] 0.03 10*3/uL Normal <0.11 [facility] Comment on above: Order Comment: Speci men Type: BLOOD SPECIMENOrdering Facility: [facility] Address: [address] [place] [address] Performed By: #### 5 7021-8 ####[facility] [id number] [place] [address] [place] Basophils/100 WBC (Bld) 0.6 % Normal [facility] Comment on above: Order Comment: Speci men Type: BLOOD SPECIMENOrdering Facility: [facility] Address: [address] [place] [address] Performed By: #### 5 7021-8 ####[facility] [id number] [place] [address] [place] Differential cell count method Nom (Bld) Auto Normal [facility] Comment on above: Order Comment: Speci men Type: BLOOD SPECIMENOrdering Facility: [facility] Address: [address] [place] [address] Performed By: #### 5 7021-8 ####[facility] [id number] [place] [address] [place] Eosinophils (Bld) [#/Vol] 0.26 10*3/uL Normal <0.46 [facility] Comment on above: Order Comment: Speci men Type: BLOOD SPECIMENOrdering Facility: [facility] Address: [address] [place] [address] Performed By: #### 5 7021-8 ####[facility] [id number] [place] [address] [place] Eosinophils/100 WBC (Bld) 5.6 % Normal [facility] Comment on above: Order Comment: Speci men Type: BLOOD SPECIMENOrdering Facility: [facility] Address: [address] [place] [address] Performed By: #### 5 7021-8 ####[facility] [id number] [place] [address] [place] Erythrocyte distribution width (RBC) [Ratio] 14.6 % Normal 11.5-15.0 [facility] Comment on above: Order Comment: Speci men Type: BLOOD SPECIMENOrdering Facility: [facility] Address: [address] [place] [address] Performed By: #### 5 7021-8 ####[facility] [id number] [place] [address] [place] Hematocrit (Bld) [Volume fraction] 40.7 % Normal 36.0-46.0 [facility] Comment on above: Order Comment: Speci men Type: BLOOD SPECIMENOrdering Facility: [facility] Address: [address] [place] [address] Performed By: #### 5 7021-8 ####[facility] [id number] [place] [address] [place] Hemoglobin (Bld) [Mass/Vol] 12.8 g/dL Normal 11.5-15.5 [facility] Comment on above: Order Comment: Speci men Type: BLOOD SPECIMENOrdering Facility: [facility] Address: [address] [place] [address] Performed By: #### 5 7021-8 ####[facility] [id number] [place] [address] [place] Immature granulocytes (Bld) [#/Vol] 10*3/uL Normal <0.10 [facility] Comment on above: Order Comment: Speci men Type: BLOOD SPECIMENOrdering Facility: [facility] Address: [address] [place] [address] Performed By: #### 5 7021-8 ####[facility] [id number] [place] [address] [place] Immature granulocytes/100 WBC (Bld) 0.2 % Normal [facility] Comment on above: Order Comment: Speci men Type: BLOOD SPECIMENOrdering Facility: [facility] Address: [address] [place] [address] Performed By: #### 5 7021-8 ####[facility] [id number] [place] [address] [place] Lymphocytes (Bld) [#/Vol] 0.73 10*3/uL Low 1.00-4.00 [facility] Comment on above: Order Comment: Speci men Type: BLOOD SPECIMENOrdering Facility: [facility] Address: [address] [place] [address] Performed By: #### 5 7021-8 ####[facility] [id number] [place] [address] [place] Lymphocytes/100 WBC (Bld) 15.6 % Normal [facility] Comment on above: Order Comment: Speci men Type: BLOOD SPECIMENOrdering Facility: [facility] Address: [address] [place] [address] Performed By: #### 5 7021-8 ####[facility] [id number] [place] [address] [place] MCH (RBC) [Entitic mass] 28.4 pg Normal 26.0-34.0 [facility] Comment on above: Order Comment: Speci men Type: BLOOD SPECIMENOrdering Facility: [facility] Address: [address] [place] [address] Performed By: #### 5 7021-8 ####[facility] [id number] [place] [address] [place] MCHC (RBC) [Mass/Vol] 31.4 g/dL Normal 30.5-36.0 [facility] Comment on above: Order Comment: Speci men Type: BLOOD SPECIMENOrdering Facility: [facility] Address: [address] [place] [address] Performed By: #### 5 7021-8 ####[facility] [id number] [place] [address] [place] MCV (RBC) [Entitic vol] 90.4 fL Normal 80.0-100.0 [facility] Comment on above: Order Comment: Speci men Type: BLOOD SPECIMENOrdering Facility: [facility] Address: [address] [place] [address] Performed By: #### 5 7021-8 ####[facility] [id number] [place] [address] [place] Monocytes (Bld) [#/Vol] 0.60 10*3/uL Normal <0.87 [facility] Comment on above: Order Comment: Speci men Type: BLOOD SPECIMENOrdering Facility: [facility] Address: [address] [place] [address] Performed By: #### 5 7021-8 ####[facility] [id number] [place] [address] [place] Monocytes/100 WBC (Bld) 12.8 % Normal [facility] Comment on above: Order Comment: Speci men Type: BLOOD SPECIMENOrdering Facility: [facility] Address: [address] [place] [address] Performed By: #### 5 7021-8 ####[facility] [id number] [place] [address] [place] Neutrophils (Bld) [#/Vol] 3.04 10*3/uL Normal 1.45-7.50 [facility] Comment on above: Order Comment: Speci men Type: BLOOD SPECIMENOrdering Facility: [facility] Address: [address] [place] [address] Performed By: #### 5 7021-8 ####[facility] [id number] [place] [address] [place] Neutrophils/100 WBC (Bld) 65.2 % Normal [facility] Comment on above: Order Comment: Speci men Type: BLOOD SPECIMENOrdering Facility: [facility] Address: [address] [place] [address] Performed By: #### 5 7021-8 ####[facility] [id number] [place] [address] [place] Nucleated RBC (Bld) [#/Vol] 10*3/uL Normal <0.01 [facility] Comment on above: Order Comment: Speci men Type: BLOOD SPECIMENOrdering Facility: [facility] Address: [address] [place] [address] Performed By: #### 5 7021-8 ####[facility] [id number] [place] [address] [place] Nucleated RBC/100 WBC (Bld) [Ratio] 0.0 /100 WBC Normal [facility] Comment on above: Order Comment: Speci men Type: BLOOD SPECIMENOrdering Facility: [facility] Address: [address] [place] [address] Performed By: #### 5 7021-8 ####[facility] [id number] [place] [address] [place] Platelet mean volume (Bld) [Entitic vol] 9.7 fL Normal 9.0-12.7 [facility] Comment on above: Order Comment: Speci men Type: BLOOD SPECIMENOrdering Facility: [facility] Address: [address] [place] [address] Performed By: #### 5 7021-8 ####[facility]IA [id number] [place] [address] [place] Platelets (Bld) [#/Vol] 378 10*3/uL Normal 150-400 [facility] Comment on above: Order Comment: Speci men Type: BLOOD SPECIMENOrdering Facility: [facility] Address: [address] [place] [address] Performed By: #### 5 7021-8 ####[facility] [id number] [place] [address] [place] RBC (Bld) [#/Vol] 4.50 10*6/uL Normal 3.90-5.20 [facility] Comment on above: Order Comment: Speci men Type: BLOOD SPECIMENOrdering Facility: [facility] Address: [address] [place] [address] Performed By: #### 5 7021-8 ####[facility]CLIA [id number] [place] [address] [place] WBC (Bld) [#/Vol] 4.67 10*3/uL Normal 3.70-11.00 [facility] Comment on above: Order Comment: Speci men Type: BLOOD SPECIMENOrdering Facility: [facility] Address: [address] [place] [address] Performed By: #### 5 7021-8 ####[facility]IA [id number] [place] [address] [place] KVNGOVon 11-23-2024 CNOV Office Visit (FAMPWS ) SACHI GRACE ([id number]) 1935 F NFR Date Time Provider Department 11/23/24 11:20 AM ANITRA MANCERA FAMPWS During your visit today, we recorded the following information about you: Temperature Pulse Blood pressure Weight 97.9 degrees 72/minute 114/68 57.6 kg Anitra Mancera APRN.TARGET WORKER 11/23/2024 11:57 AM Signed This is a [...] supraventricular tachycardia (HCC) ablation 01/2002 ( in [place], [facility]), follows with Dr. Moreno (prn only) [...] FLX DX W/COLLJ SPEC WHEN PFRMD 10/14/2018 [facility]-R. Cebul-Repeat 5 years COLONOSCOPY SCREENING 11/15/2023 R Cebul no repeat due to age CORRECT BUNION,SIMPLE left ECHOCARDIOGRAM 10/18/2017 EGD 1985 bleeding ulcer EPS: SVT/VT ABLATION 2001 [facility] ESOPHAGOGASTRODUODENOSCOPY TRANSORAL DIAGNOSTIC 03/24/2018 EGD HERNIA REPAIR HX 09/2020 ventral hernia repair HOLTER 24 HR 10/2017 LOOP RECORDER IMPLANT 01/23/2018 NASAL/SINUS ENDOSCOPY WITH SPHENOIDOTOMY Bilateral 05/15/2019 Dr. Ruffin NASAL/SINUS ENDOSCPY W/MAXILL ANTROSTOMY Bilateral 05/15/2019 Dr. Ruffin NASAL/SINUS ENDOSCPY W/TOTAL ETHMOIDECTOMY Bilateral 05/15/2019 Dr. Ruffin OPEN REPAIR OF ROTATOR CUFF ACUTE 04/2005 Dr. Mejias PAST SURGICAL HISTORY OF 10/1997 partial colectomy ([place], [facility]) PAST SURGICAL HISTORY OF 2011 nerves [...] at bedtime as needed. Dr Dupree vit A,C,X-Akrv-Nrpcva (PRESERVISION AREDS) 7,160-113-100 kwht-ls-zife tab Take by mouth. ACETAMINOPHEN 500 MG [...] Artery Diseas (more content not included)... Normal [facility] H. pylori IgG IA Qlon 2023 H. PYLORI IGG, QUAL Positive Abnormal Negative [facility] Comment on above: Order Comment: Speci men Type: BLOOD SPECIMEN Ordering Facility: [facility] Address: [address] [place] [address] Result Comment: The result suggests recent or past infection with H. pylori. Clinical correlation is required. Where clinically warranted, follow up testing is suggested including Urea Breath Test or H. pylori stool antigen test. Performed By: #### 2 4323-8, 54862-7, 3016-3, LIPNF #### [facility] CLIA [id number] [address] [place] [address] [place] Iron and Iron binding capaci ty panelon 11-23-2024 Iron [Mass/Vol] 46 ug/dL Normal 41-186 [facility] Comment on above: Order Comment: Pearl [place] Type: BLOOD SPECIMEN Ordering Facility: [facility] Address: [address] [place] [address] Performed By: #### 2 4323-8, 98007-0, 6-3, LIPNF #### [facility] CLIA [id number] [address] [place] [address] [place] Iron binding capacity [Mass/Vol] 264 ug/dL Normal 232-386 [facility] Comment on above: Order Comment: Kathyai stanislav Type: BLOOD SPECIMEN Ordering Facility: [facility] Address: [address] [place] [address] Performed By: #### 2 4323-8, 65553-3, 3016-3, LIPNF #### [facility] CLIA [id number] [address] [place] [address] [place] Iron/TIBC [Molar ratio] 17.4 % Normal 15.0-57.0 [facility] Comment on above: Order Comment: Speci men Type: BLOOD SPECIMEN Ordering Facility: [facility] Address: [address] [place] [address] Performed By: #### 2 4323-8, 62365-6, 3016-3, LIPNF #### [facility] CLIA [id number] [address] [place] [address] [place] Lipase SerPl-cCncon 11-23-20 24 Lipase [Catalytic activity/Vol] 23 U/L Normal 16-61 [facility] Comment on above: Order Comment: Pearl [place] Type: BLOOD SPECIMEN Ordering Facility: [facility] Address: [address] [place] [address] Performed By: #### 2 4323-8, 30021-9, 3016-3, LIPNF #### [facility] CLIA [id number] [address] [place] [address] [place] XR KNEE 4V AP/PA/LAT/MERCH [...] Total arthroplasty without radiographic evidence of complication. Security Nurse: BINTA Transcribe Date/Time: Nov 29 2024 4:53P Dictated by : LEANA CONTRERAS MD This examination was interpreted and the report reviewed and electronically signed by: LEANA CONTRERAS MD on Nov 29 2024 4:59PM EST [id number] Normal [facility]ACH[facility] ([id number]) 1935 F NFR Date Time Provider Department 11/11/24 ANITRA MANCERA [facility] During your visit today, we recorded the [...] She has a doctor she sees in [place] and has an apt today. Pt will keep this apt but with her age she does not want to continue to travel to [place] and wants to go to Dr. Dempsey. Please review and approve referral, then contact pt back and help her get an apt . JULIA Power Jacqueline A, APRN.[facility] 11/12/2024 7:59 AM Signed Order placed for [...] Date Reviewed: 11/03/2024 Reviewed by: Anitra Mancera APRN.TARGET WORKER - Fully Assessed Reason for Visit: Referral Request [124] Primary Visit Diagnosis:Hypothyroidism, acquired [E03.9] Order(s):CONSULT TO ENDOCRINOLOGY [1613] Order #: [id number]: [id number] FUTURE Prescriptions as of 11/16/2024 - [...] bedtime as needed. Dr Dupree - vit A,C,Z-Mrfq-Qiaidl (PRESERVISION AREDS) 7,160-113-100 quyf-xv-lcuf tab Take by mouth. - ACETAMINOPHEN 500 MG TAB Take one(1) tablet every four(4) to six(6) hours as needed for pain. Problem List As Of Date 11/11/2024 Noted Resolved Unspecified constipation [K59.00] 04/30/2006 03/16/2016 PEPTIC ULCER NOS [K27.9] 03/19/2007 GENERALIZED ANXIETY DIS [F41.1] Generalized osteoarthrosis, unspecified site [M* 12/23/2015 Myalgia and myositis [DTK9866] 05/22/2017 Diverticulosis of large intestine [K57.30] Disorder [...] for pre-ope (more content not included)... Normal [facility] CNPNon 11-10-2024 CNPN Telephone (FAMPWS) SACHI GRACE ([id number]) 1935 F NFR Date Time Provider Department 11/10/24 [facility] During your visit today, we recorded the following information about you: [employer] MA 11/10/2024 2:36 PM Signed Scan on 11/10/2024 10:26 AM by Provider, TABITHA Arce: Mammography Anitra Mancera APRN.[facility] 11/10/2024 2:44 PM Signed Please let pt. [...] listed below given. Pt verbalizes understanding. Skylar Spears LPN Allergies As of Date: 11/10/2024 Noted [...] Date Reviewed: 11/03/2024 Reviewed by: Anitra Mancera APRN.[employer] WORKER - Fully Assessed Reason for Visit: Results [...] bedtime as needed. Dr Dupree - vit A,C,E-Flcm-Zkfnlv (PRESERVISION AREDS) 7,160-113-100 kzyz-wj-xtvm tab Take by mouth. - ACETAMINOPHEN 500 MG TAB Take one(1) tablet every four(4) to six(6) hours as needed for pain. Problem List As Of Date 11/10/2024 Noted Resolved Unspecified constipation [K59.00] 04/30/2006 03/16/2016 PEPTIC ULCER NOS [K27.9] 03/19/2007 GENERALIZED ANXIETY DIS [F41.1] Generalized osteoarthrosis, unspecified site [M* 12/23/2015 Myalgia and myositis [UHI1319] 05/22/2017 Diverticulosis of large intestine [K57.30] Disorder [...] partial surgical (more content not included)... Normal [facility] MR/BMS.BPon 11-10-2024 MR/BMS.BP [address], [place] [address] OFFICE VISIT Date of Service: 11/10/24 MR#: [id number] Acct: [id number] Name: SACHI GRACE Rep #: [id number] : 1935 Provider: Dr. Hugh Moss se DO Age/Sex: 89/F Location: [facility].BP Status: Signed Intake Vital Signs 03/31/24 09:51 [...] PO BID 11/22/17 03/03/24 History mg-copper 1 ve-qvzzws-orcpfs capsule (PreserVision AREDS-2) polyethylene glycol 3350 17 [...] appointments since June. Started with seeing a risk tech for a red spot on her lip [...] Now has (more content not included)... Normal [facility] [facility] SCRN MAMM (CAD)W/DRISS Pagan n 11-10-2024 SCRN MAMM (CAD)W/DRISS [facility] Imaging [address] [address] SCRN MAMM (CAD)W/DRISS BILAT MR#: [id number] Acct: [id number] Name: SACHI GRACE Rep #: [id number] : 1935 F 89 From: Simeon castellanos MD PCP: JOSE Streeter Status: [facility] Study: SCRN MAMM (CAD)W/DRISS BILAT Date of Exam: 11/01 Exam# [id number] Ordering Dr: Anitra Mancera [id number] MAMMOGRAPHY - BILATERAL SCREENING REASON FOR EXAM: [...] delay biopsy of a clinically suspicious abnormality. [id number] Electronically Signed: Simeon Tipton MD at 10:19 EST , CC: LEXIE Mancera; JOSE Streeter Security Nurse: Signed [facility] CNPN Telephone (FAMPWS) SACHI GRACE ([id number]) 1935 F NFR Date Time Provider Department 11/05/24 ANITRA MANCERA FAMPWS During your visit today, we recorded the following information about you: Bridgette Shaw 11/05/2024 10:13 AM Signed Patient calling wanting to make sure that the TSH, CMP, and Vitamin D lab results have been sent to Dr. Angulo. External order in scanned docs from 11/03/24. Zulma Ji MA 11/05/2024 11:04 AM Signed Unsure how to check. I can see order was scanned. I just faxed results to provider. Zulma Ji MA November 05, 2024 11:04 AM Allergies [...] Date Reviewed: 11/03/2024 Reviewed by: Anitra Mancera APRN.TARGET WORKER - Fully Assessed Reason for Visit: Release [...] bedtime as needed. Dr Dupree - vit A,C,V-Ftrj-Pbtsof (PRESERVISION AREDS) 7,160-113-100 qykq-vy-qpmj tab Take by mouth. - ACETAMINOPHEN 500 MG TAB Take one(1) tablet every four(4) to six(6) hours as needed for pain. Problem List As Of Date 11/05/2024 Noted Resolved Unspecified constipation [K59.00] 04/30/2006 03/16/2016 PEPTIC ULCER NOS [K27.9] 03/19/2007 GENERALIZED ANXIETY DIS [F41.1] Generalized osteoarthrosis, unspecified site [M* 12/23/2015 Myalgia and myositis [NHY7535] 05/22/2017 Diverticulosis of large intestine [K57.30] Disorder [...] Diagnosed: 01/01/20 (more content not included)... [facility] SACHI GRACE ([id number]) 1935 F NFR Date Time Provider Department 11/05/24 [facility] During your visit today, we recorded the following information about you: Emi Santiago 11/05/2024 11:44 AM Signed Patient is requesting medication that is : Patient last seen: 11-03-24 Future visit scheduled: yes PHARMACY: Sherrell/Anitra Navarro APRN.TARGET WORKER 11/05/2024 3:53 PM Signed Sent Allergies As [...] Date Reviewed: 11/03/2024 Reviewed by: Anitra Mancera APRN.TARGET WORKER - Fully Assessed Reason for Visit: requesting [...] bedtime as needed. Dr Dupree - vit A,C,A-Kgje-Ixiwhh (PRESERVISION AREDS) 7,160-113-100 fqrt-ux-eiut tab Take by mouth. - ACETAMINOPHEN 500 MG TAB Take one(1) tablet every four(4) to six(6) hours as needed for pain. Problem List As Of Date 11/05/2024 Noted Resolved Unspecified constipation [K59.00] 04/30/2006 03/16/2016 PEPTIC ULCER NOS [K27.9] 03/19/2007 GENERALIZED ANXIETY DIS [F41.1] Generalized osteoarthrosis, unspecified site [M* 12/23/2015 Myalgia and myositis [UER8363] 05/22/2017 Diverticulosis of large intestine [K57.30] Disorder [...] Lumbosacral spondylos (more content not included)... Normal [facility] Telephone (FAMPWS) SACHI GRACE ([id number]) 1935 F NFR Date Time Provider Department 11/05[facility]24 [facility] today, we recorded the [...] review and advise, YARY Krueger Jacqueline A, APRN.CNP 11/05/2024 10:41 AM Signed Ok. She has not tolerated gabapentin in past either. She can retry and let me know if working but had the same complaints on gabapentin Zulma Ji MA 11/05/2024 11:16 AM Signed Patient notified of provider message that it is ok to retry Gabapentin, but let her know if she has similar reaction, to call back. She is agreeable and verbalizes understanding. Zulma Ji MA November 05, 2024 11:15 AM Allergies [...] Date Reviewed: 11/03/2024 Reviewed by: Anitra Mancera APRN.TARGET WORKER - Fully Assessed Reason for Visit: Patient [...] bedtime as needed. Dr Dupree - vit A,C,R-Ovkw-Dctmrg (PRESERVISION AREDS) 7,160-113-100 faud-tq-moxm tab Take by mouth. - ACETAMINOPHEN 500 MG TAB Take one(1) tablet every four(4) to six(6) hours as needed for pain. Problem List As Of Date 11/05/2024 Noted Resolved Unspecified constipation [K59.00] 04/30/2006 03/16/2016 PEPTIC ULCER NOS [K27.9] 03/19/2007 GENERALIZED ANXIETY DIS [F41.1] Generalized osteoarthrosis, unspecified site [M* 12/23/2015 Myalgia and myositis [TLB4935] 05/22/2017 Diverticulosis of large intestine [K57.30] Disorder [...] examination [Z01.81*0 (more content not included)... Normal [facility] 25(OH)D3 [facility] 2023 25-hydroxyvitamin D3 [Mass/Vol] 39.5 ng/mL Normal 31.0-80.0 [facility] Comment on above: Order Comment: Speci men Type: BLOOD SPECIMEN Ordering Facility: [facility] Address: [address] [place] [address] Performed By: #### 2 4323-8, 85466-3, 3016-3, LIPNF #### [facility] CLIA [id number] [address] [place], [place] [address] [place] CBC W Auto Differential pane l (Bld)on 11-03-2024 Basophils (Bld) [#/Vol] 0.05 10*3/uL Normal <0.11 [facility] Comment on above: Order Comment: Speci men Type: BLOOD SPECIMEN Ordering Facility: [facility] Address: [address] [place] [address] Performed By: #### 2 4323-8, 70186-2, 6-3, LIPNF #### [facility] CLIA [id number] [address] [place] [address] [place] Basophils/100 WBC (Bld) 1.0 % Normal [facility] Comment on above: Order Comment: Speci men Type: BLOOD SPECIMEN Ordering Facility: [facility] Address: [address] [place] [address] Performed By: #### 2 4323-8, 94800-1, 3015-3, LIPNF #### [facility] CLIA [id number] [address] [place] [address] [place] Differential cell count method Nom (Bld) Auto Normal [facility] Comment on above: Order Comment: Speci men Type: BLOOD SPECIMEN Ordering Facility: [facility] Address: [address] [place] [address] Performed By: #### 2 4323-8, 13411-4, 3015-3, LIPNF #### [facility] CLIA [id number] [address] [place] [address] [place] Eosinophils (Bld) [#/Vol] 0.58 10*3/uL High <0.46 [facility] Comment on above: Order Comment: Speci men Type: BLOOD SPECIMEN Ordering Facility: [facility] Address: [address] [place] [address] Performed By: #### 2 4323-8, 00210-0, 3016-3, LIPNF #### [facility] CLIA [id number] [address] [place] [address] [place] Eosinophils/100 WBC (Bld) 11.1 % Normal [facility] Comment on above: Order Comment: Speci men Type: BLOOD SPECIMEN Ordering Facility: [facility] Address: [address] [place] [address] Performed By: #### 2 4323-8, , 3, LIPNF #### [facility] CLIA [id number] [address] [place] [address] [place] Erythrocyte distribution width (RBC) [Ratio] 14.4 % Normal 11.5-15.0 [facility] Comment on above: Order Comment: Speci men Type: BLOOD SPECIMEN Ordering Facility: [facility] Address: [address] [place] [address] Performed By: #### 2 4323-8, , 3, LIPNF #### [facility] CLIA [id number] [address] [place] [address] [place] Hematocrit (Bld) [Volume fraction] 40.0 % Normal 36.0-46.0 [facility] Comment on above: Order Comment: Speci men Type: BLOOD SPECIMEN Ordering Facility: [facility] Address: [address] [place] [address] Performed By: #### 2 4323-8, , 3, LIPNF #### [facility] CLIA [id number] [address] [place] [address] [place] Hemoglobin (Bld) [Mass/Vol] 12.4 g/dL Normal 11.5-15.5 [facility] Comment on above: Order Comment: Speci men Type: BLOOD SPECIMEN Ordering Facility: [facility] Address: [address] [place] [address] Performed By: #### 2 4323-8, , 3016-3, LIPNF #### [facility] CLIA [id number] [address] [place] [address] [place] Immature granulocytes (Bld) [#/Vol] 10*3/uL Normal <0.10 [facility] Comment on above: Order Comment: Speci men Type: BLOOD SPECIMEN Ordering Facility: [facility] Address: [address] [place] [address] Performed By: #### 2 4323-8, 26232-2, 3015-3, LIPNF #### [facility] CLIA [id number] [address] [place] [address] [place] Immature granulocytes/100 WBC (Bld) 0.2 % Normal [facility] Comment on above: Order Comment: Speci men Type: BLOOD SPECIMEN Ordering Facility: [facility] Address: [address] [place] [address] Performed By: #### 2 4323-8, , 3015-3, LIPNF #### [facility] CLIA [id number] [address] [place] [address] [place] Lymphocytes (Bld) [#/Vol] 0.92 10*3/uL Low 1.00-4.00 [facility] Comment on above: Order Comment: Speci men Type: BLOOD SPECIMEN Ordering Facility: [facility] Address: [address] [place] [address] Performed By: #### 2 4323-8, , 3015-3, LIPNF #### [facility] CLIA [id number] [address] [place] [address] [place] Lymphocytes/100 WBC (Bld) 17.6 % Normal [facility] Comment on above: Order Comment: Speci men Type: BLOOD SPECIMEN Ordering Facility: [facility] Address: [address] [place] [address] Performed By: #### 2 4323-8, 08265-6, 3015-3, LIPNF #### [facility] CLIA [id number] [address] [place] [address] [place] MCH (RBC) [Entitic mass] 27.6 pg Normal 26.0-34.0 [facility] Comment on above: Order Comment: Speci men Type: BLOOD SPECIMEN Ordering Facility: [facility] Address: [address] [place] [address] Performed By: #### 2 4323-8, , 3, LIPNF #### [facility] CLIA [id number] [address] [place] [address] [place] MCHC (RBC) [Mass/Vol] 31.0 g/dL Normal 30.5-36.0 [facility] Comment on above: Order Comment: Speci men Type: BLOOD SPECIMEN Ordering Facility: [facility] Address: [address] [place] [address] Performed By: #### 2 4323-8, , 3, LIPNF #### [facility] CLIA [id number] [address] [place] [address] [place] MCV (RBC) [Entitic vol] 88.9 fL Normal 80.0-100.0 [facility] Comment on above: Order Comment: Speci men Type: BLOOD SPECIMEN Ordering Facility: [facility] Address: [address] [place] [address] Performed By: #### 2 4323-8, , 3, LIPNF #### [facility] CLIA [id number] [address] [place] [address] [place] Monocytes (Bld) [#/Vol] 0.78 10*3/uL Normal <0.87 [facility] Comment on above: Order Comment: Speci men Type: BLOOD SPECIMEN Ordering Facility: [facility] Address: [address] [place] [address] Performed By: #### 2 4323-8, , 3015-3, LIPNF #### [facility] CLIA [id number] [address] [place] [address] [place] Monocytes/100 WBC (Bld) 14.9 % Normal [facility] Comment on above: Order Comment: Speci men Type: BLOOD SPECIMEN Ordering Facility: [facility] Address: [address] [place] [address] Performed By: #### 2 4323-8, 39616-7, 3015-3, LIPNF #### [facility] CLIA [id number] [address] [place], [place] [address] [place] Neutrophils (Bld) [#/Vol] 2.88 10*3/uL Normal 1.45-7.50 [facility] Comment on above: Order Comment: Speci men Type: BLOOD SPECIMEN Ordering Facility: [facility] Address: [address] [place] [address] Performed By: #### 2 4323-8, , 3015-3, LIPNF #### [facility] CLIA [id number] [address] [place], [place] [address] [place] Neutrophils/100 WBC (Bld) 55.2 % Normal [facility] Comment on above: Order Comment: Speci men Type: BLOOD SPECIMEN Ordering Facility: [facility] Address: [address] [place] [address] Performed By: #### 2 4323-8, , 3015-3, LIPNF #### [facility] CLIA [id number] [address] [place] [address] [place] Nucleated RBC (Bld) [#/Vol] 10*3/uL Normal <0.01 [facility] Comment on above: Order Comment: Speci men Type: BLOOD SPECIMEN Ordering Facility: [facility] Address: [address] [place] [address] Performed By: #### 2 4323-8, 37507-8, 3015-3, LIPNF #### [facility] CLIA [id number] [address] [place] [address] [place] Nucleated RBC/100 WBC (Bld) [Ratio] 0.0 /100 WBC Normal [facility] Comment on above: Order Comment: Speci men Type: BLOOD SPECIMEN Ordering Facility: [facility] Address: [address] [place] [address] Performed By: #### 2 4323-8, 26392-8, 3015-3, LIPNF #### [facility] CLIA [id number] [address] [place], [place] [address] [place] Platelet mean volume (Bld) [Entitic vol] 9.9 fL Normal 9.0-12.7 [facility] Comment on above: Order Comment: Speci men Type: BLOOD SPECIMEN Ordering Facility: [facility] Address: [address] [place] [address] Performed By: #### 2 4323-8, 29471-1, 3015-3, LIPNF #### [facility] CLIA [id number] [address] [place] [address] [place] Platelets (Bld) [#/Vol] 350 10*3/uL Normal 150-400 [facility] Comment on above: Order Comment: Speci men Type: BLOOD SPECIMEN Ordering Facility: [facility] Address: [address] [place] [address] Performed By: #### 2 4323-8, 11064-1, 3015-3, LIPNF #### [facility] CLIA [id number] [address] [place] [address] [place] RBC (Bld) [#/Vol] 4.50 10*6/uL Normal 3.90-5.20 [facility] Comment on above: Order Comment: Speci men Type: BLOOD SPECIMEN Ordering Facility: [facility] Address: [address] [place] [address] Performed By: #### 2 4323-8, 15218-5, 3, LIPNF #### [facility] CLIA [id number] [address] [place] [address] [place] WBC (Bld) [#/Vol] 5.22 10*3/uL Normal 3.70-11.00 [facility] Comment on above: Order Comment: Speci men Type: BLOOD SPECIMEN Ordering Facility: [facility] Address: [address] [place] [address] Performed By: #### 2 4323-8, 02030-0, 3, LIPNF #### [facility] CLIA [id number] [address] [place] [address] [place] CNOVon 11-03-2024 CNOV Office Visit (FAMPWS ) SACHI GRACE ([id number]) 1935 F NFR Date Time Provider Department 11/03/24 2:40 PM [facility] During your visit today, we recorded the following information about you: Pulse Respiration Blood pressure Weight 64/minute 16/minute 122/68 57.6 kg Anitra Mancera, GENERAL SURGEON.TARGET WORKER 11/03/2024 3:14 PM Signed This is a [...] supraventricular tachycardia (HCC) ablation 01/2002 ( in [place], [facility]), follows with Dr. Moreno (prn only) [...] FLX DX W/COLLJ SPEC WHEN PFRMD 10/14/2018 [facility]-R. Cebul-Repeat 5 years COLONOSCOPY SCREENING 11/15/2023 R Cebul no repeat due to age CORRECT BUNION,SIMPLE left ECHOCARDIOGRAM 10/18/2017 EGD 1985 bleeding ulcer EPS: SVT/VT ABLATION 2001 [facility] ESOPHAGOGASTRODUODENOSCOPY TRANSORAL DIAGNOSTIC 03/24/2018 EGD HERNIA REPAIR HX 09/2020 ventral hernia repair HOLTER 24 HR 10/2017 LOOP RECORDER IMPLANT 01/23/2018 NASAL/SINUS ENDOSCOPY WITH SPHENOIDOTOMY Bilateral 05/15/2019 Dr. Ruffin NASAL/SINUS ENDOSCPY W/MAXILL ANTROSTOMY Bilateral 05/15/2019 Dr. Ruffin NASAL/SINUS ENDOSCPY W/TOTAL ETHMOIDECTOMY Bilateral 05/15/2019 Dr. Ruffin OPEN REPAIR OF ROTATOR CUFF ACUTE 04/2005 Dr. Mejias PAST SURGICAL HISTORY OF 10/1997 partial colectomy ([place], [facility]) PAST SURGICAL HISTORY OF 2011 nerves [...] at bedtime as needed. Dr Dupree vit A,C,C-Iwzj-Iaymqc (PRESERVISION AREDS) 7,160-113-100 xtzj-ge-gdth tab Take by mouth. ACETAMINOPHEN 500 MG TAB Take one(1) tablet every four(4) to six(6) hours as needed for pain. No current facility-administered medications for this visit. FAMILY HISTORY Problem Relation Age of Onset Heart Mother rheumatic; 73 Colon Cancer Father dx'd age 50's Coronary Artery Disease Father age 40s, CABG (among the first done at in [place]) Stroke Sister at 58 of ruptured aneurysm Cancer Brother at 55 (tobacco, agent orange) DVT Sister Social History Tobacco Use Smoking status: Never Smokeless tobacco: Never Vaping (more content not included)... Normal [facility] Comprehensive metabolic 2000 panelon 11-03-2024 Albumin [Mass/Vol] 4.0 g/dL Normal 3.9-4.9 [facility] Comment on above: Order Comment: Speci men Type: BLOOD SPECIMEN Ordering Facility: [facility] Address: [address] [place] [address] Performed By: #### 2 4323-8, 77776-5, 3015-3, LIPNF #### [facility] CLIA [id number] [address] [place] [address] [place] ALP [Catalytic activity/Vol] 102 U/L Normal 34-123 [facility] Comment on above: Order Comment: Speci men Type: BLOOD SPECIMEN Ordering Facility: [facility] Address: [address] [place] [address] Performed By: #### 2 4323-8, 43220-3, 3015-3, LIPNF #### [facility] CLIA [id number] [address] [place] [address] [place] ALT [Catalytic activity/Vol] 17 U/L Normal 7-38 [facility] Comment on above: Order Comment: Speci men Type: BLOOD SPECIMEN Ordering Facility: [facility] Address: [address] [place] [address] Performed By: #### 2 4323-8, 38288-4, 3015-3, LIPNF #### [facility] CLIA [id number] [address] [place] [address] [place] Anion gap [Moles/Vol] 11 mmol/L Normal 8-15 [facility] Comment on above: Order Comment: Speci men Type: BLOOD SPECIMEN Ordering Facility: [facility] Address: [address] [place] [address] Performed By: #### 2 4323-8, 55723-3, 3015-3, LIPNF #### [facility] CLIA [id number] [address] [place] [address] [place] AST [Catalytic activity/Vol] 25 U/L Normal 13-35 [facility] Comment on above: Order Comment: Speci men Type: BLOOD SPECIMEN Ordering Facility: [facility] Address: [address] [place] [address] Performed By: #### 2 4323-8, 94878-9, 3016-3, LIPNF #### [facility] CLIA [id number] [address] [place] [address] [place] Bilirubin [Mass/Vol] 0.3 mg/dL Normal 0.2-1.3 [facility] Comment on above: Order Comment: Speci men Type: BLOOD SPECIMEN Ordering Facility: [facility] Address: [address] [place] [address] Performed By: #### 2 4323-8, 72147-1, 3016-3, LIPNF #### [facility] CLIA [id number] [address] [place] [address] [place] Calcium [Mass/Vol] 9.4 mg/dL Normal 8.5-10.2 [facility] Comment on above: Order Comment: Speci men Type: BLOOD SPECIMEN Ordering Facility: [facility] Address: [address] [place] [address] Performed By: #### 2 4323-8, 77667-7, 3016-3, LIPNF #### [facility] CLIA [id number] [address] [place] [address] [place] Chloride [Moles/Vol] 98 mmol/L Normal 98-107 [facility] Comment on above: Order Comment: Speci men Type: BLOOD SPECIMEN Ordering Facility: [facility] Address: [address] [place] [address] Performed By: #### 2 4323-8, 27355-7, 3016-3, LIPNF #### [facility] CLIA [id number] [address] [place] [address] [place] CO2 [Moles/Vol] 27 mmol/L Normal 22-30 [facility] Comment on above: Order Comment: Speci men Type: BLOOD SPECIMEN Ordering Facility: [facility] Address: [address] [place] [address] Performed By: #### 2 4323-8, 54542-0, 3016-3, LIPNF #### [facility] CLIA [id number] [address] [place] [address] [place] Creatinine [Mass/Vol] 0.62 mg/dL Normal 0.58-0.96 [facility] Comment on above: Order Comment: Speci men Type: BLOOD SPECIMEN Ordering Facility: [facility] Address: [address] [place] [address] Performed By: #### 2 4323-8, 56058-3, 6-3, LIPNF #### [facility] CLIA [id number] [address] [place] [address] [place] Creatinine and Glomerular filtration rate.predicted panel (S/P/Bld) 85 mL/min/1.73m??? Normal >=60 [facility] Comment on above: Order Comment: Pearl colorado Type: BLOOD SPECIMEN Ordering Facility: [facility] Address: [address] [place] [address] Result Comment: Solitario mated Glomerular Filtration Rate [...] reflect actual GFR. Performed By: #### 2 4323-8, 80325-7, 3015-3, LIPNF #### [facility] CLIA [id number] [address] [place] [address] [place] Glucose [Mass/Vol] 87 mg/dL Normal 74-99 [facility] Comment on above: Order Comment: Pearl colorado Type: BLOOD SPECIMEN Ordering Facility: [facility] Address: [address] [place] [address] Result Comment: The [place] Diabetes Association (ADA) provides guidance for cutoff [...] Standards of Medical Care in Diabetes 2016, [place] Diabetes Association. Diabetes Care. 2016.39(Suppl 1). Performed By: #### 2 4323-8, 52031-4, 3016-3, LIPNF #### [facility] CLIA [id number] [address] [place] [address] [place] Potassium [Moles/Vol] 4.6 mmol/L Normal 3.7-5.1 [facility] Comment on above: Order Comment: Speci stanislav Type: BLOOD SPECIMEN Ordering Facility: [facility] Address: [address] [place] [address] Performed By: #### 2 4323-8, 29630-7, 3016-3, LIPNF #### [facility] CLIA [id number] [address] [place] [address] [place] Protein [Mass/Vol] 7.1 g/dL Normal 6.3-8.0 [facility] Comment on above: Order Comment: Pearl colorado Type: BLOOD SPECIMEN Ordering Facility: [facility] Address: [address] [place] [address] Performed By: #### 2 4323-8, 65823-2, 3016-3, LIPNF #### [facility] CLIA [id number] [address] [place] [address] [place] Sodium [Moles/Vol] 136 mmol/L Normal 136-144 [facility] Comment on above: Order Comment: Kathyai men Type: BLOOD SPECIMEN Ordering Facility: [facility] Address: [address] [place] [address] Performed By: #### 2 4323-8, 14154-1, 3016-3, LIPNF #### [facility] CLIA [id number] [address] [place] [address] [place] Urea nitrogen [Mass/Vol] 18 mg/dL Normal 7-21 [facility] Comment on above: Order Comment: Speci men Type: BLOOD SPECIMEN Ordering Facility: [facility] Address: [address] [place] [address] Performed By: #### 2 4323-8, 75897-5, 3016-3, LIPNF #### [facility] CLIA [id number] [address] [place] [address] [place] HbA1c (Bld)on 11-03-2024 Average glucose Estimated from glycated hemoglobin (Bld) [Mass/Vol] 105 mg/dL Normal [facility] Comment on above: Order Comment: [facility] Type: BLOOD SPECIMEN Ordering Facility: [facility] Address: [address] [place] [address] Result Comment: eAG: (Estimated average glucose) is a calculated value from HgbA1c and is national account representative of the average blood glucose level in the last 2-3 month period. Performed By: #### 5 5454-3 #### [facility] CLIA [id number] [address] [place] [address] [place] HbA1c (Bld) [Mass fraction] 5.3 % Normal 4.3-5.6 [facility] Comment on above: Order Comment: [facility] Type: BLOOD SPECIMEN Ordering Facility: [facility] Address: [address] [place] [address] Result Comment: Amer ican Diabetes Association guidelines indicate that patients with HgbA1c in the range 5.7-6.4% are at increased risk for development of diabetes, and intervention by lifestyle modification may be beneficial. HgbA1c greater or equal to 6.5% is considered diagnostic of diabetes. Performed By: #### 5 5454-3 #### [facility] CLIA [id number] OF NURYS LIPID PANEL, NONFASTINGon Cholesterol [Mass/Vol] 189 mg/dL Normal <200 [facility] Comment on above: Order Comment: Pearl [place]ado Type: BLOOD SPECIMEN Ordering Facility: [facility] Address: [address] [place] [address] Result Comment: <200 mg/dL, Desirable 200-239 mg/dL, Borderline high >239 mg/dL, High Performed By: #### 2 4323-8, 14589-3, 3016-3, LIPNF #### [facility] CLIA [id number] [address] [place] [address] [place] HDL CHOLESTEROL, NF 68 mg/dL Normal >39 [facility] Comment on above: Order Comment: Pearl colorado Type: BLOOD SPECIMEN Ordering Facility: [facility] Address: [address] [place] [address] Result Comment: 40-5 9 mg/dL, Acceptable >59 mg/dL, High: Negative risk factor for coronary heart disease <40 mg/dL, Low: Positive risk factor for coronary heart disease Performed By: #### 2 4323-8, 45533-7, 3016-3, LIPNF #### [facility] CLIA [id number] [address] [place] [address] [place] LDL CHOLESTEROL, NF 101 mg/dL High <100 [facility] Comment on above: Order Comment: Pearl men Type: BLOOD SPECIMEN Ordering Facility: [facility] Address: [address] [place] [address] Result Comment: <100 mg/dL, Optimal 100-129 mg/dL, Near optimal/above optimal 130-159 mg/dL, Borderline high 160-189 mg/dL, High >189 mg/dL, Very high Secondary prevention optimal LDL Cholesterol levels are recommended to be < 70 mg/dL Performed By: #### 2 4323-8, 21131-3, 3016-3, LIPNF #### [facility] CLIA [id number] [address] [place] [address] [place] LDL/HDL RATIO, NF 1.49 mg/dL Normal <2.54 [facility] Comment on above: Order Comment: Pearl colorado Type: BLOOD SPECIMEN Ordering Facility: [facility] Address: [address] [place] [address] Result Comment: Yasir dodson: 1. National Cholesterol Education Program ATP III Guideline At-A-Glance Quick Desk Reference: National Heart, Lung, and Blood [place]. National Institutes of Health. 2001: NIH Publication No. 01-3305. 2. An International Atherosclerosis Society position paper: global recommendations for the management of dyslipidemia: executive summary, Atherosclerosis. 2014: 232(2):410-413. Performed By: #### 2 3-8, 21874-6, 6-3, LIPNF #### [facility] CLIA [id number] [address] [place] [address] [place] NON HDL CHOL, NF 121 mg/dL Normal <130 [facility] Comment on above: Order Comment: Pearl colorado Type: BLOOD SPECIMEN Ordering Facility: [facility] Address: [address] [place] [address] Result Comment: <130 mg/dL, Optimal 130-159 mg/dL, Near optimal/above optimal 160-189 mg/dL, Borderline high 190-219 mg/dL, High >219 mg/dL, Very high Secondary prevention optimal non HDL Cholesterol levels are recommended to be <100 mg/dL Performed By: #### 2 4323-8, 90655-5, 6-3, LIPNF #### [facility] CLIA [id number] [address] [place] [address] [place] T CHOL/HDL RATIO NF 2.78 mg/dL Normal <5.10 [facility] Comment on above: Order Comment: Pearl colordao Type: BLOOD SPECIMEN Ordering Facility: [facility] Address: [address] [place] [address] Performed By: #### 2 4323-8, 78143-9, 6-3, LIPNF #### [facility] CLIA [id number] [address] [place] [address] [place] TRIGLYCERIDES, NF 98 mg/dL Normal <150 [facility] Comment on above: Order Comment: Speci men Type: BLOOD SPECIMEN Ordering Facility: [facility] Address: [address] [place] [address] Result Comment: <150 mg/dL, Normal 150-199 mg/dL, Borderline high 200-499 mg/dL, High >499 mg/dL, Very high Performed By: #### 2 4323-8, 91245-3, 3016-3, LIPNF #### [facility] CLIA [id number] [address] [place] [address] [place] VLDL CHOLESTEROL, NF 20 mg/dL Normal <30 [facility] Comment on above: Order Comment: Speci men Type: BLOOD SPECIMEN Ordering Facility: [facility] Address: [address] [place] [address] Performed By: #### 2 4323-8, 43930-6, 3016-3, LIPNF #### [facility] CLIA [id number] [address] [place] [address] [place] Magnesium SerPl-mCncon 11-03 Magnesium [Mass/Vol] 2.3 mg/dL Normal 1.7-2.3 [facility] Comment on above: Order Comment: Speci men Type: BLOOD SPECIMEN Ordering Facility: [facility] Address: [address] [place] [address] Performed By: #### 2 4323-8, 87809-3, 3016-3, LIPNF #### [facility] CLIA [id number] [address] [place] [address] [place] TSH SerPl-aCncon 11-03-2024 TSH Qn 3.220 m[IU]/L Normal 0.270-4.200 [facility] Comment on above: Order Comment: Speci men Type: BLOOD SPECIMEN Ordering Facility: [facility] Address: [address] [place] [address] Performed By: #### 2 4323-8, 81881-4, 3016-3, LIPNF #### [facility] CLIA [id number] [address] [place], [place] [id number] [place] Vit B12 SerPl-ncon 024 Cobalamin (Vitamin B12) [Mass/Vol] 843 pg/mL Normal 232-1245 [facility] Comment on above: Order Comment: Speci men Type: BLOOD SPECIMEN Ordering Facility: [facility] Address: [address] [place] [address] Performed By: #### 2 4323-8, 66806-4, 3016-3, LIPNF #### [facility] CLIA [id number] [address] [place] [address] [place] CNPLydia 11-02-2024 CNPN Telephone (FAMPWS) SACHI GRACE ([id number]) 1935 F NFR Date Time Provider Department 11/02[facility] During your visit today, we recorded the following information about you: Kevin Vang RN 11/02/2024 4:55 PM Signed Patient reports she's had a sore burning mouth since July. 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 Reports she's [...] which she is allergic to. 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 States she couldn't even see the spot, and the risk tech removed a spot the size of a [...] Date Reviewed: 08/21/2024 Reviewed by: Anitra Mancera APRN.TARGET WORKER - Fully Assessed Reason for Visit: Sore [...] bedtime as needed. Dr Dupree - vit A,C,W-Tdmb-Jpnhbi ([facility]) 7,160-113-100 hiwb-wa-hxuo tab Take by mouth. - ACETAMINOPHEN 500 MG TAB Take one(1) tablet every four(4) to six(6) hours as needed for pain. Problem List As Of Date 11/02/2024 Noted Resolved Unspecified constipation [K59.00] 04/30/2006 03/16/2016 PEPTIC ULCER NOS [K27.9] 03/19/2007 GENERALIZED ANXIETY DIS [F41.1] Generalized osteoarthrosis, unspecified site [M* 12/23/2015 Myalgia and myositis [RHT8724] 05/22/2017 Diverticulosis of large intestine [K57.30] Disorder [...] [*10/08/2023 Diagn (more content not included)... Normal [facility] SACHI GR[facility] ([id number]) 1935 F NFR Date Time Provider Department 09/16/24 [facility] During your visit today, we recorded the following information about you: Soha Azevedo LPN 09/16/2024 9:37 AM Signed Pt. is taking Gabapentin for burning mouth syndrome. She feels dizziness and palpitations at times. Should she continue to take this. Not really helping with pain. Seeing a specialist in 3 weeks. Please advise. Anitra Mancera APRN.TARGET WORKER 09/17/2024 7:58 AM Signed Yes. Go ahead and stop. We can't reduce it if it hasn't helped. Sorry. Babulski, Alix, YARY 09/17/2024 8:29 AM Signed Pt called [...] Date Reviewed: 08/21/2024 Reviewed by: Anitra Mancera APRN.TARGET WORKER - Fully Assessed Reason for Visit: Patient Question [1477] Prescriptions as of 09/17/2024 - Vit B [...] at bedtime as needed. Dr Dupree - gaurav A,C,Y-Hwiz-Zvtsnh ([facility]) 7,160-113-100 dkdt-xx-arez tab Take by mouth. - ACETAMINOPHEN 500 MG TAB Take one(1) tablet every four(4) to six(6) hours as needed for pain. Problem List As Of Date 09/16/2024 Noted Resolved Unspecified constipation [K59.00] 04/30/2006 03/16/2016 PEPTIC ULCER NOS [K27.9] 03/19/2007 GENERALIZED ANXIETY DIS [F41.1] Generalized osteoarthrosis, unspecified site [M* 12/23/2015 Myalgia and myositis [JOQ1893] 05/22/2017 Diverticulosis of large intestine [K57.30] Disorder [...] surgical r (more content not included)... [facility] C[facility]N Telephone (FAMPWS) SACHI GRACE ([id number]) 1935 F NFR Date Time Provider Department 09/09/24 [facility] During your visit today, we recorded the following information about you: Omar, Jenn 09/09/2024 2:37 PM Signed Pt called states she gets her Mammograms done at the [facility]. She would like the order sent over there. Lily Soriano LPN 09/09/2024 3:07 PM Signed Please file so we can route to [facility]. Anitra Mancera APRN.CNP 09/10/2024 7:53 AM Signed Mammogram ordered Jeyson Snowden MA 09/10/2024 9:22 AM Signed Order faxed to [facility] [phone] Patient notified via voicemail Jeyson Snowden MA [...] Date Reviewed: 08/21/2024 Reviewed by: Anitra Mancera APRN.TARGET WORKER - Fully Assessed Reason for Visit: Orders [681] Primary Visit Diagnosis:Encounter for screening mammogram for malignant neoplasm of breast [Z12.31] Order(s):KIP SCREENING W DRISS [[id number]] Order #: [id number] FUTURE Prescriptions as of 09/10/2024 - gabapentin [...] bedtime as needed. Dr Dupree - vit A,C,M-Yidw-Dwkgrn ([facility]) 7,160-113-100 shku-ik-vpti tab Take by mouth. - ACETAMINOPHEN 500 MG TAB Take one(1) tablet every four(4) to six(6) hours as needed for pain. Problem List As Of Date 09/09/2024 Noted Resolved Unspecified constipation [K59.00] 04/30/2006 03/16/2016 PEPTIC ULCER NOS [K27.9] 03/19/2007 GENERALIZED ANXIETY DIS [F41.1] Generalized osteoarthrosis, unspecified site [M* 12/23/2015 Myalgia and myositis [GFH3874] 05/22/2017 Diverticulosis of large intestine [K57.30] Disorder [...] History o (more content not included)... Normal [facility] CNOVon 08-21-2024 CNOV Office Visit (FAMPWS ) SACHI GRACE ([id number]) 1935 F NFR Date Time Provider Department 08/21/24 9:20 AM ANITRA MANCERA During your visit today, we recorded the following information about you: Pulse Respiration Blood pressure Weight 68/minute 16/minute 110/68 58.2 kg Anitra Mancera APRN.RUSTY 08/21/2024 9:45 AM Signed This is a [...] supraventricular tachycardia (HCC) ablation 01/2002 ( in [facility]), follows with Dr. Moreno (prn only) [...] FLX DX W/COLLJ SPEC WHEN PFRMD 10/14/2018 [facility]-R. Cebul-Repeat 5 years COLONOSCOPY SCREENING 11/15/2023 R Cebul no repeat due to age CORRECT BUNION,SIMPLE left ECHOCARDIOGRAM 10/18/2017 EGD 1985 bleeding ulcer EPS: SVT/VT ABLATION 2001 [facility] ESOPHAGOGASTRODUODENOSCOPY TRANSORAL DIAGNOSTIC 03/24/2018 EGD HERNIA REPAIR HX 09/2020 ventral hernia repair HOLTER 24 HR 10/2017 LOOP RECORDER IMPLANT 01/23/2018 NASAL/SINUS ENDOSCOPY WITH SPHENOIDOTOMY Bilateral 05/15/2019 Dr. Ruffin NASAL/SINUS ENDOSCPY W/MAXILL ANTROSTOMY Bilateral 05/15/2019 Dr. Ruffin NASAL/SINUS ENDOSCPY W/TOTAL ETHMOIDECTOMY Bilateral 05/15/2019 Dr. Ruffin OPEN REPAIR OF ROTATOR CUFF ACUTE 04/2005 Dr. Mejias PAST SURGICAL HISTORY OF 10/1997 partial colectomy ([place], [facility]) PAST SURGICAL HISTORY OF 2011 nerves [...] at bedtime as needed. Dr Dupree vit A,C,O-Qswq-Qzoepl ([facility]) 7,160-113-100 kbdk-eh-zpuu tab Take by mouth. ACETAMINOPHEN 500 MG [...] CABG (among the first done at in [place]) Stroke Sister at 58 of ruptured aneurysm Cancer Brother at 55 (tobacco, agent orange) (more content not included)... Normal [facility] CNOVon 08-12-2024 CNOV Office Visit (GSTNOR ) SACHI GRACE ([id number]) 1935 F NFR Date Time Provider Department 08/12/24 1:50 PM LINDSEY STAPLETONR During your visit today, we recorded the [...] at bedtime as needed. Dr Dupree vit A,C,J-Iaxx-Cqsooy ([facility]) 7,160-113-100 ckvh-qo-mkia tab Take by mouth. ACETAMINOPHEN 500 MG [...] goiter Comment: (more content not included)... Normal [facility] TSH SerPl-aCncon 07-29-2024 TSH Qn 1.820 m[IU]/L Normal 0.270-4.200 [facility] Comment on above: Order Comment: Speci men Type: BLOOD SPECIMENOrdering Facility: [facility] Address: [address] [place] [address] Performed By: #### 3 016-3 ####[facility] [id number] [place] [address] [place] CA 125on 07-09-2024 Cancer Ag 125 Qn 10 [arb'U]/mL NINF - 39 U/mL [facility] Comment on above: CA 125 test methodol ogdeanne used is the Electrochemiluminescence Immunoassay by [facility] [...] (CA 125 II) [package insert V 1.0 Portuguese]. [facility], [place], [place] (September 2015) Cancer Ag 125 Qnon Interpretation and review of laboratory results Normal [facility] CNOVon 07-08-2024 CNOV Office Visit (OBGYWM ) SACHI GRACE ([id number]) 1935 F NFR Date Time Provider Department 07/08/24 2:00 PM SHOSHANA CHAMBERS OBGYWM During your visit today, we recorded the following information about you: Blood pressure Weight 112/74 58.5 kg Shoshana Chambers APRN.CNM 07/17/2024 8:29 AM Signed Sachi Grace is [...] L5 SAB0 IAB0 Ectopic0 Multiple0 Live Births0 Weight Analyst History LMP: Postmenopausal Age at Menarche: Age at First : Age at Menopause: Weight Analyst History Comments: Sexual Activity: Not Asked; No [...] supraventricular tachycardia (HCC) Comment: ablation 01/2002 (Dr. joesph pandey, [facility]), follows with Dr. Moreno (prn only) [...] FLX DX W/COLLJ SPEC WHEN PFRMD Comment: HANY Tabares-Repeat 5 years 11/15/2023: COLONOSCOPY SCREENING Comment: R Cebul no repeat due to age No date: CORRECT BUNION,SIMPLE Comment: left 10/18/2017: ECHOCARDIOGRAM 1985: EGD Comment: bleeding ulcer 2001: EPS: SVT/VT ABLATION Comment: [facility] 03/24/2018: ESOPHAGOGASTRODUODENOSCOPY TRANSORAL DIAGNOSTIC Comment: EGD 09/2020: [...] SURGICAL HISTORY OF Comment: partial colectomy ([place], [facility]) 2011: PAST SURGICAL HISTORY OF Comment: nerves cut in my back 04/24/2010: STEREO LOC FOR CORE BRST BX LT Comment: left 12/17/2017: STRESS TEST No date: TONSILLECTOMY PRIMARY/SECONDARY FAMILY HISTORY Problem Relation Age of Onset Heart Mother rheumatic; 73 Colon Cancer Father dx'd age 50's Coronary Artery Disease Father age 40s, CABG (among the first done at in [place]) Stroke Sister at 58 of ruptured aneurysm [...] by mouth (more content not included)... Normal [facility] Cancer Ag125 SerPl-aCncon Cancer Ag 125 Qn 10 [arb'U]/mL Normal <39 [facility] Comment on above: Order Comment: Speci men Type: BLOOD SPECIMEN Ordering Facility: [facility] Address: [address] [place] [address] Result Comment: CA 1 25 test methodology [...] (CA 125 II) [package insert V 1.0 Portuguese]. [facility], [place], [place] (September 2015) Performed By: #### 2 4323-8, 06351-3, 3016-3, LIPNF #### [facility] CLIA [id number] [address] [place] [address] [place] CBC W Auto Differential pane l (Bld)on 06-16-2024 Basophils (Bld) [#/Vol] 0.06 10*3/uL [facility] Basophils/100 WBC (Bld) 1.3 % [facility] Differential cell count method Nom (Bld) Auto [facility] Eosinophils (Bld) [#/Vol] 0.52 10*3/uL High [facility] Eosinophils/100 WBC (Bld) 11.2 % [facility] Erythrocyte distribution width (RBC) [Ratio] 15.1 % High 11.5 - 15.0 % [facility] Hematocrit (Bld) [Volume fraction] 41.1 % 36.0 - 46.0 % [facility] Hemoglobin (Bld) [Mass/Vol] 13.0 g/dL 11.5 - 15.5 g/dL [facility] Immature granulocytes (Bld) [#/Vol] [facility] Immature granulocytes/100 WBC (Bld) 0.2 % [facility] Interpretation and review of laboratory results Abnormal [facility] Lymphocytes (Bld) [#/Vol] 0.77 10*3/uL Low [facility] Lymphocytes/100 WBC (Bld) 16.6 % [facility] MCH (RBC) [Entitic mass] 28.4 pg 26.0 - 34.0 pg [facility] MCHC (RBC) [Mass/Vol] 31.6 g/dL 30.5 - 36.0 g/dL [facility] MCV (RBC) [Entitic vol] 89.9 fL 80.0 - 100.0 fL [facility] Monocytes (Bld) [#/Vol] 0.74 10*3/uL NINF [facility] Monocytes/100 WBC (Bld) 15.9 % [facility] Neutrophils (Bld) [#/Vol] 2.55 10*3/uL [facility] Neutrophils/100 WBC (Bld) 54.8 % [facility] Nucleated RBC (Bld) [#/Vol] NINF [facility] Nucleated RBC/100 WBC (Bld) [Ratio] 0.0 % /100 WBC [facility] Platelet mean volume (Bld) [Entitic vol] 10.0 fL 9.0 - 12.7 fL [facility] Platelets (Bld) [#/Vol] 356 10*3/uL [facility] RBC (Bld) [#/Vol] 4.57 10*6/uL 3.90 - 5.2 0 m/uL [facility] WBC (Bld) [#/Vol] 4.65 10*3/uL [facility] US Pelvison 06-16-2024 Radiology Study observation (narrative) [facility] IMPRESSION: Limited examination due to small uterine size and overlying bowel gas shadowing. No mass lesion is identified. The right ovary may be prominent in size without focal lesion. The left ovary is not visualized. Security Nurse: [facility] Transcribe Date/Time: Jun 16 2024 2:10P Dictated by : GIRISH RANGEL MD This examination was interpreted and the report reviewed and electronically signed by: GIRISH RANGEL MD on Jun 16 2024 2:13PM [facility] DIVISION OF RADIOLOGY * * [...] without focal abnormality. [facility] * * *Final Report* * [...] lesion. The left ovary is not visualized. Security Nurse: [facility] Transcribe Date/Time: Jun 16 2024 2:10P Dictated by : GIRISH RANGEL MD This examination was interpreted and the report reviewed and electronically signed by: GIRISH RANGEL MD on Jun 16 2024 2:13PM [facility] US PelvisOrdered By: [facility] Pro vider on 06-16-2024 [facility] XR Abdomen Supine and Uprigh ton 03-27-2024 IMPRESSION: NO ACUTE ABDOMINAL PATHOLOGY VISUALIZED Security Nurse: [facility] Transcribe Date/Time: Mar 27 2024 4:22P Dictated by : ARCELIA DENISE MD This examination was interpreted and the report reviewed and electronically signed by: ARCELIA DENISE MD on Mar 27 2024 4:23PM [facility] DIVISION OF RADIOLOGY * * [...] acute osseous abnormalities. DIVISION OF RADIOLOGY Provider, [facility] - 03/27/2024 * * *Final Report* * [...] IMPRESSION IMPRESSION: NO ACUTE ABDOMINAL PATHOLOGY VISUALIZED Security Nurse: [facility] Transcribe Date/Time: Mar 27 2024 4:22P Dictated by : ARCELIA DENISE MD This examination was interpreted and the report reviewed and electronically signed by: ARCELIA DENISE MD on Mar 27 2024 4:23PM EST [facility] XR Abdomen Supine and Uprigh tOrdered By: [facility] Provider on 03-27-2024 [facility] XR Abdomen Supine and Uprigh ton 03-24-2024 Radiology Study observation (narrative) [facility] EMG(NEURO/NI)on 09-23-2023 [facility] CBC W Auto Differential pane l (Bld)on 07-02-2023 Basophils (Bld) [#/Vol] 0.08 10*3/uL <0.11 k/uL [facility] Basophils/100 WBC (Bld) 1.2 % [facility] Differential cell count method Nom (Bld) Auto [facility] Eosinophils (Bld) [#/Vol] 0.34 10*3/uL <0.46 k/uL [facility] Eosinophils/100 WBC (Bld) 5.3 % [facility] Erythrocyte distribution width (RBC) [Ratio] 14.8 % 11.5 - 15.0 % [facility] Hematocrit (Bld) [Volume fraction] 39.9 % 36.0 - 46.0 % [facility] Hemoglobin (Bld) [Mass/Vol] 12.6 g/dL 11.5 - 15.5 g/dL [facility] Immature granulocytes (Bld) [#/Vol] 0.03 10*3/uL <0.10 k/uL [facility] Immature granulocytes/100 WBC (Bld) 0.5 % [facility] Lymphocytes (Bld) [#/Vol] 0.80 10*3/uL Low 1.00 - 4.00 k/uL [facility] Lymphocytes/100 WBC (Bld) 12.4 % [facility] MCH (RBC) [Entitic mass] 27.9 pg 26.0 - 34.0 pg [facility] MCHC (RBC) [Mass/Vol] 31.6 g/dL 30.5 - 36.0 g/dL [facility] MCV (RBC) [Entitic vol] 88.5 fL 80.0 - 100.0 fL [facility] Monocytes (Bld) [#/Vol] 0.72 10*3/uL <0.87 k/uL [facility] Monocytes/100 WBC (Bld) 11.2 % [facility] Neutrophils (Bld) [#/Vol] 4.48 10*3/uL 1.45 - 7.50 k/uL [facility] Neutrophils/100 WBC (Bld) 69.4 % [facility] Nucleated RBC (Bld) [#/Vol] <0.01 k/uL [facility] Nucleated RBC/100 WBC (Bld) [Ratio] 0.0 /100 WBC [facility] Platelet mean volume (Bld) [Entitic vol] 9.0 fL 9.0 - 12.7 fL [facility] Platelets (Bld) [#/Vol] 431 10*3/uL High 150 - 400 k/uL [facility] RBC (Bld) [#/Vol] 4.51 10*6/uL 3.90 - 5.2 0 m/uL [facility] WBC (Bld) [#/Vol] 6.45 10*3/uL 3.70 - 11.00 k/uL [facility] Comprehensive metabolic 2000 panelon 07-02-2023 Albumin [Mass/Vol] 3.8 g/dL Low 3.9 - 4.9 g/dL [facility] ALP [Catalytic activity/Vol] 109 U/L 34 - 123 U/L [facility] ALT [Catalytic activity/Vol] 7 U/L 7 - 38 U/L [facility] Anion gap [Moles/Vol] 12 mmol/L 9 - 18 mmol/L [facility] AST [Catalytic activity/Vol] 16 U/L 13 - 35 U/L [facility] Bilirubin [Mass/Vol] 0.5 mg/dL 0.2 - 1.3 mg/dL [facility] Calcium [Mass/Vol] 9.7 mg/dL 8.5 - 10. 2 mg/dL [facility] Chloride [Moles/Vol] 101 mmol/L 97 - 105 mmol/L [facility] CO2 [Moles/Vol] 26 mmol/L 22 - 30 mmol/L [facility] Creatinine [Mass/Vol] 0.58 mg/dL 0.58 - 0.96 mg/dL [facility] Estimated Glomerular Filtration Rate 88 mL/min/1.73m >=60 mL/min/1.73 m [facility] Glucose [Mass/Vol] 107 mg/dL High 74 - 99 mg/dL [facility] Potassium [Moles/Vol] 4.1 mmol/L 3.7 - 5.1 mmol/L [facility] Protein [Mass/Vol] 7.1 g/dL 6.3 - 8.0 g/dL [facility] Sodium [Moles/Vol] 139 mmol/L 136 - 144 mmol/L [facility] Urea nitrogen [Mass/Vol] 14 mg/dL 7 - 21 mg/dL [facility] ESR Westergren method (Bld) [Velocity]on 07-02-2023 ESR (Bld) [Velocity] 57 mm/h High 0 - 20 mm/hr [facility] URIC ACID BLOODon 07-02-2023 Urate [Mass/Vol] 3.8 mg/dL 2.5 - 6.6 mg/dL [facility] XR Abdomen Supine and Uprigh ton 05-31-2023 IMPRESSION: Nonspecific nonobstructive bowel gas pattern. Security Nurse: [facility] Transcribe Date/Time: May 31 2023 8:58P Dictated by : DEMETRIS CARR MD This examination was interpreted and the report reviewed and electronically signed by: DEMETRIS CARR MD on May 31 2023 9:08PM [facility] DIVISION OF RADIOLOGY * * [...] normal. DIVISION OF RADIOLOGY Provider, Ant Lopez [facility] - 05/31/2023 * * *Final Report* * [...] IMPRESSION IMPRESSION: Nonspecific nonobstructive bowel gas pattern. Security Nurse: [facility] Transcribe Date/Time: May 31 2023 8:58P Dictated by : DMEETRIS CARR MD This examination was interpreted and the report reviewed and electronically signed by: DEMETRIS CARR MD on May 31 2023 9:08PM EST [facility] XR Abdomen Supine and Uprigh tOrdered By: Ccf Provider on 05-31-2023 [facility] XR Abdomen Supine and Uprigh ton 05-28-2023 Radiology [facility]ative[facility] 3 Viewson IMPRESSION: Lumbar s pine degenerative changes as described above. Security Nurse: [facility] Transcribe Date/Time: Nov 14 2022 4:39P Dictated by : SONALI GARCIA MD This examination was interpreted and the report reviewed and electronically signed by: SONALI GARCIA MD on Nov 14 2022 4:42PM [facility] DIVISION OF RADIOLOGY * * [...] spine are presented. FINDINGS: There are five zyx-qju-gntocoq lumbar vertebrae. No acute fracture seen. There [...] bones are osteopenic. DIVISION OF RADIOLOGY Provider, [facility] - 11/14/2022 * * *Final Report* * [...] spine are presented. FINDINGS: There are five ntv-unm-sjbmome lumbar vertebrae. No acute fracture seen. There [...] Lumbar spine degenerative changes as described above. Security Nurse: BINTA Transcribe Date/Time: Nov 14 2022 4:39P Dictated by : SONALI GARCIA MD This examination was interpreted and the report reviewed and electronically signed by: SONALI GARCIA MD on Nov 14 2022 4:42PM EST [facility] XR Lumbar spine 3 ViewsOrder ed By: Ccf Provider on 11-14-2022 [facility] XR Lumbar spine 3 Viewson Radiology Study observation (narrative) [facility] FECAL OCCULT BLOOD TESTon Lower GI hemoglobin IA Ql (Stl) Negative Negative [facility] XR CHEST 2V FRONTAL/LATon [facility] XR Chest PA and Lateralon IMPRESSION: No acute radiographic abnormality. Security Nurse: PSCB Transcribe Date/Time: Oct 01 2022 4:51P [...] spine. Osteopenia. Stable. DIVISION OF RADIOLOGY Provider, [facility] - 10/01/2022 * * *Final Report* * [...] Stable. IMPRESSION IMPRESSION: No acute radiographic abnormality. Security Nurse: PSCB Transcribe Date/Time: Oct 01 2022 4:51P Dictated by : MARIA ELENA DRAPER MD This examination was interpreted and the report reviewed and electronically signed by: MARIA ELENA DRAPER MD on Oct 01 2022 4:51PM EST [facility] Radiology Study observation (narrative) [facility] XR Chest PA and LateralOrder ed By: Ccf Provider on 10-01-2022 [facility] CBC W Auto Differential pane l (Bld)on 08-14-2022 Abs Immature Gran <0.10 k/uL [facility] Basophils (Bld) [#/Vol] 0.06 10*3/uL <0.11 k/uL [facility] Basophils/100 WBC (Bld) 1.1 % [facility] Differential cell count method Nom (Bld) Auto [facility] Eosinophils (Bld) [#/Vol] 0.41 10*3/uL <0.46 k/uL [facility] Eosinophils/100 WBC (Bld) 7.2 % [facility] Erythrocyte distribution width (RBC) [Ratio] 15.5 % High 11.5 - 15.0 % [facility] Hematocrit (Bld) [Volume fraction] 37.5 % 36.0 - 46.0 % [facility] Hemoglobin (Bld) [Mass/Vol] 12.3 g/dL 11.5 - 15.5 g/dL [facility] Immature Gran % 0.2 % [facility] Lymphocytes (Bld) [#/Vol] 0.92 10*3/uL Low 1.00 - 4.00 k/uL [facility] Lymphocytes/100 WBC (Bld) 16.2 % [facility] MCH (RBC) [Entitic mass] 28.3 pg 26.0 - 34.0 pg [facility] MCHC (RBC) [Mass/Vol] 32.8 g/dL 30.5 - 36.0 g/dL [facility] MCV (RBC) [Entitic vol] 86.4 fL 80.0 - 100.0 fL [facility] Monocytes (Bld) [#/Vol] 0.77 10*3/uL <0.87 k/uL [facility] Monocytes/100 WBC (Bld) 13.6 % [facility] Neutrophils (Bld) [#/Vol] 3.51 10*3/uL 1.45 - 7.50 k/uL [facility] Neutrophils/100 WBC (Bld) 61.7 % [facility] Nucleated RBC (Bld) [#/Vol] <0.01 k/uL [facility] Nucleated RBC/100 WBC (Bld) [Ratio] 0.0 /100 WBC [facility] Platelet mean volume (Bld) [Entitic vol] 9.2 fL 9.0 - 12.7 fL [facility] Platelets (Bld) [#/Vol] 344 10*3/uL 150 - 400 k/uL [facility] RBC (Bld) [#/Vol] 4.34 10*6/uL 3.90 - 5.2 0 m/uL [facility] WBC (Bld) [#/Vol] 5.68 10*3/uL 3.70 - 11.00 k/uL [facility] CNPNon 04-12-2021 CNPN Telephone (AGCARDPOB ) SACHI GRACE ([id number]) 1935 F NFR Date Time Provider Department 04/12/21 KRYS REEDHAGCARDPOB During your visit today, we recorded the [...] Date Reviewed: 04/02/2021 Reviewed by: Sena Mcfarlane APRN.TARGET WORKER - Fully Assessed Reason for Visit: Follow [...] 50 mcg by mouth once fidel* VITAMINS A,C,F-LIYY-SDAXSS 7* Take by mouth. ACETAMINOPHEN 500 MG TABLET Take one(1) tablet every four* Problem List As Of Date 04/12/2021 Noted Resolved Unspecified constipation [K59.00] 04/30/2006 03/16/2016 PEPTIC ULCER NOS [K27.9] 03/19/2007 GENERALIZED ANXIETY DIS [F41.1] Generalized osteoarthrosis, unspecified site [M* 12/23/2015 Myalgia and myositis [UIO0866] 05/22/2017 Diverticulosis of large intestine [K57.30] Disorder [...] Status:Closed by PRECIOUS FUENTES on 04/12/21 Normal [facility] XR Abdomen Supine and Uprigh ton 04-03-2021 IMPRESSION: Refer to the result. Security Nurse: BINTA Transcribe Date/Time: Apr 03 2021 9:11A Dictated by : JEYSON NATHAN MD This examination was interpreted and the report reviewed and electronically signed by: JEYSON NATHAN MD on Apr 03 2021 9:13AM EST DIVISION OF RADIOLOGY * * *Final [...] acute osseous abnormality. DIVISION OF RADIOLOGY Provider, Ant Locke - 04/03/2021 * * *Final Report* * [...] abnormality. IMPRESSION IMPRESSION: Refer to the result. Security Nurse: PSCB Transcribe Date/Time: Apr 03 2021 9:11A Dictated by : JEYSON NATHAN MD This examination was interpreted and the report reviewed and electronically signed by: JEYSON NATHAN MD on Apr 03 2021 9:13AM EST [facility] Radiology Study observation (narrative) [facility] XR Abdomen Supine and Uprigh tOrdered By: Ccf Provider on 04-03-2021 [facility] CNNURSEon 01-19-2021 CNNURSE Nurse Visit (COVAMD) SCHUYLERVERNONSACHI ([id number]) 1935 F NFR Date Time Provider Department [...] Brown (Julia) JULIA Gaytan - Fully Assessed Order(s):Clone SARS-COV-2 VACCINE 2D DOSE APPT [[id number]] Order #: [id number] Prescriptions as of 01/19/2021 Sig: CLONAZEPAM 0.25 [...] 50 mcg by mouth once fidel* VITAMINS A,C,H-EKYD-GNZBXL 7* Take by mouth. ACETAMINOPHEN 500 MG TABLET Take one(1) tablet every four* Problem List As Of Date 01/19/2021 Noted Resolved Unspecified constipation [K59.00] 04/30/2006 03/16/2016 PEPTIC ULCER NOS [K27.9] 03/19/2007 GENERALIZED ANXIETY DIS [F41.1] Generalized osteoarthrosis, unspecified site [M* 12/23/2015 Myalgia and myositis [[id number]] 05/22/2017 Diverticulosis of large intestine [K57.30] Disorder [...] 07/27/2020 Orthostatic syncope [I95.1] 07/27/2020 Encounter Status:Open [facility] CR Spine Lumbosacral 2 or 3 Viewson 09-17-2019 CR Spine Lumbosacral 2 or 3 Views Patient Name: SACHI GRACE Diagnostic Radiology Exam Date/Time 09/16/2019 13:58:52 EDT Exam CR Spine Lumbosacral 2 or 3 Views Ordering Physician MD ELDER DONALD L. Accession Number [id number] CPT4 Codes 41436 () Reason For Exam Spondylosis of lumbar [...] ALFRED Transcribed Date and Time: 09/17/2019 10:01 [facility] CR Hip w/ Pelvis 1 View [facility] 09-02-2019 CR Hip w/ Pelvis 1 View Right Patient Name: SACHI GRACE Diagnostic Radiology Exam Date/Time 08/07/2019 09:07:07 EDT Exam CR Hip w/ Pelvis 1 View Right n Ordering Physician MD ELDER DONALD L. Accession Number [id number] CPT4 Codes 42769 () Reason For Exam pain Addendum Pelvis [...] Transcribed Date and Time: 08/07/2019 1:42 Normal [facility] CR Knee 1 or 2 Views [facility]on 08-07-2019 CR Knee 1 or 2 Views Right Patient Name: SACHI GRACE Diagnostic Radiology Exam Date/Time 08/07/2019 09:07:07 EDT Exam CR Knee 1 or 2 Views Right Ordering Physician MD ELDER DONALD L. Accession Number [id number] CPT4 Codes 91453 () Reason For Exam pain Report Bilateral [...] Transcribed Date and Time: 08/07/2019 1:43 Normal [facility] CR Knee Standing Bilateralon 08-07-2019 CR Knee Standing Bilateral Patient Name: SACHI GRACE Diagnostic Radiology Exam Date/Time 08/07/2019 09:07:07 EDT Exam CR Knee Standing AP Bilateral Ordering Physician MD ELDER DONALD L. Accession Number [id number] CPT4 Codes 08671 () Reason For Exam pain Report Bilateral [...] Transcribed Date and Time: 08/07/2019 1:43 Normal [facility] XR HIP 1 VW W PELVIS RIGHTon 08-07-2019 Patient Name: SACHI GRACE ---Diagnostic Radiology--- Exam Date/Time 08/07/2019 09:07:07 EDT Exam CR Hip w/ Pelvis 1 View Right n Ordering Physician MD ELDER DONALD L. Accession Number [id number] CPT4 Codes 07642 () Reason For Exam pain Report Pelvis one view and right hip two views HISTORY: Pain No fracture or dislocation. 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 Report Dictated on Workstation: [place] --- Final --- Dictating Physician: MD VELASCO MALAY Signed Date and Time: 08/07/2019 1:41 pm Signed by: MD VELASCO MALAY Transcribed Date and Time: 08/07/2019 1:42 [facility] [place], [facility] Incoming Radiology Results From [facility] - 08/07/2019 1:42 PM EDT Patient Name: SACHI GRACE ---Diagnostic Radiology--- Exam Date/Time 08/07/2019 09:07:07 EDT Exam CR Hip w/ Pelvis 1 View Right n Ordering Physician MD ELDER DONALD L. Accession Number [id number] CPT4 Codes 22736 () Reason For Exam pain Report Pelvis one view and right hip two views HISTORY: Pain No fracture or dislocation. 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 Report Dictated on Workstation: [place] --- Final --- Dictating Physician: MD VELASCO MALAY Signed Date and Time: 08/07/2019 1:41 pm Signed by: MD VELASCO MALAY Transcribed Date and Time: 08/07/2019 1:42 [facility] [place] [employer] XR KNEE RIGHT (1-2 VIEWS)on 08-07-2019 Patient Name: SACHI GRACE ---Diagnostic Radiology--- Exam Date/Time 08/07/2019 09:07:07 EDT Exam CR Knee 1 or 2 Views Right Ordering Physician MD ELDER DONALD L. Accession Number [id number] CPT4 Codes 39972 () Reason For Exam pain Report Bilateral [...] MALAY Transcribed Date and Time: 08/07/2019 1:43 [place], [place] [facility] Incoming Radiology Results From [facility] - 08/07/2019 1:43 PM EDT Patient Name: SACHI GRACE ---Diagnostic Radiology--- Exam Date/Time 08/07/2019 09:07:07 EDT Exam CR Knee 1 or 2 Views Right Ordering Physician MD ELDER DONALD L. Accession Number [id number] CPT4 Codes 26652 () Reason For Exam pain Report Bilateral knees standing one view and right knee two views HISTORY: Pain Bilateral knee prostheses. No evidence of prosthesis loosening. No fracture or dislocation. No right knee joint effusion. IMPRESSION: No abnormal findings. Report Dictated on Workstation: [id number] --- Final --- Dictating Physician: MD VELASCO MALAY Signed Date and Time: 08/07/2019 1:42 pm Signed by: MD VELASCO MALAY Transcribed Date and Time: 08/07/2019 1:43 [facility] [place] [facility]on 08-07-2019 Patient Name: SACHI GRACE ---Diagnostic Radiology--- Exam Date/Time 08/07/2019 09:07:07 EDT Exam CR Knee Standing AP Bilateral Ordering Physician MD ELDER DONALD L. Accession Number [id number] CPT4 Codes 35176 () Reason For Exam pain Report Bilateral knees standing one view and right knee two views HISTORY: Pain Bilateral knee prostheses. No evidence of prosthesis loosening. No fracture or dislocation. No right knee joint effusion. IMPRESSION: No abnormal findings. Report Dictated on Workstation: [place] --- Final --- Dictating Physician: MD VELASCO MALAY Signed Date and Time: 08/07/2019 1:42 pm Signed by: MD VELASCO MALAY Transcribed Date and Time: 08/07/2019 1:43 [place], [place] [facility] Incoming Radiology Results From [facility] - 08/07/2019 1:43 PM EDT Patient Name: SACHI GRACE ---Diagnostic Radiology--- Exam Date/Time 08/07/2019 09:07:07 EDT Exam CR Knee Standing AP Bilateral Ordering Physician MD ELDER DONALD L. Accession Number [id number] CPT4 Codes 03253 () Reason For Exam pain Report Bilateral knees standing one view and right knee two views HISTORY: Pain Bilateral knee prostheses. No evidence of prosthesis loosening. No fracture or dislocation. No right knee joint effusion. IMPRESSION: No abnormal findings. Report Dictated on Workstation: [place] --- Final --- Dictating Physician: MD VELASCO MALAY Signed Date and Time: 08/07/2019 1:42 pm Signed by: MD VELASCO MALAY Transcribed Date and Time: 08/07/2019 1:43 [place], [place] Vital Signs Date Time Vital Sign Value Performing Clinician Lo negron 06-14-2025 10:42-0400 Body mass index (BMI) [Ratio] 21.35 kg/m2 Anitra Mancera APRN.CNP Work Phone: [facility] 06-14-2025 10:42-0400 Body weight 51.26 kg Anitra Mancera APRN.CNP Work Phone: [facility] 06-14-2025 10:42-0400 Diastolic blood pressure 66 mm[Hg] Anitra Mancera APRN.CNP Work Phone: [facility] 06-14-2025 10:42-0400 Heart rate 89 /min Anitra Mancera APRN.CNP Work Phone: [facility] 06-14-2025 10:42-0400 SaO2% (BldA) [Mass fraction] 95 % Anitra Mancera APRN.TARGET WORKER Work Phone: [facility] 06-14-2025 10:42-0400 Systolic blood pressure 110 mm[Hg] Anitra Mancera APRN.TARGET WORKER Work Phone: [facility] 05-17-2025 10:14-0400 Body mass index (BMI) [Ratio] 21.66 kg/m2 Dawit Phelan GENERAL SURGEON.TARGET WORKER Work Phone: [facility] 05-17-2025 10:14-0400 Body weight 52 kg Dawit Phelan APRN.TARGET WORKER Work Phone: [facility] 05-17-2025 10:14-0400 Diastolic blood pressure 76 mm[Hg] Dawit Phelan APRN.TARGET WORKER Work Phone: [facility] 05-17-2025 10:14-0400 Heart rate 87 /min Dawit Phelan APRN.TARGET WORKER Work Phone: [facility] 05-17-2025 10:14-0400 Systolic blood pressure 122 mm[Hg] Dawit Phelan APRN.TARGET WORKER Work Phone: [facility] 05-14-2025 11:45-0400 Body mass index (BMI) [Ratio] 21.8 kg/m2 Dasia Funes MD Work Phone: [facility] 05-14-2025 11:45-0400 Body temperature 97.3 [degF] Dasia Funes MD Work Phone: [facility] 05-14-2025 11:45-0400 Body weight 52.34 kg Dasia Funes MD Work Phone: [facility] 05-14-2025 11:45-0400 Heart rate 74 /min Dasia Funes MD Work Phone: [facility] 05-14-2025 11:45-0400 Respiratory rate 12 /min Dasia Funes MD Work Phone: [facility] 05-14-2025 11:45-0400 SaO2% (BldA) [Mass fraction] 99 % Dasia Funes MD Work Phone: [facility] 05-04-2025 10:00-0400 Body height 154.9 cm Dasia Funes MD Work Phone: [facility] 05-04-2025 10:00-0400 Body mass index (BMI) [Ratio] 22.14 kg/m2 Dasia Funes MD Work Phone: [facility] 05-04-2025 10:00-0400 Body weight 53.16 kg Dasia Funes MD Work Phone: [facility] 05-04-2025 10:00-0400 Diastolic blood pressure 64 mm[Hg] Dasia Funes MD Work Phone: [facility] 05-04-2025 10:00-0400 Heart rate 92 /min Dasia Funes MD Work Phone: [facility] 05-04-2025 10:00-0400 Respiratory rate 17 /min Dasia Funes MD Work Phone: [facility] 05-04-2025 10:00-0400 SaO2% (BldA) [Mass fraction] 96 % Dasia Funes MD Work Phone: [facility] 05-04-2025 10:00-0400 Systolic blood pressure 110 mm[Hg] Dasia Funes MD Work Phone: [facility] 03-31-2025 13:27-0400 Body mass index (BMI) [Ratio] 23.71 kg/m2 Shira Ordonez APRN.TARGET WORKER Work Phone: [facility] 03-31-2025 13:27-0400 Body weight 55.07 kg Shira Ordonez APRN.TARGET WORKER Work Phone: [facility] 03-31-2025 13:27-0400 Diastolic blood pressure 66 mm[Hg] Shira Podlogar GENERAL SURGEON.TARGET WORKER Work Phone: [facility] 03-31-2025 13:27-0400 Heart rate 77 /min Shira Podlogar GENERAL SURGEON.TARGET WORKER Work Phone: [facility] 03-31-2025 13:27-0400 Respiratory rate 18 /min Shira Podlogar GENERAL SURGEON.TARGET WORKER Work Phone: [facility] 03-31-2025 13:27-0400 Systolic blood pressure 98 mm[Hg] Shira Podlogar GENERAL SURGEON.TARGET WORKER Work Phone: [facility] 03-18-2025 14:17-0400 Body mass index (BMI) [Ratio] 23.68 kg/m2 Dawit Phelan GENERAL SURGEON.TARGET WORKER Work Phone: [facility] 03-18-2025 14:17-0400 Body weight 55 kg Dawit Phelan GENERAL SURGEON.TARGET WORKER Work Phone: [facility] 03-18-2025 14:17-0400 Diastolic blood pressure 78 mm[Hg] Dawit Phelan GENERAL SURGEON.TARGET WORKER Work Phone: [facility] 03-18-2025 14:17-0400 Heart rate 88 /min Dawit Phelan GENERAL SURGEON.TARGET WORKER Work Phone: [facility] 03-18-2025 14:17-0400 Systolic blood pressure 124 mm[Hg] Dawit Phelan GENERAL SURGEON.TARGET WORKER Work Phone: [facility] 03-16-2025 10:27-0400 Body height 154.9 cm Cliff Troncoso MD Work Phone: [facility] [employer] 03-16-2025 10:27-0400 Body mass index (BMI) [Ratio] 22.67 kg/m2 Cliff Troncoso MD Work Phone: [facility] [employer] 03-16-2025 10:27-0400 Body temperature 97.9 [degF] Cliff Troncoso MD Work Phone: [facility] 03-16-2025 10:27-0400 Body weight 54.43 kg Cliff Troncoso MD Work Phone: [facility] 03-16-2025 10:27-0400 Diastolic blood pressure 85 mm[Hg] Cliff Troncoso MD Work Phone: [facility] 03-16-2025 10:27-0400 Heart rate 91 /min Cliff Troncoso MD Work Phone: [facility] 03-16-2025 10:27-0400 Systolic blood pressure 125 mm[Hg] Cliff Troncoso MD Work Phone: [facility] 03-15-2025 10:04-0400 Body mass index (BMI) [Ratio] 23.24 kg/m2 Anitra Suppan GENERAL SURGEON.TARGET WORKER Work Phone: [facility] 03-15-2025 10:04-0400 Body temperature 98.49 [degF] Anitra Suppan GENERAL SURGEON.TARGET WORKER Work Phone: [facility] 03-15-2025 10:04-0400 Body weight 53.98 kg Anitra Suppan GENERAL SURGEON.TARGET WORKER Work Phone: [facility] 03-15-2025 10:04-0400 Diastolic blood pressure 58 mm[Hg] Anitra Suppan GENERAL SURGEON.TARGET WORKER Work Phone: [facility] 03-15-2025 10:04-0400 Heart rate 94 /min Anitra Suppan GENERAL SURGEON.TARGET WORKER Work Phone: [facility] 03-15-2025 10:04-0400 SaO2% (BldA) [Mass fraction] 97 % Anitra Suppan GENERAL SURGEON.TARGET WORKER Work Phone: [facility] 03-15-2025 10:04-0400 Systolic blood pressure 104 mm[Hg] Anitra Suppan GENERAL SURGEON.TARGET WORKER Work Phone: [facility] 02-10-2025 13:00-0400 Diastolic blood pressure 78 mm[Hg] Quinten Franco MD Work Phone: [facility] 02-10-2025 13:00-0400 Heart rate 80 /min Quinten Franco MD Work Phone: [facility] 02-10-2025 13:00-0400 Respiratory rate 20 /min Quinten Franco MD Work Phone: [facility] 02-10-2025 13:00-0400 SaO2% (BldA) [Mass fraction] 96 % Quinten Franco MD Work Phone: [facility] 02-10-2025 13:00-0400 Systolic blood pressure 135 mm[Hg] Quinten Franco MD Work Phone: [facility] 02-10-2025 12:40-0400 Body temperature 97.59 [degF] Quinten Franco MD Work Phone: [facility] 02-10-2025 10:41-0400 Body height 154.9 cm Quinten Franco MD Work Phone: [facility] 02-10-2025 10:41-0400 Body mass index (BMI) [Ratio] 23.62 kg/m2 Quinten Franco MD Work Phone: [facility] 02-10-2025 10:41-0400 Body weight 56.7 kg Quinten Franco MD Work Phone: [facility] 12-18-2024 09:37-0500 Body mass index (BMI) [Ratio] 25.14 kg/m2 Anitra Mancera APRN.TARGET WORKER Work Phone: [facility] 12-18-2024 09:37-0500 Body temperature 98.2 [degF] Anitra Mancera GENERAL SURGEON.TARGET WORKER Work Phone: [facility] 12-18-2024 09:37-0500 Body weight 58.4 kg Anitra Mancera GENERAL SURGEON.TARGET WORKER Work Phone: [facility] 12-18-2024 09:37-0500 Diastolic blood pressure 76 mm[Hg] Anitra Mancera GENERAL SURGEON.TARGET WORKER Work Phone: [facility] 12-18-2024 09:37-0500 Heart rate 79 /min Anitra Suppan GENERAL SURGEON.TARGET WORKER Work Phone: [facility] 12-18-2024 09:37-0500 SaO2% (BldA) [Mass fraction] 95 % Anitra Suppan GENERAL SURGEON.TARGET WORKER Work Phone: [facility] 12-18-2024 09:37-0500 Systolic blood pressure 118 mm[Hg] Anitra Suppan GENERAL SURGEON.TARGET WORKER Work Phone: [facility] 11-27-2024 11:03-0500 Body mass index (BMI) [Ratio] 25.39 kg/m2 Anitra Suppan GENERAL SURGEON.TARGET WORKER Work Phone: [facility] 11-27-2024 11:03-0500 Body temperature 97.5 [degF] Anitra Suppan GENERAL SURGEON.TARGET WORKER Work Phone: [facility] 11-27-2024 11:03-0500 Body weight 58.97 kg Anitra Suppan GENERAL SURGEON.TARGET WORKER Work Phone: [facility] 11-27-2024 11:03-0500 Diastolic blood pressure 58 mm[Hg] Anitra Suppan GENERAL SURGEON.TARGET WORKER Work Phone: [facility] 11-27-2024 11:03-0500 Heart rate 74 /min Anitra Suppan GENERAL SURGEON.TARGET WORKER Work Phone: [facility] 11-27-2024 11:03-0500 SaO2% (BldA) [Mass fraction] 93 % Anitra Suppan GENERAL SURGEON.TARGET WORKER Work Phone: [facility] 11-27-2024 11:03-0500 Systolic blood pressure 102 mm[Hg] Anitra Suppan GENERAL SURGEON.TARGET WORKER Work Phone: [facility] 11-23-2024 11:26-0500 Body mass index (BMI) [Ratio] 24.8 kg/m2 Anitra Suppan GENERAL SURGEON.TARGET WORKER Work Phone: [facility] 11-23-2024 11:26-0500 Body temperature 97.9 [degF] Anitra Suppan GENERAL SURGEON.TARGET WORKER Work Phone: [facility] 11-23-2024 11:26-0500 Body weight 57.61 kg Anitra Suppan GENERAL SURGEON.TARGET WORKER Work Phone: [facility] 11-23-2024 11:26-0500 Diastolic blood pressure 68 mm[Hg] Anitra Suppan GENERAL SURGEON.TARGET WORKER Work Phone: [facility] 11-23-2024 11:26-0500 Heart rate 72 /min Anitra Suppan GENERAL SURGEON.TARGET WORKER Work Phone: [facility] 11-23-2024 11:26-0500 SaO2% (BldA) [Mass fraction] 94 % Anitra Suppan GENERAL SURGEON.TARGET WORKER Work Phone: [facility] 11-23-2024 11:26-0500 Systolic blood pressure 114 mm[Hg] Anitra Suppan GENERAL SURGEON.TARGET WORKER Work Phone: [facility] 11-03-2024 14:44-0500 Body mass index (BMI) [Ratio] 24.8 kg/m2 Anitra Suppan GENERAL SURGEON.TARGET WORKER Work Phone: [facility] 11-03-2024 14:44-0500 Body weight 57.61 kg Anitra Suppan GENERAL SURGEON.TARGET WORKER Work Phone: [facility] 11-03-2024 14:44-0500 Diastolic blood pressure 68 mm[Hg] Anitra Suppan GENERAL SURGEON.TARGET WORKER Work Phone: [facility] 11-03-2024 14:44-0500 Heart rate 64 /min Anitra Suppan GENERAL SURGEON.TARGET WORKER Work Phone: [facility] 11-03-2024 14:44-0500 Respiratory rate 16 /min Anitra Suppan GENERAL SURGEON.TARGET WORKER Work Phone: [facility] 11-03-2024 14:44-0500 Systolic blood pressure 122 mm[Hg] Anitra Suppan GENERAL SURGEON.TARGET WORKER Work Phone: [facility] 08-21-2024 09:24-0400 Body mass index (BMI) [Ratio] 25.06 kg/m2 Anitra Suppan GENERAL SURGEON.TARGET WORKER Work Phone: [facility] 08-21-2024 09:24-0400 Body weight 58.2 kg Anitra Suppan GENERAL SURGEON.TARGET WORKER Work Phone: [facility] 08-21-2024 09:24-0400 Diastolic blood pressure 68 mm[Hg] Anitra Suppan GENERAL SURGEON.TARGET WORKER Work Phone: [facility] 08-21-2024 09:24-0400 Heart rate 68 /min Anitra Suppan GENERAL SURGEON.TARGET WORKER Work Phone: [facility] 08-21-2024 09:24-0400 Respiratory rate 16 /min Anitra Suppan GENERAL SURGEON.TARGET WORKER Work Phone: [facility] 08-21-2024 09:24-0400 Systolic blood pressure 110 mm[Hg] Anitra Suppan GENERAL SURGEON.TARGET WORKER Work Phone: [facility] 08-12-2024 13:32-0400 Body height 152.4 cm Lindsey Kalka PA-C Work Phone: [facility] 08-12-2024 13:32-0400 Body mass index (BMI) [Ratio] 24.61 kg/m2 Lindsey Kalka PA-C Work Phone: [facility] 08-12-2024 13:32-0400 Body weight 57.15 kg Lindsey Kalka PA-C Work Phone: [facility] 08-12-2024 13:32-0400 Diastolic blood pressure 62 mm[Hg] Lindsey Kalka PA-C Work Phone: [facility] 08-12-2024 13:32-0400 Heart rate 80 /min Lindsey Kalka PA-C Work Phone: [facility] 08-12-2024 13:32-0400 Systolic blood pressure 108 mm[Hg] Lindsey Kalka PA-C Work Phone: [facility] 07-08-2024 13:58-0400 Body mass index (BMI) [Ratio] 25.19 kg/m2 Shoshana Chambers GENERAL SURGEON.CNM Work Phone: [facility] 07-08-2024 13:58-0400 Body weight 58.51 kg Shoshana Chambers GENERAL SURGEON.CNM Work Phone: [facility] 07-08-2024 13:58-0400 Diastolic blood pressure 74 mm[Hg] Shoshana Chambers GENERAL SURGEON.CNM Work Phone: [facility] 07-08-2024 13:58-0400 Systolic blood pressure 112 mm[Hg] Shoshana Chambers GENERAL SURGEON.CNM Work Phone: [facility] 06-16-2024 09:20-0400 Body mass index (BMI) [Ratio] 25 kg/m2 Anitra Suppan GENERAL SURGEON.TARGET WORKER Work Phone: [facility] 06-16-2024 09:20-0400 Body weight 58.06 kg Anitra Suppan GENERAL SURGEON.TARGET WORKER Work Phone: [facility] 06-16-2024 09:20-0400 Diastolic blood pressure 72 mm[Hg] Anitra Suppan GENERAL SURGEON.TARGET WORKER Work Phone: [facility] 06-16-2024 09:20-0400 Heart rate 84 /min Anitra Suppan GENERAL SURGEON.TARGET WORKER Work Phone: [facility] 06-16-2024 09:20-0400 Respiratory rate 18 /min Anitra Suppan GENERAL SURGEON.TARGET WORKER Work Phone: [facility] 06-16-2024 09:20-0400 SaO2% (BldA) [Mass fraction] 99 % Anitra Suppan GENERAL SURGEON.TARGET WORKER Work Phone: [facility] 06-16-2024 09:20-0400 Systolic blood pressure 114 mm[Hg] Anitra Suppan GENERAL SURGEON.TARGET WORKER Work Phone: [facility] 04-21-2024 14:12-0400 Body mass index (BMI) [Ratio] 25.58 kg/m2 NA Andersen PA-C Work Phone: [facility] 04-21-2024 14:12-0400 Body weight 59.42 kg NA Andersen PA-C Work Phone: [facility] 04-21-2024 14:12-0400 Diastolic blood pressure 65 mm[Hg] NA Andersen PA-C Work Phone: [facility] 04-21-2024 14:12-0400 Heart rate 82 /min NA Andersen PA-C Work Phone: [facility] 04-21-2024 14:12-0400 Respiratory rate 16 /min NA Andersen PA-C Work Phone: [facility] 04-21-2024 14:12-0400 SaO2% (BldA) [Mass fraction] 95 % NA Andersen PA-C Work Phone: [facility] 04-21-2024 14:12-0400 Systolic blood pressure 110 mm[Hg] NA Andersen PA-C Work Phone: [facility] 04-02-2024 09:34-0400 Body height 152.4 cm Lindsey Kalka PA-C Work Phone: [facility] 04-02-2024 09:34-0400 Body mass index (BMI) [Ratio] 25 kg/m2 Lindsey Kalka PA-C Work Phone: [facility] 04-02-2024 09:34-0400 Body weight 58.06 kg Lindsey Kalka PA-C Work Phone: [facility] 04-02-2024 09:34-0400 Diastolic blood pressure 72 mm[Hg] Lindsey Kalka PA-C Work Phone: [facility] 04-02-2024 09:34-0400 Heart rate 82 /min Lindsey Kalka PA-C Work Phone: [facility] 04-02-2024 09:34-0400 Systolic blood pressure 112 mm[Hg] Lindsey Whartonka PA-C Work Phone: [facility] 03-24-2024 11:05-0400 Body mass index (BMI) [Ratio] 25.03 kg/m2 NA Andersen PA-C Work Phone: [facility] 03-24-2024 11:05-0400 Body weight 58.97 kg NA Andersen PA-C Work Phone: [facility] 03-24-2024 11:05-0400 Diastolic blood pressure 70 mm[Hg] NA Andersen PA-C Work Phone: [facility] 03-24-2024 11:05-0400 Heart rate 74 /min NA Andersen PA-C Work Phone: [facility] 03-24-2024 11:05-0400 Respiratory rate 18 /min NA Andersen PA-C Work Phone: [facility] 03-24-2024 11:05-0400 SaO2% (BldA) [Mass fraction] 98 % NA Andersen PA-C Work Phone: [facility] 03-24-2024 11:05-0400 Systolic blood pressure 110 mm[Hg] NA Andersen PA-C Work Phone: [facility] 03-17-2024 18:51-0400 Body temperature 97.9 [degF] Shoshana Perry GENERAL SURGEON.TARGET WORKER Work Phone: [facility] 03-17-2024 18:51-0400 Body weight 60.5 kg Shoshana Perry GENERAL SURGEON.TARGET WORKER Work Phone: [facility] 03-17-2024 18:51-0400 Diastolic blood pressure 83 mm[Hg] Shoshana Perry GENERAL SURGEON.TARGET WORKER Work Phone: [facility] 03-17-2024 18:51-0400 Heart rate 87 /min Shoshana Perry GENERAL SURGEON.TARGET WORKER Work Phone: [facility] 03-17-2024 18:51-0400 Respiratory rate 18 /min Shoshana Perry GENERAL SURGEON.TARGET WORKER Work Phone: [facility] 03-17-2024 18:51-0400 SaO2% (BldA) [Mass fraction] 93 % Shoshana Perry GENERAL SURGEON.TARGET WORKER Work Phone: [facility] 03-17-2024 18:51-0400 Systolic blood pressure 139 mm[Hg] Shoshana Perry GENERAL SURGEON.TARGET WORKER Work Phone: [facility] 02-07-2024 10:37-0500 Body temperature 97.9 [degF] Anitra Suppan GENERAL SURGEON.BEND SORTER Work Phone: [facility] 02-07-2024 10:37-0500 Body weight 60.33 kg Anitra Suppan GENERAL SURGEON.BEND SORTER Work Phone: [facility] 02-07-2024 10:37-0500 Diastolic blood pressure 62 mm[Hg] Anitra Suppan GENERAL SURGEON.BEND SORTER Work Phone: [facility] 02-07-2024 10:37-0500 Heart rate 71 /min Anitra Suppan GENERAL SURGEON.BEND SORTER Work Phone: [facility] 02-07-2024 10:37-0500 Respiratory rate 18 /min Anitra Suppan GENERAL SURGEON.BEND SORTER Work Phone: [facility] 02-07-2024 10:37-0500 SaO2% (BldA) [Mass fraction] 97 % Anitra Suppan GENERAL SURGEON.BEND SORTER Work Phone: [facility] 02-07-2024 10:37-0500 Systolic blood pressure 112 mm[Hg] Anitra Suppan GENERAL SURGEON.BEND SORTER Work Phone: [facility] 01-17-2024 15:01-0500 Body weight 61.24 kg Anitra Suppan GENERAL SURGEON.BEND SORTER Work Phone: [facility] 01-17-2024 15:01-0500 Diastolic blood pressure 66 mm[Hg] Anitra Suppan GENERAL SURGEON.BEND SORTER Work Phone: [facility] 01-17-2024 15:01-0500 Heart rate 74 /min Anitra Mancera GENERAL SURGEON.BEND SORTER Work Phone: [facility] 01-17-2024 15:01-0500 SaO2% (BldA) [Mass fraction] 95 % Anitra Suppan GENERAL SURGEON.BEND SORTER Work Phone: [facility] 01-17-2024 15:01-0500 Systolic blood pressure 128 mm[Hg] Anitra Suppmariia GENERAL SURGEON.BEND SORTER Work Phone: [facility] 08-19-2023 18:51-0400 Body weight 60.78 kg Graham Flores MD Work Phone: [facility] 08-19-2023 18:51-0400 Diastolic blood pressure 82 mm[Hg] Graham Flores MD Work Phone: [facility] 08-19-2023 18:51-0400 Heart rate 80 /min Graham Flores MD Work Phone: [facility] 08-19-2023 18:51-0400 Systolic blood pressure 122 mm[Hg] Graham Flores MD Work Phone: [facility] 07-02-2023 10:21-0400 Body weight 61.69 kg NA Andersen PA-C Work Phone: [facility] 07-02-2023 10:21-0400 Diastolic blood pressure 62 mm[Hg] NA Andersen PA-C Work Phone: [facility] 07-02-2023 10:21-0400 Heart rate 79 /min NA Andersen PA-C Work Phone: [facility] 07-02-2023 10:21-0400 Respiratory rate 16 /min NA Andersen PA-C Work Phone: [facility] 07-02-2023 10:21-0400 SaO2% (BldA) [Mass fraction] 95 % NA Andersen PA-C Work Phone: [facility] 07-02-2023 10:21-0400 Systolic blood pressure 112 mm[Hg] NA Andersen PA-C Work Phone: [facility] 05-28-2023 11:36-0400 Body weight 61.69 kg NA Andersen PA-C Work Phone: [facility] 05-28-2023 11:36-0400 Diastolic blood pressure 72 mm[Hg] NA Andersen PA-C Work Phone: [facility] 05-28-2023 11:36-0400 Heart rate 74 /min NA Andersen PA-C Work Phone: [facility] 05-28-2023 11:36-0400 Respiratory rate 16 /min NA Andersen PA-C Work Phone: [facility] 05-28-2023 11:36-0400 SaO2% (BldA) [Mass fraction] 98 % NA Andersen PA-C Work Phone: [facility] 05-28-2023 11:36-0400 Systolic blood pressure 118 mm[Hg] NA Andersen PA-C Work Phone: [facility] 01-22-2023 11:45-0500 Body weight 62.14 kg NA Andersen PA-C Work Phone: [facility] 01-22-2023 11:45-0500 Diastolic blood pressure 70 mm[Hg] NA Andersen PA-C Work Phone: [facility] 01-22-2023 11:45-0500 Heart rate 70 /min NA Andersen PA-C Work Phone: [facility] 01-22-2023 11:45-0500 Respiratory rate 16 /min NA Andersen PA-C Work Phone: [facility] 01-22-2023 11:45-0500 SaO2% (BldA) [Mass fraction] 94 % NA Andersen PA-C Work Phone: [facility] 01-22-2023 11:45-0500 Systolic blood pressure 130 mm[Hg] NA Andersen PA-C Work Phone: [facility] 01-04-2023 16:36-0500 Body height 153.5 cm NA Andersen PA-C Work Phone: [facility] 01-04-2023 16:36-0500 Body weight 62.6 kg NA Andersen PA-C Work Phone: [facility] 01-04-2023 16:36-0500 Diastolic blood pressure 74 mm[Hg] NA Andersen PA-C Work Phone: [facility] 01-04-2023 16:36-0500 Heart rate 66 /min NA Andersen PA-C Work Phone: [facility] 01-04-2023 16:36-0500 Respiratory rate 16 /min NA Andersen PA-C Work Phone: [facility] 01-04-2023 16:36-0500 Systolic blood pressure 120 mm[Hg] NA Andersen PA-C Work Phone: [facility] 12-25-2022 11:10-0500 Body temperature 97.81 [degF] Kimberly Athy PA-C Work Phone: [facility] 12-25-2022 11:10-0500 Body weight 61.87 kg Kimberly Athy PA-C Work Phone: [facility] 12-25-2022 11:10-0500 Diastolic blood pressure 78 mm[Hg] Kimberly Athy PA-C Work Phone: [facility] 12-25-2022 11:10-0500 Heart rate 83 /min Kimberly Athy PA-C Work Phone: [facility] 12-25-2022 11:10-0500 Respiratory rate 18 /min Kimberly Athy PA-C Work Phone: [facility] 12-25-2022 11:10-0500 SaO2% (BldA) [Mass fraction] 97 % Kimberly Athy PA-C Work Phone: [facility] 12-25-2022 11:10-0500 Systolic blood pressure 134 mm[Hg] Kimberly Athy PA-C Work Phone: [facility] 11-13-2022 15:38-0500 Body height 152.4 cm NA Andersen PA-C Work Phone: [facility] 11-13-2022 15:38-0500 Body temperature 98.01 [degF] NA Andersen PA-C Work Phone: [facility] 11-13-2022 15:38-0500 Body weight 61.69 kg NA Andersen PA-C Work Phone: [facility] 11-13-2022 15:38-0500 Diastolic blood pressure 82 mm[Hg] NA Andersen PA-C Work Phone: [facility] 11-13-2022 15:38-0500 Heart rate 81 /min NA Andersen PA-C Work Phone: [facility] 11-13-2022 15:38-0500 SaO2% (BldA) [Mass fraction] 97 % NA Andersen PA-C Work Phone: [facility] 11-13-2022 15:38-0500 Systolic blood pressure 130 mm[Hg] NA Andersen PA-C Work Phone: [facility] 11-06-2022 11:59-0500 Body weight 61.69 kg NA Andersen PA-C Work Phone: [facility] 11-06-2022 11:59-0500 Diastolic blood pressure 70 mm[Hg] NA Andersen PA-C Work Phone: [facility] 11-06-2022 11:59-0500 Heart rate 85 /min NA Andersen PA-C Work Phone: [facility] 11-06-2022 11:59-0500 Respiratory rate 16 /min NA Andersen PA-C Work Phone: [facility] 11-06-2022 11:59-0500 SaO2% (BldA) [Mass fraction] 97 % NA Andersen PA-C Work Phone: [facility] 11-06-2022 11:59-0500 Systolic blood pressure 136 mm[Hg] NA Andersen PA-C Work Phone: [facility] 10-01-2022 15:43-0400 Body temperature 98.01 [degF] NA Andersen PA-C Work Phone: [facility] 10-01-2022 15:43-0400 Body weight 62.14 kg NA Andersen PA-C Work Phone: [facility] 10-01-2022 15:43-0400 Diastolic blood pressure 72 mm[Hg] NA Andersen PA-C Work Phone: [facility] 10-01-2022 15:43-0400 Heart rate 74 /min NA Andersen PA-C Work Phone: [facility] 10-01-2022 15:43-0400 Respiratory rate 20 /min NA Andersen PA-C Work Phone: [facility] 10-01-2022 15:43-0400 SaO2% (BldA) [Mass fraction] 97 % NA Andersen PA-C Work Phone: [facility] 10-01-2022 15:43-0400 Systolic blood pressure 138 mm[Hg] NA Andersen PA-C Work Phone: [facility] 08-14-2022 10:45-0400 Body weight 61.87 kg Shira Podlogar GENERAL SURGEON.TARGET WORKER Work Phone: [facility] 08-14-2022 10:45-0400 Diastolic blood pressure 78 mm[Hg] Shira Podlogar GENERAL SURGEON.TARGET WORKER Work Phone: [facility] 08-14-2022 10:45-0400 Heart rate 78 /min Shira Podlogar GENERAL SURGEON.TARGET WORKER Work Phone: [facility] 08-14-2022 10:45-0400 Respiratory rate 16 /min Shira Podlogar GENERAL SURGEON.TARGET WORKER Work Phone: [facility] 08-14-2022 10:45-0400 SaO2% (BldA) [Mass fraction] 96 % Shira Podlogar GENERAL SURGEON.TARGET WORKER Work Phone: [facility] 08-14-2022 10:45-0400 Systolic blood pressure 114 mm[Hg] Shira Podlogar GENERAL SURGEON.TARGET WORKER Work Phone: [facility] 04-06-2022 09:49-0400 Body weight 61.51 kg Shira Podlogar GENERAL SURGEON.TARGET WORKER Work Phone: [facility] 04-06-2022 09:49-0400 Heart rate 75 /min Shira Podlogar GENERAL SURGEON.TARGET WORKER Work Phone: [facility] 04-06-2022 09:49-0400 Respiratory rate 18 /min Shira Podlogar GENERAL SURGEON.TARGET WORKER Work Phone: [facility] 04-06-2022 09:49-0400 SaO2% (BldA) [Mass fraction] 99 % Shira Podlogar GENERAL SURGEON.TARGET WORKER Work Phone: [facility] Encounters Encounter Date Encounter Type Care Provider Facility Start: 07-06-2025 End: 07-06-2025 ambulatory Anitra Suppan Facility:[facility] Start: 06-29-2025 End: 06-29-2025 Patient encounter procedure Sena Hahn MA [facility] Comment on above: Population Health Na vigation Outreach ([facility] ) Start: 06-29-2025 End: 06-29-2025 ambulatory Sena Hahn MA [facility] Start: 06-16-2025 End: 06-17-2025 Telephone encounter Anitra Mancera GENERAL SURGEON.TARGET WORKER Work Phone: [facility] Comment on above: Patient Update Start: 06-15-2025 End: 06-15-2025 ambulatory Anitra Suppan Facility:[facility] Start: 06-14-2025 End: 06-14-2025 Office outpatient visit 25 minutes Anitra Mancera GENERAL SURGEON.TARGET WORKER Work Phone: [facility] Comment on above: Hyperlipidemia LDL g oal <130 (Primary Dx); Mild intermittent asthma without complication (HCC); Paroxysmal supraventricular tachycardia (HCC); RLS (restless legs syndrome); Acquired hypothyroidism; Generalized anxiety disorder; Malignant neoplasm of pancreas, unspecified location of malignancy (HCC); Iron deficiency anemia, unspecified iron deficiency anemia type; Benzodiazepine dependence (HCC); Primary hypertension Start: 06-14-2025 End: 06-14-2025 ambulatory ANITRA A SUPPAN Facility:[facility] Start: 06-11-2025 ambulatory Anitra Suppan Facil ity:[facility] Start: 06-09-2025 End: 06-09-2025 ambulatory Anitra Suppan Facility:[facility] Start: 05-28-2025 End: 05-31-2025 Follow-up encounter Dawit Phelan APRN.CNP Work Phone: [facility] Comment on above: Results Start: 05-21-2025 End: 05-21-2025 ambulatory Andi Holden Facility:[facility] Start: 05-17-2025 End: 05-17-2025 Patient encounter procedure Dawit Phelan APRN.TARGET WORKER Work Phone: [facility] Comment on above: Medication managemen t (Primary Dx); Coarse tremors Start: 05-17-2025 End: 05-17-2025 ambulatory ANITRA A SUPPAN Facility:[facility] Start: 05-14-2025 End: 05-14-2025 [facility] Start: 05-14-2025 End: 05-14-2025 Patient encounter procedure Dasia Funes MD Work Phone: Endocrinology Comment on above: Coarse tremors (Prim cole Dx) Start: 05-14-2025 End: 05-14-2025 ambulatory DASIA FUNES Facility:[facility] Start: 05-13-2025 End: 05-13-2025 Telephone encounter Anitra Mancera APRN.CNP Work Phone: [facility] Start: 05-12-2025 End: 05-31-2025 ambulatory Anitra Suppan Facility:[facility] Start: 05-12-2025 End: 05-12-2025 ambulatory Anitra Suppan Facility:[facility] Start: 05-11-2025 End: 05-11-2025 Telephone encounter Anitra Mancera APRN.TARGET WORKER Work Phone: [facility] [place] Start: 05-04-2025 End: 05-04-2025 Patient encounter procedure Dasia Funes MD Work Phone: Endocrinology Comment on above: Hypothyroidism, acqu ired (Primary Dx) Start: 05-04-2025 End: 05-04-2025 ambulatory DASIA FUNES Facility:[facility] Start: 04-14-2025 End: 04-14-2025 ambulatory Anitra Suppan Facility:[facility] Start: 04-09-2025 ambulatory Andi Holden Facility: [facility] Start: 04-07-2025 End: 04-07-2025 ambulatory Andi Holden Facility:[facility] Start: 03-31-2025 End: 03-31-2025 [facility] Start: 03-31-2025 End: 03-31-2025 Patient encounter procedure Shira Ordonez APRN.TARGET WORKER Work Phone: [facility] Comment on above: Acute bilateral low back pain without sciatica (Primary Dx) Start: 03-31-2025 ambulatory Andi Holden Facility: [facility] Start: 03-30-2025 ambulatory Andi Holden Facility: [facility] Start: 03-29-2025 End: 05-29-2025 Follow-up encounter Graham Flores MD Work Phone: [facility] [place] Start: 03-29-2025 End: 03-29-2025 ambulatory ANITRA A SUPPAN Facility:[facility] Start: 03-26-2025 ambulatory Andi Holden Facility: [facility] Start: 03-24-2025 End: 03-24-2025 ambulatory Andi Holden Facility:[facility] Start: 03-19-2025 End: 03-20-2025 Follow-up encounter Dawit Phelan APRN.TARGET WORKER Work Phone: [facility] Comment on above: Results Start: 03-18-2025 End: 03-18-2025 Patient encounter procedure Dawit Phelan APRN.TARGET WORKER Work Phone: [facility] Comment on above: Dry mouth (Primary D x); Leg cramps Start: 03-18-2025 End: 03-18-2025 ambulatory ANITRA A SUPPAN Facility:[facility] Start: 03-18-2025 End: 03-18-2025 Telephone encounter Anitra A Suppan GENERAL SURGEON.TARGET WORKER Work Phone: [facility] Start: 03-17-2025 End: 03-17-2025 ambulatory Anitra Suppan Facility:[facility] Start: 03-16-2025 End: 03-16-2025 Telephone encounter Anitra A Suppan GENERAL SURGEON.TARGET WORKER Work Phone: [facility] Comment on above: Patient Update Start: 03-16-2025 End: 03-16-2025 Office outpatient new 45 minutes Cliff Troncoso MD Work Phone: [facility] [place] Comment on above: Pancreatic adenocarc inoma (HCC) (Primary Dx) Start: 03-16-2025 End: 03-16-2025 ambulatory ANITRA SUPPAN [facility] Start: 03-15-2025 End: 03-15-2025 Office outpatient visit 15 minutes Anitra A Suppan GENERAL SURGEON.TARGET WORKER Work Phone: [facility] Comment on above: Anxiety with depress ion (Primary Dx); 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); Screening for depression; Urinary urgency Start: 03-15-2025 End: 03-15-2025 ambulatory ANITRA A SUPPAN Facility:[facility] Start: 03-15-2025 End: 03-15-2025 Patient encounter procedure Nathalia Jay APRN.TARGET WORKER Work Phone: [facility] Comment on above: Anxious mood (Primar y Dx) Start: 03-04-2025 End: 03-04-2025 ambulatory Anitra Suppan Facility:[facility] Start: 03-03-2025 End: 03-03-2025 ambulatory Anitra Suppan Facility:[facility] Start: 02-24-2025 End: 02-24-2025 Patient encounter procedure Sena Hahn MA [facility] Start: 02-24-2025 End: 02-24-2025 ambulatory Sena Hahn MA [facility] Start: 02-18-2025 ambulatory Anitra Suppan Facil ity:[facility] Start: 02-15-2025 End: 02-15-2025 Refill Anitra A Suppan GENERAL SURGEON.TARGET WORKER Work Phone: [facility] Comment on above: Refill Request Patient Update Start: 02-10-2025 End: 02-10-2025 Anesthesia consultation Flaquito Pineda MD Work Phone: [facility] Endoscopy Start: 02-10-2025 End: 02-10-2025 ambulatory QUINTEN FRANCO [facility] Start: 02-10-2025 End: 02-10-2025 Subsequent hospital visit by physician Quinten Franco MD Work Phone: [facility] Endoscopy Comment on above: Other specified dise ases of pancreas Start: 02-10-2025 [facility] Start: 01-26-2025 End: 01-26-2025 ambulatory ANITRA A SUPPAN Facility:[facility] Start: 01-21-2025 End: 01-22-2025 Telephone encounter Anitra A Suppan GENERAL SURGEON.TARGET WORKER Work Phone: [address] [place] [address] Comment on above: Patient Question Start: 01-15-2025 End: 01-15-2025 ambulatory ANITRA A SUPPAN Facility:[facility] Start: 01-15-2025 End: 01-15-2025 Subsequent hospital visit by physician Mri [facility] (I-Stat/1.5t) Work Phone: Radiology Start: 01-14-2025 End: 01-14-2025 Telephone encounter Anitra A Suppan GENERAL SURGEON.TARGET WORKER Work Phone: [facility] Comment on above: Orders (MRI) Start: 01-05-2025 End: 01-05-2025 ambulatory Sena Hahn MA [facility] Start: 01-05-2025 End: 01-05-2025 Patient encounter procedure Sena Hahn MA [facility] Comment on above: Population Health Na vigation Outreach (ACO WORKBEJUN NAIN PCSA) Start: 01-01-2025 End: 01-01-2025 ambulatory Anitra Suppan Facility:[facility] Start: 12-30-2024 End: 12-30-2024 ambulatory ANITRA A SUPPAN Facility:[facility] Start: 12-30-2024 End: 12-30-2024 Nursing evaluation of patient and report Mi Nurse Work Phone: [facility] Comment on above: H. pylori infection Start: 12-22-2024 End: 12-22-2024 Telephone encounter Anitra A Suppan GENERAL SURGEON.TARGET WORKER Work Phone: [facility] Comment on above: fax referral to [facility] Dr. Rm Start: 12-18-2024 End: 12-18-2024 ambulatory ANITRA A SUPPAN Facility:[facility] Start: 12-18-2024 End: 12-18-2024 Office outpatient visit 15 minutes Anitra A Suppan GENERAL SURGEON.TARGET WORKER Work Phone: [facility] Comment on above: Pancreatic cyst (Erma ashtyn Dx); H. pylori infection Start: 12-15-2024 End: 01-06-2025 Telephone encounter Anitra A Angelan GENERAL SURGEON.TARGET WORKER Work Phone: [facility] Start: 12-10-2024 End: 12-10-2024 Emergency department patient visit Anitra Suppan Facility:[facility] Start: 12-10-2024 End: 12-10-2024 Telephone encounter Anitra A Suppan GENERAL SURGEON.TARGET WORKER Work Phone: [facility] Comment on above: Patient concern Start: 11-27-2024 End: 11-27-2024 ambulatory ANITRA A SUPPAN Facility:[facility] Start: 11-27-2024 End: 11-27-2024 Office outpatient visit 15 minutes Anitra A Suppan GENERAL SURGEON.TARGET WORKER Work Phone: [facility] Comment on above: PUD (peptic ulcer di sease) (Primary Dx); H pylori ulcer; Belching; Hypothyroidism, acquired; Burning mouth syndrome Start: 11-26-2024 End: 11-26-2024 Telephone encounter Anitra A Suppan GENERAL SURGEON.TARGET WORKER Work Phone: [facility] Comment on above: Results Start: 11-23-2024 End: 11-23-2024 Subsequent hospital visit by physician [facility] Work Phone: Radiology Comment on above: Pain in both knees, unspecified chronicity [M25.561, M25.562] Start: 11-23-2024 End: 11-23-2024 Office outpatient visit 15 minutes Anitra A Suppan GENERAL SURGEON.TARGET WORKER Work Phone: [facility] Comment on above: Mononeuropathy (Prim cole Dx); Abnormal serum level of lipase; Belching; Epigastric pain; Acute peptic ulcer, site unspecified, without hemorrhage or perforation; Pain in both knees, unspecified chronicity Start: 11-23-2024 End: 11-23-2024 ambulatory ANITRA A SUPPAN Facility:[facility] Start: 11-16-2024 End: 11-16-2024 Refill Anitra A Suppan GENERAL SURGEON.TARGET WORKER Work Phone: [facility] Comment on above: Refill Request Start: 11-11-2024 End: 11-16-2024 Telephone encounter Anitra A Suppan GENERAL SURGEON.TARGET WORKER Work Phone: [facility] Comment on above: Referral Request Start: 11-10-2024 End: 11-10-2024 ambulatory M Ruben GARCIA Facility:[facility] Start: 11-10-2024 End: 11-10-2024 Telephone encounter Anitra A Suppan GENERAL SURGEON.TARGET WORKER Work Phone: [facility] Comment on above: Results Start: 11-10-2024 End: 11-10-2024 ambulatory Anitra Suppan Facility:[facility] Start: 11-05-2024 End: 11-05-2024 Telephone encounter Anitra A Suppan GENERAL SURGEON.TARGET WORKER Work Phone: [facility] Comment on above: Patient Update Release Of Medical R ecords (Lab Results) requesting medicatio n that is Start: 11-03-2024 End: 11-03-2024 Office outpatient visit 15 minutes Anitra A Suppan GENERAL SURGEON.TARGET WORKER Work Phone: [facility] Comment on above: Multinodular goiter (Primary Dx); Painful mouth; Screening for lipid disorders; Screening for diabetes mellitus; Vitamin D deficiency; Dyslipidemia Start: 11-03-2024 End: 11-03-2024 ambulatory ANITRA A SUPPAN Facility:[facility] Start: 11-02-2024 End: 11-05-2024 Telephone encounter Anitra A Suppan GENERAL SURGEON.TARGET WORKER Work Phone: [facility] Comment on above: Sore burning mouth s tiff July Start: 09-16-2024 End: 09-17-2024 Telephone encounter Anitra A Suppan GENERAL SURGEON.TARGET WORKER Work Phone: [facility] Comment on above: Patient Question Start: 09-09-2024 End: 09-10-2024 Telephone encounter Anitra A Suppan GENERAL SURGEON.TARGET WORKER Work Phone: [facility] Comment on above: Orders Start: 08-21-2024 End: 08-21-2024 ambulatory ANITRA A SUPPAN Facility:[facility] Start: 08-21-2024 End: 08-21-2024 Office outpatient visit 15 minutes Anitra A Suppan GENERAL SURGEON.TARGET WORKER Work Phone: [facility] Comment on above: Burning mouth syndro me (Primary Dx) Start: 08-12-2024 End: 08-12-2024 ambulatory LINDSEY STAPLETON Facility:[facility] Start: 08-12-2024 End: 08-12-2024 Patient encounter procedure Lindsey Stapleton PA-C Work Phone: [facility] Comment on above: Chronic constipation (Primary Dx); Pancreatic lesion Start: 07-29-2024 End: 07-29-2024 ambulatory YANELY ANDERSEN Facility:[facility] Start: 07-08-2024 End: 07-08-2024 ambulatory SHOSHANA CHAMBERS Facility:[facility] Start: 07-08-2024 End: 07-08-2024 Patient encounter procedure Shoshanadiana Chambers APRN.CNM Work Phone: OB/Gynecology Comment on above: 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 Start: 06-26-2024 End: 06-26-2024 Subsequent hospital visit by physician [facility] (I-Stat/1.5t) Work Phone: Radiology Comment on above: Abnormal weight loss [R63.4] Start: 06-18-2024 Telephone encounter Anitra Mancera APRN.TARGET WORKER Work Phone: [facility] Comment on above: Results Start: 06-16-2024 Telephone encounter Anitra Mancera APRN.TARGET WORKER Work Phone: [facility] Comment on above: Results Start: 06-16-2024 End: 06-16-2024 Subsequent hospital visit by physician [facility] Work Phone: Radiology Comment on above: 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] Start: 06-16-2024 End: 06-16-2024 Office outpatient visit 15 minutes Anitra Mancera APRN.TARGET WORKER Work Phone: [facility] Comment on above: 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); Hypothyroidism, acquired; Fatigue, unspecified type Start: 06-09-2024 E-mail encounter fro m caregiver Jeyson Mcdowell APRN.TARGET WORKER Work Phone: [facility] Start: 06-09-2024 Follow-up encounter Jeyson Mcdowell APRN.TARGET WORKER Work Phone: [facility] Comment on above: Actionable Finding F ollow up Start: 06-05-2024 Telephone encounter Lindsey GARCIA-C Work Phone: [facility] Comment on above: Results Start: 05-18-2024 Refill Kevin calvin PA-C Work Phone: [facility] Comment on above: Refill Request Start: 04-30-2024 Telephone encounter Lindsey balesred PA-C Work Phone: [facility] Comment on above: Ardelyx Start: 04-29-2024 Telephone encounter Kevin Andersen PA-C Work Phone: [facility] Comment on above: Results Start: 04-28-2024 Telephone encounter Lindsey Herbert niired PA-C Work Phone: [facility] Comment on above: Results Start: 04-23-2024 End: 04-23-2024 Subsequent hospital visit by physician Ct Prep [facility] Comment on above: Acute constipation [ K59.00] Start: 04-21-2024 End: 04-21-2024 Patient encounter procedure Kevin Andersen JOSE-C Work Phone: [facility] Comment on above: Acute constipation ( Primary Dx); Anxiety due to invasive procedure; RLS (restless legs syndrome); Benzodiazepine dependence (HCC) Start: 04-03-2024 Telephone encounter Lindsey Herbert niired PA-C Work Phone: [facility] Comment on above: Prep instructions Start: 04-02-2024 End: 04-02-2024 Patient encounter procedure Lindsey Stapleton JOSE-C Work Phone: [facility] Comment on above: Acute constipation ( Primary Dx); Abnormal weight loss; Constipation, unspecified constipation type Start: 03-24-2024 End: 03-24-2024 Subsequent hospital visit by physician Xr [facility] Work Phone: Radiology Comment on above: Acute constipation [ K59.00] Start: 03-24-2024 End: 03-24-2024 Patient encounter procedure Kevin Andersen PA-C Work Phone: [facility] Comment on above: Acute constipation ( Primary Dx); SVT (supraventricular tachycardia) (HCC); RUY (generalized anxiety disorder); Benzodiazepine dependence (HCC) Start: 03-17-2024 End: 03-17-2024 Patient encounter procedure Shoshana Perry APRN.TARGET WORKER Work Phone: [facility] Comment on above: Arm laceration, left , initial encounter (Primary Dx); Encounter for immunization Start: 03-11-2024 Telephone encounter Kevin Ruben Andersen PA-C Work Phone: [facility] Comment on above: Patient Question Start: 02-07-2024 End: 02-07-2024 Office outpatient visit 15 minutes Aintra Avery Suppan GENERAL SURGEON.BEND SORTER Work Phone: [facility] Comment on above: SVT (supraventricula r tachycardia) (HCC) (Primary Dx); Acute constipation; Nausea Start: 02-06-2024 Telephone encounter Anitra Mancera GENERAL SURGEON.BEND SORTER Work Phone: [facility] Start: 02-05-2024 ambulatory Kevin Ruben calvin PA-C Work Phone: [facility] Comment on above: Patient Question (St ill constipated/) Start: 01-31-2024 Telephone encounter Anitra Avery Suppan GENERAL SURGEON.BEND SORTER Work Phone: [facility] Comment on above: Results Start: 01-30-2024 Telephone encounter Anitra Ortizan GENERAL SURGEON.BEND SORTER Work Phone: [facility] Start: 01-18-2024 Telephone encounter Kevin Ruben Andersen PA-C Work Phone: [facility] Comment on above: Electronic Communica tion Start: 01-17-2024 End: 01-17-2024 Office outpatient visit 15 minutes Anitra A Suppan GENERAL SURGEON.BEND SORTER Work Phone: [facility] Comment on above: Palpitations (Primar y Dx); Shortness of breath Start: 01-15-2024 Telephone encounter Kevin Ruben Andersen PA-C Work Phone: [facility] Comment on above: Patient Update (From 01/01/24) Start: 01-01-2024 Preprocedural examination done Graham Flores MD Work Phone: [facility] Start: 12-27-2023 Telephone encounter Graham Flores MD Work Phone: [facility] Comment on above: Patient Update Start: 11-15-2023 Refill Kevin calvin TABITHA Work Phone: [facility] Comment on above: Refill Request Start: 10-03-2023 Telephone encounter Kevin Andersen TABITHA Work Phone: [facility] Comment on above: Orders Start: 09-23-2023 End: 09-23-2023 ambulatory Emg 850) Neurology Start: 09-23-2023 End: 09-23-2023 Patient encounter procedure Emg 1 Neur [facility] (Max Weight: 850) [facility] Start: 08-20-2023 Telephone encounter Kevin Andersen TABITHA Work Phone: [facility] Comment on above: Patient Request Start: 08-19-2023 End: 08-19-2023 Patient encounter procedure Graham Flores MD Work Phone: [facility] Comment on above: RLS (restless legs s yndrome) (Primary Dx); History of total bilateral knee replacement; Paresthesia; Family history of iron deficiency Start: 07-30-2023 Telephone encounter Kevin Andersen TABITHA Work Phone: [facility] Comment on above: constipation problem ; Patient Question Start: 07-05-2023 Telephone encounter Kevin Andersen TABITHA Work Phone: [facility] Comment on above: Patient Question Start: 07-02-2023 End: 07-02-2023 Patient encounter procedure Kevin Andersen TABITHA Work Phone: [facility] Comment on above: Pencilling of stools (Primary Dx); Altered bowel habits; Generalized anxiety disorder; Benzodiazepine dependence (HCC); Orthostatic syncope; BPPV (benign paroxysmal positional vertigo), unspecified laterality; Paroxysmal supraventricular tachycardia (HCC); Mild intermittent asthma without complication; Acquired hypothyroidism; Polyarthralgia; Iron deficiency anemia, unspecified iron deficiency anemia type; RLS (restless legs syndrome) Start: 06-10-2023 Telephone encounter Kevin Miranda Ganesh LU Work Phone: [facility] Comment on above: Refill Request; Refe rral Request (Dr. Tabares Referral) Start: 06-03-2023 Telephone encounter Kevin Andersen JOSEBarbAnn Work Phone: [facility] Comment on above: Constipation Start: 05-30-2023 Telephone encounter Kevin Andersen JOSE-C Work Phone: [facility] Comment on above: Appointment; Results Start: 05-28-2023 End: 05-28-2023 Subsequent hospital visit by physician [facility] Work Phone: Radiology Comment on above: Pencilling of stools [R19.5] Start: 05-28-2023 End: 05-28-2023 Patient encounter procedure Kevin Andersen JOSE-Ann Work Phone: [facility] Comment on above: Pencilling of stools (Primary Dx); Acquired hypothyroidism; Elevated sed rate Start: 05-24-2023 Telephone encounter Kevin Andersen JOSEThierry Work Phone: [facility] Comment on above: Results Start: 02-13-2023 Telephone encounter Kevin Andersen PA-C Work Phone: [facility] Comment on above: Patient Question Start: 01-22-2023 End: 01-22-2023 Patient encounter procedure Kevin Andersen JOSEThierry Work Phone: [facility] Comment on above: Generalized anxiety disorder (Primary Dx); Palpitations; Lightheadedness; SOB (shortness of breath) Start: 01-07-2023 Telephone encounter Kevin Andersen JOSEThierry Work Phone: [facility] Comment on above: Orders Start: 01-04-2023 End: 01-04-2023 Patient encounter procedure Kevin Andersen JOSEThierry Work Phone: [facility] Comment on above: Disorder of bone and [...] 12-25-2022 End: 12-25-2022 Patient encounter procedure Kimberly GARCIA-Ann Work Phone: [facility] Comment on above: Bacterial sinusitis (Primary Dx) Start: 12-13-2022 Refill Kevin GARCIA-C Work Phone: [facility] Comment on above: Refill Request Start: 11-19-2022 Telephone encounter Kevin GARCIA-C Work Phone: [facility] Comment on above: Results Start: 11-13-2022 End: 11-13-2022 Subsequent hospital visit by physician [facility] Work Phone: Radiology Comment on above: Acute midline low ba ck pain without sciatica [M54.50] Start: 11-13-2022 End: 11-13-2022 Patient encounter procedure Kevin GARCIA-C Work Phone: [facility] Comment on above: Acute midline low ba ck pain without sciatica (Primary Dx); Rectal pain Start: 11-13-2022 Telephone encounter Kevin GARCIA-C Work Phone: [facility] Comment on above: Medication Problem Start: 11-09-2022 Telephone encounter Kevin GARCIA-C Work Phone: [facility] Comment on above: Patient Update Start: 11-07-2022 Telephone encounter Kevin GARCIA-C Work Phone: [facility] Comment on above: Medication Update Start: 11-07-2022 End: 11-07-2022 ambulatory [facility] Work Phone: Start: 11-07-2022 End: 11-07-2022 Patient encounter procedure [facility] Start: 11-06-2022 End: 11-06-2022 Patient encounter procedure Kevin Andersen PA-C Work Phone: [facility] Comment on above: Rapid heart rate (Pr imary Dx); SOB (shortness of breath); Iron deficiency Start: 10-15-2022 Refill Kevin calvin PA-C Work Phone: [facility] Comment on above: Refill Request Start: 10-04-2022 Telephone encounter Kvein Andersen JOSE-C Work Phone: [facility] Comment on above: Patient Update; Maya ent Question Start: 10-01-2022 End: 10-01-2022 Subsequent hospital visit by physician Nazanin [facility] Work Phone: Radiology Comment on above: Lower respiratory in fection [J22] Start: 10-01-2022 End: 10-01-2022 Patient encounter procedure Kevin Andersen JOSE-C Work Phone: [facility] Comment on above: Lower respiratory in fection (Primary Dx); Iron deficiency anemia, unspecified iron deficiency anemia type Start: 08-17-2022 Telephone encounter Shira arnold APRN.TARGET WORKER Work Phone: [facility] Comment on above: Results Start: 08-14-2022 End: 08-14-2022 Patient encounter procedure Shira Ordonez APRN.TARGET WORKER Work Phone: [facility] Comment on above: RLS (restless legs s yndrome) (Primary Dx); Iron deficiency; Generalized anxiety disorder Start: 08-09-2022 Telephone encounter Jonnie Mckeon MD Work Phone: [facility] Comment on above: Patient Question Start: 07-30-2022 Refill Troy Mckeon MD Work Phone: [facility] Comment on above: Medication Problem Start: 06-19-2022 Telephone encounter Jonnie Mckeon MD Work Phone: [facility] Comment on above: Mammogram Order Start: 04-23-2022 Telephone encounter Megan SOSA Work Phone: Psycholgy Comment on above: Returning Patient's Call Start: 04-18-2022 Telephone encounter Megan SOSA Work Phone: [facility] Comment on above: outreach Start: 04-06-2022 Chart abstracting Megan SOSA Work Phone: Psycholgy Start: 04-06-2022 End: 04-06-2022 Patient encounter procedure Shira Reinanorris GENERAL SURGEON.TARGET WORKER Work Phone: [facility] Comment on above: Anxiety with depress ion (Primary Dx) Start: 04-03-2021 End: 04-03-2021 Subsequent hospital visit by physician Nazanin [facility] Work Phone: Radiology Comment on above: Change in bowel move ment [R19.8] Start: 09-16-2019 End: 09-16-2019 Subsequent hospital visit by physician Alvin Elder Work Phone: [facility] Start: 08-07-2019 End: 08-07-2019 Subsequent hospital visit by physician Alvin Elder Work Phone: [facility] Start: 04-18-2019 Patient encounter procedure SHASHANK FARIA Facility:[facility] Start: 03-19-2019 End: 03-19-2019 Patient encounter procedure KRYS VITBASILSKIY Facility:[facility] Start: 02-17-2019 End: 02-17-2019 Patient encounter procedure KRYS VITBASILSKIY Facility:[facility] Start: 01-18-2019 End: 01-19-2019 Patient encounter procedure KRYS VITEBSKIY Facility:[facility] Start: 12-19-2018 End: 12-20-2018 Patient encounter procedure KRYS VITBASILSKIY Facility:[facility] Start: 11-19-2018 End: 11-20-2018 Patient encounter procedure KRYS VITEBSKIY Facility:[facility] Start: 10-20-2018 End: 10-21-2018 Patient encounter procedure KRYS SITASKIY Facility:[facility] Start: 09-20-2018 End: 09-21-2018 Patient encounter procedure KRYS REED Facility:[facility] Start: 08-21-2018 End: 08-22-2018 Patient encounter procedure KRYS REED Facility:[facility] Start: 07-22-2018 End: 07-23-2018 Patient encounter procedure KRYS REED Facility:[facility] Start: 06-22-2018 Patient encounter procedure KRYS REED Facility:[facility] Start: 05-23-2018 End: 05-23-2018 Patient encounter procedure KRYS REED Facility:[facility] Start: 04-23-2018 Patient encounter procedure KRYS REED Facility:[facility] Start: 01-31-2018 Patient encounter status [facility] Work Phone: Start: 04-30-2012 Evaluation and management of inpatient [facility]- Procedures Date Procedure Procedure Detail Performing Clinician Start: 03-15-2025 Urnls dip stick/tablet rgnt auto w/o microscopy Anitra Mancera APRN.TARGET WORKER Work Phone: Start: 03-15-2025 Adult depression screening assessment Nathalia Jay APRN.TARGET WORKER Work Phone: Start: 01-26-2025 Thyrotropin [Units/volume] in Serum or Plasma Quinten Franco MD Work Phone: Start: 06-16-2024 Us pelvic nonobstetric real-time image complete Anitra Mancera APRN.TARGET WORKER Work Phone: Start: 03-24-2024 Radiologic exam abdomen 1 view M Ruben Andersen PA-C Work Phone: Start: 01-17-2024 Ecg routine ecg w/least 12 lds i&r only Anitra Mancera APRN.BEND SORTER Work Phone: Start: 01-01-2024 History of appendectomy History of appendectomy Graham Flores MD Work Phone: Start: 09-23-2023 Nerve conduction studies 5-6 studies Graham Flores MD Work Phone: Start: 05-28-2023 Radiologic exam abdomen 1 view M RubenDocphin JOSE-[facility] Work Phone: Start: 01-22-2023 Ecg routine ecg w/least 12 lds i&r only [facility] Provider Start: 11-13-2022 Radex spine lumbosacral 2/3 views M Bleachers JOSE-C Work Phone: Start: 11-07-2022 Screening mammography Start: 11-06-2022 Ecg routine ecg w/least 12 lds i&r only [facility] Provider Start: 10-05-2022 Blood occult fecal hgb deter ia qual feces 1-3 M Qire-[facility] Work Phone: Start: 10-01-2022 Radiologic exam chest 2 views M Ruben Andersen JO[facility] Work Phone: Start: 04-03-2021 Radiologic exam abdomen 1 view Sena Mcfarlane APRN.TARGET WORKER Work Phone: Start: 08-07-2019 Radex hip unilateral with pelvis 1 view Alvin lEder Work Phone: Start: 08-07-2019 Radiologic exam both knees standing [employer] Alvin Elder Work Phone: Start: 08-07-2019 Radiologic examination knee 1/2 views Alvin Elder Work Phone: H/O: surgery History of [...] Abnormal serum level of lipase Anitra Mancera APRN.TARGET WORKER Work Phone: Plan of Treatment Date Care Activity Detail Author Start: 03-17-2034 DTaP/Tdap/Td Vaccines (3 - Td or Tdap) DTaP/Tdap/Td Vaccines (3 - Td or Tdap) [facility] Start: 03-17-2034 Urine microalbumin profile DTaP,Tdap,Td Vaccine (3 - Td or Tdap) [facility] Start: 05-17-2028 Diabetes Screening Diabetes Screening [facility] Start: 03-18-2028 Diabetes Screening Diabetes Screening [facility] Start: 11-23-2027 Diabetes Screening Diabetes Screening [facility] Start: 11-03-2027 Diabetes Screening Diabetes Screening [facility] Start: 06-16-2027 Diabetes Screening Diabetes Screening [facility] Start: 04-23-2027 Diabetes Screening Diabetes Screening [facility] Start: 01-01-2027 Diabetes Screening Diabetes Screening [facility] Start: 10-29-2026 Diabetes Screening Diabetes Screening [facility] Start: 07-02-2026 DIABETES SCREEN DIABETES SCREEN [facility] Start: 07-02-2026 Diabetes Screening Diabetes Screening [facility] Start: 05-01-2026 DIABETES SCREEN DIABETES SCREEN [facility] Start: 03-15-2026 Depression Screening Depression Screening [facility] Start: 01-26-2026 Thyroid stimulating hormone measurement TSH Level [facility] Start: 01-08-2026 DIABETES SCREEN DIABETES SCREEN [facility] Start: 01-01-2026 DIABETES SCREEN DIABETES SCREEN [facility] Start: 12-23-2025 DTaP/Tdap/Td vaccine (2 - Td) DTaP/Tdap/Td vaccine (2 - Td) [place] Start: 12-23-2025 Urine microalbumin profile [facility] Start: 11-06-2025 DIABETES SCREEN DIABETES SCREEN [facility] Start: 09-18-2025 DIABETES SCREEN DIABETES SCREEN [facility] Start: 09-07-2025 End: 09-07-2025 Patient encounter procedure 09/07/2025 10:40 AM EDT Office Visit Endocrinology [address] [place] [phone] Dasia Funes MD [address] [place] [phone] Hypothyroidism follow up Endocrinology Comment on above: Hypothyroidism follow up Start: 08-18-2025 End: 11-17-2025 Thyrotropin [Units/volume] in Serum or Plasma THYROID STIMULATING HORMONE Lab Routine Hypothyroidism, acquired Expected: 08/18/2025, Expires: 11/17/2025 [facility] Work Phone: Comment on above: Expected: 08/18/2025, Expires: Start: 08-18-2025 End: 11-17-2025 Thyroxine (T4) free [Mass/volume] in Serum or Plasma T4 FREE/FREE THYROXINE Lab Routine Hypothyroidism, acquired Expected: 08/18/2025, Expires: 11/17/2025 [facility] Comment on above: Expected: 08/18/2025, Expires: Start: 08-02-2025 Influ[facility] Start: 06-14-2025 End: 09-13-2025 CBC W Auto Differential panel - Blood COMPLETE BLOOD COUNT AND DIFFERENTIAL Lab Routine RLS (restless legs syndrome) Malignant neoplasm of pancreas, unspecified location of malignancy (HCC) Expected: 06/14/2025, Expires: 09/13/2025 [facility] Work Phone: Comment on above: Expected: 06/14/2025, Expires: Start: 06-14-2025 End: 09-13-2025 Ferritin [Mass/volume] in Serum or Plasma FERRITIN Lab Routine RLS (restless legs syndrome) Malignant neoplasm of pancreas, unspecified location of malignancy (HCC) Expected: 06/14/2025, Expires: 09/13/2025 [facility] Comment on above: Expected: 06/14/2025, Expires: Start: 06-14-2025 End: 09-13-2025 Iron and Iron binding capacity panel - Serum or Plasma IRON AND TIBC Lab Routine RLS (restless legs syndrome) Malignant neoplasm of pancreas, unspecified location of malignancy (HCC) Iron deficiency anemia, unspecified iron deficiency anemia type Expected: 06/14/2025, Expires: 09/13/2025 [facility] Comment on above: Expected: 06/14/2025, Expires: Start: 06-14-2025 End: 06-14-2025 Patient encounter procedure 06/14/2025 10:40 AM EDT Office Visit Family Medicine [facility] [address] [facility] [place] [address] Anitra Mancera APRN.TARGET WORKER [address] [place], [place] [phone] 3 month exam, pancreatic cancer [facility] Comment on above: 3 month exam, pancreatic cancer Start: 05-31-2025 [facility] Comment on above: [facility] from 08/02/2024 (Declined at t his time) Start: 05-17-2025 End: 08-16-2025 Comprehensive metabolic 2000 panel - Serum or Plasma [facility] Comment on above: Expected: 05/17/2025, Expires: Start: 05-17-2025 End: 08-16-2025 Magnesium [Mass/volume] in Serum or Plasma [facility] Comment on above: Expected: 05/17/2025, Expires: Start: 05-17-2025 End: 08-16-2025 Nortriptyline [Mass/volume] in Serum or Plasma [facility] Work Phone: Comment on above: Expected: 05/17/2025, Expires: Start: 05-14-2025 End: 05-14-2025 Patient encounter procedure 05/14/2025 11:40 AM EDT Office Visit Endocrinology [address] [place] [phone] Dasia Funes MD [address] [place] [phone] follow up to further discuss Hypothyroidism Endocrinology Comment on above: follow up to further discuss Hypothyroid ism Start: 05-08-2025 DIABETES SCREEN DIABETES SCREEN [facility] Start: 05-04-2025 End: 05-04-2025 Patient encounter procedure 05/04/2025 10:00 AM EDT Office Visit Endocrinology [address] [place] [phone] Dasia Funes MD [address] [place] [phone] Hypothyroidism, acquired [E03.9] Endocrinology Comment on above: Hypothyroidism, acquired [E03.9] Start: 04-12-2025 Covid-19 Vaccine ( season) Covid-19 Vaccine ( season) [facility] Start: 03-29-2025 End: 06-28-2025 Urinalysis complete panel - Urine URINALYSIS (WITH MICROSCOPIC) WITH CULTURE IF INDICATED Lab Routine Urinary urgency Expected: 03/29/2025, Expires: 06/28/2025 [facility] Work Phone: Comment on above: Expected: 03/29/2025, Expires: Start: 03-29-2025 End: 03-29-2025 ambulatory 03/29/2025 10:15 AM EDT Results Only [facility] [address] [place] [address] [facility] Start: 03-18-2025 End: 06-17-2025 Comprehensive metabolic 2000 panel - Serum or Plasma [facility] Work Phone: Comment on above: Expected: 03/18/2025, Expires: Start: 03-18-2025 End: 06-17-2025 Magnesium [Mass/volume] in Serum or Plasma [facility] Comment on above: Expected: 03/18/2025, Expires: Start: 02-15-2025 End: 02-15-2025 Patient encounter procedure General Surgery Comment on above: 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 Ongoing nausea and bloating. Completed TX for positive H pylori. [facility] ER CT scan read by radiology and recommended surgical FNA Pancreas Cystic Lesi on - Refer from PCP Start: 02-10-2025 End: 02-10-2025 Esophagoscopy flexible transoral ultrasound exam ESOPHAGOSCOPIC ULTRASOUND EXAM Other specified diseases of pancreas 02/10/2025 11:55 AM EDT [facility] Gastroenterology Start: 02-09-2025 End: 02-09-2025 Patient encounter procedure 02/09/2025 1:50 PM EDT Office Visit Gastroenterology [place] [address] [place] [id number] Lindsey Stapleton PA-C [address] [facility] [place] [address] 6 month follow up office visit, chronic constipation, pancreatic lesion Gastroenterology [facility] Comment on above: 6 month follow up office visit, chronic constipation, pancreatic lesion Start: 02-05-2025 DIABETES SCREEN DIABETES SCREEN [facility] Start: 01-15-2025 End: 01-15-2025 Patient encounter procedure 01/15/2025 9:00 AM EST Appointment Radiology [address] [place], [place] [phone] CYST OF PANCREAS - OUTSIDE ORDER SCANNED INTO [facility] Radiology Comment on above: CYST OF PANCREAS - OUTSIDE ORDER SCANNED INTO [facility] Start: 01-01-2025 Shingrix Vaccine (1 of 2) Shingrix Vaccine (1 of 2) [facility] Comment on above: Postponed from 1985 (Declined at t his time) Start: 12-30-2024 End: 12-30-2024 Nursing evaluation of patient and report 12/30/2024 9:45 AM EST Nurse Visit Family Kulwinder [place] [address] [facility] [place], [place] [phone] Nurse, Id [address] [place] [phone] H. pylori infection [A04.8] Family [facility] Comment on above: H. pylori infection [A04.8] Start: 12-18-2024 End: 03-19-2025 Helicobacter pylori [Quantitative] in Stomach by urea breath test BREATH TEST FOR HELICOBACTER PYLORI Lab Routine H. pylori infection Expected: 12/18/2024, Expires: 03/19/2025 [facility] Work Phone: Comment on above: Expected: 12/18/2024, Expires: Start: 12-18-2024 End: 12-18-2024 Patient encounter procedure 12/18/2024 10:00 AM EST Office Visit Family Kulwinder Gil[place] [address] [facility] [place] [address] Anitra Mancera APRN.TARGET WORKER [address] [place] [address] 6 month f/u [facility] Comment on above: 6 month f/u Start: 12-02-2024 Advance Directive Discussion Advance Directive Discussion [facility] Start: 11-27-2024 End: 11-27-2024 Patient encounter procedure 11/27/2024 11:00 AM EST Office Visit [facility] [place] [address] [place] [address] Anitra Mancera APRN.TARGET WORKER [address] [place] [address] 4 week medication/mouth f/u [facility] Comment on above: 4 week medication/mouth f/u Start: 11-23-2024 End: 02-22-2025 Amylase [Enzymatic activity/volume] in Serum or Plasma [facility] Comment on above: Expected: 11/23/2024, Expires: Start: 11-23-2024 End: 02-22-2025 Basic metabolic 2000 panel - Serum or Plasma [facility] Work Phone: Comment on above: Expected: 11/23/2024, Expires: Start: 11-23-2024 End: 02-22-2025 Helicobacter pylori IgG Ab [Presence] in Serum or Plasma by Immunoassay [facility] Comment on above: Expected: 11/23/2024, Expires: 5 Start: 11-23-2024 End: 02-22-2025 Iron and Iron binding capacity panel - Serum or Plasma [facility] Comment on above: Expected: 11/23/2024, Expires: Start: 11-23-2024 End: 02-22-2025 Lipase [Enzymatic activity/volume] in Serum or Plasma [facility] Comment on above: Expected: 11/23/2024, Expires: Start: 11-23-2024 End: 01-22-2026 XR Knee - bilateral 4 Views [facility] Comment on above: Expected: 11/23/2024, Expires: 6 Start: 11-03-2024 End: 02-02-2025 25-hydroxyvitamin D3 [Mass/volume] in Serum or Plasma [facility] Comment on above: Expected: 11/03/2024, Expires: 5 Start: 11-03-2024 End: 02-02-2025 CBC W Auto Differential panel - Blood [facility] Work Phone: Comment on above: Expected: 11/03/2024, Expires: 5 Start: 11-03-2024 End: 02-02-2025 Cobalamin (Vitamin B12) [Mass/volume] in Serum or Plasma [facility] Comment on above: Expected: 11/03/2024, Expires: 5 Start: 11-03-2024 End: 02-02-2025 Comprehensive metabolic 2000 panel - Serum or Plasma [facility] Comment on above: Expected: 11/03/2024, Expires: 5 Start: 11-03-2024 End: 02-02-2025 Hemoglobin A1c in Blood [facility] Comment on above: Expected: 11/03/2024, Expires: Start: 11-03-2024 End: 02-02-2025 LIPID PANEL, NONFASTING [facility] Comment on above: Expected: 11/03/2024, Expires: Start: 11-03-2024 End: 02-02-2025 Magnesium [Mass/volume] in Serum or Plasma [facility] Comment on above: Expected: 11/03/2024, Expires: Start: 10-03-2024 Covid-19 Vaccine () Covid-19 Vaccine () [facility] Comment on above: Postponed from 08/02/2023 (Declined at t his time) Start: 08-21-2024 End: 08-21-2024 Patient encounter procedure 08/21/2024 9:20 AM EDT Office Visit Family Medicine [place] [address] [facility] [place] [phone] Anitra Mancera APRN.TARGET WORKER [address] [place], [place] [phone] burning mouth syndrome, 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 [facility] [place] Comment on above: burning mouth syndrome, unable to see sp ecialist until October Start: 08-19-2024 End: 11-18-2024 Thyrotropin [Units/volume] in Serum or Plasma THYROID STIMULATING HORMONE Lab Routine Acquired hypothyroidism Expected: 08/19/2024, Expires: 11/18/2024 [facility] Work Phone: Comment on above: Expected: 08/19/2024, Expires: Start: 08-12-2024 End: 08-12-2024 Patient encounter procedure 08/12/2024 1:50 PM EDT Office Visit Gastroenterology [place] [address] [facility] [place] [phone] Lindsey Stapleton PA-C [address] [place] [address] 2 month follow up, (first avialable ok'd Lindsey Stapleton), acute constipation, abnormal weight loss, ct done at [facility] [place] Comment on above: 2 month follow up, (first avialable ok'd Lindsey Stapleton), acute constipation, abnormal weight loss, ct done at [facility] Start: 08-02-2024 COVID-19 Vaccine ( season) COVID-19 Vaccine ( season) [facility] Start: 08-02-2024 Covid-19 Vaccine ( season) Covid-19 Vaccine ( season) [facility] Start: 08-02-2024 Covid-19 Vaccine ( season) Covid-19 Vaccine ( season) [facility] Start: 08-02-2024 Influenza vaccination Influenza Vaccine (#[facility] Start: 07-08-2024 End: 07-08-2024 Patient encounter procedure 07/08/2024 2:00 PM EDT Office Visit OB/Gynecology [address] [place] [id number] Shoshana Chambers APRN.CNM [address] 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] Start: 06-26-2024 End: 06-26-2024 Patient encounter procedure 06/26/2024 9:20 AM EDT Appointment Radiology [address] [place] [address] MRI PANC/JENNIFER WO/W IVCON Radiology Comment on above: MRI PANC/JENNIFER WO/W IVCON Start: 06-16-2024 End: 09-15-2024 Basic metabolic 2000 panel - Serum or Plasma [facility] Comment on above: Expected: 06/16/2024, Expires: Start: 06-16-2024 End: 09-15-2024 Thyrotropin [Units/volume] in Serum or Plasma [facility] Work Phone: Comment on above: Expected: 06/16/2024, Expires: 4 Start: 04-23-2024 End: 04-23-2024 Patient encounter procedure Cat Scan Comment on above: Acute constipation [K59.00] Start: 04-21-2024 End: 04-21-2024 Patient encounter procedure 04/21/2024 2:00 PM EDT Office Visit [facility] [place] [address] [facility] [place] [address] Kevin Andersen PA-C [address] [place] [address] 4 week follow up [facility] [place] Comment on above: 4 week follow up Start: 04-12-2024 Covid-19 Vaccine () Covid-19 Vaccine () [facility] Start: 04-02-2024 End: 07-02-2024 CREATININE BLD CREATININE BLD Lab Routine Acute constipation Abnormal weight loss Constipation, unspecified constipation type Expected: 04/02/2024, Expires: 07/02/2024 [facility] Comment on above: Expected: 04/02/2024, Expires: 4 Start: 04-02-2024 End: 04-02-2024 Patient encounter procedure 04/02/2024 9:40 AM EDT Office Visit Gastroenterology [place] [address] [facility] [place] [address] Lindsey Stapleton PA-C [address] [place] [address] Acute constipation [K59.00] Gastroenterology [place] Comment on above: Acute constipation [K59.00] Start: 12-02-2023 Behavioral Health Screening Behavioral Health Screening [facility] Start: 08-19-2023 End: 10-19-2023 CBC W Auto Differential panel - Blood CBC + DIFF Lab Routine Family history of iron deficiency Expected: 08/19/2023, Expires: 10/19/2023 [facility] Work Phone: Comment on above: Expected: 08/19/2023, Expires: 3 Start: 08-19-2023 End: 10-19-2023 Iron and Iron binding capacity panel - Serum or Plasma IRON + TIBC Lab Routine Family history of iron deficiency Expected: 08/19/2023, Expires: 10/19/2023 [facility] Work Phone: Comment on above: Expected: 08/19/2023, Expires: 3 Start: 08-02-2023 Covid-19 Vaccine () Covid-19 Vaccine () [facility] Start: 08-02-2023 Influenza vaccination [facility] Start: 07-02-2023 End: 09-01-2023 JUAN J BY IFA WITH REFLEX [facility] Work Phone: Comment on above: Expected: 07/02/2023, Expires: Start: 07-02-2023 End: 09-01-2023 C reactive protein [Mass/volume] in Serum or Plasma [facility] Work Phone: Comment on above: Expected: 07/02/2023, Expires: Start: 07-02-2023 End: 09-01-2023 Ferritin [Mass/volume] in Serum or Plasma [facility] Work Phone: Comment on above: Expected: 07/02/2023, Expires: Start: 07-02-2023 End: 09-01-2023 Iron and Iron binding capacity panel - Serum or Plasma [facility] Work Phone: Comment on above: Expected: 07/02/2023, Expires: Start: 02-07-2023 COVID-19 VACCINE (6 - Pfizer series) COVID-19 VACCINE (6 - Pfizer series) [facility] Start: 01-04-2023 End: 03-06-2023 CBC W Auto Differential panel - Blood CBC + DIFF Lab Routine RLS (restless legs syndrome) Anxiety with depression Acquired hypothyroidism Paroxysmal supraventricular tachycardia (HCC) Expected: 01/04/2023, Expires: 03/06/2023 [facility] Work Phone: Comment on above: Expected: 01/04/2023, Expires: Start: 01-04-2023 End: 03-06-2023 Comprehensive metabolic 2000 panel - Serum or Plasma COMP METABOLIC PANEL Lab Routine RLS (restless legs syndrome) Anxiety with depression Acquired hypothyroidism Paroxysmal supraventricular tachycardia (HCC) Expected: 01/04/2023, Expires: 03/06/2023 [facility] Work Phone: Comment on above: Expected: 01/04/2023, Expires: Start: 01-04-2023 End: 03-06-2023 Ferritin [Mass/volume] in Serum or Plasma FERRITIN BLD Lab Routine RLS (restless legs syndrome) Iron deficiency Expected: 01/04/2023, Expires: 03/06/2023 [facility] Work Phone: Comment on above: Expected: 01/04/2023, Expires: 3 Start: 01-04-2023 End: 03-06-2023 Iron and Iron binding capacity panel - Serum or Plasma IRON + TIBC Lab Routine RLS (restless legs syndrome) Iron deficiency anemia secondary to inadequate dietary iron intake Expected: 01/04/2023, Expires: 03/06/2023 [facility] Work Phone: Comment on above: Expected: 01/04/2023, Expires: 3 Start: 01-04-2023 End: 03-06-2023 Magnesium [Mass/volume] in Serum or Plasma MAGNESIUM BLD Lab Routine RLS (restless legs syndrome) Paroxysmal supraventricular tachycardia (HCC) Expected: 01/04/2023, Expires: 03/06/2023 [facility] Work Phone: Comment on above: Expected: 01/04/2023, Expires: 3 Start: 01-04-2023 End: 03-06-2023 Thyrotropin [Units/volume] in Serum or Plasma TSH BLD Lab Routine Acquired hypothyroidism Expected: 01/04/2023, Expires: 03/06/2023 [facility] Work Phone: Comment on above: Expected: 01/04/2023, Expires: 3 Start: 12-02-2022 ADVANCE DIRECTIVE DISCUSSION ADVANCE DIRECTIVE DISCUSSION [facility] Start: 12-02-2022 DEPRESSION ASSESSMENT DEPRESSION ASSESSMENT [facility] Start: 11-06-2022 End: 01-06-2023 Basic metabolic 2000 panel - Serum or Plasma [facility] Work Phone: Comment on above: Expected: 11/06/2022, Expires: 3 Start: 11-06-2022 End: 01-06-2023 CBC W Auto Differential panel - Blood [facility] Work Phone: Comment on above: Expected: 11/06/2022, Expires: 3 Start: 11-06-2022 End: 01-06-2023 Ferritin [Mass/volume] in Serum or Plasma [facility] Work Phone: Comment on above: Expected: 11/06/2022, Expires: 3 Start: 11-06-2022 End: 01-06-2023 Iron and Iron binding capacity panel - Serum or Plasma [facility] Work Phone: Comment on above: Expected: 11/06/2022, Expires: 3 Start: 11-06-2022 End: 01-06-2023 Magnesium [Mass/volume] in Serum or Plasma [facility] Work Phone: Comment on above: Expected: 11/06/2022, Expires: 3 Start: 11-06-2022 End: 01-06-2023 Natriuretic peptide.B prohormone N-Terminal [Mass/volume] in Serum or Plasma [facility] Work Phone: Comment on above: Expected: 11/06/2022, Expires: 3 Start: 11-06-2022 End: 01-06-2023 Thyrotropin [Units/volume] in Serum or Plasma [facility] Work Phone: Comment on above: Expected: 11/06/2022, Expires: 3 Start: 10-01-2022 End: 12-01-2022 CBC W Auto Differential panel - Blood [facility] Work Phone: Comment on above: Expected: 10/01/2022, Expires: 2 Start: 10-01-2022 End: 12-01-2022 Ferritin [Mass/volume] in Serum or Plasma [facility] Work Phone: Comment on above: Expected: 10/01/2022, Expires: 2 Start: 10-01-2022 End: 12-01-2022 Iron and Iron binding capacity panel - Serum or Plasma [facility] Work Phone: Comment on above: Expected: 10/01/2022, Expires: 2 Start: 09-28-2022 End: 11-28-2022 Ferritin [Mass/volume] in Serum or Plasma FERRITIN BLD Lab Routine Iron deficiency anemia, unspecified iron deficiency anemia type Expected: 09/28/2022, Expires: 11/28/2022 [facility] Work Phone: Comment on above: Expected: 09/28/2022, Expires: 2 Start: 08-29-2022 End: 10-29-2022 Iron and Iron binding capacity panel - Serum or Plasma IRON + TIBC Lab Routine Iron deficiency anemia, unspecified iron deficiency anemia type Expected: 08/29/2022, Expires: 10/29/2022 [facility] Work Phone: Comment on above: Expected: 08/29/2022, Expires: 2 Start: 08-14-2022 End: 10-14-2022 Ferritin [Mass/volume] in Serum or Plasma [facility] Work Phone: Comment on above: Expected: 08/14/2022, Expires: 2 Start: 08-14-2022 End: 10-14-2022 Iron and Iron binding capacity panel - Serum or Plasma [facility] Work Phone: Comment on above: Expected: 08/14/2022, Expires: 2 Start: 08-02-2022 Influenza vaccination INFLUENZA (#1) [facility] Start: 06-01-2022 COVID-19 VACCINE (5 - Booster for Pfizer series) COVID-19 VACCINE (5 - Booster for Pfizer series) [facility] Start: 12-02-2021 ADVANCE DIRECTIVE DISCUSSION ADVANCE DIRECTIVE DISCUSSION [facility] Start: 12-02-2021 DEPRESSION ASSESSMENT DEPRESSION ASSESSMENT [facility] Start: 08-07-2019 Annual Wellness Visit (AWV) Annual Wellness Visit (AWV) [place], [place] Start: 08-02-2019 Influenza vaccination Flu vaccine (#1) [place], [place] Start: 2010 RSV Immunization for Adults (1 - 1-dose 75+ series) RSV Immunization for Adults (1 - 1-dose 75+ series) [facility] Start: 2000 DEXA (modify frequency per FRAX score) DEXA (modify frequency per FRAX score) [place], [place] Start: 2000 Pneumococcal 65+ years Vaccine (1 of 2 - PCV13) Pneumococcal 65+ years Vaccine (1 of 2 - PCV13) [place], [place] Start: 2000 Pneumococcal 65+ years Vaccine (2 of 2 - PPSV23) Pneumococcal 65+ years Vaccine (2 of 2 - PPSV23) [place], [place] Start: 08-02-2000 Medicare Annual Wellness Visit Medicare Annual Wellness Visit [facility] Start: 1998 Annual Wellness Visit (AWV) Annual Wellness Visit (AWV) [place], [place] Start: 1995 RSV Vaccine (1 - 1-dose 60+ series) RSV Vaccine (1 - 1-dose 60+ series) [facility] Start: 1985 Shingles Vaccine (1 of 2) Shingles Vaccine (1 of 2) [place], [place] Start: 1985 SHINGRIX VACCINE (1 of 2) SHINGRIX VACCINE (1 of 2) [facility] Start: 1985 Zoster Vaccines (1 of 2) Zoster Vaccines (1 of 2) [facility] Start: 1954 DTaP/Tdap/Td vaccine (1 - Tdap) DTaP/Tdap/Td vaccine (1 - Tdap) [place], [place] Start: 1953 Depression Screening Depression Screening [facility] Start: 1953 SPIROMETRY SPIROMETRY [facility] Start: 1947 Depression Monitoring Depression Monitoring [facility] Start: 1935 Medicare Annual Wellness (AWV) Medicare Annual Wellness (AWV) [facility] Start: 1935 Screening for osteoporosis Bone Density Scan [facility] Start: 1935 Thyroid Nodule Ultrasound Thyroid Nodule Ultrasound [facility] Start: 1935 TSH testing TSH testing [place], [place] End: 05-02-2025 CT Abdomen and Pelvis W contrast IV CT ABD/PEL W IVCON Radiology Routine Acute constipation Abnormal weight loss Constipation, unspecified constipation type 1 Occurrences starting 04/02/2024 until 05/02/2025 [facility] Work Phone: Comment on above: 1 Occurrences starting 04/02/2024 until 05/02/2025 CT Abdomen and Pelvi s W contrast IV CT ABD/PEL W IVCON Radiology Routine Acute constipation Abnormal weight loss Constipation, unspecified constipation type 04/23/2024 10:23 AM EDT [facility] Work Phone: End: 10-09-2025 DBT Breast - bilateral screening KIP SCREENING W DRISS Radiology Routine Encounter for screening mammogram for malignant neoplasm of breast 1 Occurrences starting 09/10/2024 until 10/09/2025 [facility] Work Phone: Comment on above: 1 Occurrences starting 09/10/2024 until 10/09/2025 End: 02-03-2024 DXA-AXIAL SKELETON DXA-AXIAL SKELETON Radiology Routine Asymptomatic menopausal state 1 Occurrences starting 01/04/2023 until 02/03/2024 [facility] Work Phone: Comment on above: 1 Occurrences starting 01/04/2023 until 02/03/2024 End: 11-06-2023 ECG COMPLETE ECG COMPLETE ECG Routine Rapid heart rate SOB (shortness of breath) 1 Occurrences starting 11/06/2022 until 11/06/2023 [facility] Work Phone: Comment on above: 1 Occurrences starting 11/06/2022 until 11/06/2023 ECG COMPLETE ECG COMPLETE ECG 11/06/2022 12:25 PM EST [facility] End: 01-22-2024 ECG COMPLETE ECG COMPLETE ECG Routine Palpitations Lightheadedness SOB (shortness of breath) 1 Occurrences starting 01/22/2023 until 01/22/2024 [facility] Work Phone: Comment on above: 1 Occurrences starting 01/22/2023 until 01/22/2024 ECG COMPLETE ECG COMPLETE ECG 01/22/2023 12:48 PM EST [facility] ECG COMPLETE ECG COMPLETE ECG Routine Palpitations 01/17/2024 3:18 PM EST [facility] Work Phone: End: 01-17-2025 Echocardiography ECHO Cardiology Routine Palpitations Shortness of breath 1 Occurrences starting 01/17/2024 until 01/17/2025 [facility] Work Phone: Comment on above: 1 Occurrences starting 01/17/2024 until 01/17/2025 End: 08-19-2024 EMG(NEURO/NI) EMG(NEURO/NI) EMG Routine Paresthesia 1 Occurrences starting 08/19/2023 until 08/19/2024 [facility] Work Phone: Comment on above: 1 Occurrences starting 08/19/2023 until 08/19/2024 Fine needle aspiration [facility] Work Phone: Comment on above: Release Upon Ordering for 1 Occurrences starting 02/10/2025, 1 completed Helicobacter pylori [Quantitative] in Stomach by urea breath test BREATH TEST FOR HELICOBACTER PYLORI Lab Routine H. pylori infection 12/30/2024 10:17 AM EST [facility] Work Phone: HEMOCCULT SINGLE B/O HEMOCCULT S LONG B/O Lab Routine Rectal pain Ordered: 11/13/2022 [facility] Work Phone: Comment on above: Ordered: 11/13/2022 Hemoglobin.gastroint solitario nal.lower [Presence] in Stool by Immunoassay FECAL OCCULT BLOOD TEST Lab Routine Family history of iron deficiency Ordered: 08/19/2023 [facility] Work Phone: Comment on above: Ordered: 08/19/2023 End: 11-01-2024 KIP SCREENING KIP SCREENING Radiology Routine Encounter for screening mammogram for malignant neoplasm of breast 1 Occurrences starting 10/03/2023 until 11/01/2024 [facility] Work Phone: Comment on above: 1 Occurrences starting 10/03/2023 until 11/01/2024 MR Biliary ducts and Pancreatic duct WO and W contrast IV MRI PANC/JENNIFER WO/W IVCON Radiology Routine Abnormal weight loss Pancreatic lesion 06/26/2024 10:29 AM EDT [facility] Work Phone: MR Unspecified body region 3D post processing MRI 3D POST PROCESSING Radiology Routine Abnormal weight loss Pancreatic lesion 06/26/2024 10:29 AM EDT [facility] End: 02-15-2025 NM Heart Perfusion W stress and W radionuclide IV NM CARDIAC PERF STRESS/PHARM Radiology Routine Palpitations Shortness of breath 1 Occurrences starting 01/17/2024 until 02/15/2025 [facility] Work Phone: Comment on above: 1 Occurrences starting 01/17/2024 until 02/15/2025 OUTSIDE VENDOR CARDI AC OUTPATIENT EXTENDED RHYTHM RECORDING (WITHOUT TELEMETRY) OUTSIDE VENDOR CARDIAC OUTPATIENT EXTENDED RHYTHM RECORDING (WITHOUT TELEMETRY) Holter Routine Palpitations Lightheadedness SOB (shortness of breath) Ordered: 01/22/2023 [facility] Work Phone: Comment on above: Ordered: 01/22/2023 End: 12-13-2023 Radex spine lumbosacral 2/3 views XR LUMBAR GENERAL 3V AP/LAT/L5-S1 Radiology Routine Acute midline low back pain without sciatica 1 Occurrences starting 11/13/2022 until 12/13/2023 [facility] Work Phone: Comment on above: 1 Occurrences starting 11/13/2022 until 12/13/2023 Radex spine lumbosac ral 2/3 views XR LUMBAR GENERAL 3V AP/LAT/L5-S1 Radiology Routine Acute midline low back pain without sciatica 11/13/2022 4:35 PM EST [facility] Work Phone: End: 06-26-2024 XR ABDOMEN 1V SUPINE XR ABDOMEN 1V SUPINE Radiology Routine Pencilling of stools 1 Occurrences starting 05/28/2023 until 06/26/2024 [facility] Work Phone: Comment on above: 1 Occurrences starting 05/28/2023 until 06/26/2024 XR ABDOMEN 1V SUPINE XR ABDOMEN 1V SUPINE Radiology Routine Pencilling of stools 05/28/2023 12:39 PM EDT [facility] Work Phone: End: 04-23-2025 XR Abdomen Supine and Upright XR ABDOMEN 1V SUPINE Radiology Routine Acute constipation 1 Occurrences starting 03/24/2024 until 04/23/2025 [facility] Work Phone: Comment on above: 1 Occurrences starting 03/24/2024 until 04/23/2025 XR Abdomen Supine an d Upright XR ABDOMEN 1V SUPINE Radiology Routine Acute constipation 03/24/2024 12:22 PM EDT [facility]: 09-16-2019 XR LUMBAR SPINE (2-3 VIEWS) XR LUMBAR SPINE (2-3 VIEWS) Imaging Routine Once for 1 Occurrences starting 09/16/2019 until 09/16/2019 [facility] [place] Comment on above: Once for 1 Occurrences starting 09/16/20 19 until 09/16/2019 XR LUMBAR SPINE (2-3 VIEWS) XR LUMBAR SPINE (2-3 VIEWS) Imaging Routine 09/16/2019 1:45 PM EDT [facility] [place] Immunizations Immunization Date Immunization Notes Care Provider Annette shell 10-13-2024 COVID-19 vaccine, ag e 12+ yr ([employer] [facility]) Anitra Suppan GENERAL SURGEON.TARGET WORKER Work Phone: [facility] 09-01-2024 influenza, high dose seasonal, preservative-free Anitra Suppan GENERAL SURGEON.TARGET WORKER Work Phone: [facility] 09-01-2024 influenza virus vaccine, unspecified formulation Anitra Suppan GENERAL SURGEON.TARGET WORKER Work Phone: [facility] 03-17-2024 TD(adult) unspecifie d formulation Shoshana Perry GENERAL SURGEON.TARGET WORKER Work Phone: [facility] Work Phone: 03-17-2024 tetanus and diphther ia toxoids, adsorbed, preservative free, for adult use (5 Lf of tetanus toxoid and 2 Lf of diphtheria toxoid) Shoshana Perry GENERAL SURGEON.TARGET WORKER Work Phone: [facility] 12-18-2023 respiratory syncytia l virus (RSV) vaccine, bivalent (ABRYSVO) Graham Flores MD Work Phone: [facility] 09-03-2023 influenza (HD-IIV4) vaccine, age 65+ yr, high dose, quadrivalent, PF (FLUZONE HIGH-DOSE) CODY Andersen PA-C Work Phone: [facility] 09-03-2023 influenza virus vaccine, unspecified formulation Lindsey Stapleton PA-C Work Phone: [facility] 09-11-2022 influenza (HD-IIV4) vaccine, age 65+ yr, high dose, quadrivalent, PF (FLUZONE HIGH-DOSE) NA Andersen PA-C Work Phone: [facility] 09-11-2022 influenza, high dose seasonal, preservative-free NA Andersen PA-C Work Phone: [facility] 09-11-2022 influenza virus vaccine, unspecified formulation NA Andersen PA-C Work Phone: [facility] 04-06-2022 COVID-19 vaccine, ag e 12+ yr (PFIZER-BIONTECH - HODGES TOP) Megan Saab ROBOTICS TESTING TECHNICIAN Work Phone: [facility] 08-30-2021 influenza (HD-IIV4) vaccine, age 65+ yr, high dose, quadrivalent, PF (FLUZONE HIGH-DOSE) NA Andersen PA-C Work Phone: [facility] 01-19-2021 COVID-19 vaccine, ag e 12+ yr (PFIZER-BIONTECH - PURPLE TOP) Megan Saab ROBOTICS TESTING TECHNICIAN Work Phone: [facility] 12-29-2020 COVID-19 vaccine, ag e 12+ yr (PFIZER-BIONTECH - PURPLE TOP) Mgean Saab ROBOTICS TESTING TECHNICIAN Work Phone: [facility] Work Phone: 08-30-2020 influenza (HD-IIV4) vaccine, age 65+ yr, high dose, quadrivalent, PF (FLUZONE HIGH-DOSE) NA Andersen PA-C Work Phone: [facility] 08-30-2020 influenza, high dose seasonal, preservative-free Megan Saab ROBOTICS TESTING TECHNICIAN Work Phone: [facility] 09-20-2019 influenza, high dose seasonal, preservative-free Megan Saab ROBOTICS TESTING TECHNICIAN Work Phone: [facility] 09-20-2019 pneumococcal polysaccharide vaccine, 23 valent Megan Saab ROBOTICS TESTING TECHNICIAN Work Phone: [facility] 09-11-2018 influenza, high dose seasonal, preservative-free Megan Saab ROBOTICS TESTING TECHNICIAN Work Phone: [facility] 09-11-2018 pneumococcal conjuga te vaccine, 13 valent Megan Saab ROBOTICS TESTING TECHNICIAN Work Phone: [facility] 08-15-2017 influenza, high dose seasonal, preservative-free Megan Saab ROBOTICS TESTING TECHNICIAN Work Phone: [facility] 10-14-2016 influenza, high dose seasonal, preservative-free Megan Saab ROBOTICS TESTING TECHNICIAN Work Phone: [facility] 12-23-2015 pneumococcal conjuga te vaccine, 13 valent Megan Saab ROBOTICS TESTING TECHNICIAN Work Phone: [facility] 12-23-2015 tetanus toxoid, redu leticia diphtheria toxoid, and acellular pertussis vaccine, adsorbed Megan Saab ROBOTICS TESTING TECHNICIAN Work Phone: [facility] 09-01-2015 influenza, high dose seasonal, preservative-free NA Andersen PA-C Work Phone: [facility] 07-10-2015 influenza, high dose seasonal, preservative-free Megan Saab ROBOTICS TESTING TECHNICIAN Work Phone: [facility] Work Phone: 09-25-2013 influenza, seasonal, injectable NA Andersen PA-C Work Phone: [facility] 10-18-2008 influenza virus vaccine, whole virus NA Andersen PA-C Work Phone: [facility] 2000 pneumococcal polysaccharide vaccine, 23 valent Megan Saab ROBOTICS TESTING TECHNICIAN Work Phone: [facility] Payers Date Payer Category Payer Self-pay [id number] 2019 Other [employer] [id number] 2019 Private Health Insurance [employer] [place] [place] [id number] 2019-Present [phone] [address] [place] [id number] Indemnity [id number] 2019 Private Health Insurance [id number] 2019 Private Health Insurance [id number] 2019 Medicare MEDICARE MEDICAR E PART A AND B [id number] 2019-Present [phone] [place] [address] xxxxxxxxxxx [id number] 2019 Private Health Insurance [employer] CO [employer] [place] COMP xxxxxxxxx 2019-Present [address] [place] [id number] xxxxxxxxx [id number] 2000 Medicare MEDICARE MEDICAR E A AND B [id number] 2000-Present [phone] [place] [address] Medicare [id number] 2000 Medicare [id number] .[id number] 2000 Medicare [id number] 1935 Unknown [id number] 2.16.840.1.665074.3.579.2 .278 1935 Unknown [id number] 2.16.840.1.861052.3.579.2 .278 1935 Unknown [id number] 2.16.840.1.285461.3.579.2 .278 1935 Unknown [id number] 2.16.840.1.158071.3.579.2 .278 1935 Unknown [id number] 2.16840.1.146023.3.579.2 .278 1935 Unknown [id number] 2.16840.1.465206.3.579.2 .278 1935 Unknown [id number] 2.16840.1.122383.3.579.2 .278 1935 Unknown [id number] 2.16840.1.539983.3.579.2 .278 1935 Unknown [id number] 2.16.840.1.943232.3.579.2 .278 1935 Unknown [id number] 2.16.840.1.999400.3.579.2 .278 1935 Unknown [id number] 2.16.840.1.673844.3.579.2 .278 1935 Unknown [id number] 2.16.840.1.542881.3.579.2 .278 1935 Unknown [id number] 2.16.840.1.696721.3.579.2 .278 Medicare [id number] Private Health Insurance [id number] Unknown [id number] 2.16.840.1.723916.3.579.2 .462 Unknown [id number] .840.1.406720.3.579.2 .462 Unknown [id number] .840.1.398851.3.579.2 .462 Unknown [id number] 2.840.1.750122.3.579.2 .462 Unknown [id number] 2.840.1.116954.3.579.2 .462 Unknown [id number] .840.1.931070.3.579.2 .462 Unknown [id number] .840.1.165465.3.579.2 .462 Unknown [id number] 2.840.1.000635.3.579.2 .462 Unknown [id number] .840.1.263231.3.579.2 .462 Unknown [id number] .840.1.452296.3.579.2 .462 Unknown [id number] .840.1.789181.3.579.2 .462 Unknown [id number] 840.1.226304.3.579.2 .462 Unknown [id number] .840.1.627562.3.579.2 .462 Unknown [id number] .840.1.835721.3.579.2 .462 Unknown [id number] .840.1.653057.3.579.2 .462 Unknown [id number] .840.1.158164.3.579.2 .462 Unknown [id number] .840.1.854785.3.579.2 .462 Unknown [id number] 2.840.1.686641.3.579.2 .462 Unknown [id number] 2.840.1.970279.3.579.2 .462 Unknown [id number] .16.840.1.701306.3.579.2 .462 Unknown [id number] 2.16.840.1.827233.3.579.2 .462 Unknown [id number] 2.16.840.1.746515.3.579.2 .462 Unknown [id number] 2.16.840.1.057728.3.579.2 .462 Unknown [id number] 2.16.840.1.609042.3.579.2 .462 Unknown [id number] 2.16.840.1.866220.3.579.2 .462 Unknown [id number] 2.16.840.1.271982.3.579.2 .462 Social History Date Type Detail Facility Start: 08-07-2019 End: 05-04-2025 Tobacco smoking status [facility] Never smoker [facility] Work Phone: Start: 08-07-2019 End: 05-28-2023 Alcohol intake Never [facility] Start: 08-07-2019 End: 11-02-2022 History SDOH Alcohol Frequency 1 [place], [place] Start: 1935 Sex Assigned At Not on file [place] Start: 01-31-2022 End: 05-14-2025 Alcohol intake Current non-drinker of alcohol (finding) [facility] Start: 06-14-2021 End: 11-02-2022 History SDOH Social Connections Phone 3 [facility] Start: 06-14-2021 End: 11-02-2022 History SDOH Social Connections Membership 2 [facility] Start: 06-14-2021 End: 11-02-2022 History SDOH Physical Activity DPW 0 [facility] Start: 06-14-2021 End: 11-02-2022 History SDOH Stress 5 [facility] Start: 06-14-2021 Education 12 [facility] Start: 1935 Sex Assigned At Female C [facility] Work Phone: Start: 03-03-2021 End: 10-01-2022 Exposure to SARS-CoV-2 (event) Not sure [facility] Work Phone: Start: 05-04-2013 End: 05-04-2025 Tobacco use and exposure Smokeless tobacco non-user [facility] Start: 07-30-2022 End: 08-09-2022 Exposure to SARS-CoV-2 (event) Unable to assess [facility] Work Phone: Start: 10-01-2022 End: 11-02-2022 History SDOH Social Connections Phone 98 [facility] Start: 11-02-2022 History SDOH Stress [facility] Start: 09-26-2020 [facility] Work Phone: Start: 05-04-[address] [facility] Work Phone: Start: 05-04-2014 Spouse/ Signif icant Other [facility] Work Phone: Start: 09-19-[address] [facility] Work Phone: Start: 11-02-2022 End: 05-28-2023 History of Social function [facility] In a typical week, h ow many times do you talk on the telephone with family, friends, or neighbors? Patient refused [facility] Are you now , , , , never or living with a partner? [facility] How often to you hav e a drink containing alcohol? Never [facility] Do you feel stress - tense, restless, nervous, or anxious, or unable to sleep at night because your mind is troubled all the time - these days [OSQ] Rather much [facility] (I/We) worried shahram er (my/our) food would run out before (I/we) got money to buy more. Never true [facility] Start: 04-14-2020 Gender identity Identifies as female gender (finding) [facility] Work Phone: Start: 04-14-2020 Sexual orientation Heterosexual (jcarlos gaston) [facility] Work Phone: Do you feel stress - tense, restless, nervous, or anxious, or unable to sleep at night because your mind is troubled all the time - these days [OSQ] To some extent [facility] Do you feel stress - tense, restless, nervous, or anxious, or unable to sleep at night because your mind is troubled all the time - these days [OSQ] Very much [facility] Start: 02-10-2025 End: 03-16-2025 Alcoholic beverage intake Lifetime non-drinker (finding) [facility] Start: 07-02-2022 Sex Female (finding) [facility] NEGATED: Highlighted rowStart: NINF History of tobacco use Passive smoker [facility] Medical Equipment Procedure Code Equipment Code Equipment [...] 06/22/2014 10:26 AM EDT Pita Dumont MA [facility] 06-22-2014 Are you blind, or do you have serious difficulty seeing, even when wearing glasses No 06/22/2014 10:26 AM EDT Pita Dumont MA [facility] 06-22-2014 Do you have serious difficulty walking or climbing stairs No 06/22/2014 10:26 AM EDT Pita Dumont MA [facility] 06-22-2014 Do you have difficul ty dressing or bathing No 06/22/2014 10:26 AM EDT Pita Dumont MA [facility] 06-22-2014 Because of a physica l, mental, or emotional condition, do you have difficulty doing errands alone such as visiting a physician's office or shopping No 06/22/2014 10:26 AM EDT Pita Dumont MA [facility] Mental Status Date Assessment Result Facility 06-22-2014 Because of a physica l, mental, or emotional condition, do you have serious difficulty concentrating, remembering, or making decisions No 06/22/2014 10:26 AM EDT Pita Dumont MA [facility] Clinical Notes 03-20-2018 to 06-29-2025 Sena Hahn MA - 06/29/2025 8:16 AM EDTTelephone Encounter - Zulma Ji MA - 06/17/2025 9:17 AM EDTTelephone Encounter - Zulma Ji MA - 06/17/2025 9:17 AM EDTPatient Instructions Note Date & Type Note Facility 06-29-2025 Note HNO ID: [id number] Author: SENA HAHN MA Service: ? Author Type: Broker In Charge Type: Progress Notes Filed: 06/29/2025 09:43 Note Text: POPULATION HEALTH NAVIGATION OUTREACH Action/FYI MYCHART MESSAGE SENT NO ANSWER Topic Due (Y or N) Comments Medicare Wellness y PCP Follow up Colorectal Cancer Screening Controlling Blood Pressure A1C HCC Flu Vaccine Care Everywhere Reviewed MyChart Activation Updated Appointment Note Reason for Outreach Care Gap/HCC or Scheduling Wellness Visits Care Gaps due: Medicare Annual Wellness Visit Patient Contacted: Unable or unnecessary to reach patient: Unable to leave message MyChart message sent Navigation Signature: Sena Hahn MA June 29, 2025 8:16 AM [facility] 06-29-2025 History of Presen t illness Narrative POPULATION HEALTH NAVIGATION OUTREACH Action/FYI MYCHART MESSAGE SENT NO ANSWER Topic Due (Y or N) Comments Medicare Wellness y PCP Follow up Colorectal Cancer Screening Controlling Blood Pressure A1C HCC Flu Vaccine Care Everywhere Reviewed MyChart Activation Updated Appointment Note Reason for Outreach Care Gap/HCC or Scheduling Wellness Visits Care Gaps due: Medicare Annual Wellness Visit Patient Contacted: Unable or unnecessary to reach patient: Unable to leave message Providajob message sent Navigation Signature: Sena Hahn MA June 29, 2025 8:16 AM documented in this encounter [facility] 06-29-2025 Note Patient Outreach (LIZZETTE RUTLEDGE) SACHI GRACE ([id number]) 1935 F NFR Date Time Provider Department 06/29/25 SENA HAHN During your visit today, we recorded the following information about you: Sena Hahn MA 06/29/2025 9:43 AM Signed POPULATION HEALTH NAVIGATION OUTREACH Action/FYI [employer] MESSAGE SENT NO ANSWER Topic Due (Y or N) Comments Medicare Wellness y PCP Follow up Colorectal Cancer Screening Controlling Blood Pressure A1C HCC Flu Vaccine Care Everywhere Reviewed [employer] Activation Updated Appointment Note Reason for Outreach Care Gap/HCC or Scheduling Wellness Visits Care Gaps due: Medicare Annual Wellness Visit Patient Contacted: Unable or unnecessary to reach patient: Unable to leave message Providajob message sent Navigation Signature: Sena Hahn MA June 29, 2025 8:16 AM Allergies As of Date: 06/29/2025 Noted Allergy Reaction VICODIN (HYDROCODONE-ACETAMINOPHE*2012 8 - [...] 04/29/2019 8 - GI Upset Date Reviewed: 06/14/2025 Reviewed by: Zulma Ji MA - Fully Assessed Reason for Visit: Population Health Navigation Outreach [3910] Cmt: ACAga GILLETTE PCSA Prescriptions as of 06/29/2025 - gabapentin (NEURONTIN) 100 mg capsule Take 1 capsule by mouth three times a day for 180 days. - nortriptyline (PAMELOR) 10 mg capsule Take 10 mg by mouth daily at bedtime. - lipase/protease/amylase (CREON ORAL) Take 9,000 Units by mouth once daily. - anashm-mxleehzm-ufwrxda (CREON) 3,000-9,500- 15,000 unit delayed release capsule Take 1 capsule by mouth three times a day with meals. - levothyroxine (SYNTHROID) 75 mcg tablet Take 75 mcg by mouth daily before breakfast. - rOPINIRole (REQUIP) 0.5 mg tablet Take 1.5 tablets by mouth daily at bedtime. - Vit B Complex 100 Combo No.2 (B-100 COMPLEX) 100 mg TbER Take 1 tablet by mouth once daily. - fluticasone propionate (ARMONAIR DIGIHALER) 232 mcg/actuation inhaler Inhale 1 Puff as instructed two times a day. - levalbuterol tartrate HFA 45 mcg/actuation inhaler Inhale 1-2 Puffs as instructed every 4 hours as needed for wheezing/shortness of breath. - clonazePAM (KLONOPIN) 0.5 mg tablet Take 0.5 mg by mouth at bedtime as needed. Dr Dupree - vit A,C,F-Crdb-Jfjkxr (PRESERVISION AREDS) 7,160-113-100 bofr-lm-kouk tab Take 1 tablet by mouth once daily. - ACETAMINOPHEN 500 MG TAB Take 1,000 mg by mouth every 8 hours as needed for pain. Problem List As Of Date 06/29/2025 Noted Resolved Unspecified constipation [K59.00] 04/30/2006 03/16/2016 PEPTIC ULCER NOS [K27.9] 03/19/2007 GENERALIZED ANXIETY DIS [F41.1] Generalized osteoarthrosis, unspecified site [M* 12/23/2015 Myalgia and myositis [[id number]] 05/22/2017 Diverticulosis of large intestine [K57.30] Disorder [...] Diagnosed: 01/01/2024 Encounter for pre-operative examination [Z01.81*01/01/2024 D (more content not included)... [facility] 06-17-2025 Telephone encounter Note Spoke with patient and relayed provider message [facility] 06-17-2025 Miscellaneous Notes Spoke with patient and relayed provider message Can try it but I think she was not tolerating it 3 x day. Will change order to reflect 3 x day Patient calls and states that she had gone to [facility] for mouth pain. Provider at [facility] told her to take Gabapentin TID instead of daily. Sharon Paul RN documented in this encounter [facility] 06-17-2025 Telephone encounter Note Can try it but I think she was not tolerating it 3 x day. Will change order to reflect 3 x day [facility] 06-16-2025 Telephone encounter Note Patient calls and states that she had gone to [facility] for mouth pain. Provider at [facility] told her to take Gabapentin TID instead of daily. Sharon Paul RN [facility] 06-14-2025 Instructions Anitra Mancera APRN.CNP - 06/14/2025 11:15 AM EDT - fax lab orders to [facility] to have drawn with labs in 2 weeks - Continue taking your pancreatic enzyme supplements with meals as prescribed to help digest your food. - If you continue losing weight, follow up with your primary doctor or a nutrition worker about adjusting your enzyme dose. - To manage restless legs, you can try replacing your ubadsd-xv-ehb-night ropinirole dose with gabapentin at bedtime; I ve added a gabapentin prescription to your chart--fill it only if you choose to switch. - Wear knee-high support (compression) socks during the day to reduce leg swelling and improve overnight fluid movement. - Have a complete blood count (CBC) and iron level drawn at the hospital lab this month; the lab order has been sent and we will review the results. - Continue using your asthma inhaler as needed for breathing. - Keep your appointment with your psychiatrist next week to review your nortriptyline therapy. documented in this encounter [facility] 06-14-2025 Note HNO ID: [id number] Author: ANITRA MANCERA APRN.CNP Service: ? Author Type: Nurse Practitioner Type: Progress Notes Filed: 06/14/2025 11:33 Note Text: This is a 89 year old female who presents today with: Patient presents with: F/U 3 Month HISTORY OF PRESENT ILLNESS: Sachi Grace is a 89 year old female. Patient presents with: F/U 3 Month Sachi Grace is an 89-year-old female with a history of pancreatic cancer, asthma, and restless leg syndrome, presenting for weight loss, dyspnea, and edema. Weight Loss: - Taking pancreatic enzymes x5 weeks, with improvement in digestion. - Persistent weight loss despite increased protein intake. - Consuming protein shakes and powder. - Denies nausea or emesis. - Reports anosmia for several years. - Denies dysphagia. Pancreatic Cancer: - Recent high tumor markers. - Undergoing radiation therapy; informed that effects may last for months. - Reports acholic stools. Asthma: - Using inhaler PRN. - Recent increase in wheezing, previously using inhaler 2 puffs every 4-6 hours with minimal relief. - Identified wheezing as a side effect of a psychiatric medication; discontinued medication with subsequent improvement in wheezing. - Reports occasional cough and dyspnea. - Denies orthopnea. Restless Leg Syndrome: - Taking ropinirole 1.5 tablets nightly; 1 tablet before bed and 0.5 tablet at 0230. - Has gabapentin at home but not currently taking it. - Reports worsening symptoms, especially during the day. Edema: - Bilateral lower extremity edema, worse in the evenings. - Reports nocturia. 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 - Experiencing tachycardia and jittery legs. - Taking nortriptyline for anxiety; recent low serum level of 19. - Long-term use of sertraline x30 years. - Upcoming appointment with psychiatrist next week. Fatigue: - Reports significant fatigue. - Denies fever or chills. - Denies weakness or falls. Dietary Deficiencies: - Reports a sore mouth, believes it is related to dietary deficiencies. PAST MEDICAL HISTORY: PAST MEDICAL HISTORY Diagnosis [...] supraventricular tachycardia (HCC) ablation 01/2002 ( in [place], [facility]), follows with Dr. Moreno (prn only) [...] FLX DX W/COLLJ SPEC WHEN PFRMD 10/14/2018 [facility]-Repeat 5 years COLONOSCOPY SCREENING 11/15/2023 R Cebul no repeat due to age CORRECT BUNION,SIMPLE left ECHOCARDIOGRAM 10/18/2017 EGD 1985 bleeding ulcer EPS: SVT/VT ABLATION 2001 [facility] ESOPHAGOGASTRODUODENOSCOPY TRANSORAL DIAGNOSTIC 03/24/2018 EGD HERNIA REPAIR HX 09/2020 ventral hernia repair HOLTER 24 HR 10/2017 LOOP RECORDER IMPLANT 01/23/2018 NASAL/SINUS ENDOSCOPY WITH SPHENOIDOTOMY Bilateral 05/15/2019 Dr. Ruffin NASAL/SINUS ENDOSCPY W/MAXILL ANTROSTOMY Bilateral 05/15/2019 Dr. Ruffin NASAL/SINUS ENDOSCPY W/TOTAL ETHMOIDECTOMY Bilateral 05/15/2019 Dr. Ruffin OPEN REPAIR OF ROTATOR CUFF ACUTE 04/2005 Dr. Mejias PAST SURGICAL HISTORY OF 10/1997 partial colectomy ([place], [facility]) PAST SURGICAL HISTORY OF 2011 nerves cut in my back STEREO LOC FOR CORE BRST BX LT 04/24/2010 left STRESS TEST 12/17/2017 TONSILLECTOMY PRIMARY/SECONDARY ALLERGIES Vicodin [Hydrocodone-Acetaminophen], Buspirone, Cocamidopropyl Betaine, Codeine, Pantoprazole, Percocet [Oxycodone-Acetaminophen], Sulfa (Sulfonamide Antibiotics), and Tetracycline MEDICATIONS Current Outpatient Medications Medication Sig nortriptyline (PAMELOR) 10 mg capsule Take 10 mg by mouth daily at bedtime. lipase/protease/amylase (CREON ORAL) Take 9,000 Units by mouth once daily. eeungc-xlyrfcts-cndecoc (CREON) 3,000-9,500- 15,000 unit delayed release capsule Take 1 capsule by mouth three times a day with meals. levothyroxine (SYNTHROID) 75 mcg tablet Take 75 mcg by mouth daily before breakfast. MerI (more content not included)... [facility] 06-14-2025 History of Presen t illness Narrative This is a 89 year old female who presents today with: Patient presents with: F/U 3 Month HISTORY OF PRESENT ILLNESS: Sachi Grace is a 89 year old female. Patient presents with: F/U 3 Month Sachi Grace is an 89-year-old female with a history of pancreatic cancer, asthma, and restless leg syndrome, presenting for weight loss, dyspnea, and edema. Weight Loss: - Taking pancreatic enzymes x5 weeks, with improvement in digestion. - Persistent weight loss despite increased protein intake. - Consuming protein shakes and powder. - Denies nausea or emesis. - Reports anosmia for several years. - Denies dysphagia. Pancreatic Cancer: - Recent high tumor markers. - Undergoing radiation therapy; informed that effects may last for months. - Reports acholic stools. Asthma: - Using inhaler PRN. - Recent increase in wheezing, previously using inhaler 2 puffs every 4-6 hours with minimal relief. - Identified wheezing as a side effect of a psychiatric medication; discontinued medication with subsequent improvement in wheezing. - Reports occasional cough and dyspnea. - Denies orthopnea. Restless Leg Syndrome: - Taking ropinirole 1.5 tablets nightly; 1 tablet before bed and 0.5 tablet at 0230. - Has gabapentin at home but not currently taking it. - Reports worsening symptoms, especially during the day. Edema: - Bilateral lower extremity edema, worse in the evenings. - Reports nocturia. 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 - Experiencing tachycardia and jittery legs. - Taking nortriptyline for anxiety; recent low serum level of 19. - Long-term use of sertraline x30 years. - Upcoming appointment with psychiatrist next week. Fatigue: - Reports significant fatigue. - Denies fever or chills. - Denies weakness or falls. Dietary Deficiencies: - Reports a sore mouth, believes it is related to dietary deficiencies. PAST MEDICAL HISTORY: PAST MEDICAL HISTORY Diagnosis [...] supraventricular tachycardia (HCC) ablation 01/2002 ( in [place], [facility]), follows with Dr. Moreno (prn only) [...] FLX DX W/COLLJ SPEC WHEN PFRMD 10/14/2018 [facility]-Repeat 5 years COLONOSCOPY SCREENING 11/15/2023 R Cebul no repeat due to age CORRECT BUNION,SIMPLE left ECHOCARDIOGRAM 10/18/2017 EGD 1985 bleeding ulcer EPS: SVT/VT ABLATION 2001 [facility] ESOPHAGOGASTRODUODENOSCOPY TRANSORAL DIAGNOSTIC 03/24/2018 EGD HERNIA REPAIR HX 09/2020 ventral hernia repair HOLTER 24 HR 10/2017 LOOP RECORDER IMPLANT 01/23/2018 NASAL/SINUS ENDOSCOPY WITH SPHENOIDOTOMY Bilateral 05/15/2019 Dr. Ruffin NASAL/SINUS ENDOSCPY W/MAXILL ANTROSTOMY Bilateral 05/15/2019 Dr. Ruffin NASAL/SINUS ENDOSCPY W/TOTAL ETHMOIDECTOMY Bilateral 05/15/2019 Dr. Ruffin OPEN REPAIR OF ROTATOR CUFF ACUTE 04/2005 Dr. Mejias PAST SURGICAL HISTORY OF 10/1997 partial colectomy ([place], [facility]) PAST SURGICAL HISTORY OF 2011 nerves cut in my back STEREO LOC FOR CORE BRST BX LT 04/24/2010 left STRESS TEST 12/17/2017 TONSILLECTOMY PRIMARY/SECONDARY <AGE 12 ALLERGIES Vicodin [Hydrocodone-Acetaminophen], Buspirone, Cocamidopropyl Betaine, Codeine, Pantoprazole, Percocet [Oxycodone-Acetaminophen], Sulfa (Sulfonamide Antibiotics), and Tetracycline MEDICATIONS Current Outpatient Medications Medication Sig nortriptyline (PAMELOR) 10 mg capsule Take 10 mg by mouth daily at bedtime. lipase/protease/amylase (CREON ORAL) Take 9,000 Units by mouth once daily. gbspnu-qtepqmct-zfvogeg (CREON) 3,000-9,500- 15,000 unit delayed release capsule Take 1 capsule by mouth three times a day with meals. levothyroxine (SYNTHROID) 75 mcg tablet Take 75 mcg by mouth daily before breakfast. rOPINIRole (REQUIP) 0.5 mg tablet Take 1.5 tablets by mouth daily at bedtime. Vit B Complex 100 Combo No.2 (B-100 COMPLEX) 100 mg TbER Take 1 tablet by mouth once daily. levalbuterol tartrate HFA 45 mcg/actuation inhaler Inhale 1-2 Puffs as instructed every 4 hours as needed for wheezing/shortness of breath. clonazePAM (KLONOPIN) 0.5 mg tablet Take 0.5 mg by mouth at bedtime as needed. Dr Joon Avery,C,N-Vluy-Cayacw (PRESERVISION AREDS) 7,160-113-100 yxxf-ki-jwzl tab Take 1 tablet by mouth once daily. ACETAMINOPHEN 500 MG TAB Take 1,000 mg by mouth every 8 hours as needed for pain. propranolol (INDERAL) 10 mg tablet Take 5 mg by mouth two times a day as needed (anxiety). (Patient not taking: Reported on 06/14/2025) fluticasone propionate (ARMONAIR DIGIHALER) 232 mcg/actuation inhaler Inhale 1 Puff as instructed two times a day. No current facility-administered medications for this visit. FAMILY HISTORY Problem Relation Age of Onset Heart Mother rheumatic; 73 Colon Cancer Father dx'd age 50's Coronary Artery Disease Father age 40s, CABG (among the first done at in [place]) Stroke Sister at 58 of ruptured aneurysm Cancer Brother at 55 (tobacco, agent orange) DVT Sister Social History Tobacco Use Smoking status: Never Passive exposure: Never Smokeless tobacco: Never Vaping Use Vaping status: Never Used Substance Use Topics Alcohol use: No Drug use: No REVIEW OF SYSTEMS Constitutional: (+) fatigue, (+) unintentional weight loss, (-) fever, (-) chills, (-) weakness Ears/Nose/Mouth/Throat: (+) ageusia, (+) oral pain, (-) dysphagia Neck: (-) neck swelling Cardiovascular: (+) palpitations, (+) bilateral lower extremity edema Respiratory: (+) cough, (+) dyspnea, (-) orthopnea Gastrointestinal: (+) abdominal pain, (+) abdominal bloating, (+) pale stools, (-) nausea, (-) vomiting Genitourinary: (+) nocturia, (+) polyuria Neurological: (+) restless legs EXAM: BP 110/66 Pulse 89 Wt 51.3 kg (113 lb) SpO2 95% BMI 21.35 kg/m PHYSICAL EXAM: GENERAL: NAD, alert and oriented. SKIN: Unremarkable, no rash or skin lesions. HEAD: Normocephalic. NECK: Supple, no lymphadenopathy, normal thyroid, no carotid bruits. LUNGS: Clear to auscultation bilaterally, no wheezes/rhonchi/rales. HEART: Regular rate and rhythm, no murmurs. No ectopy. EXTREMITIES: No deformities, no skin discoloration, trace edema noted in lower extremities L>R. NEURO: Awake, alert and oriented x3, cranial nerves II-XII grossly intact, normal gait, no involuntary motions. LABS: ASSESSMENT/PLAN: 1. Thoracic and lumbosacral neuritis (M54.14) - No pain in back any longer 2. Hyperlipidemia LDL goal <130 (E78.5) - Diet controlled, improved since weight loss 3. Mild intermittent asthma without complication (HCC) (J45.20) - Asthma symptoms improved after discontinuation of a medication prescribed by the psychiatrist that was causing wheezing. - Reduced inhaler use from 2 puffs every 4-6 hours to minimal use. - Continue current asthma management. 4. Paroxysmal supraventricular tachycardia (HCC) (I47.10) - Episodes of tachycardia noted. May be related to anxiety or anemia. - Symptoms may be exacerbated by anxiety related to pancreatic cancer. - Monitor heart rate and symptoms. 5. RLS (restless legs syndrome) (G25.81) - Symptoms have worsened recently. - Currently taking ropinirole 0.5 mg before bed and an additional 0.25 mg during the night. - New guidelines recommend transitioning to gabapentin. - Initiate gabapentin 100 mg at bedtime; attempt to eliminate the additional 0.5 mg dose of ropinirole taken during the night. - Monitor for improvement in symptoms. 6. Acquired hypothyroidism (E03.9) - TSH WNL, on levothyroxine- no change 7. Generalized anxiety disorder (F41.1) - Anxiety may be contributing to tachycardia. - Continue current management. - Seeing psychiatry, new doctor scheduled 8. Malignant neoplasm of pancreas, unspecified location of malignancy (HCC) (C25.9) - Ongoing weight loss despite pancreatic enzyme supplementation for 5 weeks. - Steatorrhea noted with pale or main stools. - Continue pancreatic enzyme therapy. - Monitor nutritional intake; consider consultation with a dietitian for further dietary modifications to promote weight gain. - Follow-up with oncology as scheduled. 9. Iron deficiency anemia, unspecified iron deficiency anemia type (D50.9) - Symptoms of fatigue, dyspnea, and worsening RLS may be related to anemia. - Ordered CBC and iron studies to evaluate for iron deficiency. - Results to be faxed to the hospital for review. 10. Primary hypertension - ICD9: 401.9, ICD10: I10 Controlled - Recommend home blood pressure monitoring, to bring results to next visit, has Low BP typically - Encouraged sodium restriction, DASH or Mediterranean diet - Recommend regular aerobic exercise - Weight loss affected HTN, not on medication Discussed treatment plan and patient voices understanding. Patient's questions answered appropriately. Medications and potential side effects were discussed and patient voices understanding. Return to the office as scheduled or as needed for worsening/no improvement. Anitra Mancera APRN.CNP documented in this encounter [facility] 05-31-2025 Telephone encounter Note Notified via TASS. Copy of lab results faxed. Yarelis Oliva MA [facility] 05-31-2025 Miscellaneous Notes Notified via TASS. Copy of lab results faxed. Yarelis Oliva MA Please fax nortriptyline level to the counseling center [facility]. Please notify patient other labs are WNL. documented in this encounter [facility] 05-28-2025 Telephone encounter Note Please fax nortriptyline level to the counseling center [facility]. Please notify patient other labs are WNL. [facility] Work Phone: 05-17-2025 Note HNO ID: [id number] Author: DAWIT PHELAN APRN.CNP Service: ? Author Type: Nurse Practitioner Type: Progress Notes Filed: 05/17/2025 10:57 Note Text: Chief Complaint Patient presents with: ER F/U HPI Sachi Grace is a 89 year old female who presents here today for Above Complaints. Patient presents for ER follow up for increased anxiety and tremors. Patient was started on zofran and escitalopram which she stopped 3 weeks ago. Patient reports her symptoms have persisted despite stopping both medications. Labs in ER were normal. Has not had nortriptyline level in 2 years. Past medical history, appointments, medications, allergies reviewed. [...] supraventricular tachycardia (HCC) ablation 01/2002 ( in [place], [facility]), follows with Dr. Moreno (prn only) [...] FLX DX W/COLLJ SPEC WHEN PFRMD 10/14/2018 [facility]-Repeat 5 years COLONOSCOPY SCREENING 11/15/2023 R Cebul no repeat due to age CORRECT BUNION,SIMPLE left ECHOCARDIOGRAM 10/18/2017 EGD 1985 bleeding ulcer EPS: SVT/VT ABLATION 2001 [facility] ESOPHAGOGASTRODUODENOSCOPY TRANSORAL DIAGNOSTIC 03/24/2018 EGD HERNIA REPAIR HX 09/2020 ventral hernia repair HOLTER 24 HR 10/2017 LOOP RECORDER IMPLANT 01/23/2018 NASAL/SINUS ENDOSCOPY WITH SPHENOIDOTOMY Bilateral 05/15/2019 Dr. Ruffin NASAL/SINUS ENDOSCPY W/MAXILL ANTROSTOMY Bilateral 05/15/2019 Dr. Ruffin NASAL/SINUS ENDOSCPY W/TOTAL ETHMOIDECTOMY Bilateral 05/15/2019 Dr. Ruffin OPEN REPAIR OF ROTATOR CUFF ACUTE 04/2005 Dr. Mejias PAST SURGICAL HISTORY OF 10/1997 partial colectomy ([place], [facility]) PAST SURGICAL HISTORY OF 2011 nerves cut in my back STEREO LOC FOR CORE BRST BX LT 04/24/2010 left STRESS TEST 12/17/2017 TONSILLECTOMY PRIMARY/SECONDARY Family History FAMILY HISTORY Problem Relation Age of Onset Heart Mother rheumatic; 73 Colon Cancer Father dx'd age 50's Coronary Artery Disease Father age 40s, CABG (among the first done at in [place]) Stroke Sister at 58 of ruptured aneurysm [...] on File Prior to Visit Medication Sig lipase/protease/amylase (CREON ORAL) Take 9,000 Units by mouth once daily. gyfeln-ytcqeawv-hspaksh (CREON) 3,000-9,500- 15,000 unit delayed release capsule Take 1 capsule by mouth three times a day with meals. levothyroxine (SYNTHROID) 75 mcg tablet Take 75 mcg by mouth daily before breakfast. ondansetron (ZOFRAN) 4 mg tablet Take 1 tablet by mouth every 8 hours as needed for nausea/vomiting. rOPINIRole (REQUIP) 0.5 mg tablet Take 1.5 tablets by mouth daily at bedtime. Vit B Complex 100 Combo No.2 (B-100 COMPLEX) 100 mg TbER Take 1 tablet by mouth once daily. fluticasone propionate (ARMONAIR DIGIHALER) 232 mcg/actuation inhaler Inhale 1 Puff as instructed two times a day. levalbuterol tartrate HFA 45 mcg/actuation inhaler Inhale 1-2 Puffs as instructed every 4 hours as needed for wheezing/shortness of breath. clonazePAM (KLONOPIN) 0.5 mg tablet Take 0.5 mg by mouth at bedtime as needed. Dr Dupree vit A,C,C-Gzry-Kylwyv (PRESERVISION AREDS) 7,160-113-100 fgte-ie-rhds tab Take 1 tablet by mouth once daily. ACETAMINOPHEN 500 MG TAB Take 1,000 mg by mouth every 8 hours as needed for pain. No current facility-administered medications on file prior to visit. Social (more content not included)... [facility] 05-17-2025 History of Presen t illness Narrative Chief Complaint Patient presents with: ER F/U HPI Sachi Grace is a 89 year old female who presents here today for Above Complaints. Patient presents for ER follow up for increased anxiety and tremors. Patient was started on zofran and escitalopram which she stopped 3 weeks ago. Patient reports her symptoms have persisted despite stopping both medications. Labs in ER were normal. Has not had nortriptyline level in 2 years. Past medical history, appointments, medications, allergies reviewed. [...] supraventricular tachycardia (HCC) ablation 01/2002 ( in [place], [facility]), follows with Dr. Moreno (prn only) [...] FLX DX W/COLLJ SPEC WHEN PFRMD 10/14/2018 [facility] [place]-Repeat 5 years COLONOSCOPY SCREENING 11/15/2023 R Cebul no repeat due to age CORRECT BUNION,SIMPLE left ECHOCARDIOGRAM 10/18/2017 EGD 1985 bleeding ulcer EPS: SVT/VT ABLATION 2001 [facility] ESOPHAGOGASTRODUODENOSCOPY TRANSORAL DIAGNOSTIC 03/24/2018 EGD HERNIA REPAIR HX 09/2020 ventral hernia repair HOLTER 24 HR 10/2017 LOOP RECORDER IMPLANT 01/23/2018 NASAL/SINUS ENDOSCOPY WITH SPHENOIDOTOMY Bilateral 05/15/2019 Dr. Ruffin NASAL/SINUS ENDOSCPY W/MAXILL ANTROSTOMY Bilateral 05/15/2019 Dr. Ruffin NASAL/SINUS ENDOSCPY W/TOTAL ETHMOIDECTOMY Bilateral 05/15/2019 Dr. Ruffin OPEN REPAIR OF ROTATOR CUFF ACUTE 04/2005 Dr. Mejias PAST SURGICAL HISTORY OF 10/1997 partial colectomy ([place], [facility]) PAST SURGICAL HISTORY OF 2011 nerves cut in my back STEREO LOC FOR CORE BRST BX LT 04/24/2010 left STRESS TEST 12/17/2017 TONSILLECTOMY PRIMARY/SECONDARY <AGE 12 Family History FAMILY HISTORY Problem Relation Age of Onset Heart Mother rheumatic; 73 Colon Cancer Father dx'd age 50's Coronary Artery Disease Father age 40s, CABG (among the first done at in [place]) Stroke Sister at 58 of ruptured aneurysm [...] on File Prior to Visit Medication Sig lipase/protease/amylase (CREON ORAL) Take 9,000 Units by mouth once daily. rvimcp-pxzropen-ahxleqp (CREON) 3,000-9,500- 15,000 unit delayed release capsule Take 1 capsule by mouth three times a day with meals. levothyroxine (SYNTHROID) 75 mcg tablet Take 75 mcg by mouth daily before breakfast. ondansetron (ZOFRAN) 4 mg tablet Take 1 tablet by mouth every 8 hours as needed for nausea/vomiting. rOPINIRole (REQUIP) 0.5 mg tablet Take 1.5 tablets by mouth daily at bedtime. Vit B Complex 100 Combo No.2 (B-100 COMPLEX) 100 mg TbER Take 1 tablet by mouth once daily. fluticasone propionate (ARMONAIR DIGIHALER) 232 mcg/actuation inhaler Inhale 1 Puff as instructed two times a day. levalbuterol tartrate HFA 45 mcg/actuation inhaler Inhale 1-2 Puffs as instructed every 4 hours as needed for wheezing/shortness of breath. clonazePAM (KLONOPIN) 0.5 mg tablet Take 0.5 mg by mouth at bedtime as needed. Dr Dupree vit A,C,U-Peyc-Gezovw (PRESERVISION AREDS) 7,160-113-100 rcfu-us-ytlk tab Take 1 tablet by mouth once daily. ACETAMINOPHEN 500 MG TAB Take 1,000 mg by mouth every 8 hours as needed for pain. No current facility-administered medications on file prior to visit. Social History Social History Tobacco Use Smoking status: Never Passive exposure: Never Smokeless tobacco: Never Vaping Use Vaping status: Never Used Substance Use Topics Alcohol use: No Drug use: No Review of Symptoms REVIEW OF SYSTEMS SEE HPI EXAM: BP 122/76 Pulse 87 Wt 52 kg (114 lb 10.2 oz) BMI 21.66 kg/m General Appearance: Well appearing, alert, in no acute distress, well-hydrated, well nourished. Lungs: Lungs clear to auscultation. No wheezing, rhonchi, rales.. Heart: RRR without murmur, gallop, or rubs. No ectopy. Health Maintenance List Shingrix Vaccine(1 of 2) Never done Medicare Annual Wellness Visit Never done Advance Directive Discussion due on 12/02/2024 Covid-19 Vaccine( season) due on 04/12/2025 Depression Screening due on 03/15/2026 Diabetes Screening due on 03/18/2028 DTaP,Tdap,Td Vaccine(3 - Td or Tdap) due on 03/17/2034 Influenza Vaccine Completed RSV Vaccine Completed Pneumococcal Vaccine: 50+ Completed Bone Density Screening Addressed ASSESSMENT/PLAN: 1. Medication management - ICD9: V58.69, ICD10: Z79.899 (primary diagnosis) - NORTRIPTYLINE BLD 2. Coarse tremors - ICD9: 781.0, ICD10: G25.2 - COMPREHENSIVE METABOLIC PANEL - DENIZ Phelan APRN.TARGET WORKER documented in this encounter [facility] 05-14-2025 Note HNO ID: [id number] Author: DASIA FUNES MD Service: ? Author Type: Physician Type: Progress Notes Filed: 05/15/2025 20:33 Note Text: [facility] Follow up visit Subjective: Sachi Grace is a 89 year old female who was here on 05/04/25 to establish care for hypothyroidism. Also has a hx of thyroid nodules - Diagnosed approximately 25 years ago. How hypothyroidism was discovered: 25 years ago - Managed by Dr. Angulo at [facility] Endocrinology since diagnosis. - Current medication dosage [...] No known family history of thyroid issues. Interval history: 05/14/25: I reduced the dose of LT4 on last visit, due to low normal TSH given her age Patient reports that she was told by her marketing systems analyst that her palpitations are related to thyroid, and they would not listen to her although patient tried to tell them that it is unlikely to be due to thyroid. 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 She is no longer taking these medication, and when her psychiatrist was approached about this, she was told that the tremors are unrelated to the medications mentioned as she has been off, but patient is not convinced with it, she would like to know my opinion, which is mostly the reason why she is here She reports she knew she did not have to follow up today for thyroid and when my staff offered her to coleman the appt, she wanted to have this appointment for above mentioned reason anyway She reports that her previous psychiatrist would check her serotonin levels from time to time to make sure no abnormalities REVIEW OF SYSTEMS: 10 point ROS was reviewed and negative unless indicated in the HPI ALLERGIES: ALLERGIES Allergen Reactions Vicodin [Hydrocodon* GI [...] at bedtime as needed. Dr Dupree vit A,C,D-Zoxc-Dnrxwr ([facility]) 7,160-113-100 cskr-zw-drve tab Take 1 tablet by mouth once [...] Hypothyroidism, unspecified Multinodular goiter Dr Boateng Osteoarthritis o (more content not included)... [facility] 05-14-2025 History of Presen t illness Narrative [facility] Follow up visit Subjective: Sachi Grace is a 89 year old female who was here on 05/04/25 to establish care for hypothyroidism. Also has a hx of thyroid nodules - Diagnosed approximately 25 years ago. How hypothyroidism was discovered: 25 years ago - Managed by Dr. Angulo at [facility] Endocrinology since diagnosis. - Current medication dosage [...] No known family history of thyroid issues. Interval history: 05/14/25: I reduced the dose of LT4 on last visit, due to low normal TSH given her age Patient reports that she was told by her marketing systems analyst that her palpitations are related to thyroid, and they would not listen to her although patient tried to tell them that it is unlikely to be due to thyroid. 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 She is no longer taking these medication, and when her psychiatrist was approached about this, she was told that the tremors are unrelated to the medications mentioned as she has been off, but patient is not convinced with it, she would like to know my opinion, which is mostly the reason why she is here She reports she knew she did not have to follow up today for thyroid and when my staff offered her to coleman the appt, she wanted to have this appointment for above mentioned reason anyway She reports that her previous psychiatrist would check her serotonin levels from time to time to make sure no abnormalities REVIEW OF SYSTEMS: 10 point ROS was reviewed and negative unless indicated in the HPI ALLERGIES: ALLERGIES Allergen Reactions Vicodin [Hydrocodon* GI [...] at bedtime as needed. Dr Dupree vit A,C,U-Xpyv-Jltqyp ([facility]ERV[facility]) 7,160-113-100 ngbg-ep-aary tab Take 1 tablet by mouth once [...] supraventricular tachycardia (HCC) ablation 01/2002 ( in [place], [facility]), follows with Dr. Moreno (prn only) RLS (restless legs syndrome) Tinnitus, unspecified ear Unspecified constipation PAST SURGICAL HISTORY: PAST SURGICAL HISTORY Procedure Laterality Date APPENDECTOMY [...] 1985 bleeding ulcer EPS: SVT/VT ABLATION 2001 [facility] ESOPHAGOGASTRODUODENOSCOPY TRANSORAL DIAGNOSTIC 03/24/2018 EGD HERNIA REPAIR HX 09/2020 ventral hernia repair HOLTER 24 HR 10/2017 LOOP RECORDER IMPLANT 01/23/2018 NASAL/SINUS ENDOSCOPY WITH SPHENOIDOTOMY Bilateral 05/15/2019 Dr. Ruffin NASAL/SINUS ENDOSCPY W/MAXILL ANTROSTOMY Bilateral 05/15/2019 Dr. Ruffin NASAL/SINUS ENDOSCPY W/TOTAL ETHMOIDECTOMY Bilateral 05/15/2019 Dr. Ruffin OPEN REPAIR OF ROTATOR CUFF ACUTE 04/2005 Dr. Mejias PAST SURGICAL HISTORY OF 10/1997 partial colectomy ([place], [facility]) PAST SURGICAL HISTORY OF 2011 nerves cut in my back STEREO LOC FOR CORE BRST BX LT 04/24/2010 left STRESS TEST 12/17/2017 TONSILLECTOMY PRIMARY/SECONDARY <AGE 12 FAMILY HISTORY: FAMILY HISTORY Problem Relation Age of Onset Heart Mother rheumatic; 73 Colon Cancer Father dx'd age 50's Coronary Artery Disease Father age 40s, CABG (among the first done at in [place]) Stroke Sister at 58 of ruptured aneurysm Cancer Brother at 55 (tobacco, agent orange) DVT Sister SOCIAL HISTORY: Social History Tobacco Use Smoking status: Never Passive exposure: Never Smokeless tobacco: Never Vaping Use Vaping status: Never Used Substance Use Topics Alcohol use: No Drug use: No PHYSICAL EXAM: Pulse 74 Temp 36.3 C (97.3 F) (Temporal Artery) Resp 12 Wt 52.3 kg (115 lb 6.4 oz) SpO2 99% BMI 21.80 kg/m No changes from 10 days ago General: Alert and oriented x3, no acute distress Eyes: Anicteric sclera. Extraocular movements are intact. Neck supple, no cervical lymphadenopathy Thyroid: size is not very apparent, but asymmetry noted with a right sided thyroid nodule palpable Lungs: Breathing unlabored, clear to auscultation. No wheezing, rhonchi, rales Heart regular rate and rhythm, no murmer Musculoskeletal: Muscular strength intact, No joint swelling, deformity, or tenderness Neuro: Gait normal. Sensation grossly intact. No focal findings Abdomen:Normal abdominal sounds, non tender to palpation Extremities: without edema, no deformities, b/l coarse tremors noted in UE Skin: no rashes/ erythema LAB: TSH Date Value Ref Range Status 01/26/2025 0.871 0.270 - 4.200 mIU/L Final Free T4 Date Value Ref Range Status 01/26/2025 1.5 0.9 - 1.7 ng/dL Final Latest Ref Rng 05/01/2023 10/29/2023 01/01/2024 04/23/2024 07/29/2024 11/03/2024 01/26/2025 T4 5.5 - 10.2 ug/dL 7.2 T4 Uptake 0.91 - 1.19 0.95 FTI 5.3 - 10.8 ug/dL 7.6 TSH 0.270 - 4.200 mIU/L 3.390 3.120 2.100 5.210 (H) 1.820 3.220 0.871 Free T4 0.9 - 1.7 ng/dL 1.3 1.5 Legend: (H) High ASSESSMENT/PLAN: Acquird hypothyroidism: Cause unclear Possibly autoimmune Currently on 75 mcg daily of levothyroxine Most recent labs within normal, but TSH at low normal, likely due to recent weight loss secondary to pancreatic cancer Recommended on 05/04/25 to lower the dose of levothyroxine to 75 mcg 6 days a week, skipping on one day, given age and recent labs, which she has started doing. Repeat labs in 3 months advised. I reviewed with patient that the thyroid labs have been normal, but there was room to reduce dose of medication due to age as well as weight loss due to pancreatic cancer, and this ruled out thyroid as the cause of palpitations For her questions, I indicated serotonin syndrome occurs when medications that can increase serotonin levels are taken in high doses or multiple medications simultaneously taken, but usually resolves in some time after offending medications are discontinued which patient has not been taken in several months reportedly I reviewed she might have to check with her PCP to check any other reasons for tremors, which could be due to aging as well Follow up with labs in 3 months Medical Decision Making: Medical Decision Making Level: 1 - N/A Dasia Funes MD Endocrinology Associate Staff [facility] Endocrinology and Metabolism [place] [phone] I spent a total of 20 minutes on the date of the service which included preparing to see the patient, [id number] patient care, counseling and educating the patient/family/caregiver, and communicating results to the patient/family/caregiver. documented in this encounter [facility] 05-13-2025 Telephone encounter Note Patient saw engraver tire mold/oncologist at [facility] on May 12, 2025 Dr. Vigil for [...] differential, CMP, LDH, carbohydrate AG 19-9 Creon [id number] unit Creon 3 times daily with 1 refill [facility] 05-13-2025 Miscellaneous Notes Patient saw engraver tire mold/oncologist at [facility] on May 12, 2025 Dr. Vigil for [...] differential, CMP, LDH, carbohydrate AG 19-9 Creon [id number] unit Creon 3 times daily with 1 refill documented in this encounter [facility] 05-11-2025 Telephone encounter Note Patient saw pulmonary COMPRESSOR ENGINEER. She underwent a pulmonary function test: FEV1/FVC 83% of predicted, FEF % of predicted, FVC 96% of predicted reflecting mild obstruction. Patient was given levalbuterol prescription. [facility] 05-11-2025 Miscellaneous Notes Patient saw pulmonary COMPRESSOR ENGINEER. She underwent a pulmonary function test: FEV1/FVC 83% of predicted, FEF % of predicted, FVC 96% of predicted reflecting mild obstruction. Patient was given levalbuterol prescription. documented in this encounter [facility] 05-04-2025 Instructions Dasia Funes MD - 05/04/2025 10:17 AM EDT Please take levothyroxine 75 mcg daily on 6 days of the week, skip taking the pill on the seventh day of the week Repeat labs in 3 months documented in this encounter [facility] 05-04-2025 Note HNO ID: [id number] Author: DASIA FUNES MD Service: ? Author [...] ago - Managed by Dr. Angulo at [facility] Endocrinology since diagnosis. - Current medication dosage [...] at bedtime as needed. Dr Dupree vit A,C,X-Mqnf-Srlisx ([facility]) 7,160-113-100 hdzy-kb-byjx tab Take 1 tablet by mouth once [...] 03/08 Paroxysmal s (more content not included)... [facility] 05-04-2025 History of Presen t illness Narrative [facility] Initial Clinic Visit [...] ago - Managed by Dr. Angulo at [facility] Endocrinology since diagnosis. - Current medication dosage [...] at bedtime as needed. Dr Dupree vit A,C,U-Jeyh-Uvxtao ([facility]S) 7,160-113-100 glgl-rm-ivfp tab Take 1 tablet by mouth once [...] supraventricular tachycardia (HCC) ablation 01/2002 ( in [place], [facility]), follows with Dr. Moreno (prn only) RLS (restless legs syndrome) Tinnitus, unspecified ear Unspecified constipation PAST SURGICAL HISTORY: PAST SURGICAL HISTORY Procedure Laterality Date APPENDECTOMY ARTHRP KNE CONDYLE&PLATU MEDIAL&LAT COMPARTMENTS 2011 Knee replacement, total bilateral CARPAL TUNNEL 2004 bilateral COLONOSCOPY FLX DX W/COLLJ SPEC WHEN PFRMD 12/14/2002 Colonoscopy COLONOSCOPY FLX DX W/COLLJ SPEC WHEN PFRMD 06/10/2007 COLONOSCOPY FLX DX W/COLLJ SPEC WHEN PFRMD 08/04/2013 Colonoscopy COLONOSCOPY FLX DX W/COLLJ [facility] SCREEN[facility] 11/15/2023 R Cebul no repeat due to age CORRECT BUNION,SIMPLE left ECHOCARDIOGRAM 10/18/2017 EGD 1985 bleeding ulcer EPS: SVT/VT ABLATION 2001 [facility] ESOPHAGOGASTRODUODENOSCOPY TRANSORAL DIAGNOSTIC 03/24/2018 EGD HERNIA REPAIR HX 09/2020 ventral hernia repair HOLTER 24 HR 10/2017 LOOP RECORDER IMPLANT 01/23/2018 NASAL/SINUS ENDOSCOPY WITH SPHENOIDOTOMY Bilateral 05/15/2019 Dr. Ruffin NASAL/SINUS ENDOSCPY W/MAXILL ANTROSTOMY Bilateral 05/15/2019 Dr. Ruffin NASAL/SINUS ENDOSCPY W/TOTAL ETHMOIDECTOMY Bilateral 05/15/2019 Dr. Ruffin OPEN REPAIR OF ROTATOR CUFF ACUTE 04/2005 Dr. Mejias PAST SURGICAL HISTORY OF 10/1997 partial colectomy ([place], [facility]) PAST SURGICAL HISTORY OF 2011 nerves cut in my back STEREO LOC FOR CORE BRST BX LT 04/24/2010 left STRESS TEST 12/17/2017 TONSILLECTOMY PRIMARY/SECONDARY <AGE 12 FAMILY HISTORY: FAMILY HISTORY Problem Relation Age of Onset Heart Mother rheumatic; 73 Colon Cancer Father dx'd age 50's Coronary Artery Disease Father age 40s, CABG (among the first done at in [place]) Stroke Sister at 58 of ruptured aneurysm Cancer Brother at 55 (tobacco, agent orange) DVT Sister SOCIAL HISTORY: Social History Tobacco Use Smoking status: Never Passive exposure: Never Smokeless tobacco: Never Vaping Use Vaping status: Never Used Substance Use Topics Alcohol use: No Drug use: No PHYSICAL EXAM: BP 110/64 (BP Site: Right Arm, BP Position: Sitting, BP Cuff Size: Regular Adult) Pulse 92 Resp 17 Ht 154.9 cm (5' 1) Wt 53.2 kg (117 lb 3.2 oz) SpO2 96% BMI 22.14 kg/m Last 3 Encounter Wt Readings: Date: Wt: 05/04/2025 53.2 kg (117 lb 3.2 oz) 03/31/2025 55.1 kg (121 lb 6.4 oz) 03/18/2025 55 kg (121 lb 4.1 oz) General: Alert and oriented x3, no acute distress Eyes: Anicteric sclera. Pupils are equally round. Extraocular movements are intact. Neck supple, no cervical lymphadenopathy Thyroid: size is not very apparent, but asymmetry noted with a right sided thyroid nodule palpable Lungs: Breathing unlabored, clear to auscultation. No wheezing, rhonchi, rales Heart regular rate and rhythm, no murmer Musculoskeletal: Muscular strength intact, No joint swelling, deformity, or tenderness Neuro: Gait normal. Sensation grossly intact. No focal findings Abdomen:Normal abdominal sounds, non tender to palpation Extremities: without edema, no deformities Skin: no rashes/ erythema LAB: TSH Date Value Ref Range Status 01/26/2025 0.871 0.270 - 4.200 mIU/L Final Free T4 Date Value Ref Range Status 01/26/2025 1.5 0.9 - 1.7 ng/dL Final Latest Ref Rng 05/01/2023 10/29/2023 01/01/2024 04/23/2024 07/29/2024 11/03/2024 01/26/2025 T4 5.5 - 10.2 ug/dL 7.2 T4 Uptake 0.91 - 1.19 0.95 FTI 5.3 - 10.8 ug/dL 7.6 TSH 0.270 - 4.200 mIU/L 3.390 3.120 2.100 5.210 (H) 1.820 3.220 0.871 Free T4 0.9 - 1.7 ng/dL 1.3 1.5 Legend: (H) High ASSESSMENT/PLAN: Acquird hypothyroidism: Cause unclear Possibly autoimmune Currently on 75 mcg daily of levothyroxine Most recent labs within normal, but TSH at low normal, likely due to recent weight loss secondary to pancreatic cancer Recommended lowering the dose of levothyroxine to 75 mcg 6 days a week, skipping on one day, given age and recent labs Recommended repeating labs in 3 months after dose change Declined refills today Follow up with labs in 3 months Medical Decision Making: Problems: Moderate: 1+ chronic illnesses with change Data: Unique test result(s) reviewed: 3+ Unique test(s) ordered: 2 Risk: Moderate: Drug management Medical Decision Making Level: 4 - Moderate Dasia Funes MD Endocrinology Associate Staff [facility] Endocrinology and Metabolism [place] [phone] documented in this encounter [facility] 03-31-2025 Note HNO ID: [id number] Author: SHIRA ORDONEZ APRN.TARGET WORKER Service: ? Author Type: Nurse Practitioner Type: [...] 03/08 Paroxysmal supraventricular tachycardia (HCC) ablation 01/2002 (Dr. ruiz [place], [facility]), follows with Dr. Moreno (prn only) [...] at bedtime as needed. Dr Dupree vit A,C,N-Lhku-Dqpqeb ([facility]) 7,160-113-100 yjnq-pm-wxlj tab Take by mouth. ACETAMINOPHEN 500 MG [...] discussed not t (more content not included)... [facility] 03-31-2025 History of Presen t illness Narrative [...] tachycardia (HCC) ablation 01/2002 ( in [place], [facility]), follows with Dr. Moreno (prn only) [...] at bedtime as needed. Dr Dupree vit A,C,N-Pyhz-Ogtvwi ([facility]) 7,160-113-100 qflk-wg-ogje tab Take by mouth. ACETAMINOPHEN 500 MG [...] PCP care team as needed Shira Ordonez APRN.TARGET WORKER Prescription instructions reviewed with patient as applicable. [...] 4 - Moderate documented in this encounter [facility] 03-20-2025 Telephone encounter Note Patient informed and verbalized understanding. Grupo Cervantes MA [facility] 03-20-2025 Miscellaneous Notes Patient informed and verbalized understanding. Grupo Cervantes MA Please let patient know her labs show a slightly low sodium level but she her labs are other navarrete normal. documented in this encounter [facility] 03-19-2025 Telephone encounter Note Please let patient know her labs show a slightly low sodium level but she her labs are other navarrete normal. [facility] Work Phone: 03-18-2025 Telephone encounter Note Patient was seen by hematology for pancreatic mass. Presented with abdominal pain to [facility], CT of the abdomen and pelvis done December 10, 2024 showed 2.8 cm mass ill-defined margins in the body of the pancreas. She was seen by GI on January 01, 2025 and referred for EUS and biopsy. That was done at [facility] on February 10, 2025 showed a [...] needed and to start Zofran as needed. NATER a today. [facility] 03-18-2025 Miscellaneous Notes Patient was seen by hematology for pancreatic mass. Presented with abdominal pain to [facility], CT of the abdomen and pelvis done December 10, 2024 showed 2.8 cm mass ill-defined margins in the body of the pancreas. She was seen by GI on January 01, 2025 and referred for EUS and biopsy. That was done at [facility] on February 10, 2025 showed a [...] CHARBEL avery today. documented in this encounter [facility] 03-18-2025 Note HNO ID: [id number] Author: DAWIT PHELAN APRN.CNP Service: ? Author Type: Nurse Practitioner [...] supraventricular tachycardia (HCC) ablation 01/2002 ( in [place], [facility]), follows with Dr. Moreno (prn only) [...] FLX DX W/COLLJ SPEC WHEN PFRMD 10/14/2018 [facility]-Repeat 5 years COLONOSCOPY SCREENING 11/15/2023 R Cebul no repeat due to age CORRECT BUNION,SIMPLE left ECHOCARDIOGRAM 10/18/2017 EGD 1985 bleeding ulcer EPS: SVT/VT ABLATION 2001 [facility] ESOPHAGOGASTRODUODENOSCOPY TRANSORAL DIAGNOSTIC 03/24/2018 EGD HERNIA REPAIR HX 09/2020 ventral hernia repair HOLTER 24 HR 10/2017 LOOP RECORDER IMPLANT 01/23/2018 NASAL/SINUS ENDOSCOPY WITH SPHENOIDOTOMY Bilateral 05/15/2019 Dr. Ruffin NASAL/SINUS ENDOSCPY W/MAXILL ANTROSTOMY Bilateral 05/15/2019 Dr. Ruffin NASAL/SINUS ENDOSCPY W/TOTAL ETHMOIDECTOMY Bilateral 05/15/2019 Dr. Ruffin OPEN REPAIR OF ROTATOR CUFF ACUTE 04/2005 Dr. Logee PAST SURGICAL HISTORY OF 10/1997 partial colectomy ([place], [facility]) PAST SURGICAL HISTORY OF 2011 nerves cut in my back STEREO LOC FOR CORE BRST BX LT 04/24/2010 left STRESS TEST 12/17/2017 TONSILLECTOMY PRIMARY/SECONDARY Family History FAMILY HISTORY Problem Relation Age of Onset Heart Mother rheumatic; 73 Colon Cancer Father dx'd age 50's Coronary Artery Disease Father age 40s, CABG (among the first done at in [place]) Stroke Sister at 58 of ruptured aneurysm [...] at bedtime as needed. Dr Dupree vit A,C,M-Xdih-Klvbkz (PRESERVISION AREDS) 7,160-113-100 gufq-wv-tgxa tab Take by m (more content not included)... [facility] 03-18-2025 History of Presen t illness Narrative [...] supraventricular tachycardia (HCC) ablation 01/2002 ( in [place], [facility]), follows with Dr. Moreno (prn only) [...] FLX DX W/COLLJ SPEC WHEN PFRMD 10/14/2018 [facility]-Repeat 5 years COLONOSCOPY SCREENING 11/15/2023 R Cebul no repeat due to age CORRECT BUNION,SIMPLE left ECHOCARDIOGRAM 10/18/2017 EGD 1985 bleeding ulcer EPS: SVT/VT ABLATION 2001 [facility] ESOPHAGOGASTRODUODENOSCOPY TRANSORAL DIAGNOSTIC 03/24/2018 EGD HERNIA REPAIR HX 09/2020 ventral hernia repair HOLTER 24 HR 10/2017 LOOP RECORDER IMPLANT 01/23/2018 NASAL/SINUS ENDOSCOPY WITH SPHENOIDOTOMY Bilateral 05/15/2019 Dr. Ruffin NASAL/SINUS ENDOSCPY W/MAXILL ANTROSTOMY Bilateral 05/15/2019 Dr. Ruffin NASAL/SINUS ENDOSCPY W/TOTAL ETHMOIDECTOMY Bilateral 05/15/2019 Dr. Ruffin OPEN REPAIR OF ROTATOR CUFF ACUTE 04/2005 Dr. Mejias PAST SURGICAL HISTORY OF 10/1997 partial colectomy ([place], [facility]) PAST SURGICAL HISTORY OF 2011 nerves cut in my back STEREO LOC FOR CORE BRST BX LT 04/24/2010 left STRESS TEST 12/17/2017 TONSILLECTOMY PRIMARY/SECONDARY <AGE 12 Family History FAMILY HISTORY Problem Relation Age of Onset Heart Mother rheumatic; 73 Colon Cancer Father dx'd age 50's Coronary Artery Disease Father age 40s, CABG (among the first done at in [place]) Stroke Sister at 58 of ruptured aneurysm [...] mouth at bedtime as needed. Dr Joon Avery,C,V-Bqaw-Ostizi ([facility]) 7,160-113-100 qpbz-pf-aats tab Take by mouth. ACETAMINOPHEN 500 MG [...] PO water intake, verbalized understanding. Dawit Phelan APRN.RUSTY documented in this encounter [facility] 03-16-2025 Telephone encounter Note Spoke with patient and relayed provider message. She verbalizes understanding. Surgeon said she needs 3 month of chemo before she can have surgery. She sees oncologist tomorrow. Zulma Ji MA March 16, 2025 5:22 PM [facility] 03-16-2025 Miscellaneous Notes Spoke with patient and relayed provider message. She verbalizes understanding. Surgeon said she needs 3 month of chemo before she can have surgery. She sees oncologist tomorrow. Zulma Ji MA March 16, 2025 5:22 PM Sounds [...] Halima Diaz RN documented in this encounter [facility] 03-16-2025 Telephone encounter Note Sounds like abdominal bloating. I know that she has had some of that with the pancreatic cancer. If she develops vomiting or pain is extremely uncomfortable, go to the emergency room. She was to see surgeon today. Wondering how that went or what they recommended? [facility] 03-16-2025 Telephone encounter Note Pt notified. Pain is around the belt line. Pain to touch and soreness. Pain with laying down. She is still on the Macrobid currently, started yesterday has had 2 pills so far. Call pt back with any further advise or recommendations. Yarelis Oliva MA [facility] 03-16-2025 Telephone encounter Note There was no [...] her pelvis, may be a bladder infection. [facility] 03-16-2025 Telephone encounter Note Patient was seen [...] provider has additional advise. Halima Diaz RN [facility] 03-16-2025 History of Presen t illness Narrative [...] Use: Not At Risk (04/16/2024) Received from [facility] AUDIT-C Frequency of Alcohol Consumption: Never Average Number of Drinks: Patient does not drink Frequency of Binge Drinking: Never Financial Resource Strain: Patient Declined (04/16/2024) Received from [facility] Overall Financial Resource Strain (CARDIA) Difficulty of Paying Living Expenses: Patient declined Food Insecurity: Patient Declined (04/16/2024) Received from [facility] Hunger Vital Sign Worried About Running Out of Food in the Last Year: Patient declined Ran Out of Food in the Last Year: Patient declined Transportation Needs: Unknown (04/16/2024) Received from [facility] PRAPARE - Transportation Lack of Transportation (Medical): Patient declined Lack of Transportation (Non-Medical): Not on file Physical Activity: Patient Declined (04/16/2024) Received from [facility] Exercise Vital Sign Days of Exercise per Week: Patient declined Minutes of Exercise per Session: Patient declined Stress: Stress Concern Present (04/16/2024) Received from [facility] [place] [place] [facility] - Occupational Stress Questionnaire Feeling of Stress : To some extent Social Connections: Patient Declined (04/16/2024) Received from [facility] Social Connection and Isolation Panel [NHANES] Frequency of Communication with Friends and Family: Patient declined Frequency of Social Gatherings with Friends and Family: Patient declined Attends Synagogue Services: Patient declined Active Member of Clubs or Organizations: Patient declined Attends Club or Organization Meetings: Patient declined Marital Status: Patient declined Intimate Partner Violence: Not on file Depression: At risk (03/15/2025) Received from [facility] PHQ-2 PHQ-2 score: 4 Housing Stability: Patient Declined (04/16/2024) Received from [facility] Housing Stability Vital Sign Unable to Pay for Housing in the Last Year: Patient declined Number of Places Lived in the Last Year: Not on file Unstable Housing in the Last Year: Patient declined Utilities: Patient Declined (04/16/2024) Received from [facility] Utilities Threatened with loss of utilities: Patient declined Health Literacy: Not on file Medications: Medication Documentation Review Audit Reviewed by Soha Uriostegui MA (Broker In Charge) on 03/16/25 at 1033 Medication Order Taking? Sig Documenting Provider Last Dose Status acetaminophen (Tylenol) 500 MG tablet [id number] Yes Take 500 mg by mouth if needed. Historical ProviderMD Active B Cjouoic-Myoxzd-DV (GNP B-100 Complex) tablet controlled-release [id number] Take 100 mg by mouth daily. Patient not taking: Reported on 03/16/2025 Historical ProviderMD Active cholecalciferol (D 1000) 25 MCG (1000 UT) capsule [id number] Take 1,000 Units by mouth daily. Patient not taking: Reported on 03/16/2025 Historical ProviderMD Active clonazePAM (KlonoPIN) 0.5 MG tablet [id number] Yes Take 0.5 mg by mouth Nightly as needed. Historical ProviderMD Active fluticasone, sensor, (ArmonAir Digihaler) 232 MCG/ACT inhaler [id number] Yes Inhale 1 puff twice a day. Historical ProviderMD Active levalbuterol (Xopenex) 45 MCG/ACT inhaler [id number] Yes Inhale 1-2 puffs every 4 hours as needed. Historical ProviderMD Active levothyroxine (Synthroid, Levoxyl) 50 MCG tablet [id number] Yes Take 50 mcg by mouth. Historical ProviderMD Active nitrofurantoin, macrocrystal-monohydrate, (Macrobid) 100 MG capsule [id number] Yes Take 100 mg by mouth. Historical Provider, Active nortriptyline (Pamelor) 10 MG capsule [id number] Yes Take 10 mg by mouth Nightly. Historical Provider, Active rOPINIRole (Requip) 0.5 MG tablet [id number] Yes Take 0.5 mg by mouth Once. Historical Provider, Active Allergies: Allergies Allergen Reactions Sulfa Antibiotics [...] (HPB) and Surgical Oncology Department of Surgery [facility] documented in this encounter [facility] 03-16-2025 Instructions Ellyn Vuong MA - [...] up as needed documented in this encounter [facility] 03-16-2025 Note Hepatobiliary Surger y (HPB) [...] Use: Not At Risk (04/16/2024) Received from [facility] AUDIT-C Frequency of Alcohol Consumption: Never Average Number of Drinks: Patient does not drink Frequency of Binge Drinking: Never Financial Resource Strain: Patient Declined (04/16/2024) Received from [facility] Overall Financial Resource Strain (CARDIA) Difficulty of Paying Living Expenses: Patient declined Food Insecurity: Patient Declined (04/16/2024) Received from [facility] Hunger Vital Sign Worried About Running Out of Food in the Last Year: Patient declined Ran Out of Food in the Last Year: Patient declined Transportation Needs: Unknown (04/16/2024) Received from [facility] PRAPARE - Transportation Lack of Transportation (Medical): Patient declined Lack of Transportation (Non-Medical): Not on file Physical Activity: Patient Declined (04/16/2024) Received from [facility] Exercise Vital Sign Days of Exercise per Week: Patient declined Minutes of Exercise per Session: Patient declined Stress: Stress Concern Present (04/16/2024) Received from [facility] [place] [facility] - Occupational Stress Questionnaire Feeling of Stress : To some extent Social Connections: Patient Declined (04/16/2024) Received from [facility] Social Connection and Isolation Panel [NHANES] Frequency of Communication with Friends and Family: Patient declined Frequency of Social Gatherings with Friends and Family: Patient declined Attends Synagogue Services: Patient declined Active Member of Clubs or Organizations: Patient declined Attends Club or Organization Meetings: Patient declined Marital Status: Patient declined Intimate Partner Violence: Not on file Depression: At risk (03/15/2025) Received from [facility] PHQ-2 PHQ-2 score: 4 Housing Stability: Patient Declined (04/16/2024) Received from [facility] Housing Stability Vital Sign Unable to Pay for Housing in the Last Year: Patient declined Number of Places Lived in the Last Year: Not on file Unstable Housing in the Last Year: Patient declined Utilities: Patient Declined (04/16/2024) Received from [facility] Utilities Threatened with loss of utilities: Patient declined Health Literacy: Not on file Medications: Medication Documentation Review Audit Reviewed by Soha Uriostegui MA (Broker In Charge) on 03/16/25 at 1033 Medication Order Taking? Sig Documenting Provider Last Dose Status acetaminophen (Tylenol) 500 MG tablet [id number] Yes Take 500 mg by mouth if needed. Historical Provider, Active B Wfnkvdq-Adhxqu-VW (GNP B-100 Complex) tablet controlled-release [id number] Take 100 mg by mouth daily. Patient not taking: Reported on 03/16/2025 Historical Provider, Active cholecalciferol (D 1000) 25 MCG (1000 UT) capsule [id number] Take 1,000 Units by mouth daily. Patient not taking: Reported on 03/16/2025 Historical Provider, Active clonazePAM (KlonoPIN) 0.5 MG tablet [id number] Yes Take 0.5 mg by mouth Nightly as needed. Historical Provider, Active fluticasone, sensor, (ArmonAir Digihaler) 232 MCG/ACT inhaler [id number] Yes Inhale 1 puff twice a day. Historical Provider, Active levalbuterol (Xopenex) 45 MCG/ACT inhaler [id number] Yes Inhale 1-2 puffs every 4 hours as needed. Historical Provider, Active levothyroxine (Synthroid, Levoxyl) 50 MCG tablet [id number] Y (more content not included)... [facility] 03-15-2025 Note Addended by: ANITRA MANCERA on: 03/15/2025 10:41 AM Modules accepted: Orders [facility] 03-15-2025 Miscellaneous Notes Addended by: ANITRA MANCERA on: 03/15/2025 10:41 AM Modules accepted: Orders documented in this encounter [facility] 03-15-2025 Instructions Anitra Mancera APRN.CNP - 03/15/2025 10:26 AM EDT 1) ondansetron 4 mg every 8 hours as needed for nausea 2) propranolol 10 mg up to 3 x day as needed for palpitations and anxiety 3) check urine and culture 4) Follow up in 3 months documented in this encounter [facility] 03-15-2025 Note HNO ID: [id number] Author: ANITRA MANCERA APRN.CNP Service: ? Author Type: Nurse Practitioner [...] supraventricular tachycardia (HCC) ablation 01/2002 ( in [facility]), follows with Dr. Moreno (prn only) [...] FLX DX W/COLLJ SPEC WHEN PFRMD 10/14/2018 [facility]-RYuly C[place]-Repeat 5 years COLONOSCOPY SCREENING 11/15/2023 R Cebul no repeat due to age CORRECT BUNION,SIMPLE left ECHOCARDIOGRAM 10/18/2017 EGD 1985 bleeding ulcer EPS: SVT/VT ABLATION 2001 [facility] ESOPHAGOGASTRODUODENOSCOPY TRANSORAL DIAGNOSTIC 03/24/2018 EGD HERNIA REPAIR HX 09/2020 ventral hernia repair HOLTER 24 HR 10/2017 LOOP RECORDER IMPLANT 01/23/2018 NASAL/SINUS ENDOSCOPY WITH SPHENOIDOTOMY Bilateral 05/15/2019 Dr. Ruffin NASAL/SINUS ENDOSCPY W/MAXILL ANTROSTOMY Bilateral 05/15/2019 Dr. Ruffin NASAL/SINUS ENDOSCPY W/TOTAL ETHMOIDECTOMY Bilateral 05/15/2019 Dr. Ruffin OPEN REPAIR OF ROTATOR CUFF ACUTE 04/2005 Dr. Mejias PAST SURGICAL HISTORY OF 10/1997 partial colectomy ([place], [facility]) PAST SURGICAL HISTORY OF 2011 nerves [...] at bedtime as needed. Dr Dupree vit A,C,T-Vwpk-Rbkzln (PRESERVISION AREDS) 7,160-113-100 dmww-qz-tsht tab Take by mouth. ACETAMINOPHEN 500 MG TAB Take one(1) tablet every four(4) to six(6) hours as needed for pain. No current facility-administered medications for this visit. FAMILY HISTORY Problem Relation Age of Onset Heart Mother rheumatic; 73 Colon Cancer Father dx'd age 50's Coronary Artery Disease Father age 40s, CABG (among the first done at in [place]) Stroke Sister at 58 of ruptured aneurysm Cancer Brother at 55 (tobacco, agent orange) DVT Sister Social History Tobacco Use Smoking status: Never Smokeless tobacco: Never Vaping Use Vaping status: Never Used Substance Use Topics Alcohol use: No Drug use: No (more content not included)... [facility] 03-15-2025 History of Presen t illness Narrative [...] supraventricular tachycardia (HCC) ablation 01/2002 ( in [place], [facility]), follows with Dr. Moreno (prn only) [...] FLX DX W/COLLJ SPEC WHEN PFRMD 10/14/2018 [facility]. Cebul-Repeat 5 years COLONOSCOPY SCREENING 11/15/2023 R Cebul no repeat due to age CORRECT BUNION,SIMPLE left ECHOCARDIOGRAM 10/18/2017 EGD 1985 bleeding ulcer EPS: SVT/VT ABLATION 2001 [facility] ESOPHAGOGASTRODUODENOSCOPY TRANSORAL DIAGNOSTIC 03/24/2018 EGD HERNIA REPAIR HX 09/2020 ventral hernia repair HOLTER 24 HR 10/2017 LOOP RECORDER IMPLANT 01/23/2018 NASAL/SINUS ENDOSCOPY WITH SPHENOIDOTOMY Bilateral 05/15/2019 Dr. Ruffin NASAL/SINUS ENDOSCPY W/MAXILL ANTROSTOMY Bilateral 05/15/2019 Dr. Ruffin NASAL/SINUS ENDOSCPY W/TOTAL ETHMOIDECTOMY Bilateral 05/15/2019 Dr. Ruffin OPEN REPAIR OF ROTATOR CUFF ACUTE 04/2005 Dr. Mejias PAST SURGICAL HISTORY OF 10/1997 partial colectomy ([place], [facility]) PAST SURGICAL HISTORY OF 2011 nerves [...] at bedtime as needed. Dr Dupree vit A,C,Q-Zneg-Rvrwqf (PRESERVISION AREDS) 7,160-113-100 rmvc-fz-ahjn tab Take by mouth. ACETAMINOPHEN 500 MG TAB Take one(1) tablet every four(4) to six(6) hours as needed for pain. No current facility-administered medications for this visit. FAMILY HISTORY Problem Relation Age of Onset Heart Mother rheumatic; 73 Colon Cancer Father dx'd age 50's Coronary Artery Disease Father age 40s, CABG (among the first done at in [place]) Stroke Sister at 58 of ruptured aneurysm [...] as needed for worsening/no improvement. Anitra Mancera APRN.TARGET WORKER documented in this encounter [facility] 03-15-2025 Note HNO ID: [id number] Author: NATHALIA JAY APRN.CNP Service: ? Author [...] to get her in at 10 AM. [facility] 03-15-2025 History of Presen t illness Narrative [...] at 10 AM. documented in this encounter [facility] 02-24-2025 Note HNO ID: [id number] Author: SENA HAHN MA Service: ? Author Type: Broker In Charge Type: Progress Notes Filed: 02/24/2025 16:08 Note Text: POPULATION HEALTH NAVIGATION OUTREACH Action/EVELIO Karimi called and she was dx with [...] Hahn MA February 24, 2025 4:06 PM [facility] 02-24-2025 History of Presen t illness Narrative POPULATION HEALTH NAVIGATION OUTREACH Action/EVELIO Karimi called and she was dx with [...] 2025 3:07 PM documented in this encounter [facility] 02-24-2025 Note HNO ID: [id number] Author: SENA HAHN MA Service: ? Author Type: Broker In Charge Type: Progress Notes Filed: 02/24/2025 16:06 Note [...] Hahn MA February 24, 2025 3:07 PM [facility] 02-24-2025 Note Patient Outreach (NE TNAV) SACHI GRACE ([id number]) 1935 F NFR Date Time Provider Department 02/24/25 SENA HAHN During your visit today, we recorded the following information about you: Sena Hahn MA 02/24/2025 4:06 PM Addendum POPULATION HEALTH NAVIGATION OUTREACH Action/FYI NO ANSWER [employer] MESSAGE SENT Topic Due (Y or N) Comments Medicare Wellness Y PCP Follow up Colorectal Cancer Screening Controlling Blood Pressure A1C HCC Y Flu Vaccine Care Everywhere Reviewed Providajob Activation Updated Appointment Note Reason for Outreach Care Gap/HCC or Scheduling Wellness Visits Care Gaps due: Medicare Annual Wellness Visit Patient Contacted: Unable or unnecessary to reach patient: Unable to leave message Providajob message sent HCC related Navigation Signature: Sena [...] Upset Date Reviewed: 12/18/2024 Reviewed by: Zulma Ji MA - Fully Assessed Prescriptions as of [...] bedtime as needed. Dr Dupree - vit A,C,H-Estz-Gnsmoq (PRESERVISION AREDS) 7,160-113-100 spqj-wq-oxvn tab Take by mouth. - ACETAMINOPHEN 500 MG TAB Take one(1) tablet every four(4) to six(6) hours as needed for pain. Problem List As Of Date 02/24/2025 Noted Resolved Unspecified constipation [K59.00] 04/30/2006 03/16/2016 PEPTIC ULCER NOS [K27.9] 03/19/2007 GENERALIZED ANXIETY DIS [F41.1] Generalized osteoarthrosis, unspecified site [M* 12/23/2015 Myalgia and myositis [PXH9909] 05/22/2017 Diverticulosis of large intestine [K57.30] Disorder [...] (HCC) [F13.20] 05/29/2023 Anxiety [F41.9] 01/01/2024 Diagnosed: (more content not included)... [facility] 02-15-2025 Telephone encounter Note PCP was asking for update on patient about GI consult. Spoke with patient, she had biopsy done at [facility]. She said she has pancreatic cancer. She is going to see [facility] oncology office. They are waiting for final pathology results to make her appointment. Zulma Ji MA February 15, 2025 9:54 AM [facility] 02-15-2025 Miscellaneous Notes PCP was asking for update on patient about GI consult. Spoke with patient, she had biopsy done at [facility]. She said she has pancreatic cancer. She is going to see [facility] oncology office. They are waiting for final pathology results to make her appointment. Zulma Ji MA February 15, 2025 9:54 AM documented in this encounter [facility] 02-15-2025 Telephone encounter Note The following approved medication requests have been transmitted electronically. Requested Prescriptions Pending Prescriptions Disp Refills rOPINIRole (REQUIP) 0.5 mg tablet 135 tablet 1 Sig: Take 1.5 tablets by mouth daily at bedtime. Anitra Mancera APRN.CNP [facility] 02-15-2025 Miscellaneous Notes The following approved medication [...] Marcia Sue RN documented in this encounter [facility] 02-15-2025 Telephone encounter Note Patient calls to request refill or ropinirole 0.5 mg take 1.5 mg tablet daily at bedtime. Medication discontinued. Note says patient discontinued. Patient says that is not true she has been taking medication and wants it refilled. Pended per request. Last OV: 01/21/2025 Next OV: None Marcia Sue RN [facility] 02-10-2025 Procedure anesthe elidia Narrative Procedure Name [...] Alyse Campos RN [facility]* Addendum Note - RIGO Mora CRNA - 02/10/2025 1:33 PM EDT Addendum created 02/10/25 1333 by RIGO Mora CRNA Clinical Note Signed [id number] Miscellaneous Notes* Addendum Note - RIGO Mora CRNA - 02/10/2025 1:33 PM EDT Addendum created 02/10/25 1333 by RIGO Mora CRNA Clinical Note Signed * Anesthesia Discharge Note - RIGO Mora CRNA - 02/10/2025 12:47 PM EDT Patient: Sachi Grace Procedure Summary Date: 02/10/25 Room / Location: [place] [address] / [facility] Gastroenterology Anesthesia Start: 1201 Anesthesia Stop: [...] criteria has been met. documented in this encounterSumma [id number] Note* Anesthesia Discharge Note - RIGO Mora CRNA - 02/10/2025 12:47 PM EDT Patient: Sachi Grace Procedure Summary Date: 02/10/25 Room / Location: [place] [address] / [facility] Gastroenterology Anesthesia Start: 1201 Anesthesia Stop: [...] once all PACU criteria has been met. [id number] NotePatient: Sachi Grace Procedure Summary Date: 02/10/25 Room / Location: [place] [address] / [facility] Gastroenterology Anesthesia Start: 120 Anesthesia Stop: 1240 Procedure: ESOPHAGOSCOPIC ULTRASOUND EXAM [...] discharged once all PACU criteria has been met.[facility] [id number] Anesthesiology Postoperative evaluation and management note * Anesthesia Postprocedure Evaluation - Devin Zeng APRN - ANNA - 02/10/2025 12:46 PM EDT Patient: Sachi Grace Procedure Summary Date: 02/10/25 Room / Location: [place] [address] / [facility] Gastroenterology Anesthesia Start: 1201 Anesthesia Stop: 1240 Procedure: ESOPHAGOSCOPIC ULTRASOUND EXAM Diagnosis: Other specified diseases of pancreas Providers: Quitnen Franco MD Responsible Provider: Flaquito Pineda MD [...] opportunity for questions and acknowledgement of understanding. [facility] [id number] NotePatient: Sachi Grace Procedure Summary Date: 02/10/25 Room / Location: [place] [address] / [facility] Gastroenterology Anesthesia Start: 1201 Anesthesia Stop: [...] Allowed opportunity for questions and acknowledgement of understanding.[facility]03-12-2025 Surgical operation note* Anesthesia Postprocedure Evaluation - RIGO Mora CRNA - 02/10/2025 12:46 PM EDT Patient: Sachi Grace Procedure Summary Date: 02/10/25 Room / Location: [facility] / [facility] Gastroenterology Anesthesia Start: 1201 Anesthesia Stop: [...] 02/10/25 1130 Procedure: ESOPHAGOSCOPIC ULTRASOUND EXAM Location: [place] [address] / [facility] Gastroenterology Providers: Quinten Franco MD Relevant [...] Requests: Additional Equipment Requests documented in this [facility]03-12-2025 History and physical note* Quinten Franco MD - 02/10/2025 11:49 AM EDT Images from the original note were not included. GASTROENTEROLOGY PREPROCEDURE H&P 02/10/2025 Patient: Sachi Grace : 1935 Primary Care Physician: No primary care provider on file. HISTORY OF PRESENT ILLNESS: Sachi Grace is a 89 y.o. female who is referred by [facility] for further evaluation with EUSof a [...] by mouth Once. Yes Historical Provider, B Uauxssa-Cyfowk-HI (GNP B-100 Complex) tablet controlled-release Take 100 [...] adult who is agreeable. Quinten Franco MD [employer] Phone: 1(129) 451-316303-12-2025 NoteGASTROENTEROLOGY PREPROCEDURE H&P 02/10/2025 Patient: Sachi Grace : 1935 Primary Care Physician: No primary care provider on file. HISTORY OF PRESENT ILLNESS: Sachi Grace is a 89 y.o. female who is referred by [facility] for further evaluation with EUS of [...] by mouth Once. Yes Historical Provider, B Bnbatwi-Apetwp-DG (GNP B-100 Complex) tablet controlled-release Take 100 [...] accompanying adult who is agreeable. Quinten Franco [facility] [id number] History and physical note* Quinten Franco MD - 02/10/2025 11:49 AM EDT Images from the original note were not included. GASTROENTEROLOGY PREPROCEDURE H&P 02/10/2025 Patient: Sachi Grace : 1935 Primary Care Physician: No primary care provider on file. HISTORY OF PRESENT ILLNESS: Sachi Grace is a 89 y.o. female who is referred by [facility] for further evaluation with EUSof a [...] by mouth Once. Yes Historical Provider, B Bsyrhkj-Bdvvzg-FK (GNP B-100 Complex) tablet controlled-release Take 100 [...] agreeable. Quinten Franco MD documented in this [facility]03[facility]12[facility] Name: Sachi Grace Procedure Date: 02/10/2025 11:46 AM Gender: Female Date of : 1935 Age: 89 Admit Type: Outpatient Note Status: Finalized Endoscopist: Quinten Franco MD, [id number] Procedure: Upper EUS Indications: Suspected mass in [...] Assessment: III - (more content not included)... [facility] [id number] Procedure note* Op Note - Quinten Franco MD - 02/10/2025 11:46 AM EDT [facility] Name: Sachi Grace Procedure Date: 02/10/2025 11:46 AM Gender: Female Date of : 1935 Age: 89 Admit Type: Outpatient Note Status: Finalized Endoscopist: Quinten Franco MD, [id number] Procedure: Upper EUS Indications: Suspected mass in [...] immediate complications. Procedure Code(s): --- Professional --- 33852, Esophagogastroduodenoscopy, flexible, transoral; with transendoscopic ultrasound-guided intramural or transmural fine needle aspiration/biopsy(s) (includes endoscopic ultrasound examination of the esophagus, stomach, and either the duodenum or a surgically altered stomach where the jejunum is examined distal to the anastomosis) --- Technical --- 30080, Esophagogastroduodenoscopy, flexible, transoral; with transendoscopic ultrasound-guided intramural [...] parts of digestive tract CPT copyright 2021 [employer]. All rights reserved. The codes documented in this report are preliminary and upon thread inspector review may be revised to meet current compliance requirements. Attending Participation: I personally performed the entire procedure. Quinten Franco MD 02/10/2025 12:54:01 PM This report has been signed electronically. Number of Addenda: 0 Note Initiated On: 02/10/2025 11:46 AM [id number] Miscellaneous Notes* Op Note - Quinten Franco MD - 02/10/2025 11:46 AM EDT [facility] Patient Name: Sachi Grace Procedure Date: 02/10/2025 11:46 AM Gender: Female Date of : 1935 Age: 89 Admit Type: Outpatient Note Status: Finalized Endoscopist: Quinten Franco MD, [id number] Procedure: Upper EUS Indications: Suspected mass in [...] immediate complications. Procedure Code(s): --- Professional --- 65484, Esophagogastroduodenoscopy, flexible, transoral; with transendoscopic ultrasound-guided intramural or transmural fine needle aspiration/biopsy(s) (includes endoscopic ultrasound examination of the esophagus, stomach, and either the duodenum or a surgically altered stomach where the jejunum is examined distal to the anastomosis) --- Technical --- 30204, Esophagogastroduodenoscopy, flexible, transoral; with transendoscopic ultrasound-guided intramural [...] parts of digestive tract CPT copyright 2021 [employer]. All rights reserved. The codes documented in this report are preliminary and upon thread inspector review may be revised to meet current compliance requirements. Attending Participation: I personally performed the entire procedure. Quinten Franco MD 02/10/2025 12:54:01 PM This report has been signed electronically. Number of Addenda: 0 Note Initiated On: 02/10/2025 11:46 AM documented in this [facility]03-12-2025 Anesthesiology Preoperative evaluation and management note* Anesthesia Preprocedure Evaluation - Devin Zeng APRN - [employer] - 02/10/2025 11:27 AM EDT Patient: Sachi Grace Procedure Information Date/Time: 02/10/25 1130 Procedure: ESOPHAGOSCOPIC ULTRASOUND EXAM Location: [place] [address] / [facility] Gastroenterology Providers: Quinten Franco MD Relevant [...] previous visit. Equipment Requests: Additional Equipment Requests [facility] [id number] NotePatient: Sachi Grace Procedure Information Date/Time: 02/10/25 1130 Procedure: ESOPHAGOSCOPIC ULTRASOUND EXAM Location: [place] [address] / [facility] Gastroenterology Providers: Quinten Franco MD Relevant [...] any previous visit. Equipment Requests: [facility] Telephone encounter Note* Telephone Encounter - Anitra Mancera APRN.CNP - 01/22/2025 5:23 PM EST MRI results reviewed with her. Concerning cyst and solid- possible cancer. [facility] referring herto [place]. Appreciates call. [facility]02-21-2025 Miscellaneous Notes* Telephone Encounter - Anitra Mancera APRN.CNP - 01/22/2025 5:23 PM EST MRI results reviewed with her. Concerning cyst and solid- possible cancer. [facility] referring herto somewhere in [place]. Appreciates call. * Telephone Encounter - Zulma Ji MA - 01/22/2025 5:12 PM EST MRI [...] them again. * Telephone Encounter - Zulma Ji MA - 01/21/2025 4:54 PM EST Office did not receive records from TAYLOR Ji MA January 21, 2025 4:55 PM * Telephone Encounter - Halima Hernandez - 01/21/2025 4:08 PM EST Patient is calling stating she seen [facility] and they are stating patient is tocall PCP office for additional testing and they was to fax notes to our office. Please advise patient documented in [facility] encounterTr[facility] Telephone encounter Note * Telephone Encounter - Zulma Ji MA - 01/22/2025 5:12 PM EST MRI results scanned [facility]02-21-2025 Telephone encounter Note* Telephone Encounter - Alix Garcia RN - 01/22/2025 4:18 PM EST Pt called in asking about MRI results. I let her know providers office has not received them yet. She states they told her they have sent them twice. She states she will call them to send them again. [facility]02-20-2025 Telephone encounter Note* Telephone Encounter - Zulma Ji MA - 01/21/2025 4:54 PM EST Office did not receive records from TAYLOR Ji MA January 21, 2025 4:55 PM [facility]02-20-2025 Telephone encounter Note* Telephone Encounter - Halima Hernandez - 01/21/2025 4:08 PM EST Patient is calling stating she seen [facility] and they are stating patient is tocall PCP office for additional testing and they was to fax notes to our office. Please advise patient [facility]02-14-2025 History of Present illness Narrative* Zulma Packer, (R) - 01/15/2025 9:00 AM EST Radiology Service [...] PATIENT PRESENTS WITH AN IMPLANTABLE OR ATTACHED INDUSTRIAL MECHANIC: No ALLERGIES: Reviewed and unchanged CONTRAST ALLERGY: NO. EXAM: MRI - CONTRAST TYPE: GROUP II PERIPHERAL IV DATA: Ambulatory: A peripheral IV was started in the Left antecubital site with a Angio cath: 22 gauge. RADIOLOGY DEPARTMENT: MR; Exam(s) Completed: Body: Pancreas/Biliary SIGNATURE: RT Salvador(R) PATIENT NAME: Sachi Grace DATE: January 15, 2025 TIME: 9:10 AM documented in this encounterTr[facility]-2025 NoteHNO ID: [id number] Author: ZULMA PACKER RT (R) Service: ? [...] PATIENT PRESENTS WITH AN IMPLANTABLE OR ATTACHED INDUSTRIAL MECHANIC: No ALLERGIES: Reviewed and unchanged CONTRAST ALLERGY: NO. EXAM: MRI - CONTRAST TYPE: GROUP II PERIPHERAL IV DATA: Ambulatory: A peripheral IV was started in the Left antecubital site with a Angio cath: 22 gauge. RADIOLOGY DEPARTMENT: MR; Exam(s) Completed: Body: Pancreas/Biliary SIGNATURE: RT Salvador(R) PATIENT NAME: Sachi Grace DATE: January 15, 2025 TIME: 9:10 [facility]02-13-2025 Telephone encounter Note* Telephone Encounter - Sharon Stoddard - 01/14/2025 11:22 AM EST Spoke with patient and scheduled MRI for 01/15/25 at 9:00 AM. Sharon Stoddard [facility]02-13-2025 Miscellaneous Notes* Telephone Encounter - Sharon Stoddard - 01/14/2025 11:22 AM EST Spoke with patient and scheduled MRI for 01/15/25 at 9:00 AM. Sharon Arlyn * Telephone Encounter - Bridgette Shaw - 01/14/2025 8:50 AM EST Patient calling for status update on MRI being ordered. Please contact patient to advise. documented in this encounterTr[facility]-2025 Telephone encounter Note * Telephone Encounter - Bridgette Shaw - 01/14/2025 8:50 AM EST Patient calling for status update on MRI being ordered. Please contact patient to advise. [facility]02-05-2025 Telephone encounter Note* Telephone Encounter - Halima Diaz RN - 01/06/2025 8:48 AM EST Opened in error. Halima Diaz RN [facility]02-05-2025 Miscellaneous Notes* Telephone Encounter - Halima Diaz RN - 01/06/2025 8:48 AM EST Opened in error. Halima Diaz RN documented in this encounterTrinity [facility]-04-2025 NoteHNO ID: [id number] Author: SENA HAHN MA Service: ? Author Type: Broker In Charge Type: Progress Notes Filed: 01/05/2025 08:57 Note Text: POPULATION HEALTH NAVIGATION OUTREACH Action/EVELIO Karimi returned call. She declined wellness exam Reason for Outreach Care Gap/HCC or Scheduling Wellness Visits Care Gaps due: Medicare Annual Wellness Visit Patient Contacted: Spoke to patient/parent/or legal guardian Patient identified by name and : Yes Care Gap/HCC/Scheduling Wellness actions taken: Patient declined: Doesn't feel it's necessary Navigation Signature: Sena Hahn MA January 05, 2025 8:55 [facility]02-04-2025 History of Present illness Narrative* Sena Hahn MA - 01/05/2025 8:55 AM EST POPULATION HEALTH NAVIGATION OUTREACH Action/EVELIO Karimi returned [...] 7:31 AM EST POPULATION HEALTH NAVIGATION OUTREACH Action/I [facility] Topic Due (Y or N) Comments Medicare [...] 05, 2025 7:31 AM documented in this encounterTr[facility]02-[facility]-2025 NoteHNO ID: [id number] Author: SENA HAHN MA Service: ? Author Type: Broker In Charge Type: Progress Notes Filed: 01/05/2025 08:57 Note [...] Sena Hahn MA January 05, 2025 7:31 [facility]02-04-2025 NotePatient Outreach (NETNAV) SACHI GRACE ([id number]) 1935 F NFR Date Time Provider Department 01/05/25 SENA HAHN NETNAV During your visit today, we recorded the following information about you: Sena Hahn MA 01/05/2025 8:57 AM Signed POPULATION HEALTH NAVIGATION OUTREACH Action/FYI LVM Topic [...] Upset Date Reviewed: 12/18/2024 Reviewed by: Zulma Ji MA - Fully Assessed Reason for Visit: [...] bedtime as needed. Dr Dupree - vit A,C,M-Qdlv-Wzyuoj (PRESERVISION AREDS) 7,160-113-100 pmrv-yg-vgnf tab Take by mouth. - ACETAMINOPHEN 500 MG TAB Take one(1) tablet every four(4) to six(6) hours as needed for pain. Problem List As Of Date 01/05/2025 Noted Resolved Unspecified constipation [K59.00] 04/30/2006 03/16/2016 PEPTIC ULCER NOS [K27.9] 03/19/2007 GENERALIZED ANXIETY DIS [F41.1] Generalized osteoarthrosis, unspecified site [M* 12/23/2015 Myalgia and myositis [WNJ5615] 05/22/2017 Diverticulosis of large intestine [K57.30] Disorder [...] Anxiety [F41.9] 01/01/2024 Diagno (more content not included)...[facility]01-29-2025 Note HNO ID: [id number] Author: ARCELIA VU LPN Service: ? Author Type: LICENSED NURSE Type: Progress Notes Filed: 12/30/2024 10:18 Note Text: Patient presented for H. Pylori Breath testing per Dayna Mancera CNP. Obtained baseline sample at 9:56am. Patient then drank Pranactin-Citric solution. Waited full 15 minutes and obtained second sample at 10:16am. Patient tolerated testing well with no problems. LOT # [id number] EXP 05/31/2025 [facility] History of Present illness Narrative* Arcelia Vu LPN - 12/30/2024 9:56 AM EST Patient presented for H. Pylori Breath testing per Dayna Mancera CNP. Obtained baseline sample at 9:56am. Patient then drank Pranactin-Citric solution. Waited full 15 minutes and obtained second sample at 10:16am. Patient tolerated testing well with no problems. LOT # [id number] EXP 05/31/2025 Arcelia Vu LPN documented in this encounterTr[facility]01-[facility]-2025 Telephone encounter Note * Telephone Encounter - Skylar Spears LPN - 12/22/2024 2:11 PM EST Pt called and asked to have referral and supporting information be faxed to Dr. Rm at [facility]. {Pt has apt on 01-01-25. Done. Skylar Spears LPN [facility]01-21-2025 Miscellaneous Notes* Telephone Encounter - Skylar Spears LPN - 12/22/2024 2:11 PM EST Pt called and asked to have referral and supporting information be faxed to Dr. Rm at [facility]. {Pt has apt on 01-01-25. Done. Skylar Spears LPN documented in this encounterTrinity [facility]01-17-2025 Instructions* Patient Instructions* Anitra Mancera APRN.CNP - 12/18/2024 10:20 AM EST - CONSULT TO GENERAL SURGERY - BREATH TEST FOR HELICOBACTER PYLORI - Follow up in 3 months documented in this encounterTr[facility]01-17-2025 NoteHNO ID: [id number] Author: ANITRA MANCERA APRN.RUSTY Service: ? Author Type: Physician Type: Progress Notes Filed: 12/18/2024 10:20 Note Text: This is a 89 year old female who presents today with: Patient presents with: Abdominal Pain: Bloating, pain, nausea HISTORY OF PRESENT ILLNESS: Sachi Grace is a 89 year old female. Patient presents with: Abdominal Pain: Bloating, pain, nausea Patient seen at [facility] ER for the persistent nausea. She did [...] supraventricular tachycardia (HCC) ablation 01/2002 ( in [place], [facility]), follows with Dr. Moreno (prn only) [...] FLX DX W/COLLJ SPEC WHEN PFRMD 10/14/2018 [facility]. C[facility]-Repeat 5 years COLONOSCOPY SCREENING 11/15/2023 R Cebul no repeat due to age CORRECT BUNION,SIMPLE left ECHOCARDIOGRAM 10/18/2017 EGD 1985 bleeding ulcer EPS: SVT/VT ABLATION 2001 [facility] ESOPHAGOGASTRODUODENOSCOPY TRANSORAL DIAGNOSTIC 03/24/2018 EGD HERNIA REPAIR HX 09/2020 ventral hernia repair HOLTER 24 HR 10/2017 LOOP RECORDER IMPLANT 01/23/2018 NASAL/SINUS ENDOSCOPY WITH SPHENOIDOTOMY Bilateral 05/15/2019 Dr. Ruffin NASAL/SINUS ENDOSCPY W/MAXILL ANTROSTOMY Bilateral 05/15/2019 Dr. Ruffin NASAL/SINUS ENDOSCPY W/TOTAL ETHMOIDECTOMY Bilateral 05/15/2019 Dr. Ruffin OPEN REPAIR OF ROTATOR CUFF ACUTE 04/2005 Dr. Mejias PAST SURGICAL HISTORY OF 10/1997 partial colectomy ([place], [facility]) PAST SURGICAL HISTORY OF 2011 nerves [...] at bedtime as needed. Dr Dupree vit A,C,O-Mlpy-Estrre (PRESERVISION AREDS) 7,160-113-100 adqt-eq-qyhb tab Take by mouth. ACETAMINOPHE (more content not included)...[facility]01-17-2025 History of Present illness Narrative* Anitra Mancera APRN.TARGET WORKER - 12/18/2024 9:39 AM EST This is a 89 year old female who presents today with: Patient presents with: Abdominal Pain: Bloating, pain, nausea HISTORY OF PRESENT ILLNESS: Sachi Grace is a 89 year old female. Patient presents with: Abdominal Pain: Bloating, pain, nausea Patient seen at [facility] ER for the persistent nausea. She did [...] bone and cartilage, unspecified osteopenia, on actonel (Kiol) Diverticulitis s/p partial colectomy Family history of colon cancer in father Fibromyalgia Generalized anxiety disorder 1994 Dr. Dupree-every 6 months Gout, unspecified late great toe, several episodes Hypothyroidism, unspecified Multinodular goiter Dr Boateng Osteoarthritis of both knees Other and unspecified hyperlipidemia diet therapy as of 03/08 Paroxysmal supraventricular tachycardia (HCC) ablation 01/2002 ( in [place], [facility]), follows with Dr. Moreno (prn only) [...] FLX DX W/COLLJ SPEC WHEN PFRMD 10/14/2018 [facility]. Cebul-Repeat 5 years COLONOSCOPY SCREENING 11/15/2023 R Cebul no repeat due to age CORRECT BUNION,SIMPLE left ECHOCARDIOGRAM 10/18/2017 EGD 1985 bleeding ulcer EPS: SVT/VT ABLATION 2001 [facility] ESOPHAGOGASTRODUODENOSCOPY TRANSORAL DIAGNOSTIC 03/24/2018 EGD HERNIA REPAIR HX 09/2020 ventral hernia repair HOLTER 24 HR 10/2017 LOOP RECORDER IMPLANT 01/23/2018 NASAL/SINUS ENDOSCOPY WITH SPHENOIDOTOMY Bilateral 05/15/2019 Dr. Ruffin NASAL/SINUS ENDOSCPY W/MAXILL ANTROSTOMY Bilateral 05/15/2019 Dr. Ruffin NASAL/SINUS ENDOSCPY W/TOTAL ETHMOIDECTOMY Bilateral 05/15/2019 Dr. Ruffin OPEN REPAIR OF ROTATOR CUFF ACUTE 04/2005 Dr. Mejias PAST SURGICAL HISTORY OF 10/1997 partial colectomy ([place], [facility]) PAST SURGICAL HISTORY OF 2011 nerves [...] at bedtime as needed. Dr Dupree vit A,C,S-Kaqo-Iosnff (PRESERVISION AREDS) 7,160-113-100 oveh-nn-bdvf tab Take by mouth. ACETAMINOPHEN 500 MG TAB Take one(1) tablet every four(4) to six(6) hours as needed for pain. bismuth subsalicylate (PEPTO-BISMOL) 262 mg chewable tablet Take 2 tablets by mouth four times daily for 10 days. pantoprazole (PROTONIX) 40 mg tablet Take 1 tablet by mouth once daily. (Patient not taking: Reported on 12/18/2024) No current facility-administered medications for this visit. FAMILY HISTORY Problem Relation Age of Onset Heart Mother rheumatic; 73 Colon Cancer Father dx'd age 50's Coronary Artery Disease Father age 40s, CABG (among the first done at in [place]) Stroke Sister at 58 of ruptured aneurysm [...] improvement. Anitra Mancera APRN.RUSTY documented in this encounterTr[facility]25 Telephone encounter Note * Telephone Encounter - Alix Garcia RN - 12/10/2024 6:51 PM EST Pt called and is notified of providers message and instructions. Pt voices understanding and will be going to [facility] ER. Alix Garcia RN [facility]01-09-2025 Miscellaneous Notes* Telephone Encounter - Alix Garcia RN - 12/10/2024 6:51 PM EST Pt called and is notified of providers message and instructions. Pt voices understanding and will be going to [facility] ER. Alix Garcia RN * Telephone [...] provider instructions. * Telephone Encounter - Zulma Ji MA - 12/10/2024 12:59 PM EST Left [...] with Dayna on Sat12/18/24. documented in this encounterTr[facility]-2025 Telephone encounter Note * Telephone Encounter - Kevin Vang RN - 12/10/2024 5:01 PM EST Left vm for pt to return call. [facility]01-09-2025 Telephone encounter Note* Telephone Encounter - Kevin Vang RN - 12/10/2024 4:29 PM EST Left vm for patient to return call to triage nurse for providers instructions. [facility]01-09-2025 Telephone encounter Note* Telephone Encounter - Kevin Vang RN - 12/10/2024 2:02 PM EST Left vm for patient to return call to triage nurse for provider instructions. [facility]01-09-2025 Telephone encounter Note* Telephone Encounter - Zulma Ji MA - 12/10/2024 12:59 PM EST Left message on home number, attempted to call cell, no answer, no voicemail. [facility]01-09-2025 Telephone encounter Note* Telephone Encounter - Anitra Mancera APRN.CNP - 12/10/2024 12:12 PM EST Go to ER. Ulcer could perforate. Would need Ct scan [facility]01-09-2025 Telephone encounter Note* Telephone Encounter - Kevin Vang RN - 12/10/2024 11:28 AM EST Pt reports she is concerned b/c her abdomin is bloated and hard between the ribs and the naval, since Mon or Tues. Reports it is usually flat. Reports she [...] she has appt with Dayna on Sat12/18/24. [facility]12-27-2024 Instructions* Patient Instructions* Anitra Mancera APRN.CNP - 11/27/2024 11:41 AM EST 1) Start metronidazole and doxycyline- may use ondansetron if needed for nausea to complete both antibiotics for 10 days 2) Use bismuth chews for 10 days- 4 x day\ 3) continue pantoprazole for another 30 days 4) See you in Dec. documented in this encounterTr[facility]12-27-2024 NoteHNO ID: [id number] Author: ANITRA MANCERA APRN.RUSTY Service: ? Author [...] supraventricular tachycardia (HCC) ablation 01/2002 ( in [place], [facility]), follows with Dr. Moreno (prn only) [...] FLX DX W/COLLJ SPEC WHEN PFRMD 10/14/2018 [facility]. C[facility]-Repeat 5 years COLONOSCOPY SCREENING 11/15/2023 R Cebul no repeat due to age CORRECT BUNION,SIMPLE left ECHOCARDIOGRAM 10/18/2017 EGD 1985 bleeding ulcer EPS: SVT/VT ABLATION 2001 [facility] ESOPHAGOGASTRODUODENOSCOPY TRANSORAL DIAGNOSTIC 03/24/2018 EGD HERNIA REPAIR HX 09/2020 ventral hernia repair HOLTER 24 HR 10/2017 LOOP RECORDER IMPLANT 01/23/2018 NASAL/SINUS ENDOSCOPY WITH SPHENOIDOTOMY Bilateral 05/15/2019 Dr. Ruffin NASAL/SINUS ENDOSCPY W/MAXILL ANTROSTOMY Bilateral 05/15/2019 Dr. Ruffin NASAL/SINUS ENDOSCPY W/TOTAL ETHMOIDECTOMY Bilateral 05/15/2019 Dr. Ruffin OPEN REPAIR OF ROTATOR CUFF ACUTE 04/2005 Dr. Mejias PAST SURGICAL HISTORY OF 10/1997 partial colectomy ([place], [facility]) PAST SURGICAL HISTORY OF 2011 nerves [...] at bedtime as needed. Dr Dupree vit A,C,R-Nrgp-Ofgbwn (PRESERVISION AREDS) 7,160-113-100 cyvv-yp-xzeh tab Take by mouth. ACETAMINOPHEN 500 MG TAB Take one(1) tablet every four(4) to six(6) hours as needed for pain. No current facility-administered medications for this visit. FAMILY HISTORY Problem Relation Age of Onset Heart Mother rheumatic; 73 Colon Cancer Father dx'd age 50's Coronary Artery Dis (more content not included)...[facility] 11-27-2024 History of Present illness Narrative* Anitra Mancera, GENERAL SURGEON.TARGET WORKER - 11/27/2024 11:12 AM EST This is [...] supraventricular tachycardia (HCC) ablation 01/2002 ( in [facility]), follows with Dr. Moreno (prn only) [...] FLX DX W/COLLJ SPEC WHEN PFRMD 10/14/2018 [facility]. C[facility]-Repeat 5 years COLONOSCOPY SCREENING 11/15/2023 R Cebul no repeat due to age CORRECT BUNION,SIMPLE left ECHOCARDIOGRAM 10/18/2017 EGD 1985 bleeding ulcer EPS: SVT/VT ABLATION 2001 [facility] ESOPHAGOGASTRODUODENOSCOPY TRANSORAL DIAGNOSTIC 03/24/2018 EGD HERNIA REPAIR HX 09/2020 ventral hernia repair HOLTER 24 HR 10/2017 LOOP RECORDER IMPLANT 01/23/2018 NASAL/SINUS ENDOSCOPY WITH SPHENOIDOTOMY Bilateral 05/15/2019 Dr. Ruffin NASAL/SINUS ENDOSCPY W/MAXILL ANTROSTOMY Bilateral 05/15/2019 Dr. Ruffin NASAL/SINUS ENDOSCPY W/TOTAL ETHMOIDECTOMY Bilateral 05/15/2019 Dr. Ruffin OPEN REPAIR OF ROTATOR CUFF ACUTE 04/2005 Dr. Mejias PAST SURGICAL HISTORY OF 10/1997 partial colectomy ([place], [facility]) PAST SURGICAL HISTORY OF 2011 nerves [...] at bedtime as needed. Dr Dupree vit A,C,N-Nkun-Tladbw (PRESERVISION AREDS) 7,160-113-100 voxm-rz-yahq tab Take by mouth. ACETAMINOPHEN 500 MG TAB Take one(1) tablet every four(4) to six(6) hours as needed for pain. No current facility-administered medications for this visit. FAMILY HISTORY Problem Relation Age of Onset Heart Mother rheumatic; 73 Colon Cancer Father dx'd age 50's Coronary Artery Disease Father age 40s, CABG (among the first done at in [place]) Stroke Sister at 58 of ruptured aneurysm [...] improvement. Anitra Mancera APRN.CNP documented in this encounterTr[facility]12-[facility]-2024 Telephone encounter Note * Telephone Encounter - Zulma Ji MA - 11/26/2024 12:06 PM EST Patient notified of provider message and will come to the appointment tomorrow [facility]12-26-2024 Miscellaneous Notes* Telephone Encounter - Zulma Ji MA - 11/26/2024 12:06 PM EST Patient [...] that along with it. documented in this encounterTrinity [facility]12-26-2024 Telephone encounter Note * Telephone Encounter - Anitra Mancera APRN.CNP - 11/26/2024 11:55 AM EST We need to treat the H. pylori. She may be having a little bit of bleeding or it may be the Pepto-Bismol. We need to get the stomach to heal. [facility]12-26-2024 Telephone encounter Note* Telephone Encounter - Lily Soriano LPN - 11/26/2024 11:51 AM EST States that her stools are still black. Asking what she should do for this? She does have appt to follow up with you tomorrow. [facility]12-26-2024 Telephone encounter Note* Telephone Encounter - Anitra [...] needs to take that along with it. [facility]12-23-2024 History of Present illness Narrative* Ed Nichols [...] PATIENT PRESENTS WITH AN IMPLANTABLE OR ATTACHED INDUSTRIAL MECHANIC: No RADIOLOGY DEPARTMENT: General X-ray: Exam(s) Completed: Lower Extremity X- Ray(s): Knee, AP / Lat / Tunne / Merchant Bilateral and Wt. Bearing PERIPHERAL IV DATA: Not applicable SIGNED BY: RT Ania(R) November 23, 2024 12:34 PM documented in this encounterTrinity [facility]12-23-2024 NoteHNO ID: [id number] Author: ED NICHOLS RT(R) Service: ? Author Type: Technologist Type: Progress [...] PATIENT PRESENTS WITH AN IMPLANTABLE OR ATTACHED INDUSTRIAL MECHANIC: No RADIOLOGY DEPARTMENT: General X-ray: Exam(s) Completed: Lower Extremity X-Ray(s): Knee, AP / Lat / Tunne / Merchant Bilateral and Wt. Bearing PERIPHERAL IV DATA: Not applicable SIGNED BY: RT Ania(R) November 23, 2024 12:34 [facility]12-23-2024 Instructions* Patient Instructions* Anitra Mancera APRN.CNP - 11/23/2024 11:50 AM EST 1) Labs today 2) Xray on knees 3) Pantoprazole 40 mg daily 4) Ondasetron 4 mg as needed up to 3 x day 5) Has appt. Saturday documented in this encounterTrinity [facility]12-23-2024 NoteHNO ID: [id number] Author: ANITRA MANCERA APRN.CNP Service: ? Author [...] supraventricular tachycardia (HCC) ablation 01/2002 ( in [facility]), follows with Dr. Moreno (prn only) [...] FLX DX W/COLLJ SPEC WHEN PFRMD 10/14/2018 [facility]-Selam Tabares-Repeat 5 years COLONOSCOPY SCREENING 11/15/2023 R Cebul no repeat due to age CORRECT BUNION,SIMPLE left ECHOCARDIOGRAM 10/18/2017 EGD 1985 bleeding ulcer EPS: SVT/VT ABLATION 2001 [facility] ESOPHAGOGASTRODUODENOSCOPY TRANSORAL DIAGNOSTIC 03/24/2018 EGD HERNIA REPAIR HX 09/2020 ventral hernia repair HOLTER 24 HR 10/2017 LOOP RECORDER IMPLANT 01/23/2018 NASAL/SINUS ENDOSCOPY WITH SPHENOIDOTOMY Bilateral 05/15/2019 Dr. Ruffin NASAL/SINUS ENDOSCPY W/MAXILL ANTROSTOMY Bilateral 05/15/2019 Dr. Ruffin NASAL/SINUS ENDOSCPY W/TOTAL ETHMOIDECTOMY Bilateral 05/15/2019 Dr. Ruffin OPEN REPAIR OF ROTATOR CUFF ACUTE 04/2005 Dr. Mejias PAST SURGICAL HISTORY OF 10/1997 partial colectomy ([place], [facility]) PAST SURGICAL HISTORY OF 2011 nerves [...] at bedtime as needed. Dr Dupree vit A,C,X-Xdwd-Rxshji (PRESERVISION AREDS) 7,160-113-100 zojr-uk-moiu tab Take by mouth. ACETAMINOPHEN 500 MG [...] CABG (among the first done at in [place]) Stroke Sister at 58 of ruptured aneurysm Cancer Brother at 55 (tobacco, agent orange) DVT Sister Social History Tobacco Use Smoking status: Never Smokeless tobacco: Never Vapi (more content not included)...[facility]12-23-2024 History of Present illness Narrative* Anitra Mancera APRN.TARGET WORKER - 11/23/2024 11:35 AM EST This is [...] supraventricular tachycardia (HCC) ablation 01/2002 ( in [facility]), follows with Dr. Moreno (prn only) [...] 1985 bleeding ulcer EPS: SVT/VT ABLATION 2001 [facility] ESOPHAGOGASTRODUODENOSCOPY TRANSORAL DIAGNOSTIC 03/24/2018 EGD HERNIA REPAIR HX 09/2020 ventral hernia repair HOLTER 24 HR 10/2017 LOOP RECORDER IMPLANT 01/23/2018 NASAL/SINUS ENDOSCOPY WITH SPHENOIDOTOMY Bilateral 05/15/2019 Dr. Ruffin NASAL/SINUS ENDOSCPY W/MAXILL ANTROSTOMY Bilateral 05/15/2019 Dr. Ruffin NASAL/SINUS ENDOSCPY W/TOTAL ETHMOIDECTOMY Bilateral 05/15/2019 Dr. Ruffin OPEN REPAIR OF ROTATOR CUFF ACUTE 04/2005 Dr. Mejias PAST SURGICAL HISTORY OF 10/1997 partial colectomy ([place], [facility]) PAST SURGICAL HISTORY OF 2011 nerves [...] mouth at bedtime as needed. Dr Joon Avery,C,M-Jbof-Jbkizh (PRESERVISION AREDS) 7,160-113-100 zcsb-pe-dias tab Take by mouth. ACETAMINOPHEN 500 MG [...] CABG (among the first done at in [place]) Stroke Sister at 58 of ruptured aneurysm [...] improvement. Anitra Mancera APRN.CNP documented in this encounterTrinity [facility]12-16-2024 Telephone encounter Note * Telephone Encounter - Anitra Mancera APRN.CNP - 11/16/2024 11:38 AM EST The following approved medication requests have been transmitted electronically. Requested Prescriptions Pending Prescriptions Disp Refills rOPINIRole (REQUIP) 0.5 mg tablet 135 tablet 1 Sig: Take 1.5 tablets by mouth daily at bedtime. Anitra Mancera APRN.CNP [facility]12-16-2024 Miscellaneous Notes* Telephone Encounter - Anitra Mancera [...] 16, 2024 8:38 AM documented in this encounterTrinity Health [facility]12-16-2024 Telephone encounter Note * Telephone Encounter - [...] Emi Santiago November 16, 2024 8:38 AM [facility]12-12-2024 Telephone encounter Note* Telephone Encounter - Anitra Mancera APRN.CNP - 11/12/2024 7:57 AM EST Order placed for endo Please facilitate [facility] [facility] Miscellaneous Notes* Telephone Encounter - Anitra Mancera [...] She has a doctor she sees in [place] and has an apt today. Pt will keep this apt but with her age she does not want to continue to travel to [place] and wants to go to Dr. Dempsey. Please review and approve referral, then contact pt back and help her get an apt . Skylar Spears LPN [facility]Tr[facility] Telephone encounter Note * Telephone Encounter - [...] She has a doctor she sees in [place] and has an apt today. Pt will keep this apt but with her age she does not want to continue to travel to [place] and wants to go to Dr. Dempsey. Please review and approve referral, then contact pt back and help her get an apt . Skylar Spears LPN [facility]12-10-2024 Telephone encounter Note* Telephone Encounter - Alix Garcia RN - 11/10/2024 3:45 PM EST Called and left a voicemail for the Patient to call back and ask for a nurse to receive the providers message. Alix Garcia RN [facility]12-10-2024 Miscellaneous Notes* Telephone Encounter - Alix Garcia [...] on 11/10/2024 10:26 AM by Provider, External, JOSÉ MANUELC: Mammography documented in this encounterTr[facility]12-10-2024 Telephone encounter Note * Telephone Encounter - Anitra Mancera APRN.CNP - 11/10/2024 2:43 PM EST Please let pt. Know that mammogram was negative. Recheck in 1 year. [facility]12-10-2024 Telephone encounter Note* Telephone Encounter - Grupo Cervantes MA - 11/10/2024 2:19 PM EST Scan on 11/10/2024 10:26 AM by Provider, TABITHA Arce: Mammography [facility]12-05-2024 Telephone encounter Note* Telephone Encounter - Anitra Mancera APRN.CNP - 11/05/2024 3:53 PM EST Sent [facility]12-05-2024 Miscellaneous Notes* Telephone Encounter - Anitra Mancera APRN.CNP - 11/05/2024 3:53 PM EST Sent * Telephone Encounter - Emi Santiago - 11/05/2024 11:41 AM EST Patient is requesting medication that is : Patient last seen: 11-03-24 Future visit scheduled: yes PHARMACY: Timothy documented in this encounterTr[facility]12-05-2024 Telephone encounter Note * Telephone Encounter - Emi Santiago - 11/05/2024 11:41 AM EST Patient is requesting medication that is : Patient last seen: 11-03-24 Future visit scheduled: yes PHARMACY: Sherrell/Nain [facility]12-05-2024 Telephone encounter Note* Telephone Encounter - Zulma Ji MA - 11/05/2024 11:11 AM EST Patient notified of provider message that it is ok to retry Gabapentin, but let her know if she hassimilar reaction, to call back. She is agreeable and verbalizes understanding. Zulma Ji MA November 05, 2024 11:15 AM [facility]12-05-2024 Miscellaneous Notes* Telephone Encounter - Zulma Ji MA - 11/05/2024 11:11 AM EST Patient notified of provider message that it is ok to retry Gabapentin, but let her know if she hassimilar reaction, to call back. She is agreeable and verbalizes understanding. Zulma Ji MA November 05, 2024 11:15 AM * Telephone Encounter - Anitra Mancera APRN.CNP [...] about Gabapentin. Please review and advise, Sharon Paul, RN documented in this encounterTr[facility]12-05-2024 Telephone encounter Note * Telephone Encounter - Zulma Ji MA - 11/05/2024 11:03 AM EST Unsure how to check. I can see order was scanned. I just faxed results to provider. Zulma Ji MA November 05, 2024 11:04 AM [facility]12-05-2024 Miscellaneous Notes* Telephone Encounter - Zulma Ji MA - 11/05/2024 11:03 AM EST Unsure how to check. I can see order was scanned. I just faxed results to provider. Zulma Ji MA November 05, 2024 11:04 AM * Telephone Encounter - rBidgette Shaw - 11/05/2024 10:12 AM EST Patient calling wanting to make sure that the TSH, CMP, and Vitamin D [facility] External order in scanned docs from 11/03/24. documented in this encounterTr[facility]12-05-2024 Telephone encounter Note * Telephone Encounter - Anitra Mancera APRN.TARGET WORKER - 11/05/2024 10:40 AM EST Ok. She has not tolerated gabapentin in past either. She can retry and let me know if working but had the same complaints on gabapentin [facility]12-05-2024 Telephone encounter Note* Telephone Encounter - Bridgette Shaw - 11/05/2024 10:12 AM EST Patient calling wanting to make sure that the TSH, CMP, and Vitamin D lab results have been sent toDr. Angulo. External order in scanned docs from 11/03/24. [facility]12-05-2024 Telephone encounter Note* Telephone Encounter - [...] Please review and advise, Sharon Paul RN [facility]12-03-2024 Instructions* Patient Instructions* Anitra Mancera APRN.CNP - 11/03/2024 3:14 PM EST 1) nortriptyline 50 mg at bedtime 2) labs today documented in this encounterTrinity [facility]12-03-2024 NoteHNO ID: [id number] Author: ANITRA MANCERA APRN.CNP Service: ? Author [...] supraventricular tachycardia (HCC) ablation 01/2002 ( in [place], [facility]), follows with Dr. Moreno (prn only) [...] FLX DX W/COLLJ SPEC WHEN PFRMD 10/14/2018 [facility]-Selam Stuartl-Repeat 5 years COLONOSCOPY SCREENING 11/15/2023 R Cebul no repeat due to age CORRECT BUNION,SIMPLE left ECHOCARDIOGRAM 10/18/2017 EGD 1985 bleeding ulcer EPS: SVT/VT ABLATION 2001 [facility] ESOPHAGOGASTRODUODENOSCOPY TRANSORAL DIAGNOSTIC 03/24/2018 EGD HERNIA REPAIR HX 09/2020 ventral hernia repair HOLTER 24 HR 10/2017 LOOP RECORDER IMPLANT 01/23/2018 NASAL/SINUS ENDOSCOPY WITH SPHENOIDOTOMY Bilateral 05/15/2019 Dr. Ruffin NASAL/SINUS ENDOSCPY W/MAXILL ANTROSTOMY Bilateral 05/15/2019 Dr. Ruffin NASAL/SINUS ENDOSCPY W/TOTAL ETHMOIDECTOMY Bilateral 05/15/2019 Dr. Ruffin OPEN REPAIR OF ROTATOR CUFF ACUTE 04/2005 Dr. Mejias PAST SURGICAL HISTORY OF 10/1997 partial colectomy ([place], [facility]) PAST SURGICAL HISTORY OF 2011 nerves [...] at bedtime as needed. Dr Dupree vit A,C,F-Ihtb-Iiwbvk ([facility]) 7,160-113-100 jzmy-zj-cxxg tab Take by mouth. ACETAMINOPHEN 500 MG TAB Take one(1) tablet every four(4) to six(6) hours as needed for pain. No current facility-administered medications for this visit. FAMILY HISTORY Problem Relation Age of Onset Heart Mother rheumatic; 73 Colon Cancer Father dx'd age 50's Coronary Artery Disease Father age 40s, CABG (among the first done at in [place]) Stroke Sister at 58 of ruptured aneurysm [...] Constitutional: Appearance: Normal appe (more content not included)...[facility] 11-03-2024 History of Present illness Narrative* Anitra Mancera APRN.TARGET WORKER - 11/03/2024 2:50 PM EST This is [...] supraventricular tachycardia (HCC) ablation 01/2002 ( in [place], [facility]), follows with Dr. Moreno (prn only) [...] FLX DX W/COLLJ SPEC WHEN [facility]FRMD [facility] 5 years COLONOSCOPY SCREENING 11/15/2023 R Cebul no repeat due to age CORRECT BUNION,SIMPLE left ECHOCARDIOGRAM 10/18/2017 EGD 1985 bleeding ulcer EPS: SVT/VT ABLATION 2001 [facility] ESOPHAGOGASTRODUODENOSCOPY TRANSORAL DIAGNOSTIC 03/24/2018 EGD HERNIA REPAIR HX 09/2020 ventral hernia repair HOLTER 24 HR 10/2017 LOOP RECORDER IMPLANT 01/23/2018 NASAL/SINUS ENDOSCOPY WITH SPHENOIDOTOMY Bilateral 05/15/2019 Dr. Ruffin NASAL/SINUS ENDOSCPY W/MAXILL ANTROSTOMY Bilateral 05/15/2019 Dr. Ruffin NASAL/SINUS ENDOSCPY W/TOTAL ETHMOIDECTOMY Bilateral 05/15/2019 Dr. Ruffin OPEN REPAIR OF ROTATOR CUFF ACUTE 04/2005 Dr. Mejias PAST SURGICAL HISTORY OF 10/1997 partial colectomy ([place], [facility]) PAST SURGICAL HISTORY OF 2011 nerves [...] at bedtime as needed. Dr Dupree vit A,C,J-Gmlb-Ykusod ([facility]) 7,160-113-100 mrut-ts-objs tab Take by mouth. ACETAMINOPHEN 500 MG TAB Take one(1) tablet every four(4) to six(6) hours as needed for pain. No current facility-administered medications for this visit. FAMILY HISTORY Problem Relation Age of Onset Heart Mother rheumatic; 73 Colon Cancer Father dx'd age 50's Coronary Artery Disease Father age 40s, CABG (among the first done at in [place]) Stroke Sister at 58 of ruptured aneurysm [...] as needed for worsening/no improvement. Anitra Mancera APRN.TARGET WORKER documented in this encounterTr[facility]12-02-2024 Telephone encounter Note * Telephone Encounter - Kevin Vang RN - 11/02/2024 4:48 PM EST Patient reports she's had a sore burning mouth since July. 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 Reports she's [...] which she is allergic to. 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 States she couldn't even see the spot, and the risk tech removed a spot the size of a dime. Patient scheduled appt with Lucero Mancera for tomorrow to discuss next steps. [facility]12-02-2024 Miscellaneous Notes* Telephone Encounter - Kevin Vang RN - 11/02/2024 4:48 PM EST Patient reports she's had a sore burning mouth since July. 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 Reports she's [...] which she is allergic to. 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 States she couldn't even see the spot, and the risk tech removed a spot the size of a dime. Patient scheduled appt with LilaYuly Shaheed for tomorrow to discuss next steps. documented in this encounterTr[facility]10-17-2024 Telephone encounter Note * Telephone Encounter - Alix Garcia RN - 09/17/2024 8:28 AM EDT Pt called and is notified of providers message and instructions. Pt voices understanding and statesshe is going to stop the Gabapentin. Looks like it was already removed from her medication list. Alix Garcia RN [facility]10-17-2024 Miscellaneous Notes* Telephone Encounter - Alix Garcia [...] 3 weeks. Please advise. documented in this encounterTrinity [facility]10-17-2024 Telephone encounter Note * Telephone Encounter - Anitra Mancera APRN.CNP - 09/17/2024 7:57 AM EDT Yes. Go ahead and stop. We can't reduce it if it hasn't helped. Sorry. [facility]10-16-2024 Telephone encounter Note* Telephone Encounter - Soha Azevedo LPN - 09/16/2024 9:33 AM EDT Pt. is taking Gabapentin for burning mouth syndrome. She feels dizziness and palpitations at times.Should she continue to take this. Not really helping with pain. Seeing a specialist in 3 weeks. Please advise. [facility] Work Phone: [phone] [phone] Telephone encounter Note* Telephone Encounter - Jeyson Snowden MA - 09/10/2024 9:22 AM EDT Order faxed to [facility] [phone] Patient notified via voicemail Jeyson Snowden MA [facility]10-10-2024 Miscellaneous Notes* Telephone Encounter - Jeyson Snowden MA - 09/10/2024 9:22 AM EDT Order faxed to [facility] [phone] Patient notified via voicemail Jeyson Snowden MA * Telephone Encounter - Anitra Mancera APRN.CNP - 09/10/2024 7:53 AM EDT Mammogram ordered * Telephone Encounter - Lily Soriano LPN - 09/09/2024 3:06 PM EDT Please file so we can route to [facility]. * Telephone Encounter - Jenn Nelson - 09/09/2024 2:36 PM EDT Pt called states she gets her Mammograms done at the [facility]. She would like theorder sent over there. documented in this encounterTr[facility]10-10-2024 Telephone encounter Note * Telephone Encounter - Anitra Mancera APRN.CNP - 09/10/2024 7:53 AM EDT Mammogram ordered [facility]10-09-2024 Telephone encounter Note* Telephone Encounter - Lily Soriano LPN - 09/09/2024 3:06 PM EDT Please file so we can route to [facility]. [facility]10-09-2024 Telephone encounter Note* Telephone Encounter - Jenn Nelson - 09/09/2024 2:36 PM EDT Pt called states she gets her Mammograms done at the [facility]. She would like theorder sent over there. [facility] Work Phone: [phone] 133-542709-20-2024 Instructions* Patient Instructions* Anitra Mancera APRN.CNP - 08/21/2024 9:43 AM EDT 1) Gabapentin 100 mg 3 x day- send me a message if we need to increase dose 2) Lidocaine viscus 1 Tbs as needed to numb mouth 3) B complex that contains B6 4) Keep appt. In December documented in this encounterTrinity Health [facility]09-20-2024 NoteHNO ID: [id number] Author: ANITRA MANCERA APRN.RUSTY Service: ? Author [...] tachycardia (HCC) ablation 01/2002 ( in [place], [facility]), follows with Dr. Moreno (prn only) [...] FLX DX W/COLLJ SPEC WHEN PFRMD 10/14/2018 [facility]-R. Cebul-Repeat 5 years COLONOSCOPY SCREENING 11/15/2023 R Cebul no repeat due to age CORRECT BUNION,SIMPLE left ECHOCARDIOGRAM 10/18/2017 EGD 1985 bleeding ulcer EPS: SVT/VT ABLATION 2001 [facility] ESOPHAGOGASTRODUODENOSCOPY TRANSORAL DIAGNOSTIC 03/24/2018 EGD HERNIA REPAIR HX 09/2020 ventral hernia repair HOLTER 24 HR 10/2017 LOOP RECORDER IMPLANT 01/23/2018 NASAL/SINUS ENDOSCOPY WITH SPHENOIDOTOMY Bilateral 05/15/2019 Dr. Ruffin NASAL/SINUS ENDOSCPY W/MAXILL ANTROSTOMY Bilateral 05/15/2019 Dr. Ruffin NASAL/SINUS ENDOSCPY W/TOTAL ETHMOIDECTOMY Bilateral 05/15/2019 Dr. Ruffin OPEN REPAIR OF ROTATOR CUFF ACUTE 04/2005 Dr. Mejias PAST SURGICAL HISTORY OF 10/1997 partial colectomy ([place], [facility]) PAST SURGICAL HISTORY OF 2011 nerves [...] at bedtime as needed. Dr Dupree vit A,C,D-Aogn-Uroeup ([facility]) 7,160-113-100 wvdh-mo-ahsk tab Take by mouth. ACETAMINOPHEN 500 MG [...] CABG (among the first done at in [place]) Stroke Sister at 58 of ruptured aneurysm Cancer Brother at 55 (tobacco, agent orange) DVT Sister Social History Tobacco Use Smoking status: Never Smokeless tobacco: Never Vaping Use Vaping status: Never Used Substance Use Topics Alcohol use: No Drug use: No EXAM: BP 110/68 Pulse 68 Resp 16 Wt 58.2 kg (128 lb 4.9 oz) BMI (more content not included)...[facility]09-20-2024 History of Present illness Narrative* Anitra Mancera APRN.TARGET WORKER - 08/21/2024 9:28 AM EDT This is [...] supraventricular tachycardia (HCC) ablation 01/2002 ( in [place], [facility]), follows with Dr. Moreno (prn only) [...] FLX DX W/COLLJ SPEC WHEN PFRMD 10/14/2018 [facility]-R. Cebul-Repeat 5 years COLONOSCOPY SCREENING 11/15/2023 R Cebul no repeat due to age CORRECT BUNION,SIMPLE left ECHOCARDIOGRAM 10/18/2017 EGD 1985 bleeding ulcer EPS: SVT/VT ABLATION 2001 [facility] ESOPHAGOGASTRODUODENOSCOPY TRANSORAL DIAGNOSTIC 03/24/2018 EGD HERNIA REPAIR HX 09/2020 ventral hernia repair HOLTER 24 HR 10/2017 LOOP RECORDER IMPLANT 01/23/2018 NASAL/SINUS ENDOSCOPY WITH SPHENOIDOTOMY Bilateral 05/15/2019 Dr. Ruffin NASAL/SINUS ENDOSCPY W/MAXILL ANTROSTOMY Bilateral 05/15/2019 Dr. Ruffin NASAL/SINUS ENDOSCPY W/TOTAL ETHMOIDECTOMY Bilateral 05/15/2019 Dr. Ruffin OPEN REPAIR OF ROTATOR CUFF ACUTE 04/2005 Dr. Mejias PAST SURGICAL HISTORY OF 10/1997 partial colectomy ([place], [facility]) PAST SURGICAL HISTORY OF 2011 nerves [...] at bedtime as needed. Dr Dupree vit A,C,H-Lfqm-Qkmvpn ([facility]) 7,160-113-100 tica-ct-iqkj tab Take by mouth. ACETAMINOPHEN 500 MG [...] CABG (among the first done at in [place]) Stroke Sister at 58 of ruptured aneurysm [...] improvement. Anitra Mancera APRN.CNP documented in this encounterTrinity [facility]09-11-2024 NoteHNO ID: [id number] Author: LINDSEY STAPLETON PA-C Service: ? Author Type: Physician Autism Motor Specialist Type: Progress Notes Filed: 08/12/2024 14:06 Note [...] NO ACUTE ABDOMINAL PATHOLOGY VISUALIZED Colon 11/2023 [facility] Impression: - Hemorrhoids found on perianal [...] at bedtime as needed. Dr Dupree vit A,C,D-Rrwo-Gosvgs ([facility]) 7,160-113-100 vssb-ib-nuwz tab Take by mouth. ACETAMINOPHEN 500 MG [...] tachycardia (HCC) Comment: ablation 01/2002 ( in [place], [facility]), follows with (more content not included)...[facility]09-11-2024 History of Present illness Narrative* Lindsey Stapleton [...] advised to change to Ibsrela. Pt contacted pfftcu56/2024 and reported she didn't want to try [...] at bedtime as needed. Dr Dupree vit A,C,L-Vxqw-Ixzbzn ([facility]) 7,160-113-100 ueeu-fz-egbq tab Take by mouth. ACETAMINOPHEN 500 MG [...] supraventricular tachycardia (HCC) Comment: ablation 01/2002 (Dr. ruiz [place], [facility]), follows with Dr. Moreno (prn only) [...] FLX DX W/COLLJ SPEC WHEN PFRMD [facility] 11/15/2023: COLONOSCOPY SCREENING Comment: Alvin Tabares no repeat due to age No date: CORRECT BUNION,SIMPLE Comment: left 10/18/2017: ECHOCARDIOGRAM 1985: EGD Comment: bleeding ulcer 2001: EPS: SVT/VT ABLATION Comment: [facility] 03/24/2018: ESOPHAGOGASTRODUODENOSCOPY TRANSORAL DIAGNOSTIC Comment: EGD [...] SURGICAL HISTORY OF Comment: partial colectomy ([place], [facility]) 2011: PAST SURGICAL HISTORY OF Comment: nerves cut in my back 04/24/2010: STEREO LOC FOR CORE BRST BX LT Comment: left 12/17/2017: STRESS TEST No date: TONSILLECTOMY PRIMARY/SECONDARY <AGE 12 FAMILY HISTORY Problem Relation Age of Onset Heart Mother rheumatic; 73 Colon Cancer Father dx'd age 50's Coronary Artery Disease Father age 40s, CABG (among the first done at in [place]) Stroke Sister at 58 of ruptured aneurysm [...] hard for her to come to [place] due to location from home so will follow up with PCP to obtain order Follow up in office 6 months/PRN. I spent a total of 15 minutes on the date of the service which included preparing to see the patient, culx-zj-qyiv patient care, completing clinical documentation, obtaining and/or reviewing separately obtained history, performing a medically appropriate examination, counseling and educating the pat ient/family/caregiver, ordering medications, tests, or procedures, communicating with other HCPs (not separately reported), independently interpreting results (not separately reported), communicatingresults to the patient/family/caregiver, and care coordination (not separately reported). Lindsey Stapleton PA-C August 12, 2024 1:55 PM documented in this encounterTrinity [facility]08-07-2024 NoteHNO ID: [id number] Author: SHOSHANA CHAMBERS APRN.CNM Service: ? Author Type: Bond Clerk Type: Progress Notes Filed: 07/17/2024 08:29 Note [...] L5 SAB0 IAB0 Ectopic0 Multiple0 Live Births0 Weight Analyst History LMP: Postmenopausal Age at Menarche: Age at First : Age at Menopause: Weight Analyst History Comments: Sexual Activity: Not Asked; No [...] tachycardia (HCC) Comment: ablation 01/2002 ( in [place], [facility]), follows with Dr. Moreno (prn only) [...] FLX DX W/COLLJ SPEC WHEN PFRMD Comment: [facility]-Selam Tabares-Repeat 5 years 11/15/2023: COLONOSCOPY SCREENING Comment: R Cebul no repeat due to age No date: CORRECT BUNION,SIMPLE Comment: left 10/18/2017: ECHOCARDIOGRAM 1985: EGD Comment: bleeding ulcer 2002: EPS: SVT/VT ABLATION Comment: [facility] 03/24/2018: ESOPHAGOGASTRODUODENOSCOPY TRANSORAL DIAGNOSTIC Comment: EGD [...] SURGICAL HISTORY OF Comment: partial colectomy ([place], [facility]) 2011: PAST SURGICAL HISTORY OF Comment: nerves cut in my back 04/24/2010: STEREO LOC FOR CORE BRST BX LT Comment: left 12/17/2017: STRESS TEST No date: TONSILLECTOMY PRIMARY/SECONDARY FAMILY HISTORY Problem Relation Age of Onset Heart Mother rheumatic; 73 Colon Cancer Father dx'd age 50's Coronary Artery Disease Father age 40s, CABG (among the first done at in [place]) Stroke Sister at 58 of ruptured aneurysm [...] at bedtime as needed. Dr Dupree vit A,C,J-Smum-Vovbhi ([facility]) 7,160-113-100 kmni-pw-uugm tab Take by mouth. ACETAMINOPHEN 500 MG TAB Take one(1 (more content not included)...[facility]08-07-2024 History of Present illness Narrative* Shoshana Chambers APRN.AILYN - 07/08/2024 1:54 PM EDT Sachi Grace [...] L5 SAB0 IAB0 Ectopic0 Multiple0 Live Births0 Weight Analyst History LMP: Postmenopausal Age at Menarche: Age at First : Age at Menopause: Weight Analyst History Comments: Sexual Activity: Not Asked; No [...] (HCC) Comment: ablation 01/2002 (Dr. joseph [place], [facility]), follows with Dr. Moreno (prn only) [...] FLX DX W/COLLJ SPEC WHEN [facility]FRMD [facility] 11/15/2023: COLONOSCOPY SCREENING Comment: R Cebul no repeat due to age No date: CORRECT BUNION,SIMPLE Comment: left 10/18/2017: ECHOCARDIOGRAM 1985: EGD Comment: bleeding ulcer 2001: EPS: SVT/VT ABLATION Comment: [facility] 03/24/2018: ESOPHAGOGASTRODUODENOSCOPY TRANSORAL DIAGNOSTIC Comment: EGD [...] SURGICAL HISTORY OF Comment: partial colectomy ([place], [facility]) 2012: PAST SURGICAL HISTORY OF Comment: nerves cut in my back 04/24/2010: STEREO LOC FOR CORE BRST BX LT Comment: left 12/17/2017: STRESS TEST No date: TONSILLECTOMY PRIMARY/SECONDARY <AGE 12 FAMILY HISTORY Problem Relation Age of Onset Heart Mother rheumatic; 73 Colon Cancer Father dx'd age 50's Coronary Artery Disease Father age 40s, CABG (among the first done at in [place]) Stroke Sister at 58 of ruptured aneurysm [...] at bedtime as needed. Dr Dupree vit A,C,H-Swyd-Brcdiz ([facility]) 7,160-113-100 tgxg-kr-aslg tab Take by mouth. ACETAMINOPHEN 500 MG [...] plan. Shoshana Chambers APRN.CNM documented in this encounterTrinity Health [facility]07-26-2024 History of Present illness Narrative* Zulma Packer RT(R) - 06/26/2024 9:20 AM EDT Radiology [...] PATIENT PRESENTS WITH AN IMPLANTABLE OR ATTACHED INDUSTRIAL MECHANIC: No ALLERGIES: Reviewed and unchanged CONTRAST ALLERGY: NO. EXAM: MRI - CONTRAST TYPE: GROUP II PERIPHERAL IV DATA: Ambulatory: A peripheral IV was started in the Left antecubital site with a Angio cath: 22 gauge. RADIOLOGY DEPARTMENT: MR; Exam(s) Completed: Body: Pancreas/Biliary SIGNATURE: RT Salvador(R) PATIENT NAME: Sachi Grace DATE: June 26, 2024 TIME: 9:21 AM documented in this encounterTrinity Health [facility]07-18-2024 Telephone encounter Note * Telephone Encounter - Zulma Ji MA - 06/18/2024 5:16 PM EDT Pt has 50 mcg tablet dispensed by the [facility], so that would make dosage 75 mcg 6 days a week and 50 mcg on Saturday. Med chart updated [facility]07-18-2024 Miscellaneous Notes* Telephone Encounter - Zulma Ji MA - 06/18/2024 5:16 PM EDT Pt has 50 mcg tablet dispensed by the [facility], so that would make dosage 75 mcg 6 days a week and 50 mcg on Saturday. Med chart updated * Telephone Encounter - Halima Diaz RN - 06/18/2024 4:22 PM EDT Patient returned call and given message below. She reports her Endo specialist in [place] contacted her yesterday and made changes to [...] drawn the same day. documented in this encounterTrinity Health [facility]07-18-2024 Telephone encounter Note * Telephone Encounter - Halima Diaz RN - 06/18/2024 4:22 PM EDT Patient returned call and given message below. She reports her Endo specialist in [place] contacted her yesterday and made changes to her thyroid medication and she plans to follow that. She states she is now taking one and a half pills 6 days per week and one pill on Sundays onlyMs. Halima Diaz RN [facility]07-18-2024 Telephone encounter Note* Telephone Encounter - Yarelis Oliva MA - 06/18/2024 1:48 PM EDT Message left for pt to call back for results. Yarelis Oliva MA [facility]07-18-2024 Telephone encounter Note* Telephone Encounter - Anitra Mancera APRN.CNP - 06/18/2024 12:43 PM EDT Please let patient know that she is still getting a little too much levothyroxine. Take 2 tablets every only with 1 tablet on all other days of the week. We will recheck her TSH when she sees gastroenterology in August. She may have it drawn the same day. [facility]07-16-2024 Telephone encounter Note* Telephone Encounter - Zulma Ji MA - 06/16/2024 4:12 PM EDT Patient was made aware of the results. Patient verbalizes understanding. Zulma Ji Ma [facility]07-16-2024 Miscellaneous Notes* Telephone Encounter - Zulma Ji MA - 06/16/2024 4:12 PM EDT Patient was made aware of the results. Patient verbalizes understanding. Zulma Ji Ma * Telephone Encounter - Zulma Ji MA - 06/16/2024 2:45 PM EDT ----- Message from Anitra Mancera APRN.CNP sent at 06/16/2024 2:35 PM EDT ----- Please let patient know that right ovary is enlarged but no mass noted. I see that she has an appointment with gynecology on the seventh. Please keep that and have them weigh in on it. documented in this encounterTr[facility] Telephone encounter Note * Telephone Encounter - Zulma Ji MA - 06/16/2024 2:45 PM EDT ----- Message from Anitra Mancera APRN.CNP sent at 06/16/2024 2:35 PM EDT ----- Please let patient know that right ovary is enlarged but no mass noted. I see that she has an appointment with gynecology on the seventh. Please keep that and have them weigh in on it. [facility]07-16-2024 Progress note* Result Encounter Note - Anitra Mancera APRN.CNP - 06/16/2024 2:35 PM EDT Please let patient know that right ovary is enlarged but no mass noted. I see that she has an appointment with gynecology on the seventh. Please keep that and have them weigh in on it. [facility]07-16-2024 Miscellaneous Notes* Result Encounter Note - Anitra Mancera APRN.CNP - 06/16/2024 2:35 PM EDT Please let patient know that right ovary is enlarged but no mass noted. I see that she has an appointment with gynecology on the seventh. Please keep that and have them weigh in on it. documented in this encounterTr[facility]07-[facility]-2024 Instructions* Patient Instructions* Anitra Mancera APRN.CNP - 06/16/2024 9:47 AM EDT 1) Consult AMPHIBIAN CREWMEMBER 2) Ordered vaginal ultrasound 3) Labs today 4) Follow up in 6 months documented in this encounterTr[facility]24 History of Present illness Narrative* Anitra Mancera APRN.CNP - 06/16/2024 9:24 AM EDT This is [...] supraventricular tachycardia (HCC) ablation 01/2002 ( in [place], [facility]), follows with Dr. Moreno (prn only) [...] FLX DX W/COLLJ SPEC WHEN PFRMD 10/14/2018 [facility]-R. Cebul-Repeat 5 years COLONOSCOPY SCREENING 11/15/2023 R Cebul no repeat due to age CORRECT BUNION,SIMPLE left ECHOCARDIOGRAM 10/18/2017 EGD 1985 bleeding ulcer EPS: SVT/VT ABLATION 2001 [facility] ESOPHAGOGASTRODUODENOSCOPY TRANSORAL DIAGNOSTIC 03/24/2018 EGD HERNIA REPAIR HX 09/2020 ventral hernia repair HOLTER 24 HR 10/2017 LOOP RECORDER IMPLANT 01/23/2018 NASAL/SINUS ENDOSCOPY WITH SPHENOIDOTOMY Bilateral 05/15/2019 Dr. Ruffin NASAL/SINUS ENDOSCPY W/MAXILL ANTROSTOMY Bilateral 05/15/2019 Dr. Ruffin NASAL/SINUS ENDOSCPY W/TOTAL ETHMOIDECTOMY Bilateral 05/15/2019 Dr. Ruffin OPEN REPAIR OF ROTATOR CUFF ACUTE 04/2005 Dr. Mejias PAST SURGICAL HISTORY OF 10/1997 partial colectomy ([place], [facility]) PAST SURGICAL HISTORY OF 2011 nerves [...] at bedtime as needed. Dr Joon nolasco A,C,P-Ifoz-Xalvmw ([facility]) 7,160-113-100 syvh-cc-srsd tab Take by mouth. ACETAMINOPHEN 500 MG [...] CABG (among the first done at in [place]) Stroke Sister at 58 of ruptured aneurysm [...] - Get ultrasound of pelvis - Consult AMPHIBIAN CREWMEMBER 2. Hypothyroidism, acquired - ICD9: 244.9, ICD10: [...] as needed for worsening/no improvement. Anitra Mancera APRN.TARGET WORKER documented in this encounterTr[facility]07-[facility]-2024 Note* Addendum Note - Lindsey Stapleton PA-C - 06/05/2024 11:50 AM EDTAddended by: LINDSEY STAPLETON on: 06/05/2024 11:50 AM Modules accepted: Orders [facility]07-05-2024 Telephone encounter Note* Telephone Encounter - Lindsey Stapleton PA-C - 06/05/2024 11:50 AM EDT Script sent to pharmacy Lindsey Stapleton PA-C [facility]07-05-2024 Miscellaneous Notes* Addendum Note - Lindsey Stapleton [...] about CT results. She will contact the Radio Tester prior to having MRI done. She also states that she usually has 2 0.5 tabs of Xanax prior to MRI's. [facility] [place] Thank you documented in this encounterTr[facility]07-[facility]-2024 Telephone encounter Note * Telephone Encounter - Javid Mcghee MA - 06/05/2024 11:41 AM EDT Spoke with patient about CT results. She will contact the Radio Tester prior to having MRI done. She also states that she usually has 2 0.5 tabs of Xanax prior to MRI's. This can be srnt to the [facility] in [place]. Thank you [facility]06-17-2024 Telephone encounter Note* Telephone Encounter - Jenn [...] Jenn Morales May 18, 2024 9:17 AM [facility]06-17-2024 Miscellaneous Notes* Telephone Encounter - Jenn Tsai [...] Jenn Morales May 18, 2024 9:17 AM documented in this encounterTrinity [facility]05-30-2024 Telephone encounter Note * Telephone Encounter - Javid Mcghee MA - 04/30/2024 9:22 AM EDT PWA gave us a call stating that patient is approved for patient assistance. After speaking withthe patient she does not want to start the new medication at this time. A new script will have to be sent to PWA if she wants to start this medication later on. [facility]05-30-2024 Miscellaneous Notes* Telephone Encounter - Javid Mcghee MA - 04/30/2024 9:22 AM EDT PWA gave us a call stating that patient is approved for patient assistance. After speaking withthe patient she does not want to start the new medication at this time. A new script will have to be sent to PWA if she wants to start this medication later on. documented in this encounterTr[facility]05-29-2024 Telephone encounter Note * Telephone Encounter - Marcia Sue RN - 04/29/2024 2:46 PM EDT Stacy with Dr. Boateng (endocrinology) calls to request copy of TSH drawn on 04/23/2024. Faxed to [phone] per request. Marcia Sue RN [facility]05-29-2024 Miscellaneous Notes* Telephone Encounter - Marcia Sue RN - 04/29/2024 2:46 PM EDT Stacy with Dr. Boateng (endocrinology) calls to request copy of TSH drawn on 04/23/2024. Faxed to [phone] per request. Marcia Sue RN documented in this encounterTrinity [facility]05-28-2024 Telephone encounter Note * Telephone Encounter - Javid Mcghee MA - 04/28/2024 1:36 PM EDT Tried to call patient to see if she had questions about her CT results. Unable to LVM due to it notbeing set up. [facility]05-28-2024 Miscellaneous Notes* Telephone Encounter - Javid Mcghee MA - 04/28/2024 1:36 PM EDT Tried to call patient to see if she had questions about her CT results. Unable to LVM due to it notbeing set up. documented in this encounterTr[facility]05-23-2024 History of Present illness Narrative* Reef Mandy Figueroa RT(R) - 04/23/2024 10:00 AM EDT Radiology [...] PATIENT PRESENTS WITH AN IMPLANTABLE OR ATTACHED INDUSTRIAL MECHANIC: No ALLERGIES: Reviewed and unchanged CONTRAST ALLERGY: [...] 2024 TIME: 3:12 PM documented in this encounterTrinity [facility]05-21-2024 History of Present illness Narrative* Kevin Andersen PA-C - 04/21/2024 2:00 PM EDT 88 year old female with c/o 4 week follow up Saw GI Lindsey Stapleton PA-C Started on Go-lytely Scheduled CT [...] xrays donesaid she needed TKR [facility] to [facility] Dr. Barajas, told her didn't need surgery. No chest pain, SOB, dyspnea, orthopnea, racing or irregular heartbeats, palpitations, syncopal sx, leg swelling, nausea, diaphoresis or heartburn. HISTORIES FAMILY HISTORY Problem Relation Age of Onset Heart Mother rheumatic; 73 Colon Cancer Father dx'd age 50's Coronary Artery Disease Father age 40s, CABG (among the first done at in [place]) Stroke Sister at 58 of ruptured aneurysm [...] supraventricular tachycardia (HCC) ablation 01/2002 ( in [place], [facility]), follows with Dr. Moreno (prn only) [...] FLX DX W/COLLJ SPEC WHEN PFRMD 10/14/2018 [facility]-Selam Tabares-Repeat 5 years COLONOSCOPY SCREENING 11/15/2023 R Cebul no repeat due to age CORRECT BUNION,SIMPLE left ECHOCARDIOGRAM 10/18/2017 EGD 1985 bleeding ulcer EPS: SVT/VT ABLATION 2001 [facility] ESOPHAGOGASTRODUODENOSCOPY TRANSORAL DIAGNOSTIC 03/24/2018 EGD HERNIA REPAIR HX 09/2020 ventral hernia repair HOLTER 24 HR 10/2017 LOOP RECORDER IMPLANT 01/23/2018 NASAL/SINUS ENDOSCOPY WITH SPHENOIDOTOMY Bilateral 05/15/2019 Dr. Ruffin NASAL/SINUS ENDOSCPY W/MAXILL ANTROSTOMY Bilateral 05/15/2019 Dr. Ruffin NASAL/SINUS ENDOSCPY W/TOTAL ETHMOIDECTOMY Bilateral 05/15/2019 Dr. Ruffin OPEN REPAIR OF ROTATOR CUFF ACUTE 04/2005 Dr. Mejias PAST SURGICAL HISTORY OF 10/1997 partial colectomy ([place], [facility]) PAST SURGICAL HISTORY OF 2011 nerves [...] at bedtime as needed. Dr Dupree vit A,C,N-Lqug-Xrvlbw ([facility]) 7,160-113-100 oruv-eb-mjjq tab Take by mouth. 0 ACETAMINOPHEN 500 MG TAB Take one(1) tablet every four(4) to six(6) hours as needed for pain. 0 No current facility-administered medications for this visit. Spirometry Never done Behavioral Health Screening Never done Covid-19 Vaccine(2022- season) due on 04/12/2024 EXAM: BP 110/65 [...] data. Kevin Andersen PA-C documented in this encounterTr[facility]05-[facility]-2024 Telephone encounter Note * Telephone Encounter - [...] try limit GI upset. Lindsey Stapleton PA-C [facility]05-03-2024 Miscellaneous Notes* Telephone Encounter - Lindsey Stapleton [...] Please advise thank you. documented in this encounterTrinity [facility]05-03-2024 Telephone encounter Note * Telephone Encounter - Javid Mcghee MA - 04/03/2024 8:34 AM EDT Patient called in because she was not sure of how to take the Golytely prep. She wants to know how much and how often she is supposed to take the prep. She is ok with mychart response. Please advise thank you. [facility]05-02-2024 Instructions* Patient Instructions* Lindsey Stapleton PA-C - [...] If you do not have a responsible driver engineer (family member or friend) with you to [...] your exam. 2 11/2019 documented in this encounterTrinity [facility]05-02-2024 History of Present illness Narrative* Lindsey Stapleton [...] NO ACUTE ABDOMINAL PATHOLOGY VISUALIZED Colon 11/2023 [facility] Impression: - Hemorrhoids found on perianal [...] Lymph 1.00 - 4.00 k/uL 0.99 (L) [place]% % 14.7 Abs [place] <0.87 k/uL 0.70 E[place]% % 9.5 Abs [...] supraventricular tachycardia (HCC) ablation 01/2002 ( in [place], [facility]), follows with Dr. Moreno (prn only) [...] FLX DX W/COLLJ SPEC WHEN PFRMD 10/14/2018 [facility]-RYuly Cebul-Repeat 5 years COLONOSCOPY SCREENING 11/15/2023 R Cebul no repeat due to age CORRECT BUNION,SIMPLE left ECHOCARDIOGRAM 10/18/2017 EGD 1985 bleeding ulcer EPS: SVT/VT ABLATION 2001 [facility] ESOPHAGOGASTRODUODENOSCOPY TRANSORAL DIAGNOSTIC 03/24/2018 EGD HERNIA REPAIR HX 09/2020 ventral hernia repair HOLTER 24 HR 10/2017 LOOP RECORDER IMPLANT 01/23/2018 NASAL/SINUS ENDOSCOPY WITH SPHENOIDOTOMY Bilateral 05/15/2019 Dr. Ruffin NASAL/SINUS ENDOSCPY W/MAXILL ANTROSTOMY Bilateral 05/15/2019 Dr. Ruffin NASAL/SINUS ENDOSCPY W/TOTAL ETHMOIDECTOMY Bilateral 05/15/2019 Dr. Ruffin OPEN REPAIR OF ROTATOR CUFF ACUTE 04/2005 Dr. Mejias PAST SURGICAL HISTORY OF 10/1997 partial colectomy ([place], [facility]) PAST SURGICAL HISTORY OF 2011 nerves [...] at bedtime as needed. Dr Dupree vit A,C,L-Bycb-Bhqbih ([facility]) 7,160-113-100 glgj-dy-rvfd tab Take by mouth. ACETAMINOPHEN 500 MG TAB Take one(1) tablet every four(4) to six(6) hours as needed for pain. FAMILY HISTORY Problem Relation Age of Onset Heart Mother rheumatic; 73 Colon Cancer Father dx'd age 50's Coronary Artery Disease Father age 40s, CABG (among the first done at in [place]) Stroke Sister at 58 of ruptured aneurysm [...] which included preparing to see the patient, [id number] patient care, completing clinical documentation, obtaining and/or reviewing separately obtained history, performing a medically appropriate examination, counseling and educating the pat ient/family/caregiver, ordering medications, tests, or procedures, communicating with other HCPs (not separately reported), independently interpreting results (not separately reported), communicatingresults to the patient/family/caregiver, and care coordination (not separately reported). Lindsey Stapleton PA-C April 02, 2024 10:03 AM documented in this encounterTr[facility]04-[facility]-2024 History of Present illness Narrative* Kaleigh Lamas, RT(R) - 03/24/2024 12:10 PM EDT Radiology [...] PATIENT PRESENTS WITH AN IMPLANTABLE OR ATTACHED INDUSTRIAL MECHANIC: No RADIOLOGY DEPARTMENT: General X-ray: Exam(s) Completed: Abdomen X-Ray: Abdomen PERIPHERAL IV DATA: Not applicable SIGNED BY: RT Puja(R) March 24, 2024 12:04 PM documented in this encounterTr[facility]04-[facility]-2024 History of Present illness Narrative* Kevin Andersen PA-C - 03/24/2024 11:00 AM EDT 88 year old female with c/o here for follow-up Bowels are moving. LBM last Saturday with dulcolax suppository. Has no feeling she needs to have a bowel movement. States no BM in months Had diarrhea after taking 2 dulcalox tabs Recent events: 01/10/2024 pharmacologic myocardial perfusion stress test [facility] for palpitations: EKG demonstrated normal sinus [...] beats) Nonsustained SVT/PACs. 02/07/2024 visit with Anitra Angelmariia OWEN, from records: Complaining of nausea and constipation despite use of MiraLAX: Switch to lactulose and added Zofran Heart racing in the morning when she wakes up: Holter monitor demonstrated SVT in the past, offeredcardiology consult Allergic rhinitis: Recommended use of home Flonase 02/19/2024 presented to [facility] ER with complaint of generalized illness with [...] f/u consult with Argelia Stearns CNP in [place] who she apparently sees routinely from notes: [...] CABG (among the first done at in [place]) Stroke Sister at 58 of ruptured aneurysm [...] supraventricular tachycardia (HCC) ablation 01/2002 ( in [place], [facility]), follows with Dr. Moreno (prn only) [...] FLX DX W/COLLJ SPEC WHEN PFRMD 10/14/2018 [facility]. Cebul-Repeat 5 years COLONOSCOPY SCREENING 11/15/2023 R Cebul no repeat due to age CORRECT BUNION,SIMPLE left ECHOCARDIOGRAM 10/18/2017 EGD 1985 bleeding ulcer EPS: SVT/VT ABLATION 2001 [facility] ESOPHAGOGASTRODUODENOSCOPY TRANSORAL DIAGNOSTIC 03/24/2018 EGD HERNIA REPAIR HX 09/2020 ventral hernia repair HOLTER 24 HR 10/2017 LOOP RECORDER IMPLANT 01/23/2018 NASAL/SINUS ENDOSCOPY WITH SPHENOIDOTOMY Bilateral 05/15/2019 Dr. Ruffin NASAL/SINUS ENDOSCPY W/MAXILL ANTROSTOMY Bilateral 05/15/2019 Dr. Ruffin NASAL/SINUS ENDOSCPY W/TOTAL ETHMOIDECTOMY Bilateral 05/15/2019 Dr. Ruffin OPEN REPAIR OF ROTATOR CUFF ACUTE 04/2005 Dr. Mejias PAST SURGICAL HISTORY OF 10/1997 partial colectomy ([place], [facility]) PAST SURGICAL HISTORY OF 2011 nerves [...] at bedtime as needed. Dr Dupree vit A,C,J-Clax-Mlgdhj ([facility]) 7,160-113-100 fojs-ti-bcww tab Take by mouth. 0 ACETAMINOPHEN 500 [...] - ICD9: 427.89, ICD10: I47.10 Following with [facility]: recent nuclear pharm stress WNL. Heart flutters when she lays down, asymptomatic otherwise. Discussed levalbuterol with less tachycardia but still can exacerbate. Not taking propranolol 3. RUY (generalized anxiety disorder) - ICD9: 300.02, ICD10: F41.1 Feels it remains uncontrolled. Identifies heart flutters as anxiety, discussed SVT as more likely an aberrant pathway in heart conduction. Should discuss with marketing systems analyst. Some of this note may have been copied and pasted for the purpose of history context and comparison. All questions listed were asked and adjusted for changes in prior data. Kevin Andesren PA-C documented in this encounterTrinity [facility]04-16-2024 History of Present illness Narrative* Shoshana Perry APRN.[facility] - 03/17/2024 6:58 PM EDT This note was created using Intelligent Mechatronic Systemsriter. Subjective Sachi Grace is a 88 year old female. 88 year old female with PMH RLS, hyperlipidemia, asthma, and anxiety presents for wound. Acute onset one hour ago Left forearm Cut on [place] Denies head injury Denies neck pain Denies LOC. States that she used rubbing alcohol Denies blood thinners Last Tdap 2017 The history is provided by the patient. No disability aide was used. Laceration The incident occurred 1 [...] supraventricular tachycardia (HCC) ablation 01/2002 ( in [place], [facility]), follows with Dr. Moreno (prn only) [...] FLX DX W/COLLJ SPEC WHEN PFRMD 10/14/2018 [facility]-Selam Tabares-Repeat 5 years COLONOSCOPY SCREENING 11/15/2023 R Cebul no repeat due to age CORRECT BUNION,SIMPLE left ECHOCARDIOGRAM 10/18/2017 EGD 1985 bleeding ulcer EPS: SVT/VT ABLATION 2001 [facility] ESOPHAGOGASTRODUODENOSCOPY TRANSORAL DIAGNOSTIC 03/24/2018 EGD HERNIA REPAIR HX 09/2020 ventral hernia repair HOLTER 24 HR 10/2017 LOOP RECORDER IMPLANT 01/23/2018 NASAL/SINUS ENDOSCOPY WITH SPHENOIDOTOMY Bilateral 05/15/2019 Dr. Ruffin NASAL/SINUS ENDOSCPY W/MAXILL ANTROSTOMY Bilateral 05/15/2019 Dr. Ruffin NASAL/SINUS ENDOSCPY W/TOTAL ETHMOIDECTOMY Bilateral 05/15/2019 Dr. Ruffin OPEN REPAIR OF ROTATOR CUFF ACUTE 04/2005 Dr. Mejias PAST SURGICAL HISTORY OF 10/1997 partial colectomy ([place], [facility]) PAST SURGICAL HISTORY OF 2011 nerves [...] at bedtime as needed. Dr Dupree vit A,C,L-Hkhu-Qgguik ([facility]) 7,160-113-100 zvta-gl-clee tab Take by mouth. ACETAMINOPHEN 500 MG TAB Take one(1) tablet every four(4) to six(6) hours as needed for pain. FAMILY HISTORY Problem Relation Age of Onset Heart Mother rheumatic; 73 Colon Cancer Father dx'd age 50's Coronary Artery Disease Father age 40s, CABG (among the first done at in [place]) Stroke Sister at 58 of ruptured aneurysm [...] V03.89, ICD10: Z23 Tenivac updated Shoshana Perry APRN.TARGET WORKER documented in this encounterTrinity [facility]04-10-2024 Miscellaneous Notes* Telephone Encounter - Jeyson Snowden [...] causing this? Please review and advise, Sharon Paul RN documented in this encounterTrinity [facility]03-08-2024 Instructions* Patient Instructions* Anitra Mancera APRN.CNS - 02/07/2024 11:14 AM EST 1) Stop miralax 2) Take lactulose 1 Tbsp daily for constipation 3) Zofran 4mg every 6 hr as needed for nausea 4) Flonase OTC for nasal congestion documented in this encounterTrinity [facility]03-08-2024 History of Present illness Narrative* Anitra Mancera [...] tachycardia (HCC) ablation 01/2002 ( in [place], [facility]), follows with Dr. Moreno (prn only) [...] FLX DX W/COLLJ SPEC WHEN PFRMD 10/14/2018 [facility]. Cebul-Repeat 5 years COLONOSCOPY SCREENING 11/15/2023 R Cebul no repeat due to age CORRECT BUNION,SIMPLE left ECHOCARDIOGRAM 10/18/2017 EGD 1985 bleeding ulcer EPS: SVT/VT ABLATION 2001 [facility] ESOPHAGOGASTRODUODENOSCOPY TRANSORAL DIAGNOSTIC 03/24/2018 EGD HERNIA REPAIR HX 09/2020 ventral hernia repair HOLTER 24 HR 10/2017 LOOP RECORDER IMPLANT 01/23/2018 NASAL/SINUS ENDOSCOPY WITH SPHENOIDOTOMY Bilateral 05/15/2019 Dr. Ruffin NASAL/SINUS ENDOSCPY W/MAXILL ANTROSTOMY Bilateral 05/15/2019 Dr. Ruffin NASAL/SINUS ENDOSCPY W/TOTAL ETHMOIDECTOMY Bilateral 05/15/2019 Dr. Ruffin OPEN REPAIR OF ROTATOR CUFF ACUTE 04/2005 Dr. Mejias PAST SURGICAL HISTORY OF 10/1997 partial colectomy ([place], [facility]) PAST SURGICAL HISTORY OF 2011 nerves [...] mouth at bedtime as needed. Dr Joon Avery,Ann,E-Penm-Qahfjj ([facility]) 7,160-113-100 zmpb-rn-hejw tab Take by mouth. ACETAMINOPHEN 500 MG [...] CABG (among the first done at in [place]) Stroke Sister at 58 of ruptured aneurysm [...] as needed for worsening/no improvement. Anitra Mancera APRN.BEND SORTER The patient indicates understanding of these issues and agrees with the plan. documented in this encounterTrinity [facility]03-07-2024 Miscellaneous Notes* Telephone Encounter - Zulma Ji Ma - 02/06/2024 6:44 PM EST Pt is scheduled for tomorrow for provider, will discuss at visit * Telephone Encounter - Zulma Ji Ma - 02/06/2024 2:14 PM EST No answer * Telephone Encounter - Zulma Ji Ma - 02/06/2024 9:18 AM EST Called cell, no answer, voicemail not set up * Telephone Encounter - Zulma Ji Ma - 02/06/2024 8:58 AM EST Attempted to call home line, line busy * Telephone Encounter - Anitra Mancera APRN.CNS - 02/06/2024 8:01 AM EST I would like to switch her to lactulose 1 Tablespoon daily and refer to cabinet abrasive sandblaster. She canstop other bowel treatments other than drinking her water. Stop miralax. documented in this encounterTrinity Health [facility]03-06-2024 Miscellaneous Notes* Telephone Encounter - Marcia Sue [...] diverticulosis of the sigmoid colon. Protocols used: [id number] * Telephone Encounter - Precious Burden - 02/05/2024 3:02 PM EST Patient called requesting to speak to a nurse as she is still constipated Please advise documented in this encounterTrinity Health [facility] Campus03-01-2024 Miscellaneous Notes* Telephone Encounter - Zulma Ji Ma - 01/31/2024 2:23 PM EST Patient was made aware of the results. Patient verbalizes understanding. Zulma Ji Ma * Telephone Encounter - Zulma Ji Ma - 01/31/2024 2:21 PM EST ----- Message from Anitra Mancera APRN.BEND SORTER sent at 01/30/2024 5:18 PM EST ----- Echocardiogram showed a good strong heart. Tricuspid and mitral valves have a little bit of leakingdue to age. Cannot determine how effectively the heart is relaxing. This likely is not the reason for her shortness of breath. documented in this encounterTrinity Health [facility]03-01-2024 Miscellaneous Notes* Telephone Encounter - Alix Garcia RN - 01/31/2024 1:30 PM EST Pt called and is notified of providers results. Pt voices understanding. Alix Garcia, RN * Telephone Encounter - Anitra Mancera APRN.CNS - 01/31/2024 1:09 PM EST Please let patient know that her stress test was normal. Heart function is very good and strong. Noareas of her heart that are lacking blood flow. This was a normal test. documented in this encounterTrinity Health [facility]02-29-2024 Miscellaneous Notes* Telephone Encounter - Anitra Mancera APRN.CNS - 01/30/2024 5:20 PM EST Nurse to call patient regarding echocardiogram results. Heart function good and strong. Stress testis still pending. documented in this encounterTrinity Health [facility] Campus02-17-2024 Miscellaneous Notes* Telephone Encounter - Zulma Ji Ma - 01/18/2024 9:50 AM EST Will fax message to [facility] and advise that patient would like Joby Zhang to take over care, but keep current appointments scheduled until notified otherwise. Zulma Ji Ma * Telephone Encounter - Bart Lazar - 01/18/2024 9:20 AM EST Patient is requesting to do Nuc Med stress test with at [facility], please call [phone] for fax number to send order. Thank you. documented in this encounterTrinity Health [facility] Campus02-16-2024 Instructions* Patient Instructions* Anitra Mancera APRN.CNS - 01/17/2024 3:43 PM EST 1) aspirin 81 mg daily 2) may hold propranolol due to wheezing 3) echocardiogram schedule 4) stress test needs scheduled 5) follow up in 1 month documented in this encounterTrinity Health [facility]02-16-2024 History of Present illness Narrative* Anitra Mancera [...] father Fibromyalgia Generalized anxiety disorder [address] Dr. Joon-every 6 months Gout, unspecified late great toe, several episodes Hypothyroidism, unspecified Multinodular goiter Dr Boateng Osteoarthritis of both knees Other and unspecified hyperlipidemia diet therapy as of 03/08 Paroxysmal supraventricular tachycardia ablation 01/2002 ( in [place], [facility]), follows with Dr. Moreno (prn only) [...] FLX DX W/COLLJ SPEC WHEN PFRMD 10/14/2018 [facility]-R. [place]-Repeat 5 years COLONOSCOPY SCREENING 11/15/2023 R Cebul no repeat due to age CORRECT BUNION,SIMPLE left ECHOCARDIOGRAM 10/18/2017 EGD 1985 bleeding ulcer EPS: SVT/VT ABLATION 2001 [facility] ESOPHAGOGASTRODUODENOSCOPY TRANSORAL DIAGNOSTIC 03/24/2018 EGD HERNIA REPAIR HX 09/2020 ventral hernia repair HOLTER 24 HR 10/2017 LOOP RECORDER IMPLANT 01/23/2018 NASAL/SINUS ENDOSCOPY WITH SPHENOIDOTOMY Bilateral 05/15/2019 Dr. Ruffin NASAL/SINUS ENDOSCPY W/MAXILL ANTROSTOMY Bilateral 05/15/2019 Dr. Ruffin NASAL/SINUS ENDOSCPY W/TOTAL ETHMOIDECTOMY Bilateral 05/15/2019 Dr. Ruffin OPEN REPAIR OF ROTATOR CUFF ACUTE 04/2005 Dr. Mejias PAST SURGICAL HISTORY OF 10/1997 partial colectomy ([place], [facility]) PAST SURGICAL HISTORY OF 2011 nerves [...] at bedtime as needed. Dr Dupree vit A,C,E-Isms-Fgbomm (PRESERVISION AREDS) 7,160-113-100 jrrs-yp-bioy tab Take by mouth. ACETAMINOPHEN 500 MG [...] CABG (among the first done at in [place]) Stroke Sister at 58 of ruptured aneurysm [...] as needed for worsening/no improvement. Anitra Mancera APRN.LEXIE The patient indicates understanding of these issues and agrees with the plan. documented in this encounterTrinity Health System [facility] Campus02-14-2024 Miscellaneous Notes* Telephone Encounter - Lily Soriano [...] advise. Precious Chambers LPN documented in this encounterTrinity Health System West Campus01-26-2024 Miscellaneous Notes* Telephone Encounter - Bart Kyle LPN - 12/27/2023 11:44 AM EST Pt scheduled with COMPRESSOR ENGINEER for consultation regarding ongoing symptoms. Phoned pt for clarification. Pt states she has been dealing with anxiety symptoms- racing heart, shortness of breath, shaky feeling for 3 years. She denies CP. Pt states she starts to feel this way when she is sitting down playing euchre, she states I just get worked up. [...] ER. Bart Kyle LPN documented in this encounterTrinity Health System West Campus12-15-2023 Miscellaneous Notes* Telephone Encounter - Jenn Tsai - 11/15/2023 9:33 AM EST Pharmacy verified in [facility] Patient has been identified by [...] advise. Jenn Craft Pss documented in this encounterTrinity Health System West Campus11-03-2023 Miscellaneous Notes* Telephone Encounter - Sharon Paul RN - 10/04/2023 10:00 AM EDT Order faxed to [facility]. Sharon Paul RN * Telephone Encounter - Kevin Andersen PA-C - 10/03/2023 6:44 PM EDT Telephone on 10/03/23 KIP SCREENING Please send to [facility] ThanksYao PA-C * Telephone Encounter - Sharon Paul RN - 10/03/2023 4:25 PM EDT Patient calls and is asking for mammogram order to be placed and faxed to [facility]. Please review and advise, Sharon Paul RN documented in this encounterTrinity Health System [facility] Campus10-23-2023 History of Present illness Narrative* Berlin Ruiz [...] Care Visit completed when applicable. [facility] [place] Ruiz MD documented in this encounterTrinity Health System [facility] Campus09-19-2023 Miscellaneous Notes* Telephone Encounter - Halima Diaz RN - 08/20/2023 3:04 PM EDT Patient calling to request EMG order be faxed to [facility]. Faxed as requested. Halima Diaz RN documented in this encounterTrinity Health System West Campus09-18-2023 History of Present illness Narrative* Graham Flores [...] Is in both toes equally. Has seen ortho for her knees. Yao Andersen recently did [...] at bedtime as needed. Dr Dupree vit A,C,H-Lntz-Tuzubd (PRESERVISION AREDS) 7,160-113-100 uvku-gu-zayg tab Take by mouth. ACETAMINOPHEN 500 MG [...] tachycardia (HCC) ablation 01/2002 ( in [place], [facility]), follows with Dr. Moreno (prn only) [...] FLX DX W/COLLJ SPEC WHEN PFRMD 10/14/2018 [facility] CORRECT BUNION,SIMPLE left ECHOCARDIOGRAM 10/18/2017 EGD 1985 bleeding ulcer EPS: SVT/VT ABLATION 2001 [facility] ESOPHAGOGASTRODUODENOSCOPY TRANSORAL DIAGNOSTIC 03/24/2018 EGD HERNIA REPAIR HX 09/2020 ventral hernia repair HOLTER 24 HR 10/2017 LOOP RECORDER IMPLANT 01/23/2018 NASAL/SINUS ENDOSCOPY WITH SPHENOIDOTOMY Bilateral 05/15/2019 Dr. Ruffin NASAL/SINUS ENDOSCPY W/MAXILL ANTROSTOMY Bilateral 05/15/2019 Dr. Ruffin NASAL/SINUS ENDOSCPY W/TOTAL ETHMOIDECTOMY Bilateral 05/15/2019 Dr. Ruffin OPEN REPAIR OF ROTATOR CUFF ACUTE 04/2005 Dr. Mejias PAST SURGICAL HISTORY OF 10/1997 partial colectomy ([place], [facility]) PAST SURGICAL HISTORY OF 2011 nerves cut in my back STEREO LOC FOR CORE BRST BX LT 04/24/2010 left STRESS TEST 12/17/2017 TONSILLECTOMY PRIMARY/SECONDARY <AGE 12 FAMILY HISTORY Problem Relation Age of Onset Heart Mother rheumatic; 73 Colon Cancer Father dx'd age 50's Coronary Artery Disease Father age 40s, CABG (among the first done at in [place]) Stroke Sister at 58 of ruptured aneurysm [...] TIBC Graham Flores MD documented in this encounterTrinity Health System [facility] Campus08-30-2023 Miscellaneous Notes* Telephone Encounter - Lily Soriano LPN - 07/31/2023 1:46 PM EDT Spoke with [...] her pharmacy. Please advise documented in this encounterTrinity Health System [facility] Campus08-04-2023 Miscellaneous Notes* Telephone Encounter - Zulma Ji Ma - 07/05/2023 5:11 PM EDT Pt [...] came back higher. Pt wondering about a train master. documented in this encounterTrinity Health System West Campus08-01-2023 Instructions* Patient Instructions* Kevin Andersen PA-C - 07/02/2023 10:52 AM EDT [...] cup-Beef (cooked) 2 oz-Beet greens (cooked) 1/2 cup-[place] nuts 5 medium-Cereals 1 oz-Chicken (cooked) 3 [...] cup- Tongue 2 oz- Tuna 1/2 cup- [place] (cooked) 1 oz- Veal (cooked) 1 oz- [...] Pepcid, Tagamet, or Axid). documented in this encounterTrinity Health System West Campus08-01-2023 History of Present illness Narrative* Kevin Andersen [...] for [address] De Anda [facility] psychiatry Dr[address] Mckenzie retired. Identifies has been [...] CABG (among the first done at in [place]) Stroke Sister at 58 of ruptured aneurysm [...] supraventricular tachycardia (HCC) ablation 01/2002 ( in [place], [facility]), follows with Dr. Moreno (prn only) [...] FLX DX W/COLLJ SPEC WHEN PFRMD 10/14/2018 [facility] CORRECT BUNION,SIMPLE left ECHOCARDIOGRAM 10/18/2017 EGD 1985 bleeding ulcer EPS: SVT/VT ABLATION 2001 [facility] ESOPHAGOGASTRODUODENOSCOPY TRANSORAL DIAGNOSTIC 03/24/2018 EGD HERNIA REPAIR HX 09/2020 ventral hernia repair HOLTER 24 HR 10/2017 LOOP RECORDER IMPLANT 01/23/2018 NASAL/SINUS ENDOSCOPY WITH SPHENOIDOTOMY Bilateral 05/15/2019 Dr. Ruffin NASAL/SINUS ENDOSCPY W/MAXILL ANTROSTOMY Bilateral 05/15/2019 Dr. Ruffin NASAL/SINUS ENDOSCPY W/TOTAL ETHMOIDECTOMY Bilateral 05/15/2019 Dr. Ruffin OPEN REPAIR OF ROTATOR CUFF ACUTE 04/2005 Dr. Mejias PAST SURGICAL HISTORY OF 10/1997 partial colectomy ([place], [facility]) PAST SURGICAL HISTORY OF 2011 nerves [...] at bedtime as needed. Dr Dupree vit A,C,D-Ffss-Rqauis (PRESERVISION AREDS) 7,160-113-100 kejl-tq-epmr tab Take by mouth. 0 ACETAMINOPHEN 500 [...] history context and comparison. documented in this encounterTrinity Health System West Campus07-11-2023 Telephone encounter Note * Telephone Encounter - Zulma Ji MA - 06/11/2023 3:53 PM EDT Pt did an enema on Saturday. Has small BM's everyday. Does not have the urge to go, which is concerning her. She will discontinue the iron. She still wants the referral to Dr Tabares. She was told to repeat colonoscopy in 5 years, last one 10/14/18. Referral faxed [facility]07-11-2023 Miscellaneous Notes* Telephone Encounter - Zulma Ji MA - 06/11/2023 3:53 PM EDT Pt [...] RN * Telephone Encounter - Bridgette Bhardwaj APRN.RUSTY - 06/10/2023 12:19 PM EDT The following approved medication requests have been transmitted electronically. Requested Prescriptions Pending Prescriptions Disp Refills ferrous sulfate 325 mg (65 mg iron) tablet 90 tablet 1 Sig: Take 1 tablet by mouth daily with breakfast. rOPINIRole (REQUIP) 0.5 mg tablet 90 tablet 1 Sig: Take 1 tablet by mouth daily at bedtime. Bridgette Bhardwaj APRN.TARGET WORKER * Telephone Encounter - Soha Azevedo LPN - 06/10/2023 9:09 AM EDT Pt. would like a referral to Dr. Tabares's office for her bowels that was discussed during office visit. Please call Pt. back wisth information. documented in this encounterTrinity Health System [facility] Campus07-11-2023 Telephone encounter Note * Telephone Encounter - [...] Kevin ANDERSEN Ordering User: BRIDGETTE BHARDWAJ PA-C [facility]07-11-2023 Telephone encounter Note* Telephone Encounter - Sharon Paul RN - 06/11/2023 9:11 AM EDT Patient calls and states that at last appointment provider had discussed with her about seeing Dr. Tabares for her bowel issues. Patient asking if referral can be placed and then faxed to . Please review and advise, Sharon Paul RN [facility]07-10-2023 Telephone encounter Note* Telephone Encounter - Bridgette [...] by mouth daily at bedtime. Bridgette Bhardwaj APRN.CNP [facility] Work Phone: [phone]) 186-284907-10-2023 Telephone encounter Note* Telephone Encounter - Soha Azevedo LPN - 06/10/2023 9:09 AM EDT Pt. would like a referral to Dr. Tabares's office for her bowels that was discussed during office visit. Please call Pt. back wisth information. [facility]07-07-2023 Miscellaneous Notes* Telephone Encounter - Cathryn Rodriguez [...] advise. Skylar Spears LPN documented in this encounterTrinity Health System [facility] Campus07-03-2023 Miscellaneous Notes* Telephone Encounter - Zulma Ji Ma - 06/03/2023 1:59 PM EDT Detailed [...] advise. Skylar Spears LPN documented in this encounterTrinity Health System [facility] Campus06-29-2023 Miscellaneous Notes* Telephone Encounter - Cathryn Rodriguez RN - 05/30/2023 11:34 AM EDT Pt returned call and given results of x ray. Pt does not want to schedule 3 month f/u at this time.She will call back or schedule on her MyChart. Cathryn Rodriguez RN * Telephone Encounter - Zulma Ji Ma - 05/30/2023 8:37 AM EDT Left message for patient to return call. Please schedule 40 min f/u Zulma Ji Ma * Telephone Encounter - Zulma Ji Ma - 05/30/2023 8:35 AM EDT Please schedule follow up in 3 months and let her know flatplate abd shows a lot of gas and stool but no signs of obstruction. Thanks, Yao Andersen PA-C documented in this encounterTrinity Health System West Campus06-27-2023 History of Present illness Narrative* Kaleigh Lamas, RT(R) - 05/28/2023 12:30 PM EDT Radiology [...] 28, 2023 12:26 PM documented in this encounterTrinity Health System West Campus06-27-2023 Instructions* Patient Instructions* Kevin Andersen PA-C - 05/28/2023 12:07 PM EDT Hold off on Clear Lax a day or two ands see if there is a change in the stool. documented in this encounterTrinity Health System West Campus06-27-2023 History of Present illness Narrative* Kevin Andersen [...] taken. 03/08/2023 f/u with cardiology Joby Zhang [facility] States he noted swelling of legs, not [...] script- ? endo Sees Dr. Mal Boateng [facility] Latest Ref Rng & Units [...] Lymph 1.00 - 4.00 k/uL 0.73 (L) [place]% % 13.6 Abs [place] <0.87 k/uL 0.72 Eosin% % 9.2 Abs [...] CABG (among the first done at in [place]) Stroke Sister at 58 of ruptured aneurysm [...] supraventricular tachycardia (HCC) ablation 01/2002 ( in [place], [facility]), follows with Dr. Moreno (prn only) [...] FLX DX W/COLLJ SPEC WHEN PFRMD 10/14/2018 [facility] CORRECT BUNION,SIMPLE left ECHOCARDIOGRAM 10/18/2017 EGD 1985 bleeding ulcer EPS: SVT/VT ABLATION 2001 [facility] ESOPHAGOGASTRODUODENOSCOPY TRANSORAL DIAGNOSTIC 03/24/2018 EGD HERNIA REPAIR HX 09/2020 ventral hernia repair HOLTER 24 HR 10/2017 LOOP RECORDER IMPLANT 01/23/2018 NASAL/SINUS ENDOSCOPY WITH SPHENOIDOTOMY Bilateral 05/15/2019 Dr. Ruffin NASAL/SINUS ENDOSCPY W/MAXILL ANTROSTOMY Bilateral 05/15/2019 Dr. Ruffin NASAL/SINUS ENDOSCPY W/TOTAL ETHMOIDECTOMY Bilateral 05/15/2019 Dr. Ruffin OPEN REPAIR OF ROTATOR CUFF ACUTE 04/2005 Dr. Mejias PAST SURGICAL HISTORY OF 10/1997 partial colectomy ([place], [facility]) PAST SURGICAL HISTORY OF 2011 nerves [...] all other days) 30 tablet 11 vit A,C,M-Qiuj-Wkqram (PRESERVISION AREDS) 7,160-113-100 cjue-hx-sybw tab Take by mouth. 0 ACETAMINOPHEN 500 [...] will continue to follow. Orders from Ca Andersen PA-C documented in this encounterTrinity Health System West Campus06-23-2023 Miscellaneous Notes* Telephone Encounter - Soha Azevedo LPN - 05/24/2023 9:42 AM EDT Pt. calling wanting Lab results done by Ortho. Explained that she should call the provider that ordered tests for results.Pt. will call Ortho. documented in this encounterTrinity Health System West Campus03-15-2023 Miscellaneous Notes* Telephone Encounter - Bart Kyle [...] done? Patient does have an appointment with [facility] next week. Please review and advise, Sharon Paul RN documented in this encounterTrinity Health System West Campus02-21-2023 Instructions* Patient Instructions* Kevin Andersen PA-C - 01/22/2023 12:32 PM EST [...] provider can identify and treat. Published by [employer]. This content is reviewed periodically and is subject to change as new health information becomes available. The information is intended to inform and educate and is not a replacement for medical evaluation, advice, diagnosis or treatment by a healthcare professional. Developed by Leonor Chua MD, for [employer] Copyright 2006 [employer] and/or one of its subsidiaries. All Rights Reserved. Special Instructions: Zoledronic acid: Patient drug information Access [employer] Online for additional drug information, tools, and databases. Copyright 9197-1605 [employer]. All rights reserved. Contributor Disclosures (For additional information see Zoledronic acid: Drug information and see Zoledronic acid: Pediatric drug information) You must carefully read the Consumer Information Use and Disclaimer below in order to understand and correctly use this information. Brand Names: US Reclast; Zometa [DSC] Brand Names: Karla Aclasta; JAMP-Zoledronic Acid; PMS-Zoledronic Acid [DSC]; TARO-Zoledronic [...] much, and when it happened. Last Reviewed [id number] Consumer Information Use and Disclaimer This generalized [...] or approved for treating a specific patient. [employer] and its affiliatesdisclaim any warranty or liability relating to this information or the use thereof. The use of thisinformation is governed by the Terms of Use, available at https://www.[employer].com/en/know/lrenqxdw-zfyofphgvheyf-jnpjy. 2021 [employer]. and its affiliates and/or licensors. All rights reserved. Use of UpToDate is subject to the Terms of Use. Topic 82898 Version 160.0 Copyright Clinical Reference Systems 2007 [employer]'s [employer] Advisor Copyright 2008 [employer]. All rights reserved. - www.OvaScience documented in this encounterTrinity Health System [facility] Campus02-21-2023 History of Present illness Narrative* Kevin Andersen PA-C - 01/22/2023 11:40 AM EST 87 year old female with c/o concern about iron levels. Concerned with palpations dating as far back as 2006 in records. Hx atrial tachycardia s/p ablation [facility] 2001 States was doing okay and [...] CABG (among the first done at in [place]) Stroke Sister at 58 of ruptured aneurysm [...] tachycardia (HCC) ablation 01/2002 ( in [place], [facility]), follows with Dr. Moreno (prn only) [...] FLX DX W/COLLJ SPEC WHEN PFRMD 10/14/2018 [facility] CORRECT BUNION,SIMPLE left ECHOCARDIOGRAM 10/18/2017 EGD 1985 bleeding ulcer EPS: SVT/VT ABLATION 2001 [facility] ESOPHAGOGASTRODUODENOSCOPY TRANSORAL DIAGNOSTIC 03/24/2018 EGD HERNIA REPAIR HX 09/2020 ventral hernia repair HOLTER 24 HR 10/2017 LOOP RECORDER IMPLANT 01/23/2018 NASAL/SINUS ENDOSCOPY WITH SPHENOIDOTOMY Bilateral 05/15/2019 Dr. Ruffin NASAL/SINUS ENDOSCPY W/MAXILL ANTROSTOMY Bilateral 05/15/2019 Dr. Ruffin NASAL/SINUS ENDOSCPY W/TOTAL ETHMOIDECTOMY Bilateral 05/15/2019 Dr. Ruffin OPEN REPAIR OF ROTATOR CUFF ACUTE 04/2005 Dr. Mejias PAST SURGICAL HISTORY OF 10/1997 partial colectomy ([place], [facility]) PAST SURGICAL HISTORY OF 2011 nerves [...] all other days) 30 tablet 11 vit A,C,E-Ypts-Wfngtb (PRESERVISION AREDS) 7,160-113-100 qzxr-as-boia tab Take by mouth. 0 ACETAMINOPHEN 500 [...] NSR w/ 1st AVB, normal axis pending marketing systems analyst review ASSESSMENT/PLAN: 1. Generalized anxiety disorder - [...] COPD. Kevin Andersen PA-C documented in this encounterTrinity Health System [facility] Campus02-07-2023 Miscellaneous Notes* Telephone Encounter - Bridgette Melendez - 01/08/2023 9:05 AM ESTSummary: Bone Density Called PT to schedule bone density, PT did not want to schedule, says she is going to get one done in May at another doctors office. ThanksBridgette, GALINA * Telephone Encounter - Zulma Ji Ma - 01/07/2023 12:52 PM EST Images from the original note were not included. Kevin Andersen PA-C P [facility] [place] Please schedule BMD ThanksYao PA-C documented in this encounterTrinity Health System West Campus02-03-2023 Instructions* Patient Instructions* Kevin Andersen PA-C - [...] your usual activities immediately. documented in this encounterTrinity Health System West Campus02-03-2023 History of Present illness Narrative* Kevin Andersen [...] help. Moderate persistent asthma without complication COPD Sales Manager: Dr. Eliel Garcia Interval history: none No [...] has been stable since. [facility] 11[facility]2022 EKG normal sinus rhythm no ischemic changes 01/10/2021: Last noted remote loop recorder interrogation: No activated events, 2 pauses likely related to under sensed QRS. Average heart rate 70 bpm. 08/22/2020 echocardiogram follow-up P, Dr. Jurado: LV size and LV SF [...] Did have a follow-up with Dr. Jurado [facility] Current meds: none Use of NTG: [...] 1.00 - 4.00 k/uL 1.11 0.95 (L) [place]% % 12.6 11.8 Abs [place] <0.87 k/uL 0.73 0.70 Eosin% % 6.6 [...] Dupree) Continues with Dr. Dupree Also in counsleing Feels she is stable and controlled. 09/07/22 [facility] BH/Counseling Dr. Yanely Reddy Depression, major, recurrent, moderate (Discharge Diagnosis) - 09/07/22 Neurological signs (Discharge Diagnosis) - 09/07/22 Generalized anxiety disorder (Discharge Diagnosis) - 09/07/22 Benzodiazepine dependence (Discharge Diagnosis) - 09/07/22 Bppv (benign paroxysmal positional vertigo), unspecified laterality Intermittent, no current sx. 04/07/2009 Dr. Georgette Ferrer, vestibular testing at [facility]: Could not tolerate oculomotor orrotary chair testing, normal caloric testing, almost indiscernible left torsion was seen in the [place] and [place]. No nystagmus with neck [...] hernia: Not bothersome 07/18/2020 CT abd/ pel [facility] ED: Constipation pattern, no abdominal disease identified, bilateral small fat-containing inguinal hernias together with small fat-containing hernia upper midline ventral wall HISTORIES FAMILY HISTORY Problem Relation Age of Onset Heart Mother rheumatic; 73 Colon Cancer Father dx'd age 50's Coronary Artery Disease Father age 40s, CABG (among the first done at in [place]) Stroke Sister at 58 of ruptured aneurysm [...] supraventricular tachycardia (HCC) ablation 01/2002 ( in [place], [facility]), follows with Dr. Moreno (prn only) [...] FLX DX W/COLLJ SPEC WHEN PFRMD 10/14/2018 [facility] CORRECT BUNION,SIMPLE left ECHOCARDIOGRAM 10/18/2017 EGD 1985 bleeding ulcer EPS: SVT/VT ABLATION 2001 [facility] ESOPHAGOGASTRODUODENOSCOPY TRANSORAL DIAGNOSTIC 03/24/2018 EGD HERNIA REPAIR HX 09/2020 ventral hernia repair HOLTER 24 HR 10/2017 LOOP RECORDER IMPLANT 01/23/2018 NASAL/SINUS ENDOSCOPY WITH SPHENOIDOTOMY Bilateral 05/15/2019 Dr. Ruffin NASAL/SINUS ENDOSCPY W/MAXILL ANTROSTOMY Bilateral 05/15/2019 Dr. Ruffin NASAL/SINUS ENDOSCPY W/TOTAL ETHMOIDECTOMY Bilateral 05/15/2019 Dr. Ruffin OPEN REPAIR OF ROTATOR CUFF ACUTE 04/2005 Dr. Mejias PAST SURGICAL HISTORY OF 10/1997 partial colectomy ([place], [facility]) PAST SURGICAL HISTORY OF 2011 nerves [...] all other days) 30 tablet 11 vit A,C,M-Xnwv-Zhwbqg (PRESERVISION AREDS) 7,160-113-100 izzx-zs-hxtk tab Take by mouth. 0 ACETAMINOPHEN 500 [...] recorder Has had follow-up with Dr. Jurado, [facility], previously at [facility]. 3. Orthostatic syncope - ICD9: 458.0, ICD10: [...] documentation. Kevin Andersen PA-C documented in this encounterTrinity Health System West Campus01-24-2023 History of Present illness Narrative* Kimberly Gómez PA-C - 12/25/2022 2:25 PM EST This note was created using Intelligent Mechatronic Systemsriter. Subjective Sachi Grace is a 87 year old female. HPI Patient presents with sinus pressure and congestion over the past 2 weeks. She tried a cough medicine and antihistamine doxe-fzd-uhlwfve without relief. She has had a cough [...] supraventricular tachycardia (HCC) ablation 01/2002 ( in [place], [facility]), follows with Dr. Moreno (prn only) [...] all other days) 30 tablet 11 vit A,C,W-Fyga-Xxuwul (PRESERVISION AREDS) 7,160-113-100 udej-xv-hfsx tab Take by mouth. 0 ACETAMINOPHEN 500 [...] FLX DX W/COLLJ SPEC WHEN PFRMD 10/14/2018 Yana Tabares-Repeat 5 years CORRECT BUNION,SIMPLE left ECHOCARDIOGRAM 10/18/2017 EGD 1985 bleeding ulcer EPS: SVT/VT ABLATION 2001 [facility] ESOPHAGOGASTRODUODENOSCOPY TRANSORAL DIAGNOSTIC 03/24/2018 EGD HERNIA REPAIR HX 09/2020 ventral hernia repair HOLTER 24 HR 10/2017 LOOP RECORDER IMPLANT 01/23/2018 NASAL/SINUS ENDOSCOPY WITH SPHENOIDOTOMY Bilateral 05/15/2019 Dr. Ruffin NASAL/SINUS ENDOSCPY W/MAXILL ANTROSTOMY Bilateral 05/15/2019 Dr. Ruffin NASAL/SINUS ENDOSCPY W/TOTAL ETHMOIDECTOMY Bilateral 05/15/2019 Dr. Ruffin OPEN REPAIR OF ROTATOR CUFF ACUTE 04/2005 Dr. Mejias PAST SURGICAL HISTORY OF 10/1997 partial colectomy ([place], [facility]) PAST SURGICAL HISTORY OF 2011 nerves cut in my back STEREO LOC FOR CORE BRST BX LT 04/24/2010 left STRESS TEST 12/17/2017 TONSILLECTOMY PRIMARY/SECONDARY <AGE 12 FAMILY HISTORY Problem Relation Age of Onset Heart Mother rheumatic; 73 Colon Cancer Father dx'd age 50's Coronary Artery Disease Father age 40s, CABG (among the first done at in [place]) Stroke Sister at 58 of ruptured aneurysm [...] worsen. Kimberly Gómez PA-C documented in this encounterTrinity Health System [facility] Campus01-12-2023 Miscellaneous Notes* Telephone Encounter - Zulma Ji Ma - 12/13/2022 11:18 AM EST Patient [...] pharmacy. No need to notify patient. Zulma Ji Ma * Telephone Encounter - Carol Lazar [...] advise. Carol Lazar Pss documented in this encounterTrinity Health System West Campus12-19-2022 Miscellaneous Notes* Telephone Encounter - Arin Debbie DUMONT - 11/19/2022 8:41 AM EST Patient returned [...] results below. Halima Diaz RN Result Notes Kevin Andersen PA-C 11/17/2022 8:30 AM EST Please [...] appointment. Yao Bradley PA-C documented in this encounterTrinity Health System West Campus12-13-2022 Miscellaneous Notes* Telephone Encounter - Zulma Ji Ma - 11/13/2022 5:12 PM EST Detailed message left for pt * Telephone Encounter - Kevin Andersen PA-C - 11/13/2022 5:02 PM EST Xavier, I remembered incorrectly. Will send to [facility] pharmacy The following approved medication requests have been transmitted electronically. Requested Prescriptions Signed Prescriptions Disp Refills dilTIAZem ointment 2% (CPD) 30 g 0 Sig: by RECTAL route twice daily. Authorizing Provider: Kevin ANDERSEN PA-C Thanks, Greg Barton, PA-C * Telephone Encounter - Anali Ace LPN - 11/13/2022 4:52 PM EST Ryan with [facility] calls to report diltiazem ointment 2% appears to be a compound rx and they do not do those. Ryan reports Moe at [facility] does compound rx and it could be sent there otherwisea different medication will need to be ordered. Anali Ace LPN documented in this encounterTrinity [facility]12-13-2022 History of Present illness Narrative* Kaleigh Lamas RT(R) - 11/13/2022 4:30 PM EST Radiology [...] 13, 2022 4:24 PM documented in this encounterTrinity Health System [facility] Campus12-13-2022 Instructions* Patient Instructions* Kevin Andersen PA-C - [...] taking this medication. Piriforimis stretches per handout. [facility] Anal fissure Definition An anal fissure is [...] Minor surgery to relax the anal muscle [place] (Prognosis) Anal fissures generally heal quickly without [...] diarrhea Avoid irritating the rectum References Marry Del Valle Anal fissure. In: Mendoza BARAHONA, ed. Mendoza's Clinical Advisor 2008: Instant Diagnosis and Treatment. 1st ed. [facility]: Zi; 2007. Review Date: 06/17/2008 Reviewed By: Estrellita Irvin MD, Department of Gastroenterology, [facility], [place], [place]. Review provided by [employer]. Also reviewed by Leeroy Slade MD, [facility], Education General Manager, [employer] The information provided herein should [...] strictly prohibited. Special Instructions: Murphy urbina Copyright [employer] Information [employer] 2009 [employer].M[employer] Copyright 2010 Elsevier Inc. All rights reserved. - www.Topic.Topera documented in this encounterTrinity Health System [facility] Campus12-13-2022 History of Present illness Narrative* Kevin Andersen [...] CABG (among the first done at in [place]) Stroke Sister at 58 of ruptured aneurysm [...] tachycardia (HCC) ablation 01/2002 ( in [place], [facility]), follows with Dr. Moreno (prn only) [...] FLX DX W/COLLJ SPEC WHEN [facility] CORRECT BUNION,SIMPLE left ECHOCARDIOGRAM 10/18/2017 EGD 1985 bleeding ulcer EPS: SVT/VT ABLATION 2001 [facility] ESOPHAGOGASTRODUODENOSCOPY TRANSORAL DIAGNOSTIC 03/24/2018 EGD HERNIA REPAIR HX 09/2020 ventral hernia repair HOLTER 24 HR 10/2017 LOOP RECORDER IMPLANT 01/23/2018 NASAL/SINUS ENDOSCOPY WITH SPHENOIDOTOMY Bilateral 05/15/2019 Dr. Ruffin NASAL/SINUS ENDOSCPY W/MAXILL ANTROSTOMY Bilateral 05/15/2019 Dr. Ruffin NASAL/SINUS ENDOSCPY W/TOTAL ETHMOIDECTOMY Bilateral 05/15/2019 Dr. Ruffin OPEN REPAIR OF ROTATOR CUFF ACUTE 04/2005 Dr. Mejias PAST SURGICAL HISTORY OF 10/1997 partial colectomy ([place], [facility]) PAST SURGICAL HISTORY OF 2011 nerves [...] all other days) 30 tablet 11 vit A,C,Q-Relh-Tvvehr (PRESERVISION AREDS) 7,160-113-100 yequ-cy-spnw tab Take by mouth. 0 ACETAMINOPHEN 500 [...] needed Kevin Andersen PA-C documented in this encounterTrinity Health [facility] Campus12-09-2022 Miscellaneous Notes* Telephone Encounter - Zulma Ji Ma - 11/09/2022 5:23 PM EST Patient [...] advise patient. Thank you. documented in this encounterTrinity Health [facility] Campus12-09-2022 Miscellaneous Notes* Telephone Encounter - Halima Diaz RN - 11/09/2022 9:40 AM EST Patient returned call and given provider's message below. Danica Diaz RN * Telephone Encounter - Zulma Ji Ma - 11/08/2022 4:37 PM EST Left message for patient to return call. Zulma Ji Ma * Telephone Encounter - Kevin Andersen PA-C - 11/08/2022 4:00 PM EST Let her know this is unlikely to raise heart rate or cause palpitations. Thanks, Yao Andersen PA-C * Telephone Encounter - Sharon Paul RN - 11/07/2022 9:27 AM EST Patient calls and states that the inhaler that she is on is [employer] Digihaler. Sharon Paul RN documented in this encounterTrinity Health [facility] Campus12-06-2022 History of Present illness Narrative* Kevin Andersen [...] 1.00 - 4.00 k/uL 0.92 (L) 1.11 [place]% % 13.6 12.6 Abs [place] <0.87 k/uL 0.77 0.73 [place]% % 7.2 [...] CABG (among the first done at in [place]) Stroke Sister at 58 of ruptured aneurysm [...] supraventricular tachycardia (HCC) ablation 01/2002 ( in [place], [facility]), follows with Dr. Moreno (prn only) [...] 1985 bleeding ulcer EPS: SVT/VT ABLATION 2001 [facility] ESOPHAGOGASTRODUODENOSCOPY TRANSORAL DIAGNOSTIC 03/24/2018 EGD HERNIA REPAIR HX 09/2020 ventral hernia repair HOLTER 24 HR 10/2017 LOOP RECORDER IMPLANT 01/23/2018 NASAL/SINUS ENDOSCOPY WITH SPHENOIDOTOMY Bilateral 05/15/2019 Dr. Ruffin NASAL/SINUS ENDOSCPY W/MAXILL ANTROSTOMY Bilateral 05/15/2019 Dr. Ruffin NASAL/SINUS ENDOSCPY W/TOTAL ETHMOIDECTOMY Bilateral 05/15/2019 Dr. Ruffin OPEN REPAIR OF ROTATOR CUFF ACUTE 04/2005 Dr. Mejias PAST SURGICAL HISTORY OF 10/1997 partial colectomy ([place], [facility]) PAST SURGICAL HISTORY OF 2011 nerves [...] Mon, Wed, Fri) 30 tablet 11 vit A,C,K-Bxpp-Axpqne (PRESERVISION AREDS) 7,160-113-100 cacm-pd-wpmc tab Take by mouth. 0 ACETAMINOPHEN 500 [...] BLD Kevin Andersen PA-C documented in this encounterTrinity Health System [facility] Campus11-14-2022 Miscellaneous Notes* Telephone Encounter - Arin Lewis LPN - 10/15/2022 4:45 PM EST Patient calling [...] you. Arin Lewis LPN documented in this encounterTrinity Health System [facility] Campus11-03-2022 Miscellaneous Notes* Telephone Encounter - Lily Soriano LPN - 10/04/2022 5:40 PM EDT Patient agreeable to IFOBT will scrap picker in lobby. * Telephone Encounter - [...] and reports provider had sent her a Providajob message on 10/02/22 telling her Remeron could [...] Please call and advise. documented in this encounterTrinity Health System [facility] Campus10-31-2022 History of Present illness Narrative* Skye Rowland [...] 01, 2022 4:35 PM documented in this encounterTrinity Health System [facility] Campus10-31-2022 History of Present illness Narrative* M Ruben Andersen PA-C - 10/01/2022 3:49 PM EDT 87 year old female with c/o URI sx which started 1 week ago with dry cough, then nose runnny, blowing an dpsitting mucus. Shoulders hurt, buttocks hurt. Non fever. Getting sputum up: clear. No end to drippy nose. Hx moderate persistent asthma No hx pneumonia. Samples from nylon machine operator Dr. Nain Mauricio testing negative. No vomiting, no diarrhea HISTORIES FAMILY HISTORY Problem Relation Age of Onset Heart Mother rheumatic; 73 Colon Cancer Father dx'd age 50's Coronary Artery Disease Father age 40s, CABG (among the first done at in [place]) Stroke Sister at 58 of ruptured aneurysm [...] supraventricular tachycardia (HCC) ablation 01/2002 ( in [place], [facility]), follows with Dr. Moreno (prn only) [...] FLX DX W/COLLJ SPEC WHEN PFRMD 10/14/2018 [facility] Tabares-Repeat 5 years CORRECT BUNION,SIMPLE left ECHOCARDIOGRAM 10/18/2017 EGD 1985 bleeding ulcer EPS: SVT/VT ABLATION 2001 [facility] ESOPHAGOGASTRODUODENOSCOPY TRANSORAL DIAGNOSTIC 03/24/2018 EGD HERNIA REPAIR HX 09/2020 ventral hernia repair HOLTER 24 HR 10/2017 LOOP RECORDER IMPLANT 01/23/2018 NASAL/SINUS ENDOSCOPY WITH SPHENOIDOTOMY Bilateral 05/15/2019 Dr. Ruffin NASAL/SINUS ENDOSCPY W/MAXILL ANTROSTOMY Bilateral 05/15/2019 Dr. Ruffin NASAL/SINUS ENDOSCPY W/TOTAL ETHMOIDECTOMY Bilateral 05/15/2019 Dr. Ruffin OPEN REPAIR OF ROTATOR CUFF ACUTE 04/2005 Dr. Mejias PAST SURGICAL HISTORY OF 10/1997 partial colectomy ([place], [facility]) PAST SURGICAL HISTORY OF 2011 nerves [...] Mon, Wed, Fri) 30 tablet 11 vit A,C,C-Jhvh-Utmqih (PRESERVISION AREDS) 7,160-113-100 cfqo-es-lmtj tab Take by mouth. 0 ACETAMINOPHEN 500 [...] care. Kevin Andersen PA-C documented in this encounterTrinity Health System [facility] Campus09-16-2022 Miscellaneous Notes* Telephone Encounter - Precious Stapleton [...] nauseated. Shira Ordonez APRN.CNP documented in this encounterTrinity Health System [facility] Campus09-13-2022 History of Present illness Narrative* Shira Ordonez [...] in something. Will be following up with Roc next week. PAST MEDICAL HISTORY Diagnosis Date [...] supraventricular tachycardia (HCC) ablation 01/2002 ( in [facility]), follows with Dr. Moreno (prn only) [...] empty stomach Mon, Wed, Fri ) vit A,C,M-Svmj-Rzlovu (PRESERVISION AREDS) 7,160-113-100 rxrp-jn-ozok tab Take by mouth. ACETAMINOPHEN 500 MG [...] her Requip - she should follow-up with [facility] regarding anxiety - FERRITIN BLD - IRON + TIBC - CBC + DIFF - ROPINIROLE 0.5 MG TABLET - follow-up if symptoms fail to improve 2. Iron deficiency - ICD9: 280.9, ICD10: E61.1 - FERRITIN BLD - IRON + TIBC - CBC + DIFF 3. Generalized anxiety disorder - ICD9: 300.02, ICD10: F41.1 - [facility] - continue current medications Shira Ordonez APRN.CNP Prescription instructions reviewed with [...] which included preparing to see the patient, iery-mh-yvdr patient care, completing clinical documentation, obtaining and/or reviewing separately obtained history, performing a medically appropriate examination, counseling and educating the pat ient/family/caregiver, and ordering medications, tests, or procedures. documented in this encounterTrinity Health System [facility] Campus09-08-2022 Miscellaneous Notes* Telephone Encounter - Lily Soriano [...] to answer the call. documented in this encounterTrinity Health System [facility] Campus08-29-2022 Miscellaneous Notes* Telephone Encounter - Jenn Craft Pss - 07/30/2022 10:07 AM EDT Sachi is calling about her ropinirole 0.25mg tablet. She has been having issues with her restless legs and started taking the medication as a whole tablet, instead of a 0.5 tablet. Her script now needs to be changed an called in. Pharmacy : [facility] Sachi: [phone] documented in this encounterTrinity Health System [facility] Campus07-19-2022 Miscellaneous Notes* Telephone Encounter - Halima Diaz [...] asking for order to be faxed to [facility]. Please review and advise, Sharon Paul RN documented in this encounterTrinity Health System [facility] Campus05-23-2022 Miscellaneous Notes* Telephone Encounter - IAN Francis - 04/23/2022 10:22 AM EDT BEHAVIORAL HEALTH SOCIAL WORK CONSULT NOTE Service Date: April 23, 2022 Patient was identified by name and Patient: Sachi [place] [id number] [facility] [id number] (home) [phone] (cell) PCP: Troy Mckeon MD [id number] [facility] [id number] Assessment: [facility] spoke with pt about getting connected with [...] empty stomach Mon, Wed, Fri ) vit A,C,T-Aban-Ycalas (PRESERVISION AREDS) 7,160-113-100 debv-tq-ppqs tab Take by mouth. ACETAMINOPHEN 500 MG [...] 15 minutes IAN Francis-S documented in this encounterTrinity Health System [facility] Campus05-19-2022 Miscellaneous Notes* Telephone Encounter - Melissa Morales - 04/19/2022 9:30 AM EDT Letter mailed. Melissa Escobar Pss * Telephone Encounter - IAN Francis - 04/18/2022 10:26 AM EDT [facility] called the pt and left message with name and number asking for a return call. [facility] was unable to reach patient via phone. [facility] will send letter out to patient. documented in this encounterTrinity Health System [facility] Campus05-06-2022 History of Present illness Narrative* Shira Ordonez, GENERAL SURGEON.TARGET WORKER - 04/06/2022 10:07 AM EDT 04/06/2022 Patient [...] supraventricular tachycardia (HCC) ablation 01/2002 ( in [place], [facility]), follows with Dr. Moreno (prn only) [...] empty stomach Mon, Wed, Fri ) vit A,C,C-Cafr-Duttce (PRESERVISION AREDS) 7,160-113-100 mxye-ye-dsus tab Take by mouth. ACETAMINOPHEN 500 MG [...] agreeable to treatment plan. documented in this encounterTrinity Health System [facility] Campus05-03-2021 History of Present illness Narrative* Skye Rowland [...] IV DATA: Not applicable SIGNED BY: RT Ryan(Alvin) April 03, 2021 9:09 AM documented in this encounterTrinity Health System [facility] Campus02-06-2021 NoteProcedure (AKEPD) SACHI GRACE ([id number]) 1935 F NFR Date Time Provider Department 01/07/21 8:00 AM REM DEVICE CK AKEPD During your visit today, we recorded the following information about you: Referring Provider: KRYS REED [[id number]] Allergies As of Date: 01/07/2021 Noted Allergy Reaction VICODIN (HYDROCODONE-ACETAMINOPHE*05/04/2013 8 - GI Upset COCAMIDOPROPYL BETAINE 07/27/2020 2 - Rash Comments: itching, rash CODEINE 03/19/2007 8 - GI Upset PERCOCET (OXYCODONE-ACETAMINOPHEN)04/22/2013 8 - GI Upset SULFA (SULFONAMIDE ANTIBIOTICS) 03/19/2007 4 - Hives 7 - Swelling Comments: lips swelled up TETRACYCLINE 04/29/2019 8 - GI Upset Date Reviewed: 11/01/2020 Reviewed by: Dolores Brown (Jluia) JULIA Gaytan - Fully Assessed Reason for Visit: Remote ILR Follow Up [1926] Visit Diagnosis:Paroxysmal SVT (supraventricular tachycardia) ([facility]) [I47.1] Prescriptions as of 01/07/2021 Sig: CLONAZEPAM [...] 50 mcg by mouth once fidel* VITAMINS A,C,M-DYYB-WAAPGF 7* Take by mouth. ACETAMINOPHEN 500 MG TABLET Take one(1) tablet every four* Problem List As Of Date 01/07/2021 Noted Resolved Unspecified constipation [K59.00] 04/30/2006 03/16/2016 More... PEPTIC ULCER NOS [K27.9] 03/19/2007 More... More... GENERALIZED ANXIETY DIS [F41.1] Generalized osteoarthrosis, unspecified site [M* 12/23/2015 More... Myalgia and myositis [[id number]] 05/22/2017 More... Diverticulosis of large intestine [K57.30] [...] 07/27/2020 Encounter Status:Closed by D[facility] CROWELL on [facility]/10/21[facility] NoteProcedure (AKEPD) SACHI GRACE ([id number]) 1935 F NFR Date Time Provider Department 12/08/20 8:00 AM REM DEVICE CK AKEPD During your visit today, we recorded the following information about you: Referring Provider: KRYS REED [[id number]] Allergies As of Date: 12/08/2020 Noted Allergy [...] 50 mcg by mouth once fidel* VITAMINS A,C,U-KRBN-SJRRWF 7* Take by mouth. ACETAMINOPHEN 500 MG TABLET Take one(1) tablet every four* Problem List As Of Date 12/08/2020 Noted Resolved Unspecified constipation [K59.00] 04/30/2006 03/16/2016 More... PEPTIC ULCER NOS [K27.9] 03/19/2007 More... More... GENERALIZED ANXIETY DIS [F41.1] Generalized osteoarthrosis, unspecified site [M* 12/23/2015 More... Myalgia and myositis [[id number]] 05/22/2017 More... Diverticulosis of large intestine [K57.30] [...] 07/27/2020 Encounter Status:Closed by PRECIOUS COPELAND on 12/09/20[facility] 11-08-[facility] NoteProcedure (AKEPD) SACHI GRACE ([id number]) 1935 F NFR Date Time Provider Department 11/08/20 8:00 AM REM DEVICE CK AKEPD During your visit today, we recorded the following information about you: Referring Provider: KRYS REED [[id number]] Allergies As of Date: 11/08/2020 Noted Allergy Reaction VICODIN (HYDROCODONE-ACETAMINOPHE*05/04/2013 8 - GI Upset COCAMIDOPROPYL BETAINE 07/27/2020 2 - Rash Comments: itching, rash CODEINE 03/19/2007 8 - GI Upset PERCOCET (OXYCODONE-ACETAMINOPHEN)04/22/2013 8 - GI Upset SULFA (SULFONAMIDE ANTIBIOTICS) 03/19/2007 4 - Hives 7 - Swelling Comments: lips swelled up TETRACYCLINE 04/29/2019 8 - GI Upset Date Reviewed: 11/01/2020 Reviewed by: Dolores Brown (Information Assurance Officer) JULIA Gaytan - Fully Assessed Reason for [...] 50 mcg by mouth once fidel* VITAMINS A,C,J-YBIU-FJWSNC 7* Take by mouth. ACETAMINOPHEN 500 MG TABLET Take one(1) tablet every four* Problem List As Of Date 11/08/2020 Noted Resolved Unspecified constipation [K59.00] 04/30/2006 03/16/2016 More... PEPTIC ULCER NOS [K27.9] 03/19/2007 More... More... GENERALIZED ANXIETY DIS [F41.1] Generalized osteoarthrosis, unspecified site [M* 12/23/2015 More... Myalgia and myositis [ITR3499] 05/22/2017 More... Diverticulosis of large intestine [K57.30] [...] 07/27/2020 Encounter Status:Closed by PRECIOUS COPELAND on 11/09/20[facility] 10-09-[facility] NoteProcedure (AKELAD) SACHI GRACE ([id number]) 1935 F NFR Date Time Provider Department 10/09/20 8:00 AM REM DEVICE CK AKEPD During your visit today, we recorded the following information about you: Referring Provider: KRYS REED [[id number]] Allergies As of Date: 10/09/2020 Noted Allergy Reaction VICODIN (HYDROCODONE-ACETAMINOPHE*05/04/2013 8 - GI Upset COCAMIDOPROPYL BETAINE 07/27/2020 2 - Rash Comments: itching, rash CODEINE 03/19/2007 8 - GI Upset PERCOCET (OXYCODONE-ACETAMINOPHEN)04/22/2013 8 - GI Upset SULFA (SULFONAMIDE ANTIBIOTICS) 03/19/2007 4 - Hives 7 - Swelling Comments: lips swelled up TETRACYCLINE 04/29/2019 8 - GI Upset Date Reviewed: 08/11/2020 Reviewed by: Mandy ([facility]) SABRINA Chan - Fully Assessed Reason for [...] 50 mcg by mouth once fidel* VITAMINS A,C,W-UYES-SYCVZW 7* Take by mouth. ACETAMINOPHEN 500 MG TABLET Take one(1) tablet every four* Problem List As Of Date 10/09/2020 Noted Resolved Unspecified constipation [K59.00] 04/30/2006 03/16/2016 More... PEPTIC ULCER NOS [K27.9] 03/19/2007 More... More... GENERALIZED ANXIETY DIS [F41.1] Generalized osteoarthrosis, unspecified site [M* 12/23/2015 More... Myalgia and myositis [[id number]] 05/22/2017 More... Diverticulosis of large intestine [K57.30] [...] 07/27/2020 Encounter Status:Closed by DION CROWELL on 10/10/20[facility] NoteProcedure (AKCHEVY) SACHI GRACE ([id number]) 1935 F NFR Date Time Provider Department 09/09/20 8:00 AM REM DEVICE CK AKEPD During your visit today, we recorded the following information about you: Referring Provider: KRYS REED [[id number]] Allergies As of Date: 09/09/2020 Noted Allergy Reaction VICODIN (HYDROCODONE-ACETAMINOPHE*05/04/2013 8 - GI Upset COCAMIDOPROPYL BETAINE 07/27/2020 2 - Rash Comments: itching, rash CODEINE 03/19/2007 8 - GI Upset PERCOCET (OXYCODONE-ACETAMINOPHEN)04/22/2013 8 - GI Upset SULFA (SULFONAMIDE ANTIBIOTICS) 03/19/2007 4 - Hives 7 - Swelling Comments: lips swelled up TETRACYCLINE 04/29/2019 8 - GI Upset Date Reviewed: 08/11/2020 Reviewed by: Mandy ([facility]) SABRINA Chan - Fully Assessed Reason for [...] 50 mcg by mouth once fidel* VITAMINS A,C,S-DSXQ-GFYKXP 7* Take by mouth. ACETAMINOPHEN 500 MG TABLET Take one(1) tablet every four* Problem List As Of Date 09/09/2020 Noted Resolved Unspecified constipation [K59.00] 04/30/2006 03/16/2016 More... PEPTIC ULCER NOS [K27.9] 03/19/2007 More... More... GENERALIZED ANXIETY DIS [F41.1] Generalized osteoarthrosis, unspecified site [M* 12/23/2015 More... Myalgia and myositis [KBA2444] 05/22/2017 More... Diverticulosis of large intestine [K57.30] [...] 07/27/2020 Encounter Status:Closed by PRECIOUS COPELAND on 09/12/20[facility] 08-10-2020 NoteProcedure (AKEPD) SACHI GRACE ([id number]) 1935 F NFR Date Time Provider Department 08/10/20 8:00 AM REM DEVICE CK AKEPD During your visit today, we recorded the following information about you: Referring Provider: KRYS REED [[id number]] Allergies As of Date: 08/10/2020 Noted Allergy [...] 50 mcg by mouth once fidel* VITAMINS A,C,L-UOOS-SKRAOV 7* Take by mouth. ACETAMINOPHEN 500 MG TABLET Take one(1) tablet every four* Problem List As Of Date 08/10/2020 Noted Resolved Unspecified constipation [K59.00] 04/30/2006 03/16/2016 More... PEPTIC ULCER NOS [K27.9] 03/19/2007 More... More... GENERALIZED ANXIETY DIS [F41.1] Generalized osteoarthrosis, unspecified site [M* 12/23/2015 More... Myalgia and myositis [ZHC2509] 05/22/2017 More... Diverticulosis of large intestine [K57.30] [...] 07/27/2020 Encounter Status:Closed by SOHA NGUYEN on 08/10/20[facility] 07-11-2020 NoteProcedure (AKEPD) SACHI GRACE ([id number]) 1935 F NFR Date Time Provider Department 07/11/20 8:00 AM REM DEVICE CK AKEPD During your visit today, we recorded the following information about you: Referring Provider: KRYS REED [[id number]] Allergies As of Date: 07/11/2020 Noted Allergy [...] 50 mcg by mouth once fidel* VITAMINS A,C,L-FKIM-OSAQNP 7* Take by mouth. ACETAMINOPHEN 500 MG TABLET Take one(1) tablet every four* Problem List As Of Date 07/11/2020 Noted Resolved Unspecified constipation [K59.00] 04/30/2006 03/16/2016 More... PEPTIC ULCER NOS [K27.9] 03/19/2007 More... More... GENERALIZED ANXIETY DIS [F41.1] Generalized osteoarthrosis, unspecified site [M* 12/23/2015 More... Myalgia and myositis [MRK2791] 05/22/2017 More... Diverticulosis of large intestine [K57.30] [...] un*04/22/2020 Encounter Status:Closed by KEVIN GOSS on 07/11/20[facility]07[facility] NoteProcedure (AKEPD) SACHI GRACE ([id number]) 1935 F NFR Date Time Provider Department 06/11/20 8:00 AM REM DEVICE CK AKEPD During your visit today, we recorded the following information about you: Referring Provider: KRYS REED [[id number]] Allergies As of Date: 06/11/2020 Noted Allergy [...] 50 mcg by mouth once fidel* VITAMINS A,C,P-LKKX-FJCYTJ 7* Take by mouth. ACETAMINOPHEN 500 MG TABLET Take one(1) tablet every four* GLYCOLAX 17 GRAM/DOSE ORAL PO* 1 cap full in 8 oz of liquid * Problem List As Of Date 06/11/2020 Noted Resolved Unspecified constipation [K59.00] 04/30/2006 03/16/2016 More... PEPTIC ULCER NOS [K27.9] 03/19/2007 More... More... GENERALIZED ANXIETY DIS [F41.1] Generalized osteoarthrosis, unspecified site [M* 12/23/2015 More... Myalgia and myositis [VMC9935] 05/22/2017 More... Diverticulosis of large intestine [K57.30] [...] un*04/22/2020 Encounter Status:Closed by DION CROWELL on 06/13/20[facility] NoteProcedure (AKEPD) SACHI GRACE ([id number]) 1935 F NFR Date Time Provider Department 05/12/20 8:00 AM REM DEVICE CK AKEPD During your visit today, we recorded the following information about you: Referring Provider: KRYS REED [[id number]] Allergies As of Date: 05/12/2020 Noted Allergy Reaction VICODIN (HYDROCODONE-ACETAMINOPHE*05/04/2013 8 - GI Upset CODEINE 03/19/2007 8 - GI Upset PERCOCET (OXYCODONE-ACETAMINOPHEN)04/22/2013 8 - GI Upset SULFA (SULFONAMIDE ANTIBIOTICS) 03/19/2007 4 - Hives 7 - Swelling Comments: lips swelled up TETRACYCLINE 04/29/2019 8 - GI Upset Date Reviewed: 04/18/2020 Reviewed by: Mandy ([facility]) SABRINA Chan - Fully Assessed Reason for [...] 50 mcg by mouth once fidel* VITAMINS A,C,S-SWQV-GSUAJX 7* Take by mouth. ACETAMINOPHEN 500 MG TABLET Take one(1) tablet every four* GLYCOLAX 17 GRAM/DOSE ORAL PO* 1 cap full in 8 oz of liquid * Problem List As Of Date 05/12/2020 Noted Resolved Unspecified constipation [K59.00] 04/30/2006 03/16/2016 More... PEPTIC ULCER NOS [K27.9] 03/19/2007 More... More... GENERALIZED ANXIETY DIS [F41.1] Generalized osteoarthrosis, unspecified site [M* 12/23/2015 More... Myalgia and myositis [[id number]] 05/22/2017 More... Diverticulosis of large intestine [K57.30] [...] un*04/22/2020 Encounter Status:Closed by PRECIOUS COPELAND on 05/12/20[facility] 03-20-2018 History of Past illness Narrative* Problem Noted Date Resolved Date Nausea 03/20/2018 04/29/2019 Overview: Added automatically from request for surgery [id number] Ageusia 02/23/2016 05/22/2017 Glossitis 02/23/2016 05/22/2017 Syncope and collapse 04/30/2014 12/23/2015 Overview: Armstrong lightheaded, walked to cough and passed out [...] 03/19/2007 Overview: ablation 01/2002 ( in [place], [facility]), follows with Dr. Moreno (prn only) documented as of this encounter (statuses as of 04/06/2022) [facility] of [facility] Narrative* Problem Noted Date Resolved Date Nausea 03/20/2018 04/29/2019 Overview: Added automatically from request for surgery [id number] Ageusia 02/23/2016 05/22/2017 Glossitis 02/23/2016 05/22/2017 Syncope and collapse 04/30/2014 12/23/2015 Overview: Armstrong lightheaded, walked to cough and passed out [...] 05/22/2017 Chronic maxillary sinusitis 02/13/200805/03 Overview: Linus; savana Casanova re: ? Meniere's [...] tachycardia 03/19/2007 Overview: ablation 01/2002 ( in [place], [facility]), follows with Dr. Moreno (prn only) documented as of this encounter (statuses as of 04/06/2022) [facility] History of Past illness Narrative* Problem Noted Date Resolved Date Nausea 03/20/2018 04/29/2019 Overview: Added automatically from request for surgery [id number] Ageusia 02/23/2016 05/22/2017 Glossitis 02/23/2016 05/22/2017 Syncope and collapse 04/30/2014 12/23/2015 Overview: Armstrong lightheaded, walked to cough and passed out [...] 03/19/2007 Overview: ablation 01/2002 (Dr. joseph pandey, [facility]), follows with Dr. Moreno (prn only) documented as of this encounter (statuses as of 04/19/2022) [facility]2018 History of Past illness Narrative* Problem Noted Date Resolved Date Nausea 03/20/2018 04/29/2019 Overview: Added automatically from request for surgery [id number] Ageusia 02/23/2016 05/22/2017 Glossitis 02/23/2016 05/22/2017 Syncope and collapse 04/30/2014 12/23/2015 Overview: Armstrong lightheaded, walked to cough and passed out [...] tachycardia 03/19/2007 Overview: ablation 01/2002 ( in [place], [facility]), follows with Dr. Moreno (prn only) documented as of this encounter (statuses as of 04/23/2022) [facility] History of Past illness Narrative* Problem Noted Date Resolved Date Nausea 03/20/2018 04/29/2019 Overview: Added automatically from request for surgery [id number] Ageusia 02/23/2016 05/22/2017 Glossitis 02/23/2016 05/22/2017 Syncope and collapse 04/30/2014 12/23/2015 Overview: Armstrong lightheaded, walked to cough and passed out [...] tachycardia 03/19/2007 Overview: ablation 01/2002 ( in [place], [facility]), follows with Dr. Moreno (prn only) documented as of this encounter (statuses as of 06/19/2022) [facility] History of Past illness Narrative* Problem Noted Date Resolved Date Nausea 03/20/2018 04/29/2019 Overview: Added automatically from request for surgery [id number] Ageusia 02/23/2016 05/22/2017 Glossitis 02/23/2016 05/22/2017 Syncope and collapse 04/30/2014 12/23/2015 Overview: Armstrong lightheaded, walked to cough and passed out [...] 03/19/2007 Overview: ablation 01/2002 ( in [place], [facility]), follows with Dr. Moreno (prn only) documented as of this encounter (statuses as of 07/30/2022) [facility] History of Past illness Narrative* Problem Noted Date Resolved Date Nausea 03/20/2018 04/29/2019 Overview: Added automatically from request for surgery [id number] Ageusia 02/23/2016 05/22/2017 Glossitis 02/23/2016 05/22/2017 Syncope and collapse 04/30/2014 12/23/2015 Overview: Armstrong lightheaded, walked to cough and passed out [...] 05/22/2017 Chronic maxillary sinusitis 02/13/200805/03 Overview: Linus; savana Casanova re: ? Meniere's 05/09; LOW-SODIUM DIET (2 g, consider Dyazide) Unspecified constipation 04/30/2006 016 Overview: Dr. uJarez Peptic ulcer, unspecified si te, unspecified as [...] tachycardia 03/19/2007 Overview: ablation 01/2002 ( in [place], [facility]), follows with Dr. Moreno (prn only) documented as of this encounter (statuses as of 08/09/2022) [facility] History of Past illness Narrative* Problem Noted Date Resolved Date Nausea 03/20/2018 04/29/2019 Overview: Added automatically from request for surgery [id number] Ageusia 02/23/2016 05/22/2017 Glossitis 02/23/2016 05/22/2017 Syncope and collapse 04/30/2014 12/23/2015 Overview: Armstrong lightheaded, walked to cough and passed out [...] 03/19/2007 Overview: ablation 01/2002 (Dr. joseph pandey, [facility]), follows with Dr. Moreno (prn only) documented as of this encounter (statuses as of 08/14/2022) [facility] History of Past illness Narrative* Problem Noted Date Resolved Date Nausea 03/20/2018 04/29/2019 Overview: Added automatically from request for surgery [id number] Ageusia 02/23/2016 05/22/2017 Glossitis 02/23/2016 05/22/2017 Syncope and collapse 04/30/2014 12/23/2015 Overview: Armstrong lightheaded, walked to cough and passed out [...] tachycardia 03/19/2007 Overview: ablation 01/2002 ( in [place], [facility]), follows with Dr. Moreno (prn only) documented as of this encounter (statuses as of 09/03/2022) [facility] History of Past illness Narrative* Problem Noted Date Resolved Date Nausea 03/20/2018 04/29/2019 Overview: Added automatically from request for surgery [id number] Ageusia 02/23/2016 05/22/2017 Glossitis 02/23/2016 05/22/2017 Syncope and collapse 04/30/2014 12/23/2015 Overview: Armstrong lightheaded, walked to cough and passed out [...] tachycardia 03/19/2007 Overview: ablation 01/2002 ( in [place], [facility]), follows with Dr. Moreno (prn only) documented as of this encounter (statuses as of 10/02/2022) [facility] History of Past illness Narrative* Problem Noted Date Resolved Date Nausea 03/20/2018 04/29/2019 Overview: Added automatically from request for surgery [id number] Ageusia 02/23/2016 05/22/2017 Glossitis 02/23/2016 05/22/2017 Syncope and collapse 04/30/2014 12/23/2015 Overview: Armstrong lightheaded, walked to cough and passed out [...] 03/19/2007 Overview: ablation 01/2002 ( in [place], [facility]), follows with Dr. Moreno (prn only) documented as of this encounter (statuses as of 10/16/2022) [facility] History of Past illness Narrative* Problem Noted Date Resolved Date Nausea 03/20/2018 04/29/2019 Overview: Added automatically from request for surgery [id number] Ageusia 02/23/2016 05/22/2017 Glossitis 02/23/2016 05/22/2017 Syncope and collapse 04/30/2014 12/23/2015 Overview: Armstrong lightheaded, walked to cough and passed out [...] unspecified 05/20/2008 0 03/16/2016 Overview: Dr. Torres Csaanova, low-sodium diet, consider Dyazide if worse, per 05/09 Disturbances of sensation of smell and taste 05/22/2017 Chronic maxillary sinusitis 02/13/200805/03 Overview: Linus; savana Casanova re: ? Meniere's [...] tachycardia 03/19/2007 Overview: ablation 01/2002 ( in [place], [facility]), follows with Dr. Moreno (prn only) documented as of this encounter (statuses as of 11/06/2022) [facility] History of Past illness Narrative* Problem Noted Date Resolved Date Nausea 03/20/2018 04/29/2019 Overview: Added automatically from request for surgery [id number] Ageusia 02/23/2016 05/22/2017 Glossitis 02/23/2016 05/22/2017 Syncope and collapse 04/30/2014 12/23/2015 Overview: Armstrong lightheaded, walked to cough and passed out [...] 03/19/2007 Overview: ablation 01/2002 (Dr. joseph pandey, [facility]), follows with Dr. Moreno (prn only) documented as of this encounter (statuses as of 11/09/2022) [facility] History of Past illness Narrative* Problem Noted Date Resolved Date Nausea 03/20/2018 04/29/2019 Overview: Added automatically from request for surgery [id number] Ageusia 02/23/2016 05/22/2017 Glossitis 02/23/2016 05/22/2017 Syncope and collapse 04/30/2014 12/23/2015 Overview: Armstrong lightheaded, walked to cough and passed out [...] tachycardia 03/19/2007 Overview: ablation 01/2002 ( in [place], [facility]), follows with Dr. Moreno (prn only) documented as of this encounter (statuses as of 11/09/2022) [facility] History of Past illness Narrative* Problem Noted Date Resolved Date Nausea 03/20/2018 04/29/2019 Overview: Added automatically from request for surgery [id number] Ageusia 02/23/2016 05/22/2017 Glossitis 02/23/2016 05/22/2017 Syncope and collapse 04/30/2014 12/23/2015 Overview: Armstrong lightheaded, walked to cough and passed out [...] tachycardia 03/19/2007 Overview: ablation 01/2002 ( in [place], [facility]), follows with Dr. Moreno (prn only) documented as of this encounter (statuses as of 11/13/2022) [facility] History of Past illness Narrative* Problem Noted Date Resolved Date Nausea 03/20/2018 04/29/2019 Overview: Added automatically from request for surgery [id number] Ageusia 02/23/2016 05/22/2017 Glossitis 02/23/2016 05/22/2017 Syncope and collapse 04/30/2014 12/23/2015 Overview: Armstrong lightheaded, walked to cough and passed out [...] 03/19/2007 Overview: ablation 01/2002 ( in [place], [facility]), follows with Dr. Moreno (prn only) documented as of this encounter (statuses as of 11/14/2022) [facility] History of Past illness Narrative* Problem Noted Date Resolved Date Nausea 03/20/2018 04/29/2019 Overview: Added automatically from request for surgery [id number] Ageusia 02/23/2016 05/22/2017 Glossitis 02/23/2016 05/22/2017 Syncope and collapse 04/30/2014 12/23/2015 Overview: Armstrong lightheaded, walked to cough and passed out [...] 05/22/2017 Chronic maxillary sinusitis 02/13/200805/03 Overview: Linus; savana Casanova re: ? Meniere's [...] tachycardia 03/19/2007 Overview: ablation 01/2002 ( in [place], [facility]), follows with Dr. Moreno (prn only) documented as of this encounter (statuses as of 11/19/2022) [facility] History of Past illness Narrative* Problem Noted Date Resolved Date Nausea 03/20/2018 04/29/2019 Overview: Added automatically from request for surgery [id number] Ageusia 02/23/2016 05/22/2017 Glossitis 02/23/2016 05/22/2017 Syncope and collapse 04/30/2014 12/23/2015 Overview: Armstrong lightheaded, walked to cough and passed out [...] 03/19/2007 Overview: ablation 01/2002 (Dr. joseph pandey, [facility]), follows with Dr. Moreno (prn only) documented as of this encounter (statuses as of 12/02/2022) [facility] History of Past illness Narrative* Problem Noted Date Resolved Date Nausea 03/20/2018 04/29/2019 Overview: Added automatically from request for surgery [id number] Ageusia 02/23/2016 05/22/2017 Glossitis 02/23/2016 05/22/2017 Syncope and collapse 04/30/2014 12/23/2015 Overview: Armstrong lightheaded, walked to cough and passed out [...] tachycardia 03/19/2007 Overview: ablation 01/2002 ( in [place], [facility]), follows with Dr. Moreno (prn only) documented as of this encounter (statuses as of 12/14/2022) [facility] History of Past illness Narrative* Problem Noted Date Resolved Date Nausea 03/20/2018 04/29/2019 Overview: Added automatically from request for surgery [id number] Ageusia 02/23/2016 05/22/2017 Glossitis 02/23/2016 05/22/2017 Syncope and collapse 04/30/2014 12/23/2015 Overview: Armstrong lightheaded, walked to cough and passed out [...] tachycardia 03/19/2007 Overview: ablation 01/2002 ( in [place], [facility]), follows with Dr. Moreno (prn only) documented as of this encounter (statuses as of 12/25/2022) [facility] History of Past illness Narrative* Problem Noted Date Resolved Date Nausea 03/20/2018 04/29/2019 Overview: Added automatically from request for surgery [id number] Ageusia 02/23/2016 05/22/2017 Glossitis 02/23/2016 05/22/2017 Syncope and collapse 04/30/2014 12/23/2015 Overview: Armstrong lightheaded, walked to cough and passed out [...] 03/19/2007 Overview: ablation 01/2002 ( in [place], [facility]), follows with Dr. Moreno (prn only) documented as of this encounter (statuses as of 01/05/2023) [facility] History of Past illness Narrative* Problem Noted Date Resolved Date Nausea 03/20/2018 04/29/2019 Overview: Added automatically from request for surgery [id number] Ageusia 02/23/2016 05/22/2017 Glossitis 02/23/2016 05/22/2017 Syncope and collapse 04/30/2014 12/23/2015 Overview: Armstrong lightheaded, walked to cough and passed out [...] 05/22/2017 Chronic maxillary sinusitis 02/13/200805/03 Overview: Linus; savana Casanova re: ? Meniere's [...] tachycardia 03/19/2007 Overview: ablation 01/2002 ( in [place], [facility]), follows with Dr. Moreno (prn only) documented as of this encounter (statuses as of 01/22/2023) [facility] History of Past illness Narrative* Problem Noted Date Resolved Date Nausea 03/20/2018 04/29/2019 Overview: Added automatically from request for surgery [id number] Ageusia 02/23/2016 05/22/2017 Glossitis 02/23/2016 05/22/2017 Syncope and collapse 04/30/2014 12/23/2015 Overview: Armstrong lightheaded, walked to cough and passed out [...] 03/19/2007 Overview: ablation 01/2002 (Dr. joseph pandey, [facility]), follows with Dr. Moreno (prn only) documented as of this encounter (statuses as of 01/25/2023) [facility] History of Past illness Narrative* Problem Noted Date Resolved Date Nausea 03/20/2018 04/29/2019 Overview: Added automatically from request for surgery [id number] Ageusia 02/23/2016 05/22/2017 Glossitis 02/23/2016 05/22/2017 Syncope and collapse 04/30/2014 12/23/2015 Overview: Armstrong lightheaded, walked to cough and passed out [...] tachycardia 03/19/2007 Overview: ablation 01/2002 ( in [place], [facility]), follows with Dr. Moreno (prn only) documented as of this encounter (statuses as of 02/13/2023) [facility] History of Past illness Narrative* Problem Noted Date Resolved Date Nausea 03/20/2018 04/29/2019 Overview: Added automatically from request for surgery [id number] Ageusia 02/23/2016 05/22/2017 Glossitis 02/23/2016 05/22/2017 Syncope and collapse 04/30/2014 12/23/2015 Overview: Armstrong lightheaded, walked to cough and passed out [...] tachycardia 03/19/2007 Overview: ablation 01/2002 ( in [place], [facility]), follows with Dr. Moreno (prn only) documented as of this encounter (statuses as of 05/24/2023) [facility] History of Past illness Narrative* Problem Noted Date Resolved Date Nausea 03/20/2018 04/29/2019 Overview: Added automatically from request for surgery [id number] Ageusia 02/23/2016 05/22/2017 Glossitis 02/23/2016 05/22/2017 Syncope and collapse 04/30/2014 12/23/2015 Overview: Armstrong lightheaded, walked to cough and passed out [...] 03/19/2007 Overview: ablation 01/2002 ( in [place], [facility]), follows with Dr. Moreno (prn only) documented as of this encounter (statuses as of 05/29/2023) [facility] History of Past illness Narrative* Problem Noted Date Resolved Date Nausea 03/20/2018 04/29/2019 Overview: Added automatically from request for surgery [id number] Ageusia 02/23/2016 05/22/2017 Glossitis 02/23/2016 05/22/2017 Syncope and collapse 04/30/2014 12/23/2015 Overview: Armstrong lightheaded, walked to cough and passed out [...] 05/22/2017 Chronic maxillary sinusitis 02/13/200805/03 Overview: Linus; savana Casanova re: ? Meniere's [...] tachycardia 03/19/2007 Overview: ablation 01/2002 ( in [place], [facility]), follows with Dr. Moreno (prn only) documented as of this encounter (statuses as of 05/30/2023) [facility] History of Past illness Narrative* Problem Noted Date Resolved Date Nausea 03/20/2018 04/29/2019 Overview: Added automatically from request for surgery [id number] Ageusia 02/23/2016 05/22/2017 Glossitis 02/23/2016 05/22/2017 Syncope and collapse 04/30/2014 12/23/2015 Overview: Armstrong lightheaded, walked to cough and passed out [...] 03/19/2007 Overview: ablation 01/2002 (Dr. joseph pandey, [facility]), follows with Dr. Moreno (prn only) documented as of this encounter (statuses as of 06/03/2023) [facility] History of Past illness Narrative* Problem Noted Date Diagnosed Date Resolved Date Nausea 03/20/2018 04/29/2019 Overview: Added automatically from request for surgery [id number] Ageusia 02/23/2016 05/22/2017 Glossitis 02/23/2016 05/22/2017 Syncope and collapse 04/30/2014 016 Overview: Armstrong lightheaded, walked to cough and passed out [...] tachycardia 03/19/2007 Overview: ablation 01/2002 ( in [place], [facility]), follows with Dr. Moreno (prn only) documented as of this encounter (statuses as of 06/08/2023) [facility] History of Past illness Narrative* Problem Noted Date Diagnosed Date Resolved Date Nausea 03/20/2018 04/29/2019 Overview: Added automatically from request for surgery [id number] Ageusia 02/23/2016 05/22/2017 Glossitis 02/23/2016 05/22/2017 Syncope and collapse 04/30/2014 016 Overview: Armstrong lightheaded, walked to cough and passed out [...] 03/19/2007 Overview: ablation 01/2002 ( in [place], [facility]), follows with Dr. Moreno (prn only) documented as of this encounter (statuses as of 07/03/2023) [facility] History of Past illness Narrative* Problem Noted Date Diagnosed Date Resolved Date Nausea 03/20/2018 04/29/2019 Overview: Added automatically from request for surgery [id number] Ageusia 02/23/2016 05/22/2017 Glossitis 02/23/2016 05/22/2017 Syncope and collapse 04/30/2014 016 Overview: Armstrong lightheaded, walked to cough and passed out [...] 03/19/2007 Overview: ablation 01/2002 ( in [place], [facility]), follows with Dr. Moreno (prn only) documented as of this encounter (statuses as of 07/06/2023) [facility] of Past illness Narrative* Problem Noted Date Diagnosed Date Resolved Date Nausea 03/20/2018 04/29/2019 Overview: Added automatically from request for surgery [id number] Ageusia 02/23/2016 05/22/2017 Glossitis 02/23/2016 05/22/2017 Syncope and collapse 04/30/2014 016 Overview: Armstrong lightheaded, walked to cough and passed out [...] tachycardia 03/19/2007 Overview: ablation 01/2002 ( in [place], [facility]), follows with Dr. Moreno (prn only) documented as of this encounter (statuses as of 08/13/2023) [facility] of Past illness Narrative* Problem Noted Date Diagnosed Date Resolved Date Nausea 03/20/2018 04/29/2019 Overview: Added automatically from request for surgery [id number] Ageusia 02/23/2016 05/22/2017 Glossitis 02/23/2016 05/22/2017 Syncope and collapse 04/30/2014 016 Overview: Armstrong lightheaded, walked to cough and passed out [...] 03/19/2007 Overview: ablation 01/2002 (Dr. joseph pandey, [facility]), follows with Dr. Moreno (prn only) documented as of this encounter (statuses as of 08/20/2023) [facility] History of Past illness Narrative* Problem Noted Date Diagnosed Date Resolved Date Nausea 03/20/2018 04/29/2019 Overview: Added automatically from request for surgery [id number] Ageusia 02/23/2016 05/22/2017 Glossitis 02/23/2016 05/22/2017 Syncope and collapse 04/30/2014 016 Overview: Armstrong lightheaded, walked to cough and passed out [...] 03/19/2007 Overview: ablation 01/2002 (Dr. joseph pandey, [facility]), follows with Dr. Moreno (prn only) documented as of this encounter (statuses as of 08/21/2023) [facility] of Past illness Narrative* Problem Noted Date Diagnosed Date Resolved Date Nausea 03/20/2018 04/29/2019 Overview: Added automatically from request for surgery [id number] Ageusia 02/23/2016 05/22/2017 Glossitis 02/23/2016 05/22/2017 Syncope and collapse 04/30/2014 016 Overview: Armstrong lightheaded, walked to cough and passed out [...] 03/19/2007 Overview: ablation 01/2002 (Dr. joseph pandey, [facility]), follows with Dr. Moreno (prn only) documented as of this encounter (statuses as of 09/23/2023) [facility] of Past illness Narrative* Problem Noted Date Diagnosed Date Resolved Date Nausea 03/20/2018 04/29/2019 Overview: Added automatically from request for surgery [id number] Ageusia 02/23/2016 05/22/2017 Glossitis 02/23/2016 05/22/2017 Syncope and collapse 04/30/2014 016 Overview: Armstrong lightheaded, walked to cough and passed out [...] 03/19/2007 Overview: ablation 01/2002 ( in [place], [facility]), follows with Dr. Moreno (prn only) documented as of this encounter (statuses as of 10/04/2023) [facility] Past illness Narrative* Problem Noted Date Diagnosed Date Resolved Date Nausea 03/20/2018 04/29/2019 Overview: Added automatically from request for surgery [id number] Ageusia 02/23/2016 05/22/2017 Glossitis 02/23/2016 05/22/2017 Syncope and collapse 04/30/2014 016 Overview: Armstrong lightheaded, walked to cough and passed out [...] tachycardia 03/19/2007 Overview: ablation 01/2002 ( in [place], [facility]), follows with Dr. Moreno (prn only) documented as of this encounter (statuses as of 11/16/2023) [facility] Past illness Narrative* Problem Noted Date Diagnosed Date Resolved Date Nausea 03/20/2018 04/29/2019 Overview: Added automatically from request for surgery [id number] Ageusia 02/23/2016 05/22/2017 Glossitis 02/23/2016 05/22/2017 Syncope and collapse 04/30/2014 016 Overview: Armstrong lightheaded, walked to cough and passed out [...] 03/19/2007 Overview: ablation 01/2002 ( in [place], [facility]), follows with Dr. Moreno (prn only) documented as of this encounter (statuses as of 01/10/2024) [facility] Past illness Narrative* Problem Noted Date Diagnosed Date Resolved Date Nausea 03/20/2018 04/29/2019 Overview: Added automatically from request for surgery [id number] Ageusia 02/23/2016 05/22/2017 Glossitis 02/23/2016 05/22/2017 Syncope and collapse 04/30/2014 016 Overview: Armstrong lightheaded, walked to cough and passed out [...] 03/19/2007 Overview: ablation 01/2002 (Dr. joseph pandey, [facility]), follows with Dr. Moreno (prn only) documented as of this encounter (statuses as of 01/15/2024) [facility] Past illness Narrative* Problem Noted Date Diagnosed Date Resolved Date Nausea 03/20/2018 04/29/2019 Overview: Added automatically from request for surgery [id number] Ageusia 02/23/2016 05/22/2017 Glossitis 02/23/2016 05/22/2017 Syncope and collapse 04/30/2014 016 Overview: Armstrong lightheaded, walked to cough and passed out [...] tachycardia 03/19/2007 Overview: ablation 01/2002 ( in [place], [facility]), follows with Dr. Moreno (prn only) documented as of this encounter (statuses as of 01/17/2024) [facility] Past illness Narrative* Problem Noted Date Diagnosed Date Resolved Date Nausea 03/20/2018 04/29/2019 Overview: Added automatically from request for surgery [id number] Ageusia 02/23/2016 05/22/2017 Glossitis 02/23/2016 05/22/2017 Syncope and collapse 04/30/2014 016 Overview: Armstrong lightheaded, walked to cough and passed out [...] 03/19/2007 Overview: ablation 01/2002 (Dr. joseph pandey, [facility]), follows with Dr. Moreno (prn only) documented as of this encounter (statuses as of 01/18/2024) [facility] Past [facility] Narrative* Problem Noted Date Diagnosed Date Resolved Date Nausea 03/20/2018 04/29/2019 Overview: Added automatically from request for surgery [id number] Ageusia 02/23/2016 05/22/2017 Glossitis 02/23/2016 05/22/2017 Syncope and collapse 04/30/2014 016 Overview: Armstrong lightheaded, walked to cough and passed out [...] 03/19/2007 Overview: ablation 01/2002 ( in [place], [facility]), follows with Dr. Moreno (prn only) documented as of this encounter (statuses as of 01/31/2024) [facility] Past illness Narrative* Problem Noted Date Diagnosed Date Resolved Date Nausea 03/20/2018 04/29/2019 Overview: Added automatically from request for surgery [id number] Ageusia 02/23/2016 05/22/2017 Glossitis 02/23/2016 05/22/2017 Syncope and collapse 04/30/2014 016 Overview: Armstrong lightheaded, walked to cough and passed out [...] 03/19/2007 Overview: ablation 01/2002 (Dr. joseph pandey, [facility]), follows with Dr. Moreno (prn only) documented as of this encounter (statuses as of 01/31/2024) [facility] Narrative* Problem Noted Date Diagnosed Date Resolved Date Nausea 03/20/2018 04/29/2019 Overview: Added automatically from request for surgery [id number] Ageusia 02/23/2016 05/22/2017 Glossitis 02/23/2016 05/22/2017 Syncope and collapse 04/30/2014 016 Overview: Armstrong lightheaded, walked to cough and passed out [...] tachycardia 03/19/2007 Overview: ablation 01/2002 ( in [place], [facility]), follows with Dr. Moreno (prn only) documented as of this encounter (statuses as of 02/06/2024) [facility]2018 History of Past illness Narrative* Problem Noted Date Diagnosed Date Resolved Date Nausea 03/20/2018 04/29/2019 Overview: Added automatically from request for surgery [id number] Ageusia 02/23/2016 05/22/2017 Glossitis 02/23/2016 05/22/2017 Syncope and collapse 04/30/2014 016 Overview: Armstrong lightheaded, walked to cough and passed out [...] supraventricular tachycardia 03/19/2007 Overview: ablation 01/2002 (Dr. ruiz [place], [facility]), follows with Dr. Moreno (prn only) documented as of this encounter (statuses as of 02/07/2024) [facility]04-19[facility]2018 History of Past illness Narrative* Problem Noted Date Diagnosed Date Resolved Date Nausea 03/20/2018 04/29/2019 Overview: Added automatically from request for surgery [id number] Ageusia 02/23/2016 05/22/2017 Glossitis 02/23/2016 05/22/2017 Syncope and collapse 04/30/2014 016 Overview: Armstrong lightheaded, walked to cough and passed out [...] 03/19/2007 Overview: ablation 01/2002 ( in [place], [facility]), follows with Dr. Moreno (prn only) documented as of this encounter (statuses as of 02/07/2024) [facility]2018 History of Past illness Narrative* Problem Noted Date Diagnosed Date Resolved Date Nausea 03/20/2018 04/29/2019 Overview: Added automatically from request for surgery [id number] Ageusia 02/23/2016 05/22/2017 Glossitis 02/23/2016 05/22/2017 Syncope and collapse 04/30/2014 016 Overview: Armstrong lightheaded, walked to cough and passed out [...] tachycardia 03/19/2007 Overview: ablation 01/2002 ( in [place], [facility]), follows with Dr. Moreno (prn only) documented as of this encounter (statuses as of 03/12/2024) [facility] History of Past illness Narrative* Problem Noted Date Diagnosed Date Resolved Date Nausea 03/20/2018 04/29/2019 Overview: Added automatically from request for surgery [id number] Ageusia 02/23/2016 05/22/2017 Glossitis 02/23/2016 05/22/2017 Syncope and collapse 04/30/2014 016 Overview: Armstrong lightheaded, walked to cough and passed out [...] 03/19/2007 Overview: ablation 01/2002 (Dr. joseph pand[place], [facility]), follows with Dr. Moreno (prn only) documented as of this encounter (statuses as of 03/18/2024) [facility] Anxiety with depression- Primary [facility]* Diagnosis RLS (restless legs syndrome)- Primary Restless legs syndrome (RLS) Iron deficiency Iron deficiency anemia, unspecified Generalized anxiety disorder [facility]* Diagnosis Iron deficiency anemia, unspecified iron deficiency anemia type- Primary [facility]* Diagnosis Lower respiratory infection- Primary Other diseases of respiratory system, not elsewhere classified Iron deficiency anemia, unspecified iron deficiency anemia type documented in this encounter [facility] note* Diagnosis Rapid heart rate- Primary Tachycardia, unspecified SOB (shortness of breath) Shortness of breath Iron deficiency Iron deficiency anemia, unspecified [facility]* Diagnosis Acute midline low back pain without sciatica documented in this encounter [facility] note* Diagnosis Acute midline low back pain without sciatica- Primary Rectal pain Anal or rectal pain documented in this encounter [facility] noteNo assessment information availableWTrumbull [facility] Work Phone: Evaluation note* Diagnosis Iron deficiency anemia, unspecified iron deficiency anemia type- Primary documented in this encounter [facility] note* Diagnosis RLS (restless legs syndrome) Restless legs syndrome (RLS) documented in this encounter [facility] note* Diagnosis Bacterial sinusitis- Primary Unspecified sinusitis (chronic) documented in this encounter [facility] note* Diagnosis Disorder of bone and cartilage- [...] deficiency anemia, unspecified documented in this encounter [facility] note* Diagnosis Generalized anxiety disorder- Primary Palpitations Lightheadedness Dizziness and giddiness SOB (shortness of breath) Shortness of breath documented in this encounter [facility] note* Diagnosis Pencilling of stools- Primary Abnormal feces Acquired hypothyroidism Unspecified hypothyroidism Elevated sed rate Elevated sedimentation rate documented in this encounter [facility] note* Diagnosis Pencilling of stools- Primary Abnormal [...] legs syndrome (RLS) documented in this encounter [facility] note* Diagnosis Erosive (osteo)arthritis- Primary Elevated sed rate Elevated sedimentation rate documented in this encounter [facility] note* Diagnosis RLS (restless legs syndrome)- Primary Restless legs syndrome (RLS) History of total bilateral knee replacement Paresthesia Disturbance of skin sensation Family history of iron deficiency Family history of anemia documented in this encounter [facility] note* Diagnosis Paresthesia Disturbance of skin sensation documented in this encounter [facility] note* Diagnosis Encounter for screening mammogram for malignant neoplasm of breast- Primary Other screening mammogram documented in this encounter [facility] note* Diagnosis RLS (restless legs syndrome) Restless legs syndrome (RLS) documented in this encounter [facility] note* Diagnosis Palpitations- Primary Shortness of breath documented in this encounter [facility] note* Diagnosis SVT (supraventricular tachycardia) (HCC)- Primary Other specified cardiac dysrhythmias Acute constipation Unspecified constipation Nausea Nausea alone documented in this encounter [facility] note* Diagnosis Chronic constipation- Primary Unspecified constipation documented in this encounter [facility] note* Diagnosis Arm laceration, left, initial encounter- Primary Encounter for immunization Need for other specified prophylactic vaccination against single bacterial disease documented in this encounter [facility] note* Diagnosis Acute constipation- Primary Unspecified constipation SVT (supraventricular tachycardia) (HCC) Other specified cardiac dysrhythmias RUY (generalized anxiety disorder) Generalized anxiety disorder Benzodiazepine dependence (HCC) Sedative, hypnotic or anxiolytic dependence, unspecified [facility] Diagnosis Acute constipation- Primary Unspecified constipation Abnormal weight loss Loss of weight Constipation, unspecified constipation type [facility] this [facility]* Diagnosis Acute constipation- Primary Unspecified constipation Anxiety due to invasive procedure RLS (restless legs syndrome) Restless legs syndrome (RLS) Benzodiazepine dependence (HCC) Sedative, hypnotic or anxiolytic dependence, unspecified documented in this encounter [facility] note* Diagnosis Acute constipation Unspecified constipation Abnormal weight loss Loss of weight Constipation, unspecified constipation type [facility] Diagnosis RLS (restless legs syndrome) Restless legs syndrome (RLS) [facility]* Diagnosis Benzodiazepine dependence (HCC)- Primary Sedative, hypnotic or anxiolytic dependence, unspecified RLS (restless legs syndrome) Restless legs syndrome (RLS) Pencilling of stools Abnormal feces Altered bowel habits Other symptoms involving digestive system documented in this encounter [facility] note* Diagnosis Anxiety- Primary Anxiety state, unspecified [facility] Diagnosis Acquired hypothyroidism Unspecified hypothyroidism [facility] Diagnosis Abnormal weight loss Loss of weight Pancreatic lesion Unspecified disease of pancreas [facility] Diagnosis Acute constipation Unspecified constipation [facility]* Diagnosis Chronic constipation- Primary Unspecified constipation Pancreatic lesion Unspecified disease of pancreas [facility]* Diagnosis Pencilling of stools Abnormal feces [facility] Diagnosis Burning mouth syndrome- Primary Glossodynia [facility] Diagnosis Lower respiratory infection Other diseases of respiratory system, not elsewhere classified [facility] Diagnosis Acute midline low back pain without sciatica [facility]* Diagnosis 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 Hypothyroidism, acquired Unspecified hypothyroidism Fatigue, unspecified type [facility]* Diagnosis Change in bowel movement Other symptoms involving digestive system [facility]* Diagnosis Encounter for screening mammogram for malignant neoplasm of breast- Primary Other screening mammogram documented in this encounter [facility] note* Diagnosis 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 documented in this encounter [facility] note* Diagnosis Multinodular goiter- Primary Nontoxic multinodular goiter Painful mouth Other and unspecified diseases of the oral soft tissues Screening for lipid disorders Screening for diabetes mellitus Vitamin D deficiency Unspecified vitamin D deficiency Dyslipidemia Other and unspecified hyperlipidemia documented in this encounter [facility] note* Diagnosis Burning mouth syndrome Glossodynia documented in this encounter [facility] note* Diagnosis RLS (restless legs syndrome) Restless legs syndrome (RLS) documented in this encounter [facility] note* Diagnosis Hypothyroidism, acquired- Primary Unspecified hypothyroidism documented in this encounter [facility] note* Diagnosis Mononeuropathy- Primary Mononeuritis of unspecified site Abnormal serum level of lipase Other nonspecific abnormal serum enzyme levels Belching Flatulence, eructation, and gas pain Epigastric pain Abdominal pain, epigastric Acute peptic ulcer, site unspecified, without hemorrhage or perforation Pain in both knees, unspecified chronicity documented in this encounter [facility] note* Diagnosis Pain in both knees, unspecified chronicity documented in this encounter [facility] note* Diagnosis H pylori ulcer- Primary Gastric ulcer, unspecified as acute or chronic, without mention of hemorrhage, perforation, or obstruction documented in this encounter [facility] note* Diagnosis PUD (peptic ulcer disease)- Primary Peptic ulcer, unspecified site, unspecified as acute or chronic, without mention of hemorrhage, perforation, or obstruction H pylori ulcer Gastric ulcer, unspecified as acute or chronic, without mention of hemorrhage, perforation, or obstruction Belching Flatulence, eructation, and gas pain Hypothyroidism, acquired Unspecified hypothyroidism Burning mouth syndrome Glossodynia documented in this encounter [facility] note* Diagnosis Pancreatic cyst- Primary Cyst and pseudocyst of pancreas H. pylori infection Helicobacter pylori (H. pylori) documented in this encounter [facility] note* Diagnosis H. pylori infection Helicobacter pylori (H. pylori) documented in this encounter [facility] note* Diagnosis Other specified diseases of pancreas documented in this encounter [facility] note* Diagnosis RLS (restless legs syndrome) Restless legs syndrome (RLS) documented in this encounter [facility] note* Diagnosis Anxious mood- Primary Anxiety state, unspecified documented in this encounter [facility] note* Diagnosis Anxiety with depression- Primary 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) Malignant neoplasm of head of pancreas Screening for depression Urinary urgency Urgency of urination documented in this encounter [facility] note* Diagnosis Pancreatic adenocarcinoma (HCC)- Primary Malignant neoplasm of pancreas, part unspecified documented in this encounter [facility] note* Diagnosis Dry mouth- Primary Disturbance of salivary secretion Leg cramps Cramp of limb documented in this encounter [facility] note* Diagnosis Acute bilateral low back pain without sciatica- Primary documented in this encounter [facility] note* Diagnosis Pancreatic insufficiency (HCC)- Primary Other specified disease of pancreas documented in this encounter [facility] note* Diagnosis Coarse tremors- Primary Abnormal involuntary movements documented in this encounter [facility] note* Diagnosis Hypothyroidism, acquired- Primary Unspecified hypothyroidism documented in this encounter [facility] note* Diagnosis Medication management- Primary Encounter for long-term (current) use of other medications Coarse tremors Abnormal involuntary movements documented in this encounter [facility] note* Diagnosis Hyperlipidemia LDL goal <130- Primary Other and unspecified hyperlipidemia Mild intermittent asthma without complication (HCC) Unspecified asthma Paroxysmal supraventricular tachycardia (HCC) Paroxysmal supraventricular tachycardia RLS (restless legs syndrome) Restless legs syndrome (RLS) Acquired hypothyroidism Unspecified hypothyroidism Generalized anxiety disorder Malignant neoplasm of pancreas, unspecified location of malignancy (HCC) Iron deficiency anemia, unspecified iron deficiency anemia type Benzodiazepine dependence (HCC) Sedative, hypnotic or anxiolytic dependence, unspecified Primary hypertension Unspecified essential hypertension * Assessment & Plan Note - Anitra Mancera APRN.CNP - 06/14/2025 11:31 AM EDTAssociated Problem(s): Benzodiazepine dependence (HCC) Follows with psychiatrist documented in this encounter [facility] note* Diagnosis Hyperlipidemia LDL goal <130- Primary Other and unspecified hyperlipidemia Mild intermittent asthma without complication (HCC) Unspecified asthma Paroxysmal supraventricular tachycardia (HCC) Paroxysmal supraventricular tachycardia RLS (restless legs syndrome) Restless legs syndrome (RLS) Acquired hypothyroidism Unspecified hypothyroidism Generalized anxiety disorder Malignant neoplasm of pancreas, unspecified location of malignancy (HCC) Iron deficiency anemia, unspecified iron deficiency anemia type Benzodiazepine dependence (HCC) Sedative, hypnotic or anxiolytic dependence, unspecified Primary hypertension Unspecified essential hypertension RLS (restless legs syndrome) Restless legs syndrome (RLS) documented in this encounter [facility] Discharge instructions* Attachments The following attachments cannot be sent through Care Everywhere. * [facility] (Portuguese[facility] Outpatient Procedure (Routine) - Closed Specialty Diagnoses / Procedures Referred By Contac t Referred To Contact [facility] Diagnoses Rapid heart rate SOB (shortness of breath) Procedures ECG COMPLETE ECG ROUTINE ECG W/LEAST 12 LDS W/I&R Kevin Andersen PA-C [address] [place] [address] [facility] [place] [address] [place] [address] Referral ID Status Reason Start Date Expiration Date V isits Requested Visits Authorized [id number] Closed Auto-Generate d Referral 11/06/2022 11/06/2023 1 1 [facility] for referral (narrative)* Diagnostic Procedure Only (Routine) - Closed Specialty Diagnoses / Procedures Referred By Contac t Referred To Contact XR IMAGING Diagnoses Acute midline low back pain without sciatica Procedures XR LUMBAR GENERAL 3V AP/LAT/L5-S1 RADEX SPINE LUMBOSACRAL 2/3 VIEWS Kevin Andersen PA-C [address] [place] [address] Xr Imaging Referral ID Status Reason Start Date Expiration Date V isits Requested Visits Authorized [id number] Closed Auto-Generate d Referral 11/13/2022 12/13/2023 1 1 [facility] for referral (narrative)* Diagnostic Procedure Only (Routine) - Closed Specialty Diagnoses / Procedures Referred By Contac t Referred To Contact XR IMAGING Diagnoses Pencilling of stools Procedures XR ABDOMEN 1V SUPINE RADIOLOGIC EXAM ABDOMEN 1 VIEW Kevin Andersen PA-C [address] [place] [address] Xr Imaging Referral ID Status Reason Start Date Expiration Date V isits Requested Visits Authorized [id number] Closed Auto-Generate d Referral 05/28/2023 06/26/2024 1 1 [facility] for referral (narrative)* Outpatient Procedure (Routine) - Pending Review Specialty Diagnoses / Procedures Referred By Contac t Referred To Contact [facility] Diagnoses Paresthesia Procedures EMG(NEURO/NI) NERVE CONDUCTION STUDIES 9-10 STUDIES Graham Flores MD [address] [place] [address] [facility] [place] [address] [place] [address] Referral ID Status Reason Start Date Expiration Date Visits Requested Visits Authorized [id number] Pending Review Auto-Generat ed Referral 08/19/2023 08/19/2024 1 1 [facility] for referral (narrative)* Diagnostic Procedure Only (Routine) - Pending Review Specialty Diagnoses / Procedures Referred By Contac t Referred To Contact [facility] IM[facility] Diagnoses Encounter for screening mammogram for malignant neoplasm of breast Procedures KIP SCREENING SCREENING MAMMOGRAPHY BI 2-VIEW BREAST INC CAD Kevin Andersen PA-C [address] [place] [address] [facility] [address] [place] [address] Referral ID Status Reason Start Date Expiration Date Visits Requested Visits Authorized [id number] Pending Review Auto-Generat ed Referral 10/03/2023 11/01/2024 1 1 [facility] for referral (narrative)* Outpatient Procedure (Routine) - Authorized Specialty Diagnoses / Procedures Referred By Contac t Referred To Contact [facility] Diagnoses Palpitations Shortness of breath Procedures ECHO ECHO TTHRC R-T 2D W/WOM-MODE COMPL SPEC&COLR D Anitra Mancera APRN.BEND SORTER [address] [place] [address] [facility] [place] [address] [place] [address] Referral ID Status Reason Start Date Expiration Date Visits Requested Visits Authorized [id number] Authorized Auto-Generat ed Referral 01/17/2024 01/16/2025 1 1 * Diagnostic Procedure Only (Routine) - Authorized Specialty Diagnoses / Procedures Referred By Contact Referred To Contact [facility] Diagnoses Palpitations Shortness of breath Procedures NM CARDIAC PERF STRESS/PHARM MYOCARDIAL SPECT MULTIPLE STUDIES Anitra Mancera APRN.BEND SORTER [address] [place] [address] [facility] [address] [id number] Referral ID Status Reason Start Date Expiration Date Visits Requested Visits Authorized [id number] Authorized Auto-Generat ed Referral 01/17/2024 02/15/2025 1 1 * Outpatient Procedure (Routine) - Pending Review Specialty Diagnoses / Procedures Referred By Contac t Referred To Contact [facility] Diagnoses Palpitations Procedures ECG COMPLETE ECG ROUTINE ECG W/LEAST 12 LDS W/I&R Anitra Mancera APRN.BEND SORTER [address] [place] [address] [facility] [place] [address] [place] [address] Referral ID Status Reason Start Date Expiration Date Visits Requested Visits Authorized [id number] Pending Review Auto-Generat ed Referral 01/17/2024 01/16/2025 1 1 [facility] for referral (narrative)* Diagnostic Procedure Only (Routine) - Closed Specialty Diagnoses / Procedures Referred By Contac t Referred To Contact XR IMAGING Diagnoses Acute constipation Procedures XR ABDOMEN 1V SUPINE RADIOLOGIC EXAM ABDOMEN 1 VIEW Kevin Andersen PA-C [address] [place] [address] [place] [address] Referral ID Status Reason Start Date Expiration Date V isits Requested Visits Authorized [id number] Closed Auto-Generate d Referral 03/24/2024 04/23/2025 1 1 [facility] for referral (narrative)* Diagnostic Procedure Only (Routine) - Closed Specialty Diagnoses / Procedures Referred By Contac t Referred To Contact XR IMAGING Diagnoses Pencilling of stools Procedures XR ABDOMEN 1V SUPINE RADIOLOGIC EXAM ABDOMEN 1 VIEW Kevin Andersen PA-C [address] [place] [address] [place] [address] Referral ID Status Reason Start Date Expiration Date V isits Requested Visits Authorized [id number] Closed Auto-Generate d Referral 05/28/2023 06/26/2024 1 1 [facility] for referral (narrative)* Diagnostic Procedure Only (Routine) - Closed Specialty Diagnoses / Procedures Referred By Contac t Referred To Contact XR IMAGING Diagnoses Acute midline low back pain without sciatica Procedures XR LUMBAR GENERAL 3V AP/LAT/L5-S1 RADEX SPINE LUMBOSACRAL 2/3 VIEWS Kevin Andersen PA-C [address] [place] [address] [place] [address] Referral ID Status Reason Start Date Expiration Date V isits Requested Visits Authorized [id number] Closed Auto-Generate d Referral 11/13/2022 12/13/2023 1 1 [facility] for referral (narrative)* Diagnostic Procedure Only (Routine) - New Request Specialty Diagnoses / Procedures Referred By Contac t Referred To Contact [facility] Diagnoses Encounter for screening mammogram for malignant neoplasm of breast Procedures KIP SCREENING W DRISS SCREENING DIGITAL BREAST TOMOSYNTHESIS BI SCREENING MAMMOGRAPHY BI 2-VIEW BREAST INC CAD Anitra Mancera APRN.[employer] [address] [place] [address] [facility] [address] [place] [address] Referral ID Status Reason Start Date Expiration Date Visits Requested Visits Authorized [id number] New Request Auto-Generat ed Referral 10/09/2025 1 1 [facility] for referral (narrative)* Diagnostic Procedure Only (Routine) - Closed Specialty Diagnoses / Procedures Referred By Stephanie collado Referred To Contact XR IMAGING Diagnoses Pain in both knees, unspecified chronicity Procedures XR KNEE GENERAL 4V AP BOTH/PA BOTH/LAT/MERC BILATERAL XR KNEE GENERAL 4V AP BOTH/PA BOTH/LAT/MERC BILATERAL RADIOLOGIC EXAM KNEE COMPLETE 4/MORE VIEWS Anitra Mancera GENERAL SURGEON.TARGET WORKER [address] [place] [address] [place] [address] Referral ID Status Reason Start Date Expiration Date V isits Requested Visits Authorized [id number] Closed Auto-Generate d Referral 11/23/2024 12/23/2025 1 1 [facility] for visit Narrative* Outpatient Procedure (Routine) - Closed Specialty Diagnoses / Procedures Referred By Stephanie collado Referred To Contact [facility] Diagnoses Paresthesia Procedures EMG(NEURO/NI) NERVE CONDUCTION STUDIES 9-10 STUDIES Graham Flores MD [address] [place] [address] [facility] [place] [address] [place] [address] Referral ID Status Reason Start Date Expiration Date V isits Requested Visits Authorized [id number] Closed Auto-Generate d Referral 08/19/2023 08/19/2024 1 1 [facility] for visit Narrative* Diagnostic Procedure Only (Routine) - Closed Specialty Diagnoses / Procedures Referred By Contac t Referred To Contact [facility] / [facility] Diagnoses 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] Okay per Zoe Procedures US PELVIS Shaheed Anitra A, GENERAL SURGEON.TARGET WORKER [address] [place] [address] [facility] [address] [place] [address] Referral ID Status Reason Start Date Expiration Date Visits Re quested Visits Authorized [id number] Closed 06/16/2024 06/16/2024 1 1 [facility] for visit Narrative* Diagnostic Procedure Only (Routine) - Closed Specialty Diagnoses / Procedures Referred By Contac t Referred To Contact XR IMAGING Diagnoses Acute constipation Procedures XR ABDOMEN 1V SUPINE RADIOLOGIC EXAM ABDOMEN 1 VIEW Kevin Andersen PA-C [address] [place] [address] [place] [address] Referral ID Status Reason Start Date Expiration Date V isits Requested Visits Authorized [id number] Closed Auto-Generate d Referral 03/24/2024 04/23/2025 1 1 [facility] for visit Narrative* Diagnostic Procedure Only (Routine) - Closed Specialty Diagnoses / Procedures Referred By Contac t Referred To Contact XR IMAGING Diagnoses Pencilling of stools Procedures XR ABDOMEN 1V SUPINE RADIOLOGIC EXAM ABDOMEN 1 VIEW Kevin Andersen PA-C [address] [place] [address] [place] [address] Referral ID Status Reason Start Date Expiration Date V isits Requested Visits Authorized [id number] Closed Auto-Generate d Referral 05/28/2023 06/26/2024 1 1 [facility] for visit Narrative* Diagnostic Procedure Only (Routine) - Closed Specialty Diagnoses / Procedures Referred By Contac t Referred To Contact XR IMAGING Diagnoses Acute midline low back pain without sciatica Procedures XR LUMBAR GENERAL 3V AP/LAT/L5-S1 RADEX SPINE LUMBOSACRAL 2/3 VIEWS Kevin Andersen PA-C [address] [place] [address] [place] [address] Referral ID Status Reason Start Date Expiration Date V isits Requested Visits Authorized [id number] Closed Auto-Generate d Referral 11/13/2022 12/13/2023 1 1 [facility] for visit Narrative* Diagnostic Procedure Only (Routine) - Closed Specialty Diagnoses / Procedures Referred By Contac t Referred To Contact XR IMAGING Diagnoses Pain in both knees, unspecified chronicity Procedures XR KNEE GENERAL 4V AP BOTH/PA BOTH/LAT/MERC BILATERAL XR KNEE GENERAL 4V AP BOTH/PA BOTH/LAT/MERC BILATERAL RADIOLOGIC EXAM KNEE COMPLETE 4/MORE VIEWS Anitra Mancera, GENERAL SURGEON.TARGET WORKER [address] [place] [address] [place] [address] Referral ID Status Reason Start Date Expiration Date V isits Requested Visits Authorized [id number] Closed Auto-Generate d Referral 11/23/2024 12/23/2025 1 1 [facility] for visit Narrative* Auth/Cert (Routine) Specialty Diagnoses / Procedures Referred By Stephanie t Referred To Contact Diagnoses Other specified diseases of pancreas Procedures NM ESOPHAGOSCOPY FLEXIBLE TRANSORAL ULTRASOUND EXAM ESOPHAGOSCOPIC ULTRASOUND EXAM Quinten Franco MD [address] [place] [address] Phone: tel: fax: [facility] Endoscopy [address] [place] [address] Phone: tel: Referral ID Status Reason Start Date Expiration Date Visits Re quested Visits Authorized [id number] 1 1 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 Audit 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 Expl 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 Advance Directive(s) 03/24/2018 1:28 PM Advance Directive(s) 01/23/2018 7:10 AM Advance Directive Response Recorded Date/ Time Advance Directives Yes May 04 4 3:19am Living Will Yes July 18 0 7:44pm Power of Superintendent Maintenance Yes July 18 020 7:44pm Chief Complaint and Reason for Visit Chief Complaint SCREENING Reason for Referral Specialty Diagnoses / Procedures Referred By Contac t Referred To Contact Cardiology Diagnoses Palpitations Lightheadedness SOB (shortness of breath) Procedures CONSULT TO CARDIOLOGY OFFICE/OUTPATIENT [facility] 60-74 MINUTES Kevin Andersen PA-C [address] [place] [address] Referral ID Status Reason Start Date Expiration Date Visits Requested Visits Authorized [id number] Authorized PCP Requested Referral 01/22/2023 01/22/2024 1 1 Specialty Diagnoses / Procedures Referred By Contac t Referred To Contact [facility] Diagnoses Palpitations Lightheadedness SOB (shortness of breath) Procedures ECG COMPLETE ECG ROUTINE ECG W/LEAST 12 LDS W/I&R Kevin Andersen PA-C [address] [place] [address] [facility] [place] [address] [place] [address] Referral ID Status Reason Start Date Expiration Date V isits Requested Visits Authorized [id number] Closed Auto-Generate d Referral 01/22/2023 01/22/2024 1 1 Specialty Diagnoses / Procedures Referred By Contac t Referred To Contact Rheumatology Diagnoses Erosive (osteo)arthritis Elevated sed rate Procedures CONSULT TO RHEUM/IMMUN DISEASE OFFICE/OUTPATIENT [facility] 60-74 MINUTES Kevin Andersen PA-C [address] [place] [address] Referral ID Status Reason Start Date Expiration Date Visits Requested Visits Authorized [id number] Authorized PCP Requested Referral 07/05/2023 07/04/2024 1 1 Specialty Diagnoses / Procedures Referred By Contac t Referred To Contact Gastroenterology Diagnoses Chronic constipation Procedures CONSULT TO GASTROENTEROLOGY OFFICE/OUTPATIENT [facility] 60 MINUTES Anitra Mancera APRN.BEND SORTER [address] [place] [address] Referral ID Status Reason Start Date Expiration Date Visits Requested Visits Authorized [id number] Authorized PCP Requested Referral 02/06/2024 02/05/2025 1 1 Specialty Diagnoses / Procedures Referred By Contac t Referred To Contact Gastroenterology Diagnoses Acute constipation Procedures CONSULT TO GASTROENTEROLOGY OFFICE/OUTPATIENT [facility] 60 MINUTES Kevin Andersen PA-C [address] [place] [address] Referral ID Status Reason Start Date Expiration Date Visits Requested Visits Authorized [id number] Authorized PCP Requested Referral 03/24/2024 03/24/2025 1 1 Specialty Diagnoses / Procedures Referred By Contac t Referred To Contact XR IMAGING Diagnoses Acute constipation Procedures XR ABDOMEN 1V SUPINE RADIOLOGIC EXAM ABDOMEN 1 VIEW Kevin Andersen PA-C [address] [place] [address] [place] [address] Referral ID Status Reason Start Date Expiration Date V isits Requested Visits Authorized [id number] Closed Auto-Generate d Referral 03/24/2024 04/23/2025 1 1 Specialty Diagnoses / Procedures Referred By Contac t Referred To Contact CT IMAGING Diagnoses Acute constipation Abnormal weight loss Constipation, unspecified constipation type Procedures CT ABD/PEL W IVCON CT ABD & PELVIS W/CONTRAST Lindsey Stapleton PA-C [address] [place] [address] [place] [address] Referral ID Status Reason Start Date Expiration Date Visits Requested Visits Authorized [id number] Authorized Auto-Generat ed Referral 04/02/2024 05/02/2025 1 1 Specialty Diagnoses / Procedures Referred By Contac t Referred To Contact General Surgery Diagnoses Benzodiazepine dependence (HCC) Pencilling of stools Altered bowel habits Procedures CONSULT TO GENERAL SURGERY OFFICE/OUTPATIENT [facility] MDM 60-74 MINUTES Kevin Andersen PA-C [address] [place] [address] Referral ID Status Reason Start Date Expiration Date Visits Requested Visits Authorized [id number] Authorized PCP Requested Referral 06/11/2023 06/10/2024 1 1 Specialty Diagnoses / Procedures Referred By Contac t Referred To Contact Gynecology Diagnoses 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 Procedures CONSULT TO GYNECOLOGY OFFICE/OUTPATIENT NEW HIGH MDM 60 MINUTES Anitra Mancera APRN.TARGET WORKER [address] [place] [address] Referral ID Status Reason Start Date Expiration Date Visits Requested Visits Authorized [id number] Authorized PCP Requested Referral Auto-Generate d Referral 06/16/2024 06/16/2025 1 1 Specialty Diagnoses / Procedures Referred By Contac t Referred To Contact Endocrinology Diagnoses Hypothyroidism, acquired Procedures CONSULT TO ENDOCRINOLOGY CONSULT TO ENDOCRINOLOGY OFFICE/OUTPATIENT NEW HIGH MDM 60 MINUTES Anitra Mancera APRN.TARGET WORKER [address] [place] [address] Referral ID Status Reason Start Date Expiration Date Visits Requested Visits Authorized [id number] Authorized PCP Requested Referral 11/11/2025 1 1 Specialty Diagnoses / Procedures Referred By Contac t Referred To Contact General Surgery Diagnoses Pancreatic cyst Procedures CONSULT TO GENERAL SURGERY CONSULT TO GENERAL SURGERY OFFICE/OUTPATIENT [facility] MDM 60 MINUTES Anitra Mancera APRN.TARGET WORKER [address] [place] [address] Referral ID Status Reason Start Date Expiration Date Visits Requested Visits Authorized [id number] Authorized PCP Requested Referral 12/18/2024 12/18/2025 1 1 Additional Source Comments INFORMATION SOURCE (unrecogn ized section and content) DATE CREATED AUTHOR 04/03/2019 [facility] DATE CREATED AUTHOR AUTHOR'S ORGANIZ ATION 09/25/2019 [facility] DATE CREATED AUTHOR AUTHOR'S ORGANIZ ATION 03/11/2021 [facility] DATE CREATED AUTHOR AUTHOR'S ORGANIZ ATION 04/14/2021 [facility] DATE CREATED AUTHOR AUTHOR'S ORGANIZ ATION 04/11/2025 [facility] DATE CREATED AUTHOR AUTHOR'S ORGANIZ ATION 06/30/2025 [facility] DATE CREATED AUTHOR AUTHOR'S ORGANIZ ATION 07/09/2025 [facility] Source Comments (unrecognize d section and content) In the event this informatio n is protected by the Federal Confidentiality of Alcohol and Drug Abuse Patient Records regulations: The Federal rules restrict any use of the information to criminally investigate or prosecute any alcohol or drug abuse patient.[facility] the event this information is protected by the Federal Confidentiality of Alcohol and Drug Abuse Patient Records regulations: The Federal rules restrict any use of the information to criminally investigate or prosecute any alcohol or drug abuse patient.[facility] CampusIn the event this information is protected by the Federal Confidentiality of Alcohol and Drug Abuse Patient Records regulations: The Federal rules restrict any use of the information to criminally investigate or prosecute any alcohol or drug abuse patient.[facility] CampusIn the event this information is protected by the Federal Confidentiality of Alcohol and Drug Abuse Patient Records regulations: The Federal rules restrict any use of the information to criminally investigate or prosecute any alcohol or drug abuse patient.[facility] CampusIn the event this information is protected by the Federal Confidentiality of Alcohol and Drug Abuse Patient Records regulations: The Federal rules restrict any use of the information to criminally investigate or prosecute any alcohol or drug abuse patient.[facility] CampusIn the event this information is protected by the Federal Confidentiality of Alcohol and Drug Abuse Patient Records regulations: The Federal rules restrict any use of the information to criminally investigate or prosecute any alcohol or drug abuse patient.[facility] CampusIn the event this information is protected by the Federal Confidentiality of Alcohol and Drug Abuse Patient Records regulations: The Federal rules restrict any use of the information to criminally investigate or prosecute any alcohol or drug abuse patient.[facility] CampusIn the event this information is protected by the Federal Confidentiality of Alcohol and Drug Abuse Patient Records regulations: The Federal rules restrict any use of the information to criminally investigate or prosecute any alcohol or drug abuse patient.[facility] CampusIn the event this information is protected by the Federal Confidentiality of Alcohol and Drug Abuse Patient Records regulations: The Federal rules restrict any use of the information to criminally investigate or prosecute any alcohol or drug abuse patient.[facility] CampusIn the event this information is protected by the Federal Confidentiality of Alcohol and Drug Abuse Patient Records regulations: The Federal rules restrict any use of the information to criminally investigate or prosecute any alcohol or drug abuse patient.[facility] CampusIn the event this information is protected by the Federal Confidentiality of Alcohol and Drug Abuse Patient Records regulations: The Federal rules restrict any use of the information to criminally investigate or prosecute any alcohol or drug abuse patient.[facility] CampusIn the event this information is protected by the Federal Confidentiality of Alcohol and Drug Abuse Patient Records regulations: The Federal rules restrict any use of the information to criminally investigate or prosecute any alcohol or drug abuse patient.[facility] CampusIn the event this information is protected by the Federal Confidentiality of Alcohol and Drug Abuse Patient Records regulations: The Federal rules restrict any use of the information to criminally investigate or prosecute any alcohol or drug abuse patient.[facility] CampusIn the event this information is protected by the Federal Confidentiality of Alcohol and Drug Abuse Patient Records regulations: The Federal rules restrict any use of the information to criminally investigate or prosecute any alcohol or drug abuse patient.[facility] CampusIn the event this information is protected by the Federal Confidentiality of Alcohol and Drug Abuse Patient Records regulations: The Federal rules restrict any use of the information to criminally investigate or prosecute any alcohol or drug abuse patient.[facility] CampusIn the event this information is protected by the Federal Confidentiality of Alcohol and Drug Abuse Patient Records regulations: The Federal rules restrict any use of the information to criminally investigate or prosecute any alcohol or drug abuse patient.[facility] CampusIn the event this information is protected by the Federal Confidentiality of Alcohol and Drug Abuse Patient Records regulations: The Federal rules restrict any use of the information to criminally investigate or prosecute any alcohol or drug abuse patient.[facility] CampusIn the event this information is protected by the Federal Confidentiality of Alcohol and Drug Abuse Patient Records regulations: The Federal rules restrict any use of the information to criminally investigate or prosecute any alcohol or drug abuse patient.[facility] CampusIn the event this information is protected by the Federal Confidentiality of Alcohol and Drug Abuse Patient Records regulations: The Federal rules restrict any use of the information to criminally investigate or prosecute any alcohol or drug abuse patient.[facility] CampusIn the event this information is protected by the Federal Confidentiality of Alcohol and Drug Abuse Patient Records regulations: The Federal rules restrict any use of the information to criminally investigate or prosecute any alcohol or drug abuse patient.[facility] CampusIn the event this information is protected by the Federal Confidentiality of Alcohol and Drug Abuse Patient Records regulations: The Federal rules restrict any use of the information to criminally investigate or prosecute any alcohol or drug abuse patient.[facility] CampusIn the event this information is protected by the Federal Confidentiality of Alcohol and Drug Abuse Patient Records regulations: The Federal rules restrict any use of the information to criminally investigate or prosecute any alcohol or drug abuse patient.[facility] CampusIn the event this information is protected by the Federal Confidentiality of Alcohol and Drug Abuse Patient Records regulations: The Federal rules restrict any use of the information to criminally investigate or prosecute any alcohol or drug abuse patient.[facility] CampusIn the event this information is protected by the Federal Confidentiality of Alcohol and Drug Abuse Patient Records regulations: The Federal rules restrict any use of the information to criminally investigate or prosecute any alcohol or drug abuse patient.[facility] CampusIn the event this information is protected by the Federal Confidentiality of Alcohol and Drug Abuse Patient Records regulations: The Federal rules restrict any use of the information to criminally investigate or prosecute any alcohol or drug abuse patient.[facility] CampusIn the event this information is protected by the Federal Confidentiality of Alcohol and Drug Abuse Patient Records regulations: The Federal rules restrict any use of the information to criminally investigate or prosecute any alcohol or drug abuse patient.[facility] CampusIn the event this information is protected by the Federal Confidentiality of Alcohol and Drug Abuse Patient Records regulations: The Federal rules restrict any use of the information to criminally investigate or prosecute any alcohol or drug abuse patient.[facility] CampusIn the event this information is protected by the Federal Confidentiality of Alcohol and Drug Abuse Patient Records regulations: The Federal rules restrict any use of the information to criminally investigate or prosecute any alcohol or drug abuse patient.[facility] CampusIn the event this information is protected by the Federal Confidentiality of Alcohol and Drug Abuse Patient Records regulations: The Federal rules restrict any use of the information to criminally investigate or prosecute any alcohol or drug abuse patient.[facility] CampusIn the event this information is protected by the Federal Confidentiality of Alcohol and Drug Abuse Patient Records regulations: The Federal rules restrict any use of the information to criminally investigate or prosecute any alcohol or drug abuse patient.[facility] CampusIn the event this information is protected by the Federal Confidentiality of Alcohol and Drug Abuse Patient Records regulations: The Federal rules restrict any use of the information to criminally investigate or prosecute any alcohol or drug abuse patient.[facility] CampusIn the event this information is protected by the Federal Confidentiality of Alcohol and Drug Abuse Patient Records regulations: The Federal rules restrict any use of the information to criminally investigate or prosecute any alcohol or drug abuse patient.[facility] CampusIn the event this information is protected by the Federal Confidentiality of Alcohol and Drug Abuse Patient Records regulations: The Federal rules restrict any use of the information to criminally investigate or prosecute any alcohol or drug abuse patient.[facility] CampusIn the event this information is protected by the Federal Confidentiality of Alcohol and Drug Abuse Patient Records regulations: The Federal rules restrict any use of the information to criminally investigate or prosecute any alcohol or drug abuse patient.[facility] CampusIn the event this information is protected by the Federal Confidentiality of Alcohol and Drug Abuse Patient Records regulations: The Federal rules restrict any use of the information to criminally investigate or prosecute any alcohol or drug abuse patient.[facility] CampusIn the event this information is protected by the Federal Confidentiality of Alcohol and Drug Abuse Patient Records regulations: The Federal rules restrict any use of the information to criminally investigate or prosecute any alcohol or drug abuse patient.[facility] CampusIn the event this information is protected by the Federal Confidentiality of Alcohol and Drug Abuse Patient Records regulations: The Federal rules restrict any use of the information to criminally investigate or prosecute any alcohol or drug abuse patient.[facility] CampusIn the event this information is protected by the Federal Confidentiality of Alcohol and Drug Abuse Patient Records regulations: The Federal rules restrict any use of the information to criminally investigate or prosecute any alcohol or drug abuse patient.[facility] CampusIn the event this information is protected by the Federal Confidentiality of Alcohol and Drug Abuse Patient Records regulations: The Federal rules restrict any use of the information to criminally investigate or prosecute any alcohol or drug abuse patient.[facility] CampusIn the event this information is protected by the Federal Confidentiality of Alcohol and Drug Abuse Patient Records regulations: The Federal rules restrict any use of the information to criminally investigate or prosecute any alcohol or drug abuse patient.[facility] CampusIn the event this information is protected by the Federal Confidentiality of Alcohol and Drug Abuse Patient Records regulations: The Federal rules restrict any use of the information to criminally investigate or prosecute any alcohol or drug abuse patient.[facility] CampusIn the event this information is protected by the Federal Confidentiality of Alcohol and Drug Abuse Patient Records regulations: The Federal rules restrict any use of the information to criminally investigate or prosecute any alcohol or drug abuse patient.[facility] CampusIn the event this information is protected by the Federal Confidentiality of Alcohol and Drug Abuse Patient Records regulations: The Federal rules restrict any use of the information to criminally investigate or prosecute any alcohol or drug abuse patient.[facility] CampusIn the event this information is protected by the Federal Confidentiality of Alcohol and Drug Abuse Patient Records regulations: The Federal rules restrict any use of the information to criminally investigate or prosecute any alcohol or drug abuse patient.[facility] CampusIn the event this information is protected by the Federal Confidentiality of Alcohol and Drug Abuse Patient Records regulations: The Federal rules restrict any use of the information to criminally investigate or prosecute any alcohol or drug abuse patient.[facility] CampusIn the event this information is protected by the Federal Confidentiality of Alcohol and Drug Abuse Patient Records regulations: The Federal rules restrict any use of the information to criminally investigate or prosecute any alcohol or drug abuse patient.[facility] CampusIn the event this information is protected by the Federal Confidentiality of Alcohol and Drug Abuse Patient Records regulations: The Federal rules restrict any use of the information to criminally investigate or prosecute any alcohol or drug abuse patient.[facility] CampusIn the event this information is protected by the Federal Confidentiality of Alcohol and Drug Abuse Patient Records regulations: The Federal rules restrict any use of the information to criminally investigate or prosecute any alcohol or drug abuse patient.[facility] CampusIn the event this information is protected by the Federal Confidentiality of Alcohol and Drug Abuse Patient Records regulations: The Federal rules restrict any use of the information to criminally investigate or prosecute any alcohol or drug abuse patient.[facility] CampusIn the event this information is protected by the Federal Confidentiality of Alcohol and Drug Abuse Patient Records regulations: The Federal rules restrict any use of the information to criminally investigate or prosecute any alcohol or drug abuse patient.[facility] CampusIn the event this information is protected by the Federal Confidentiality of Alcohol and Drug Abuse Patient Records regulations: The Federal rules restrict any use of the information to criminally investigate or prosecute any alcohol or drug abuse patient.[facility] CampusIn the event this information is protected by the Federal Confidentiality of Alcohol and Drug Abuse Patient Records regulations: The Federal rules restrict any use of the information to criminally investigate or prosecute any alcohol or drug abuse patient.[facility] CampusIn the event this information is protected by the Federal Confidentiality of Alcohol and Drug Abuse Patient Records regulations: The Federal rules restrict any use of the information to criminally investigate or prosecute any alcohol or drug abuse patient.[facility] CampusIn the event this information is protected by the Federal Confidentiality of Alcohol and Drug Abuse Patient Records regulations: The Federal rules restrict any use of the information to criminally investigate or prosecute any alcohol or drug abuse patient.[facility] CampusIn the event this information is protected by the Federal Confidentiality of Alcohol and Drug Abuse Patient Records regulations: The Federal rules restrict any use of the information to criminally investigate or prosecute any alcohol or drug abuse patient.[facility] CampusIn the event this information is protected by the Federal Confidentiality of Alcohol and Drug Abuse Patient Records regulations: The Federal rules restrict any use of the information to criminally investigate or prosecute any alcohol or drug abuse patient.[facility] CampusIn the event this information is protected by the Federal Confidentiality of Alcohol and Drug Abuse Patient Records regulations: The Federal rules restrict any use of the information to criminally investigate or prosecute any alcohol or drug abuse patient.[facility] CampusIn the event this information is protected by the Federal Confidentiality of Alcohol and Drug Abuse Patient Records regulations: The Federal rules restrict any use of the information to criminally investigate or prosecute any alcohol or drug abuse patient.[facility] CampusIn the event this information is protected by the Federal Confidentiality of Alcohol and Drug Abuse Patient Records regulations: The Federal rules restrict any use of the information to criminally investigate or prosecute any alcohol or drug abuse patient.[facility] CampusIn the event this information is protected by the Federal Confidentiality of Alcohol and Drug Abuse Patient Records regulations: The Federal rules restrict any use of the information to criminally investigate or prosecute any alcohol or drug abuse patient.[facility] CampusIn the event this information is protected by the Federal Confidentiality of Alcohol and Drug Abuse Patient Records regulations: The Federal rules restrict any use of the information to criminally investigate or prosecute any alcohol or drug abuse patient.[facility] CampusIn the event this information is protected by the Federal Confidentiality of Alcohol and Drug Abuse Patient Records regulations: The Federal rules restrict any use of the information to criminally investigate or prosecute any alcohol or drug abuse patient.[facility] CampusIn the event this information is protected by the Federal Confidentiality of Alcohol and Drug Abuse Patient Records regulations: The Federal rules restrict any use of the information to criminally investigate or prosecute any alcohol or drug abuse patient.[facility] CampusIn the event this information is protected by the Federal Confidentiality of Alcohol and Drug Abuse Patient Records regulations: The Federal rules restrict any use of the information to criminally investigate or prosecute any alcohol or drug abuse patient.[facility] CampusIn the event this information is protected by the Federal Confidentiality of Alcohol and Drug Abuse Patient Records regulations: The Federal rules restrict any use of the information to criminally investigate or prosecute any alcohol or drug abuse patient.[facility] CampusIn the event this information is protected by the Federal Confidentiality of Alcohol and Drug Abuse Patient Records regulations: The Federal rules restrict any use of the information to criminally investigate or prosecute any alcohol or drug abuse patient.[facility] CampusIn the event this information is protected by the Federal Confidentiality of Alcohol and Drug Abuse Patient Records regulations: The Federal rules restrict any use of the information to criminally investigate or prosecute any alcohol or drug abuse patient.[facility] CampusIn the event this information is protected by the Federal Confidentiality of Alcohol and Drug Abuse Patient Records regulations: The Federal rules restrict any use of the information to criminally investigate or prosecute any alcohol or drug abuse patient.[facility] CampusIn the event this information is protected by the Federal Confidentiality of Alcohol and Drug Abuse Patient Records regulations: The Federal rules restrict any use of the information to criminally investigate or prosecute any alcohol or drug abuse patient.[facility] CampusIn the event this information is protected by the Federal Confidentiality of Alcohol and Drug Abuse Patient Records regulations: The Federal rules restrict any use of the information to criminally investigate or prosecute any alcohol or drug abuse patient.[facility] CampusIn the event this information is protected by the Federal Confidentiality of Alcohol and Drug Abuse Patient Records regulations: The Federal rules restrict any use of the information to criminally investigate or prosecute any alcohol or drug abuse patient.[facility] CampusIn the event this information is protected by the Federal Confidentiality of Alcohol and Drug Abuse Patient Records regulations: The Federal rules restrict any use of the information to criminally investigate or prosecute any alcohol or drug abuse patient.[facility] CampusIn the event this information is protected by the Federal Confidentiality of Alcohol and Drug Abuse Patient Records regulations: The Federal rules restrict any use of the information to criminally investigate or prosecute any alcohol or drug abuse patient.[facility] CampusIn the event this information is protected by the Federal Confidentiality of Alcohol and Drug Abuse Patient Records regulations: The Federal rules restrict any use of the information to criminally investigate or prosecute any alcohol or drug abuse patient.[facility] CampusIn the event this information is protected by the Federal Confidentiality of Alcohol and Drug Abuse Patient Records regulations: The Federal rules restrict any use of the information to criminally investigate or prosecute any alcohol or drug abuse patient.[facility] CampusIn the event this information is protected by the Federal Confidentiality of Alcohol and Drug Abuse Patient Records regulations: The Federal rules restrict any use of the information to criminally investigate or prosecute any alcohol or drug abuse patient.[facility] CampusIn the event this information is protected by the Federal Confidentiality of Alcohol and Drug Abuse Patient Records regulations: The Federal rules restrict any use of the information to criminally investigate or prosecute any alcohol or drug abuse patient.[facility] CampusIn the event this information is protected by the Federal Confidentiality of Alcohol and Drug Abuse Patient Records regulations: The Federal rules restrict any use of the information to criminally investigate or prosecute any alcohol or drug abuse patient.[facility] CampusIn the event this information is protected by the Federal Confidentiality of Alcohol and Drug Abuse Patient Records regulations: The Federal rules restrict any use of the information to criminally investigate or prosecute any alcohol or drug abuse patient.[facility] CampusIn the event this information is protected by the Federal Confidentiality of Alcohol and Drug Abuse Patient Records regulations: The Federal rules restrict any use of the information to criminally investigate or prosecute any alcohol or drug abuse patient.[facility] CampusIn the event this information is protected by the Federal Confidentiality of Alcohol and Drug Abuse Patient Records regulations: The Federal rules restrict any use of the information to criminally investigate or prosecute any alcohol or drug abuse patient.[facility] CampusIn the event this information is protected by the Federal Confidentiality of Alcohol and Drug Abuse Patient Records regulations: The Federal rules restrict any use of the information to criminally investigate or prosecute any alcohol or drug abuse patient.[facility] CampusIn the event this information is protected by the Federal Confidentiality of Alcohol and Drug Abuse Patient Records regulations: The Federal rules restrict any use of the information to criminally investigate or prosecute any alcohol or drug abuse patient.[facility] CampusIn the event this information is protected by the Federal Confidentiality of Alcohol and Drug Abuse Patient Records regulations: The Federal rules restrict any use of the information to criminally investigate or prosecute any alcohol or drug abuse patient.[facility] CampusIn the event this information is protected by the Federal Confidentiality of Alcohol and Drug Abuse Patient Records regulations: The Federal rules restrict any use of the information to criminally investigate or prosecute any alcohol or drug abuse patient.[facility] CampusIn the event this information is protected by the Federal Confidentiality of Alcohol and Drug Abuse Patient Records regulations: The Federal rules restrict any use of the information to criminally investigate or prosecute any alcohol or drug abuse patient.[facility] CampusIn the event this information is protected by the Federal Confidentiality of Alcohol and Drug Abuse Patient Records regulations: The Federal rules restrict any use of the information to criminally investigate or prosecute any alcohol or drug abuse patient.[facility] CampusIn the event this information is protected by the Federal Confidentiality of Alcohol and Drug Abuse Patient Records regulations: The Federal rules restrict any use of the information to criminally investigate or prosecute any alcohol or drug abuse patient.[facility] CampusIn the event this information is protected by the Federal Confidentiality of Alcohol and Drug Abuse Patient Records regulations: The Federal rules restrict any use of the information to criminally investigate or prosecute any alcohol or drug abuse patient.[facility] CampusIn the event this information is protected by the Federal Confidentiality of Alcohol and Drug Abuse Patient Records regulations: The Federal rules restrict any use of the information to criminally investigate or prosecute any alcohol or drug abuse patient.[facility] CampusIn the event this information is protected by the Federal Confidentiality of Alcohol and Drug Abuse Patient Records regulations: The Federal rules restrict any use of the information to criminally investigate or prosecute any alcohol or drug abuse patient.[facility] CampusIn the event this information is protected by the Federal Confidentiality of Alcohol and Drug Abuse Patient Records regulations: The Federal rules restrict any use of the information to criminally investigate or prosecute any alcohol or drug abuse patient.[facility] CampusIn the event this information is protected by the Federal Confidentiality of Alcohol and Drug Abuse Patient Records regulations: The Federal rules restrict any use of the information to criminally investigate or prosecute any alcohol or drug abuse patient.[facility] CampusIn the event this information is protected by the Federal Confidentiality of Alcohol and Drug Abuse Patient Records regulations: The Federal rules restrict any use of the information to criminally investigate or prosecute any alcohol or drug abuse patient.[facility] CampusIn the event this information is protected by the Federal Confidentiality of Alcohol and Drug Abuse Patient Records regulations: The Federal rules restrict any use of the information to criminally investigate or prosecute any alcohol or drug abuse patient.[facility] CampusIn the event this information is protected by the Federal Confidentiality of Alcohol and Drug Abuse Patient Records regulations: The Federal rules restrict any use of the information to criminally investigate or prosecute any alcohol or drug abuse patient.[facility] CampusIn the event this information is protected by the Federal Confidentiality of Alcohol and Drug Abuse Patient Records regulations: The Federal rules restrict any use of the information to criminally investigate or prosecute any alcohol or drug abuse patient.[facility] CampusIn the event this information is protected by the Federal Confidentiality of Alcohol and Drug Abuse Patient Records regulations: The Federal rules restrict any use of the information to criminally investigate or prosecute any alcohol or drug abuse patient.[facility] CampusIn the event this information is protected by the Federal Confidentiality of Alcohol and Drug Abuse Patient Records regulations: The Federal rules restrict any use of the information to criminally investigate or prosecute any alcohol or drug abuse patient.[facility] CampusIn the event this information is protected by the Federal Confidentiality of Alcohol and Drug Abuse Patient Records regulations: The Federal rules restrict any use of the information to criminally investigate or prosecute any alcohol or drug abuse patient.[facility] CampusIn the event this information is protected by the Federal Confidentiality of Alcohol and Drug Abuse Patient Records regulations: The Federal rules restrict any use of the information to criminally investigate or prosecute any alcohol or drug abuse patient.[facility] CampusIn the event this information is protected by the Federal Confidentiality of Alcohol and Drug Abuse Patient Records regulations: The Federal rules restrict any use of the information to criminally investigate or prosecute any alcohol or drug abuse patient.[facility] CampusIn the event this information is protected by the Federal Confidentiality of Alcohol and Drug Abuse Patient Records regulations: The Federal rules restrict any use of the information to criminally investigate or prosecute any alcohol or drug abuse patient.[facility] CampusIn the event this information is protected by the Federal Confidentiality of Alcohol and Drug Abuse Patient Records regulations: The Federal rules restrict any use of the information to criminally investigate or prosecute any alcohol or drug abuse patient.[facility] CampusIn the event this information is protected by the Federal Confidentiality of Alcohol and Drug Abuse Patient Records regulations: The Federal rules restrict any use of the information to criminally investigate or prosecute any alcohol or drug abuse patient.[facility] CampusIn the event this information is protected by the Federal Confidentiality of Alcohol and Drug Abuse Patient Records regulations: The Federal rules restrict any use of the information to criminally investigate or prosecute any alcohol or drug abuse patient.[facility] CampusIn the event this information is protected by the Federal Confidentiality of Alcohol and Drug Abuse Patient Records regulations: The Federal rules restrict any use of the information to criminally investigate or prosecute any alcohol or drug abuse patient.[facility] CampusIn the event this information is protected by the Federal Confidentiality of Alcohol and Drug Abuse Patient Records regulations: The Federal rules restrict any use of the information to criminally investigate or prosecute any alcohol or drug abuse patient.[facility] CampusIn the event this information is protected by the Federal Confidentiality of Alcohol and Drug Abuse Patient Records regulations: The Federal rules restrict any use of the information to criminally investigate or prosecute any alcohol or drug abuse patient.[facility] CampusIn the event this information is protected by the Federal Confidentiality of Alcohol and Drug Abuse Patient Records regulations: The Federal rules restrict any use of the information to criminally investigate or prosecute any alcohol or drug abuse patient.[facility] CampusIn the event this information is protected by the Federal Confidentiality of Alcohol and Drug Abuse Patient Records regulations: The Federal rules restrict any use of the information to criminally investigate or prosecute any alcohol or drug abuse patient.[facility] CampusIn the event this information is protected by the Federal Confidentiality of Alcohol and Drug Abuse Patient Records regulations: The Federal rules restrict any use of the information to criminally investigate or prosecute any alcohol or drug abuse patient.[facility] CampusIn the event this information is protected by the Federal Confidentiality of Alcohol and Drug Abuse Patient Records regulations: The Federal rules restrict any use of the information to criminally investigate or prosecute any alcohol or drug abuse patient.[facility] CampusIn the event this information is protected by the Federal Confidentiality of Alcohol and Drug Abuse Patient Records regulations: The Federal rules restrict any use of the information to criminally investigate or prosecute any alcohol or drug abuse patient.[facility] CampusIn the event this information is protected by the Federal Confidentiality of Alcohol and Drug Abuse Patient Records regulations: The Federal rules restrict any use of the information to criminally investigate or prosecute any alcohol or drug abuse patient.[facility] CampusIn the event this information is protected by the Federal Confidentiality of Alcohol and Drug Abuse Patient Records regulations: The Federal rules restrict any use of the information to criminally investigate or prosecute any alcohol or drug abuse patient.[facility] CampusIn the event this information is protected by the Federal Confidentiality of Alcohol and Drug Abuse Patient Records regulations: The Federal rules restrict any use of the information to criminally investigate or prosecute any alcohol or drug abuse patient.[facility] CampusIn the event this information is protected by the Federal Confidentiality of Alcohol and Drug Abuse Patient Records regulations: The Federal rules restrict any use of the information to criminally investigate or prosecute any alcohol or drug abuse patient.[facility] CampusIn the event this information is protected by the Federal Confidentiality of Alcohol and Drug Abuse Patient Records regulations: The Federal rules restrict any use of the information to criminally investigate or prosecute any alcohol or drug abuse patient.[facility] Care Teams (unrecognized sec tion and content) Lumpia Wrapper Maker Relationship Specialty Start Date End Date Troy Mckeon MD [id number] [facility] [place] [address] PCP - General Family Practice 06/01/21 Lumpia Wrapper Maker Relationship Specialty Start Date End Date Troy Mckeon MD [address] [facility] [place] [address] PCP - General Family Practice 06/01/21 Lumpia Wrapper Maker Relationship Specialty Start Date End Date Troy Mckeon MD [address] [facility] [place] [address] PCP - General Family Practice 06/01/21 Lumpia Wrapper Maker Relationship Specialty Start Date End Date Troy Mckeon MD [address] [facility] [place] [address] PCP - General Family Practice 06/01/21 Lumpia Wrapper Maker Relationship Specialty Start Date End Date Troy Mckeon MD [address] [facility] [place] [address] PCP - General Family Practice 06/01/21 Lumpia Wrapper Maker Relationship Specialty Start Date End Date Troy Mckeon MD [address] [facility] [place] [address] PCP - General Family Medicine 06/01/21 Lumpia Wrapper Maker Relationship Specialty Start Date End Date Kevin Andersen PA-C [address] [place] [address] PCP - General Family Medicine 10/01/22 Lumpia Wrapper Maker Relationship Specialty Start Date End Date Kevin Andersen PA-C [address] [facility] [place] [address] PCP - General Family Medicine 10/01/22 Lumpia Wrapper Maker Relationship Specialty Start Date End Date Kevin Andersen PA-C [address] [place] [address] PCP - General Family Medicine 10/01/22 Lumpia Wrapper Maker Relationship Specialty Start Date End Date Kevin Andersen PA-C [address] [place] [address] PCP - General Family Medicine 10/01/22 Lumpia Wrapper Maker Relationship Specialty Start Date End Date Kevin Andersen PA-C [address] [place] [address] PCP - General Family Medicine 10/01/22 Lumpia Wrapper Maker Relationship Specialty Start Date End Date Kevin Andersen PA-C [address] [facility] [place] [place] [address] PCP - General Family Medicine 10/01/22 Lumpia Wrapper Maker Relationship Specialty Start Date End Date Kevin Andersen PA-C [address] [facility] [place] [address] PCP - General Family Medicine 10/01/22 Lumpia Wrapper Maker Relationship Specialty Start Date End Date Kevin Andersen PA-C [address] [facility] [place] [address] PCP - General Family Medicine 10/01/22 Lumpia Wrapper Maker Relationship Specialty Start Date End Date Kevin Andersen PA-C [address] [place] [address] PCP - General Family Medicine 10/01/22 Lumpia Wrapper Maker Relationship Specialty Start Date End Date Kevin Andersen PA-C [address] [place] [address] PCP - General Family Medicine 10/01/22 Lumpia Wrapper Maker Relationship Specialty Start Date End Date Kevin Andersen PA-C [address] [place] [address] PCP - General Family Medicine 10/01/22 Lumpia Wrapper Maker Relationship Specialty Start Date End Date Kevin Andersen PA-C [address] [facility] [place] [address] PCP - General Family Medicine 10/01/22 Lumpia Wrapper Maker Relationship Specialty Start Date End Date Kevin Andersen PA-C [address] [facility] [place] [address] PCP - General Family Medicine 10/01/22 Lumpia Wrapper Maker Relationship Specialty Start Date End Date Kevin Andersen PA-C [address] [facility] [place] [address] PCP - General Family Medicine 10/01/22 Lumpia Wrapper Maker Relationship Specialty Start Date End Date Kevin Andersen PA-C [address] [facility] [place] [address] PCP - General Family Medicine 10/01/22 Lumpia Wrapper Maker Relationship Specialty Start Date End Date Kevin Andersen PA-C [address] [facility] [place] [address] PCP - General Family Medicine 10/01/22 Lumpia Wrapper Maker Relationship Specialty Start Date End Date Kevin Andersen PA-C [address] [facility] [place] [address] PCP - General Family Medicine 10/01/22 Lumpia Wrapper Maker Relationship Specialty Start Date End Date Kevin Andresen PA-C [address] [facility] [place] [address] PCP - General Family Medicine 10/01/22 Lumpia Wrapper Maker Relationship Specialty Start Date End Date Kevin Andersen PA-C [address] [facility] [place] [address] PCP - General Family Medicine 10/01/22 Lumpia Wrapper Maker Relationship Specialty Start Date End Date Kevin Andersen PA-C [address] [facility] [place] [address] PCP - General Family Medicine 10/01/22 Lumpia Wrapper Maker Relationship Specialty Start Date End Date Kevin Andersen PA-C [address] [facility] [place] [address] PCP - General Family Medicine 10/01/22 Lumpia Wrapper Maker Relationship Specialty Start Date End Date Kevin Andersen PA-C [address] [place] [address] PCP - General Family Medicine 10/01/22 Lumpia Wrapper Maker Relationship Specialty Start Date End Date Kevin Andersen PA-C [address] [place] [address] PCP - General Family Medicine 10/01/22 Lumpia Wrapper Maker Relationship Specialty Start Date End Date Kevin Andersen PA-C [address] [place] [address] PCP - General Family Medicine 10/01/22 Lumpia Wrapper Maker Relationship Specialty Start Date End Date Kevin Andersen PA-C [address] [place] [address] PCP - General Family Medicine 10/01/22 Lumpia Wrapper Maker Relationship Specialty Start Date End Date Kevin Andersen PA-C [address] [place] [address] PCP - General Family Medicine 10/01/22 Lumpia Wrapper Maker Relationship Specialty Start Date End Date Kevin Andersen PA-C [address] [place] [address] PCP - General Family Medicine 10/01/22 Lumpia Wrapper Maker Relationship Specialty Start Date End Date Kevin Andersen PA-C [address] [facility] [place] [address] PCP - General Family Medicine 10/01/22 Lumpia Wrapper Maker Relationship Specialty Start Date End Date Kevin Andersen PA-C [address] [facility] [place] [address] PCP - General Family Medicine 10/01/22 Lumpia Wrapper Maker Relationship Specialty Start Date End Date Kevin Andersen PA-C [address] [facility] [place] [address] PCP - General Family Medicine 10/01/22 Lumpia Wrapper Maker Relationship Specialty Start Date End Date Kevin Andersen PA-C [address] [facility] [place] [address] PCP - General Family Medicine 10/01/22 Lumpia Wrapper Maker Relationship Specialty Start Date End Date Kevin Andersen PA-C [address] [facility] [place] [address] PCP - General Family Medicine 10/01/22 Lumpia Wrapper Maker Relationship Specialty Start Date End Date Kevin Andersen PA-C [address] [facility] [place] [address] PCP - General Family Medicine 10/01/22 Lumpia Wrapper Maker Relationship Specialty Start Date End Date Kevin Andersen PA-C [address] [facility] [place] [address] PCP - General Family Medicine 10/01/22 Lumpia Wrapper Maker Relationship Specialty Start Date End Date Kevin Andersen PA-C [address] [facility] [place] [address] PCP - General Family Medicine 10/01/22 Lumpia Wrapper Maker Relationship Specialty Start Date End Date Kevin Andersen PA-C [address] [facility] [place] [address] PCP - General Family Medicine 10/01/22 Lumpia Wrapper Maker Relationship Specialty Start Date End Date Kevin Andersen PA-C [address] [facility] [place] [address] PCP - General Family Medicine 10/01/22 Lumpia Wrapper Maker Relationship Specialty Start Date End Date Kevin Andersen PA-C [address] [facility] [place] [address] PCP - General Family Medicine 10/01/22 Lumpia Wrapper Maker Relationship Specialty Start Date End Date Kevin Andersen PA-C [address] [facility] [place] [address] PCP - General Family Medicine 10/01/22 Lumpia Wrapper Maker Relationship Specialty Start Date End Date Kevin Andersen PA-C [address] [facility] [place] [address] PCP - General Family Medicine 10/01/22 Lumpia Wrapper Maker Relationship Specialty Start Date End Date Kevin Andersen PA-C [address] [facility] [place] [address] PCP - General Family Medicine 10/01/22 Lumpia Wrapper Maker Relationship Specialty Start Date End Date Kevin Andersen PA-C [address] [facility] [place] [address] PCP - General Family Medicine 10/01/22 Lumpia Wrapper Maker Relationship Specialty Start Date End Date Kevin Andersen PA-C [address] [facility] [place] [address] PCP - General Family Medicine 10/01/22 Lumpia Wrapper Maker Relationship Specialty Start Date End Date Demetris Tabares III, MD PCP - General Family Medicine 05/04/13 05/31/21 Lumpia Wrapper Maker Relationship Specialty Start Date End Date Kevin Andersen PA-C [address] [facility] [place] [address] PCP - General Family Medicine 10/01/22 Lumpia Wrapper Maker Relationship Specialty Start Date End Date Kevin Andersen PA-C [address] [facility] [place] [address] PCP - General Family Medicine 10/01/22 Lumpia Wrapper Maker Relationship Specialty Start Date End Date Anitra Mancera GENERAL SURGEON.TARGET WORKER [address] [facility] [place] [address] PCP - General Family Medicine 11/03/24 Lumpia Wrapper Maker Relationship Specialty Start Date End Date Yanely Andersen PA-C PCP - General Family Medicine 10/01/22 11/02/24 Anitra Mancera APRN.TARGET WORKER [address] [facility] [place] [address] PCP - General Family Medicine 11/03/24 Lumpia Wrapper Maker Relationship Specialty Start Date End Date Anitra Mancera GENERAL SURGEON.TARGET WORKER [address] [facility] [place] [address] PCP - General Family Medicine 11/03/24 Lumpia Wrapper Maker Relationship Specialty Start Date End Date Anitra Mancera GENERAL SURGEON.TARGET WORKER [address] [facility] [place] [address] PCP - General Family Medicine 11/03/24 Lumpia Wrapper Maker Relationship Specialty Start Date End Date Anitra Mancera, GENERAL SURGEON.TARGET WORKER [address] [facility] [place] [address] PCP - General Family Medicine 11/03/24 Lumpia Wrapper Maker Relationship Specialty Start Date End Date Anitra Mancera, GENERAL SURGEON.TARGET WORKER [address] [facility] [place] [address] PCP - General Family Medicine 11/03/24 Lumpia Wrapper Maker Relationship Specialty Start Date End Date Anitra Mancera, GENERAL SURGEON.TARGET WORKER [address] [facility] [place] [address] PCP - General Family Medicine 11/03/24 Lumpia Wrapper Maker Relationship Specialty Start Date End Date Anitra Mancera, GENERAL SURGEON.TARGET WORKER [address] [facility] [place] [address] PCP - General Family Medicine 11/03/24 Lumpia Wrapper Maker Relationship Specialty Start Date End Date Anitra Mancera, GENERAL SURGEON.TARGET WORKER [address] [facility] [place] [address] PCP - General Family Medicine 11/03/24 Lumpia Wrapper Maker Relationship Specialty Start Date End Date Anitra Mancera, GENERAL SURGEON.TARGET WORKER [address] [facility] [place] [address] PCP - General Family Medicine 11/03/24 Lumpia Wrapper Maker Relationship Specialty Start Date End Date Anitra Mancera, GENERAL SURGEON.TARGET WORKER [address] [facility] [place] [address] PCP - General Family Medicine 11/03/24 Lumpia Wrapper Maker Relationship Specialty Start Date End Date Anitra Mancera, GENERAL SURGEON.TARGET WORKER [address] [place] [address] PCP - General Family Medicine 11/03/24 Lumpia Wrapper Maker Relationship Specialty Start Date End Date Anitra Mancera, GENERAL SURGEON.TARGET WORKER [address] [place] [address] PCP - General Family Medicine 11/03/24 Lumpia Wrapper Maker Relationship Specialty Start Date End Date Anitra Mancera GENERAL SURGEON.TARGET WORKER [address] [facility] [place] [address] PCP - General Family Medicine 11/03/24 Lumpia Wrapper Maker Relationship Specialty Start Date End Date Anitra Mancera, GENERAL SURGEON.TARGET WORKER [address] [place] [address] PCP - General Family Medicine 11/03/24 Lumpia Wrapper Maker Relationship Specialty Start Date End Date Anitra Mancera, GENERAL SURGEON.TARGET WORKER [address] [facility] [place] [address] PCP - General Family Medicine 11/03/24 Lumpia Wrapper Maker Relationship Specialty Start Date End Date Anitra Mancera, GENERAL SURGEON.TARGET WORKER [address] [place] [address] PCP - General Family Medicine 11/03/24 Lumpia Wrapper Maker Relationship Specialty Start Date End Date Anitra Mancera, GENERAL SURGEON.TARGET WORKER [address] [place] [address] PCP - General Family Medicine 11/03/24 Lumpia Wrapper Maker Relationship Specialty Start Date End Date Anitra Mancera, GENERAL SURGEON.TARGET WORKER [address] [facility] [place] [address] PCP - General Family Medicine 11/03/24 Lumpia Wrapper Maker Relationship Specialty Start Date End Date Anitra Mancera, GENERAL SURGEON.TARGET WORKER [address] [place] [address] PCP - General Family Medicine 11/03/24 Lumpia Wrapper Maker Relationship Specialty Start Date End Date Anitra Mancera, GENERAL SURGEON.TARGET WORKER [address] [facility] [place] [address] PCP - General Family Medicine 11/03/24 Lumpia Wrapper Maker Relationship Specialty Start Date End Date Anitra Mancera GENERAL SURGEON.TARGET WORKER [address] [place] [address] PCP - General Family Medicine 11/03/24 Lumpia Wrapper Maker Relationship Specialty Start Date End Date Anitra Mancera [address] [place] [id number] PCP - General 03/16/25 Oneyda Kaplan, YARY Nurse Navigator Oncology 03/16/25 Lumpia Wrapper Maker Relationship Specialty Start Date End Date Anitra Mancera, GENERAL SURGEON.TARGET WORKER [address] [place] [address] PCP - General Family Medicine 11/03/24 Lumpia Wrapper Maker Relationship Specialty Start Date End Date Anitra Mancera, GENERAL SURGEON.TARGET WORKER [address] [facility] [place] [address] PCP - General Family Medicine 11/03/24 Lumpia Wrapper Maker Relationship Specialty Start Date End Date SuppAnitra chiang, GENERAL SURGEON.TARGET WORKER [address] [facility] [place], [place] [address] PCP - General Family Medicine 11/03/24 Lumpia Wrapper Maker Relationship Specialty Start Date End Date ShaheedAnitra, GENERAL SURGEON.TARGET WORKER [address] [facility] [place], [place] [id number] PCP - General Family Medicine 11/03/24 Lumpia Wrapper Maker Relationship Specialty Start Date End Date ShaheedAnitra, GENERAL SURGEON.TARGET WORKER [address] [facility] [place] [address] PCP - General Family Medicine 11/03/24 Reason [...] helps Specialty Diagnoses / Procedures Referred By Contac t Referred To Contact Gastroenterology Diagnoses Acute constipation Procedures CONSULT TO GASTROENTEROLOGY OFFICE/OUTPATIENT [facility] 60 MINUTES Kevin Andersen PA-C [address] [place] [address] Referral ID Status Reason Start Date Expiration Date V isits Requested Visits Authorized [id number] Closed PCP Requested Referral 03/24/2024 03/24/2025 1 1 Reason Comments Prep instructions Reason Comments Follow Up 4 week Specialty Diagnoses / Procedures Referred By Contac t Referred To Contact CT IMAGING Diagnoses Acute constipation Abnormal weight loss Constipation, unspecified constipation type Procedures CT ABD/PEL W IVCON CT ABD & PELVIS W/CONTRAST Lindsey Stapleton PA-C [address] [place] [address] Ct Imaging [place] [address] Referral ID Status Reason Start Date Expiration Date V isits Requested Visits Authorized [id number] Closed Auto-Generate d Referral 04/02/2024 05/02/2025 [address] Specialty Diagnoses / Procedures Referred By Contac t Referred To Contact CT IMAGING Diagnoses Acute constipation Abnormal weight loss Constipation, unspecified constipation type Procedures CT ABD/PEL W IVCON CT ABD & PELVIS W/CONTRAST Lindsey Stapleton PA-C [address] [place] [address] Ct Imaging [facility] Reason Comments Ardelyx Reason Onset Date Comments Refill Request 05/18/2024 Reason Onset Date Comments Refill Request 06/10/2023 Referral Request 06/10/2023 Dr. Tabares Refer ral Specialty Diagnoses / Procedures Referred By Contac t Referred To Contact MR IMAGING Diagnoses Abnormal weight loss Pancreatic lesion Procedures MRI PANC/JENNIFER WO/W IVCON MRI ABDOMEN W/O & W/CONTRAST MATERIAL Lindsey Stapleton PA-C [address] [place] [address] [place] [address] Referral ID Status Reason Start Date Expiration Date V isits Requested Visits Authorized [id number] Closed Auto-Generate d Referral 04/28/2024 05/28/2025 1 1 Reason Comments Mouth/Lip Problem Reason Comments Follow Up Review CT results Reason Comments Follow Up CT scan and US Specialty Diagnoses / Procedures Referred By Contac t Referred To Contact Gynecology Diagnoses 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 Rm Reason Comments H. 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 [address] [place] [address] Phone: tel: fax: Cliff Troncoso MD [address] [place] [address] Phone: tel: fax: Referral ID Status Reason Start Date Expiration Date Visits Re quested Visits Authorized [id number] Closed 03/04/2025 03/03/2026 1 1 Reason Onset Date Comments Results 03/19/2025 Reason Comments Pain, Back Low back pain x2 wee ks, recently diagnosed with pancreatic cancer Reason Comments Thyroid Problem As per cancer doctor , tachycardia and shaky ongoing 3 weeks Reason Comments Thyroid Problem Specialty Diagnoses / Procedures Referred By Contronal t Referred To Contact Endocrinology Diagnoses Hypothyroidism, acquired Procedures CONSULT TO ENDOCRINOLOGY CONSULT TO ENDOCRINOLOGY OFFICE/OUTPATIENT [facility] 60 MINUTES Anitra Mancera APRN.TARGET WORKER [address] [place] [address] Phone: tel: fax: Referral ID Status Reason Start Date Expiration Date V isits Requested Visits Authorized [id number] Closed PCP Requested Referral 11/12/2024 11/11/2025 1 1 Reason Comments ER F/U Reason Onset Date Comments Results 05/28/2025 Reason Comments F/U 3 Month Reason Onset Date Comments Population Health Navigation Outreach 06/29/2025 [facility] [place] [facility] Goals (unrecognized section and content) Goals may [...] 1201 (New Bag - Prov ider: Devin Zeng APRN - TREE LOADER [employer]AT) FOR RECORDS PERTAINING TO PATIENTS WHO ARE [...] BE BASED ON THE PRIMARY CLINICAL RECORDS. [facility] [employer] [facility]. provides no warranty or guarantee of the accuracy or completeness of information in this document.
[2025-07-09 22:05] LABS: Hematocrit 35.9 % (37-47); Hemoglobin 11.7 g/dL (12.0-15.0); Immature Granulocytes Count 0.040 X10^3/uL (0.0-0.0); Mean Corp Hgb Conc 32.6 g/dL (32-36); Mean Corpuscular Volume 91.1 fL (81-99); Mean Platelet Vol. 9.5 fl (6.2-12.0); NRBC Flagged by Analyzer 0 % (0-5); POSITIVE DIFFERENTIAL YES; Platelet Count 360 K/mm3 (150-450); RBC Distribution Width CV 13.9 % (11.6-14.6); RBC Distribution Width SD 46.6 fl (35.1-43.9); Red Blood Count 3.94 M/mm3 (4.2-5.4); White Blood Count 4.8 K/mm3 (4.4-11.0)
[2025-07-09] MEDS: 0.9% Normal Saline (1000mL) 1,000 ML 1000 ML IV (22:09)
[2025-07-09 22:28] LABS: Troponin T High Sensitivity 13 ng/L (<=14)
[2025-07-09 22:45] VITALS: BP 152/83; PULSE 85; RESP 18; O2SAT 96
[2025-07-09 22:45] LABS: Mucous, Urine 0 SEEN /hpf (<or=2+); Red Blood Cells-Urine 0 SEEN /hpf (0-5); Squamous Epithelial Cells - UA 0 SEEN /hpf (5-10)
[2025-07-09 22:56] LABS: Anion Gap 15 (5-15); BUN 18 mg/dL (4-19); BUN/Creat Ratio 34.6 RATIO (10-20); Calcium,Total 9.6 mg/dL (7.6-11.0); Carbon Dioxide 23.2 mmol/L (21.0-32.0); Chloride 95 mmol/L (98-108); Estimated Creatinine Clearance 35.97 ml/min (50-250); Glucose 108 mg/dL (70-99); Potassium 4.1 mmol/L (3.3-5.1)
[2025-07-09 23:06] LABS: Color, Urine Yellow (Yellow); Glucose, Dipstick Normal (Normal); Ketone-Dipstick Negative (Negative); Leukocyte Esterase-Dipstick 25 /ul (Negative); Nitrite-Dipstick Negative (Negative); Occult Blood-Urine Negative /ul (Negative); Protein-Dipstick Negative (Negative); Specific Gravity, Urine 1.010 (1.002-1.030); Urine Bilirubin Dipstick Negative (Negative)
--- NOTE | 2025-07-09 23:12 | RAD_ITS ---
PROCEDURE: CHEST PA AND LATERAL 07/09/2025 REASON FOR EXAM: DIZZINESS TECHNIQUE: CHEST PA AND LATERAL COMPARISON: Chest x-ray 05/31/2020 FINDINGS: Hardware: None. Heart: The heart size is normal. Mediastinum: The mediastinal contour is unremarkable. Lungs: The lungs are clear. Bones: The bones are unremarkable. RAD/Chest PA and Lateral IMPRESSION: NO ACUTE FINDINGS. Reading [facility]
[2025-07-10 00:13] VITALS: BP 147/75; PULSE 89; RESP 23; O2SAT 96; O2SAT 98
[2025-07-10 00:26] LABS: Troponin T High Sens 2 HR 14 ng/L (<=14)
[2025-07-10 00:42] VITALS: BP 147/75; PULSE 89; RESP 23; TEMP 36.8; O2SAT 98
[2025-07-10 00:43] VITALS: BP 147/76; PULSE 91; RESP 16; TEMP 36.6; O2SAT 96
== END 2025-07-10 00:44 | disposition home or self-care (01) ==
PROVIDERS: Emergency Provider Surgery; PCP Clinical Nurse Specialist Adult Health; Visit Provider Surgery
DX: R42 Dizziness and giddiness (principal); C25.9 Malignant neoplasm of pancreas, unspecified; E78.2 Mixed hyperlipidemia; J45.909 Unspecified asthma, uncomplicated; E03.9 Hypothyroidism, unspecified; D64.9 Anemia, unspecified
CPT/HCPCS: 70496; 70498; 71046; 71275; 80048; 81001; 84484; 85025; 87631; 93005; 96360; 96361; 99285; Q9967; A4216

== ENCOUNTER 2025-07-21 16:33 | Inpatient (IN) | payer MEDICARE, OTHER, SELFPAY ==
[2025-07-21 16:33] VITALS: BP 138/89; PULSE 94; RESP 18; TEMP 36.6; O2SAT 95; BMI 24.6
--- NOTE | 2025-07-21 17:03 | RAD_ITS ---
PROCEDURE: HIP, UNI W/ PELVIS 2-3 VIEWS 07/21/2025 REASON FOR EXAM: INJURY TECHNIQUE: HIP, UNI W/ PELVIS 2-3 VIEWS FINDINGS: Acute, comminuted, displaced left femoral intertrochanteric fracture. Moderate degenerative changes of the bilateral hips. Degenerative changes of the partially visualized spine. RAD/HIP, UNI W/ Pelvis 2-3 Views IMPRESSION: Left femoral intertrochanteric fracture. Reading Location: [id number]
--- NOTE | 2025-07-21 17:03 | EKG12_ITS ---
Test Reason : Blood Pressure : */* mmHG Vent. Rate : 96 BPM Atrial Rate : 96 BPM P-R Int : 216 ms QRS Dur : 76 ms QT Int : 380 ms P-R-T Axes : 77 54 65 degrees QTcB Int : 480 ms Sinus rhythm with 1st degree A-V block Low voltage QRS QTcB >= 480 msec Abnormal ECG Confirmed by SERGIO AMARAL, KATHLEEN ([id number]), multimedia editor EHSAN SONG ([id number]) on 07/22/2025 1:35:33 PM Referred By: Confirmed By: KATHLEEN HILL MD
--- NOTE | 2025-07-21 17:11 | ED.VIS.FALL ---
HPI HPI - Fall History of Present Illness Chief Complaint: Fall Informant: patient, spouse/S.O. and family Narrative Narrative: Brought in by EMS from home spouse daughter is present mechanical fall in the garage. She states she fell into the car then hit the ground with her hip. She hit her head. Did not lose conscious. Denies any blood thinners. Has seen Dr. Paniagua in the past.. Pain mainly in the hip. She does not ambulate any assistance. No history of pancreatic cancer diagnosed this year followed by Dr. King. She did a round of palliative treatment. Currently no chemo. Mild allergies however has tolerated morphine in the past. Was not given any medicines by EMS. Prior similar symptoms: No PFSH PFSH Medical History (Updated 07/22/25 @ 00:[address] Brian Rivera, ) Diverticulitis Cancer Hyperthyroidism Osteoporosis Costovertebral angle tenderness Anorexia Back pain RUY (generalized anxiety disorder) Panic Wears partial dentures Fibromyalgia Arthritis History of ulceration History of diverticulitis Panic disorder Medication monitoring encounter Ventral incisional hernia without obstruction or gangrene Decreased sense of taste Chronic sphenoidal sinusitis Chronic ethmoidal sinusitis Chronic maxillary sinusitis Family history of colon cancer in father Pre-op evaluation Hyperlipidemia Syncope and collapse Mixed hyperlipidemia PSVT (paroxysmal supraventricular tachycardia) Chest discomfort Palpitations Hypothyroidism Asthma Home Medications ?Medication ?Instructions ?Recorded ?Last Taken ?Type albuterol sulfate 90 mcg/actuation 1 puff inhalation Q4H PRN PRN 05/09/14 09/26/20 05:30 History aerosol inhaler Wheezing vit C 250 mg-vit E 90 mg-zinc 40 1 tab PO BID 11/22/17 Unknown History mg-copper 1 [id number]-txyfmi capsule (PreserVision AREDS-2) polyethylene glycol 3350 17 17 g PO QDAY PRN Constipation 01/31/18 Unknown History gram/dose oral powder (Miralax) acetaminophen 325 mg tablet 500 mg (1.5385 x 325 mg) PO Q4H 05/15/19 Unknown Rx PRN PRN Mild-Moderate Pain (1-5/10) CBD Oral (INFORMATIONAL USE 11/10/24 Unknown History ONLY-PT USES ORAL CBD) levalbuterol tartrate 45 2 puff inhalation Q4 PRN shortness 02/24/25 Unknown History mcg/actuation aerosol inhaler of breath or wheezing levothyroxine 50 mcg tablet 75 mcg PO DAILY 02/24/25 Unknown History ropinirole 0.5 mg tablet 0.5 mg PO DAILY 02/24/25 Unknown History lorazepam 0.5 mg tablet 0.5 mg PO BID PRN anxiety #60 tabs 03/12/25 Unknown Rx ondansetron 8 mg disintegrating 8 mg PO Q12H PRN nausea and 03/17/25 Unknown Rx tablet vomiting #30 tabs [id number] 1 cap PO TID #90 caps 06/09/25 Unknown Rx 3,000-9,500-15,000 unit capsule, delayed rel (Creon) propranolol 10 mg tablet 5 mg PO BID PRN anxiety 06/09/25 Unknown History clonazepam 0.5 mg tablet 0.5 mg PO BID PRN PRN anxiety 07/21/25 Unknown History doxycycline hyclate 100 mg capsule 100 mg PO BID bronchitis 07/21/25 07/21/25 08:00 History 100 mg escitalopram oxalate 5 mg tablet 2.5 mg PO DAILY 07/21/25 Unknown History gabapentin 100 mg capsule 100 mg PO TID 07/21/25 Unknown History nortriptyline 10 mg capsule 20 mg PO QHS sleep 07/21/25 Unknown History triamcinolone acetonide 0.1 % 1 applic topical DAILY PRN 07/21/25 Unknown History topical cream Allergy/AdvReac Type Severity Reaction Status Date / Time cocamidopropyl betaine Allergy Intermediate Rash Verified 07/09/25 20:49 Sulfa (Sulfonamide Allergy Swelling Verified 07/09/25 20:49 Antibiotics) Environmental Allergies: AdvReac Severe NEEDS Verified 07/09/25 20:49 Uncoded (dust) FOLLOW-UP mold AdvReac Severe NEEDS Verified 07/09/25 20:49 FOLLOW-UP metoprolol AdvReac Intermediate I feel Verified 07/09/25 20:49 awful codeine AdvReac Nausea Verified 07/09/25 20:49 diphenhydramine (From AdvReac Nausea Verified 07/09/25 20:49 Benadryl) hydrocodone bitartrate (From AdvReac Nausea Verified 07/09/25 20:49 Vicodin) oxycodone HCl (From Percocet) AdvReac Nausea Verified 07/09/25 20:49 tetracycline AdvReac Nausea/Vom/ Verified 07/09/25 20:49 Diarrhea Family History Father Colon cancer CAD (coronary artery disease) Mother CAD (coronary artery disease) Sister CVA (cerebral vascular accident) Brother Cancer Lung cancer Surgical History S/P ventral herniorrhaphy History of bilateral knee replacement Hx of rotator cuff surgery S/P carpal tunnel release S/P partial colectomy History of loop recorder H/O prior ablation treatment History of appendectomy History of tonsillectomy Social History household members: spouse Smoking Status: Never smoker alcohol intake: never substance use type: does not use caffeine: No what type of physical activity do you participate in: bicycling frequency: daily duration: 15-30 minutes/day seatbelt use: always do you feel safe at home: Yes ROS ROS ED Constitutional Constitutional ED: Denies fever(s) Cardiovascular Cardiovascular: Denies chest pain Respiratory/Chest Respiratory/Chest: Denies cough Gastrointestinal Gastrointestinal: Denies diarrhea or vomiting Musculoskeletal Musculoskeletal: Reports other Details: Left hip pain ; Denies back pain or neck pain Integumentary Denies rash or wounds Neurologic Neurologic: Reports headache(s); Denies weakness EXAM Physical Exam Const Vital Signs: 07/21/25 16:33 07/21/25 16:33 07/21/25 18:33 Temperature 97.9 F Temperature Source Oral Pulse Rate 94 96 Respiratory Rate 18 16 Respiratory Effort Normal Non-Labored Respiratory Depth Normal Respiratory Pattern Normal Blood Pressure 138/89 H Blood Pressure Mean 105 Pulse Ox 95 99 Oxygen Delivery Method Room Air Room Air Room Air 07/21/25 18:42 Temperature 98.2 F Temperature Source Pulse Rate 96 Respiratory Rate 16 Respiratory Effort Respiratory Depth Respiratory Pattern Blood Pressure 117/68 Blood Pressure Mean 84 Pulse Ox 99 Oxygen Delivery Method Positive well nourished and well developed Constitutional Narrative: GCS 15. General Appearance ED: well developed and NAD HEENT Reports moist mucous membranes normocephalic Eyes General Eye ED: Yes normal appearance of both eyes Neck full ROM Chest Wall inspection of chest normal and palpation of chest normal Chest: Negative for tenderness Resp normal respiratory effort and normal air movement Effort and Inspection: symmetric chest movement; Negative for respiratory distress Cardio regular rate, regular rhythm and no murmurs Peripheral Pulses: pulses 2+ throughout GI normal to inspection, nondistended, normoactive bowel sounds and non-tender Palpation: Negative for guarding or rebound tenderness present Extremity Extremity Narrative: Upper extremity forage motion without any tenderness. Right lower extremity: Negative logroll. Nontender. Pulses intact. Left lower extremity: Slightly shortened externally rotated pain with logroll. No mid femur tenderness no knee tenderness. Soft compartments. Pulses intact distally. General Extremety ED: Yes tenderness; Negative for edema General Extremity: Negative for edema Neuro oriented x3, CN's II-XII intact bilaterally and no sensory deficits noted Sensorium / Orientation: awake and alert Skin no rashes or lesions noted and no wounds MDM MDM MDM Narrative Medical decision making narrative: Interventions / MDM: Differential diagnosis: Left hip fracture, fall, pancreatic cancer, scalp contusion Diagnosis considered but do not suspect: intracranial hemorrhage however CT negative. My EKG interpretation: Sinus rate of 96, no ST changes. Imaging independently reviewed and interpreted by myself: 3 view left hip: Displaced intertrochanteric fracture. CT brain: No acute process. 1 view chest x-ray: No acute process. External documents reviewed: N/A Test considered but not ordered:N/A ED course: Mechanical fall with clinical concerns for left hip fracture. She bumped her head had small contusion. Trauma scans head and neck ordered. Left x-ray of the hip. IV established for labs. Preop EKG chest x-ray also ordered. IV morphine Zofran ordered for symptom control. 1820: CT brain negative x-ray confirms intertrochanteric fracture. Chest x-ray negative. Labs have white count 21,000. No pneumonia on x-ray I did add in the urine. Creatinine 0.59. Patient does have pancreatic cancer recent on palliative care. She is ambulatory without assistance prior to her injury. I will discuss with orthopedic service and hospitalist for admission. 1830: Spoke with Dr. Muñoz, discussed patient's history and workup findings. Plan admission to hospitalist for medical clearance for repair tomorrow. Urine returning negative at this time for infection. Leukocytosis likely reactive from her fall and the pain. I spoke with Dr. Zarate for admission. Re-evaluation: stable Disposition discussed with patient/family/significant other: Patient and family Case discussed with consulting clinician: Orthopedics, hospitalist This note was generated with [employer] dictation software. It may contain incorrect words, spelling, and punctuation that were not noted in checking the note before signing. Lab Data Attestation: I reviewed the patient's lab results. Labs: Laboratory Results - last 24 hr 07/21/25 07/21/25 07/21/25 17:13 17:34 18:11 WBC 21.4 H RBC 3.62 L Hgb 10.7 L Hct 32.3 L MCV 89.2 MCH 29.6 MCHC 33.1 RDW Std Deviation 45.8 H RDW Coeff of Collin 14.2 Plt Count 395 MPV 9.0 Immature Gran % (Auto) 1.400 H Neut % (Auto) 86.1 H Lymph % (Auto) 3.3 L [place] % (Auto) 6.8 Eos % (Auto) 2.0 Baso % (Auto) 0.4 Absolute Neuts (auto) 18.4 H Absolute Lymphs (auto) 0.70 L Nucleated RBC % 0 PT 13.3 INR 1.0 APTT 29.1 Sodium 135 Potassium 3.9 Chloride 99 Carbon Dioxide 22.5 Anion Gap 14 BUN 17 Creatinine 0.59 L Estim Creat Clear Calc 39.41 L Est GFR (MDRD) Non-Af 86 BUN/Creatinine Ratio 29.1 H Glucose 112 H Calcium 8.8 Urine Color Straw Urine Clarity Clear Urine pH 6.0 Ur Specific [place] 1.015 Urine Protein Negative Urine Glucose (UA) Normal Urine Ketones 50 H Urine Occult Blood Negative Urine Nitrite Negative Urine Bilirubin Negative Urine Urobilinogen Normal Ur Leukocyte Esterase Negative Urine RBC 0-5 SEEN Urine WBC 0-5 SEEN Ur Squamous Epith Cells 0-5 SEEN Calcium Oxalate Crystal 1+ Urine Bacteria 0 SEEN Urine Mucus 0 SEEN Blood Type O POSITIVE Antibody Screen NEGATIVE Radiography Diagnostic Testing: Clinical Impression(s) from Imaging Studies Hip/Pelvis X-Ray 07/21/25 17:03 IMPRESSION: Left femoral intertrochanteric fracture. Reading Location: [facility] Chest X-Ray 07/21/25 17:30 IMPRESSION: No Acute Findings. Reading Location: [facility] Brain CT 07/21/25 17:40 IMPRESSION: No acute intracranial abnormality. Reading Location: [id number] Cervical Spine CT 07/21/25 17:40 IMPRESSION: No acute osseous abnormality. Thyroid nodules. Further characterization with nonemergent ultrasound is recommended. Spondylosis. Reading Location: [id number] Discharge Plan Dx/Rx/DC Orders Clinical Impression: Fall, Pancreatic cancer, Closed fracture of left hip, Leukocytosis Disposition Disposition: Acute Care Hospital [facility] Discharge Date/Time: 07/21/25 21:10
[2025-07-21] MEDS: 0.9% Normal Saline (500mL Bag) 500 ML 1000 ML IV (17:16)
[2025-07-21 17:26] LABS: Hematocrit 32.3 % (37-47); Hemoglobin 10.7 g/dL (12.0-15.0); Immature Granulocytes Count 0.290 X10^3/uL (0.0-0.0); Mean Corp Hgb Conc 33.1 g/dL (32-36); Mean Corpuscular Volume 89.2 fL (81-99); Mean Platelet Vol. 9.0 fl (6.2-12.0); NRBC Flagged by Analyzer 0 % (0-5); Platelet Count 395 K/mm3 (150-450); RBC Distribution Width CV 14.2 % (11.6-14.6); RBC Distribution Width SD 45.8 fl (35.1-43.9); Red Blood Count 3.62 M/mm3 (4.2-5.4); White Blood Count 21.4 K/mm3 (4.4-11.0)
--- NOTE | 2025-07-21 17:30 | RAD_ITS ---
PROCEDURE: CHEST 1 VIEW (PORTABLE) 07/21/2025 REASON FOR EXAM: PREOP TECHNIQUE: Frontal view of the chest. COMPARISON: 07/09/2025. FINDINGS: A loop recorder is present. The heart is normal in size. No consolidation pleural effusion or pneumothorax. No acute osseous abnormalities. RAD/Chest 1 View (Portable) IMPRESSION: No Acute Findings. Reading Location: [id number]
--- NOTE | 2025-07-21 17:40 | CT_ITS ---
PROCEDURE: SPINE CERVICAL WITHOUT CONTRAS 07/21/2025 REASON FOR EXAM: FALL TECHNIQUE: SPINE CERVICAL WITHOUT CONTRAS Coronal and Sagittal reconstruction series were provided. One or more dose reduction techniques were used (e.g., Automated exposure control, adjustment of the mA and/or kV according to patient size, use of iterative reconstruction technique. RADIATION DOSE SUMMARY: CTDlvol: 12 mGy DLP: 206 mGycm FINDINGS: No evidence of acute fracture or dislocation. Severe degenerative changes of the mid/lower cervical spine. Grade 1 anterolisthesis of C3 on C4. Lung apices are clear. Calcified thyroid nodules. CT/Spine Cervical without Contras IMPRESSION: No acute osseous abnormality. Thyroid nodules. Further characterization with nonemergent ultrasound is recom mended. Spondylosis. Reading Location: [id number]
--- NOTE | 2025-07-21 17:40 | CT_ITS ---
PROCEDURE: BRAIN/HEAD WITHOUT CONTRAST 07/21/2025 REASON FOR EXAM: HEAD INJURY TECHNIQUE: BRAIN/HEAD WITHOUT CONTRAST Coronal and Sagittal reconstruction series were provided. One or more dose reduction techniques were used (e.g., Automated exposure control, adjustment of the mA and/or kV according to patient size, use of iterative reconstruction technique. RADIATION DOSE SUMMARY: CTDlvol: 44 mGy DLP: 779 mGycm FINDINGS: Mild global parenchymal atrophy. Chronic microvascular ischemia. No evidence of acute hemorrhage or infarction. No extra-axial blood or fluid collections. Pansinus mucosal thickening. Mastoid air cells are clear. The calvarial vault and skull base are intact. CT/Brain/Head without Contrast IMPRESSION: No acute intracranial abnormality. Reading Location: [id number]
[2025-07-21 18:11] LABS: Anion Gap 14 (5-15); BUN 17 mg/dL (4-19); BUN/Creat Ratio 29.1 RATIO (10-20); Calcium,Total 8.8 mg/dL (7.6-11.0); Carbon Dioxide 22.5 mmol/L (21.0-32.0); Chloride 99 mmol/L (98-108); Estimated Creatinine Clearance 39.41 ml/min (50-250); Glucose 112 mg/dL (70-99); Potassium 3.9 mmol/L (3.3-5.1)
[2025-07-21 18:14] LABS: Mucous, Urine 0 SEEN /hpf (<or=2+)
[2025-07-21 18:16] LABS: Color, Urine Straw (Yellow); Glucose, Dipstick Normal (Normal); Ketone-Dipstick 50 mg/dl (Negative); Leukocyte Esterase-Dipstick Negative /ul (Negative); Nitrite-Dipstick Negative (Negative); Occult Blood-Urine Negative /ul (Negative); Protein-Dipstick Negative (Negative); Specific Gravity, Urine 1.015 (1.002-1.030); Urine Bilirubin Dipstick Negative (Negative)
[2025-07-21 18:25] LABS: Partial Thromboplast Time 29.1 Seconds (24.1-36.2); Prothrombin Time (Protime)PT. 13.3 SECONDS (11.7-14.9)
[2025-07-21 18:33] VITALS: PULSE 96; RESP 16; O2SAT 99
[2025-07-21 18:42] VITALS: BP 117/68; PULSE 96; RESP 16; TEMP 36.8; O2SAT 99
[2025-07-21 19:17] LABS: Calcium Oxalate Crystals Ur 1+ /hpf (<or=2+); Red Blood Cells-Urine 0-5 SEEN /hpf (0-5)
[2025-07-21 19:18] LABS: Squamous Epithelial Cells - UA 0-5 SEEN /hpf (5-10)
--- NOTE | 2025-07-21 19:22 | PCM.HP.STD ---
HPI - General General Date of Admission: 07/21/25 Date of Service: 07/21/25 Chief Complaint: Fall with left hip pain HPI Narrative MAIA PAYAN, is a 89 F who presented to [facility] on 07/21/2025 with left hip pain after a fall at home. Patient lives at home with her , has decent functional status at baseline. She had mechanical fall in her garage today. She tripped and fell into the car initially, then down to the ground and onto her hip. She did hit her head but denied losing consciousness. Not on any blood thinners. CT brain and C-spine in the ED unremarkable. Hip x-ray showed left femoral intertrochanteric fracture. Case was discussed with orthopedics who recommended admission to medicine with plan for surgery tomorrow. Hospitalist was then contacted for admission. I saw the patient at bedside in the ED, daughter was present. Patient is very hard of hearing but otherwise was alert and oriented x 3. She was laying back in bed and fairly comfortable at rest but noted significant pain with any movement. She had been given doses of IV morphine for the pain with only mild improvement. She otherwise denied any acute concerns currently. Will be admitted for further management. [facility]LY [facility] Medical History Costovertebral angle tenderness Anorexia Back pain RUY (generalized anxiety disorder) Panic Wears partial dentures Fibromyalgia Arthritis History of ulceration History of diverticulitis Panic disorder Medication monitoring encounter Ventral incisional hernia without obstruction or gangrene Decreased sense of taste Chronic sphenoidal sinusitis Chronic ethmoidal sinusitis Chronic maxillary sinusitis Family history of colon cancer in father Pre-op evaluation Hyperlipidemia Syncope and collapse Mixed hyperlipidemia PSVT (paroxysmal supraventricular tachycardia) Chest discomfort Palpitations Hypothyroidism Asthma Home Medications ?Medication ?Instructions ?Recorded ?Last Taken ?Type albuterol sulfate 90 mcg/actuation 1 puff inhalation Q4H PRN PRN 05/09/14 09/26/20 05:30 History aerosol inhaler Wheezing vit C 250 mg-vit E 90 mg-zinc 40 1 tab PO BID 11/22/17 Unknown History mg-copper 1 [id number] capsule (PreserVision AREDS-2) polyethylene glycol 3350 17 17 g PO QDAY PRN Constipation 01/31/18 Unknown History gram/dose oral powder (Miralax) acetaminophen 325 mg tablet 500 mg (1.5385 x 325 mg) PO Q4H 05/15/19 Unknown Rx PRN PRN Mild-Moderate Pain (1-5/10) CBD Oral (INFORMATIONAL USE 11/10/24 Unknown History ONLY-PT USES ORAL CBD) nortriptyline 10 mg capsule 10 mg PO BID #120 caps 01/20/25 Unknown Rx levalbuterol tartrate 45 2 puff inhalation Q4 PRN shortness 02/24/25 Unknown History mcg/actuation aerosol inhaler of breath or wheezing levothyroxine 50 mcg tablet 75 mcg PO DAILY 02/24/25 Unknown History ropinirole 0.5 mg tablet 0.5 mg PO DAILY 02/24/25 Unknown History lorazepam 0.5 mg tablet 0.5 mg PO BID PRN anxiety #60 tabs 03/12/25 Unknown Rx ondansetron 8 mg disintegrating 8 mg PO Q12H PRN nausea and 03/17/25 Unknown Rx tablet vomiting #30 tabs [id number] 1 cap PO TID #90 caps 06/09/25 Unknown Rx 3,000-9,500-15,000 unit capsule, delayed rel (Creon) propranolol 10 mg tablet 5 mg PO BID PRN anxiety 06/09/25 Unknown History clonazepam 0.5 mg tablet 0.5 mg PO BID PRN PRN anxiety 07/21/25 Unknown History dexamethasone 0.5 mg tablet 0.5 mg PO DAILY 07/21/25 Unknown History escitalopram oxalate 5 mg tablet 2.5 mg PO DAILY 07/21/25 Unknown History gabapentin 100 mg capsule 100 mg PO TID 07/21/25 Unknown History triamcinolone acetonide 0.1 % 1 applic topical DAILY PRN 07/21/25 Unknown History topical cream Allergy/AdvReac Type Severity Reaction Status Date / Time cocamidopropyl betaine Allergy Intermediate Rash Verified 07/09/25 20:49 Sulfa (Sulfonamide Allergy Swelling Verified 07/09/25 20:49 Antibiotics) Environmental Allergies: AdvReac Severe NEEDS Verified 07/09/25 20:49 Uncoded (dust) FOLLOW-UP mold AdvReac Severe NEEDS Verified 07/09/25 20:49 FOLLOW-UP metoprolol AdvReac Intermediate I feel Verified 07/09/25 20:49 awful codeine AdvReac Nausea Verified 07/09/25 20:49 diphenhydramine (From AdvReac Nausea Verified 07/09/25 20:49 Benadryl) hydrocodone bitartrate (From AdvReac Nausea Verified 07/09/25 20:49 Vicodin) oxycodone HCl (From Percocet) AdvReac Nausea Verified 07/09/25 20:49 tetracycline AdvReac Nausea/Vom/ Verified 07/09/25 20:49 Diarrhea Family History Father Colon cancer CAD (coronary artery disease) Mother CAD (coronary artery disease) Sister CVA (cerebral vascular accident) Brother Cancer Lung cancer Surgical History S/P ventral herniorrhaphy History of bilateral knee replacement Hx of rotator cuff surgery S/P carpal tunnel release S/P partial colectomy History of loop recorder H/O prior ablation treatment History of appendectomy History of tonsillectomy Social History household members: spouse Smoking Status: Never smoker alcohol intake: never substance use type: does not use caffeine: No what type of physical activity do you participate in: bicycling frequency: daily duration: 15-30 minutes/day seatbelt use: always do you feel safe at home: Yes ROS Constitutional Constitutional: Reports fatigue; Denies chills or fever(s) Cardiovascular Cardiovascular: Denies chest pain Respiratory/Chest Respiratory/Chest: Denies shortness of breath at rest Gastrointestinal Gastrointestinal: Denies abdominal pain Musculoskeletal Musculoskeletal: Reports joint pain Neurologic Neurologic: Denies dizziness, focal weakness, headache(s), numbness or tingling Vital Signs Vital Signs Vital Signs: 07/21/25 16:33 07/21/25 16:33 07/21/25 18:33 Temperature 97.9 F Temperature Source Oral Pulse Rate 94 96 Respiratory Rate 18 16 Respiratory Effort Normal Non-Labored Respiratory Depth Normal Respiratory Pattern Normal Blood Pressure 138/89 H Blood Pressure Mean 105 Pulse Ox 95 99 Oxygen Delivery Method Room Air Room Air Room Air 07/21/25 18:42 Temperature 98.2 F Temperature Source Pulse Rate 96 Respiratory Rate 16 Respiratory Effort Respiratory Depth Respiratory Pattern Blood Pressure 117/68 Blood Pressure Mean 84 Pulse Ox 99 Oxygen Delivery Method Weight Weight: 59.2 kg Body Mass Index (BMI) 24.6 Physical Exam Const alert, oriented x3, no apparent distress and average body habitus Constitutional Narrative: Elderly female, hard of hearing but otherwise alert and oriented x 3, laying back in bed fairly comfortably but remaining quite still to avoid pain with movement, answering questions with appropriate responses, in no acute distress. General Appearance: cooperative HEENT normocephalic, head/scalp atraumatic, hearing grossly normal bilaterally, nasal mucous membranes and turbinates normal and moist oral mucous membranes Eyes PERRL, EOMs intact bilaterally and conjunctivae normal Neck full ROM Chest inspection of chest normal Resp normal respiratory effort, normal air movement, no use of accessory muscles and clear to auscultation bilaterally Cardio regular rate, regular rhythm, no murmurs and peripheral pulses 2+ throughout GI normal to inspection, nondistended, normoactive bowel sounds, soft to palpation, non-tender and non-distended Back/Spine normal ROM Extremity Extremity Narrative: Left leg slightly shortened and externally rotated. Mild tenderness to palpation noted. Did not attempt any motion. Skin no rashes or lesions noted Psych mental status grossly normal Results Lab / Micro Data 07/21/25 17:13 07/21/25 17:13 Labs: Laboratory Results - last 24 hr 07/21/25 17:13: WBC 21.4 H, RBC 3.62 L, Hgb 10.7 L, Hct 32.3 L, MCV 89.2, MCH 29.6, MCHC 33.1, RDW Std Deviation 45.8 H, RDW Coeff of Collin 14.2, Plt Count 395, MPV 9.0, Immature Gran % (Auto) 1.400 H, Neut % (Auto) 86.1 H, Lymph % (Auto) 3.3 L, [place] % (Auto) 6.8, Eos % (Auto) 2.0, Baso % (Auto) 0.4, Absolute Neuts (auto) 18.4 H, Absolute Lymphs (auto) 0.70 L, Nucleated RBC % 0, PT 13.3, INR 1.0, APTT 29.1, Sodium 135, Potassium 3.9, Chloride 99, Carbon Dioxide 22.5, Anion Gap 14, BUN 17, Creatinine 0.59 L, Estim Creat Clear Calc 39.41 L, Est GFR (MDRD) Non-Af 86, BUN/Creatinine Ratio 29.1 H, Glucose 112 H, Calcium 8.8 07/21/25 17:34: Blood Type O POSITIVE, Antibody Screen NEGATIVE 07/21/25 18:11: Urine Color Straw, Urine Clarity Clear, Urine pH 6.0, Ur Specific [place] 1.015, Urine Protein Negative, Urine Glucose (UA) Normal, Urine Ketones 50 H, Urine Occult Blood Negative, Urine Nitrite Negative, Urine Bilirubin Negative, Urine Urobilinogen Normal, Ur Leukocyte Esterase Negative, Urine RBC 0-5 SEEN, Urine WBC 0-5 SEEN, Ur Squamous Epith Cells 0-5 SEEN, Calcium Oxalate Crystal 1+, Urine Bacteria 0 SEEN, Urine Mucus 0 SEEN Imaging Radiology Impression Hip/Pelvis X-Ray 07/21/25 17:03 IMPRESSION: Left femoral intertrochanteric fracture. Reading Location: [facility] Chest X-Ray 07/21/25 17:30 IMPRESSION: No Acute Findings. Reading Location: [facility] Brain CT 07/21/25 17:40 IMPRESSION: No acute intracranial abnormality. Reading Location: [facility] Cervical Spine CT 07/21/25 17:40 IMPRESSION: No acute osseous abnormality. Thyroid nodules. Further characterization with nonemergent ultrasound is recommended. Spondylosis. Reading Location: [facility] Assessment & Plan Assessment/Plan (1) Fracture, intertrochanteric, left femur: PLAN: Plan Patient is an 89-year-old female who presented to [facility] ED on 07/21/2025 with left hip pain after a fall at home. 1. Left femoral intertrochanteric fracture due to mechanical fall ? Admit under inpatient status to [facility]. Orthopedic surgery consulted. PT/OT/case management consulted. Hip x-ray showed left femoral intertrochanteric fracture. Preoperative evaluation as below. N.p.o. at midnight with plan for procedure tomorrow. Pain control with scheduled Tylenol, p.o. tramadol as needed (has reported allergies to other p.o. opiates), and IV Dilaudid as needed. SCDs for DVT prophylaxis for now, will defer to orthopedics on DVT prophylaxis postoperatively. 2. Preoperative evaluation ? Labs/imaging: Hemoglobin 10.7, creatinine 0.59 on admit; both are at baseline. Chest x-ray with clear lung heredia and otherwise unremarkable. Hemodynamically stable on room air at rest in the ED. No further labs or imaging needed preoperatively. Follow-up CBC and BMP postoperatively. ? Cardiac eval: EKG with normal sinus rhythm and no ST changes. No history of heart failure noted and chest x-ray clear on admit as above. No further cardiac workup needed preoperatively. ? Medications: Okay to continue all home medications preoperatively, no need to hold any medications. ? Prior procedural complications: None. ? Recommendation: Patient is medically optimized for procedure. 3. Pancreatic cancer with cancer related pain ? Follows with oncology and radiation oncology. Last saw Dr. King with oncology on 07/06, see office note for further details. In short, found to have pancreatic head mass in December 2024. Biopsy confirmed malignancy. No liver metastases noted. Opted for palliative radiation therapy and had this done in early April. Has been on observation since then. No inpatient needs, continue outpatient follow-up. Continue home gabapentin. 4. Anxiety/depression ? Continue home escitalopram, clonazepam as needed, nortriptyline and propranolol as needed. 5. Hypothyroidism ? Continue home Synthroid. DVT prophylaxis: SCDs CODE STATUS: Full code, verified Expected disposition: TBD Total clinical time spent by myself addressing the patient's medical issues, reviewing all the data, and collaborating with patient's care team: 75 minutes. Charges/Coding Visit Charges Inpatient E&M: 56848 Init Hosp L3
[2025-07-21 20:00] VITALS: BP 139/85; PULSE 91; RESP 19; TEMP 36.5; O2SAT 99
[2025-07-21] MEDS: Albuterol 2.5 MG/3 ML VIAL.NEB. INHALATION (20:27)
[2025-07-21 20:30] VITALS: PULSE 93; RESP 20
[2025-07-21 21:39] VITALS: BMI 21.8
[2025-07-21 21:47] VITALS: BP 128/81; PULSE 100; RESP 18; TEMP 36.6; O2SAT 96
[2025-07-21] MEDS: Multivitamin (Healthy Eyes) Capsule 1 CAP PO (22:15)
[2025-07-21] MEDS: HYDROmorphone 0.5 MG/0.5 ML SYRINGE IV (22:15)
[2025-07-22] VITALS (16 sets, daily range): BP systolic 103–139; BP diastolic 64–91; PULSE 82–95; RESP 16–18; TEMP 36.2–36.9; O2SAT 92–100; BMI 21.8
[2025-07-22] MEDS: HYDROmorphone 0.5 MG/0.5 ML SYRINGE IV ×5 (02:46→18:44)
[2025-07-22] MEDS: 0.9% Saline Lock 10 ML Syringe IV ×6 (02:46→14:24)
[2025-07-22 05:55] LABS: Hematocrit 30.2 % (37-47); Hemoglobin 10.1 g/dL (12.0-15.0); Mean Corp Hgb Conc 33.4 g/dL (32-36); Mean Corpuscular Volume 89.3 fL (81-99); Mean Platelet Vol. 9.2 fl (6.2-12.0); Platelet Count 298 K/mm3 (150-450); RBC Distribution Width CV 14.3 % (11.6-14.6); RBC Distribution Width SD 45.9 fl (35.1-43.9); Red Blood Count 3.38 M/mm3 (4.2-5.4); White Blood Count 6.8 K/mm3 (4.4-11.0)
[2025-07-22 06:24] LABS: Anion Gap 10 (5-15); BUN 16 mg/dL (4-19); BUN/Creat Ratio 32.4 RATIO (10-20); Calcium,Total 8.4 mg/dL (7.6-11.0); Carbon Dioxide 25.1 mmol/L (21.0-32.0); Chloride 102 mmol/L (98-108); Estimated Creatinine Clearance 34.24 ml/min (50-250); Glucose 120 mg/dL (70-99); Potassium 4.0 mmol/L (3.3-5.1)
[2025-07-22] MEDS: Albuterol 2.5 MG/3 ML VIAL.NEB. INHALATION (10:30)
[2025-07-22] MEDS: 0.9% Normal Saline (1000mL) 1,000 ML 100 ML IV ×2 (11:29→21:28)
--- NOTE | 2025-07-22 13:10 | CASEMGMT ---
Addendum entered by Grecia Russell 07/22/25 18:12: Family requested Medical alert info and this was given to them. Original Note: RN?CM?ASSESSMENT ? RN?CM?to room to meet with patient for initial transition planning/care coordination?assessment.?RN?CM?introduced self and role at [facility].? Pt voices understanding and consents to?assessment?at this time.? Pt resting in bed in no distress at this time.? Family @ bedside and pt agreeable to them being present during assessment. Pt is A/O at this time and answers all questions appropriately.?? Care providers, pharmacy, and demographics verified/updated at this time. ? Strata:3 PCP: Anitra Hummel, [facility] Specialists: Dr King-oncology. Pt sees a psychiatrist @ [facility]. Palliative: Pt is active w/[facility]. E-mail sent to them notifying them of pt's admission to [facility]. Preferred Pharmacy: [facility] Insurance: [facility], [place] Prescription Benefit:?yes LNOK: , Lon. Daughter, Gretchen. Living Arrangements: Lives w/ in one-story home w/basement and 3 steps to enter w/railing x 1. Pt states she goes to the basement at times to empty the dehumidifier and was able to do stairs w/out any difficulty @ her baseline. Independent w/ADL's, IADl's, and manages her own medications. Transportation:?Pt states drives self and states no transportation concerns at this time.? also drives. DME: ?States has the following DME:?BSC, cane, walker. She has a shower chair available, but does not use. HHC/SNF: Hx SW in 2011. No hx of HHC. ? Pt wishes to return home, if able, but states would be amenable to SNF, if needed. Questions answered re: SNF and insurance. Pt to go OR today for hip surgery and aware PT/OT would evaluate her tomorrow. A list of SNF providers including quality and resource use data and consistent with the patient?s preferred geographic region, medical needs, and insurance network were provided from the [employer] Guide to review and to choose top 3 preferences if SNF is recommended. CM?to follow for further discharge planning/needs.? Pt and family voice no further concerns/needs at this time.? Advised them to ask for?CM?if any further questions/concerns/needs arise.? They voice understanding. ? PLAN:??TBD, pending progress w/therapy. SNF vs Home w/HHC or OP therapy. ? Camelia BSN?RN?CM
--- NOTE | 2025-07-22 13:33 | CHAPLAIN ---
Type of Pastoral Visit _x__ Initial Visit ___ Follow-up Visit ___ On-call Visit ___ General Patient Visit ___ Spiritual Assessment ___ Family Conference ___ Bereavement ___ Rapid Response ___ Code Blue ___ Other (describe below) Pastoral Care Referral From _x__ Patient ___ Family ___ Nurse ___ Physician ___ Order Worker ___ Die Trimmer ___ Other (describe below) Sacrament/Intervention _x__ Active listening ___ Anointing ___ Shinto ___ Bereavement ___ Communion ___ Judith exploration ___ ___ Life review ___ Prayer ___ Reconciliation ___ Sacrament of Sick _x__ Supportive presence ___ Wedding ___ Other (describe below) Pastoral Comments patient is sleeping at first attempt; left a calling card; at second attempt the patient is awake and a family member is with her; pt reports previous pain but doing better now that pain medications are in effect; other family members come into the room and more are expected soon; offer of support and presence to all; no other needs identified
[2025-07-22] MEDS: Lactated Ringers 1,000 ML 15 ML IV (14:49)
--- NOTE | 2025-07-22 15:09 | PRE.ANES_ITS ---
ASA Classification* ASA Classification ASA Classification: 4 and E Assessment & Plan Anesthesia* Anesthesia Assessment Anesthesia Assessment: Discussed sedation and/or anesthesia options, risks, benefits, and alternatives with patient/parents/legal guardian/POA. Questions invited. The patient/parents/legal guardian/POA seems to understand and agrees to proceed with anesthesia plan. Reviewed the physical assessment, medical history, allergy history and patient home medications list prior to surgery/procedure/anesthetic and documented any changes. Performed airway and anesthesia risk assessments. Anesthesia Type Anesthesia Type: General History Source History Obtained from:: Patient and Chart Anesthesia Focused Assessment* Temperature: 98.4 F Pulse Rate: 91 Blood Pressure: 115/64 Respiratory Rate: 16 Pulse Ox: 93 Oxygen Delivery Method: Room Air Airway Assessment Mouth opens: 2 cm Mallampati Score: II Teeth Condition: Intact Neck Range of motion (ROM): Full ROM Labs Anesthesia Preop lab: CBC WBC 6.8 K/mm3 (4.4-11.0) 07/22/25 05:07/22/25 RBC 3.38 M/mm3 (4.2-5.4) L 07/22/25 05:18 07/22/25 Hgb 10.1 g/dL (12.0-15.0) L 07/22/25 05:18 5 Hct 30.2 % (37-47) L 07/22/25 05:18 07/22/25 Plt Count 298 K/mm3 (150-450) 07/22/25 05:18 07/22/25 CHEMISTRY Potassium 4.0 mmol/L (3.3-5.1) 07/22/25 05:18 07/22/25 Sodium 138 mmol/L (133-145) 07/22/25 05:18 07/22/25 BUN 16 mg/dL (4-19) 07/22/25 05:07/22/25 Creatinine 0.49 mg/dL (0.70-1.20) L 07/22/25 05:18 Glucose 120 mg/dL (70-99) H 07/22/25 05:18 07/22/25 TSH 2.960 uIU/mL (0.300-4.200) 07/22/25 05:07/03 COAG PT 13.3 SECONDS (11.7-14.9) 07/21/25 17:13 Pre-Assessment Diagnosis/Proposed Procedure Planned Operative Procedure(s): IM Nail Anesthesia History 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 When Was Last Pacemaker Check QUESTION #4 FULL TEXT: You/Your Family Experience fever (hyperthermia) with Anesthesia Last Oral Intake Last Oral intake: Last Oral Intake NPO since 00:00 07/22/25 10:11 Meds taken in AM with sips of water? Meds patient instructed to take am of surgery PONV PONV - electric organ inspector and repairer: PONV - electric organ inspector and repairer Female HX of Motion Sickness HX of N/V After Surgery Non-Smoker Duration of Surgery greater than 60 minutes Number of Risk Factors PONV Score Height & Weight Height & Weight: Anesthesia: Height & Weight Height 5 ft 07/22/25 10:11 Weight: 50.712 kg 07/22/25 10:11 Body Mass Index (BMI) 21.8 07/22/25 10:11 Respiratory Assessment Respiratory Assessment - electric organ inspector and repairer: Respiratory Tract Infection Hx - electric organ inspector and repairer Hx Respiratory Tract Infection No 07/21/25 22:44 STOP Sleep Apnea STOP Sleep Apnea - electric organ inspector and repairer: STOP Sleep Apnea - electric organ inspector and repairer Hx Hypertension No 07/21/25 21:39 Hx Sleep Apnea No 07/21/25 21:39 CPAP No 07/21/25 21:39 BIPAP Do you snore loudly (louder No 07/21/25 21:39 than talking or can be heard Do you often feel tired/ No 07/21/25 21:39 fatigued/ sleepy during daytime? Has anyone observed you stop No 08/20/25 21:39 breathing during sleep? STOP Results Negative 07/21/25 21:39 QUESTION #5 FULL TEXT : Do you snore loudly (louder than talking or can be heard through closed doors)? 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 Specify any problems Hx of Preganancy in last 3 N/A 07/21/25 21:39 Months Nurse Filling Out Transfusion TWOLF 07/21/25 21:39 & Questions: Date: 07/21/25 07/21/25 21:39 Time: 21:41 07/21/25 21:39 Patient unable to answer at this time (ie. confused, unrespo /Reproduction History /Reproductive History - electric organ inspector and repairer: /Reproductive Hx- electric organ inspector and repairer Hx Now Gestational Age (in weeks): EDC: Hx Hx Para Hx Section SAB Active Medications Active Medications: Current Medications Generic Name Dose Route Start Last Admin Trade Name Freq PRN Reason Stop Dose Admin Acetaminophen 1,000 mg 07/21/25 22:00 07/22/25 14:11 Acetaminophen 500 Mg Tablet PO Not Given Q8 RENAE Albuterol Sulfate 2.5 mg 07/21/25 21:28 07/22/25 10:30 Albuterol 2.5 Mg/3 Ml Vial.Neb. INHALATION 2.5 mg Q4H PRN PRN Administration Wheezing Clonazepam 0.5 mg 07/21/25 21:20 07/21/25 22:32 Clonazepam 0.5 Mg Tablet PO 0.5 mg BID PRN PRN Administration anxiety Doxycycline Monohydrate 100 mg 07/21/25 23:00 07/22/25 05:11 Doxycycline 100 Mg Capsule PO 07/22/25 22:01 100 mg BID RENAE Administration Escitalopram Oxalate 2.5 mg 07/22/25 10:00 07/22/25 10:06 Escitalopram Oxalate 10 Mg Tablet PO Not Given DAILY RENAE Hydromorphone HCl 0.5 mg 07/21/25 21:20 07/22/25 14:18 Hydromorphone 0.5 Mg/0.5 Ml Syringe IV 0.5 mg Q4H PRN PRN Administration Pain Score 6-10 Sodium Chloride 250 mls @ 15 mls/hr 07/21/25 21:45 IV .[id number] PRN Saline Flush Sodium Chloride 250 mls @ 15 mls/hr 07/21/25 21:45 IV .[id number] PRN Additional IVPB Infusion Sodium Chloride 1,000 mls @ 100 mls/hr 07/22/25 10:35 07/22/25 11:29 IV 100 mls/hr .Q10H RENAE Administration Lactated Ringer's 1,000 mls @ 15 mls/hr 07/22/25 14:45 07/22/25 14:49 IV 15 mls/hr .Q48H RENAE Administration Levothyroxine Sodium 75 mcg 07/22/25 06:00 07/22/25 05:14 Levothyroxine 75 Mcg Tablet PO 75 mcg DAILY@0600 RENAE Administration Melatonin 3 mg 07/21/25 21:20 Melatonin 3 Mg Tablet PO QHS PRN PRN INSOMNIA Multivitamins/Minerals 1 cap 07/21/25 22:00 07/22/25 10:06 Multivitamin (Healthy Eyes) Capsule PO Not Given BID RENAE Nortriptyline HCl 10 mg 07/21/25 22:00 07/22/25 10:06 Nortriptyline 10 Mg Capsule PO Not Given BID RENAE Ondansetron HCl 4 mg 07/21/25 21:20 07/22/25 14:24 Ondansetron 4 Mg/2 Ml Vial IV 4 mg Q8H PRN PRN Administration NAUSEA/VOMITING Pancrelipase 1 cap 07/22/25 08:00 07/22/25 10:[address] Creon [address] Capsule PO Not Given TIDCM RENAE Polyethylene Glycol 17 gm 07/21/25 21:32 Polyethylene Glycol 3350 17 Gm Packet PO DAILY PRN PRN Constipation Pramipexole Dihydrochloride 0.25 mg 07/21/25 22:00 07/21/25 22:15 Pramipexole Di-Hcl 0.25 Mg Tablet PO 0.25 mg QHS RENAE Administration Sodium Chloride 10 - 40 ml 07/21/25 21:45 07/22/25 14:24 0.9% Saline Lock 10 Ml Syringe IV 10 ml UD PRN Administration SALINE FLUSH Tramadol HCl 50 mg 07/21/25 21:20 Tramadol 50 Mg Tablet PO Q6H PRN PRN Pain Score 4-5 PFSH Medical History (Updated 07/22/25 @ 00:[address] Brian Rivera, DO) Diverticulitis Cancer Hyperthyroidism Osteoporosis Costovertebral angle tenderness Anorexia Back pain RUY (generalized anxiety disorder) Panic Wears partial dentures Fibromyalgia Arthritis History of ulceration History of diverticulitis Panic disorder Medication monitoring encounter Ventral incisional hernia without obstruction or gangrene Decreased sense of taste Chronic sphenoidal sinusitis Chronic ethmoidal sinusitis Chronic maxillary sinusitis Family history of colon cancer in father Pre-op evaluation Hyperlipidemia Syncope and collapse Mixed hyperlipidemia PSVT (paroxysmal supraventricular tachycardia) Chest discomfort Palpitations Hypothyroidism Asthma Home Medications ?Medication ?Instructions ?Recorded ?Last Taken ?Type albuterol sulfate 90 mcg/actuation 1 puff inhalation Q 4H PRN PRN 05/09/14 09/26/20 05:30 History aerosol inhaler Wheezing vit C 250 mg-vit E 90 mg-zinc 40 1 tab PO BID 11/22/17 Unknown History mg-copper 1 [id number] capsule (PreserVision AREDS-2) polyethylene glycol 3350 17 17 g PO QDAY PRN Constipat ion 01/31/18 Unknown History gram/dose oral powder (Miralax) acetaminophen 325 mg tablet 500 mg (1.5385 x 325 mg) P O Q4H 05/15/19 Unknown Rx PRN PRN Mild-Moderate Pain (1-5/10) CBD Oral (INFORMATIONAL USE 11/10/24 Unknown Histo ry ONLY-PT USES ORAL CBD) levalbuterol tartrate 45 2 puff inhalation Q4 PRN jovanna rtness 02/24/25 Unknown History mcg/actuation aerosol inhaler of breath or wheezing levothyroxine 50 mcg tablet 75 mcg PO DAILY 02/24/25 U nknown History ropinirole 0.5 mg tablet 0.5 mg PO DAILY 02/24/25 Unk nown History lorazepam 0.5 mg tablet 0.5 mg PO BID PRN anxiety #6 0 tabs 03/12/25 Unknown Rx ondansetron 8 mg disintegrating 8 mg PO Q12H PRN nause a and 03/17/25 Unknown Rx tablet vomiting #30 tabs [id number] 1 cap PO TID #90 caps Unknown Rx 3,000-9,500-15,000 unit capsule, delayed rel (Creon) propranolol 10 mg tablet 5 mg PO BID PRN anxiety 08/26 Unknown History clonazepam 0.5 mg tablet 0.5 mg PO BID PRN PRN anxiet y 07/21/25 Unknown History doxycycline hyclate 100 mg capsule 100 mg PO BID bronc hitis 07/21/25 07/21/25 08:00 History 100 mg escitalopram oxalate 5 mg tablet 2.5 mg PO DAILY 07/21 Unknown History gabapentin 100 mg capsule 100 mg PO TID 07/21/25 Unkno wn History nortriptyline 10 mg capsule 20 mg PO QHS sleep 5 Unknown History triamcinolone acetonide 0.1 % 1 applic topical DAILY P RN 07/21/25 Unknown History topical cream Allergy/AdvReac Type Severity Reaction Status Date / Time cocamidopropyl betaine Allergy Intermediate Rash Verified 07/09/25 20:49 Sulfa (Sulfonamide Allergy Swelling Verified 07/09/25 20:49 Antibiotics) Environmental Allergies: AdvReac Severe NEEDS Verified 07/09/25 20:49 Uncoded (dust) FOLLOW-UP mold AdvReac Severe NEEDS Verified 07/09/25 20:49 FOLLOW-UP metoprolol AdvReac Intermediate I feel Verified 07/09/25 20:49 awful codeine AdvReac Nausea Verified 07/09/25 20:49 diphenhydramine (From AdvReac Nausea Verified 07/09/25 20:49 Benadryl) hydrocodone bitartrate (From AdvReac Nausea Verified 07/09/25 20:49 Vicodin) oxycodone HCl (From Percocet) AdvReac Nausea Verified 07/09/25 20:49 tetracycline AdvReac Nausea/Vom/ Verified 07/09/25 20:49 Diarrhea Family History Father Colon cancer CAD (coronary artery disease) Mother CAD (coronary artery disease) Sister CVA (cerebral vascular accident) Brother Cancer Lung cancer Surgical History S/P ventral herniorrhaphy History of bilateral knee replacement Hx of rotator cuff surgery S/P carpal tunnel release S/P partial colectomy History of loop recorder H/O prior ablation treatment History of appendectomy History of tonsillectomy Social History household members: spouse Smoking Status: Never smoker alcohol intake: never substance use type: does not use caffeine: No what type of physical activity do you participate in: bicycling frequency: daily duration: 15-30 minutes/day seatbelt use: always do you feel safe at home: Yes Review of Systems (Anesthesia) ROS Narrative System reviewed and no additional complaints, except as documented.
--- NOTE | 2025-07-22 15:35 | CONS.ORTHO ---
HPI Consult Data Date of Consult: 07/22/25 HPI Narrative Reason for Consultation: Left hip pain HPI Narrative: MAAI PAYAN, is a 89 F with history of pancreatic cancer who presents today with left hip pain. Patient was getting into her car yesterday when she had a fall. She did hit her head but did not lose consciousness. Patient reports severe pain in her left thigh. She recently had pain medicine which helps the pain. She notes being moved makes the pain worse. She denies any associated numbness and ting with this injury. She does have some chronic numbness of her toes. Patient reports that she generally lives at home lives independently and does not use a walker or cane. Patient was admitted to medicine overnight made medically optimized for surgery. Patient's family is at bedside including her and her 2 daughters. [facility] Medical History Diverticulitis Cancer Hyperthyroidism Osteoporosis Costovertebral angle tenderness Anorexia Back pain RUY (generalized anxiety disorder) Panic Wears partial dentures Fibromyalgia Arthritis History of ulceration History of diverticulitis Panic disorder Medication monitoring encounter Ventral incisional hernia without obstruction or gangrene Decreased sense of taste Chronic sphenoidal sinusitis Chronic ethmoidal sinusitis Chronic maxillary sinusitis Family history of colon cancer in father Pre-op evaluation Hyperlipidemia Syncope and collapse Mixed hyperlipidemia PSVT (paroxysmal supraventricular tachycardia) Chest discomfort Palpitations Hypothyroidism Asthma Home Medications ?Medication ?Instructions ?Recorded ?Last Taken ?Type albuterol sulfate 90 mcg/actuation 1 puff inhalation Q4H PRN PRN 05/09/14 09/26/20 05:30 History aerosol inhaler Wheezing vit C 250 mg-vit E 90 mg-zinc 40 1 tab PO BID 11/22/17 Unknown History mg-copper 1 [id number] capsule (PreserVision AREDS-2) polyethylene glycol 3350 17 17 g PO QDAY PRN Constipation 01/31/18 Unknown History gram/dose oral powder (Miralax) acetaminophen 325 mg tablet 500 mg (1.5385 x 325 mg) PO Q4H 05/15/19 Unknown Rx PRN PRN Mild-Moderate Pain (1-5/10) CBD Oral (INFORMATIONAL USE 11/10/24 Unknown History ONLY-PT USES ORAL CBD) levalbuterol tartrate 45 2 puff inhalation Q4 PRN shortness 02/24/25 Unknown History mcg/actuation aerosol inhaler of breath or wheezing levothyroxine 50 mcg tablet 75 mcg PO DAILY 02/24/25 Unknown History ropinirole 0.5 mg tablet 0.5 mg PO DAILY 02/24/25 Unknown History lorazepam 0.5 mg tablet 0.5 mg PO BID PRN anxiety #60 tabs 03/12/25 Unknown Rx ondansetron 8 mg disintegrating 8 mg PO Q12H PRN nausea and 03/17/25 Unknown Rx tablet vomiting #30 tabs ismjmo-lbdcysfb-mwcskvy 1 cap PO TID #90 caps 06/09/25 Unknown Rx 3,000-9,500-15,000 unit capsule, delayed rel (Creon) propranolol 10 mg tablet 5 mg PO BID PRN anxiety 06/09/25 Unknown History clonazepam 0.5 mg tablet 0.5 mg PO BID PRN PRN anxiety 07/21/25 Unknown History doxycycline hyclate 100 mg capsule 100 mg PO BID bronchitis 07/21/25 07/21/25 08:00 History 100 mg escitalopram oxalate 5 mg tablet 2.5 mg PO DAILY 07/21/25 Unknown History gabapentin 100 mg capsule 100 mg PO TID 07/21/25 Unknown History nortriptyline 10 mg capsule 20 mg PO QHS sleep 07/21/25 Unknown History triamcinolone acetonide 0.1 % 1 applic topical DAILY PRN 07/21/25 Unknown History topical cream Allergy/AdvReac Type Severity Reaction Status Date / Time cocamidopropyl betaine Allergy Intermediate Rash Verified 07/09/25 20:49 Sulfa (Sulfonamide Allergy Swelling Verified 07/09/25 20:49 Antibiotics) Environmental Allergies: AdvReac Severe NEEDS Verified 07/09/25 20:49 Uncoded (dust) FOLLOW-UP mold AdvReac Severe NEEDS Verified 07/09/25 20:49 FOLLOW-UP metoprolol AdvReac Intermediate I feel Verified 07/09/25 20:49 awful codeine AdvReac Nausea Verified 07/09/25 20:49 diphenhydramine (From AdvReac Nausea Verified 07/09/25 20:49 Benadryl) hydrocodone bitartrate (From AdvReac Nausea Verified 07/09/25 20:49 Vicodin) oxycodone HCl (From Percocet) AdvReac Nausea Verified 07/09/25 20:49 tetracycline AdvReac Nausea/Vom/ Verified 07/09/25 20:49 Diarrhea Family History Father Colon cancer CAD (coronary artery disease) Mother CAD (coronary artery disease) Sister CVA (cerebral vascular accident) Brother Cancer Lung cancer Surgical History S/P ventral herniorrhaphy History of bilateral knee replacement Hx of rotator cuff surgery S/P carpal tunnel release S/P partial colectomy History of loop recorder H/O prior ablation treatment History of appendectomy History of tonsillectomy Social History household members: spouse Smoking Status: Never smoker alcohol intake: never substance use type: does not use caffeine: No what type of physical activity do you participate in: bicycling frequency: daily duration: 15-30 minutes/day seatbelt use: always do you feel safe at home: Yes ROS ROS Narrative 14 point review of systems outside of what is mentioned in HPI is negative Vital Signs Vital Signs Vital Signs: 07/21/25 16:33 07/21/25 16:33 07/21/25 18:33 Temperature 97.9 F Temperature Source Oral Pulse Rate 94 96 Pulse Strength Respiratory Rate 18 16 Respiratory Effort Normal Non-Labored Respiratory Depth Normal Respiratory Pattern Normal Blood Pressure 138/89 H Blood Pressure Mean 105 Blood Pressure Source Blood Pressure Position Blood Pressure Location Pulse Ox 95 99 Oxygen Delivery Method Room Air Room Air Room Air 07/21/25 18:42 07/21/25 20:00 07/21/25 20:30 Temperature 98.2 F 97.7 F L Temperature Source Oral Pulse Rate 96 91 93 Pulse Strength Respiratory Rate 16 19 H 20 H Respiratory Effort Respiratory Depth Respiratory Pattern Normal Blood Pressure 117/68 139/85 H Blood Pressure Mean 84 103 Blood Pressure Source Blood Pressure Position Blood Pressure Location Pulse Ox 99 99 Oxygen Delivery Method Room Air 07/21/25 21:47 07/21/25 21:58 07/21/25 22:41 Temperature 98 F Temperature Source Oral Pulse Rate 100 Pulse Strength Normal (2+) Respiratory Rate 18 Respiratory Effort Normal Non-Labored Respiratory Depth Normal Respiratory Pattern Normal Blood Pressure 128/81 H Blood Pressure Mean 96 Blood Pressure Source Monitor Blood Pressure Position Semi-Fowlers Blood Pressure Location Right Arm Pulse Ox 96 Oxygen Delivery Method Room Air Room Air 07/22/25 02:42 07/22/25 06:38 07/22/25 09:00 Temperature 98.2 F 98.2 F Temperature Source Oral Oral Pulse Rate 95 87 Pulse Strength Normal (2+) Respiratory Rate 16 16 Respiratory Effort Respiratory Depth Respiratory Pattern Blood Pressure 107/66 103/72 Blood Pressure Mean 79 82 Blood Pressure Source Monitor Monitor Blood Pressure Position Supine Semi-Fowlers Blood Pressure Location Right Arm Right Arm Pulse Ox 93 97 Oxygen Delivery Method Room Air Room Air 07/22/25 09:15 07/22/25 10:00 07/22/25 10:30 Temperature Temperature Source Pulse Rate 82 Pulse Strength Normal (2+) Respiratory Rate 16 Respiratory Effort Normal Non-Labored Respiratory Depth Normal Respiratory Pattern Normal Normal Blood Pressure Blood Pressure Mean Blood Pressure Source Blood Pressure Position Blood Pressure Location Pulse Ox Oxygen Delivery Method Room Air 07/22/25 10:30 07/22/25 13:10 07/22/25 15:10 Temperature 98.4 F 98.4 F Temperature Source Oral Pulse Rate 91 91 Pulse Strength Respiratory Rate 16 16 Respiratory Effort Respiratory Depth Respiratory Pattern Blood Pressure 115/64 115/64 Blood Pressure Mean 81 Blood Pressure Source Monitor Blood Pressure Position Semi-Fowlers Blood Pressure Location Left Arm Pulse Ox 96 93 93 Oxygen Delivery Method Room Air Room Air Room Air Weight Weight: 111 lb 12.8 oz Body Mass Index (BMI) 21.8 Physical Exam Const alert and oriented x3 General Appearance: cooperative HEENT normocephalic Eyes PERRL Neck no JVD Resp normal respiratory effort Cardio Cardio Narrative: Regular distal pulse rate GI non-distended Extremity Extremity Narrative: Left lower extremity: Skin clean, dry, and intact. Limb is shortened and externally rotated Motor is intact dorsiflexion, EHL and plantar flexion. Sensation is intact to light touch saphenous, larissa,l superficial peroneal, deep peroneal and tibial distributions. Calves are soft and supple. Skin Skin Narrative: Skin is intact Neuro CN's II-XII intact bilaterally Psych affect normal Medical Records Data Attestation: I reviewed the patient's medical records Lab / Micro Data 07/22/25 05:18 07/22/25 05:18 Labs: Laboratory Results - last 24 hr 07/21/25 17:13: WBC 21.4 H, RBC 3.62 L, Hgb 10.7 L, Hct 32.3 L, MCV 89.2, MCH 29.6, MCHC 33.1, RDW Std Deviation 45.8 H, RDW Coeff of Collin 14.2, Plt Count 395, MPV 9.0, Immature Gran % (Auto) 1.400 H, Neut % (Auto) 86.1 H, Lymph % (Auto) 3.3 L, [place] % (Auto) 6.8, Eos % (Auto) 2.0, Baso % (Auto) 0.4, Absolute Neuts (auto) 18.4 H, Absolute Lymphs (auto) 0.70 L, Nucleated RBC % 0, PT 13.3, INR 1.0, APTT 29.1, Sodium 135, Potassium 3.9, Chloride 99, Carbon Dioxide 22.5, Anion Gap 14, BUN 17, Creatinine 0.59 L, Estim Creat Clear Calc 39.41 L, Est GFR (MDRD) Non-Af 86, BUN/Creatinine Ratio 29.1 H, Glucose 112 H, Calcium 8.8 07/21/25 17:34: Blood Type O POSITIVE, Antibody Screen NEGATIVE 07/21/25 18:11: Urine Color Straw, Urine Clarity Clear, Urine pH 6.0, Ur Specific [place] 1.015, Urine Protein Negative, Urine Glucose (UA) Normal, Urine Ketones 50 H, Urine Occult Blood Negative, Urine Nitrite Negative, Urine Bilirubin Negative, Urine Urobilinogen Normal, Ur Leukocyte Esterase Negative, Urine RBC 0-5 SEEN, Urine WBC 0-5 SEEN, Ur Squamous Epith Cells 0-5 SEEN, Calcium Oxalate Crystal 1+, Urine Bacteria 0 SEEN, Urine Mucus 0 SEEN 07/22/25 05:18: WBC 6.8, RBC 3.38 L, Hgb 10.1 L, Hct 30.2 L, MCV 89.3, MCH 29.9, MCHC 33.4, RDW Std Deviation 45.9 H, RDW Coeff of Collin 14.3, Plt Count 298, MPV 9.2, Sodium 138, Potassium 4.0, Chloride 102, Carbon Dioxide 25.1, Anion Gap 10, BUN 16, Creatinine 0.49 L, Estim Creat Clear Calc 34.24 L, Est GFR (MDRD) Non-Af 90, BUN/Creatinine Ratio 32.4 H, Glucose 120 H, Calcium 8.4, TSH 2.960 Imaging Radiology Impression Hip/Pelvis X-Ray 07/21/25 17:03 IMPRESSION: Left femoral intertrochanteric fracture. Reading Location: [facility] Left hip x-rays were independently reviewed. No evidence of pathologic lesion at this time.Transtrochanteric fracture of the proximal femur Chest X-Ray 07/21/25 17:30 IMPRESSION: No Acute Findings. Reading Location: [facility] Brain CT 07/21/25 17:40 IMPRESSION: No acute intracranial abnormality. Reading Location: [id number] Cervical Spine CT 07/21/25 17:40 IMPRESSION: No acute osseous abnormality. Thyroid nodules. Further characterization with nonemergent ultrasound is recommended. Spondylosis. Reading Location: [facility] Assessment & Plan Assessment/Plan (1) Fracture, intertrochanteric, left femur: PLAN: Natural history of the disease process and treatment options were discussed the patient. Nonoperative versus operative treatment was discussed. Nonoperative treatment is not recommended. Based on patient's overall independent function and the presence of her daughters and I did recommend cephalomedullary nail fixation for this fracture. Risks and benefits of the procedure were discussed the patient including but not limited to blood loss, DVTs, PEs, neurovascular mass, infection, risk of anesthesia including loss of life. Nonunion, malunion's hardware failure and screw cut out were also discussed with the patient and family. At this time all parties wish to move forward. Antibiotics on-call to the operating room. Patient is n.p.o. at this time. Will proceed with surgery this evening.
[2025-07-22] MEDS: Lactated Ringers 1,000 ML 1000 ML IV (15:48)
[2025-07-22] MEDS: fentaNYL 100 MCG/2 ML Ampul 50 MCG IV (15:55)
[2025-07-22] MEDS: Lidocaine 1% (5 ml sdv) 5 ML Vial 4 ML IV (15:55)
[2025-07-22] MEDS: Cefazolin 1 GM/5 ML Vial 2 GM IV (16:00)
--- NOTE | 2025-07-22 16:00 | RAD_ITS ---
PROCEDURE: HIP MIN 2 VIEWS (PORTABLE) 07/22/2025 REASON FOR EXAM: LEFT HIP RODDING TECHNIQUE: HIP MIN 2 VIEWS (PORTABLE) Laterality: FINDINGS: Intraoperative fluoroscopy was performed for left hip rodding. 75.7 seconds. 8.91 mGy. See procedure report for full details. RAD/Hip Min 2 Views (Portable) IMPRESSION: As above. Reading Location: [id number]
--- NOTE | 2025-07-22 16:45 | PCM.OPRPT ---
Operative Report (Standard) Operative Information Date of Procedure: 07/22/25 Pre-Operative Diagnosis: Left intertrochanteric hip fracture Post-Operative Diagnosis: Left intertrochanteric hip fracture Surgery/Procedure Performed: Left hip cephalomedullary nail health care facilities inspector: Yes Drafting Layout Worker: Nishi Reyes Tasks completed by fast food sales assistant: Closing Additional dental assistant?: No Type of Anesthesia: General RN Documented Start/Stop Times: Operation Date: 07/22/25 16:00 Case Time Into Pre-Op 07/22/25 14:37 Out of Pre-Op 07/22/25 15:42 Anesthesia Start 07/22/25 15:48 Into Room 07/22/25 15:48 Procedure Start 07/22/25 16:09 Procedure End 07/22/25 16:47 Anesthesia End 07/22/25 16:53 Out of Room 07/22/25 16:53 Into Recovery 07/22/25 16:55 Out of Recovery 07/22/25 17:58 Procedure Start Time: 16:09 Procedure Stop Time: 16:47 Select all DRAINS/GRAFTS/IMPLANTS that apply: Prosthetic device Prosthetic device details: [employer] InterTAN nail Special Medications: Ancef Estimated Blood Loss: 350 mL Fluids Replaced: 400 mL crystalloid Specimen collected: No Description of surgery: Components used: 1. [employer] InterTAN nail 36 cm x 10 mm, 125 degree 2. [employer] InterTAN lag screw 85 mm 3. P[employer]hew 32.5 millimeter interlocking screw Brief history operative indications: 89-year-old female who fell in her garage sustained an intertrochanteric hip fracture, after extensive discussion including risk and benefits which include but are not limited to blood loss, PEs, DVTs, neurovascular damage, nonunions, malunions and screw cut out patient has elected to proceed with a L cephalo-medullary nail. Procedure: On the date of the procedure the patient's L hip was marked in the preoperative area and patient was taken back to the operating room. Anesthetic was administered and patient was transferred to the table were all bony prominence identified well-padded and the ipsilateral arm was placed across the chest. Patient was then translated down to the perineal post and the operative leg was placed in the boot while the nonoperative leg was lowered and secured. The operative leg was placed in traction and internal rotation and live fluoroscopy was used to verify adequate reduction. The operative leg was then prepped in a sterile fashion with chlorhexidine while the surgeon scrubbed. Upon reentering the room the operative extremity was draped in the standard orthopedic fashion. Skin incision was marked and a timeout was called. Everyone agreed upon the side, the site, the procedure be performed, patient's identity, and antibiotics given. Skin incision was made and the position of the entry guidepin was verified using live fluoroscopy. Once we were satisfied with our position the pin was advanced in the soft tissue protector was placed over the pin. The entry reamer was then advanced into the proximal portion of the femur. A guidewire was placed down the intramedullary canal and fluoroscopy was used to verify that the anterior cortex had not been breached distally as well as satisfactory distal positioning. We then used live fluoroscopy to verify the length of the nail and a [employer] InterTAN 36 cm by 10 mm high 25 degree neck and hip nail was selected. The 11.5 mm reamer was then passed. The nail was then attached to the warning coordination meteorologist and inserted into the intramedullary canal. The appropriate depth was verified and the skin incision for the lag screw was made. The lag screw guidepin was then placed under live fluoroscopy and when a satisfactory position was obtained the length of the screw was measured and the standard technique to drill for the lag screws was performed. The anti-rotation bar was used. At this time a 85 mm lag screw was selected with its corresponding compression screw. The lag screw was then passed and traction was left off the leg. The compression screw was then passed and the fracture was compressed. The final position of the lag screw was verified under fluoroscopy. Attention was then turned to the distal portion of the nail and a perfect [place] technique was used to locate the distal interlocking screw and a 32.5 mm mm distal interlocking screw was placed using this technique. Live fluoroscopy was used to verify the position of the interlocking screw and the final position of the hip components. Once we were satisfied with our positioning the wounds were copiously irrigated out with normal saline skin was closed with 2-0 Vicryl and spike for final skin closure. A sterile dressing was placed with Xeroform. Patient was then awakened by anesthesia transferred from the fracture table back to their hospital bed and transferred to the PACU for recovery. Postoperative plan: Patient will be weight-bear as tolerated. Xarelto for DVT prophylaxis due to history of active cancer and fracture. Follow up in the office in 2 weeks. Surgical Findings: Stable will reduce fracture. Complications Complications: No Admit VTE Documentation VTE Present on Admission: No VTE Mechan Device Prophylaxis: SCD's VTE Pharm Prophylaxis ordered?: Yes
--- NOTE | 2025-07-22 16:58 | PCM.POST.ANE ---
Anesthesia: Postop Eval I Current Vital Signs Temperature: 97.1 F Pulse Rate: 88 Blood Pressure: 139/91 Respiratory Rate: 16 Pulse Ox: 100 Oxygen Delivery Method: Room Air Assessment Airway patent: Yes Spontaneous unlabored respirations: Yes Mental status: Awake and Calm nausea: No Vomiting: No Anesthesia Complication: No Fluid Hydration Crystalloid volume administer (ml): 500 Total IV fluid infused: 500 Progress Note Anesthesia document: Postop Eval 1 completed: Yes
--- NOTE | 2025-07-22 17:30 | RAD_ITS ---
PROCEDURE: HIP MIN 2 VIEWS (PORTABLE) 07/22/2025 REASON FOR EXAM: POST OP TECHNIQUE: HIP MIN 2 VIEWS (PORTABLE) Laterality: Left COMPARISON: Pelvic x-ray 07/21/2025. FINDINGS: Bones: Status post surgical repair of left femur fracture with metallic rods and screws. Near anatomical alignment. Joints: Aligned. No dislocation. Soft tissues: Postsurgical hematoma in the left upper extremity. Surgical sutures at the skin. RAD/Hip Min 2 Views (Portable) IMPRESSION: Status post surgical repair of left femur fracture with metallic rods and screw s. Near anatomical alignment. Reading Location: [id number]
--- NOTE | 2025-07-22 18:14 | SUR.PHASEI ---
1730 RESP CALLED FOR NEBULIZER TREATMENT , DUONEB ORDERED PER ANESTHESIA . LUNG SOUNDS COARSE PER RESPIRATORY THERAPIST. PT ABLE TO COUGH UP SECRETIONS, PT DENIES SOB . POST NEB TX PATIENT STATES IT FEELS BETTER TO BREATH NOW, PULSE OX 965 ON 2 L PER NC.
--- NOTE | 2025-07-22 18:22 | PCM.PN.HOSP ---
Reason for Visit Chief Complaint: Fall with left hip pain Subjective Subjective Patient was seen and examined today, she underwent repair of her left hip fracture with a cephalomedullary nail today. Patient appears to be stable after surgery. Objective Data Objective Data Vital Signs: Vital Signs Temp Pulse Resp BP Pulse Ox O2 Del Method O2 Flow Rate 97.4 F L 89 16 120/77 95 Nasal Cannula 3 07/22/25 17:48 07/22/25 17:48 07/22/25 17:48 07/22/25 17:48 07/22/25 17:51 07/22/25 17:51 07/22/25 17:51 Oxygen Flow Rate (L/min) 3 Oxygen Delivery Method Nasal Cannula Weight: 50.712 kg Body Mass Index (BMI) 21.8 Intake & Output: Intake and Output for Last 24 Hours 07/20/25 07/21/25 07/22/25 23:59 23:59 23:59 Intake Total 500 / 500 230 / 230 Output Total 650 / 650 1335 / 1335 Balance -150 / -150 -1105 / -1105 Medical Nutrition Assessment Dietitian: Malnutrition Criteria Met Start: 07/22/25 17:19 Freq: Status: Active Protocol: Document 07/22/25 17:19 RMA (Rec: 07/22/25 17:19 RMA [id number]) Nutrition Malnutrition Evidence of Yes Malnutrition Exists Malnutrition (severe Chronic ): Evidenced By Suboptimal Energy Intake (Severe),Weight Loss (Severe) Clinical Problem Chronic Disease or Condition Related Malnutrition Etiology Severe protein-calorie malnutrition in the context of chronic disease related to inadequate energy intake and increased energy expenditure due to malignancy of pancreas Signs/Symptoms as evidenced by ~14% unintentional weight loss x 6 months and PO meeting less than 75% estimated nutrition needs x past 6 months; BMI 21.8 Status Active Problem Recommendation Dietitian Recommend advance diet as tolerated to liberalized Recommendations/ regular. Changes Will add 240mL chocolate CIB w/ 2 scoops of beneprotein at breakfast and dinner meal. Lab / Micro Data 07/22/25 05:18 07/22/25 05:18 Labs: Laboratory Results - last 24 hr 07/21/25 17:13: PT 13.3, INR 1.0, APTT 29.1 07/21/25 17:34: Antibody Screen NEGATIVE 07/21/25 18:11: Urine Color Straw, Urine Clarity Clear, Urine pH 6.0, Ur Specific [place]cha 1.015, Urine Protein Negative, Urine Glucose (UA) Normal, Urine Ketones 50 H, Urine Occult Blood Negative, Urine Nitrite Negative, Urine Bilirubin Negative, Urine Urobilinogen Normal, Ur Leukocyte Esterase Negative, Urine RBC 0-5 SEEN, Urine WBC 0-5 SEEN, Ur Squamous Epith Cells 0-5 SEEN, Calcium Oxalate Crystal 1+, Urine Bacteria 0 SEEN, Urine Mucus 0 SEEN 07/22/25 05:18: WBC 6.8, RBC 3.38 L, Hgb 10.1 L, Hct 30.2 L, MCV 89.3, MCH 29.9, MCHC 33.4, RDW Std Deviation 45.9 H, RDW Coeff of Collin 14.3, Plt Count 298, MPV 9.2, Sodium 138, Potassium 4.0, Chloride 102, Carbon Dioxide 25.1, Anion Gap 10, BUN 16, Creatinine 0.49 L, Estim Creat Clear Calc 34.24 L, Est GFR (MDRD) Non-Af 90, BUN/Creatinine Ratio 32.4 H, Glucose 120 H, Calcium 8.4, TSH 2.960 Radiography Diagnostic Testing: Radiology Impression Hip/Pelvis X-Ray 07/21/25 17:03 IMPRESSION: Left femoral intertrochanteric fracture. Reading Location: [facility] Chest X-Ray 07/21/25 17:30 IMPRESSION: No Acute Findings. Reading Location: [facility] Cervical Spine CT 07/21/25 17:40 IMPRESSION: No acute osseous abnormality. Thyroid nodules. Further characterization with nonemergent ultrasound is recommended. Spondylosis. Reading Location: [facility] Hip X-Ray 07/22/25 17:30 IMPRESSION: Status post surgical repair of left femur fracture with metallic rods and screws. Near anatomical alignment. Reading Location: [facility] Physical Exam Const alert, oriented x3, no apparent distress and average body habitus General Appearance: cooperative, well kempt and well developed Orientation / Consciousness: awake, oriented to person, oriented to place and oriented to time HEENT normocephalic, head/scalp atraumatic and moist oral mucous membranes Eyes PERRL, EOMs intact bilaterally and conjunctivae normal Neck supple, no JVD, thyroid normal and no carotid bruits General: trachea midline Resp normal respiratory effort, no retractions, no use of accessory muscles and clear to auscultation bilaterally Auscultation: Negative for rales, rhonchi or wheezes Cardio regular rate, regular rhythm, S1 normal heart sound, S2 normal heart sound, no murmurs, no rub and no gallops GI normal to inspection, nondistended, normoactive bowel sounds, soft to palpation, non-tender and non-distended Extremity no clubbing, cyanosis or edema Skin no rashes or lesions noted General Skin Exam: no breakdown Neuro oriented x3, CN's II-XII intact bilaterally, no focal motor deficits and no sensory deficits noted Sensorium / Orientation: awake and alert Speech: speech normal Psych affect normal Assessment & Plan Assessment/Plan (1) Closed fracture of left hip: PLAN: Plan 1. Intertrochanteric fracture of the left hip secondary to osteoporosis-postop day 0 intramedullary nail insertion-PT and OT will see the patient, patient may need temporary placement in [facility] facility for inpatient rehab #2 pancreatic cancer-she is status post palliative radiation treatment-complicates care, management, recovery, and prognosis #3 chronic anxiety-patient is on Klonopin #4 hypothyroidism-patient is on Synthroid #5 pancreatic insufficiency-patient is on pancreatic enzymes chronically Total clinical time spent by myself addressing patient's medical issues, reviewing all of her data, and collaborating with patient's care team: 35 minutes Charges/Coding Visit Charges Inpatient E&M: 62675 Subs Hosp L2
[2025-07-22] MEDS: Creon 3,000 unit DR Capsule 1 CAP PO (18:39)
[2025-07-22] MEDS: Multivitamin (Healthy Eyes) Capsule 1 CAP PO (21:29)
[2025-07-22] MEDS: Cefazolin 1 GM/50 ML BAG IV (23:56)
[2025-07-23] VITALS (8 sets, daily range): BP systolic 93–123; BP diastolic 56–74; PULSE 88–96; RESP 16–18; TEMP 36.6–36.8; O2SAT 93–99
--- NOTE | 2025-07-23 06:09 | POSTOPAN2_ITS ---
Anesthesia Postop Eval I Sum Postop Eval Completion status Anesthesia document: Postop Eval 1 completed: Yes Anesthesia Postop Eval I Summary Anesthesia Postop Eval I Summary: Anesthesia Postop Eval I: Assessment Summary Airway patent Yes 07/22/25 16:59 [email or web address] Spontaneous unlabored Yes 07/22/25 16:59 [email or web address] respirations Mental status Awake,Calm 07/22/25 16:59 [email or web address] nausea No 07/22/25 16:59 [email or web address] Vomiting No 07/22/25 16:59 [email or web address] Anesthesia Postop Eval I: Fluid Summary Crystalloid volume administer 500 07/22/25 16:59 [email or web address] (ml) Colloids volume administered ( ml) Blood Product volume administered (ml) Total IV fluid infused 500 07/22/25 16:59 [email or web address] Anesthesia Postop Eval I: Summary Notes Anesthesia Complication No 07/22/25 16:59 [email or web address] Anesthesia Complication Comment: Post-operative progress note Anesthesia: Postop Eval II Evaluation Mental status: Awake Pain Level: 0 nausea: No Vomiting: No Complications Anesthesia Complication: No
--- NOTE | 2025-07-23 06:09 | PCM.POSTANE2 ---
Anesthesia Postop Eval I Sum Postop Eval Completion status Anesthesia document: Postop Eval 1 completed: Yes Anesthesia Postop Eval I Summary Anesthesia Postop Eval I Summary: Anesthesia Postop Eval I: Assessment Summary Airway patent Yes 07/22/25 16:59 [email or web address] Spontaneous unlabored Yes 07/22/25 16:59 [email or web address] respirations Mental status Awake,Calm 07/22/25 16:59 [email or web address] nausea No 07/22/25 16:59 [email or web address] Vomiting No 07/22/25 16:59 [email or web address] Anesthesia Postop Eval I: Fluid Summary Crystalloid volume administer 500 07/22/25 16:59 [email or web address] (ml) Colloids volume administered ( ml) Blood Product volume administered (ml) Total IV fluid infused 500 07/22/25 16:59 [email or web address] Anesthesia Postop Eval I: Summary Notes Anesthesia Complication No 07/22/25 16:59 [email or web address] Anesthesia Complication Comment: Post-operative progress note Anesthesia: Postop Eval II Evaluation Mental status: Awake Pain Level: 0 nausea: No Vomiting: No Complications Anesthesia Complication: No
[2025-07-23] MEDS: 0.9% Normal Saline (1000mL) 1,000 ML 100 ML IV ×2 (07:50→18:57)
[2025-07-23] MEDS: Cefazolin 1 GM/50 ML BAG IV (07:50)
[2025-07-23] MEDS: Creon 3,000 unit DR Capsule 1 CAP PO ×3 (08:37→16:37)
[2025-07-23] MEDS: Multivitamin (Healthy Eyes) Capsule 1 CAP PO ×2 (09:59→20:40)
[2025-07-23] MEDS: Albuterol 2.5 MG/3 ML VIAL.NEB. INHALATION (10:07)
[2025-07-23] MEDS: HYDROmorphone 0.5 MG/0.5 ML SYRINGE IV (10:15)
--- NOTE | 2025-07-23 10:57 | CASEMGMT ---
Addendum entered by Katelynn Terrell 07/23/25 16:55: YARY HUERTA into pt room, pt states this is so stressful. Pt aware for her and family to review list and have 3 more choices available for tomorrow morning and the RN DEANNA or ROBERTO will follow up with her on her preferences. Addendum entered by Katelynn Terrell 07/23/25 16:50: Received notification from [facility] that they are not able to accept pt as they do not have bed availability until Saturday. Addendum entered by Katelynn Terrell 07/23/25 16:35: Pt had 5 radiation treatments in April and has an appt on Aug [address] scan where further recommendations will be made. Addendum entered by Katelynn Terrell 07/23/25 16:33: YARY HUERTA into pt room, pt has chosen [facility]. Referral sent to [facility] at this time. Pt aware RN DEANNA or ROBERTO will follow up with her tomorrow. Addendum entered by Katelynn Terrell 07/23/25 16:16: [facility] is unable to accept pt d/t unknown availability of beds until Saturday. YARY HUERTA into pt room, pt made aware. Pt states she needs to call her dtr to get the third choice. Addendum entered by Katelynn Terrell 07/23/25 12:08: [facility] does not have bed availability. Requested dc chiropractor assistant send referral to [facility]. Pt aware as well as family that [facility] does not have bed. Pt does not feel she can handle 3 hours of therapy daily for rehab facility options. Addendum entered by Katelynn Terrell 07/23/25 12:05: YARY HUERTA into pt room, noted therapy evals, pt and family state pt would like to stay here meaning [facility] and second choice is [facility]. Original Note: YARY HUERTA into pt room, pt lying in bed in no distress with and family member at bedside. Pt states she tried to get up last evening and it was terrible. Pt states she will need further therapy in a facility setting prior to returning home. She states she is between [facility] and [facility]. Pt would like some time to discuss with family. YARY HUERTA to check back. Pt has not had therapy evaluate as of yet.
--- NOTE | 2025-07-23 11:25 | PCM.PN.ORT ---
Subjective Subjective Patient is sitting in bedside chair upon examination. Patient states that her pain is adequately controlled at this point. Patient states that she does have nausea that comes and goes. Patient states that she would like to stay at TCU if possible. Case management is working on that now. Patient states that she has worked with physical therapy but has not put much weight through her leg. Patient states that weightbearing causes her a lot of pain. Patient denies any shortness of breath, chest pain, calf pain. Patient denies any new numbness or tingling. Patient denies any adverse events overnight. Objective Data Objective Data Vital Signs: Vital Signs Temp Pulse Resp BP Pulse Ox O2 Del Method O2 Flow Rate 98.2 F 95 16 119/67 94 Room Air 3 07/23/25 07:56 07/23/25 10:09 07/23/25 10:09 07/23/25 10:04 07/23/25 10:04 07/23/25 10:04 07/22/25 18:49 Oxygen Flow Rate (L/min) 3 Oxygen Delivery Method Room Air Weight: 50.712 kg Body Mass Index (BMI) 21.8 Intake & Output: Intake and Output for Last 24 Hours 07/21/25 07/22/25 07/23/25 23:59 23:59 23:59 Intake Total 500 / 500 1326.33 / 1326.33 1100 / 1100 Output Total 650 / 650 1335 / 1335 650 / 650 Balance -150 / -150 -8.67 / -8.67 450 / 450 Medical Nutrition Assessment Dietitian: Malnutrition Criteria Met Start: 07/22/25 17:19 Freq: Status: Active Protocol: Document 07/22/25 17:19 RMA (Rec: 07/22/25 17:19 RMA [id number]) Nutrition Malnutrition Evidence of Yes Malnutrition Exists Malnutrition (severe Chronic ): Evidenced By Suboptimal Energy Intake (Severe),Weight Loss (Severe) Clinical Problem Chronic Disease or Condition Related Malnutrition Etiology Severe protein-calorie malnutrition in the context of chronic disease related to inadequate energy intake and increased energy expenditure due to malignancy of pancreas Signs/Symptoms as evidenced by ~14% unintentional weight loss x 6 months and PO meeting less than 75% estimated nutrition needs x past 6 months; BMI 21.8 Status Active Problem Recommendation Dietitian Recommend advance diet as tolerated to liberalized Recommendations/ regular. Changes Will add 240mL chocolate CIB w/ 2 scoops of beneprotein at breakfast and dinner meal. Lab / Micro Data 07/22/25 05:18 07/22/25 05:18 Radiography Diagnostic Testing: Radiology Impression Hip X-Ray 07/22/25 16:00 IMPRESSION: As above. Reading Location: [facility] Hip X-Ray 07/22/25 17:30 IMPRESSION: Status post surgical repair of left femur fracture with metallic rods and screws. Near anatomical alignment. Reading Location: [facility] Physical Exam Narrative Vital signs stable and afebrile SCDs in place bilaterally RUSTAM hose in place bilaterally Dressings are clean, dry, intact Left hip is soft and supple Sensation intact light touch. Neurovascularly intact overall. Dorsiflexion and plantarflexion are performed without pain or restriction Const alert, oriented x3 and no apparent distress Assessment & Plan Assessment/Plan (1) Closed fracture of left hip: PLAN: Status post left hip cephalomedullary nailing day 1. 1. DVT prophylaxis: Patient will be on Xarelto for 2 weeks postoperatively due to active cancer as well as fracture. Patient will then switch to aspirin 81 mg twice daily until 4 weeks postoperatively. Patient will be wearing RUSTAM hose for 2 weeks postoperatively. Patient was educated she can take RUSTAM hose off for showers and at nighttime. 2. Pain medication: Patient is currently on Tylenol and tramadol. Pain will be managed per primary care team. 3. Physical therapy: Patient will be weightbearing as tolerated walker. Patient will need outpatient physical therapy as scheduled upon discharge. 4. Incentive spirometry: Patient was encouraged to use incentive spirometer every hour that they are awake for the first week to exercise lungs decreased risk of postoperative lung infection. 5. Nausea: Patient is currently on Zofran as needed for nausea and vomiting. 6. Dressings: Patient was educated she can get dressing wet on postoperative day 1. Patient was educated to remove dressing on postoperative day 5. As long as incision is clean, dry, intact may leave incision open to air. Patient was educated no soaking, submerging for 6 weeks postoperatively. Patient was educated no lotions, salves, oils over incision for 6 weeks postoperatively. 7. Medicine is currently primary care team on this patient. 8. Case management is involved and patient would like placement following discharge. 9. Patient is to follow-up for postoperative instructions. 10. Disposition: Patient is okay for discharge from orthopedic services as long as pain maintains adequately controlled, continues to work with and is cleared by physical therapy, and maintains medically stable. Patient is orthopedically stable at this time. Patient does prefer placement on discharge. Patient and her daughter states that she would prefer to go to the TCU if possible. Patient will be weightbearing as tolerated with walker with physical therapy. Patient will need a 2-week follow-up appointment with our office for wound check and reevaluation. Patient will need outpatient physical therapy scheduled upon discharge. Patient was encouraged to call with any questions, concerns, new problems.
[2025-07-23] MEDS: 0.9% Saline Lock 10 ML Syringe IV ×2 (12:11→14:36)
--- NOTE | 2025-07-23 12:28 | CASEMGMT ---
Discharge Planning Referral sent to [facility]. Precious Winters DC Planning Asst.
--- NOTE | 2025-07-23 15:05 | PCM.PN.HOSP ---
Reason for Visit Chief Complaint: Fall with left hip pain Subjective Subjective Patient was seen and examined today, she is alert and does not appear to be in any distress. I request was put in for the [facility] for the patient to be released to when we receive word they have accepted her. Objective Data Objective Data Vital Signs: Vital Signs Temp Pulse Resp BP Pulse Ox O2 Del Method O2 Flow Rate 98.2 F 95 16 119/67 94 Room Air 3 07/23/25 07:56 07/23/25 10:09 07/23/25 10:09 07/23/25 10:04 07/23/25 10:04 07/23/25 10:04 07/22/25 18:49 Oxygen Flow Rate (L/min) 3 Oxygen Delivery Method Room Air Weight: 50.712 kg Body Mass Index (BMI) 21.8 Intake & Output: Intake and Output for Last 24 Hours 07/21/25 07/22/25 07/23/25 23:59 23:59 23:59 Intake Total 500 / 500 1326.33 / 1326.33 1450 / 1450 Output Total 650 / 650 1335 / 1335 900 / 900 Balance -150 / -150 -8.67 / -8.67 550 / 550 Medical Nutrition Assessment Dietitian: Malnutrition Criteria Met Start: 07/22/25 17:19 Freq: Status: Active Protocol: Document 07/22/25 17:19 RMA (Rec: 07/22/25 17:19 RMA [id number]) Nutrition Malnutrition Evidence of Yes Malnutrition Exists Malnutrition (severe Chronic ): Evidenced By Suboptimal Energy Intake (Severe),Weight Loss (Severe) Clinical Problem Chronic Disease or Condition Related Malnutrition Etiology Severe protein-calorie malnutrition in the context of chronic disease related to inadequate energy intake and increased energy expenditure due to malignancy of pancreas Signs/Symptoms as evidenced by ~14% unintentional weight loss x 6 months and PO meeting less than 75% estimated nutrition needs x past 6 months; BMI 21.8 Status Active Problem Recommendation Dietitian Recommend advance diet as tolerated to liberalized Recommendations/ regular. Changes Will add 240mL chocolate CIB w/ 2 scoops of beneprotein at breakfast and dinner meal. Lab / Micro Data 07/22/25 05:18 07/22/25 05:18 Radiography Diagnostic Testing: Radiology Impression Hip X-Ray 07/22/25 16:00 IMPRESSION: As above. Reading Location: [facility] Hip X-Ray 07/22/25 17:30 IMPRESSION: Status post surgical repair of left femur fracture with metallic rods and screws. Near anatomical alignment. Reading Location: [facility] Physical Exam Narrative alert, oriented x3, no apparent distress and average body habitus General Appearance: cooperative, well kempt and well developed Orientation / Consciousness: awake, oriented to person, oriented to place and oriented to time HEENT normocephalic, head/scalp atraumatic and moist oral mucous membranes Eyes PERRL, EOMs intact bilaterally and conjunctivae normal Neck supple, no JVD, thyroid normal and no carotid bruits General: trachea midline Resp normal respiratory effort, no retractions, no use of accessory muscles and clear to auscultation bilaterally Auscultation: Negative for rales, rhonchi or wheezes Cardio regular rate, regular rhythm, S1 normal heart sound, S2 normal heart sound, no murmurs, no rub and no gallops GI normal to inspection, nondistended, normoactive bowel sounds, soft to palpation, non-tender and non-distended Extremity no clubbing, cyanosis or edema Skin no rashes or lesions noted General Skin Exam: no breakdown Neuro oriented x3, CN's II-XII intact bilaterally, no focal motor deficits and no sensory deficits noted Sensorium / Orientation: awake and alert Speech: speech normal Psych affect normal Assessment & Plan Assessment/Plan (1) Closed fracture of left hip: PLAN: Plan 1. 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 meeting less than 75% of estimated nutritional needs times the past 6 months-diet was advanced to liberalize regular, and addition of 240 cc chocolate CIB with 2 scoops of Beneprotein at breakfast and dinner meal will be added Total clinical time spent by myself addressing patient's medical issues, reviewing all of her data, and collaborating with patient's care team: 35 minutes Charges/Coding Visit Charges Inpatient E&M: 62452 Subs Hosp L2
--- NOTE | 2025-07-23 19:56 | NURSING ---
Allison'ts daughter, João, called and gave their next 3 choices for rehab. [address] [facility] [address] [facility] [address] [facility] a [facility] up [facility] and [facility]. João asked [facility] her [facility] to another [facility], would she be able to transfer to TCU at that time?
[2025-07-23] MEDS: MELATONIN 3 MG TABLET PO (20:38)
[2025-07-24] VITALS (9 sets, daily range): BP systolic 98–140; BP diastolic 60–79; PULSE 80–97; RESP 16–20; TEMP 36.3–36.8; O2SAT 92–97
[2025-07-24] MEDS: 0.9% Normal Saline (1000mL) 1,000 ML 100 ML IV ×3 (04:00→23:02)
[2025-07-24] MEDS: 0.9% Saline Lock 10 ML Syringe IV (06:11)
[2025-07-24] MEDS: Creon 3,000 unit DR Capsule 1 CAP PO ×3 (07:51→16:14)
[2025-07-24] MEDS: Multivitamin (Healthy Eyes) Capsule 1 CAP PO ×2 (07:52→22:58)
[2025-07-24] MEDS: Albuterol 2.5 MG/3 ML VIAL.NEB. INHALATION ×2 (07:53→21:47)
--- NOTE | 2025-07-24 11:13 | CASEMGMT ---
Social Work SW spoke w/pt, daughter and in room. They still are reiterating would like [facility] or [facility] should a bed become available. If it does not become available, their next choices are [facility] or the TCU unit at [facility]. SW will send referrals later today and follow up on Saturday. BETTY Pineda
--- NOTE | 2025-07-24 11:32 | PCM.PN.HOSP ---
Reason for Visit Chief Complaint: Fall with left hip pain Subjective Subjective Patient was seen and examined today, she is in no distress. We are awaiting approval, facility for her to go to a skilled facility for rehab services. Objective Data Objective Data Vital Signs: Vital Signs Temp Pulse Resp BP Pulse Ox O2 Del Method O2 Flow Rate 97.9 F 83 18 98/60 92 Room Air 3 07/24/25 11:28 07/24/25 11:28 07/24/25 11:28 07/24/25 11:28 07/24/25 11:28 07/24/25 11:28 07/22/25 18:49 Oxygen Flow Rate (L/min) 3 Oxygen Delivery Method Room Air Weight: 50.712 kg Body Mass Index (BMI) 21.8 Intake & Output: Intake and Output for Last 24 Hours 07/22/25 07/23/25 07/24/25 23:59 23:59 23:59 Intake Total 1326.33 / 1326.33 3050 / 3050 1055 / 1055 Output Total 1335 / 1335 1050 / 1050 250 / 250 Balance -8.67 / -8.67 1999 805 / 805 Medical Nutrition Assessment Dietitian: Malnutrition Criteria Met Start: 07/22/25 17:19 Freq: Status: Active Protocol: Document 07/22/25 17:19 RMA (Rec: 07/22/25 17:19 RMA [id number]) Nutrition Malnutrition Evidence of Yes Malnutrition Exists Malnutrition (severe Chronic ): Evidenced By Suboptimal Energy Intake (Severe),Weight Loss (Severe) Clinical Problem Chronic Disease or Condition Related Malnutrition Etiology Severe protein-calorie malnutrition in the context of chronic disease related to inadequate energy intake and increased energy expenditure due to malignancy of pancreas Signs/Symptoms as evidenced by ~14% unintentional weight loss x 6 months and PO meeting less than 75% estimated nutrition needs x past 6 months; BMI 21.8 Status Active Problem Recommendation Dietitian Recommend advance diet as tolerated to liberalized Recommendations/ regular. Changes Will add 240mL chocolate CIB w/ 2 scoops of beneprotein at breakfast and dinner meal. Lab / Micro Data 07/22/25 05:18 07/22/25 05:18 Physical Exam Narrative alert, oriented x3, no apparent distress and average body habitus General Appearance: cooperative, well kempt and well developed Orientation / Consciousness: awake, oriented to person, oriented to place and oriented to time HEENT normocephalic, head/scalp atraumatic and moist oral mucous membranes Eyes PERRL, EOMs intact bilaterally and conjunctivae normal Neck supple, no JVD, thyroid normal and no carotid bruits General: trachea midline Resp normal respiratory effort, no retractions, no use of accessory muscles and clear to auscultation bilaterally Auscultation: Negative for rales, rhonchi or wheezes Cardio regular rate, regular rhythm, S1 normal heart sound, S2 normal heart sound, no murmurs, no rub and no gallops GI normal to inspection, nondistended, normoactive bowel sounds, soft to palpation, non-tender and non-distended Extremity no clubbing, cyanosis or edema Skin no rashes or lesions noted General Skin Exam: no breakdown Neuro oriented x3, CN's II-XII intact bilaterally, no focal motor deficits and no sensory deficits noted Sensorium / Orientation: awake and alert Speech: speech normal Psych affect normal Assessment & Plan Assessment/Plan (1) Closed fracture of left hip: PLAN: Plan 1. Intertrochanteric fracture of the left hip secondary to osteoporosis-postop day 2 intramedullary nail insertion-PT and OT will see the patient, we are currently awaiting word to see if the [facility] in [facility] will take the patient, most likely we will not hear from them until Saturday #2 pancreatic cancer-she is status post palliative radiation treatment-complicates care, management, recovery, and prognosis #3 chronic anxiety-patient is on Klonopin #4 hypothyroidism-patient is on Synthroid #5 pancreatic insufficiency-patient is on pancreatic enzymes supplementation chronically #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 meeting less than 75% of estimated nutritional needs times the past 6 months-diet was advanced to liberalize regular, and addition of 240 cc chocolate CIB with 2 scoops of Beneprotein at breakfast and dinner meal will be added Total clinical time spent by myself addressing patient's medical issues, reviewing all of her data, and collaborating with patient's care team: 35 minutes Charges/Coding Visit Charges Inpatient E&M: 19374 Subs Hosp L2
--- NOTE | 2025-07-24 15:52 | CASEMGMT ---
Social Work [facility]. SW re-referred pt to [facility], [facility] and TCU to see if a bed becomes available. SW to follow up on Saturday. BETTY Pineda
[2025-07-25] VITALS (7 sets, daily range): BP systolic 115–144; BP diastolic 68–91; PULSE 86–103; RESP 18–19; TEMP 36.6–36.9; O2SAT 93–95
[2025-07-25] MEDS: Polyethylene Glycol 3350 17 GM PACKET PO (08:06)
[2025-07-25] MEDS: Multivitamin (Healthy Eyes) Capsule 1 CAP PO ×2 (08:06→20:56)
[2025-07-25] MEDS: Creon 3,000 unit DR Capsule 1 CAP PO ×3 (08:07→16:46)
--- NOTE | 2025-07-25 09:13 | PN.HOSP_ITS ---
Reason for Visit Chief Complaint: Fall with left hip pain Subjective Subjective Patient was seen and examined today, with the pain from her surgery she has no specific complaints. I encouraged her to get up today and ambulate is much as possible. Objective Data Objective Data Vital Signs: Vital Signs Temp Pulse Resp BP Pulse Ox O2 Del Method O2 Flow Rate 97.9 F 93 18 139/85 H 93 Room Air 3 07/25/25 08:28 07/25/25 08:28 07/25/25 08:28 07/25/25 08:28 07/25/25 08:28 07/25/25 08:28 07/22/25 18:49 Oxygen Flow Rate (L/min) 3 Oxygen Delivery Method Room Air Weight: 50.712 kg Body Mass Index (BMI) 21.8 Intake & Output: Intake and Output for Last 24 Hours 07/23/25 07/24/25 07/25/25 23:59 23:59 23:59 Intake Total 3050 / 3050 3358.34 / 3358.34 1058.33 / 1058.33 Output Total 1050 / 1050 950 / 950 850 / 850 Balance 1999 / 1999 2408.34 / 2408.34 208.33 / 208.33 Medical Nutrition Assessment Dietitian: Malnutrition Criteria Met Start: 07/22/25 17:19 Freq: Status: Active Protocol: Document 07/22/25 17:19 RMA (Rec: 07/22/25 17:19 RMA [id number]) Nutrition Malnutrition Evidence of Yes Malnutrition Exists Malnutrition (severe Chronic ): Evidenced By Suboptimal Energy Intake (Severe),Weight Loss (Severe) Clinical Problem Chronic Disease or Condition Related Malnutrition Etiology Severe protein-calorie malnutrition in the context of chronic disease related to inadequate energy intake and increased energy expenditure due to malignancy of pancreas Signs/Symptoms as evidenced by ~14% unintentional weight loss x 6 months and PO meeting less than 75% estimated nutrition needs x past 6 months; BMI 21.8 Status Active Problem Recommendation Dietitian Recommend advance diet as tolerated to liberalized Recommendations/ regular. Changes Will add 240mL chocolate CIB w/ 2 scoops of beneprotein at breakfast and dinner meal. Lab / Micro Data 07/22/25 05:18 07/22/25 05:18 Physical Exam Narrative alert, oriented x3, no apparent distress and average body habitus General Appearance: cooperative, well kempt and well developed Orientation / Consciousness: awake, oriented to person, oriented to place and oriented to time HEENT normocephalic, head/scalp atraumatic and moist oral mucous membranes Eyes PERRL, EOMs intact bilaterally and conjunctivae normal Neck supple, no JVD, thyroid normal and no carotid bruits General: trachea midline Resp normal respiratory effort, no retractions, no use of accessory muscles and clear to auscultation bilaterally Auscultation: Negative for rales, rhonchi or wheezes Cardio regular rate, regular rhythm, S1 normal heart sound, S2 normal heart sound, no murmurs, no rub and no gallops GI normal to inspection, nondistended, normoactive bowel sounds, soft to palpation, non-tender and non-distended Extremity no clubbing, cyanosis or edema Skin no rashes or lesions noted General Skin Exam: no breakdown Neuro oriented x3, CN's II-XII intact bilaterally, no focal motor deficits and no sensory deficits noted Sensorium / Orientation: awake and alert Speech: speech normal Psych affect normal Assessment & Plan Assessment/Plan (1) Closed fracture of left hip: PLAN: Plan 1. Intertrochanteric fracture of the left hip secondary to osteoporosis-postop day 3 intramedullary nail insertion-PT and OT will see the patient, we are currently awaiting word to see if the [facility] in [facility] will take the patient, most likely we will not hear from them until Saturday, patient remains medically stable #2 pancreatic cancer-she is status post palliative radiation treatment- complicates care, management, recovery, and prognosis #3 chronic anxiety-patient is on Klonopin #4 hypothyroidism-patient is on Synthroid #5 pancreatic insufficiency-patient is on pancreatic enzymes supplementation chronically #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 meeting less than 75% of estimated nutritional needs times the past 6 months-diet was advanced to liberalize regular, and addition of 240 cc chocolate CIB with 2 scoops of Beneprotein at breakfast and dinner meal will be added Total clinical time spent by myself addressing patient's medical issues, reviewing all of her data, and collaborating with patient's care team: 35 minutes Charges/Coding Visit Charges Inpatient E&M: 69273 Subs Hosp L2
[2025-07-26 05:02] VITALS: BP 138/87; PULSE 93; RESP 18; TEMP 36.4; O2SAT 94
[2025-07-26 09:00] VITALS: RESP 18
[2025-07-26] MEDS: Multivitamin (Healthy Eyes) Capsule 1 CAP PO (09:06)
[2025-07-26] MEDS: Creon 3,000 unit DR Capsule 1 CAP PO ×2 (09:07→11:57)
[2025-07-26 09:22] VITALS: BP 123/76; PULSE 86; RESP 18; TEMP 36.9; O2SAT 93
[2025-07-26] MEDS: Albuterol 2.5 MG/3 ML VIAL.NEB. INHALATION (10:02)
[2025-07-26 10:03] VITALS: PULSE 89; RESP 18; O2SAT 93
--- NOTE | 2025-07-26 10:22 | CASEMGMT ---
Discharge Planning [facility] has accepted and pt wishes to proceed. SW updated. All other referrals cancelled. Precious Winters DC Planning Asst
--- NOTE | 2025-07-26 10:43 | CASEMGMT ---
Social Work Pt accepted in [facility], this is where pt would prefer to go. SW sent messages to all of the other facilities letting them know pt now has a place for rehab. SW notified physician, as [facility] would like pt to leave here by 3pm. SW also completed PAS/RR, PAS/RR w/results printed for SNF. No further review needed at this time. BETTY Pineda
--- NOTE | 2025-07-26 11:12 | TREXTCAR_ITS ---
Diet Diet Order/Speech Therapy: INPATIENT Hospital Diet / Speech Therapy Order(s) 07/22/25 19:10 Diet: Regular - General Type of Dietary Supplement:: Rebeca [place] Breakfast Diet Comments: 240mL chocolate CIB w/ 2 scoops of beneprotein at breakfast and dinner meal Routine Orders/Code Status Code Status: Full Code DC O2, CPAP, BIPAP needs Home O2 Discharge instructions: No Wound(s) left deltoid: Wound Type: Abrasion LEFT HIP: Wound Type: Surgical Incision LEFT LOWER LEG: Wound Type: Surgical Incision Therapies Weight Bearing: Full weight bearing Physical Therapy: Eval and Treat Occupational Therapy: Eval and Treat Problem/Diagnosis (1) Closed fracture of left hip: Status: Acute Code(s): S72.002A - Fracture of unspecified part of neck of left femur, initial encounter for closed fracture Plan 1. Intertrochanteric fracture of the left hip secondary to osteoporosis-postop day 4 intramedullary nail insertion-PT and OT will see the patient, we are currently awaiting word to see if the [facility] in [facility] will take the patient, most likely we will not hear from them until Saturday, patient remains medically stable #2 pancreatic cancer-she is status post palliative radiation treatment- complicates care, management, recovery, and prognosis #3 chronic anxiety-patient is on Klonopin #4 hypothyroidism-patient is on Synthroid #5 pancreatic insufficiency-patient is on pancreatic enzymes supplementation chronically #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 meeting less than 75% of estimated nutritional needs times the past 6 months-diet was advanced to liberalize regular, and addition of 240 cc chocolate CIB with 2 scoops of Beneprotein at breakfast and dinner meal will be added Total clinical time spent by myself addressing patient's medical issues, rev iewing all of her data, and collaborating with patient's care team: 35 minutes Allergies/Procedures Done in Hospital Allergies cocamidopropyl betaine Allergy (Intermediate, Verified 07/09/25 20:49) Rash Sulfa (Sulfonamide Antibiotics) Allergy (Verified 07/09/25 20:49) Swelling Environmental Allergies: Uncoded (dust) Adverse Reaction (Severe, Verified 07/09/25 20:49) NEEDS FOLLOW-UP mold Adverse Reaction (Severe, Verified 07/09/25 20:49) NEEDS FOLLOW-UP metoprolol Adverse Reaction (Intermediate, Verified 07/09/25 20:49) I feel awful codeine Adverse Reaction (Verified 07/09/25 20:49) Nausea diphenhydramine (From Benadryl) Adverse Reaction (Verified 07/09/25 20:49) Nausea hydrocodone bitartrate (From Vicodin) Adverse Reaction (Verified 07/09/25 20:49) Nausea oxycodone HCl (From Percocet) Adverse Reaction (Verified 07/09/25 20:49) Nausea tetracycline Adverse Reaction (Verified 07/09/25 20:49) Nausea/Vom/Diarrhea Procedures: - (insertion of intramedullary nail left hip 07/22/25) Type of Care/Length of Stay Estimated LOS: Convalescent Care Less Than 30 days Type of Care Needed: Skilled Rehab Potential: Good Prognosis: Good Additional Orders/Day of Discharge H&P will serve as current which was dated: 07/21/25 Day of Discharge: 07/26/25 Dietary and Speech Recommendations Dietitian Recommendations/Changes: Recommend advance diet as tolerated to liberalized regular. Will add 240mL chocolate CIB w/ 2 scoops of beneprotein at breakfast and dinner meal. Discharge Plan Admission Admit Date/Time: 07/21/25 19:28 Attending Provider: Jasen Murray Primary Care Provider: Anitra Hummel Consulting Providers: Hugh Muñoz; Cristino Zarate Discharge Orders/Prescriptions Prescriptions: New clonazepam 0.5 mg Tablet 0.5 mg PO BID PRN PRN (Reason: anxiety) Qty: 8 0RF tramadol 50 mg Tablet 50 mg PO Q6H PRN PRN (Reason: Pain Score 4-5) Qty: 12 0RF acetaminophen 500 mg Tablet 1,000 mg PO Q8 Qty: 1 0RF nortriptyline 10 mg Capsule 10 mg PO BID Qty: 0 0RF Ensure Surgery 0.08-1.4 gram-kcal/mL Liquid 237 ml PO TIDCM Qty: 0 0RF Xarelto 10 mg Tablet 10 mg PO DAILY@0600 Qty: 1 0RF Rx Instructions: continue for 32 doses Continued vit C,L-Yk-clxut-lutein-zeaxan [PreserVision AREDS-2] 132-202-16-1 ga-lein-tu-mg capsule 1 tab PO BID polyethylene glycol 3350 [Miralax] 17 gram/dose powder 17 g PO QDAY PRN (Reason: Constipation) levothyroxine 50 mcg tablet 75 mcg PO DAILY Patient Comments: 1.5 TABS SUN AND TH 1 TAB ALL OTHER DAYS (DME) CBD Oral (INFORMATIONAL USE ONLY-PT USES ORAL CBD) Oil See Rx Instructions .Route Rx Instructions: As directed levalbuterol tartrate 45 mcg/actuation HFA aerosol inhaler 2 puff inhalation Q4 PRN (Reason: shortness of breath or wheezing) ondansetron 8 mg tablet,disintegrating 8 mg PO Q12H PRN (Reason: nausea and vomiting) Qty: 30 0RF Creon 3,000-9,500- 15,000 unit capsule,delayed release(DR/EC) 1 cap PO TID Qty: 90 3RF Rx Instructions: do not exceed 10,000 unit/kg lipase per 24 hrs. with meals albuterol sulfate 1 INHALER inhaler 1 puff INHALATION Q4H PRN PRN (Reason: Wheezing) ropinirole 0.5 mg tablet 0.5 mg PO DAILY triamcinolone acetonide 0.1 % cream 1 applic topical DAILY PRN gabapentin 100 mg capsule 100 mg PO TID escitalopram oxalate 5 mg tablet 2.5 mg PO DAILY Discontinued propranolol 10 mg tablet 5 mg PO BID PRN (Reason: anxiety) acetaminophen 325 MG tablet 500 mg PO Q4H PRN PRN (Reason: Mild-Moderate Pain (1-5/10)) 0RF clonazepam 0.5 mg tablet 0.5 mg PO BID PRN PRN (Reason: anxiety) nortriptyline 10 mg capsule 20 mg PO QHS doxycycline hyclate 100 mg capsule 100 mg PO BID Rx Instructions: 3 doses left lorazepam 0.5 mg tablet 0.5 mg PO BID PRN (Reason: anxiety) Qty: 60 1RF Referrals / Follow Up: Anitra Hummel CNS [Primary Care Provider] - Hugh Muñoz MD [Med Staff - Active Staff] - See Referral Note (in two weeks- call for an appointment) Disposition Disposition (needs filled in before D/C Order can be placed): [facility] Facility
--- NOTE | 2025-07-26 11:29 | DS.PCM_ITS ---
Providers Date of Admission: 07/21/25 Date of Discharge: 07/26/25 Primary Care Physician: Anitra Hummel, [employer] PATH[employer] PROFESSOR Consultations 07/21/25 21:20 Consult: Orthopedics Routine Consulting Provider: Hugh Muñoz Reason for Consult: left femoral intertrochanteric fracture EMERGENT Consult: No MD Notified: Yes Date Notified: 07/21/25 Time Notified: 19:32 Method of Notification: Answering Service Reason For Visit: FALL WITH LEFT HIP FRACTURE Diagnosis Discharge Diagnosis (1) Closed fracture of left hip: Status: Acute Code(s): S72.002A - Fracture of unspecified part of neck of left femur, initial encounter for closed fracture Plan 1. Intertrochanteric fracture of the left hip secondary to osteoporosis-postop day 4 intramedullary nail insertion-PT and OT will see the patient, we are currently awaiting word to see if the [facility] in [facility] will take the patient, most likely we will not hear from them until Saturday, patient remains medically stable #2 pancreatic cancer-she is status post palliative radiation treatment- complicates care, management, recovery, and prognosis #3 chronic anxiety-patient is on Klonopin #4 hypothyroidism-patient is on Synthroid #5 pancreatic insufficiency-patient is on pancreatic enzymes supplementation chronically #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 meeting less than 75% of estimated nutritional needs times the past 6 months-diet was advanced to liberalize regular, and addition of 240 cc chocolate CIB with 2 scoops of Beneprotein at breakfast and dinner meal will be added Total clinical time spent by myself addressing patient's medical issues, reviewing all of her data, and collaborating with patient's care team: 35 minutes Medications at Discharge Home Medications albuterol sulfate 90 mcg/actuation aerosol inhaler 1 puff inhalation Q4H PRN PRN Wheezing 05/09/14 vit C 250 mg-vit E 90 mg-zinc 40 mg-copper 1 go-qpidri-rtrwgd capsule (PreserVision AREDS-2) 1 tab PO BID 11/22/17 polyethylene glycol 3350 17 gram/dose oral powder (Miralax) 17 g PO QDAY PRN Constipation 01/31/18 CBD Oral (INFORMATIONAL USE ONLY-PT USES ORAL CBD) 11/10/24 levalbuterol tartrate 45 mcg/actuation aerosol inhaler 2 puff inhalation Q4 PRN shortness of breath or wheezing 02/24/25 levothyroxine 50 mcg tablet 75 mcg PO DAILY 02/24/25 ropinirole 0.5 mg tablet 0.5 mg PO DAILY 02/24/25 ondansetron 8 mg disintegrating tablet 8 mg PO Q12H PRN nausea and vomiting #30 tabs 03/17/25 ywuzgz-ehsxnmso-kqlujgl 3,000-9,500-15,000 unit capsule, delayed rel (Creon) 1 cap PO TID #90 caps 06/09/25 escitalopram oxalate 5 mg tablet 2.5 mg PO DAILY 07/21/25 gabapentin 100 mg capsule 100 mg PO TID 07/21/25 triamcinolone acetonide 0.1 % topical cream 1 applic topical DAILY PRN 07/21/25 acetaminophen 500 mg tablet 1,000 mg (2 x 500 mg) PO Q8 #1 TAB 07/26/25 clonazepam 0.5 mg tablet 0.5 mg PO BID PRN PRN anxiety #8 tabs 07/26/25 nortriptyline 10 mg capsule 10 mg PO BID #0 caps 07/26/25 nut.tx.comp. immune systm,reg 0.08 gram-1.4 kcal/mL oral liquid (Ensure Surgery) 237 ml PO TIDCM #0 mL 07/26/25 rivaroxaban 10 mg tablet (Xarelto) 10 mg PO DAILY@0600 #1 TAB 07/26/25 tramadol 50 mg tablet 50 mg PO Q6H PRN PRN Pain Score 4-5 #12 tabs 07/26/25 Hospital Course Operations - (Insertion of intramedullary nail left hip fracture) Procedures None Summary of Care Provided Minutes Spent on Discharge: 31 Hospital Course: This 89-year-old white female was seen in the emergency room at [facility] with complaints of left hip pain after fall at home. Patient stated she tripped and fell into a car initially and then down to the ground and landed on her left hip. Workup in the emergency room included an x-ray of the left hip which showed a left femoral intertrochanteric fracture, case was discussed with orthopedics who agreed to see the patient in consultation after she was admitted to the hospital. Patient was admitted to [place] [id number] and seen in consultation by orthopedic surgery, he was taken to surgery and underwent insertion of intramedullary nail in the left hip for repair of the left hip fracture. Patient did well after her surgery, she was seen by PT and OT and it was recommended that she consider going to a longterm facility for short- term rehab services and she agreed. On 07/26/2025, patient was seen and examined: On examination she appeared in good health and spirits, she does not appear to be in any distress. Vital signs as documented. Skin warm and dry and without overt rashes. Neck without JVD, thyroid appears normal, trachea is midline, neck is supple. Lungs clear, normal air movement was noted. Heart exam notable for regular rhythm, normal sounds and absence of murmurs, rubs or gallops. Abdomen unremarkable and without evidence of organomegaly, masses, or abdominal aortic enlargement, bowel sounds are present in all 4 quadrants, no abdominal tenderness was noted. Extremities nonedematous, no cyanosis was noted, no clubbing was noted. Neuro: Cranial nerves II through XII are grossly intact, no focal motor deficits were noted, sensation to light touch and pinprick is intact, motor exam 5/5 throughout. Psych: Patient is alert and oriented x3, she does not appear anxious or depressed, she does not appear agitated. Patient appears to be stable for discharge to a longterm facility for short-term rehab services on 07/26/2025 Medical Records Data Medical Nutrition Assessment Dietitian: Malnutrition Criteria Met Start: 07/22/25 17:19 Freq: Status: Active Protocol: Document 07/22/25 17:19 RMA (Rec: 07/22/25 17:19 RMA [id number]) Nutrition Malnutrition Evidence of Yes Malnutrition Exists Malnutrition (severe Chronic ): Evidenced By Suboptimal Energy Intake (Severe),Weight Loss (Severe) Clinical Problem Chronic Disease or Condition Related Malnutrition Etiology Severe protein-calorie malnutrition in the context of chronic disease related to inadequate energy intake and increased energy expenditure due to malignancy of pancreas Signs/Symptoms as evidenced by ~14% unintentional weight loss x 6 months and PO meeting less than 75% estimated nutrition needs x past 6 months; BMI 21.8 Status Active Problem Recommendation Dietitian Recommend advance diet as tolerated to liberalized Recommendations/ regular. Changes Will add 240mL chocolate CIB w/ 2 scoops of beneprotein at breakfast and dinner meal. Weight / BMI Weight Weight: 50.712 kg Body Mass Index (BMI) 21.8 ABG / Lab / Microbiology Data 07/22/25 05:18 07/22/25 05:18 D/C Instructions DC O2, CPAP, BIPAP Needs Home O2 Discharge instructions: No Meaningful Use Info Meaningful Use Meaningful Use Diagnoses (Choose all that apply): None applicable Discharge Plan Admission Admit Date/Time: 07/21/25 19:28 Attending Provider: Jasen Murray Primary Care Provider: Anitra Hummel Consulting Providers: Hugh Muñoz; Cristino Zarate Discharge Orders/Prescriptions Prescriptions: New clonazepam 0.5 mg Tablet 0.5 mg PO BID PRN PRN (Reason: anxiety) Qty: 8 0RF tramadol 50 mg Tablet 50 mg PO Q6H PRN PRN (Reason: Pain Score 4-5) Qty: 12 0RF acetaminophen 500 mg Tablet 1,000 mg PO Q8 Qty: 1 0RF nortriptyline 10 mg Capsule 10 mg PO BID Qty: 0 0RF Ensure Surgery 0.08-1.4 gram-kcal/mL Liquid 237 ml PO TIDCM Qty: 0 0RF Xarelto 10 mg Tablet 10 mg PO DAILY@0600 Qty: 1 0RF Rx Instructions: continue for 32 doses Continued vit C,N-Po-wxwqn-lutein-zeaxan [PreserVision AREDS-2] 875-181-73-1 lr-rsbt-vx-mg capsule 1 tab PO BID polyethylene glycol 3350 [Miralax] 17 gram/dose powder 17 g PO QDAY PRN (Reason: Constipation) levothyroxine 50 mcg tablet 75 mcg PO DAILY Patient Comments: 1.5 TABS SUN AND TH 1 TAB ALL OTHER DAYS (DME) CBD Oral (INFORMATIONAL USE ONLY-PT USES ORAL CBD) Oil See Rx Instructions .Route Rx Instructions: As directed levalbuterol tartrate 45 mcg/actuation HFA aerosol inhaler 2 puff inhalation Q4 PRN (Reason: shortness of breath or wheezing) ondansetron 8 mg tablet,disintegrating 8 mg PO Q12H PRN (Reason: nausea and vomiting) Qty: 30 0RF Creon 3,000-9,500- 15,000 unit capsule,delayed release(DR/EC) 1 cap PO TID Qty: 90 3RF Rx Instructions: do not exceed 10,000 unit/kg lipase per 24 hrs. with meals albuterol sulfate 1 INHALER inhaler 1 puff INHALATION Q4H PRN PRN (Reason: Wheezing) ropinirole 0.5 mg tablet 0.5 mg PO DAILY triamcinolone acetonide 0.1 % cream 1 applic topical DAILY PRN gabapentin 100 mg capsule 100 mg PO TID escitalopram oxalate 5 mg tablet 2.5 mg PO DAILY Discontinued propranolol 10 mg tablet 5 mg PO BID PRN (Reason: anxiety) acetaminophen 325 MG tablet 500 mg PO Q4H PRN PRN (Reason: Mild-Moderate Pain (-04/10)) 0RF clonazepam 0.5 mg tablet 0.5 mg PO BID PRN PRN (Reason: anxiety) nortriptyline 10 mg capsule 20 mg PO QHS doxycycline hyclate 100 mg capsule 100 mg PO BID Rx Instructions: 3 doses left lorazepam 0.5 mg tablet 0.5 mg PO BID PRN (Reason: anxiety) Qty: 60 1RF Referrals / Follow Up: Anitra Hummel CNS [Primary Care Provider] - Hugh Muñoz MD [Med Staff - Active Staff] - See Referral Note (in two weeks- call for an appointment) Disposition Disposition (needs filled in before D/C Order can be placed): [facility] Facility Charges/Coding Visit Charges Inpatient E&M: 48387 Disch Hosp >30min
--- NOTE | 2025-07-26 11:36 | PHA.DC.MR.R ---
Pharmacy ID Med Reconciliation Pharmacy Service has performed discharge medication reconciliation for this patient. The patient's discharge medication list was reviewed for discrepancies and discrepancies were resolved. Medications at Discharge Home Medications albuterol sulfate 90 mcg/actuation aerosol inhaler 1 puff inhalation Q4H PRN PRN Wheezing 05/09/14 vit C 250 mg-vit E 90 mg-zinc 40 mg-copper 1 xd-uottdp-ipszre capsule (PreserVision AREDS-2) 1 tab PO BID 11/22/17 polyethylene glycol 3350 17 gram/dose oral powder (Miralax) 17 g PO QDAY PRN Constipation 01/31/18 CBD Oral (INFORMATIONAL USE ONLY-PT USES ORAL CBD) 11/10/24 levalbuterol tartrate 45 mcg/actuation aerosol inhaler 2 puff inhalation Q4 PRN shortness of breath or wheezing 02/24/25 levothyroxine 50 mcg tablet 75 mcg PO DAILY 02/24/25 ropinirole 0.5 mg tablet 0.5 mg PO DAILY 02/24/25 ondansetron 8 mg disintegrating tablet 8 mg PO Q12H PRN nausea and vomiting #30 tabs 03/17/25 ksbpjg-arzpnuxt-zvgymvq 3,000-9,500-15,000 unit capsule, delayed rel (Creon) 1 cap PO TID #90 caps 06/09/25 escitalopram oxalate 5 mg tablet 2.5 mg PO DAILY 07/21/25 gabapentin 100 mg capsule 100 mg PO TID 07/21/25 triamcinolone acetonide 0.1 % topical cream 1 applic topical DAILY PRN 07/21/25 acetaminophen 500 mg tablet 1,000 mg (2 x 500 mg) PO Q8 #1 TAB 07/26/25 clonazepam 0.5 mg tablet 0.5 mg PO BID PRN PRN anxiety #8 tabs 07/26/25 nortriptyline 10 mg capsule 10 mg PO BID #0 caps 07/26/25 nut.tx.comp. immune systm,reg 0.08 gram-1.4 kcal/mL oral liquid (Ensure Surgery) 237 ml PO TIDCM #0 mL 07/26/25 rivaroxaban 10 mg tablet (Xarelto) 10 mg PO DAILY@0600 #1 TAB 07/26/25 tramadol 50 mg tablet 50 mg PO Q6H PRN PRN Pain Score 4-5 #12 tabs 07/26/25
--- NOTE | 2025-07-26 12:04 | CASEMGMT ---
Discharge Planning A list of?HH providers including quality and resource use data and consistent with the patient's preferred geographic region, medical needs, and insurance network was created in [employer] Guide.? This list was provided to the SW. Precious Winters Discharge Planning Asst.
--- NOTE | 2025-07-26 12:45 | CASEMGMT ---
Discharge Planning Discharge orders, signed med list, and transport time sent to [facility]. Physicians will transport pt by wheelchair at 2p. Nursing, SW, pt, her , and her daughter (Gretchen) updated. Precious Winters DC Planning Asst.
[2025-07-26 13:18] VITALS: BP 124/76; PULSE 78; RESP 16; TEMP 36.3; O2SAT 96
--- NOTE | 2025-07-26 15:50 | CHAPLAIN ---
Type of Pastoral Visit ___ Initial Visit _x__ Follow-up Visit ___ On-call Visit ___ General Patient Visit ___ Spiritual Assessment ___ Family Conference ___ Bereavement ___ Rapid Response ___ Code Blue ___ Other (describe below) Pastoral Care Referral From _x__ Patient ___ Family ___ Nurse ___ Physician ___ Closet Builder ___ Physics Faculty Member ___ Other (describe below) Sacrament/Intervention _x__ Active listening ___ Anointing ___ Alevism ___ Bereavement ___ Communion _x__ Judith exploration ___ ___ Life review _x__ Prayer ___ Reconciliation ___ Sacrament of Sick _x__ Supportive presence ___ Wedding ___ Other (describe below) Pastoral Comments patient is sitting in chair and spouse and daughter are in the room; pt gives updates and acknowledges some improvements; pt states that she will be transferred today to another facility and that she is accepting of that although would prefer to be home sooner; pt requests a prayer; some life review given
== END 2025-07-26 17:10 | disposition skilled nursing facility (03) | DRG 480 ==
LOC: ED 17:39 → MS3 19:42
PROVIDERS: Specialist; Admitting Provider Hospitalist; Emergency Provider Emergency Medicine; PCP Clinical Nurse Specialist Adult Health; Visit Provider Internal Medicine
PROC: 0QS706Z Reposition Left Upper Femur with Intramedullary Internal Fixation Device, Open Approach (ICD-10-PCS; CPT 27245; principal; 2025-07-22 15:30)
DX: S72.142A Displaced intertrochanteric fracture of left femur, initial encounter for closed fracture (principal); E43 Unspecified severe protein-calorie malnutrition; C25.9 Malignant neoplasm of pancreas, unspecified; E03.9 Hypothyroidism, unspecified; F32.A Depression, unspecified; W19.XXXA Unspecified fall, initial encounter; F41.1 Generalized anxiety disorder; M81.0 Age-related osteoporosis without current pathological fracture; Z79.51 Long term (current) use of inhaled steroids; Z79.899 Other long term (current) drug therapy; Z68.24 Body mass index [BMI] 24.0-24.9, adult
CPT/HCPCS: 36415; 70450; 71045; 72125; 73502; 76000; 80048; 81001; 84443; 85025; 85027; 85610; 85730; 86850; 86900; 86901; 93005; 94640; 97116; 97162; 97165; 97530; 97535; 97802; 99285; C1776; A4216; J2405